=== PATIENT | female | born 1970 | race Caucasian/White ===

== ENCOUNTER → 2021-01-13 14:55 | Outpatient (BNVA) | payer MEDICARE, MEDICAID, SELFPAY | PROVIDERS: Family Provider Family Medicine; PCP Family Medicine; Visit Provider Nurse Practitioner Family | DX: M25.562 Pain in left knee (principal) | CPT/HCPCS: 73562 ==

== ENCOUNTER 2021-02-03 06:00 | Outpatient (RCR) | payer MEDICARE, MEDICAID, SELFPAY | END 2021-02-05 23:59 | disposition home or self-care (01) | LOC: SPT 06:00 | PROVIDERS: PCP Family Medicine; Referring Provider Nurse Practitioner Family; Visit Provider Nurse Practitioner Family | DX: R29.6 Repeated falls (principal) | CPT/HCPCS: 97110; 97161 ==

== ENCOUNTER 2021-05-20 12:23 | Outpatient (CLI) | payer MEDICARE, MEDICAID, SELFPAY ==
--- NOTE | 2021-05-20 12:35 | XR_ITS ---
WS: [id number] KUB, AP view, 05/20/2021 Clinical Data: STONE Comparison: KUB, 09/10/2019. Findings: No abnormal intraabdominal masses are seen. There is no dilatated small bowel or evidence of obstruct ion. There are numerous calcifications overlying the left kidney. Fecal material and colon gas obscure det ail over both kidneys. There are phleboliths in the true pelvis. There are clips in the right upper q uadrant from a cholecystectomy. XR/XR KUB [id number] Impression: 1. No change in calcifications overlying left kidney. 2. Moderate amount of fecal material throughout the colon.
== END 2021-05-20 12:24 | disposition home or self-care (01) ==
PROVIDERS: PCP Family Medicine; Visit Provider Nurse Practitioner Family
DX: N20.1 Calculus of ureter (principal); N20.2 Calculus of kidney with calculus of ureter
CPT/HCPCS: 74018; 81003; 87086

== ENCOUNTER 2021-11-29 19:36 | Inpatient (IN) | payer MEDICARE, MEDICAID, SELFPAY ==
[2021-11-29 19:39] VITALS: BP 102/79; PULSE 110; RESP 18; TEMP 39.5; O2SAT 96; BMI 28.3
--- NOTE | 2021-11-29 19:39 | XRR_ITS ---
PROCEDURE INFORMATION: Exam: XR Chest Exam date and time: 11/29/2021 7:39 PM Age: 51 years old Clinical indication: Pain; Chest pressure; Prior surgery; Surgery date: 6+ months; Surgery type: Pacer defibulator; Additional info: Cp TECHNIQUE: Imaging protocol: XR of the chest. Views: 1 view. COMPARISON: CR Chest 1 [place] [id number] 03/14/2019 2:43 PM FINDINGS: Tubes, catheters and devices: Pacemaker. Lungs: See Heart/Mediastinum finding. Pleural spaces: Unremarkable. No pleural effusion. No pneumothorax. Heart/Mediastinum: Cardiomegaly and mild pulmonary vascular congestion. Bones/joints: Unremarkable. XR/XR chest 1V portable [id number] IMPRESSION: Cardiomegaly and mild pulmonary vascular congestion.
--- NOTE | 2021-11-29 19:40 | ECG_ITS ---
[facility] Test Date: 2021-11-29 Pat Name: Elena Pulliam Department: Room: Gender: Female Inside Account Representative: : 1970 Requested By: Marc Mora Order Number: [id number] Arlette MD: Pola Ferrera M.D. Measurements Intervals [place] Rate: 104 P: 101 MI: 153 QRS: -71 QRSD: 138 T: 74 QT: 381 QTc: 503 Interpretive Statements SINUS TACHYCARDIA LEFT AXIS DEVIATION [QRS AXIS < -30] INTRAVENTRICULAR CONDUCTION DELAY [130+ ms QRS DURATION] Compared to ECG 03/14/2019 16:30:51 Sinus rhythm no longer present T-wave abnormality no longer present Electronically Signed On 11-29-2021 22:16:27 TRUCK WASHER by Pola Ferrera M.D. [id number]
[2021-11-29] MEDS: sodium chloride 0.9% 1,000 ML 999 ML IV ×2 (19:50→23:00)
[2021-11-29] MEDS: acetaminophen 500 mg Tablet 1000 MG PO (19:50)
--- NOTE | 2021-11-29 19:50 | W.ED.CHESTPA ---
HPI - Chest Pain General: Chief Complaint: Chest Pain Stated Complaint: CP Time Seen by Provider: 11/29/21 19:39 Source: patient and EMS Mode of arrival: EMS Limitations: no limitations History of Present Illness: 51-year-old female states that over the last 12 hours she been having a sharp pain in the center of her chest along with her upper abdomen. States been constant nature rates it a 6 out of 10 denies any shortness of breath denies any cough she does have a fever nurse checked a temp it was 103 but I did a recheck that was oral that was 100.7. She had no vomiting no diarrhea she denies any worsening improving factors. Associated symptoms: Reports abdominal pain, dyspnea and fever(s) Review of Systems Const: Reports: fever(s) and chills Eyes: Denies: blurry vision or eye discomfort ENMT: Denies: throat pain or dental pain Card: Reports: chest pain Resp: Reports: dyspnea GI: Reports: abdominal pain : Denies: dysuria Musc: Denies: neck pain or back pain Skin/Breast: Denies: rash Neuro: Denies: headache(s) Psych: Denies: depression Cedric/Lymph: Denies: easy bruising All/Imm: Denies: urticaria PFSH ED PFSH: Medical History CHF (congestive heart failure) HTN (hypertension) ICD (implantable cardioverter-defibrillator) battery depletion Renal stones Family History Father , AT AGE 77 CAD (coronary artery disease) Cancer lung cancer Mother , AT AGE 60 Cancer OVARIAN Social History Second hand smoke exposure: Yes Alcohol intake: never Lives independently: Yes Marital status: service: No Current occupational status: disabled History of recent travel: No Current gender identity: Female Physical Exam Const: COMMON NORMALS: no acute distress, patient oriented x3 and healthy appearing HENMT: COMMON NORMALS: normocephalic and atraumatic HEAD & SCALP: normocephalic and atraumatic Eye: COMMON NORMALS: Equal, round and reactive pupils present and EOMs intact bilaterally PUPIL: Yes Equal, round and reactive pupils present Neck/C-Spine: COMMON NORMALS: full ROM and supple Chest: COMMONS NORMALS: normal inspection of the chest and normal palpation of entire chest wall Resp: COMMON NORMALS: normal respiratory effort, No retractions, No use of accessory muscles and clear to auscultation bilaterally AUSCULTATION: clear to auscultation bilaterally Cardio: COMMON NORMALS: regular rate, regular rhythm and No murmurs present (Cardio) RATE: regular rate RHYTHM: regular rhythm GI: COMMON NORMALS: Normal to inspection, nondistended, normoactive bowel sounds present, Soft to palpation, non-tender and no masses PALPATION: Yes Soft to palpation Extremity: COMMON NORMALS: normal to inspection and full ROM Neuro: COMMON NORMALS: patient oriented x3, moves all extremities and no focal motor deficits Psych: COMMON NORMALS: mental status grossly normal, Normal thought process present and cooperative THOUGHT PROCESS: Normal thought process present Skin: COMMON NORMALS: no rashes or lesions noted and no wounds GENERAL SKIN EXAM: no rashes or lesions noted Course Vital Signs: Vital signs: Vital Signs Temperature 100.7 F H 11/29/21 20:09 Pulse Rate 92 11/29/21 22:35 Respiratory Rate 16 11/29/21 22:35 Blood Pressure 96/46 11/29/21 22:35 Pulse Oximetry 96 11/29/21 22:35 MDM - Chest Pain Medical Decision Making Kidney stones with hydronephrosis in the left ureter along with acute cystitis. Patient's blood pressure here been stable I spoke to Dr. Austin who is taken the patient to the OR for stent placement patient admitted to Dr. Dejesus. Lab Data : 11/29/21 19:45 11/29/21 19:45 Radiology Impressions Chest X-Ray 11/29/21 19:39 IMPRESSION: Cardiomegaly and mild pulmonary vascular congestion. Abdomen/Pelvis CT 11/29/21 20:58 IMPRESSION: 1. Numerous stacked left ureteral stones resulting in hydroureteronephrosis. 2. Vague indeterminate liver lesion is new from comparison. There may be focal capsular retraction at the site of lesion. Malignant lesion cannot be excluded. 3. Recommend contrast enhanced MRI liver correlation. Laboratory Results WBC 12.8 10^3/uL (4.0-10.0) H 11/29/21 19:45 RBC 3.39 10^6/uL (4.1-5.3) L 11/29/21 19:45 Hgb 12.0 g/dL (11.5-15.3) 11/29/21 19:45 Hct 35.5 % (37.0-47.0) L 11/29/21 19:45 MCV 104.7 fl (81-99) H 11/29/21 19:45 MCH 35.4 pg (28.0-34.0) H 11/29/21 19:45 MCHC 33.8 g/dL (30.0-36.0) 11/29/21 19:45 RDW 12.6 % (12.1-15.1) 11/29/21 19:45 Plt Count 177 10^3/cmm (130-400) 11/29/21 19:45 MPV 11.2 fL (7.4-10.4) H 11/29/21 19:45 Neut % (Auto) 78.3 % 11/29/21 19:45 Lymph % (Auto) 12.6 % 11/29/21 19:45 [place] % (Auto) 7.3 % 11/29/21 19:45 Eos % (Auto) 0.7 % 11/29/21 19:45 Baso % (Auto) 0.4 % 11/29/21 19:45 Neut # (Auto) 10.05 10^3/uL (1.8-7.7) H 11/29/21 19:45 Lymph # (Auto) 1.6 10^3/uL (0.8-4.8) 11/29/21 19:45 [place] # (Auto) 0.9 10^3/uL (0.2-0.9) 11/29/21 19:45 Eos # (Auto) 0.1 10^3/uL (0.0-0.8) 11/29/21 19:45 Baso # (Auto) 0.1 10^3/uL (0.0-0.1) 11/29/21 19:45 Nucleated RBC % (auto) 0 % 11/29/21 19:45 Nucleated RBCs # 0.0 /100WBC 11/29/21 19:45 Sodium 138 mmol/L (136-145) 11/29/21 19:45 Potassium 3.9 mmol/L (3.5-5.1) 11/29/21 19:45 Chloride 105 mmol/L (98-107) 11/29/21 19:45 Carbon Dioxide 19 mmol/L (22-29) L 11/29/21 19:45 Anion Gap 17.9 (5-19) 11/29/21 19:45 BUN 10 mg/dL (6-20) 11/29/21 19:45 Creatinine 0.7 mg/dL (0.5-0.9) 11/29/21 19:45 GFR Calculation 88.2 mL/min (90-130) L 11/29/21 19:45 Glucose 96 mg/dL (65-115) 11/29/21 19:45 Calculated Osmolality 285 mOsm/kg (285-295) 11/29/21 19:45 Lactate 1.5 mmol/L (0.5-2.2) 11/29/21 19:45 Calcium 8.8 mg/dL (8.5-10.5) 11/29/21 19:45 Total Bilirubin 0.5 mg/dL (0.15-1.2) 11/29/21 19:45 AST 13 U/L (0-32) 11/29/21 19:45 ALT 15 U/L (0-33) 11/29/21 19:45 Alkaline Phosphatase 82 IU/L (35-105) 11/29/21 19:45 Troponin T Baseline 8 ng/L (0-10) 11/29/21 19:45 Troponin T 120 Minute 6.61 ng/L (0-10) 11/29/21 21:29 Delta Troponin T -1.39 ABS# (0-10) L 11/29/21 21:29 Total Protein 6.4 g/dL (6.6-8.7) L 11/29/21 19:45 Albumin 4.1 g/dL (3.5-5.2) 11/29/21 19:45 Globulin 2.3 g/dL (1.3-4.6) 11/29/21 19:45 Lipase 21 U/L (13-60) 11/29/21 19:45 Lipase Cancelled 11/29/21 19:45 Urine Color Yellow (Yellow) 11/29/21 21:10 Urine Appearance Hazy (CLEAR) A 11/29/21 21:10 Urine pH 5 (5-7) 11/29/21 21:10 Ur Specific [place] 1.015 (1.005-1.030) 11/29/21 21:10 Urine Protein Neg (Negative) 11/29/21 21:10 Urine Glucose (UA) Norm (Normal) 11/29/21 21:10 Urine Ketones Negative (Negative) 11/29/21 21:10 Urine Blood 3+ (Negative) H 11/29/21 21:10 Urine Nitrate Negative (Negative) 11/29/21 21:10 Urine Bilirubin Neg (Negative) 11/29/21 21:10 Urine Urobilinogen Norm mg/dL (Negative) 11/29/21 21:10 Ur Leukocyte Esterase 2+ (Negative) H 11/29/21 21:10 Urine RBC 25-40 /hpf (0-2) H 11/29/21 21:10 Urine WBC Too numerous to cnt /hpf (0-5) H 11/29/21 21:10 Ur Squamous Epith Cells 25-40 /hpf (0-5) H 11/29/21 21:10 Amorphous Sediment Not Reportable 11/29/21 21:10 Urine Bacteria 2+ /hpf (NONE) H 11/29/21 21:10 SARS-CoV-2 Ag (Rapid) Negative (Negative) 11/29/21 19:55 EKG Data EKG 1: I personally reviewed and interpreted this EKG as follows: EKG interpretation date: 11/29/21 EKG interpretation time: 19:44 Interpretation: sinus tach hr [address] or t wave abnormalities qrs 138 qtc 442 EKG 2: I personally reviewed and interpreted this EKG as follows: EKG interpretation date: 11/29/21 EKG interpretation time: :22 Interpretation: nsr hr [address] or t wave abnormalities qrs 132 qtc 464 Discharge Plan Discharge Patient Disposition: Admitted As Inpatient Clinical Impression: Acute cystitis, Kidney stone, Chest pain Condition: Stable Coding Level of Care Code ED Education And Training Manager for Chg Fwd Exam Comprehensive
[2021-11-29 19:57] LABS: Basophils # 0.1 10^3/uL (0.0-0.1); Basophils % 0.4 %; Eosinophils # 0.1 10^3/uL (0.0-0.8); Eosinophils % 0.7 %; Hematocrit 35.5 % (37.0-47.0); Lymphocytes # 1.6 10^3/uL (0.8-4.8); Lymphocytes % 12.6 %; Mean Corpuscular HGB Conc 33.8 g/dL (30.0-36.0); Mean Corpuscular Hemoglobin 35.4 pg (28.0-34.0); Mean Corpuscular Volume 104.7 fl (81-99); Mean Platelet Volume 11.2 fL (7.4-10.4); Monocytes # 0.9 10^3/uL (0.2-0.9); Monocytes % 7.3 %; Neutrophils # 10.05 10^3/uL (1.8-7.7); Neutrophils % 78.3 %; Nucleated Red Blood Cells % 0 %; Platelet Count 177 10^3/cmm (130-400); Red Blood Count 3.39 10^6/uL (4.1-5.3); Red Cell Distribution Width 12.6 % (12.1-15.1); White Blood Count 12.8 10^3/uL (4.0-10.0)
[2021-11-29 20:09] VITALS: BP 104/67; PULSE 99; RESP 14; TEMP 38.2; O2SAT 92
--- NOTE | 2021-11-29 20:10 | PC.NURSE ---
I have placed bedside commode and urine specimen collection cup in room. Pt. states that she will let me know when she can go .
[2021-11-29 20:16] LABS: Lactate (Lactic Acid level) 1.5 mmol/L (0.5-2.2)
[2021-11-29 20:17] LABS: Alanine Aminotransferase 15 U/L (0-33); Albumin Level 4.1 g/dL (3.5-5.2); Alkaline Phosphatase 82 IU/L (35-105); Anion Gap 17.9 (5-19); Aspartate Amino Transferase 13 U/L (0-32); Blood Urea Nitrogen 10 mg/dL (6-20); Calcium 8.8 mg/dL (8.5-10.5); Carbon Dioxide 19 mmol/L (22-29); Chloride 105 mmol/L (98-107); Globulin 2.3 g/dL (1.3-4.6); Glomerular Filtration Rate 88.2 mL/min (90-130); Glucose 96 mg/dL (65-115); Lipase 21 U/L (13-60); Osmolality Calculated 285 mOsm/kg (285-295); Potassium 3.9 mmol/L (3.5-5.1); Sodium 138 mmol/L (136-145); Total Bilirubin 0.5 mg/dL (0.15-1.2); Total Protein 6.4 g/dL (6.6-8.7)
[2021-11-29 20:22] LABS: SARS Covid-2 Antigen Negative (Negative)
[2021-11-29 20:24] LABS: Troponin(5th) Baseline 8 ng/L (0-10)
--- NOTE | 2021-11-29 20:58 | CTR_ITS ---
PROCEDURE INFORMATION: Exam: CT Abdomen And Pelvis With Contrast Exam date and time: 11/29/2021 8:58 PM Age: 51 years old Clinical indication: Abdominal pain; Localized; Lower; Prior surgery; Surgery type: Gb; Additional info: Abd pain TECHNIQUE: Imaging protocol: Computed tomography of the abdomen and pelvis with contrast. Radiation optimization: All CT scans at this facility use at least one of these dose optimization techniques: automated exposure control; mA and/or kV adjustment per patient size (includes targeted exams where dose is matched to clinical indication); or iterative reconstruction. Contrast material: OMNI 300; Contrast volume: 95 ml; Contrast route: INTRAVENOUS (IV); COMPARISON: [place] Abdomen/[place] o [id number] 08/01/2018 1:51 PM RADIATION DOSE METRICS: Total DLP (mGy-cm): 1677.75 FINDINGS: Tubes, catheters and devices: Cardiac leads in the right heart chambers. Liver: In the right posterior liver there is a vague subcapsular low-attenuation lesion new from prior which measures 3.1 cm x 2.9 cm on axial series 2, image 22. Gallbladder and bile ducts: Cholecystectomy. Nondilated biliary system. Pancreas: Normal. No ductal dilation. Spleen: Normal. No splenomegaly. Adrenal glands: Normal. No mass. Kidneys and ureters: Atrophic renal parenchymal changes bilaterally. Left-sided hydroureteronephrosis is present. There are numerous stones stacked in the proximal left ureter conspicuous on coronal image 28. Stomach and bowel: Unremarkable. No obstruction. No mucosal thickening. Appendix: No evidence of appendicitis. Intraperitoneal space: Unremarkable. No free air. No significant fluid collection. Vasculature: Diffuse atherosclerosis. No aneurysm. Lymph nodes: Unremarkable. No enlarged lymph nodes. Urinary bladder: Unremarkable as visualized. Reproductive: Unremarkable as visualized. Bones/joints: Unremarkable. No acute fracture. Soft tissues: Unremarkable. CT/CT abdomen pelvis w con* [id number] IMPRESSION: 1. Numerous stacked left ureteral stones resulting in hydroureteronephrosis. 2. Vague indeterminate liver lesion is new from comparison. There may be focal capsular retraction at the site of lesion. Malignant lesion cannot be excluded. 3. Recommend contrast enhanced MRI liver correlation.
[2021-11-29 21:11] VITALS: PULSE 99; RESP 17; O2SAT 96
[2021-11-29 21:25] LABS: Add Urine Microscopic? YES; Bilirubin Urine Neg (Negative); Blood Urine 3+ (Negative); Glucose Urine UA Norm (Normal); Ketones Urine Negative (Negative); Leukocyte Esterase Urine 2+ (Negative); Nitrate Urine Negative (Negative); Protein Urine Neg (Negative); RBC Urine 25-40 /hpf (0-2); Specific Gravity, Urine 1.015 (1.005-1.030); Squamous Epithelial Cell Urine 25-40 /hpf (0-5); Urine Appearance Hazy (CLEAR); Urine Color Yellow (Yellow); Urobilinogen Urine Norm (Negative); WBC Urine TOO NUMEROUS TO CNT /hpf (0-5); pH Urine 5 (5-7)
[2021-11-29 21:26] LABS: Add Urine Culture? No; Bacteria Urine 2+ /hpf
[2021-11-29] MEDS: iohexol 300 mg/mL 100 mL Btl IV (21:33)
--- NOTE | 2021-11-29 21:40 | ECG_ITS ---
[facility] Test Date: 2021-11-29 Pat Name: Elena Pulliam Department: Room: Gender: Female Model Maker Plaster: : 1970 Requested By: Marc Mora Order Number: [id number] Arlette MD: Pola Ferrera M.D. Measurements Intervals [place] Rate: 97 P: 66 PA: 148 QRS: -65 QRSD: 132 T: 76 QT: 409 QTc: 522 Interpretive Statements SINUS RHYTHM INTRAVENTRICULAR CONDUCTION DELAY [130+ ms QRS DURATION] Compared to ECG 11/29/2021 19:44:45 Sinus tachycardia no longer present Left-axis deviation no longer present Electronically Signed On 11-29-2021 22:19:03 HIDE AND SKIN CLASSER by Pola Ferrera M.D. [id number]
[2021-11-29 21:54] LABS: Troponin 5 2HR 6.61 ng/L (0-10)
[2021-11-29 21:55] LABS: Troponin 5 2HR Delta -1.39 ABS# (0-10)
[2021-11-29] MEDS: cefTRIAXone 1,000 MG in sodium chloride 0.9% (plus) 50 ML 100 MG IV (22:22)
[2021-11-29 22:35] VITALS: BP 96/46; PULSE 92; RESP 16; O2SAT 96
[2021-11-29 23:22] VITALS: BP 103/57; PULSE 91; RESP 18; O2SAT 93
--- NOTE | 2021-11-29 23:25 | PM.CONSULT ---
Providers/Reason For Consult Consulting Physician/Specialty*: Austin/urology Reason for Consult*: Obstructive pyelonephritis, multiple left ureteral calculi Requesting Physician: Dr. Dejesus Primary Care Provider: Elena Gray MD History of Present Illness History of Present Illness Elena Pulliam is a 51 year old female well-known to me for history of stones as well as recurrent UTIs. Her last office visit was May 2021. She failed to keep her June scheduled visit. She was known to have multiple left renal calculi. There was no evidence of ureteral calculi at that time. Urine was infected and she was placed on Bactrim. Culture was equivocal. Was scheduled to follow-up in 2 weeks but failed to do so. Presented to the emergency tonight with complaints of onset of left flank pain and chest pain beginning today. Was found to have a fever >103. Work-up in the emergency department showed evidence of UTI, CT scan showing row of stones in the left mid ureter with obstructive change. White count was elevated. Blood pressure was on the low side of normotensive. Complained of typical left flank pain consistent with stone. Also is having rigors and chills She is being admitted emergently to the operating room for cystoscopy and left ureteral stent placement. I was consulted for stent placement. She has additional comorbidities: CHF, hypertension, cardiomyopathy, status post placement of ICD, recurrent urolithiasis and UTIs. Review of Systems Const: Reports: fever(s), chills and malaise Eyes: Denies: change in vision or eye discharge ENMT: Denies: hoarseness Card: Reports: chest pain; Denies: palpitations Resp: Denies: dyspnea or productive cough GI: Reports: abdominal pain, nausea, vomiting, constipation and bloating : Reports: flank pain and dysuria Musc: Denies: joint redness or joint warmth Skin/Breast: Denies: rash or skin tenderness Neuro: Denies: confusion, Slurred speech present or seizure-like activity Psych: Reports: anxiety Endo: Denies: flushing All/Imm: Denies: urticaria or acute wheezing Medications/Allergies Home Medications Medication Instructions Recorded Confirmed Last Taken Type citalopram 40 mg tablet 40 mg PO BEDTIME 01/31/20 11/30/21 Unknown History zolpidem 10 mg tablet 10 mg PO BEDTIME tab 01/31/20 11/30/21 Unknown History carvedilol 25 mg tablet 50 mg PO BID #360 tab 01/04/21 11/30/21 Unknown Rx aspirin 81 mg tablet,delayed 162 mg PO QAM tab 01/20/21 11/30/21 Unknown History release (Adult Low Dose Aspirin) isosorbide mononitrate 30 mg 15 mg PO BID #90 tab 01/20/21 11/30/21 Unknown Rx tablet,extended release 24 hr nitroglycerin 0.4 mg sublingual 0.4 mg SUBLINGUAL Q5M PRN #25 tab 01/20/21 11/30/21 Unknown Rx tablet (Nitrostat) ferrous sulfate 325 mg (65 mg 325 mg PO QAM 07/22/21 11/30/21 Unknown History iron) tablet spironolactone 25 mg tablet 12.5 mg PO DAILY #30 tab 11/08/21 11/30/21 Unknown Rx cyanocobalamin (vitamin B-12) 50 50 mcg PO QAM 11/30/21 11/30/21 Unknown History mcg tablet (Vitamin B-12) furosemide 20 mg tablet (Lasix) 10 mg PO DAILY PRN 11/30/21 11/30/21 Unknown History hydrocodone 5 mg-acetaminophen 325 1 tab PO QID PRN 11/30/21 11/30/21 Unknown History mg tablet levalbuterol tartrate 45 2 inh INHALATION Q6H PRN 11/30/21 11/30/21 Unknown History mcg/actuation aerosol inhaler lisinopril 20 mg tablet 20 mg PO BID 11/30/21 11/30/21 Unknown History montelukast 10 mg tablet 10 mg PO QAM 11/30/21 11/30/21 Unknown History tamsulosin 0.4 mg capsule 0.4 mg PO BEDTIME 11/30/21 11/30/21 Unknown History Allergies Allergy/AdvReac Type Severity Reaction Status Date / Time egg Allergy unknown Verified 11/30/21 13:16 morphine Allergy Unknown Verified 11/30/21 13:16 Opioids - Morphine Analogues Allergy unknown Verified 07/22/21 13:57 Current Medications Generic Name Dose Route Start Last Admin Trade Name Freq PRN Reason Stop Dose Admin Sodium Chloride 1,000 mls @ 999 mls/hr 11/29/21 22:53 11/29/21 23:00 Sodium Chloride 0.9% IV 11/29/21 23:53 999 mls/hr .Q1H1M ONE Administration PFSH Acute PFSH: Medical History (Updated 11/30/21 @ 07:13 by Beryl Dejesus MD) Calculus of kidney with calculus of ureter CHF (congestive heart failure) History of TIA (transient ischemic attack) HTN (hypertension) ICD (implantable cardioverter-defibrillator) battery depletion Obstructive pyelonephritis Renal mass Renal stones Ureteral calculus Surgical History (Updated 11/30/21 @ 07:13 by Beryl Dejesus MD) Status post cholecystectomy Status post placement of cardiac pacemaker Family History Father , AT AGE 77 CAD (coronary artery disease) Cancer lung cancer Mother , AT AGE 60 Cancer OVARIAN Social History Second hand smoke exposure: Yes Alcohol intake: never Lives independently: Yes Marital status: service: No Current occupational status: disabled History of recent travel: No Current gender identity: Female Vitals/I&O/Wt Last Vital Signs Temp 100.7 F H 11/29/21 20:09 Pulse 91 11/29/21 23:22 Resp 18 11/29/21 23:22 BP 103/57 11/29/21 23:22 Pulse Ox 93 11/29/21 23:22 11/29/21 11/29/21 11/30/21 14:59 22:59 06:59 Intake Total 1050 / 1050 Balance 1050 / 1050 Weight last 48 hrs Weight 170 lb Physical Exam Const: COMMON NORMALS: patient oriented x3; apparent distress and negative for healthy appearing OTHER: Appears quite uncomfortable. Shaking with chills. HENMT: COMMON NORMALS: normocephalic and atraumatic HEAD & SCALP: normocephalic and atraumatic Eye: COMMON NORMALS: conjunctivae normal and negative for no scleral icterus CONJUNCTIVA: Yes conjunctivae normal Neck/C-Spine: OTHER: Good range of motion Lymph: OTHER: No lymphadenopathy Resp: OTHER: No wheezes GI: OTHER: Abdomen is not distended tender in left upper quadrant left CVA : OTHER: Bladder nondistended. Left CVA tenderness. Normal external female genitalia no obvious discharge. No lesions Back/Pelvis: OTHER: Left CVA tenderness Extremity: NARRATIVE EXTREMITY EXAM: Good range of motion Neuro: COMMON NORMALS: patient oriented x3 Psych: OTHER: Anxiety. Engaged, calm Skin: OTHER: Multiple tattoos. No jaundice. No rashes Data : 12/01/21 02:13 12/01/21 02:13 Micro: Microbiology 11/29/21 21:29 Blood Culture - Preliminary Blood SPECIMEN COLLECTED 11/29/21 19:45 Blood Culture - Preliminary Blood SPECIMEN COLLECTED A&P Assessment and plan (1) Left ureteral calculus: Multiple stones left mid ureter. Obstructive changes on CT scan. Infected urine. To the OR emergently. Informed consent obtained. Status: Acute (2) Obstructive pyelonephritis: Elevated white count, pyuria, fever of 103+, low normal blood pressure. Status: Acute (3) Pyuria: Status: Acute (4) Cardiomyopathy: Status: Acute Qualifiers: Cardiomyopathy type: other Qualified Code(s): I42.8 - Other cardiomyopathies (5) HTN (hypertension): Status: Acute Qualifiers: Hypertension type: essential hypertension Qualified Code(s): I10 - Essential (primary) hypertension (6) CHF (congestive heart failure): Status: Acute Qualifiers: Heart failure chronicity: chronic Heart failure type: diastolic Qualified Code(s): I50.32 - Chronic diastolic (congestive) heart failure (7) ICD (implantable cardioverter-defibrillator) battery depletion: Status: Acute Coding Level of Care Code Acute Refrigeration Service Technician for Chg Fwd Exam Expanded Problem Focused Diagnoses Pyuria R82.81 Obstructive pyelonephritis N11.1 Cardiomyopathy I42.8 Cardiomyopathy type: other HTN (hypertension) I10 Hypertension type: essential hypertension CHF (congestive heart failure) I50.32 Heart failure chronicity: chronic Heart failure type: diastolic ICD (implantable cardioverter-defibrillator) battery depletion Z45.02 Left ureteral calculus N20.1
[2021-11-29] MEDS: HYDROmorphone 1 mg/mL INJ 1 mL IVP (23:41)
--- NOTE | 2021-11-29 23:46 | P.ANESASSM_ITS ---
Pre-Anesthetic Assessment Height/Weight: Height 1.65 m Weight 77.111 kg Temp Pulse Resp BP Pulse Ox 100.7 F H 91 18 103/57 93 11/29/21 20:09 11/29/21 23:22 11/29/21 23:22 11/29/21 23:22 11/29/21 23:22 Preop Diagnosis: ureteral stones Operation Date: 11/29/21 23:35 Proposed Procedures p Cystoscopy(Not Applicable) - Phillip Austin MD s Ureteral Stent Placement(Not Applicable) - Phillip Austin MD Familial anesthetic complications: None Was Beta Grady taken within 24 hours: Yes Was Clonidine taken within 24 hours: N/A Last intake: No food or drink since 0800, had sip of water w/ tylenol Social Tobacco and No alcohol Exam alert, oriented x 3, clear to auscultation bilaterally and regular rate & rhythm (tachycardic) Airway Mallampati: Class II Dentition: other (multiple missing) CV/HEM Hypertension ICD for EF of 20%, most recently EF of 55%, will have magnet available for placement over ICD if electrocautery used GERRI GI Gastroesophageal Reflux Disease Neuropsych Transient Ischemic Attack Anesthetic Plan ASA status: 3E Anesthesia: General Medications/Allergies Home Medications Medication Instructions Recorded Confirmed Last Taken Type citalopram 40 mg tablet 40 mg PO DAILY 01/31/20 07/22/21 Unknown History furosemide 40 mg tablet (Lasix) 40 mg PO DAILY PRN 01/31/20 07/22/21 Unknown History omeprazole 40 mg capsule,delayed 40 mg PO DAILY 01/31/20 07/22/21 Unknown History release zolpidem 10 mg tablet 10 mg PO DAILY tab 01/31/20 07/22/21 Unknown History carvedilol 25 mg tablet 50 mg PO BID #360 tab 01/04/21 07/22/21 Unknown Rx aspirin 81 mg tablet,delayed 162 mg PO DAILY tab 01/20/21 07/22/21 Unknown History release (Adult Low Dose Aspirin) isosorbide mononitrate 30 mg 15 mg PO BID #90 tab 01/20/21 07/22/21 Unknown Rx tablet,extended release 24 hr nitroglycerin 0.4 mg sublingual 0.4 mg SUBLINGUAL Q5M PRN #25 tab 01/20/21 07/22/21 Unknown Rx tablet (Nitrostat) sulfamethoxazole 800 1 tab PO BID #30 tab 05/20/21 05/20/21 Unknown Rx mg-trimethoprim 160 mg tablet ferrous sulfate 325 mg (65 mg 325 mg PO DAILY 07/22/21 07/22/21 Unknown History iron) tablet vitamin B complex (B 1 tab PO DAILY 07/22/21 07/22/21 Unknown History Complex-Vitamin B12) lisinopril 20 mg tablet See Rx Instructions .ROUTE 11/03/21 Unknown Rx .COMPLEX #180 tab tamsulosin 0.4 mg capsule See Rx Instructions .ROUTE 11/04/21 Unknown Rx .COMPLEX #30 cap spironolactone 25 mg tablet 12.5 mg PO DAILY #30 tab 11/08/21 Unknown Rx Allergies Allergy/AdvReac Type Severity Reaction Status Date / Time egg Allergy unknown Verified 07/22/21 13:57 Opioids - Morphine Analogues Allergy unknown Verified 07/22/21 13:57 Current Medications Generic Name Dose Route Start Last Admin Trade Name Freq PRN Reason Stop Dose Admin Sodium Chloride 1,000 mls @ 999 mls/hr 11/29/21 22:53 11/29/21 23:42 Sodium Chloride 0.9% IV 11/29/21 23:53 Infused .Q1H1M ONE Infusion PFSH Anesthesia Medical History (Updated 11/29/21 @ 23:43 by Phillip Austin MD) CHF (congestive heart failure) HTN (hypertension) ICD (implantable cardioverter-defibrillator) battery depletion Obstructive pyelonephritis Renal stones Ureteral calculus Family History Father , AT AGE 77 CAD (coronary artery disease) Cancer lung cancer Mother , AT AGE 60 Cancer OVARIAN Social History Second hand smoke exposure: Yes Alcohol intake: never Lives independently: Yes Marital status: service: No Current occupational status: disabled History of recent travel: No Current gender identity: Female Data Anesthesia : 11/29/21 19:45 11/29/21 19:45 Short CBC 11/29/21 Range/Units 19:45 WBC 12.8 H (4.0-10.0) 10^3/uL Hgb 12.0 (11.5-15.3) g/dL Hct 35.5 L (37.0-47.0) % MCV 104.7 H (81-99) fl Plt Count 177 (130-400) 10^3/cmm Neut % (Auto) 78.3 % Neut # (Auto) 10.05 H (1.8-7.7) 10^3/uL BMP 11/29/21 19:45 Sodium 138 Potassium 3.9 Chloride 105 Carbon Dioxide 19 L BUN 10 Creatinine 0.7 Glucose 96 Calcium 8.8 Cardiac Enzymes 11/29/21 11/29/21 Range/Units 19:45 21:29 Troponin T Baseline 8 (0-10) ng/L Troponin T 120 Minute 6.61 (0-10) ng/L Delta Troponin T -1.39 L (0-10) ABS# Liver Function 11/29/21 Range/Units 19:45 Total Bilirubin 0.5 (0.15-1.2) mg/dL AST 13 (0-32) U/L ALT 15 (0-33) U/L Alkaline Phosphatase 82 (35-105) IU/L Albumin 4.1 (3.5-5.2) g/dL Urine 11/29/21 Range/Units 21:10 Urine Color Yellow (Yellow) Urine Appearance Hazy A (CLEAR) Urine pH 5 (5-7) Ur Specific [place] 1.015 (1.005-1.030) Urine Protein Neg (Negative) Urine Glucose (UA) Norm (Normal) Urine Ketones Negative (Negative) Urine Nitrate Negative (Negative) Urine Bilirubin Neg (Negative) Ur Leukocyte Esterase 2+ H (Negative) Urine RBC 25-40 H (0-2) /hpf Urine WBC Too numerous to cnt H (0-5) /hpf COVID Results 11/29/21 19:55 SARS-CoV-2 Ag (Rapid) Negative Microbiology 11/29/21 21:29 Blood Culture - Preliminary Blood SPECIMEN COLLECTED 11/29/21 19:45 Blood Culture - Preliminary Blood SPECIMEN COLLECTED Cardiac Studies: No Data to Display
--- NOTE | 2021-11-29 23:47 | PC.NURSE ---
Pt. having pain in left shoulder from chronic condition. Pt. states that she is having epigastric pain , pt. was given dilaudid.
[2021-11-29 23:48] VITALS: BP 121/58; PULSE 94; RESP 15; O2SAT 91
--- NOTE | 2021-11-29 23:52 | PC.NURSE ---
Surgery staff at bedside.
--- NOTE | 2021-11-29 23:59 | P.OP_ITS ---
Operative Report Date of procedure: November 29, 2021 Pre-op diagnosis: Preop Diagnosis multiple LEFT ureteral stones with obstructive pyelonephritis Post-op diagnosis: multiple LEFT ureteral stones with obstructive pyelonephritis Procedure done: 1. Cystoscopy with left ureteral stent placement (7 [place] by 26 cm double-pigtail without string) Implants: Left ureteral stent Specimens removed/disposition: None Pathology: None Surgeon: Geovanna Estimated blood loss: Minimal Urine output: Not measured Complications: None She remained hemodynamically stable throughout. She was febrile. Plan was to send her to the floor after observation in the recovery room first Findings: Somewhere between 7 and 10 left ureteral calculi with obstruction. Brief History: Ms. Pulliam is a very pleasant 51-year-old white female well-known to me for history of recurrent urolithiasis and recent current infections. She presented tonight with evidence of obstructive pyelonephritis as manifested by left flank pain, fever of over 103, elevated white count, tachycardia, and CT scan demonstrating multiple stones obstructing in the left ureter as well as urinalysis consistent with UTI. She was recommended to go to the operating room emergently for stent placement, treatment of the infection with delayed treatment of the stones after recovery of infection. Procedure: After emergent evaluation examination and obtaining of informed consent she was taken to the operating suite on 11/29/2021 where general anesthesia was administered without difficulty after appropriate timeout was performed, SCDs confirmed to be functioning, preoperative antibiotics administered, beta-mariel protocol. Prepped and draped in usual sterile fashion in dorsolithotomy position paying careful attention to avoiding pressure points 21 [place] cystoscope with 30 degree lens was introduced into the urethra meatus and advanced into the bladder under videoscopy. Bladder was systematically examined. No gross abnormality was identified A flexible tip guidewire was advanced up the left ureter easily bypassing the stones curling in the area of the upper pole calyx. A 7 [place] by 26 cm double- pigtail stent was advanced over the guidewire through the cystoscope into appropriate position as confirmed via fluoroscopy and cystoscopy. Bladder was drained with Leger catheter and procedure was completed. She tolerated procedure well without complications and was awakened in the operating room and returned recovery room in stable condition. PLANS: 1. Further treatment per hospitalist service for pyelonephritis possible sepsis 2. Delayed treatment of the stones after infection is cleared
[2021-11-30] VITALS (45 sets, daily range): BP systolic 72–129; BP diastolic 39–71; PULSE 66–113; RESP 3–25; TEMP 36.7–38.3; O2SAT 87–96
--- NOTE | 2021-11-30 01:40 | ECG_ITS ---
[facility] Test Date: 2021-11-30 Pat Name: Elena Pulliam Department: Room: [facility] Gender: Female Public Information Relations Manager: : 1970 Requested By: Marc Moar Order Number: [id number] Arlette MD: Sil Pineda M.D. Measurements Intervals [place] Rate: 86 P: 45 CT: 152 QRS: -58 QRSD: 124 T: -45 QT: 428 QTc: 513 Interpretive Statements SINUS RHYTHM LEFT ANTERIOR FASCICULAR BLOCK POSSIBLE ANTERIOR MYOCARDIAL INFARCTION , OF INDETERMINATE AGE MODERATE T-WAVE ABNORMALITY, CONSIDER LATERAL ISCHEMIA Compared to ECG 11/29/2021 21:22:29 Left anterior fascicular block now present Myocardial infarct finding now present T-wave abnormality now present Possible ischemia now present Intraventricular conduction delay no longer present Electronically Signed On 11-30-2021 17:46:03 TECHNOLOGY INTEGRATION SPECIALIST by Sil Pineda M.D. [id number]
--- NOTE | 2021-11-30 02:39 | PM.HP ---
Providers/Chief Complaint Admitting Physician: Phillip Austin MD Primary Care Provider: Elena Gray MD Chief Complaint: CP History of Present Illness History obtained by discussion with ER physician and chart review. Patient is seen by me postoperatively after stent placement. Currently still sedated after anesthesia. Elena Pulliam is a 51 year old female with a history of recurrent urolithiasis and UTI, presented to the hospital today with chief complaints of flank pain, fever of 103 Fahrenheit, leukocytosis, positive UA, signs of pyelonephritis and a CT abdomen demonstrating multiple stones obstructing the left ureter. She was taken urgently to the OR and had stent placement into the left ureter. Tolerated the procedure well however did become hypotensive with blood pressure down to 72/50, map of 60 for which she needed a push of phenylephrine postoperatively. She is being admitted to the ICU thereafter for close blood pressure monitoring and possible need for pressors thereafter. At this present time she is on 8 L/min via oxygen mask, bilateral lung bases have crackles and there does appear to be some edema around her eyelids. Troponin series with negative delta at 2 hours. Not significantly elevated. EKG is without any acute ST-T wave changes.Patient has a past medical history of nonischemic cardiomyopathy for which she is status post ICD placement and also for hypertension. unable to find a recent echocardiogram in the system. Review of Systems General: Reports: ROS unobtainable due to medical condition and ROS unobtainable due to mental status Medications/Allergies Home Medications Medication Instructions Recorded Confirmed Last Taken Type citalopram 40 mg tablet 40 mg PO DAILY 01/31/20 07/22/21 Unknown History furosemide 40 mg tablet (Lasix) 40 mg PO DAILY PRN 01/31/20 07/22/21 Unknown History omeprazole 40 mg capsule,delayed 40 mg PO DAILY 01/31/20 07/22/21 Unknown History release zolpidem 10 mg tablet 10 mg PO DAILY tab 01/31/20 07/22/21 Unknown History carvedilol 25 mg tablet 50 mg PO BID #360 tab 01/04/21 07/22/21 Unknown Rx aspirin 81 mg tablet,delayed 162 mg PO DAILY tab 01/20/21 07/22/21 Unknown History release (Adult Low Dose Aspirin) isosorbide mononitrate 30 mg 15 mg PO BID #90 tab 01/20/21 07/22/21 Unknown Rx tablet,extended release 24 hr nitroglycerin 0.4 mg sublingual 0.4 mg SUBLINGUAL Q5M PRN #25 tab 01/20/21 07/22/21 Unknown Rx tablet (Nitrostat) sulfamethoxazole 800 1 tab PO BID #30 tab 05/20/21 05/20/21 Unknown Rx mg-trimethoprim 160 mg tablet ferrous sulfate 325 mg (65 mg 325 mg PO DAILY 07/22/21 07/22/21 Unknown History iron) tablet vitamin B complex (B 1 tab PO DAILY 07/22/21 07/22/21 Unknown History Complex-Vitamin B12) lisinopril 20 mg tablet See Rx Instructions .ROUTE 11/03/21 Unknown Rx .COMPLEX #180 tab tamsulosin 0.4 mg capsule See Rx Instructions .ROUTE 11/04/21 Unknown Rx .COMPLEX #30 cap spironolactone 25 mg tablet 12.5 mg PO DAILY #30 tab 11/08/21 Unknown Rx Allergies Allergy/AdvReac Type Severity Reaction Status Date / Time egg Allergy unknown Verified 07/22/21 13:57 Opioids - Morphine Analogues Allergy unknown Verified 07/22/21 13:57 PFSH Acute PFSH: Medical History (Updated 11/30/21 @ 07:13 by Beryl Dejesus MD) Calculus of kidney with calculus of ureter CHF (congestive heart failure) History of TIA (transient ischemic attack) HTN (hypertension) ICD (implantable cardioverter-defibrillator) battery depletion Obstructive pyelonephritis Renal mass Renal stones Ureteral calculus Surgical History (Updated 11/30/21 @ 07:13 by Beryl Dejesus MD) Status post cholecystectomy Status post placement of cardiac pacemaker Family History Father , AT AGE 77 CAD (coronary artery disease) Cancer lung cancer Mother , AT AGE 60 Cancer OVARIAN Social History Second hand smoke exposure: Yes Alcohol intake: never Lives independently: Yes Marital status: service: No Current occupational status: disabled History of recent travel: No Current gender identity: Female Vitals/I&O/Wt Last Vital Signs Temp 100.9 F H 11/30/21 01:10 Pulse 99 11/30/21 02:10 Resp 20 H 11/30/21 02:10 BP 98/53 11/30/21 02:10 Pulse Ox 94 11/30/21 02:10 11/29/21 11/29/21 11/30/21 14:59 22:59 06:59 Intake Total 2049 Output Total 0 / 0 Balance 2049 Weight last 48 hrs Weight 77.111 kg Physical Exam Narrative: GEN: Seen In [facility] post OR, currently still sedated after anesthesia. HEENT: Edema B/L around eyes CVS: S1S2 N, tachycardia HR 110/min RS: B/L crackles on auscultation at lung bases Abd: Soft, nt/nd , bs+ PRODUCT MARKETING CONSULTANT: unable to assess at this time Urinary Catheter Management: Leger Latex: Cath Placed During This Visit: yes Urinary Catheter Date of Insertion: 11/30/21 Urinary Catheter Time of Insertion: 00:30 Data : 11/29/21 19:45 11/30/21 03:16 Micro: Microbiology 11/29/21 21:29 Blood Culture - Preliminary Blood SPECIMEN COLLECTED 11/29/21 19:45 Blood Culture - Preliminary Blood SPECIMEN COLLECTED Other data: Radiology Impressions Abdomen/Pelvis CT 11/29/21 20:58 IMPRESSION: 1. Numerous stacked left ureteral stones resulting in hydroureteronephrosis. 2. Vague indeterminate liver lesion is new from comparison. There may be focal capsular retraction at the site of lesion. Malignant lesion cannot be excluded. 3. Recommend contrast enhanced MRI liver correlation. Laboratory Results WBC 12.8 10^3/uL (4.0-10.0) H 11/29/21 19:45 RBC 3.39 10^6/uL (4.1-5.3) L 11/29/21 19:45 Hgb 12.0 g/dL (11.5-15.3) 11/29/21 19:45 Hct 35.5 % (37.0-47.0) L 11/29/21 19:45 MCV 104.7 fl (81-99) H 11/29/21 19:45 MCH 35.4 pg (28.0-34.0) H 11/29/21 19:45 MCHC 33.8 g/dL (30.0-36.0) 11/29/21 19:45 RDW 12.6 % (12.1-15.1) 11/29/21 19:45 Plt Count 177 10^3/cmm (130-400) 11/29/21 19:45 MPV 11.2 fL (7.4-10.4) H 11/29/21 19:45 Neut % (Auto) 78.3 % 11/29/21 19:45 Lymph % (Auto) 12.6 % 11/29/21 19:45 Wise % (Auto) 7.3 % 11/29/21 19:45 Eos % (Auto) 0.7 % 11/29/21 19:45 Baso % (Auto) 0.4 % 11/29/21 19:45 Neut # (Auto) 10.05 10^3/uL (1.8-7.7) H 11/29/21 19:45 Lymph # (Auto) 1.6 10^3/uL (0.8-4.8) 11/29/21 19:45 Wise # (Auto) 0.9 10^3/uL (0.2-0.9) 11/29/21 19:45 Eos # (Auto) 0.1 10^3/uL (0.0-0.8) 11/29/21 19:45 Baso # (Auto) 0.1 10^3/uL (0.0-0.1) 11/29/21 19:45 Nucleated RBC % (auto) 0 % 11/29/21 19:45 Nucleated RBCs # 0.0 /100WBC 11/29/21 19:45 Sodium 138 mmol/L (136-145) 11/30/21 03:16 Potassium 3.8 mmol/L (3.5-5.1) 11/30/21 03:16 Chloride 110 mmol/L (98-107) H 11/30/21 03:16 Carbon Dioxide 18 mmol/L (22-29) L 11/30/21 03:16 Anion Gap 13.8 (5-19) 11/30/21 03:16 BUN 10 mg/dL (6-20) 11/30/21 03:16 Creatinine 0.7 mg/dL (0.5-0.9) 11/30/21 03:16 GFR Calculation 88.2 mL/min (90-130) L 11/30/21 03:16 Glucose 132 mg/dL (65-115) H 11/30/21 03:16 Calculated Osmolality 287 mOsm/kg (285-295) 11/30/21 03:16 Lactate 1.5 mmol/L (0.5-2.2) 11/29/21 19:45 Calcium 7.9 mg/dL (8.5-10.5) L 11/30/21 03:16 Total Bilirubin 0.4 mg/dL (0.15-1.2) 11/30/21 03:16 AST 17 U/L (0-32) 11/30/21 03:16 ALT 16 U/L (0-33) 11/30/21 03:16 Alkaline Phosphatase 70 IU/L (35-105) 11/30/21 03:16 Troponin T Baseline 8 ng/L (0-10) 11/29/21 19:45 Troponin T 120 Minute 6.61 ng/L (0-10) 11/29/21 21:29 Delta Troponin T -1.39 ABS# (0-10) L 11/29/21 21:29 NT-Pro-B Natriuret Pep 1392 pg/mL (0-125) H 11/30/21 03:16 Total Protein 6.1 g/dL (6.6-8.7) L 11/30/21 03:16 Albumin 3.4 g/dL (3.5-5.2) L 11/30/21 03:16 Globulin 2.7 g/dL (1.3-4.6) 11/30/21 03:16 Lipase 21 U/L (13-60) 11/29/21 19:45 Lipase Cancelled 11/29/21 19:45 Urine Color Yellow (Yellow) 11/29/21 21:10 Urine Appearance Hazy (CLEAR) A 11/29/21 21:10 Urine pH 5 (5-7) 11/29/21 21:10 Ur Specific [place] 1.015 (1.005-1.030) 11/29/21 21:10 Urine Protein Neg (Negative) 11/29/21 21:10 Urine Glucose (UA) Norm (Normal) 11/29/21 21:10 Urine Ketones Negative (Negative) 11/29/21 21:10 Urine Blood 3+ (Negative) H 11/29/21 21:10 Urine Nitrate Negative (Negative) 11/29/21 21:10 Urine Bilirubin Neg (Negative) 11/29/21 21:10 Urine Urobilinogen Norm mg/dL (Negative) 11/29/21 21:10 Ur Leukocyte Esterase 2+ (Negative) H 11/29/21 21:10 Urine RBC 25-40 /hpf (0-2) H 11/29/21 21:10 Urine WBC Too numerous to cnt /hpf (0-5) H 11/29/21 21:10 Ur Squamous Epith Cells 25-40 /hpf (0-5) H 11/29/21 21:10 Amorphous Sediment Not Reportable 11/29/21 21:10 Urine Bacteria 2+ /hpf (NONE) H 11/29/21 21:10 SARS-CoV-2 Ag (Rapid) Negative (Negative) 11/29/21 19:55 A&P Assessment and plan (1) Left ureteral calculus: Status: Acute (2) Obstructive pyelonephritis: Status: Acute (3) Sepsis: Status: Acute (4) HTN (hypertension): Status: Acute Qualifiers: Hypertension type: essential hypertension Qualified Code(s): I10 - Essential (primary) hypertension (5) CHF (congestive heart failure): Status: Acute Qualifiers: Heart failure type: diastolic Heart failure chronicity: chronic Qualified Code(s): I50.32 - Chronic diastolic (congestive) heart failure Plan Patient presenting today as a result of sepsis from obstructive pyelonephritis of the left ureter now status post stent placement. #Sepsis related to obstructive pyelonephritis Meet sepsis criteria by way of fever, leukocytosis, tachycardia and hypotension. Status post left ureteral stent placement with Dr. Austin. Positive UA, pending urine culture Started on piperacillin tazobactam empirically. Blood culture taken prior to onset of antibiotics. Received sepsis bolus in the ER and is currently running fluids post OR. We will discontinue fluids at this time given signs of clinical volume overload. Lasix 20 mg IV push for now. Depending on urine output and blood pressure response may need further doses. #History of congestive heart failure, uncertain at this time if systolic or diastolic, likely acute on chronic per cardiology notes reviewed. Presumably systolic heart failure given that patient is noted to have ischemic cardiomyopathy and an ICD in place. check limited 2d echo Lasix 20 mg IV push as noted above. Discontinue IV fluids Pressor support with Levophed to keep MAP greater than 65 Will obtain chest x-ray and BNP #Hypertension: Currently holding antihypertensives due to hypotension. Transient blood pressure dropped to 72/56 for which patient needed pushes of phenylephrine. Continue to wean down oxygen as tolerated. Monitor urine output, I&O. N.p.o. until more awake, recovers from anesthesia Attestations Medical Necessity Statement*: >2midnight admission anticipated for above defined care Critical Care Time: The high probability of a clinically significant, sudden or life threatening deterioration of the patient's [circulatory,renal,respiratory] system(s) required my full and direct attention, intervention and personal management. The critical care time is as shown. This time is in addition to time spent performing any reported procedures but includes the following: [x] Data and vital sign review and interpretation [x] Patient assessment, examination and intervention [x] Documentation [x] Medication orders and management Critical Care Time (min): 60 Coding Level of Care Code Acute Commutator Repairer for [facility] Fwd Diagnoses Left ureteral calculus N20.1 Obstructive pyelonephritis N11.1 Sepsis A41.9 HTN (hypertension) I10 Hypertension type: essential hypertension CHF (congestive heart failure) I50.32 Heart failure type: diastolic Heart failure chronicity: chronic
[2021-11-30] MEDS: enoxaparin 40 mg/0.4 mL Syringe SUBCUT (02:58)
[2021-11-30] MEDS: FUROsemide 10 mg/mL SDV 2mL 20 MG IVP ×2 (02:58→12:12)
[2021-11-30] MEDS: acetaminophen 325 mg Tablet 650 MG PO ×2 (03:19→12:12)
[2021-11-30] MEDS: piperacillin-tazobactam 3.375 GM in dextrose 5% (plus) 50 ML IV ×3 (03:22→21:10)
--- NOTE | 2021-11-30 04:00 | XR_ITS ---
WS: [id number] Exam: XR chest 1V portable [id number] Date/Time of Exam: 11/30/2021 4:25 AM Reason For Exam: pulmonary edema Comparison 11/29/2021. Mild diffuse bilateral interstitial infiltrates. The lungs are fully expanded. Cardiomediastinal silh ouette is unremarkable. A permanent cardiac pacer is seen over the left chest. Regional bony structur es are intact. XR/XR chest 1V portable [id number] IMPRESSION: 1. Mild diffuse interstitial infiltrates noted bilaterally. This could represen t interstitial pulmonary edema or pneumonia.
[2021-11-30 04:01] LABS: Alanine Aminotransferase 16 U/L (0-33); Albumin Level 3.4 g/dL (3.5-5.2); Alkaline Phosphatase 70 IU/L (35-105); Anion Gap 13.8 (5-19); Aspartate Amino Transferase 17 U/L (0-32); Blood Urea Nitrogen 10 mg/dL (6-20); Calcium 7.9 mg/dL (8.5-10.5); Carbon Dioxide 18 mmol/L (22-29); Chloride 110 mmol/L (98-107); Globulin 2.7 g/dL (1.3-4.6); Glomerular Filtration Rate 88.2 mL/min (90-130); Glucose 132 mg/dL (65-115); Osmolality Calculated 287 mOsm/kg (285-295); Potassium 3.8 mmol/L (3.5-5.1); Sodium 138 mmol/L (136-145); Total Bilirubin 0.4 mg/dL (0.15-1.2); Total Protein 6.1 g/dL (6.6-8.7)
[2021-11-30 04:12] LABS: NT Pro B Type Natriuretic Pept 1392 pg/mL (0-125)
--- NOTE | 2021-11-30 07:09 | USCV_ITS ---
Elena Pulliam Age: 51 Gender: F : 1970 Exam Date: 11/30/2021 07:26 Ordering Phys: Beryl Dejesus MD Technologist: MAGY Exam Location: [facility] [place]: CHF BP: 104 / 54 HR: 79 Rhythm: Sinus Technical Quality: Adequate MEASUREMENTS (Male / Female) Normal Values 2D ECHO LV Diastolic Diameter PLAX 4.6 cm 4.2 - 5.9 / 3.9 - 5.3 cm LV Systolic Diameter PLAX 3.4 cm IVS Diastolic Thickness 0.9 cm 0.6 - 1.0 / 0.6 - 0.9 cm IVS Systolic Thickness 1.3 cm LVPW Diastolic Thickness 1.0 cm 0.6 - 1.0 / 0.6 - 0.9 cm LVPW Systolic Thickness 1.1 cm LVOT Diameter 1.8 cm LV Ejection Fraction 2D Teich 51.1 % LV Ejection Fraction MOD 2C 43.7 % LV Ejection Fraction 2C AL 41.7 % LA Diameter 3.3 cm Aorta at Sinotubular Diameter 2.3 cm M-MODE Aortic Annulus Diameter 3.5 cm LA Ao Ratio MM 1.1 MV E Point Septal Separation 1.8 cm DOPPLER AV Peak Velocity 151.0 cm/s LVOT Peak Velocity 103.0 cm/s AV Area Cont Eq vti 1.8 cm squared AV Area Cont Eq pk 1.8 cm squared MV Area PHT 5.4 cm squared Mitral E to A Ratio 1.0 MV E' Velocity 50.0 cm/s Mitral E to MV E' Ratio 10.4 Mitral E to LV E' Lateral Ratio 9.3 Mitral E to LV E' Septal Ratio 12.2 TR Peak Velocity 149.0 cm/s TR Peak Gradient 8.9 mmHg TV Peak E Velocity 83.0 cm/s Right Atrial Pressure 3.0 mmHg Pulmonary Artery Systolic Pressu 11.9 mmHg FINDINGS Left Ventricle Dyskinetic septum in the anteroseptal segments. LV ejection fraction around 42%. No filling defects were noted Right Ventricle Possibly normal size and ejection fraction. Right Atrium Appears to be of normal size. Left Atrium Could not be visualized well. Mitral Valve Thickened mitral valve. Aortic Valve Thickened aortic valve. Tricuspid Valve Tricuspid valve not well visualized. Pulmonic Valve Pulmonic valve not well visualized. Pericardium No pericardial effusion. Aorta Normal aortic annulus size. CONCLUSIONS This study was performed with the echo contrast Normal LV size with diminished ejection fraction of 42%. Dyskinetic septum and the anteroseptal segments. Thickened aortic valve. Possibly normal RV size and ejection fraction. Normal left atrial size. No pericardial effusion Comparison with the previous study is difficult because of the difference in the technical quality. There may not be a significant difference Dr Michael Hill MD [facility] (Electronically Signed) Final Date: 30 November 2021 10:28 S
[2021-11-30] MEDS: perflutren protein-a microsphr 0.22 mg/mL SDV 3 mL IV (07:57)
[2021-11-30] MEDS: HYDROmorphone 1 mg/mL INJ 1 mL IVP ×3 (08:59→21:22)
[2021-11-30] MEDS: pantoprazole DR 40 mg Tablet PO (09:06)
--- NOTE | 2021-11-30 11:27 | P.PN_ITS ---
Subjective Subjective: Patient was seen this morning, she has minimal abdominal pain complaints, no fevers, no chills, no nausea, no vomiting Vitals/I&O/Wt Last Vital Signs Temp 98.1 F 11/30/21 07:06 Pulse 80 11/30/21 07:06 Resp 19 H 11/30/21 08:59 BP 104/54 11/30/21 07:06 Pulse Ox 96 11/30/21 08:59 11/29/21 11/30/21 11/30/21 22:59 06:59 14:59 Intake Total 2170 / 2170 50 / 50 Output Total 1800 / 1800 1800 / 1800 Balance 370 / 370 -1750 / -1750 Weight last 48 hrs Weight 77.111 kg Physical Exam Const: COMMON NORMALS: no acute distress and patient oriented x3 Resp: COMMON NORMALS: normal respiratory effort, No retractions, No use of accessory muscles and clear to auscultation bilaterally AUSCULTATION: clear to auscultation bilaterally Cardio: COMMON NORMALS: regular rate, regular rhythm, S1 normal heart sound present and S2 normal heart sound present RATE: regular rate RHYTHM: regular rhythm HEART SOUNDS: S1 normal heart sound present and S2 normal heart sound present GI: COMMON NORMALS: Normal to inspection, nondistended, normoactive bowel sounds present, Soft to palpation, non-tender and No hepatosplenomegaly present PALPATION: Yes Soft to palpation and Yes No hepatosplenomegaly present Extremity: COMMON NORMALS: no pedal edema Neuro: COMMON NORMALS: patient oriented x3 Psych: COMMON NORMALS: mental status grossly normal Urinary Catheter Management: Leger Latex: Cath Placed During This Visit: yes Urinary Catheter Date of Insertion: 11/30/21 Urinary Catheter Time of Insertion: 00:30 Data : 11/29/21 19:45 11/30/21 03:16 Micro: Microbiology 11/29/21 21:29 Blood Culture - Preliminary Blood SPECIMEN COLLECTED 11/29/21 19:45 Blood Culture - Preliminary Blood SPECIMEN COLLECTED A&P Assessment and plan (1) Left ureteral calculus: Status: Acute (2) Obstructive pyelonephritis: Status: Acute (3) Sepsis: Status: Acute (4) HTN (hypertension): Status: Acute Qualifiers: Hypertension type: essential hypertension Qualified Code(s): I10 - Essential (primary) hypertension (5) CHF (congestive heart failure): Status: Acute Qualifiers: Heart failure type: diastolic Heart failure chronicity: chronic Qualified Code(s): I50.32 - Chronic diastolic (congestive) heart failure Plan Patient presenting today as a result of sepsis from obstructive pyelonephritis of the left ureter now status post stent placement. #Sepsis related to obstructive pyelonephritis Meet sepsis criteria by way of fever, leukocytosis, tachycardia and hypotension. Status post left ureteral stent placement with Dr. Austin. Positive UA, pending urine culture Started on piperacillin tazobactam empirically. Remains hemodynamically stable, moved to general medical floors #History of congestive heart failure, uncertain at this time if systolic or diastolic, likely acute on chronic per cardiology notes reviewed. Presumably systolic heart failure given that patient is noted to have ischemic cardiomyopathy and an ICD in place. check limited 2d echo We will give 40 mg of Lasix this morning Discontinue IV fluids Chest x-ray shows fluid overload, elevated BNP #Hypertension: Blood pressure medications on hold Continue to wean down oxygen as tolerated. Monitor urine output, I&O. 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
--- NOTE | 2021-11-30 18:49 | PC.NURSE ---
Report to second floor Pt SBAR faxed to second floor. Report called to Jaqui MURGUIA. Jaqui will call when she is ready for pt to come to floor.
--- NOTE | 2021-11-30 19:47 | PC.NURSE ---
Transfer Patient transferred to [facility] bed 267 via wheel chair with all belongings with patient. Patient able to move from bed to wheelchair and to new bed. Patient reported pain upon movement at an 8 out of 10 on a numerical scale. New nurse at bedside and aware of pain. MAR to be consulted for pain medication.
[2021-11-30] MEDS: oxyCODONE-APAP 5-325 mg Tablet 1 TAB PO (19:55)
--- NOTE | 2021-11-30 20:03 | PC.NURSE ---
TRANSFER Pt received to floor from ICU via wheelchair at 194. Tearful on arrival to floor with c/o pain increasing with moving around. Otherwise is glad to be out of ICU. Was too early for IV pain med. Reports pain in abdomen and into back as well. Dr Dejesus was called with order received to start po Percocet prn and continue with the IV Dilaudid for breakthrough pain. VS done and applying geospatial analyst. Leger intact and draining well.
[2021-11-30] MEDS: citalopram 20 mg Tablet 40 MG PO (20:34)
[2021-11-30] MEDS: zolpidem 5 mg Tablet 10 MG PO (20:34)
[2021-12-01] VITALS (13 sets, daily range): BP systolic 108–147; BP diastolic 61–79; PULSE 75–92; RESP 12–20; TEMP 36.9–38.3; O2SAT 90–96
[2021-12-01] MEDS: enoxaparin 40 mg/0.4 mL Syringe SUBCUT (02:45)
[2021-12-01 03:03] LABS: Basophils % 0.1 %; Hematocrit 31.6 % (37.0-47.0); Hemoglobin 10.8 g/dL (11.5-15.3); Lymphocytes % 6.5 %; Mean Corpuscular HGB Conc 34.2 g/dL (30.0-36.0); Mean Corpuscular Hemoglobin 34.7 pg (28.0-34.0); Mean Corpuscular Volume 101.6 fl (81-99); Mean Platelet Volume 11.3 fL (7.4-10.4); Monocytes % 6.6 %; Neutrophils # 13.44 10^3/uL (1.8-7.7); Neutrophils % 86.2 %; Nucleated Red Blood Cells % 0 %; Platelet Count 162 10^3/cmm (130-400); Red Blood Count 3.11 10^6/uL (4.1-5.3); Red Cell Distribution Width 12.3 % (12.1-15.1); White Blood Count 15.6 10^3/uL (4.0-10.0)
[2021-12-01] MEDS: piperacillin-tazobactam 3.375 GM in dextrose 5% (plus) 50 ML IV ×3 (03:27→19:47)
[2021-12-01 03:33] LABS: Alanine Aminotransferase 15 U/L (0-33); Albumin Level 3.5 g/dL (3.5-5.2); Alkaline Phosphatase 76 IU/L (35-105); Anion Gap 12.5 (5-19); Aspartate Amino Transferase 15 U/L (0-32); Blood Urea Nitrogen 14 mg/dL (6-20); C Reactive Protein 43.7 mg/L (0.0-4.9); Calcium 8.7 mg/dL (8.5-10.5); Carbon Dioxide 23 mmol/L (22-29); Chloride 106 mmol/L (98-107); Glomerular Filtration Rate 88.2 mL/min (90-130); Glucose 131 mg/dL (65-115); Magnesium 1.9 mg/dL (1.7-2.3); NT Pro B Type Natriuretic Pept 898 pg/mL (0-125); Osmolality Calculated 288 mOsm/kg (285-295); Potassium 3.5 mmol/L (3.5-5.1); Sodium 138 mmol/L (136-145); Total Bilirubin 0.3 mg/dL (0.15-1.2); Total Protein 6.5 g/dL (6.6-8.7)
[2021-12-01] MEDS: HYDROmorphone 1 mg/mL INJ 1 mL IVP (03:37)
[2021-12-01] MEDS: ferrous sulfate EC 325 mg Tablet PO (05:23)
[2021-12-01] MEDS: montelukast sodium 10 mg Tablet PO (05:26)
--- NOTE | 2021-12-01 06:41 | PC.NURSE ---
SHIFT SUMMARY Has rested well after being transferred from ICU last evening. Has received pain meds as requested with good relief noted. Says pain is across lower abdonen and into her back. Tells me she has history of multiple kidney stones. Leger draining without difficulty. Cont to receive IV antibiotics.
[2021-12-01] MEDS: oxyCODONE-APAP 5-325 mg Tablet 1 TAB PO ×4 (06:51→20:13)
[2021-12-01] MEDS: pantoprazole DR 40 mg Tablet PO (08:58)
--- NOTE | 2021-12-01 14:08 | P.PN_ITS ---
Subjective Subjective: Urology follow-up: Postop day #2 Status post emergency stenting for left obstructive pyelonephritis. Continues to improve clinically. White count is still elevated. She still having left flank pain but overall feels better. Very tired though. No nausea or vomiting. Vitals/I&O/Wt Last Vital Signs Temp 98.5 F 12/01/21 08:00 Pulse 75 12/01/21 08:00 Resp 16 12/01/21 11:04 BP 145/67 12/01/21 08:00 Pulse Ox 93 12/01/21 11:04 11/30/21 12/01/21 12/01/21 22:59 06:59 14:59 Intake Total 520 / 690 450 / 1140 168 / 168 Output Total 550 / 4150 Balance 520 / -2910 -100 / -3010 168 / 168 Weight last 48 hrs Weight 170 lb Physical Exam Const: COMMON NORMALS: patient oriented x3 and well nourished HENMT: COMMON NORMALS: normocephalic HEAD & SCALP: normocephalic Neck/C-Spine: OTHER: Good range of motion Neuro: COMMON NORMALS: patient oriented x3 Psych: COMMON NORMALS: Normal thought process present and cooperative MOOD & AFFECT: Yes depressed mood THOUGHT PROCESS: Normal thought process present Urinary Catheter Management: Leger Latex: Cath Placed During This Visit: yes Urinary Catheter Date of Insertion: 11/30/21 Urinary Catheter Time of Insertion: 00:30 Data : 12/01/21 02:13 12/01/21 02:13 Micro: Microbiology 11/29/21 21:29 Blood Culture - Preliminary Blood NEGATIVE TO DATE 11/29/21 19:45 Blood Culture - Preliminary Blood NEGATIVE TO DATE A&P Assessment and plan (1) Obstructive pyelonephritis: Status: Acute (2) Left ureteral calculus: Status: Acute Attestations Medical Necessity Statement*: Still symptomatic with elevated white count. Continues IV antibiotics. 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
--- NOTE | 2021-12-01 15:55 | PC.NURSE ---
Notified Dr. Parks of patients temp 100.1. Percocet given at 2:15
--- NOTE | 2021-12-01 16:09 | P.PN_ITS ---
Subjective Subjective: Patient was seen this morning, she continues to have intermittent complaints of flank pain, no fevers overnight, no nausea, no vomiting, no lightheadedness, good appetite, Vitals/I&O/Wt Last Vital Signs Temp 98.5 F 12/01/21 08:00 Pulse 75 12/01/21 08:00 Resp 19 H 12/01/21 15:15 BP 145/67 12/01/21 08:00 Pulse Ox 94 12/01/21 15:15 12/01/21 12/01/21 12/01/21 06:59 14:59 22:59 Intake Total 450 / 1140 168 / 168 Output Total 550 / 4150 Balance -100 / -3010 168 / 168 Weight last 48 hrs Weight 77.111 kg Physical Exam Const: COMMON NORMALS: no acute distress and patient oriented x3 Resp: COMMON NORMALS: normal respiratory effort, No retractions, No use of accessory muscles and clear to auscultation bilaterally AUSCULTATION: clear to auscultation bilaterally Cardio: COMMON NORMALS: regular rate, regular rhythm, S1 normal heart sound present and S2 normal heart sound present RATE: regular rate RHYTHM: regular rhythm HEART SOUNDS: S1 normal heart sound present and S2 normal heart sound present GI: COMMON NORMALS: Normal to inspection, nondistended, normoactive bowel sounds present, Soft to palpation, non-tender and No hepatosplenomegaly present PALPATION: Yes Soft to palpation and Yes No hepatosplenomegaly present Extremity: COMMON NORMALS: no pedal edema Neuro: COMMON NORMALS: patient oriented x3 Psych: COMMON NORMALS: mental status grossly normal Urinary Catheter Management: Leger Latex: Cath Placed During This Visit: yes Urinary Catheter Date of Insertion: 11/30/21 Urinary Catheter Time of Insertion: 00:30 Data : 12/01/21 02:13 12/01/21 02:13 Micro: Microbiology 11/29/21 21:29 Blood Culture - Preliminary Blood NEGATIVE TO DATE 11/29/21 19:45 Blood Culture - Preliminary Blood NEGATIVE TO DATE A&P Assessment and plan (1) Left ureteral calculus: Status: Acute (2) Obstructive pyelonephritis: Status: Acute (3) Sepsis: Status: Acute (4) HTN (hypertension): Status: Acute Qualifiers: Hypertension type: essential hypertension Qualified Code(s): I10 - Essential (primary) hypertension (5) CHF (congestive heart failure): Status: Acute Qualifiers: Heart failure type: diastolic Heart failure chronicity: chronic Qualified Code(s): I50.32 - Chronic diastolic (congestive) heart failure Plan Patient presenting today as a result of sepsis from obstructive pyelonephritis of the left ureter now status post stent placement. #Sepsis related to obstructive pyelonephritis Met sepsis criteria by way of fever, leukocytosis, tachycardia and hypotension. Status post left ureteral stent placement with Dr. Austin. Positive UA, pending urine culture Blood cultures so far unremarkable Started on piperacillin tazobactam empirically. Remains hemodynamically stable, afebrile #History of congestive heart failure, uncertain at this time if systolic or diastolic, likely acute on chronic per cardiology notes reviewed. Presumably systolic heart failure given that patient is noted to have ischemic cardiomyopathy and an ICD in place. Cardiac echocardiogram This study was performed with the echo contrast ?Normal LV size with diminished ejection fraction of 42%. ?Dyskinetic septum and the anteroseptal segments. ?Thickened aortic valve. ?Possibly normal RV size and ejection fraction. ?Normal left atrial size. ?No pericardial effusion ?Comparison with the previous study is difficult because of the ?difference in the technical quality.? There may not be a ?significant difference Daily dose Lasix #Hypertension: Blood pressure medications on hold #Indeterminate liver lesion, will need outpatient follow-up Continue to wean down oxygen as tolerated. Monitor urine output, I&O. 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
[2021-12-01 17:06] LABS: Glucose Point of Care 102 mg/dL (70-110)
--- NOTE | 2021-12-01 17:08 | XRR_ITS ---
PROCEDURE INFORMATION: Exam: XR Abdomen Exam date and time: 12/01/2021 5:08 PM Age: 51 years old Clinical indication: Other: Nephrolithiasis TECHNIQUE: Imaging protocol: XR of the abdomen. Views: Frontal supine view of the abdomen. 1 View. COMPARISON: CT abdomen pelvis w con* [id number] 11/29/2021 9:35 PM FINDINGS: Tubes, catheters and devices: Left-sided internal ureteral stent position is unremarkable. Gastrointestinal tract: Nonobstructive bowel gas pattern. No free air. Intraperitoneal space: Right upper quadrant surgical clips. Organs: No radiographically visible urolithiasis identified. Stones on the recent CT scan in the left ureter are not clearly identified by radiography. Bones/joints: Mild spondyloarthropathy of lumbar spine. XR/XR KUB portable [id number] IMPRESSION: Status post left internal ureteral stenting.
--- NOTE | 2021-12-01 17:53 | PC.NURSE ---
notified Dr. Parks patients temp 101.8. Stated to give tylenol and ice pack
[2021-12-01] MEDS: acetaminophen 325 mg Tablet 650 MG PO ×2 (17:55→23:59)
[2021-12-01 19:56] LABS: C Reactive Protein 25.4 mg/L (0.0-4.9)
[2021-12-01 19:57] LABS: Adenovirus Not Detected (NOT DETECT); Chlamydia Pneumoniae Not Detected (NOT DETECT); Coronavirus 229E,HKU1,NL63,OC4 Not Detected (NOT DETECT); Human Metapneumovirus Not Detected (NOT DETECT); Human Rhinovirus/Enterovirus Not Detected (NOT DETECT); Influenza A Not Detected (NOT DETECT); Influenza A H1 Not Detected (NOT DETECT); Influenza A H1-2009 Not Detected (NOT DETECT); Influenza A H3 Not Detected (NOT DETECT); Influenza B Not Detected (NOT DETECT); Mycoplasma Pneumoniae Not Detected (NOT DETECT); Parainfluenza Virus Type 1 Not Detected (NOT DETECT); Parainfluenza Virus Type 2 Not Detected (NOT DETECT); Parainfluenza Virus Type 3 Not Detected (NOT DETECT); Parainfluenza Virus Type 4 Not Detected (NOT DETECT); Respiratory Syncytial Virus A Not Detected (NOT DETECT); Respiratory Syncytial Virus B Not Detected (NOT DETECT); SARS-COV-2 Not Detected (NOT DETECT)
[2021-12-01 20:02] LABS: Procalcitonin 0.19 ng/mL (0-0.5)
[2021-12-01 20:08] LABS: Influenza A Not Detected (NOT DETECT); Influenza A H1 Not Detected (NOT DETECT); Influenza A H1-2009 Not Detected (NOT DETECT); Influenza A H3 Not Detected (NOT DETECT); Influenza B Not Detected (NOT DETECT); Results from GENMARK
[2021-12-01] MEDS: zolpidem 5 mg Tablet 10 MG PO (20:13)
[2021-12-01] MEDS: citalopram 20 mg Tablet 40 MG PO (20:14)
[2021-12-01] MEDS: ketorolac 30 mg/mL INJ 15 MG IVP (22:48)
[2021-12-02] VITALS (13 sets, daily range): BP systolic 114–134; BP diastolic 67–84; PULSE 85–100; RESP 14–21; TEMP 36.8–38.1; O2SAT 89–97
[2021-12-02] MEDS: enoxaparin 40 mg/0.4 mL Syringe SUBCUT (02:01)
[2021-12-02 03:16] LABS: Basophils % 0.2 %; Eosinophils % 0.1 %; Hematocrit 34.1 % (37.0-47.0); Hemoglobin 11.2 g/dL (11.5-15.3); Lymphocytes # 1.6 10^3/uL (0.8-4.8); Lymphocytes % 17.6 %; Mean Corpuscular HGB Conc 32.8 g/dL (30.0-36.0); Mean Corpuscular Hemoglobin 35.4 pg (28.0-34.0); Mean Corpuscular Volume 107.9 fl (81-99); Mean Platelet Volume 10.8 fL (7.4-10.4); Monocytes # 0.7 10^3/uL (0.2-0.9); Monocytes % 7.6 %; Neutrophils # 6.85 10^3/uL (1.8-7.7); Neutrophils % 73.9 %; Nucleated Red Blood Cells % 0 %; Platelet Count 157 10^3/cmm (130-400); Red Blood Count 3.16 10^6/uL (4.1-5.3); Red Cell Distribution Width 12.4 % (12.1-15.1); White Blood Count 9.3 10^3/uL (4.0-10.0)
[2021-12-02] MEDS: oxyCODONE-APAP 5-325 mg Tablet 1 TAB PO (03:35)
[2021-12-02] MEDS: piperacillin-tazobactam 3.375 GM in dextrose 5% (plus) 50 ML IV ×2 (03:35→20:06)
[2021-12-02 03:37] LABS: Alanine Aminotransferase 18 U/L (0-33); Albumin Level 3.2 g/dL (3.5-5.2); Alkaline Phosphatase 64 IU/L (35-105); Aspartate Amino Transferase 18 U/L (0-32); Blood Urea Nitrogen 16 mg/dL (6-20); C Reactive Protein 27.2 mg/L (0.0-4.9); Calcium 8.6 mg/dL (8.5-10.5); Carbon Dioxide 22 mmol/L (22-29); Chloride 104 mmol/L (98-107); Globulin 2.9 g/dL (1.3-4.6); Glomerular Filtration Rate 75.6 mL/min (90-130); Glucose 94 mg/dL (65-115); Magnesium 1.8 mg/dL (1.7-2.3); Osmolality Calculated 283 mOsm/kg (285-295); Phosphorus 2.2 mg/dL (2.5-4.5); Sodium 136 mmol/L (136-145); Total Bilirubin 0.5 mg/dL (0.15-1.2); Total Protein 6.1 g/dL (6.6-8.7)
[2021-12-02 03:39] LABS: Anion Gap 13.4 (5-19); Potassium 3.4 mmol/L (3.5-5.1)
[2021-12-02 03:48] LABS: NT Pro B Type Natriuretic Pept 2277 pg/mL (0-125); Procalcitonin 0.19 ng/mL (0-0.5)
[2021-12-02] MEDS: ondansetron 2 mg/ML SDV 2 mL 4 MG IVP (04:39)
[2021-12-02] MEDS: ferrous sulfate EC 325 mg Tablet PO (06:26)
[2021-12-02] MEDS: montelukast sodium 10 mg Tablet PO (06:26)
[2021-12-02] MEDS: pantoprazole DR 40 mg Tablet PO (08:42)
[2021-12-02] MEDS: HYDROmorphone 1 mg/mL INJ 1 mL IVP ×3 (10:03→18:44)
--- NOTE | 2021-12-02 11:11 | P.PN_ITS ---
Subjective Subjective: Patient was seen this morning, she tells me that she has a headache this morning, she continues to have left flank pain, had fevers overnight, Vitals/I&O/Wt Last Vital Signs Temp 99.7 F H 12/02/21 08:00 Pulse 91 12/02/21 08:00 Resp 18 12/02/21 10:03 BP 119/84 12/02/21 08:00 Pulse Ox 92 12/02/21 07:29 12/01/21 12/02/21 12/02/21 22:59 06:59 14:59 Intake Total 650 / 818 250 / 1068 170 / 170 Output Total 650 / 650 450 / 1100 Balance 0 / 168 -200 / -32 170 / 170 Physical Exam Const: COMMON NORMALS: no acute distress and patient oriented x3 HENMT: COMMON NORMALS: normocephalic HEAD & SCALP: normocephalic Neck/C-Spine: COMMON NORMALS: no JVD Resp: COMMON NORMALS: normal respiratory effort, No retractions, No use of accessory muscles and clear to auscultation bilaterally AUSCULTATION: clear to auscultation bilaterally Cardio: COMMON NORMALS: no JVD, regular rate, regular rhythm, S1 normal heart sound present and S2 normal heart sound present RATE: regular rate RHYTHM: regular rhythm HEART SOUNDS: S1 normal heart sound present and S2 normal heart sound present GI: COMMON NORMALS: Normal to inspection, nondistended, normoactive bowel sounds present, Soft to palpation, non-tender and No hepatosplenomegaly present PALPATION: Yes Soft to palpation and Yes No hepatosplenomegaly present Extremity: COMMON NORMALS: no pedal edema Neuro: COMMON NORMALS: patient oriented x3 Psych: COMMON NORMALS: mental status grossly normal Urinary Catheter Management: Leger Latex: Cath Placed During This Visit: yes Urinary Catheter Date of Insertion: 11/30/21 Urinary Catheter Time of Insertion: 00:30 Data : 12/02/21 02:54 12/02/21 02:54 Micro: Microbiology 12/01/21 19:32 Blood Culture - Preliminary Blood SPECIMEN COLLECTED 12/01/21 19:28 Blood Culture - Preliminary Blood SPECIMEN COLLECTED A&P Assessment and plan (1) Left ureteral calculus: Status: Acute (2) Obstructive pyelonephritis: Status: Acute (3) Sepsis: Status: Acute (4) HTN (hypertension): Status: Acute Qualifiers: Hypertension type: essential hypertension Qualified Code(s): I10 - Essential (primary) hypertension (5) CHF (congestive heart failure): Status: Acute Qualifiers: Heart failure type: diastolic Heart failure chronicity: chronic Qualified Code(s): I50.32 - Chronic diastolic (congestive) heart failure Plan Patient presenting today as a result of sepsis from obstructive pyelonephritis of the left ureter now status post stent placement. #Sepsis related to obstructive pyelonephritis Met sepsis criteria by way of fever, leukocytosis, tachycardia and hypotension. Status post left ureteral stent placement with Dr. Austin. Positive UA, pending urine culture Blood cultures so far unremarkable Started on piperacillin tazobactam empirically. Continues to be febrile, repeat blood cultures, KUB shows stent in place, Covid negative, flu negative, if she continues to be febrile will do repeat CAT scan #History of congestive heart failure, uncertain at this time if systolic or diastolic, likely acute on chronic per cardiology notes reviewed. Presumably systolic heart failure given that patient is noted to have ischemic cardiomyopathy and an ICD in place. Cardiac echocardiogram This study was performed with the echo contrast ?Normal LV size with diminished ejection fraction of 42%. ?Dyskinetic septum and the anteroseptal segments. ?Thickened aortic valve. ?Possibly normal RV size and ejection fraction. ?Normal left atrial size. ?No pericardial effusion ?Comparison with the previous study is difficult because of the ?difference in the technical quality.? There may not be a ?significant difference Daily dose Lasix #Hypertension: Blood pressure medications on hold #Indeterminate liver lesion, will need outpatient follow-up Continue to wean down oxygen as tolerated. Monitor urine output, I&O. 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
[2021-12-02] MEDS: piperacillin-tazobactam 3.375 GM in sodium chloride 0.9% (plus) 50 ML IV (11:55)
--- NOTE | 2021-12-02 18:23 | PC.NURSE ---
Pt resting in bed. AAOX4. Makes all needs known, BAIN at times during the day. Treated with PRN pain med. Pt had episode of diarrhea and was able to transfer self to [facility]. This nurse assisted pt in clean up and pt tolerated standing and ambulating to bed well. No other issues noted. Will monitor.
--- NOTE | 2021-12-02 18:41 | PC.PT ---
Patient supine in bed, states doing very well with physical abilities and out of bed activities, declines need of physical therapy evaluation; did participate with occupational therapy evaluation, and demonstrated no needs, regarding transfers or ambulation safety without assistive device. No further PT attempts to be made at this time.
[2021-12-02] MEDS: acetaminophen 325 mg Tablet 650 MG PO (20:06)
[2021-12-02] MEDS: zolpidem 5 mg Tablet 10 MG PO (20:10)
[2021-12-02] MEDS: citalopram 20 mg Tablet 40 MG PO (20:10)
[2021-12-03] VITALS (12 sets, daily range): BP systolic 100–145; BP diastolic 64–96; PULSE 68–93; RESP 16–20; TEMP 36.7–37.1; O2SAT 91–98
[2021-12-03] MEDS: piperacillin-tazobactam 3.375 GM in dextrose 5% (plus) 50 ML IV ×3 (03:03→20:39)
[2021-12-03] MEDS: enoxaparin 40 mg/0.4 mL Syringe SUBCUT (03:04)
[2021-12-03 03:06] LABS: Basophils % 0.2 %; Eosinophils # 0.1 10^3/uL (0.0-0.8); Eosinophils % 0.7 %; Hematocrit 30.6 % (37.0-47.0); Hemoglobin 10.7 g/dL (11.5-15.3); Lymphocytes # 1.6 10^3/uL (0.8-4.8); Lymphocytes % 19.7 %; Mean Corpuscular Hemoglobin 35.5 pg (28.0-34.0); Mean Corpuscular Volume 101.7 fl (81-99); Mean Platelet Volume 11.2 fL (7.4-10.4); Monocytes # 0.9 10^3/uL (0.2-0.9); Monocytes % 11.6 %; Neutrophils # 5.39 10^3/uL (1.8-7.7); Neutrophils % 66.9 %; Nucleated Red Blood Cells % 0 %; Platelet Count 158 10^3/cmm (130-400); Red Blood Count 3.01 10^6/uL (4.1-5.3); Red Cell Distribution Width 12.2 % (12.1-15.1); White Blood Count 8.1 10^3/uL (4.0-10.0)
[2021-12-03] MEDS: HYDROmorphone 1 mg/mL INJ 1 mL IVP ×4 (03:09→21:44)
[2021-12-03 03:26] LABS: Alanine Aminotransferase 24 U/L (0-33); Albumin Level 3.5 g/dL (3.5-5.2); Alkaline Phosphatase 66 IU/L (35-105); Aspartate Amino Transferase 20 U/L (0-32); Blood Urea Nitrogen 12 mg/dL (6-20); C Reactive Protein 71.3 mg/L (0.0-4.9); Calcium 9.1 mg/dL (8.5-10.5); Carbon Dioxide 26 mmol/L (22-29); Chloride 104 mmol/L (98-107); Globulin 2.6 g/dL (1.3-4.6); Glomerular Filtration Rate 105.4 mL/min (90-130); Glucose 97 mg/dL (65-115); Magnesium 1.9 mg/dL (1.7-2.3); Osmolality Calculated 292 mOsm/kg (285-295); Phosphorus 2.6 mg/dL (2.5-4.5); Sodium 141 mmol/L (136-145); Total Bilirubin 0.6 mg/dL (0.15-1.2); Total Protein 6.1 g/dL (6.6-8.7)
[2021-12-03 03:33] LABS: NT Pro B Type Natriuretic Pept 1439 pg/mL (0-125); Procalcitonin 0.15 ng/mL (0-0.5)
[2021-12-03] MEDS: montelukast sodium 10 mg Tablet PO (06:22)
[2021-12-03] MEDS: ferrous sulfate EC 325 mg Tablet PO (06:22)
[2021-12-03] MEDS: pantoprazole DR 40 mg Tablet PO (07:54)
--- NOTE | 2021-12-03 09:30 | PC.SOCIAL ---
IMM Update Pg. 2 of IMM updated and reviewed with patient who verbalized understanding. Copy provided.
--- NOTE | 2021-12-03 12:03 | P.PN_ITS ---
Subjective Subjective: Patient was seen this morning, she tells that she is not ready to get in the hospital, no fevers overnight, continues to have left leg pain, but overall improving, no nausea, no vomiting Vitals/I&O/Wt Last Vital Signs Temp 98.7 F 12/03/21 11:52 Pulse 73 12/03/21 11:52 Resp 16 12/03/21 11:52 BP 130/67 12/03/21 11:52 Pulse Ox 94 12/03/21 11:52 12/02/21 12/03/21 12/03/21 22:59 06:59 14:59 Intake Total 360 / 1049.0909 50 / 1099.0909 410 / 410 Output Total 650 / 650 500 / 1150 Balance -290 / 399.0909 -450 / -50.9091 410 / 410 Physical Exam Const: COMMON NORMALS: no acute distress and patient oriented x3 Resp: COMMON NORMALS: normal respiratory effort, No retractions, No use of accessory muscles and clear to auscultation bilaterally AUSCULTATION: clear to auscultation bilaterally Cardio: COMMON NORMALS: regular rate, regular rhythm, S1 normal heart sound present and S2 normal heart sound present RATE: regular rate RHYTHM: regular rhythm HEART SOUNDS: S1 normal heart sound present and S2 normal heart sound present GI: COMMON NORMALS: Normal to inspection, nondistended, normoactive bowel sounds present, Soft to palpation, non-tender and No hepatosplenomegaly present PALPATION: Yes Soft to palpation and Yes No hepatosplenomegaly present Extremity: COMMON NORMALS: no pedal edema Neuro: COMMON NORMALS: patient oriented x3 Psych: COMMON NORMALS: mental status grossly normal Urinary Catheter Management: Leger Latex: Cath Placed During This Visit: yes Urinary Catheter Date of Insertion: 11/30/21 Urinary Catheter Time of Insertion: 00:30 Data : 12/03/21 01:50 12/03/21 01:50 Micro: Microbiology 12/01/21 18:15 Urine Culture - Preliminary Urine Catheterized 12/01/21 19:32 Blood Culture - Preliminary Blood NEGATIVE TO DATE 12/01/21 19:28 Blood Culture - Preliminary Blood NEGATIVE TO DATE 11/30/21 03:00 Urine Culture - Final Urine Catheterized Enterococcus faecalis A&P Assessment and plan (1) Left ureteral calculus: Status: Acute (2) Obstructive pyelonephritis: Status: Acute (3) Sepsis: Status: Acute (4) HTN (hypertension): Status: Acute Qualifiers: Hypertension type: essential hypertension Qualified Code(s): I10 - Es sential (primary) hypertension (5) CHF (congestive heart failure): Status: Acute Qualifiers: Heart failure type: diastolic Heart failure chronicity: chronic Qualified Code(s): I50.32 - Chronic diastolic (congestive) heart failure Plan Patient presenting today as a result of sepsis from obstructive pyelonephritis of the left ureter now status post stent placement. #Sepsis related to obstructive pyelonephritis Met sepsis criteria by way of fever, leukocytosis, tachycardia and hypotension. Status post left ureteral stent placement with Dr. Austin. Positive UA, pending urine culture Blood cultures so far unremarkable, repeat negative so far Continue piperacillin tazobactam empirically. Remains afebrile, repeat blood cultures so far negative KUB shows stent in place, Covid negative, flu negative, if she continues to be febrile will do repeat CAT scan #History of congestive heart failure, uncertain at this time if systolic or diastolic, likely acute on chronic per cardiology notes reviewed. Presumably systolic heart failure given that patient is noted to have ischemic cardiomyopathy and an ICD in place. Cardiac echocardiogram This study was performed with the echo contrast ?Normal LV size with diminished ejection fraction of 42%. ?Dyskinetic septum and the anteroseptal segments. ?Thickened aortic valve. ?Possibly normal RV size and ejection fraction. ?Normal left atrial size. ?No pericardial effusion ?Comparison with the previous study is difficult because of the ?difference in the technical quality.? There may not be a ?significant difference Daily dose Lasix #Hypertension: Blood pressure medications on hold #Indeterminate liver lesion, will need outpatient follow-up Continue to wean down oxygen as tolerated. Monitor urine output, I&O. 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
[2021-12-03] MEDS: FUROsemide 10 mg/mL SDV 2mL 20 MG IVP (12:32)
[2021-12-03] MEDS: potassium chloride ER 20 mEq Tablet 40 MEQ PO (12:32)
[2021-12-03] MEDS: ketorolac 30 mg/mL INJ 15 MG IVP (20:40)
[2021-12-03] MEDS: zolpidem 5 mg Tablet 10 MG PO (20:41)
[2021-12-03] MEDS: citalopram 20 mg Tablet 40 MG PO (20:41)
[2021-12-03] MEDS: nystatin powder 15 gm Btl 1 APPLIC TOPICAL (21:40)
[2021-12-04] VITALS (12 sets, daily range): BP systolic 126–137; BP diastolic 66–88; PULSE 77–97; RESP 14–18; TEMP 36.7–37.1; O2SAT 94–98
[2021-12-04] MEDS: piperacillin-tazobactam 3.375 GM in dextrose 5% (plus) 50 ML IV ×3 (03:17→19:26)
[2021-12-04] MEDS: enoxaparin 40 mg/0.4 mL Syringe SUBCUT (03:21)
[2021-12-04] MEDS: HYDROmorphone 1 mg/mL INJ 1 mL IVP ×4 (03:24→21:15)
[2021-12-04] MEDS: montelukast sodium 10 mg Tablet PO (05:23)
[2021-12-04] MEDS: ferrous sulfate EC 325 mg Tablet PO (05:24)
[2021-12-04 05:50] LABS: Basophils # 0.1 10^3/uL (0.0-0.1); Basophils % 0.5 %; Eosinophils # 0.2 10^3/uL (0.0-0.8); Eosinophils % 2.3 %; Hematocrit 34.9 % (37.0-47.0); Hemoglobin 11.2 g/dL (11.5-15.3); Lymphocytes # 1.5 10^3/uL (0.8-4.8); Lymphocytes % 14.3 %; Mean Corpuscular HGB Conc 32.1 g/dL (30.0-36.0); Mean Corpuscular Hemoglobin 34.3 pg (28.0-34.0); Mean Corpuscular Volume 106.7 fl (81-99); Mean Platelet Volume 11.6 fL (7.4-10.4); Monocytes # 0.6 10^3/uL (0.2-0.9); Monocytes % 5.6 %; Neutrophils # 7.79 10^3/uL (1.8-7.7); Neutrophils % 76.3 %; Nucleated Red Blood Cells % 0 %; Platelet Count 106 10^3/cmm (130-400); Red Blood Count 3.27 10^6/uL (4.1-5.3); Red Cell Distribution Width 12.1 % (12.1-15.1); White Blood Count 10.2 10^3/uL (4.0-10.0)
[2021-12-04 06:16] LABS: NT Pro B Type Natriuretic Pept 562 pg/mL (0-125); Procalcitonin 0.11 ng/mL (0-0.5)
[2021-12-04 06:33] LABS: Alanine Aminotransferase 45 U/L (0-33); Alkaline Phosphatase 62 IU/L (35-105); Aspartate Amino Transferase 35 U/L (0-32); Blood Urea Nitrogen 17 mg/dL (6-20); Calcium 9.4 mg/dL (8.5-10.5); Carbon Dioxide 20 mmol/L (22-29); Globulin 3.6 g/dL (1.3-4.6); Glomerular Filtration Rate 105.4 mL/min (90-130); Glucose 94 mg/dL (65-115); Total Bilirubin 0.4 mg/dL (0.15-1.2); Total Protein 6.6 g/dL (6.6-8.7)
[2021-12-04 07:20] LABS: Anion Gap 18.4 (5-19); Chloride 104 mmol/L (98-107); Osmolality Calculated 289 mOsm/kg (285-295); Potassium 3.4 mmol/L (3.5-5.1); Sodium 139 mmol/L (136-145)
[2021-12-04] MEDS: nystatin powder 15 gm Btl 1 APPLIC TOPICAL ×4 (08:27→21:15)
[2021-12-04] MEDS: pantoprazole DR 40 mg Tablet PO (08:27)
[2021-12-04] MEDS: potassium chloride ER 20 mEq Tablet 40 MEQ PO (10:47)
--- NOTE | 2021-12-04 11:58 | CTR_ITS ---
PROCEDURE INFORMATION: Exam: CT Abdomen And Pelvis Without Contrast Exam date and time: 12/04/2021 11:58 AM Age: 51 years old Clinical indication: Abdominal pain; Flank; Upper; Prior surgery; Surgery date: 6+ months; Surgery type: Gb; Patient HX: Known nephrolithiasis w L stent in place C/O worsening pain TECHNIQUE: Imaging protocol: Computed tomography of the abdomen and pelvis without contrast. Radiation optimization: All CT scans at this facility use at least one of these dose optimization techniques: automated exposure control; mA and/or kV adjustment per patient size (includes targeted exams where dose is matched to clinical indication); or iterative reconstruction. COMPARISON: CT abdomen pelvis w con* [id number] 11/29/2021 9:35 PM RADIATION DOSE METRICS: Total DLP (mGy-cm): 1150.45 FINDINGS: Lungs: Bibasilar subsegmental atelectasis is appreciated. A calcified granuloma is present in the right lung base. Pleural spaces: Small bilateral pleural effusions are present. Heart: The heart is normal in size. Liver: A 3.4 cm hypodense mass is present in the right hepatic lobe. Gallbladder and bile ducts: The gallbladder has been removed. No biliary ductal dilatation. Pancreas: Normal. No ductal dilation. Spleen: Normal. No splenomegaly. Adrenal glands: Normal. No mass. Kidneys and ureters: Tiny renal stones are present in both kidneys. Mild medullary nephrocalcinosis changes are observed in the right kidney. A left ureteral stent has been placed, which appears in good position. Numerous subcentimeter renal stones (largest stone measures 4 mm) are seen adjacent to the left ureteral stent in the proximal to mid ureter. No hydronephrosis. Stomach and bowel: Unremarkable. No obstruction. No mucosal thickening. Appendix: The appendix is normal. Intraperitoneal space: Unremarkable. No free air. No significant fluid collection. Vasculature: Unremarkable. No abdominal aortic aneurysm. Lymph nodes: Unremarkable. No enlarged lymph nodes. Urinary bladder: Unremarkable as visualized. Reproductive: Unremarkable as visualized. Bones/joints: Mild degenerative changes are seen in the visualized spine. No acute fracture. Soft tissues: Small foci of mild stranding and subcutaneous air in the right anterior abdominal wall are likely injection sites. CT/CT kidney stone [id number] IMPRESSION: 1. Interval placement of a left ureteral stent and resolution of the left kidney hydronephrosis. Numerous small renal stones are present in the left ureter adjacent to the stent 2. Indeterminate hypodense right hepatic lobe mass. CT or MRI liver protocol is recommended for further assessment.
--- NOTE | 2021-12-04 12:06 | PC.CHAP ---
Pastoral Care Encounter/Spiritual Assessment Type of Contact [] Declined business services tech visit [] Patient/Family/Request visit [] Outpatient visit [] Follow-up visit [] Physician referral [] Code/Alert [X] Routine visit [] Staff referral [] Actively dying [] Patient sleeping [] Family support [] [] Out of room [] Palliative care [] [X] Receiving care in room [] Pre-surgical visit [] Trauma [] Long length of stay [] ICU visit [] Other: Relational/Emotional Strength [] Patient feels connected with others/family/visitors/staff [] Distress [] Loneliness/isolation [] Abandonment Spirituality of Patient [] Person of Capri [] Attends Taoist of their Capri [] Believes in Prayer [] Reads Bible or Hindu materials [] There are Spiritual issues to be addressed Shell Plater Interventions [] Prayer [] Active listening [] Non-anxious presence [] Spiritual/emotional support [] Crisis/trauma care [] Spiritual counseling [] Bereavement support [] Provided bereavement packet [] Provided Bible/devotional materials [] Provided toy/stuffed animal, coloring book to patient or family member [] Provided Communion [] Anointing/[place] [] Salvation [] Completed spiritual assessment [] Other: Impact on Illness or Injury [] Angry [] Fearful [] Anxious [] Often cries [] Exhaustion [] Unable to work [] Unable to attend temple [] Unable to walk/stand [] Unable to read [] Unable to drive [] Unable to eat/drink [] Unable to sleep [] Unable to be with family [] Patient intubated [] Other: Summary Time spent with patient
--- NOTE | 2021-12-04 16:00 | PM.PN ---
Subjective Subjective: Patient was seen this morning, she continues to have left flank pain, no fevers overnight, no nausea, no vomiting Vitals/I&O/Wt Last Vital Signs Temp 98.1 F 12/04/21 11:07 Pulse 97 12/04/21 11:07 Resp 18 12/04/21 13:47 BP 137/81 12/04/21 11:07 Pulse Ox 94 12/04/21 13:47 12/04/21 12/04/21 12/04/21 06:59 14:59 22:59 Intake Total 500 / 1865 290 / 290 50 / 340 Output Total 300 / 550 Balance 200 / 1315 290 / 290 50 / 340 Physical Exam Const: COMMON NORMALS: no acute distress and patient oriented x3 Resp: COMMON NORMALS: normal respiratory effort, No retractions, No use of accessory muscles and clear to auscultation bilaterally AUSCULTATION: clear to auscultation bilaterally Cardio: COMMON NORMALS: regular rate, regular rhythm, S1 normal heart sound present and S2 normal heart sound present RATE: regular rate RHYTHM: regular rhythm HEART SOUNDS: S1 normal heart sound present and S2 normal heart sound present GI: COMMON NORMALS: Normal to inspection, nondistended, normoactive bowel sounds present, Soft to palpation and non-tender PALPATION: Yes Soft to palpation Extremity: COMMON NORMALS: no pedal edema Neuro: COMMON NORMALS: patient oriented x3 Psych: COMMON NORMALS: mental status grossly normal Urinary Catheter Management: Leger Latex: Cath Placed During This Visit: yes Urinary Catheter Date of Insertion: 11/30/21 Urinary Catheter Time of Insertion: 00:30 Data : 12/04/21 05:15 12/04/21 05:15 Micro: Microbiology 12/01/21 18:15 Urine Culture - Final Urine Catheterized A&P Assessment and plan (1) Left ureteral calculus: Status: Acute (2) Obstructive pyelonephritis: Status: Acute (3) Sepsis: Status: Acute (4) HTN (hypertension): Status: Acute Qualifiers: Hypertension type: essential hypertension Qualified Code(s): I10 - Essential (primary) hypertension (5) CHF (congestive heart failure): Status: Acute Qualifiers: Heart failure type: diastolic Heart failure chronicity: chronic Qualified Code(s): I50.32 - Chronic diastolic (congestive) heart failure Plan Patient presenting today as a result of sepsis from obstructive pyelonephritis of the left ureter now status post stent placement. #Sepsis related to obstructive pyelonephritis Met sepsis criteria by way of fever, leukocytosis, tachycardia and hypotension. Status post left ureteral stent placement with Dr. Austin. Positive UA, urine culture Enterococcus Blood cultures so far unremarkable, repeat negative so far Continue piperacillin tazobactam empirically. Remains afebrile, repeat blood cultures so far negative KUB shows stent in place, Covid negative, flu negative, continues to have pain we will repeat CT scan #History of congestive heart failure, uncertain at this time if systolic or diastolic, likely acute on chronic per cardiology notes reviewed. Presumably systolic heart failure given that patient is noted to have ischemic cardiomyopathy and an ICD in place. Cardiac echocardiogram This study was performed with the echo contrast ?Normal LV size with diminished ejection fraction of 42%. ?Dyskinetic septum and the anteroseptal segments. ?Thickened aortic valve. ?Possibly normal RV size and ejection fraction. ?Normal left atrial size. ?No pericardial effusion ?Comparison with the previous study is difficult because of the ?difference in the technical quality.? There may not be a ?significant difference Daily dose Lasix #Hypertension: Blood pressure medications on hold #Indeterminate liver lesion, will need outpatient follow-up Continue to wean down oxygen as tolerated. Monitor urine output, I&O. Cardiac diet Attestations Medical Necessity Statement*: Patient requires hospitalization for obstructive uropathy, nephrolithiasis, pyelonephritis Coding Level of Care Code Acute Director Part for [facility] Diagnoses Left ureteral calculus N20.1 Obstructive pyelonephritis N11.1 Sepsis A41.9 HTN (hypertension) I10 Hypertension type: essential hypertension CHF (congestive heart failure) I50.32 Heart failure type: diastolic Heart failure chronicity: chronic
[2021-12-04] MEDS: ketorolac 30 mg/mL INJ 15 MG IVP (19:25)
[2021-12-04] MEDS: citalopram 20 mg Tablet 40 MG PO (21:15)
[2021-12-04] MEDS: zolpidem 5 mg Tablet 10 MG PO (21:15)
[2021-12-05] MEDS: enoxaparin 40 mg/0.4 mL Syringe SUBCUT (01:14)
[2021-12-05 01:15] VITALS: RESP 18
[2021-12-05] MEDS: HYDROmorphone 1 mg/mL INJ 1 mL IVP ×2 (01:15→08:08)
[2021-12-05 04:00] VITALS: BP 114/67; PULSE 90; RESP 16; TEMP 36.8; O2SAT 95
[2021-12-05 04:12] LABS: Alanine Aminotransferase 47 U/L (0-33); Albumin Level 3.4 g/dL (3.5-5.2); Alkaline Phosphatase 95 IU/L (35-105); Anion Gap 14.4 (5-19); Aspartate Amino Transferase 29 U/L (0-32); Blood Urea Nitrogen 16 mg/dL (6-20); Calcium 9.4 mg/dL (8.5-10.5); Carbon Dioxide 26 mmol/L (22-29); Chloride 104 mmol/L (98-107); Globulin 2.7 g/dL (1.3-4.6); Glomerular Filtration Rate 88.2 mL/min (90-130); Glucose 116 mg/dL (65-115); Magnesium 1.8 mg/dL (1.7-2.3); NT Pro B Type Natriuretic Pept 443 pg/mL (0-125); Osmolality Calculated 294 mOsm/kg (285-295); Potassium 3.4 mmol/L (3.5-5.1); Sodium 141 mmol/L (136-145); Total Bilirubin 0.3 mg/dL (0.15-1.2); Total Protein 6.1 g/dL (6.6-8.7)
[2021-12-05] MEDS: piperacillin-tazobactam 3.375 GM in dextrose 5% (plus) 50 ML IV (05:01)
[2021-12-05] MEDS: montelukast sodium 10 mg Tablet PO (05:02)
[2021-12-05] MEDS: ferrous sulfate EC 325 mg Tablet PO (05:02)
[2021-12-05 06:00] VITALS: PULSE 78
[2021-12-05 07:56] VITALS: BP 112/69; PULSE 89; RESP 16; TEMP 36.9; O2SAT 96
[2021-12-05] MEDS: pantoprazole DR 40 mg Tablet PO (08:05)
[2021-12-05 08:08] VITALS: RESP 19
[2021-12-05] MEDS: nystatin powder 15 gm Btl 1 APPLIC TOPICAL (08:13)
--- NOTE | 2021-12-05 10:03 | PC.SOCIAL ---
IMM Update Pg. 2 of IMM updated and reviewed with patient, who verbalized understanding. Copy provided.
--- NOTE | 2021-12-05 10:32 | P.DS_ITS ---
Discharge Providers Date of Admission: 11/30/21 00:05 Date of Discharge: December 05, 2021 Attending Provider at Admission: Phillip Austin MD Attending Provider at Discharge: Shay Parks MD Primary Care Provider: Elena Gray MD Diagnoses at Discharge Discharge Diagnosis (1) Left ureteral calculus: Status: Acute (2) Obstructive pyelonephritis: Status: Acute (3) Sepsis: Status: Acute (4) HTN (hypertension): Status: Acute Qualifiers: Hypertension type: essential hypertension Qualified Code(s): I10 - Essential (primary) hypertension (5) CHF (congestive heart failure): Status: Acute Qualifiers: Heart failure type: diastolic Heart failure chronicity: chronic Qualified Code(s): I50.32 - Chronic diastolic (congestive) heart failure Reason for Visit Reason for Visit: CP Hospital Course Hospital Course This is a 51-year-old female with a past medical history of CHF, TIA, recurrent UTIs, recurrent nephrolithiasis, history of ICD who presents [facility] for fevers and flank pain Patient was admitted to [facility] for sepsis secondary to obstructive pyelonephritis, status post left ureteral stent placement, required broad-spectrum antibiotic therapy, clinically improved, continue to have intermittent febrile episodes, repeat culture so far unremarkable, urine culture positive for Enterococcus. She was discharged home on 7 remaining days of Levaquin with close follow-up with Dr. Austin as outpatient. CT of the abdomen pelvis showed a hypodense right hepatic lobe mass, follow-up with primary care provider as outpatient for further evaluation and imaging Indeterminate hypodense right hepatic lobe mass. CT or MRI liver protocol is recommended for further assessment. History of nonischemic cardiomyopathy, EF showed a diminished ejection fraction 42%, dyskinetic septum and anteroseptal segments, follow-up with cardiology as outpatient Physical Exam Const: COMMON NORMALS: no acute distress and patient oriented x3 Resp: COMMON NORMALS: normal respiratory effort, No retractions, No use of accessory muscles and clear to auscultation bilaterally AUSCULTATION: clear to auscultation bilaterally Cardio: COMMON NORMALS: regular rate, regular rhythm, S1 normal heart sound present and S2 normal heart sound present RATE: regular rate RHYTHM: regular rhythm HEART SOUNDS: S1 normal heart sound present and S2 normal heart sound present GI: COMMON NORMALS: Normal to inspection, nondistended, normoactive bowel sounds present, Soft to palpation, non-tender, No hepatosplenomegaly present and no masses PALPATION: Yes Soft to palpation and Yes No hepatosplenomegaly present Extremity: COMMON NORMALS: no pedal edema Neuro: COMMON NORMALS: patient oriented x3 Psych: COMMON NORMALS: mental status grossly normal Urinary Catheter Management: Leger Latex: Cath Placed During This Visit: yes Urinary Catheter Date of Insertion: 11/30/21 Urinary Catheter Time of Insertion: 00:30 Discharge Data Studies Completed and Pending Completed Studies During Hospitalization Category Date Time Status CT abdomen RS [CT kidney stone [id number]] Routine Cat Scan 12/04/21 11:[address] abdomen pelvis w con* [id number] Urgent Cat Scan 11/29/21 20:58 Completed CXRP [XR chest 1V portable [id number]] AM LABS Exams 11/30/21 04:00 Completed XR KUB portable [id number] Routine Exams 12/01/21 17:08 Completed XR chest 1V portable [id number] Stat Exams 11/29/21 19:39 Completed CV. echo wo/w contrast [id number] Routine Ultrasound 11/30/21 07:09 Completed Pending at discharge Category Date Time Status Blood Culture Stat Lab 12/01/21 19:32 Results Comprehensive Metabolic Panel AM LABS Lab 12/06/21 04:00 Ordered Comprehensive Metabolic Panel AM LABS Lab 12/06/21 04:00 Ordered Comprehensive Metabolic Panel AM LABS Lab 12/07/21 04:00 Ordered Magnesium AM LABS Lab 12/06/21 04:00 Ordered NT Pro B Type Natriuretic Pept QAM Lab 12/06/21 06:00 Ordered Sputum Culture and Gram Stain Stat Lab 12/01/21 17:08 Uncollected Radiology Impressions Chest X-Ray 11/30/21 04:00 IMPRESSION: 1. Mild diffuse interstitial infiltrates noted bilaterally. This could represent interstitial pulmonary edema or pneumonia. KUB X-Ray 12/01/21 17:08 IMPRESSION: Status post left internal ureteral stenting. Abdomen/Pelvis CT 12/04/21 11:58 IMPRESSION: 1. Interval placement of a left ureteral stent and resolution of the left kidney hydronephrosis. Numerous small renal stones are present in the left ureter adjacent to the stent 2. Indeterminate hypodense right hepatic lobe mass. CT or MRI liver protocol is recommended for further assessment. Laboratory Results WBC 10.2 10^3/uL (4.0-10.0) H 12/04/21 05:15 RBC 3.27 10^6/uL (4.1-5.3) L 12/04/21 05:15 Hgb 11.2 g/dL (11.5-15.3) L 12/04/21 05:15 Hct 34.9 % (37.0-47.0) L 12/04/21 05:15 MCV 106.7 fl (81-99) H 12/04/21 05:15 MCH 34.3 pg (28.0-34.0) H 12/04/21 05:15 MCHC 32.1 g/dL (30.0-36.0) D 12/04/21 05:15 RDW 12.1 % (12.1-15.1) 12/04/21 05:15 Plt Count 106 10^3/cmm (130-400) L D 12/04/21 05:15 MPV 11.6 fL (7.4-10.4) H 12/04/21 05:15 Neut % (Auto) 76.3 % 12/04/21 05:15 Lymph % (Auto) 14.3 % 12/04/21 05:15 [place] % (Auto) 5.6 % 12/04/21 05:15 Eos % (Auto) 2.3 % 12/04/21 05:15 Baso % (Auto) 0.5 % 12/04/21 05:15 Neut # (Auto) 7.79 10^3/uL (1.8-7.7) H 12/04/21 05:15 Lymph # (Auto) 1.5 10^3/uL (0.8-4.8) 12/04/21 05:15 [place] # (Auto) 0.6 10^3/uL (0.2-0.9) 12/04/21 05:15 Eos # (Auto) 0.2 10^3/uL (0.0-0.8) 12/04/21 05:15 Baso # (Auto) 0.1 10^3/uL (0.0-0.1) 12/04/21 05:15 Nucleated RBC % (auto) 0 % 12/04/21 05:15 Nucleated RBCs # 0.0 /100WBC 12/04/21 05:15 Sodium 141 mmol/L (136-145) 12/05/21 02:39 Potassium 3.4 mmol/L (3.5-5.1) L 12/05/21 02:39 Chloride 104 mmol/L (98-107) 12/05/21 02:39 Carbon Dioxide 26 mmol/L (22-29) 12/05/21 02:39 Anion Gap 14.4 (5-19) 12/05/21 02:39 BUN 16 mg/dL (6-20) 12/05/21 02:39 Creatinine 0.7 mg/dL (0.5-0.9) 12/05/21 02:39 GFR Calculation 88.2 mL/min (90-130) L 12/05/21 02:39 Glucose 116 mg/dL (65-115) H 12/05/21 02:39 POC Glucose 102 mg/dL (70-110) 12/01/21 17:03 Calculated Osmolality 294 mOsm/kg (285-295) 12/05/21 02:39 Lactate 1.5 mmol/L (0.5-2.2) 11/29/21 19:45 Calcium 9.4 mg/dL (8.5-10.5) 12/05/21 02:39 Phosphorus 2.6 mg/dL (2.5-4.5) 12/03/21 01:50 Magnesium 1.8 mg/dL (1.7-2.3) 12/05/21 02:39 Total Bilirubin 0.3 mg/dL (0.15-1.2) 12/05/21 02:39 AST 29 U/L (0-32) 12/05/21 02:39 ALT 47 U/L (0-33) H 12/05/21 02:39 Alkaline Phosphatase 95 IU/L (35-105) 12/05/21 02:39 Troponin T Baseline 8 ng/L (0-10) 11/29/21 19:45 Troponin T 120 Minute 6.61 ng/L (0-10) 11/29/21 21:29 Delta Troponin T -1.39 ABS# (0-10) L 11/29/21 21:29 C-Reactive Protein 71.3 mg/L (0.0-4.9) H 12/03/21 01:50 NT-Pro-B Natriuret Pep 443 pg/mL (0-125) H 12/05/21 02:39 Total Protein 6.1 g/dL (6.6-8.7) L 12/05/21 02:39 Albumin 3.4 g/dL (3.5-5.2) L 12/05/21 02:39 Globulin 2.7 g/dL (1.3-4.6) 12/05/21 02:39 Lipase 21 U/L (13-60) 11/29/21 19:45 Lipase Cancelled 11/29/21 19:45 Procalcitonin 0.11 ng/mL (0-0.5) 12/04/21 05:15 Urine Color Yellow (Yellow) 11/29/21 21:10 Urine Appearance Hazy (CLEAR) A 11/29/21 21:10 Urine pH 5 (5-7) 11/29/21 21:10 Ur Specific [place] 1.015 (1.005-1.030) 11/29/21 21:10 Urine Protein Neg (Negative) 11/29/21 21:10 Urine Glucose (UA) Norm (Normal) 11/29/21 21:10 Urine Ketones Negative (Negative) 11/29/21 21:10 Urine Blood 3+ (Negative) H 11/29/21 21:10 Urine Nitrate Negative (Negative) 11/29/21 21:10 Urine Bilirubin Neg (Negative) 11/29/21 21:10 Urine Urobilinogen Norm mg/dL (Negative) 11/29/21 21:10 Ur Leukocyte Esterase 2+ (Negative) H 11/29/21 21:10 Urine RBC 25-40 /hpf (0-2) H 11/29/21 21:10 Urine WBC Too numerous to cnt /hpf (0-5) H 11/29/21 21:10 Ur Squamous Epith Cells 25-40 /hpf (0-5) H 11/29/21 21:10 Amorphous Sediment Not Reportable 11/29/21 21:10 Urine Bacteria 2+ /hpf (NONE) H 11/29/21 21:10 Nasal Influ A H1 2009 PCR Not detected (NOT DETECT) 12/01/21 18:09 Coronavirus 229E (PCR) Not detected (NOT DETECT) 12/01/21 18:10 Influenza A (H1) PCR Not detected (NOT DETECT) 12/01/21 18:09 Influenza A (H3) PCR Not detected (NOT DETECT) 12/01/21 18:09 Influenza Type A Ag Cancelled 12/01/21 18:10 Influenza Type A (PCR) Not detected (NOT DETECT) 12/01/21 18:09 Influenza Type B Ag Cancelled 12/01/21 18:10 Influenza Type B (PCR) Not detected (NOT DETECT) 12/01/21 18:09 SARS-CoV-2 (PCR) Not detected (NOT DETECT) 12/01/21 18:10 SARS-CoV-2 Ag (Rapid) Negative (Negative) 11/29/21 19:55 Vitals Last Vital Signs Temp 98.5 F 12/05/21 07:56 Pulse 89 12/05/21 07:56 Resp 19 H 12/05/21 08:08 BP 112/69 12/05/21 07:56 Pulse Ox 96 12/05/21 07:56 Discharge Plan Discharge Patient Disposition: Home Condition: Stable Prescriptions: New Nystop 100,000 unit/gram Powder 1 applic topical QID 7 Days Qty: 60 0RF levofloxacin 750 mg tablet 750 mg PO DAILY 7 Days Qty: 7 0RF Continued citalopram 40 mg tablet 40 mg PO BEDTIME 0RF zolpidem 10 mg tablet 10 mg PO BEDTIME 0RF aspirin [Adult Low Dose Aspirin] 81 mg tablet,delayed release (DR/EC) 162 mg PO QAM 0RF isosorbide mononitrate 30 mg tablet extended release 24 hr 15 mg PO BID Qty: 90 3RF nitroglycerin [Nitrostat] 0.4 mg tablet, sublingual 0.4 mg SUBLINGUAL Q5M PRN (Reason: chest pain) Qty: 25 3RF ferrous sulfate 325 mg (65 mg iron) tablet 325 mg PO QAM 0RF Lasix 20 mg Tablet 10 mg PO DAILY PRN (Reason: Edema) 0RF Vitamin B-12 50 mcg Tablet 50 mcg PO QAM 0RF tamsulosin 0.4 mg Capsule 0.4 mg PO BEDTIME 0RF montelukast 10 mg tablet 10 mg PO QAM 0RF levalbuterol tartrate 45 mcg/actuation Hfa Aerosol Inhaler 2 inh INHALATION Q6H PRN (Reason: Shortness Of Breath) 0RF hydrocodone-acetaminophen 5-325 mg Tablet 1 tab PO QID PRN (Reason: Pain) 7 Days Qty: 28 0RF Changed carvedilol 25 mg tablet 12.5 mg PO BID Qty: 360 3RF Rx Instructions: must administer with a meal/food Held spironolactone 25 mg tablet 12.5 mg PO DAILY Qty: 30 6RF Hold Instructions: Resume on 12/13/21. Hold until seen by primary care lisinopril 20 mg tablet 20 mg PO BID 0RF Hold Instructions: Resume on 12/13/21. Hold until seen by primary care Discharge Orders: Discharge Order (Routine); Ordered 12/05/21 Ordered By: Shay Parks Referrals: Elena Gray MD [Primary Care Provider] - 7-10 days (Please call Monday morning and make follow-up appointment for 7-10 days.) Phillip Austin MD [Physician] - 4-7 days (Please call Monday and make appointment for 4-7 days. ) Patient Instructions: Nystatin (On the skin), Levofloxacin (By mouth), Sepsis (DC), Ureteral Stones (DC), Opioid Safety Activity Restrictions/Additional Instructions: -Hydrate well -Take Tylenol for fevers -Take antibiotics as prescribed -Continue to hold lisinopril and spironolactone as your blood pressures are on the lower end -Coreg 12.5 twice daily -If you feel lightheaded or dizzy and your blood pressures are less than 100/60 then hold Coreg -Follow-up with primary care provider for slow reinstitution of blood pressure medications -Follow-up with Dr. Austin -For your liver lesion please follow-up with primary care provider as outpatient Discharge Attestations Time Spent in Discharge Care*: less than 30 min Quality Metrics Clinical Quality Measures [ No reported AMI, CVA or VTE this stay] Coding Level of Care Code Acute Chg FW DC note Diagnoses Left ureteral calculus N20.1 Obstructive pyelonephritis N11.1 Sepsis A41.9 HTN (hypertension) I10 Hypertension type: essential hypertension CHF (congestive heart failure) I50.32 Heart failure type: diastolic Heart failure chronicity: chronic
[2021-12-05 11:26] VITALS: BP 145/90; PULSE 87; RESP 16; TEMP 36.9; O2SAT 94
== END 2021-12-05 12:30 | disposition home or self-care (01) | DRG 853 ==
LOC: ER 23:28 → MEDSURG 11-30 00:06 → ICU 11-30 01:06 → MEDSURG 11-30 19:32
PROVIDERS: Student in an Organized Health Care Education/Training Program; Admitting Provider Urology; Emergency Provider Emergency Medicine; PCP Family Medicine; Visit Provider Family Medicine
PROC: 0TJB8ZZ Inspection of Bladder, Via Natural or Artificial Opening Endoscopic (ICD-10-PCS; CPT 52000; principal; 2021-11-29 23:35)
PROC: 0T778DZ Dilation of Left Ureter with Intraluminal Device, Via Natural or Artificial Opening Endoscopic (ICD-10-PCS; CPT 50605; 2021-11-29 23:35)
DX: A41.9 Sepsis, unspecified organism (principal); I50.23 Acute on chronic systolic (congestive) heart failure; N11.1 Chronic obstructive pyelonephritis; N30.00 Acute cystitis without hematuria; N20.1 Calculus of ureter; I42.8 Other cardiomyopathies; I11.0 Hypertensive heart disease with heart failure; I95.9 Hypotension, unspecified; R16.0 Hepatomegaly, not elsewhere classified; B95.2 Enterococcus as the cause of diseases classified elsewhere; K21.9 Gastro-esophageal reflux disease without esophagitis; Z79.82 Long term (current) use of aspirin; Z86.73 Personal history of transient ischemic attack (TIA), and cerebral infarction without residual deficits; Z87.440 Personal history of urinary (tract) infections; Z87.442 Personal history of urinary calculi; Z95.810 Presence of automatic (implantable) cardiac defibrillator; Z77.22 Contact with and (suspected) exposure to environmental tobacco smoke (acute) (chronic)
CPT/HCPCS: 36415; 36416; 71045; 74018; 74176; 74177; 80053; 81001; 82962; 83605; 83690; 83735; 83880; 84100; 84145; 84484; 85025; 86140; 87040; 87077; 87086; 87186; 87426; 87631; 87635; 93005; 96361; 96365; 96372; 96375; 97165; 99285; C2625; C8929; J0696; J1170; J1650; J1885; J1940; J2250; J2405; J2543; J3010; J7030; Q9956; Q9967

== ENCOUNTER → 2021-12-10 08:23 | Outpatient (BNVA) | payer MEDICARE, MEDICAID, SELFPAY | PROVIDERS: PCP Family Medicine; Visit Provider Urology | DX: N20.1 Calculus of ureter (principal) | CPT/HCPCS: 81003; 87635 ==

== ENCOUNTER 2021-12-15 05:58 | Day surgery (SDC) | payer MEDICARE, MEDICAID, SELFPAY ==
[2021-12-14 12:56] VITALS: BMI 27.4
[2021-12-15] VITALS (10 sets, daily range): BP systolic 96–146; BP diastolic 68–102; PULSE 81–92; RESP 16–19; TEMP 36.2–36.4; O2SAT 92–99
--- NOTE | 2021-12-15 | SCC_ITS ---
Procedure done: Cystoscopy, left ureteroscopy, laser, stent replacement (6 [place] by 26 cm double-pigtail without string. LEFT retrograde ureteropyelogram 45.1 seconds of fluoroscopic guidance, for a cumulative dose of 10.63 mGy, was provided to Dr. Austin by the radiology department. C-arm images of the abdomen were saved for the patient's permanent record. [facility]
--- NOTE | 2021-12-15 06:01 | XR_ITS ---
WS: [id number] KUB, AP view, 12/15/2021 Clinical Data: Left ureteral calculi Comparison: KUB, 12/01/2021. Findings: No abnormal intraabdominal masses are seen. There is no dilatated small bowel or evidence of obstruct ion. The left ureteral catheter is in good position. There are multiple calculi adjacent to the left urete ral stent. There are clips in the right upper quadrant from a cholecystectomy. XR/XR KUB [id number] Impression: Left ureteral stent with multiple calcifications adjacent to the midportion of the stent.
--- NOTE | 2021-12-15 06:01 | SC_ITS ---
WS: [id number] C-arm fluoroscopy for left ureteral stent placement, 12/15/2021 Clinical Data: Left ureteral calculi Comparison: None. Findings: Dr. Austin placed a left ureteral stent into the left renal pelvis. SC/C-arm FL for Urology Impression: Left ureteral stent placement.
--- NOTE | 2021-12-15 06:45 | W.PM.OPSUD ---
Surgery/Procedure H&P Update DATE OF PROCEDURE: December 15, 2021 DATE H&P PERFORMED: 12/10/21 H&P UPDATE INFORMATION: I have reviewed H&P completed within last 30 days, I have examined patient prior to procedure, No changes to prior documentation and H&P is in [facility] [place] [place] EMR on date indicated PREOP DIAGNOSIS: Obstructive pyelonephritis status post stenting PLANNED PROCEDURE: Operation Date: 12/15/21 07:00 Proposed Procedures p Cystoscopy 55691/00840/n20.1(Not Applicable) - Phillip Austin MD s Ureteroscopy(Left) - Phillip Austin MD s Laser Lithotripsy(Left) - Phillip Austin MD s Ureteral Stent Exchange(Left) - Phillip Austin MD
--- NOTE | 2021-12-15 06:47 | PM.OP ---
Operative Report Date of procedure: December 15, 2021 Pre-op diagnosis: Preop Diagnosis multiple left ureteral calculi status post stenting for obstructive pyelonephritis Post-op diagnosis: multiple left ureteral calculi status post stenting for obstructive pyelonephritis Procedure done: Cystoscopy, left ureteroscopy, laser, stent replacement (6 [place]ian by 26 cm double-pigtail without string. LEFT retrograde ureteropyelogram Implants: Left ureteral stent Pathology: Multiple ureteral stones Surgeon: Geovanna Anesthesia: General Estimated blood loss: Minimal Urine output: Not measured Complications: None Findings: >10 stones in the left ureter. Some small enough to remove with basket or graspers. Remaining required laser lithotripsy. Brief History: Ms. Pulliam is a very pleasant 51-year-old white female recently hospitalized with obstructive pyelonephritis on the left in association with a stacking of stones along the left ureter. She responded well to the emergency stenting and antibiotic therapy and is back now for attempt at definitive therapy of the remaining stones. Procedure: After routine preoperative evaluation examination and obtaining of informed consent she was taken to the operating suite on 12/15/2021 where general anesthesia was administered without difficulty after appropriate timeout was performed, SCDs confirmed to be functioning, preoperative antibiotics administered, beta-mariel protocol confirmed. Prepped and draped in the usual sterile fashion in dorsolithotomy position paying careful attention to avoiding pressure points. 21 [place]ian cystoscope with 30 degree lens was introduced into urethra meatus and advanced into the bladder to videoscopy. Bladder was systematically examined. Stent was in the expected position. No stones were seen in the bladder. A flexible tip guidewire was then easily advanced up the left ureter next to the stent bypassing the stones and curling in the area of the upper pole calyx. Grasping forceps were then utilized to withdraw the stent to the urethral meatus and then a second guidewire was passed. The first wire was secured to the drapes as a safety wire and the second wire was used as a working wire. A 24 cm ureteral access sheath was advanced over the working wire to below the level of the stones as confirmed on fluoroscopy. The inner sheath was removed guidewire was removed and a 7.5 [place]ian offset semirigid ureteroscope was advanced up the sheath to the level of the stones which were easily accessed. 365 ?m thulium superpulse laser fiber was utilized to fragment the larger stones. The smaller stones actually flushed through the sheath. The scope and laser treatment were meticulously advanced proximally in order to complete fragmentation of all the stones. The bulk of the stone fragments were washed through the sheath. This was continued until all the stones were cleared. Scope was passed all the way to the UPJ. Contrast was injected for a RETROGRADE ureteropyelogram no additional stones were seen That appeared though on the rigid scope that the renal pelvis contained a few stone fragments and for that reason it was exchanged for the video flexible ureteroscope. About 4 fragments were identified and treated with the laser into very tiny fragments were sand. Final inspection no significant fragments could be identified. Cystoscope was then backloaded over the safety wire after removal of the ureteroscope with direct visualization of the ureter and with demonstration of intactness and minimal trauma. A 6 [place]ian by 26 cm double-pigtail stent was advanced over the guidewire through the cystoscope into appropriate position as confirmed via fluoroscopy and cystoscopy. Bladder was drained and the procedure was completed. No Leger catheter. She tolerated procedure well without complications and was awakened in the operating room and returned to PACU in stable condition. PLANS: 1. Anticipate discharge from outpatient surgery 2. Follow-up in about 2 weeks in the office for cystoscopy and stent removal. KUB
[2021-12-15] MEDS: sodium chloride 0.9% 1,000 ML 30 ML IV (06:49)
[2021-12-15] MEDS: levofloxacin-dextrose 5 % 500 MG/100 ML PREMIX 100 MG IV (06:57)
--- NOTE | 2021-12-15 07:25 | ANES.PREANE2 ---
Pre-Anesthetic Assessment Height/Weight: Height 1.65 m Weight 74.843 kg Temp Pulse Resp BP Pulse Ox 97.1 F L 89 18 115/77 98 12/15/21 06:35 12/15/21 06:35 12/15/21 06:35 12/15/21 06:35 12/15/21 06:35 Preop Diagnosis: Obstructive pyelonephritis status post stenting Operation Date: 12/15/21 07:00 Proposed Procedures p Cystoscopy [id number]/n20.1(Not Applicable) - Phillip Austin MD s Ureteroscopy(Left) - Phillip Austin MD s Laser Lithotripsy(Left) - Phillip Austin MD s Ureteral Stent Exchange(Left) - Phillip Austin MD Familial anesthetic complications: None Was Beta Grady taken within 24 hours: Yes Was Clonidine taken within 24 hours: N/A Last intake: Intake Last Liquid Date 12/14/21 Last Liquid Time 20:00 Last Solid Date 12/14/21 Last Solid Time 17:30 Social No alcohol and No tobacco Exam alert, oriented x 3, clear to auscultation bilaterally and regular rate & rhythm Airway Submandibular: within normal limits Cervical ROM: within normal limits Mallampati: Class II Dentition: false (upper) Pulmonary Chronic Obstructive Pulmonary Disease CV/HEM Anemia, Coronary Artery Disease, Congestive Heart Failure and Hypertension AICD Neuropsych Anxiety Anesthetic Plan ASA status: 3 Anesthesia: MAC Risk of > 500 ml blood loss (7ml/kg in children): No Medications/Allergies Home Medications Medication Instructions Recorded Confirmed Last Taken Type citalopram 40 mg tablet (Celexa) 40 mg PO BEDTIME 01/31/20 12/15/21 12/14/21 History zolpidem 10 mg tablet 10 mg PO BEDTIME tab 01/31/20 12/15/21 12/14/21 History aspirin 81 mg tablet,delayed 162 mg PO QAM tab 01/20/21 12/14/21 12/11/21 History release (Adult Low Dose Aspirin) isosorbide mononitrate 30 mg 15 mg PO BID #90 tab 01/20/21 12/14/21 Unknown Rx tablet,extended release 24 hr nitroglycerin 0.4 mg sublingual 0.4 mg SUBLINGUAL Q5M PRN #25 tab 01/20/21 12/14/21 Unknown Rx tablet (Nitrostat) ferrous sulfate 325 mg (65 mg 325 mg PO QAM 07/22/21 12/15/21 12/15/21 History iron) tablet cyanocobalamin (vitamin B-12) 50 50 mcg PO QAM 11/30/21 12/15/21 12/15/21 History mcg tablet (Vitamin B-12) furosemide 20 mg tablet (Lasix) 10 mg PO DAILY PRN 11/30/21 12/14/21 Unknown History levalbuterol tartrate 45 2 inh INHALATION Q6H PRN 11/30/21 12/15/21 12/13/21 History mcg/actuation aerosol inhaler lisinopril 20 mg tablet 20 mg PO BID 11/30/21 12/14/21 Unknown History montelukast 10 mg tablet 10 mg PO QAM 11/30/21 12/15/21 12/15/21 History carvedilol 25 mg tablet 12.5 mg PO BID #360 tab 12/05/21 12/15/21 12/15/21 Rx hydrocodone 5 mg-acetaminophen 325 1 tab PO QID PRN 7 Days #20 tab 12/13/21 12/15/21 12/14/21 Rx mg tablet levofloxacin 500 mg tablet 500 mg PO DAILY #7 tab 12/13/21 12/15/21 12/15/21 Rx tamsulosin 0.4 mg capsule 0.4 mg PO BEDTIME #30 cap 12/13/21 12/15/21 12/14/21 Rx Allergies Allergy/AdvReac Type Severity Reaction Status Date / Time egg Allergy unknown Verified 12/10/21 07:44 morphine Allergy Unknown Verified 12/10/21 07:44 Opioids - Morphine Analogues Allergy unknown Verified 12/10/21 07:44 Current Medications Generic Name Dose Route Start Last Admin Trade Name Freq PRN Reason Stop Dose Admin Sodium Chloride 1,000 mls @ 30 mls/hr 12/15/21 06:15 12/15/21 06:49 Sodium Chloride 0.9% IV 12/16/21 06:14 30 mls/hr .Q24H AURE Administration PFSH Anesthesia Medical History Calculus of kidney with calculus of ureter CHF (congestive heart failure) History of TIA (transient ischemic attack) HTN (hypertension) ICD (implantable cardioverter-defibrillator) battery depletion Obstructive pyelonephritis Renal mass Renal stones Ureteral calculus Surgical History (Updated 12/10/21 @ 07:46 by Desire Hill LPN) Status post cholecystectomy Status post placement of cardiac pacemaker Family History Father , AT AGE 77 CAD (coronary artery disease) Cancer lung cancer Mother , AT AGE 60 Cancer OVARIAN Social History (Updated 12/10/21 @ 07:47 by Desire Hill LPN) Smoking and tobacco status: current every day smoker cigarettes Packs smoked per day: 0.5 Years cigarettes smoked: 45 Second hand smoke exposure: Yes Alcohol intake: never Lives independently: Yes Marital status: service: No Current occupational status: disabled History of recent travel: No Current gender identity: Female Data Anesthesia Cardiac Studies: Echocardiogram 11/30/21
[2021-12-15] MEDS: fentaNYL 50 mcg/mL INJ 2mL IVP (08:55)
[2021-12-15] MEDS: HYDROcodone-acetaminophen 5-325 mg Tablet 1 TAB PO (09:38)
[2021-12-15] MEDS: ondansetron 2 mg/ML SDV 2 mL 4 MG IVP (09:55)
[2021-12-15] MEDS: scopolamine 1.5 Patch 1 PATCH TRANSDERMA (09:55)
--- NOTE | 2021-12-15 11:04 | ANE.PACU2 ---
Inpatient post-anesthesia follow up: Airway intact: Yes Vital signs: Temperature 97.4 F Pulse Rate 88 Respiratory Rate 18 Blood Pressure 137/84 Pulse Oximetry 93 Oxygen Delivery Me thod Room Air Oxygen Flow Rate 6 Fraction of Inspir ed Oxygen Hydration adequate: Yes Pain level: 5 Mental status: Baseline Additional Comments: Persistent nausea, improved with scopalamine and ondansetron
[2021-12-19 12:34] LABS: Stone Source LEFT URETER
== END 2021-12-15 10:15 | disposition home or self-care (01) ==
PROVIDERS: PCP Family Medicine; Visit Provider Urology
PROC: 0TJB8ZZ Inspection of Bladder, Via Natural or Artificial Opening Endoscopic (ICD-10-PCS; CPT 52000; principal; 2021-12-15 07:00)
PROC: 0TJ98ZZ Inspection of Ureter, Via Natural or Artificial Opening Endoscopic (ICD-10-PCS; CPT 52351; 2021-12-15 07:00)
PROC: (CPT 52332; 2021-12-15 07:00)
PROC: (CPT 52332; 2021-12-15 07:00)
DX: N12 Tubulo-interstitial nephritis, not specified as acute or chronic (principal); J44.9 Chronic obstructive pulmonary disease, unspecified; I25.10 Atherosclerotic heart disease of native coronary artery without angina pectoris; I11.0 Hypertensive heart disease with heart failure; I50.9 Heart failure, unspecified; Z79.82 Long term (current) use of aspirin; Z86.73 Personal history of transient ischemic attack (TIA), and cerebral infarction without residual deficits; Z95.0 Presence of cardiac pacemaker; F17.210 Nicotine dependence, cigarettes, uncomplicated
CPT/HCPCS: 52332; 52356; 74018; 76000; 82365; 88300; C2625; J1956; J2250; J2405; J3010; J7030

== ENCOUNTER 2021-12-24 13:42 | Emergency (ER) | payer MEDICARE, MEDICAID, SELFPAY ==
[2021-12-24 13:44] VITALS: BP 126/76; PULSE 85; RESP 20; TEMP 36.8; O2SAT 96; BMI 28.3
--- NOTE | 2021-12-24 14:03 | CTR_ITS ---
PROCEDURE INFORMATION: Exam: CT Abdomen And Pelvis Without Contrast Exam date and time: 12/24/2021 2:17 PM Age: 51 years old Clinical indication: Abdominal pain; Flank; Left; Prior surgery; Surgery date: <1 month; Surgery type: Stent placement; Additional info: Pain, recent stent placement TECHNIQUE: Imaging protocol: Computed tomography of the abdomen and pelvis without contrast. Radiation optimization: All CT scans at this facility use at least one of these dose optimization techniques: automated exposure control; mA and/or kV adjustment per patient size (includes targeted exams where dose is matched to clinical indication); or iterative reconstruction. COMPARISON: CT kidney stone [id number] 12/04/2021 1:20 PM RADIATION DOSE METRICS: Total DLP (mGy-cm): 1136.84 FINDINGS: Liver: Redemonstration of an ill-defined hypoattenuating mass within the posterior right hepatic lobe series 2, image 47 which has a similar appearance to previous examination measuring roughly 3.2 x 4.1 cm in axial dimension. Gallbladder and bile ducts: Cholecystectomy. No ductal dilation. Pancreas: Normal. No ductal dilation. Spleen: Calcified granuloma noted in the spleen. No splenomegaly. Adrenal glands: Normal. No mass. Kidneys and ureters: Left ureteral stent is in proper positioning with moderate hydronephrosis of the left kidney. Improving stone burden within the left ureter. Most of the stones have resolved, there is a residual 2 mm stone within the proximal ureter series 2, image 79. A few scattered punctate nonobstructing stones are noted within both kidneys. Stomach and bowel: No obstruction. No mucosal thickening. Appendix: No evidence of appendicitis. Intraperitoneal space: Delete the No free air. No significant fluid collection. Vasculature: No abdominal aortic aneurysm. Lymph nodes: No enlarged lymph nodes. Urinary bladder: No bladder stones. No wall thickening. Reproductive: Unremarkable as visualized. Bones/joints: No acute fracture. Soft tissues: Unremarkable. CT/CT kidney stone [id number] IMPRESSION: 1. Left ureteral stent in place with moderate hydronephrosis. Improving stone burden in the left ureter with a residual 2 mm stone in the proximal ureter. The other ureteral stones have resolved. 2. A few additional punctate nonobstructing stones are noted within both kidneys. 3. Similar appearance of an ill-defined indeterminate mass within the posterior right hepatic lobe measuring up to 4 cm in size. This can be further evaluated with pre and post-contrast MRI of the liver.
--- NOTE | 2021-12-24 14:04 | ED_ITS ---
Documented by User: JASWANT Tsang 12/24/21 16:53 HPI - Back Pain/Injury General: Chief Complaint: Back Pain/Injury Stated Complaint: BACK PAIN/ POSSIBLE KIDNEY STONES Time Seen by Provider: 12/24/21 13:43 History of Present Illness: Patient arrives via ambulance with a complaint of back pain started last night and pain medications not helping him. Patient recently had ureter stent placed 2 weeks ago due to have multiple stones. Patient said she has had pain since then but this is worse in span last night has not improved. Patient says she is urinating but not much. Associated symptoms: Deny abdominal pain, chills, fever(s), nausea or vomiting Review of Systems Const: Denies: fever(s), chills or body aches Eyes: Denies: eye discomfort ENMT: Denies: throat pain Card: Denies: chest pain Resp: Denies: dyspnea GI: Denies: abdominal pain, nausea or vomiting : Reports: oliguria Musc: Reports: back pain Skin/Breast: Denies: rash Neuro: Denies: headache(s) Psych: Denies: depression or suicidal ideation PFSH ED PFSH: Medical History (Updated 12/24/21 @ 15:26 by JASWANT Tsang) Calculus of kidney with calculus of ureter CHF (congestive heart failure) History of TIA (transient ischemic attack) HTN (hypertension) ICD (implantable cardioverter-defibrillator) battery depletion Obstructive pyelonephritis Renal mass Renal stones Ureteral calculus Surgical History (Updated 12/10/21 @ 07:46 by Desire Hill LPN) Status post cholecystectomy Status post placement of cardiac pacemaker Family History Father , AT AGE 77 CAD (coronary artery disease) Cancer lung cancer Mother , AT AGE 60 Cancer OVARIAN Social History (Updated 12/10/21 @ 07:47 by Desire Hill LPN) Smoking and tobacco status: current every day smoker cigarettes Packs smoked per day: 0.5 Years cigarettes smoked: 45 Second hand smoke exposure: Yes Alcohol intake: never Lives independently: Yes Marital status: service: No Current occupational status: disabled History of recent travel: No Current gender identity: Female Physical Exam Const: COMMON NORMALS: no acute distress, patient oriented x3 and alert HENMT: COMMON NORMALS: normocephalic and external ears normal HEAD & SCALP: normocephalic EXTERNAL EAR: Yes external ears normal Eye: COMMON NORMALS: EOMs intact bilaterally Neck/C-Spine: COMMON NORMALS: no JVD Resp: COMMON NORMALS: normal respiratory effort and No use of accessory muscles Cardio: COMMON NORMALS: no JVD GI: INSPECTION: Yes normal to inspection : OTHER: Tenderness left flank. Extremity: COMMON NORMALS: normal to inspection and full ROM Neuro: COMMON NORMALS: patient oriented x3 SENSORIUM/ORIENTATION: Yes alert Psych: COMMON NORMALS: mental status grossly normal Skin: COMMON NORMALS: no rashes or lesions noted GENERAL SKIN EXAM: no rashes or lesions noted Course Vital Signs: Vital signs: Vital Signs Temperature 98.2 F 12/24/21 13:44 Pulse Rate 80 12/24/21 15:40 Respiratory Rate 20 H 12/24/21 15:40 Blood Pressure 126/77 12/24/21 15:40 Pulse Oximetry 94 12/24/21 15:40 MDM - Back Pain/Injury Medical Decision Making Patient presents via ambulance complaint of low back pain. Patient had a stent, ureter placed 2 weeks ago. And is currently taking antibiotics. Patient having slight polyuria laboratory studies including CBC UA and chemistry done no signif icant change from previous. Still showing hematuria. CT was performed patient has improving stone burden left ureter with a residual 2 mm stone proximal ureter still has indeterminate mass within posterior right hepatic lobe patient is on follow-up Dr. Austin first next week with a scheduled appointment. I encouraged patient to continue present medications and keep appointment. Labs : 12/24/21 13:53 12/24/21 13:53 Radiology Impressions Abdomen/Pelvis CT 12/24/21 14:03 IMPRESSION: 1. Left ureteral stent in place with moderate hydronephrosis. Improving stone burden in the left ureter with a residual 2 mm stone in the proximal ureter. The other ureteral stones have resolved. 2. A few additional punctate nonobstructing stones are noted within both kidneys. 3. Similar appearance of an ill-defined indeterminate mass within the posterior right hepatic lobe measuring up to 4 cm in size. This can be further evaluated with pre and post-contrast MRI of the liver. Laboratory Results WBC 7.9 10^3/uL (4.0-10.0) 12/24/21 13:53 RBC 3.59 10^6/uL (4.1-5.3) L 12/24/21 13:53 Hgb 12.5 g/dL (11.5-15.3) 12/24/21 13:53 Hct 37.3 % (37.0-47.0) 12/24/21 13:53 MCV 103.9 fl (81-99) H 12/24/21 13:53 MCH 34.8 pg (28.0-34.0) H 12/24/21 13:53 MCHC 33.5 g/dL (30.0-36.0) 12/24/21 13:53 RDW 12.8 % (12.1-15.1) 12/24/21 13:53 Plt Count 225 10^3/cmm (130-400) 12/24/21 13:53 MPV 10.6 fL (7.4-10.4) H 12/24/21 13:53 Neut % (Auto) 58.7 % 12/24/21 13:53 Lymph % (Auto) 27.5 % 12/24/21 13:53 [place] % (Auto) 8.8 % 12/24/21 13:53 Eos % (Auto) 3.3 % 12/24/21 13:53 Baso % (Auto) 1.1 % 12/24/21 13:53 Neut # (Auto) 4.60 10^3/uL (1.8-7.7) 12/24/21 13:53 Lymph # (Auto) 2.2 10^3/uL (0.8-4.8) 12/24/21 13:53 [place] # (Auto) 0.7 10^3/uL (0.2-0.9) 12/24/21 13:53 Eos # (Auto) 0.3 10^3/uL (0.0-0.8) 12/24/21 13:53 Baso # (Auto) 0.1 10^3/uL (0.0-0.1) 12/24/21 13:53 Nucleated RBC % (auto) 0 % 12/24/21 13:53 Nucleated RBCs # 0.0 /100WBC 12/24/21 13:53 Sodium 138 mmol/L (136-145) 12/24/21 13:53 Potassium 4.3 mmol/L (3.5-5.1) 12/24/21 13:53 Chloride 105 mmol/L (98-107) 12/24/21 13:53 Carbon Dioxide 22 mmol/L (22-29) 12/24/21 13:53 Anion Gap 15.3 (5-19) 12/24/21 13:53 BUN 12 mg/dL (6-20) 12/24/21 13:53 Creatinine 0.7 mg/dL (0.5-0.9) 12/24/21 13:53 GFR Calculation 88.2 mL/min (90-130) L 12/24/21 13:53 Glucose 92 mg/dL (65-115) 12/24/21 13:53 Calculated Osmolality 285 mOsm/kg (285-295) 12/24/21 13:53 Calcium 9.2 mg/dL (8.5-10.5) 12/24/21 13:53 Urine Color Yellow (Yellow) 12/24/21 13:53 Urine Appearance Hazy (CLEAR) A 12/24/21 13:53 Urine pH 5 (5-7) 12/24/21 13:53 Ur Specific [place] 1.025 (1.005-1.030) 12/24/21 13:53 Urine Protein 1+ (Negative) H 12/24/21 13:53 Urine Glucose (UA) Norm (Normal) 12/24/21 13:53 Urine Ketones Negative (Negative) 12/24/21 13:53 Urine Blood 3+ (Negative) H 12/24/21 13:53 Urine Nitrate Negative (Negative) 12/24/21 13:53 Urine Bilirubin Neg (Negative) 12/24/21 13:53 Urine Urobilinogen Neg mg/dL (Negative) 12/24/21 13:53 Ur Leukocyte Esterase 2+ (Negative) H 12/24/21 13:53 Urine RBC Too numerous to cnt /hpf (0-2) H 12/24/21 13:53 Urine WBC 15-25 /hpf (0-5) H 12/24/21 13:53 Ur Squamous Epith Cells 5-10 /hpf (0-5) H 12/24/21 13:53 Amorphous Sediment Not Reportable 12/24/21 13:53 Urine Bacteria Trace /hpf (NONE) 12/24/21 13:53 Discharge Plan Discharge Patient Disposition: Home Clinical Impression: Renal colic, Hematuria Back pain Qualifiers: Back pain location: back pain in other location Chronicity: chronic Qualified Code(s): M54.9 - Dorsalgia, unspecified Condition: Stable Prescriptions: No Action citalopram [Celexa] 40 mg tablet 40 mg PO BEDTIME 0RF zolpidem 10 mg tablet 10 mg PO BEDTIME 0RF aspirin [Adult Low Dose Aspirin] 81 mg tablet,delayed release (DR/EC) 162 mg PO QAM 0RF isosorbide mononitrate 30 mg tablet extended release 24 hr 15 mg PO BID Qty: 90 3RF nitroglycerin [Nitrostat] 0.4 mg tablet, sublingual 0.4 mg SUBLINGUAL Q5M PRN (Reason: chest pain) Qty: 25 3RF ferrous sulfate 325 mg (65 mg iron) tablet 325 mg PO QAM 0RF tamsulosin 0.4 mg capsule 0.4 mg PO BEDTIME Qty: 30 12RF levofloxacin 500 mg tablet 500 mg PO DAILY Qty: 7 1RF hydrocodone-acetaminophen 5-325 mg tablet 1 tab PO QID PRN (Reason: Pain) 5 Days Qty: 20 0RF lisinopril 20 mg tablet 20 mg PO BID 0RF Hold Instructions: Resume on 12/13/21. Hold until seen by primary care furosemide [Lasix] 20 mg Tablet 10 mg PO DAILY PRN (Reason: Edema) 0RF Vitamin B-12 50 mcg Tablet 50 mcg PO QAM 0RF montelukast 10 mg tablet 10 mg PO QAM 0RF levalbuterol tartrate 45 mcg/actuation Hfa Aerosol Inhaler 2 inh INHALATION Q6H PRN (Reason: Shortness Of Breath) 0RF carvedilol 25 mg tablet 12.5 mg PO BID Qty: 360 3RF Rx Instructions: must administer with a meal/food Discharge Orders: Discharge ED (Routine); Ordered 12/24/21 Ordered By: Geovany Rowland Referrals: Elena Gray MD [Primary Care Provider] - Discharge Diet: Usual diet Discharge Activity: Increase activity as tolerated Activity Restrictions/Additional Instructions: Continue present medication including pain medicine antibiotic that was prescribed to you by Dr. Austin. Contact Dr. Austin's office and see about getting a follow-up appointment first next week. Coding Level of Care Code ED Lang Interpreter for Chg Fwd Exam Comprehensive Documented by User: Amy Mckay MD 12/24/21 22:07 HPI - Back Pain/Injury General: Chief Complaint: Back Pain/Injury Stated Complaint: BACK PAIN/ POSSIBLE KIDNEY STONES Time Seen by Provider: 12/24/21 13:43 PFSH ED PFSH: Medical History (Updated 12/24/21 @ 15:26 by JASWANT Tsang) Calculus of kidney with calculus of ureter CHF (congestive heart failure) History of TIA (transient ischemic attack) HTN (hypertension) ICD (implantable cardioverter-defibrillator) battery depletion Obstructive pyelonephritis Renal mass Renal stones Ureteral calculus Surgical History (Updated 12/10/21 @ 07:46 by Desire Hill LPN) Status post cholecystectomy Status post placement of cardiac pacemaker Family History Father , AT AGE 77 CAD (coronary artery disease) Cancer lung cancer Mother , AT AGE 60 Cancer OVARIAN Social History (Updated 12/10/21 @ 07:47 by Desire Hill LPN) Smoking and tobacco status: current every day smoker cigarettes Packs smoked per day: 0.5 Years cigarettes smoked: 45 Second hand smoke exposure: Yes Alcohol intake: never Lives independently: Yes Marital status: service: No Current occupational status: disabled History of recent travel: No Current gender identity: Female Course Vital Signs: Vital signs: Vital Signs Temperature 98.2 F 12/24/21 13:44 Pulse Rate 80 12/24/21 15:40 Respiratory Rate 20 H 12/24/21 15:40 Blood Pressure 126/77 12/24/21 15:40 Pulse Oximetry 94 12/24/21 15:40 MDM - Back Pain/Injury Medical Decision Making Patient presents via ambulance complaint of low back pain. Patient had a stent, ureter placed 2 weeks ago. And is currently taking antibiotics. Patient having slight polyuria laboratory studies including CBC UA and chemistry done no significant change from previous. Still showing hematuria. CT was performed patient has improving stone burden left ureter with a residual 2 mm stone proximal ureter still has indeterminate mass within posterior right hepatic lobe patient is on follow-up Dr. Austin first next week with a scheduled appointment. I encouraged patient to continue present medications and keep appointment. Dr. Mckay - Patient evaluation, diagnosis, and management was performed independently by Geovany Rowland. I did not personally see the patient nor staff the patient with patient's provider. I did review the patient's note today and I believe this note is consistent. Labs : 12/24/21 13:53 12/24/21 13:53 Radiology Impressions Abdomen/Pelvis CT 12/24/21 14:03 IMPRESSION: 1. Left ureteral stent in place with moderate hydronephrosis. Improving stone burden in the left ureter with a residual 2 mm stone in the proximal ureter. The other ureteral stones have resolved. 2. A few additional punctate nonobstructing stones are noted within both kidneys. 3. Similar appearance of an ill-defined indeterminate mass within the posterior right hepatic lobe measuring up to 4 cm in size. This can be further evaluated with pre and post-contrast MRI of the liver. Laboratory Results WBC 7.9 10^3/uL (4.0-10.0) 12/24/21 13:53 RBC 3.59 10^6/uL (4.1-5.3) L 12/24/21 13:53 Hgb 12.5 g/dL (11.5-15.3) 12/24/21 13:53 Hct 37.3 % (37.0-47.0) 12/24/21 13:53 MCV 103.9 fl (81-99) H 12/24/21 13:53 MCH 34.8 pg (28.0-34.0) H 12/24/21 13:53 MCHC 33.5 g/dL (30.0-36.0) 12/24/21 13:53 RDW 12.8 % (12.1-15.1) 12/24/21 13:53 Plt Count 225 10^3/cmm (130-400) 12/24/21 13:53 MPV 10.6 fL (7.4-10.4) H 12/24/21 13:53 Neut % (Auto) 58.7 % 12/24/21 13:53 Lymph % (Auto) 27.5 % 12/24/21 13:53 [place] % (Auto) 8.8 % 12/24/21 13:53 Eos % (Auto) 3.3 % 12/24/21 13:53 Baso % (Auto) 1.1 % 12/24/21 13:53 Neut # (Auto) 4.60 10^3/uL (1.8-7.7) 12/24/21 13:53 Lymph # (Auto) 2.2 10^3/uL (0.8-4.8) 12/24/21 13:53 [place] # (Auto) 0.7 10^3/uL (0.2-0.9) 12/24/21 13:53 Eos # (Auto) 0.3 10^3/uL (0.0-0.8) 12/24/21 13:53 Baso # (Auto) 0.1 10^3/uL (0.0-0.1) 12/24/21 13:53 Nucleated RBC % (auto) 0 % 12/24/21 13:53 Nucleated RBCs # 0.0 /100WBC 12/24/21 13:53 Sodium 138 mmol/L (136-145) 12/24/21 13:53 Potassium 4.3 mmol/L (3.5-5.1) 12/24/21 13:53 Chloride 105 mmol/L (98-107) 12/24/21 13:53 Carbon Dioxide 22 mmol/L (22-29) 12/24/21 13:53 Anion Gap 15.3 (5-19) 12/24/21 13:53 BUN 12 mg/dL (6-20) 12/24/21 13:53 Creatinine 0.7 mg/dL (0.5-0.9) 12/24/21 13:53 GFR Calculation 88.2 mL/min (90-130) L 12/24/21 13:53 Glucose 92 mg/dL (65-115) 12/24/21 13:53 Calculated Osmolality 285 mOsm/kg (285-295) 12/24/21 13:53 Calcium 9.2 mg/dL (8.5-10.5) 12/24/21 13:53 Urine Color Yellow (Yellow) 12/24/21 13:53 Urine Appearance Hazy (CLEAR) A 12/24/21 13:53 Urine pH 5 (5-7) 12/24/21 13:53 Ur Specific [place] 1.025 (1.005-1.030) 12/24/21 13:53 Urine Protein 1+ (Negative) H 12/24/21 13:53 Urine Glucose (UA) Norm (Normal) 12/24/21 13:53 Urine Ketones Negative (Negative) 12/24/21 13:53 Urine Blood 3+ (Negative) H 12/24/21 13:53 Urine Nitrate Negative (Negative) 12/24/21 13:53 Urine Bilirubin Neg (Negative) 12/24/21 13:53 Urine Urobilinogen Neg mg/dL (Negative) 12/24/21 13:53 Ur Leukocyte Esterase 2+ (Negative) H 12/24/21 13:53 Urine RBC Too numerous to cnt /hpf (0-2) H 12/24/21 13:53 Urine WBC 15-25 /hpf (0-5) H 12/24/21 13:53 Ur Squamous Epith Cells 5-10 /hpf (0-5) H 12/24/21 13:53 Amorphous Sediment Not Reportable 12/24/21 13:53 Urine Bacteria Trace /hpf (NONE) 12/24/21 13:53 Discharge Plan Discharge Patient Disposition: Home Clinical Impression: Renal colic, Hematuria Back pain Qualifiers: Back pain location: back pain in other location Chronicity: chronic Qualified Code(s): M54.9 - Dorsalgia, unspecified Condition: Stable Prescriptions: No Action citalopram [Celexa] 40 mg tablet 40 mg PO BEDTIME 0RF zolpidem 10 mg tablet 10 mg PO BEDTIME 0RF aspirin [Adult Low Dose Aspirin] 81 mg tablet,delayed release (DR/EC) 162 mg PO QAM 0RF isosorbide mononitrate 30 mg tablet extended release 24 hr 15 mg PO BID Qty: 90 3RF nitroglycerin [Nitrostat] 0.4 mg tablet, sublingual 0.4 mg SUBLINGUAL Q5M PRN (Reason: chest pain) Qty: 25 3RF ferrous sulfate 325 mg (65 mg iron) tablet 325 mg PO QAM 0RF tamsulosin 0.4 mg capsule 0.4 mg PO BEDTIME Qty: 30 12RF levofloxacin 500 mg tablet 500 mg PO DAILY Qty: 7 1RF hydrocodone-acetaminophen 5-325 mg tablet 1 tab PO QID PRN (Reason: Pain) 5 Days Qty: 20 0RF lisinopril 20 mg tablet 20 mg PO BID 0RF Hold Instructions: Resume on 12/13/21. Hold until seen by primary care furosemide [Lasix] 20 mg Tablet 10 mg PO DAILY PRN (Reason: Edema) 0RF Vitamin B-12 50 mcg Tablet 50 mcg PO QAM 0RF montelukast 10 mg tablet 10 mg PO QAM 0RF levalbuterol tartrate 45 mcg/actuation Hfa Aerosol Inhaler 2 inh INHALATION Q6H PRN (Reason: Shortness Of Breath) 0RF carvedilol 25 mg tablet 12.5 mg PO BID Qty: 360 3RF Rx Instructions: must administer with a meal/food Discharge Orders: Discharge ED (Routine); Ordered 12/24/21 Ordered By: Geovany Rowland Referrals: Elena Gray MD [Primary Care Provider] - Discharge Diet: Usual diet Discharge Activity: Increase activity as tolerated Activity Restrictions/Additional Instructions: Continue present medication including pain medicine antibiotic that was prescribed to you by Dr. Austin. Contact Dr. Austin's office and see about getting a follow-up appointment first next week. Coding Level of Care Code ED Lang Interpreter for Jesusg Fwd Exam Comprehensive
[2021-12-24 14:07] VITALS: RESP 16
[2021-12-24] MEDS: HYDROmorphone 1 mg/mL INJ 1 mL 0.5 MG IVP ×2 (14:07→14:41)
[2021-12-24 14:10] LABS: Basophils # 0.1 10^3/uL (0.0-0.1); Basophils % 1.1 %; Eosinophils # 0.3 10^3/uL (0.0-0.8); Eosinophils % 3.3 %; Hematocrit 37.3 % (37.0-47.0); Hemoglobin 12.5 g/dL (11.5-15.3); Lymphocytes # 2.2 10^3/uL (0.8-4.8); Lymphocytes % 27.5 %; Mean Corpuscular HGB Conc 33.5 g/dL (30.0-36.0); Mean Corpuscular Hemoglobin 34.8 pg (28.0-34.0); Mean Corpuscular Volume 103.9 fl (81-99); Mean Platelet Volume 10.6 fL (7.4-10.4); Monocytes # 0.7 10^3/uL (0.2-0.9); Monocytes % 8.8 %; Neutrophils % 58.7 %; Nucleated Red Blood Cells % 0 %; Platelet Count 225 10^3/cmm (130-400); Red Blood Count 3.59 10^6/uL (4.1-5.3); Red Cell Distribution Width 12.8 % (12.1-15.1); White Blood Count 7.9 10^3/uL (4.0-10.0)
[2021-12-24 14:24] LABS: Add Urine Microscopic? YES; Bilirubin Urine Neg (Negative); Blood Urine 3+ (Negative); Glucose Urine UA Norm (Normal); Ketones Urine Negative (Negative); Leukocyte Esterase Urine 2+ (Negative); Nitrate Urine Negative (Negative); Protein Urine 1+ (Negative); RBC Urine TOO NUMEROUS TO CNT /hpf (0-2); Specific Gravity, Urine 1.025 (1.005-1.030); Urine Appearance Hazy (CLEAR); Urine Color Yellow (Yellow); Urobilinogen Urine Neg (Negative); WBC Urine 15-25 /hpf (0-5); pH Urine 5 (5-7)
[2021-12-24 14:25] LABS: Add Urine Culture? Yes; Bacteria Urine TRACE /hpf
[2021-12-24 14:31] LABS: Blood Urea Nitrogen 12 mg/dL (6-20); Calcium 9.2 mg/dL (8.5-10.5); Carbon Dioxide 22 mmol/L (22-29); Chloride 105 mmol/L (98-107); Glomerular Filtration Rate 88.2 mL/min (90-130); Glucose 92 mg/dL (65-115); Osmolality Calculated 285 mOsm/kg (285-295); Sodium 138 mmol/L (136-145)
[2021-12-24 14:35] LABS: Anion Gap 15.3 (5-19); Potassium 4.3 mmol/L (3.5-5.1)
[2021-12-24 14:41] VITALS: RESP 18
[2021-12-24 14:43] VITALS: BP 129/73; PULSE 82; RESP 18; O2SAT 93
[2021-12-24 15:35] VITALS: BP 125/71; PULSE 82; RESP 18; O2SAT 94
[2021-12-24 15:40] VITALS: BP 126/77; PULSE 80; RESP 20; O2SAT 94
== END 2021-12-24 15:41 | disposition home or self-care (01) ==
PROVIDERS: Emergency Provider Nurse Practitioner Family; PCP Family Medicine
DX: M54.9 Dorsalgia, unspecified (principal); N23 Unspecified renal colic; R31.9 Hematuria, unspecified; Z79.82 Long term (current) use of aspirin; Z87.442 Personal history of urinary calculi; I11.0 Hypertensive heart disease with heart failure; I50.9 Heart failure, unspecified; Z86.73 Personal history of transient ischemic attack (TIA), and cerebral infarction without residual deficits; Z95.0 Presence of cardiac pacemaker; F17.210 Nicotine dependence, cigarettes, uncomplicated
CPT/HCPCS: 74176; 80048; 81001; 85025; 87086; 96374; 96376; 99284; J1170

== ENCOUNTER 2021-12-28 22:04 | Emergency (ER) | payer MEDICARE, MEDICAID, SELFPAY ==
--- NOTE | 2021-12-28 22:11 | CTR_ITS ---
PROCEDURE INFORMATION: Exam: CT Abdomen And Pelvis Without Contrast Exam date and time: 12/28/2021 10:23 PM Age: 51 years old Clinical indication: Abdominal pain; Localized; Prior surgery; Surgery type: Pacemaker. Ureteral stent. ; Patient HX: C/O left flank pain. History of stones. Left ureteral stent placed three weeks ago. ; Additional info: L flank pain TECHNIQUE: Imaging protocol: Computed tomography of the abdomen and pelvis without contrast. Radiation optimization: All CT scans at this facility use at least one of these dose optimization techniques: automated exposure control; mA and/or kV adjustment per patient size (includes targeted exams where dose is matched to clinical indication); or iterative reconstruction. COMPARISON: CT kidney stone [id number] 12/24/2021 2:17 PM RADIATION DOSE METRICS: Total DLP (mGy-cm): 1454.17 FINDINGS: Tubes, catheters and devices: Stable left double pigtail ureteral stent. Liver: Stable heterogeneous 3.5 cm low-density lesion posterior segment right liver. Gallbladder and bile ducts: Stable cholecystectomy. Pancreas: Normal. No ductal dilation. Spleen: Calcified splenic granulomas. One or more accessory splenules. Adrenal glands: Normal. No mass. Kidneys and ureters: Bilateral nonobstructing renal calyceal stones. Resolution of left hydronephrosis since the previous exam. Stomach and bowel: Unremarkable. No obstruction. No mucosal thickening. Appendix: No evidence of appendicitis. Intraperitoneal space: Unremarkable. No free air. No significant fluid collection. Vasculature: Calcification of the abdominal aorta and/or iliac arteries consistent with atherosclerotic vessel disease. Lymph nodes: Unremarkable. No enlarged lymph nodes. Urinary bladder: Unremarkable as visualized. Reproductive: Unremarkable as visualized. Bones/joints: Unremarkable. No acute fracture. Soft tissues: Unremarkable. CT/CT kidney stone [id number] IMPRESSION: 1. Bilateral nonobstructing renal calyceal stones. 2. Stable left double pigtail ureteral stent. 3. Resolution of left hydronephrosis since the previous exam.
--- NOTE | 2021-12-28 22:12 | W.ED.ABDPA2 ---
HPI - Abdominal Pain General: Chief Complaint: Abdominal Pain Stated Complaint: KIDNEY STONES Time Seen by Provider: 12/28/21 22:05 Source: patient and EMS Mode of arrival: EMS Limitations: no limitations History of Present Illness: 51-year-old female has a history of kidney stones she had a stent placed left ureter 3 weeks ago. She states that she has been having increasing pain she was seen here on Monday had a CT scan that she states showed an another stone on the left side states that tonight she has been having pain she cannot control states the pain is a 9 out of 10. She has had no vomiting or diarrhea denies any fevers. Associated Symptoms: Denies chills, diarrhea, fever(s), nausea and vomiting Review of Systems Const: Denies: fever(s), chills, body aches or change in appetite Eyes: Denies: blurry vision or eye discomfort ENMT: Denies: throat pain or dental pain Card: Denies: chest pain Resp: Denies: dyspnea GI: Denies: abdominal pain, nausea, vomiting or diarrhea : Reports: flank pain Musc: Denies: neck pain or back pain Skin/Breast: Denies: rash Neuro: Denies: headache(s) Psych: Denies: depression Cedric/Lymph: Denies: easy bruising All/Imm: Denies: urticaria PFSH ED PFSH: Medical History Calculus of kidney with calculus of ureter CHF (congestive heart failure) History of TIA (transient ischemic attack) HTN (hypertension) ICD (implantable cardioverter-defibrillator) battery depletion Obstructive pyelonephritis Renal mass Renal stones Ureteral calculus Surgical History Status post cholecystectomy Status post placement of cardiac pacemaker Family History Father , AT AGE 77 CAD (coronary artery disease) Cancer lung cancer Mother , AT AGE 60 Cancer OVARIAN Social History Smoking and tobacco status: current every day smoker cigarettes Packs smoked per day: 0.5 Years cigarettes smoked: 45 Second hand smoke exposure: Yes Alcohol intake: never Lives independently: Yes Marital status: service: No Current occupational status: disabled History of recent travel: No Current gender identity: Female Physical Exam Const: COMMON NORMALS: no acute distress, patient oriented x3 and healthy appearing HENMT: COMMON NORMALS: normocephalic and atraumatic HEAD & SCALP: normocephalic and atraumatic Eye: COMMON NORMALS: Equal, round and reactive pupils present and EOMs intact bilaterally PUPIL: Yes Equal, round and reactive pupils present Neck/C-Spine: COMMON NORMALS: full ROM and supple Chest: COMMONS NORMALS: normal inspection of the chest and normal palpation of entire chest wall Resp: COMMON NORMALS: normal respiratory effort, No retractions, No use of accessory muscles and clear to auscultation bilaterally AUSCULTATION: clear to auscultation bilaterally Cardio: COMMON NORMALS: regular rate, regular rhythm and No murmurs present (Cardio) RATE: regular rate RHYTHM: regular rhythm GI: COMMON NORMALS: Normal to inspection, nondistended, normoactive bowel sounds present, Soft to palpation, non-tender and no masses PALPATION: Yes Soft to palpation Extremity: COMMON NORMALS: normal to inspection and full ROM Neuro: COMMON NORMALS: patient oriented x3, moves all extremities and no focal motor deficits Psych: COMMON NORMALS: mental status grossly normal, Normal thought process present and cooperative THOUGHT PROCESS: Normal thought process present Skin: COMMON NORMALS: no rashes or lesions noted and no wounds GENERAL SKIN EXAM: no rashes or lesions noted Course Vital Signs: Vital signs: Vital Signs Temperature 97.8 F 12/28/21 22:26 Pulse Rate 78 12/28/21 23:24 Respiratory Rate 17 12/28/21 23:24 Blood Pressure 120/62 12/28/21 23:24 Pulse Oximetry 94 12/28/21 23:24 MDM - Abdominal Pain Medical Decision Making Patient presents with flank pain history of kidney stone and stent placement she has no signs of infection blood works normal CT shows improved hydronephrosis her pains improved here she is stable for discharge is to follow-up with urologist return if worsening. Lab Data : 12/28/21 23:18 12/28/21 23:18 Labs/Radiology: Radiology Impressions Abdomen/Pelvis CT 12/28/21 22:11 IMPRESSION: 1. Bilateral nonobstructing renal calyceal stones. 2. Stable left double pigtail ureteral stent. 3. Resolution of left hydronephrosis since the previous exam. Laboratory Results WBC 6.7 10^3/uL (4.0-10.0) 12/28/21 23:18 RBC 3.70 10^6/uL (4.1-5.3) L 12/28/21 23:18 Hgb 12.5 g/dL (11.5-15.3) 12/28/21 23:18 Hct 37.8 % (37.0-47.0) 12/28/21 23:18 MCV 102.2 fl (81-99) H 12/28/21 23:18 MCH 33.8 pg (28.0-34.0) 12/28/21 23:18 MCHC 33.1 g/dL (30.0-36.0) 12/28/21 23:18 RDW 12.7 % (12.1-15.1) 12/28/21 23:18 Plt Count 193 10^3/cmm (130-400) 12/28/21 23:18 MPV 10.4 fL (7.4-10.4) 12/28/21 23:18 Neut % (Auto) 54.4 % 12/28/21 23:18 Lymph % (Auto) 29.9 % 12/28/21 23:18 Wallace % (Auto) 9.0 % 12/28/21 23:18 Eos % (Auto) 4.7 % 12/28/21 23:18 Baso % (Auto) 1.1 % 12/28/21 23:18 Neut # (Auto) 3.62 10^3/uL (1.8-7.7) 12/28/21 23:18 Lymph # (Auto) 2.0 10^3/uL (0.8-4.8) 12/28/21 23:18 Wallace # (Auto) 0.6 10^3/uL (0.2-0.9) 12/28/21 23:18 Eos # (Auto) 0.3 10^3/uL (0.0-0.8) 12/28/21 23:18 Baso # (Auto) 0.1 10^3/uL (0.0-0.1) 12/28/21 23:18 Nucleated RBC % (auto) 0 % 03/22/22 23:18 Nucleated RBCs # 0.0 /100WBC 12/28/21 23:18 Sodium 138 mmol/L (136-145) 12/28/21 23:18 Potassium 3.5 mmol/L (3.5-5.1) 12/28/21 23:18 Chloride 105 mmol/L (98-107) 12/28/21 23:18 Carbon Dioxide 21 mmol/L (22-29) L 12/28/21 23:18 Anion Gap 15.5 (5-19) 12/28/21 23:18 BUN 14 mg/dL (6-20) 12/28/21 23:18 Creatinine 0.8 mg/dL (0.5-0.9) 12/28/21 23:18 GFR Calculation 75.6 mL/min (90-130) L 12/28/21 23:18 Glucose 90 mg/dL (65-115) 12/28/21 23:18 Calculated Osmolality 286 mOsm/kg (285-295) 12/28/21 23:18 Calcium 9.5 mg/dL (8.5-10.5) 12/28/21 23:18 Total Bilirubin 0.4 mg/dL (0.15-1.2) 12/28/21 23:18 AST 17 U/L (0-32) 12/28/21 23:18 ALT 13 U/L (0-33) 12/28/21 23:18 Alkaline Phosphatase 77 IU/L (35-105) 12/28/21 23:18 Total Protein 6.6 g/dL (6.6-8.7) 12/28/21 23:18 Albumin 4.1 g/dL (3.5-5.2) 12/28/21 23:18 Globulin 2.5 g/dL (1.3-4.6) 12/28/21 23:18 Lipase 15 U/L (13-60) 12/28/21 23:18 Urine Color Dark yellow (Yellow) 12/29/21 00:28 Urine Appearance Cloudy (CLEAR) 12/29/21 00:28 Urine pH 5 (5-7) 12/29/21 00:28 Ur Specific P[place]ree 1.030 (1.005-1.030) 12/29/21 00:28 Urine Protein 1+ (Negative) H 12/29/21 00:28 Urine Glucose (UA) Norm (Normal) 12/29/21 00:28 Urine Ketones Negative (Negative) 12/29/21 00:28 Urine Blood 3+ (Negative) H 12/29/21 00:28 Urine Nitrate Negative (Negative) 12/29/21 00:28 Urine Bilirubin Neg (Negative) 12/29/21 00:28 Urine Urobilinogen Norm mg/dL (Negative) 12/29/21 00:28 Ur Leukocyte Esterase 2+ (Negative) H 12/29/21 00:28 Urine RBC >100 /hpf (0-2) H 12/29/21 00:28 Urine WBC 0-4 /hpf (0-5) H 12/29/21 00:28 Ur Squamous Epith Cells 25-40 /hpf (0-5) H 12/29/21 00:28 Amorphous Sediment Not Reportable 12/29/21 00:28 Urine Bacteria 1+ /hpf (NONE) H 12/29/21 00:28 Discharge Plan Discharge Patient Disposition: Home Clinical Impression: Left flank pain Condition: Stable Prescriptions: No Action citalopram [Celexa] 40 mg tablet 40 mg PO BEDTIME 0RF zolpidem 10 mg tablet 10 mg PO BEDTIME 0RF aspirin [Adult Low Dose Aspirin] 81 mg tablet,delayed release (DR/EC) 162 mg PO QAM 0RF isosorbide mononitrate 30 mg tablet extended release 24 hr 15 mg PO BID Qty: 90 3RF nitroglycerin [Nitrostat] 0.4 mg tablet, sublingual 0.4 mg SUBLINGUAL Q5M PRN (Reason: chest pain) Qty: 25 3RF ferrous sulfate 325 mg (65 mg iron) tablet 325 mg PO QAM 0RF tamsulosin 0.4 mg capsule 0.4 mg PO BEDTIME Qty: 30 12RF levofloxacin 500 mg tablet 500 mg PO DAILY Qty: 7 1RF hydrocodone-acetaminophen 5-325 mg tablet 1 tab PO QID PRN (Reason: Pain) 5 Days Qty: 20 0RF lisinopril 20 mg tablet 20 mg PO BID 0RF Hold Instructions: Resume on 12/13/21. Hold until seen by primary care furosemide [Lasix] 20 mg Tablet 10 mg PO DAILY PRN (Reason: Edema) 0RF Vitamin B-12 50 mcg Tablet 50 mcg PO QAM 0RF montelukast 10 mg tablet 10 mg PO QAM 0RF levalbuterol tartrate 45 mcg/actuation Hfa Aerosol Inhaler 2 inh INHALATION Q6H PRN (Reason: Shortness Of Breath) 0RF carvedilol 25 mg tablet 12.5 mg PO BID Qty: 360 3RF Rx Instructions: must administer with a meal/food Discharge Orders: Discharge ED (Routine); Ordered 12/29/21 Ordered By: Marc Mora Referrals: Elena Gray MD [Primary Care Provider] - Phillip Austin MD [Physician] - 1-3 days Discharge Diet: Advance as tolerated Discharge Activity: Resume usual activity Patient Instructions: Flank Pain (ED) Coding Level of Care Code ED Pre Sales Network Engineer for Jesusg Fwd Exam Comprehensive
[2021-12-28 22:26] VITALS: BP 113/82; PULSE 88; RESP 18; TEMP 36.6; O2SAT 94; BMI 27.4
[2021-12-28 23:15] VITALS: RESP 17
[2021-12-28] MEDS: ondansetron 2 mg/ML SDV 2 mL 4 MG IVP (23:15)
[2021-12-28] MEDS: HYDROmorphone 1 mg/mL INJ 1 mL IVP (23:15)
[2021-12-28] MEDS: sodium chloride 0.9% 1,000 ML 999 ML IV (23:18)
[2021-12-28 23:24] VITALS: BP 120/62; PULSE 78; RESP 17; O2SAT 94
[2021-12-28 23:26] LABS: Basophils # 0.1 10^3/uL (0.0-0.1); Basophils % 1.1 %; Eosinophils # 0.3 10^3/uL (0.0-0.8); Eosinophils % 4.7 %; Hematocrit 37.8 % (37.0-47.0); Hemoglobin 12.5 g/dL (11.5-15.3); Lymphocytes % 29.9 %; Mean Corpuscular HGB Conc 33.1 g/dL (30.0-36.0); Mean Corpuscular Hemoglobin 33.8 pg (28.0-34.0); Mean Corpuscular Volume 102.2 fl (81-99); Mean Platelet Volume 10.4 fL (7.4-10.4); Monocytes # 0.6 10^3/uL (0.2-0.9); Neutrophils # 3.62 10^3/uL (1.8-7.7); Neutrophils % 54.4 %; Nucleated Red Blood Cells % 0 %; Platelet Count 193 10^3/cmm (130-400); Red Cell Distribution Width 12.7 % (12.1-15.1); White Blood Count 6.7 10^3/uL (4.0-10.0)
[2021-12-28 23:46] LABS: Alanine Aminotransferase 13 U/L (0-33); Albumin Level 4.1 g/dL (3.5-5.2); Alkaline Phosphatase 77 IU/L (35-105); Anion Gap 15.5 (5-19); Aspartate Amino Transferase 17 U/L (0-32); Blood Urea Nitrogen 14 mg/dL (6-20); Calcium 9.5 mg/dL (8.5-10.5); Carbon Dioxide 21 mmol/L (22-29); Chloride 105 mmol/L (98-107); Globulin 2.5 g/dL (1.3-4.6); Glomerular Filtration Rate 75.6 mL/min (90-130); Glucose 90 mg/dL (65-115); Lipase 15 U/L (13-60); Osmolality Calculated 286 mOsm/kg (285-295); Potassium 3.5 mmol/L (3.5-5.1); Sodium 138 mmol/L (136-145); Total Bilirubin 0.4 mg/dL (0.15-1.2); Total Protein 6.6 g/dL (6.6-8.7)
[2021-12-29 00:44] LABS: Add Urine Culture? No; Add Urine Microscopic? YES; Bacteria Urine 1+ /hpf; Bilirubin Urine Neg (Negative); Blood Urine 3+ (Negative); Glucose Urine UA Norm (Normal); Ketones Urine Negative (Negative); Leukocyte Esterase Urine 2+ (Negative); Nitrate Urine Negative (Negative); Protein Urine 1+ (Negative); RBC Urine >100 /hpf (0-2); Squamous Epithelial Cell Urine 25-40 /hpf (0-5); Urine Appearance Cloudy (CLEAR); Urine Color Dark Yellow (Yellow); Urobilinogen Urine Norm (Negative); WBC Urine 0-4 /hpf (0-5); pH Urine 5 (5-7)
[2021-12-29 01:01] VITALS: BP 127/64; PULSE 79; RESP 16; O2SAT 95
== END 2021-12-29 01:04 | disposition home or self-care (01) ==
PROVIDERS: Emergency Provider Emergency Medicine; PCP Family Medicine
DX: R10.9 Unspecified abdominal pain (principal); Z79.82 Long term (current) use of aspirin; I11.0 Hypertensive heart disease with heart failure; I50.9 Heart failure, unspecified; Z86.73 Personal history of transient ischemic attack (TIA), and cerebral infarction without residual deficits; F17.210 Nicotine dependence, cigarettes, uncomplicated; Z95.0 Presence of cardiac pacemaker; Z87.442 Personal history of urinary calculi
CPT/HCPCS: 74176; 80053; 81001; 83690; 85025; 96361; 96374; 96375; 99284; J1170; J2405; J7030

== ENCOUNTER 2021-12-30 07:13 | Outpatient (CLI) | payer MEDICARE, MEDICAID, SELFPAY ==
--- NOTE | 2021-12-30 07:15 | XR_ITS ---
WS: [id number] K[facility], AP view, 12/30/2021 Clinical Data: URETERAL CALCULUS Comparison: [facility]UB, 12/15/2021. Findings: No abnormal intraabdominal masses are seen. There is no dilatated small bowel or evidence of obstruct ion. The left ureteral stent remains in good position. The calcifications adjacent to the stent are not ap parent. There is a large amount of fecal material throughout the colon. There are clips in the right upper quadrant from a cholecystectomy. XR/XR KUB [id number] Impression: 1. No change in left ureteral stent. 2. Multiple calcifications which were adjacent to the left ureteral stent are n ot visible.
== END 2021-12-30 07:14 | disposition home or self-care (01) ==
PROVIDERS: PCP Family Medicine; Visit Provider Urology
DX: N20.1 Calculus of ureter (principal); Z96.0 Presence of urogenital implants
CPT/HCPCS: 74018

== ENCOUNTER 2021-12-30 19:09 | Emergency (ER) | payer MEDICARE, MEDICAID, SELFPAY ==
[2021-12-30 19:59] VITALS: BP 137/75; PULSE 100; RESP 24; TEMP 37.3; O2SAT 98; BMI 27.4
== END 2021-12-30 20:28 | disposition left against medical advice (07) ==
PROVIDERS: Emergency Provider Family Medicine; PCP Family Medicine
DX: Z53.21 Procedure and treatment not carried out due to patient leaving prior to being seen by health care provider (principal)
CPT/HCPCS: 81003; 99282

== ENCOUNTER → 2022-01-12 13:40 | Outpatient (BNVA) | payer MEDICARE, MEDICAID, SELFPAY | PROVIDERS: PCP Family Medicine; Visit Provider Nurse Practitioner Family | DX: I50.32 Chronic diastolic (congestive) heart failure (principal); I11.0 Hypertensive heart disease with heart failure; F17.210 Nicotine dependence, cigarettes, uncomplicated | CPT/HCPCS: 99214 ==

== ENCOUNTER 2022-01-21 17:06 | Emergency (ER) | payer MEDICARE, MEDICAID, SELFPAY ==
[2022-01-21 17:26] VITALS: BP 138/76; PULSE 88; RESP 18; TEMP 36.6; O2SAT 98; BMI 28.3
--- NOTE | 2022-01-21 17:49 | W.ED.WOUNDLC ---
HPI - Wound/Laceration General: Chief Complaint: Wound/Laceration Stated Complaint: Cut finger, on blood thinners Time Seen by Provider: 01/21/22 17:45 History of Present Illness: Patient comes in for injury to the right index finger. Patient was opening up a can of refried beans and cut the radial side of her right thumb. Patient is on aspirin daily and had difficulty controlling the bleeding and came into the ER. On arrival to the ER at the bleeding was controlled. Patient cannot remember her last tetanus shot. Associated symptoms: Denies fever(s) Review of Systems General: Reports: 10 or more systems reviewed and unremarkable except in HPI and below Const: Denies: fever(s) Card: Denies: chest pain Resp: Denies: dyspnea Musc: Reports: extremity pain Skin/Breast: Reports: new lesions [facility] ED PFSH: Medical History Calculus of kidney with calculus of ureter CHF (congestive heart failure) History of TIA (transient ischemic attack) HTN (hypertension) ICD (implantable cardioverter-defibrillator) battery depletion Obstructive pyelonephritis Renal mass Renal stones Ureteral calculus Surgical History Status post cholecystectomy Status post placement of cardiac pacemaker Family History Father , AT AGE 77 CAD (coronary artery disease) Cancer lung cancer Mother , AT AGE 60 Cancer OVARIAN Social History Smoking and tobacco status: current every day smoker cigarettes Packs smoked per day: 0.5 Years cigarettes smoked: 45 Second hand smoke exposure: Yes Alcohol intake: never Lives independently: Yes Marital status: service: No Current occupational status: disabled History of recent travel: No Current gender identity: Female Physical Exam Const: COMMON NORMALS: alert Neck/C-Spine: COMMON NORMALS: full ROM Resp: COMMON NORMALS: normal respiratory effort and clear to auscultation bilaterally AUSCULTATION: clear to auscultation bilaterally Cardio: COMMON NORMALS: regular rate and regular rhythm RATE: regular rate RHYTHM: regular rhythm Extremity: RIGHT UPPER EXTREMITY: Yes hand & digits (Normal range of motion, 1 cm laceration first PIP) Right hand and digits: Yes inspection, Yes palpation and Yes ROM exam Neuro: SENSORIUM/ORIENTATION: Yes alert Skin: TRAUMA: laceration (Right index finger) linear Procedures Laceration Laceration 1: Site: hand Side (If applicable): right Size (cm): 1 Description: linear Depth: simple, single layer Local Anesthetic: lidocaine 1% and with epi Amount of anesthesia used (mL): 2 Pre-repair: wound explored and irrigated extensively Skin layer closed with: nylon Size (cm): 4-0 Number of sutures: 1 Technique: horizontal mattress Course Vital Signs: Vital signs: Vital Signs Temperature 97.8 F 01/21/22 17:26 Pulse Rate 88 01/21/22 17: Respiratory Rate 18 01/21/22 17: Blood Pressure 138/76 01/21/22 17: Pulse Oximetry 98 01/21/22 17:26 MDM - Wound/Laceration Medical Decision Making Patient comes in for bleeding to the wound of the right index finger. On exam patient has 1 cm laceration to the radial aspect of the first PIP joint of the right index finger. Normal range of motion is noted. Distal cap refill is intact. Differential diagnosis includes but not limited to foreign body, fracture, laceration, no fracture or foreign body was noted into the wound. Wound was repaired with suture. Patient tolerated well. Bleeding was controlled. Patient was covered with prophylactic antibiotic through the laceration being over the joint of the finger. Patient reported understanding of care plan. Tetanus shot was updated. Discharge Plan Discharge Patient Disposition: Home Clinical Impression: Finger laceration Qualifiers: Encounter type: initial encounter Finger: index finger Damage to nail status: without damage Foreign body presence: without foreign body Laterality: right Qualified Code(s): S61.210A - Laceration without foreign body of right index finger without damage to nail, initial encounter Condition: Stable Prescriptions: New cephalexin 500 mg capsule 500 mg PO BID 7 Days Qty: 14 0RF No Action citalopram [Celexa] 40 mg tablet 40 mg PO BEDTIME 0RF zolpidem 10 mg tablet 10 mg PO BEDTIME 0RF aspirin [Adult Low Dose Aspirin] 81 mg tablet,delayed release (DR/EC) 162 mg PO QAM 0RF isosorbide mononitrate 30 mg tablet extended release 24 hr 15 mg PO BID Qty: 90 3RF nitroglycerin [Nitrostat] 0.4 mg tablet, sublingual 0.4 mg SUBLINGUAL Q5M PRN (Reason: chest pain) Qty: 25 3RF ferrous sulfate 325 mg (65 mg iron) tablet 325 mg PO QAM 0RF hydrocodone-acetaminophen 7.5-325 mg tablet 1 tab PO Q8H PRN (Reason: renal colic) 7 Days Qty: 20 0RF carvedilol 25 mg tablet 25 mg PO BID Qty: 60 4RF spironolactone 25 mg tablet 12.5 mg PO DAILY 0RF tamsulosin 0.4 mg capsule See Rx Instructions .ROUTE .COMPLEX Qty: 30 0RF Dose Instruction: Take 1 capsule by mouth once daily Rx Instructions: Take 1 capsule by mouth once daily lisinopril 20 mg tablet 20 mg PO BID 0RF Hold Instructions: Resume on 12/13/21. Hold until seen by primary care furosemide [Lasix] 20 mg Tablet 10 mg PO DAILY PRN (Reason: Edema) 0RF Vitamin B-12 50 mcg Tablet 50 mcg PO QAM 0RF montelukast 10 mg tablet 10 mg PO QAM 0RF levalbuterol tartrate 45 mcg/actuation Hfa Aerosol Inhaler 2 inh INHALATION Q6H PRN (Reason: Shortness Of Breath) 0RF Discharge Orders: Discharge ED (Routine); Ordered 01/21/22 Ordered By: Kenny Carbajal Referrals: Elena Gray MD [Primary Care Provider] - Discharge Diet: Usual diet Discharge Activity: Increase activity as tolerated Patient Instructions: Finger Laceration (ED) Activity Restrictions/Additional Instructions: Wear supportive dressing. Suture needs to come out in 7 days. Monitor site for signs of infection. Take prophylactic antibiotics cephalexin 500 mg twice a day for 7 days. Drink plenty of water with antibiotic. Use acetaminophen and ibuprofen for pain. Follow-up with primary care 1 week for recheck. Return to ER for new concerns. Coding Level of Care Code ED Paper Testing Supervisor for Wesley Herrera
[2022-01-21] MEDS: tetanus-dipt-pertussis 0.5 mL SDV IM (18:19)
[2022-01-21] MEDS: cephALEXin 500 mg Capsule PO (18:19)
== END 2022-01-21 18:27 | disposition home or self-care (01) ==
PROVIDERS: Emergency Provider Nurse Practitioner Family; PCP Family Medicine
DX: S61.011A Laceration without foreign body of right thumb without damage to nail, initial encounter (principal); W26.8XXA Contact with other sharp object(s), not elsewhere classified, initial encounter; Z23 Encounter for immunization
CPT/HCPCS: 12001; 90471; 90715; 99283

== ENCOUNTER → 2022-03-01 15:10 | Outpatient (BNVA) | payer MEDICARE, MEDICAID, SELFPAY | PROVIDERS: PCP Family Medicine; Visit Provider Internal Medicine Cardiovascular Disease | DX: Z01.810 Encounter for preprocedural cardiovascular examination (principal); I11.0 Hypertensive heart disease with heart failure; I50.32 Chronic diastolic (congestive) heart failure; I42.8 Other cardiomyopathies; Z95.810 Presence of automatic (implantable) cardiac defibrillator | CPT/HCPCS: 99214 ==

== ENCOUNTER → 2022-03-11 11:20 | Outpatient (BNVA) | payer MEDICARE, MEDICAID, SELFPAY | PROVIDERS: PCP Family Medicine; Visit Provider Internal Medicine Cardiovascular Disease | DX: Z45.02 Encounter for adjustment and management of automatic implantable cardiac defibrillator (principal) | CPT/HCPCS: 93282 ==

== ENCOUNTER 2022-03-25 18:41 | Inpatient (IN) | payer MEDICARE, MEDICAID, SELFPAY ==
[2022-03-25 18:54] VITALS: BP 145/94; PULSE 115; RESP 18; TEMP 36.8; O2SAT 97; BMI 27.9
--- NOTE | 2022-03-25 19:12 | XRR_ITS ---
PROCEDURE INFORMATION: Exam: XR Left Hip Exam date and time: 03/25/2022 7:17 PM Age: 52 years old Clinical indication: Hip pain; Left hip TECHNIQUE: Imaging protocol: Radiologic exam of the Left hip. Views: 2 or 3 views hip with pelvis when performed. COMPARISON: CT kidney stone [id number] 12/28/2021 10:23 PM FINDINGS: Bones/joints: Mildly displaced left intertrochanteric femur fracture. The other bones appear intact. Soft tissues: Unremarkable. XR/XR hip LT 2-3V wo/w pel* [id number] IMPRESSION: Left intertrochanteric femur fracture.
--- NOTE | 2022-03-25 19:12 | XRR_ITS ---
PROCEDURE INFORMATION: Exam: XR Left Knee Exam date and time: 03/25/2022 7:19 PM Age: 52 years old Clinical indication: Injury or trauma; Fall; Blunt trauma; Knee; Left; Additional info: Knee pain TECHNIQUE: Imaging protocol: Radiologic exam of the Left knee. Views: 1 or 2 views. COMPARISON: No relevant prior studies available. FINDINGS: Bones/joints: Normal. Soft tissues: Normal. XR/XR knee LT 1-2V [id number] IMPRESSION: No acute findings.
[2022-03-25 19:28] VITALS: RESP 22
[2022-03-25] MEDS: HYDROmorphone 1 mg/mL INJ 1 mL 0.5 MG IVP ×2 (19:28→20:10)
[2022-03-25 19:39] LABS: Basophils # 0.1 10^3/uL (0.0-0.1); Basophils % 0.4 %; Eosinophils # 0.2 10^3/uL (0.0-0.8); Hematocrit 34.7 % (37.0-47.0); Lymphocytes # 1.9 10^3/uL (0.8-4.8); Lymphocytes % 16.6 %; Mean Corpuscular HGB Conc 34.6 g/dL (30.0-36.0); Mean Corpuscular Hemoglobin 33.5 pg (28.0-34.0); Mean Corpuscular Volume 96.9 fl (81-99); Mean Platelet Volume 11.2 fL (7.4-10.4); Monocytes # 0.6 10^3/uL (0.2-0.9); Monocytes % 4.8 %; Neutrophils # 8.75 10^3/uL (1.8-7.7); Neutrophils % 75.6 %; Nucleated Red Blood Cells % 0 %; Platelet Count 187 10^3/cmm (130-400); Red Blood Count 3.58 10^6/uL (4.1-5.3); Red Cell Distribution Width 13.4 % (12.1-15.1); White Blood Count 11.6 10^3/uL (4.0-10.0)
[2022-03-25 19:50] LABS: INR 1.02 (0.8-1.2)
--- NOTE | 2022-03-25 19:54 | W.ED.GENADLT ---
HPI - General Adult General: Chief complaint: Fall Stated complaint: HIP PAIN/FALL Time Seen by Provider: 03/25/22 18:55 History of Present Illness: Patient is a 52-year-old female with history of CHF with AICD, hypertension who presents emergency room after an episode of mechanical fall. Patient was walking when she tripped and fell earlier today. Patient reported that an hour ago since patient has had left-sided hip pain. Patient denies any headache, head injuries, or other signs of trauma. Patient is not on any anticoagulation. Patient denies any associate chest pain, shortness of palpitation or lightheadedness prior to the episode fall. Patient has not been able to bear weight on the left leg. Onset:1 hr ago Duration:ongoing Location:home Severity:moderate Associated symptoms: Deny chest pain, dyspnea, nausea, rash, palpitations or vomiting Review of Systems Const: Denies: fever(s) or chills Eyes: Denies: change in vision ENMT: Denies: mouth pain Card: Denies: chest pain or palpitations Resp: Denies: dyspnea or non-productive cough GI: Denies: abdominal pain, nausea, vomiting or diarrhea : Denies: dysuria Musc: Reports: extremity pain (+L hip pain) Skin/Breast: Denies: rash or new lesions Neuro: Denies: weakness in extremities Psych: Reports: other (Normal mood) Cedric/Lymph: Denies: easy bruising PFSH ED PFSH: Medical History (Updated 03/31/22 @ 20:50 by Amy Mckay MD) CHF (congestive heart failure) Related to nonischemic cardiomyopathy, most recent ejection fraction with with EF 42%. History of recurrent UTIs History of TIA (transient ischemic attack) HTN (hypertension) ICD (implantable cardioverter-defibrillator) in place Mass of right lobe of liver ~3.5 x 4 cm, indeterminant, hypodense, first noted 11/2021 Nonischemic cardiomyopathy Specific etiology unknown, may have been viral or related to uncontrolled hypertension from her recollection Echocardiogram November 2021 with ejection fraction of 42% Obstructive pyelonephritis (~11/2021) Renal stones Ureteral calculus Surgical History (Updated 03/25/22 @ 22:54 by Adelina Garcia MD) S/P ureteral stent placement (~11/2021) Status post cholecystectomy Status post placement of cardiac pacemaker Family History (Updated 03/25/22 @ 22:56 by Adelina Garcia MD) Father , AT AGE 77 CAD (coronary artery disease) Cancer lung cancer Mother , AT AGE 60 Cancer OVARIAN Denies family history of Clotting disorder Anesthesia complication Bleeding disorder Social History (Updated 03/25/22 @ 22:55 by Adelina Garcia MD) Smoking and tobacco status: current every day smoker cigarettes Packs smoked per day: 0.5 Years cigarettes smoked: 45 Second hand smoke exposure: Yes Alcohol intake: current Lives independently: Yes Marital status: service: No Current occupational status: disabled Current gender identity: Female Physical Exam Const: COMMON NORMALS: alert HENMT: COMMON NORMALS: atraumatic HEAD & SCALP: atraumatic MOUTH: moist mucous membranes not abnormal Eye: COMMON NORMALS: EOMs intact bilaterally and conjunctivae normal CONJUNCTIVA: Yes conjunctivae normal Neck/C-Spine: COMMON NORMALS: full ROM and supple Resp: COMMON NORMALS: normal respiratory effort and clear to auscultation bilaterally AUSCULTATION: clear to auscultation bilaterally Cardio: COMMON NORMALS: regular rate RATE: regular rate GI: COMMON NORMALS: Soft to palpation and non-tender PALPATION: Yes Soft to palpation Extremity: NARRATIVE EXTREMITY EXAM: +limited ROM of the L hip due to significant pain + Vascular exam intact, no focal tenderness palpation distal to the left hip Neuro: SENSORIUM/ORIENTATION: Yes alert MOTOR EXAM: No Abnormal motor strength present and Other motor observations present (no focal motor deficits) Psych: COMMON NORMALS: speech normal SPEECH: Yes normal speech MOOD & AFFECT: Yes euthymic mood Course Vital Signs: Vital signs: Vital Signs Temperature 97.1 F L 03/29/22 15:59 Pulse Rate 77 03/29/22 15:59 Respiratory Rate 16 03/29/22 15:59 Blood Pressure 96/60 03/29/22 15:59 Pulse Oximetry 92 03/29/22 16:40 [facility] - General Adult Medical Decision Making 52-year-old female presents emergency room after after episode of mechanical fall. Patient has left-sided hip pain. Range of motion severely limited on the left hip due to significant pain. X-ray showed intertrochanteric fracture. Case was discussed with Dr. Camacho who recommended admission at this time. Patient received multiple Dilaudid, Zofran in the emergency room. Pain appears to mildly improved. Disposition: admission Lab Data : 03/27/22 04:00 03/29/22 01:56 Radiology Impressions Knee X-Ray 03/25/22 19:12 IMPRESSION: No acute findings. Hip/Pelvis X-Ray 03/26/22 08:00 IMPRESSION: 1. Satisfactory internal fixation involving an intertrochanteric fracture of the left hip. Chest X-Ray 03/28/22 10:16 IMPRESSION: 1. No acute cardiopulmonary finding. No change. Chest CTA 03/28/22 12:54 IMPRESSION: 1. Dependent lung atelectasis with no consolidation/ground-glass opacity. 2. Cardiac and other nonacute thoracic findings as above. 3. Renal abnormality. See discussion above. Laboratory Results WBC 11.6 10^3/uL (4.0-10.0) H 03/25/22 19:30 RBC 3.58 10^6/uL (4.1-5.3) L 03/25/22 19:30 Hgb 12.0 g/dL (11.5-15.3) 03/25/22 19:30 Hct 34.7 % (37.0-47.0) L 03/25/22 19:30 MCV 96.9 fl (81-99) 03/25/22 19:30 MCH 33.5 pg (28.0-34.0) 03/25/22 19:30 MCHC 34.6 g/dL (30.0-36.0) 03/25/22 19:30 RDW 13.4 % (12.1-15.1) 03/25/22 19:30 Plt Count 187 10^3/cmm (130-400) 03/25/22 19:30 MPV 11.2 fL (7.4-10.4) H 03/25/22 19:30 Neut % (Auto) 75.6 % 03/25/22 19:30 Lymph % (Auto) 16.6 % 03/25/22 19:30 Kendall % (Auto) 4.8 % 03/25/22 19:30 Eos % (Auto) 2.0 % 03/25/22 19:30 Baso % (Auto) 0.4 % 03/25/22 19:30 Neut # (Auto) 8.75 10^3/uL (1.8-7.7) H 03/25/22 19:30 Lymph # (Auto) 1.9 10^3/uL (0.8-4.8) 03/25/22 19:30 Kendall # (Auto) 0.6 10^3/uL (0.2-0.9) 03/25/22 19:30 Eos # (Auto) 0.2 10^3/uL (0.0-0.8) 03/25/22 19:30 Baso # (Auto) 0.1 10^3/uL (0.0-0.1) 03/25/22 19:30 Nucleated RBC % (auto) 0 % 03/25/22: Nucleated RBCs # 0.0 /100WBC 03/25/22 19:30 PT 13.70 SECONDS (12.1-14.9) 03/25/22 19:30 INR 1.02 (0.8-1.2) 03/25/22 19:30 APTT 30.0 SECONDS (23.9-36.7) 03/25/22 19:30 Sodium 138 mmol/L (136-145) 03/25/22 19:30 Potassium 3.7 mmol/L (3.5-5.1) 03/25/22 19:30 Chloride 103 mmol/L (98-107) 03/25/22 19:30 Carbon Dioxide 20 mmol/L (22-29) L 03/25/22 19:30 Anion Gap 18.7 (5-19) 03/25/22 19:30 BUN 20 mg/dL (6-20) 03/25/22 19:30 Creatinine 1.2 mg/dL (0.5-0.9) H 03/25/22 19:30 GFR Calculation 47.2 mL/min (90-130) L 03/25/22 19:30 Glucose 93 mg/dL (65-115) 03/25/22 19:30 Calculated Osmolality 288 mOsm/kg (285-295) 03/25/22 19:30 Calcium 9.2 mg/dL (8.5-10.5) 03/25/22 19:30 Imaging Data Other Imaging: Radiologist's impression: [employer] [address] XRay Report Signed Patient: Elena Pulliam Unit #: [id number] : 1970 Age/Sex: 52 / F ADM Date: 03/25/22 Loc: ER Room/Bed: Attending Dr: Ordering Provider/Ordering MD: Amy Mckay MD Date of Service: 03/25/22 Procedure(s): XR knee LT 1-2V 22647 Accession Number(s): [id number] Report Number: [id number] PROCEDURE INFORMATION: Exam: XR Left Knee Exam date and time: 03/25/2022 7:19 PM Age: 52 years old Clinical indication: Injury or trauma; Fall; Blunt trauma; Knee; Left; Additional info: Knee pain TECHNIQUE: Imaging protocol: Radiologic exam of the Left knee. Views: 1 or 2 views. COMPARISON: No relevant prior studies available. FINDINGS: Bones/joints: Normal. Soft tissues: Normal. XR/XR knee LT 1-2V 36379 IMPRESSION: No acute findings. ? Dictated By: Jeffrey Juarez Signed By: Jeffrey Juarez Signed Date/Time: 03/25/222004 DD/ [address] [address] XRay Report Signed Patient: Elena Pulliam Unit #: [id number] : 1970 Age/Sex: 52 / F ADM Date: 03/25/22 Loc: ER Room/Bed: Attending Dr: Ordering Provider/Ordering MD: Amy Mckay MD Date of Service: 03/25/22 Procedure(s): XR hip LT 2-3V wo/w pel* [id number] Accession Number(s): [id number] Report Number: [id number] PROCEDURE INFORMATION: Exam: XR Left Hip Exam date and time: 03/25/2022 7:17 PM Age: 52 years old Clinical indication: Hip pain; Left hip TECHNIQUE: Imaging protocol: Radiologic exam of the Left hip. Views: 2 or 3 views hip with pelvis when performed. COMPARISON: CT kidney stone [id number] 12/28/2021 10:23 PM FINDINGS: Bones/joints: Mildly displaced left intertrochanteric femur fracture. The other bones appear intact. Soft tissues: Unremarkable. XR/XR hip LT 2-3V wo/w pel* [id number] IMPRESSION: Left intertrochanteric femur fracture. ? Dictated By: Jeffrey Juarez Signed By: Jeffrey Juarez Signed Date/Time: 03/25/222005 DD/ 16 Discharge Plan Discharge Patient Disposition: Admitted As Inpatient Admit Provider: Adelina Garcia Clinical Impression: Closed hip fracture Condition: Stable Discharge Diet: Usual diet and Cardiac Discharge Activity: Increase activity as tolerated, Limit activity as instructed and Use walker/crutches as instructed Coding Level of Care Code ED Rate Reviewer for Chg Fwd Exam Comprehensive
[2022-03-25 19:55] LABS: Anion Gap 18.7 (5-19); Blood Urea Nitrogen 20 mg/dL (6-20); Calcium 9.2 mg/dL (8.5-10.5); Carbon Dioxide 20 mmol/L (22-29); Chloride 103 mmol/L (98-107); Glomerular Filtration Rate 47.2 mL/min (90-130); Glucose 93 mg/dL (65-115); Osmolality Calculated 288 mOsm/kg (285-295); Potassium 3.7 mmol/L (3.5-5.1); Sodium 138 mmol/L (136-145)
[2022-03-25 20:10] VITALS: RESP 20
[2022-03-25] MEDS: ondansetron 2 mg/ML SDV 2 mL 4 MG IVP ×2 (20:15→22:31)
[2022-03-25 21:20] VITALS: RESP 20
[2022-03-25] MEDS: morphine 4 mg/mL SDV 1 mL IVP (21:20)
--- NOTE | 2022-03-25 21:31 | P.CONIM_ITS ---
Providers/Reason For Consult Consulting Physician/Specialty*: Valencia Camacho MD Reason for Consult*: Left intertrochanteric hip fracture Requesting Physician: Amy Mckay MD Attending Physician: Adelina Garcia MD Primary Care Provider: Elena Gray MD History of Present Illness History of Present Illness Elena Pulliam is a 52 year old female who presented to the emergency department after a fall. The patient notes that she was power washing her deck, and when she went to walk up the steps, she fell. She is uncertain as to whether her shoe got stuck or she just did not lift her leg far enough. She was brought to the emergency department by ambulance, and at that time, she was found to have an left intertrochanteric hip fracture. I received a call from Dr. Mckay. The patient was also seen by Dr. Adelina Garcia who evaluated her as she had a significant cardiac history. She has recently been cleared for an elective surgery by Dr. Pineda. Dr. Garcia felt she was safe from a cardiac standpoint for further surgery. The patient denied any other reason for her fall outside of mechanical. Review of Systems Const: Denies: fever(s) or chills Eyes: Denies: change in vision ENMT: Denies: throat pain, mouth pain or nasal congestion Card: Reports: dyspnea on exertion (Improves with rest, not acutely worse); Denies: chest pain, palpitations, edema or orthopnea Resp: Reports: dyspnea (Sometimes); Denies: productive cough, non-productive cough or wheezing GI: Reports: nausea (Associated with pain) and constipation (Take stool softener at home); Denies: abdominal pain, vomiting or diarrhea : Reports: other (No flank pain); Denies: difficulty voiding, dysuria or hematuria Musc: Reports: extremity pain (Left hip, severe since fall) and other; Denies: joint warmth Skin/Breast: Denies: rash, pruritus, sores or new lesions Neuro: Reports: other (Denies focal weakness or new paresthesias); Denies: weakness in extremities Psych: Reports: other (Normal mood) Cedric/Lymph: Denies: easy bruising or easy bleeding All/Imm: Denies: acute wheezing Medications/Allergies Home Medications Medication Instructions Recorded Confirmed Last Taken Type citalopram 40 mg tablet (Celexa) 40 mg PO BEDTIME 01/31/20 03/25/22 03/24/22 22:00 History zolpidem 10 mg tablet 10 mg PO BEDTIME tab 01/31/20 03/25/22 03/24/22 22:00 History aspirin 81 mg tablet,delayed 162 mg PO QAM tab 01/20/21 03/25/22 03/25/22 History release (Adult Low Dose Aspirin) nitroglycerin 0.4 mg sublingual 0.4 mg SUBLINGUAL Q5M PRN #25 tab 01/20/21 03/25/22 Unknown Rx tablet (Nitrostat) ferrous sulfate 325 mg (65 mg 325 mg PO QAM 07/22/21 03/25/22 03/25/22 08:00 History iron) tablet cyanocobalamin (vitamin B-12) 50 50 mcg PO QAM 11/30/21 03/25/22 03/25/22 08:00 History mcg tablet (Vitamin B-12) furosemide 20 mg tablet (Lasix) 10 mg PO DAILY PRN 11/30/21 03/25/22 Unknown History levalbuterol tartrate 45 2 inh INHALATION Q6H PRN 11/30/21 03/25/22 03/25/22 History mcg/actuation aerosol inhaler lisinopril 20 mg tablet 20 mg PO BID 11/30/21 03/25/22 03/25/22 08:00 History montelukast 10 mg tablet 10 mg PO QAM 11/30/21 03/25/22 03/25/22 08:00 History carvedilol 25 mg tablet 25 mg PO BID #60 tab 01/12/22 03/25/22 03/25/22 08:00 Rx spironolactone 25 mg tablet 12.5 mg PO DAILY 01/12/22 03/25/22 03/25/22 08:00 History Allergies Allergy/AdvReac Type Severity Reaction Status Date / Time egg Allergy unknown Verified 01/12/22 13:49 morphine Allergy Unknown Verified 01/12/22 13:49 Opioids - Morphine Analogues Allergy unknown Verified 01/12/22 13:49 Current Medications Generic Name Dose Route Start Last Admin Trade Name Freq PRN Reason Stop Dose Admin Morphine Sulfate 4 mg 03/25/22 20:24 03/25/22 21:20 Morphine 4 Mg/Ml Sdv 1 Ml IVP 4 mg Q4H PRN Administration SEVERE PAIN PFSH Acute PFSH: Medical History (Updated 03/26/22 @ 00:44 by Adelina Garcia MD) CHF (congestive heart failure) Related to nonischemic cardiomyopathy, most recent ejection fraction with wit h EF 42%. History of recurrent UTIs History of TIA (transient ischemic attack) HTN (hypertension) ICD (implantable cardioverter-defibrillator) in place Mass of right lobe of liver ~3.5 x 4 cm, indeterminant, hypodense, first noted 11/2021 Nonischemic cardiomyopathy Specific etiology unknown, may have been viral or related to uncontrolled hypertension from her recollection Echocardiogram November 2021 with ejection fraction of 42% Obstructive pyelonephritis (~11/2021) Renal stones Ureteral calculus Surgical History (Updated 03/25/22 @ 22:54 by Adelina Garcia MD) S/P ureteral stent placement (~11/2021) Status post cholecystectomy Status post placement of cardiac pacemaker Family History (Updated 03/25/22 @ 22:56 by Adelina Garcia MD) Father , AT AGE 77 CAD (coronary artery disease) Cancer lung cancer Mother , AT AGE 60 Cancer OVARIAN Denies family history of Clotting disorder Anesthesia complication Bleeding disorder Social History (Updated 03/25/22 @ 22:55 by Adelina Garcia MD) Smoking and tobacco status: current every day smoker cigarettes Packs smoked per day: 0.5 Years cigarettes smoked: 45 Second hand smoke exposure: Yes Alcohol intake: current Alcohol use comment: occassional Substance/Drug Use: never Lives independently: Yes Marital status: service: No Current occupational status: disabled Current gender identity: Female Dietary Habits: Current diet type/program: regular Vitals/I&O/Wt Last Vital Signs Temp 98.2 F 03/25/22 18:54 Pulse 115 H 03/25/22 18:54 Resp 20 H 03/25/22 21:20 BP 145/94 03/25/22 18:54 Pulse Ox 97 03/25/22 18:54 Weight last 48 hrs Weight 168 lb Physical Exam Const: COMMON NORMALS: no acute distress, patient oriented x3 and alert GENERAL APPEARANCE: cooperative and comfortable ORIENTATION/CONSCIOUSNESS: Yes awake HENMT: COMMON NORMALS: normocephalic and atraumatic HEAD & SCALP: normocephalic and atraumatic Eye: GENERAL EYE: appearance normal, both eyes and all related structures Chest: COMMONS NORMALS: normal inspection of the chest Resp: COMMON NORMALS: normal respiratory effort EFFORT & INSPECTION: Yes able to speak in complete sentences and Yes symmetric chest movement Extremity: LEFT LOWER EXTREMITY: Yes hip joint (No significant ecchymosis or swelling) Left hip: Yes palpation (Tender to palpation.), Yes ROM (Not evaluated secondary to fracture.) and Yes neurovascular exam (Intact distally.) Neuro: COMMON NORMALS: patient oriented x3 SENSORIUM/ORIENTATION: Yes alert Psych: COMMON NORMALS: mental status grossly normal APPEARANCE: Yes grossly normal ATTITUDE: Yes calm and Yes engaged ATTENTION/CONCENTRATION: Yes attention grossly intact Skin: COMMON NORMALS: no rashes or lesions noted GENERAL SKIN EXAM: no rashes or lesions noted Data : 03/26/22 03:45 03/26/22 03:45 Xray Ortho: I personally reviewed and interpreted this imaging study as follows: My impression: Of the left hip demonstrate a minimally displaced left intertrochanteric shortening. A&P Assessment and plan (1) Closed intertrochanteric fracture of left hip: X-rays are reviewed, and the patient will require open reduction internal fixa tion of her left intertrochanteric hip fracture. She is admitted to the medical service and this plan has been discussed with Dr. Cadena. The patient is advised of the plan for open reduction internal fixation. Risks and complications are discussed as well as the device that will be utilized. She consents for the surgical procedure. Of note, the patient does have a rotator cuff tear in the left shoulder which may complicate her rehab. This was to have been addressed by a surgeon in [place] on March 30. Status: Acute Consult Attestations Medical Necessity Statement: Patient requires inpatient status for treatment of left intertrochanteric hip fracture. Coding Level of Care Code Acute Cloud Infrastructure Architect for Wesley Herrera Diagnoses Closed intertrochanteric fracture of left hip S72.142A
[2022-03-25 21:51] VITALS: BP 166/96; PULSE 97; RESP 20; O2SAT 98
--- NOTE | 2022-03-25 22:06 | PM.HP ---
Providers/Chief Complaint Admitting Physician: Adelina Garcia MD Primary Care Provider: Elena Gray MD Chief Complaint: HIP PAIN/FALL History of Present Illness Elena Pulliam is a 52 year old female who presented to the emergency room with chief complaint of pain in her left hip after a fall. She was power washing her deck. She was wearing flip-flops like shoes. She went to walk up the steps and either she did not step up high enough or her shoe got stuck on something and she fell. She landed on her left hip. It was evident immediately that something was significantly wrong. EMS was called and she was brought in. She has been found to have a left intertrochanteric hip fracture. Case was discussed with Dr. Camacho. Patient has a history of nonischemic cardiomyopathy diagnosed some years ago. May have been viral associated versus secondary to uncontrolled hypertension from what she recalls. No history of coronary artery disease. At one point she had an EF of 15 to 20% and had an AICD placed. Most recent echocardiograms generally show ejection fraction around 40%. She has recently sustained a left rotator cuff injury and had been planned for surgical repair in [place] this coming Monday. She conveniently has had a recent cardiology appointment for preoperative clearance given her cardiac history with Dr. Pineda on February 07. Patient does have dyspnea or fatigue with exertion but is able to take care of her activities of daily living and even walk a couple of blocks. No complaints of chest pain. She was cleared from a cardiac standpoint for surgery without further evaluation. She is on chronic beta-blockade. Has never had issues with anesthesia previously. No history of bleeding or clotting problems. Not on any form of anticoagulation. She does smoke maybe half a pack a day. No known history of kidney disease other than kidney stones. She has follow-up with Dr. Austin for this with most recent episode a few months ago requiring ureteral stent placement and subsequent removal. Denies any recent hematuria, flank pain or dysuria. No fevers. She has nausea today since the fall which is secondary to pain from heart perspective. She rates pain at greater than a 10 out of 10. Nothing has really given her significant improvement thus far. She is being admitted to hospitalist service for admission secondary to comorbid conditions with plan for orthopedic surgical intervention tomorrow. No other injury reported today. No loss of consciousness with fall and again it appeared to be completely mechanical. Review of Systems Const: Denies: fever(s) or chills ENMT: Denies: throat pain or nasal congestion Card: Reports: dyspnea on exertion (Improves with rest, not acutely worse); Denies: chest pain, palpitations, edema or orthopnea Resp: Reports: dyspnea (Sometimes); Denies: productive cough, non-productive cough or wheezing GI: Reports: nausea (Associated with pain) and constipation (Take stool softener at home); Denies: abdominal pain, vomiting or diarrhea : Reports: other (No flank pain); Denies: difficulty voiding or hematuria Musc: Reports: extremity pain (Left hip, severe since fall) and other Skin/Breast: Denies: rash, pruritus or sores Neuro: Reports: other (Denies focal weakness or new paresthesias) Cedric/Lymph: Denies: easy bruising or easy bleeding Medications/Allergies Home Medications Medication Instructions Recorded Confirmed Last Taken Type citalopram 40 mg tablet (Celexa) 40 mg PO BEDTIME 01/31/20 03/25/22 03/24/22 22:00 History zolpidem 10 mg tablet 10 mg PO BEDTIME tab 01/31/20 03/25/22 03/24/22 22:00 History aspirin 81 mg tablet,delayed 162 mg PO QAM tab 01/20/21 03/25/22 03/25/22 History release (Adult Low Dose Aspirin) nitroglycerin 0.4 mg sublingual 0.4 mg SUBLINGUAL Q5M PRN #25 tab 01/20/21 03/25/22 Unknown Rx tablet (Nitrostat) ferrous sulfate 325 mg (65 mg 325 mg PO QAM 07/22/21 03/25/22 03/25/22 08:00 History iron) tablet cyanocobalamin (vitamin B-12) 50 50 mcg PO QAM 11/30/21 03/25/22 03/25/22 08:00 History mcg tablet (Vitamin B-12) furosemide 20 mg tablet (Lasix) 10 mg PO DAILY PRN 11/30/21 03/25/22 Unknown History levalbuterol tartrate 45 2 inh INHALATION Q6H PRN 11/30/21 03/25/22 03/25/22 History mcg/actuation aerosol inhaler lisinopril 20 mg tablet 20 mg PO BID 11/30/21 03/25/22 03/25/22 08:00 History montelukast 10 mg tablet 10 mg PO QAM 11/30/21 03/25/22 03/25/22 08:00 History carvedilol 25 mg tablet 25 mg PO BID #60 tab 01/12/22 03/25/22 03/25/22 08:00 Rx spironolactone 25 mg tablet 12.5 mg PO DAILY 01/12/22 03/25/22 03/25/22 08:00 History Allergies Allergy/AdvReac Type Severity Reaction Status Date / Time egg Allergy unknown Verified 01/12/22 13:49 morphine Allergy Unknown Verified 01/12/22 13:49 Opioids - Morphine Analogues Allergy unknown Verified 01/12/22 13:49 PFSH Acute PFSH: Medical History (Updated 03/26/22 @ 00:44 by Adelina Garcia MD) CHF (congestive heart failure) Related to nonischemic cardiomyopathy, most recent ejection fraction with with EF 42%. History of recurrent UTIs History of TIA (transient ischemic attack) HTN (hypertension) ICD (implantable cardioverter-defibrillator) in place Mass of right lobe of liver ~3.5 x 4 cm, indeterminant, hypodense, first noted 11/2021 Nonischemic cardiomyopathy Specific etiology unknown, may have been viral or related to uncontrolled hypertension from her recollection Echocardiogram November 2021 with ejection fraction of 42% Obstructive pyelonephritis (~11/2021) Renal stones Ureteral calculus Surgical History (Updated 03/25/22 @ 22:54 by Adelina Garcia MD) S/P ureteral stent placement (~11/2021) Status post cholecystectomy Status post placement of cardiac pacemaker Family History (Updated 03/25/22 @ 22:56 by Adelina Garcia MD) Father , AT AGE 77 CAD (coronary artery disease) Cancer lung cancer Mother , AT AGE 60 Cancer OVARIAN Denies family history of Clotting disorder Anesthesia complication Bleeding disorder Social History (Updated 03/25/22 @ 22:55 by Adelina Garcia MD) Smoking and tobacco status: current every day smoker cigarettes Packs smoked per day: 0.5 Years cigarettes smoked: 45 Second hand smoke exposure: Yes Alcohol intake: current Alcohol use comment: occassional Substance/Drug Use: never Lives independently: Yes Marital status: service: No Current occupational status: disabled Current gender identity: Female Vitals/I&O/Wt Last Vital Signs Temp 98.2 F 03/25/22 18:54 Pulse 97 03/25/22 21:51 Resp 20 H 03/25/22 21:51 BP 166/96 03/25/22 21:51 Pulse Ox 98 03/25/22 21:51 Weight last 48 hrs Weight 76.204 kg Physical Exam Narrative: Constitutional: Awake and alert, tearful with pain but cooperative HEENT: Normocephalic, extraocular movements intact, pupils equally reactive, moist mucous membranes, fair dentition Neck: Large but supple Respiratory: Clear to auscultation bilaterally Cardiovascular: Tachycardic, regular rhythm, no gallops or rubs, no murmurs Abdomen: Soft, nontender, positive bowel sounds Extremities: Left lower extremity externally rotated and shortened, no pitting edema, brisk capillary refill and 2+ pulses noted bilaterally Skin: Not able to visualize site of injury presently due to severity of pain and still having on her clothing, skin is dry Neuro: Speech clear, face symmetric, moves all extremities, sensation intact at both feet Psych: Normal affect Data : 03/25/22 19:30 03/25/22 19:30 Other Labs: Radiology Impressions Hip/Pelvis X-Ray 03/25/22 19:12 IMPRESSION: Left intertrochanteric femur fracture. Knee X-Ray 03/25/22 19:12 IMPRESSION: No acute findings. Laboratory Results WBC 11.6 10^3/uL (4.0-10.0) H 03/25/22 19:30 RBC 3.58 10^6/uL (4.1-5.3) L 03/25/22 19:30 Hgb 12.0 g/dL (11.5-15.3) 03/25/22 19:30 Hct 34.7 % (37.0-47.0) L 03/25/22 19:30 MCV 96.9 fl (81-99) 03/25/22 19:30 MCH 33.5 pg (28.0-34.0) 03/25/22 19:30 MCHC 34.6 g/dL (30.0-36.0) 03/25/22 19:30 RDW 13.4 % (12.1-15.1) 03/25/22 19:30 Plt Count 187 10^3/cmm (130-400) 03/25/22 19:30 MPV 11.2 fL (7.4-10.4) H 03/25/22 19:30 Neut % (Auto) 75.6 % 03/25/22 19:30 Lymph % (Auto) 16.6 % 03/25/22 19:30 [place] % (Auto) 4.8 % 03/25/22 19:30 Eos % (Auto) 2.0 % 03/25/22 19:30 Baso % (Auto) 0.4 % 03/25/22 19:30 Neut # (Auto) 8.75 10^3/uL (1.8-7.7) H 03/25/22 19:30 Lymph # (Auto) 1.9 10^3/uL (0.8-4.8) 03/25/22 19:30 [place] # (Auto) 0.6 10^3/uL (0.2-0.9) 03/25/22 19:30 Eos # (Auto) 0.2 10^3/uL (0.0-0.8) 03/25/22 19:30 Baso # (Auto) 0.1 10^3/uL (0.0-0.1) 03/25/22: Nucleated RBC % (auto) 0 % 03/25/22: Nucleated RBCs # 0.0 /100WBC 03/25/22 19:30 PT 13.70 SECONDS (12.1-14.9) 03/25/22 19:30 INR 1.02 (0.8-1.2) 03/25/22 19:30 APTT 30.0 SECONDS (23.9-36.7) 03/25/22 19:30 Sodium 138 mmol/L (136-145) 03/25/22 19:30 Potassium 3.7 mmol/L (3.5-5.1) 03/25/22 19:30 Chloride 103 mmol/L (98-107) 03/25/22 19:30 Carbon Dioxide 20 mmol/L (22-29) L 03/25/22 19:30 Anion Gap 18.7 (5-19) 03/25/22 19:30 BUN 20 mg/dL (6-20) 03/25/22 19:30 Creatinine 1.2 mg/dL (0.5-0.9) H 03/25/22 19:30 GFR Calculation 47.2 mL/min (90-130) L 03/25/22 19:30 Glucose 93 mg/dL (65-115) 03/25/22 19:30 Calculated Osmolality 288 mOsm/kg (285-295) 03/25/22 19:30 Calcium 9.2 mg/dL (8.5-10.5) 03/25/22 19:30 Urine Color Yellow (Yellow) 03/25/22 23:40 Urine Appearance Clear (CLEAR) 03/25/22 23:40 Urine pH 5 (5-7) 03/25/22 23:40 Ur Specific [place] 1.030 (1.005-1.030) 03/25/22 23:40 Urine Protein Neg (Negative) 03/25/22 23:40 Urine Glucose (UA) Norm (Normal) 03/25/22 23:40 Urine Ketones Negative (Negative) 03/25/22 23:40 Urine Blood Neg (Negative) 03/25/22 23:40 Urine Nitrate Negative (Negative) 03/25/22 23:40 Urine Bilirubin Neg (Negative) 03/25/22 23:40 Urine Urobilinogen Norm mg/dL (Negative) 03/25/22 23:40 Ur Leukocyte Esterase Negative (Negative) 03/25/22 23:40 A&P Assessment and plan (1) Fall: Status: Acute Qualifiers: Encounter type: initial encounter Qualified Code(s): W19.XXXA - Unspecified fall, initial encounter (2) Closed intertrochanteric fracture of left hip: Status: Acute Qualifiers: Encounter type: initial encounter Fracture alignment: displaced Qualified Code(s): S72.142A - Displaced intertrochanteric fracture of left femur, initial encounter for closed fracture (3) Left rotator cuff tear: Present prior to injury today. Currently scheduled for surgery in [place] on March 30. Status: Acute Qualifiers: Rotator cuff tear extent: unspecified tear extent Rotator cuff tear trauma status: unspecified whether traumatic Qualified Code(s): M75.102 - Unspecified rotator cuff tear or rupture of left shoulder, not specified as traumatic (4) Nonischemic cardiomyopathy: Chronically on carvedilol, lisinopril and Aldactone. Ejection fraction in November 28 to 42%. Has AICD. Evaluated by cardiology on March 01 for preoperative cardiac clearance for her upcoming rotator cuff repair. No further cardiac evaluation was recommended. No change in functional status since that time nor complaints of increased chest pain or shortness of breath. Status: Chronic (5) Nicotine dependence, cigarettes, uncomplicated: Status: Chronic Plan Increased creatinine from recent baseline, may be related to volume depletion/heat from working outside today History of renal stones with last intervention several months ago, no recent symptoms Indeterminate liver density noted on previous CT imaging of the abdomen Inpatient admission Orthopedics consultation for surgical intervention Pain control to include continuation of home citalopram, opioids, IV Tylenol and will also give her some IV Ativan presently as having significant muscle spasms around the left hip joint exacerbating pain acutely As needed Narcan on profile Antiemetics as needed Stool softeners Continue home carvedilol Hold lisinopril preoperatively with plan to resume postoperatively, currently have ordered a lower dose than usual anticipating potential drop in blood pressures with pain control Continue home Aldactone Continue iron therapy which is a chronic medication at home Leger catheter in the immediate perioperative period secondary to planned surgery SCDs for DVT prophylaxis; will initiate pharmacological DVT prophylaxis postoperatively PPI for GI prophylaxis Low rate of fluids this evening, monitoring overall volume status closely Recheck renal function in the morning Follow-up pending urinalysis Is an established patient of Dr. Austin should she develop any issues related to kidney stones while hospitalized Type and screen Nicotine patch if needed PT and OT consultation - patient's postoperative rehabilitation will be hampered to a degree by her left rotator cuff tear and inability to effectively use the left upper extremity presently Case management for disposition planning - patient would like to try to do outpatient or in-home rehabilitation if she is able but understands an alternative would be short-term rehabilitation at facility Ultimate disposition will depend on clinical course Will need to notify orthopedic surgeon in [place] of necessary delay of planned rotator cuff repair Supportive care otherwise Will need reminder to follow-up regarding indeterminate liver density after discharge (had been recommended after hospital stay earlier this year) Findings, concerns and plans were discussed with patient and she was given an opportunity to ask questions. She understands that Dr. Camacho will be her orthopedic surgeon and plan presently is for surgical intervention at 8 AM tomorrow. Full code Attestations Medical Necessity Statement*: Anticipated stay greater than two midnights with left intratrochanteric hip fracture necessitating surgical intervention after a fall today that was mechanical in nature. She has a pre-existing left rotator cuff tear that has the potential to impact her rehabilitation postoperatively in addition to comorbid medical conditions as described. Plans are as noted. Coding Level of Care Code Acute Surveillance System Monitor for Chg Fwd Diagnoses Fall W19.XXXA Encounter type: initial encounter Closed intertrochanteric fracture of left hip S72.142A Encounter type: initial encounter Fracture alignment: displaced Left rotator cuff tear M75.102 Rotator cuff tear extent: unspecified tear extent Rotator cuff tear trauma status: unspecified whether traumatic Nonischemic cardiomyopathy I42.8 Nicotine dependence, cigarettes, uncomplicated F17.210
[2022-03-25 22:33] VITALS: RESP 22
[2022-03-25] MEDS: HYDROmorphone 1 mg/mL INJ 1 mL 0.4 MG IVP (22:33)
[2022-03-25] MEDS: LORazepam 2 mg/mL INJ 1 mL 1 MG IVP (22:36)
[2022-03-25] MEDS: acetaminophen 1,000 MG/100 ML PIGGYBACK 400 MG IV (22:38)
[2022-03-25 23:52] LABS: Add Urine Microscopic? NO; Charge for UA Resulting for Rev
[2022-03-25] MEDS: citalopram 20 mg Tablet 40 MG PO (23:57)
[2022-03-25 23:58] LABS: Bilirubin Urine Neg (Negative); Blood Urine Neg (Negative); Glucose Urine UA Norm (Normal); Ketones Urine Negative (Negative); Leukocyte Esterase Urine Negative (Negative); Nitrate Urine Negative (Negative); Protein Urine Neg (Negative); Urine Appearance Clear (CLEAR); Urine Color Yellow (Yellow); Urobilinogen Urine Norm (Negative); pH Urine 5 (5-7)
[2022-03-25] MEDS: carvedilol 25 mg Tablet PO (23:58)
[2022-03-25] MEDS: docusate sodium 100 mg Capsule PO (23:58)
[2022-03-26] VITALS (30 sets, daily range): BP systolic 100–141; BP diastolic 53–82; PULSE 72–116; RESP 11–20; TEMP 36.6–37.7; O2SAT 72–99
--- NOTE | 2022-03-26 | SCC_ITS ---
Procedure done: Open reduction internal fixation left intertrochanteric hip fracture 157.3 seconds of fluoroscopic guidance, for a cumulative dose of 8.87 mGy, was provided to Dr. Camacho by the radiology department. C-arm images of the LEFT hip were saved for the patient's permanent record. [facility] HOSPITALBritney
[2022-03-26] MEDS: HYDROcodone-acetaminophen 5-325 mg Tablet 1 TAB PO ×3 (01:22→20:53)
[2022-03-26] MEDS: sodium chlor 0.45% +KCl 20 mEq 20 MEQ/1,000 ML BAG 50 MEQ IV (01:30)
[2022-03-26] MEDS: HYDROmorphone 1 mg/mL INJ 1 mL 0.4 MG IVP ×3 (02:38→19:33)
--- NOTE | 2022-03-26 03:58 | PC.NURSE ---
Dr Garcia present on floor at this time. Received verbal order for Ativan 1mg IVP for muscle cramps and anxiety. RBVO
[2022-03-26 04:09] LABS: Basophils % 0.6 %; Eosinophils # 0.1 10^3/uL (0.0-0.8); Eosinophils % 1.7 %; Hematocrit 33.2 % (37.0-47.0); Hemoglobin 11.3 g/dL (11.5-15.3); Lymphocytes # 1.4 10^3/uL (0.8-4.8); Lymphocytes % 20.3 %; Mean Corpuscular Hemoglobin 33.3 pg (28.0-34.0); Mean Corpuscular Volume 97.9 fl (81-99); Mean Platelet Volume 11.1 fL (7.4-10.4); Monocytes # 0.4 10^3/uL (0.2-0.9); Monocytes % 5.9 %; Neutrophils # 5.05 10^3/uL (1.8-7.7); Neutrophils % 71.2 %; Nucleated Red Blood Cells % 0 %; Platelet Count 158 10^3/cmm (130-400); Red Blood Count 3.39 10^6/uL (4.1-5.3); Red Cell Distribution Width 13.6 % (12.1-15.1); White Blood Count 7.1 10^3/uL (4.0-10.0)
[2022-03-26 04:24] LABS: Anion Gap 17.1 (5-19); Blood Urea Nitrogen 16 mg/dL (6-20); Calcium 8.4 mg/dL (8.5-10.5); Carbon Dioxide 19 mmol/L (22-29); Chloride 105 mmol/L (98-107); Glomerular Filtration Rate 47.2 mL/min (90-130); Glucose 117 mg/dL (65-115); Magnesium 1.8 mg/dL (1.7-2.3); Osmolality Calculated 286 mOsm/kg (285-295); Potassium 4.1 mmol/L (3.5-5.1); Sodium 137 mmol/L (136-145)
[2022-03-26] MEDS: LORazepam 2 mg/mL INJ 1 mL 1 MG IVP ×2 (04:47→19:33)
[2022-03-26] MEDS: fentaNYL 50 mcg/mL INJ 2mL 100 MCG (07:45)
--- NOTE | 2022-03-26 07:47 | ANES.PREANE2 ---
Documented by User: Jonnie Thompson Jr, EMERGENCY MEDICAL SERVICE MANAGER 03/26/22 07:51 Pre-Anesthetic Assessment Height/Weight: Height 1.65 m Weight 76.204 kg Temp Pulse Resp BP Pulse Ox 98.2 F 103 H 19 H 132/81 98 03/26/22 04:00 03/26/22 04:00 03/26/22 04:00 03/26/22 04:00 03/26/22 04:00 Preop Diagnosis: Left intertrochanteric hip fracture Operation Date: 03/26/22 08:00 Proposed Procedures p Open Reduction Hip(Left) - Valencia Camacho MD Social Tobacco Exam alert, oriented x 3, clear to auscultation bilaterally and regular rate & rhythm Airway Submandibular: within normal limits Cervical ROM: within normal limits Mallampati: Class II Dentition: chipped and loose Comments: Comments: Bottom right tooth very loose Pulmonary Chronic Obstructive Pulmonary Disease, Exertional Dyspnea and Shortness of Breath CV/HEM Congestive Heart Failure and Hypertension Hx cardiomyopathy. Last EF 42% None reported Hepatic None reported GI None reported Metabolic Morbid Obesity [facility] Lower Back Pain and Osteoarthritis/DJD Neuropsych Anxiety Anesthetic Plan ASA status: 3 Anesthesia: Anesthesia Evaluation and General Risk of > 500 ml blood loss (7ml/kg in children): No Medications/Allergies Home Medications Medication Instructions Recorded Confirmed Last Taken Type citalopram 40 mg tablet (Celexa) 40 mg PO BEDTIME 01/31/20 03/25/22 03/24/22 22:00 History zolpidem 10 mg tablet 10 mg PO BEDTIME tab 01/31/20 03/25/22 03/24/22 22:00 History aspirin 81 mg tablet,delayed 162 mg PO QAM tab 01/20/21 03/25/22 03/25/22 History release (Adult Low Dose Aspirin) nitroglycerin 0.4 mg sublingual 0.4 mg SUBLINGUAL Q5M PRN #25 tab 01/20/21 03/25/22 Unknown Rx tablet (Nitrostat) ferrous sulfate 325 mg (65 mg 325 mg PO QAM 07/22/21 03/25/22 03/25/22 08:00 History iron) tablet cyanocobalamin (vitamin B-12) 50 50 mcg PO QAM 11/30/21 03/25/22 03/25/22 08:00 History mcg tablet (Vitamin B-12) furosemide 20 mg tablet (Lasix) 10 mg PO DAILY PRN 11/30/21 03/25/22 Unknown History levalbuterol tartrate 45 2 inh INHALATION Q6H PRN 11/30/21 03/25/22 03/25/22 History mcg/actuation aerosol inhaler lisinopril 20 mg tablet 20 mg PO BID 11/30/21 03/25/22 03/25/22 08:00 History montelukast 10 mg tablet 10 mg PO QAM 11/30/21 03/25/22 03/25/22 08:00 History carvedilol 25 mg tablet 25 mg PO BID #60 tab 01/12/22 03/25/22 03/25/22 08:00 Rx spironolactone 25 mg tablet 12.5 mg PO DAILY 01/12/22 03/25/22 03/25/22 08:00 History Allergies Allergy/AdvReac Type Severity Reaction Status Date / Time egg Allergy unknown Verified 01/12/22 13:49 morphine Allergy Unknown Verified 01/12/22 13:49 Opioids - Morphine Analogues Allergy unknown Verified 01/12/22 13:49 Current Medications Generic Name Dose Route Start Last Admin Trade Name Freq PRN Reason Stop Dose Admin Hydrocodone Bitart/Acetaminophen 1 tab 03/25/22 22:13 03/26/22 01:22 Hydrocodone-Acetaminophen 5-325 Mg Tablet PO 1 tab Q4H PRN Administration MODERATE TO SEVERE PAIN Carvedilol 25 mg 03/25/22 22:30 03/25/22 23:58 Carvedilol 25 Mg Tablet PO 25 mg BID@09,21 AURE Administration Citalopram Hydrobromide 40 mg 03/25/22 22:30 03/25/22 23:57 Citalopram 20 Mg Tablet PO 40 mg BEDTIME AURE Administration Docusate Sodium 100 mg 03/25/22 22:30 03/25/22 23:58 Docusate Sodium 100 Mg Capsule PO 100 mg BID AURE Administration Hydromorphone HCl 0.4 mg 03/25/22 22:13 03/26/22 02:38 Hydromorphone 1 Mg/Ml Inj 1 Ml IVP 0.4 mg Q4H PRN Administration SEVERE PAIN Potassium Chloride/Sodium Chloride 20 meq in 1,000 mls @ 50 mls/hr 03/26/22 01:30 03/26/22 01:30 Sodium Chlor 0.45% +Kcl 20 Meq IV 03/26/22 11:29 50 mls/hr .Q20H AURE Administration Lorazepam 1 mg 03/26/22 02:59 03/26/22 04:47 Lorazepam 2 Mg/Ml Inj 1 Ml IVP 1 mg Q8H PRN Administration ANXIETY Ondansetron HCl 4 mg 03/25/22 20:24 03/25/22 22:31 Ondansetron 2 Mg/Ml Sdv 2 Ml IVP 4 mg Q6H PRN Administration NAUSEA AND VOMITING PFSH Anesthesia Medical History (Updated 03/26/22 @ 00:44 by Adelina Garcia MD) CHF (congestive heart failure) Related to nonischemic cardiomyopathy, most recent ejection fraction with with EF 42%. History of recurrent UTIs History of TIA (transient ischemic attack) HTN (hypertension) ICD (implantable cardioverter-defibrillator) in place Mass of right lobe of liver ~3.5 x 4 cm, indeterminant, hypodense, first noted 11/2021 Nonischemic cardiomyopathy Specific etiology unknown, may have been viral or related to uncontrolled hypertension from her recollection Echocardiogram November 2021 with ejection fraction of 42% Obstructive pyelonephritis (~11/2021) Renal stones Ureteral calculus Surgical History (Updated 03/25/22 @ 22:54 by Adelina Garcia MD) S/P ureteral stent placement (~11/2021) Status post cholecystectomy Status post placement of cardiac pacemaker Family History (Updated 03/25/22 @ 22:56 by Adelina Garcia MD) Father , AT AGE 77 CAD (coronary artery disease) Cancer lung cancer Mother , AT AGE 60 Cancer OVARIAN Denies family history of Clotting disorder Anesthesia complication Bleeding disorder Social History (Updated 03/25/22 @ 22:55 by Adelina Garcia MD) Smoking and tobacco status: current every day smoker cigarettes Packs smoked per day: 0.5 Years cigarettes smoked: 45 Second hand smoke exposure: Yes Alcohol intake: current Alcohol use comment: occassional Substance/Drug Use: never Lives independently: Yes Marital status: service: No Current occupational status: disabled Current gender identity: Female Data Anesthesia : 03/26/22 03:45 03/26/22 03:45 Short CBC 03/25/22 03/26/22 Range/Units 19:30 03:45 WBC 11.6 H 7.1 (4.0-10.0) 10^3/uL Hgb 12.0 11.3 L (11.5-15.3) g/dL Hct 34.7 L 33.2 L (37.0-47.0) % MCV 96.9 97.9 (81-99) fl Plt Count 187 158 (130-400) 10^3/cmm Neut % (Auto) 75.6 71.2 % Neut # (Auto) 8.75 H 5.05 (1.8-7.7) 10^3/uL BMP 03/25/22 03/26/22 19:30 03:45 Sodium 138 137 Potassium 3.7 4.1 Chloride 103 105 Carbon Dioxide 20 L 19 L BUN 20 16 Creatinine 1.2 H 1.2 H Glucose 93 117 H Calcium 9.2 8.4 L Urine 03/25/22 Range/Units 23:40 Urine Color Yellow (Yellow) Urine Appearance Clear (CLEAR) Urine pH 5 (5-7) Ur Specific [place] 1.030 (1.005-1.030) Urine Protein Neg (Negative) Urine Glucose (UA) Norm (Normal) Urine Ketones Negative (Negative) Urine Nitrate Negative (Negative) Urine Bilirubin Neg (Negative) Ur Leukocyte Esterase Negative (Negative) Blood Bank 03/26/22 03:45 Blood Type O Positive Rho(D) Type Positive Antibody Screen Negative Coags 03/25/22 19:30 PT 13.70 INR 1.02 APTT 30.0 Cardiac Studies: Echocardiogram 11/30/21
--- NOTE | 2022-03-26 08:00 | XR_ITS ---
WS: [id number] Exam: XR hip LT 2-3V wo/w pel* [id number] Date/Time of Exam: 03/26/2022 8:00 AM Reason For Exam: FX HIP REPAIR AP and lateral intraoperative C-arm images of the left hip are submitted for evaluation. Previously noted intertrochanteric fracture is now stabilized with an intramedullary edward and femoral neck screw in the excellent position for healing. Postoperative changes in the adjacent soft tissues. XR/XR hip LT 2-3V wo/w pel* [id number] IMPRESSION: 1. Satisfactory internal fixation involving an intertrochanteric fracture of th e left hip.
[2022-03-26] MEDS: ceFAZolin 1,000 mg SDV 1000 MG IRRIGATION (08:48)
--- NOTE | 2022-03-26 10:09 | PM.OP ---
Operative Report Date of procedure: March 26, 2022 Pre-op diagnosis: Left intertrochanteric hip fracture Post-op diagnosis: Left intertrochanteric hip fracture Procedure done: Open reduction internal fixation left intertrochanteric hip fracture Implants: The Annalisa gamma 3 trochanteric nail system with a size 11 mm x 180 mm x 125 degree trochanteric nail, a 10.5 mm x 90 mm proximal lag screw, and a 5 mm x 35 mm distal locking screw Specimens removed/disposition: None Pathology: none sent Surgeon: Valencia Camacho Import/Export Freight Forwarder: None Anesthesia: General (LMA, ASA 3) Estimated blood loss (mL): 100 IV fluids (mL): 700 Urine output (mL): 200 Complications: None Condition: stable Disposition: PACU (Then to floor for postoperative rehabilitation and pain management) Brief History: Elena Pulliam is a 52 year old female who presented to the emergency department after a fall.? The patient notes that she was power washing her deck, and when she went to walk up the steps, she fell.? She is uncertain as to whether her shoe got stuck or she just did not lift her leg far enough.? She was brought to the emergency department by ambulance, and at that time, she was found to have an left intertrochanteric hip fracture.? I received a call from Dr. Mckay.? The patient was also seen by Dr. Adelina Garcia who evaluated her as she had a significant cardiac history.? She has recently been cleared for an elective surgery by Dr. Pineda.? Dr. Garcia felt she was safe from a cardiac standpoint for further surgery.? The patient denied any other reason for her fall outside of mechanical. Procedure: Patient is brought to the operating theater. After undergoing adequate general anesthesia with LMA, ASA 3, the patient was transferred to the fracture table, positioned on the table and fluoroscopic guidance obtained throughout the surgical procedure. Prior to the commencement of the surgical procedure, a surgical pause was performed. At the time of the surgical pause, we confirmed the site and side of surgery as well as preoperative surgical markings and appropriate and timely administration of IV antibiotics, Ancef 2 g. Availability of equipment was also confirmed. Fluoroscopy was used to confirm the fracture was appropriately reduced in both AP and lateral planes. An incision was then made slightly above the greater trochanter to allow access to the greater trochanter. An awl was used to enter the greater trochanter and a guidewire was subsequently placed. Once the guidewire was confirmed to be in appropriate position in AP and lateral planes, reaming was accomplished over this to allow for the proximal diameter of the nail.? Guidewire was then removed. An attempt was made to place the 11 mm x 180 mm x 125 degree gamma 3 trochanteric nail into appropriate position, but the patient's canal was quite small. Therefore, reaming was accomplished to a size 12-1/2 to allow the 11 mm nail to pass uneventfully. The nail was placed into appropriate position with positioning being confirmed in AP and lateral planes on the x-ray. It passed without difficulty following reaming. Guidewire was then passed through the jigging system into the femoral head. We wanted to be center or slightly inferior and posterior to center. Guidewire was placed into appropriate position. Once the guidewire was in appropriate position and this position was confirmed by x-ray, length of the guidewire was then measured and we chose a 10.5 mm x 90 mm lag screw.? We reamed to allow for the lag screw to be placed. ?The 90 mm lag screw was then passed into the femoral head through the trochanteric nail. This was passed uneventfully and again position was confirmed in AP and lateral planes. Compression was obtained under fluoroscopic guidance.? The set screw was then placed in position, tightened completely, and subsequently backed off one-quarter turn. The construct was left in position and attention was directed distally. Cannulas were again used to determine appropriate placement for the distal screw. This was placed in position without difficulty. It was measured off of the drill. The appropriate length screw was then obtained and placed in position without difficulty. Once the screw was in position, we confirmed appropriate placement of the components, and we removed the jigging system. Attention was then directed to closure. The hip was copiously irrigated with normal saline with antibiotics. Following this it was dried and closed. Tensor fascia ana was closed proximally with 0 Vicryl in an interrupted fashion. Subcutaneous tissues were closed with 2-0 Monocryl, and the skin was closed with a continuous 3-0 Monocryl subcuticular stitch. This was then covered with Dermabond, Steri-Strips, and OpSite. The patient was removed from the fracture table and returned to recovery in satisfactory condition. The patient will be discharged to the floor for postoperative rehabilitation and pain management. There were no specimens obtained. Related Problem List Diagnoses (1) Closed intertrochanteric fracture of left hip:
[2022-03-26] MEDS: FUROsemide 10 mg/mL SDV 4mL 40 MG IVP ×2 (10:30→20:38)
--- NOTE | 2022-03-26 10:31 | XRR_ITS ---
PROCEDURE INFORMATION: Exam: XR Chest Exam date and time: 03/26/2022 10:53 AM Age: 52 years old Clinical indication: Shortness of breath; Prior surgery; Surgery date: Post-operative (0-2 days); Surgery type: Hip surgery today; Additional info: SOB TECHNIQUE: Imaging protocol: Radiologic exam of the chest. Views: 1 view. COMPARISON: CR XR chest 2V* [id number] 01/12/2022 3:05 PM FINDINGS: Tubes, catheters and devices: Single lead pacemaker device. Lungs: Unremarkable. No consolidation. Pleural spaces: Unremarkable. No pleural effusion. No pneumothorax. Heart/Mediastinum: Cardiomegaly. Bones/joints: Unremarkable. Organs: Clips are present in the right upper quadrant consistent with prior cholecystectomy. XR/XR chest 1V portable [id number] IMPRESSION: No evidence for acute cardiopulmonary disease.
[2022-03-26 10:39] LABS: NT Pro B Type Natriuretic Pept 4741 pg/mL (0-125)
--- NOTE | 2022-03-26 10:59 | ANE.PACU2 ---
Inpatient post-anesthesia follow up: Airway intact: Yes Vital signs: Temperature 98.2 F Pulse Rate 72 Respiratory Rate 16 Blood Pressure 117/67 Pulse Oximetry 98 Oxygen Delivery Me thod Nasal Cannula Oxygen Flow Rate 6 Fraction of Inspir ed Oxygen Hydration adequate: Yes Nausea and vomiting: No Pain level: 3 Mental status: Baseline Additional Comments: Required oxygenation support with BiPAP/CPAP postop.
--- NOTE | 2022-03-26 12:10 | PC.NURSE ---
1130 Patient returned to unit from surgery. Patient resting well with eyes closed. Respiratory rate regular, slightly shallow. Patient at 92% on 4L NC. FLACC 0, no signs of pain. Patient aroused slightly and went back to sleep. SCDs applied. Cardiac monitoring resumed.
--- NOTE | 2022-03-26 14:56 | P.PN_ITS ---
Subjective Subjective: Patient was seen this morning, in postop recovery, she is alert to person, to place, not to time, she is on 3 L, she denies any shortness of breath, no wheezing on exam, O2 sats dropped into the mid 80s, she was given albuterol, given Lasix however she continues to fall asleep, continues to snore, O2 sats dropped into the mid 80s, she was placed on BiPAP, adjusted with respiratory, O2 sats in the high 90s, she remains alert, oriented, denies any chest pain, currently no shortness of breath Vitals/I&O/Wt Last Vital Signs Temp 98.6 F 03/26/22 12:00 Pulse 102 H 03/26/22 14:54 Resp 18 03/26/22 14:54 BP 127/77 03/26/22 14:54 Pulse Ox 94 03/26/22 14:54 03/25/22 03/26/22 03/26/22 22:59 06:59 14:59 Intake Total 220 / 220 0 / 220 370 / 370 Output Total 500 / 500 750 / 750 Balance 220 / 220 -500 / -280 -380 / -380 Weight last 48 hrs Weight 76.204 kg Physical Exam Const: COMMON NORMALS: no acute distress and patient oriented x3 Resp: COMMON NORMALS: normal respiratory effort, No retractions, No use of accessory muscles and clear to auscultation bilaterally AUSCULTATION: clear to auscultation bilaterally Cardio: COMMON NORMALS: regular rate, regular rhythm, S1 normal heart sound present and S2 normal heart sound present RATE: regular rate RHYTHM: regular rhythm HEART SOUNDS: S1 normal heart sound present and S2 normal heart sound present GI: COMMON NORMALS: Normal to inspection, nondistended, normoactive bowel sounds present, Soft to palpation and non-tender PALPATION: Yes Soft to palpation Extremity: COMMON NORMALS: no pedal edema Neuro: COMMON NORMALS: patient oriented x3 Psych: COMMON NORMALS: mental status grossly normal Urinary Catheter Management: 2-way Urethral: Cath Placed During This Visit: yes Reason for Continuing Indwelling Catheter: Acute Urinary Retention or Obstruction Urinary Catheter Date of Insertion: 03/25/22 Urinary Catheter Time of Insertion: 23:43 Data : 03/26/22 03:45 03/26/22 03:45 A&P Assessment and plan (1) Fall: Status: Acute Qualifiers: Encounter type: initial encounter Qualified Code(s): W19.XXXA - Unspecified fall, initial encounter (2) Closed intertrochanteric fracture of left hip: Status: Acute Qualifiers: Encounter type: initial encounter Fracture alignment: displaced Qualified Code(s): S72.142A - Displaced intertrochanteric fracture of left femur, initial encounter for closed fracture (3) Left rotator cuff tear: Present prior to injury today. Currently scheduled for surgery in [place] on March 30. Status: Acute Qualifiers: Rotator cuff tear extent: unspecified tear extent Rotator cuff tear trauma status: unspecified whether traumatic Qualified Code(s): M75.102 - Unspecified rotator cuff tear or rupture of left shoulder, not specified as traumatic (4) Nonischemic cardiomyopathy: Chronically on carvedilol, lisinopril and Aldactone. Ejection fraction in November 28 20 to 42%. Has AICD. Evaluated by cardiology on March 01 for preoperative cardiac clearance for her upcoming rotator cuff repair. No further cardiac evaluation was recommended. No change in functional status since that time nor complaints of increased chest pain or shortness of breath. Status: Chronic (5) Nicotine dependence, cigarettes, uncomplicated: Status: Chronic Plan Increased creatinine from recent baseline, may be related to volume depletion/heat from working outside today History of renal stones with last intervention several months ago, no recent symptoms Indeterminate liver density noted on previous CT imaging of the abdomen Inpatient admission Status post surgical invention by orthopedic service Pain control to include continuation of home citalopram, opioids, IV Tylenol and will also give her some IV Ativan presently as having significant muscle spasms around the left hip joint exacerbating pain acutely As needed Narcan on profile Antiemetics as needed Stool softeners Continue home carvedilol Hold lisinopril preoperatively with plan to resume postoperatively, currently have ordered a lower dose than usual anticipating potential drop in blood pressures with pain control Continue home Aldactone And Lasix for fluid overload, history of systolic CHF, EF 42%, monitor urine output, monitor creatinine, potassium Continue BiPAP therapy as needed during the day, schedule during the night Continue iron therapy which is a chronic medication at home Leger catheter in the immediate perioperative period secondary to planned surgery SCDs for DVT prophylaxis; will initiate pharmacological DVT prophylaxis postoperatively PPI for GI prophylaxis Low rate of fluids this evening, monitoring overall volume status closely Recheck renal function in the morning Follow-up pending urinalysis Is an established patient of Dr. Austin should she develop any issues related to kidney stones while hospitalized Type and screen Nicotine patch if needed PT and OT consultation - patient's postoperative rehabilitation will be hampered to a degree by her left rotator cuff tear and inability to effectively use the left upper extremity presently Case management for disposition planning - patient would like to try to do outpatient or in-home rehabilitation if she is able but understands an alternative would be short-term rehabilitation at facility Ultimate disposition will depend on clinical course Will need to notify orthopedic surgeon in [place] of necessary delay of planned rotator cuff repair Supportive care otherwise Will need reminder to follow-up regarding indeterminate liver density after discharge (had been recommended after hospital stay earlier this year) Findings, concerns and plans were discussed with patient and she was given an opportunity to ask questions. She understands that Dr. Camacoh will be her orthopedic surgeon and plan presently is for surgical intervention at 8 AM tomorrow. Full code Lovenox for DVT prophylaxis Attestations Medical Necessity Statement*: Patient requires hospitalization for hip fracture Coding Level of Care Code Acute Beauty Parlor Cleaner for Chg Fwd Diagnoses Fall W19.XXXA Encounter type: initial encounter Closed intertrochanteric fracture of left hip S72.142A Encounter type: initial encounter Fracture alignment: displaced Left rotator cuff tear M75.102 Rotator cuff tear extent: unspecified tear extent Rotator cuff tear trauma status: unspecified whether traumatic Nonischemic cardiomyopathy I42.8 Nicotine dependence, cigarettes, uncomplicated F17.210
[2022-03-26] MEDS: TRAMadol 50 mg Tablet PO (16:56)
--- NOTE | 2022-03-26 17:31 | PC.PT ---
Chart and patient nurse, states uncontrolled pain at this time, post surgery, will reattempt evaluation tomorrow a.m.
[2022-03-26] MEDS: docusate sodium 100 mg Capsule PO (17:46)
[2022-03-26] MEDS: lisinopril 10 mg Tablet PO (17:46)
--- NOTE | 2022-03-26 17:55 | PC.NURSE ---
Patient continuing to groan with pain while nurse is present. Patient reports pain and asking if she can have more food each time nurse is in the room. Patient ice pack replaced approx 1600. Patient reports this worsens pain, explained to patient the importance of leaving ice pack.
--- NOTE | 2022-03-26 19:32 | PC.NURSE ---
Patient reports continued pain despite hydrocodone and tramadol treatments. Call placed to Dr Garcia, order given to resume Dilaudid 0.4 mg Q4H PRN for SEVERE pain. Order placed after being read back to Dr Garcia.
[2022-03-26] MEDS: carvedilol 25 mg Tablet PO (20:38)
[2022-03-26] MEDS: sennosides 8.6 mg Tablet 17.2 MG PO (20:38)
[2022-03-26] MEDS: citalopram 20 mg Tablet 40 MG PO (20:38)
[2022-03-26] MEDS: zolpidem 5 mg Tablet PO (20:45)
[2022-03-26] MEDS: cyclobenzaprine 10 mg Tablet PO (23:45)
[2022-03-27] VITALS (16 sets, daily range): BP systolic 90–117; BP diastolic 53–71; PULSE 80–94; RESP 14–22; TEMP 36.3–37.6; O2SAT 69–96
[2022-03-27] MEDS: oxyCODONE 5 mg IR Tab/Cap PO ×5 (00:22→22:04)
[2022-03-27] MEDS: HYDROmorphone 1 mg/mL INJ 1 mL 0.4 MG IVP ×2 (03:05→09:24)
[2022-03-27 04:19] LABS: Basophils % 0.1 %; Eosinophils % 0.1 %; Hematocrit 30.7 % (37.0-47.0); Hemoglobin 10.6 g/dL (11.5-15.3); Lymphocytes # 1.2 10^3/uL (0.8-4.8); Lymphocytes % 12.5 %; Mean Corpuscular HGB Conc 34.5 g/dL (30.0-36.0); Mean Corpuscular Hemoglobin 33.3 pg (28.0-34.0); Mean Corpuscular Volume 96.5 fl (81-99); Monocytes # 0.6 10^3/uL (0.2-0.9); Monocytes % 5.7 %; Neutrophils # 8.05 10^3/uL (1.8-7.7); Neutrophils % 81.4 %; Nucleated Red Blood Cells % 0 %; Platelet Count 161 10^3/cmm (130-400); Red Blood Count 3.18 10^6/uL (4.1-5.3); Red Cell Distribution Width 13.4 % (12.1-15.1); White Blood Count 9.9 10^3/uL (4.0-10.0)
[2022-03-27 04:50] LABS: Alanine Aminotransferase 15 U/L (0-33); Alkaline Phosphatase 100 IU/L (35-105); Anion Gap 16.6 (5-19); Aspartate Amino Transferase 21 U/L (0-32); Blood Urea Nitrogen 21 mg/dL (6-20); Calcium 8.4 mg/dL (8.5-10.5); Carbon Dioxide 24 mmol/L (22-29); Chloride 97 mmol/L (98-107); Globulin 2.6 g/dL (1.3-4.6); Glomerular Filtration Rate 39.5 mL/min (90-130); Glucose 133 mg/dL (65-115); Magnesium 1.9 mg/dL (1.7-2.3); NT Pro B Type Natriuretic Pept 3581 pg/mL (0-125); Osmolality Calculated 283 mOsm/kg (285-295); Phosphorus 2.9 mg/dL (2.5-4.5); Potassium 3.6 mmol/L (3.5-5.1); Sodium 134 mmol/L (136-145); Total Bilirubin 0.4 mg/dL (0.15-1.2); Total Protein 6.6 g/dL (6.6-8.7)
[2022-03-27] MEDS: ferrous sulfate EC 325 mg Tablet PO (05:30)
[2022-03-27] MEDS: montelukast sodium 10 mg Tablet PO (05:30)
[2022-03-27] MEDS: aspirin 325 mg EC Tablet PO (07:52)
[2022-03-27] MEDS: cyclobenzaprine 10 mg Tablet PO ×2 (07:52→14:38)
[2022-03-27] MEDS: pantoprazole DR 40 mg Tablet PO (07:52)
[2022-03-27] MEDS: lisinopril 10 mg Tablet PO (07:52)
[2022-03-27] MEDS: TRAMadol 50 mg Tablet PO ×4 (07:52→23:53)
[2022-03-27] MEDS: carvedilol 25 mg Tablet PO ×2 (07:52→20:20)
[2022-03-27] MEDS: spironolactone 25 mg Tablet 12.5 MG PO (07:53)
[2022-03-27] MEDS: docusate sodium 100 mg Capsule PO ×2 (07:53→17:45)
[2022-03-27] MEDS: LORazepam 2 mg/mL INJ 1 mL 1 MG IVP ×2 (09:24→23:46)
--- NOTE | 2022-03-27 14:12 | P.PN_ITS ---
Subjective Subjective: Patient was seen this morning, her sister is at bedside, patient tells me that she has pain, weakness, is on 3 L, her sister is concerned about her coming home as they have many steps to get into the house and she feels that she cannot help her efficiently at home Vitals/I&O/Wt Last Vital Signs Temp 99.0 F 03/27/22 12:00 Pulse 88 03/27/22 12:00 Resp 14 03/27/22 12:42 BP 90/53 03/27/22 12:00 Pulse Ox 93 03/27/22 12:42 03/26/22 03/27/22 03/27/22 22:59 06:59 14:59 Intake Total 370 / 740 760 / 1500 1150 / 1150 Output Total 1700 / 2450 1650 / 4100 Balance -1330 / -1710 -890 / -2600 1150 / 1150 Weight last 48 hrs Weight 76.204 kg Physical Exam Const: COMMON NORMALS: no acute distress and patient oriented x3 Resp: COMMON NORMALS: normal respiratory effort, No retractions, No use of accessory muscles and clear to auscultation bilaterally AUSCULTATION: clear to auscultation bilaterally Cardio: COMMON NORMALS: regular rate, regular rhythm, S1 normal heart sound present and S2 normal heart sound present RATE: regular rate RHYTHM: regular rhythm HEART SOUNDS: S1 normal heart sound present and S2 normal heart sound present GI: COMMON NORMALS: Normal to inspection, nondistended, normoactive bowel sounds present, Soft to palpation, non-tender and No hepatosplenomegaly present PALPATION: Yes Soft to palpation and Yes No hepatosplenomegaly present Extremity: COMMON NORMALS: no pedal edema Neuro: COMMON NORMALS: patient oriented x3 Psych: COMMON NORMALS: mental status grossly normal Urinary Catheter Management: 2-way Urethral: Cath Placed During This Visit: yes, but has since been removed by the nurse Reason for Continuing Indwelling Catheter: Perioperative Use in Selected Surgeries Urinary Catheter Date of Insertion: 03/25/22 Urinary Catheter Time of Insertion: 23:43 Date Urinary Catheter Removed: 03/27/22 Time Urinary Catheter Discontinued: 05:50 Data : 03/27/22 04:00 03/27/22 04:00 A&P Assessment and plan (1) Fall: Status: Acute Qualifiers: Encounter type: initial encounter Qualified Code(s): W19.XXXA - Unspecified fall, initial encounter (2) Closed intertrochanteric fracture of left hip: Status: Acute Qualifiers: Encounter type: initial encounter Fracture alignment: displaced Qualified Code(s): S72.142A - Displaced intertrochanteric fracture of left femur, initial encounter for closed fracture (3) Left rotator cuff tear: Present prior to injury today. Currently scheduled for surgery in [place] on March 30. Status: Acute Qualifiers: Rotator cuff tear extent: unspecified tear extent Rotator cuff tear trauma status: unspecified whether traumatic Qualified Code(s): M75.102 - Unspecified rotator cuff tear or rupture of left shoulder, not specified as traumatic (4) Nonischemic cardiomyopathy: Chronically on carvedilol, lisinopril and Aldactone. Ejection fraction in November 28 to 42%. Has AICD. Evaluated by cardiology on March 01 for preoperative cardiac clearance for her upcoming rotator cuff repair. No further cardiac evaluation was recommended. No change in functional status since that time nor complaints of increased chest pain or shortness of breath. Status: Chronic (5) Nicotine dependence, cigarettes, uncomplicated: Status: Chronic Plan Fluid overload, diastolic and systolic CHF exacerbation, status post diuresis, creatinine 1.4, -1.7 L, hold off on further diuresis, monitor urine output, monitor creatinine, monitor potassium, BiPAP as needed, scheduled during the night Inpatient admission Status post surgical invention by orthopedic service Pain control to include continuation of home citalopram, opioids, IV Tylenol and will also give her some IV Ativan presently as having significant muscle spasms around the left hip joint exacerbating pain acutely As needed Narcan on profile Antiemetics as needed Stool softeners Continue home carvedilol Hold lisinopril preoperatively with plan to resume postoperatively, currently have ordered a lower dose than usual anticipating potential drop in blood pressures with pain control Continue home Aldactone Continue iron therapy which is a chronic medication at home Leger catheter in the immediate perioperative period secondary to planned surgery SCDs and Lovenox for DVT prophylaxi PPI for GI prophylaxis Recheck renal function in the morning Is an established patient of Dr. Austin should she develop any issues related to kidney stones while hospitalized Type and screen Nicotine patch if needed PT and OT consultation - patient's postoperative rehabilitation will be hampered to a degree by her left rotator cuff tear and inability to effectively use the left upper extremity presently Case management for disposition planning - patient would like to try to do outpatient or in-home rehabilitation if she is able but understands an alternative would be short-term rehabilitation at facility Ultimate disposition will depend on clinical course Will need to notify orthopedic surgeon in [place] of necessary delay of planned rotator cuff repair Supportive care otherwise Will need reminder to follow-up regarding indeterminate liver density after discharge (had been recommended after hospital stay earlier this year) Findings, concerns and plans were discussed with patient and she was given an opportunity to ask questions. She understands that Dr. Camacho will be her orthopedic surgeon and plan presently is for surgical intervention at 8 AM tomorrow. Full code Lovenox for DVT prophylaxis Attestations Medical Necessity Statement*: Patient requires hospitalization for fluid overload, systolic diastolic CHF exacerbation, surgical intervention Coding Level of Care Code Acute Process Operator for Chg Fwd Diagnoses Fall W19.XXXA Encounter type: initial encounter Closed intertrochanteric fracture of left hip S72.142A Encounter type: initial encounter Fracture alignment: displaced Left rotator cuff tear M75.102 Rotator cuff tear extent: unspecified tear extent Rotator cuff tear trauma status: unspecified whether traumatic Nonischemic cardiomyopathy I42.8 Nicotine dependence, cigarettes, uncomplicated F17.210
[2022-03-27] MEDS: enoxaparin 40 mg/0.4 mL Syringe SUBCUT (14:38)
--- NOTE | 2022-03-27 16:10 | PM.PN ---
Subjective Subjective: The patient is seen laying in her bed. When asked how she is doing, she just shakes her head. Her sister expressed concerns this morning about her coming home and being unable to function. Medications: Reviewed: Yes Vitals/I&O/Wt Last Vital Signs Temp 99.0 F 03/27/22 12:00 Pulse 88 03/27/22 12:00 Resp 14 03/27/22 12:42 BP 90/53 03/27/22 12:00 Pulse Ox 93 03/27/22 12:42 03/27/22 03/27/22 03/27/22 06:59 14:59 22:59 Intake Total 760 / 1500 1150 / 1150 Output Total 1650 / 4100 Balance -890 / -2600 1150 / 1150 Weight last 48 hrs Weight 168 lb Physical Exam Const: COMMON NORMALS: no acute distress, patient oriented x3 and alert GENERAL APPEARANCE: cooperative and comfortable ORIENTATION/CONSCIOUSNESS: Yes awake HENMT: COMMON NORMALS: normocephalic and atraumatic HEAD & SCALP: normocephalic and atraumatic Eye: GENERAL EYE: appearance normal, both eyes and all related structures Chest: COMMONS NORMALS: normal inspection of the chest Resp: COMMON NORMALS: normal respiratory effort EFFORT & INSPECTION: Yes able to speak in complete sentences and Yes symmetric chest movement Extremity: LEFT LOWER EXTREMITY: Yes hip joint (Dressings are intact and wounds are benign.) Left hip: Yes inspection (No significant drainage.), Yes palpation (Very reactive to even light touch.), Yes ROM (Not evaluated.) and Yes neurovascular exam (Intact distally with no evidence of DVT) Neuro: COMMON NORMALS: patient oriented x3 SENSORIUM/ORIENTATION: Yes alert Psych: COMMON NORMALS: mental status grossly normal APPEARANCE: Yes grossly normal ATTITUDE: Yes calm and Yes engaged ATTENTION/CONCENTRATION: Yes attention grossly intact Skin: COMMON NORMALS: no rashes or lesions noted GENERAL SKIN EXAM: no rashes or lesions noted Urinary Catheter Management: 2-way Urethral: Cath Placed During This Visit: yes, but has since been removed by the nurse Reason for Continuing Indwelling Catheter: Perioperative Use in Selected Surgeries Urinary Catheter Date of Insertion: 03/25/22 Urinary Catheter Time of Insertion: 23:43 Date Urinary Catheter Removed: 03/27/22 Time Urinary Catheter Discontinued: 05:50 Data : 03/27/22 04:00 03/27/22 04:00 A&P Assessment and plan (1) Closed intertrochanteric fracture of left hip: Patient is status post open reduction internal fixation of a left intertrochanteric hip fracture. She is working with physical therapy and is awaiting placement as she will likely require halfway at the time of discharge. Reportedly, this morning, her sister stated she did not feel that she would have adequate help at home nor could she function at home. On my examination, she winces in pain with even the lightest touch. She will need the motivation of a halfway facility. Status: Acute Qualifiers: Encounter type: initial encounter Fracture alignment: displaced Qualified Code(s): S72.142A - Displaced intertrochanteric fracture of left femur, initial encounter for closed fracture Attestations Medical Necessity Statement*: Ongoing medical care and rehabilitation following intertrochanteric hip fracture. Coding Level of Care Code Acute Peanut Separator for Wesley Herrera Diagnoses Closed intertrochanteric fracture of left hip S72.142A Encounter type: initial encounter Fracture alignment: displaced
[2022-03-27] MEDS: acetaminophen 325 mg Tablet 650 MG PO (19:30)
[2022-03-27] MEDS: sennosides 8.6 mg Tablet 17.2 MG PO (20:20)
[2022-03-27] MEDS: citalopram 20 mg Tablet 40 MG PO (20:20)
[2022-03-27] MEDS: zolpidem 5 mg Tablet PO (20:23)
[2022-03-28] VITALS (17 sets, daily range): BP systolic 91–113; BP diastolic 54–72; PULSE 71–87; RESP 15–18; TEMP 36.3–36.9; O2SAT 2–97
[2022-03-28] MEDS: oxyCODONE 5 mg IR Tab/Cap PO ×4 (03:44→19:47)
[2022-03-28 04:39] LABS: Alanine Aminotransferase 9 U/L (0-33); Albumin Level 3.6 g/dL (3.5-5.2); Alkaline Phosphatase 87 IU/L (35-105); Anion Gap 13.8 (5-19); Aspartate Amino Transferase 19 U/L (0-32); Blood Urea Nitrogen 26 mg/dL (6-20); Calcium 8.9 mg/dL (8.5-10.5); Carbon Dioxide 26 mmol/L (22-29); Chloride 98 mmol/L (98-107); Globulin 2.9 g/dL (1.3-4.6); Glomerular Filtration Rate 47.2 mL/min (90-130); Glucose 106 mg/dL (65-115); Magnesium 2.1 mg/dL (1.7-2.3); NT Pro B Type Natriuretic Pept 729 pg/mL (0-125); Osmolality Calculated 283 mOsm/kg (285-295); Phosphorus 2.4 mg/dL (2.5-4.5); Potassium 3.8 mmol/L (3.5-5.1); Sodium 134 mmol/L (136-145); Total Bilirubin 0.5 mg/dL (0.15-1.2); Total Protein 6.5 g/dL (6.6-8.7)
[2022-03-28] MEDS: acetaminophen 325 mg Tablet 650 MG PO (05:39)
[2022-03-28] MEDS: ferrous sulfate EC 325 mg Tablet PO (05:39)
[2022-03-28] MEDS: montelukast sodium 10 mg Tablet PO (05:39)
[2022-03-28] MEDS: TRAMadol 50 mg Tablet PO ×3 (05:40→17:27)
[2022-03-28 06:55] LABS: Glucose Point of Care 140 mg/dL (70-110)
[2022-03-28] MEDS: HYDROmorphone 1 mg/mL INJ 1 mL 0.4 MG IVP (08:11)
[2022-03-28] MEDS: pantoprazole DR 40 mg Tablet PO (08:21)
[2022-03-28] MEDS: carvedilol 25 mg Tablet PO ×2 (08:21→21:02)
[2022-03-28] MEDS: docusate sodium 100 mg Capsule PO ×2 (08:21→17:27)
[2022-03-28] MEDS: aspirin 325 mg EC Tablet PO (08:21)
[2022-03-28] MEDS: spironolactone 25 mg Tablet 12.5 MG PO (08:22)
--- NOTE | 2022-03-28 10:16 | XR_ITS ---
WS: [id number] Exam: XR chest 1V portable [id number] Date/Time of Exam: 03/28/2022 10:35 AM Reason For Exam: hypoxia Comparison 03/26/2022. The lungs are clear and fully inflated. Normal cardiomediastinal silhouette for technique. A [employer]OPE[employer] t cardiac pacer superimposes the left chest. Regional bony elements are intact. XR/XR chest 1V portable [id number] IMPRESSION: 1. No acute cardiopulmonary finding. No change.
[2022-03-28] MEDS: FUROsemide 10 mg/mL SDV 4mL 40 MG IVP (11:41)
--- NOTE | 2022-03-28 12:54 | CTR_ITS ---
PROCEDURE INFORMATION: Exam: CTA Chest With Contrast Exam date and time: 03/28/2022 10:49 PM Age: 52 years old Clinical indication: Shortness of breath; Additional info: New onset hypoxia TECHNIQUE: Imaging protocol: Computed tomographic angiography of the chest with contrast. 3D rendering (Not supervised by radiologist): MIP and/or 3D reconstructed images were created by the technologist. Radiation optimization: All CT scans at this facility use at least one of these dose optimization techniques: automated exposure control; mA and/or kV adjustment per patient size (includes targeted exams where dose is matched to clinical indication); or iterative reconstruction. Contrast material: OMNI 300; Contrast volume: 75 ml; Contrast route: INTRAVENOUS (IV); COMPARISON: 1. CR XR chest 1V portable [id number] 03/28/2022 10:[address] abdomen pelvis w con* [id number] 11/29/2021 9:35 PM RADIATION DOSE METRICS: Total DLP (mGy-cm): 528.61 FINDINGS: Tubes, catheters and devices: Left chest wall cardiac device in remains in place. Pulmonary arteries: Normal. No pulmonary emboli. Aorta: No aortic aneurysm. No aortic dissection. Lungs: Dependent atelectasis in both posterior lung bases. Otherwise no lung consolidation or ground-glass opacity. Pleural spaces: Unremarkable. No pneumothorax. No pleural effusion. Heart: Minimal cardiomegaly with LV dilatation. Lymph nodes: Small calcifications adjacent to the distal esophagus probably represents nonenlarged calcified lymph nodes, nonspecific but may be related to chronic granulomatous disease. Spleen: Calcified splenic granuloma. Kidneys and ureters: Hypodensity in the partially visualized left kidney, measuring 3.4 cm, likely representing interval worsening of previously noted hydronephrosis on the left. Several small calculi were noted on the mid-distal ureter on the left on prior abdominal CT. Reassessment by CT may be helpful. Bones/joints: No acute fracture. Soft tissues: Unremarkable. Other findings: Streak artifacts arising from the cardiac pacer device. CT/CT angio chest PE protcl [id number] IMPRESSION: 1. Dependent lung atelectasis with no consolidation/ground-glass opacity. 2. Cardiac and other nonacute thoracic findings as above. 3. Renal abnormality. See discussion above.
--- NOTE | 2022-03-28 13:27 | PC.SOCIAL ---
IMM update IMM updated with patient. Verbalized an understanding. Copy Pg 2 provided. Initialled, dated, timed,and placed in chart.
--- NOTE | 2022-03-28 13:47 | PM.PN ---
Subjective Subjective: The patient is seen laying in her bed. When asked how she is doing, she is almost in tears answering. Her sister expressed concerns about her coming home and being unable to function. The patient has approximately 5 steps into her home, and she was placed on steps today with physical therapy. After 1 step, she became dizzy and hypotensive, and she was put back in bed. She also had pain out of control with that activity. Medications: Reviewed: Yes Vitals/I&O/Wt Last Vital Signs Temp 98.2 F 03/28/22 11:35 Pulse 78 03/28/22 11:35 Resp 16 03/28/22 11:35 BP 95/54 03/28/22 11:36 Pulse Ox 90 03/28/22 11:35 03/27/22 03/28/22 03/28/22 22:59 06:59 14:59 Intake Total 240 / 1390 120 / 120 Output Total 900 / 900 Balance 240 / 1390 -900 / 490 120 / 120 Physical Exam Const: COMMON NORMALS: no acute distress, patient oriented x3 and alert GENERAL APPEARANCE: cooperative and comfortable ORIENTATION/CONSCIOUSNESS: Yes awake HENMT: COMMON NORMALS: normocephalic and atraumatic HEAD & SCALP: normocephalic and atraumatic Eye: GENERAL EYE: appearance normal, both eyes and all related structures Chest: COMMONS NORMALS: normal inspection of the chest Resp: COMMON NORMALS: normal respiratory effort EFFORT & INSPECTION: Yes able to speak in complete sentences and Yes symmetric chest movement Extremity: LEFT LOWER EXTREMITY: Yes hip joint (Status post open reduction internal fixation intertrochanteric hip fracture) Left hip: Yes inspection (Dressings intact.) and Yes neurovascular exam (Intact distally with no evidence of DVT) Neuro: COMMON NORMALS: patient oriented x3 SENSORIUM/ORIENTATION: Yes alert Psych: COMMON NORMALS: mental status grossly normal APPEARANCE: Yes grossly normal ATTITUDE: Yes calm and Yes engaged ATTENTION/CONCENTRATION: Yes attention grossly intact Skin: COMMON NORMALS: no rashes or lesions noted GENERAL SKIN EXAM: no rashes or lesions noted Urinary Catheter Management: 2-way Urethral: Cath Placed During This Visit: yes, but has since been removed by the nurse Reason for Continuing Indwelling Catheter: Acute Urinary Retention or Obstruction Urinary Catheter Date of Insertion: 03/25/22 Urinary Catheter Time of Insertion: 23:43 Date Urinary Catheter Removed: 03/27/22 Time Urinary Catheter Discontinued: 05:50 Leger: Cath Placed During This Visit: yes Reason for Continuing Indwelling Catheter: Acute Urinary Retention or Obstruction Urinary Catheter Date of Insertion: 03/27/22 Urinary Catheter Time of Insertion: 19:00 Data : 03/27/22 04:00 03/28/22 03:40 A&P Assessment and plan (1) Closed intertrochanteric fracture of left hip: Patient is status post open reduction internal fixation of a left intertrochanteric hip fracture. She is working with physical therapy and is awaiting placement as she will likely require long term at the time of discharge. The patient has 5 steps into her home, and today, when she attempted to ambulate 1 step, she became dizzy and hypotensive. She was returned to her bed with concerns for falling. The patient sister has also expressed concern regarding her ability to function at home. Currently, she has not been approved for long term, but for safety reasons, she will likely still require this. Status: Acute Qualifiers: Encounter type: initial encounter Fracture alignment: displaced Qualified Code(s): S72.142A - Displaced intertrochanteric fracture of left femur, initial encounter for closed fracture Attestations Medical Necessity Statement*: Ongoing care following left intertrochanteric hip fracture. 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
--- NOTE | 2022-03-28 14:24 | PM.PN ---
Subjective Subjective: Patient was seen this morning, she sitting up in a chair, she tells me that her pain is well controlled, she is using oxygen, on 3 L, she tells me she does not use oxygen at home,, no oxygen during the night, denies any sleep apnea, no calf pain, no calf swelling, does have a history of CHF, EF has been reduced, but denies any wheezing, no shortness of breath on exertion here, no hemoptysis, no fevers, no chills Vitals/I&O/Wt Last Vital Signs Temp 98.2 F 03/28/22 11:35 Pulse 78 03/28/22 11:35 Resp 16 03/28/22 11:35 BP 95/54 03/28/22 11:36 Pulse Ox 90 03/28/22 11:35 03/27/22 03/28/22 03/28/22 22:59 06:59 14:59 Intake Total 240 / 1390 240 / 240 Output Total 900 / 900 Balance 240 / 1390 -900 / 490 240 / 240 Physical Exam Const: COMMON NORMALS: no acute distress and patient oriented x3 HENMT: COMMON NORMALS: normocephalic HEAD & SCALP: normocephalic Resp: COMMON NORMALS: normal respiratory effort, No retractions, No use of accessory muscles and clear to auscultation bilaterally AUSCULTATION: clear to auscultation bilaterally Cardio: COMMON NORMALS: regular rate, regular rhythm, S1 normal heart sound present and S2 normal heart sound present RATE: regular rate RHYTHM: regular rhythm HEART SOUNDS: S1 normal heart sound present and S2 normal heart sound present GI: COMMON NORMALS: Normal to inspection, nondistended, normoactive bowel sounds present, Soft to palpation, non-tender and No hepatosplenomegaly present PALPATION: Yes Soft to palpation and Yes No hepatosplenomegaly present Extremity: COMMON NORMALS: no pedal edema Neuro: COMMON NORMALS: patient oriented x3 Psych: COMMON NORMALS: mental status grossly normal Urinary Catheter Management: 2-way Urethral: Cath Placed During This Visit: yes, but has since been removed by the nurse Reason for Continuing Indwelling Catheter: Acute Urinary Retention or Obstruction Urinary Catheter Date of Insertion: 03/25/22 Urinary Catheter Time of Insertion: 23:43 Date Urinary Catheter Removed: 03/27/22 Time Urinary Catheter Discontinued: 05:50 Leger: Cath Placed During This Visit: yes Reason for Continuing Indwelling Catheter: Acute Urinary Retention or Obstruction Urinary Catheter Date of Insertion: 03/27/22 Urinary Catheter Time of Insertion: 19:00 Data : 03/27/22 04:00 03/28/22 03:40 A&P Assessment and plan (1) Fall: Status: Acute Qualifiers: Encounter type: initial encounter Qualified Code(s): W19.XXXA - Unspecified fall, initial encounter (2) Closed intertrochanteric fracture of left hip: Status: Acute Qualifiers: Encounter type: initial encounter Fracture alignment: displaced Qualified Code(s): S72.142A - Displaced intertrochanteric fracture of left femur, initial encounter for closed fracture (3) Left rotator cuff tear: Present prior to injury today. Currently scheduled for surgery in [place] on March 30. Status: Acute Qualifiers: Rotator cuff tear extent: unspecified tear extent Rotator cuff tear trauma status: unspecified whether traumatic Qualified Code(s): M75.102 - Unspecified rotator cuff tear or rupture of left shoulder, not specified as traumatic (4) Nonischemic cardiomyopathy: Chronically on carvedilol, lisinopril and Aldactone. Ejection fraction in November 28 to 42%. Has AICD. Evaluated by cardiology on March 01 for preoperative cardiac clearance for her upcoming rotator cuff repair. No further cardiac evaluation was recommended. No change in functional status since that time nor complaints of increased chest pain or shortness of breath. Status: Chronic (5) Nicotine dependence, cigarettes, uncomplicated: Status: Chronic Plan Fluid overload, diastolic and systolic CHF exacerbation, status post diuresis, creatinine 1.4, -1.7 L, no crackles on exam, will give 20 mg of Lasix, but requiring oxygen, monitor urine output, monitor creatinine, monitor potassium, BiPAP as needed, scheduled during the night -Given that she is requiring oxygen we will do a CT angiogram to evaluate for possible pulmonary emboli Inpatient admission Status post open left internal fixation left intertrochanteric hip fracture Pain control to include continuation of home citalopram, opioids, As needed Narcan on profile Antiemetics as needed Stool softeners Continue home carvedilol Continue home Aldactone Continue iron therapy which is a chronic medication at home DC Leger catheter SCDs and Lovenox for DVT prophylaxi PPI for GI prophylaxis Recheck renal function in the morning Is an established patient of Dr. Austin should she develop any issues related to kidney stones while hospitalized Type and screen Nicotine patch if needed PT and OT consultation - patient's postoperative rehabilitation will be hampered to a degree by her left rotator cuff tear and inability to effectively use the left upper extremity presently Case management for disposition planning - patient would like to try to do outpatient or in-home rehabilitation if she is able but understands an alternative would be short-term rehabilitation at facility Ultimate disposition will depend on clinical course Will need to notify orthopedic surgeon in [place] of necessary delay of planned rotator cuff repair Supportive care otherwise Will need reminder to follow-up regarding indeterminate liver density after discharge (had been recommended after hospital stay earlier this year) Findings, concerns and plans were discussed with patient and she was given an opportunity to ask questions. She understands that Dr. Camacho will be her orthopedic surgeon and plan presently is for surgical intervention at 8 AM tomorrow. 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
[2022-03-28] MEDS: cyclobenzaprine 10 mg Tablet PO (14:48)
[2022-03-28] MEDS: enoxaparin 40 mg/0.4 mL Syringe SUBCUT (14:48)
--- NOTE | 2022-03-28 15:35 | PC.OT ---
OT TREATMENT ATTEMPTED TWICE THIS P.M. PATIENT REPORTS AT FIRST ATTEMPT; PATIENT REPORTS THAT SHE JUST FINISHED WITH P.T. AND RETURNED TO BED AND IS IN TOO MUCH PAIN AT THIS TIME. AT SECOND ATTEMPT, PATIENT APOLOGIZES FOR BEING GROUCHY ; TOLD OK WAS IN PAIN. STATES THAT SHE IS GETTING READY TO GO TO CT SCAN AND REQUESTS NO OT AT THIS TIME. WILL ATTEMPT AGAIN TOMORROW.
[2022-03-28] MEDS: lisinopril 10 mg Tablet PO (17:27)
--- NOTE | 2022-03-28 19:31 | PC.NURSE ---
VERBAL ORDER BY DR MALHOTRA TO PULL SINGER. SINGER [place] [id number]. PT TOLERATED WELL. PT HAS YET TO VOID. WILL CONTINUE TO MONITOR PT.
[2022-03-28] MEDS: citalopram 20 mg Tablet 40 MG PO (21:02)
[2022-03-28] MEDS: sennosides 8.6 mg Tablet 17.2 MG PO (21:02)
[2022-03-28] MEDS: zolpidem 5 mg Tablet PO (21:59)
[2022-03-28] MEDS: iohexol 300 mg/mL 100 mL Btl IV (22:51)
[2022-03-29] VITALS (12 sets, daily range): BP systolic 96–106; BP diastolic 60–67; PULSE 68–88; RESP 16–18; TEMP 35.9–36.8; O2SAT 2–98
[2022-03-29] MEDS: oxyCODONE 5 mg IR Tab/Cap PO ×4 (00:29→13:52)
[2022-03-29 02:53] LABS: Alanine Aminotransferase 10 U/L (0-33); Albumin Level 3.5 g/dL (3.5-5.2); Alkaline Phosphatase 95 IU/L (35-105); Anion Gap 14.6 (5-19); Aspartate Amino Transferase 18 U/L (0-32); Blood Urea Nitrogen 24 mg/dL (6-20); Calcium 8.6 mg/dL (8.5-10.5); Carbon Dioxide 25 mmol/L (22-29); Chloride 97 mmol/L (98-107); Glomerular Filtration Rate 52.2 mL/min (90-130); Glucose 99 mg/dL (65-115); NT Pro B Type Natriuretic Pept 588 pg/mL (0-125); Osmolality Calculated 280 mOsm/kg (285-295); Phosphorus 2.1 mg/dL (2.5-4.5); Potassium 3.6 mmol/L (3.5-5.1); Sodium 133 mmol/L (136-145); Total Bilirubin 0.3 mg/dL (0.15-1.2); Total Protein 6.5 g/dL (6.6-8.7)
[2022-03-29 03:00] LABS: Creatinine Clr Calc Pharmacy 61.0882
[2022-03-29] MEDS: montelukast sodium 10 mg Tablet PO (05:58)
[2022-03-29] MEDS: ferrous sulfate EC 325 mg Tablet PO (05:58)
[2022-03-29] MEDS: TRAMadol 50 mg Tablet PO (08:54)
[2022-03-29] MEDS: pantoprazole DR 40 mg Tablet PO (09:24)
[2022-03-29] MEDS: aspirin 325 mg EC Tablet PO (09:24)
[2022-03-29] MEDS: lisinopril 10 mg Tablet PO (09:24)
[2022-03-29] MEDS: carvedilol 25 mg Tablet PO (09:25)
[2022-03-29] MEDS: docusate sodium 100 mg Capsule PO (09:25)
[2022-03-29] MEDS: spironolactone 25 mg Tablet 12.5 MG PO (09:32)
[2022-03-29] MEDS: cyclobenzaprine 10 mg Tablet PO (13:54)
--- NOTE | 2022-03-29 21:42 | P.DS_ITS ---
Discharge Providers Date of Admission: 03/25/22 20:23 Date of Discharge: March 29, 2022 Attending Provider at Admission: Adelina Garcia MD Attending Provider at Discharge: Rony Benitez Primary Care Provider: Elena Gray MD Diagnoses at Discharge Discharge Diagnosis (1) Fall: Status: Acute Qualifiers: Encounter type: initial encounter Qualified Code(s): W19.XXXA - Unspecified fall, initial encounter (2) Closed intertrochanteric fracture of left hip: Status: Acute Qualifiers: Encounter type: initial encounter Fracture alignment: displaced Qualified Code(s): S72.142A - Displaced intertrochanteric fracture of left femur, initial encounter for closed fracture (3) Left rotator cuff tear: Status: Acute Qualifiers: Rotator cuff tear extent: unspecified tear extent Rotator cuff tear trauma status: unspecified whether traumatic Qualified Code(s): M75.102 - Unspecified rotator cuff tear or rupture of left shoulder, not specified as traumatic (4) Nonischemic cardiomyopathy: Status: Chronic Permanent problem details: Specific etiology unknown, may have been viral or related to uncontrolled hypertension from her recollection Echocardiogram November 2021 with ejection fraction of 42% (5) Nicotine dependence, cigarettes, uncomplicated: Status: Chronic Reason for Visit Reason for Visit: HIP PAIN/FALL Hospital Course Hospital Course Pleasant 52-year-old lady admitted for cyst management after a fall and left hip pain with finding of left hip fracture, also with history of nonischemic cardiomyopathy, low EF, AICD in place, underwent ORIF left hip on 03/26. Hospitalization complicated by decreasing oxygenation, requiring supplemental oxygen 2 L transiently with fluid overload, acute systolic CHF exacerbation for which received IV Lasix, with good diuresis and improvement in oxygenation to the point that today she weaned off oxygen to room air. Home oxygen evaluation requested prior to discharge. CT angiogram of the chest negative for PE, atelectasis noted, for which she is asked to continue incentive spirometer. She is asked to increase her Lasix for now to double the usual dose for the next week. She is otherwise asked to continue to follow-up. She has been having muscle spasms which have been making her pain worse. Which she is prescribed muscle relaxer, but with caution on overlapping with pain medication as well to monitor due to risk of mental status changes. Home health care is requested for continued skilled care at home. Physical Exam Const: COMMON NORMALS: alert GENERAL APPEARANCE: cooperative ORIENTATION/CONSCIOUSNESS: Yes awake HENMT: COMMON NORMALS: normocephalic, EAC's normal, Normal external nose present and moist oral mucous membranes HEAD & SCALP: normocephalic NOSE: Normal external nose present EXTERNAL AUDITORY CANAL: EAC's normal Neck/C-Spine: COMMON NORMALS: no meningeal signs Chest: CHEST: Yes Symmetrical chest wall rise Resp: COMMON NORMALS: clear to auscultation bilaterally AUSCULTATION: clear to auscultation bilaterally Cardio: COMMON NORMALS: regular rate, regular rhythm and No murmurs present (Cardio) RATE: regular rate RHYTHM: regular rhythm GI: COMMON NORMALS: Normal to inspection, nondistended, normoactive bowel soun ds present, Soft to palpation and non-tender PALPATION: Yes Soft to palpation Extremity: COMMON NORMALS: no pedal edema OTHER: L femur w mild bruising. No active bleeding. Minimal if any swelling. Dressing intact. Neuro: COMMON NORMALS: moves all extremities SENSORIUM/ORIENTATION: Yes alert MENINGEAL SIGNS: Yes no meningeal signs Psych: COMMON NORMALS: mental status grossly normal Skin: RASHES: no rashes Urinary Catheter Management: 2-way Urethral: Cath Placed During This Visit: yes, but has since been removed by the nurse Reason for Continuing Indwelling Catheter: Acute Urinary Retention or Obstruction Urinary Catheter Date of Insertion: 03/25/22 Urinary Catheter Time of Insertion: 23:43 Date Urinary Catheter Removed: 03/27/22 Time Urinary Catheter Discontinued: 05:50 [place]: Cath Placed During This Visit: yes Reason for Continuing Indwelling Catheter: Acute Urinary Retention or Obstruction Urinary Catheter Date of Insertion: 03/27/22 Urinary Catheter Time of Insertion: 19:00 Discharge Data Studies Completed and Pending Completed Studies During Hospitalization Category Date Time Status CT angio chest PE protcl [id number] Stat Cat Scan 03/28/22 12:54 Completed XR chest 1V portable [id number] Routine Exams 03/26/22 10:31 Completed XR chest 1V portable [id number] Routine Exams 03/28/22 10:16 Completed XR hip LT 2-3V wo/w pel* [id number] Routine Exams 03/26/22 08:00 Completed XR hip LT 2-3V wo/w pel* [id number] Urgent Exams 03/25/22 19:12 Completed XR knee LT 1-2V [id number] Urgent Exams 03/25/22 19:12 Completed Pending at discharge Category Date Time Status ABG ONLY [Arterial Blood Gas W/O Coox] Stat Lab 03/26/22 10:31 Ordered Radiology Impressions Knee X-Ray 03/25/22 19:12 IMPRESSION: No acute findings. Hip/Pelvis X-Ray 03/26/22 08:00 IMPRESSION: 1. Satisfactory internal fixation involving an intertrochanteric fracture of the left hip. Chest X-Ray 03/28/22 10:16 IMPRESSION: 1. No acute cardiopulmonary finding. No change. Chest CTA 03/28/22 12:54 IMPRESSION: 1. Dependent lung atelectasis with no consolidation/ground-glass opacity. 2. Cardiac and other nonacute thoracic findings as above. 3. Renal abnormality. See discussion above. Laboratory Results WBC 9.9 10^3/uL (4.0-10.0) 03/27/22 04:00 RBC 3.18 10^6/uL (4.1-5.3) L 03/27/22 04:00 Hgb 10.6 g/dL (11.5-15.3) L 03/27/22 04:00 Hct 30.7 % (37.0-47.0) L 03/27/22 04:00 MCV 96.5 fl (81-99) 03/27/22 04:00 MCH 33.3 pg (28.0-34.0) 03/27/22 04:00 MCHC 34.5 g/dL (30.0-36.0) 03/27/22 04:00 RDW 13.4 % (12.1-15.1) 03/27/22 04:00 Plt Count 161 10^3/cmm (130-400) 03/27/22 04:00 MPV 11.0 fL (7.4-10.4) H 03/27/22 04:00 Neut % (Auto) 81.4 % 03/27/22 04:00 Lymph % (Auto) 12.5 % 03/27/22 04:00 [place] % (Auto) 5.7 % 03/27/22 04:00 Eos % (Auto) 0.1 % 03/27/22 04:00 Baso % (Auto) 0.1 % 03/27/22 04:00 Neut # (Auto) 8.05 10^3/uL (1.8-7.7) H 03/27/22 04:00 Lymph # (Auto) 1.2 10^3/uL (0.8-4.8) 03/27/22 04:00 [place] # (Auto) 0.6 10^3/uL (0.2-0.9) 03/27/22 04:00 Eos # (Auto) 0.0 10^3/uL (0.0-0.8) 03/27/22 04:00 Baso # (Auto) 0.0 10^3/uL (0.0-0.1) 03/27/22 04:00 Nucleated RBC % (auto) 0 % 03/27/22 04:00 Nucleated RBCs # 0.0 /100WBC 03/27/22 04:00 PT 13.70 SECONDS (12.1-14.9) 03/25/22 19:30 INR 1.02 (0.8-1.2) 03/25/22 19:30 APTT 30.0 SECONDS (23.9-36.7) 03/25/22 19:30 Sodium 133 mmol/L (136-145) L 03/29/22 01:56 Potassium 3.6 mmol/L (3.5-5.1) 03/29/22 01:56 Chloride 97 mmol/L (98-107) L 03/29/22 01:56 Carbon Dioxide 25 mmol/L (22-29) 03/29/22 01:56 Anion Gap 14.6 (5-19) 03/29/22 01:56 BUN 24 mg/dL (6-20) H 03/29/22 01:56 Creatinine 1.1 mg/dL (0.5-0.9) H 03/29/22 01:56 GFR Calculation 52.2 mL/min (90-130) L 03/29/22 01:56 Glucose 99 mg/dL (65-115) 03/29/22 01:56 POC Glucose 140 mg/dL (70-110) H 03/27/22 20:50 Calculated Osmolality 280 mOsm/kg (285-295) L 03/29/22 01:56 Calcium 8.6 mg/dL (8.5-10.5) 03/29/22 01:56 Phosphorus 2.1 mg/dL (2.5-4.5) L 03/29/22 01:56 Magnesium 2.0 mg/dL (1.7-2.3) 03/29/22 01:56 Total Bilirubin 0.3 mg/dL (0.15-1.2) 03/29/22 01:56 AST 18 U/L (0-32) 03/29/22 01:56 ALT 10 U/L (0-33) 03/29/22 01:56 Alkaline Phosphatase 95 IU/L (35-105) 03/29/22 01:56 NT-Pro-B Natriuret Pep 588 pg/mL (0-125) H 03/29/22 01:56 NT-Pro-B Natriuret Pep Cancelled 03/29/22 01:56 Total Protein 6.5 g/dL (6.6-8.7) L 03/29/22 01:56 Albumin 3.5 g/dL (3.5-5.2) 03/29/22 01:56 Globulin 3.0 g/dL (1.3-4.6) 03/29/22 01:56 Urine Color Yellow (Yellow) 03/25/22 23:40 Urine Appearance Clear (CLEAR) 03/25/22 23:40 Urine pH 5 (5-7) 03/25/22 23:40 Ur Specific [place] 1.030 (1.005-1.030) 03/25/22 23:40 Urine Protein Neg (Negative) 03/25/22 23:40 Urine Glucose (UA) Norm (Normal) 03/25/22 23:40 Urine Ketones Negative (Negative) 03/25/22 23:40 Urine Blood Neg (Negative) 03/25/22 23:40 Urine Nitrate Negative (Negative) 03/25/22 23:40 Urine Bilirubin Neg (Negative) 03/25/22 23:40 Urine Urobilinogen Norm mg/dL (Negative) 03/25/22 23:40 Ur Leukocyte Esterase Negative (Negative) 03/25/22 23:40 Blood Type O Positive 03/26/22 03:45 Rho(D) Type Positive 03/26/22 03:45 Antibody Screen Negative 03/26/22 03:45 Vitals Last Vital Signs Temp 97.1 F L 03/29/22 15:59 Pulse 77 03/29/22 15:59 Resp 16 03/29/22 15:59 BP 96/60 03/29/22 15:59 Pulse Ox 92 03/29/22 16:40 Discharge Plan Discharge Patient Disposition: Home Health Service Condition: Stable Prescriptions: New acetaminophen 325 mg Tablet 650 mg PO Q6H PRN (Reason: Mild/Mod Pain Or Temp >/= 101) 15 Days Qty: 60 0RF aspirin 325 mg Tablet,Delayed Release (Dr/Ec) 325 mg PO DAILY 30 Days Qty: 30 0RF oxycodone 5 mg Tablet 5 mg PO Q4H PRN (Reason: Severe pain first) 7 Days Qty: 30 0RF tizanidine 2 mg capsule 2 mg PO Q6H PRN (Reason: muscle spasticity) Qty: 20 2RF Rx Instructions: do not exceed 3 doses per 24 hrs Continued citalopram [Celexa] 40 mg tablet 40 mg PO BEDTIME 0RF zolpidem 10 mg tablet 10 mg PO BEDTIME 0RF nitroglycerin [Nitrostat] 0.4 mg tablet, sublingual 0.4 mg SUBLINGUAL Q5M PRN (Reason: chest pain) Qty: 25 3RF ferrous sulfate 325 mg (65 mg iron) tablet 325 mg PO QAM 0RF carvedilol 25 mg tablet 25 mg PO BID Qty: 60 4RF spironolactone 25 mg tablet 12.5 mg PO DAILY 0RF lisinopril 20 mg tablet 20 mg PO BID 0RF Hold Instructions: Resume on 12/13/21. Hold until seen by primary care Vitamin B-12 50 mcg Tablet 50 mcg PO QAM 0RF montelukast 10 mg tablet 10 mg PO QAM 0RF levalbuterol tartrate 45 mcg/actuation Hfa Aerosol Inhaler 2 inh INHALATION Q6H PRN (Reason: Shortness Of Breath) 0RF Changed Lasix 20 mg Tablet 20 mg PO DAILY PRN (Reason: Edema) Qty: 0 0RF Held aspirin [Adult Low Dose Aspirin] 81 mg tablet,delayed release (DR/EC) 162 mg PO QAM 0RF Hold Instructions: Resume on 04/26/22. Resume after 30 days of full dose aspirin Discharge Orders: Discharge Order (Routine); Ordered 03/29/22 Ordered By: Valencia Camacho Other Ambulatory Orders: DME: Walker (Order) Location: None Selected Ordered By: Valencia Camacho Referrals: [facility] [Outside] Elena Gray MD [Primary Care Provider] - 04/06/22 1:30 pm Valencia Camacho MD [Physician] - 04/12/22 10:00 am (Your initial visit will be with Owen Al, nurse practitioner. Subsequent visit will be with me. ) Discharge Diet: Usual diet and Cardiac Discharge Activity: Increase activity as tolerated, Limit activity as instructed and Use walker/crutches as instructed Patient Instructions: Oxycodone/Acetaminophen (By mouth), Aspirin (By mouth), Tizanidine (By mouth), Opioid Safety Activity Restrictions/Additional Instructions: You may be weightbearing as tolerated. Home health for wound checks, gait training, strengthening, and ambulation. Keep wound covered until the dressings come off. You may shower, but do not soak in a bathtub. Please continue incentive spirometer for atelectasis. Please continue Lasix at double the usual dose for the next week. Measure your weight daily. Follow up with your primary doctor regarding congestive heart failure. Need for oxygen. Discharge Attestations Time Spent in Discharge Care*: greater than 30 min Quality Metrics Clinical Quality Measures [ No reported AMI, CVA or VTE this stay] Coding Level of Care Code Acute [facility] note Diagnoses Fall W19.XXXA Encounter type: initial encounter Closed intertrochanteric fracture of left hip S72.142A Encounter type: initial encounter Fracture alignment: displaced Left rotator cuff tear M75.102 Rotator cuff tear extent: unspecified tear extent Rotator cuff tear trauma status: unspecified whether traumatic Nonischemic cardiomyopathy I42.8 Nicotine dependence, cigarettes, uncomplicated F17.210
== END 2022-03-29 17:34 | disposition home or self-care (01) | DRG 480 ==
LOC: ER 19:54 → MEDSURG 20:40
PROVIDERS: Family Medicine; Specialist; Admitting Provider Hospitalist; Emergency Provider Emergency Medicine; PCP Family Medicine; Visit Provider Internal Medicine
PROC: 0QS706Z Reposition Left Upper Femur with Intramedullary Internal Fixation Device, Open Approach (ICD-10-PCS; principal; 2022-03-26 07:40)
DX: S72.142A Displaced intertrochanteric fracture of left femur, initial encounter for closed fracture (principal); I50.23 Acute on chronic systolic (congestive) heart failure; I42.9 Cardiomyopathy, unspecified; J98.11 Atelectasis; M75.102 Unspecified rotator cuff tear or rupture of left shoulder, not specified as traumatic; Z95.810 Presence of automatic (implantable) cardiac defibrillator; I11.0 Hypertensive heart disease with heart failure; Z86.73 Personal history of transient ischemic attack (TIA), and cerebral infarction without residual deficits; F17.210 Nicotine dependence, cigarettes, uncomplicated; Z79.82 Long term (current) use of aspirin; W01.0XXA Fall on same level from slipping, tripping and stumbling without subsequent striking against object, initial encounter; Z87.442 Personal history of urinary calculi; R09.02 Hypoxemia
CPT/HCPCS: 36415; 36416; 51702; 71045; 71275; 73502; 73560; 76000; 80048; 80053; 81003; 82962; 83735; 83880; 84100; 85025; 85610; 85730; 86850; 86900; 94660; 96372; 96374; 96375; 96376; 97110; 97116; 97161; 97165; 97530; 99285; C1713; J0690; J1100; J1170; J1650; J1940; J2060; J2270; J2405; J3010; J3490; J3535; Q9967

== ENCOUNTER → 2022-04-14 12:39 | Outpatient (BNVA) | payer MEDICARE, MEDICAID, SELFPAY | PROVIDERS: PCP Family Medicine; Visit Provider Nurse Practitioner Family | DX: Z98.890 Other specified postprocedural states (principal); S72.009A Fracture of unspecified part of neck of unspecified femur, initial encounter for closed fracture; X58.XXXA Exposure to other specified factors, initial encounter | CPT/HCPCS: 73502; 99024; 99214 ==

== ENCOUNTER 2022-05-17 14:51 | Observation (INO) | payer MEDICARE, MEDICAID, SELFPAY ==
[2022-05-17] VITALS (19 sets, daily range): BP systolic 116–148; BP diastolic 68–89; PULSE 93–107; RESP 16–30; TEMP 36.8–37.2; O2SAT 92–99; BMI 27.4; BMI 28.3
--- NOTE | 2022-05-17 14:53 | XRR_ITS ---
PROCEDURE INFORMATION: Exam: XR Chest Exam date and time: 05/17/2022 3:08 PM Age: 52 years old Clinical indication: Pain; Angina pectoris; Additional info: Chest pain TECHNIQUE: Imaging protocol: Radiologic exam of the chest. Views: 1 view. COMPARISON: CR XR chest 1V portable [id number] 03/28/2022 10:42 AM FINDINGS: Tubes, catheters and devices: Left chest wall single chamber cardiac device remains in place. Lungs: Cardiac silhouette size, and vascularity are somewhat accentuated, likely related to poor inspiration/expansion however clinical correlation for mild CHF should be obtained. Upper lungs are clear. Lung bases are suboptimally assessed. Minimal left basilar linear opacities are stable suggesting atelectasis-scarring. Pleural spaces: Unremarkable. No pleural effusion. No pneumothorax. Heart/Mediastinum: As above. Bones/joints: No acute osseous findings. Probable mild osteopenia. Other findings: Single view was submitted. XR/XR chest 1V portable [id number] IMPRESSION: 1. Accentuated cardiac silhouette size and vascularity. See discussion above. 2. No obvious acute consolidation. Suboptimal lung base assessment. Followup including lateral view may be obtained if clinically indicated.
--- NOTE | 2022-05-17 14:54 | ECG_ITS ---
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 Measurements Intervals [place] Rate: 106 P: 144 NM: 140 QRS: -20 QRSD: 128 T: 152 QT: 400 QTc: 533 Interpretive Statements ECTOPIC ATRIAL TACHYCARDIA LEFT VENTRICULAR HYPERTROPHY AND ST-T CHANGE [VOLTAGE CRITERIA PLUS ST/T ABNORMALITY] Compared to ECG 11/30/2021 03:59:19 Left ventricular hypertrophy now present ST (T wave) deviation now present Sinus rhythm no longer present Left anterior fascicular block no longer present Myocardial infarct finding no longer present T-wave abnormality no longer present Possible ischemia no longer present Electronically Signed On 05-17-2022 18:56:13 CDT by Pola Ferrera M.D. [id number]
--- NOTE | 2022-05-17 14:55 | W.ED.GENADLT ---
HPI - General Adult General: Chief complaint: Chest Pain Stated complaint: CHEST PAIN Time Seen by Provider: 05/17/22 14:53 History of Present Illness: Patient is a 52-year-old female with a history of CHF with EF of only 15%, ICD dependent, HTN, TIA presenting to the emergency with sudden onset of chest pain. Patient tells me chest pain started 3 hours ago has been intermittently and worsening. Patient denies getting shocked by her ICD device. Patient reports taking 2 doses of nitro at home with improvement in pain. Patient to aspirin 325 prior to coming to the emergency room., Patient says that the pain has not improved and said to call EMS. In route, patient received Nitropaste and fentanyl 50 mcg. Patient reports pain is now currently 3 out of 10. Patient reports that the chest pain is mostly pressure-like but earlier was pleuritic and sharp. Patient reports nonproductive cough with associate shortness of breath. Patient denies any abdominal pain, nausea/vomiting, diarrhea melena/hematochezia. Onset:3 hrs ago Duration:3 hrs Location:home Severity:moderate Associated symptoms: Reports chest pain and dyspnea; Deny nausea, rash, palpitations or vomiting Review of Systems Const: Denies: fever(s) or chills Eyes: Denies: change in vision ENMT: Denies: mouth pain Card: Reports: chest pain and dyspnea on exertion; Denies: palpitations Resp: Reports: dyspnea and non-productive cough; Denies: productive cough GI: Denies: abdominal pain, nausea, vomiting or diarrhea : Denies: dysuria Musc: Denies: extremity pain Skin/Breast: Denies: rash or new lesions Neuro: Denies: weakness in extremities Psych: Reports: other (Normal mood) Cedric/Lymph: Denies: easy bruising [facility] PFSH: Medical History CHF (congestive heart failure) Related to nonischemic cardiomyopathy, most recent ejection fraction with with EF 42%. History of recurrent UTIs History of TIA (transient ischemic attack) HTN (hypertension) ICD (implantable cardioverter-defibrillator) in place Mass of right lobe of liver ~3.5 x 4 cm, indeterminant, hypodense, first noted 11/2021 Nonischemic cardiomyopathy Specific etiology unknown, may have been viral or related to uncontrolled hypertension from her recollection Echocardiogram November 2021 with ejection fraction of 42% Obstructive pyelonephritis (~11/2021) Renal stones Ureteral calculus Surgical History S/P ureteral stent placement (~11/2021) Status post cholecystectomy Status post placement of cardiac pacemaker Family History Father , AT AGE 77 CAD (coronary artery disease) Cancer lung cancer Mother , AT AGE 60 Cancer OVARIAN Denies family history of Clotting disorder Anesthesia complication Bleeding disorder Social History Smoking and tobacco status: current every day smoker cigarettes Packs smoked per day: 0.5 Years cigarettes smoked: 45 Second hand smoke exposure: Yes Alcohol intake: current Lives independently: Yes Marital status: service: No Current occupational status: disabled Current gender identity: Female Physical Exam Const: COMMON NORMALS: alert HENMT: COMMON NORMALS: atraumatic HEAD & SCALP: atraumatic MOUTH: moist mucous membranes not abnormal Eye: COMMON NORMALS: EOMs intact bilaterally and conjunctivae normal CONJUNCTIVA: Yes conjunctivae normal Neck/C-Spine: COMMON NORMALS: full ROM and supple Resp: COMMON NORMALS: normal respiratory effort OTHER: + Coarse breath sounds bilaterally Cardio: COMMON NORMALS: regular rate RATE: regular rate GI: COMMON NORMALS: Soft to palpation and non-tender PALPATION: Yes Soft to palpation Extremity: COMMON NORMALS: full ROM Neuro: SENSORIUM/ORIENTATION: Yes alert MOTOR EXAM: No Abnormal motor strength present and Other motor observations present (no focal motor deficits) Psych: COMMON NORMALS: speech normal SPEECH: Yes normal speech MOOD & AFFECT: Yes euthymic mood Course Vital Signs: Vital signs: Vital Signs Temperature 98.9 F 05/17/22 14:53 Pulse Rate 100 05/17/22 18:30 Respiratory Rate 30 H 05/17/22 18:30 Blood Pressure 144/87 05/17/22 18:30 Pulse Oximetry 93 05/17/22 18:30 Oxygen Delivery Me thod Nasal Cannula 05/17/22 14:53 [facility] - General Adult Medical Decision Making Patient is a 52-year-old female with a history of CHF with EF of only 15%, ICD dependent, HTN, TIA presenting to the emergency with sudden onset of chest pain. Patient tells me chest pain started 3 hours ago has been intermittently and worsening. On physical exam, patient is hemodynamically stable. Patient appears to have coarse breath sounds bilaterally. Troponin x2 with delta less than 5. Patient continues to have intermittent severe chest pain. X-ray chest appears to be clear. D-dimer ordered. Patient was admitted to hospital further work-up chest pain. Patient received multiple doses of pain medicine with minimal improvement in chest pain. Patient reports headache with taking nitro. We will not start patient on nitro drip. Disposition: admission Lab Data : 05/17/22 15:08 05/17/22 15:08 Radiology Impressions Chest X-Ray 05/17/22 14:53 IMPRESSION: 1. Accentuated cardiac silhouette size and vascularity. See discussion above. 2. No obvious acute consolidation. Suboptimal lung base assessment. Followup including lateral view may be obtained if clinically indicated. Laboratory Results WBC 10.1 10^3/uL (4.0-10.0) H 05/17/22 15:08 RBC 3.16 10^6/uL (4.1-5.3) L 05/17/22 15:08 Hgb 10.8 g/dL (11.5-15.3) L 05/17/22 15:08 Hct 33.1 % (37.0-47.0) L 05/17/22 15:08 MCV 104.7 fl (81-99) H 05/17/22 15:08 MCH 34.2 pg (28.0-34.0) H 05/17/22 15:08 MCHC 32.6 g/dL (30.0-36.0) 05/17/22 15:08 RDW 13.2 % (12.1-15.1) 05/17/22 15:08 Plt Count 176 10^3/cmm (130-400) 05/17/22 15:08 MPV 11.0 fL (7.4-10.4) H 05/17/22 15:08 Neut % (Auto) 79.7 % 05/17/22 15:08 Lymph % (Auto) 13.0 % 05/17/22 15:08 [place] % (Auto) 5.3 % 05/17/22 15:08 Eos % (Auto) 1.1 % 05/17/22 15:08 Baso % (Auto) 0.6 % 05/17/22 15:08 Neut # (Auto) 8.05 10^3/uL (1.8-7.7) H 05/17/22 15:08 Lymph # (Auto) 1.3 10^3/uL (0.8-4.8) 05/17/22 15:08 [place] # (Auto) 0.5 10^3/uL (0.2-0.9) 05/17/22 15:08 Eos # (Auto) 0.1 10^3/uL (0.0-0.8) 05/17/22 15:08 Baso # (Auto) 0.1 10^3/uL (0.0-0.1) 05/17/22 15:08 Nucleated RBC % (auto) 0 % 05/17/22 15:08 Nucleated RBCs # 0.0 /100WBC 05/17/22 15:08 D-Dimer 0.55 ug/mIFEU (0-0.59) 05/17/22 19:03 Sodium 139 mmol/L (136-145) 05/17/22 15:08 Potassium 3.7 mmol/L (3.5-5.1) 05/17/22 15:08 Chloride 106 mmol/L (98-107) 05/17/22 15:08 Carbon Dioxide 21 mmol/L (22-29) L 05/17/22 15:08 Anion Gap 15.7 (5-19) 05/17/22 15:08 BUN 15 mg/dL (6-20) 05/17/22 15:08 Creatinine 1.1 mg/dL (0.5-0.9) H 05/17/22 15:08 GFR Calculation 52.2 mL/min (90-130) L 05/17/22 15:08 Glucose 86 mg/dL (65-115) 05/17/22 15:08 Calculated Osmolality 288 mOsm/kg (285-295) 05/17/22 15:08 Calcium 8.7 mg/dL (8.5-10.5) 05/17/22 15:08 Troponin T Baseline 12 ng/L (0-10) H 05/17/22 15:08 Troponin T 120 Minute 11.96 ng/L (0-10) H 05/17/22 17:02 Delta Troponin T -0.04 ABS# (0-10) L 05/17/22 17:02 NT-Pro-B Natriuret Pep 4839 pg/mL (0-125) H 05/17/22 15:08 Discharge Plan Discharge Patient Disposition: Admitted As Inpatient Clinical Impression: Chest pain Condition: Stable Coding Level of Care Code ED Gluing Machine Feeder for Jesusg Fwd Exam Comprehensive
[2022-05-17] MEDS: fentaNYL 50 mcg/mL INJ 2mL IVP ×2 (15:26→16:03)
[2022-05-17 15:27] LABS: Basophils # 0.1 10^3/uL (0.0-0.1); Basophils % 0.6 %; Eosinophils # 0.1 10^3/uL (0.0-0.8); Eosinophils % 1.1 %; Hematocrit 33.1 % (37.0-47.0); Hemoglobin 10.8 g/dL (11.5-15.3); Lymphocytes # 1.3 10^3/uL (0.8-4.8); Mean Corpuscular HGB Conc 32.6 g/dL (30.0-36.0); Mean Corpuscular Hemoglobin 34.2 pg (28.0-34.0); Mean Corpuscular Volume 104.7 fl (81-99); Monocytes # 0.5 10^3/uL (0.2-0.9); Monocytes % 5.3 %; Neutrophils # 8.05 10^3/uL (1.8-7.7); Neutrophils % 79.7 %; Nucleated Red Blood Cells % 0 %; Platelet Count 176 10^3/cmm (130-400); Red Blood Count 3.16 10^6/uL (4.1-5.3); Red Cell Distribution Width 13.2 % (12.1-15.1); White Blood Count 10.1 10^3/uL (4.0-10.0)
[2022-05-17] MEDS: ondansetron 2 mg/ML SDV 2 mL 4 MG IVP (15:27)
[2022-05-17 15:53] LABS: Troponin(5th) Baseline 12 ng/L (0-10)
[2022-05-17 16:00] LABS: Anion Gap 15.7 (5-19); Blood Urea Nitrogen 15 mg/dL (6-20); Calcium 8.7 mg/dL (8.5-10.5); Carbon Dioxide 21 mmol/L (22-29); Chloride 106 mmol/L (98-107); Glomerular Filtration Rate 52.2 mL/min (90-130); Glucose 86 mg/dL (65-115); NT Pro B Type Natriuretic Pept 4839 pg/mL (0-125); Osmolality Calculated 288 mOsm/kg (285-295); Potassium 3.7 mmol/L (3.5-5.1); Sodium 139 mmol/L (136-145)
--- NOTE | 2022-05-17 16:32 | PC.NURSE ---
Nitro paste removed from right chest wall and given Fentanyl 50mcg for c/o headache and residual Chest pain
--- NOTE | 2022-05-17 16:48 | ECG_ITS ---
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 Measurements Intervals [place] Rate: 92 P: 61 SC: 145 QRS: -49 QRSD: 129 T: 53 QT: 433 QTc: 538 Interpretive Statements SINUS RHYTHM LEFT AXIS DEVIATION [QRS AXIS < -30] MODERATE INTRAVENTRICULAR CONDUCTION DELAY [105+ ms QRS DURATION, 80+ ms Q/S IN V1/V2, NO Q AND 60+ ms R IN I/aVL/V5/V6] PROLONGED QT INTERVAL Compared to ECG 05/17/2022 15:02:13 Left-axis deviation now present Intraventricular conduction delay now present Prolonged QT interval now present Left ventricular hypertrophy no longer present ST (T wave) deviation no longer present Electronically Signed On 05-17-2022 18:59:25 CDT by Pola Ferrera M.D. [id number]
[2022-05-17 17:36] LABS: Troponin 5 2HR 11.96 ng/L (0-10)
[2022-05-17 17:45] LABS: Troponin 5 2HR Delta -0.04 ABS# (0-10)
[2022-05-17] MEDS: HYDROmorphone 1 mg/mL INJ 1 mL 0.5 MG IVP ×2 (17:59→23:10)
[2022-05-17 19:24] LABS: D Dimer 0.55 ug/mIFEU (0-0.59)
[2022-05-17 19:31] LABS: Adenovirus Not Detected (NOT DETECT); Chlamydia Pneumoniae Not Detected (NOT DETECT); Coronavirus 229E,HKU1,NL63,OC4 Not Detected (NOT DETECT); Human Metapneumovirus Not Detected (NOT DETECT); Human Rhinovirus/Enterovirus Not Detected (NOT DETECT); Influenza A Not Detected (NOT DETECT); Influenza A H1 Not Detected (NOT DETECT); Influenza A H1-2009 Not Detected (NOT DETECT); Influenza A H3 Not Detected (NOT DETECT); Influenza B Not Detected (NOT DETECT); Mycoplasma Pneumoniae Not Detected (NOT DETECT); Parainfluenza Virus Type 1 Not Detected (NOT DETECT); Parainfluenza Virus Type 2 Not Detected (NOT DETECT); Parainfluenza Virus Type 3 Not Detected (NOT DETECT); Parainfluenza Virus Type 4 Not Detected (NOT DETECT); Respiratory Syncytial Virus A Not Detected (NOT DETECT); Respiratory Syncytial Virus B Not Detected (NOT DETECT); SARS-COV-2 Not Detected (NOT DETECT)
[2022-05-17] MEDS: acetaminophen 500 mg Tablet PO (19:33)
--- NOTE | 2022-05-17 20:05 | USCV_ITS ---
Elena Pulliam Age: 52 Gender: F : 1970 Exam Date: 05/17/2022 23:36 Ordering Phys: Shay Parks MD Technologist: VASQUEZ [place] [facility] [place]: Chest pain, SOB, History of pacer / defibrillator 2007, again 2017. BP: 128 / 71 HR: 98 Rhythm: Atrial fibrillation Technical Quality: Adequate MEASUREMENTS (Male / Female) Normal Values 2D ECHO LV Diastolic Diameter PLAX 5.6 cm 4.2 - 5.9 / 3.9 - 5.3 cm LV Systolic Diameter PLAX 5.0 cm IVS Diastolic Thickness 0.9 cm 0.6 - 1.0 / 0.6 - 0.9 cm IVS Systolic Thickness 1.3 cm LVPW Diastolic Thickness 1.1 cm 0.6 - 1.0 / 0.6 - 0.9 cm LVPW Systolic Thickness 1.8 cm LVOT Diameter 1.9 cm LV Ejection Fraction 2D Teich 22.4 % LV Ejection Fraction MOD 2C 23.7 % LV Ejection Fraction 2C AL 23.8 % LA Diameter 3.6 cm LA Width 3.3 cm LA Height 5.8 cm RA Width 2.5 cm RA Height 3.7 cm Aorta at Sinotubular Diameter 3.1 cm IVC Diameter 1.5 cm M-MODE Aortic Annulus Diameter 3.1 cm LA Ao Ratio MM 1.1 MV E Point Septal Separation 2.6 cm DOPPLER AV Peak Velocity 101.0 cm/s LVOT Peak Velocity 57.0 cm/s AV Area Cont Eq vti 1.5 cm squared AV Area Cont Eq pk 1.6 cm squared MV Area PHT 6.3 cm squared MV E' Velocity 67.5 cm/s Mitral E to MV E' Ratio 13.7 Mitral E to LV E' Lateral Ratio 14.0 Mitral E to LV E' Septal Ratio 13.4 TR Peak Velocity 295.0 cm/s TR Peak Gradient 34.8 mmHg TV Peak E Velocity 65.0 cm/s Right Atrial Pressure 5.0 mmHg Pulmonary Artery Systolic Pressu 39.8 mmHg PV Peak Velocity 83.0 cm/s RV Acceleration Time 0.1 s RV Ejection Time 0.3 s RV AcT/ET 0.3 FINDINGS Left Ventricle Moderately increased left ventricular cavity size. Severely decreased left ventricular systolic function. Left ventricular ejection fraction is estimated at 25 %. Severe global left ventricular hypokinesis. Right Ventricle Normal right ventricular size and systolic function. Right ventricular systolic pressure 43 mmHg. Right Atrium Normal right atrial size. Left Atrium Mildly increased left atrial size. Mitral Valve Structurally normal mitral valve. No mitral valve stenosis. Moderate-severe mitral valve regurgitation. Aortic Valve Structurally normal trileaflet aortic valve. No aortic valve stenosis. No aortic valve regurgitation. Tricuspid Valve Structurally normal tricuspid valve. No tricuspid valve stenosis. Mild tricuspid valve regurgitation. Pulmonic Valve Pulmonic valve not well visualized. No pulmonary valve stenosis. Trace pulmonary valve regurgitation. Pericardium No pericardial effusion. Aorta Normal size aortic root and proximal ascending aorta. IVC Normal IVC dimension with <50% respiratory change of the inferior vena cava. CONCLUSIONS 1. Moderately increased left ventricular cavity size. Severely decreased left ventricular systolic function. Left ventricular ejection fraction is estimated at 25 %. Severe global left ventricular hypokinesis. 2. Normal right ventricular size and systolic function. 3. Moderate-severe mitral valve regurgitation. 4. Pulmonary artery pressure estimated at 43 mm Hg. 5. When compared to study dated 11/30/2021, left ventrivular systolic function may have decreased from 30-35% to 25% now. Sil Pineda MD (Electronically Signed) Final Date: 18 May 2022 22:00 S
--- NOTE | 2022-05-17 20:06 | P.HP_ITS ---
Providers/Chief Complaint Primary Care Provider: Elena Gray MD Chief Complaint: CHEST PAIN History of Present Illness Elena Pulliam is a 52 year old female with a past medical history of systolic and diastolic CHF, recent hospitalization for hip fracture status post repair, history of not hemic cardiomyopathy, AICD in place, most recent echocardiogram shows EF of 40%, current smoker, hypertension, TIA, who presents [facility] for chest pain. Patient tells me that after hip replacement, she has been ambulating more, will be 2 weeks before she can stop using her cane, no calf pain, calf swelling, no sudden onset shortness of breath, hemoptysis. She is taking aspirin, she tells me that today she woke up with severe substernal chest pain with shortness of breath. Radiating to her back, no lightheadedness, no dizziness, no nausea, no vomiting, no diaphoresis. She has received aspirin on route, Nitropaste, fentanyl, continues to have low-grade chest pain, given nitro as needed however had headaches, improved chest pain with Dilaudid. Currently mild chest pain, alert oriented x3, following all commands, blood pressure 144/87, pulse 100, respiratory rate 20, saturating 93% room air, baseline troponin 12, 120-minute 11.96, BNP 4839, EKG no acute ST-T wave changes Review of Systems Const: Denies: fever(s), chills, fatigue or malaise Eyes: Denies: change in vision ENMT: Denies: nasal congestion Card: Reports: chest pain and dyspnea on exertion Resp: Reports: dyspnea GI: Denies: abdominal pain, nausea, vomiting, hematemesis, diarrhea, constipation, hematochezia or melena : Denies: dysuria Musc: Denies: back pain Neuro: Denies: headache(s), dizziness or vertigo Medications/Allergies Home Medications Medication Instructions Recorded Confirmed Last Taken Type citalopram 40 mg tablet (Celexa) 40 mg PO BEDTIME 01/31/20 04/14/22 03/24/22 22:00 History zolpidem 10 mg tablet 10 mg PO BEDTIME 01/31/20 04/14/22 03/24/22 22:00 History aspirin 81 mg tablet,delayed 162 mg PO QAM 01/20/21 04/14/22 03/25/22 History release (Adult Low Dose Aspirin) nitroglycerin 0.4 mg sublingual 0.4 mg sublingual Q5M PRN chest 01/20/21 04/14/22 Unknown Rx tablet (Nitrostat) pain #25 tabs ferrous sulfate 325 mg (65 mg 325 mg PO QAM 07/22/21 04/14/22 03/25/22 08:00 History iron) tablet cyanocobalamin (vitamin B-12) 50 50 mcg PO QAM 11/30/21 04/14/22 03/25/22 08:00 History mcg tablet (Vitamin B-12) levalbuterol tartrate 45 2 inh inhalation Q6H PRN Shortness 11/30/21 04/14/22 03/25/22 History mcg/actuation aerosol inhaler Of Breath lisinopril 20 mg tablet 20 mg PO BID 11/30/21 04/14/22 03/25/22 08:00 History montelukast 10 mg tablet 10 mg PO QAM 11/30/21 04/14/22 03/25/22 08:00 History carvedilol 25 mg tablet 25 mg PO BID #60 tabs 01/12/22 04/14/22 03/25/22 08:00 Rx spironolactone 25 mg tablet 12.5 mg PO DAILY 01/12/22 04/14/22 03/25/22 08:00 History furosemide 20 mg tablet (Lasix) 20 mg PO DAILY PRN Edema #0 tabs 03/29/22 04/14/22 Unknown Rx tizanidine 2 mg capsule 2 mg PO Q6H PRN muscle spasticity 03/29/22 04/14/22 Unknown Rx #20 caps hydrocodone 5 mg-acetaminophen 325 1 tab PO Q4H PRN pain 5 days #25 04/14/22 04/14/22 Unknown Rx mg tablet tabs Allergies Allergy/AdvReac Type Severity Reaction Status Date / Time egg Allergy unknown Verified 04/14/22 13:27 morphine Allergy Unknown Verified 04/14/22 13:27 Opioids - Morphine Analogues Allergy unknown Verified 04/14/22 13:27 PFSH Acute PFSH: Medical History CHF (congestive heart failure) Related to nonischemic cardiomyopathy, most recent ejection fraction with with EF 42%. History of recurrent UTIs History of TIA (transient ischemic attack) HTN (hypertension) ICD (implantable cardioverter-defibrillator) in place Mass of right lobe of liver ~3.5 x 4 cm, indeterminant, hypodense, first noted 11/2021 Nonischemic cardiomyopathy Specific etiology unknown, may have been viral or related to uncontrolled hypertension from her recollection Echocardiogram November 2021 with ejection fraction of 42% Obstructive pyelonephritis (~11/2021) Renal stones Ureteral calculus Surgical History S/P ureteral stent placement (~11/2021) Status post cholecystectomy Status post placement of cardiac pacemaker Family History Father , AT AGE 77 CAD (coronary artery disease) Cancer lung cancer Mother , AT AGE 60 Cancer OVARIAN Denies family history of Clotting disorder Anesthesia complication Bleeding disorder Social History Smoking and tobacco status: current every day smoker cigarettes Packs smoked per day: 0.5 Years cigarettes smoked: 45 Second hand smoke exposure: Yes Alcohol intake: current Lives independently: Yes Marital status: service: No Current occupational status: disabled Current gender identity: Female Vitals/I&O/Wt Last Vital Signs Temp 98.9 F 05/17/22 14:53 Pulse 100 05/17/22 18:30 Resp 30 H 05/17/22 18:30 BP 144/87 05/17/22 18:30 Pulse Ox 93 05/17/22 18:30 O2 Del Method Nasal Cannula 05/17/22 14:53 Weight last 48 hrs Weight 74.843 kg Physical Exam Const: COMMON NORMALS: no acute distress and patient oriented x3 HENMT: COMMON NORMALS: normocephalic HEAD & SCALP: normocephalic Eye: COMMON NORMALS: Equal, round and reactive pupils present and EOMs intact bilaterally Neck/C-Spine: COMMON NORMALS: no JVD Resp: COMMON NORMALS: normal respiratory effort, No retractions, No use of accessory muscles and clear to auscultation bilaterally AUSCULTATION: clear to auscultation bilaterally Cardio: COMMON NORMALS: no JVD, regular rate, regular rhythm, S1 normal heart sound present and S2 normal heart sound present RATE: regular rate RHYTHM: regular rhythm HEART SOUNDS: S1 normal heart sound present and S2 normal heart sound present GI: COMMON NORMALS: Normal to inspection, nondistended, normoactive bowel sounds present, Soft to palpation, non-tender, No hepatosplenomegaly present, no masses and no bruits PALPATION: Yes Soft to palpation and Yes No hepatosplenomegaly present Extremity: COMMON NORMALS: capillary refill normal, no clubbing, cyanosis or edema, no calf tenderness and no pedal edema Neuro: COMMON NORMALS: patient oriented x3, CN's II-XII intact bilaterally, moves all extremities and no focal motor deficits Psych: COMMON NORMALS: mental status grossly normal Data : 05/17/22 15:08 05/17/22 15:08 A&P Assessment and plan (1) Chest pain: Status: Acute (2) HTN (hypertension): Status: Chronic Qualifiers: Hypertension type: essential hypertension Qualified Code(s): I10 - Essential (primary) hypertension (3) ICD (implantable cardioverter-defibrillator) in place: Status: Chronic (4) Nonischemic cardiomyopathy: Status: Chronic (5) Mass of right lobe of liver: Status: Chronic Plan Chest pain -Serial EKGs, serial troponins -Telemetry monitoring -Monitor for worsening chest pain, Dilaudid as needed -Cannot tolerate nitro due to rebound headaches -Cardiac echo -N.p.o. 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
--- NOTE | 2022-05-17 20:07 | USCV_ITS ---
Elena Pulliam Age: 52 Gender: F : 1970 Exam Date: 05/17/2022 23:05 Ordering Phys: Shay Parks MD Technologist: VASQUEZ [place] [facility] [place]: CP, SOB, No history of DVT per patient. HISTORY: CP, SOB, No history of DVT per patient. PROCEDURES: Venous duplex imaging was performed in bilateral lower extremities. The venous duplex Doppler examination of both lower extremities was performed in the standard fashion. The following venous structures were evaluated: common femoral vein, profunda vein, proximal portion of the greater saphenous vein, superficial femoral vein, and the popliteal vein. FINDINGS: Normal 2-D Doppler and augmentation and compressibility throughout the lower extremity venous structures. Additional imaging through the proximal calf veins also reveals no thrombus. Limited evaluation of the greater saphenous vein is patent with no thrombus. CONCLUSIONS No DVT bilateral lower extremities. Dr. Sallie Ohara DO (Electronically Signed) Final Date: 18 May 2022 07:43 S
--- NOTE | 2022-05-17 21:15 | ECG_ITS ---
[facility] Test Date: 2022-05-17 Pat Name: Elena Pulliam Department: Room: 273 Gender: Female Park Naturalist: : 1970 Requested By: Amy Mckay Order Number: [id number] Arlette MD: Pola Ferrera M.D. Measurements Intervals [place] Rate: 97 P: 64 MI: 128 QRS: -52 QRSD: 130 T: 53 QT: 317 QTc: 404 Interpretive Statements SINUS RHYTHM LEFT AXIS DEVIATION [QRS AXIS < -30] MODERATE INTRAVENTRICULAR CONDUCTION DELAY [105+ ms QRS DURATION, 80+ ms Q/S IN V1/V2, NO Q AND 60+ ms R IN I/aVL/V5/V6] NONSPECIFIC T-WAVE ABNORMALITY Compared to ECG 05/17/2022 16:48:52 T-wave abnormality now present Prolonged QT interval no longer present Electronically Signed On 05-17-2022 23:33:15 CDT by Pola Ferrera M.D. [id number]
[2022-05-17 21:55] LABS: Troponin 5 6HR 13.59 ng/L (0-10)
[2022-05-17 21:59] LABS: Troponin 5 6HR Delta 1.59 ng/L (0-12)
--- NOTE | 2022-05-17 22:26 | ECG_ITS ---
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 Interpretive Statements NAME OF STUDY: LEXISCAN SESTAMIBI STRESS TEST INDICATION: Chest Pain PROCEDURE: At the baseline, the blood pressure was 139/89 mmHg with a heart rate of 100 bpm. The electrocardiogram showed sinus rhythm, left axis deviation. Intraventricular conduction delay (left bundle branch block like morphology). The Lexiscan was infused over a period of 20 seconds. A total of 0.4 milligrams of Lexiscan was infused. The stress phase was continued for a total of 5 minutes. Heart rate at the end of the stress phase was 106 bpm with a blood pressure of 131/76 mmHg. The EKG at the peak infusion revealed no significant ST-T wave changes. The study was terminated due to protocol completion. Sestamibi was injected 20 seconds after the Lexiscan infusion. Blood pressure at the end of the recovery phase was 136/80 mmHg with a heart rate of 106 beats per minute. CONCLUSION: 1. Nondiagnostic EKG with the LexiScan infusion d/t intraventricular conduction delay (left bundle branch block like morphology). 2. No LexiScan induced chest pain or cardiac arrhythmia. 3. Normal blood pressure and heart rate response. 4. Sestamibi/sestamibi perfusion scan pending; see separate report. Electronically Signed On 05-20-2022 13:03:32 CDT by Sil Pineda M.D. [id number]
[2022-05-17] MEDS: enoxaparin 40 mg/0.4 mL Syringe SUBCUT (22:55)
[2022-05-17] MEDS: zolpidem 5 mg Tablet 10 MG PO (22:55)
--- NOTE | 2022-05-17 23:05 | PC.NURSE ---
ADMIT Pt was received to floor from ER at 2220. Alert and oriented. Reports substernal chest pain today with radiation through to her back. Denies any other radiation. Says still some present despite several pain meds in the ER. Also c/o headache for which I am giving some Tylenol.. RN is going to give some IV Dilaudid. Also receiving IV Lasix dose. Instructed on need to monitor I&O. Does tell me she has been more SOB lately than her normal. Dry cough. Order for stress test in the am and aware of NPO after midnight except for water and says no caffeine today. coding quality analyst placed and is showing ST. HR 101. RN completing admission assessment
[2022-05-17] MEDS: acetaminophen 325 mg Tablet 650 MG PO (23:10)
[2022-05-17] MEDS: FUROsemide 10 mg/mL SDV 4mL 40 MG IVP (23:10)
--- NOTE | 2022-05-17 23:37 | ECG_ITS ---
[facility] Test Date: 2022-05-17 Pat Name: Elena Pulliam Department: Room: 273 Gender: Female Financial Compliance Officer: : 1970 Requested By: Shay Parks Order Number: [id number] Arlette MD: Sil Pineda M.D. Measurements Intervals [place] Rate: 109 P: 70 SC: 146 QRS: -50 QRSD: 128 T: 70 QT: 381 QTc: 515 Interpretive Statements SINUS TACHYCARDIA LEFT AXIS DEVIATION [QRS AXIS < -30] MODERATE INTRAVENTRICULAR CONDUCTION DELAY NONSPECIFIC ST ELEVATION Compared to ECG 05/17/2022 21:15:45 ST (T wave) deviation now present Sinus rhythm no longer present T-wave abnormality no longer present Electronically Signed On 05-19-2022 18:52:35 CDT by Sil Pineda M.D. [id number]
[2022-05-17] MEDS: nitroglycerin 0.4 mg sublingual Tablet SUBLINGUAL ×3 (23:38→23:49)
--- NOTE | 2022-05-17 23:59 | PC.NURSE ---
CHEST PAIN EPISODE Called to room by tech doing bedside echo stating pt was clutching her chest and c/o pain. On entering room pt was clutching her chest and crying. c/o severe substernal pain going through to her back. Describes as a stabbing pain and says it was like she was having at home. Was given NTG 0.4mg SL X3 with pain easing to a 5 and no longer was crying & clutching her chest. Did apply O2 at 2l per NC. EKG was done with no changes seen. Dr Parks was notified and gave order for a dose of IV Dilaudid to be given.
[2022-05-18] VITALS (13 sets, daily range): BP systolic 88–136; BP diastolic 53–80; PULSE 71–105; RESP 16–22; TEMP 36.8–37.4; O2SAT 88–95
[2022-05-18] MEDS: HYDROmorphone 1 mg/mL INJ 1 mL IVP (00:25)
[2022-05-18 05:51] LABS: Basophils # 0.1 10^3/uL (0.0-0.1); Basophils % 0.9 %; Eosinophils # 0.1 10^3/uL (0.0-0.8); Eosinophils % 1.9 %; Hematocrit 33.4 % (37.0-47.0); Hemoglobin 10.7 g/dL (11.5-15.3); Lymphocytes # 2.2 10^3/uL (0.8-4.8); Mean Corpuscular Hemoglobin 34.2 pg (28.0-34.0); Mean Corpuscular Volume 106.7 fl (81-99); Mean Platelet Volume 10.9 fL (7.4-10.4); Monocytes # 0.5 10^3/uL (0.2-0.9); Monocytes % 7.9 %; Neutrophils # 3.85 10^3/uL (1.8-7.7); Nucleated Red Blood Cells % 0 %; Platelet Count 164 10^3/cmm (130-400); Red Blood Count 3.13 10^6/uL (4.1-5.3); White Blood Count 6.8 10^3/uL (4.0-10.0)
[2022-05-18 06:02] LABS: INR 1.07 (0.8-1.2)
[2022-05-18] MEDS: aspirin 81 mg EC Tablet 162 MG PO (06:03)
[2022-05-18] MEDS: montelukast sodium 10 mg Tablet PO (06:04)
[2022-05-18] MEDS: ferrous sulfate EC 325 mg Tablet PO (06:04)
[2022-05-18 06:28] LABS: Estmated Average Glucose 74; Hemoglobin A1C 4.2 % (4.0-6.0)
[2022-05-18 06:30] LABS: Alanine Aminotransferase 16 U/L (0-33); Albumin Level 4.1 g/dL (3.5-5.2); Alkaline Phosphatase 119 IU/L (35-105); Anion Gap 12.8 (5-19); Aspartate Amino Transferase 21 U/L (0-32); Blood Urea Nitrogen 17 mg/dL (6-20); Calcium 8.8 mg/dL (8.5-10.5); Carbon Dioxide 27 mmol/L (22-29); Chloride 105 mmol/L (98-107); Chol HDL Ratio 4.34 mg/dL (0.0-4.40); Cholesterol 152 mg/dL (0-200); Globulin 2.4 g/dL (1.3-4.6); Glomerular Filtration Rate 52.2 mL/min (90-130); Glucose 87 mg/dL (65-115); HDL Cholesterol 35 mg/dL (60-100); LDL Cholesterol Calculated 85 mg/dL (50-129); LDL HDL Ratio 2.43 RATIO (0.00-3.22); NT Pro B Type Natriuretic Pept 4898 pg/mL (0-125); Osmolality Calculated 293 mOsm/kg (285-295); Phosphorus 3.4 mg/dL (2.5-4.5); Potassium 3.8 mmol/L (3.5-5.1); Sodium 141 mmol/L (136-145); Total Bilirubin 0.5 mg/dL (0.15-1.2); Total Protein 6.5 g/dL (6.6-8.7); Triglycerides 160 mg/dL (0-150)
[2022-05-18] MEDS: regadenoson 0.4 Mg/5 ml Syringe IVP (07:18)
[2022-05-18] MEDS: lisinopril 20 mg Tablet PO (08:55)
[2022-05-18] MEDS: pantoprazole DR 40 mg Tablet PO (08:55)
[2022-05-18] MEDS: spironolactone 25 mg Tablet 12.5 MG PO (08:55)
[2022-05-18] MEDS: carvedilol 25 mg Tablet PO (08:55)
[2022-05-18] MEDS: FUROsemide 10 mg/mL SDV 4mL 40 MG IVP ×2 (08:55→22:54)
[2022-05-18] MEDS: tizanidine 4 mg Tablet 2 MG PO ×2 (08:56→20:25)
--- NOTE | 2022-05-18 11:33 | PC.PHAR ---
pt states she takes care of her own medications-pt states still taking carvedilol 25mg bid filed 01/12/22 30d/s-lisinopril 20mg hs last filled 11/03/21 90d/s for 20mg bid-spironolactone 12.5mg qam filled 11/08/21 60d/s-montelukast 10mg qam filled 10/08 90d/s-pt states takes flomax 0.4mg daily prn for kidney stones-notes are made in the pharmacy comments
--- NOTE | 2022-05-18 11:40 | PC.CHAP ---
Pastoral Care Encounter/Spiritual Assessment Type of Contact [] Declined psychotherapist visit [] Patient/Family/Request visit [] Outpatient visit [] Follow-up visit [] Physician referral [] Code/Alert [x] Routine visit [] Staff referral [] Actively dying [] Patient sleeping [] Family support [] [] Out of room [] Palliative care [] [] Receiving care in room [] Pre-surgical visit [] Trauma [] Long length of stay [] ICU visit [] Other: Relational/Emotional Strength [x] Patient feels connected with others/family/visitors/staff [] Distress [] Loneliness/isolation [] Abandonment Spirituality of Patient [x] Person of Capri [] Attends Temple of their Capri [x] Believes in Prayer [] Reads Bible or Worship materials [] There are Spiritual issues to be addressed Monotype Operator Interventions [x] Prayer [x] Active listening [] Non-anxious presence [] Spiritual/emotional support [] Crisis/trauma care [] Spiritual counseling [] Bereavement support [] Provided bereavement packet [] Provided Bible/devotional materials [] Provided toy/stuffed animal, coloring book to patient or family member [] Provided Communion [] Anointing/Diana [] Salvation [x] Completed spiritual assessment [] Other: Impact on Illness or Injury [] Angry [] Fearful [] Anxious [] Often cries [] Exhaustion [] Unable to work [] Unable to attend protestant [] Unable to walk/stand [] Unable to read [] Unable to drive [] Unable to eat/drink [] Unable to sleep [] Unable to be with family [] Patient intubated [] Other: Summary Time spent with patient 10 min
--- NOTE | 2022-05-18 16:12 | P.PN_ITS ---
Subjective Subjective: Patient continues to complain of ongoing chest pain. Located in the center of her chest. She states this is not adequately relieved by sublingual nitro. The latter is somewhat limited because of her blood pressure ranging between 80-90 systolic. Currently on IV Lasix with urine output of 1300 mL since admission. Her stress test was completed this morning and returned with Large sized fixed perfusion abnormality of entire inferior, basal to apical ?inferolateral, basal to apical septal and apical apical bowles. 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 The left ventricular ejection fraction is markedly reduced with a value of 24%. Severe global hypokinesis. Medications: Reviewed: Yes Vitals/I&O/Wt Last Vital Signs Temp 98.4 F 05/18/22 15:21 Pulse 71 05/18/22 15:21 Resp 16 05/18/22 15:21 BP 97/60 05/18/22 15:21 Pulse Ox 91 05/18/22 15:21 O2 Del Method 05/18/22 15:21 O2 Flow Rate 2 05/17/22 23:53 05/18/22 05/18/22 05/18/22 06:59 14:59 22:59 Intake Total 1160 / 1160 0 / 0 Output Total 1350 / 1350 Balance -190 / -190 0 / 0 Weight last 48 hrs Weight 77.309 kg Weight 74.843 kg Physical Exam Narrative: General: No acute distress, AO x3 HEENT: PERRLA, pupils bilaterally equal and reactive, pallors not present Chest: Normal vesicular breath sounds, no added sounds, equal good air entry bilaterally CVS: S1-S2 regular, no murmurs, no tachycardia, no gallops, no rubs Abdomen: Soft, nontender, no organomegaly, bowel sounds present Neuro: No focal deficits, no facial deformity, AO x3, power 5/5 in all limbs Data : 05/19/22 05:04 05/19/22 05:04 Other Labs: Cardiac Enzymes 05/18/22 Range/Units 05:37 AST 21 (0-32) U/L Coagulation 05/18/22 Range/Units 05:37 PT 14.20 (12.1-14.9) SECONDS Lipids 05/18/22 Range/Units 05:37 Triglycerides 160 H (0-150) mg/dL Cholesterol 152 (0-200) mg/dL HDL Cholesterol 35 L (60-100) mg/dL LDL/HDL Ratio 2.43 (0.00-3.22) RATIO Cholesterol/HDL Ratio 4.34 (0.0-4.40) mg/dL CBC 05/18/22 Range/Units 05:37 WBC 6.8 (4.0-10.0) 10^3/uL RBC 3.13 L (4.1-5.3) 10^6/uL Hgb 10.7 L (11.5-15.3) g/dL Hct 33.4 L (37.0-47.0) % Plt Count 164 (130-400) 10^3/cmm Neut # (Auto) 3.85 (1.8-7.7) 10^3/uL Lymph # (Auto) 2.2 (0.8-4.8) 10^3/uL [place] # (Auto) 0.5 (0.2-0.9) 10^3/uL Eos # (Auto) 0.1 (0.0-0.8) 10^3/uL Baso # (Auto) 0.1 (0.0-0.1) 10^3/uL Comprehensive Metabolic Panel 05/18/22 Range/Units 05:37 Sodium 141 (136-145) mmol/L Potassium 3.8 (3.5-5.1) mmol/L Chloride 105 (98-107) mmol/L Carbon Dioxide 27 (22-29) mmol/L BUN 17 (6-20) mg/dL Creatinine 1.1 H (0.5-0.9) mg/dL Glucose 87 (65-115) mg/dL Calcium 8.8 (8.5-10.5) mg/dL AST 21 (0-32) U/L ALT 16 (0-33) U/L Alkaline Phosphatase 119 H (35-105) IU/L Total Protein 6.5 L (6.6-8.7) g/dL Albumin 4.1 (3.5-5.2) g/dL Intake and Output 05/18/22 05/18/22 05/18/22 06:59 14:59 22:59 Intake Total 1160 / 1160 0 / 0 Output Total 1350 / 1350 Balance -190 / -190 0 / 0 Intake: Oral 1160 / 1160 0 / 0 Output: Urine 1350 / 1350 Other: # Voids 2 ? IMPRESSIONS ?1. Large sized fixed perfusion abnormality of entire inferior, basal to apical ?inferolateral, basal to apical septal and apical apical bowles. ?2. 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 ?3. The left ventricular ejection fraction is markedly reduced with a value of ?24%. ?4. Severe global hypokinesis. ?5.? EKG portion of the study will be reported separately. ?6.? No significant coronary ischemia based on the study. A&P Assessment and plan (1) Chest pain: Status: Acute (2) Abnormal stress test: Status: Acute (3) HTN (hypertension): Status: Chronic Qualifiers: Hypertension type: essential hypertension Qualified Code(s): I10 - Essential (primary) hypertension (4) ICD (implantable cardioverter-defibrillator) in place: Status: Chronic (5) Nonischemic cardiomyopathy: Status: Chronic (6) Mass of right lobe of liver: Status: Chronic Plan Chest pain -Abnormal stress test this morning, will consult cardiology. Shortness of breath, chest pain -Likely a component of acute on chronic systolic and diastolic CHF -Elevated BNP -Lasix 40 IV twice daily -Cardiac echo -D-dimer within normal limits, low probability of pulmonary embolism, negative LE duplex CHF, as above History of TIA as above History of ICD as above Hypertension continue home meds Attestations Medical Necessity Statement*: Abnormal stress test earlier today, cardiology consultation. Coding Level of Care Code Acute Windows Infrastructure Engineer for Wesley Herrera Diagnoses Chest pain R07.9 Abnormal stress test R94.39 HTN (hypertension) I10 Hypertension type: essential hypertension ICD (implantable cardioverter-defibrillator) in place Z95.810 Nonischemic cardiomyopathy I42.8 Mass of right lobe of liver R16.0
--- NOTE | 2022-05-18 18:20 | P.CONIM_ITS ---
Providers/Reason For Consult Consulting Physician/Specialty*: Dr. Pineda, Cardiology Reason for Consult*: Chest pain, CHF Attending Physician: Beryl Dejesus MD Primary Care Provider: Elena Gray MD History of Present Illness History of Present Illness 52 yo woman with PMHx of CHF, h/o nonischemic cardiomyopathy,? status post ICD placement in 2007 and gen change 04/2018 (no ICD shocks), hypertension and h/o recurrent renal stones. In 08/2008 she had first ICD at age 38.? Brother with h/o CABG x 4 in his early 60's. Father with heart problems. She has had two prior cardiac caths w/o any intervention and stress test about 3 years ago with no reversible ischemia. She had recent hospitalization for hip fracture status post repair. She was discharged home in March and she was doing well until recently. She complains of orthopnea, exertional SOB that started and progressed ovre last week f/b chest tightness. She usually takes lasix 10 mg PRN at home with aldactone but was not using it lately. She also used to be on ISMN (tolerated w/o s/e) but somehow has not been on it for quite sometime. She received aspirin on route, Nitropaste, fentanyl. Baseline troponin 12, 120- minute 11.96, BNP 4839 <--588 (back in 03/2022), EKG with sinus rhythm, LAD and IVCD. no acute ST-T wave changes. She feels much better now after being started on lasix IV. At the time of exam, she is complaining of headache. She had stress test today that did not show any ischemia. Review of Systems Const: Denies: fatigue Eyes: Denies: change in vision ENMT: Denies: throat pain, bleeding gums or epistaxis Card: Reports: chest pain, dyspnea on exertion and orthopnea; Denies: palpitations, irregular heart rhythm, edema, swelling of feet/ankles, lightheadedness, syncope or pre-syncope Resp: Reports: dyspnea; Denies: productive cough or non-productive cough GI: Denies: abdominal pain, nausea, vomiting, hematemesis, diarrhea, constipation or hematochezia : Denies: dysuria or hematuria Musc: Denies: back pain, extremity swelling, joint pain or muscle weakness Skin/Breast: Denies: rash Neuro: Reports: headache(s); Denies: dizziness Psych: Denies: anxiety or depression Endo: Denies: tired all the time Cedric/Lymph: Denies: easy bruising or easy bleeding Medications/Allergies Home Medications Medication Instructions Recorded Confirmed Last Taken Type citalopram 40 mg tablet (Celexa) 40 mg PO QAM 01/31/20 05/18/22 03/24/22 22:00 History zolpidem 10 mg tablet 10 mg PO BEDTIME 01/31/20 05/18/22 03/24/22 22:00 History aspirin 81 mg tablet,delayed 162 mg PO QAM 01/20/21 05/18/22 2 Weeks Ago History release (Adult Low Dose Aspirin) ~05/04/22 nitroglycerin 0.4 mg sublingual 0.4 mg sublingual Q5M PRN chest 01/20/21 05/18/22 Unknown Rx tablet (Nitrostat) pain #25 tabs ferrous sulfate 325 mg (65 mg 325 mg PO QAM 07/22/21 05/18/22 03/25/22 08:00 History iron) tablet cyanocobalamin (vitamin B-12) 50 50 mcg PO QAM 11/30/21 05/18/22 03/25/22 08:00 History mcg tablet (Vitamin B-12) levalbuterol tartrate 45 2 inh inhalation Q6H PRN Shortness 11/30/21 05/18/22 03/25/22 History mcg/actuation aerosol inhaler Of Breath lisinopril 20 mg tablet 20 mg PO BEDTIME 11/30/21 05/18/22 03/25/22 08:00 History montelukast 10 mg tablet 10 mg PO QAM 11/30/21 05/18/22 03/25/22 08:00 History carvedilol 25 mg tablet 25 mg PO BID #60 tabs 01/12/22 05/18/22 03/25/22 08:00 Rx spironolactone 25 mg tablet 12.5 mg PO QAM 01/12/22 05/18/22 03/25/22 08:00 History tamsulosin 0.4 mg capsule (Flomax) 0.4 mg PO BEDTIME PRN kidney stones 05/18/22 05/18/22 Unknown History Allergies Allergy/AdvReac Type Severity Reaction Status Date / Time egg Allergy unknown Verified 05/18/22 11:25 morphine Allergy Unknown Verified 05/18/22 11:25 Opioids - Morphine Analogues Allergy unknown Verified 05/18/22 11:25 Current Medications Generic Name Dose Route Start Last Admin Trade Name Freq PRN Reason Stop Dose Admin Acetaminophen 650 mg 05/17/22 22:26 05/17/22 23:10 Acetaminophen 325 Mg Tablet PO 650 mg Q6H PRN Administration Mild/Mod Pain Or Temp >/= 101 Aspirin 162 mg 05/18/22 06:00 05/18/22 06:03 Aspirin 81 Mg Ec Tablet PO 162 mg QAM AURE Administration Enoxaparin Sodium 40 mg 05/17/22 22:26 05/17/22 22:55 Enoxaparin 40 Mg/0.4 Ml Syringe SUBCUT 40 mg Q24H AURE Administration Ferrous Sulfate 325 mg 05/18/22 06:00 05/18/22 06:04 Ferrous Sulfate Ec 325 Mg Tablet PO 325 mg QAM AURE Administration Furosemide 40 mg 05/17/22 22:45 05/18/22 08:55 Furosemide 10 Mg/Ml Sdv 4ml IVP 40 mg Q12H AURE Administration Hydromorphone HCl 0.5 mg 05/17/22 22:26 05/17/22 23:10 Hydromorphone 1 Mg/Ml Inj 1 Ml IVP 0.5 mg Q4H PRN Administration chest pain/pain Lisinopril 20 mg 05/18/22 09:00 05/18/22 08:55 Lisinopril 20 Mg Tablet PO 20 mg BID AURE Administration Montelukast Sodium 10 mg 05/18/22 06:00 05/18/22 06:04 Montelukast Sodium 10 Mg Tablet PO 10 mg QAM AURE Administration Nitroglycerin 0.4 mg 05/17/22 22:26 05/17/22 23:49 Nitroglycerin 0.4 Mg Sublingual Tablet SUBLINGUAL 0.4 mg Q5M PRN Administration chest pain Non-Formulary Medication 50 mcg 05/18/22 06:00 05/18/22 06:04 Cyanocobalamin (Vitamin B-12) [Vitamin B-12] PO Not [facility] Pantoprazole Sodium 40 mg 05/18/22 09:00 05/18/22 08:[address] 40 Mg Tablet PO 40 mg DAILY AURE Administration Spironolactone 12.5 mg 05/18/22 09:00 05/18/22 08:55 Spironolactone 25 Mg Tablet PO 12.5 mg DAILY AURE Administration Tizanidine HCl 2 mg 05/17/22 22:37 05/18/22 08:56 Tizanidine 4 Mg Tablet PO 2 mg Q6H PRN Administration muscle spasticity Zolpidem Tartrate 10 mg 05/17/22 22:45 05/17/22 22:55 Zolpidem 5 Mg Tablet PO 10 mg BEDTIME AURE Administration PFSH Acute PFSH: Medical History CHF (congestive heart failure) Related to nonischemic cardiomyopathy, most recent ejection fraction with with EF 42%. History of recurrent UTIs History of TIA (transient ischemic attack) HTN (hypertension) ICD (implantable cardioverter-defibrillator) in place Mass of right lobe of liver ~3.5 x 4 cm, indeterminant, hypodense, first noted 11/2021 Nonischemic cardiomyopathy Specific etiology unknown, may have been viral or related to uncontrolled hypertension from her recollection Echocardiogram November 2021 with ejection fraction of 42% Obstructive pyelonephritis (~11/2021) Renal stones Ureteral calculus Surgical History S/P ureteral stent placement (~11/2021) Status post cholecystectomy Status post placement of cardiac pacemaker Family History Father , AT AGE 77 CAD (coronary artery disease) Cancer lung cancer Mother , AT AGE 60 Cancer OVARIAN Denies family history of Clotting disorder Anesthesia complication Bleeding disorder Social History Smoking and tobacco status: current every day smoker cigarettes Packs smoked per day: 0.5 Years cigarettes smoked: 45 Second hand smoke exposure: Yes Alcohol intake: current Lives independently: Yes Marital status: service: No Current occupational status: disabled Current gender identity: Female Vitals/I&O/Wt Last Vital Signs Temp 98.4 F 05/18/22 15:21 Pulse 71 05/18/22 15:21 Resp 16 05/18/22 15:21 BP 97/60 05/18/22 15:21 Pulse Ox 91 05/18/22 15:21 O2 Del Method 05/18/22 15:21 O2 Flow Rate 2 05/17/22 23:53 05/18/22 05/18/22 05/18/22 06:59 14:59 22:59 Intake Total 1160 / 1160 0 / 0 480 / 480 Output Total 1350 / 1350 Balance -190 / -190 0 / 0 480 / 480 Weight last 48 hrs Weight 170 lb 7 oz Weight 165 lb Physical Exam Narrative: Gen: NAD, obese woman laying in bed NeCK: No JVD appreciated HEENT: No pallor, EOMI, No lymphadenopathy RS: CTAB/L except at right base with fine crakles CVS: S1, S2, regular; No murmur, rub or gallop EXt: No edemal, cyanosis or clubbing Data : 05/19/22 05:04 05/19/22 05:04 Other data: Lexiscan sestamibi MPI (05/18/22) IMPRESSIONS ?1. Large sized fixed perfusion abnormality of entire inferior, basal to apical ?inferolateral, basal to apical septal and apical apical bowles. ?2. 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 ?3. The left ventricular ejection fraction is markedly reduced with a value of ?24%. ?4. Severe global hypokinesis. ?5.? EKG portion of the study will be reported separately. ?6.? No significant coronary ischemia based on the study. TTE (05/19/22) CONCLUSIONS ?1. Moderately increased left ventricular cavity size. Severely ?decreased left ventricular systolic function. Left ventricular ?ejection fraction is estimated at 25 %. Severe global left ?ventricular hypokinesis. ?2. Normal right ventricular size and systolic function. ?3. Moderate-severe mitral valve regurgitation. ?4. Pulmonary artery pressure estimated at 43 mm Hg. ?5. When compared to study dated 11/30/2021, left ventrivular ?systolic function may have decreased from 30-35% to 25% now. A&P Assessment and plan (1) Chest pain: likely in setting of decompensated CHF -patient also has h/o chest pains inspite of known NICM -she has not been on her home dose of ISMN for > 1 month now. -plan to resume that on discharge Status: Acute (2) Nonischemic cardiomyopathy: HFrEF Mild decrease in LV systolic function from 30-35% on last echo to 25% now. -No ischemia on stress test -No indication for LHC presently -will transition to PO lasix in morning Status: Chronic (3) ICD (implantable cardioverter-defibrillator) in place: (03/01/22): Single chamber Medtronic ICD set at VVI 40;? 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 No episodes of VT/VF/AFib, battery 8.5 years. Status: Chronic Plan Moderate to severe MR: Will consider ELIZA to assess MR better H/o HTN: BP soft here ; -3L after diuresis Recent hip sx Overweight Thank you for allowing me to participate in patient's care. Please feel free to call with questions or concerns. Coding Level of Care Code Acute Rack Production Worker for Wesley Herrera Diagnoses Chest pain R07.9 Nonischemic cardiomyopathy I42.8 ICD (implantable cardioverter-defibrillator) in place Z95.810
[2022-05-18] MEDS: acetaminophen 325 mg Tablet 650 MG PO (19:27)
[2022-05-18] MEDS: carvedilol 12.5 mg Tablet PO (20:22)
[2022-05-18] MEDS: zolpidem 5 mg Tablet 10 MG PO (20:22)
[2022-05-18] MEDS: citalopram 20 mg Tablet 40 MG PO (20:22)
[2022-05-18] MEDS: HYDROmorphone 1 mg/mL INJ 1 mL 0.5 MG IVP (21:55)
[2022-05-18] MEDS: enoxaparin 40 mg/0.4 mL Syringe SUBCUT (22:21)
--- NOTE | 2022-05-18 22:26 | NMCV_ITS ---
NM tushar perf SPECT r/s* [id number] Elena Pulliam Age: 52 Gender: F : 1970 Exam Date: 05/18/2022 06:39 Ordering Phys: Shay Parks MD Technologist: MARILYN Triplett Exam [facility]: [facility] Indications: CHEST PAIN STRESS TEST Please see separate stress test report in [facility] for full findings IMAGE PROTOCOL Rest/Stress 1 Lexiscan Day Radiopharmaceutical Dose (mCi) Administration Site Administered by Rest: Tc-99m 10.6 IV MARILYN Ayala Sestamibi Stress:Tc-99m 32.8 IV MARILYN Ayala Sestamibi Rest: 18-May-2022 60 Discovery 630 Stress: 18-May-2022 30 Discovery 630 0.4mg Lexiscan. Supine position only as patient was unable to lay prone. SPECT RESULTS Technical Quality: Excellent Raw Data Analysis: Normal Image Corrections: No attenuation or motion correction applied Summed Stress Score: 21 Summed Rest Score: 20 Summed Difference Score: 2 PERFUSION FINDINGS Large sized perfusion abnormality of moderate to severe severity of entire inferior, basal to apical inferolateral, basal to mid anteroseptal, apical septal and apical anterior bowles on rest images with subtle reversibility in mid inferolateral wall on stress images. FUNCTIONAL RESULTS (calculated via Gated SPECT) Stress Image LV EF (%): 24 Stress EDV (mL):245 TID: 0.98 Stress ESV (mL):186 FUNCTIONAL FINDINGS: The left ventricle is dilated. Transient Ischemia Dilatation of 0.98. The left ventricular ejection fraction is markedly reduced with a value of 24%. Severe global hypokinesis. Markedly increased end-diastolic end-systolic volumes. IMPRESSIONS 1. Large sized fixed perfusion abnormality of entire inferior, basal to apical inferolateral, basal to apical septal and apical apical bowles. 2. This is suggestive of old myocardial infarction in right coronary artery/LAD artery territory with no significant soren-infarct ischemia. 3. The left ventricular ejection fraction is markedly reduced with a value of 24%. 4. Severe global hypokinesis. 5. EKG portion of the study will be reported separately. 6. No significant coronary ischemia based on the study. Sil Pineda MD (Electronically Signed) Final Date: 18 May 2022 13:23 S
[2022-05-19] VITALS (11 sets, daily range): BP systolic 89–128; BP diastolic 53–74; PULSE 66–87; RESP 12–20; TEMP 36.4–37.6; O2SAT 91–98
[2022-05-19 05:13] LABS: Basophils # 0.1 10^3/uL (0.0-0.1); Basophils % 0.8 %; Eosinophils # 0.2 10^3/uL (0.0-0.8); Eosinophils % 2.5 %; Hematocrit 34.6 % (37.0-47.0); Hemoglobin 11.2 g/dL (11.5-15.3); Mean Corpuscular HGB Conc 32.4 g/dL (30.0-36.0); Mean Corpuscular Hemoglobin 34.1 pg (28.0-34.0); Mean Corpuscular Volume 105.5 fl (81-99); Mean Platelet Volume 10.8 fL (7.4-10.4); Monocytes # 0.4 10^3/uL (0.2-0.9); Neutrophils # 3.66 10^3/uL (1.8-7.7); Neutrophils % 58.2 %; Nucleated Red Blood Cells % 0 %; Platelet Count 177 10^3/cmm (130-400); Red Blood Count 3.28 10^6/uL (4.1-5.3); Red Cell Distribution Width 12.9 % (12.1-15.1); White Blood Count 6.3 10^3/uL (4.0-10.0)
[2022-05-19] MEDS: montelukast sodium 10 mg Tablet PO (05:15)
[2022-05-19] MEDS: aspirin 81 mg EC Tablet 162 MG PO (05:15)
[2022-05-19] MEDS: ferrous sulfate EC 325 mg Tablet PO (05:16)
[2022-05-19 05:25] LABS: INR 0.99 (0.8-1.2)
[2022-05-19 05:42] LABS: Alanine Aminotransferase 14 U/L (0-33); Alkaline Phosphatase 122 IU/L (35-105); Anion Gap 13.6 (5-19); Aspartate Amino Transferase 14 U/L (0-32); Blood Urea Nitrogen 20 mg/dL (6-20); Calcium 9.2 mg/dL (8.5-10.5); Carbon Dioxide 30 mmol/L (22-29); Chloride 101 mmol/L (98-107); Globulin 2.7 g/dL (1.3-4.6); Glucose 94 mg/dL (65-115); Osmolality Calculated 294 mOsm/kg (285-295); Phosphorus 3.7 mg/dL (2.5-4.5); Potassium 3.6 mmol/L (3.5-5.1); Sodium 141 mmol/L (136-145); Total Bilirubin 0.4 mg/dL (0.15-1.2); Total Protein 6.7 g/dL (6.6-8.7)
[2022-05-19] MEDS: tizanidine 4 mg Tablet 2 MG PO ×2 (09:13→21:30)
[2022-05-19] MEDS: FUROsemide 40 mg Tablet PO (09:13)
[2022-05-19] MEDS: spironolactone 25 mg Tablet 12.5 MG PO (09:13)
[2022-05-19] MEDS: pantoprazole DR 40 mg Tablet PO (09:14)
[2022-05-19] MEDS: carvedilol 12.5 mg Tablet PO ×2 (09:14→21:29)
[2022-05-19] MEDS: acetaminophen 325 mg Tablet 650 MG PO (09:23)
--- NOTE | 2022-05-19 16:21 | PM.PN ---
Subjective Subjective: Patient feels better, complains of intermittent headaches UO: 4L yesterday, -2.8 L Medications: Reviewed: Yes Vitals/I&O/Wt Last Vital Signs Temp 98.4 F 05/19/22 15:08 Pulse 77 05/19/22 15:08 Resp 16 05/19/22 15:08 BP 105/64 05/19/22 15:08 Pulse Ox 95 05/19/22 15:08 O2 Del Method 05/19/22 15:08 O2 Flow Rate 2 05/19/22 08:00 05/19/22 05/19/22 05/19/22 06:59 14:59 22:59 Intake Total 240 / 1200 480 / 480 Output Total 900 / 4000 900 / 900 Balance -660 / -2800 480 / 480 -900 / -420 Weight last 48 hrs Weight 170 lb 7 oz Physical Exam Narrative: Gen: NAD, obese woman laying in bed NeCK: No JVD appreciated HEENT: No pallor, EOMI, No lymphadenopathy RS: CTAB/L except at right base with fine crakles CVS: S1, S2, regular; No murmur, rub or gallop appreciated on exam EXt: No edemal, cyanosis or clubbing PA: soft, obese, NTND Data : 05/19/22 05:04 05/19/22 05:04 Micro: Microbiology 05/19/22 10:05 Blood Culture - Preliminary Blood SPECIMEN COLLECTED 05/19/22 10:00 Blood Culture - Preliminary Blood SPECIMEN COLLECTED A&P Assessment and plan (1) Chest pain: likely in setting of decompensated CHF -patient also has h/o chest pains inspite of known NICM -she has not been on her home dose of ISMN for > 1 month now. -plan to resume that on discharge based on BP Status: Acute (2) Nonischemic cardiomyopathy: HFrEF Mild decrease in LV systolic function from 30-35% on last echo to 25% now. -No ischemia on stress test -will hold off on lasix tomorrow Status: Chronic (3) ICD (implantable cardioverter-defibrillator) in place: (03/01/22): Single chamber Medtronic ICD set at VVI 40;? 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 No episodes of VT/VF/AFib, battery 8.5 years. Status: Chronic Plan Moderate to severe MR: Will plan for ELIZA to assess MR better GERRI: f/u on BMP H/o HTN: BP soft here ; -3.4L after diuresis Recent hip sx Overweight Thank you for allowing me to participate in patient's care. Please feel free to call with questions or concerns. Attestations Medical Necessity Statement*: Needs hospital stay for CHF, MR and GERRI Coding Level of Care Code Acute Day Care Director for Chg Fwd Diagnoses Chest pain R07.9 Nonischemic cardiomyopathy I42.8 ICD (implantable cardioverter-defibrillator) in place Z95.810
--- NOTE | 2022-05-19 17:54 | P.PN_ITS ---
Subjective Subjective: Patient states chest pain is improving this morning. She was evaluated by cardiology last evening. Spent diuresing well with Lasix. No new complaints today. Medications: Reviewed: Yes Vitals/I&O/Wt Last Vital Signs Temp 98.4 F 05/19/22 15:08 Pulse 77 05/19/22 15:08 Resp 16 05/19/22 15:08 BP 105/64 05/19/22 15:08 Pulse Ox 95 05/19/22 15:08 O2 Del Method 05/19/22 15:08 O2 Flow Rate 2 05/19/22 08:00 05/19/22 05/19/22 05/19/22 06:59 14:59 22:59 Intake Total 240 / 1200 480 / 480 Output Total 900 / 4000 900 / 900 Balance -660 / -2800 480 / 480 -900 / -420 Weight last 48 hrs Weight 77.309 kg Physical Exam Narrative: General: No acute distress, AO x3 HEENT: PERRLA, pupils bilaterally equal and reactive, pallors not present Chest: Normal vesicular breath sounds, no added sounds, equal good air entry bilaterally CVS: S1-S2 regular, no murmurs, no tachycardia, no gallops, no rubs Abdomen: Soft, nontender, no organomegaly, bowel sounds present Neuro: No focal deficits, no facial deformity, AO x3, power 5/5 in all limbs Data : 05/19/22 05:04 05/19/22 05:04 Micro: Microbiology 05/19/22 10:05 Blood Culture - Preliminary Blood SPECIMEN COLLECTED 05/19/22 10:00 Blood Culture - Preliminary Blood SPECIMEN COLLECTED A&P Assessment and plan (1) Chest pain: Status: Acute (2) Abnormal stress test: Status: Acute (3) HTN (hypertension): Status: Chronic Qualifiers: Hypertension type: essential hypertension Qualified Code(s): I10 - Essential (primary) hypertension (4) ICD (implantable cardioverter-defibrillator) in place: Status: Chronic (5) Nonischemic cardiomyopathy: Status: Chronic (6) Mass of right lobe of liver: Status: Chronic Plan Chest pain -Abnormal stress test Appreciate cardiology consult. Chest pain thought to be related to decompensated CHF. Echocardiogram was completed, shows a decrease in known ejection fraction. She is additionally noted to have moderate to severe mitral regurgitation, plan for ELIZA tomorrow Shortness of breath, chest pain -Likely a component of acute on chronic systolic and diastolic CHF -Elevated BNP -Lasix 40 IV twice daily---> transitioned to po lasix 40mg daily CHF, as above History of TIA as above History of ICD as above Hypertension continue home meds Attestations Medical Necessity Statement*: Plan ELIZA tomorrow. Coding Level of Care Code Acute Transmission Builder for Chg Fwd Diagnoses Chest pain R07.9 Abnormal stress test R94.39 HTN (hypertension) I10 Hypertension type: essential hypertension ICD (implantable cardioverter-defibrillator) in place Z95.810 Nonischemic cardiomyopathy I42.8 Mass of right lobe of liver R16.0
[2022-05-19 20:57] LABS: Add Urine Microscopic? YES; Bacteria Urine 1+ /hpf; Bilirubin Urine Neg (Negative); Blood Urine Neg (Negative); Glucose Urine UA Norm (Normal); Ketones Urine Negative (Negative); Leukocyte Esterase Urine Trace (Negative); Nitrate Urine Negative (Negative); Protein Urine Neg (Negative); RBC Urine 0-4 /hpf (0-2); Specific Gravity, Urine 1.015 (1.005-1.030); Urine Appearance Clear (CLEAR); Urine Color Yellow (Yellow); Urobilinogen Urine Norm (Negative); WBC Urine 0-4 /hpf (0-5); pH Urine 5 (5-7)
[2022-05-19 20:58] LABS: Add Urine Culture? Yes
[2022-05-19] MEDS: citalopram 20 mg Tablet 40 MG PO (21:29)
[2022-05-19] MEDS: zolpidem 5 mg Tablet 10 MG PO (21:30)
[2022-05-19] MEDS: enoxaparin 40 mg/0.4 mL Syringe SUBCUT (21:33)
[2022-05-19] MEDS: HYDROmorphone 1 mg/mL INJ 1 mL 0.5 MG IVP (21:35)
--- NOTE | 2022-05-19 21:45 | PC.NURSE ---
on lovenox, up ad blayne
[2022-05-20] VITALS (16 sets, daily range): BP systolic 91–124; BP diastolic 51–78; PULSE 65–93; RESP 12–20; TEMP 36.1–37; O2SAT 92–99
[2022-05-20] MEDS: HYDROmorphone 1 mg/mL INJ 1 mL 0.5 MG IVP ×4 (02:45→23:27)
[2022-05-20 04:59] LABS: Basophils # 0.1 10^3/uL (0.0-0.1); Eosinophils # 0.2 10^3/uL (0.0-0.8); Eosinophils % 3.4 %; Hematocrit 35.2 % (37.0-47.0); Hemoglobin 11.5 g/dL (11.5-15.3); Lymphocytes # 2.3 10^3/uL (0.8-4.8); Lymphocytes % 34.2 %; Mean Corpuscular HGB Conc 32.7 g/dL (30.0-36.0); Mean Corpuscular Hemoglobin 34.6 pg (28.0-34.0); Mean Platelet Volume 10.8 fL (7.4-10.4); Monocytes # 0.5 10^3/uL (0.2-0.9); Monocytes % 6.6 %; Neutrophils # 3.72 10^3/uL (1.8-7.7); Neutrophils % 54.5 %; Nucleated Red Blood Cells % 0 %; Platelet Count 187 10^3/cmm (130-400); Red Blood Count 3.32 10^6/uL (4.1-5.3); White Blood Count 6.8 10^3/uL (4.0-10.0)
[2022-05-20 05:26] LABS: Alanine Aminotransferase 14 U/L (0-33); Albumin Level 3.7 g/dL (3.5-5.2); Alkaline Phosphatase 119 IU/L (35-105); Anion Gap 12.7 (5-19); Aspartate Amino Transferase 19 U/L (0-32); Blood Urea Nitrogen 20 mg/dL (6-20); Calcium 9.5 mg/dL (8.5-10.5); Carbon Dioxide 29 mmol/L (22-29); Chloride 100 mmol/L (98-107); Globulin 2.9 g/dL (1.3-4.6); Glucose 94 mg/dL (65-115); Magnesium 1.9 mg/dL (1.7-2.3); Osmolality Calculated 288 mOsm/kg (285-295); Phosphorus 3.8 mg/dL (2.5-4.5); Potassium 3.7 mmol/L (3.5-5.1); Sodium 138 mmol/L (136-145); Total Bilirubin 0.2 mg/dL (0.15-1.2); Total Protein 6.6 g/dL (6.6-8.7)
--- NOTE | 2022-05-20 07:57 | PM.PN ---
Subjective Subjective: Patient feels better, complains of intermittent headaches Medications: Reviewed: Yes Vitals/I&O/Wt Last Vital Signs Temp 98.0 F 05/20/22 07:48 Pulse 77 05/20/22 07:48 Resp 16 05/20/22 07:48 BP 91/64 05/20/22 07:48 Pulse Ox 95 05/20/22 07:48 O2 Del Method 05/20/22 07:48 O2 Flow Rate 2 05/19/22 08:00 05/19/22 05/20/22 05/20/22 22:59 06:59 14:59 Intake Total 360 / 840 0 / 840 Output Total 900 / 900 0 / 900 Balance -540 / -60 0 / -60 Physical Exam Narrative: Gen: NAD, obese woman laying in bed NeCK: No JVD appreciated HEENT: No pallor, EOMI, No lymphadenopathy RS: CTAB/L except at right base with fine crakles CVS: S1, S2, regular; No murmur, rub or gallop appreciated on exam EXt: No edemal, cyanosis or clubbing PA: soft, obese, NTND Data : 05/20/22 04:49 05/20/22 04:49 Micro: Microbiology 05/19/22 10:05 Blood Culture - Preliminary Blood SPECIMEN COLLECTED 05/19/22 10:00 Blood Culture - Preliminary Blood SPECIMEN COLLECTED A&P Assessment and plan (1) Chest pain: likely in setting of decompensated CHF -patient also has h/o chest pains inspite of known NICM -she has not been on her home dose of ISMN for > 1 month now. -will plan to resume that in office based on BP Status: Acute (2) Nonischemic cardiomyopathy: HFrEF Mild decrease in LV systolic function from 30-35% on last echo to 25% now. -No ischemia on stress test -continue coreg, lasix PRN on discharge. -start on entresto 49/51 mg BID starting tomorrow and uptitrate based on renal function/potassium and BP -plan to add aldactone as an outpatient in next 2-3 days -f/u with [facility] in 1-2 weeks -BMP in 1 week -f/u with in 2 months Status: Chronic (3) ICD (implantable cardioverter-defibrillator) in place: (03/01/22): Single chamber Medtronic ICD set at VVI 40;? 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 No episodes of VT/VF/AFib, battery 8.5 years. Status: Chronic Plan Mitral Regurgitation: ELIZA shows mild to moderate MR. GERRI: f/u on BMP with stable creatinine and improving BUN H/o HTN: BP improved Recent hip sx Overweight Thank you for allowing me to participate in patient's care. Please feel free to call with questions or concerns. Attestations Medical Necessity Statement*: stable to be discharged. Coding Level of Care Code Acute Soldering Machine Feeder for Chg Fwd Diagnoses Chest pain R07.9 Nonischemic cardiomyopathy I42.8 ICD (implantable cardioverter-defibrillator) in place Z95.810
[2022-05-20] MEDS: acetaminophen 325 mg Tablet 650 MG PO ×2 (09:27→19:29)
--- NOTE | 2022-05-20 11:59 | PC.NURSE ---
off unit to gi lab for ELIZA
[2022-05-20] MEDS: sodium chloride 0.9% 1,000 ML 30 ML IV (12:11)
--- NOTE | 2022-05-20 12:30 | USCV_ITS ---
Elena Pulliam Age: 52 Gender: F : 1970 Exam Date: 05/20/2022 13:19 Ordering Phys: Sil Pineda MD ([email or web address]) Technologist: LIU [place] [facility] [place]ication: ASSESS MITRAL REGURG BP: 119 / 70 HR: Rhythm: Sinus Technical Quality: Adequate MEASUREMENTS (Male / Female) Normal Values Medications Patient given IV sedation by anesthesia service, for details please refer to the anesthesia report. Complications Intubation easy. Attempts x1. No blood in proposed procedure. Patient tolerated procedure well. Proc. Components The patient was brought to the ELIZA examination room in a fasting state after obtaining an informed consent. The ELIZA probe was passed into the posterior pharynx , mid-esophagus, distal esophagus, and gastric fundus. FINDINGS Left Ventricle Markedly dilated left ventricle. Severely decreased left ventricular systolic function. Left ventricular ejection fraction is estimated at 20-25 %. Severe global hypokinesis. Right Ventricle Normal right ventricular size and systolic function. Right Atrium Normal right atrial size. Left Atrium Mildly increased left atrial size. LA Appendage Normal left atrial appendage. IA Septum Normal interatrial septum. No patent foramen ovale. No evidence for an atrial septal defect. Mitral Valve Structurally normal mitral valve. No mitral valve stenosis. Mild mitral valve regurgitation. Aortic Valve Structurally normal trileaflet aortic valve. No aortic valve stenosis. No aortic valve regurgitation. Tricuspid Valve Structurally normal tricuspid valve. No tricuspid valve stenosis. Trace to mild tricuspid valve regurgitation. Pulmonic Valve Structurally normal pulmonic valve. Trace pulmonary valve regurgitation. Pericardium No pericardial effusion. Aorta Normal size aortic root and proximal ascending aorta. CONCLUSIONS 1. Markedly dilated left ventricle. Severely decreased left ventricular systolic function. Left ventricular ejection fraction is estimated at 25 %. Severe global hypokinesis. 2. Normal right ventricular size and systolic function. 3. Mild mitral valve regurgitation. 4. Trace to mild tricuspid valve regurgitation. Sil Pineda MD (Electronically Signed) Final Date: 26 May 2022 12:57 S
--- NOTE | 2022-05-20 12:55 | ANES.PREANE2 ---
Pre-Anesthetic Assessment Height/Weight: Height 1.65 m Weight 77.309 kg Temp Pulse Resp BP Pulse Ox O2 Del Method O2 Flow Rate 97 F L 79 16 124/76 93 2 05/20/22 12:04 05/20/22 12:04 05/20/22 12:04 05/20/22 12:04 05/20/22 12:04 05/20/22 12:04 05/19/22 08:00 Preop Diagnosis: Left intertrochanteric hip fracture Operation Date: 05/20/22 12:30 Proposed Procedures p ELIZA(Not Applicable) - Sil Pineda MD Familial anesthetic complications: None Was Beta Grady taken within 24 hours: Yes Was Clonidine taken within 24 hours: N/A Last intake: Intake Last Liquid Date 05/19/22 Last Liquid Time 22:30 Last Solid Date 05/19/22 Last Solid Time 22:30 Social Tobacco and No alcohol Exam alert, oriented x 3, clear to auscultation bilaterally and regular rate & rhythm Airway Mallampati: Class III Dentition: chipped and loose Pulmonary None reported CV/HEM Congestive Heart Failure Idiopathic NICM, EF 25%, ICD set at VVI 40, severe MR. decompensated Heart failure now being diuresed, improving Anesthetic Plan ASA status: 4 Anesthesia: MAC Risk of > 500 ml blood loss (7ml/kg in children): No Medications/Allergies Home Medications Medication Instructions Recorded Confirmed Last Taken Type citalopram 40 mg tablet (Celexa) 40 mg PO QAM 01/31/20 05/18/22 03/24/22 22:00 History zolpidem 10 mg tablet 10 mg PO BEDTIME 01/31/20 05/18/22 03/24/22 22:00 History aspirin 81 mg tablet,delayed 162 mg PO QAM 01/20/21 05/18/22 2 Weeks Ago History release (Adult Low Dose Aspirin) ~05/04/22 nitroglycerin 0.4 mg sublingual 0.4 mg sublingual Q5M PRN chest 01/20/21 05/18/22 Unknown Rx tablet (Nitrostat) pain #25 tabs ferrous sulfate 325 mg (65 mg 325 mg PO QAM 07/22/21 05/18/22 03/25/22 08:00 History iron) tablet cyanocobalamin (vitamin B-12) 50 50 mcg PO QAM 11/30/21 05/18/22 03/25/22 08:00 History mcg tablet (Vitamin B-12) levalbuterol tartrate 45 2 inh inhalation Q6H PRN Shortness 11/30/21 05/18/22 03/25/22 History mcg/actuation aerosol inhaler Of Breath lisinopril 20 mg tablet 20 mg PO BEDTIME 11/30/21 05/18/22 03/25/22 08:00 History montelukast 10 mg tablet 10 mg PO QAM 11/30/21 05/18/22 03/25/22 08:00 History carvedilol 25 mg tablet 25 mg PO BID #60 tabs 01/12/22 05/18/22 03/25/22 08:00 Rx spironolactone 25 mg tablet 12.5 mg PO QAM 01/12/22 05/18/22 03/25/22 08:00 History tamsulosin 0.4 mg capsule (Flomax) 0.4 mg PO BEDTIME PRN kidney stones 05/18/22 05/18/22 Unknown History Allergies Allergy/AdvReac Type Severity Reaction Status Date / Time egg Allergy unknown Verified 05/18/22 11:25 morphine Allergy Unknown Verified 05/18/22 11:25 Opioids - Morphine Analogues Allergy unknown Verified 05/18/22 11:25 Current Medications Generic Name Dose Route Start Last Admin Trade Name Freq PRN Reason Stop Dose Admin Acetaminophen 650 mg 05/17/22 22:26 05/20/22 09:27 Acetaminophen 325 Mg Tablet PO 650 mg Q6H PRN Administration Mild/Mod Pain Or Temp >/= 101 Aspirin 162 mg 05/18/22 06:00 05/19/22 05:15 Aspirin 81 Mg Ec Tablet PO 162 mg QAM AURE Administration Carvedilol 12.5 mg 05/18/22 21:00 05/19/22 21:29 Carvedilol 12.5 Mg Tablet PO 12.5 mg BID@0900,2100 AURE Administration Citalopram Hydrobromide 40 mg 05/18/22 21:00 05/19/22 21:29 Citalopram 20 Mg Tablet PO 40 mg BEDTIME AURE Administration Enoxaparin Sodium 40 mg 05/17/22 22:26 05/19/22 21:33 Enoxaparin 40 Mg/0.4 Ml Syringe SUBCUT 40 mg Q24H AURE Administration Ferrous Sulfate 325 mg 05/18/22 06:00 05/19/22 05:16 Ferrous Sulfate Ec 325 Mg Tablet PO 325 mg QAM AURE Administration Hydromorphone HCl 0.5 mg 05/17/22 22:26 05/20/22 11:32 Hydromorphone 1 Mg/Ml Inj 1 Ml IVP 0.5 mg Q4H PRN Administration chest pain/pain Sodium Chloride 1,000 mls @ 30 mls/hr 05/20/22 12:30 05/20/22 12:11 Sodium Chloride 0.9% IV 05/21/22 12:29 30 mls/hr .Q24H AURE Administration Montelukast Sodium 10 mg 05/18/22 06:00 05/19/22 05:15 Montelukast Sodium 10 Mg Tablet PO 10 mg QAM AURE Administration Nitroglycerin 0.4 mg 05/17/22 22:26 05/17/22 23:49 Nitroglycerin 0.4 Mg Sublingual Tablet SUBLINGUAL 0.4 mg Q5M PRN Administration chest pain Non-Formulary Medication 50 mcg 05/18/22 06:00 05/20/22 11:43 Cyanocobalamin (Vitamin B-12) [Vitamin B-12] PO Not Given QAM AURE Pantoprazole Sodium 40 mg 05/18/22 09:00 05/19/22 09:[address] 40 Mg Tablet PO 40 mg DAILY AURE Administration Spironolactone 12.5 mg 05/18/22 09:00 05/19/22 09:13 Spironolactone 25 Mg Tablet PO 12.5 mg DAILY AURE Administration Tizanidine HCl 2 mg 05/17/22 22:37 05/19/22 21:30 Tizanidine 4 Mg Tablet PO 2 mg Q6H PRN Administration muscle spasticity Zolpidem Tartrate 10 mg 05/17/22 22:45 05/19/22 21:30 Zolpidem 5 Mg Tablet PO 10 mg BEDTIME AURE Administration PFSH Anesthesia Medical History CHF (congestive heart failure) Related to nonischemic cardiomyopathy, most recent ejection fraction with with EF 42%. History of recurrent UTIs History of TIA (transient ischemic attack) HTN (hypertension) ICD (implantable cardioverter-defibrillator) in place Mass of right lobe of liver ~3.5 x 4 cm, indeterminant, hypodense, first noted 11/2021 Nonischemic cardiomyopathy Specific etiology unknown, may have been viral or related to uncontrolled hypertension from her recollection Echocardiogram November 2021 with ejection fraction of 42% Obstructive pyelonephritis (~11/2021) Renal stones Ureteral calculus Surgical History S/P ureteral stent placement (~11/2021) Status post cholecystectomy Status post placement of cardiac pacemaker Family History Father , AT AGE 77 CAD (coronary artery disease) Cancer lung cancer Mother , AT AGE 60 Cancer OVARIAN Denies family history of Clotting disorder Anesthesia complication Bleeding disorder Social History Smoking and tobacco status: current every day smoker cigarettes Packs smoked per day: 0.5 Years cigarettes smoked: 45 Second hand smoke exposure: Yes Alcohol intake: current Lives independently: Yes Marital status: service: No Current occupational status: disabled Current gender identity: Female Data Anesthesia : 05/20/22 04:49 05/20/22 04:49 Short CBC 05/19/22 05/20/22 Range/Units 05:04 04:49 WBC 6.3 6.8 (4.0-10.0) 10^3/uL Hgb 11.2 L 11.5 (11.5-15.3) g/dL Hct 34.6 L 35.2 L (37.0-47.0) % MCV 105.5 H 106.0 H (81-99) fl Plt Count 177 187 (130-400) 10^3/cmm Neut % (Auto) 58.2 54.5 % Neut # (Auto) 3.66 3.72 (1.8-7.7) 10^3/uL BMP 05/19/22 05/20/22 05:04 04:49 Sodium 141 138 Potassium 3.6 3.7 Chloride 101 100 Carbon Dioxide 30 H 29 BUN 20 20 Creatinine 1.3 H 1.3 H Glucose 94 94 Calcium 9.2 9.5 Liver Function 05/19/22 05/20/22 Range/Units 05:04 04:49 Total Bilirubin 0.4 0.2 (0.15-1.2) mg/dL AST 14 19 (0-32) U/L ALT 14 14 (0-33) U/L Alkaline Phosphatase 122 H 119 H (35-105) IU/L Albumin 4.0 3.7 (3.5-5.2) g/dL Urine 05/19/22 Range/Units 19:36 Urine Color Yellow (Yellow) Urine Appearance Clear (CLEAR) Urine pH 5 (5-7) Ur Specific [place] 1.015 (1.005-1.030) Urine Protein Neg (Negative) Urine Glucose (UA) Norm (Normal) Urine Ketones Negative (Negative) Urine Nitrate Negative (Negative) Urine Bilirubin Neg (Negative) Ur Leukocyte Esterase Trace H (Negative) Urine RBC 0-4 H (0-2) /hpf Urine WBC 0-4 H (0-5) /hpf Coags 05/19/22 05/20/22 05:04 04:49 PT 13.30 13.50 INR 0.99 1.00 Microbiology 05/19/22 10:05 Blood Culture - Preliminary Blood NEGATIVE TO DATE 05/19/22 10:00 Blood Culture - Preliminary Blood NEGATIVE TO DATE Cardiac Studies: Echocardiogram 05/17/22 Sestamibi Stress Test (Cardiology) 05/17/22
--- NOTE | 2022-05-20 14:06 | PC.NURSE ---
Pt was able to take water PO with no issues post ELIZA. No complaints of pain, vitals stable see documentation.
--- NOTE | 2022-05-20 14:15 | ANE.PACU2 ---
Inpatient post-anesthesia follow up: Airway intact: Yes Vital signs: Temperature 98 F Pulse Rate 78 Respiratory Rate 16 Blood Pressure 116/63 Pulse Oximetry 93 Oxygen Delivery Me thod [ Room Air Current Rate & Del chichi] Oxygen Delivery Me thod Room Air Oxygen Flow Rate 5 Fraction of Inspir ed Oxygen Hydration adequate: Yes Nausea and vomiting: No Pain level: 1 Mental status: Baseline
--- NOTE | 2022-05-20 15:48 | P.PN_ITS ---
Subjective Subjective: No new complaints today. Chest pain is improving. Patient for ELIZA today. Remained afebrile overnight. Medications: Reviewed: Yes Vitals/I&O/Wt Last Vital Signs Temp 98.5 F 05/20/22 15:13 Pulse 79 05/20/22 15:13 Resp 16 05/20/22 15:13 BP 121/78 05/20/22 15:13 Pulse Ox 97 05/20/22 15:13 O2 Del Method 05/20/22 15:13 O2 Flow Rate 5 05/20/22 13:48 05/20/22 05/20/22 05/20/22 06:59 14:59 22:59 Intake Total 0 / 840 300 / 300 Output Total 0 / 900 Balance 0 / -60 300 / 300 Physical Exam Narrative: General: No acute distress, AO x3 HEENT: PERRLA, pupils bilaterally equal and reactive, pallors not present Chest: Normal vesicular breath sounds, no added sounds, equal good air entry bilaterally CVS: S1-S2 regular, no murmurs, no tachycardia, no gallops, no rubs Abdomen: Soft, nontender, no organomegaly, bowel sounds present Neuro: No focal deficits, no facial deformity, AO x3, power 5/5 in all limbs Extremities: no edema, clubbing or cyanosis Data : 05/20/22 04:49 05/20/22 04:49 Micro: Microbiology 05/19/22 10:05 Blood Culture - Preliminary Blood NEGATIVE TO DATE 05/19/22 10:00 Blood Culture - Preliminary Blood NEGATIVE TO DATE A&P Assessment and plan (1) Chest pain: Status: Acute (2) Abnormal stress test: Status: Acute (3) HTN (hypertension): Status: Chronic Qualifiers: Hypertension type: essential hypertension Qualified Code(s): I10 - Essential (primary) hypertension (4) ICD (implantable cardioverter-defibrillator) in place: Status: Chronic (5) Nonischemic cardiomyopathy: Status: Chronic (6) Mass of right lobe of liver: Status: Chronic Plan Chest pain -Abnormal stress test, not thought to be ischemic in etiology Appreciate cardiology consult. Echocardiogram was completed, shows a decrease in known ejection fraction, moderate to severe mitral regurgitation, plan for ELIZA today Shortness of breath -Likely a component of acute on chronic systolic and diastolic CHF -Elevated BNP -Currently well compensated, net negative overall. CHF, as above History of TIA as above History of ICD as above Hypertension continue home meds Attestations Medical Necessity Statement*: ELIZA today Coding Level of Care Code Acute Infrastructure Administrator for Chg Fwd Diagnoses Chest pain R07.9 Abnormal stress test R94.39 HTN (hypertension) I10 Hypertension type: essential hypertension ICD (implantable cardioverter-defibrillator) in place Z95.810 Nonischemic cardiomyopathy I42.8 Mass of right lobe of liver R16.0
[2022-05-20] MEDS: montelukast sodium 10 mg Tablet PO (17:51)
[2022-05-20] MEDS: spironolactone 25 mg Tablet 12.5 MG PO (17:51)
[2022-05-20] MEDS: aspirin 81 mg EC Tablet 162 MG PO (17:52)
[2022-05-20] MEDS: pantoprazole DR 40 mg Tablet PO (17:52)
[2022-05-20] MEDS: ferrous sulfate EC 325 mg Tablet PO (17:52)
[2022-05-20] MEDS: carvedilol 12.5 mg Tablet PO (21:18)
[2022-05-20] MEDS: zolpidem 5 mg Tablet 10 MG PO (21:19)
[2022-05-20] MEDS: citalopram 20 mg Tablet 40 MG PO (21:19)
[2022-05-20] MEDS: enoxaparin 40 mg/0.4 mL Syringe SUBCUT (21:26)
[2022-05-20] MEDS: tizanidine 4 mg Tablet 2 MG PO (23:30)
[2022-05-21 03:15] VITALS: BP 110/70; PULSE 80; RESP 16; TEMP 36.7; O2SAT 93
[2022-05-21 05:46] LABS: Basophils # 0.1 10^3/uL (0.0-0.1); Basophils % 1.2 %; Eosinophils # 0.2 10^3/uL (0.0-0.8); Eosinophils % 4.1 %; Hematocrit 36.4 % (37.0-47.0); Hemoglobin 11.6 g/dL (11.5-15.3); Lymphocytes # 2.2 10^3/uL (0.8-4.8); Mean Corpuscular HGB Conc 31.9 g/dL (30.0-36.0); Mean Corpuscular Hemoglobin 34.6 pg (28.0-34.0); Mean Corpuscular Volume 108.7 fl (81-99); Mean Platelet Volume 10.8 fL (7.4-10.4); Monocytes # 0.5 10^3/uL (0.2-0.9); Monocytes % 7.7 %; Neutrophils # 2.81 10^3/uL (1.8-7.7); Neutrophils % 48.5 %; Nucleated Red Blood Cells % 0 %; Platelet Count 193 10^3/cmm (130-400); Red Blood Count 3.35 10^6/uL (4.1-5.3); Red Cell Distribution Width 12.9 % (12.1-15.1); White Blood Count 5.8 10^3/uL (4.0-10.0)
[2022-05-21 06:00] VITALS: PULSE 68
[2022-05-21 06:19] LABS: Alanine Aminotransferase 14 U/L (0-33); Albumin Level 3.9 g/dL (3.5-5.2); Alkaline Phosphatase 113 IU/L (35-105); Anion Gap 15.9 (5-19); Aspartate Amino Transferase 14 U/L (0-32); Blood Urea Nitrogen 24 mg/dL (6-20); Calcium 9.5 mg/dL (8.5-10.5); Carbon Dioxide 27 mmol/L (22-29); Chloride 103 mmol/L (98-107); Globulin 2.6 g/dL (1.3-4.6); Glomerular Filtration Rate 47.2 mL/min (90-130); Glucose 84 mg/dL (65-115); Osmolality Calculated 297 mOsm/kg (285-295); Potassium 3.9 mmol/L (3.5-5.1); Sodium 142 mmol/L (136-145); Total Bilirubin 0.2 mg/dL (0.15-1.2); Total Protein 6.5 g/dL (6.6-8.7)
[2022-05-21] MEDS: montelukast sodium 10 mg Tablet PO (06:43)
[2022-05-21] MEDS: ferrous sulfate EC 325 mg Tablet PO (06:43)
[2022-05-21] MEDS: aspirin 81 mg EC Tablet 162 MG PO (06:43)
[2022-05-21 07:32] VITALS: BP 102/73; PULSE 81; RESP 18; TEMP 36.8; O2SAT 94
[2022-05-21] MEDS: pantoprazole DR 40 mg Tablet PO (08:30)
[2022-05-21] MEDS: carvedilol 12.5 mg Tablet PO (08:30)
[2022-05-21] MEDS: sacubitril/valsartan 24-26 mg Tablet 1 EACH PO (08:30)
[2022-05-21 09:23] VITALS: RESP 17
[2022-05-21] MEDS: HYDROmorphone 1 mg/mL INJ 1 mL 0.5 MG IVP (09:23)
[2022-05-21 10:59] VITALS: BP 94/59; PULSE 75; RESP 18; TEMP 36.7; O2SAT 92
[2022-05-21 15:24] VITALS: BP 120/69; PULSE 77; RESP 16; TEMP 36.8; O2SAT 98
--- NOTE | 2022-05-21 15:36 | PM.DCS ---
Discharge Providers Date of Admission: 05/17/22 19:04 Date of Discharge: May 21, 2022 Attending Provider at Admission: Shay Parks MD Attending Provider at Discharge: Beryl Dejesus MD Primary Care Provider: Elena Gray MD Diagnoses at Discharge Discharge Diagnosis (1) Chest pain: Status: Acute (2) Nonischemic cardiomyopathy: Status: Chronic Permanent problem details: Specific etiology unknown, may have been viral or related to uncontrolled hypertension from her recollection Echocardiogram November 2021 with ejection fraction of 42% (3) ICD (implantable cardioverter-defibrillator) in place: Status: Chronic Reason for Visit Reason for Visit: CHEST PAIN Brief History: Elena Pulliam is a 52 year old female with a past medical history of systolic and diastolic CHF, recent hospitalization for hip fracture status post repair, history of not hemic cardiomyopathy, AICD in place,presents [facility] for chest pain. EKG was without acute ST-T wave changes and troponin without significant delta. Due to concern for anginal chest pain she underwent a stress test which showed Large sized fixed perfusion abnormality of entire inferior, basal to apical ?inferolateral, basal to apical septal and apical apical bowles. Her ejection fraction had also reduced to 25%, previously being 40%. Cardiology was consulted and felt chest pain was more likely related to decompensated heart failure versus moderate to severe MR. She underwent a ELIZA which showed moderate MR. Per cardiology recommendations, she was started on Entresto twice daily with plan to uptitrate as outpatient based on renal function and potassium. Her blood pressure tolerated the addition of Entresto. Aldactone was held with plan to resume as outpatient. Coreg dose was reduced from 25 mg twice daily to 12.5 mg twice daily. Lasix was changed to as needed. She is being discharged today in improved condition. She no longer has any complaints of chest pain. Recommended to follow-up with cardiology nurse practitioner in [address] Pineda in 2 months. Physical Exam Narrative: General: No acute distress, AO x3 HEENT: PERRLA, pupils bilaterally equal and reactive, pallors not present Chest: Normal vesicular breath sounds, no added sounds, equal good air entry bilaterally CVS: S1-S2 regular, no murmurs, no tachycardia, no gallops, no rubs Abdomen: Soft, nontender, no organomegaly, bowel sounds present Neuro: No focal deficits, no facial deformity, AO x3, power 5/5 in all limbs Extremities: No cyanosis, clubbing or edema. Discharge Data Studies Completed and Pending Completed Studies During Hospitalization Category Date Time Status Sestamibi Stress Test Request Routine Exams 05/17/22 22:26 Completed XR chest 1V portable [id number] Stat Exams 05/17/22 14:53 Completed NM tushar perf SPECT r/s* [id number] Routine Nuc Med 05/18/22 22:26 [place] [id number] Stat Ultrasound 05/17/22 20:07 Completed CV. echo complete* [id number] Stat Ultrasound 05/17/22 20:05 Completed Pending at discharge Category Date Time Status Blood Culture Stat Lab 05/19/22 10:05 Results Complete Blood Count w/Auto AM LABS Lab 05/22/22 04:00 Ordered CV. echo transesophageal [id number] Routine Ultrasound 05/20/22 12:30 Taken Radiology Impressions Chest X-Ray 05/17/22 14:53 IMPRESSION: 1. Accentuated cardiac silhouette size and vascularity. See discussion above. 2. No obvious acute consolidation. Suboptimal lung base assessment. Followup including lateral view may be obtained if clinically indicated. Laboratory Results WBC 5.8 10^3/uL (4.0-10.0) 05/21/22 05:10 RBC 3.35 10^6/uL (4.1-5.3) L 05/21/22 05:10 Hgb 11.6 g/dL (11.5-15.3) 05/21/22 05:10 Hct 36.4 % (37.0-47.0) L 05/21/22 05:10 MCV 108.7 fl (81-99) H 05/21/22 05:10 MCH 34.6 pg (28.0-34.0) H 05/21/22 05:10 MCHC 31.9 g/dL (30.0-36.0) 05/21/22 05:10 RDW 12.9 % (12.1-15.1) 05/21/22 05:10 Plt Count 193 10^3/cmm (130-400) 05/21/22 05:10 MPV 10.8 fL (7.4-10.4) H 05/21/22 05:10 Neut % (Auto) 48.5 % 05/21/22 05:10 Lymph % (Auto) 38.0 % 05/21/22 05:10 [place] % (Auto) 7.7 % 05/21/22 05:10 Eos % (Auto) 4.1 % 05/21/22 05:10 Baso % (Auto) 1.2 % 05/21/22 05:10 Neut # (Auto) 2.81 10^3/uL (1.8-7.7) 05/21/22 05:10 Lymph # (Auto) 2.2 10^3/uL (0.8-4.8) 05/21/22 05:10 [place] # (Auto) 0.5 10^3/uL (0.2-0.9) 05/21/22 05:10 Eos # (Auto) 0.2 10^3/uL (0.0-0.8) 05/21/22 05:10 Baso # (Auto) 0.1 10^3/uL (0.0-0.1) 05/21/22 05:10 Nucleated RBC % (auto) 0 % 05/21/22 05:10 Nucleated RBCs # 0.0 /100WBC 05/21/22 05:10 PT 13.50 SECONDS (12.1-14.9) 05/20/22 04:49 INR 1.00 (0.8-1.2) 05/20/22 04:49 D-Dimer 0.55 ug/mIFEU (0-0.59) 05/17/22 19:03 Sodium 142 mmol/L (136-145) 05/21/22 05:10 Potassium 3.9 mmol/L (3.5-5.1) 05/21/22 05:10 Chloride 103 mmol/L (98-107) 05/21/22 05:10 Carbon Dioxide 27 mmol/L (22-29) 05/21/22 05:10 Anion Gap 15.9 (5-19) 05/21/22 05:10 BUN 24 mg/dL (6-20) H 05/21/22 05:10 Creatinine 1.2 mg/dL (0.5-0.9) H 05/21/22 05:10 GFR Calculation 47.2 mL/min (90-130) L 05/21/22 05:10 Glucose 84 mg/dL (65-115) 05/21/22 05:10 Estimat Average Glucose 74 05/18/22 05:37 Hemoglobin A1c 4.2 % (4.0-6.0) 05/18/22 05:37 Calculated Osmolality 297 mOsm/kg (285-295) H 05/21/22 05:10 Calcium 9.5 mg/dL (8.5-10.5) 05/21/22 05:10 Phosphorus 3.8 mg/dL (2.5-4.5) 05/20/22 04:49 Magnesium 1.9 mg/dL (1.7-2.3) 05/20/22 04:49 Total Bilirubin 0.2 mg/dL (0.15-1.2) 05/21/22 05:10 AST 14 U/L (0-32) 05/21/22 05:10 ALT 14 U/L (0-33) 05/21/22 05:10 Alkaline Phosphatase 113 IU/L (35-105) H 05/21/22 05:10 Troponin T Baseline 12 ng/L (0-10) H 05/17/22 15:08 Troponin T 120 Minute 11.96 ng/L (0-10) H 05/17/22 17:02 Delta Troponin T -0.04 ABS# (0-10) L 05/17/22 17:02 Troponin T Hi Sens 6Hr 13.59 ng/L (0-10) H 05/17/22 21:18 Troponin T Hi Sens 6Hr Delta 1.59 ng/L (0-12) 05/17/22 21:18 NT-Pro-B Natriuret Pep 4898 pg/mL (0-125) H 05/18/22 05:37 Total Protein 6.5 g/dL (6.6-8.7) L 05/21/22 05:10 Albumin 3.9 g/dL (3.5-5.2) 05/21/22 05:10 Globulin 2.6 g/dL (1.3-4.6) 05/21/22 05:10 Triglycerides 160 mg/dL (0-150) H 05/18/22 05:37 Cholesterol 152 mg/dL (0-200) 05/18/22 05:37 LDL Cholesterol, Calc 85 mg/dL (50-129) 05/18/22 05:37 HDL Cholesterol 35 mg/dL (60-100) L 05/18/22 05:37 LDL/HDL Ratio 2.43 RATIO (0.00-3.22) 05/18/22 05:37 Cholesterol/HDL Ratio 4.34 mg/dL (0.0-4.40) 05/18/22 05:37 Urine Color Yellow (Yellow) 05/19/22 19:36 Urine Appearance Clear (CLEAR) 05/19/22 19:36 Urine pH 5 (5-7) 05/19/22 19:36 Ur Specific [place] 1.015 (1.005-1.030) 05/19/22 19:36 Urine Protein Neg (Negative) 05/19/22 19:36 Urine Glucose (UA) Norm (Normal) 05/19/22 19:36 Urine Ketones Negative (Negative) 05/19/22 19:36 Urine Blood Neg (Negative) 05/19/22 19:36 Urine Nitrate Negative (Negative) 05/19/22 19:36 Urine Bilirubin Neg (Negative) 05/19/22 19:36 Urine Urobilinogen Norm mg/dL (Negative) 05/19/22 19:36 Ur Leukocyte Esterase Trace (Negative) H 05/19/22 19:36 Urine RBC 0-4 /hpf (0-2) H 05/19/22 19:36 Urine WBC 0-4 /hpf (0-5) H 05/19/22 19:36 Ur Squamous Epith Cells 5-10 /hpf (0-5) H 05/19/22 19:36 Amorphous Sediment Not Reportable 05/19/22 19:36 Urine Bacteria 1+ /hpf (NONE) H 05/19/22 19:36 Coronavirus 229E (PCR) Not detected (NOT DETECT) 05/17/22 15:39 SARS-CoV-2 (PCR) Not detected (NOT DETECT) 05/17/22 15:39 Vitals Last Vital Signs Temp 98.3 F 05/21/22 15:24 Pulse 77 05/21/22 15:24 Resp 16 05/21/22 15:24 BP 120/69 05/21/22 15:24 Pulse Ox 98 05/21/22 15:24 O2 Del Method 05/21/22 15:24 O2 Flow Rate 5 05/20/22 20:00 Discharge Plan Discharge Patient Disposition: Home Condition: Stable Prescriptions: New pantoprazole 40 mg Tablet,Delayed Release (Dr/Ec) 40 mg PO DAILY 30 Days Qty: 30 0RF Entresto 24-26 mg Tablet 1 tab PO BID 30 Days Qty: 60 0RF Continued citalopram [Celexa] 40 mg tablet 40 mg PO QAM zolpidem 10 mg tablet 10 mg PO BEDTIME aspirin [Adult Low Dose Aspirin] 81 mg tablet,delayed release (DR/EC) 162 mg PO QAM Hold Instructions: Resume on 04/26/22. Resume after 30 days of full dose aspirin nitroglycerin [Nitrostat] 0.4 mg tablet, sublingual 0.4 mg SUBLINGUAL Q5M PRN (Reason: chest pain) Qty: 25 3RF ferrous sulfate 325 mg (65 mg iron) tablet 325 mg PO QAM Vitamin B-12 50 mcg Tablet 50 mcg PO QAM montelukast 10 mg tablet 10 mg PO QAM levalbuterol tartrate 45 mcg/actuation Hfa Aerosol Inhaler 2 inh INHALATION Q6H PRN (Reason: Shortness Of Breath) Flomax 0.4 mg Capsule 0.4 mg PO BEDTIME PRN (Reason: kidney stones) Changed carvedilol 25 mg tablet 12.5 mg PO BID Qty: 60 4RF Discontinued spironolactone 25 mg tablet 12.5 mg PO QAM lisinopril 20 mg tablet 20 mg PO BEDTIME Hold Instructions: Resume on 12/13/21. Hold until seen by primary care Discharge Orders: Discharge Order (Routine); Ordered 05/21/22 Ordered By: Beryl Dejesus Referrals: Elena Gray MD [Primary Care Provider] - Desire Callahan FNP [Nurse Practitioner] - 4-7 days Sil Pineda MD [Physician] - 2 months Discharge Diet: Usual diet and Cardiac Discharge Activity: Resume usual activity Patient Instructions: Opioid Safety Discharge Attestations Time Spent in Discharge Care*: greater than 30 min Quality Metrics Clinical Quality Measures [ No reported AMI, CVA or VTE this stay] Coding Level of Care Code Acute Chg FW DC note Diagnoses Chest pain R07.9 Nonischemic cardiomyopathy I42.8 ICD (implantable cardioverter-defibrillator) in place Z95.810
== END 2022-05-21 16:23 | disposition home or self-care (01) ==
LOC: ER 19:04 → MEDSURG 20:16
PROVIDERS: Internal Medicine Cardiovascular Disease; Admitting Provider Family Medicine; Emergency Provider Emergency Medicine; PCP Family Medicine; Visit Provider Student in an Organized Health Care Education/Training Program
PROC: (CPT 93312; principal; 2022-05-20 12:30)
DX: R07.9 Chest pain, unspecified (principal); I42.8 Other cardiomyopathies; Z95.810 Presence of automatic (implantable) cardiac defibrillator; I11.0 Hypertensive heart disease with heart failure; I50.40 Unspecified combined systolic (congestive) and diastolic (congestive) heart failure; R16.0 Hepatomegaly, not elsewhere classified; Z86.73 Personal history of transient ischemic attack (TIA), and cerebral infarction without residual deficits; Z79.82 Long term (current) use of aspirin; Z95.0 Presence of cardiac pacemaker; F17.210 Nicotine dependence, cigarettes, uncomplicated
CPT/HCPCS: 36415; 71045; 78452; 80048; 80053; 80061; 81001; 83036; 83735; 83880; 84100; 84484; 85025; 85378; 85610; 87040; 87086; 87635; 93005; 93017; 93306; 93312; 93320; 93325; 93970; 96372; 96374; 96375; 96376; 99285; A9500; G0378; J1170; J1650; J1940; J2405; J2785; J3010; J7030

== ENCOUNTER 2022-05-22 00:54 | Emergency (ER) | payer MEDICARE, MEDICAID, SELFPAY ==
[2022-05-22] VITALS (20 sets, daily range): BP systolic 83–115; BP diastolic 45–76; PULSE 67–78; RESP 14–21; TEMP 36.6; O2SAT 93–100; BMI 28.3
--- NOTE | 2022-05-22 00:55 | W.ED.CHESTPA ---
Documented by User: Schuyler Borden MD 06/05/22 20:29 HPI - Chest Pain General: Chief Complaint: Chest Pain Stated Complaint: cp Time Seen by Provider: 05/22/22 00:55 History of Present Illness: Ms. Pulliam is a 52-year-old lady with complex past medical history including combined heart failure, nonischemic cardiomyopathy, AICD in place, hypertension, tobaccoism, TIA who presents to the emergency department due to chest pain and shortness of breath. The patient was recently hospitalized for somewhat similar clinical presentation from 05/17 through 05/21. She reports improvement of chest pain upon discharge however this developed again approximately 3 hours prior to arrival. Left anterior chest associated with shortness of breath. She also has generalized malaise. Intensity symptoms is moderate. Course has persisted. No other specific changes in health, exacerbating, or alleviating factors identified. Patient reports that this episode of chest pain did not improve with nitroglycerin which is atypical for her. Prior to previous hospitalization she had chest pain 1-2 times per week. Onset (ago): hour(s) Timing of current episode: constant Prior episodes: Yes Onset: during rest Pain location: substernal and left chest Severity: moderate Quality: aching and heaviness Relieving factors: nothing Exacerbating factors: exertion and movement Review of Systems General: Reports: 10 or more systems reviewed and unremarkable except in HPI and below PFSH ED PFSH: Medical History CHF (congestive heart failure) Related to nonischemic cardiomyopathy, most recent ejection fraction with with EF 42%. History of recurrent UTIs History of TIA (transient ischemic attack) HTN (hypertension) ICD (implantable cardioverter-defibrillator) in place Mass of right lobe of liver ~3.5 x 4 cm, indeterminant, hypodense, first noted 11/2021 Nonischemic cardiomyopathy Specific etiology unknown, may have been viral or related to uncontrolled hypertension from her recollection Echocardiogram November 2021 with ejection fraction of 42% - 05/17/22 echo EF now 25% Obstructive pyelonephritis (~11/2021) Renal stones Ureteral calculus Surgical History S/P ureteral stent placement (~11/2021) Status post cholecystectomy Status post placement of cardiac pacemaker Family History Father , AT AGE 77 CAD (coronary artery disease) Cancer lung cancer Mother , AT AGE 60 Cancer OVARIAN Denies family history of Clotting disorder Anesthesia complication Bleeding disorder Social History Smoking and tobacco status: current every day smoker cigarettes Packs smoked per day: 0.5 Years cigarettes smoked: 45 Second hand smoke exposure: Yes Alcohol intake: current Lives independently: Yes Marital status: service: No Current occupational status: disabled Current gender identity: Female Physical Exam Const: COMMON NORMALS: alert GENERAL APPEARANCE: cooperative, well developed and ill appearing (Mild, chronic) HENMT: COMMON NORMALS: normocephalic and atraumatic HEAD & SCALP: normocephalic and atraumatic THROAT: posterior oropharynx normal Eye: COMMON NORMALS: conjunctivae normal CONJUNCTIVA: Yes conjunctivae normal SCLERA: sclerae normal Neck/C-Spine: COMMON NORMALS: supple GENERAL: Yes trachea midline Resp: EFFORT & INSPECTION: Yes able to speak in complete sentences AUSCULTATION: diminished lung sounds Cardio: COMMON NORMALS: regular rate and regular rhythm RATE: regular rate RHYTHM: regular rhythm GI: COMMON NORMALS: Soft to palpation PALPATION: Yes Soft to palpation and No Tenderness to palpation present (GI) Extremity: GENERAL: Yes normal exam except as noted and No edema Neuro: COMMON NORMALS: moves all extremities SENSORIUM/ORIENTATION: Yes alert and No Orientation impaired Psych: COMMON NORMALS: mental status grossly normal and Normal thought process present THOUGHT PROCESS: Normal thought process present Course Vital Signs: Vital signs: Vital Signs Temperature 97.9 F 05/22/22 01:15 Pulse Rate 68 05/22/22 07:40 Respiratory Rate 20 H 05/22/22 07:40 Blood Pressure 110/65 05/22/22 07:40 Pulse Oximetry 95 05/22/22 07:40 Oxygen Delivery Me thod 05/22/22 07:40 MDM - Chest Pain Medical Decision Making 52-year-old lady with complex past medical history including known combined heart failure and recent hospitalization with stress testing and cardiac evaluation for chest pain thought to be related to volume overload presenting to the ER for chest pain and shortness of breath. EKG appears similar to prior. No evidence of pneumonia. Delta troponin negative. Patient was noted to be mildly hypotensive and given significant decrease in BNP she may be slightly intravascularly dry. Small fluid boluses ordered. Symptom treatment ordered. Discussed with cardiology, given recent negative stress test no indication for repeat hospitalization. Given blood pressure and likely absence of therapeutic effect given nonischemic nature of cardiomyopathy plan to hold initiation of antianginals. Patient should have outpatient follow-up soon with cardiology. Patient care handed off to Dr. Stone pending CTA for evaluation of other etiologies with likely discharge if negative. Medical Records I reviewed the patient's medical records. Lab Data I reviewed the patient's lab results. : 05/22/22 01:24 05/22/22 01:24 Radiology Impressions Chest X-Ray 05/22/22 00:57 IMPRESSION: No acute cardiopulmonary abnormality. Chest CTA 05/22/22 05:37 IMPRESSION: 1. No CTA evidence of pulmonary embolism. Poor contrast opacification of the thoracic aorta, which limits assessment for thoracic aortic dissection. No thoracic aortic aneurysm seen. 2. No CT evidence of pneumonia. Mild dependent atelectasis. 3. Low-attenuation seen centrally in the visualized left kidney, suggestive of hydronephrosis. Dedicated imaging may be performed for complete assessment. 4. Caudal right hepatic lobe subcapsular 2.9 x 3.4 cm lesion. This was also seen on the prior CT dated December 28, 2021. Further assessment may be performed with MRI or biopsy. Laboratory Results WBC 7.0 10^3/uL (4.0-10.0) 05/22/22 01:24 RBC 3.30 10^6/uL (4.1-5.3) L 05/22/22 01:24 Hgb 11.4 g/dL (11.5-15.3) L 05/22/22 01:24 Hct 34.3 % (37.0-47.0) L 05/22/22 01:24 MCV 103.9 fl (81-99) H 05/22/22 01:24 MCH 34.5 pg (28.0-34.0) H 05/22/22:24 MCHC 33.2 g/dL (30.0-36.0) 05/22/22 01:24 RDW 12.8 % (12.1-15.1) 05/22/22 01:24 Plt Count 210 10^3/cmm (130-400) 05/22/22 01:24 MPV 10.6 fL (7.4-10.4) H 05/22/22 01:24 Neut % (Auto) 53.1 % 05/22/22 01:24 Lymph % (Auto) 33.8 % 05/22/22 01:24 [place] % (Auto) 8.7 % 05/22/22 01:24 Eos % (Auto) 3.1 % 05/22/22 01:24 Baso % (Auto) 0.9 % 05/22/22 01:24 Neut # (Auto) 3.73 10^3/uL (1.8-7.7) 05/22/22 01:24 Lymph # (Auto) 2.4 10^3/uL (0.8-4.8) 05/22/22 01:24 [place] # (Auto) 0.6 10^3/uL (0.2-0.9) 05/22/22 01:24 Eos # (Auto) 0.2 10^3/uL (0.0-0.8) 05/22/22 01:24 Baso # (Auto) 0.1 10^3/uL (0.0-0.1) 05/22/22 01:24 Nucleated RBC % (auto) 0 % 05/22/22 01:24 Nucleated RBCs # 0.0 /100WBC 05/22/22 01:24 Sodium 139 mmol/L (136-145) 05/22/22 01:24 Potassium 4.1 mmol/L (3.5-5.1) 05/22/22 01:24 Chloride 102 mmol/L (98-107) 05/22/22 01:24 Carbon Dioxide 25 mmol/L (22-29) 05/22/22 01:24 Anion Gap 16.1 (5-19) 05/22/22 01:24 BUN 23 mg/dL (6-20) H 05/22/22 01:24 Creatinine 1.2 mg/dL (0.5-0.9) H 05/22/22 01:24 GFR Calculation 47.2 mL/min (90-130) L 05/22/22 01:24 Glucose 91 mg/dL (65-115) 05/22/22 01:24 Calculated Osmolality 291 mOsm/kg (285-295) 05/22/22 01:24 Calcium 9.0 mg/dL (8.5-10.5) 05/22/22 01:24 Total Bilirubin 0.2 mg/dL (0.15-1.2) 05/22/22 01:24 AST 13 U/L (0-32) 05/22/22 01:24 ALT 13 U/L (0-33) 05/22/22 01:24 Alkaline Phosphatase 110 IU/L (35-105) H 05/22/22 01:24 Troponin T Baseline 10 ng/L (0-10) 05/22/22 01:24 Troponin T 120 Minute 11.22 ng/L (0-10) H 05/22/22 03:10 Delta Troponin T 1.22 ABS# (0-10) 05/22/22 03:10 Troponin T Hi Sens 6Hr 9.96 ng/L (0-10) 05/22/22 07:08 Troponin T Hi Sens 6Hr Delta -0.04 ng/L (0-12) L 05/22/22 07:08 NT-Pro-B Natriuret Pep 1266 pg/mL (0-125) H 05/22/22 01:24 Total Protein 6.5 g/dL (6.6-8.7) L 05/22/22 01:24 Albumin 4.0 g/dL (3.5-5.2) 05/22/22 01:24 Globulin 2.5 g/dL (1.3-4.6) 05/22/22 01:24 Lipase 43 U/L (13-60) 05/22/22 01:24 Discharge Plan Discharge Patient Disposition: Home Clinical Impression: Chest pain, Shortness of breath, ICD (implantable cardioverter-defibrillator) in place Condition: Stable Prescriptions: No Action citalopram [Celexa] 40 mg tablet 40 mg PO QAM zolpidem 10 mg tablet 10 mg PO BEDTIME aspirin [Adult Low Dose Aspirin] 81 mg tablet,delayed release (DR/EC) 162 mg PO QAM Hold Instructions: Resume on 04/26/22. Resume after 30 days of full dose aspirin nitroglycerin [Nitrostat] 0.4 mg tablet, sublingual 0.4 mg SUBLINGUAL Q5M PRN (Reason: chest pain) Qty: 25 3RF ferrous sulfate 325 mg (65 mg iron) tablet 325 mg PO QAM Vitamin B-12 50 mcg Tablet 50 mcg PO QAM montelukast 10 mg tablet 10 mg PO QAM levalbuterol tartrate 45 mcg/actuation Hfa Aerosol Inhaler 2 inh INHALATION Q6H PRN (Reason: Shortness Of Breath) Flomax 0.4 mg Capsule 0.4 mg PO BEDTIME PRN (Reason: kidney stones) pantoprazole 40 mg Tablet,Delayed Release (Dr/Ec) 40 mg PO DAILY 30 Days Qty: 30 0RF Entresto 24-26 mg Tablet 1 tab PO BID 30 Days Qty: 60 0RF carvedilol 25 mg tablet 12.5 mg PO BID Qty: 60 4RF Lasix 20 mg tablet 20 mg PO DAILY PRN (Reason: edema) Qty: 30 0RF hydrocodone-acetaminophen 5-325 mg tablet 1 tab PO Q6H PRN (Reason: pain) Qty: 20 0RF Discharge Orders: Discharge ED (Routine); Ordered 05/22/22 Ordered By: Abiodun Stone Referrals: Elena Gray MD [Primary Care Provider] - Discharge Diet: Usual diet Discharge Activity: Increase activity as tolerated Activity Restrictions/Additional Instructions: Thank you for visiting the emergency department. You were seen and evaluated for chest pain and shortness of breath. The exact cause of your symptoms is unclear as discussed however he does not appear to need hospitalization at this time given recent cardiac work-up Please follow-up with cardiology and your primary care provider. Please continue your current medication regimen. Please return to the emergency department for worsening symptoms or anything else that you are concerned about a feel needs emergency department evaluation. Sign Out Sign Out Data: Patient Sign Out occurred on 05/22/22 at 06:27. Patient's care was discussed, and care was transferred from to Abiodun Stone DO. Coding Level of Care Code ED Food And Beverage Server for Chg Fwd Exam Comprehensive Documented by User: Abiodun Stone DO 05/22/22 07:47 HPI - Chest Pain General: Chief Complaint: Chest Pain Stated Complaint: cp Time Seen by Provider: 05/22/22 00:55 [facility] ED PFSH: Medical History CHF (congestive heart failure) Related to nonischemic cardiomyopathy, most recent ejection fraction with with EF 42%. History of recurrent UTIs History of TIA (transient ischemic attack) HTN (hypertension) ICD (implantable cardioverter-defibrillator) in place Mass of right lobe of liver ~3.5 x 4 cm, indeterminant, hypodense, first noted 11/2021 Nonischemic cardiomyopathy Specific etiology unknown, may have been viral or related to uncontrolled hypertension from her recollection Echocardiogram November 2021 with ejection fraction of 42% - 05/17/22 echo EF now 25% Obstructive pyelonephritis (~11/2021) Renal stones Ureteral calculus Surgical History S/P ureteral stent placement (~11/2021) Status post cholecystectomy Status post placement of cardiac pacemaker Family History Father , AT AGE 77 CAD (coronary artery disease) Cancer lung cancer Mother , AT AGE 60 Cancer OVARIAN Denies family history of Clotting disorder Anesthesia complication Bleeding disorder Social History Smoking and tobacco status: current every day smoker cigarettes Packs smoked per day: 0.5 Years cigarettes smoked: 45 Second hand smoke exposure: Yes Alcohol intake: current Lives independently: Yes Marital status: service: No Current occupational status: disabled Current gender identity: Female Course Vital Signs: Vital signs: Vital Signs Temperature 97.9 F 05/22/22 01:15 Pulse Rate 68 05/22/22 07:40 Respiratory Rate 20 H 05/22/22 07:40 Blood Pressure 110/65 05/22/22 07:40 Pulse Oximetry 95 05/22/22 07:40 Oxygen Delivery Me thod 05/22/22 07:40 MDM - Chest Pain Medical Decision Making 52-year-old lady with complex past medical history including known combined heart failure and recent hospitalization with stress testing and cardiac evaluation for chest pain thought to be related to volume overload presenting to the ER for chest pain and shortness of breath. EKG appears similar to prior. No evidence of pneumonia. Delta troponin negative. Patient was noted to be mildly hypotensive and given significant decrease in BNP she may be slightly intravascularly dry. Small fluid boluses ordered. Symptom treatment ordered. Discussed with cardiology, given recent negative stress test no indication for repeat hospitalization. Given blood pressure and likely absence of therapeutic effect given nonischemic nature of cardiomyopathy plan to hold initiation of antianginals. Patient should have outpatient follow-up soon with cardiology. Patient care handed off to Dr. Stone pending CTA for evaluation of other etiologies with likely discharge if negative. Care assumed at change of shift from Dr. Jackson. Patient is resting comfortably has no further chest pain reviewed labs imaging and EKG as well as a CTA of the chest. Labs are improved from her most recent hospitalization she was discharged yesterday troponins are unremarkable her BNP is lower CTA of the chest negative for PE. Her chest pain by description sounds more pleuritic in nature at this point think we can discharge her home she has not follow-up appointment this week with cardiology encouraged her to keep that appointment. Lab Data : 05/22/22 01:24 05/22/22 01:24 Radiology Impressions Chest X-Ray 05/22/22 00:57 IMPRESSION: No acute cardiopulmonary abnormality. Chest CTA 05/22/22 05:37 IMPRESSION: 1. No CTA evidence of pulmonary embolism. Poor contrast opacification of the thoracic aorta, which limits assessment for thoracic aortic dissection. No thoracic aortic aneurysm seen. 2. No CT evidence of pneumonia. Mild dependent atelectasis. 3. Low-attenuation seen centrally in the visualized left kidney, suggestive of hydronephrosis. Dedicated imaging may be performed for complete assessment. 4. Caudal right hepatic lobe subcapsular 2.9 x 3.4 cm lesion. This was also seen on the prior CT dated December 28, 2021. Further assessment may be performed with MRI or biopsy. Laboratory Results WBC 7.0 10^3/uL (4.0-10.0) 05/22/22 01:24 RBC 3.30 10^6/uL (4.1-5.3) L 05/22/22 01:24 Hgb 11.4 g/dL (11.5-15.3) L 05/22/22 01:24 Hct 34.3 % (37.0-47.0) L 05/22/22 01:24 MCV 103.9 fl (81-99) H 05/22/22 01:24 MCH 34.5 pg (28.0-34.0) H 05/22/22 01:24 MCHC 33.2 g/dL (30.0-36.0) 05/22/22 01:24 RDW 12.8 % (12.1-15.1) 05/22/22 01:24 Plt Count 210 10^3/cmm (130-400) 05/22/22 01:24 MPV 10.6 fL (7.4-10.4) H 05/22/22 01:24 Neut % (Auto) 53.1 % 05/22/22 01:24 Lymph % (Auto) 33.8 % 05/22/22 01:24 [place] % (Auto) 8.7 % 05/22/22 01:24 Eos % (Auto) 3.1 % 05/22/22 01:24 Baso % (Auto) 0.9 % 05/22/22 01:24 Neut # (Auto) 3.73 10^3/uL (1.8-7.7) 05/22/22 01:24 Lymph # (Auto) 2.4 10^3/uL (0.8-4.8) 05/22/22 01:24 [place] # (Auto) 0.6 10^3/uL (0.2-0.9) 05/22/22 01:24 Eos # (Auto) 0.2 10^3/uL (0.0-0.8) 05/22/22 01:24 Baso # (Auto) 0.1 10^3/uL (0.0-0.1) 05/22/22 01:24 Nucleated RBC % (auto) 0 % 05/22/22 01:24 Nucleated RBCs # 0.0 /100WBC 05/22/22 01:24 Sodium 139 mmol/L (136-145) 05/22/22 01:24 Potassium 4.1 mmol/L (3.5-5.1) 05/22/22 01:24 Chloride 102 mmol/L (98-107) 05/22/22 01:24 Carbon Dioxide 25 mmol/L (22-29) 05/22/22 01:24 Anion Gap 16.1 (5-19) 05/22/22 01:24 BUN 23 mg/dL (6-20) H 05/22/22 01:24 Creatinine 1.2 mg/dL (0.5-0.9) H 05/22/22 01:24 GFR Calculation 47.2 mL/min (90-130) L 05/22/22 01:24 Glucose 91 mg/dL (65-115) 05/22/22 01:24 Calculated Osmolality 291 mOsm/kg (285-295) 05/22/22 01:24 Calcium 9.0 mg/dL (8.5-10.5) 05/22/22 01:24 Total Bilirubin 0.2 mg/dL (0.15-1.2) 05/22/22 01:24 AST 13 U/L (0-32) 05/22/22 01:24 ALT 13 U/L (0-33) 05/22/22 01:24 Alkaline Phosphatase 110 IU/L (35-105) H 05/22/22 01:24 Troponin T Baseline 10 ng/L (0-10) 05/22/22 01:24 Troponin T 120 Minute 11.22 ng/L (0-10) H 05/22/22 03:10 Delta Troponin T 1.22 ABS# (0-10) 05/22/22 03:10 Troponin T Hi Sens 6Hr 9.96 ng/L (0-10) 05/22/22 07:08 Troponin T Hi Sens 6Hr Delta -0.04 ng/L (0-12) L 05/22/22 07:08 NT-Pro-B Natriuret Pep 1266 pg/mL (0-125) H 05/22/22 01:24 Total Protein 6.5 g/dL (6.6-8.7) L 05/22/22 01:24 Albumin 4.0 g/dL (3.5-5.2) 05/22/22 01:24 Globulin 2.5 g/dL (1.3-4.6) 05/22/22 01:24 Lipase 43 U/L (13-60) 05/22/22 01:24 Discharge Plan Discharge Patient Disposition: Home Clinical Impression: Chest pain, Shortness of breath, ICD (implantable cardioverter-defibrillator) in place Condition: Stable Prescriptions: No Action citalopram [Celexa] 40 mg tablet 40 mg PO QAM zolpidem 10 mg tablet 10 mg PO BEDTIME aspirin [Adult Low Dose Aspirin] 81 mg tablet,delayed release (DR/EC) 162 mg PO QAM Hold Instructions: Resume on 04/26/22. Resume after 30 days of full dose aspirin nitroglycerin [Nitrostat] 0.4 mg tablet, sublingual 0.4 mg SUBLINGUAL Q5M PRN (Reason: chest pain) Qty: 25 3RF ferrous sulfate 325 mg (65 mg iron) tablet 325 mg PO QAM Vitamin B-12 50 mcg Tablet 50 mcg PO QAM montelukast 10 mg tablet 10 mg PO QAM levalbuterol tartrate 45 mcg/actuation Hfa Aerosol Inhaler 2 inh INHALATION Q6H PRN (Reason: Shortness Of Breath) Flomax 0.4 mg Capsule 0.4 mg PO BEDTIME PRN (Reason: kidney stones) pantoprazole 40 mg Tablet,Delayed Release (Dr/Ec) 40 mg PO DAILY 30 Days Qty: 30 0RF Entresto 24-26 mg Tablet 1 tab PO BID 30 Days Qty: 60 0RF carvedilol 25 mg tablet 12.5 mg PO BID Qty: 60 4RF Lasix 20 mg tablet 20 mg PO DAILY PRN (Reason: edema) Qty: 30 0RF hydrocodone-acetaminophen 5-325 mg tablet 1 tab PO Q6H PRN (Reason: pain) Qty: 20 0RF Discharge Orders: Discharge ED (Routine); Ordered 05/22/22 Ordered By: Abiodun Stone Referrals: Elena Gray MD [Primary Care Provider] - Discharge Diet: Usual diet Discharge Activity: Increase activity as tolerated Activity Restrictions/Additional Instructions: Thank you for visiting the emergency department. You were seen and evaluated for chest pain and shortness of breath. The exact cause of your symptoms is unclear as discussed however he does not appear to need hospitalization at this time given recent cardiac work-up Please follow-up with cardiology and your primary care provider. Please continue your current medication regimen. Please return to the emergency department for worsening symptoms or anything else that you are concerned about a feel needs emergency department evaluation. Sign Out Sign Out Data: Patient Sign Out occurred on 05/22/22 at 06:27. Patient's care was discussed, and care was transferred from to Abiodun Stone DO. Coding Level of Care Code ED Food And Beverage Server for Wesley Fwd Exam Comprehensive
--- NOTE | 2022-05-22 00:56 | ECG_ITS ---
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 Measurements Intervals [place] Rate: 76 P: 70 CT: 147 QRS: -70 QRSD: 129 T: 73 QT: 418 QTc: 472 Interpretive Statements SINUS RHYTHM LEFT AXIS DEVIATION [QRS AXIS < -30] MODERATE INTRAVENTRICULAR CONDUCTION DELAY [105+ ms QRS DURATION, 80+ ms Q/S IN V1/V2, NO Q AND 60+ ms R IN I/aVL/V5/V6] Compared to ECG 05/17/2022 23:41:40 Sinus tachycardia no longer present ST (T wave) deviation no longer present Electronically Signed On 05-23-2022 17:41:24 CDT by Pola Ferrera M.D. [id number]
--- NOTE | 2022-05-22 00:57 | XRR_ITS ---
PROCEDURE INFORMATION: Exam: XR Chest Exam date and time: 05/22/2022 1:22 AM Age: 52 years old Clinical indication: Sternal or substernal pain; Prior surgery; Surgery type: Pacemaker; Additional info: Cp TECHNIQUE: Imaging protocol: Radiologic exam of the chest. Views: 1 view. COMPARISON: CR XR chest 1V portable [id number] 05/17/2022 3:08 PM FINDINGS: Tubes, catheters and devices: The AICD and its lead appear stable in position. Lungs: The lungs are clear. Pleural spaces: Unremarkable. No pleural effusion. No pneumothorax. Heart/Mediastinum: Unremarkable. No cardiomegaly. Bones/joints: Unremarkable. XR/XR chest 1V portable [id number] IMPRESSION: No acute cardiopulmonary abnormality.
[2022-05-22 01:29] LABS: Basophils # 0.1 10^3/uL (0.0-0.1); Basophils % 0.9 %; Eosinophils # 0.2 10^3/uL (0.0-0.8); Eosinophils % 3.1 %; Hematocrit 34.3 % (37.0-47.0); Hemoglobin 11.4 g/dL (11.5-15.3); Lymphocytes # 2.4 10^3/uL (0.8-4.8); Lymphocytes % 33.8 %; Mean Corpuscular HGB Conc 33.2 g/dL (30.0-36.0); Mean Corpuscular Hemoglobin 34.5 pg (28.0-34.0); Mean Corpuscular Volume 103.9 fl (81-99); Mean Platelet Volume 10.6 fL (7.4-10.4); Monocytes # 0.6 10^3/uL (0.2-0.9); Monocytes % 8.7 %; Neutrophils # 3.73 10^3/uL (1.8-7.7); Neutrophils % 53.1 %; Nucleated Red Blood Cells % 0 %; Platelet Count 210 10^3/cmm (130-400); Red Cell Distribution Width 12.8 % (12.1-15.1)
[2022-05-22 01:55] LABS: Troponin(5th) Baseline 10 ng/L (0-10)
[2022-05-22 02:05] LABS: Alanine Aminotransferase 13 U/L (0-33); Alkaline Phosphatase 110 IU/L (35-105); Anion Gap 16.1 (5-19); Aspartate Amino Transferase 13 U/L (0-32); Blood Urea Nitrogen 23 mg/dL (6-20); Carbon Dioxide 25 mmol/L (22-29); Chloride 102 mmol/L (98-107); Globulin 2.5 g/dL (1.3-4.6); Glomerular Filtration Rate 47.2 mL/min (90-130); Glucose 91 mg/dL (65-115); Lipase 43 U/L (13-60); NT Pro B Type Natriuretic Pept 1266 pg/mL (0-125); Osmolality Calculated 291 mOsm/kg (285-295); Potassium 4.1 mmol/L (3.5-5.1); Sodium 139 mmol/L (136-145); Total Bilirubin 0.2 mg/dL (0.15-1.2); Total Protein 6.5 g/dL (6.6-8.7)
--- NOTE | 2022-05-22 02:56 | ECG_ITS ---
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 Measurements Intervals [place] Rate: 69 P: 41 OR: 161 QRS: -41 QRSD: 131 T: 17 QT: 462 QTc: 497 Interpretive Statements SINUS RHYTHM LEFT AXIS DEVIATION [QRS AXIS < -30] INTRAVENTRICULAR CONDUCTION DELAY [130+ ms QRS DURATION] MODERATE VOLTAGE CRITERIA FOR LVH, CONSIDER NORMAL VARIANT [MEETS CRITERIA IN ONE OF: R(aVL), S(V1), R(V5), R(V5/V6)+S(V1)] Compared to ECG 05/22/2022 01:18:14 No significant changes Electronically Signed On 05-23-2022 17:48:55 CDT by Pola Ferrera M.D. [id number]
[2022-05-22] MEDS: ketorolac 30 mg/mL INJ 15 MG IVP (03:15)
[2022-05-22] MEDS: lidocaine 2% viscous 15 ML, aluminum-mag hydrox-simethicon 30 ML, sucralfate oral liq 1 GM PO (03:15)
--- NOTE | 2022-05-22 03:44 | PC.NURSE ---
dr mayfield notified of orthostatic vs results, and that patient denied any dizziness at any point, but did report increased sob with lying down.
[2022-05-22 03:47] LABS: Troponin 5 2HR 11.22 ng/L (0-10)
[2022-05-22] MEDS: sodium chloride 0.9% 250 ML 500 ML IV (03:55)
[2022-05-22 03:56] LABS: Troponin 5 2HR Delta 1.22 ABS# (0-10)
[2022-05-22] MEDS: acetaminophen 325 mg Tablet 650 MG PO (04:48)
[2022-05-22] MEDS: ipratropium-albuterol 3 mL Neb INHALATION (04:50)
[2022-05-22] MEDS: sodium chloride 0.9% 250 ML 999 ML IV (04:52)
--- NOTE | 2022-05-22 05:37 | CTR_ITS ---
PROCEDURE INFORMATION: Exam: CTA Chest With Contrast Exam date and time: 05/22/2022 5:47 AM Age: 52 years old Clinical indication: Cough and shortness of breath; Prior surgery; Surgery type: Pacemaker; Additional info: SOB, cp, recent hospitalization TECHNIQUE: Imaging protocol: Computed tomographic angiography of the chest with contrast. 3D rendering (Not supervised by radiologist): MIP and/or 3D reconstructed images were created by the technologist. Radiation optimization: All CT scans at this facility use at least one of these dose optimization techniques: automated exposure control; mA and/or kV adjustment per patient size (includes targeted exams where dose is matched to clinical indication); or iterative reconstruction. Contrast material: OMNI 350; Contrast volume: 82 ml; Contrast route: INTRAVENOUS (IV); COMPARISON: CT angio chest PE protcl [id number] 03/28/2022 10:49 PM RADIATION DOSE METRICS: Total DLP (mGy-cm): 382.32 FINDINGS: Tubes, catheters and devices: There is a left subclavian pacemaker seen with generator device in the left subclavicular region. Pulmonary arteries: No CT evidence for segmental pulmonary emboli. The main pulmonary arteries and outflow trunk are unremarkable. Aorta: There is poor contrast opacification of the thoracic aorta, which limits assessment for thoracic aortic dissection. There is no thoracic aortic aneurysm. Trachea: The central airway is normal. Lungs: There are normal lung volumes. Mild dependent atelectasis is seen. No areas of consolidation or pneumonia. No CT evidence of interstitial lung disease. Pleural spaces: No pneumothorax. No pleural effusion. Heart: There is unchanged minimal cardiomegaly. No pericardial effusion. Minimal left anterior descending coronary arterial atherosclerotic vascular calcifications. Lymph nodes: No enlarged lymph nodes. Some calcified infrahilar lymph nodes are seen, representing old granulomatous disease. Bones/joints: No acute osseous abnormalities. Soft tissues: Unremarkable. Other findings: Status post prior cholecystectomy. Low-attenuation is seen centrally in the visualized left kidney, suggestive of hydronephrosis. Dedicated imaging may be performed for complete assessment. Caudal right hepatic lobe subcapsular 2.9 x 3.4 cm lesion is seen. This was also seen on the prior CT dated December 28, 2021. CT/CT angio chest PE protcl [id number] IMPRESSION: 1. No CTA evidence of pulmonary embolism. Poor contrast opacification of the thoracic aorta, which limits assessment for thoracic aortic dissection. No thoracic aortic aneurysm seen. 2. No CT evidence of pneumonia. Mild dependent atelectasis. 3. Low-attenuation seen centrally in the visualized left kidney, suggestive of hydronephrosis. Dedicated imaging may be performed for complete assessment. 4. Caudal right hepatic lobe subcapsular 2.9 x 3.4 cm lesion. This was also seen on the prior CT dated December 28, 2021. Further assessment may be performed with MRI or biopsy.
[2022-05-22] MEDS: iohexol 350 mg/mL 100 mL Btl IV (05:51)
--- NOTE | 2022-05-22 06:56 | ECG_ITS ---
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 Measurements Intervals [place] Rate: 67 P: 62 CT: 166 QRS: -50 QRSD: 137 T: 7 QT: 475 QTc: 504 Interpretive Statements SINUS RHYTHM LEFT AXIS DEVIATION [QRS AXIS < -30] INTRAVENTRICULAR CONDUCTION DELAY [130+ ms QRS DURATION] Compared to ECG 05/22/2022 02:54:34 No significant changes Electronically Signed On 05-23-2022 17:47:58 CDT by Pola Ferrera M.D. [email or web address] Musiccovington county hospitalWintegratrinity [facility] system [facility] campus.[place]/store/OM/[id number]
[2022-05-22 07:45] LABS: Troponin 5 6HR 9.96 ng/L (0-10)
[2022-05-22 08:13] LABS: Troponin 5 6HR Delta -0.04 ng/L (0-12)
== END 2022-05-22 07:46 | disposition home or self-care (01) ==
PROVIDERS: Emergency Medicine; Emergency Provider Family Medicine; PCP Family Medicine
DX: R07.9 Chest pain, unspecified (principal); R06.02 Shortness of breath; Z95.810 Presence of automatic (implantable) cardiac defibrillator; Z79.82 Long term (current) use of aspirin; F17.210 Nicotine dependence, cigarettes, uncomplicated; I11.0 Hypertensive heart disease with heart failure; I50.9 Heart failure, unspecified; Z86.73 Personal history of transient ischemic attack (TIA), and cerebral infarction without residual deficits
CPT/HCPCS: 36415; 71045; 71275; 80053; 83690; 83880; 84484; 85025; 93005; 94640; 96374; 96375; 99285; J1885; J7050; Q9967

== ENCOUNTER → 2022-05-30 14:07 | Outpatient (BNVA) | payer MEDICARE, MEDICAID, SELFPAY | PROVIDERS: PCP Family Medicine; Visit Provider Nurse Practitioner Family | DX: I42.8 Other cardiomyopathies (principal); Z86.73 Personal history of transient ischemic attack (TIA), and cerebral infarction without residual deficits | CPT/HCPCS: 80048; 83880; 99214 ==

== ENCOUNTER 2022-06-04 08:51 | Emergency (ER) | payer MEDICARE, MEDICAID, SELFPAY ==
[2022-06-04 08:56] VITALS: BP 131/82; PULSE 108; RESP 17; TEMP 36.9; O2SAT 99; BMI 27.8
--- NOTE | 2022-06-04 09:05 | XRR_ITS ---
PROCEDURE INFORMATION: Exam: XR Chest Exam date and time: 06/04/2022 9:19 AM Age: 52 years old Clinical indication: Pain; Chest pressure; Prior surgery; Surgery type: Pacer; Additional info: Chest pain TECHNIQUE: Imaging protocol: Radiologic exam of the chest. Views: 1 view. COMPARISON: CR (CHEST, ) 05/22/2022 1:22 AM FINDINGS: Tubes, catheters and devices: Cardiac rhythm maintenance device is in place. Lungs: Unremarkable. No consolidation. Pleural spaces: Unremarkable. No pleural effusion. No pneumothorax. Heart/Mediastinum: Unremarkable. No cardiomegaly. Bones/joints: Unremarkable. XR/XR chest 1V portable [id number] IMPRESSION: No acute cardiopulmonary abnormality.
--- NOTE | 2022-06-04 09:05 | ECG_ITS ---
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 Measurements Intervals [place] Rate: 86 P: 47 MS: 157 QRS: -35 QRSD: 127 T: 44 QT: 413 QTc: 495 Interpretive Statements SINUS RHYTHM LEFT AXIS DEVIATION [QRS AXIS < -30] MODERATE INTRAVENTRICULAR CONDUCTION DELAY [105+ ms QRS DURATION, 80+ ms Q/S IN V1/V2, NO Q AND 60+ ms R IN I/aVL/V5/V6] MODERATE VOLTAGE CRITERIA FOR LVH, CONSIDER NORMAL VARIANT [MEETS CRITERIA IN ONE OF: R(aVL), S(V1), R(V5), R(V5/V6)+S(V1)] NONSPECIFIC T-WAVE ABNORMALITY Compared to ECG 05/22/2022 06:34:10 T-wave abnormality now present Electronically Signed On 06-04-2022 11:51:48 CDT by Michael Hill M.D. [email or web address] [email or web address] regional medical center.[place]/store/NU/[id number]
--- NOTE | 2022-06-04 09:34 | XRR_ITS ---
PROCEDURE INFORMATION: Exam: XR Left Ribs Exam date and time: 06/04/2022 9:45 AM Age: 52 years old Clinical indication: Injury or trauma; Fall; Rib area, left side; Blunt trauma; Additional info: L ant chest wall pain after fall TECHNIQUE: Imaging protocol: Radiologic exam of the Left ribs. Views: 2 views. COMPARISON: CR (CHEST, ) 06/04/2022 9:19 AM FINDINGS: Bones/joints: Acute minimally displaced left lateral 6th rib fracture. Soft tissues: Normal. XR/XR ribs LT 2V* [id number] IMPRESSION: Acute minimally displaced left lateral 6th rib fracture.
--- NOTE | 2022-06-04 09:35 | ED_ITS ---
HPI - Chest Pain General: Chief Complaint: Chest Pain Stated Complaint: CHEST PAIN Time Seen by Provider: 06/04/22 08:59 Source: patient Mode of arrival: EMS Limitations: no limitations History of Present Illness: 52-year-old female presents emergency room with complaint of left-sided chest pain. Pain began this morning while she was lying in bed. Few days ago she had fallen and hurt her left ribs at the anterior axillary line are still exquisitely painful. She has not had any fever sweats chills productive cough. She has pain with deep inspiration but has not had any exertional pain had not been having any pain leading up to this. Patient is a history of idiopathic cardiomyopathy which has been quite severe she has a ICD in place. According to her cardiology office notes it is a nonischemic cardiomyopathy. Patient does not have diabetes but she does still smoke. Earlier this month patient had a Lexiscan sestamibi stress test which shows a large fixed perfusion abnormality with no evidence of current ischemia. There was severe global hypokinesis. Study did not show any evidence of coronary ischemia at this time. MD complaint: chest pain Onset (ago): day(s) Timing of current episode: episodic Prior episodes: Yes Onset: during rest Pain location: left chest Pain radiation: none Severity: severe Quality: sharp Relieving factors: rest Exacerbating factors: palpation and movement Context: trauma/injury Associated symptoms: Deny abdominal pain, diaphoresis, dyspnea, fever(s), leg edema, nausea, palpitations, sense of impending doom, syncope or vomiting Treatment prior to arrival: none Review of Systems Const: Denies: fever(s), chills, fatigue, malaise or diaphoresis ENMT: Denies: throat pain, ear or mastoid pain, nasal discharge or nasal congestion Card: Reports: chest pain; Denies: palpitations, irregular heart rhythm, edema, swelling of feet/ankles or syncope Resp: Denies: dyspnea GI: Denies: abdominal pain, nausea or vomiting : Denies: flank pain, difficulty voiding, dysuria, urinary frequency or urinary urgency Skin/Breast: Denies: rash or pruritus REPLACED BY [facility] PFSH: Medical History CHF (congestive heart failure) Related to nonischemic cardiomyopathy, most recent ejection fraction with with EF 42%. History of recurrent UTIs History of TIA (transient ischemic attack) HTN (hypertension) ICD (implantable cardioverter-defibrillator) in place Mass of right lobe of liver ~3.5 x 4 cm, indeterminant, hypodense, first noted 11/2021 Nonischemic cardiomyopathy Specific etiology unknown, may have been viral or related to uncontrolled hypertension from her recollection Echocardiogram November 2021 with ejection fraction of 42% - 05/17/22 echo EF now 25% Obstructive pyelonephritis (~11/2021) Renal stones Ureteral calculus Surgical History S/P ureteral stent placement (~11/2021) Status post cholecystectomy Status post placement of cardiac pacemaker Family History Father , AT AGE 77 CAD (coronary artery disease) Cancer lung cancer Mother , AT AGE 60 Cancer OVARIAN Denies family history of Clotting disorder Anesthesia complication Bleeding disorder Social History Smoking and tobacco status: current every day smoker cigarettes Packs smoked per day: 0.5 Years cigarettes smoked: 45 Second hand smoke exposure: Yes Alcohol intake: current Lives independently: Yes Marital status: service: No Current occupational status: disabled Current gender identity: Female Physical Exam Const: GENERAL APPEARANCE: cooperative and comfortable OR IENTATION/CONSCIOUSNESS: Yes awake, Yes oriented to person, Yes oriented to place and Yes oriented to time HENMT: COMMON NORMALS: normocephalic, atraumatic and hearing grossly normal bilaterally HEAD & SCALP: normocephalic and atraumatic Chest: CHEST: Yes localized rib tenderness with anteroposterior compression (Lower ribs at the anterior axillary line on the left) Resp: COMMON NORMALS: normal respiratory effort, No retractions, No use of accessory muscles and clear to auscultation bilaterally AUSCULTATION: clear to auscultation bilaterally Cardio: COMMON NORMALS: regular rate, regular rhythm and No murmurs present (Cardio) RATE: regular rate RHYTHM: regular rhythm GI: COMMON NORMALS: Soft to palpation and No hepatosplenomegaly present AUSCULTATION: Yes normoactive bowel sounds PALPATION: Yes Soft to palpation, No Tenderness to palpation present (GI), No Guarding due to palpation present (GI) and Yes No hepatosplenomegaly present Extremity: COMMON NORMALS: normal to inspection, capillary refill normal, no clubbing, cyanosis or edema, no calf tenderness and no pedal edema Neuro: SENSORIUM/ORIENTATION: Yes oriented to person, Yes oriented to place and Yes oriented to time Skin: COMMON NORMALS: no rashes or lesions noted GENERAL SKIN EXAM: no rashes or lesions noted Course Vital Signs: Vital signs: Vital Signs Temperature 98.4 F 06/04/22 08:56 Pulse Rate 78 06/04/22 11:54 Respiratory Rate 18 06/04/22 11:54 Blood Pressure 114/68 06/04/22 11:54 Pulse Oximetry 95 06/04/22 11:54 Oxygen Delivery Me thod 06/04/22 08:56 MDM - Chest Pain Medical Decision Making Rib fracture from fall. Likely displaced while sleeping last night which would account for worsening pain EKG labs reviewed no acute findings discharged home with pain control Medical Records I reviewed the patient's medical records. Lab Data I reviewed the patient's lab results. : 06/04/22 09:25 06/04/22 09:25 Radiology Impressions Chest X-Ray 06/04/22 09:05 IMPRESSION: No acute cardiopulmonary abnormality. Ribs X-Ray 06/04/22 09:34 IMPRESSION: Acute minimally displaced left lateral 6th rib fracture. Laboratory Results WBC 7.6 10^3/uL (4.0-10.0) 06/04/22 09:25 RBC 3.43 10^6/uL (4.1-5.3) L 06/04/22 09:25 Hgb 11.6 g/dL (11.5-15.3) 06/04/22 09:25 Hct 35.6 % (37.0-47.0) L 06/04/22 09:25 MCV 103.8 fl (81-99) H 06/04/22 09:25 MCH 33.8 pg (28.0-34.0) 06/04/22 09:25 MCHC 32.6 g/dL (30.0-36.0) 06/04/22 09:25 RDW 12.4 % (12.1-15.1) 06/04/22 09:25 Plt Count 204 10^3/cmm (130-400) 06/04/22 09:25 MPV 11.3 fL (7.4-10.4) H 06/04/22 09:25 Neut % (Auto) 68.3 % 06/04/22 09:25 Lymph % (Auto) 22.0 % 06/04/22 09:25 [place] % (Auto) 5.3 % 06/04/22 09:25 Eos % (Auto) 3.2 % 06/04/22 09:25 Baso % (Auto) 0.8 % 06/04/22 09:25 Neut # (Auto) 5.18 10^3/uL (1.8-7.7) 06/04/22 09:25 Lymph # (Auto) 1.7 10^3/uL (0.8-4.8) 06/04/22 09:25 [place] # (Auto) 0.4 10^3/uL (0.2-0.9) 06/04/22 09:25 Eos # (Auto) 0.2 10^3/uL (0.0-0.8) 06/04/22 09:25 Baso # (Auto) 0.1 10^3/uL (0.0-0.1) 06/04/22 09:25 Nucleated RBC % (auto) 0 % 06/04/22 09:25 Nucleated RBCs # 0.0 /100WBC 06/04/22 09:25 Sodium 141 mmol/L (136-145) 06/04/22 09:25 Potassium 4.6 mmol/L (3.5-5.1) 06/04/22 09:25 Chloride 107 mmol/L (98-107) 06/04/22 09:25 Carbon Dioxide 24 mmol/L (22-29) 06/04/22 09:25 Anion Gap 14.6 (5-19) 06/04/22 09:25 BUN 22 mg/dL (6-20) H 06/04/22 09:25 Creatinine 1.2 mg/dL (0.5-0.9) H 06/04/22 09:25 GFR Calculation 47.2 mL/min (90-130) L 06/04/22 09:25 Glucose 91 mg/dL (65-115) 06/04/22 09:25 Calculated Osmolality 295 mOsm/kg (285-295) 06/04/22 09:25 Calcium 8.9 mg/dL (8.5-10.5) 06/04/22 09:25 Total Bilirubin 0.3 mg/dL (0.15-1.2) 06/04/22 09:25 AST 12 U/L (0-32) 06/04/22 09:25 ALT 10 U/L (0-33) 06/04/22 09:25 Alkaline Phosphatase 129 U/L (35-105) H 06/04/22 09:25 Troponin T Baseline 10 ng/L (0-10) 06/04/22 09:25 Troponin T 120 Minute 8.90 ng/L (0-10) 06/04/22 11:28 Delta Troponin T -1.1 ABS# (0-10) L 06/04/22 11:28 Total Protein 6.3 g/dL (6.6-8.7) L 06/04/22 09:25 Albumin 3.8 g/dL (3.5-5.2) 06/04/22 09:25 Globulin 2.5 g/dL (1.3-4.6) 06/04/22 09:25 Discharge Plan Discharge Patient Disposition: Home Clinical Impression: Fracture of rib Condition: Stable Prescriptions: New hydrocodone-acetaminophen 5-325 mg tablet 1 tab PO Q6H PRN (Reason: pain) Qty: 20 0RF No Action citalopram [Celexa] 40 mg tablet 40 mg PO QAM zolpidem 10 mg tablet 10 mg PO BEDTIME aspirin [Adult Low Dose Aspirin] 81 mg tablet,delayed release (DR/EC) 162 mg PO QAM Hold Instructions: Resume on 04/26/22. Resume after 30 days of full dose aspirin nitroglycerin [Nitrostat] 0.4 mg tablet, sublingual 0.4 mg SUBLINGUAL Q5M PRN (Reason: chest pain) Qty: 25 3RF ferrous sulfate 325 mg (65 mg iron) tablet 325 mg PO QAM Vitamin B-12 50 mcg Tablet 50 mcg PO QAM montelukast 10 mg tablet 10 mg PO QAM levalbuterol tartrate 45 mcg/actuation Hfa Aerosol Inhaler 2 inh INHALATION Q6H PRN (Reason: Shortness Of Breath) Flomax 0.4 mg Capsule 0.4 mg PO BEDTIME PRN (Reason: kidney stones) pantoprazole 40 mg Tablet,Delayed Release (Dr/Ec) 40 mg PO DAILY 30 Days Qty: 30 0RF Entresto 24-26 mg Tablet 1 tab PO BID 30 Days Qty: 60 0RF carvedilol 25 mg tablet 12.5 mg PO BID Qty: 60 4RF Lasix 20 mg tablet 20 mg PO DAILY PRN (Reason: edema) Qty: 30 0RF Discharge Orders: Discharge ED (Routine); Ordered 06/04/22 Ordered By: Abiodun Stone Referrals: Elena Gray MD [Primary Care Provider] - Discharge Diet: Usual diet Discharge Activity: Increase activity as tolerated Patient Instructions: Opioid Safety Activity Restrictions/Additional Instructions: Follow-up with your primary care doctor within the next 4 to 5 days. Coding Level of Care Code ED Supervisor Assembly Room for Wesley Herrera
[2022-06-04 09:40] LABS: Basophils # 0.1 10^3/uL (0.0-0.1); Basophils % 0.8 %; Eosinophils # 0.2 10^3/uL (0.0-0.8); Eosinophils % 3.2 %; Hematocrit 35.6 % (37.0-47.0); Hemoglobin 11.6 g/dL (11.5-15.3); Lymphocytes # 1.7 10^3/uL (0.8-4.8); Mean Corpuscular HGB Conc 32.6 g/dL (30.0-36.0); Mean Corpuscular Hemoglobin 33.8 pg (28.0-34.0); Mean Corpuscular Volume 103.8 fl (81-99); Mean Platelet Volume 11.3 fL (7.4-10.4); Monocytes # 0.4 10^3/uL (0.2-0.9); Monocytes % 5.3 %; Neutrophils # 5.18 10^3/uL (1.8-7.7); Neutrophils % 68.3 %; Nucleated Red Blood Cells % 0 %; Platelet Count 204 10^3/cmm (130-400); Red Blood Count 3.43 10^6/uL (4.1-5.3); Red Cell Distribution Width 12.4 % (12.1-15.1); White Blood Count 7.6 10^3/uL (4.0-10.0)
[2022-06-04 10:01] LABS: Troponin(5th) Baseline 10 ng/L (0-10)
[2022-06-04 10:03] LABS: Alanine Aminotransferase 10 U/L (0-33); Albumin Level 3.8 g/dL (3.5-5.2); Anion Gap 14.6 (5-19); Aspartate Amino Transferase 12 U/L (0-32); Calcium 8.9 mg/dL (8.5-10.5); Carbon Dioxide 24 mmol/L (22-29); Chloride 107 mmol/L (98-107); Globulin 2.5 g/dL (1.3-4.6); Glucose 91 mg/dL (65-115); Osmolality Calculated 295 mOsm/kg (285-295); Potassium 4.6 mmol/L (3.5-5.1); Sodium 141 mmol/L (136-145); Total Bilirubin 0.3 mg/dL (0.15-1.2)
[2022-06-04 10:12] LABS: Alkaline Phosphatase 129 U/L (35-105); Blood Urea Nitrogen 22 mg/dL (6-20); Creatinine Clr Calc Pharmacy 55.8403; Glomerular Filtration Rate 47.2 mL/min (90-130); Total Protein 6.3 g/dL (6.6-8.7)
[2022-06-04 11:12] VITALS: RESP 15; O2SAT 95
[2022-06-04] MEDS: morphine 4 mg/mL SDV 1 mL IVP (11:12)
--- NOTE | 2022-06-04 11:12 | ECG_ITS ---
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 Measurements Intervals [place] Rate: 75 P: 144 [place]: 154 QRS: 222 QRSD: 128 T: 183 QT: 457 QTc: 513 Interpretive Statements SINUS RHYTHM ARM LEADS REVERSED [INVERTED P AND QRS IN I] Nonspecific IVCD Compared to ECG 06/04/2022 08:58:06 Left-axis deviation no longer present T-wave abnormality no longer present Electronically Signed On 06-04-2022 11:56:21 CDT by Michael Hill M.D. [email or web address] health [email or web address] memorial [email or web address]/[id number]
[2022-06-04] MEDS: promethazine 25 mg/mL SDV 1 mL IM (11:13)
[2022-06-04 11:54] VITALS: BP 114/68; PULSE 78; RESP 18; O2SAT 95
[2022-06-04 13:00] LABS: Troponin 5 2HR Delta -1.1 ABS# (0-10)
== END 2022-06-04 11:57 | disposition home or self-care (01) ==
PROVIDERS: Emergency Provider Family Medicine; PCP Family Medicine
DX: S22.32XA Fracture of one rib, left side, initial encounter for closed fracture (principal); Z79.82 Long term (current) use of aspirin; I11.0 Hypertensive heart disease with heart failure; I50.9 Heart failure, unspecified; Z86.73 Personal history of transient ischemic attack (TIA), and cerebral infarction without residual deficits; Z95.810 Presence of automatic (implantable) cardiac defibrillator; F17.210 Nicotine dependence, cigarettes, uncomplicated; W19.XXXA Unspecified fall, initial encounter
CPT/HCPCS: 36415; 71045; 71100; 80053; 84484; 85025; 93005; 96372; 96374; 99285; J2270; J2550

== ENCOUNTER 2022-06-18 08:40 | Emergency (ER) | payer MEDICARE, MEDICAID, SELFPAY ==
[2022-06-18 08:46] VITALS: BP 128/65; PULSE 93; RESP 16; TEMP 36.8; O2SAT 93; BMI 27.4
--- NOTE | 2022-06-18 08:51 | XRR_ITS ---
PROCEDURE INFORMATION: Exam: XR Left Ribs with PA Chest Exam date and time: 06/18/2022 9:08 AM Age: 52 years old Clinical indication: Pain in mid left ribs. Pacemaker. Her fractures. TECHNIQUE: Imaging protocol: Radiologic exam of the Left ribs with PA chest. Views: 3 views COMPARISON: CR (CHEST, ) 06/04/2022 9:45 AM FINDINGS: Tubes, catheters and devices: A left subclavian AICD is again seen. Lungs: Subsegmental atelectasis or scarring at the left base. There is hazy opacity at the right base that could reflect atelectasis or developing pneumonia. Pleural spaces: No pleural effusion. No pneumothorax. Heart/Mediastinum: Cardiac silhouette is approximately unchanged. No gross evidence of pneumomediastinum. Bones/joints: There are nondisplaced fractures involving the posterolateral left 5th and 6th ribs. Possible fracture involving the posterolateral left 4th rib. XR/XR ribs LT mn 3V w CXR1V [id number] IMPRESSION: 1. Nondisplaced fractures involving the posterolateral left 5th and 6th ribs. Possible fracture involving the posterolateral left 4th rib. 2. Hazy opacity at the right base that could reflect atelectasis or developing pneumonia.
--- NOTE | 2022-06-18 08:59 | ECG_ITS ---
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 Measurements Intervals [place] Rate: 88 P: 54 NE: 153 QRS: -42 QRSD: 133 T: 17 QT: 427 QTc: 518 Interpretive Statements SINUS RHYTHM LEFT AXIS DEVIATION [QRS AXIS < -30] INTRAVENTRICULAR CONDUCTION DELAY [130+ ms QRS DURATION] MINIMAL VOLTAGE CRITERIA FOR LVH, CONSIDER NORMAL VARIANT [MEETS CRITERIA IN ONE OF: R(aVL), S(V1), R(V5), R(V5/V6)+S(V1)] Compared to ECG 06/04/2022 11:12:36 Left-axis deviation now present Electronically Signed On 06-19-2022 13:20:51 CDT by Pola Ferrera M.D. [id number]
[2022-06-18 09:02] LABS: Basophils # 0.1 10^3/uL (0.0-0.1); Basophils % 1.3 %; Eosinophils # 0.3 10^3/uL (0.0-0.8); Eosinophils % 4.2 %; Hematocrit 36.4 % (37.0-47.0); Hemoglobin 11.1 g/dL (11.5-15.3); Lymphocytes # 1.5 10^3/uL (0.8-4.8); Lymphocytes % 18.5 %; Mean Corpuscular HGB Conc 30.5 g/dL (30.0-36.0); Mean Corpuscular Volume 111.7 fl (81-99); Mean Platelet Volume 11.8 fL (7.4-10.4); Monocytes # 0.3 10^3/uL (0.2-0.9); Monocytes % 3.9 %; Neutrophils # 5.72 10^3/uL (1.8-7.7); Neutrophils % 71.8 %; Nucleated Red Blood Cells % 0 %; Platelet Count 160 10^3/cmm (130-400); Red Blood Count 3.26 10^6/uL (4.1-5.3); Red Cell Distribution Width 12.9 % (12.1-15.1)
[2022-06-18 09:12] VITALS: RESP 16
[2022-06-18] MEDS: ondansetron 2 mg/ML SDV 2 mL 4 MG IVP (09:12)
[2022-06-18] MEDS: morphine 4 mg/mL SDV 1 mL IVP (09:12)
[2022-06-18 09:21] LABS: Troponin(5th) Baseline 9 ng/L (0-10)
--- NOTE | 2022-06-18 09:23 | ED_ITS ---
HPI - Chest Pain General: Chief Complaint: Chest Pain Stated Complaint: chest pain Time Seen by Provider: 06/18/22 08:49 Source: patient Mode of arrival: ambulatory History of Present Illness: 52-year-old female presents emergency room complaining of chest pain. She was seen recently and found to have left lateral rib fractures today states she had chest pain that began while at rest she has a history of severe ischemic cardiomyopathy. She had a stress Lexiscan sestamibi stress test done in May 18, 2022 which was negative for any ischemia. They have been treating her with medical management.She had a CTA of the chest on 814 which was also negative for acute PE. Discomfort is having now is worse with inspiration. MD complaint: chest pain Onset (ago): hour(s) Timing of current episode: episodic Prior episodes: Yes Onset: during rest Pain location: substernal Pain radiation: back Severity: mild Quality: sharp Relieving factors: nothing Exacerbating factors: inspiration Context: trauma/injury (Left rib fractures) Associated symptoms: Deny abdominal pain, diaphoresis, dyspnea, fever(s), leg edema, nausea, palpitations, sense of impending doom, syncope or vomiting Treatment prior to arrival: none Review of Systems Const: Denies: fever(s), chills, fatigue, malaise or diaphoresis ENMT: Denies: throat pain, ear or mastoid pain, nasal discharge or nasal congestion Card: Reports: chest pain; Denies: palpitations, irregular heart rhythm, edema or syncope Resp: Denies: dyspnea GI: Denies: abdominal pain, nausea or vomiting : Denies: flank pain, difficulty voiding, dysuria, urinary frequency or u rinary urgency Skin/Breast: Denies: rash or pruritus PFSH ED PFSH: Medical History CHF (congestive heart failure) Related to nonischemic cardiomyopathy, most recent ejection fraction with with EF 42%. History of recurrent UTIs History of TIA (transient ischemic attack) HTN (hypertension) ICD (implantable cardioverter-defibrillator) in place Mass of right lobe of liver ~3.5 x 4 cm, indeterminant, hypodense, first noted 11/2021 Nonischemic cardiomyopathy Specific etiology unknown, may have been viral or related to uncontrolled hypertension from her recollection Echocardiogram November 2021 with ejection fraction of 42% - 05/17/22 echo EF now 25% Obstructive pyelonephritis (~11/2021) Renal stones Ureteral calculus Surgical History S/P ureteral stent placement (~11/2021) Status post cholecystectomy Status post placement of cardiac pacemaker Family History Father , AT AGE 77 CAD (coronary artery disease) Cancer lung cancer Mother , AT AGE 60 Cancer OVARIAN Denies family history of Clotting disorder Anesthesia complication Bleeding disorder Social History Smoking and tobacco status: current every day smoker cigarettes Packs smoked per day: 0.5 Years cigarettes smoked: 45 Second hand smoke exposure: Yes Alcohol intake: current Lives independently: Yes Marital status: service: No Current occupational status: disabled Current gender identity: Female Physical Exam Const: COMMON NORMALS: no acute distress GENERAL APPEARANCE: cooperative and comfortable ORIENTATION/CONSCIOUSNESS: Yes awake, Yes oriented to person, Yes oriented to place and Yes oriented to time HENMT: COMMON NORMALS: normocephalic, atraumatic and hearing grossly normal bilaterally HEAD & SCALP: normocephalic and atraumatic Chest: OTHER: Pain with palpation along the left anterior axillary line lower chest wall area of the known rib fractures no subcutaneous emphysema good breath sounds in that area. Resp: COMMON NORMALS: normal respiratory effort, No retractions, No use of accessory muscles and clear to auscultation bilaterally AUSCULTATION: clear to auscultation bilaterally Cardio: COMMON NORMALS: regular rate, regular rhythm and No murmurs present (Cardio) RATE: regular rate RHYTHM: regular rhythm GI: COMMON NORMALS: Soft to palpation and No hepatosplenomegaly present AUSCULTATION: Yes normoactive bowel sounds PALPATION: Yes Soft to palpation, No Tenderness to palpation present (GI), No Guarding due to palpation present (GI) and Yes No hepatosplenomegaly present Extremity: COMMON NORMALS: normal to inspection, capillary refill normal, no clubbing, cyanosis or edema, no calf tenderness and no pedal edema Neuro: SENSORIUM/ORIENTATION: Yes oriented to person, Yes oriented to place and Yes oriented to time Skin: COMMON NORMALS: no rashes or lesions noted GENERAL SKIN EXAM: no rashes or lesions noted Course Vital Signs: Vital signs: Vital Signs Temperature 98.3 F 06/18/22 08:46 Pulse Rate 77 06/18/22 12:17 Respiratory Rate 21 H 06/18/22 12:17 Blood Pressure 128/75 06/18/22 12:17 Pulse Oximetry 93 06/18/22 12:21 Oxygen Delivery Me thod 06/18/22 12:17 Oxygen Flow Rate 3 06/18/22 10:11 MDM - Chest Pain Medical Decision Making Mild basilar pneumonia. Patient has underlying cardiomyopathy now with pneumonia and the rib fractures is not setting as well but otherwise vital signs are stable white count is normal we will [place] discharge patient home on Levaquin is given first dose IV here we will also set her up for home oxygen. Follow-up with primary care doctor next week return if has problems Medical Records I reviewed the patient's medical records. Lab Data I reviewed the patient's lab results. : 06/18/22 08:53 06/18/22 09:22 Radiology Impressions Ribs X-Ray 06/18/22 08:51 IMPRESSION: 1. Nondisplaced fractures involving the posterolateral left 5th and 6th ribs. Possible fracture involving the posterolateral left 4th rib. 2. Hazy opacity at the right base that could reflect atelectasis or developing pneumonia. Laboratory Results WBC 8.0 10^3/uL (4.0-10.0) 06/18/22 08:53 RBC 3.26 10^6/uL (4.1-5.3) L 06/18/22 08:53 Hgb 11.1 g/dL (11.5-15.3) L 06/18/22 08:53 Hct 36.4 % (37.0-47.0) L 06/18/22 08:53 MCV 111.7 fl (81-99) H 06/18/22 08:53 MCH 34.0 pg (28.0-34.0) 06/18/22 08:53 MCHC 30.5 g/dL (30.0-36.0) 06/18/22 08:53 RDW 12.9 % (12.1-15.1) 06/18/22 08:53 Plt Count 160 10^3/cmm (130-400) 06/18/22 08:53 MPV 11.8 fL (7.4-10.4) H 06/18/22 08:53 Neut % (Auto) 71.8 % 06/18/22 08:53 Lymph % (Auto) 18.5 % 06/18/22 08:53 [place] % (Auto) 3.9 % 06/18/22 08:53 Eos % (Auto) 4.2 % 06/18/22 08:53 Baso % (Auto) 1.3 % 06/18/22 08:53 Neut # (Auto) 5.72 10^3/uL (1.8-7.7) 06/18/22 08:53 Lymph # (Auto) 1.5 10^3/uL (0.8-4.8) 06/18/22 08:53 [place] # (Auto) 0.3 10^3/uL (0.2-0.9) 06/18/22 08:53 Eos # (Auto) 0.3 10^3/uL (0.0-0.8) 06/18/22 08:53 Baso # (Auto) 0.1 10^3/uL (0.0-0.1) 06/18/22 08:53 Nucleated RBC % (auto) 0 % 06/18/22 08:53 Nucleated RBCs # 0.0 /100WBC 06/18/22 08:53 Sodium 141 mmol/L (136-145) 06/18/22 09:22 Potassium 4.5 mmol/L (3.5-5.1) 06/18/22 09:22 Chloride 110 mmol/L (98-107) H 06/18/22 09:22 Carbon Dioxide 22 mmol/L (22-29) 06/18/22 09:22 Anion Gap 13.5 (5-19) 06/18/22 09:22 BUN 24 mg/dL (6-20) H 06/18/22 09:22 Creatinine 1.5 mg/dL (0.5-0.9) H 06/18/22 09:22 GFR Calculation 36.5 mL/min (90-130) L 06/18/22 09:22 Glucose 86 mg/dL (65-115) 06/18/22 09:22 Calculated Osmolality 295 mOsm/kg (285-295) 06/18/22 09:22 Calcium 8.7 mg/dL (8.5-10.5) 06/18/22 09:22 Total Bilirubin 0.3 mg/dL (0.15-1.2) 06/18/22 09:22 AST 16 U/L (0-32) 06/18/22 09:22 ALT 12 U/L (0-33) 06/18/22 09:22 Alkaline Phosphatase 147 U/L (35-105) H 06/18/22 09:22 Troponin T Baseline 9 ng/L (0-10) 06/18/22 08:53 Troponin T 120 Minute 10.51 ng/L (0-10) H 06/18/22 10:46 Delta Troponin T 1.51 ABS# (0-10) 06/18/22 10:46 Total Protein 6.2 g/dL (6.6-8.7) L 06/18/22 09:22 Albumin 3.5 g/dL (3.5-5.2) 06/18/22 09:22 Globulin 2.7 g/dL (1.3-4.6) 06/18/22 09:22 Discharge Plan Discharge Patient Disposition: Home Clinical Impression: Fracture of rib, Nonischemic cardiomyopathy, Pneumonia Condition: Stable Prescriptions: New levofloxacin 500 mg tablet 500 mg PO DAILY 7 Days Qty: 7 0RF No Action citalopram [Celexa] 40 mg tablet 40 mg PO QAM zolpidem 10 mg tablet 10 mg PO BEDTIME aspirin [Adult Low Dose Aspirin] 81 mg tablet,delayed release (DR/EC) 162 mg PO QAM Hold Instructions: Resume on 04/26/22. Resume after 30 days of full dose aspirin nitroglycerin [Nitrostat] 0.4 mg tablet, sublingual 0.4 mg SUBLINGUAL Q5M PRN (Reason: chest pain) Qty: 25 3RF ferrous sulfate 325 mg (65 mg iron) tablet 325 mg PO QAM Entresto 24-26 mg tablet 1 tab PO BID Qty: 60 3RF Vitamin B-12 50 mcg Tablet 50 mcg PO QAM montelukast 10 mg tablet 10 mg PO QAM levalbuterol tartrate 45 mcg/actuation Hfa Aerosol Inhaler 2 inh INHALATION Q6H PRN (Reason: Shortness Of Breath) Flomax 0.4 mg Capsule 0.4 mg PO BEDTIME PRN (Reason: kidney stones) pantoprazole 40 mg Tablet,Delayed Release (Dr/Ec) 40 mg PO DAILY 30 Days Qty: 30 0RF carvedilol 25 mg tablet 12.5 mg PO BID Qty: 60 4RF Lasix 20 mg tablet 20 mg PO DAILY PRN (Reason: edema) Qty: 30 0RF hydrocodone-acetaminophen 5-325 mg tablet 1 tab PO Q6H PRN (Reason: pain) Qty: 20 0RF Discharge Orders: Discharge ED (Routine); Ordered 06/18/22 Ordered By: Abiodun Stone Other Ambulatory Orders: DME: Oxygen (Order) Location: None Selected Ordered By: Abiodun Stone Referrals: Elena Gray MD [Primary Care Provider] - Discharge Diet: Usual diet Discharge Activity: Limit activity as instructed Patient Instructions: Opioid Safety Activity Restrictions/Additional Instructions: Follow-up with your doctor within the next week. Coding Level of Care Code ED Greige Goods Examiner for Chg Fwd Exam Detailed
--- NOTE | 2022-06-18 09:35 | ECG_ITS ---
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 Measurements Intervals [place] Rate: 84 P: 48 ID: 160 QRS: -43 QRSD: 132 T: 6 QT: 440 QTc: 521 Interpretive Statements SINUS RHYTHM LEFT AXIS DEVIATION [QRS AXIS < -30] INTRAVENTRICULAR CONDUCTION DELAY [130+ ms QRS DURATION] POSSIBLE LEFT VENTRICULAR HYPERTROPHY [VOLTAGE CRITERIA PLUS LAE OR QRS WIDENING] Compared to ECG 06/18/2022 08:59:36 No significant changes Electronically Signed On 06-19-2022 13:20:47 CDT by Pola Ferrera M.D. [id number]
[2022-06-18] MEDS: lidocaine 2% viscous 15 ML, aluminum-mag hydrox-simethicon 30 ML, sucralfate oral liq 1 GM PO (09:54)
[2022-06-18 10:00] LABS: Alanine Aminotransferase 12 U/L (0-33); Albumin Level 3.5 g/dL (3.5-5.2); Alkaline Phosphatase 147 U/L (35-105); Anion Gap 13.5 (5-19); Aspartate Amino Transferase 16 U/L (0-32); Blood Urea Nitrogen 24 mg/dL (6-20); Calcium 8.7 mg/dL (8.5-10.5); Carbon Dioxide 22 mmol/L (22-29); Chloride 110 mmol/L (98-107); Globulin 2.7 g/dL (1.3-4.6); Glomerular Filtration Rate 36.5 mL/min (90-130); Glucose 86 mg/dL (65-115); Osmolality Calculated 295 mOsm/kg (285-295); Potassium 4.5 mmol/L (3.5-5.1); Sodium 141 mmol/L (136-145); Total Bilirubin 0.3 mg/dL (0.15-1.2); Total Protein 6.2 g/dL (6.6-8.7)
[2022-06-18 10:11] VITALS: BP 141/88; PULSE 88; RESP 18; O2SAT 97
[2022-06-18] MEDS: ketorolac 30 mg/mL INJ IVP (10:21)
[2022-06-18] MEDS: levofloxacin-dextrose 5 % 750 MG/150 ML PREMIX 100 MG IV (10:46)
--- NOTE | 2022-06-18 10:52 | ECG_ITS ---
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 Measurements Intervals [place] Rate: 87 P: 53 NE: 157 QRS: -46 QRSD: 129 T: 47 QT: 419 QTc: 506 Interpretive Statements SINUS RHYTHM LEFT AXIS DEVIATION [QRS AXIS < -30] MODERATE INTRAVENTRICULAR CONDUCTION DELAY [105+ ms QRS DURATION, 80+ ms Q/S IN V1/V2, NO Q AND 60+ ms R IN I/aVL/V5/V6] MODERATE VOLTAGE CRITERIA FOR LVH, CONSIDER NORMAL VARIANT [MEETS CRITERIA IN ONE OF: R(aVL), S(V1), R(V5), R(V5/V6)+S(V1)] Compared to ECG 06/18/2022 09:35:59 No significant changes Electronically Signed On 06-19-2022 13:29:42 CDT by Pola Ferrera M.D. [id number]
[2022-06-18 11:22] LABS: Troponin 5 2HR 10.51 ng/L (0-10)
[2022-06-18 11:32] LABS: Troponin 5 2HR Delta 1.51 ABS# (0-10)
[2022-06-18] MEDS: promethazine 25 mg/mL SDV 1 mL IM (12:15)
[2022-06-18 12:17] VITALS: BP 128/75; PULSE 77; RESP 21; O2SAT 94
[2022-06-18 12:21] VITALS: O2SAT 93; O2SAT 94
[2022-06-18 12:54] VITALS: BP 155/45; PULSE 22; RESP 78; O2SAT 92
== END 2022-06-18 12:56 | disposition home or self-care (01) ==
PROVIDERS: Emergency Provider Family Medicine; PCP Family Medicine
DX: I42.8 Other cardiomyopathies (principal); J18.9 Pneumonia, unspecified organism; S22.42XA Multiple fractures of ribs, left side, initial encounter for closed fracture; Z79.82 Long term (current) use of aspirin; I11.0 Hypertensive heart disease with heart failure; I50.9 Heart failure, unspecified; Z86.73 Personal history of transient ischemic attack (TIA), and cerebral infarction without residual deficits; Z95.810 Presence of automatic (implantable) cardiac defibrillator; F17.210 Nicotine dependence, cigarettes, uncomplicated; X58.XXXA Exposure to other specified factors, initial encounter
CPT/HCPCS: 71101; 80053; 84484; 85025; 93005; 96365; 96366; 96372; 96375; 99285; J1885; J1956; J2270; J2405; J2550

== ENCOUNTER 2022-06-22 11:06 | Emergency (ER) | payer MEDICARE, MEDICAID, SELFPAY ==
[2022-06-22 11:15] VITALS: BP 98/58; PULSE 87; RESP 18; TEMP 36.7; O2SAT 96; BMI 27.4
--- NOTE | 2022-06-22 11:31 | XR_ITS ---
WS: [id number] XR chest 1V portable [id number] REASON FOR EXAM: pain and SOB FINDINGS: Cardiac device over the left chest with left subclavian transvenous lead to the right ventricular ape x. Thoracic aorta is within normal limits. The heart size is at the upper limits of normal. No acute pulmonary parenchymal or pleural abnormality is identified. The interstitial lung opacities seen in the lower lung flower on the examination of 06/18/2022 have resolved. No new findings. XR/XR chest 1V portable [id number] IMPRESSION: Resolution of previous lung abnormalities. No new acute abnormality identified.
[2022-06-22 12:15] LABS: Basophils # 0.1 10^3/uL (0.0-0.1); Basophils % 0.9 %; Eosinophils # 0.2 10^3/uL (0.0-0.8); Eosinophils % 3.1 %; Hematocrit 42.5 % (37.0-47.0); Hemoglobin 12.6 g/dL (11.5-15.3); Lymphocytes # 0.4 10^3/uL (0.8-4.8); Lymphocytes % 7.1 %; Mean Corpuscular HGB Conc 29.6 g/dL (30.0-36.0); Mean Corpuscular Hemoglobin 34.4 pg (28.0-34.0); Mean Corpuscular Volume 116.1 fl (81-99); Mean Platelet Volume 11.2 fL (7.4-10.4); Monocytes # 0.3 10^3/uL (0.2-0.9); Monocytes % 5.8 %; Neutrophils # 4.51 10^3/uL (1.8-7.7); Neutrophils % 82.4 %; Nucleated Red Blood Cells % 0 %; Platelet Count 156 10^3/cmm (130-400); Red Blood Count 3.66 10^6/uL (4.1-5.3); Red Cell Distribution Width 12.9 % (12.1-15.1); White Blood Count 5.5 10^3/uL (4.0-10.0)
[2022-06-22 12:25] LABS: Anion Gap 15.3 (5-19); Blood Urea Nitrogen 23 mg/dL (6-20); Carbon Dioxide 18 mmol/L (22-29); Chloride 107 mmol/L (98-107); Glomerular Filtration Rate 36.5 mL/min (90-130); Glucose 91 mg/dL (65-115); Osmolality Calculated 285 mOsm/kg (285-295); Potassium 4.3 mmol/L (3.5-5.1); Sodium 136 mmol/L (136-145)
--- NOTE | 2022-06-22 12:46 | ECG_ITS ---
[facility] Test Date: 2022-06-22 Pat Name: Elena Pulliam Department: Room: Gender: Female Solvent Recoverer: : 1970 Requested By: Amy Mckay Order Number: [id number] Arlette MD: Pola Ferrera M.D. Measurements Intervals [place] Rate: 91 P: 34 MD: 154 QRS: -38 QRSD: 128 T: 58 QT: 397 QTc: 490 Interpretive Statements SINUS RHYTHM LEFT AXIS DEVIATION [QRS AXIS < -30] LEFT BUNDLE BRANCH BLOCK [120+ ms QRS DURATION, 80+ ms Q/S IN V1/V2, 85+ ms R IN I/aVL/V5/V6] Compared to ECG 06/18/2022 10:32:37 Left bundle-branch block now present Intraventricular conduction delay no longer present Electronically Signed On 06-23-2022 10:35:53 CDT by Pola Ferrera M.D. [email or web address]/store/[id number]
--- NOTE | 2022-06-22 12:48 | PC.NURSE ---
PT WAS ORDERED TO BE PLACED ON CARDIAC MONITORING PER DR. DUMONT. CARDIAC MONITORING IS NOT AVAILABLE IN VERTICAL FLOW DR. DUMONT IS AWARE AT THIS TIME
[2022-06-22 12:58] LABS: Troponin(5th) Baseline 8 ng/L (0-10)
--- NOTE | 2022-06-22 12:58 | W.ED.GENADLT ---
HPI - General Adult General: Chief complaint: General Medical Stated complaint: SOB Time Seen by Provider: 06/22/22 12:04 History of Present Illness: Patient is a 52-year-old female who comes to the ED for recheck on pneumonia. Patient had a fall back on June 04 and was seen here in the ED and diagnosed with a rib fracture. She was then seen here in the ED again on June 18 and she was diagnosed with pneumonia and put on antibiotic. Patient endorses still having a cough and left rib pain. She says her cough is nonproductive. Denies any fever, chills, abdominal pain, nausea/vomiting, bladder or bowel symptoms. Associated symptoms: Deny chest pain, dyspnea, headache(s), nausea, rash, palpitations or vomiting Review of Systems Const: Denies: fever(s), chills or fatigue Eyes: Denies: change in vision or eye discomfort ENMT: Denies: throat pain, odynophagia, nasal discharge or nasal congestion Card: Denies: chest pain, palpitations, edema, swelling of feet/ankles, dyspnea on exertion or orthopnea Resp: Reports: non-productive cough and pain on inspiration (Left rib pain); Denies: dyspnea or productive cough GI: Denies: abdominal pain, nausea, vomiting, diarrhea, constipation or hematochezia : Denies: flank pain, dysuria or hematuria Musc: Denies: neck pain, back pain or extremity swelling Skin/Breast: Denies: rash or new lesions Neuro: Denies: headache(s), numbness in extremities or weakness in extremities [facility] ED PFSH: Medical History CHF (congestive heart failure) Related to nonischemic cardiomyopathy, most recent ejection fraction with with EF 42%. History of recurrent UTIs History of TIA (transient ischemic attack) HTN (hypertension) ICD (implantable cardioverter-defibrillator) in place Mass of right lobe of liver ~3.5 x 4 cm, indeterminant, hypodense, first noted 11/2021 Nonischemic cardiomyopathy Specific etiology unknown, may have been viral or related to uncontrolled hypertension from her recollection Echocardiogram November 2021 with ejection fraction of 42% - 05/17/22 echo EF now 25% Obstructive pyelonephritis (~11/2021) Renal stones Ureteral calculus Surgical History S/P ureteral stent placement (~11/2021) Status post cholecystectomy Status post placement of cardiac pacemaker Family History Father , AT AGE 77 CAD (coronary artery disease) Cancer lung cancer Mother , AT AGE 60 Cancer OVARIAN Denies family history of Clotting disorder Anesthesia complication Bleeding disorder Social History Smoking and tobacco status: current every day smoker cigarettes Packs smoked per day: 0.5 Years cigarettes smoked: 45 Second hand smoke exposure: Yes Alcohol intake: current Lives independently: Yes Marital status: service: No Current occupational status: disabled Current gender identity: Female Physical Exam Const: COMMON NORMALS: no acute distress, patient oriented x3 and alert GENERAL APPEARANCE: cooperative and comfortable HENMT: COMMON NORMALS: normocephalic HEAD & SCALP: normocephalic MOUTH: Normal oral and palatal mucosa present THROAT: posterior oropharynx normal and uvula midline Neck/C-Spine: COMMON NORMALS: supple GENERAL: Yes normal visual inspection Resp: COMMON NORMALS: normal respiratory effort, No retractions, No use of accessory muscles and clear to auscultation bilaterally AUSCULTATION: clear to auscultation bilaterally and diminished lung sounds bilateral in the lower lung flower Cardio: COMMON NORMALS: regular rate, regular rhythm, S1 normal heart sound present, S2 normal heart sound present, No gallops present (Cardio), No clicks present (Cardio), No murmurs present (Cardio) and Peripheral pulses 2+ throughout RATE: regular rate RHYTHM: regular rhythm HEART SOUNDS: S1 normal heart sound present and S2 normal heart sound present PERIPHERAL PULSES: Peripheral pulses 2+ throughout GI: COMMON NORMALS: Normal to inspection, nondistended, normoactive bowel sounds present, Soft to palpation, non-tender and no masses PALPATION: Yes Soft to palpation : COMMON NORMALS: Yes no CVA tenderness BLADDER/KIDNEY EXAM: Yes no CVA tenderness Back/Pelvis: COMMON NORMALS: no CVA tenderness Extremity: COMMON NORMALS: normal to inspection Neuro: COMMON NORMALS: patient oriented x3 SENSORIUM/ORIENTATION: Yes alert GAIT: Yes Normal gait present Skin: GENERAL SKIN EXAM: dry skin Course Vital Signs: Vital signs: Vital Signs Temperature 98.1 F 06/22/22 11:15 Pulse Rate 87 06/22/22 11:15 Respiratory Rate 16 06/22/22 13:18 Blood Pressure 98/58 06/22/22 11:15 Pulse Oximetry 96 06/22/22 11:15 Oxygen Delivery Me thod 06/22/22 11:15 MDM - General Adult Medical Decision Making Patient is a 52-year-old female who comes to the ED for recheck on pneumonia. Patient had a fall back on June 04 and was seen here in the ED and diagnosed with a rib fracture. She was then seen here in the ED again on June 18 and she was diagnosed with pneumonia and put on antibiotic. Patient endorses still having a cough and left rib pain. Cough is nonproductive. Vitals are stable. Patient appears nontoxic in no acute distress or pain. She has some diminished lung sounds at the bases bilaterally but rest of exam is benign. Labs were unremarkable. Chest x-ray shows resolution of previous pneumonia and there is no current acute findings on chest x-ray. Patient was stable for discharge home and diagnosed with rib fracture and cough. She was sent home with a prescription for some hydrocodone to help with her rib pain. Instructed on using incentive spirometer to help prevent pneumonia. Follow-up with PCP in the next week for reevaluation. Return to ED precautions given. Patient understood and agreed with plan. Lab Data I reviewed the patient's lab results. : 06/22/22 11:56 06/22/22 11:56 Radiology Impressions Chest X-Ray 06/22/22 11:31 IMPRESSION: Resolution of previous lung abnormalities. No new acute abnormality identified. Laboratory Results WBC 5.5 10^3/uL (4.0-10.0) 06/22/22 11:56 RBC 3.66 10^6/uL (4.1-5.3) L 06/22/22 11:56 Hgb 12.6 g/dL (11.5-15.3) 06/22/22 11:56 Hct 42.5 % (37.0-47.0) 06/22/22 11:56 MCV 116.1 fl (81-99) H 06/22/22 11:56 MCH 34.4 pg (28.0-34.0) H 06/22/22 11:56 MCHC 29.6 g/dL (30.0-36.0) L 06/22/22 11:56 RDW 12.9 % (12.1-15.1) 06/22/22 11:56 Plt Count 156 10^3/cmm (130-400) 06/22/22 11:56 MPV 11.2 fL (7.4-10.4) H 06/22/22 11:56 Neut % (Auto) 82.4 % 06/22/22 11:56 Lymph % (Auto) 7.1 % 06/22/22 11:56 [place] % (Auto) 5.8 % 06/22/22 11:56 Eos % (Auto) 3.1 % 06/22/22 11:56 Baso % (Auto) 0.9 % 06/22/22 11:56 Neut # (Auto) 4.51 10^3/uL (1.8-7.7) 06/22/22 11:56 Lymph # (Auto) 0.4 10^3/uL (0.8-4.8) L 06/22/22 11:56 [place] # (Auto) 0.3 10^3/uL (0.2-0.9) 06/22/22 11:56 Eos # (Auto) 0.2 10^3/uL (0.0-0.8) 06/22/22 11:56 Baso # (Auto) 0.1 10^3/uL (0.0-0.1) 06/22/22 11:56 Nucleated RBC % (auto) 0 % 06/22/22 11:56 Nucleated RBCs # 0.0 /100WBC 06/22/22 11:56 Sodium 136 mmol/L (136-145) 06/22/22 11:56 Potassium 4.3 mmol/L (3.5-5.1) 06/22/22 11:56 Chloride 107 mmol/L (98-107) 06/22/22 11:56 Carbon Dioxide 18 mmol/L (22-29) L 06/22/22 11:56 Anion Gap 15.3 (5-19) 06/22/22 11:56 BUN 23 mg/dL (6-20) H 06/22/22 11:56 Creatinine 1.5 mg/dL (0.5-0.9) H 06/22/22 11:56 GFR Calculation 36.5 mL/min (90-130) L 06/22/22 11:56 Glucose 91 mg/dL (65-115) 06/22/22 11:56 Calculated Osmolality 285 mOsm/kg (285-295) 06/22/22 11:56 Calcium 9.0 mg/dL (8.5-10.5) 06/22/22 11:56 Troponin T Baseline 8 ng/L (0-10) 06/22/22 11:56 Discharge Plan Discharge Patient Disposition: Home Clinical Impression: Fracture of rib Qualifiers: Encounter type: subsequent encounter Rib fracture type: single rib Fracture type: closed Laterality: left Fracture healing: with routine healing Qualified Code(s): S22.32XD - Fracture of one rib, left side, subsequent encounter for fracture with routine healing Cough Qualifiers: Cough type: other Qualified Code(s): R05.8 - Other specified cough Condition: Stable Prescriptions: New benzonatate 100 mg capsule 100 mg PO TID PRN (Reason: cough) Qty: 15 0RF No Action citalopram [Celexa] 40 mg tablet 40 mg PO QAM zolpidem 10 mg tablet 10 mg PO BEDTIME aspirin [Adult Low Dose Aspirin] 81 mg tablet,delayed release (DR/EC) 162 mg PO QAM Hold Instructions: Resume on 04/26/22. Resume after 30 days of full dose aspirin nitroglycerin [Nitrostat] 0.4 mg tablet, sublingual 0.4 mg SUBLINGUAL Q5M PRN (Reason: chest pain) Qty: 25 3RF ferrous sulfate 325 mg (65 mg iron) tablet 325 mg PO QAM Entresto 24-26 mg tablet 1 tab PO BID Qty: 60 3RF Vitamin B-12 50 mcg Tablet 50 mcg PO QAM montelukast 10 mg tablet 10 mg PO QAM levalbuterol tartrate 45 mcg/actuation Hfa Aerosol Inhaler 2 inh INHALATION Q6H PRN (Reason: Shortness Of Breath) Flomax 0.4 mg Capsule 0.4 mg PO BEDTIME PRN (Reason: kidney stones) carvedilol 25 mg tablet 12.5 mg PO BID Qty: 60 4RF Lasix 20 mg tablet 20 mg PO DAILY PRN (Reason: edema) Qty: 30 0RF hydrocodone-acetaminophen 5-325 mg tablet 1 tab PO Q6H PRN (Reason: pain) Qty: 20 0RF levofloxacin 500 mg tablet 500 mg PO DAILY 7 Days Qty: 7 0RF Discharge Orders: Discharge ED (Routine); Ordered 06/22/22 Ordered By: Fco Meneses Referrals: Elena Gray MD [Primary Care Provider] - Discharge Diet: Regular Discharge Activity: Increase activity as tolerated Patient Instructions: Rib Fracture (ED), Opioid Safety Activity Restrictions/Additional Instructions: Follow-up with medical provider as directed in the next 5 to 7 days reevaluation. Continue taking your previously prescribed antibiotics until course is finished. Take medications as prescribed. Use incentive spirometer at home multiple times an hour to help with your breathing and to prevent any development of pneumonia. Return to the ER or your medical provider if condition worsens. Please read and understand discharge instructions. Thank you for choosing [facility] for your healthcare needs today. Please realize this is an emergency room and that we are providing you with a medical screening exam and this may not be complete and all inclusive of all the testing and or work up that you may need to determine your ailment or severity of your illness. It is very important that you follow up as instructed or that you return to the Emergency Department should you have concerns or if your condition changes or worsens in any way. Coding Level of Care Code ED Bridge Gang Worker for Wesley Herrera Exam Comprehensive
[2022-06-22 13:18] VITALS: RESP 16
[2022-06-22] MEDS: oxyCODONE-APAP 5-325 mg Tablet 1 TAB PO (13:18)
== END 2022-06-22 13:23 | disposition home or self-care (01) ==
PROVIDERS: Emergency Medicine; Family Medicine; Emergency Provider Physician Assistant; PCP Family Medicine
DX: S22.32XD Fracture of one rib, left side, subsequent encounter for fracture with routine healing (principal); R05.9 Cough, unspecified; I11.0 Hypertensive heart disease with heart failure; I50.9 Heart failure, unspecified; F17.210 Nicotine dependence, cigarettes, uncomplicated; Z79.82 Long term (current) use of aspirin; Z86.73 Personal history of transient ischemic attack (TIA), and cerebral infarction without residual deficits; Z95.810 Presence of automatic (implantable) cardiac defibrillator; Z82.49 Family history of ischemic heart disease and other diseases of the circulatory system; W19.XXXD Unspecified fall, subsequent encounter
CPT/HCPCS: 36415; 71045; 80048; 84484; 85025; 93005; 99285

== ENCOUNTER 2022-06-24 12:24 | Emergency (ER) | payer MEDICARE, MEDICAID, SELFPAY ==
[2022-06-24] VITALS (11 sets, daily range): BP systolic 85–104; BP diastolic 54–65; PULSE 76–82; RESP 18; TEMP 36.3; O2SAT 93–98; BMI 28.3
--- NOTE | 2022-06-24 12:26 | CT_ITS ---
WS: [id number] CT head wo con* [id number] REASON FOR EXAM: fall, syncope IV CONTRAST ADMINISTERED: None. TOTAL EXAM DLP: 1004.[address] scans at [facility] use at least one of these dose optimization techniques: automat ed exposure control; mA and/or kV adjustment per patient size (includes targeted exams where dose is matched to clinical indication); or iterative reconstruction. FINDINGS: No midline shift or other significant mass effect. No findings of intracranial hemorrhage. No acute brain parenchymal abnormality. Normal CSF spaces. The base of skull and the bony calvarium are intact. CT/CT head wo con* [id number] IMPRESSION: No acute intracranial abnormality.
--- NOTE | 2022-06-24 12:26 | XR_ITS ---
WS: [id number] XR chest 1V portable [id number] REASON FOR EXAM: syncope FINDINGS: Chest is unchanged compared to 06/22/2022. Left subclavian lead to the right ventricular apex. Mild cardiomegaly. No acute pulmonary parenchymal or pleural disease is identified. Cardiac device overlying the left ch est with transvenous XR/XR chest 1V portable [id number] IMPRESSION: Stable chest with no acute abnormality.
--- NOTE | 2022-06-24 12:33 | W.ED.GENADLT ---
HPI - General Adult General: Chief complaint: Syncope Stated complaint: SYNCOPE WHILE WALKING Time Seen by Provider: 06/24/22 12:26 History of Present Illness: Patient is a 52-year-old female with history of NICM w/ CHF, TIA, ICD presenting to the emergency room for concerns of syncope. Patient was walking outside when she is passed out. Patient did not have any prodromal symptoms. Patient passed out in front of family and friends. Patient was on ground. He has no complaints of pain. Patient reports feeling lightheaded on board get up. EMS was called patient was brought to the emergency room. On arrival, patient denies any chest pain, shortness of palpitation. Denies any focal weakness in the arms or legs. Patient reports decreased p.o. intake but denies diarrhea melena/hematochezia. Patient has no complaints. Patient has been shocked by her ICD device. Onset: 11am Duration:once Location:outside Severity:moderate/severe Associated symptoms: Deny chest pain, dyspnea, nausea, rash, palpitations or vomiting Review of Systems Const: Denies: fever(s) or chills Eyes: Denies: change in vision ENMT: Denies: mouth pain Card: Denies: chest pain or palpitations Resp: Denies: dyspnea or non-productive cough GI: Denies: abdominal pain, nausea, vomiting or diarrhea : Denies: dysuria Musc: Denies: extremity pain Skin/Breast: Denies: rash or new lesions Neuro: Reports: other (+light-headedness/syncope); Denies: weakness in extremities Psych: Reports: other (Normal mood) Cedric/Lymph: Denies: easy bruising [facility] ED PFSH: Medical History CHF (congestive heart failure) Related to nonischemic cardiomyopathy, most recent ejection fraction with with EF 42%. History of recurrent UTIs History of TIA (transient ischemic attack) HTN (hypertension) ICD (implantable cardioverter-defibrillator) in place Mass of right lobe of liver ~3.5 x 4 cm, indeterminant, hypodense, first noted 11/2021 Nonischemic cardiomyopathy Specific etiology unknown, may have been viral or related to uncontrolled hypertension from her recollection Echocardiogram November 2021 with ejection fraction of 42% - 05/17/22 echo EF now 25% Obstructive pyelonephritis (~11/2021) Renal stones Ureteral calculus Surgical History S/P ureteral stent placement (~11/2021) Status post cholecystectomy Status post placement of cardiac pacemaker Family History Father , AT AGE 77 CAD (coronary artery disease) Cancer lung cancer Mother , AT AGE 60 Cancer OVARIAN Denies family history of Clotting disorder Anesthesia complication Bleeding disorder Social History Smoking and tobacco status: current every day smoker cigarettes Packs smoked per day: 0.5 Years cigarettes smoked: 45 Second hand smoke exposure: Yes Alcohol intake: current Lives independently: Yes Marital status: service: No Current occupational status: disabled Current gender identity: Female Physical Exam Const: COMMON NORMALS: alert HENMT: COMMON NORMALS: atraumatic HEAD & SCALP: atraumatic MOUTH: moist mucous membranes not abnormal Eye: COMMON NORMALS: EOMs intact bilaterally and conjunctivae normal CONJUNCTIVA: Yes conjunctivae normal Neck/C-Spine: COMMON NORMALS: full ROM and supple Resp: COMMON NORMALS: normal respiratory effort and clear to auscultation bilaterally AUSCULTATION: clear to auscultation bilaterally Cardio: COMMON NORMALS: regular rate RATE: regular rate GI: COMMON NORMALS: Soft to palpation and non-tender PALPATION: Yes Soft to palpation OTHER: No focal TTP. NO guarding rebound, guarding, rigidity. No CVA tenderness to percussion. Neg Moser/Neg McBurney's point tenderness, no suprabupic tenderness to palpation. Extremity: COMMON NORMALS: full ROM Neuro: SENSORIUM/ORIENTATION: Yes alert MOTOR EXAM: No Abnormal motor strength present and Other motor observations present (no focal motor deficits) OTHER: Mental status? Awake, alert, and oriented to self, year, month, location, and situation.? Following simple axial and appendicular commands.? Has appropriate fund of knowledge, comprehension, and insight.? Able to recall and understands pertinent aspects of medical history and current treatment status.? ? Language? Speech is fluent without word-finding difficulties.? Intact naming, expression, it program engagement director, and repetition.? ? Cranial nerves? 2,3,4,6: PERRL, EOMI with no nystagmus. 5: Intact sensation to light touch, symmetric? 7: Smile symmetrical, no facial droop.? 8: Hearing grossly intact.? 9,10: Normal palate movement.? 11: Normal strength in trapezius bilaterally 12: Tongue protrudes midline.? ? Motor examination? Normal bulk & tone. Strength as follows (R/L): Delts (5/5), Biceps (5/5), Triceps (5/5), Wrist ext (5/5), hip flexors (5/5), plantarflexors (5/5), dorsiflexors (5/5). Sensation? Light Touch: Grossly intact and equal in upper and lower extremities bilaterally? Distal joint position sense intact ? Coordination? Dpakzy-xh-tpmx-finger movements intact without dysmetria or past-pointing.? Rapid fingertaps: preserved amplitude without decriment.? No tremor, myoclonus or truncal ataxia.? ? Gait/stance? + Lightheadedness upon standing, unable to assess gait or Romberg due to lightheadedness Psych: COMMON NORMALS: speech normal SPEECH: Yes normal speech MOOD & AFFECT: Yes euthymic mood Course Vital Signs: Vital signs: Vital Signs Temperature 97.3 F L 06/24/22 12:25 Pulse Rate 76 06/24/22 16:09 Respiratory Rate 18 06/24/22 14:56 Blood Pressure 100/60 06/24/22 16:09 Pulse Oximetry 98 06/24/22 15:00 Oxygen Delivery Me thod 06/24/22 12:25 [facility] - General Adult Medical Decision Making Patient is a 52-year-old female with history of NICM w/ CHF, TIA, ICD presenting to the emergency room for concerns of syncope occurred 1 hour 40 minutes ago. On exam, patient is neurologically intact other than gait. Patient reported lightheadedness as such I was unable to assess gait or Romberg. Patient received 1 L fluid. Interrogation of the ICD device showed no acute cardiac activity.. Patient is noted to have initial troponin of 11 with delta < 5. CTA negative for any acute finding. X-ray chest negative for any acute findings. Repeat troponin within normal limit. Patient received a liter 1 L of IV fluid reports feeling symptomatically improved. No acute dysrhythmia since there is no tracing on ICD device. Patient screening 1.4 which showed acute kidney injury likely suspected dehydration. Patient reports feeling symptomatically proved, is now able to ambulate after IVF and po challenge. Disposition: Discharge. Patient counseled regarding diagnostic impression, treatment plan. Patient given ED strict return precautions to return for continuation, worsening, or development of new symptoms. Instructed to f/u w/ PCP regarding symptoms today. Patient verbalized understanding. Lab Data : 06/24/22 12:40 06/24/22 12:40 Radiology Impressions Chest X-Ray 06/24/22 12:26 IMPRESSION: Stable chest with no acute abnormality. Head CT 06/24/22 12:26 IMPRESSION: No acute intracranial abnormality. Laboratory Results WBC 3.4 10^3/uL (4.0-10.0) L 06/24/22 12:40 RBC 3.46 10^6/uL (4.1-5.3) L 06/24/22 12:40 Hgb 11.8 g/dL (11.5-15.3) 06/24/22 12:40 Hct 36.5 % (37.0-47.0) L 06/24/22 12:40 MCV 105.5 fl (81-99) H 06/24/22 12:40 MCH 34.1 pg (28.0-34.0) H 06/24/22 12:40 MCHC 32.3 g/dL (30.0-36.0) 06/24/22 12:40 RDW 13.2 % (12.1-15.1) 06/24/22 12:40 Plt Count 148 10^3/cmm (130-400) 06/24/22 12:40 MPV 11.6 fL (7.4-10.4) H 06/24/22 12:40 Neut % (Auto) 58.0 % 06/24/22 12:40 Lymph % (Auto) 26.8 % 06/24/22 12:40 [place] % (Auto) 12.2 % 06/24/22 12:40 Eos % (Auto) 0.9 % 06/24/22 12:40 Baso % (Auto) 0.9 % 06/24/22 12:40 Neut # (Auto) 1.99 10^3/uL (1.8-7.7) 06/24/22 12:40 Lymph # (Auto) 0.9 10^3/uL (0.8-4.8) 06/24/22 12:40 [place] # (Auto) 0.4 10^3/uL (0.2-0.9) 06/24/22 12:40 Eos # (Auto) 0.0 10^3/uL (0.0-0.8) 06/24/22 12:40 Baso # (Auto) 0.0 10^3/uL (0.0-0.1) 06/24/22 12:40 Nucleated RBC % (auto) 0 % 06/24/22 12:40 Nucleated RBCs # 0.0 /100WBC 06/24/22 12:40 Sodium 137 mmol/L (136-145) 06/24/22 12:40 Potassium 3.9 mmol/L (3.5-5.1) 06/24/22 12:40 Chloride 104 mmol/L (98-107) 06/24/22 12:40 Carbon Dioxide 18 mmol/L (22-29) L 06/24/22 12:40 Anion Gap 18.9 (5-19) 06/24/22 12:40 BUN 24 mg/dL (6-20) H 06/24/22 12:40 Creatinine 1.4 mg/dL (0.5-0.9) H 06/24/22 12:40 GFR Calculation 39.5 mL/min (90-130) L 06/24/22 12:40 Glucose 99 mg/dL (65-115) 06/24/22 12:40 Calculated Osmolality 288 mOsm/kg (285-295) 06/24/22 12:40 Calcium 8.3 mg/dL (8.5-10.5) L 06/24/22 12:40 Troponin T Baseline 11 ng/L (0-10) H 06/24/22 12:40 Troponin T 120 Minute 7.09 ng/L (0-10) 06/24/22 14:40 Delta Troponin T 3.91 ABS# (0-10) 06/24/22 14:40 Imaging Data Other Imaging: Radiologist's impression: [address] [address] XRay Report Signed Patient: Elena Pulliam Unit #: [id number] : 1970 Age/Sex: 52 / F ADM Date: 06/24/22 Loc: ER Room/Bed: Attending Dr: Ordering Provider/Ordering MD: Amy Mckay MD Date of Service: 06/24/22 Procedure(s): XR chest 1V portable [id number] Accession Number(s): [id number] Report Number: [id number] WS: [id number] XR chest 1V portable [id number] REASON FOR EXAM: syncope FINDINGS: Chest is unchanged compared to 06/22/2022. Left subclavian lead to the right ventricular apex. Mild cardiomegaly. No acute pulmonary parenchymal or pleural disease is identified. Cardiac device overlying the left chest with transvenous XR/XR chest 1V portable [id number] IMPRESSION: Stable chest with no acute abnormality. ? ? Dictated By: Endy Maurer Jr, MD Signed By: Endy Maurer Jr, MD Signed Date/Time: 06/24/22 1251 DD/ [address] [place] [address] CT Scan Report Signed Patient: Elena Pulliam Unit #: [id number] : 1970 Age/Sex: 52 / F ADM Date: 06/24/22 Loc: ER Room/Bed: Attending Dr: Ordering Provider/Ordering MD: Amy Mckay MD Date of Service: 06/24/22 Procedure(s): CT head wo con* [id number] Accession Number(s): [id number] Report Number: [id number] WS: [email or web address] CT head wo con* [id number] REASON FOR EXAM: fall, syncope IV CONTRAST ADMINISTERED: None. TOTAL EXAM DLP: 1004.[address] scans at [facility] use at least one of these dose optimization techniques: automated exposure control; mA and/or kV adjustment per patient size (includes targeted exams where dose is matched to clinical indication); or iterative reconstruction. FINDINGS: No midline shift or other significant mass effect. No findings of intracranial hemorrhage. No acute brain parenchymal abnormality. Normal CSF spaces. The base of skull and the bony calvarium are intact. CT/CT head wo con* [id number] IMPRESSION: No acute intracranial abnormality. ? Dictated By: Endy Maurer Jr, MD Signed By: Endy Maurer Jr, MD Signed Date/Time: 06/24/22 1344 DD/ 1343 Discharge Plan Discharge Patient Disposition: Home Clinical Impression: Light headedness, Syncope Condition: Stable Prescriptions: No Action citalopram [Celexa] 40 mg tablet 40 mg PO QAM zolpidem 10 mg tablet 10 mg PO BEDTIME aspirin [Adult Low Dose Aspirin] 81 mg tablet,delayed release (DR/EC) 162 mg PO QAM Hold Instructions: Resume on 04/26/22. Resume after 30 days of full dose aspirin nitroglycerin [Nitrostat] 0.4 mg tablet, sublingual 0.4 mg SUBLINGUAL Q5M PRN (Reason: chest pain) Qty: 25 3RF ferrous sulfate 325 mg (65 mg iron) tablet 325 mg PO QAM Entresto 24-26 mg tablet 1 tab PO BID Qty: 60 3RF Vitamin B-12 50 mcg Tablet 50 mcg PO QAM montelukast 10 mg tablet 10 mg PO QAM levalbuterol tartrate 45 mcg/actuation Hfa Aerosol Inhaler 2 inh INHALATION Q6H PRN (Reason: Shortness Of Breath) carvedilol 25 mg tablet 12.5 mg PO BID Qty: 60 4RF furosemide [Lasix] 20 mg tablet 20 mg PO DAILY PRN (Reason: edema) Qty: 30 0RF hydrocodone-acetaminophen 5-325 mg tablet 1 tab PO Q6H PRN (Reason: pain) Qty: 20 0RF pantoprazole 40 mg Tablet,Delayed Release (Dr/Ec) 40 mg PO DAILY Discharge Orders: Discharge ED (Routine); Ordered 06/24/22 Ordered By: Amy Mckay Referrals: Elena Gray MD [Primary Care Provider] - Discharge Diet: Advance as tolerated Discharge Activity: Increase activity as tolerated Patient Instructions: Syncope (ED) Activity Restrictions/Additional Instructions: Please come back to the emergency room for any more breakthrough episodes of passing out. Come back if any weakness in her arms, drooling, difficulty speaking, any neurological symptoms, chest pain/shortness of breath/palpitation or any new or concerning issues. Please do not swim, bathe, operate heavy machinery or drive a vehicle unattended. Coding Level of Care Code ED Stapler Machine for Wesley Fwd Exam Comprehensive
--- NOTE | 2022-06-24 12:34 | ECG_ITS ---
[facility] Test Date: 2022-06-24 Pat Name: Elena Pulliam Department: Room: Gender: Female Tea Blender: : 1970 Requested By: Amy Mckay Order Number: [id number] Arlette MD: Sil Pineda M.D. Measurements Intervals [place] Rate: 76 P: 33 NV: 149 QRS: -37 QRSD: 132 T: -11 QT: 414 QTc: 468 Interpretive Statements SINUS RHYTHM LEFT AXIS DEVIATION [QRS AXIS < -30] INTRAVENTRICULAR CONDUCTION DELAY [130+ ms QRS DURATION] POSSIBLE LEFT VENTRICULAR HYPERTROPHY [VOLTAGE CRITERIA PLUS LAE OR QRS WIDENING] Compared to ECG 06/22/2022 12:46:14 Intraventricular conduction delay now present Left bundle-branch block no longer present Electronically Signed On 06-24-2022 13:30:03 CDT by Sil Pineda M.D. [id number]
[2022-06-24 12:46] LABS: Basophils % 0.9 %; Eosinophils % 0.9 %; Hematocrit 36.5 % (37.0-47.0); Hemoglobin 11.8 g/dL (11.5-15.3); Lymphocytes # 0.9 10^3/uL (0.8-4.8); Lymphocytes % 26.8 %; Mean Corpuscular HGB Conc 32.3 g/dL (30.0-36.0); Mean Corpuscular Hemoglobin 34.1 pg (28.0-34.0); Mean Corpuscular Volume 105.5 fl (81-99); Mean Platelet Volume 11.6 fL (7.4-10.4); Monocytes # 0.4 10^3/uL (0.2-0.9); Monocytes % 12.2 %; Neutrophils # 1.99 10^3/uL (1.8-7.7); Nucleated Red Blood Cells % 0 %; Platelet Count 148 10^3/cmm (130-400); Red Blood Count 3.46 10^6/uL (4.1-5.3); Red Cell Distribution Width 13.2 % (12.1-15.1); White Blood Count 3.4 10^3/uL (4.0-10.0)
[2022-06-24 13:09] LABS: Troponin(5th) Baseline 11 ng/L (0-10)
[2022-06-24 13:43] LABS: Blood Urea Nitrogen 24 mg/dL (6-20); Calcium 8.3 mg/dL (8.5-10.5); Carbon Dioxide 18 mmol/L (22-29); Chloride 104 mmol/L (98-107); Glomerular Filtration Rate 39.5 mL/min (90-130); Glucose 99 mg/dL (65-115); Osmolality Calculated 288 mOsm/kg (285-295); Sodium 137 mmol/L (136-145)
[2022-06-24 13:45] LABS: Anion Gap 18.9 (5-19); Potassium 3.9 mmol/L (3.5-5.1)
[2022-06-24] MEDS: sodium chloride 0.9% 1,000 ML 999 ML IV (13:45)
[2022-06-24] MEDS: acetaminophen 500 mg Tablet PO (13:45)
--- NOTE | 2022-06-24 14:26 | ECG_ITS ---
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 Measurements Intervals [place] Rate: 75 P: 45 MS: 159 QRS: -39 QRSD: 130 T: 41 QT: 427 QTc: 478 Interpretive Statements SINUS RHYTHM LEFT AXIS DEVIATION [QRS AXIS < -30] MODERATE INTRAVENTRICULAR CONDUCTION DELAY MINIMAL VOLTAGE CRITERIA FOR LVH, CONSIDER NORMAL VARIANT NONSPECIFIC T-WAVE ABNORMALITY Compared to ECG 06/24/2022 12:34:18 T-wave abnormality now present Electronically Signed On 06-25-2022 8:41:02 CDT by Sil Pineda M.D. [id number]
[2022-06-24] MEDS: sodium chloride 0.9% 500 ML IV (14:48)
[2022-06-24] MEDS: morphine 4 mg/mL SDV 1 mL 2 MG IVP (14:56)
[2022-06-24 15:27] LABS: Troponin 5 2HR 7.09 ng/L (0-10)
[2022-06-24 16:02] LABS: Troponin 5 2HR Delta 3.91 ABS# (0-10)
== END 2022-06-24 16:40 | disposition home or self-care (01) ==
PROVIDERS: Emergency Provider Emergency Medicine; PCP Family Medicine
DX: R55 Syncope and collapse (principal); I11.0 Hypertensive heart disease with heart failure; I50.9 Heart failure, unspecified; F17.210 Nicotine dependence, cigarettes, uncomplicated; Z86.73 Personal history of transient ischemic attack (TIA), and cerebral infarction without residual deficits; Z95.810 Presence of automatic (implantable) cardiac defibrillator
CPT/HCPCS: 70450; 71045; 80048; 84484; 85025; 93005; 96361; 96374; 99285; J2270; J7030; J7040

== ENCOUNTER 2022-09-11 13:21 | Emergency (ER) | payer MEDICARE, MEDICAID, SELFPAY ==
[2022-09-11] VITALS (21 sets, daily range): BP systolic 112–151; BP diastolic 87–96; PULSE 93–105; RESP 14–28; TEMP 37.1; O2SAT 94–99
--- NOTE | 2022-09-11 13:28 | ECG_ITS ---
[facility] Test Date: 2022-09-11 Pat Name: Elena Pulliam Department: Room: Gender: Female Supervisor Cigar Making Hand: : 1970 Requested By: Abiodun Johnson Order Number: [id number] Arlette MD: Pola Ferrera M.D. Measurements Intervals [place] Rate: 103 P: 63 NH: 145 QRS: -43 QRSD: 139 T: 97 QT: 412 QTc: 540 Interpretive Statements SINUS TACHYCARDIA LEFT AXIS DEVIATION [QRS AXIS < -30] INTRAVENTRICULAR CONDUCTION DELAY [130+ ms QRS DURATION] LEFT VENTRICULAR HYPERTROPHY AND ST-T CHANGE [VOLTAGE CRITERIA PLUS ST/T ABNORMALITY] POSSIBLE ANTERIOR MYOCARDIAL INFARCTION , OF INDETERMINATE AGE [30 ms Q WAVE IN V3/V4, OR R < 0.2 mV IN V4] Compared to ECG 06/24/2022 14:50:15 ST (T wave) deviation now present Myocardial infarct finding now present Sinus rhythm no longer present T-wave abnormality no longer present Electronically Signed On 09-11-2022 19:43:57 ORDNANCE TRUCK INSTALLATION SUPERVISOR by Pola Ferrera M.D. [email or web address]/store/NU/[id number] kyle
--- NOTE | 2022-09-11 13:28 | XRR_ITS ---
PROCEDURE INFORMATION: Exam: XR Chest Exam date and time: 09/11/2022 1:34 PM Age: 52 years old Clinical indication: Cough and dyspnea; Additional info: Dyspnea/cough TECHNIQUE: Imaging protocol: Radiologic exam of the chest. Views: 1 view. COMPARISON: CR XR chest 1V portable [id number] 06/24/2022 12:35 PM FINDINGS: Tubes, catheters and devices: Cardiac device left anterior chest in good position. Lungs: Unremarkable. No consolidation. Pleural spaces: Unremarkable. No pleural effusion. No pneumothorax. Heart/Mediastinum: Unremarkable. No cardiomegaly. Bones/joints: Unremarkable. Other findings: There has been no interval change comparing to prior XR/XR chest 1V portable [id number] IMPRESSION: 1. No acute findings. 2. Stable cardiac device left anterior chest
[2022-09-11] MEDS: aspirin 81 mg Chew Tablet 324 MG PO (13:40)
--- NOTE | 2022-09-11 14:03 | ED_ITS ---
HPI - SOB/Dyspnea General: Chief Complaint: Shortness of Breath/Dyspnea Stated Complaint: CHEST PAIN; DYSPNEA Time Seen by Provider: 09/11/22 13:27 Source: patient Mode of arrival: ambulatory History of Present Illness: HPI Narrative: 52-year-old female presents emergency room complaining of shortness of breath and chest discomfort. She states it is worse when she lays down she is not normally on oxygen on arrival here she has a normal saturation although she is slightly tachypneic she is not having any fever sweats or chills she is having a slight productive cough of clear mucus, patient showed me an example tissue she had at the bedside. MD elicited complaint: shortness of breath and cough Pertinent past history: COPD Onset (ago): hour(s) Timing: constant Severity: mild Exacerbating factors: lying flat and coughing Relieving factors: rest and upright position Known history of: COPD Associated symptoms: Reports chest congestion, chest pain, cough and orthopnea; Deny abdominal pain, diaphoresis, dizziness, extremity pain, fever(s), hem optysis, lightheadedness, myalgias, nausea, palpitations, paresthesias, polydipsia, polyuria, rash, sense of impending doom, syncope or vomiting Treatment prior to arrival: none Review of Systems Const: Denies: fever(s), chills, fatigue, malaise or diaphoresis ENMT: Denies: throat pain, ear or mastoid pain, nasal discharge or nasal congestion Card: Reports: chest pain and orthopnea; Denies: palpitations, lightheadedness or syncope Resp: Reports: dyspnea, productive cough and chest congestion; Denies: non-productive cough, wheezing or hemoptysis GI: Denies: abdominal pain, nausea or vomiting : Denies: flank pain, difficulty voiding, dysuria, urinary frequency or urinary urgency Musc: Denies: extremity pain Skin/Breast: Denies: rash or pruritus Neuro: Denies: dizziness Endo: Denies: polyuria or polydipsia PFSH ED PFSH: Medical History CHF (congestive heart failure) Related to nonischemic cardiomyopathy, most recent ejection fraction with with EF 42%. History of recurrent UTIs History of TIA (transient ischemic attack) HTN (hypertension) ICD (implantable cardioverter-defibrillator) in place Mass of right lobe of liver ~3.5 x 4 cm, indeterminant, hypodense, first noted 11/2021 Nonischemic cardiomyopathy Specific etiology unknown, may have been viral or related to uncontrolled hypertension from her recollection Echocardiogram November 2021 with ejection fraction of 42% - 05/17/22 echo EF now 25% Obstructive pyelonephritis (~11/2021) Urolithiasis Multi stone former. Complicated by at least 1 episode of obstructive pyelonephritis. Multiple procedures required to treat Surgical History S/P ureteral stent placement (~11/2021) Status post cholecystectomy Status post placement of cardiac pacemaker Family History Father , AT AGE 77 CAD (coronary artery disease) Cancer lung cancer Mother , AT AGE 60 Cancer OVARIAN Denies family history of Clotting disorder Anesthesia complication Bleeding disorder Social History Smoking and tobacco status: current every day smoker cigarettes Packs smoked per day: 0.5 Years cigarettes smoked: 45 Second hand smoke exposure: Yes Alcohol intake: current Lives independently: Yes Marital status: service: No Current occupational status: disabled Current gender identity: Female Physical Exam Const: GENERAL APPEARANCE: cooperative and comfortable ORIENTATION/CONSCIOUSNESS: Yes awake, Yes oriented to person, Yes oriented to place and Yes oriented to time HENMT: COMMON NORMALS: normocephalic, atraumatic and hearing grossly normal bilaterally HEAD & SCALP: normocephalic and atraumatic Resp: COMMON NORMALS: normal respiratory effort, No retractions, No use of accessory muscles and clear to auscultation bilaterally AUSCULTATION: clear to auscultation bilaterally Cardio: COMMON NORMALS: regular rate, regular rhythm and No murmurs present (Cardio) RATE: regular rate RHYTHM: regular rhythm GI: COMMON NORMALS: Soft to palpation and No hepatosplenomegaly present AUSCULTATION: Yes normoactive bowel sounds PALPATION: Yes Soft to palpation, No Tenderness to palpation present (GI), No Guarding due to palpation present (GI) and Yes No hepatosplenomegaly present Extremity: COMMON NORMALS: normal to inspection, capillary refill normal, no c lubbing, cyanosis or edema, no calf tenderness and no pedal edema Neuro: SENSORIUM/ORIENTATION: Yes oriented to person, Yes oriented to place and Yes oriented to time Skin: COMMON NORMALS: no rashes or lesions noted GENERAL SKIN EXAM: no rashes or lesions noted Course Vital Signs: Vital signs: Vital Signs Temperature 98.7 F 09/11/22 13:31 Pulse Rate 100 09/11/22 15:30 Respiratory Rate 20 H 09/11/22 15:30 Blood Pressure 151/96 09/11/22 15:30 Pulse Oximetry 98 09/11/22 15:30 Oxygen Delivery Me thod 09/11/22 14:37 MDM - SOB/Dyspnea Medical Decision Making Initial blood gas showed mild hyperventilation patient is doing much better now she was sleeping comfortably when the lab results return. Reviewed labs and EKG no acute findings troponins negative EKG does not show any acute ST changes. We will discharge patient home with acute exacerbation COPD. Prednisone taper aggressive use of albuterol start doxycycline recheck if not improving Medical Records I reviewed the patient's medical records. Lab Data I reviewed the patient's lab results. 09/11/22 13:42 09/11/22 13:42 Labs/Radiology: Radiology Impressions Chest X-Ray 09/11/22 13:28 IMPRESSION: 1. No acute findings. 2. Stable cardiac device left anterior chest Laboratory Results WBC 7.4 10^3/uL (4.0-10.0) 09/11/22 13:42 RBC 3.40 10^6/uL (4.1-5.3) L 09/11/22 13:42 Hgb 11.7 g/dL (11.5-15.3) 09/11/22 13:42 Hct 35.6 % (37.0-47.0) L 09/11/22 13:42 MCV 104.7 fl (81-99) H 09/11/22 13:42 MCH 34.4 pg (28.0-34.0) H 09/11/22 13:42 MCHC 32.9 g/dL (30.0-36.0) 09/11/22 13:42 RDW 14.4 % (12.1-15.1) 09/11/22 13:42 Plt Count 166 10^3/cmm (130-400) 09/11/22 13:42 MPV 11.6 fL (7.4-10.4) H 09/11/22 13:42 Neut % (Auto) 63.4 % 09/11/22 13:42 Lymph % (Auto) 29.6 % 09/11/22 13:42 [place] % (Auto) 4.3 % 09/11/22 13:42 Eos % (Auto) 1.2 % 09/11/22 13:42 Baso % (Auto) 1.2 % 09/11/22 13:42 Neut # (Auto) 4.72 10^3/uL (1.8-7.7) 09/11/22 13:42 Lymph # (Auto) 2.2 10^3/uL (0.8-4.8) 09/11/22 13:42 [place] # (Auto) 0.3 10^3/uL (0.2-0.9) 09/11/22 13:42 Eos # (Auto) 0.1 10^3/uL (0.0-0.8) 09/11/22 13:42 Baso # (Auto) 0.1 10^3/uL (0.0-0.1) 09/11/22 13:42 Nucleated RBC % (auto) 0 % 09/11/22 13:42 Nucleated RBCs # 0.0 /100WBC 09/11/22 13:42 Specimen Type Arterial 09/11/22 14:11 Sample Site Radial, left 09/11/22 14:11 ABG pH 7.49 (7.35-7.45) H 09/11/22 14:11 ABG pCO2 26.0 mmHg (35-45) L 09/11/22 14:11 ABG pO2 50.7 mmHg (80.0-100.0) L 09/11/22 14:11 ABG HCO3 19.8 mmol/L (22-26) L 09/11/22 14:11 ABG O2 Saturation 89.0 09/11/22 14:11 ABG Base Excess -2.3 mmol/L (-2.0-2.0) L 09/11/22 14:11 Michi Test Pos 09/11/22 14:11 A-a O2 Gradient 8.7 mmHg (5-10) 09/11/22 14:11 Hematocrit 36.8 % (37-47) L 09/11/22 14:11 Hgb O2 Saturation 86.1 % (95-100) L 09/11/22 14:11 Carboxyhemoglobin 2.9 %THgb (0.4-20.1) 09/11/22 14:11 Methemoglobin 0.4 % (0.4-1.5) 09/11/22 14:11 Total Hemoglobin 12.0 g/dL (12-16) 09/11/22 14:11 Sodium 139.0 mmol/L (131-143) 09/11/22 14:11 Potassium 3.9 mmol/L (3.5-5.0) 09/11/22 14:11 Glucose 86.0 mg/dL (70-115) 09/11/22 14:11 Ionized Calcium 1.2 mmol/L (1.1-1.4) 09/11/22 14:11 O2 Delivery Device Room air 09/11/22 14:11 FiO2 21.0 % 09/11/22 14:11 Workers' Compensation Magistrate ID Cak 09/11/22 14:11 Sodium 137 mmol/L (136-145) 09/11/22 13:42 Potassium 3.9 mmol/L (3.5-5.1) 09/11/22 13:42 Chloride 106 mmol/L (98-107) 09/11/22 13:42 Carbon Dioxide 19 mmol/L (22-29) L 09/11/22 13:42 Anion Gap 15.9 (5-19) 09/11/22 13:42 BUN 19 mg/dL (6-20) 09/11/22 13:42 Creatinine 1.3 mg/dL (0.5-0.9) H 09/11/22 13:42 GFR Calculation 43.0 mL/min (90-130) L 09/11/22 13:42 Glucose 94 mg/dL (65-115) 09/11/22 13:42 Calculated Osmolality 286 mOsm/kg (285-295) 09/11/22 13:42 Calcium 9.0 mg/dL (8.5-10.5) 09/11/22 13:42 Total Bilirubin 0.6 mg/dL (0.15-1.2) 09/11/22 13:42 AST 19 U/L (0-32) 09/11/22 13:42 ALT 19 U/L (0-33) 09/11/22 13:42 Alkaline Phosphatase 117 U/L (35-105) H 09/11/22 13:42 Troponin T Baseline 12 ng/L (0-10) H 09/11/22 13:42 Troponin T 120 Minute 13.96 ng/L (0-10) H 09/11/22 15:22 Delta Troponin T 1.96 ABS# (0-10) 09/11/22 15:22 Total Protein 6.9 g/dL (6.6-8.7) 09/11/22 13:42 Albumin 4.1 g/dL (3.5-5.2) 09/11/22 13:42 Globulin 2.8 g/dL (1.3-4.6) 09/11/22 13:42 Discharge Plan Discharge Patient Disposition: Home Clinical Impression: Acute exacerbation of chronic obstructive airways disease Condition: Stable Prescriptions: New doxycycline hyclate 100 mg capsule 100 mg PO BID 10 Days Qty: 20 0RF prednisone 20 mg tablet 20 mg PO TID Qty: 15 0RF Rx Instructions: 1 p.o. 3 times daily x3 days, 1 p.o. twice daily x2 days, 1 p.o. daily x2 days No Action citalopram [Celexa] 40 mg tablet 40 mg PO QAM zolpidem 10 mg tablet 10 mg PO BEDTIME aspirin [Adult Low Dose Aspirin] 81 mg tablet,delayed release (DR/EC) 162 mg PO QAM Hold Instructions: Resume on 04/26/22. Resume after 30 days of full dose aspirin nitroglycerin [Nitrostat] 0.4 mg tablet, sublingual 0.4 mg SUBLINGUAL Q5M PRN (Reason: chest pain) Qty: 25 3RF ferrous sulfate 325 mg (65 mg iron) tablet 325 mg PO QAM Entresto 24-26 mg tablet 2 tab PO BID Qty: 120 0RF Vitamin B-12 50 mcg Tablet 50 mcg PO QAM montelukast 10 mg tablet 10 mg PO QAM levalbuterol tartrate 45 mcg/actuation Hfa Aerosol Inhaler 2 inh INHALATION Q6H PRN (Reason: Shortness Of Breath) carvedilol 25 mg tablet 12.5 mg PO BID Qty: 60 4RF furosemide [Lasix] 20 mg tablet 20 mg PO DAILY PRN (Reason: edema) Qty: 30 0RF hydrocodone-acetaminophen 5-325 mg tablet 1 tab PO Q6H PRN (Reason: pain) Qty: 20 0RF pantoprazole 40 mg Tablet,Delayed Release (Dr/Ec) 40 mg PO DAILY Discharge Orders: Discharge ED (Routine); Ordered 09/11/22 Ordered By: Abiodnu Stone Referrals: Elena Gray MD [Primary Care Provider] - Discharge Diet: Usual diet Discharge Activity: Increase activity as tolerated Patient Instructions: Opioid Safety, Pain Management Activity Restrictions/Additional Instructions: You were seen today for difficulty with breathing. Your vital signs were normal and your oxygen saturation was normal. Not require any supplemental oxygen. Start in a prednisone taper and doxycycline since you are having a productive cough. When you first arrived you were slightly hyperventilating that improved after you have been in the emergency room for some time. Use your albuterol as needed follow-up with your primary care doctor if you are not improving. Coding Level of Care Code ED Plant Equipment Engineer for Chg Fwd Exam Detailed
[2022-09-11 14:06] LABS: Basophils # 0.1 10^3/uL (0.0-0.1); Basophils % 1.2 %; Eosinophils # 0.1 10^3/uL (0.0-0.8); Eosinophils % 1.2 %; Hematocrit 35.6 % (37.0-47.0); Hemoglobin 11.7 g/dL (11.5-15.3); Lymphocytes # 2.2 10^3/uL (0.8-4.8); Lymphocytes % 29.6 %; Mean Corpuscular HGB Conc 32.9 g/dL (30.0-36.0); Mean Corpuscular Hemoglobin 34.4 pg (28.0-34.0); Mean Corpuscular Volume 104.7 fl (81-99); Mean Platelet Volume 11.6 fL (7.4-10.4); Monocytes # 0.3 10^3/uL (0.2-0.9); Monocytes % 4.3 %; Neutrophils # 4.72 10^3/uL (1.8-7.7); Neutrophils % 63.4 %; Nucleated Red Blood Cells % 0 %; Platelet Count 166 10^3/cmm (130-400); Red Cell Distribution Width 14.4 % (12.1-15.1); White Blood Count 7.4 10^3/uL (4.0-10.0)
[2022-09-11 14:22] LABS: ABG PH Result 7.49 (7.35-7.45); Alveolar-Arterial Oxygen Gradi 8.7 mmHg (5-10); Arterial Blood Gas Hematocrit 36.8 % (37-47); Base Excess ABG -2.3 mmol/L (-2.0-2.0); Blood Gas Allen Test Pos; Blood Gas Operator Identificat CAK; Blood Gas Sample Site Radial, left; Blood Gas Sample Type Arterial; Carboxyhemoglobin 2.9 %THgb (0.4-20.1); HCO3 ABG 19.8 mmol/L (22-26); HGB O2 Sat 86.1 % (95-100); Ionized Calcium Level - ABG 1.2 mmol/L (1.1-1.4); Methemoglobin 0.4 % (0.4-1.5); Oxygen Device ROOM AIR; PO2 ABG 50.7 mmHg (80.0-100.0); Potassium Level - ABG 3.9 mmol/L (3.5-5.0)
[2022-09-11 14:22] LABS: Troponin(5th) Baseline 12 ng/L (0-10)
[2022-09-11 14:24] LABS: Alanine Aminotransferase 19 U/L (0-33); Albumin Level 4.1 g/dL (3.5-5.2); Alkaline Phosphatase 117 U/L (35-105); Anion Gap 15.9 (5-19); Aspartate Amino Transferase 19 U/L (0-32); Blood Urea Nitrogen 19 mg/dL (6-20); Carbon Dioxide 19 mmol/L (22-29); Chloride 106 mmol/L (98-107); Globulin 2.8 g/dL (1.3-4.6); Glucose 94 mg/dL (65-115); Osmolality Calculated 286 mOsm/kg (285-295); Potassium 3.9 mmol/L (3.5-5.1); Sodium 137 mmol/L (136-145); Total Bilirubin 0.6 mg/dL (0.15-1.2); Total Protein 6.9 g/dL (6.6-8.7)
[2022-09-11] MEDS: ipratropium-albuterol 3 mL Neb INHALATION (14:37)
--- NOTE | 2022-09-11 15:51 | ECG_ITS ---
[facility] Test Date: 2022-09-11 Pat Name: Elena Pulliam Department: Room: Gender: Female Analyst: : 1970 Requested By: Abiodun Johnson Order Number: [id number] Arlette MD: Pola Ferrera M.D. Measurements Intervals [place] Rate: 96 P: 63 SC: 153 QRS: -43 QRSD: 136 T: 76 QT: 434 QTc: 550 Interpretive Statements SINUS RHYTHM LEFT AXIS DEVIATION [QRS AXIS < -30] INTRAVENTRICULAR CONDUCTION DELAY [130+ ms QRS DURATION] POSSIBLE ANTERIOR MYOCARDIAL INFARCTION , OF INDETERMINATE AGE [30 ms Q WAVE IN V3/V4, OR R < 0.2 mV IN V4] Compared to ECG 09/11/2022 13:31:38 Sinus tachycardia no longer present Left ventricular hypertrophy no longer present ST (T wave) deviation no longer present Myocardial infarct finding still present Electronically Signed On 09-11-2022 19:49:05 PUBLICATIONS DESIGNER by Pola Ferrera M.D. [id number]
[2022-09-11 16:06] LABS: Troponin 5 2HR 13.96 ng/L (0-10); Troponin 5 2HR Delta 1.96 ABS# (0-10)
== END 2022-09-11 15:11 | disposition home or self-care (01) ==
PROVIDERS: Emergency Provider Family Medicine; PCP Family Medicine
DX: J44.1 Chronic obstructive pulmonary disease with (acute) exacerbation (principal); F17.210 Nicotine dependence, cigarettes, uncomplicated
CPT/HCPCS: 36415; 36600; 71045; 80051; 80053; 82330; 82805; 84484; 85025; 93005; 94640; 96374; 99285; J2930

== ENCOUNTER 2022-09-14 16:51 | Emergency (ER) | payer MEDICARE, MEDICAID, SELFPAY ==
[2022-09-14 16:52] VITALS: BP 128/87; PULSE 102; RESP 19; O2SAT 98; BMI 25.7
--- NOTE | 2022-09-14 17:00 | ECG_ITS ---
[facility] Test Date: 2022-09-14 Pat Name: Elena Pulliam Department: Room: Gender: Female Developer Advisor: : 1970 Requested By: Abiodun Johnson Order Number: [id number] Arlette MD: Pola Ferrera M.D. Measurements Intervals [place] Rate: 88 P: 40 MN: 151 QRS: -42 QRSD: 132 T: 76 QT: 325 QTc: 395 Interpretive Statements SINUS RHYTHM LEFT AXIS DEVIATION [QRS AXIS < -30] INTRAVENTRICULAR CONDUCTION DELAY [130+ ms QRS DURATION] LEFT VENTRICULAR HYPERTROPHY AND ST-T CHANGE [VOLTAGE CRITERIA PLUS ST/T ABNORMALITY] POSSIBLE ANTERIOR MYOCARDIAL INFARCTION , OF INDETERMINATE AGE [30 ms Q WAVE IN V3/V4, OR R < 0.2 mV IN V4] Compared to ECG 09/11/2022 15:51:27 Left ventricular hypertrophy now present ST (T wave) deviation now present Myocardial infarct finding still present Electronically Signed On 09-15-2022 10:15:51 SERVICE VEHICLE OPERATOR by Pola Ferrera M.D. [id number] kyle
--- NOTE | 2022-09-14 17:00 | XRR_ITS ---
PROCEDURE INFORMATION: Exam: XR Chest Exam date and time: 09/14/2022 5:12 PM Age: 52 years old Clinical indication: Angina pectoris and chest pressure and chest wall pain; Prior surgery; Surgery date: 6+ months; Additional info: Chest pain TECHNIQUE: Imaging protocol: Radiologic exam of the chest. Views: 1 view. COMPARISON: CR (CHEST, ) 09/11/2022 1:34 PM FINDINGS: Tubes, catheters and devices: AICD/pacer device noted in the left chest wall. Lungs: No consolidation. Pleural spaces: No pleural effusion. No pneumothorax. Heart/Mediastinum: Stable cardiomegaly. Bones/joints: Visualized osseous structures are intact. XR/XR chest 1V portable [id number] IMPRESSION: No acute findings.
[2022-09-14 17:08] VITALS: BP 123/96; PULSE 89; RESP 18; O2SAT 98
--- NOTE | 2022-09-14 17:09 | PC.NURSE ---
Pt has a 1/2in nitro paste from EMS
--- NOTE | 2022-09-14 17:20 | W.ED.CHESTPA ---
Documented by User: Abiodun Stone DO 09/23/22 11:24 HPI - Chest Pain General: Chief Complaint: Chest Pain Stated Complaint: CP Time Seen by Provider: 09/14/22 16:54 Source: patient Mode of arrival: EMS History of Present Illness: 52-year-old female presents emergency room with complaint of chest discomfort. She had viral respiratory infection was seen earlier this week she has been coughing heavily since then has been nonproductive subjectively she has had a fever she has a known history of coronary disease. In May of this year she had a stress test that was normal. Chest pain is reproducible with deep inspiration and with palpation along the lower portion of the sternum does not radiate anywhere. She states it woke her up early this morning's been going on throughout the day. MD complaint: chest pain Onset (ago): day(s) Timing of current episode: episodic Prior episodes: Yes Onset: during rest Pain location: substernal Pain radiation: none Severity: mild Quality: sharp Exacerbating factors: inspiration Associated symptoms: Reports dyspnea; Deny abdominal pain, diaphoresis, fever(s), leg edema, nausea, palpitations, sense of impending doom, syncope or vomiting Treatment prior to arrival: none Review of Systems Const: Denies: fever(s), chills, fatigue, malaise or diaphoresis ENMT: Denies: throat pain, ear or mastoid pain, nasal discharge or nasal congestion Card: Reports: chest pain; Denies: palpitations, irregular heart rhythm, edema or syncope Resp: Reports: dyspnea and non-productive cough; Denies: productive cough GI: Denies: abdominal pain, nausea or vomiting : Denies: flank pain, difficulty voiding, dysuria, urinary frequency or urinary urgency Skin/Breast: Denies: rash or pruritus [facility] ED PFSH: Medical History CHF (congestive heart failure) Related to nonischemic cardiomyopathy, most recent ejection fraction with with EF 42%. History of recurrent UTIs History of TIA (transient ischemic attack) HTN (hypertension) ICD (implantable cardioverter-defibrillator) in place Mass of right lobe of liver ~3.5 x 4 cm, indeterminant, hypodense, first noted 11/2021 Nonischemic cardiomyopathy Specific etiology unknown, may have been viral or related to uncontrolled hypertension from her recollection Echocardiogram November 2021 with ejection fraction of 42% - 05/17/22 echo EF now 25% Obstructive pyelonephritis (~11/2021) Urolithiasis Multi stone former. Complicated by at least 1 episode of obstructive pyelonephritis. Multiple procedures required to treat Surgical History S/P ureteral stent placement (~11/2021) Status post cholecystectomy Status post placement of cardiac pacemaker Family History Father , AT AGE 77 CAD (coronary artery disease) Cancer lung cancer Mother , AT AGE 60 Cancer OVARIAN Denies family history of Clotting disorder Anesthesia complication Bleeding disorder Social History Smoking and tobacco status: current every day smoker cigarettes Packs smoked per day: 0.5 Years cigarettes smoked: 45 Second hand smoke exposure: Yes Alcohol intake: current Lives independently: Yes Marital status: service: No Current occupational status: disabled Current gender identity: Female Physical Exam Const: GENERAL APPEARANCE: cooperative and comfortable ORIENTATION/CONSCIOUSNESS: Yes awake, Yes oriented to person, Yes oriented to place and Yes oriented to time HENMT: COMMON NORMALS: normocephalic and atraumatic HEAD & SCALP: normocephalic and atraumatic Resp: COMMON NORMALS: normal respiratory effort, No retractions, No use of accessory muscles and clear to auscultation bilaterally AUSCULTATION: clear to auscultation bilaterally Cardio: COMMON NORMALS: regular rate, regular rhythm and No murmurs present (Cardio) RATE: regular rate RHYTHM: regular rhythm GI: COMMON NORMALS: Soft to palpation and No hepatosplenomegaly present AUSCULTATION: Yes normoactive bowel sounds PALPATION: Yes Soft to palpation, No Tenderness to palpation present (GI), No Guarding due to palpation present (GI) and Yes No hepatosplenomegaly present Extremity: COMMON NORMALS: normal to inspection, capillary refill normal, no clubbing, cyanosis or edema, no calf tenderness and no pedal edema Neuro: SENSORIUM/ORIENTATION: Yes oriented to person, Yes oriented to place and Yes oriented to time Skin: COMMON NORMALS: no rashes or lesions noted GENERAL SKIN EXAM: no rashes or lesions noted Course Vital Signs: Vital signs: Vital Signs Pulse Rate 87 09/14/22 18:43 Respiratory Rate 18 09/14/22 18:43 Blood Pressure 139/68 09/14/22 18:43 Pulse Oximetry 97 09/14/22 18:43 Oxygen Delivery Me thod 09/14/22 16:52 MDM - Chest Pain Medical Decision Making EKG shows no acute changes. Appears to be more respiratory in nature. Given her age and risk factors lab work has been ordered. Care signed out to Dr. Mora at change of shift. See final notes for diagnosis and disposition. Patient presents for chest pains atypical in nature she is point tender along her chest wall is likely muscular in nature her troponin here is negative she is well-appearing here she is stable for discharge she is to follow-up with PCP and return if worsening. Lab Data 09/14/22 17:38 09/14/22 17:38 Radiology Impressions Chest X-Ray 09/14/22 17:00 IMPRESSION: No acute findings. Laboratory Results WBC 13.1 10^3/uL (4.0-10.0) H 09/14/22 17:38 WBC Cancelled 09/14/22 17:38 Corrected WBC Cancelled 09/14/22 17:38 RBC 3.42 10^6/uL (4.1-5.3) L 09/14/22 17:38 RBC Cancelled 09/14/22 17:38 Hgb 11.9 g/dL (11.5-15.3) 09/14/22 17:38 Hgb Cancelled 09/14/22 17:38 Hct 35.8 % (37.0-47.0) L 09/14/22 17:38 Hct Cancelled 09/14/22 17:38 MCV 104.7 fl (81-99) H 09/14/22 17:38 MCV Cancelled 09/14/22 17:38 MCH 34.8 pg (28.0-34.0) H 09/14/22 17:38 MCH Cancelled 09/14/22 17:38 MCHC 33.2 g/dL (30.0-36.0) 09/14/22 17:38 MCHC Cancelled 09/14/22 17:38 RDW 14.6 % (12.1-15.1) 09/14/22 17:38 RDW Cancelled 09/14/22 17:38 Plt Count 174 10^3/cmm (130-400) 09/14/22 17:38 Plt Count Cancelled 09/14/22 17:38 MPV 12.2 fL (7.4-10.4) H 09/14/22 17:38 MPV Cancelled 09/14/22 17:38 Gran % Cancelled 09/14/22 17:38 Neut % (Auto) 84.0 % 09/14/22 17:38 Neut % (Auto) Cancelled 09/14/22 17:38 Lymph % (Auto) 11.2 % 09/14/22 17:38 Lymph % (Auto) Cancelled 09/14/22 17:38 Hart % (Auto) 3.8 % 09/14/22 17:38 Hart % (Auto) Cancelled 09/14/22 17:38 Eos % (Auto) 0.0 % 09/14/22 17:38 Eos % (Auto) Cancelled 09/14/22 17:38 Baso % (Auto) 0.1 % 09/14/22 17:38 Baso % (Auto) Cancelled 09/14/22 17:38 Neut # (Auto) 10.97 10^3/uL (1.8-7.7) H 09/14/22 17:38 Neut # (Auto) Cancelled 09/14/22 17:38 Lymph # (Auto) 1.5 10^3/uL (0.8-4.8) 09/14/22 17:38 Lymph # (Auto) Cancelled 09/14/22 17:38 Hart # (Auto) 0.5 10^3/uL (0.2-0.9) 09/14/22 17:38 Hart # (Auto) Cancelled 09/14/22 17:38 Eos # (Auto) 0.0 10^3/uL (0.0-0.8) 09/14/22 17:38 Eos # (Auto) Cancelled 09/14/22 17:38 Baso # (Auto) 0.0 10^3/uL (0.0-0.1) 09/14/22 17:38 Baso # (Auto) Cancelled 09/14/22 17:38 Absolute Gran (auto) Cancelled 09/14/22 17:38 Nucleated RBC % (auto) 0 % 09/14/22 17:38 Nucleated RBC % (auto) Cancelled 09/14/22 17:38 Nucleated RBCs # 0.0 /100WBC 09/14/22 17:38 Nucleated RBCs # Cancelled 09/14/22 17:38 Sodium 139 mmol/L (136-145) 09/14/22 17:38 Potassium 4.0 mmol/L (3.5-5.1) 09/14/22 17:38 Chloride 108 mmol/L (98-107) H 09/14/22 17:38 Carbon Dioxide 17 mmol/L (22-29) L 09/14/22 17:38 Anion Gap 18.0 (5-19) 09/14/22 17:38 BUN 27 mg/dL (6-20) H 09/14/22 17:38 Creatinine 1.3 mg/dL (0.5-0.9) H 09/14/22 17:38 GFR Calculation 43.0 mL/min (90-130) L 09/14/22 17:38 Glucose 126 mg/dL (65-115) H 09/14/22 17:38 Calculated Osmolality 295 mOsm/kg (285-295) 09/14/22 17:38 Calcium 9.1 mg/dL (8.5-10.5) 09/14/22 17:38 Troponin T Baseline 13 ng/L (0-10) H 09/14/22 17:38 Discharge Plan Discharge Patient Disposition: Home Clinical Impression: Chest pain Condition: Stable Prescriptions: No Action citalopram [Celexa] 40 mg tablet 40 mg PO QAM zolpidem 10 mg tablet 10 mg PO BEDTIME aspirin [Adult Low Dose Aspirin] 81 mg tablet,delayed release (DR/EC) 162 mg PO QAM Hold Instructions: Resume on 04/26/22. Resume after 30 days of full dose aspirin nitroglycerin [Nitrostat] 0.4 mg tablet, sublingual 0.4 mg SUBLINGUAL Q5M PRN (Reason: chest pain) Qty: 25 3RF ferrous sulfate 325 mg (65 mg iron) tablet 325 mg PO QAM sacubitril-valsartan 97-103 mg tablet 1 tab PO BID Qty: 120 3RF Vitamin B-12 50 mcg Tablet 50 mcg PO QAM montelukast 10 mg tablet 10 mg PO QAM levalbuterol tartrate 45 mcg/actuation Hfa Aerosol Inhaler 2 inh INHALATION Q6H PRN (Reason: Shortness Of Breath) prednisone 20 mg tablet 20 mg PO TID Qty: 15 0RF Rx Instructions: 1 p.o. 3 times daily x3 days, 1 p.o. twice daily x2 days, 1 p.o. daily x2 days carvedilol 25 mg tablet 12.5 mg PO BID Qty: 60 4RF furosemide [Lasix] 20 mg tablet 20 mg PO DAILY PRN (Reason: edema) Qty: 30 0RF hydrocodone-acetaminophen 5-325 mg tablet 1 tab PO Q6H PRN (Reason: pain) Qty: 20 0RF pantoprazole 40 mg Tablet,Delayed Release (Dr/Ec) 40 mg PO DAILY Discharge Orders: Discharge ED (Routine); Ordered 09/14/22 Ordered By: Marc Mora Referrals: Elena Gray MD [Primary Care Provider] - 1-3 days Discharge Diet: Advance as tolerated Discharge Activity: Resume usual activity Patient Instructions: Chest Pain (ED) Coding Level of Care Code ED Ramp Service Agent for Chg Fwd Documented by User: Marc Mora MD 09/14/22 18:35 HPI - Chest Pain General: Chief Complaint: Chest Pain Stated Complaint: CP Time Seen by Provider: 09/14/22 16:54 PFSH ED PFSH: Medical History CHF (congestive heart failure) Related to nonischemic cardiomyopathy, most recent ejection fraction with with EF 42%. History of recurrent UTIs History of TIA (transient ischemic attack) HTN (hypertension) ICD (implantable cardioverter-defibrillator) in place Mass of right lobe of liver ~3.5 x 4 cm, indeterminant, hypodense, first noted 11/2021 Nonischemic cardiomyopathy Specific etiology unknown, may have been viral or related to uncontrolled hypertension from her recollection Echocardiogram November 2021 with ejection fraction of 42% - 05/17/22 echo EF now 25% Obstructive pyelonephritis (~11/2021) Urolithiasis Multi stone former. Complicated by at least 1 episode of obstructive pyelonephritis. Multiple procedures required to treat Surgical History S/P ureteral stent placement (~11/2021) Status post cholecystectomy Status post placement of cardiac pacemaker Family History (Reviewed 09/23/22 @ 11: by Abiodun Stone DO) Father , AT AGE 77 CAD (coronary artery disease) Cancer lung cancer Mother , AT AGE 60 Cancer OVARIAN Denies family history of Clotting disorder Anesthesia complication Bleeding disorder Social History Smoking and tobacco status: current every day smoker cigarettes Packs smoked per day: 0.5 Years cigarettes smoked: 45 Second hand smoke exposure: Yes Alcohol intake: current Lives independently: Yes Marital status: service: No Current occupational status: disabled Current gender identity: Female Course Vital Signs: Vital signs: Vital Signs Pulse Rate 87 09/14/22 18:43 Respiratory Rate 18 09/14/22 18:43 Blood Pressure 139/68 09/14/22 18:43 Pulse Oximetry 97 09/14/22 18:43 Oxygen Delivery Me thod 09/14/22 16:52 MDM - Chest Pain Medical Decision Making Patient presents for chest pains atypical in nature she is point tender along her chest wall is likely muscular in nature her troponin here is negative she is well-appearing here she is stable for discharge she is to follow-up with PCP and return if worsening. Lab Data 09/14/22 17:38 09/14/22 17:38 Radiology Impressions Chest X-Ray 09/14/22 17:00 IMPRESSION: No acute findings. Laboratory Results WBC 13.1 10^3/uL (4.0-10.0) H 09/14/22 17:38 WBC Cancelled 09/14/22 17:38 Corrected WBC Cancelled 09/14/22 17:38 RBC 3.42 10^6/uL (4.1-5.3) L 09/14/22 17:38 RBC Cancelled 09/14/22 17:38 Hgb 11.9 g/dL (11.5-15.3) 09/14/22 17:38 Hgb Cancelled 09/14/22 17:38 Hct 35.8 % (37.0-47.0) L 09/14/22 17:38 Hct Cancelled 09/14/22 17:38 MCV 104.7 fl (81-99) H 09/14/22 17:38 MCV Cancelled 09/14/22 17:38 MCH 34.8 pg (28.0-34.0) H 09/14/22 17:38 MCH Cancelled 09/14/22 17:38 MCHC 33.2 g/dL (30.0-36.0) 09/14/22 17:38 MCHC Cancelled 09/14/22 17:38 RDW 14.6 % (12.1-15.1) 09/14/22 17:38 RDW Cancelled 09/14/22 17:38 Plt Count 174 10^3/cmm (130-400) 09/14/22 17:38 Plt Count Cancelled 09/14/22 17:38 MPV 12.2 fL (7.4-10.4) H 09/14/22 17:38 MPV Cancelled 09/14/22 17:38 Gran % Cancelled 09/14/22 17:38 Neut % (Auto) 84.0 % 09/14/22 17:38 Neut % (Auto) Cancelled 09/14/22 17:38 Lymph % (Auto) 11.2 % 09/14/22 17:38 Lymph % (Auto) Cancelled 09/14/22 17:38 Hart % (Auto) 3.8 % 09/14/22 17:38 Hart % (Auto) Cancelled 09/14/22 17:38 Eos % (Auto) 0.0 % 09/14/22 17:38 Eos % (Auto) Cancelled 09/14/22 17:38 Baso % (Auto) 0.1 % 09/14/22 17:38 Baso % (Auto) Cancelled 09/14/22 17:38 Neut # (Auto) 10.97 10^3/uL (1.8-7.7) H 09/14/22 17:38 Neut # (Auto) Cancelled 09/14/22 17:38 Lymph # (Auto) 1.5 10^3/uL (0.8-4.8) 09/14/22 17:38 Lymph # (Auto) Cancelled 09/14/22 17:38 Hart # (Auto) 0.5 10^3/uL (0.2-0.9) 09/14/22 17:38 Hart # (Auto) Cancelled 09/14/22 17:38 Eos # (Auto) 0.0 10^3/uL (0.0-0.8) 09/14/22 17:38 Eos # (Auto) Cancelled 09/14/22 17:38 Baso # (Auto) 0.0 10^3/uL (0.0-0.1) 09/14/22 17:38 Baso # (Auto) Cancelled 09/14/22 17:38 Absolute Gran (auto) Cancelled 09/14/22 17:38 Nucleated RBC % (auto) 0 % 09/14/22 17:38 Nucleated RBC % (auto) Cancelled 09/14/22 17:38 Nucleated RBCs # 0.0 /100WBC 09/14/22 17:38 Nucleated RBCs # Cancelled 09/14/22 17:38 Sodium 139 mmol/L (136-145) 09/14/22 17:38 Potassium 4.0 mmol/L (3.5-5.1) 09/14/22 17:38 Chloride 108 mmol/L (98-107) H 09/14/22 17:38 Carbon Dioxide 17 mmol/L (22-29) L 09/14/22 17:38 Anion Gap 18.0 (5-19) 09/14/22 17:38 BUN 27 mg/dL (6-20) H 09/14/22 17:38 Creatinine 1.3 mg/dL (0.5-0.9) H 09/14/22 17:38 GFR Calculation 43.0 mL/min (90-130) L 09/14/22 17:38 Glucose 126 mg/dL (65-115) H 09/14/22 17:38 Calculated Osmolality 295 mOsm/kg (285-295) 09/14/22 17:38 Calcium 9.1 mg/dL (8.5-10.5) 09/14/22 17:38 Troponin T Baseline 13 ng/L (0-10) H 09/14/22 17:38 Discharge Plan Discharge Patient Disposition: Home Clinical Impression: Chest pain Condition: Stable Prescriptions: No Action citalopram [Celexa] 40 mg tablet 40 mg PO QAM zolpidem 10 mg tablet 10 mg PO BEDTIME aspirin [Adult Low Dose Aspirin] 81 mg tablet,delayed release (DR/EC) 162 mg PO QAM Hold Instructions: Resume on 04/26/22. Resume after 30 days of full dose aspirin nitroglycerin [Nitrostat] 0.4 mg tablet, sublingual 0.4 mg SUBLINGUAL Q5M PRN (Reason: chest pain) Qty: 25 3RF ferrous sulfate 325 mg (65 mg iron) tablet 325 mg PO QAM sacubitril-valsartan 97-103 mg tablet 1 tab PO BID Qty: 120 3RF Vitamin B-12 50 mcg Tablet 50 mcg PO QAM montelukast 10 mg tablet 10 mg PO QAM levalbuterol tartrate 45 mcg/actuation Hfa Aerosol Inhaler 2 inh INHALATION Q6H PRN (Reason: Shortness Of Breath) prednisone 20 mg tablet 20 mg PO TID Qty: 15 0RF Rx Instructions: 1 p.o. 3 times daily x3 days, 1 p.o. twice daily x2 days, 1 p.o. daily x2 days carvedilol 25 mg tablet 12.5 mg PO BID Qty: 60 4RF furosemide [Lasix] 20 mg tablet 20 mg PO DAILY PRN (Reason: edema) Qty: 30 0RF hydrocodone-acetaminophen 5-325 mg tablet 1 tab PO Q6H PRN (Reason: pain) Qty: 20 0RF pantoprazole 40 mg Tablet,Delayed Release (Dr/Ec) 40 mg PO DAILY Discharge Orders: Discharge ED (Routine); Ordered 09/14/22 Ordered By: Marc Mora Referrals: Elena Gray MD [Primary Care Provider] - 1-3 days Discharge Diet: Advance as tolerated Discharge Activity: Resume usual activity Patient Instructions: Chest Pain (ED) Coding Level of Care Code ED Ramp Service Agent for Wesley Herrera
[2022-09-14 18:04] VITALS: BP 139/68; PULSE 87; RESP 18; O2SAT 97
[2022-09-14 18:04] LABS: Basophils % 0.1 %; Hematocrit 35.8 % (37.0-47.0); Hemoglobin 11.9 g/dL (11.5-15.3); Lymphocytes # 1.5 10^3/uL (0.8-4.8); Lymphocytes % 11.2 %; Mean Corpuscular HGB Conc 33.2 g/dL (30.0-36.0); Mean Corpuscular Hemoglobin 34.8 pg (28.0-34.0); Mean Corpuscular Volume 104.7 fl (81-99); Mean Platelet Volume 12.2 fL (7.4-10.4); Monocytes # 0.5 10^3/uL (0.2-0.9); Monocytes % 3.8 %; Neutrophils # 10.97 10^3/uL (1.8-7.7); Nucleated Red Blood Cells % 0 %; Platelet Count 174 10^3/cmm (130-400); Red Blood Count 3.42 10^6/uL (4.1-5.3); Red Cell Distribution Width 14.6 % (12.1-15.1); White Blood Count 13.1 10^3/uL (4.0-10.0)
[2022-09-14 18:20] LABS: Troponin(5th) Baseline 13 ng/L (0-10)
[2022-09-14 18:21] LABS: Blood Urea Nitrogen 27 mg/dL (6-20); Calcium 9.1 mg/dL (8.5-10.5); Carbon Dioxide 17 mmol/L (22-29); Chloride 108 mmol/L (98-107); Glucose 126 mg/dL (65-115); Osmolality Calculated 295 mOsm/kg (285-295); Sodium 139 mmol/L (136-145)
[2022-09-14] MEDS: HYDROcodone-acetaminophen 5-325 mg Tablet 1 TAB PO (18:38)
[2022-09-14 18:43] VITALS: BP 139/68; PULSE 87; RESP 18; O2SAT 97
== END 2022-09-14 18:44 | disposition home or self-care (01) ==
PROVIDERS: Family Medicine; Emergency Provider Emergency Medicine; PCP Family Medicine
DX: R07.9 Chest pain, unspecified (principal); R05.9 Cough, unspecified; F17.210 Nicotine dependence, cigarettes, uncomplicated; Z95.810 Presence of automatic (implantable) cardiac defibrillator; Z79.82 Long term (current) use of aspirin; Z86.73 Personal history of transient ischemic attack (TIA), and cerebral infarction without residual deficits
CPT/HCPCS: 36415; 71045; 80048; 84484; 85025; 93005; 99285

== ENCOUNTER 2022-09-29 14:56 | Emergency (ER) | payer MEDICARE, MEDICAID, SELFPAY ==
[2022-09-29 14:56] VITALS: BP 123/75; PULSE 76; RESP 18; O2SAT 98; BMI 29.1
--- NOTE | 2022-09-29 15:14 | W.ED.CHESTPA ---
HPI - Chest Pain General: Chief Complaint: Chest Pain Stated Complaint: CHEST PAIN Time Seen by Provider: 09/29/22 15:14 History of Present Illness: Ms. Pulliam is a 52-year-old lady with history of hypertension, nonischemic cardiomyopathy, status post ICD placement presenting to the emergency department due to chest pain. She reports having mild cough however sudden onset of pain in the right chest with radiation down the arm and shoulder yesterday. Notes some dyspnea. Course of symptoms have worsened. Intensity is moderate to severe. No other specific changes in health, exacerbating, or alleviating factors identified. Onset (ago): day(s) Timing of current episode: increasing Prior episodes: No Onset: during rest Pain location: right chest Pain radiation: right arm, back and right shoulder Severity: severe Quality: sharp Relieving factors: nothing Exacerbating factors: exertion, inspiration and movement Associated symptoms: Reports dyspnea Review of Systems General: Reports: 10 or more systems reviewed and unremarkable except in HPI and below Resp: Reports: dyspnea PFSH ED PFSH: Medical History CHF (congestive heart failure) Related to nonischemic cardiomyopathy, most recent ejection fraction with with EF 42%. History of recurrent UTIs History of TIA (transient ischemic attack) HTN (hypertension) ICD (implantable cardioverter-defibrillator) in place Mass of right lobe of liver ~3.5 x 4 cm, indeterminant, hypodense, first noted 11/2021 Nonischemic cardiomyopathy Specific etiology unknown, may have been viral or related to uncontrolled hypertension from her recollection Echocardiogram November 2021 with ejection fraction of 42% - 05/17/22 echo EF now 25% Obstructive pyelonephritis (~11/2021) Urolithiasis Multi stone former. Complicated by at least 1 episode of obstructive pyelonephritis. Multiple procedures required to treat Surgical History S/P ureteral stent placement (~11/2021) Status post cholecystectomy Status post placement of cardiac pacemaker Family History Father , AT AGE 77 CAD (coronary artery disease) Cancer lung cancer Mother , AT AGE 60 Cancer OVARIAN Denies family history of Clotting disorder Anesthesia complication Bleeding disorder Social History Smoking and tobacco status: current every day smoker cigarettes Packs smoked per day: 0.5 Years cigarettes smoked: 45 Second hand smoke exposure: Yes Alcohol intake: current Lives independently: Yes Marital status: service: No Current occupational status: disabled Current gender identity: Female Physical Exam Const: COMMON NORMALS: alert GENERAL APPEARANCE: cooperative and well developed HENMT: COMMON NORMALS: normocephalic and atraumatic HEAD & SCALP: normocephalic and atraumatic Eye: COMMON NORMALS: conjunctivae normal CONJUNCTIVA: Yes conjunctivae normal SCLERA: sclerae normal Neck/C-Spine: COMMON NORMALS: supple GENERAL: Yes trachea midline Resp: COMMON NORMALS: clear to auscultation bilaterally EFFORT & INSPECTION: Yes able to speak in complete sentences AUSCULTATION: clear to auscultation bilaterally Cardio: COMMON NORMALS: regular rate and regular rhythm RATE: regular rate RHYTHM: regular rhythm GI: COMMON NORMALS: Soft to palpation PALPATION: Yes Soft to palpation and No Tenderness to palpation present (GI) Extremity: GENERAL: Yes normal exam except as noted and No edema Neuro: COMMON NORMALS: moves all extremities SENSORIUM/ORIENTATION: Yes alert and No Orientation impaired Psych: COMMON NORMALS: mental status grossly normal and Normal thought process present THOUGHT PROCESS: Normal thought process present Course Vital Signs: Vital signs: Vital Signs Pulse Rate 89 09/29/22 19:50 Respiratory Rate 16 09/29/22 19:50 Blood Pressure 122/76 09/29/22 19:50 Pulse Oximetry 92 09/29/22 19:50 Oxygen Delivery Me thod 09/29/22 19:50 Oxygen Flow Rate 2 09/29/22 18:10 MDM - Chest Pain Medical Decision Making 52-year-old lady resenting with chest pain and associated nausea. Exam as above. EKG shows sinus rhythm with interventricular conduction leg nonspecific ST segment abnormalities. Labs with no leukocytosis, macrocytic anemia, normal platelet count. Metabolic panel with no significant electrolyte arrangement. 2-hour delta troponin is negative proBNP is mildly elevated. D-dimer elevated. Chest x-ray with no lobar consolidation or pneumothorax. D-dimer was obtained as patient cannot be negative by PERC criteria and symptomatology. No evidence of aneurysm, cardiomegaly with no other cardial effusion and suspected left hydronephrosis. Hydronephrosis was previously noted on imaging. Patient proved with analgesia, also given antiemetic and Lasix. Patient had stress test on 05/18/22 with reduced ejection fraction and no significant soren-infarct ischemia for large previous infarct. Patient improvement in symptoms and I do not like that she requires inpatient admission at this time given that she is on baseline oxygen and had recent stress imaging. Most likely etiology of patient symptoms is multifactorial including heart failure exacerbation. The results of ED evaluation were discussed with the patient including prescriptions and/or symptomatic cares (if applicable) including appropriate and responsible use, followup plan, and return precautions. The patient verbalized understanding and felt safe for discharge. Medical Records I reviewed the patient's medical records. Lab Data I reviewed the patient's lab results. 09/29/22 15:10 09/29/22 15:10 Radiology Impressions Chest X-Ray 09/29/22 15:27 IMPRESSION: 1. No acute cardiopulmonary finding. No change. Chest CTA 09/29/22 15:49 IMPRESSION: 1. No evidence of pulmonary embolism. 2. Cardiomegaly 3. Small pericardial effusion. 4. Suspected left hydronephrosis. 5. Right liver lesion not significantly changed. Laboratory Results WBC 8.9 10^3/uL (4.0-10.0) 09/29/22 15:10 RBC 3.22 10^6/uL (4.1-5.3) L 09/29/22 15:10 Hgb 11.2 g/dL (11.5-15.3) L 09/29/22 15:10 Hct 35.5 % (37.0-47.0) L 09/29/22 15:10 MCV 110.2 fl (81-99) H 09/29/22 15:10 MCH 34.8 pg (28.0-34.0) H 09/29/22 15:10 MCHC 31.5 g/dL (30.0-36.0) 09/29/22 15:10 RDW 13.8 % (12.1-15.1) 09/29/22 15:10 Plt Count 132 10^3/cmm (130-400) 09/29/22 15:10 MPV 11.7 fL (7.4-10.4) H 09/29/22 15:10 Neut % (Auto) 66.5 % 09/29/22 15:10 Lymph % (Auto) 26.4 % 09/29/22 15:10 [place]duffie % (Auto) 5.2 % 09/29/22 15:10 Eos % (Auto) 0.8 % 09/29/22 15:10 Baso % (Auto) 0.7 % 09/29/22 15:10 Neut # (Auto) 5.92 10^3/uL (1.8-7.7) 09/29/22 15:10 Lymph # (Auto) 2.4 10^3/uL (0.8-4.8) 09/29/22 15:10 [place]duffie # (Auto) 0.5 10^3/uL (0.2-0.9) 09/29/22 15:10 Eos # (Auto) 0.1 10^3/uL (0.0-0.8) 09/29/22 15:10 Baso # (Auto) 0.1 10^3/uL (0.0-0.1) 09/29/22 15:10 Nucleated RBC % (auto) 0 % 09/29/22 15:10 Nucleated RBCs # 0.0 /100WBC 09/29/22 15:10 D-Dimer 2.29 ug/mIFEU (0-0.59) H 09/29/22 15:10 Sodium 141 mmol/L (136-145) 09/29/22 15:10 Potassium 3.6 mmol/L (3.5-5.1) 09/29/22 15:10 Chloride 106 mmol/L (98-107) 09/29/22 15:10 Carbon Dioxide 22 mmol/L (22-29) 09/29/22 15:10 Anion Gap 16.6 (5-19) 09/29/22 15:10 BUN 18 mg/dL (6-20) 09/29/22 15:10 Creatinine 1.2 mg/dL (0.5-0.9) H 09/29/22 15:10 GFR Calculation 47.2 mL/min (90-130) L 09/29/22 15:10 Glucose 77 mg/dL (65-115) 09/29/22 15:10 Calculated Osmolality 293 mOsm/kg (285-295) 09/29/22 15:10 Calcium 8.8 mg/dL (8.5-10.5) 09/29/22 15:10 Total Bilirubin 0.3 mg/dL (0.15-1.2) 09/29/22 15:10 AST 13 U/L (0-32) 09/29/22 15:10 ALT 15 U/L (0-33) 09/29/22 15:10 Alkaline Phosphatase 88 U/L (35-105) 09/29/22 15:10 Troponin T Baseline 28 ng/L (0-10) H 09/29/22 15:10 Troponin T 120 Minute 29.10 ng/L (0-10) H 09/29/22 17:45 Delta Troponin T 1.10 ABS# (0-10) 09/29/22 17:45 NT-Pro-B Natriuret Pep 5064 pg/mL (0-125) H 09/29/22 15:10 Total Protein 6.3 g/dL (6.6-8.7) L 09/29/22 15:10 Albumin 3.6 g/dL (3.5-5.2) 09/29/22 15:10 Globulin 2.7 g/dL (1.3-4.6) 09/29/22 15:10 Lipase 28 U/L (13-60) 09/29/22 15:10 Discharge Plan Discharge Patient Disposition: Home Clinical Impression: Chest pain, Acute on chronic clinical systolic heart failure, Pericardial effusion, Anemia, macrocytic, CKD (chronic kidney disease) Condition: Stable Prescriptions: New oxycodone 5 mg tablet 5 mg PO Q4H PRN (Reason: pain) Qty: 10 0RF potassium chloride 10 mEq capsule, extended release 10 meq PO BID Qty: 14 0RF No Action citalopram [Celexa] 40 mg tablet 40 mg PO QPM zolpidem 10 mg tablet 10 mg PO BEDTIME aspirin [Adult Low Dose Aspirin] 81 mg tablet,delayed release (DR/EC) 162 mg PO QAM Hold Instructions: Resume on 10/19/22. Until after percutaneous tube placed in the left kidney nitroglycerin [Nitrostat] 0.4 mg tablet, sublingual 0.4 mg SUBLINGUAL Q5M PRN (Reason: chest pain) Qty: 25 3RF ferrous sulfate 325 mg (65 mg iron) tablet 325 mg PO QAM sacubitril-valsartan 97-103 mg tablet 1 tab PO BID Qty: 120 3RF Hold Instructions: Resume on 10/09/22. Vitamin B-12 50 mcg Tablet 50 mcg PO QAM montelukast 10 mg tablet 10 mg PO QAM levalbuterol tartrate 45 mcg/actuation Hfa Aerosol Inhaler 2 inh INHALATION Q6H PRN (Reason: Shortness Of Breath) Percocet 5-325 mg tablet 1 tab PO Q6H Qty: 12 0RF pantoprazole 40 mg Tablet,Delayed Release (Dr/Ec) 40 mg PO DAILY furosemide [Lasix] 20 mg tablet 20 mg PO BID PRN (Reason: Edema) cyclobenzaprine 10 mg Tablet 10 mg PO TID PRN (Reason: Muscle Spasms) Qty: 30 0RF gabapentin 100 mg Capsule 200 mg PO TID Qty: 180 0RF capsaicin 0.025 % Cream 1 applic topical QID PRN (Reason: Pain) Qty: 60 0RF acetaminophen 325 mg Tablet 650 mg PO Q6H PRN (Reason: Mild/Mod Pain Or Temp >/= 101) Qty: 90 0RF carvedilol 3.125 mg tablet 3.125 mg PO BID Qty: 60 0RF Rx Instructions: must administer with a meal/food Discharge Orders: Discharge ED (Routine); Ordered 09/29/22 Ordered By: Schuyler Borden Referrals: Elena Gray MD [Occupational Therapist] - Discharge Diet: Cardiac Discharge Activity: Increase activity as tolerated Patient Instructions: Chest Pain (ED), Opioid Safety, Pain Management Activity Restrictions/Additional Instructions: Thank you for visiting the emergency department. You were seen and evaluated for chest pain. The exact cause of your symptoms is unclear however does not appear to need inpatient management at this time. You do have evidence of volume overload. I recommend taking Lasix 20 mg twice daily for the next 7 days and addition to potassium supplementation that I will prescribe. Given this change you need repeat laboratory studies within the next week to reevaluate kidney function and electrolytes. You may use exhi-bwk-vopksqe medications such as acetaminophen and ibuprofen for pain however please do not exceed the daily recommended dosage as listed on the packaging and please keep in mind that many namebrand medications contain the same active ingredients. Please avoid these medications if previously instructed to do so by another physician due to other underlying medical condition. Use caution with NSAIDs given your underlying kidney disease. I will message case management for follow-up with cardiology. Incidentally noted again on imaging is suspected left hydronephrosis, I recommend PCP order outpatient renal ultrasound for further characterization and further imaging as necessary. Return to the emergency department for worsening symptoms, shortness of breath, uncontrolled pain, inability to tolerate oral intake, decreased urine output, lightheadedness or dizziness, or anything else that you are concerned about a feel needs emergency department evaluation. Coding Level of Care Code ED Aerial Gunner Superintendent for Chg Fwd Exam Comprehensive
--- NOTE | 2022-09-29 15:27 | XR_ITS ---
WS: [id number] Exam: XR chest 1V portable [id number] Date/Time of Exam: 09/29/2022 3:27 PM Reason For Exam: cp Comparison 09/14/2022. The lungs are fully expanded and clear. Heart size top limits normal. The mediastinum is normal in co ntour. An ICD superimposes the left chest. Bony structures are intact. XR/XR chest 1V portable [id number] IMPRESSION: 1. No acute cardiopulmonary finding. No change.
[2022-09-29 15:31] VITALS: RESP 20
[2022-09-29] MEDS: fentaNYL 50 mcg/mL INJ 2mL IVP (15:31)
[2022-09-29 15:35] LABS: Basophils # 0.1 10^3/uL (0.0-0.1); Basophils % 0.7 %; Eosinophils # 0.1 10^3/uL (0.0-0.8); Eosinophils % 0.8 %; Hematocrit 35.5 % (37.0-47.0); Hemoglobin 11.2 g/dL (11.5-15.3); Lymphocytes # 2.4 10^3/uL (0.8-4.8); Lymphocytes % 26.4 %; Mean Corpuscular HGB Conc 31.5 g/dL (30.0-36.0); Mean Corpuscular Hemoglobin 34.8 pg (28.0-34.0); Mean Corpuscular Volume 110.2 fl (81-99); Mean Platelet Volume 11.7 fL (7.4-10.4); Monocytes # 0.5 10^3/uL (0.2-0.9); Monocytes % 5.2 %; Neutrophils # 5.92 10^3/uL (1.8-7.7); Neutrophils % 66.5 %; Nucleated Red Blood Cells % 0 %; Platelet Count 132 10^3/cmm (130-400); Red Blood Count 3.22 10^6/uL (4.1-5.3); Red Cell Distribution Width 13.8 % (12.1-15.1); White Blood Count 8.9 10^3/uL (4.0-10.0)
[2022-09-29 15:47] LABS: D Dimer 2.29 ug/mIFEU (0-0.59)
--- NOTE | 2022-09-29 15:49 | CTR_ITS ---
PROCEDURE INFORMATION: Exam: CTA Chest With Contrast Exam date and time: 09/29/2022 5:02 PM Age: 52 years old Clinical indication: Chest wall pain and right-sided; Additional info: R chest pain, SOB TECHNIQUE: Imaging protocol: Computed tomographic angiography of the chest with contrast. 3D rendering (Not supervised by radiologist): MIP and/or 3D reconstructed images were created by the technologist. Radiation optimization: All CT scans at this facility use at least one of these dose optimization techniques: automated exposure control; mA and/or kV adjustment per patient size (includes targeted exams where dose is matched to clinical indication); or iterative reconstruction. Contrast material: OMNIPAQUE 350; Contrast volume: 95 ml; Contrast route: INTRAVENOUS (IV); COMPARISON: CT angio chest PE protcl [id number] 05/22/2022 5:47 AM RADIATION DOSE METRICS: Total DLP (mGy-cm): 416.16 FINDINGS: Limitations: Study is somewhat limited by patient respiratory motion. Tubes, catheters and devices: There is transvenous AICD in place with leads in appropriate position. Pulmonary arteries: There is no evidence of filling defects within the pulmonary arterial circulation to suggest pulmonary embolism. Aorta: There is no thoracic aortic aneurysm or dissection. Lungs: There is dependent atelectasis at both lung bases. There is calcified granuloma at the right lung base. Pleural spaces: There are small bilateral pleural effusions. Heart: The heart is moderately enlarged. There is small pericardial effusion. There is left atrial and left ventricular enlargement. Lymph nodes: There is no evidence of lymphadenopathy. There are few calcified mediastinal lymph nodes in keeping with old granulomatous disease. Kidneys and ureters: There is suggestion of left hydronephrosis only partly imaged. There is a 3.5 cm sized mass in the inferior posterior right lobe of the liver only partly imaged on this study but grossly unchanged compared with previous Bones/joints: There are old healed fractures of left 4th through 7th ribs. Soft tissues: Unremarkable. CT/CT angio chest PE protcl [id number] IMPRESSION: 1. No evidence of pulmonary embolism. 2. Cardiomegaly 3. Small pericardial effusion. 4. Suspected left hydronephrosis. 5. Right liver lesion not significantly changed.
--- NOTE | 2022-09-29 15:49 | ECG_ITS ---
[facility] Test Date: 2022-09-29 Pat Name: Elena Pulliam Department: Room: Gender: Female Spectroscopist: : 1970 Requested By: Schuyler Borden Order Number: [id number] Arlette MD: Pola Ferrera M.D. Measurements Intervals [place] Rate: 79 P: 46 OR: 153 QRS: -41 QRSD: 134 T: 71 QT: 429 QTc: 493 Interpretive Statements SINUS RHYTHM LEFT AXIS DEVIATION [QRS AXIS < -30] INTRAVENTRICULAR CONDUCTION DELAY [130+ ms QRS DURATION] LEFT VENTRICULAR HYPERTROPHY AND ST-T CHANGE [VOLTAGE CRITERIA PLUS ST/T ABNORMALITY] POSSIBLE ANTERIOR MYOCARDIAL INFARCTION , OF INDETERMINATE AGE [30 ms Q WAVE IN V3/V4, OR R < 0.2 mV IN V4] Compared to ECG 09/14/2022 17:03:45 No significant changes Electronically Signed On 09-30-2022 7:52:38 BARK TANNER by Pola Ferrera M.D. [id number]
[2022-09-29 15:55] LABS: Troponin(5th) Baseline 28 ng/L (0-10)
[2022-09-29 16:03] LABS: Alanine Aminotransferase 15 U/L (0-33); Albumin Level 3.6 g/dL (3.5-5.2); Alkaline Phosphatase 88 U/L (35-105); Anion Gap 16.6 (5-19); Aspartate Amino Transferase 13 U/L (0-32); Blood Urea Nitrogen 18 mg/dL (6-20); Calcium 8.8 mg/dL (8.5-10.5); Carbon Dioxide 22 mmol/L (22-29); Chloride 106 mmol/L (98-107); Globulin 2.7 g/dL (1.3-4.6); Glomerular Filtration Rate 47.2 mL/min (90-130); Glucose 77 mg/dL (65-115); Lipase 28 U/L (13-60); NT Pro B Type Natriuretic Pept 5064 pg/mL (0-125); Osmolality Calculated 293 mOsm/kg (285-295); Potassium 3.6 mmol/L (3.5-5.1); Sodium 141 mmol/L (136-145); Total Bilirubin 0.3 mg/dL (0.15-1.2); Total Protein 6.3 g/dL (6.6-8.7)
--- NOTE | 2022-09-29 16:11 | PC.PHAR ---
ATTEMPTED TO REQUEST MED LIST FROM [facility] AT 1:30PM, 2:30 PM AND 4:10 PM- KEEP BEING SENT TO VOICE MAIL FOR THE APARTMENTS
[2022-09-29 16:13] VITALS: RESP 18
[2022-09-29] MEDS: HYDROmorphone 1 mg/mL INJ 1 mL 0.5 MG IVP ×2 (16:13→18:03)
[2022-09-29] MEDS: iohexol 350 mg/mL 500 mL Btl (per mL) IV (17:07)
--- NOTE | 2022-09-29 17:27 | ECG_ITS ---
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 Measurements Intervals [place] Rate: 78 P: 48 TN: 159 QRS: -43 QRSD: 134 T: 72 QT: 445 QTc: 509 Interpretive Statements SINUS RHYTHM LEFT AXIS DEVIATION [QRS AXIS < -30] INTRAVENTRICULAR CONDUCTION DELAY [130+ ms QRS DURATION] LEFT VENTRICULAR HYPERTROPHY AND ST-T CHANGE [VOLTAGE CRITERIA PLUS ST/T ABNORMALITY] POSSIBLE ANTERIOR MYOCARDIAL INFARCTION , OF INDETERMINATE AGE [30 ms Q WAVE IN V3/V4, OR R < 0.2 mV IN V4] Compared to ECG 09/29/2022 15:49:47 No significant changes Electronically Signed On 09-30-2022 7:52:10 RIB STIFFENER AND HEEL DIPPER by Pola Ferrera M.D. [id number]
[2022-09-29 18:03] VITALS: RESP 20
[2022-09-29 18:10] VITALS: BP 108/88; PULSE 77; RESP 20; O2SAT 98
[2022-09-29] MEDS: ondansetron 2 mg/ML SDV 2 mL 4 MG IVP (18:10)
[2022-09-29] MEDS: acetaminophen 500 mg Tablet 1000 MG PO (18:49)
[2022-09-29] MEDS: ketorolac 30 mg/mL INJ 15 MG IVP (18:50)
[2022-09-29] MEDS: alum-mag-hydroxide-sime 30 mL UDC PO (18:50)
[2022-09-29] MEDS: FUROsemide 10 mg/mL SDV 4mL 40 MG IVP (19:34)
[2022-09-29 19:50] VITALS: BP 122/76; PULSE 89; RESP 16; O2SAT 92
--- NOTE | 2022-10-04 10:50 | DCPLANNER ---
Addendum entered by Kathi Bruno 11/11/22 14:31: Patient had a follow up appointment scheduled with heart care - patient did attend appointment. Addendum entered by Kathi Bruno 10/04/22 14:46: Patient has a follow up appointment scheduled for Monday, October 26, 2022 at 3:[address] Pineda at [facility]. Clinic will call patient with appointment information. Original Note: fight manager had message to schedule a follow up appointment for patient with cardiology. fight manager sent patients information to the front office staff at [facility]. Patients information will be printed and reviewed. Clinic will call patient with appointment information.
== END 2022-09-29 19:51 | disposition home or self-care (01) ==
PROVIDERS: Emergency Provider Emergency Medicine; PCP Family Medicine
DX: R07.9 Chest pain, unspecified (principal); I31.39 Other pericardial effusion (noninflammatory); D53.9 Nutritional anemia, unspecified; I13.0 Hypertensive heart and chronic kidney disease with heart failure and stage 1 through stage 4 chronic kidney disease, or unspecified chronic kidney disease; N18.9 Chronic kidney disease, unspecified; I42.8 Other cardiomyopathies
CPT/HCPCS: 36415; 71045; 71275; 80053; 83690; 83880; 84484; 85025; 85378; 93005; 96374; 96375; 96376; 99285; J1170; J1885; J1940; J2405; J3010; Q9967

== ENCOUNTER 2022-09-30 05:49 | Observation (INO) | payer MEDICARE, MEDICAID, SELFPAY ==
[2022-09-30] VITALS (13 sets, daily range): BP systolic 98–136; BP diastolic 68–95; PULSE 81–93; RESP 15–25; TEMP 36.5–36.9; O2SAT 91–98; BMI 27.4
--- NOTE | 2022-09-30 06:05 | ED_ITS ---
HPI - Back Pain/Injury General: Chief Complaint: Back Pain/Injury Stated Complaint: back pain/poss. kidney pain Time Seen by Provider: 09/30/22 05:50 Source: patient Mode of arrival: ambulatory History of Present Illness: 52 yo female complaining of severe left flank pain and suprapubic pain she was here yesterday with a complaint of back pain. At that time she had a CTA of her chest showed a right liver lesion that was unchan ged small pericardial effusion but otherwise was normal no PE. She denies any hematuria she complaining of inability to urinate. No fever sweats or chills she had not had any dysuria urgency or frequency prior to the onset of this. MD elicited complaint: back pain Pertinent past history: prior back pain and kidney stones Onset (ago): day(s) Timing: constant Severity: severe Similar Symptoms Previously: Yes Quality: sharp Radiation: none Exacerbating factors: none Relieving factors: none Associated symptoms: Deny abdominal pain, arthralgias, chills, change in bowel habits, difficulty walking, dysuria, fatigue, fecal incontinence, fever(s), hematuria, myalgias, nausea, numbness, syncope, tingling/numbness/burning, urinary frequency, urinary urgency, vomiting or weakness Review of Systems Const: Denies: fever(s), chills or fatigue ENMT: Denies: throat pain, ear or mastoid pain, nasal discharge or nasal congestion Card: Denies: chest pain, palpitations, irregular heart rhythm, edema, swelling of feet/ankles or syncope Resp: Denies: dyspnea, productive cough or non-productive cough GI: Denies: abdominal pain, nausea, vomiting, fecal incontinence or change in bowel habits : Reports: difficulty voiding; Denies: dysuria, urinary frequency, urinary urgency or hematuria Skin/Breast: Denies: rash or pruritus Neuro: Denies: difficulty walking PFSH ED 2 PFSH: Medical History CHF (congestive heart failure) Related to nonischemic cardiomyopathy, most recent ejection fraction with with EF 42%. History of recurrent UTIs History of TIA (transient ischemic attack) HTN (hypertension) ICD (implantable cardioverter-defibrillator) in place Mass of right lobe of liver ~3.5 x 4 cm, indeterminant, hypodense, first noted 11/2021 Nonischemic cardiomyopathy Specific etiology unknown, may have been viral or related to uncontrolled hypertension from her recollection Echocardiogram November 2021 with ejection fraction of 42% - 05/17/22 echo EF now 25% Obstructive pyelonephritis (~11/2021) Urolithiasis Multi stone former. Complicated by at least 1 episode of obstructive pyelonephritis. Multiple procedures required to treat Surgical History S/P ureteral stent placement (~11/2021) Status post cholecystectomy Status post placement of cardiac pacemaker Family History Father , AT AGE 77 CAD (coronary artery disease) Cancer lung cancer Mother , AT AGE 60 Cancer OVARIAN Denies family history of Clotting disorder Anesthesia complication Bleeding disorder Social History Smoking and tobacco status: current every day smoker cigarettes Packs smoked per day: 0.5 Years cigarettes smoked: 45 Second hand smoke exposure: Yes Alcohol intake: current Lives independently: Yes Marital status: service: No Current occupational status: disabled Current gender identity: Female Physical Exam Const: GENERAL APPEARANCE: cooperative ORIENTATION/CONSCIOUSNESS: Yes awake, Yes oriented to person, Yes oriented to place and Yes oriented to time HENMT: COMMON NORMALS: normocephalic, atraumatic and hearing grossly normal bilaterally HEAD & SCALP: normocephalic and atraumatic Chest: OTHER: CurvatureModerately reproducible chest wall pain on the right side at the root of the rib in the posterior lateral portion of the ribs at the 789 level on the right Resp: COMMON NORMALS: normal respiratory effort, No retractions, No use of accessory muscles and clear to auscultation bilaterally AUSCULTATION: clear to auscultation bilaterally Cardio: COMMON NORMALS: regular rate, regular rhythm and No murmurs present (Cardio) RATE: regular rate RHYTHM: regular rhythm GI: COMMON NORMALS: No hepatosplenomegaly present AUSCULTATION: Yes normoactive bowel sounds PALPATION: Yes Tenderness to palpation present (GI) (suprapubic), No Guarding due to palpation present (GI) and Yes No hepatosplenomegaly present : BLADDER/KIDNEY EXAM: Yes CVA tenderness on the left Back/Pelvis: GENERAL BACK: Yes CVA tenderness CVA tenderness: left Extremity: COMMON NORMALS: normal to inspection, capillary refill normal, no clubbing, cyanosis or edema, no calf tenderness and no pedal edema Neuro: SENSORIUM/ORIENTATION: Yes oriented to person, Yes oriented to place and Yes oriented to time Skin: COMMON NORMALS: no rashes or lesions noted GENERAL SKIN EXAM: no rashes or lesions noted Course Vital Signs: Vital signs: Vital Signs Temperature 98.1 F 09/30/22 05:50 Pulse Rate 93 09/30/22 11:32 Respiratory Rate 16 09/30/22 11:32 Blood Pressure 136/95 09/30/22 11:32 Pulse Oximetry 94 09/30/22 11:32 Oxygen Delivery Me thod 09/30/22 11:32 Oxygen Flow Rate 3 09/30/22 08:25 MDM - Back Pain/Injury Medical Decision Making CT shows left UPJ proximal obstructing stone there are 2 adjacent stones present one measuring 7 mm other measuring 2 mm. Moderate hydronephrosis. Discussed with Dr. Austin. He will review the films and advise us what he recommends. We did place a Leger and she had [address] Austin seen the patient when he came down she is now complaining of right lower chest pain which is different than what she had had previously. 1 for similar she is complaining suprapubic and left flank pain. That is resolved now. She has no abnormalities on the skin there is no evidence of vesicular rash. She describes the pain now is radiating from back around to her front. She did have a moderate amount of stool on her CT. Patient had a prolonged ER course. She has been seen 3 times this month for atypical like chest pain by 3 different physicians. She has multiple actual issues none of which seem to be contributing to her pain at this time. When I first seen her she seemed to be more focused on left flank pain and suprapubic pain we found a left hydronephrosis which had been persistent but worsening over the last few months as well as a CT showing renal stones as Dr. Austin to see her she then was complaining of right-sided chest pain which she complained of the day prior. Dr. Jackson seen in the day prior and on a CTA which was negative. He prescribed her Percocet which she admits she never did get refilled. She is previously a cholecystectomy. Liver enzymes yesterday were negative. Her urine is normal. She has a normal white count. She did require oxygen for a brief period of time after receiving narcotics for pain control. She had a liver mass but there has been present for an extended period of time and shows no significant changes. I reviewed her films with Dr. Ohara but not read the films originally presented the case to her and we looked at the thoracic spine region. While this is not the best test obviously to evaluate this Dr. Ohara did not see anything obvious that would suggest a thoracic nerve impingement. Patient previously has had left rib fractures but no documented right rib fractures. There is no overlying vesicles on the skin suggestive of a varicella infection. Procalcitonin is negative. She has no sign of pneumonia. Despite all of this and review of all the previous records still cannot find a definitive cause of her pain I asked Dr. Benitez from the hospitalist service to give a second opinion he seen the patient reviewed. He is planning to keep the patient on observation for pain control and possible further evaluation depending on her course. Medical Records I reviewed the patient's medical records. Labs I reviewed the patient's lab results. 09/30/22 05:59 09/30/22 05:59 Radiology Impressions Abdomen/Pelvis CT 09/30/22 06:10 IMPRESSION: 1. Left UPJ/proximal ureter obstructing stones, resulting in moderate hydronephrosis and left kidney loss of volume. 2. Imaging findings suggestive of pulmonary congestion. Pneumonia should be excluded clinically. 3. Incompletely characterized mass is re-identified in the posterior right hepatic lobe further evaluation with contrast enhanced abdomen MRI is recommended. Chest X-Ray 09/30/22 11:13 IMPRESSION: 1. Mild cardiac enlargement. No acute process. Laboratory Results WBC 9.2 10^3/uL (4.0-10.0) 09/30/22 05:59 RBC 3.36 10^6/uL (4.1-5.3) L 09/30/22 05:59 Hgb 11.7 g/dL (11.5-15.3) 09/30/22 05:59 Hct 36.7 % (37.0-47.0) L 09/30/22 05:59 MCV 109.2 fl (81-99) H 09/30/22 05:59 MCH 34.8 pg (28.0-34.0) H 09/30/22 05:59 MCHC 31.9 g/dL (30.0-36.0) 09/30/22 05:59 RDW 14.2 % (12.1-15.1) 09/30/22 05:59 Plt Count 156 10^3/cmm (130-400) 09/30/22 05:59 MPV 11.7 fL (7.4-10.4) H 09/30/22 05:59 Neut % (Auto) 73.3 % 09/30/22 05:59 Lymph % (Auto) 19.7 % 09/30/22 05:59 [place] % (Auto) 4.9 % 09/30/22 05:59 Eos % (Auto) 0.5 % 09/30/22 05:59 Baso % (Auto) 0.9 % 09/30/22 05:59 Neut # (Auto) 6.71 10^3/uL (1.8-7.7) 09/30/22 05:59 Lymph # (Auto) 1.8 10^3/uL (0.8-4.8) 09/30/22 05:59 [place] # (Auto) 0.5 10^3/uL (0.2-0.9) 09/30/22 05:59 Eos # (Auto) 0.1 10^3/uL (0.0-0.8) 09/30/22 05:59 Baso # (Auto) 0.1 10^3/uL (0.0-0.1) 09/30/22 05:59 Nucleated RBC % (auto) 0 % 09/30/22 05:59 Nucleated RBCs # 0.0 /100WBC 09/30/22 05:59 Sodium 139 mmol/L (136-145) 09/30/22 05:59 Potassium 3.6 mmol/L (3.5-5.1) 09/30/22 05:59 Chloride 105 mmol/L (98-107) 09/30/22 05:59 Carbon Dioxide 22 mmol/L (22-29) 09/30/22 05:59 Anion Gap 15.6 (5-19) 09/30/22 05:59 BUN 19 mg/dL (6-20) 09/30/22 05:59 Creatinine 1.4 mg/dL (0.5-0.9) H 09/30/22 05:59 GFR Calculation 39.5 mL/min (90-130) L 09/30/22 05:59 Glucose 64 mg/dL (65-115) L 09/30/22 05:59 POC Glucose 84 mg/dL (70-110) 09/30/22 08:58 Calculated Osmolality 288 mOsm/kg (285-295) 09/30/22 05:59 Calcium 8.9 mg/dL (8.5-10.5) 09/30/22 05:59 Troponin T Baseline 21 ng/L (0-10) H 09/30/22 10:45 Troponin T 120 Minute 20.35 ng/L (0-10) H 09/30/22 12:30 Delta Troponin T -0.65 ABS# (0-10) L 09/30/22 12:30 Procalcitonin 0.09 ng/mL (0-0.5) 09/30/22 10:45 Urine Color Yellow (Yellow) 09/30/22 07:32 Urine Appearance Clear (CLEAR) 09/30/22 07:32 Urine pH 5 (5-7) 09/30/22 07:32 Ur Specific [place] 1.010 (1.005-1.030) 09/30/22 07:32 Urine Protein Neg (Negative) 09/30/22 07:32 Urine Glucose (UA) Norm (Normal) 09/30/22 07:32 Urine Ketones Negative (Negative) 09/30/22 07:32 Urine Blood Neg (Negative) 09/30/22 07:32 Urine Nitrate Negative (Negative) 09/30/22 07:32 Urine Bilirubin Neg (Negative) 09/30/22 07:32 Urine Urobilinogen Norm mg/dL (Negative) 09/30/22 07:32 Ur Leukocyte Esterase Negative (Negative) 09/30/22 07:32 Discharge Plan Discharge Patient Disposition: Placed in Observation Clinical Impression: Right-sided chest wall pain, Left nephrolithiasis, Acute urinary retention Condition: Stable Prescriptions: No Action citalopram [Celexa] 40 mg tablet 40 mg PO QPM zolpidem 10 mg tablet 10 mg PO BEDTIME aspirin [Adult Low Dose Aspirin] 81 mg tablet,delayed release (DR/EC) 162 mg PO QAM Hold Instructions: Resume on 04/26/22. Resume after 30 days of full dose aspirin nitroglycerin [Nitrostat] 0.4 mg tablet, sublingual 0.4 mg SUBLINGUAL Q5M PRN (Reason: chest pain) Qty: 25 3RF ferrous sulfate 325 mg (65 mg iron) tablet 325 mg PO QAM sacubitril-valsartan 97-103 mg tablet 1 tab PO BID Qty: 120 3RF Vitamin B-12 50 mcg Tablet 50 mcg PO QAM montelukast 10 mg tablet 10 mg PO QAM levalbuterol tartrate 45 mcg/actuation Hfa Aerosol Inhaler 2 inh INHALATION Q6H PRN (Reason: Shortness Of Breath) oxycodone 5 mg tablet 5 mg PO Q4H PRN (Reason: pain) Qty: 10 0RF potassium chloride 10 mEq capsule, extended release 10 meq PO BID Qty: 14 0RF pantoprazole 40 mg Tablet,Delayed Release (Dr/Ec) 40 mg PO DAILY carvedilol 25 mg tablet 6.25 mg PO BID furosemide [Lasix] 20 mg tablet 20 mg PO BID PRN (Reason: Edema) Referrals: Ferny Peterson MD [Primary Care Provider] - Coding Level of Care Code ED [employer] Specialist Manager for Chg Fwd Exam Comprehensive
--- NOTE | 2022-09-30 06:10 | CTR_ITS ---
PROCEDURE INFORMATION: Exam: CT Abdomen And Pelvis Without Contrast Exam date and time: 09/30/2022 6:35 AM Age: 52 years old Clinical indication: Abdominal pain; Right; Prior surgery; Surgery type: Pacer. Gb. Left hip. Patient HX: C/O RT flank pain. History of stones and ureteral stents. TECHNIQUE: Imaging protocol: Computed tomography of the abdomen and pelvis without contrast. Radiation optimization: All CT scans at this facility use at least one of these dose optimization techniques: automated exposure control; mA and/or kV adjustment per patient size (includes targeted exams where dose is matched to clinical indication); or iterative reconstruction. COMPARISON: CT kidney stone [id number] 12/28/2021 10:23 PM RADIATION DOSE METRICS: Total DLP (mGy-cm): 606.24 FINDINGS: Lungs: There is mosaic pattern of attenuation of the lungs, in association with mild paraseptal thickening, which in the setting of cardiomegaly suggestive of mild pulmonary congestion. Pneumonia should be excluded clinically. Tiny calcified granuloma noted in the right lower lobe. Heart: Mildly enlarged heart. Trace pericardial effusion noted. Pacemaker leads seen. Liver: Unchanged ill-defined mass in the posterior right hepatic lobe measuring approximately 4.9 cm. Gallbladder and bile ducts: The gallbladder has been surgically removed. Pancreas: Normal. No ductal dilation. Spleen: Normal. No splenomegaly. Adrenal glands: Normal. No mass. Kidneys and ureters: There are 2 adjacent obstructing stones in the left UPJ/proximal ureter, measuring 0.7 cm and 0.2 cm, resulting in moderate hydronephrosis. Left renal parenchymal loss of volume noted. There is lobulated contour of the kidneys, suggestive of chronic scarring. The urinary bladder is distended. Stomach and bowel: Unremarkable. No obstruction. No mucosal thickening. Appendix: No evidence of appendicitis. Intraperitoneal space: Unremarkable. No free air. No significant fluid collection. Vasculature: Mild diffuse atherosclerotic disease is present. Lymph nodes: Unremarkable. No enlarged lymph nodes. Urinary bladder: See Kidneys and ureters finding. Reproductive: Unremarkable as visualized. Bones/joints: Degenerative changes of the spine seen. Left hip ORIF hardware noted. Soft tissues: Unremarkable. CT/CT kidney stone [id number] IMPRESSION: 1. Left UPJ/proximal ureter obstructing stones, resulting in moderate hydronephrosis and left kidney loss of volume. 2. Imaging findings suggestive of pulmonary congestion. Pneumonia should be excluded clinically. 3. Incompletely characterized mass is re-identified in the posterior right hepatic lobe further evaluation with contrast enhanced abdomen MRI is recommended.
[2022-09-30 06:19] LABS: Basophils # 0.1 10^3/uL (0.0-0.1); Basophils % 0.9 %; Eosinophils # 0.1 10^3/uL (0.0-0.8); Eosinophils % 0.5 %; Hematocrit 36.7 % (37.0-47.0); Hemoglobin 11.7 g/dL (11.5-15.3); Lymphocytes # 1.8 10^3/uL (0.8-4.8); Lymphocytes % 19.7 %; Mean Corpuscular HGB Conc 31.9 g/dL (30.0-36.0); Mean Corpuscular Hemoglobin 34.8 pg (28.0-34.0); Mean Corpuscular Volume 109.2 fl (81-99); Mean Platelet Volume 11.7 fL (7.4-10.4); Monocytes # 0.5 10^3/uL (0.2-0.9); Monocytes % 4.9 %; Neutrophils # 6.71 10^3/uL (1.8-7.7); Neutrophils % 73.3 %; Nucleated Red Blood Cells % 0 %; Platelet Count 156 10^3/cmm (130-400); Red Blood Count 3.36 10^6/uL (4.1-5.3); Red Cell Distribution Width 14.2 % (12.1-15.1); White Blood Count 9.2 10^3/uL (4.0-10.0)
[2022-09-30] MEDS: ondansetron 2 mg/ML SDV 2 mL 4 MG IVP (06:29)
[2022-09-30] MEDS: morphine 4 mg/mL SDV 1 mL IVP ×4 (06:29→20:11)
[2022-09-30 06:56] LABS: Anion Gap 15.6 (5-19); Blood Urea Nitrogen 19 mg/dL (6-20); Calcium 8.9 mg/dL (8.5-10.5); Carbon Dioxide 22 mmol/L (22-29); Chloride 105 mmol/L (98-107); Glomerular Filtration Rate 39.5 mL/min (90-130); Glucose 64 mg/dL (65-115); Osmolality Calculated 288 mOsm/kg (285-295); Potassium 3.6 mmol/L (3.5-5.1); Sodium 139 mmol/L (136-145)
[2022-09-30 08:15] LABS: Add Urine Microscopic? NO; Charge for UA Resulting for Rev
[2022-09-30 08:46] LABS: Bilirubin Urine Neg (Negative); Blood Urine Neg (Negative); Glucose Urine UA Norm (Normal); Ketones Urine Negative (Negative); Leukocyte Esterase Urine Negative (Negative); Nitrate Urine Negative (Negative); Protein Urine Neg (Negative); Urine Appearance Clear (CLEAR); Urine Color Yellow (Yellow); Urobilinogen Urine Norm (Negative); pH Urine 5 (5-7)
[2022-09-30 09:03] LABS: Glucose Point of Care 84 mg/dL (70-110)
[2022-09-30] MEDS: morphine 4 mg/mL SDV 1 mL 2 MG IVP (09:54)
--- NOTE | 2022-09-30 10:17 | PM.CONSULT ---
Providers/Reason For Consult Consulting Physician/Specialty*: Allergy/[place] Reason for Consult*: Left mid ureteral stones with chronic obstruction and progressive left renal atrophy Requesting Physician: Dr. Stone Primary Care Provider: Ferny Peterson MD History of Present Illness History of Present Illness Elena Pulliam is a 52 year old female who I have followed off and on for quite some time for urolithiasis. Her last intervention was in December 2021 for initially presentation of left obstructive pyelonephritis with emergency stenting and then delayed endoscopic treatment of the stones after recovery from infection. She had a temporary stent and it was removed post stone treatment. She did not keep her scheduled appointment in June. Presented to the emergency department yesterday with acute onset of right-sided chest pain radiating down from the arm and shoulder, mild cough, and shortness of breath. Work-up revealed a D-dimer elevation and a CTA of the chest showed no obvious pulmonary embolism. She did have cardiomegaly small pleural effusion. Part of the left kidney was visualized and demonstrated hydronephrosis. Confirmation of been previously identified liver lesion was made with no significant change. Resented back to the emergency department today mixed symptoms. She complains of some chronic left vague flank pain which she has had for quite some time and by the time I saw her acute severe right upper quadrant pain and right lower chest pain radiating to the back. Repeat CT scan was performed and demonstrated normal-appearing right kidney and collecting system with contrast excretion quickly down to the bladder. Left kidney showed 2 stones in the left proximal ureter obstructive changes proximal to that. She has had significant left renal atrophy since her CT scan in December. This does appear to be a chronic process. Does not appear to be a significant amount of inflammatory changes associated with the stones raising the possibility of some intrinsic scarring from previous stones and treatment. Initial examination she was in obvious discomfort and distress. She was holding her right side not her left side. She described the pain that brought her in today is right-sided and different than what she has experienced in the past with stones. In the past when she has had multiple stones she has never had contralateral pain associated with the stones. Physical findings showed tenderness in the right upper quadrant and in the both flanks but right greater than sign left. Reviewed with the hospitalist as well as Dr. Benavidez in the ER would be hard to explain her severe and dominant pain on the right side on the basis of what was found on the CT scan on the LEFT side. Talked about placing a stent but felt that the right-sided pain needed to be understood more before considering placing her under anesthesia and stenting for what appears to be a very chronic condition with no acute exacerbation. There is no clear evidence of infection. She did have significant urinary retention straight on the CT scan and ending her bladder with a catheter did in fact resolve that but did not appear to make any improvement in her right upper quadrant pain. She still has her appendix. Status postcholecystectomy. Only abdominal findings besides the chronic obstruction of the left include what appears to be constipation and some minor bowel distention on the right side. Review of Systems Const: Denies: fever(s) or chills Eyes: Denies: change in vision Card: Denies: palpitations or syncope Resp: Reports: dyspnea GI: Reports: abdominal pain, nausea, vomiting and constipation (Last bowel meant 2 days ago) : Reports: flank pain (Mild ache in the left flank, chronic.) and difficulty voiding Musc: Reports: back pain; Denies: joint redness Skin/Breast: Denies: sores Neuro: Denies: confusion, behavioral changes or Slurred speech present Psych: Reports: anxiety and depression Endo: Denies: flushing Cedric/Lymph: Denies: easy bruising or easy bleeding All/Imm: Denies: urticaria or acute wheezing Medications/Allergies Home Medications Medication Instructions Recorded Confirmed Last Taken Type citalopram 40 mg tablet (Celexa) 40 mg PO QAM 01/31/20 06/24/22 06/24/22 History zolpidem 10 mg tablet 10 mg PO BEDTIME 01/31/20 06/24/22 06/23/22 History aspirin 81 mg tablet,delayed 162 mg PO QAM 01/20/21 06/24/22 06/24/22 History release (Adult Low Dose Aspirin) nitroglycerin 0.4 mg sublingual 0.4 mg sublingual Q5M PRN chest 01/20/21 06/24/22 Unknown Rx tablet (Nitrostat) pain #25 tabs ferrous sulfate 325 mg (65 mg 325 mg PO QAM 07/22/21 06/24/22 06/24/22 History iron) tablet cyanocobalamin (vitamin B-12) 50 50 mcg PO QAM 0206/24/22 06/24/22 History mcg tablet (Vitamin B-12) levalbuterol tartrate 45 2 inh inhalation Q6H PRN Shortness 11/30/21 06/24/22 03/25/22 History mcg/actuation aerosol inhaler Of Breath montelukast 10 mg tablet 10 mg PO QAM 11/30/21 06/24/22 03/25/22 08:00 History pantoprazole 40 mg tablet,delayed 40 mg PO DAILY 06/24/22 06/24/22 06/24/22 History release sacubitril 97 mg-valsartan 103 mg 1 tab PO BID #120 tabs 09/14/22 Unknown Rx tablet oxycodone 5 mg tablet 5 mg PO Q4H PRN pain #10 tabs 09/29/22 Unknown Rx potassium chloride 10 mEq 10 meq PO BID #14 caps 09/29/22 Unknown Rx capsule,extended release carvedilol 25 mg tablet 6.25 mg PO BID 09/30/22 09/30/22 Unknown History furosemide 20 mg tablet (Lasix) 20 mg PO BID PRN Edema 09/30/22 09/30/22 Unknown History Allergies Allergy/AdvReac Type Severity Reaction Status Date / Time egg Allergy unknown Verified 09/30/22 14:23 PFSH Acute PFSH: Medical History CHF (congestive heart failure) Related to nonischemic cardiomyopathy, most recent ejection fraction with with EF 42%. History of recurrent UTIs History of TIA (transient ischemic attack) HTN (hypertension) ICD (implantable cardioverter-defibrillator) in place Mass of right lobe of liver ~3.5 x 4 cm, indeterminant, hypodense, first noted 11/2021 Nonischemic cardiomyopathy Specific etiology unknown, may have been viral or related to uncontrolled hypertension from her recollection Echocardiogram November 2021 with ejection fraction of 42% - 05/17/22 echo EF now 25% Obstructive pyelonephritis (~11/2021) Urolithiasis Multi stone former. Complicated by at least 1 episode of obstructive pyelonephritis. Multiple procedures required to treat Surgical History S/P ureteral stent placement (~11/2021) Status post cholecystectomy Status post placement of cardiac pacemaker Family History Father , AT AGE 77 CAD (coronary artery disease) Cancer lung cancer Mother , AT AGE 60 Cancer OVARIAN Denies family history of Clotting disorder Anesthesia complication Bleeding disorder Social History Smoking and tobacco status: current every day smoker cigarettes Packs smoked per day: 0.5 Years cigarettes smoked: 45 Second hand smoke exposure: Yes Alcohol intake: current Lives independently: Yes Marital status: service: No Current occupational status: disabled Current gender identity: Female Vitals/I&O/Wt Last Vital Signs Temp 98.1 F 09/30/22 05:50 Pulse 81 09/30/22 08:25 Resp 16 09/30/22 08:25 BP 110/80 09/30/22 08:25 Pulse Ox 92 09/30/22 08:25 O2 Del Method 09/30/22 08:25 O2 Flow Rate 3 09/30/22 08:25 Weight last 48 hrs Weight 165 lb Physical Exam Const: OTHER: Alert and oriented. Moderate distress with source being right upper quadrant pain. HENMT: OTHER: Atraumatic normocephalic Eye: OTHER: No jaundice or discharge Neck/C-Spine: OTHER: Good range of motion Chest: OTHER: Normal chest movements Resp: OTHER: No audible wheezes GI: OTHER: Right upper quadrant tenderness. No rebound. No left upper quadrant tenderness. No palpable masses : OTHER: Upon admission her bladder was distended to palpation it has been decompressed now with a catheter. Nontender. Back/Pelvis: OTHER: Mild bilateral CVA tenderness. Neuro: OTHER: No focal symptoms Psych: OTHER: Anxious secondary to the symptoms. Skin: OTHER: No jaundice Urinary Catheter Management: Leger: Cath Placed During This Visit: yes Urinary Catheter Date of Insertion: 09/30/22 Urinary Catheter Time of Insertion: 07:42 Data 09/30/22 05:59 09/30/22 05:59 A&P Assessment and plan (1) Left ureteral calculus: (2) Hydronephrosis, left: (3) Renal atrophy, left: (4) Acute urinary retention: (5) Right upper quadrant pain: Plan 1. She will need treatment for the left mid ureteral stones that are causing chronic obstruction of the left kidney with atrophy. Currently there is no evidence of infection making that an emergency. She really is relatively asymptomatic on the left side other than some chronic aching in the kidney which is no worse today than it has been for some time. Originally I plan to take her to the OR thinking that the pain was from the stones but have recommended to her to hold on that until there is clarification of what is causing the more acute pain over the last couple days. 2. We will be available and will follow to address the ureteral stone issues ongoing if she is admitted for that evaluation. 3. If she is able to be managed on outpatient basis for work-up of the right upper quadrant pain I will plan on seeing her back next week and make arrangements for treating of the stones. 4. Maintain Leger catheter Coding Level of Care Code Acute Middleware Solutions Architect for [facility] Fwd Diagnoses Left ureteral calculus N20.1 Hydronephrosis, left N13.30 Renal atrophy, left N26.1 Acute urinary retention R33.8 Right upper quadrant pain R10.11
--- NOTE | 2022-09-30 10:50 | ECG_ITS ---
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 Measurements Intervals [place] Rate: 83 P: 55 IA: 156 QRS: -46 QRSD: 136 T: 77 QT: 438 QTc: 515 Interpretive Statements SINUS RHYTHM LEFT AXIS DEVIATION [QRS AXIS < -30] INTRAVENTRICULAR CONDUCTION DELAY [130+ ms QRS DURATION] POSSIBLE LEFT VENTRICULAR HYPERTROPHY [VOLTAGE CRITERIA PLUS LAE OR QRS WIDENING] POSSIBLE ANTERIOR MYOCARDIAL INFARCTION , OF INDETERMINATE AGE [30 ms Q WAVE IN V3/V4, OR R < 0.2 mV IN V4] Compared to ECG 09/29/2022 17:33:39 ST (T wave) deviation no longer present Myocardial infarct finding still present Electronically Signed On 09-30-2022 15:41:34 WELLNESS PROGRAM ADMINISTRATOR by Michael Hill M.D. [id number]
[2022-09-30 11:09] LABS: Troponin(5th) Baseline 21 ng/L (0-10)
--- NOTE | 2022-09-30 11:13 | XR_ITS ---
WS: [id number] Exam: XR chest 1V portable [id number] Date/Time of Exam: 09/30/2022 11:13 AM Reason For Exam: dyspnea/cough Comparison 09/29/2022. The lungs are clear and fully inflated. Mild cardiac enlargement. No pleural effusions. A permanent c ardiac pacer superimposes the left chest. The mediastinum is not widened. Bony structures are intact. XR/XR chest 1V portable [id number] IMPRESSION: 1. Mild cardiac enlargement. No acute process.
[2022-09-30 11:57] LABS: Procalcitonin 0.09 ng/mL (0-0.5)
--- NOTE | 2022-09-30 12:24 | ECG_ITS ---
[facility] Test Date: 2022-09-30 Pat Name: Elena Pulliam Department: Room: Gender: Female Needle Felt Making Machine Operator: : 1970 Requested By: Abiodun Johnson Order Number: [id number] Arlette MD: Michael Hill M.D. Measurements Intervals [place] Rate: 83 P: 45 SC: 154 QRS: -44 QRSD: 133 T: 79 QT: 426 QTc: 501 Interpretive Statements SINUS RHYTHM LEFT AXIS DEVIATION [QRS AXIS < -30] INTRAVENTRICULAR CONDUCTION DELAY [130+ ms QRS DURATION] LEFT VENTRICULAR HYPERTROPHY AND ST-T CHANGE [VOLTAGE CRITERIA PLUS ST/T ABNORMALITY] POSSIBLE ANTERIOR MYOCARDIAL INFARCTION , PROBABLY OLD [30 ms Q WAVE IN V3/V4, OR R < 0.2 mV IN V4] Compared to ECG 09/30/2022 10:50:29 ST (T wave) deviation now present Myocardial infarct finding still present Electronically Signed On 09-30-2022 15:47:44 MARKETING DEVELOPMENT SPECIALIST by Michael Hill M.D. [id number]
[2022-09-30 13:00] LABS: Troponin 5 2HR 20.35 ng/L (0-10)
[2022-09-30 13:02] LABS: Troponin 5 2HR Delta -0.65 ABS# (0-10)
--- NOTE | 2022-09-30 13:08 | PC.PHAR ---
Addendum entered by Suzy Raya 09/30/22 14:16: was able to verify meds with a friend of the pts that helps with pts meds Addendum entered by Suzy Raya 09/30/22 13:10: NOTIFIED PT WELL Original Note: PT HER FROM [facility] UNABLE TO VERIFY MEDICATIONS- PT WAS HERE 09/30/22 ALSO UNABLE TO OBTAIN A MED LIST AFTER SEVERAL CALLS MADE TO FACILITY- SAME TODAY LEFT A MESSAGE AT 9 AM- AND AGAIN AT 1 PM
--- NOTE | 2022-09-30 14:44 | P.HP_ITS ---
Providers/Chief Complaint Primary Care Provider: Ferny Peterson MD Chief Complaint: back pain/poss. kidney pain History of Present Illness Elena Pulliam is a 52 year old female recently recovering from respiratory viral infection, with history of hepatic mass, CAD, ischemic cardiomyopathy, ICD, left-sided rib fractures, left-sided nephrolithiasis, hydronephrosis, was assessed in ER yesterday with right-sided chest pain, assessment: CTA which did not find PE, obvious pneumonia, or any obvious fractures or severe bony abnormalities. She returns today to ER due to persistence of severe pain which is making it difficult for her to take any deeper breaths. Pain is sharp, radiating from right side back around the chest toward midclavicular line. It has also been hurting so much that she feels she could not urinate, was found to have 900 mL in urinary bladder on placement of Leger catheter. Additional imaging was obtained today with CT abdomen pelvis with noted left UPJ proximal ureter obstructing stone resulting in moderate hydronephrosis and left kidney loss of volume. Pulmonary congestion. Again identified incompletely characterized mass in posterior right hepatic lobe, further evaluation with contrast-enhanced abdominal MRI is recommended. She was additionally assessed by urology with further plans to address obstructive uropathy likely on outpatient basis with symptoms less likely related to the renal findings. Review of Systems Const: Denies: fever(s), chills, body aches or malaise Eyes: Denies: change in vision, eye discomfort or eye redness ENMT: Denies: throat pain, oral sores or ear or mastoid pain Card: Denies: chest pain, edema, pre-syncope or dyspnea on exertion Resp: Denies: dyspnea, productive cough, change in phlegm color or hemoptysis GI: Denies: abdominal pain, nausea, vomiting, diarrhea, constipation, hematochezia or melena : Denies: flank pain, urinary frequency or hematuria Musc: Reports: other (Severe right-sided chest wall pain); Denies: joint swelling or joint redness Skin/Breast: Denies: rash or new lesions Neuro: Denies: headache(s), numbness in extremities, weakness in extremities, dizziness, confusion or seizure-like activity Endo: Denies: polyuria or polydipsia Cedric/Lymph: Denies: easy bleeding or tender lymph nodes All/Imm: Denies: urticaria or tongue swelling Medications/Allergies Home Medications Medication Instructions Recorded Confirmed Last Taken Type citalopram 40 mg tablet (Celexa) 40 mg PO QPM 01/31/20 09/30/22 06/24/22 History zolpidem 10 mg tablet 10 mg PO BEDTIME 01/31/20 09/30/22 06/23/22 History aspirin 81 mg tablet,delayed 162 mg PO QAM 01/20/21 09/30/22 06/24/22 History release (Adult Low Dose Aspirin) nitroglycerin 0.4 mg sublingual 0.4 mg sublingual Q5M PRN chest 01/20/21 09/30/22 Unknown Rx tablet (Nitrostat) pain #25 tabs ferrous sulfate 325 mg (65 mg 325 mg PO QAM 07/22/21 09/30/22 06/24/22 History iron) tablet cyanocobalamin (vitamin B-12) 50 50 mcg PO QAM 11/30/21 09/30/22 06/24/22 History mcg tablet (Vitamin B-12) levalbuterol tartrate 45 2 inh inhalation Q6H PRN Shortness 11/30/21 09/30/22 03/25/22 History mcg/actuation aerosol inhaler Of Breath montelukast 10 mg tablet 10 mg PO QAM 11/30/21 09/30/22 09/30/22 History pantoprazole 40 mg tablet,delayed 40 mg PO DAILY 06/24/22 09/30/22 06/24/22 History release sacubitril 97 mg-valsartan 103 mg 1 tab PO BID #120 tabs 09/14/22 09/30/22 Unknown Rx tablet oxycodone 5 mg tablet 5 mg PO Q4H PRN pain #10 tabs 09/29/22 09/30/22 Unknown Rx potassium chloride 10 mEq 10 meq PO BID #14 caps 09/29/22 09/30/22 Unknown Rx capsule,extended release carvedilol 25 mg tablet 6.25 mg PO BID 09/30/22 09/30/22 Unknown History furosemide 20 mg tablet (Lasix) 20 mg PO BID PRN Edema 09/30/22 09/30/22 Unknown History Allergies Allergy/AdvReac Type Severity Reaction Status Date / Time egg Allergy unknown Verified 09/30/22 14:23 PFSH Acute PFSH: Medical History CHF (congestive heart failure) Related to nonischemic cardiomyopathy, most recent ejection fraction with with EF 42%. History of recurrent UTIs History of TIA (transient ischemic attack) HTN (hypertension) ICD (implantable cardioverter-defibrillator) in place Mass of right lobe of liver ~3.5 x 4 cm, indeterminant, hypodense, first noted 11/2021 Nonischemic cardiomyopathy Specific etiology unknown, may have been viral or related to uncontrolled hypertension from her recollection Echocardiogram November 2021 with ejection fraction of 42% - 05/17/22 echo EF now 25% Obstructive pyelonephritis (~11/2021) Urolithiasis Multi stone former. Complicated by at least 1 episode of obstructive pyelonephritis. Multiple procedures required to treat Surgical History S/P ureteral stent placement (~11/2021) Status post cholecystectomy Status post placement of cardiac pacemaker Family History Father , AT AGE 77 CAD (coronary artery disease) Cancer lung cancer Mother , AT AGE 60 Cancer OVARIAN Denies family history of Clotting disorder Anesthesia complication Bleeding disorder Social History Smoking and tobacco status: current every day smoker cigarettes Packs smoked per day: 0.5 Years cigarettes smoked: 45 Second hand smoke exposure: Yes Alcohol intake: current Lives independently: Yes Marital status: service: No Current occupational status: disabled Current gender identity: Female Vitals/I&O/Wt Last Vital Signs Temp 98.1 F 09/30/22 05:50 Pulse 93 09/30/22 11:32 Resp 16 09/30/22 11:32 BP 136/95 09/30/22 11:32 Pulse Ox 94 09/30/22 11:32 O2 Del Method 09/30/22 11:32 O2 Flow Rate 3 09/30/22 08:25 Weight last 48 hrs Weight 74.843 kg Physical Exam Narrative: Accompanied by her life partner Const: COMMON NORMALS: patient oriented x3 and alert GENERAL APPEARANCE: cooperative ORIENTATION/CONSCIOUSNESS: Yes awake HENMT: COMMON NORMALS: oropharynx normal Neck/C-Spine: COMMON NORMALS: no JVD Chest: OTHER: Very tender right side chest wall. No rash, swelling, hematoma or obvious deformity. Resp: COMMON NORMALS: normal respiratory effort and clear to auscultation bilaterally AUSCULTATION: clear to auscultation bilaterally Cardio: COMMON NORMALS: no JVD, regular rhythm, S1 normal heart sound present, S2 normal heart sound present and No murmurs present (Cardio) RHYTHM: regular rhythm HEART SOUNDS: S1 normal heart sound present and S2 normal heart sound present GI: COMMON NORMALS: Normal to inspection, nondistended, normoactive bowel sounds present, Soft to palpation and non-tender PALPATION: Yes Soft to palpation Extremity: COMMON NORMALS: no joint enlargement and no pedal edema Neuro: COMMON NORMALS: patient oriented x3 and moves all extremities SEN SORIUM/ORIENTATION: Yes alert Skin: COMMON NORMALS: no rashes or lesions noted GENERAL SKIN EXAM: no rashes or lesions noted Urinary Catheter Management: Leger: Cath Placed During This Visit: yes Urinary Catheter Date of Insertion: 09/30/22 Urinary Catheter Time of Insertion: 07:42 Data 09/30/22 05:59 09/30/22 05:59 A&P Assessment and plan (1) Chest pain: Severe chest pain, sharp, she states limiting her respiration, she has been unable to move. Not responsive to morphine. Radiating from the back right side around the chest towards midclavicular line. Very tender to palpation. No lesions on the skin or any obvious deformity. She is recovering from pneumonia. Clinically no sign of sepsis or ongoing pneumonia. Findings on CT likely secon robert to the resolving pneumonia. No PE. No obvious source of the pain on CT angiogram chest yesterday or CT abdomen pelvis today. Discussed evaluation and findings with her and ER physician. Suspect this is related to musculoskeletal injury due to recent pneumonia and cough. Due to severity of her pain, inability to take deep breaths, move around, not responding to morphine, will place in observation for optimization of pain control before returning home. We will also reevaluate blood counts and chemistry in the morning. Pain control with combination of heating pad, capsaicin, lidocaine patch, Tylenol, p.o. dilaudid and as needed IV morphine. Incentive spirometer. Plan Liver mass: Discussed with her and life partner. Will need additional diagnostic evaluation. She is unable to get an MRI here due to ICD device, however, may be able to get it done elsewhere, otherwise consideration made for PET scan and/for biopsy. Obstructive uropathy: Maintain Leger catheter. Follow-up with urology for arrangements for definitive therapy for left-sided obstructing urolithiasis. Attestations Medical Necessity Statement*: Placed in observation due to uncontrolled right side/back pain limiting activity and respiration. Coding Level of Care Code Acute Practice Advisor for [facility] Diagnoses Chest pain R07.9
--- NOTE | 2022-09-30 16:24 | ECG_ITS ---
[facility] Test Date: 2022-09-30 Pat Name: Elena Pulliam Department: Room: 278 Gender: Female Cnc Service Technician: : 1970 Requested By: Abiodun Johnson Order Number: [id number] Arlette MD: Sil Pineda M.D. Measurements Intervals [place] Rate: 86 P: 51 NM: 160 QRS: -49 QRSD: 135 T: 74 QT: 442 QTc: 529 Interpretive Statements SINUS RHYTHM LEFT AXIS DEVIATION [QRS AXIS < -30] INTRAVENTRICULAR CONDUCTION DELAY [130+ ms QRS DURATION] Compared to ECG 09/30/2022 12:54:35 Left ventricular hypertrophy no longer present ST (T wave) deviation no longer present Myocardial infarct finding no longer present Electronically Signed On 10-01-2022 11:04:05 MONEY POSITION OFFICER by Sil Pineda M.D. [id number]
[2022-09-30 18:07] LABS: Troponin 5 6HR 23.27 ng/L (0-10); Troponin 5 6HR Delta 2.27 ng/L (0-12)
[2022-09-30] MEDS: citalopram 20 mg Tablet 40 MG PO (18:18)
[2022-09-30] MEDS: lidocaine 5% Patch 1 PATCH TOPICAL (18:18)
[2022-09-30] MEDS: carvedilol 25 mg Tablet 6.25 MG PO (18:19)
[2022-09-30] MEDS: potassium chloride ER 10 mEq Tablet PO (18:19)
[2022-09-30] MEDS: sacubitril/valsartan 24-26 mg Tablet 4 EACH PO (18:20)
[2022-09-30] MEDS: zolpidem 5 mg Tablet 10 MG PO (20:08)
[2022-10-01] VITALS (10 sets, daily range): BP systolic 89–112; BP diastolic 58–79; PULSE 72–96; RESP 16–24; TEMP 36.4–36.8; O2SAT 89–98
[2022-10-01 03:51] LABS: Basophils # 0.1 10^3/uL (0.0-0.1); Basophils % 1.3 %; Eosinophils # 0.1 10^3/uL (0.0-0.8); Eosinophils % 1.1 %; Hemoglobin 10.9 g/dL (11.5-15.3); Lymphocytes # 1.7 10^3/uL (0.8-4.8); Lymphocytes % 28.2 %; Mean Corpuscular HGB Conc 31.1 g/dL (30.0-36.0); Mean Corpuscular Hemoglobin 34.3 pg (28.0-34.0); Mean Corpuscular Volume 110.1 fl (81-99); Mean Platelet Volume 11.4 fL (7.4-10.4); Monocytes # 0.4 10^3/uL (0.2-0.9); Monocytes % 6.2 %; Neutrophils # 3.86 10^3/uL (1.8-7.7); Neutrophils % 62.6 %; Nucleated Red Blood Cells % 0 %; Platelet Count 139 10^3/cmm (130-400); Red Blood Count 3.18 10^6/uL (4.1-5.3); Red Cell Distribution Width 13.9 % (12.1-15.1); White Blood Count 6.2 10^3/uL (4.0-10.0)
[2022-10-01 04:17] LABS: Anion Gap 13.3 (5-19); Blood Urea Nitrogen 19 mg/dL (6-20); Calcium 8.9 mg/dL (8.5-10.5); Carbon Dioxide 23 mmol/L (22-29); Chloride 105 mmol/L (98-107); Glucose 69 mg/dL (65-115); Osmolality Calculated 285 mOsm/kg (285-295); Potassium 4.3 mmol/L (3.5-5.1); Sodium 137 mmol/L (136-145)
[2022-10-01] MEDS: ferrous sulfate EC 325 mg Tablet PO (05:21)
[2022-10-01] MEDS: aspirin 81 mg EC Tablet 162 MG PO (05:22)
[2022-10-01] MEDS: montelukast sodium 10 mg Tablet PO (05:22)
[2022-10-01] MEDS: sacubitril/valsartan 24-26 mg Tablet 4 EACH PO ×2 (08:16→17:44)
[2022-10-01] MEDS: carvedilol 25 mg Tablet 6.25 MG PO ×2 (08:16→17:44)
[2022-10-01] MEDS: potassium chloride ER 10 mEq Tablet PO ×2 (08:17→17:44)
[2022-10-01] MEDS: pantoprazole DR 40 mg Tablet PO (08:17)
[2022-10-01 09:59] LABS: Alanine Aminotransferase 14 U/L (0-33); Albumin Level 3.7 g/dL (3.5-5.2); Alkaline Phosphatase 94 U/L (35-105); Aspartate Amino Transferase 15 U/L (0-32); Globulin 2.7 g/dL (1.3-4.6); Total Bilirubin 0.6 mg/dL (0.15-1.2); Total Protein 6.4 g/dL (6.6-8.7)
--- NOTE | 2022-10-01 10:48 | P.PN_ITS ---
Subjective Subjective: Urology follow-up: Hospital day #2 Feeling better today. No increase in left flank pain. No infectious concerns. Exact etiology of her right upper quadrant right chest pain is still unclear. She believes that she will be going home later today. Discussed again the findings of the left ventricle/proximal ureteral stones and the possibility of ureteral stricture. Reviewed the treatment options available and would recommend endoscopic approach possible ureteral dilation, laser lithotripsy and stent. Also discussed the possibility of stent placement only if access with the scope is not safe. Reviewed as well the potential for requirement for antegrade stent placement if access with guidewire was also unsuccessful. Given the degree of atrophy since December I expect that this is probably a pretty tight obstruction. We will plan on intervention on 10/05/2022 on outpatient surgery basis reviewed the procedure in detail. Informed consent obtained. Vitals/I&O/Wt Last Vital Signs Temp 98.2 F 10/01/22 08:00 Pulse 72 10/01/22 08:00 Resp 16 10/01/22 08:00 BP 100/66 10/01/22 08:00 Pulse Ox 92 10/01/22 08:00 O2 Del Method 10/01/22 08:00 O2 Flow Rate 3 10/01/22 08:00 09/30/22 10/01/22 10/01/22 22:59 06:59 14:59 Intake Total 360 / 360 900 / 1260 Output Total 125 / 125 Balance 235 / 235 900 / 1135 Weight last 48 hrs Weight 165 lb Physical Exam Narrative: Alert and oriented, no acute distress, appears much more comfortable than yesterday HEENT atraumatic normocephalic Neck good range of motion Respiration no audible wheezes, good air movement Extremity good range of motion Urine is clear Urinary Catheter Management: Leger: Cath Placed During This Visit: yes, but has since been removed by the nurse Reason for Continuing Indwelling Catheter: Decision to DC Catheter Urinary Catheter Date of Insertion: 09/30/22 Urinary Catheter Time of Insertion: 07:42 Date Urinary Catheter Removed: 10/01/22 Time Urinary Catheter Discontinued: 10:19 Data 10/01/22 02:58 10/01/22 02:58 A&P Assessment and plan (1) Left ureteral calculus: Plan for endoscopic intervention on 10/05/2022. (2) Hydronephrosis, left: (3) Renal atrophy, left: Chronic obstruction (4) Acute urinary retention: (5) Right upper quadrant pain: Plan She believes she will be discharged today. Recommendations: 1. Maintain Leger catheter discharge (leg and night bag) 2. Follow-up on 10/05/2022 for cystoscopy, LEFT retrograde, ureteroscopy, laser, stent. See HPI 3. Can postpone further if there is evidence of a significant non urologic concern that would warrant holding on surgery. 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
[2022-10-01] MEDS: HYDROmorphone 1 mg/mL INJ 1 mL IVP (15:28)
[2022-10-01] MEDS: ketorolac 30 mg/mL INJ IVP (16:46)
[2022-10-01] MEDS: citalopram 20 mg Tablet 40 MG PO (17:44)
[2022-10-01] MEDS: cyclobenzaprine 10 mg Tablet 5 MG PO (17:44)
[2022-10-01] MEDS: gabapentin 100 mg Capsule PO ×2 (17:47→20:24)
--- NOTE | 2022-10-01 18:50 | P.PN_ITS ---
Subjective Subjective: This morning slightly better, in the afternoon again episodes of severe pain right side chest wall. Leger catheter taken out this morning, has not urinated. Vitals/I&O/Wt Last Vital Signs Temp 97.9 F 10/01/22 15:28 Pulse 96 10/01/22 15:28 Resp 16 10/01/22 15:28 BP 102/65 10/01/22 15:28 Pulse Ox 98 10/01/22 15:28 O2 Del Method 10/01/22 15:28 O2 Flow Rate 3 10/01/22 08:00 10/01/22 10/01/22 10/01/22 06:59 14:59 22:59 Intake Total 900 / 1260 600 / 600 Balance 900 / 1135 600 / 600 Weight last 48 hrs Weight 74.843 kg Physical Exam Const: COMMON NORMALS: patient oriented x3 and alert GENERAL APPEARANCE: cooperative ORIENTATION/CONSCIOUSNESS: Yes awake HENMT: COMMON NORMALS: oropharynx normal Neck/C-Spine: COMMON NORMALS: no JVD Chest: OTHER: Very tender right side chest wall. No rash, swelling, hematoma or obvious deformity. Resp: COMMON NORMALS: normal respiratory effort and clear to auscultation bilaterally AUSCULTATION: clear to auscultation bilaterally Cardio: COMMON NORMALS: no JVD, regular rhythm, S1 normal heart sound present, S2 normal heart sound present and No murmurs present (Cardio) RHYTHM: regular rhythm HEART SOUNDS: S1 normal heart sound present and S2 normal heart sound present GI: COMMON NORMALS: Normal to inspection, nondistended, normoactive bowel sounds present, Soft to palpation and non-tender PALPATION: Yes Soft to palpation Extremity: COMMON NORMALS: no joint enlargement and no pedal edema Neuro: COMMON NORMALS: patient oriented x3 and moves all extremities SENSORIUM/ORIENTATION: Yes alert Skin: COMMON NORMALS: no rashes or lesions noted GENERAL SKIN EXAM: no rashes or lesions noted Urinary Catheter Management: Leger: Cath Placed During This Visit: yes, but has since been removed by the nurse Reason for Continuing Indwelling Catheter: Acute Urinary Retention or Obstruction Urinary Catheter Date of Insertion: 10/01/22 Urinary Catheter Time of Insertion: 18:36 Date Urinary Catheter Removed: 10/01/22 Time Urinary Catheter Discontinued: 10:19 Data 10/01/22 02:58 10/01/22 02:58 A&P Assessment and plan (1) Chest pain: This morning slightly better, however, in the afternoon again episodes of chest pain, severe in nature. No rash. No pleural thickening to indicate pleurisy. Severity of pain, without otherwise physical findings concerning for neuropathic pain, possibility of shingles, she does have history of chickenpox in childhood, never vaccinated for shingles. May be developing prodromal symptoms preceding shingles before rash appears. Due to severity of pain additionally added IV Dilaudid. Flexeril. With possible neuropathic pain add gabapentin. Severe chest pain, sharp, she states limiting her respiration, she has been unable to move. Not responsive to morphine. Radiating from the back right side around the chest towards midclavicular line. Very tender to palpation. No lesions on the skin or any obvious deformity. She is recovering from pneumonia. Clinically no sign of sepsis or ongoing pneumonia. Findings on CT likely secondary to the resolving pneumonia. No PE. No obvious source of the pain on CT angiogram chest yesterday or CT abdomen pelvis today. Discussed evaluation and findings with her and ER physician. Suspect this is related to musculoskeletal injury due to recent pneumonia and cough. Due to severity of her pain, inability to take deep breaths, move around, not responding to morphine, will place in observation for optimization of pain control before returning home. We will also reevaluate blood counts and chemistry in the morning. Pain control with combination of heating pad, capsaicin, lidocaine patch, Tylenol, p.o. dilaudid and as needed IV morphine. Incentive spirometer. (2) Urine retention: Leger reinserted as still has not voided. Continue with Leger until follow-up with urology. Plan Liver mass: Discussed with her and life partner. Will need additional diagnostic evaluation. She is unable to get an MRI here due to ICD device, however, may be able to get it done elsewhere, otherwise consideration made for PET scan and/for biopsy. Obstructive uropathy: Follow-up with urology for arrangements for definitive therapy for left-sided obstructing urolithiasis. Attestations Medical Necessity Statement*: Continue admission for optimization of control of severe so far intractable chest wall pain. 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
[2022-10-01] MEDS: morphine 4 mg/mL SDV 1 mL IVP (20:23)
[2022-10-01] MEDS: zolpidem 5 mg Tablet 10 MG PO (20:24)
[2022-10-02] VITALS (8 sets, daily range): BP systolic 89–100; BP diastolic 58–82; PULSE 74–82; RESP 16–18; TEMP 36.6–36.7; O2SAT 91–98
[2022-10-02 04:39] LABS: Anion Gap 12.3 (5-19); Blood Urea Nitrogen 20 mg/dL (6-20); Calcium 8.8 mg/dL (8.5-10.5); Carbon Dioxide 26 mmol/L (22-29); Chloride 101 mmol/L (98-107); Glomerular Filtration Rate 47.2 mL/min (90-130); Glucose 86 mg/dL (65-115); Osmolality Calculated 282 mOsm/kg (285-295); Potassium 4.3 mmol/L (3.5-5.1); Sodium 135 mmol/L (136-145)
[2022-10-02] MEDS: aspirin 81 mg EC Tablet 162 MG PO (05:09)
[2022-10-02] MEDS: montelukast sodium 10 mg Tablet PO (05:09)
[2022-10-02] MEDS: ferrous sulfate EC 325 mg Tablet PO (05:11)
[2022-10-02] MEDS: gabapentin 100 mg Capsule PO ×2 (08:35→14:41)
[2022-10-02] MEDS: carvedilol 25 mg Tablet 6.25 MG PO (08:35)
[2022-10-02] MEDS: potassium chloride ER 10 mEq Tablet PO (08:36)
[2022-10-02] MEDS: pantoprazole DR 40 mg Tablet PO (08:36)
[2022-10-02] MEDS: sacubitril/valsartan 24-26 mg Tablet 4 EACH PO (08:36)
[2022-10-02] MEDS: cyclobenzaprine 10 mg Tablet 5 MG PO (08:37)
--- NOTE | 2022-10-02 09:50 | CTR_ITS ---
PROCEDURE INFORMATION: Exam: CT Abdomen And Pelvis With Contrast Exam date and time: 10/02/2022 12:08 PM Age: 52 years old Clinical indication: Other: Chest pain; Prior surgery; Surgery type: Defib/pacer; Additional info: Severe R chest pain, reassess liver mass, for any change. Include mid to lower chest for reassessment TECHNIQUE: Imaging protocol: Computed tomography of the abdomen and pelvis with contrast. Radiation optimization: All CT scans at this facility use at least one of these dose optimization techniques: automated exposure control; mA and/or kV adjustment per patient size (includes targeted exams where dose is matched to clinical indication); or iterative reconstruction. Contrast material: OMNI 350; Contrast volume: 100 ml; Contrast route: INTRAVENOUS (IV); COMPARISON: CT kidney stone [id number] 09/30/2022 6:35 AM RADIATION DOSE METRICS: Total DLP (mGy-cm): 981 FINDINGS: Liver: 4.8 x 3.8 cm heterogeneous mass in the right hepatic lobe, similar to prior versus increased in size, allowing for differences in technique. 9 mm hypervascular lesion in the left hepatic lobe, likely a flash filling hemangioma. Gallbladder and bile ducts: Status post cholecystectomy. No biliary ductal dilatation. Pancreas: Unremarkable. Spleen: Coarse calcified splenic granuloma. Adrenal glands: Normal. No mass. Kidneys and ureters: Right renal cortical scarring. Moderate to severe left-sided hydroureteronephrosis, secondary to a 4 mm proximal left ureteral calculus (axial image 50 and coronal image 31). Nonobstructing right renal calculi. Right renal cortical scarring. 1 cm right renal cyst (no follow-up is indicated based on the imaging appearance). Stomach and bowel: Moderate amount of retained stool in the colon. No obstruction. No bowel wall thickening. No pneumatosis. Appendix: Normal. Intraperitoneal space: Trace nonspecific free pelvic fluid, likely reactive. No organized fluid collection. No free air. Vasculature: Mild atherosclerotic disease. No aneurysm or dissection. Lymph nodes: No pathologically enlarged lymph nodes. Urinary bladder: Unremarkable as visualized. Reproductive: Unremarkable. Bones/joints: No acute osseous abnormality. Osteopenia. Degenerative changes. Fixation hardware in the left proximal femur. Soft tissues: Unremarkable. CT/CT abdomen pelvis w con* [id number] IMPRESSION: 1. Moderate to severe left-sided hydroureteronephrosis, secondary to a 4 mm proximal left ureteral calculus. 2. 4.8 x 3.8 cm heterogeneous mass in the right hepatic lobe, similar to prior versus increased in size, allowing for differences in technique. If clinically indicated, MRI may be obtained for further evaluation. 3. Additional findings, as above. COMMENTS: Consistent with the [employer]'s Incidental Findings Committee white paper (J Am Last Radiol 2018): Any incidental renal lesion less than 1 cm or classified as too small to characterize, or any incidental cystic renal lesion characterized as simple-appearing, is likely benign. No follow-up imaging is recommended for these lesions per consensus recommendations based on imaging criteria.
--- NOTE | 2022-10-02 11:41 | PM.DCS ---
Discharge Providers Date of Admission: 09/30/22 16:21 Date of Discharge: October 02, 2022 Attending Provider at Admission: Rony Benitez Attending Provider at Discharge: Rony Benitez Primary Care Provider: Ferny Peterson MD Diagnoses at Discharge Discharge Diagnosis (1) Chest pain: Status: Acute (2) Urine retention: Status: Acute Reason for Visit Reason for Visit: back pain/poss. kidney pain Brief History: Elena Pulliam is a 52 year old female recently recovering from respiratory viral infection, with history of hepatic mass, CAD, ischemic cardiomyopathy, ICD, left-sided rib fractures, left-sided nephrolithiasis, hydronephrosis, was assessed in ER yesterday with right-sided chest pain, assessment: CTA which did not find PE, obvious pneumonia, or any obvious fractures or severe bony abnormalities.? She returns today to ER due to persistence of severe pain which is making it difficult for her to take any deeper breaths.? Pain is sharp, radiating from right side back around the chest toward midclavicular line.? It has also been hurting so much that she feels she could not urinate, was found to have 900 mL in urinary bladder on placement of Leger catheter. ? Additional imaging was obtained today with CT abdomen pelvis with noted left UPJ proximal ureter obstructing stone resulting in moderate hydronephrosis and left kidney loss of volume.? Pulmonary congestion.? Again identified incompletely characterized mass in posterior right hepatic lobe, further evaluation with contrast-enhanced abdominal MRI is recommended. She was additionally assessed by urology with further plans to address obstructive uropathy likely on outpatient basis with symptoms less likely related to the renal findings. Hospital Course Hospital Course Due to severity of pain required treatment with IV Dilaudid in addition to adjunct measures with lidocaine patch, capsaicin, acetaminophen, additionally added cyclobenzaprine. Continue with incentive spirometry. Transiently provided with support with lower nasal cannula due to dyspnea secondary to pain, but does not qualify for oxygen on home O2 evaluation. Pain suspected musculoskeletal related to connective tissue and/or nerve injury following recent pneumonia and cough. However, dermatomal distribution, neuropathic quality concerning for possible prodromal symptoms of shingles. She has no rash or blisters, intact no visible skin changes at all in the area, however, neuropathic prodrome may proceed rash sometimes biopsy several weeks. She is started on gabapentin currently. Is asked to watch out for any rash or blisters and contact office in case of development. She does have history of childhood chickenpox, never vaccinated for shingles. Consider vaccination. Leger catheter placed on presentation. Noted hydronephrosis with obstructive uropathy, this will be further evaluated by urology for relief of obstruction, however, is on the left side and not related to recurrent pain. Leger catheter attempted to be removed, but still with urinary retention, Leger replaced until can follow-up with urology and pain is under better control. Additionally noted liver mass which needs further evaluation, she cannot have MRI here due to presence of pacemaker. Perhaps MRI can be obtained elsewhere, otherwise perhaps diagnosis can be considered with PET scan and/for biopsy. Due to persistent nature and severity of pain she is reimaged additionally with CT scan to follow for any additional change in the mass to exclude expansion or bleeding without any significant mass enlargement or signs of bleeding. She has remained afebrile, without leukocytosis, without signs of sepsis/infection. Liver parameters remain entirely normal. Physical Exam Narrative: She states she is still hurting. She is appearing somewhat better. Is no longer in antalgic position, appears relaxed on her back. Does have trouble taking deep breaths when asked on exam limited by pain in the right chest. Const: COMMON NORMALS: patient oriented x3 and alert GENERAL APPEARANCE: cooperative ORIENTATION/CONSCIOUSNESS: Yes awake HENMT: COMMON NORMALS: oropharynx normal Neck/C-Spine: COMMON NORMALS: no JVD Chest: OTHER: Very tender right side chest wall. No rash, swelling, hematoma or obvious deformity. Resp: COMMON NORMALS: normal respiratory effort and clear to auscultation bilaterally AUSCULTATION: clear to auscultation bilaterally Cardio: COMMON NORMALS: no JVD, regular rhythm, S1 normal heart sound present, S2 normal heart sound present and No murmurs present (Cardio) RHYTHM: regular rhythm HEART SOUNDS: S1 normal heart sound present and S2 normal heart sound present GI: COMMON NORMALS: Normal to inspection, nondistended, normoactive bowel sounds present, Soft to palpation and non-tender PALPATION: Yes Soft to palpation Extremity: COMMON NORMALS: no joint enlargement and no pedal edema Neuro: COMMON NORMALS: patient oriented x3 and moves all extremities SENSORIUM/ORIENTATION: Yes alert Skin: COMMON NORMALS: no rashes or lesions noted GENERAL SKIN EXAM: no rashes or lesions noted Urinary Catheter Management: Leger: Cath Placed During This Visit: yes, but has since been removed by the nurse Reason for Continuing Indwelling Catheter: Acute Urinary Retention or Obstruction Urinary Catheter Date of Insertion: 10/01/22 Urinary Catheter Time of Insertion: 18:36 Date Urinary Catheter Removed: 10/01/22 Time Urinary Catheter Discontinued: 10:19 Discharge Data Studies Completed and Pending Completed Studies During Hospitalization Category Date Time Status CT kidney stone [id number] Stat Cat Scan 09/30/22 06:10 Completed XR chest 1V portable [id number] Stat Exams 09/30/22 11:13 Completed Pending at discharge Category Date Time Status CT abdomen pelvis w con* [id number] Routine Cat Scan 10/02/22 09:50 Ordered Basic Metabolic Panel AM LABS Lab 10/03/22 04:00 Ordered Basic Metabolic Panel AM LABS Lab 10/04/22 04:00 Ordered Radiology Impressions Abdomen/Pelvis CT 09/30/22 06:10 IMPRESSION: 1. Left UPJ/proximal ureter obstructing stones, resulting in moderate hydronephrosis and left kidney loss of volume. 2. Imaging findings suggestive of pulmonary congestion. Pneumonia should be excluded clinically. 3. Incompletely characterized mass is re-identified in the posterior right hepatic lobe further evaluation with contrast enhanced abdomen MRI is recommended. Chest X-Ray 09/30/22 11:13 IMPRESSION: 1. Mild cardiac enlargement. No acute process. Laboratory Results WBC 6.2 10^3/uL (4.0-10.0) 10/01/22 02:58 RBC 3.18 10^6/uL (4.1-5.3) L 10/01/22 02:58 Hgb 10.9 g/dL (11.5-15.3) L 10/01/22 02:58 Hct 35.0 % (37.0-47.0) L 10/01/22 02:58 MCV 110.1 fl (81-99) H 10/01/22 02:58 MCH 34.3 pg (28.0-34.0) H 10/01/22 02:58 MCHC 31.1 g/dL (30.0-36.0) 10/01/22 02:58 RDW 13.9 % (12.1-15.1) 10/01/22 02:58 Plt Count 139 10^3/cmm (130-400) 10/01/22 02:58 MPV 11.4 fL (7.4-10.4) H 10/01/22 02:58 Neut % (Auto) 62.6 % 10/01/22 02:58 Lymph % (Auto) 28.2 % 10/01/22 02:58 Randall % (Auto) 6.2 % 10/01/22 02:58 Eos % (Auto) 1.1 % 10/01/22 02:58 Baso % (Auto) 1.3 % 10/01/22 02:58 Neut # (Auto) 3.86 10^3/uL (1.8-7.7) 10/01/22 02:58 Lymph # (Auto) 1.7 10^3/uL (0.8-4.8) 10/01/22 02:58 Randall # (Auto) 0.4 10^3/uL (0.2-0.9) 10/01/22 02:58 Eos # (Auto) 0.1 10^3/uL (0.0-0.8) 10/01/22 02:58 Baso # (Auto) 0.1 10^3/uL (0.0-0.1) 10/01/22 02:58 Nucleated RBC % (auto) 0 % 10/01/22 02:58 Nucleated RBCs # 0.0 /100WBC 10/01/22 02:58 Sodium 135 mmol/L (136-145) L 10/02/22 03:11 Potassium 4.3 mmol/L (3.5-5.1) 10/02/22 03:11 Chloride 101 mmol/L (98-107) 10/02/22 03:11 Carbon Dioxide 26 mmol/L (22-29) 10/02/22 03:11 Anion Gap 12.3 (5-19) 10/02/22 03:11 BUN 20 mg/dL (6-20) 10/02/22 03:11 Creatinine 1.2 mg/dL (0.5-0.9) H 10/02/22 03:11 GFR Calculation 47.2 mL/min (90-130) L 10/02/22 03:11 Glucose 86 mg/dL (65-115) 10/02/22 03:11 POC Glucose 84 mg/dL (70-110) 09/30/22 08:58 Calculated Osmolality 282 mOsm/kg (285-295) L 10/02/22 03:11 Calcium 8.8 mg/dL (8.5-10.5) 10/02/22 03:11 Total Bilirubin 0.6 mg/dL (0.15-1.2) 10/01/22 02:58 Direct Bilirubin 0.20 mg/dL (0.00-0.30) 10/01/22 02:58 AST 15 U/L (0-32) 10/01/22 02:58 ALT 14 U/L (0-33) 10/01/22 02:58 Alkaline Phosphatase 94 U/L (35-105) 10/01/22 02:58 Troponin T Baseline 21 ng/L (0-10) H 09/30/22 10:45 Troponin T 120 Minute 20.35 ng/L (0-10) H 09/30/22 12:30 Delta Troponin T -0.65 ABS# (0-10) L 09/30/22 12:30 Troponin T Hi Sens 6Hr 23.27 ng/L (0-10) H 09/30/22 17:41 Troponin T Hi Sens 6Hr Delta 2.27 ng/L (0-12) 09/30/22 17:41 Total Protein 6.4 g/dL (6.6-8.7) L 10/01/22 02:58 Albumin 3.7 g/dL (3.5-5.2) 10/01/22 02:58 Globulin 2.7 g/dL (1.3-4.6) 10/01/22 02:58 Procalcitonin 0.09 ng/mL (0-0.5) 09/30/22 10:45 Urine Color Yellow (Yellow) 09/30/22 07:32 Urine Appearance Clear (CLEAR) 09/30/22 07:32 Urine pH 5 (5-7) 09/30/22 07:32 Ur Specific [place] 1.010 (1.005-1.030) 09/30/22 07:32 Urine Protein Neg (Negative) 09/30/22 07:32 Urine Glucose (UA) Norm (Normal) 09/30/22 07:32 Urine Ketones Negative (Negative) 09/30/22 07:32 Urine Blood Neg (Negative) 09/30/22 07:32 Urine Nitrate Negative (Negative) 09/30/22 07:32 Urine Bilirubin Neg (Negative) 09/30/22 07:32 Urine Urobilinogen Norm mg/dL (Negative) 09/30/22 07:32 Ur Leukocyte Esterase Negative (Negative) 09/30/22 07:32 Vitals Last Vital Signs Temp 97.9 F 10/02/22 11:31 Pulse 81 10/02/22 11:31 Resp 17 10/02/22 11:31 BP 94/61 10/02/22 11:31 Pulse Ox 94 10/02/22 11:31 O2 Del Method 10/02/22 11:31 O2 Flow Rate 3 10/02/22 07:51 Discharge Plan Discharge Patient Disposition: Home Condition: Stable Prescriptions: New cyclobenzaprine 10 mg Tablet 10 mg PO TID PRN (Reason: Muscle Spasms) Qty: 30 0RF gabapentin 100 mg Capsule 200 mg PO TID Qty: 180 0RF capsaicin 0.025 % Cream 1 applic topical QID PRN (Reason: Pain) Qty: 60 0RF acetaminophen 325 mg Tablet 650 mg PO Q6H PRN (Reason: Mild/Mod Pain Or Temp >/= 101) Qty: 90 0RF carvedilol 3.125 mg tablet 3.125 mg PO BID Qty: 60 0RF Rx Instructions: must administer with a meal/food Continued citalopram [Celexa] 40 mg tablet 40 mg PO QPM zolpidem 10 mg tablet 10 mg PO BEDTIME aspirin [Adult Low Dose Aspirin] 81 mg tablet,delayed release (DR/EC) 162 mg PO QAM Hold Instructions: Resume on 04/26/22. Resume after 30 days of full dose aspirin nitroglycerin [Nitrostat] 0.4 mg tablet, sublingual 0.4 mg SUBLINGUAL Q5M PRN (Reason: chest pain) Qty: 25 3RF ferrous sulfate 325 mg (65 mg iron) tablet 325 mg PO QAM Vitamin B-12 50 mcg Tablet 50 mcg PO QAM montelukast 10 mg tablet 10 mg PO QAM levalbuterol tartrate 45 mcg/actuation Hfa Aerosol Inhaler 2 inh INHALATION Q6H PRN (Reason: Shortness Of Breath) oxycodone 5 mg tablet 5 mg PO Q4H PRN (Reason: pain) Qty: 10 0RF potassium chloride 10 mEq capsule, extended release 10 meq PO BID Qty: 14 0RF pantoprazole 40 mg Tablet,Delayed Release (Dr/Ec) 40 mg PO DAILY furosemide [Lasix] 20 mg tablet 20 mg PO BID PRN (Reason: Edema) Held sacubitril-valsartan 97-103 mg tablet 1 tab PO BID Qty: 120 3RF Hold Instructions: Resume on 10/09/22. Discontinued carvedilol 25 mg tablet 6.25 mg PO BID Discharge Orders: Discharge Order (Routine); Ordered 10/02/22 Ordered By: Rony Benitez Referrals: Phillip Austin MD [Physician] - 7-10 days (If you are discharged before Monday keep already scheduled appointment with Dr Austin.) Ferny Peterson MD [Primary Care Provider] - (Please call Monday to schedule your appointment with Dr. Peterson.) Discharge Diet: Cardiac Discharge Activity: Increase activity as tolerated Patient Instructions: Cyclobenzaprine (By mouth) (Flexeril, Amrix, Fexmid, FusePaq Tabradol), Gabapentin (By mouth), Carvedilol (By mouth), Capsaicin (On the skin), Leger Catheter Care, Kidney Stones (GEN), Pain Management (GEN), Chest Wall Pain (GEN), How to Change a Catheter Drainage Bag (GEN), Opioid Safety Activity Restrictions/Additional Instructions: Follow-up with your primary doctor regarding right chest wall pain, so far without obvious cause, suspected secondary to musculoskeletal cause after recent pneumonia and cough, less likely, but given location and quality prodromal symptoms of shingles. Please monitor for recurrence of any rash or blisters. In case take her contact her primary doctor. Keep area covered avoid exposing other areas of her body to any fluids, avoid exposure to other people so as not to transmit infection if rash or blisters occur. Continue pain control measures with Tylenol, local heat or cooling whichever works better, capsaicin or Bengay/menthol cream, Flexeril as needed for muscle spasm, gabapentin is also started. Please monitor your blood pressures and do not take occasions for gabapentin, cyclobenzaprine or oxycodone if your blood pressure is less than 100 systolic (top number) or less than 60 diastolic (bottom number) to avoid hypotension and shock as this medication can lower your blood pressure. Oxycodone for severe pain. For now we will lower your carvedilol dose to 3.125 milligrams twice a day. Hold sacubitril due to soft blood pressures, until blood pressures improved and you are no longer needing as intensive pain management regimen. Continue Leger catheter until follow-up with urology. Urology instruction: 1. We will plan on Outpatient Surgery 10/05/2022 for cystoscopy, retrograde, ureteroscopy, laser, stent 2. Someone will call you on Monday to remind you what time to be there. 3. Nothing to eat or drink after midnight on Monday night 4. Can continue aspirin. Follow-up with your primary doctor regarding liver mass, discuss possible referral for MRI which could handle presence of pacemaker. Otherwise discussed consideration of possible PET scan or biopsy. Discharge Attestations Time Spent in Discharge Care*: greater than 30 min Quality Metrics Clinical Quality Measures [ No reported AMI, CVA or VTE this stay] Coding Level of Care Code Acute Chg FW DC note Exam Comprehensive Diagnoses Chest pain R07.9 Urine retention R33.9
[2022-10-02] MEDS: iohexol 350 mg/mL 500 mL Btl (per mL) IV (12:17)
[2022-10-02] MEDS: ketorolac 30 mg/mL INJ IVP (13:34)
[2022-10-02] MEDS: capsaicin 0.025% cream 60 gm 1 APPLIC TOPICAL (13:35)
== END 2022-10-02 15:00 | disposition home or self-care (01) ==
LOC: ER 14:38 → MEDSURG 21:40
PROVIDERS: Admitting Provider Internal Medicine; Emergency Provider Family Medicine; PCP Family Medicine; Visit Provider Internal Medicine
DX: R07.9 Chest pain, unspecified (principal); R33.9 Retention of urine, unspecified; I25.10 Atherosclerotic heart disease of native coronary artery without angina pectoris; I25.5 Ischemic cardiomyopathy; R16.0 Hepatomegaly, not elsewhere classified; N20.1 Calculus of ureter; N13.30 Unspecified hydronephrosis; N26.1 Atrophy of kidney (terminal); R33.8 Other retention of urine; R10.11 Right upper quadrant pain; Z79.82 Long term (current) use of aspirin; Z87.440 Personal history of urinary (tract) infections; Z86.73 Personal history of transient ischemic attack (TIA), and cerebral infarction without residual deficits; F17.210 Nicotine dependence, cigarettes, uncomplicated
CPT/HCPCS: 36415; 36416; 51702; 71045; 74176; 74177; 80048; 80076; 81003; 82962; 84145; 84484; 85025; 93005; 94760; 96374; 96375; 96376; 99285; G0378; J1170; J1885; J2270; J2405; Q9967

== ENCOUNTER 2022-10-05 06:51 | Day surgery (SDC) | payer MEDICARE, MEDICAID, SELFPAY ==
[2022-10-04 12:32] VITALS: BMI 27.3
[2022-10-05] VITALS (10 sets, daily range): BP systolic 83–113; BP diastolic 51–77; PULSE 76–91; RESP 16–23; TEMP 36.3; O2SAT 90–98
--- NOTE | 2022-10-05 06:57 | SC_ITS ---
WS: [id number] C-arm fluoroscopy for left retrograde stent insertion, 10/05/2022 Clinical Data: Preop left ureteroscopy Comparison: None. Findings: Dr. Austin performed a left retrograde ureteral stent insertion. SC/C-arm FL for Urology Impression: Left retrograde ureteral stent insertion.
--- NOTE | 2022-10-05 07:22 | P.ANESASSM_ITS ---
Pre-Anesthetic Assessment Height/Weight: Height 1.65 m Weight 74.389 kg O2 Del Method 10/05/22 07:13 Preop Diagnosis: Chronically obstructing left ureteral calculi, possible stricture Operation Date: 10/05/22 08:20 Proposed Procedures p Cystoscopy 27678/n20.0(Not Applicable) - Phillip Austin MD s Retrograde Pyelogram(Not Applicable) - MD mark Diaz Ureteral Stent Placement(Not Applicable) - Phillip Austin MD Familial anesthetic complications: None Was Beta Grady taken within 24 hours: N/A Was Clonidine taken within 24 hours: N/A Last intake: Intake Last Liquid Date 10/04/22 Last Liquid Time 20:00 Last Solid Date 10/04/22 Last Solid Time 17:30 Social Tobacco and No alcohol Exam alert, oriented x 3, clear to auscultation bilaterally and regular rate & rhythm Airway Mallampati: Class III Dentition: chipped and loose CV/HEM Stable Angina (recent ERs visits - determined to be of msk origin) and Congestive Heart Failure (idiopathic NICM echo EF25%) ICD at VVI 40 Denies any recent increase in CP, SOB, lightheadedness, denies any edema/swelli ng Neuropsych Transient Ischemic Attack Anesthetic Plan ASA status: 4 Anesthesia: General Risk of > 500 ml blood loss (7ml/kg in children): No Medications/Allergies Home Medications Medication Instructions Recorded Confirmed Last Taken Type citalopram 40 mg tablet (Celexa) 40 mg PO QPM 01/31/20 10/05/22 10/04/22 History zolpidem 10 mg tablet 10 mg PO BEDTIME 01/31/20 10/05/22 10/04/22 History aspirin 81 mg tablet,delayed 162 mg PO QAM 01/20/21 10/05/22 09/27/22 History release (Adult Low Dose Aspirin) nitroglycerin 0.4 mg sublingual 0.4 mg sublingual Q5M PRN chest 01/20/21 10/04/22 Unknown Rx tablet (Nitrostat) pain #25 tabs ferrous sulfate 325 mg (65 mg 325 mg PO QAM 07/22/21 10/05/22 06/24/22 History iron) tablet cyanocobalamin (vitamin B-12) 50 50 mcg PO QAM 11/30/21 10/05/22 10/03/22 History mcg tablet (Vitamin B-12) levalbuterol tartrate 45 2 inh inhalation Q6H PRN Shortness 11/30/21 10/05/22 10/04/22 History mcg/actuation aerosol inhaler Of Breath montelukast 10 mg tablet 10 mg PO QAM 11/30/21 10/05/22 10/04/22 History pantoprazole 40 mg tablet,delayed 40 mg PO DAILY 06/24/22 10/05/22 10/04/22 History release sacubitril 97 mg-valsartan 103 mg 1 tab PO BID #120 tabs 09/14/22 10/05/22 10/05/22 Rx tablet oxycodone 5 mg tablet 5 mg PO Q4H PRN pain #10 tabs 09/29/22 10/05/22 10/04/22 Rx potassium chloride 10 mEq 10 meq PO BID #14 caps 09/29/22 10/04/22 Unknown Rx capsule,extended release furosemide 20 mg tablet (Lasix) 20 mg PO BID PRN Edema 09/30/22 10/05/22 10/04/22 History acetaminophen 325 mg tablet 650 mg PO Q6H PRN Mild/Mod Pain Or 10/02/22 Unknown Rx Temp >/= 101 #90 tabs capsaicin 0.025 % topical cream 1 applic topical QID PRN Pain #60 10/02/22 10/04/22 Unknown Rx grams carvedilol 3.125 mg tablet 3.125 mg PO BID #60 tabs 10/02/22 10/05/22 10/05/22 Rx cyclobenzaprine 10 mg tablet 10 mg PO TID PRN Muscle Spasms #30 10/02/22 10/05/22 Unknown Rx tabs gabapentin 100 mg capsule 200 mg PO TID #180 caps 10/02/22 10/05/22 10/05/22 Rx Allergies Allergy/AdvReac Type Severity Reaction Status Date / Time egg Allergy unknown Verified 10/04/22 12:28 [facility] Anesthesia Medical History CHF (congestive heart failure) Related to nonischemic cardiomyopathy, most recent ejection fraction with with EF 42%. History of recurrent UTIs History of TIA (transient ischemic attack) HTN (hypertension) ICD (implantable cardioverter-defibrillator) in place Mass of right lobe of liver ~3.5 x 4 cm, indeterminant, hypodense, first noted 11/2021 Nonischemic cardiomyopathy Specific etiology unknown, may have been viral or related to uncontrolled hypertension from her recollection Echocardiogram November 2021 with ejection fraction of 42% - 05/17/22 echo EF now 25% Obstructive pyelonephritis (~11/2021) Urolithiasis Multi stone former. Complicated by at least 1 episode of obstructive pyelonephritis. Multiple procedures required to treat Surgical History S/P ureteral stent placement (~11/2021) Status post cholecystectomy Status post placement of cardiac pacemaker Family History Father , AT AGE 77 CAD (coronary artery disease) Cancer lung cancer Mother , AT AGE 60 Cancer OVARIAN Denies family history of Clotting disorder Anesthesia complication Bleeding disorder Social History Smoking and tobacco status: current every day smoker cigarettes Packs smoked per day: 0.5 Years cigarettes smoked: 45 Second hand smoke exposure: Yes Alcohol intake: current Lives independently: Yes Marital status: service: No Current occupational status: disabled Current gender identity: Female Data Anesthesia Cardiac Studies: Echocardiogram 05/17/22 Transesophageal Echocardiogram 05/20/22 Sestamibi Stress Test (Cardiology) 05/17
--- NOTE | 2022-10-05 07:55 | P.HPUD_ITS ---
Surgery/Procedure H&P Update DATE OF PROCEDURE: October 05, 2022 DATE H&P PERFORMED: 10/01/22 H&P UPDATE INFORMATION: I have reviewed H&P completed within last 30 days, I have examined patient prior to procedure, No changes to prior documentation and H&P is in [facility] EMR on date indicated CHANGES TO PREVIOUS DOCUMENTATION: Reviewed again the procedure in detail. Discussed potential staged procedure with stenting only first or potentially antegrade requirement for stent placement if there is significant inflammatory changes or stricture that could not be dilated adequately and bypassed. All of this have been discussed in detail with the patient previously. She has been down this road extensively in the past. PREOP DIAGNOSIS: Chronically obstructing left ureteral calculi, possible stricture PLANNED PROCEDURE: Operation Date: 10/05/22 08:20 Proposed Procedures p Cystoscopy 81198/n20.0(Not Applicable) - Phillip Austin MD s Retrograde Pyelogram(Not Applicable) - Phillip Austin MD s Ureteral Stent Placement(Not Applicable) - Phillip Austin MD
--- NOTE | 2022-10-05 08:06 | P.OP_ITS ---
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 Stricture was not able to be bridged from below with multiple attempts at different wires Procedure done: 1. Cystoscopy, LEFT retrograde ureteropyelogram 2. LEFT ureteroscopy, laser lithotripsy, stent Specimens removed/disposition: None Pathology: None Surgeon: Geovanna Estimated blood loss: Minimal Urine output: Not measured Complications: No complications but I could not complete the procedure as planned due to impassable left proximal ureteral stricture which was confirmed to be the source of the obstruction. Stones were a secondary concern and located above the stricture and not directly causing obstruction. Findings: Anesthesia: General Condition: Stable Disposition: PACU Intraoperative findings: * Normal ureter distal to the stones. No flow of contrast proximal to the stricture. * Tight pinpoint stricture that could not be bridged with a 0.38, 0.35, 0.014 guidewires. * No access to the upper urinary tract was obtained. Brief History: Ms. Pulliam is a very pleasant 52-year-old white female with a history of re current urolithiasis. She recently presented to the emergency department with severe right-sided flank pain. A CT scan was performed that showed no gross pathology urologically but did show chronically obstructing stones in the right mid to proximal ureter. It appeared that there might have been a stricture distal to the stones. She has had multiple stone passages as well as interventions previously. Right-sided pain is still not 100% clear but there was some concern that it might be related to shingles or some musculoskeletal injury. No other significant visceral or intra-abdominal or thoracic process was identified. Procedure: After routine preoperative evaluation examination and obtaining of informed consent she was taken to the operating suite on 10/05/2022 where general anesthesia was administered without difficulty after appropriate timeout was performed, SCDs confirmed to be functioning, preoperative antibiotics administer ed, beta-mariel protocol confirmed. Prepped and draped in usual sterile fashion in dorsolithotomy position paying careful attention to avoiding pressure points. 21 B[place]udian cystoscope with 30 degree lens was introduced into the urethra meatus and advanced into the bladder under videoscopy. Bladder was systematically examined. Findings showed no evidence of stones in the bladder no other gross intravesical pathology. An 8 [place]ud[place] cone-tip catheter was intubated into the LEFT ureteral orifice for LEFT RETROGRADE URETEROPYELOGRAM demonstrating: Normal course and caliber of the ureter up into the point that appeared to be consistent with a stricture on CT scan no contrast could be manipulated proximal to that area. I was not sure whether this was related to some leakage around the cone-tip catheter and for that reason a wire was passed partially up the ureter and then a open-ended ureteral catheter passed over the wire right to just below the strictured area. Contrast was then reinjected after the wire was removed and no contrast could be manipulated proximal to the stricture. A 6 [place] mini scope was then advanced easily up the left ureter under direct visualization. The strictured area was encountered and indeed it was a very tight stricture. With direct visual observation a 0.38 guidewire was not able to be manipulated into the stricture. A 0.35 inch guidewire was attempted and a cardiac 0.014 guidewire was also attempted all failed to bridge the gap. Care was paid to avoid excessive pressure and trying to make this manipulation. At no point was there any efflux of urine identified before or after attempts at passage. At this point no further effort was made from a retrograde fashion and the procedure was completed. The bladder was drained. She tolerated procedure well without complication and she was awakened in the operating room and returned to the recovery room in stable condition PLANS: 1. I will review with her her options which would include a percutaneous nephrostomy tube and may be an attempt at antegrade stent placement and dilation or probably more reasonable percutaneous tube to be followed by open or even potentially robotic reconstruction/repair of the ureter. 2. Anticipate discharge from outpatient surgery today
[2022-10-05] MEDS: levofloxacin-dextrose 5 % 500 MG/100 ML PREMIX 100 MG IV (08:12)
[2022-10-05 08:14] LABS: Anion Gap 13.6 (5-19); Blood Urea Nitrogen 24 mg/dL (6-20); Calcium 9.9 mg/dL (8.5-10.5); Carbon Dioxide 25 mmol/L (22-29); Chloride 108 mmol/L (98-107); Glomerular Filtration Rate 39.5 mL/min (90-130); Glucose 100 mg/dL (65-115); Osmolality Calculated 298 mOsm/kg (285-295); Potassium 4.6 mmol/L (3.5-5.1); Sodium 142 mmol/L (136-145)
[2022-10-05] MEDS: sodium chloride 0.9% 1,000 ML 30 ML IV (08:17)
[2022-10-05] MEDS: fentaNYL 50 mcg/mL INJ 2mL IVP (08:18)
[2022-10-05] MEDS: iohexol 300 mg/mL 50 mL Btl (OR ONLY) 10 ML XX (08:59)
[2022-10-05] MEDS: ondansetron 2 mg/ML SDV 2 mL 4 MG IVP (09:58)
--- NOTE | 2022-10-05 11:03 | SUR.PHASEII ---
patient ambulated to bathroom, stated she voided a lot . patient states pain at a low level. instructed to do deep breathing at home. patient sats at room air variable but up to 93%.
--- NOTE | 2022-10-05 12:08 | ANE.PACU2 ---
Inpatient post-anesthesia follow up: Airway intact: Yes Vital signs: Temperature 97.3 F Pulse Rate 78 Respiratory Rate 17 Blood Pressure 84/55 Pulse Oximetry 93 Oxygen Delivery Me thod Room Air Oxygen Flow Rate 1 Fraction of Inspir ed Oxygen Hydration adequate: Yes Nausea and vomiting: No Pain level: 1 Mental status: Baseline
== END 2022-10-05 11:03 | disposition home or self-care (01) ==
PROVIDERS: PCP Family Medicine; Visit Provider Urology
PROC: 0TJB8ZZ Inspection of Bladder, Via Natural or Artificial Opening Endoscopic (ICD-10-PCS; CPT 52000; principal; 2022-10-05 08:10)
PROC: (CPT 74420; 2022-10-05 08:10)
PROC: 0TJ98ZZ Inspection of Ureter, Via Natural or Artificial Opening Endoscopic (ICD-10-PCS; CPT 52351; 2022-10-05 08:10)
DX: N20.1 Calculus of ureter (principal); N13.5 Crossing vessel and stricture of ureter without hydronephrosis; I11.0 Hypertensive heart disease with heart failure; I50.9 Heart failure, unspecified; Z86.73 Personal history of transient ischemic attack (TIA), and cerebral infarction without residual deficits; F17.210 Nicotine dependence, cigarettes, uncomplicated
CPT/HCPCS: 52356; 36415; 76000; 80048; C1769; J0330; J1100; J1956; J2250; J2370; J2405; J2704; J2710; J3010; J3490; J7030

== ENCOUNTER 2022-10-23 02:26 | Emergency (ER) | payer MEDICARE, MEDICAID, SELFPAY ==
[2022-10-23 02:27] VITALS: BP 119/74; PULSE 112; RESP 16; TEMP 36.7; O2SAT 93
--- NOTE | 2022-10-23 02:33 | CTR_ITS ---
PROCEDURE INFORMATION: Exam: CT Abdomen And Pelvis Without Contrast Exam date and time: 10/23/2022 2:39 AM Age: 52 years old Clinical indication: Abdominal pain; Flank; Prior surgery; Surgery date: <1 month; Surgery type: Left ureteral stent; Additional info: Left flank pain TECHNIQUE: Imaging protocol: Computed tomography of the abdomen and pelvis without contrast. Radiation optimization: All CT scans at this facility use at least one of these dose optimization techniques: automated exposure control; mA and/or kV adjustment per patient size (includes targeted exams where dose is matched to clinical indication); or iterative reconstruction. COMPARISON: CT abdomen pelvis w con* [id number] 10/02/2022 12:08 PM RADIATION DOSE METRICS: Total DLP (mGy-cm): 537.52 FINDINGS: Tubes, catheters and devices: ICD leads in the right heart chambers. Antegrade percutaneous left nephrostomy catheter with unremarkable position coiled in the renal pelvis. Liver: Mass in the posterior right liver is redemonstrated without change. Gallbladder and bile ducts: Cholecystectomy. Nondilated biliary system. Pancreas: Normal. No ductal dilation. Spleen: Normal. No splenomegaly. Adrenal glands: Normal. No mass. Kidneys and ureters: Kidney parenchyma is atrophic bilaterally worse left than right. Multiple nonobstructing right renal stones. 2-3 mm proximal left ureteral stone. Negative for hydroureteronephrosis. No perinephric fluid collection. Stomach and bowel: Unremarkable. No obstruction. No mucosal thickening. Appendix: Normal appendix. Intraperitoneal space: Unremarkable. No free air. No significant fluid collection. Vasculature: Diffuse atherosclerosis of abdominal aorta. Negative for aneurysm. Lymph nodes: Unremarkable. No enlarged lymph nodes. Urinary bladder: Unremarkable as visualized. Reproductive: Unremarkable as visualized. Bones/joints: Intramedullary nail and hip screw fixated proximal femur. Unremarkable alignment. Negative for acute fracture. Severe disc disease at L5-S1. Soft tissues: Unremarkable. CT/CT abdomen pelvis wo con [id number] IMPRESSION: 1. Negative for acute abdominopelvic pathology. 2. Left collecting system is decompressed via percutaneous nephrostomy tube. 3. Left ureterolithiasis persist.
--- NOTE | 2022-10-23 02:35 | ED_ITS ---
HPI - Abdominal Pain General: Chief Complaint: Back Pain/Injury Stated Complaint: abdominal pain Time Seen by Provider: 10/23/22 02:28 Source: patient and EMS Mode of arrival: EMS Limitations: no limitations History of Present Illness: 52-year-old female who was found to have strictures of her left ureter and had a cystoscope here was unable to have a stent placed she had went to [place] within September had a nephrostomy tube placed. She states that today she has been having left-sided flank pain that she rates an 8 out of 10 denies any vomiting diarrhea denies any worsening improving factors. Associated Symptoms: Denies chills, diarrhea, fever(s), nausea and vomiting Review of Systems Const: Denies: fever(s), chills, body aches or change in appetite Eyes: Denies: blurry vision or eye discomfort ENMT: Denies: throat pain or dental pain Card: Denies: chest pain Resp: Denies: dyspnea GI: Denies: abdominal pain, nausea, vomiting or diarrhea : Reports: flank pain Musc: Denies: neck pain or back pain Skin/Breast: Denies: rash Neuro: Denies: headache(s) Psych: Denies: depression Cedric/Lymph: Denies: easy bruising All/Imm: Denies: urticaria PFSH ED PFSH: Medical History CHF (congestive heart failure) Related to nonischemic cardiomyopathy, most recent ejection fraction with with EF 42%. History of recurrent UTIs History of TIA (transient ischemic attack) HTN (hypertension) ICD (implantable cardioverter-defibrillator) in place Mass of right lobe of liver ~3.5 x 4 cm, indeterminant, hypodense, first noted 11/2021 Nonischemic cardiomyopathy Specific etiology unknown, may have been viral or related to uncontrolled hypertension from her recollection Echocardiogram November 2021 with ejection fraction of 42% - 05/17/22 echo EF now 25% Obstructive pyelonephritis (~11/2021) Urolithiasis Multi stone former. Complicated by at least 1 episode of obstructive pyelonephritis. Multiple procedures required to treat Surgical History S/P ureteral stent placement (~11/2021) Status post cholecystectomy Status post placement of cardiac pacemaker Family History Father , AT AGE 77 CAD (coronary artery disease) Cancer lung cancer Mother , AT AGE 60 Cancer OVARIAN Denies family history of Clotting disorder Anesthesia complication Bleeding disorder Social History Smoking and tobacco status: current every day smoker cigarettes Packs smoked per day: 0.5 Years cigarettes smoked: 45 Second hand smoke exposure: Yes Alcohol intake: current Lives independently: Yes Marital status: service: No Current occupational status: disabled Current gender identity: Female Physical Exam Const: COMMON NORMALS: no acute distress, patient oriented x3 and healthy appearing HENMT: COMMON NORMALS: normocephalic and atraumatic HEAD & SCALP: normocephalic and atraumatic Eye: COMMON NORMALS: Equal, round and reactive pupils present and EOMs intact bilaterally PUPIL: Yes Equal, round and reactive pupils present Neck/C-Spine: COMMON NORMALS: full ROM and supple Chest: COMMONS NORMALS: normal inspection of the chest and normal palpation of entire chest wall Resp: COMMON NORMALS: normal respiratory effort, No retractions, No use of accessory muscles and clear to auscultation bilaterally AUSCULTATION: clear to auscultation bilaterally Cardio: COMMON NORMALS: regular rate, regular rhythm and No murmurs present (Cardio) RATE: regular rate RHYTHM: regular rhythm GI: COMMON NORMALS: Normal to inspection, nondistended, normoactive bowel sounds present, Soft to palpation, non-tender and no masses PALPATION: Yes Soft to palpation Extremity: COMMON NORMALS: normal to inspection and full ROM Neuro: COMMON NORMALS: patient oriented x3, moves all extremities and no focal motor deficits Psych: COMMON NORMALS: mental status grossly normal, Normal thought process present and cooperative THOUGHT PROCESS: Normal thought process present Skin: COMMON NORMALS: no rashes or lesions noted and no wounds GENERAL SKIN EXAM: no rashes or lesions noted Course Vital Signs: Vital signs: Vital Signs Temperature 98.1 F 10/23/22 02:27 Pulse Rate 110 H 10/23/22 04:18 Respiratory Rate 16 10/23/22 04:18 Blood Pressure 128/86 10/23/22 04:18 Pulse Oximetry 94 10/23/22 04:18 Oxygen Delivery Me thod 10/23/22 04:18 MDM - Abdominal Pain Medical Decision Making Patient presents for flank pain that is improved her nephrostomy tubes in place draining well no abnormalities on CT scan has a mild UTI she is stable for discharge she is to follow-up with urologist we will place her on antibiotics and pain meds. Lab Data 10/23/22 03:07 10/23/22 03:07 Labs/Radiology: Radiology Impressions Abdomen/Pelvis CT 10/23/22 02:33 IMPRESSION: 1. Negative for acute abdominopelvic pathology. 2. Left collecting system is decompressed via percutaneous nephrostomy tube. 3. Left ureterolithiasis persist. Laboratory Results WBC 6.7 10^3/uL (4.0-10.0) 10/23/22 03:07 RBC 2.98 10^6/uL (4.1-5.3) L 10/23/22 03:07 Hgb 10.4 g/dL (11.5-15.3) L 10/23/22 03:07 Hct 32.0 % (37.0-47.0) L 10/23/22 03:07 MCV 107.4 fl (81-99) H 10/23/22 03:07 MCH 34.9 pg (28.0-34.0) H 10/23/22 03:07 MCHC 32.5 g/dL (30.0-36.0) 10/23/22 03:07 RDW 13.5 % (12.1-15.1) 10/23/22 03:07 Plt Count 166 10^3/cmm (130-400) 10/23/22 03:07 MPV 10.5 fL (7.4-10.4) H 10/23/22 03:07 Neut % (Auto) 69.1 % 10/23/22 03:07 Lymph % (Auto) 23.4 % 10/23/22 03:07 Cameron % (Auto) 5.1 % 10/23/22 03:07 Eos % (Auto) 0.9 % 10/23/22 03:07 Baso % (Auto) 0.9 % 10/23/22 03:07 Neut # (Auto) 4.62 10^3/uL (1.8-7.7) 10/23/22 03:07 Lymph # (Auto) 1.6 10^3/uL (0.8-4.8) 10/23/22 03:07 Cameron # (Auto) 0.3 10^3/uL (0.2-0.9) 10/23/22 03:07 Eos # (Auto) 0.1 10^3/uL (0.0-0.8) 10/23/22 03:07 Baso # (Auto) 0.1 10^3/uL (0.0-0.1) 10/23/22 03:07 Nucleated RBC % (auto) 0 % 10/23/22 03:07 Nucleated RBCs # 0.0 /100WBC 10/23/22 03:07 Sodium 138 mmol/L (136-145) 10/23/22 03:07 Potassium 3.2 mmol/L (3.5-5.1) L 10/23/22 03:07 Chloride 105 mmol/L (98-107) 10/23/22 03:07 Carbon Dioxide 22 mmol/L (22-29) 10/23/22 03:07 Anion Gap 14.2 (5-19) 10/23/22 03:07 BUN 16 mg/dL (6-20) 10/23/22 03:07 Creatinine 1.1 mg/dL (0.5-0.9) H 10/23/22 03:07 GFR Calculation 52.2 mL/min (90-130) L 10/23/22 03:07 Glucose 100 mg/dL (65-115) 10/23/22 03:07 Calculated Osmolality 287 mOsm/kg (285-295) 10/23/22 03:07 Calcium 8.5 mg/dL (8.5-10.5) 10/23/22 03:07 Total Bilirubin 0.5 mg/dL (0.15-1.2) 10/23/22 03:07 AST 16 U/L (0-32) 10/23/22 03:07 ALT 13 U/L (0-33) 10/23/22 03:07 Alkaline Phosphatase 91 U/L (35-105) 10/23/22 03:07 Total Protein 6.3 g/dL (6.6-8.7) L 10/23/22 03:07 Albumin 3.9 g/dL (3.5-5.2) 10/23/22 03:07 Globulin 2.4 g/dL (1.3-4.6) 10/23/22 03:07 Lipase 16 U/L (13-60) 10/23/22 03:07 Urine Color Yellow (Yellow) 10/23/22 04:07 Urine Appearance Hazy (CLEAR) A 10/23/22 04:07 Urine pH 5 (5-7) 10/23/22 04:07 Ur Specific [place] 1.025 (1.005-1.030) 10/23/22 04:07 Urine Protein 1+ (Negative) H 10/23/22 04:07 Urine Glucose (UA) Norm (Normal) 10/23/22 04:07 Urine Ketones 1+ (Negative) H 10/23/22 04:07 Urine Blood Neg (Negative) 10/23/22 04:07 Urine Nitrate Negative (Negative) 10/23/22 04:07 Urine Bilirubin 1+ (Negative) H 10/23/22 04:07 Urine Urobilinogen Neg mg/dL (Negative) 10/23/22 04:07 Ur Leukocyte Esterase 2+ (Negative) H 10/23/22 04:07 Urine RBC 0-4 /hpf (0-2) H 10/23/22 04:07 Urine WBC 15-25 /hpf (0-5) H 10/23/22 04:07 Ur Squamous Epith Cells 25-40 /hpf (0-5) H 10/23/22 04:07 Calcium Oxalate Crystal 0-4 /hpf H 10/23/22 04:07 Amorphous Sediment Not Reportable 10/23/22 04:07 Urine Bacteria 2+ /hpf (NONE) H 10/23/22 04:07 Hyaline Casts 0-4 /lpf H 10/23/22 04:07 Urine Mucus 1+ /hpf 10/23/22 04:07 Discharge Plan Discharge Patient Disposition: Home Clinical Impression: Flank pain, UTI (urinary tract infection) Condition: Stable Prescriptions: New hydrocodone-acetaminophen 5-325 mg tablet 1 tab PO Q6H PRN (Reason: pain) Qty: 14 0RF cephalexin 500 mg capsule 500 mg PO TID 7 Days Qty: 21 0RF ondansetron 4 mg tablet,disintegrating 4 mg PO Q6H PRN (Reason: nausea and vomiting) Qty: 14 0RF No Action citalopram [Celexa] 40 mg tablet 40 mg PO QPM zolpidem 10 mg tablet 10 mg PO BEDTIME aspirin [Adult Low Dose Aspirin] 81 mg tablet,delayed release (DR/EC) 162 mg PO QAM Hold Instructions: Resume on 10/19/22. Until after percutaneous tube placed in the left kidney nitroglycerin [Nitrostat] 0.4 mg tablet, sublingual 0.4 mg SUBLINGUAL Q5M PRN (Reason: chest pain) Qty: 25 3RF ferrous sulfate 325 mg (65 mg iron) tablet 325 mg PO QAM sacubitril-valsartan 97-103 mg tablet 1 tab PO BID Qty: 120 3RF Hold Instructions: Resume on 10/09/22. Vitamin B-12 50 mcg Tablet 50 mcg PO QAM montelukast 10 mg tablet 10 mg PO QAM levalbuterol tartrate 45 mcg/actuation Hfa Aerosol Inhaler 2 inh INHALATION Q6H PRN (Reason: Shortness Of Breath) oxycodone 5 mg tablet 5 mg PO Q4H PRN (Reason: pain) Qty: 10 0RF potassium chloride 10 mEq capsule, extended release 10 meq PO BID Qty: 14 0RF Percocet 5-325 mg tablet 1 tab PO Q6H Qty: 12 0RF pantoprazole 40 mg Tablet,Delayed Release (Dr/Ec) 40 mg PO DAILY furosemide [Lasix] 20 mg tablet 20 mg PO BID PRN (Reason: Edema) cyclobenzaprine 10 mg Tablet 10 mg PO TID PRN (Reason: Muscle Spasms) Qty: 30 0RF gabapentin 100 mg Capsule 200 mg PO TID Qty: 180 0RF capsaicin 0.025 % Cream 1 applic topical QID PRN (Reason: Pain) Qty: 60 0RF acetaminophen 325 mg Tablet 650 mg PO Q6H PRN (Reason: Mild/Mod Pain Or Temp >/= 101) Qty: 90 0RF carvedilol 3.125 mg tablet 3.125 mg PO BID Qty: 60 0RF Rx Instructions: must administer with a meal/food Discharge Orders: Discharge ED (Routine); Ordered 10/23/22 Ordered By: Marc Mora Referrals: Ferny Peterson MD [Primary Care Provider] - Discharge Diet: Advance as tolerated Discharge Activity: Resume usual activity Patient Instructions: Urinary Tract Infection in Women (ED) Coding Level of Care Code ED Caustic Loader for Jesusg Fwd Exam Comprehensive
[2022-10-23] MEDS: sodium chloride 0.9% 1,000 ML 999 ML IV (02:56)
[2022-10-23] MEDS: ondansetron 2 mg/ML SDV 2 mL 4 MG IVP (02:57)
[2022-10-23] MEDS: HYDROmorphone 1 mg/mL INJ 1 mL 0.5 MG IVP (02:57)
[2022-10-23 02:59] VITALS: BP 119/74; PULSE 105; RESP 16; O2SAT 92
[2022-10-23 03:16] LABS: Basophils # 0.1 10^3/uL (0.0-0.1); Basophils % 0.9 %; Eosinophils # 0.1 10^3/uL (0.0-0.8); Eosinophils % 0.9 %; Hemoglobin 10.4 g/dL (11.5-15.3); Lymphocytes # 1.6 10^3/uL (0.8-4.8); Lymphocytes % 23.4 %; Mean Corpuscular HGB Conc 32.5 g/dL (30.0-36.0); Mean Corpuscular Hemoglobin 34.9 pg (28.0-34.0); Mean Corpuscular Volume 107.4 fl (81-99); Mean Platelet Volume 10.5 fL (7.4-10.4); Monocytes # 0.3 10^3/uL (0.2-0.9); Monocytes % 5.1 %; Neutrophils # 4.62 10^3/uL (1.8-7.7); Neutrophils % 69.1 %; Nucleated Red Blood Cells % 0 %; Platelet Count 166 10^3/cmm (130-400); Red Blood Count 2.98 10^6/uL (4.1-5.3); Red Cell Distribution Width 13.5 % (12.1-15.1); White Blood Count 6.7 10^3/uL (4.0-10.0)
[2022-10-23 04:00] LABS: Alanine Aminotransferase 13 U/L (0-33); Albumin Level 3.9 g/dL (3.5-5.2); Alkaline Phosphatase 91 U/L (35-105); Anion Gap 14.2 (5-19); Aspartate Amino Transferase 16 U/L (0-32); Blood Urea Nitrogen 16 mg/dL (6-20); Calcium 8.5 mg/dL (8.5-10.5); Carbon Dioxide 22 mmol/L (22-29); Chloride 105 mmol/L (98-107); Globulin 2.4 g/dL (1.3-4.6); Glomerular Filtration Rate 52.2 mL/min (90-130); Glucose 100 mg/dL (65-115); Lipase 16 U/L (13-60); Osmolality Calculated 287 mOsm/kg (285-295); Potassium 3.2 mmol/L (3.5-5.1); Sodium 138 mmol/L (136-145); Total Bilirubin 0.5 mg/dL (0.15-1.2); Total Protein 6.3 g/dL (6.6-8.7)
--- NOTE | 2022-10-23 04:00 | PC.NURSE ---
Assisted pt to restroom. Pt ambulated without difficulty. Reports increased nausea and one episode of vomiting. MD notified. Order received.
[2022-10-23] MEDS: diphenhydrAMINE 50 mg/mL SDV 1mL IVP (04:17)
[2022-10-23 04:18] VITALS: BP 128/86; PULSE 110; RESP 16; O2SAT 94
[2022-10-23] MEDS: metoclopramide 5 mg/mL SDV 2 mL 10 MG IVP (04:18)
[2022-10-23 04:25] LABS: Add Urine Microscopic? YES; Bilirubin Urine 1+ (Negative); Blood Urine Neg (Negative); Glucose Urine UA Norm (Normal); Ketones Urine 1+ (Negative); Leukocyte Esterase Urine 2+ (Negative); Nitrate Urine Negative (Negative); Protein Urine 1+ (Negative); Specific Gravity, Urine 1.025 (1.005-1.030); Urine Appearance Hazy (CLEAR); Urine Color Yellow (Yellow); Urobilinogen Urine Neg (Negative); pH Urine 5 (5-7)
[2022-10-23 04:28] LABS: Bacteria Urine 2+ /hpf; RBC Urine 0-4 /hpf (0-2); Squamous Epithelial Cell Urine 25-40 /hpf (0-5); WBC Urine 15-25 /hpf (0-5)
[2022-10-23 04:29] LABS: Add Urine Culture? No; Calcium Oxalate Crystals Urine 0-4 /hpf; Hyaline Casts Urine 0-4 /lpf; Mucus Urine 1+ /hpf
[2022-10-23] MEDS: cefTRIAXone 1,000 MG in sodium chloride 0.9% (plus) 50 ML 100 MG IV (05:10)
[2022-10-23 05:17] VITALS: BP 130/80; PULSE 96; RESP 14; TEMP 36.9; O2SAT 95
== END 2022-10-23 05:52 | disposition home or self-care (01) ==
PROVIDERS: Emergency Provider Emergency Medicine; PCP Family Medicine
DX: N39.0 Urinary tract infection, site not specified (principal); Z79.82 Long term (current) use of aspirin; F17.210 Nicotine dependence, cigarettes, uncomplicated; I11.0 Hypertensive heart disease with heart failure; I50.9 Heart failure, unspecified; Z87.440 Personal history of urinary (tract) infections; Z86.73 Personal history of transient ischemic attack (TIA), and cerebral infarction without residual deficits; N20.1 Calculus of ureter
CPT/HCPCS: 74176; 80053; 81001; 83690; 85025; 96365; 96375; 99285; J0696; J1170; J1200; J2405; J2765; J7030

== ENCOUNTER 2022-10-25 07:56 | Emergency (ER) | payer MEDICARE, MEDICAID, SELFPAY ==
[2022-10-25 08:19] VITALS: BP 106/84; PULSE 106; RESP 18; O2SAT 98
--- NOTE | 2022-10-25 08:26 | XR_ITS ---
WS: [id number] Portable AP upright chest, 10/25/2022 Clinical Data: sob Comparison: Portable chest, 09/30/2022 Findings: No nodules, masses or effusions are seen. The heart is enlarged. The pulmonary vascularity is not increased. No pneumonia or pneumothorax is seen. The cardiac pacemaker remains in the same pos ition. XR/XR chest 1V portable [id number] Impression: Cardiomegaly.
--- NOTE | 2022-10-25 08:33 | W.ED.CHESTPA ---
HPI - Chest Pain General: Chief Complaint: Shortness of Breath/Dyspnea Stated Complaint: SOB Time Seen by Provider: 10/25/22 08:00 Source: patient Mode of arrival: EMS Limitations: no limitations History of Present Illness: Patient is a nice 52-year-old female who presents to ED today with a complaint of right sided chest pain that began around 5 AM this morning. She states pain seems to be in the right lower lateral chest wall and radiates into the back. She states she does feel a little short of breath but this is fairly chronic for her given her smoking history and history of CHF. She has had a little trouble lying flat which she can normally do. Patient has not had any cough, URI-like symptoms, or fevers. Patient denies dysuria, frequency, urgency, hematuria. Patient does have a left nephrostomy tube. This seems to be functioning normally. Patient states she has had approximately 3-4 identical episodes like this over the past month or so. She has had extensive work-ups including cardiac rule outs and CTA imaging to evaluate for PE. Patient states the other episodes seemed to alleviate on their own. Pain seems to be worse with deep inhalation, movement, and palpation. Patient seen here 2 days ago and diagnosed with UTI. She is taking her abx as prescribed. MD complaint: chest pain and other (back pain) Onset (ago): hour(s) Timing of current episode: episodic Prior episodes: Yes Onset: during rest Pain location: right chest and posterior Pain radiation: none Quality: sharp and other (stabbing) Relieving factors: nothing Exacerbating factors: inspiration, palpation and movement Associated symptoms: Reports dyspnea; Deny abdominal pain, fever(s), nausea, palpitations, syncope or vomiting Treatment prior to arrival: none Risk Factors: Coronary artery disease risk factors: smoking history Related Data: On Oral Contraceptives: No Review of Systems Const: Denies: fever(s), chills, body aches, fatigue or malaise Card: Reports: chest pain (R lateral ) and dyspnea on exertion (chronic); Denies: palpitations, irregular heart rhythm, edema, swelling of feet/ankles, lightheadedness, syncope, pre-syncope, orthopnea, leg pain with exertion or acrocyanosis Resp: Reports: dyspnea and pain on inspiration; Denies: productive cough, non-productive cough, wheezing, hemoptysis or chest congestion GI: Denies: abdominal pain, nausea, vomiting or diarrhea : Reports: other (L nephrostomy tube); Denies: flank pain, difficulty voiding, dysuria, urinary frequency, urinary urgency or urinary hesitancy Musc: Reports: back pain; Denies: neck pain, extremity pain or joint pain Skin/Breast: Denies: rash Neuro: Denies: headache(s), numbness in extremities, weakness in extremities or sensory changes PFSH ED PFSH: Medical History CHF (congestive heart failure) Related to nonischemic cardiomyopathy, most recent ejection fraction with with EF 42%. History of recurrent UTIs History of TIA (transient ischemic attack) HTN (hypertension) ICD (implantable cardioverter-defibrillator) in place Mass of right lobe of liver ~3.5 x 4 cm, indeterminant, hypodense, first noted 11/2021 Nonischemic cardiomyopathy Specific etiology unknown, may have been viral or related to uncontrolled hypertension from her recollection Echocardiogram November 2021 with ejection fraction of 42% - 05/17/22 echo EF now 25% Obstructive pyelonephritis (~11/2021) Urolithiasis Multi stone former. Complicated by at least 1 episode of obstructive pyelonephritis. Multiple procedures required to treat Surgical History S/P ureteral stent placement (~11/2021) Status post cholecystectomy Status post placement of cardiac pacemaker Family History Father , AT AGE 77 CAD (coronary artery disease) Cancer lung cancer Mother , AT AGE 60 Cancer OVARIAN Denies family history of Clotting disorder Anesthesia complication Bleeding disorder Social History Smoking and tobacco status: current every day smoker cigarettes Packs smoked per day: 0.5 Years cigarettes smoked: 45 Second hand smoke exposure: Yes Alcohol intake: current Lives independently: Yes Marital status: service: No Current occupational status: disabled Current gender identity: Female Physical Exam Const: COMMON NORMALS: no acute distress, patient oriented x3, no limitations, alert and well nourished GENERAL APPEARANCE: cooperative ORIENTATION/CONSCIOUSNESS: Yes awake, Yes oriented to person, Yes oriented to place and Yes oriented to time HENMT: COMMON NORMALS: normocephalic and atraumatic HEAD & SCALP: normal to inspection, normocephalic and atraumatic Neck/C-Spine: COMMON NORMALS: full ROM, no lymphadenopathy and no meningeal signs Chest: COMMONS NORMALS: normal inspection of the chest CHEST: Yes tenderness OTHER: pt has tenderness to R lower posteriolateral chest wall-palpation seems to directly reproduce symptoms Resp: COMMON NORMALS: normal respiratory effort and clear to auscultation bilaterally AUSCULTATION: clear to auscultation bilaterally Cardio: COMMON NORMALS: regular rate and regular rhythm RATE: regular rate RHYTHM: regular rhythm GI: COMMON NORMALS: Normal to inspection, nondistended, normoactive bowel sounds present, Soft to palpation, non-tender, No hepatosplenomegaly present and no masses INSPECTION: Yes normal to inspection AUSCULTATION: Yes normoactive bowel sounds PALPATION: Yes Soft to palpation and Yes No hepatosplenomegaly present : COMMON NORMALS: Yes no CVA tenderness BLADDER/KIDNEY EXAM: Yes no CVA tenderness OTHER: L nephrostomy tube Back/Pelvis: COMMON NORMALS: no CVA tenderness, thoracic and lumbar spine normal to inspection, no thoracic nor lumbar tenderness and thoraco-lumbar ROM normal Extremity: COMMON NORMALS: normal to inspection GENERAL: Yes normal exam except as noted Neuro: GRETA COMA SCALE: document GCS findings Greta coma scale eye opening: Spontaneous [place] coma scale verbal response: Orientated [place] coma scale motor response: Obey commands Greta coma scale total score: 15 COMMON NORMALS: patient oriented x3, moves all extremities, no focal motor deficits and no sensory deficits noted SENSORIUM/ORIENTATION: Yes alert, Yes oriented to person, Yes oriented to place and Yes oriented to time MENINGEAL SIGNS: Yes no meningeal signs Skin: COMMON NORMALS: no rashes or lesions noted GENERAL SKIN EXAM: no rashes or lesions noted Course Vital Signs: Vital signs: Vital Signs Pulse Rate 100 10/25/22 09:23 Respiratory Rate 18 10/25/22 09:23 Blood Pressure 133/86 10/25/22 09:23 Pulse Oximetry 94 10/25/22 09:23 Oxygen Delivery Me thod Nasal Cannula 10/25/22 09:23 MDM - Chest Pain Medical Decision Making Patient here for right sided chest wall pain that is easily reproducible. She has had identical episodes previously that has been worked up fairly extensively cardiac rule outs and CTA imaging all of which have never found a cause for her symptoms. She was also complaining of some shortness of breath. Patient does have a history of CHF. Clinically she does not appear fluid overloaded. CXR showing chronic cardiomegaly/no change from previous films. Blood work showing a BNP of over 10,000. This seems to be double what it was about a month ago. Patient does take 20mg Lasix BID. Potassium was slightly low here at 3.3. She was given oral potassium replacement. She will be sent home on potassium over the next 5 days. She was given a dose of Lasix here and will double her Lasix dose at home over the next 3 days. UA still suspicious for UTI (diagnosed with this two days ago-taking antibiotics-no culture performed on last visit due to too many squamous cells). 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 Return to ED precautions given. Lab Data 10/25/22 09:12 10/25/22 09:12 Radiology Impressions Chest X-Ray 10/25/22 08:26 Impression: Cardiomegaly. Laboratory Results WBC 6.4 10^3/uL (4.0-10.0) 10/25/22 09:12 RBC 2.81 10^6/uL (4.1-5.3) L 10/25/22 09:12 Hgb 9.8 g/dL (11.5-15.3) L 10/25/22 09:12 Hct 30.2 % (37.0-47.0) L 10/25/22 09:12 MCV 107.5 fl (81-99) H 10/25/22 09:12 MCH 34.9 pg (28.0-34.0) H 10/25/22 09:12 MCHC 32.5 g/dL (30.0-36.0) 10/25/22 09:12 RDW 13.7 % (12.1-15.1) 10/25/22 09:12 Plt Count 134 10^3/cmm (130-400) 10/25/22 09:12 MPV 11.3 fL (7.4-10.4) H 10/25/22 09:12 Neut % (Auto) 67.4 % 10/25/22 09:12 Lymph % (Auto) 24.7 % 10/25/22 09:12 [place] % (Auto) 5.4 % 10/25/22 09:12 Eos % (Auto) 1.6 % 10/25/22 09:12 Baso % (Auto) 0.6 % 10/25/22 09:12 Neut # (Auto) 4.28 10^3/uL (1.8-7.7) 10/25/22 09:12 Lymph # (Auto) 1.6 10^3/uL (0.8-4.8) 10/25/22 09:12 Wright # (Auto) 0.3 10^3/uL (0.2-0.9) 10/25/22 09:12 Eos # (Auto) 0.1 10^3/uL (0.0-0.8) 10/25/22 09:12 Baso # (Auto) 0.0 10^3/uL (0.0-0.1) 10/25/22 09:12 Nucleated RBC % (auto) 0 % 10/25/22 09:12 Nucleated RBCs # 0.0 /100WBC 10/25/22 09:12 Sodium 141 mmol/L (136-145) 10/25/22 09:12 Potassium 3.3 mmol/L (3.5-5.1) L 10/25/22 09:12 Chloride 104 mmol/L (98-107) 10/25/22 09:12 Carbon Dioxide 25 mmol/L (22-29) 10/25/22 09:12 Anion Gap 15.3 (5-19) 10/25/22 09:12 BUN 19 mg/dL (6-20) 10/25/22 09:12 Creatinine 1.2 mg/dL (0.5-0.9) H 10/25/22 09:12 GFR Calculation 47.2 mL/min (90-130) L 10/25/22 09:12 Glucose 95 mg/dL (65-115) 10/25/22 09:12 Calculated Osmolality 294 mOsm/kg (285-295) 10/25/22 09:12 Calcium 9.2 mg/dL (8.5-10.5) 10/25/22 09:12 Total Bilirubin 0.6 mg/dL (0.15-1.2) 10/25/22 09:12 AST 15 U/L (0-32) 10/25/22 09:12 ALT 11 U/L (0-33) 10/25/22 09:12 Alkaline Phosphatase 100 U/L (35-105) 10/25/22 09:12 NT-Pro-B Natriuret Pep 88417 pg/mL (0-125) H 10/25/22 09:12 Total Protein 6.7 g/dL (6.6-8.7) 10/25/22 09:12 Albumin 3.9 g/dL (3.5-5.2) 10/25/22 09:12 Globulin 2.8 g/dL (1.3-4.6) 10/25/22 09:12 Urine Color Yellow (Yellow) 10/25/22 09:00 Urine Appearance Hazy (CLEAR) A 10/25/22 09:00 Urine pH 5 (5-7) 10/25/22 09:00 Ur Specific [place] 1.015 (1.005-1.030) 10/25/22 09:00 Urine Protein Trace (Negative) 10/25/22 09:00 Urine Glucose (UA) Norm (Normal) 10/25/22 09:00 Urine Ketones 1+ (Negative) H 10/25/22 09:00 Urine Blood 2+ (Negative) H 10/25/22 09:00 Urine Nitrate Negative (Negative) 10/25/22 09:00 Urine Bilirubin 1+ (Negative) H 10/25/22 09:00 Urine Urobilinogen Norm mg/dL (Negative) 10/25/22 09:00 Ur Leukocyte Esterase 2+ (Negative) H 10/25/22 09:00 Urine RBC 5-10 /hpf (0-2) H 10/25/22 09:00 Urine WBC None /hpf (0-5) 10/25/22 09:00 Ur Squamous Epith Cells 5-10 /hpf (0-5) H 10/25/22 09:00 Ur Renal Epithelial Cell 0-4 /hpf 10/25/22 09:00 Amorphous Sediment Not Reportable 10/25/22 09:00 Urine Bacteria Trace /hpf (NONE) 10/25/22 09:00 Discharge Plan Discharge Patient Disposition: Home Clinical Impression: Right-sided chest wall pain, Elevated brain natriuretic peptide (BNP) level, Congestive heart failure Condition: Stable Prescriptions: New potassium chloride 20 mEq tablet extended release 20 meq PO BID Qty: 10 0RF No Action citalopram [Celexa] 40 mg tablet 40 mg PO QPM zolpidem 10 mg tablet 10 mg PO BEDTIME aspirin [Adult Low Dose Aspirin] 81 mg tablet,delayed release (DR/EC) 162 mg PO QAM Hold Instructions: Resume on 10/19/22. Until after percutaneous tube placed in the left kidney nitroglycerin [Nitrostat] 0.4 mg tablet, sublingual 0.4 mg SUBLINGUAL Q5M PRN (Reason: chest pain) Qty: 25 3RF ferrous sulfate 325 mg (65 mg iron) tablet 325 mg PO QAM sacubitril-valsartan 97-103 mg tablet 1 tab PO BID Qty: 120 3RF Hold Instructions: Resume on 10/09/22. Vitamin B-12 50 mcg Tablet 50 mcg PO QAM montelukast 10 mg tablet 10 mg PO QAM levalbuterol tartrate 45 mcg/actuation Hfa Aerosol Inhaler 2 inh INHALATION Q6H PRN (Reason: Shortness Of Breath) oxycodone 5 mg tablet 5 mg PO Q4H PRN (Reason: pain) Qty: 10 0RF potassium chloride 10 mEq capsule, extended release 10 meq PO BID Qty: 14 0RF Percocet 5-325 mg tablet 1 tab PO Q6H Qty: 12 0RF pantoprazole 40 mg Tablet,Delayed Release (Dr/Ec) 40 mg PO DAILY furosemide [Lasix] 20 mg tablet 20 mg PO BID PRN (Reason: Edema) cyclobenzaprine 10 mg Tablet 10 mg PO TID PRN (Reason: Muscle Spasms) Qty: 30 0RF gabapentin 100 mg Capsule 200 mg PO TID Qty: 180 0RF capsaicin 0.025 % Cream 1 applic topical QID PRN (Reason: Pain) Qty: 60 0RF acetaminophen 325 mg Tablet 650 mg PO Q6H PRN (Reason: Mild/Mod Pain Or Temp >/= 101) Qty: 90 0RF carvedilol 3.125 mg tablet 3.125 mg PO BID Qty: 60 0RF Rx Instructions: must administer with a meal/food hydrocodone-acetaminophen 5-325 mg tablet 1 tab PO Q6H PRN (Reason: pain) Qty: 14 0RF cephalexin 500 mg capsule 500 mg PO TID 7 Days Qty: 21 0RF ondansetron 4 mg tablet,disintegrating 4 mg PO Q6H PRN (Reason: nausea and vomiting) Qty: 14 0RF Discharge Orders: Discharge ED (Routine); Ordered 10/25/22 Ordered By: Lynne Luis Referrals: Ferny Peterson MD [Primary Care Provider] - Activity Restrictions/Additional Instructions: As we discussed I want you to start taking 40mg of your Lasix twice daily over the next 3 days. You can then go back to your normal dose of 20mg twice daily. Fill the prescription for your potassium and take this as directed. Please follow-up with Dr. Pineda/cardiology tomorrow at your scheduled appointment. Coding Level of Care Code ED Audio Visual Coordinator for Wesley Fwbrandon Exam Comprehensive
[2022-10-25 08:53] VITALS: BP 133/86; PULSE 100; RESP 18; O2SAT 94
[2022-10-25 09:19] LABS: Basophils % 0.6 %; Eosinophils # 0.1 10^3/uL (0.0-0.8); Eosinophils % 1.6 %; Hematocrit 30.2 % (37.0-47.0); Hemoglobin 9.8 g/dL (11.5-15.3); Lymphocytes # 1.6 10^3/uL (0.8-4.8); Lymphocytes % 24.7 %; Mean Corpuscular HGB Conc 32.5 g/dL (30.0-36.0); Mean Corpuscular Hemoglobin 34.9 pg (28.0-34.0); Mean Corpuscular Volume 107.5 fl (81-99); Mean Platelet Volume 11.3 fL (7.4-10.4); Monocytes # 0.3 10^3/uL (0.2-0.9); Monocytes % 5.4 %; Neutrophils # 4.28 10^3/uL (1.8-7.7); Neutrophils % 67.4 %; Nucleated Red Blood Cells % 0 %; Platelet Count 134 10^3/cmm (130-400); Red Blood Count 2.81 10^6/uL (4.1-5.3); Red Cell Distribution Width 13.7 % (12.1-15.1); White Blood Count 6.4 10^3/uL (4.0-10.0)
[2022-10-25 09:23] VITALS: BP 133/86; PULSE 100; RESP 18; O2SAT 94
[2022-10-25 09:50] LABS: Alanine Aminotransferase 11 U/L (0-33); Albumin Level 3.9 g/dL (3.5-5.2); Alkaline Phosphatase 100 U/L (35-105); Anion Gap 15.3 (5-19); Aspartate Amino Transferase 15 U/L (0-32); Blood Urea Nitrogen 19 mg/dL (6-20); Calcium 9.2 mg/dL (8.5-10.5); Carbon Dioxide 25 mmol/L (22-29); Chloride 104 mmol/L (98-107); Globulin 2.8 g/dL (1.3-4.6); Glomerular Filtration Rate 47.2 mL/min (90-130); Glucose 95 mg/dL (65-115); NT Pro B Type Natriuretic Pept 10856 pg/mL (0-125); Osmolality Calculated 294 mOsm/kg (285-295); Potassium 3.3 mmol/L (3.5-5.1); Sodium 141 mmol/L (136-145); Total Bilirubin 0.6 mg/dL (0.15-1.2); Total Protein 6.7 g/dL (6.6-8.7)
[2022-10-25 09:51] LABS: Blood Urine 2+ (Negative); Glucose Urine UA Norm (Normal); Ketones Urine 1+ (Negative); Nitrate Urine Negative (Negative); Protein Urine Trace (Negative); Specific Gravity, Urine 1.015 (1.005-1.030); Urine Appearance Hazy (CLEAR); Urine Color Yellow (Yellow); pH Urine 5 (5-7)
[2022-10-25 09:52] LABS: Add Urine Culture? No; Add Urine Microscopic? YES; Bacteria Urine TRACE /hpf; Bilirubin Urine 1+ (Negative); Leukocyte Esterase Urine 2+ (Negative); Renal Epithelial Cells Urine 0-4 /hpf; Urobilinogen Urine Norm (Negative)
[2022-10-25 10:22] VITALS: RESP 18; O2SAT 95
[2022-10-25] MEDS: FUROsemide 10 mg/mL SDV 4mL 40 MG IVP (10:22)
[2022-10-25] MEDS: potassium chloride ER 20 mEq Tablet 40 MEQ PO (10:22)
[2022-10-25] MEDS: morphine 4 mg/mL SDV 1 mL IVP (10:22)
== END 2022-10-25 10:35 | disposition home or self-care (01) ==
PROVIDERS: Emergency Provider Physician Assistant; PCP Family Medicine
DX: R07.9 Chest pain, unspecified (principal); N39.0 Urinary tract infection, site not specified; I11.0 Hypertensive heart disease with heart failure; I50.9 Heart failure, unspecified; Z86.73 Personal history of transient ischemic attack (TIA), and cerebral infarction without residual deficits; Z95.810 Presence of automatic (implantable) cardiac defibrillator; F17.210 Nicotine dependence, cigarettes, uncomplicated
CPT/HCPCS: 71045; 80053; 81001; 83880; 85025; 87086; 96374; 96375; 99284; J1940; J2270

== ENCOUNTER 2022-10-26 13:17 | Emergency (ER) | payer MEDICARE, MEDICAID, SELFPAY ==
[2022-10-26 13:30] VITALS: BP 118/83; PULSE 102; RESP 17; TEMP 37.3; O2SAT 93; BMI 27.4
--- NOTE | 2022-10-26 13:55 | XRR_ITS ---
PROCEDURE INFORMATION: Exam: XR Chest Exam date and time: 10/26/2022 2:01 PM Age: 52 years old Clinical indication: Angina pectoris; Prior surgery; Patient HX: --cp for 3-4 days, pain in the middle of upper back, SOB, cough, nausea, getting worse TECHNIQUE: Imaging protocol: Radiologic exam of the chest. Views: 1 view. COMPARISON: CR XR chest 1V portable [id number] 10/25/2022 8:56 AM FINDINGS: Tubes, catheters and devices: Single lead pacemaker is seen on the left. Lungs: Slight increased markings right lung base with today's exam could reflect minimal or early infiltrate. No consolidation. Pleural spaces: Unremarkable. No pleural effusion. No pneumothorax. Heart/Mediastinum: Borderline prominent cardiac size. Bones/joints: Unremarkable. XR/XR chest 1V portable [id number] IMPRESSION: 1. Slight increased markings within the right lung base with today's exam could reflect minimal or early developing infiltrate. 2. No significant change otherwise with previous exam. Left-sided pacemaker and borderline prominent cardiac size.
--- NOTE | 2022-10-26 13:55 | ECG_ITS ---
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 Measurements Intervals [place] Rate: 100 P: 61 MA: 151 QRS: -45 QRSD: 137 T: 70 QT: 427 QTc: 551 Interpretive Statements SINUS TACHYCARDIA LEFT AXIS DEVIATION [QRS AXIS < -30] INTRAVENTRICULAR CONDUCTION DELAY [130+ ms QRS DURATION] LEFT VENTRICULAR HYPERTROPHY AND ST-T CHANGE POSSIBLE ANTERIOR MYOCARDIAL INFARCTION , OF INDETERMINATE AGE [30 ms Q WAVE IN V3/V4, OR R < 0.2 mV IN V4] Compared to ECG 09/30/2022 17:51:22 Left ventricular hypertrophy now present ST (T wave) deviation now present Myocardial infarct finding now present Sinus rhythm no longer present Electronically Signed On 10-27-2022 10:03:57 VARNISHING MACHINE OPERATOR by Sil Pineda M.D. [id number]
--- NOTE | 2022-10-26 13:59 | ED_ITS ---
HPI - Chest Pain General: Chief Complaint: Back Pain/Injury Stated Complaint: CP Time Seen by Provider: 10/26/22 13:32 Source: patient Mode of arrival: EMS Limitations: no limitations History of Present Illness: This lady returns to the emergency department today by EMS from her home. She states that she has mid back pain is been bothering her now for several days. She states she also had some short episode of what she felt like was chest pressure this morning. She denies any falls or injuries to her back. She states that he has not slept well for the last couple of weeks. She has been having some backache related to her left-sided nephrostomy tube as well as what seems to imply that she has been having some positional back pain as well. She states the pain is mid back between her scapula. She states is not affected by movement or deep breaths. She has known history of congestive heart failure and has has an AICD C implanted. She has not had any defibrillations but relates that she had an AI DC placed to replace the previously placed pacemaker and was told she had depressed cardiac function and therefore the defibrillator was placed. She states she has had subjective fevers. She states that she has a nephrostomy tube due to obstructive renal stones. She has been seen by urology here as well as in [place] and is scheduled to be seen by urology in [facility] in November. She states she still makes urine. She denies cough, known exposure to i nfectious disease etc. She is still using tobacco despite her history of cardiovascular disease. He was scheduled to see her pneumatic press hand this morning but called the pneumatic press hand office and told him of her symptoms and they referred her to the emergency department. She was just seen and discharged from this facility yesterday. Associated symptoms: Reports fever(s); Deny abdominal pain, dyspnea, nausea, palpitations, syncope or vomiting Risk Factors: Coronary artery disease risk factors: smoking history and hypertension Review of Systems Const: Reports: fever(s); Denies: chills or body aches Card: Reports: chest pain; Denies: palpitations, irregular heart rhythm, lightheadedness, syncope or pre- syncope Resp: Denies: dyspnea, productive cough or non-productive cough GI: Denies: abdominal pain, nausea, vomiting or diarrhea : Reports: flank pain; Denies: dysuria or urinary frequency Musc: Reports: back pain; Denies: neck pain, extremity pain or extremity swelling Neuro: Denies: headache(s), numbness in extremities or weakness in extremities PFSH ED PFSH: Medical History CHF (congestive heart failure) Related to nonischemic cardiomyopathy, most recent ejection fraction with with EF 42%. History of recurrent UTIs History of TIA (transient ischemic attack) HTN (hypertension) ICD (implantable cardioverter-defibrillator) in place Mass of right lobe of liver ~3.5 x 4 cm, indeterminant, hypodense, first noted 11/2021 Nonischemic cardiomyopathy Specific etiology unknown, may have been viral or related to uncontrolled hypertension from her recollection Echocardiogram November 2021 with ejection fraction of 42% - 05/17/22 echo EF now 25% Obstructive pyelonephritis (~11/2021) Urolithiasis Multi stone former. Complicated by at least 1 episode of obstructive pyelonephritis. Multiple procedures required to treat Surgical History S/P ureteral stent placement (~11/2021) Status post cholecystectomy Status post placement of cardiac pacemaker Family History Father , AT AGE 77 CAD (coronary artery disease) Cancer lung cancer Mother , AT AGE 60 Cancer OVARIAN Denies family history of Clotting disorder Anesthesia complication Bleeding disorder Social History Smoking and tobacco status: current every day smoker cigarettes Packs smoked per day: 0.5 Years cigarettes smoked: 45 Second hand smoke exposure: Yes Alcohol intake: current Lives independently: Yes Marital status: service: No Current occupational status: disabled Current gender identity: Female Physical Exam Narrative: EXAM NARRATIVE: In no acute distress and answers questions in an appropriate fashion. Const: COMMON NORMALS: no acute distress, average body habitus and patient oriented x3 GENERAL APPEARANCE: cooperative and comfortable ORIENTATION/CONSCIOUSNESS: Yes awake HENMT: COMMON NORMALS: normocephalic, Normal nasal mucous membranes and turbinates present and moist oral mucous membranes HEAD & SCALP: normocephalic NOSE: Normal nasal mucous membranes and turbinates present Eye: COMMON NORMALS: Equal, round and reactive pupils present, EOMs intact bilaterally and conjunctivae normal CONJUNCTIVA: Yes conjunctivae normal PUPIL: Yes Equal, round and reactive pupils present Neck/C-Spine: COMMON NORMALS: full ROM, no JVD, Thyroid normal and No carotid bruits THYROID: Thyroid normal Chest: COMMONS NORMALS: normal inspection of the chest and normal palpation of entire chest wall Resp: COMMON NORMALS: normal respiratory effort, No retractions, No use of accessory muscles and clear to auscultation bilaterally AUSCULTATION: clear to auscultation bilaterally Cardio: COMMON NORMALS: no JVD, regular rate, regular rhythm, No murmurs present (Cardio) and Peripheral pulses 2+ throughout RATE: regular rate RHYTHM: regular rhythm PERIPHERAL PULSES: Peripheral pulses 2+ throughout GI: COMMON NORMALS: Normal to inspection, nondistended, normoactive bowel sounds present, Soft to palpation and non-tender PALPATION: Yes Soft to palpation OTHER: Nephrostomy noted at the left lower flank. No drainage around the nephrostomy site, no bleeding, no redness. : COMMON NORMALS: Yes no CVA tenderness BLADDER/KIDNEY EXAM: Yes no CVA tenderness Back/Pelvis: COMMON NORMALS: no CVA tenderness, thoraco-lumbar ROM normal and straight leg raise negative bilaterally OTHER: She has tenderness in the intrascapular region of the mid thorax. There is no skin rashes, bony step-offs etc. BACK IMAGE (FEMALE): 1. Tenderness Extremity: COMMON NORMALS: normal to inspection, full ROM, capillary refill normal, no calf tenderness and no pedal edema Neuro: COMMON NORMALS: patient oriented x3, moves all extremities, no focal motor deficits and no sensory deficits noted CRANIAL NERVES: Yes CN normal except as noted Psych: COMMON NORMALS: mental status grossly normal Skin: COMMON NORMALS: no rashes or lesions noted, no wounds and turgor normal GENERAL SKIN EXAM: no rashes or lesions noted and turgor normal Course Reevaluation(s): Reevaluation #1: Her 2-hour troponin is returned and is shows a positive delta. Repeat EKG reveals no acute ischemic changes. Time: 17:14 Reevaluation #2: Her 6-hour troponin is falling from its maximum at a 2-hour troponin and she has no ischemic changes on serial EKGs mitigating against any ongoing ACS or ischemia. She does have a history of being a troponin leak in the past. Is likely related to her chronic congestive heart failure as well as her other comorbidities. No new or focal findings on repeat examination and she is anxious to be discharged from the hospital. Time: 21:46 Vital Signs: Vital signs: Vital Signs Temperature 99.1 F 10/26/22 18:54 Pulse Rate 102 H 10/26/22 18:54 Respiratory Rate 18 10/26/22 18:54 Blood Pressure 125/78 10/26/22 18:54 Pulse Oximetry 96 10/26/22 18:54 Oxygen Delivery Me thod 10/26/22 18:54 MDM - Chest Pain Medical Decision Making This patient returns to the emergency department with family back pain but also states she has had some other vague chest pressure symptoms. She also has a history of having a nephrostomy tube is also having chronic back pain whether or not that is related to her nephrostomy its not clear initially but subsequently physical examination supported being more of a musculoskeletal etiology. Differential of ACS, musculoskeletal, versus possible infectious etiology to her symptoms were entertained and testing was done to evaluate for those possibilities. Initial troponin was over the cutoff and his second 2-hour troponin also was slightly elevated but subsequent troponins were following. She displayed no EKG changes and did respond regarding her back pain to a Lidoderm patch. She had no evidence of significant urinary tract infection or other concerning findings at this time and is stable. She has chronic anemia which may or may not be a contributing factor to her current presentation with evidence of indices supportive of a macrocytic anemia. She is currently stable at this time for discharge to outpatient follow-up. She has a cardiology follow-up with Dr. De Guzman and also a urology follow-up at the [facility] [place]. Medical Records I reviewed the patient's medical records. Review of neurology note and apparently she has a distal ureteral stricture is thought to be the source for her obstruction not solely her renal stones. Lab Data I reviewed the patient's lab results. 10/26/22 14:15 10/26/22 14:15 Radiology Impressions Chest X-Ray 10/26/22 13:55 IMPRESSION: 1. Slight increased markings within the right lung base with today's exam could reflect minimal or early developing infiltrate. 2. No significant change otherwise with previous exam. Left-sided pacemaker and borderline prominent cardiac size. Laboratory Results WBC 6.0 10^3/uL (4.0-10.0) 10/26/22 14:15 RBC 2.64 10^6/uL (4.1-5.3) L 10/26/22 14:15 Hgb 9.4 g/dL (11.5-15.3) L 10/26/22 14:15 Hct 27.9 % (37.0-47.0) L 10/26/22 14:15 MCV 105.7 fl (81-99) H 10/26/22 14:15 MCH 35.6 pg (28.0-34.0) H 10/26/22 14:15 MCHC 33.7 g/dL (30.0-36.0) 10/26/22 14:15 RDW 14.3 % (12.1-15.1) 10/26/22 14:15 Plt Count 136 10^3/cmm (130-400) 10/26/22 14:15 MPV 10.9 fL (7.4-10.4) H 10/26/22 14:15 Neut % (Auto) 63.9 % 10/26/22 14:15 Lymph % (Auto) 28.4 % 10/26/22 14:15 [place] % (Auto) 5.0 % 10/26/22 14:15 Eos % (Auto) 1.7 % 10/26/22 14:15 Baso % (Auto) 0.7 % 10/26/22 14:15 Neut # (Auto) 3.80 10^3/uL (1.8-7.7) 10/26/22 14:15 Lymph # (Auto) 1.7 10^3/uL (0.8-4.8) 10/26/22 14:15 [place] # (Auto) 0.3 10^3/uL (0.2-0.9) 10/26/22 14:15 Eos # (Auto) 0.1 10^3/uL (0.0-0.8) 10/26/22 14:15 Baso # (Auto) 0.0 10^3/uL (0.0-0.1) 10/26/22 14:15 Nucleated RBC % (auto) 0 % 10/26/22 14:15 Nucleated RBCs # 0.0 /100WBC 10/26/22 14:15 Sodium 140 mmol/L (136-145) 10/26/22 14:15 Potassium 3.5 mmol/L (3.5-5.1) 10/26/22 14:15 Chloride 103 mmol/L (98-107) 10/26/22 14:15 Carbon Dioxide 23 mmol/L (22-29) 10/26/22 14:15 Anion Gap 17.5 (5-19) 10/26/22 14:15 BUN 18 mg/dL (6-20) 10/26/22 14:15 Creatinine 1.2 mg/dL (0.5-0.9) H 10/26/22 14:15 GFR Calculation 47.2 mL/min (90-130) L 10/26/22 14:15 Glucose 97 mg/dL (65-115) 10/26/22 14:15 Calculated Osmolality 292 mOsm/kg (285-295) 10/26/22 14:15 Calcium 8.6 mg/dL (8.5-10.5) 10/26/22 14:15 Total Bilirubin 0.6 mg/dL (0.15-1.2) 10/26/22 14:15 AST 13 U/L (0-32) 10/26/22 14:15 ALT 10 U/L (0-33) 10/26/22 14:15 Alkaline Phosphatase 90 U/L (35-105) 10/26/22 14:15 Troponin T Baseline 15 ng/L (0-10) H 10/26/22 14:15 Troponin T 120 Minute 20.36 ng/L (0-10) H 10/26/22 16:13 Delta Troponin T 5.36 ABS# (0-10) 10/26/22 16:13 Troponin T Hi Sens 6Hr 17.13 ng/L (0-10) H 10/26/22 20:35 Troponin T Hi Sens 6Hr Delta 2.13 ng/L (0-12) 10/26/22 20:35 Total Protein 6.3 g/dL (6.6-8.7) L 10/26/22 14:15 Albumin 3.9 g/dL (3.5-5.2) 10/26/22 14:15 Globulin 2.4 g/dL (1.3-4.6) 10/26/22 14:15 Urine Color Yellow (Yellow) 10/26/22 15:40 Urine Appearance Clear (CLEAR) 10/26/22 15:40 Urine pH 5 (5-7) 10/26/22 15:40 Ur Specific [place] 1.020 (1.005-1.030) 10/26/22 15:40 Urine Protein Neg (Negative) 10/26/22 15:40 Urine Glucose (UA) Norm (Normal) 10/26/22 15:40 Urine Ketones Negative (Negative) 10/26/22 15:40 Urine Blood Neg (Negative) 10/26/22 15:40 Urine Nitrate Negative (Negative) 10/26/22 15:40 Urine Bilirubin Neg (Negative) 10/26/22 15:40 Urine Urobilinogen Neg mg/dL (Negative) 10/26/22 15:40 Ur Leukocyte Esterase Trace (Negative) H 10/26/22 15:40 Urine RBC Rare /hpf (0-2) 10/26/22 15:40 Urine WBC 0-4 /hpf (0-5) H 10/26/22 15:40 Ur Squamous Epith Cells 0-4 /hpf (0-5) H 10/26/22 15:40 Amorphous Sediment Not Reportable 10/26/22 15:40 Urine Bacteria None /hpf (NONE) 10/26/22 15:40 EKG Data EKG 1: I personally reviewed and interpreted this EKG as follows: Interpretation: Contemporaneous review of her initial EKG reveals a borderline sinus tachycardia 100 bpm. She has normal [place] interval. QRS duration is slightly widened corrected QT interval is normal. She has a leftward axis. She has decreased R waves anteriorly suggestive of possible remote anterior wall MA. EKG is essentially unchanged from prior EKGs within the system. EKG 2: I personally reviewed and interpreted this EKG as follows: Interpretation: Second EKG this visit reveals a ventricular rate of 99 bpm. Consistent with sinus rhythm. She has a normal [place] interval. She has normal QRS duration. She has normal QT corrected QT interval. She has a loss of R wave across the anterior precordial leads however there is no acute ST-T wave changes noted and this tracing is unchanged from prior tracings this visit or in the past. EKG 3: I personally reviewed and interpreted this EKG as follows: Interpretation: Third EKG this visit reveals borderline sinus tachycardia 102 bpm. Normal [place] interval. Normal QRS duration. Corrected TC is normal. She has a leftward axis as previously noted with loss of forces anterior precordial leads as previously noted. No acute changes noted on this EKG compared with prior EKGs. Discharge Plan Discharge Patient Disposition: Home Clinical Impression: Left ureteral calculus, Thoracic back pain, Cardiomyopathy, Anemia, macrocytic Condition: Stable Prescriptions: New Lidoderm 5 % adhesive patch,medicated 1 patch topical Q24H Qty: 30 0RF Rx Instructions: leave on most painful area for up to 12 hrs No Action citalopram [Celexa] 40 mg tablet 40 mg PO QPM zolpidem 10 mg tablet 10 mg PO BEDTIME aspirin [Adult Low Dose Aspirin] 81 mg tablet,delayed release (DR/EC) 162 mg PO QAM Hold Instructions: Resume on 10/19/22. Until after percutaneous tube placed in the left kidney nitroglycerin [Nitrostat] 0.4 mg tablet, sublingual 0.4 mg SUBLINGUAL Q5M PRN (Reason: chest pain) Qty: 25 3RF ferrous sulfate 325 mg (65 mg iron) tablet 325 mg PO QAM sacubitril-valsartan 97-103 mg tablet 1 tab PO BID Qty: 120 3RF Hold Instructions: Resume on 10/09/22. Vitamin B-12 50 mcg Tablet 50 mcg PO QAM montelukast 10 mg tablet 10 mg PO QAM levalbuterol tartrate 45 mcg/actuation Hfa Aerosol Inhaler 2 inh INHALATION Q6H PRN (Reason: Shortness Of Breath) potassium chloride 20 mEq tablet extended release 20 meq PO BID Qty: 10 0RF furosemide [Lasix] 20 mg tablet 20 mg PO BID gabapentin 100 mg Capsule 200 mg PO TID Qty: 180 0RF capsaicin 0.025 % Cream 1 applic topical QID PRN (Reason: Pain) Qty: 60 0RF carvedilol 3.125 mg tablet 3.125 mg PO BID Qty: 60 0RF Rx Instructions: must administer with a meal/food hydrocodone-acetaminophen 5-325 mg tablet 1 tab PO Q6H PRN (Reason: pain) Qty: 14 0RF cephalexin 500 mg capsule 500 mg PO TID 7 Days Qty: 21 0RF Rx Instructions: for 7 day (rx filled 10/23/22) ondansetron 4 mg tablet,disintegrating 4 mg PO Q6H PRN (Reason: nausea and vomiting) Qty: 14 0RF Tylenol Ex Str Rapid Release 500 mg Tablet 1,000 mg PO Q6H PRN (Reason: Pain) naproxen sodium 220 mg Tablet 220 mg PO Q12H PRN (Reason: Pain) omeprazole 20 mg capsule,delayed release(DR/EC) 20 mg PO BID Discharge Orders: Discharge ED (Routine); Ordered 10/26/22 Ordered By: Angel Dixon Referrals: Ferny Peterson MD [Primary Care Provider] - Discharge Diet: Low Salt Discharge Activity: Increase activity as tolerated Patient Instructions: Opioid Safety, Pain Management Activity Restrictions/Additional Instructions: Continue all your usual medications as prescribed. We have also provided a Lidoderm patch to help with some of your upper back pain. Call Dr. Vela to arrange a rescheduled appointment this coming week. You develop any new or worsening symptoms return to this or the nearest emergency department for reevaluation. Coding Level of Care Code ED Log Rider for Wesley Herrera Exam Comprehensive
[2022-10-26] MEDS: lidocaine 5% Patch 1 PATCH TOPICAL (14:08)
[2022-10-26 14:15] VITALS: BP 118/83; PULSE 102; O2SAT 93
[2022-10-26 14:23] LABS: Basophils % 0.7 %; Eosinophils # 0.1 10^3/uL (0.0-0.8); Eosinophils % 1.7 %; Hematocrit 27.9 % (37.0-47.0); Hemoglobin 9.4 g/dL (11.5-15.3); Lymphocytes # 1.7 10^3/uL (0.8-4.8); Lymphocytes % 28.4 %; Mean Corpuscular HGB Conc 33.7 g/dL (30.0-36.0); Mean Corpuscular Hemoglobin 35.6 pg (28.0-34.0); Mean Corpuscular Volume 105.7 fl (81-99); Mean Platelet Volume 10.9 fL (7.4-10.4); Monocytes # 0.3 10^3/uL (0.2-0.9); Neutrophils % 63.9 %; Nucleated Red Blood Cells % 0 %; Platelet Count 136 10^3/cmm (130-400); Red Blood Count 2.64 10^6/uL (4.1-5.3); Red Cell Distribution Width 14.3 % (12.1-15.1)
[2022-10-26 14:46] LABS: Troponin(5th) Baseline 15 ng/L (0-10)
[2022-10-26 14:50] LABS: Alanine Aminotransferase 10 U/L (0-33); Albumin Level 3.9 g/dL (3.5-5.2); Alkaline Phosphatase 90 U/L (35-105); Anion Gap 17.5 (5-19); Aspartate Amino Transferase 13 U/L (0-32); Blood Urea Nitrogen 18 mg/dL (6-20); Calcium 8.6 mg/dL (8.5-10.5); Carbon Dioxide 23 mmol/L (22-29); Chloride 103 mmol/L (98-107); Globulin 2.4 g/dL (1.3-4.6); Glomerular Filtration Rate 47.2 mL/min (90-130); Glucose 97 mg/dL (65-115); Osmolality Calculated 292 mOsm/kg (285-295); Potassium 3.5 mmol/L (3.5-5.1); Sodium 140 mmol/L (136-145); Total Bilirubin 0.6 mg/dL (0.15-1.2); Total Protein 6.3 g/dL (6.6-8.7)
[2022-10-26] MEDS: acetaminophen 500 mg Tablet 1000 MG PO (15:58)
--- NOTE | 2022-10-26 16:08 | ECG_ITS ---
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 Measurements Intervals [place] Rate: 99 P: 66 NM: 149 QRS: -47 QRSD: 137 T: 75 QT: 424 QTc: 546 Interpretive Statements SINUS RHYTHM LEFT AXIS DEVIATION [QRS AXIS < -30] INTRAVENTRICULAR CONDUCTION DELAY [130+ ms QRS DURATION] LEFT VENTRICULAR HYPERTROPHY AND ST-T CHANGE [VOLTAGE CRITERIA PLUS ST/T ABNORMALITY] POSSIBLE ANTERIOR MYOCARDIAL INFARCTION , OF INDETERMINATE AGE [30 ms Q WAVE IN V3/V4, OR R < 0.2 mV IN V4] Compared to ECG 10/26/2022 14:21:37 Sinus tachycardia no longer present ST (T wave) deviation still present Myocardial infarct finding still present Electronically Signed On 10-27-2022 10:10:16 PERSONNEL SECURITY ASSISTANT by Sil Pineda M.D. [id number]
[2022-10-26 16:22] VITALS: BP 118/83; PULSE 98; RESP 18; TEMP 37.3; O2SAT 95
[2022-10-26 16:22] LABS: Add Urine Microscopic? YES; Bilirubin Urine Neg (Negative); Blood Urine Neg (Negative); Glucose Urine UA Norm (Normal); Ketones Urine Negative (Negative); Leukocyte Esterase Urine Trace (Negative); Nitrate Urine Negative (Negative); Protein Urine Neg (Negative); Urine Appearance Clear (CLEAR); Urine Color Yellow (Yellow); Urobilinogen Urine Neg (Negative); pH Urine 5 (5-7)
[2022-10-26 16:27] LABS: RBC Urine RARE /hpf (0-2); Squamous Epithelial Cell Urine 0-4 /hpf (0-5); WBC Urine 0-4 /hpf (0-5)
[2022-10-26 16:28] LABS: Add Urine Culture? No
[2022-10-26 17:07] LABS: Troponin 5 2HR 20.36 ng/L (0-10)
[2022-10-26 17:09] LABS: Troponin 5 2HR Delta 5.36 ABS# (0-10)
[2022-10-26] MEDS: ondansetron 2 mg/ML SDV 2 mL 4 MG IVP (17:18)
[2022-10-26 18:54] VITALS: BP 125/78; PULSE 102; RESP 18; TEMP 37.3; O2SAT 96
--- NOTE | 2022-10-26 19:55 | ECG_ITS ---
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 Measurements Intervals [place] Rate: 102 P: 67 MN: 152 QRS: -45 QRSD: 136 T: 72 QT: 409 QTc: 534 Interpretive Statements SINUS TACHYCARDIA LEFT AXIS DEVIATION [QRS AXIS < -30] INTRAVENTRICULAR CONDUCTION DELAY [130+ ms QRS DURATION] Compared to ECG 10/26/2022 16:08:41 Sinus rhythm no longer present Left ventricular hypertrophy no longer present ST (T wave) deviation no longer present Myocardial infarct finding no longer present Electronically Signed On 10-27-2022 10:08:53 MANAGER OFFICE SERVICES by Sil Pineda M.D. [id number]
[2022-10-26 21:12] LABS: Troponin 5 6HR 17.13 ng/L (0-10)
[2022-10-26 21:17] LABS: Troponin 5 6HR Delta 2.13 ng/L (0-12)
[2022-10-26 22:12] VITALS: BP 118/83; PULSE 101; RESP 18; O2SAT 93
== END 2022-10-26 22:14 | disposition home or self-care (01) ==
PROVIDERS: Emergency Provider Emergency Medicine; PCP Family Medicine
DX: N20.1 Calculus of ureter (principal); M54.6 Pain in thoracic spine; I42.9 Cardiomyopathy, unspecified; D53.9 Nutritional anemia, unspecified; Z79.82 Long term (current) use of aspirin; I11.0 Hypertensive heart disease with heart failure; I50.9 Heart failure, unspecified; Z86.73 Personal history of transient ischemic attack (TIA), and cerebral infarction without residual deficits; Z95.810 Presence of automatic (implantable) cardiac defibrillator; Z87.442 Personal history of urinary calculi; F17.210 Nicotine dependence, cigarettes, uncomplicated
CPT/HCPCS: 71045; 80053; 81001; 84484; 85025; 93005; 96374; 99285; J2405

== ENCOUNTER → 2022-10-28 08:53 | Outpatient (BNVA) | payer MEDICARE, MEDICAID, SELFPAY | PROVIDERS: PCP Family Medicine; Visit Provider Internal Medicine Cardiovascular Disease | DX: I42.8 Other cardiomyopathies (principal); Z95.810 Presence of automatic (implantable) cardiac defibrillator; N20.0 Calculus of kidney; I11.0 Hypertensive heart disease with heart failure; I50.9 Heart failure, unspecified; F17.210 Nicotine dependence, cigarettes, uncomplicated | CPT/HCPCS: 93282; 99214; Q3014 ==

== ENCOUNTER 2022-10-30 13:53 | Observation (INO) | payer MEDICARE, MEDICAID, SELFPAY ==
--- NOTE | 2022-10-30 14:00 | ED_ITS ---
HPI - Abdominal Pain General: Chief Complaint: Abdominal Pain Stated Complaint: ABD PAIN Time Seen by Provider: 10/30/22 14:00 History of Present Illness: Ms. Pulliam is a 52-year-old lady with complex past medical history presenting to the emergency department due to abdominal pain. Reports 3 to 4-day history of initially intermittent however now more constant generalized abdominal pain associated with nausea and constipation. She denies other signs of systemic illness. She reports trying multiple [id number] medications stool softeners and laxatives without significant improvement. Intensity symptoms is moderate. Course has worsened. No other specific changes in health, exacerbating, or alleviating factors identified. Onset (ago): day(s) Pain Consistency: constant Location: Diffuse and Epigastric Radiation: none Exacerbating factors: eating and movement Relieving factors: nothing Associated Symptoms: Reports change in bowel habits, constipation, GI cramping and nausea Review of Systems General: Reports: 10 or more systems reviewed and unremarkable except in HPI and below GI: Reports: nausea, constipation, GI cramping and change in bowel habits PFSH ED PFSH: Medical History CHF (congestive heart failure) Related to nonischemic cardiomyopathy, most recent ejection fraction with with EF 42%. History of recurrent UTIs History of TIA (transient ischemic attack) HTN (hypertension) ICD (implantable cardioverter-defibrillator) in place Mass of right lobe of liver ~3.5 x 4 cm, indeterminant, hypodense, first noted 11/2021 Nonischemic cardiomyopathy Specific etiology unknown, may have been viral or related to uncontrolled hypertension from her recollection Echocardiogram November 2021 with ejection fraction of 42% - 05/17/22 echo EF now 25% Obstructive pyelonephritis (~11/2021) Urolithiasis Multi stone former. Complicated by at least 1 episode of obstructive pyelonephritis. Multiple procedures required to treat Surgical History S/P ureteral stent placement (~11/2021) Status post cholecystectomy Status post placement of cardiac pacemaker Family History Father , AT AGE 77 CAD (coronary artery disease) Cancer lung cancer Mother , AT AGE 60 Cancer OVARIAN Denies family history of Clotting disorder Anesthesia complication Bleeding disorder Social History Smoking and tobacco status: current every day smoker cigarettes Packs smoked per day: 0.5 Years cigarettes smoked: 45 Second hand smoke exposure: Yes Alcohol intake: current Lives independently: Yes Marital status: service: No Current occupational status: disabled Current gender identity: Female Physical Exam Const: COMMON NORMALS: alert GENERAL APPEARANCE: cooperative and well developed HENMT: COMMON NORMALS: normocephalic and atraumatic HEAD & SCALP: normocephalic and atraumatic Eye: COMMON NORMALS: conjunctivae normal CONJUNCTIVA: Yes conjunctivae normal SCLERA: sclerae normal Neck/C-Spine: COMMON NORMALS: supple GENERAL: Yes trachea midline Resp: COMMON NORMALS: clear to auscultation bilaterally EFFORT & INSPECTION: Yes able to speak in complete sentences AUSCULTATION: clear to auscultation bilaterally Cardio: COMMON NORMALS: regular rate and regular rhythm RATE: regular rate RHYTHM: regular rhythm GI: COMMON NORMALS: Soft to palpation PALPATION: Yes Soft to palpation, Yes Tenderness to palpation present (GI) (Generalized), No Guarding due to palpation present (GI) and No Rigid due to palpation Extremity: GENERAL: Yes normal exam except as noted and No edema Neuro: COMMON NORMALS: moves all extremities SENSORIUM/ORIENTATION: Yes alert and No Orientation impaired Psych: COMMON NORMALS: mental status grossly normal and Normal thought process present THOUGHT PROCESS: Normal thought process present Course Vital Signs: Vital signs: Vital Signs Temperature 97.7 F 11/02/22 08:00 Pulse Rate 82 11/02/22 08:00 Respiratory Rate 18 11/02/22 08:00 Blood Pressure 107/70 11/02/22 08:00 Pulse Oximetry 95 11/02/22 08:00 Oxygen Delivery Me thod 11/02/22 08:00 Oxygen Flow Rate 1 11/02/22 10:14 MDM - Abdominal Pain Medical Decision Making 52-year-old lady presenting with abdominal pain. No evidence of acute surgical abdomen and patient is nontoxic in appearance. EKG notable for sinus rhythm with interventricular conduction delay and left axis deviation, similar to prior, no STEMI. Near baseline hematologic and metabolic panel with normal white blood cell count, macrocytic anemia, normal platelet count. Metabolic panel without significant electrolyte derangement, mild increased bicarb however normal anion gap and baseline CKD. CT with liver mass again noted. Cardiomegaly with likely small effusions. Incidental findings were discussed with patient. no acute process to explain symptoms. The patient only had mild improvement with analgesia and antiemetic. She was unable have bowel movement despite medication. Given continued abdominal pain and inability to tolerate p.o. intake I will admit the patient for observation. Additionally the patient has new oxygen requirement with evidence of heart failure. Most likely etiology patient symptoms is constipation as well as acute on chronic heart failure exacerbation with hypoxemia. The results of ED evaluation were discussed with the patient including plan for admission due to requirement for level of care not available if discharged to prevent significant worsening/deterioration. Patient agreeable with plan. Discussed with hospitalist service who was agreeable to admit patient. Medical Records I reviewed the patient's medical records. Lab Data I reviewed the patient's lab results. 11/02/22 01:50 11/02/22 01:50 Labs/Radiology: Radiology Impressions Abdomen/Pelvis CT 10/30/22 14:10 IMPRESSION: 1. 6.4 cm heterogeneously enhancing mass in the right hepatic lobe.In a low-risk patient, further evaluation with non-emergent liver MRI is recommended. In a high-risk patient, further evaluation with non-emergent liver MRI or biopsy is recommended. If biopsy is pursued, core biopsy is preferred over fine-needle aspiration. (Reference: Mary) 2. There are enlarged necrotic lymph nodes in the central mesentery. 3. There are calculi in the proximal left ureter the larger of which measures 4.7 mm with obstructive changes as described above. Percutaneous left renal catheter positioned in the left renal pelvis. 4. Colonic constipation is present. 5. Cardiomegaly with bilateral pleural effusions consistent with congestive heart failure. Ground-glass opacities at the lung bases likely represents pulmonary edema in this patient. COMMENTS: Consistent with the [place] [employer]'s Incidental Findings Committee white paper (J Am Last Radiol 2018): Any incidental renal lesion less than 1 cm or classified as too small to characterize, or any incidental cystic renal lesion characterized as simple-appearing, is likely benign. No follow-up imaging is recommended for these lesions per consensus recommendations based on imaging criteria. REFERENCES: Mary ECHEVERRIA, et al. Management of Incidental Liver Lesions on CT: A White Paper of the ACR Incidental Findings Committee. J Am Last Radiol. 2017;14(11):0389-1683. ADDENDUM: 10/30/22 1512 CRITICAL RESULT: The study was personally discussed on the telephone with Schuyler Solo on 10/30/2022 3:10 PM HEATING ELEMENT REPAIRER. The results were understood and acknowledged. Chest X-Ray 10/30/22 17:01 IMPRESSION: 1. Blunting of the costophrenic angles is suggestive of small pleural effusions.In combination with cardiomegaly findings raise concern for congestive heart failure. 2. Hazy bibasilar opacities likely represent pulmonary edema in this patient. Laboratory Results WBC 5.6 10^3/uL (4.0-10.0) 10/30/22 14:25 RBC 2.64 10^6/uL (4.1-5.3) L 10/30/22 14:25 Hgb 9.4 g/dL (11.5-15.3) L 10/30/22 14:25 Hct 28.8 % (37.0-47.0) L 10/30/22 14:25 MCV 109.1 fl (81-99) H 10/30/22 14:25 MCH 35.6 pg (28.0-34.0) H 10/30/22 14:25 MCHC 32.6 g/dL (30.0-36.0) 10/30/22 14:25 RDW 16.2 % (12.1-15.1) H 10/30/22 14:25 Plt Count 143 10^3/cmm (130-400) 10/30/22 14:25 MPV 11.7 fL (7.4-10.4) H 10/30/22 14:25 Neut % (Auto) 66.7 % 10/30/22 14:25 Lymph % (Auto) 23.3 % 10/30/22 14:25 [place] % (Auto) 6.9 % 10/30/22 14:25 Eos % (Auto) 2.3 % 10/30/22 14:25 Baso % (Auto) 0.4 % 10/30/22 14:25 Neut # (Auto) 3.75 10^3/uL (1.8-7.7) 10/30/22 14:25 Lymph # (Auto) 1.3 10^3/uL (0.8-4.8) 10/30/22 14:25 Fleming # (Auto) 0.4 10^3/uL (0.2-0.9) 10/30/22 14:25 Eos # (Auto) 0.1 10^3/uL (0.0-0.8) 10/30/22 14:25 Baso # (Auto) 0.0 10^3/uL (0.0-0.1) 10/30/22 14:25 Nucleated RBC % (auto) 0 % 10/30/22 14:25 Nucleated RBCs # 0.0 /100WBC 10/30/22 14:25 Sodium 137 mmol/L (136-145) 10/30/22 14:25 Potassium 3.1 mmol/L (3.5-5.1) L 10/30/22 14:25 Chloride 101 mmol/L (98-107) 10/30/22 14:25 Carbon Dioxide 25 mmol/L (22-29) 10/30/22 14:25 Anion Gap 14.1 (5-19) 10/30/22 14:25 BUN 16 mg/dL (6-20) 10/30/22 14:25 Creatinine 1.2 mg/dL (0.5-0.9) H 10/30/22 14:25 GFR Calculation 47.2 mL/min (90-130) L 10/30/22 14:25 Glucose 95 mg/dL (65-115) 10/30/22 14:25 Calculated Osmolality 285 mOsm/kg (285-295) 10/30/22 14:25 Calcium 8.3 mg/dL (8.5-10.5) L 10/30/22 14:25 Total Bilirubin 0.6 mg/dL (0.15-1.2) 10/30/22 14:25 AST 20 U/L (0-32) 10/30/22 14:25 ALT 13 U/L (0-33) 10/30/22 14:25 Alkaline Phosphatase 97 U/L (35-105) 10/30/22 14:25 NT-Pro-B Natriuret Pep 6073 pg/mL (0-125) H 10/30/22 14:25 Total Protein 6.2 g/dL (6.6-8.7) L 10/30/22 14:25 Albumin 3.9 g/dL (3.5-5.2) 10/30/22 14:25 Globulin 2.3 g/dL (1.3-4.6) 10/30/22 14:25 Lipase 26 U/L (13-60) 10/30/22 14:25 Urine Color Straw (Yellow) 10/30/22 15:20 Urine Appearance Sl hazy (CLEAR) A 10/30/22 15:20 Urine pH 8 (5-7) H 10/30/22 15:20 Ur Specific [place] 1.010 (1.005-1.030) 10/30/22 15:20 Urine Protein 3+ (Negative) H 10/30/22 15:20 Urine Glucose (UA) Norm (Normal) 10/30/22 15:20 Urine Ketones Negative (Negative) 10/30/22 15:20 Urine Blood 3+ (Negative) H 10/30/22 15:20 Urine Nitrate Negative (Negative) 10/30/22 15:20 Urine Bilirubin Neg (Negative) 10/30/22 15:20 Prot Sulfosalicylic Acd Positive (Negative) 10/30/22 15:20 Urine Urobilinogen Norm mg/dL (Negative) 10/30/22 15:20 Ur Leukocyte Esterase 2+ (Negative) H 10/30/22 15:20 Urine RBC 10-15 /hpf (0-2) H 10/30/22 15:20 Urine WBC 25-40 /hpf (0-5) H 10/30/22 15:20 Ur Squamous Epith Cells Rare /hpf (0-5) 10/30/22 15:20 Amorphous Sediment Not Reportable 10/30/22 15:20 Urine Bacteria 2+ /hpf (NONE) H 10/30/22 15:20 Discharge Plan Discharge Patient Disposition: Placed in Observation Admit Provider: Rony Benitez Clinical Impression: Acute exacerbation of CHF (congestive heart failure), Pleural effusion, Hypoxemia Discharge Diet: Cardiac Discharge Activity: Resume usual activity Coding Level of Care Code ED Can Coverer for Chg Fwd Exam Comprehensive
[2022-10-30 14:02] VITALS: BP 107/68; PULSE 90; RESP 19; TEMP 37; O2SAT 95; BMI 27.3
--- NOTE | 2022-10-30 14:10 | CTR_ITS ---
PROCEDURE INFORMATION: Exam: CT Abdomen And Pelvis With Contrast Exam date and time: 10/30/2022 2:42 PM Age: 52 years old Clinical indication: Constipation; Prior surgery; Surgery date: 6+ months; Surgery type: Renal stent, gb; Additional info: Abd pain, nausea, constipation TECHNIQUE: Imaging protocol: Computed tomography of the abdomen and pelvis with contrast. Radiation optimization: All CT scans at this facility use at least one of these dose optimization techniques: automated exposure control; mA and/or kV adjustment per patient size (includes targeted exams where dose is matched to clinical indication); or iterative reconstruction. Contrast material: OMNIPAQUE 350; Contrast volume: 100 ml; Contrast route: INTRAVENOUS (IV); COMPARISON: CT abdomen pelvis wo con [id number] 10/23/2022 2:39 AM RADIATION DOSE METRICS: Total DLP (mGy-cm): 583.57 FINDINGS: Tubes, catheters and devices: Distal aspect of the percutaneous catheter is positioned in the left renal pelvis. Mild left perinephric stranding. Mild left hydronephrosis and proximal hydroureter. There are calculi in the proximal left ureter the larger of which measures 4.7 mm by 4.2 cm in the craniocaudad/AP dimensions. Pleural spaces: Small bilateral pleural effusions with adjacent compressive atelectasis. Ground-glass opacities at the lung bases likely represent pulmonary edema. Heart: Cardiomegaly. A small amount of pericardial fluid is visualized. Partially visualized pacemaker lead. Liver: There is a heterogeneously enhancing lesion at the posterior aspect of the right hepatic lobe measuring 4.9 x 6.4 cm in AP/transverse dimensions. Gallbladder and bile ducts: The gallbladder has been removed. Common bile duct is prominent which can be seen status post cholecystectomy. No calcified retained stones are seen. Pancreas: Normal. No ductal dilation. Spleen: The spleen is mildly enlarged measuring 12.9 centimetres. Adrenal glands: Normal. No mass. Kidneys and ureters: There are sub cm cyst in the right kidney with benign features. Follow-up is not necessary. Stomach and bowel: Colonic constipation is present. Appendix: A normal appendix is identified. Intraperitoneal space: There is a small amount of free fluid in the pelvis. Vasculature: There is scattered atherosclerotic plaque in the aorta and iliac arteries. Lymph nodes: There are necrotic lymph nodes left of the IVC the larger of which measures 2.4 by 2.1 cm in AP/transverse dimensions. Urinary bladder: Unremarkable as visualized. Reproductive: Unremarkable as visualized. Bones/joints: Status post ORIF proximal left femur. There are degenerative changes in the visualized spine most prominent across the L5-S1 level. There are degenerative changes across the hip joints. Soft tissues: Unremarkable. CT/CT abdomen pelvis w con* [id number] IMPRESSION: 1. 6.4 cm heterogeneously enhancing mass in the right hepatic lobe.In a low-risk patient, further evaluation with non-emergent liver MRI is recommended. In a high-risk patient, further evaluation with non-emergent liver MRI or biopsy is recommended. If biopsy is pursued, core biopsy is preferred over fine-needle aspiration. (Reference: Mary) 2. There are enlarged necrotic lymph nodes in the central mesentery. 3. There are calculi in the proximal left ureter the larger of which measures 4.7 mm with obstructive changes as described above. Percutaneous left renal catheter positioned in the left renal pelvis. 4. Colonic constipation is present. 5. Cardiomegaly with bilateral pleural effusions consistent with congestive heart failure. Ground-glass opacities at the lung bases likely represents pulmonary edema in this patient. COMMENTS: Consistent with the [place] [employer]'s Incidental Findings Committee white paper (J Am Last Radiol 2018): Any incidental renal lesion less than 1 cm or classified as too small to characterize, or any incidental cystic renal lesion characterized as simple-appearing, is likely benign. No follow-up imaging is recommended for these lesions per consensus recommendations based on imaging criteria. REFERENCES: Mary ECHEVERRIA, et al. Management of Incidental Liver Lesions on CT: A White Paper of the ACR Incidental Findings Committee. J Am Last Radiol. 2017;14(11):6873-4551.
[2022-10-30] MEDS: ondansetron 2 mg/ML SDV 2 mL 4 MG IVP ×2 (14:18→21:18)
[2022-10-30] MEDS: morphine 4 mg/mL SDV 1 mL IVP (14:18)
[2022-10-30 14:23] VITALS: BP 107/68; PULSE 93; RESP 18; O2SAT 91
[2022-10-30 14:39] LABS: Basophils % 0.4 %; Eosinophils # 0.1 10^3/uL (0.0-0.8); Eosinophils % 2.3 %; Hematocrit 28.8 % (37.0-47.0); Hemoglobin 9.4 g/dL (11.5-15.3); Lymphocytes # 1.3 10^3/uL (0.8-4.8); Lymphocytes % 23.3 %; Mean Corpuscular HGB Conc 32.6 g/dL (30.0-36.0); Mean Corpuscular Hemoglobin 35.6 pg (28.0-34.0); Mean Corpuscular Volume 109.1 fl (81-99); Mean Platelet Volume 11.7 fL (7.4-10.4); Monocytes # 0.4 10^3/uL (0.2-0.9); Monocytes % 6.9 %; Neutrophils # 3.75 10^3/uL (1.8-7.7); Neutrophils % 66.7 %; Nucleated Red Blood Cells % 0 %; Platelet Count 143 10^3/cmm (130-400); Red Blood Count 2.64 10^6/uL (4.1-5.3); Red Cell Distribution Width 16.2 % (12.1-15.1); White Blood Count 5.6 10^3/uL (4.0-10.0)
[2022-10-30] MEDS: iohexol 350 mg/mL 500 mL Btl (per mL) IV (14:45)
[2022-10-30 14:53] LABS: Alanine Aminotransferase 13 U/L (0-33); Albumin Level 3.9 g/dL (3.5-5.2); Alkaline Phosphatase 97 U/L (35-105); Anion Gap 14.1 (5-19); Aspartate Amino Transferase 20 U/L (0-32); Blood Urea Nitrogen 16 mg/dL (6-20); Calcium 8.3 mg/dL (8.5-10.5); Carbon Dioxide 25 mmol/L (22-29); Chloride 101 mmol/L (98-107); Globulin 2.3 g/dL (1.3-4.6); Glomerular Filtration Rate 47.2 mL/min (90-130); Glucose 95 mg/dL (65-115); Lipase 26 U/L (13-60); Osmolality Calculated 285 mOsm/kg (285-295); Potassium 3.1 mmol/L (3.5-5.1); Sodium 137 mmol/L (136-145); Total Bilirubin 0.6 mg/dL (0.15-1.2); Total Protein 6.2 g/dL (6.6-8.7)
[2022-10-30] MEDS: potassium chloride ER 20 mEq Tablet 40 MEQ PO (15:12)
[2022-10-30 16:02] LABS: Add Urine Microscopic? YES; Bilirubin Urine Neg (Negative); Blood Urine 3+ (Negative); Glucose Urine UA Norm (Normal); Ketones Urine Negative (Negative); Leukocyte Esterase Urine 2+ (Negative); Nitrate Urine Negative (Negative); Protein Urine 3+ (Negative); Urine Appearance SL Hazy (CLEAR); Urine Color Straw (Yellow); Urobilinogen Urine Norm (Negative); pH Urine 8 (5-7)
[2022-10-30 16:03] LABS: Add Urine Culture? Yes; Bacteria Urine 2+ /hpf; Squamous Epithelial Cell Urine RARE /hpf (0-5); Sulfosalicylic Acid Urine Positive (Negative); WBC Urine 25-40 /hpf (0-5)
[2022-10-30] MEDS: magnesium hydroxide 30 mL UDC PO (16:07)
[2022-10-30] MEDS: lactulose oral liq 20 gm/30 mL UDC PO (16:07)
[2022-10-30] MEDS: polyethylene glycol 3350 Pkt 17 gm PO ×2 (16:07→19:45)
[2022-10-30 16:08] LABS: NT Pro B Type Natriuretic Pept 6073 pg/mL (0-125)
--- NOTE | 2022-10-30 17:01 | XRR_ITS ---
PROCEDURE INFORMATION: Exam: XR Chest Exam date and time: 10/30/2022 5:11 PM Age: 52 years old Clinical indication: Shortness of breath; Prior surgery; Surgery type: Defib; Additional info: Pleural effusions, pulmonary vascular congestion, hypoxia TECHNIQUE: Imaging protocol: Radiologic exam of the chest. Views: 1 view. COMPARISON: CR XR chest 1V portable [id number] 10/26/2022 2:01 PM FINDINGS: Tubes, catheters and devices: Single lead pacemaker device. Lungs: There are hazy bibasilar opacities. Pleural spaces: Blunting of the costophrenic angles is suggestive of small pleural effusions. Heart/Mediastinum: Cardiomegaly. Bones/joints: Unremarkable. XR/XR chest 1V portable [id number] IMPRESSION: 1. Blunting of the costophrenic angles is suggestive of small pleural effusions.In combination with cardiomegaly findings raise concern for congestive heart failure. 2. Hazy bibasilar opacities likely represent pulmonary edema in this patient.
[2022-10-30] MEDS: alum-mag-hydroxide-sime 30 mL UDC PO (17:02)
[2022-10-30] MEDS: dicyclomine 10 mg Capsule PO (17:02)
--- NOTE | 2022-10-30 17:39 | ECG_ITS ---
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 Measurements Intervals [place] Rate: 90 P: 38 [place]: 156 QRS: -41 QRSD: 138 T: 35 QT: 447 QTc: 549 Interpretive Statements SINUS RHYTHM LEFT AXIS DEVIATION [QRS AXIS < -30] INTRAVENTRICULAR CONDUCTION DELAY [130+ ms QRS DURATION] Compared to ECG 10/26/2022 20:11:26 Sinus tachycardia no longer present Electronically Signed On 11-01-2022 7:50:33 DIVING INSTRUCTOR by Pola Ferrera M.D. [email or web address]
--- NOTE | 2022-10-30 17:47 | P.HP_ITS ---
Providers/Chief Complaint Admitting Physician: Rony Benitez Primary Care Provider: Ferny Peterson MD Chief Complaint: ABD PAIN History of Present Illness Pleasant 52-year-old lady among other with 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, status post AICD, following up with cardiology with ongoing arrangements for referral for further assessment in [place] including consideration of placement for cardiac transplantation list, but also with hepatic mass pending further diagnosis with either MRI at the facility that he is able to perform at in presence of pacemaker or core biopsy which would need to be performed likely endoscopically due to location inaccessible to interventional radiology, additionally recently with nephrolithiasis with impacted stones with ureteral stricture status post left nephrostomy tube placed in September in [place] at which point her carvedilol dose was decreased to 3.125 from 6.25. Per cardiology recommendation. Recently also ran out of her Lasix and aspirin and a few other medications. She states that she had filled her Lasix yesterday and had resumed them. Cardiology had also increased her carvedilol dose back up to 6.25. She tells me previously she had not had CHF symptoms before that medication was decreased. She states she never gets peripheral edema. She presented for evaluation today to ER due to abdominal pain and constipation, inability to have bowel movement in several days, but is also found to be hypoxic down to 84% lowest, with saturations fluctuating. Not normally on oxygen. CT abdomen pelvis with new small pleural effusions, but also groundglass opacities at lung bases likely representing pulmonary edema. Small amount of pericardial fluid visualized. Chest x-ray without focal pneumonia with similar findings. She would want attempted resuscitation in case of cardiopulmonary arrest. Review of Systems Const: Denies: fever(s), chills, body aches or malaise Eyes: Denies: change in vision, eye discomfort or eye redness ENMT: Denies: throat pain, oral sores or ear or mastoid pain Card: Reports: dyspnea on exertion and orthopnea; Denies: chest pain, edema, swelling of feet/ankles or pre-syncope Resp: Reports: non-productive cough (Mild); Denies: dyspnea, productive cough, change in phlegm color or hemoptysis GI: Reports: abdominal pain and constipation; Denies: nausea, vomiting, diarrhea, hematochezia or melena : Denies: flank pain, urinary frequency or hematuria Musc: Denies: back pain, joint swelling or joint redness Skin/Breast: Denies: rash or new lesions Neuro: Denies: headache(s), numbness in extremities, weakness in extremities, dizziness, confusion or seizure-like activity Endo: Denies: polyuria or polydipsia Cedric/Lymph: Denies: easy bleeding or tender lymph nodes All/Imm: Denies: urticaria or tongue swelling Medications/Allergies Home Medications Medication Instructions Recorded Confirmed Last Taken Type citalopram 40 mg tablet (Celexa) 40 mg PO QPM 01/31/20 10/30/22 10/23/22 History zolpidem 10 mg tablet 10 mg PO BEDTIME 01/31/20 10/30/22 10/29/22 History aspirin 81 mg tablet,delayed 162 mg PO QAM 01/20/21 10/30/22 10/29/22 History release (Adult Low Dose Aspirin) nitroglycerin 0.4 mg sublingual 0.4 mg sublingual Q5M PRN chest 01/20/21 10/30/22 Unknown Rx tablet (Nitrostat) pain #25 tabs cyanocobalamin (vitamin B-12) 50 50 mcg PO QAM 11/30/21 10/30/22 10/29/22 History mcg tablet (Vitamin B-12) levalbuterol tartrate 45 2 inh inhalation Q6H PRN Shortness 11/30/21 10/30/22 10/04/22 History mcg/actuation aerosol inhaler Of Breath montelukast 10 mg tablet 10 mg PO QAM 11/30/21 10/30/22 10/29/22 History sacubitril 97 mg-valsartan 103 mg 1 tab PO BID #120 tabs 09/14/22 10/30/22 10/29/22 Rx tablet capsaicin 0.025 % topical cream 1 applic topical QID PRN Pain #60 10/02/22 10/30/22 Unknown Rx grams gabapentin 100 mg capsule 200 mg PO TID #180 caps 10/02/22 10/30/22 10/29/22 Rx hydrocodone 5 mg-acetaminophen 325 1 tab PO Q6H PRN pain #14 tabs 10/23/22 10/30/22 Unknown Rx mg tablet ondansetron 4 mg disintegrating 4 mg PO Q6H PRN nausea and 10/23/22 10/30/22 Unknown Rx tablet vomiting #14 tabs potassium chloride 20 mEq 20 meq PO BID #10 tabs 10/25/22 10/30/22 10/29/22 Rx tablet,extended release acetaminophen 500 mg tablet 1,000 mg PO Q6H PRN Pain 10/26/22 10/30/22 Unknown History lidocaine 5 % topical patch 1 patch topical Q24H #30 ea 10/26/22 10/30/22 Unknown Rx (Lidoderm) naproxen sodium 220 mg tablet 220 mg PO Q12H PRN Pain 10/26/22 10/30/22 Unknown History omeprazole 20 mg capsule,delayed 20 mg PO BID 10/26/22 10/30/22 10/29/22 History release carvedilol 6.25 mg tablet 6.25 mg PO BID #180 tabs 10/28/22 10/30/22 10/29/22 Rx furosemide 20 mg tablet (Lasix) 20 mg PO BID #180 tabs 10/28/22 10/30/22 10/29/22 Rx Allergies Allergy/AdvReac Type Severity Reaction Status Date / Time egg Allergy unknown Verified 10/26/22 15:27 PFSH Acute PFSH: Medical History CHF (congestive heart failure) Related to nonischemic cardiomyopathy, most recent ejection fraction with with EF 42%. History of recurrent UTIs History of TIA (transient ischemic attack) HTN (hypertension) ICD (implantable cardioverter-defibrillator) in place Mass of right lobe of liver ~3.5 x 4 cm, indeterminant, hypodense, first noted 11/2021 Nonischemic cardiomyopathy Specific etiology unknown, may have been viral or related to uncontrolled hypertension from her recollection Echocardiogram November 2021 with ejection fraction of 42% - 05/17/22 echo EF now 25% Obstructive pyelonephritis (~11/2021) Urolithiasis Multi stone former. Complicated by at least 1 episode of obstructive pyelonephritis. Multiple procedures required to treat Surgical History S/P ureteral stent placement (~11/2021) Status post cholecystectomy Status post placement of cardiac pacemaker Family History Father , AT AGE 77 CAD (coronary artery disease) Cancer lung cancer Mother , AT AGE 60 Cancer OVARIAN Denies family history of Clotting disorder Anesthesia complication Bleeding disorder Social History Smoking and tobacco status: current every day smoker cigarettes Packs smoked per day: 0.5 Years cigarettes smoked: 45 Second hand smoke exposure: Yes Alcohol intake: current Lives independently: Yes Marital status: service: No Current occupational status: disabled Current gender identity: Female Vitals/I&O/Wt Last Vital Signs Temp 98.6 F 10/30/22 14:02 Pulse 93 10/30/22 14:23 Resp 18 10/30/22 14:23 BP 107/68 10/30/22 14:23 Pulse Ox 91 10/30/22 14:23 O2 Del Method 10/30/22 14:02 Weight last 48 hrs Weight 74.389 kg Physical Exam Const: COMMON NORMALS: patient oriented x3 and alert GENERAL APPEARANCE: cooperative ORIENTATION/CONSCIOUSNESS: Yes awake HENMT: COMMON NORMALS: oropharynx normal Neck/C-Spine: COMMON NORMALS: no JVD Resp: COMMON NORMALS: normal respiratory effort AUSCULTATION: crackles Laterality: bilateral (R>L) Cardio: COMMON NORMALS: no JVD, regular rhythm, S1 normal heart sound present, S2 normal heart sound present and No murmurs present (Cardio) RHYTHM: regular rhythm HEART SOUNDS: S1 normal heart sound present and S2 normal heart sound present GI: COMMON NORMALS: Normal to inspection, nondistended, normoactive bowel sounds present and Soft to palpation PALPATION: Yes Soft to palpation and Yes Tenderness to palpation present (GI) Details: RUQ : OTHER: L perc nephrostomy Extremity: COMMON NORMALS: no joint enlargement and no pedal edema Neuro: COMMON NORMALS: patient oriented x3 and moves all extremities SENSORIUM/ORIENTATION: Yes alert Skin: COMMON NORMALS: no rashes or lesions noted GENERAL SKIN EXAM: no rashes or lesions noted Data 10/30/22 14:25 10/30/22 14:25 A&P Assessment and plan (1) Acute exacerbation of CHF (congestive heart failure): Acute systolic and diastolic congestive heart failure exacerbation. With new hypoxia. With dyspnea on exertion, orthopnea. Some occasional chest tightness. No chest pain. Complete troponin EKG series to exclude cardiac ischemia. Will underlying EF 25%. Assess limited TTE for reassessment of any worsening LVEF, valves. Lasix IV twice daily, monitor I&O and weights. Monitor renal function. She did recently round of Lasix, but states now did fill the prescription yesterday. Will need home O2 eval at discharge. Would benefit from sleep study as appears to have worse hypoxia when she sleeps. Arrangements underway for follow-up with [facility] including with consideration for cardiac transplantation with or without bridge therapy. However, discussed with her needs to follow-up for further diagnosis of liver mass as that may be an exclusion criteria for transplantation. She states that that has somewhat followed by the [facility] with her recent other issues including ureterolithiasis, and her heart. States that she will seek further diagnostic evaluation. (2) Pleural effusion: Small bilateral pleural effusions related to CHF. Monitor oxygenation, follow- up imaging in case of worsening. (3) Hypoxemia: New oxygen requirement saturation down to as low as 84%, although some was transient, may be related to exertion, speaking, sleeping. Denies ever having had a sleep study, states her partner has never told her that she snores. Treat acute CHF exacerbation as above. Home O2 eval at discharge. Would benefit from sleep study. Groundglass opacities likely secondary to pulmonary edema. However, dry cough. Will also check COVID PCR. (4) Liver mass: Needs further evaluation which I discussed with her cannot be performed at this facility. Unable to perform MRI here due to ICD presents, mass cannot be reached by IR here due to location. Needs either MRI at facility that can perform them in the presence of ICD, or biopsy likely performed with endoscopy by GI. (5) Constipation: MiraLAX, Dulcolax suppository. (6) UTI (urinary tract infection): Complicated UTI with urolithiasis, left percutaneous nephrostomy tube. Ciprofloxacin. Follow-up urine culture. (7) Abdominal pain: Persistent abdominal pain. Tenderness somewhat better on the right side but still there. (8) CKD (chronic kidney disease): At baseline Plan HTN Nonischemic cardiomyopathy with low EF ICD Smoking addiction Attestations Medical Necessity Statement*: Place in observation for assessment management of acute decompensated cyst and diastolic CHF with new hypoxia with underlying severe nonischemic cardiomyopathy EF 25% Coding Level of Care Code Acute Code for Chg Fwd Exam Comprehensive Diagnoses Acute exacerbation of CHF (congestive heart failure) I50.9 Pleural effusion J90 Hypoxemia R09.02 Liver mass R16.0 Constipation K59.00 UTI (urinary tract infection) N39.0 Abdominal pain R10.9 CKD (chronic kidney disease) N18.9
[2022-10-30 18:20] VITALS: BP 122/83; PULSE 104; PULSE 95; RESP 24; TEMP 36.3; O2SAT 98
--- NOTE | 2022-10-30 18:40 | PC.NURSE ---
182 Patient recieved to floor to rm 259 bed 2 from ER
[2022-10-30] MEDS: FUROsemide 10 mg/mL SDV 4mL 40 MG IVP (19:18)
[2022-10-30] MEDS: ciprofloxacin 400 MG/200 ML PREMIX 200 MG IV (19:42)
[2022-10-30] MEDS: carvedilol 6.25 mg Tablet PO (19:43)
[2022-10-30] MEDS: bisacodyl 10 mg Supp PR (19:43)
[2022-10-30] MEDS: heparin 5,000 unit/mL INJ 1 mL 5000 UNIT SUBCUT (19:46)
[2022-10-30] MEDS: HYDROcodone-acetaminophen 5-325 mg Tablet 1 TAB PO (19:49)
[2022-10-30 20:00] VITALS: BP 114/78; PULSE 99; RESP 15; TEMP 36.7; O2SAT 95
[2022-10-30 20:02] VITALS: PULSE 77; RESP 18; O2SAT 96
--- NOTE | 2022-10-30 20:41 | ECG_ITS ---
[facility] Test Date: 2022-10-30 Pat Name: Elena Pulliam Department: Room: 259 Gender: Female Paper Roller: : 1970 Requested By: Rony Benitez Order Number: [id number] Arlette MD: Pola Ferrera M.D. Measurements Intervals Winter Rate: 101 P: 36 ID: [id number] QRS: -36 QRSD: 132 T: 85 QT: 395 QTc: 513 Interpretive Statements SINUS TACHYCARDIA LEFT AXIS DEVIATION [QRS AXIS < -30] INTRAVENTRICULAR CONDUCTION DELAY [130+ ms QRS DURATION] Compared to ECG 10/30/2022 17:39:49 Sinus rhythm no longer present Electronically Signed On 11-01-2022 7:43:43 PHYSICAL SCIENCES PROFESSOR by Pola Ferrera M.D. [id number]
[2022-10-30] MEDS: gabapentin 100 mg Capsule 200 MG PO (21:07)
[2022-10-30] MEDS: HYDROcodone-acetaminophen 5-325 mg Tablet 0.5 TAB PO (21:07)
[2022-10-30] MEDS: zolpidem 5 mg Tablet PO (21:07)
[2022-10-30] MEDS: citalopram 20 mg Tablet 40 MG PO (21:26)
[2022-10-30 21:29] LABS: Troponin(5th) Baseline 22 ng/L (0-10)
[2022-10-30 21:47] VITALS: PULSE 93
[2022-10-30 22:32] LABS: Troponin 5 2HR 21.73 ng/L (0-10)
[2022-10-30 22:37] LABS: Troponin 5 2HR Delta -0.27 ABS# (0-10)
[2022-10-30 23:22] LABS: Adenovirus Not Detected (NOT DETECT); Chlamydia Pneumoniae Not Detected (NOT DETECT); Coronavirus 229E,HKU1,NL63,OC4 Not Detected (NOT DETECT); Human Metapneumovirus Not Detected (NOT DETECT); Human Rhinovirus/Enterovirus Not Detected (NOT DETECT); Influenza A Not Detected (NOT DETECT); Influenza A H1 Not Detected (NOT DETECT); Influenza A H1-2009 Not Detected (NOT DETECT); Influenza A H3 Not Detected (NOT DETECT); Influenza B Not Detected (NOT DETECT); Mycoplasma Pneumoniae Not Detected (NOT DETECT); Parainfluenza Virus Type 1 Not Detected (NOT DETECT); Parainfluenza Virus Type 2 Not Detected (NOT DETECT); Parainfluenza Virus Type 3 Not Detected (NOT DETECT); Parainfluenza Virus Type 4 Not Detected (NOT DETECT); Respiratory Syncytial Virus A Not Detected (NOT DETECT); Respiratory Syncytial Virus B Not Detected (NOT DETECT); SARS-COV-2 Not Detected (NOT DETECT)
[2022-10-31] VITALS (9 sets, daily range): BP systolic 97–114; BP diastolic 62–77; PULSE 80–93; RESP 15–19; TEMP 36.7–37; O2SAT 90–98
[2022-10-31] MEDS: HYDROcodone-acetaminophen 5-325 mg Tablet 1 TAB PO ×3 (01:39→19:55)
[2022-10-31 01:51] LABS: Basophils # 0.1 10^3/uL (0.0-0.1); Basophils % 0.8 %; Eosinophils # 0.1 10^3/uL (0.0-0.8); Hematocrit 29.4 % (37.0-47.0); Hemoglobin 9.3 g/dL (11.5-15.3); Lymphocytes # 1.6 10^3/uL (0.8-4.8); Lymphocytes % 26.7 %; Mean Corpuscular HGB Conc 31.6 g/dL (30.0-36.0); Mean Corpuscular Hemoglobin 35.2 pg (28.0-34.0); Mean Corpuscular Volume 111.4 fl (81-99); Mean Platelet Volume 11.8 fL (7.4-10.4); Monocytes # 0.5 10^3/uL (0.2-0.9); Monocytes % 7.8 %; Neutrophils # 3.72 10^3/uL (1.8-7.7); Nucleated Red Blood Cells % 0 %; Platelet Count 143 10^3/cmm (130-400); Red Blood Count 2.64 10^6/uL (4.1-5.3); Red Cell Distribution Width 16.3 % (12.1-15.1); White Blood Count 5.9 10^3/uL (4.0-10.0)
--- NOTE | 2022-10-31 02:02 | ECG_ITS ---
[facility] Test Date: 2022-10-31 Pat Name: Elena Pulliam Department: Room: 259 Gender: Female Cigarette Maker: : 1970 Requested By: Rony Benitez Order Number: [id number] Arlette MD: Pola Ferrera M.D. Measurements Intervals Kathleen Rate: 88 P: 27 CO: 140 QRS: -41 QRSD: 137 T: 69 QT: 449 QTc: 544 Interpretive Statements SINUS RHYTHM LEFT AXIS DEVIATION [QRS AXIS < -30] INTRAVENTRICULAR CONDUCTION DELAY [130+ ms QRS DURATION] MINIMAL VOLTAGE CRITERIA FOR LVH, CONSIDER NORMAL VARIANT [MEETS CRITERIA IN ONE OF: R(aVL), S(V1), R(V5), R(V5/V6)+S(V1)] Compared to ECG 10/30/2022 20:41:25 Sinus tachycardia no longer present Electronically Signed On 11-01-2022 7:49:34 STRIPPER PRINTED CIRCUIT BOARDS by Pola Ferrera M.D. [id number]
[2022-10-31 02:14] LABS: Troponin 5 6HR 24.47 ng/L (0-10)
[2022-10-31 02:34] LABS: Troponin 5 6HR Delta 2.47 ng/L (0-12)
[2022-10-31 03:02] LABS: Alanine Aminotransferase 13 U/L (0-33); Albumin Level 3.9 g/dL (3.5-5.2); Alkaline Phosphatase 96 U/L (35-105); Anion Gap 15.1 (5-19); Aspartate Amino Transferase 17 U/L (0-32); Blood Urea Nitrogen 14 mg/dL (6-20); Calcium 8.4 mg/dL (8.5-10.5); Carbon Dioxide 26 mmol/L (22-29); Chloride 99 mmol/L (98-107); Globulin 2.3 g/dL (1.3-4.6); Glomerular Filtration Rate 52.2 mL/min (90-130); Glucose 94 mg/dL (65-115); Magnesium 1.8 mg/dL (1.7-2.3); Osmolality Calculated 284 mOsm/kg (285-295); Potassium 3.1 mmol/L (3.5-5.1); Sodium 137 mmol/L (136-145); Total Bilirubin 0.7 mg/dL (0.15-1.2); Total Protein 6.2 g/dL (6.6-8.7)
[2022-10-31] MEDS: FUROsemide 10 mg/mL SDV 4mL 40 MG IVP ×2 (03:55→15:29)
[2022-10-31] MEDS: heparin 5,000 unit/mL INJ 1 mL 5000 UNIT SUBCUT ×2 (05:38→17:29)
[2022-10-31] MEDS: potassium chloride ER 20 mEq Tablet 40 MEQ PO (05:39)
[2022-10-31] MEDS: montelukast sodium 10 mg Tablet PO (05:39)
[2022-10-31] MEDS: aspirin 81 mg EC Tablet 162 MG PO (05:39)
[2022-10-31] MEDS: ondansetron 2 mg/ML SDV 2 mL 4 MG IVP (05:42)
--- NOTE | 2022-10-31 06:00 | USCV_ITS ---
Elena Pulliam Age: 52 Gender: F : 1970 Exam Date: 10/31/2022 09:35 Ordering Phys: Rony Benitez MD Technologist: Zay Dumont Exam Location: [facility] [place] Indication: EF BP: 118 / 90 HR: 87 Rhythm: Sinus Technical Quality: Adequate MEASUREMENTS (Male / Female) Normal Values 2D ECHO LV Diastolic Diameter PLAX 7.3 cm 4.2 - 5.9 / 3.9 - 5.3 cm LV Systolic Diameter PLAX 6.4 cm IVS Diastolic Thickness 0.6 cm 0.6 - 1.0 / 0.6 - 0.9 cm IVS Systolic Thickness 1.1 cm LVPW Diastolic Thickness 1.0 cm 0.6 - 1.0 / 0.6 - 0.9 cm LVPW Systolic Thickness 1.4 cm LVOT Diameter 2.0 cm LV Ejection Fraction 2D Teich 25.4 % LV Ejection Fraction MOD 2C 30.3 % LV Ejection Fraction 2C AL 29.0 % LA Diameter 4.0 cm LA Width 4.0 cm LA Height 5.8 cm RA Width 4.0 cm RA Height 5.4 cm Aorta at Sinotubular Diameter 2.3 cm IVC Diameter 1.7 cm M-MODE Aortic Annulus Diameter 2.9 cm LA Ao Ratio MM 1.5 MV E Point Septal Separation 2.2 cm DOPPLER Right Atrial Pressure 3.0 mmHg FINDINGS Left Ventricle Right Ventricle Right Atrium Left Atrium Mitral Valve Aortic Valve Tricuspid Valve Pulmonic Valve Pericardium Aorta IVC CONCLUSIONS This is a limited echocardiogram performed to assess LV systolic function. LV systolic function is severely reduced with EF of 20 to 25%. Severe global hypokinesis is seen. Compared to prior echocardiogram from 05/2022, no significant change in EF is seen Pola Ferrera MD (Electronically Signed) Final Date: 01 November 2022 05:49 S
[2022-10-31 06:51] LABS: Glucose Point of Care 113 mg/dL (70-110)
[2022-10-31] MEDS: carvedilol 6.25 mg Tablet PO ×2 (10:55→17:28)
[2022-10-31] MEDS: gabapentin 100 mg Capsule 200 MG PO ×3 (10:55→19:55)
[2022-10-31] MEDS: ciprofloxacin 400 MG/200 ML PREMIX 200 MG IV ×2 (11:11→19:55)
--- NOTE | 2022-10-31 11:55 | PC.CHAP ---
Pastoral Care Encounter/Spiritual Assessment Type of Contact [] Declined tiler's assistant visit [] Patient/Family/Request visit [] Outpatient visit [] Follow-up visit [] Physician referral [] Code/Alert [x] Routine visit [] Staff referral [] Actively dying [] Patient sleeping [x] Family support [] [] Out of room [] Palliative care [] [] Receiving care in room [] Pre-surgical visit [] Trauma [] Long length of stay [] ICU visit [] Other: Relational/Emotional Strength []x Patient feels connected with others/family/visitors/staff [] Distress [] Loneliness/isolation [] Abandonment Spirituality of Patient [x] Person of Capri [x Attends Pentecostal of their Capri [x] Believes in Prayer [x] Reads Bible or Congregation materials [] There are Spiritual issues to be addressed Cook Seafood Interventions [x] Prayer [x] Active listening [x Non-anxious presence [x] Spiritual/emotional support [] Crisis/trauma care [] Spiritual counseling [] Bereavement support [] Provided bereavement packet [] Provided Bible/devotional materials [] Provided toy/stuffed animal, coloring book to patient or family member [] Provided Communion [] Anointing/[place] [] Salvation x[] Completed spiritual assessment [] Other: Impact on Illness or Injury [] Angry [] Fearful [] Anxious [] Often cries [] Exhaustion [] Unable to work [] Unable to attend congregation [] Unable to walk/stand [] Unable to read [] Unable to drive [] Unable to eat/drink [] Unable to sleep [] Unable to be with family [] Patient intubated [] Other: Summary Time spent with patient 10 min
[2022-10-31] MEDS: citalopram 20 mg Tablet 40 MG PO (17:28)
--- NOTE | 2022-10-31 17:38 | P.PN_ITS ---
Subjective Subjective: Patient was seen this morning, she was unable to sleep throughout the night she is watching TV, her shortness of breath has improved Vitals/I&O/Wt Last Vital Signs Temp 98.0 F 10/31/22 15:52 Pulse 82 10/31/22 15:52 Resp 16 10/31/22 15:52 BP 97/62 10/31/22 15:52 Pulse Ox 97 10/31/22 15:52 O2 Del Method 10/31/22 15:52 O2 Flow Rate 2 10/31/22 08:00 10/31/22 10/31/22 10/31/22 06:59 14:59 22:59 Intake Total 240 / 920 560 / 560 Output Total 1600 / 1900 Balance -1360 / -980 560 / 560 Weight last 48 hrs Weight 75.325 kg Weight 75.92 kg Weight 74.389 kg Physical Exam Const: COMMON NORMALS: no acute distress and patient oriented x3 Resp: COMMON NORMALS: normal respiratory effort, No retractions, No use of accessory muscles and clear to auscultation bilaterally AUSCULTATION: clear to auscultation bilaterally Cardio: COMMON NORMALS: regular rate, regular rhythm, S1 normal heart sound present and S2 normal heart sound present RATE: regular rate RHYTHM: regular rhythm HEART SOUNDS: S1 normal heart sound present and S2 normal heart sound present GI: COMMON NORMALS: Normal to inspection, nondistended, normoactive bowel sounds present and non-tender Extremity: COMMON NORMALS: no pedal edema Neuro: COMMON NORMALS: patient oriented x3 Psych: COMMON NORMALS: mental status grossly normal Data 10/31/22 01:33 10/31/22 01:33 A&P Assessment and plan (1) Acute exacerbation of CHF (congestive heart failure): (2) Pleural effusion: (3) Hypoxemia: (4) Liver mass: (5) Constipation: (6) UTI (urinary tract infection): (7) Abdominal pain: (8) CKD (chronic kidney disease): Plan Acute systolic and diastolic CHF exacerbation -Continue Lasix 40 IV twice daily -Monitor creatinine, monitor potassium -Monitor urine output -Currently on Entresto Nonischemic cardiomyopathy as above Status post ICD History of hypertension UTI, continue ciprofloxacin History of left percutaneous nephrostomy tube, for urethral stricture, also follow-up with [facility] History of liver mass needs to follow-up with oncology as outpatient HTN Nonischemic cardiomyopathy with low EF ICD Smoking addiction Plan for today, monitor urine output, monitor creatinine, monitor diuresis therapy follow cardiac echo hopefully can discharge in the next 24 hours Attestations Medical Necessity Statement*: Patient requires a position for acute on chronic systolic diastolic CHF exacerbation Coding Level of Care Code Acute Code for Chg Fwd Diagnoses Acute exacerbation of CHF (congestive heart failure) I50.9 Pleural effusion J90 Hypoxemia R09.02 Liver mass R16.0 Constipation K59.00 UTI (urinary tract infection) N39.0 Abdominal pain R10.9 CKD (chronic kidney disease) N18.9
[2022-10-31] MEDS: zolpidem 5 mg Tablet PO (19:55)
[2022-11-01] VITALS (7 sets, daily range): BP systolic 101–110; BP diastolic 64–85; PULSE 81–93; RESP 14–16; TEMP 36.4–36.9; O2SAT 92–98
[2022-11-01] MEDS: FUROsemide 10 mg/mL SDV 4mL 40 MG IVP ×2 (03:24→17:54)
[2022-11-01] MEDS: HYDROcodone-acetaminophen 5-325 mg Tablet 1 TAB PO ×2 (03:28→19:59)
--- NOTE | 2022-11-01 03:41 | PC.NURSE ---
Patient has left nephrostomy tube with bag to left leg. Patient has been emptying it herself. Patient educated that urine output needs to be measured.
--- NOTE | 2022-11-01 05:29 | PC.NURSE ---
Patient took oxygen out of nose. Oxygen saturation 80 percent. Patient placed back on one liter nasal cannula and oxygen saturation is now 95 percent. Patient educated to leave oxygen in nose.
[2022-11-01] MEDS: heparin 5,000 unit/mL INJ 1 mL 5000 UNIT SUBCUT ×2 (05:31→17:54)
[2022-11-01] MEDS: montelukast sodium 10 mg Tablet PO (05:31)
[2022-11-01] MEDS: aspirin 81 mg EC Tablet 162 MG PO (05:31)
[2022-11-01 06:29] LABS: Basophils # 0.1 10^3/uL (0.0-0.1); Basophils % 0.9 %; Eosinophils # 0.1 10^3/uL (0.0-0.8); Eosinophils % 2.4 %; Hematocrit 31.1 % (37.0-47.0); Hemoglobin 9.8 g/dL (11.5-15.3); Lymphocytes # 1.6 10^3/uL (0.8-4.8); Lymphocytes % 27.3 %; Mean Corpuscular HGB Conc 31.5 g/dL (30.0-36.0); Mean Corpuscular Hemoglobin 35.3 pg (28.0-34.0); Mean Corpuscular Volume 111.9 fl (81-99); Monocytes # 0.5 10^3/uL (0.2-0.9); Monocytes % 8.2 %; Neutrophils # 3.51 10^3/uL (1.8-7.7); Neutrophils % 60.9 %; Nucleated Red Blood Cells % 0 %; Platelet Count 147 10^3/cmm (130-400); Red Blood Count 2.78 10^6/uL (4.1-5.3); Red Cell Distribution Width 15.8 % (12.1-15.1); White Blood Count 5.8 10^3/uL (4.0-10.0)
[2022-11-01 09:15] LABS: Alanine Aminotransferase 14 U/L (0-33); Albumin Level 3.6 g/dL (3.5-5.2); Alkaline Phosphatase 110 U/L (35-105); Anion Gap 15.3 (5-19); Aspartate Amino Transferase 20 U/L (0-32); Blood Urea Nitrogen 17 mg/dL (6-20); Calcium 9.2 mg/dL (8.5-10.5); Carbon Dioxide 30 mmol/L (22-29); Chloride 96 mmol/L (98-107); Globulin 2.7 g/dL (1.3-4.6); Glomerular Filtration Rate 39.5 mL/min (90-130); Glucose 124 mg/dL (65-115); Magnesium 2.2 mg/dL (1.7-2.3); Osmolality Calculated 289 mOsm/kg (285-295); Potassium 3.3 mmol/L (3.5-5.1); Sodium 138 mmol/L (136-145); Total Bilirubin 0.7 mg/dL (0.15-1.2); Total Protein 6.3 g/dL (6.6-8.7)
[2022-11-01] MEDS: gabapentin 100 mg Capsule 200 MG PO ×3 (09:51→19:59)
[2022-11-01] MEDS: carvedilol 6.25 mg Tablet PO ×2 (09:51→17:54)
--- NOTE | 2022-11-01 13:19 | PM.PN ---
Subjective Subjective: Patient tells me that she still feels short of breath with exertion but overall she is feeling better no nausea, no vomiting, no chest pain, no fevers Vitals/I&O/Wt Last Vital Signs Temp 97.6 F 11/01/22 11:27 Pulse 84 11/01/22 11:27 Resp 16 11/01/22 11:27 BP 108/85 11/01/22 11:27 Pulse Ox 92 11/01/22 11:27 O2 Del Method 11/01/22 11:27 O2 Flow Rate 0.5 11/01/22 03:16 10/31/22 11/01/22 11/01/22 22:59 06:59 14:59 Intake Total 320 / 880 240 / 240 Balance 320 / 880 240 / 240 Weight last 48 hrs Weight 74.559 kg Weight 75.325 kg Weight 75.92 kg Weight 74.389 kg Physical Exam Const: COMMON NORMALS: no acute distress and patient oriented x3 Neck/C-Spine: COMMON NORMALS: no JVD Resp: COMMON NORMALS: normal respiratory effort, No retractions and No use of accessory muscles AUSCULTATION: crackles Cardio: COMMON NORMALS: no JVD, regular rate, regular rhythm, S1 normal heart sound present and S2 normal heart sound present RATE: regular rate RHYTHM: regular rhythm HEART SOUNDS: S1 normal heart sound present and S2 normal heart sound present GI: COMMON NORMALS: Normal to inspection, nondistended, normoactive bowel sounds present and non-tender Extremity: COMMON NORMALS: no pedal edema Neuro: COMMON NORMALS: patient oriented x3 Psych: COMMON NORMALS: mental status grossly normal Data 11/01/22 06:00 11/01/22 07:58 Micro: Microbiology 10/30/22 15:20 Urine Culture - Final Urine,Clean Catch A&P Assessment and plan (1) Acute exacerbation of CHF (congestive heart failure): (2) Pleural effusion: (3) Hypoxemia: (4) Liver mass: (5) Constipation: (6) UTI (urinary tract infection): (7) Abdominal pain: (8) CKD (chronic kidney disease): Plan Acute systolic and diastolic CHF exacerbation -Continue Lasix 40 IV twice daily -Monitor creatinine, monitor potassium -Monitor urine output -Currently on Entresto Cardiac echocardiogram -?This is a limited echocardiogram performed to assess LV systolic ?function. ?LV systolic function is severely reduced with EF of 20 to 25%.? ?Severe global hypokinesis is seen. ?Compared to prior echocardiogram from 05/2022, no significant ?change in EF is seen Nonischemic cardiomyopathy as above Status post ICD History of hypertension UTI, continue ciprofloxacin History of left percutaneous nephrostomy tube, for urethral stricture, also follow-up with [facility] History of liver mass needs to follow-up with oncology as outpatient HTN Nonischemic cardiomyopathy with low EF ICD Smoking addiction Plan for today, monitor urine output, monitor creatinine, monitor diuresis therapy follow up out of bed, hopefully can discharge tomorrow Attestations Medical Necessity Statement*: Patient requires hospitalization, for CHF exacerbation requiring diuresis Coding Level of Care Code Acute Code for Chg Fwd Diagnoses Acute exacerbation of CHF (congestive heart failure) I50.9 Pleural effusion J90 Hypoxemia R09.02 Liver mass R16.0 Constipation K59.00 UTI (urinary tract infection) N39.0 Abdominal pain R10.9 CKD (chronic kidney disease) N18.9
[2022-11-01] MEDS: potassium chloride ER 20 mEq Tablet 40 MEQ PO (14:13)
[2022-11-01] MEDS: citalopram 20 mg Tablet 40 MG PO (17:54)
[2022-11-01] MEDS: polyethylene glycol 3350 Pkt 17 gm PO (18:28)
--- NOTE | 2022-11-01 19:51 | PC.NURSE ---
Bedside report completed with DAYTON Posadas.
[2022-11-01] MEDS: zolpidem 5 mg Tablet PO (19:59)
--- NOTE | 2022-11-01 20:04 | PC.NURSE ---
Patient's oxygen saturation currently 96 percent on room air. Patient states it seems to only drop when I sleep. Will monitor.
[2022-11-02] VITALS: BP 106/66; PULSE 83; RESP 15; TEMP 36.7; O2SAT 94
--- NOTE | 2022-11-02 01:15 | PC.NURSE ---
Patient's oxygen saturation 87 at this time. Patient placed back on one liter nasal cannula. Patient states it drops every time I get comfortable.
[2022-11-02] MEDS: HYDROcodone-acetaminophen 5-325 mg Tablet 1 TAB PO (01:23)
[2022-11-02 02:36] LABS: Basophils # 0.1 10^3/uL (0.0-0.1); Eosinophils # 0.2 10^3/uL (0.0-0.8); Eosinophils % 2.7 %; Hematocrit 31.5 % (37.0-47.0); Hemoglobin 9.8 g/dL (11.5-15.3); Lymphocytes % 33.4 %; Mean Corpuscular HGB Conc 31.1 g/dL (30.0-36.0); Mean Corpuscular Hemoglobin 35.4 pg (28.0-34.0); Mean Corpuscular Volume 113.7 fl (81-99); Mean Platelet Volume 12.2 fL (7.4-10.4); Monocytes # 0.5 10^3/uL (0.2-0.9); Monocytes % 8.1 %; Neutrophils # 3.21 10^3/uL (1.8-7.7); Neutrophils % 54.5 %; Nucleated Red Blood Cells % 0 %; Platelet Count 154 10^3/cmm (130-400); Red Blood Count 2.77 10^6/uL (4.1-5.3); Red Cell Distribution Width 15.6 % (12.1-15.1); White Blood Count 5.9 10^3/uL (4.0-10.0)
[2022-11-02 03:07] LABS: Alanine Aminotransferase 12 U/L (0-33); Albumin Level 3.9 g/dL (3.5-5.2); Alkaline Phosphatase 103 U/L (35-105); Anion Gap 15.6 (5-19); Aspartate Amino Transferase 15 U/L (0-32); Blood Urea Nitrogen 25 mg/dL (6-20); Carbon Dioxide 32 mmol/L (22-29); Chloride 96 mmol/L (98-107); Globulin 2.5 g/dL (1.3-4.6); Glomerular Filtration Rate 39.5 mL/min (90-130); Glucose 102 mg/dL (65-115); Magnesium 2.3 mg/dL (1.7-2.3); Osmolality Calculated 295 mOsm/kg (285-295); Potassium 3.6 mmol/L (3.5-5.1); Sodium 140 mmol/L (136-145); Total Bilirubin 0.5 mg/dL (0.15-1.2); Total Protein 6.4 g/dL (6.6-8.7)
[2022-11-02 04:00] VITALS: BP 111/73; PULSE 87; RESP 16; TEMP 36.7; O2SAT 90
[2022-11-02] MEDS: aspirin 81 mg EC Tablet 162 MG PO (04:48)
[2022-11-02] MEDS: montelukast sodium 10 mg Tablet PO (04:49)
[2022-11-02] MEDS: heparin 5,000 unit/mL INJ 1 mL 5000 UNIT SUBCUT (04:49)
[2022-11-02] MEDS: FUROsemide 10 mg/mL SDV 4mL 40 MG IVP (04:49)
[2022-11-02 05:23] VITALS: PULSE 86
[2022-11-02 08:00] VITALS: BP 107/70; PULSE 82; RESP 18; TEMP 36.5; O2SAT 95
[2022-11-02] MEDS: potassium chloride ER 20 mEq Tablet 40 MEQ PO (08:34)
[2022-11-02] MEDS: carvedilol 6.25 mg Tablet PO (08:34)
[2022-11-02] MEDS: gabapentin 100 mg Capsule 200 MG PO (08:34)
--- NOTE | 2022-11-02 08:57 | P.DS_ITS ---
Discharge Providers Date of Admission: 10/30/22 17:01 Date of Discharge: November 02, 2022 Attending Provider at Admission: Rony Benitez Attending Provider at Discharge: Shay Parks MD Primary Care Provider: Ferny Peterson MD Diagnoses at Discharge Discharge Diagnosis (1) Acute exacerbation of CHF (congestive heart failure): Status: Acute (2) Pleural effusion: Status: Acute (3) Hypoxemia: Status: Acute (4) Liver mass: Status: Acute (5) Constipation: Status: Acute (6) UTI (urinary tract infection): Status: Inactive (7) Abdominal pain: Status: Acute (8) CKD (chronic kidney disease): Status: Acute Reason for Visit Reason for Visit: ABD PAIN Hospital Course Hospital Course Pleasant 52-year-old lady among other with 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, status post AICD, following up with cardiology with ongoing arrangements for referral for further assessment in [place] including consideration of placement for cardiac transplantation list, but also with hepatic mass pending further diagnosis with either MRI at the facility that he is able to perform at in presence of pacemaker or core biopsy which would need to be performed likely endoscopically due to location inaccessible to interventional radiology, additionally recently with nephrolithiasis with impacted stones with ureteral stricture status post left nephrostomy tube placed in September in [place] at which point her carvedilol dose was decreased to 3.125 from 6.25.? Per cardiology recommendation.? Recently also ran out of her Lasix and aspirin and a few other medications.? She states that she had filled her Lasix yesterday and had resumed them.? Cardiology had also increased her carvedilol dose back up to 6.25.? She tells me previously she had not had CHF symptoms before that medication was decreased.? She states she never gets peripheral edema. She presented for evaluation today to ER due to abdominal pain and constipation, inability to have bowel movement in several days, but is also found to be hypoxic down to 84% lowest, with saturations fluctuating.? Not normally on oxygen.? CT abdomen pelvis with new small pleural effusions, but also groundglass opacities at lung bases likely representing pulmonary edema.? Small amount of pericardial fluid visualized.? Chest x-ray without focal pneumonia with similar findings. Patient was admitted to [facility] for acute on chronic systolic diastolic CHF exacerbation, received Lasix therapy, repeat echocardiogram showed EF of 20 to 25% with severe global hypokinesis, compared to prior echocardiogram no significant change in EF. Overall she clinically improved, shortness of breath improved, creatinine discharge 1.4. I will discharge on Lasix 40 twice daily with potassium placement therapy with repeat follow-up with primary care earlier on this week. Recheck kidney function in the next few days. Follow-up with cardiology in 1 to 3 days. If she were to have recurrent chest pain or shortness of breath go to the emergency room. For her liver mass I will refer her to oncology. Physical Exam Const: COMMON NORMALS: no acute distress and patient oriented x3 Neck/C-Spine: COMMON NORMALS: no JVD Resp: COMMON NORMALS: normal respiratory effort, No retractions, No use of accessory muscles and clear to auscultation bilaterally AUSCULTATION: clear to auscultation bilaterally Cardio: COMMON NORMALS: no JVD, regular rate, regular rhythm, S1 normal heart sound present and S2 normal heart sound present RATE: regular rate RHYTHM: regular rhythm HEART SOUNDS: S1 normal heart sound present and S2 normal heart sound present GI: COMMON NORMALS: Normal to inspection, nondistended, normoactive bowel sounds present and non-tender Extremity: COMMON NORMALS: no pedal edema Neuro: COMMON NORMALS: patient oriented x3 Psych: COMMON NORMALS: mental status grossly normal Discharge Data Studies Completed and Pending Completed Studies During Hospitalization Category Date Time Status CT abdomen pelvis w con* [id number] Stat Cat Scan 10/30/22 14:10 Completed XR chest 1V portable [id number] Stat Exams 10/30/22 17:01 Completed CV. echo limited [id number] Routine Ultrasound 10/31/22 06:00 Completed Radiology Impressions Abdomen/Pelvis CT 10/30/22 14:10 IMPRESSION: 1. 6.4 cm heterogeneously enhancing mass in the right hepatic lobe.In a low-risk patient, further evaluation with non-emergent liver MRI is recommended. In a high-risk patient, further evaluation with non-emergent liver MRI or biopsy is recommended. If biopsy is pursued, core biopsy is preferred over fine-needle aspiration. (Reference: Mary) 2. There are enlarged necrotic lymph nodes in the central mesentery. 3. There are calculi in the proximal left ureter the larger of which measures 4.7 mm with obstructive changes as described above. Percutaneous left renal catheter positioned in the left renal pelvis. 4. Colonic constipation is present. 5. Cardiomegaly with bilateral pleural effusions consistent with congestive heart failure. Ground-glass opacities at the lung bases likely represents pulmonary edema in this patient. COMMENTS: Consistent with the [employer]'s Incidental Findings Committee white paper (J Am Last Radiol 2018): Any incidental renal lesion less than 1 cm or classified as too small to characterize, or any incidental cystic renal lesion characterized as simple-appearing, is likely benign. No follow-up imaging is recommended for these lesions per consensus recommendations based on imaging criteria. REFERENCES: Mary ECHEVERRIA, et al. Management of Incidental Liver Lesions on CT: A White Paper of the ACR Incidental Findings Committee. J Am Last Radiol. 2017;14(11):0617-0687. ADDENDUM: 10/30/22 1512 CRITICAL RESULT: The study was personally discussed on the telephone with Schuyler Solo on 10/30/2022 3:10 PM PUBLIC AFFA[employer] SPECIALIST. The results were understood and acknowledged. Chest X-Ray 10/30/22 17:01 IMPRESSION: 1. Blunting of the costophrenic angles is suggestive of small pleural effusions.In combination with cardiomegaly findings raise concern for congestive heart failure. 2. Hazy bibasilar opacities likely represent pulmonary edema in this patient. Laboratory Results WBC 5.9 10^3/uL (4.0-10.0) 11/02/22 01:50 RBC 2.77 10^6/uL (4.1-5.3) L 11/02/22 01:50 Hgb 9.8 g/dL (11.5-15.3) L 11/02/22 01:50 Hct 31.5 % (37.0-47.0) L 11/02/22 01:50 MCV 113.7 fl (81-99) H 11/02/22 01:50 MCH 35.4 pg (28.0-34.0) H 11/02/22 01:50 MCHC 31.1 g/dL (30.0-36.0) 11/02/22 01:50 RDW 15.6 % (12.1-15.1) H 11/02/22 01:50 Plt Count 154 10^3/cmm (130-400) 11/02/22 01:50 MPV 12.2 fL (7.4-10.4) H 11/02/22 01:50 Neut % (Auto) 54.5 % 11/02/22 01:50 Lymph % (Auto) 33.4 % 11/02/22 01:50 Schuyler % (Auto) 8.1 % 11/02/22 01:50 Eos % (Auto) 2.7 % 11/02/22 01:50 Baso % (Auto) 1.0 % 11/02/22 01:50 Neut # (Auto) 3.21 10^3/uL (1.8-7.7) 11/02/22 01:50 Lymph # (Auto) 2.0 10^3/uL (0.8-4.8) 11/02/22 01:50 Schuyler # (Auto) 0.5 10^3/uL (0.2-0.9) 11/02/22 01:50 Eos # (Auto) 0.2 10^3/uL (0.0-0.8) 11/02/22 01:50 Baso # (Auto) 0.1 10^3/uL (0.0-0.1) 11/02/22 01:50 Nucleated RBC % (auto) 0 % 11/02/22 01:50 Nucleated RBCs # 0.0 /100WBC 11/02/22 01:50 Sodium 140 mmol/L (136-145) 11/02/22 01:50 Potassium 3.6 mmol/L (3.5-5.1) 11/02/22 01:50 Chloride 96 mmol/L (98-107) L 11/02/22 01:50 Carbon Dioxide 32 mmol/L (22-29) H 11/02/22 01:50 Anion Gap 15.6 (5-19) 11/02/22 01:50 BUN 25 mg/dL (6-20) H 11/02/22 01:50 Creatinine 1.4 mg/dL (0.5-0.9) H 11/02/22 01:50 GFR Calculation 39.5 mL/min (90-130) L 11/02/22 01:50 Glucose 102 mg/dL (65-115) 11/02/22 01:50 POC Glucose 113 mg/dL (70-110) H 10/31/22 06:43 Calculated Osmolality 295 mOsm/kg (285-295) 11/02/22 01:50 Calcium 9.0 mg/dL (8.5-10.5) 11/02/22 01:50 Magnesium 2.3 mg/dL (1.7-2.3) 11/02/22 01:50 Total Bilirubin 0.5 mg/dL (0.15-1.2) 11/02/22 01:50 AST 15 U/L (0-32) 11/02/22 01:50 ALT 12 U/L (0-33) 11/02/22 01:50 Alkaline Phosphatase 103 U/L (35-105) 11/02/22 01:50 Troponin T Baseline 22 ng/L (0-10) H 10/30/22 20:14 Troponin T 120 Minute 21.73 ng/L (0-10) H 10/30/22 21:55 Delta Troponin T -0.27 ABS# (0-10) L 10/30/22 21:55 Troponin T Hi Sens 6Hr 24.47 ng/L (0-10) H 10/31/22 01:33 Troponin T Hi Sens 6Hr Delta 2.47 ng/L (0-12) 10/31/22 01:33 NT-Pro-B Natriuret Pep 6073 pg/mL (0-125) H 10/30/22 14:25 Total Protein 6.4 g/dL (6.6-8.7) L 11/02/22 01:50 Albumin 3.9 g/dL (3.5-5.2) 11/02/22 01:50 Globulin 2.5 g/dL (1.3-4.6) 11/02/22 01:50 Lipase 26 U/L (13-60) 10/30/22 14:25 Urine Color Straw (Yellow) 10/30/22 15:20 Urine Appearance Sl hazy (CLEAR) A 10/30/22 15:20 Urine pH 8 (5-7) H 10/30/22 15:20 Ur Specific [place] 1.010 (1.005-1.030) 10/30/22 15:20 Urine Protein 3+ (Negative) H 10/30/22 15:20 Urine Glucose (UA) Norm (Normal) 10/30/22 15:20 Urine Ketones Negative (Negative) 10/30/22 15:20 Urine Blood 3+ (Negative) H 10/30/22 15:20 Urine Nitrate Negative (Negative) 10/30/22 15:20 Urine Bilirubin Neg (Negative) 10/30/22 15:20 Prot Sulfosalicylic Acd Positive (Negative) 10/30/22 15:20 Urine Urobilinogen Norm mg/dL (Negative) 10/30/22 15:20 Ur Leukocyte Esterase 2+ (Negative) H 10/30/22 15:20 Urine RBC 10-15 /hpf (0-2) H 10/30/22 15:20 Urine WBC 25-40 /hpf (0-5) H 10/30/22 15:20 Ur Squamous Epith Cells Rare /hpf (0-5) 10/30/22 15:20 Amorphous Sediment Not Reportable 10/30/22 15:20 Urine Bacteria 2+ /hpf (NONE) H 10/30/22 15:20 Coronavirus 229E (PCR) Not detected (NOT DETECT) 10/30/22 21:25 SARS-CoV-2 (PCR) Not detected (NOT DETECT) 10/30/22 21:25 Vitals Last Vital Signs Temp 98.0 F 11/02/22 04:00 Pulse 86 11/02/22 05:23 Resp 16 11/02/22 04:00 BP 111/73 11/02/22 04:00 Pulse Ox 90 11/02/22 04:00 O2 Del Method 11/02/22 04:00 O2 Flow Rate 1 11/02/22 00:00 Discharge Plan Discharge Patient Disposition: Home Condition: Stable Prescriptions: New furosemide [Lasix] 40 mg tablet 40 mg PO BIDWM 30 Days Qty: 30 0RF Continued citalopram [Celexa] 40 mg tablet 40 mg PO QPM zolpidem 10 mg tablet 10 mg PO BEDTIME aspirin [Adult Low Dose Aspirin] 81 mg tablet,delayed release (DR/EC) 162 mg PO QAM Hold Instructions: Resume on 10/19/22. Until after percutaneous tube placed in the left kidney nitroglycerin [Nitrostat] 0.4 mg tablet, sublingual 0.4 mg SUBLINGUAL Q5M PRN (Reason: chest pain) Qty: 25 3RF carvedilol 6.25 mg tablet 6.25 mg PO BID Qty: 180 2RF Rx Instructions: must administer with a meal/food sacubitril-valsartan 97-103 mg tablet 1 tab PO BID Qty: 120 3RF Hold Instructions: Resume on 10/09/22. Vitamin B-12 50 mcg Tablet 50 mcg PO QAM montelukast 10 mg tablet 10 mg PO QAM levalbuterol tartrate 45 mcg/actuation Hfa Aerosol Inhaler 2 inh INHALATION Q6H PRN (Reason: Shortness Of Breath) gabapentin 100 mg Capsule 200 mg PO TID Qty: 180 0RF capsaicin 0.025 % Cream 1 applic topical QID PRN (Reason: Pain) Qty: 60 0RF hydrocodone-acetaminophen 5-325 mg tablet 1 tab PO Q6H PRN (Reason: pain) Qty: 14 0RF ondansetron 4 mg tablet,disintegrating 4 mg PO Q6H PRN (Reason: nausea and vomiting) Qty: 14 0RF acetaminophen [Tylenol Ex Str Rapid Release] 500 mg Tablet 1,000 mg PO Q6H PRN (Reason: Pain) omeprazole 20 mg capsule,delayed release(DR/EC) 20 mg PO BID lidocaine [Lidoderm] 5 % adhesive patch,medicated 1 patch topical Q24H Qty: 30 0RF Rx Instructions: leave on most painful area for up to 12 hrs potassium chloride 20 mEq tablet extended release 20 meq PO BID 30 Days Qty: 60 0RF Discontinued furosemide [Lasix] 20 mg tablet 20 mg PO BID Qty: 180 1RF naproxen sodium 220 mg Tablet 220 mg PO Q12H PRN (Reason: Pain) Discharge Orders: Discharge Order (Routine); Ordered 11/02/22 Ordered By: Shay Parks Referrals: Ferny Peterson MD [Primary Care Provider] - 1-3 days Sil Pineda MD [Physician] - 1-3 days Discharge Diet: Cardiac Discharge Activity: Resume usual activity Patient Instructions: Opioid Safety Activity Restrictions/Additional Instructions: - Take Lasix 40 mg twice daily with potassium replacement, have your primary care provider recheck your kidney function in the next few days -See primary care provider in the next few days -See cardiology in 1 to 3 days -Recheck kidney function in the next few days -If you have any worsening shortness of breath go to the emergency room Discharge Attestations Time Spent in Discharge Care*: less than 30 min Quality Metrics Clinical Quality Measures [ No reported AMI, CVA or VTE this stay] Coding Level of Care Code Acute Chg FW DC note Diagnoses Acute exacerbation of CHF (congestive heart failure) I50.9 Pleural effusion J90 Hypoxemia R09.02 Liver mass R16.0 Constipation K59.00 UTI (urinary tract infection) N39.0 Abdominal pain R10.9 CKD (chronic kidney disease) N18.9
== END 2022-11-02 11:19 | disposition home or self-care (01) ==
LOC: ER 17:01 → MEDSURG 17:35
PROVIDERS: Admitting Provider Internal Medicine; Emergency Provider Emergency Medicine; PCP Family Medicine; Visit Provider Family Medicine
DX: J90 Pleural effusion, not elsewhere classified (principal); R09.02 Hypoxemia; R16.0 Hepatomegaly, not elsewhere classified; K59.00 Constipation, unspecified; N39.0 Urinary tract infection, site not specified; R10.9 Unspecified abdominal pain; I13.0 Hypertensive heart and chronic kidney disease with heart failure and stage 1 through stage 4 chronic kidney disease, or unspecified chronic kidney disease; N18.9 Chronic kidney disease, unspecified; I50.40 Unspecified combined systolic (congestive) and diastolic (congestive) heart failure; G72.9 Myopathy, unspecified; Z95.0 Presence of cardiac pacemaker; I42.8 Other cardiomyopathies; Z79.82 Long term (current) use of aspirin; F17.210 Nicotine dependence, cigarettes, uncomplicated; Z86.73 Personal history of transient ischemic attack (TIA), and cerebral infarction without residual deficits; Z95.5 Presence of coronary angioplasty implant and graft
CPT/HCPCS: 36415; 36416; 71045; 74177; 80053; 81001; 82962; 83690; 83735; 83880; 84484; 85025; 87086; 87635; 93005; 93308; 96372; 96374; 96375; 96376; 99285; G0378; J0744; J1644; J1940; J2270; J2405; Q9967

== ENCOUNTER 2022-11-10 06:51 | Emergency (ER) | payer MEDICARE, MEDICAID, SELFPAY ==
[2022-11-10 06:52] VITALS: BP 124/90; PULSE 99; RESP 20; TEMP 36.8; O2SAT 98; BMI 26.6
--- NOTE | 2022-11-10 07:03 | XR_ITS ---
WS: [id number] Portable AP upright chest, 11/10/2022 Clinical Data: dyspnea/cough Comparison: Portable chest, 10/30/2022 Findings: No nodules, masses or effusions are seen. The heart is enlarged. The pulmonary vascularity is not increased. No pneumonia or pneumothorax is seen. There is a single lead cardiac pacemaker unch anged. Monitor leads are on the chest wall. XR/XR chest 1V portable [id number] Impression: Cardiomegaly.
--- NOTE | 2022-11-10 07:05 | W.ED.ABDPA2 ---
HPI - Abdominal Pain General: Chief Complaint: Abdominal Pain Stated Complaint: ABD PAIN Time Seen by Provider: 11/10/22 06:54 Source: patient Mode of arrival: EMS History of Present Illness: 52-year-old female presents emergency room with complaint of abdominal discomfort nausea and vomiting. Localizes pain to the right lower quadrant. She states she has had the discomfort for a week she denies any fevers sweats or chills she was hospitalized here recently for exacerbation of congestive heart failure. She has known cardiomyopathy they are actually looking at getting her placed on the transplant list she has an ICD in place. She denies any chest pain. She does have an obstructing kidney stone has a urostomy tube in place on the left. She has previously had a cholecystectomy uterus is intact. She not noticed any change in output in her urostomy tube no diarrhea denies hematochezia melena hematemesis or coffee-ground emesis MD elicited complaint: abdominal pain Onset (ago): week(s) (1) Pain Consistency: intermittent Location: RLQ Severity: mild Quality: cramping Radiation: none Exacerbating factors: nothing Relieving factors: nothing Associated Symptoms: Reports bloating, GI cramping, nausea, poor appetite and vomiting; Denies anorexia, belching, change in bowel habits, change in stool character, chills, coffee ground emesis, constipation, diarrhea, dyspepsia, dysuria, excessive flatus, fever(s), heartburn, hematochezia, hematuria, hematemesis, fecal incontinence, loose stools, melena and syncope Review of Systems Const: Denies: fever(s) or chills ENMT: Denies: throat pain, ear or mastoid pain, nasal discharge or nasal congestion Card: Denies: syncope Resp: Denies: dyspnea, productive cough or non-productive cough GI: Reports: abdominal pain, nausea, vomiting, bloating and GI cramping; Denies: hematemesis, coffee ground emesis, heartburn, diarrhea, constipation, belching, excessive flatus, fecal incontinence, change in bowel habits, change in stool character, hematochezia or melena : Denies: flank pain, dysuria or hematuria Musc: Denies: neck pain or back pain Skin/Breast: Denies: rash or pruritus Neuro: Reports: headache(s) PFSH ED PFSH: Medical History CHF (congestive heart failure) Related to nonischemic cardiomyopathy, most recent ejection fraction with with EF 42%. History of recurrent UTIs History of TIA (transient ischemic attack) HTN (hypertension) ICD (implantable cardioverter-defibrillator) in place Mass of right lobe of liver ~3.5 x 4 cm, indeterminant, hypodense, first noted 11/2021 Nonischemic cardiomyopathy Specific etiology unknown, may have been viral or related to uncontrolled hypertension from her recollection Echocardiogram November 2021 with ejection fraction of 42% - 05/17/22 echo EF now 25% Obstructive pyelonephritis (~11/2021) Urolithiasis Multi stone former. Complicated by at least 1 episode of obstructive pyelonephritis. Multiple procedures required to treat Surgical History S/P ureteral stent placement (~11/2021) Status post cholecystectomy Status post placement of cardiac pacemaker Family History Father , AT AGE 77 CAD (coronary artery disease) Cancer lung cancer Mother , AT AGE 60 Cancer OVARIAN Denies family history of Clotting disorder Anesthesia complication Bleeding disorder Social History Smoking and tobacco status: current every day smoker cigarettes Packs smoked per day: 0.5 Years cigarettes smoked: 45 Second hand smoke exposure: Yes Alcohol intake: current Lives independently: Yes Marital status: service: No Current occupational status: disabled Current gender identity: Female Physical Exam Const: COMMON NORMALS: no acute distress GENERAL APPEARANCE: cooperative and comfortable ORIENTATION/CONSCIOUSNESS: Yes awake, Yes oriented to person, Yes oriented to place and Yes oriented to time HENMT: COMMON NORMALS: normocephalic, atraumatic and hearing grossly normal bilaterally HEAD & SCALP: normocephalic and atraumatic Resp: COMMON NORMALS: normal respiratory effort, No retractions, No use of accessory muscles and clear to auscultation bilaterally AUSCULTATION: clear to auscultation bilaterally Cardio: COMMON NORMALS: regular rate, regular rhythm and No murmurs present (Cardio) RATE: regular rate RHYTHM: regular rhythm GI: COMMON NORMALS: No hepatosplenomegaly present AUSCULTATION: Yes normoactive bowel sounds PALPATION: Yes Tenderness to palpation present (GI) (Without guarding or rebound.) Details: RLQ, No Guarding due to palpation present (GI) and Yes No hepatosplenomegaly present Extremity: COMMON NORMALS: normal to inspection, capillary refill normal, no clubbing, cyanosis or edema, no calf tenderness and no pedal edema Neuro: SENSORIUM/ORIENTATION: Yes oriented to person, Yes oriented to place and Yes oriented to time Skin: COMMON NORMALS: no rashes or lesions noted GENERAL SKIN EXAM: no rashes or lesions noted Course Vital Signs: Vital signs: Vital Signs Temperature 98.3 F 11/10/22 06:52 Pulse Rate 84 11/10/22 09:53 Respiratory Rate 16 11/10/22 11:19 Blood Pressure 123/86 11/10/22 09:53 Pulse Oximetry 98 11/10/22 11:19 Oxygen Delivery Me thod 11/10/22 09:53 MDM - Abdominal Pain Medical Decision Making CT shows a new 3 mm right ureter nephrolithiasis with no significant hydronephrosis. We will control her pain her white count is not elevated but she does have a bladder infection will start on Cipro. Reviewed her previous urine cultures no significant resistance. Cipro x7 days hydrocodone for pain strain urine and follow-up with Dr. Austin next week. Medical Records I reviewed the patient's medical records. Lab Data I reviewed the patient's lab results. 11/10/22 07:37 11/10/22 07:37 Labs/Radiology: Radiology Impressions Chest X-Ray 11/10/22 07:03 Impression: Cardiomegaly. Abdomen/Pelvis CT 11/10/22 07:19 IMPRESSION: 1. New 3 mm calcification in the mid RIGHT ureter with no significant hydronephrosis. 2. Unchanged position of the LEFT percutaneous nephrostomy tube with small calcifications reidentified in the mid ureter. 3. No significant change in the solid mass extending posterior in the RIGHT lobe the liver. Better visualized and described on the prior CT performed with contrast. Nonurgent MRI was recommended and should be obtained. Suspicious for neoplasm. 4. Lymphadenopathy to the RIGHT of the celiac axis. Abnormal single or cluster of lymph nodes. Also described on 10/30/2022. 5. Resolved small bilateral pleural effusions and bilateral lower lobe pneumonitis since 10/30/2022. 6. Constipation. 7. Resolved free fluid in the pelvis since the prior study. Laboratory Results WBC 7.7 10^3/uL (4.0-10.0) 11/10/22 07:37 RBC 3.46 10^6/uL (4.1-5.3) L 11/10/22 07:37 Hgb 12.3 g/dL (11.5-15.3) 11/10/22 07:37 Hct 36.8 % (37.0-47.0) L 11/10/22 07:37 MCV 106.4 fl (81-99) H 11/10/22 07:37 MCH 35.5 pg (28.0-34.0) H 11/10/22 07:37 MCHC 33.4 g/dL (30.0-36.0) 11/10/22 07:37 RDW 14.2 % (12.1-15.1) 11/10/22 07:37 Plt Count 237 10^3/cmm (130-400) 11/10/22 07:37 MPV 10.3 fL (7.4-10.4) 11/10/22 07:37 Neut % (Auto) 66.6 % 11/10/22 07:37 Lymph % (Auto) 23.7 % 11/10/22 07:37 [place] % (Auto) 7.0 % 11/10/22 07:37 Eos % (Auto) 1.2 % 11/10/22 07:37 Baso % (Auto) 0.9 % 11/10/22 07:37 Neut # (Auto) 5.13 10^3/uL (1.8-7.7) 11/10/22 07:37 Lymph # (Auto) 1.8 10^3/uL (0.8-4.8) 11/10/22 07:37 [place] # (Auto) 0.5 10^3/uL (0.2-0.9) 11/10/22 07:37 Eos # (Auto) 0.1 10^3/uL (0.0-0.8) 11/10/22 07:37 Baso # (Auto) 0.1 10^3/uL (0.0-0.1) 11/10/22 07:37 Nucleated RBC % (auto) 0 % 11/10/22 07:37 Nucleated RBCs # 0.0 /100WBC 11/10/22 07:37 Sodium 139 mmol/L (136-145) 11/10/22 07:37 Potassium 3.1 mmol/L (3.5-5.1) L 11/10/22 07:37 Chloride 97 mmol/L (98-107) L 11/10/22 07:37 Carbon Dioxide 23 mmol/L (22-29) 11/10/22 07:37 Anion Gap 22.1 (5-19) H 11/10/22 07:37 BUN 19 mg/dL (6-20) 11/10/22 07:37 Creatinine 1.2 mg/dL (0.5-0.9) H 11/10/22 07:37 GFR Calculation 47.2 mL/min (90-130) L 11/10/22 07:37 Glucose 117 mg/dL (65-115) H 11/10/22 07:37 Calculated Osmolality 291 mOsm/kg (285-295) 11/10/22 07:37 Calcium 9.7 mg/dL (8.5-10.5) 11/10/22 07:37 Total Bilirubin 0.8 mg/dL (0.15-1.2) 11/10/22 07:37 AST 24 U/L (0-32) 11/10/22 07:37 ALT 12 U/L (0-33) 11/10/22 07:37 Alkaline Phosphatase 110 U/L (35-105) H 11/10/22 07:37 Total Protein 7.3 g/dL (6.6-8.7) 11/10/22 07:37 Albumin 4.4 g/dL (3.5-5.2) 11/10/22 07:37 Globulin 2.9 g/dL (1.3-4.6) 11/10/22 07:37 Lipase 29 U/L (13-60) 11/10/22 07:37 Urine Color Yellow (Yellow) 11/10/22 09:52 Urine Appearance Hazy (CLEAR) A 11/10/22 09:52 Urine pH 6.5 (5-7) 11/10/22 09:52 Ur Specific [place] 1.015 (1.005-1.030) 11/10/22 09:52 Urine Protein Neg (Negative) 11/10/22 09:52 Urine Glucose (UA) Norm (Normal) 11/10/22 09:52 Urine Ketones Negative (Negative) 11/10/22 09:52 Urine Blood Neg (Negative) 11/10/22 09:52 Urine Nitrate Negative (Negative) 11/10/22 09:52 Urine Bilirubin Neg (Negative) 11/10/22 09:52 Urine Urobilinogen Neg mg/dL (Negative) 11/10/22 09:52 Ur Leukocyte Esterase 2+ (Negative) H 11/10/22 09:52 Urine RBC 5-10 /hpf (0-2) H 11/10/22 09:52 Urine WBC 15-25 /hpf (0-5) H 11/10/22 09:52 Ur Squamous Epith Cells 5-10 /hpf (0-5) H 11/10/22 09:52 Amorphous Sediment 1+ /hpf 11/10/22 09:52 Urine Bacteria Trace /hpf (NONE) 11/10/22 09:52 Discharge Plan Discharge Patient Disposition: Home Clinical Impression: Calculus of kidney, Cystitis Condition: Stable Prescriptions: New hydrocodone-acetaminophen 5-325 mg tablet 1 tab PO Q6H PRN (Reason: pain) Qty: 25 0RF Cipro 500 mg tablet 500 mg PO BID Qty: 20 0RF No Action citalopram [Celexa] 40 mg tablet 40 mg PO QPM zolpidem 10 mg tablet 10 mg PO BEDTIME aspirin [Adult Low Dose Aspirin] 81 mg tablet,delayed release (DR/EC) 162 mg PO QAM Hold Instructions: Resume on 10/19/22. Until after percutaneous tube placed in the left kidney carvedilol 6.25 mg tablet 6.25 mg PO BID Qty: 180 2RF Rx Instructions: must administer with a meal/food sacubitril-valsartan 97-103 mg tablet 1 tab PO BID Qty: 120 3RF Hold Instructions: Resume on 10/09/22. Vitamin B-12 50 mcg Tablet 50 mcg PO QAM montelukast 10 mg tablet 10 mg PO QAM furosemide [Lasix] 40 mg tablet 40 mg PO BIDWM 30 Days Qty: 30 0RF gabapentin 100 mg Capsule 200 mg PO TID Qty: 180 0RF capsaicin 0.025 % Cream 1 applic topical QID PRN (Reason: Pain) Qty: 60 0RF acetaminophen 500 mg Tablet 1,000 mg PO Q6H PRN (Reason: Pain) omeprazole 20 mg capsule,delayed release(DR/EC) 20 mg PO BID Nitrostat 0.4 mg Tablet, Sublingual 0.4 mg SUBLINGUAL Q5M PRN (Reason: Chest Pain) Rx Instructions: do not exceed 3 doses per episode albuterol sulfate 90 mcg/actuation HFA aerosol inhaler 2 puff INHALATION QID PRN (Reason: Shortness Of Breath) ondansetron 4 mg tablet,disintegrating 4 mg PO BEDTIME potassium chloride 20 mEq tablet extended release 40 meq PO DAILY@14 Discharge Orders: Discharge ED (Routine); Ordered 11/10/22 Ordered By: Abiodun Stone Referrals: Ferny Peterson MD [Primary Care Provider] - Patient Instructions: Opioid Safety, Pain Management Activity Restrictions/Additional Instructions: You are seen today for right-sided pain. You have a right kidney stone that is 3 mm would expect this to pass spontaneously. You also had a cystitis. You are given pain medication and oral antibiotics. If your symptoms worsen you run a fever or pain is poorly controlled return to the emergency room. Coding Level of Care Code ED Law Enforcement Director for Wesley Herrera Exam Detailed
--- NOTE | 2022-11-10 07:11 | ECG_ITS ---
[facility] Test Date: 2022-11-10 Pat Name: Elena Pulliam Department: Room: Gender: Female Expansion Joint Builder: : 1970 Requested By: Abiodun Johnson Order Number: [id number] Arlette MD: Sil Pineda M.D. Measurements Intervals [place] Rate: 87 P: 42 SD: 157 QRS: -40 QRSD: 142 T: 63 QT: 430 QTc: 518 Interpretive Statements SINUS RHYTHM LEFT AXIS DEVIATION [QRS AXIS < -30] LEFT BUNDLE BRANCH BLOCK [120+ ms QRS DURATION, 80+ ms Q/S IN V1/V2, 85+ ms R IN I/aVL/V5/V6] Compared to ECG 10/31/2022 02:02:32 Left bundle-branch block now present Intraventricular conduction delay no longer present Electronically Signed On 11-10-2022 8:36:22 [employer] W[employer]ER OPERATOR by Sil Pineda M.D. [id number]
--- NOTE | 2022-11-10 07:19 | CT_ITS ---
WS: [id number] CT ABDOMEN AND PELVIS NONCONTRAST HISTORY: RIGHT lower quadrant pain with nausea and vomiting for 3 days. TECHNIQUE: Imaging performed through the abdomen and pelvis. Coronal and sagittal reformats are submi tted. All CT scans at [facility] use at least one of these dose optimization techniques: auto mated exposure control; mA and/or kV adjustment per patient size (includes targeted exams where dose is matched to clinical indication); or iterative reconstruction. DLP: 483.30 mGy.cm COMPARISON: 10/30/2022 Lower thorax: Benign granuloma RIGHT lower lobe. Heart is moderately enlarged with a small pericardia l effusion versus pericardial thickening. Single lead electrode in the RIGHT heart. Liver: Liver is normal size. Patient has a known previously described mass change in the contour of [facility] liver involving the posterior RIGHT lobe. On this unenhanced study this mass is low attenuation me asuring 4.6 x 4.2 cm. On the prior study MRI was recommended for further evaluation. Gallbladder: Prior cholecystectomy. Pancreas: Normal size and attenuation. Normal pancreatic duct. No pancreatitis or mass. Spleen: Normal. Adrenal glands: Normal. No mass. Right kidney: Kidney is normal size. Diffuse cortical lobulations. Nonobstructing calcifications in [facility] central pelvis. 3 mm calcification in the mid ureter at the level of the sacrum is new. Left kidney: Mild atrophy of the LEFT kidney. LEFT percutaneous nephrostomy tube is reidentified. Pig tail is coiled in the renal pelvis as expected. There is no obstruction. Proximal ureteral calcificat ion is not causing a significant obstruction. This calcification measures 4 mm. There may be a very s mall more proximal 2 mm calcification. Not changed since the prior study. Aorta: Mild atherosclerosis abdominal aorta with no aneurysm. Abnormal lymph node just to the RIGHT of the celiac axis extending towards the brunilda hepatis is reide ntified. This lymph node extends over length of 4.2 cm. Lobulated lymph node measures 2.8 x 2.4 cm an d was previously described and is an abnormal necrotic appearing lymph node. This lymph node first se en on 09/30/2022. GI tract: Normal stomach. No small bowel obstruction. Moderate constipation involving majority of the colon. No obstructing lesions. The appendix is normal. Abdominal wall: Negative. No hernia. Pelvis: Well-distended urinary bladder. Uterus is still present. Resolved ascites. Osseous structures: ORIF LEFT hip. CT/CT abdomen pelvis wo con [id number] IMPRESSION: 1. New 3 mm calcification in the mid RIGHT ureter with no significant hydronep hrosis. 2. Unchanged position of the LEFT percutaneous nephrostomy tube with small roxi cifications reidentified in the mid ureter. 3. No significant change in the solid mass extending posterior in the RIGHT lo be the liver. Better visualized and described on the prior CT performed with co ntrast. Nonurgent MRI was recommended and should be obtained. Suspicious for ne oplasm. 4. Lymphadenopathy to the RIGHT of the celiac axis. Abnormal single or cluster of lymph nodes. Also described on 10/30/2022. 5. Resolved small bilateral pleural effusions and bilateral lower lobe pneumon itis since 10/30/2022. 6. Constipation. 7. Resolved free fluid in the pelvis since the prior study.
[2022-11-10 07:51] LABS: Basophils # 0.1 10^3/uL (0.0-0.1); Basophils % 0.9 %; Eosinophils # 0.1 10^3/uL (0.0-0.8); Eosinophils % 1.2 %; Hematocrit 36.8 % (37.0-47.0); Hemoglobin 12.3 g/dL (11.5-15.3); Lymphocytes # 1.8 10^3/uL (0.8-4.8); Lymphocytes % 23.7 %; Mean Corpuscular HGB Conc 33.4 g/dL (30.0-36.0); Mean Corpuscular Hemoglobin 35.5 pg (28.0-34.0); Mean Corpuscular Volume 106.4 fl (81-99); Mean Platelet Volume 10.3 fL (7.4-10.4); Monocytes # 0.5 10^3/uL (0.2-0.9); Neutrophils # 5.13 10^3/uL (1.8-7.7); Neutrophils % 66.6 %; Nucleated Red Blood Cells % 0 %; Platelet Count 237 10^3/cmm (130-400); Red Blood Count 3.46 10^6/uL (4.1-5.3); Red Cell Distribution Width 14.2 % (12.1-15.1); White Blood Count 7.7 10^3/uL (4.0-10.0)
[2022-11-10 08:09] LABS: Alanine Aminotransferase 12 U/L (0-33); Albumin Level 4.4 g/dL (3.5-5.2); Alkaline Phosphatase 110 U/L (35-105); Anion Gap 22.1 (5-19); Aspartate Amino Transferase 24 U/L (0-32); Blood Urea Nitrogen 19 mg/dL (6-20); Calcium 9.7 mg/dL (8.5-10.5); Carbon Dioxide 23 mmol/L (22-29); Chloride 97 mmol/L (98-107); Globulin 2.9 g/dL (1.3-4.6); Glomerular Filtration Rate 47.2 mL/min (90-130); Glucose 117 mg/dL (65-115); Lipase 29 U/L (13-60); Osmolality Calculated 291 mOsm/kg (285-295); Potassium 3.1 mmol/L (3.5-5.1); Sodium 139 mmol/L (136-145); Total Bilirubin 0.8 mg/dL (0.15-1.2); Total Protein 7.3 g/dL (6.6-8.7)
[2022-11-10 09:01] VITALS: RESP 14; O2SAT 97
[2022-11-10] MEDS: ondansetron 2 mg/ML SDV 2 mL 4 MG IVP (09:01)
[2022-11-10] MEDS: morphine 4 mg/mL SDV 1 mL IVP ×2 (09:01→11:19)
[2022-11-10] MEDS: potassium chloride oral liq 20 mEq/15 mL UDC 40 MEQ PO (09:35)
[2022-11-10 09:53] VITALS: BP 123/86; PULSE 84; RESP 14; O2SAT 93
[2022-11-10 10:16] LABS: Add Urine Microscopic? YES; Bilirubin Urine Neg (Negative); Blood Urine Neg (Negative); Glucose Urine UA Norm (Normal); Ketones Urine Negative (Negative); Leukocyte Esterase Urine 2+ (Negative); Nitrate Urine Negative (Negative); Protein Urine Neg (Negative); Specific Gravity, Urine 1.015 (1.005-1.030); Urine Appearance Hazy (CLEAR); Urine Color Yellow (Yellow); Urobilinogen Urine Neg (Negative); pH Urine 6.5 (5-7)
[2022-11-10 10:18] LABS: Add Urine Culture? Yes; Amorphous Sediment Urine 1+ /hpf; Bacteria Urine TRACE /hpf; WBC Urine 15-25 /hpf (0-5)
[2022-11-10 11:19] VITALS: RESP 16; O2SAT 98
[2022-11-10] MEDS: cefTRIAXone 1,000 MG in sodium chloride 0.9% (plus) 50 ML 100 MG IV (11:50)
--- NOTE | 2022-11-11 10:17 | DCPLANNER ---
Addendum entered by Kathi Bruno 11/15/22 15:30: manager hair received the following message from the front office staff at urology regarding follow up appointment: She will be following up in [place]. On 11/14/22 @ 09:31 Kathi Bruno Wrote To [place] (2) Will she be following up with Dr. Austin at all or just in [place]? On 11/14/22 @ 09:22 Edgar Nielson Wrote To [place] (2) Patient stated that her appointment is 12/01/22 in [place]. Patient stated that is the soonest that they can get her in. On 11/14/22 @ 08:13 Kathi Bruno Wrote To Urology Front Office I am not for sure if she went to [place] or not, it does not say in the chart, so I am unsure sorry On 11/11/22 @ 15:46 Desire [place] Wrote To Kathi Bruno Did she go to [place]? Dr. Austin had referred her to [place] to have the stone taken care of. Original Note: manager hair had message to schedule a follow up appointment for patient with urology. manager hair sent patients information to the front office staff at urology. Patients information will be printed and reviewed. Clinic will call patient with appointment information.
== END 2022-11-10 12:35 | disposition home or self-care (01) ==
PROVIDERS: Emergency Provider Family Medicine; PCP Family Medicine
DX: N20.0 Calculus of kidney (principal); N30.90 Cystitis, unspecified without hematuria
CPT/HCPCS: 71045; 74176; 80053; 81001; 83690; 85025; 87086; 93005; 96365; 96375; 96376; 99285; J0696; J2270; J2405

== ENCOUNTER 2022-11-16 10:05 | Observation (INO) | payer MEDICARE, MEDICAID, SELFPAY ==
[2022-11-16] VITALS (11 sets, daily range): BP systolic 101–134; BP diastolic 59–77; PULSE 84–96; RESP 14–20; TEMP 36.9–37.6; O2SAT 94–100; BMI 26.6; BMI 25.7
--- NOTE | 2022-11-16 10:18 | W.ED.ARRPALP ---
HPI - Arrhythmia/Palpitations General: Chief Complaint: Arrhythmia/Palpitations Stated Complaint: Rapid Heart Rate Time Seen by Provider: 11/16/22 10:18 Source: patient Mode of arrival: ambulatory History of Present Illness: 52-year-old female who presents emergency room after an episode of rapid heart rate accompanied by brief shortness of breath seizure felt like her pacer was beating irregularly. She does not recall being shocked that her heart rate seem to race for a bit skipped a few times and then improved. She got mildly diaphoretic. She has had previous episodes similar she denies any chest pain at this time at this point she says she feels like everything's generally back to normal although she feels a little more tired than usual. MD complaint: rapid heart beat, heart racing , skipped beats and palpitations Onset (ago): minute(s) Duration: intermittent Context: occurred during rest Arrhythmia history: AICD Associated symptoms: Reports diaphoresis and short of breath; Deny anxiety, cough, muscle cramps, nausea, paresthesias, pre-syncope, sense of impending doom, syncope, vomiting or other Review of Systems Const: Reports: diaphoresis; Denies: fever(s), chills, fatigue or malaise ENMT: Denies: throat pain, ear or mastoid pain, nasal discharge or nasal congestion Card: Reports: palpitations and irregular heart rhythm; Denies: chest pain, syncope or pre-syncope Resp: Denies: dyspnea, productive cough or non-productive cough GI: Denies: abdominal pain, nausea or vomiting : Denies: flank pain, difficulty voiding, dysuria, urinary frequency or urinary urgency Musc: Denies: muscle cramps Skin/Breast: Denies: rash or pruritus Psych: Denies: anxiety PFSH ED PFSH: Medical History AICD discharge CHF (congestive heart failure) Related to nonischemic cardiomyopathy, most recent ejection fraction with with EF 42%. History of recurrent UTIs History of TIA (transient ischemic attack) HTN (hypertension) Hypokalemia ICD (implantable cardioverter-defibrillator) in place Liver mass Mass of right lobe of liver ~3.5 x 4 cm, indeterminant, hypodense, first noted 11/2021 Nonischemic cardiomyopathy Specific etiology unknown, may have been viral or related to uncontrolled hypertension from her recollection Echocardiogram November 2021 with ejection fraction of 42% - 05/17/22 echo EF now 25% Obstructive pyelonephritis (~11/2021) Syncope Urolithiasis Multi stone former. Complicated by at least 1 episode of obstructive pyelonephritis. Multiple procedures required to treat Surgical History S/P ureteral stent placement (~11/2021) Status post cholecystectomy Status post placement of cardiac pacemaker Family History Father , AT AGE 77 CAD (coronary artery disease) Cancer lung cancer Mother , AT AGE 60 Cancer OVARIAN Denies family history of Clotting disorder Anesthesia complication Bleeding disorder Social History Smoking and tobacco status: current every day smoker cigarettes Packs smoked per day: 0.5 Years cigarettes smoked: 45 Second hand smoke exposure: Yes Alcohol intake: current Lives independently: Yes Marital status: service: No Current occupational status: disabled Current gender identity: Female Physical Exam Const: COMMON NORMALS: no acute distress GENERAL APPEARANCE: cooperative and comfortable ORIENTATION/CONSCIOUSNESS: Yes awake, Yes oriented to person, Yes oriented to place and Yes oriented to time HENMT: COMMON NORMALS: normocephalic, atraumatic and hearing grossly normal bilaterally HEAD & SCALP: normocephalic and atraumatic Resp: COMMON NORMALS: normal respiratory effort, No retractions, No use of accessory muscles and clear to auscultation bilaterally AUSCULTATION: clear to auscultation bilaterally Cardio: COMMON NORMALS: regular rate, regular rhythm and No murmurs present (Cardio) RATE: regular rate RHYTHM: regular rhythm GI: COMMON NORMALS: Soft to palpation and No hepatosplenomegaly present AUSCULTATION: Yes normoactive bowel sounds PALPATION: Yes Soft to palpation, No Tenderness to palpation present (GI), No Guarding due to palpation present (GI) and Yes No hepatosplenomegaly present Extremity: COMMON NORMALS: normal to inspection, capillary refill normal, no clubbing, cyanosis or edema, no calf tenderness and no pedal edema Neuro: SENSORIUM/ORIENTATION: Yes oriented to person, Yes oriented to place and Yes oriented to time Skin: COMMON NORMALS: no rashes or lesions noted GENERAL SKIN EXAM: no rashes or lesions noted Course Vital Signs: Vital signs: Vital Signs Temperature 98.6 F 11/17/22 16:03 Pulse Rate 92 11/17/22 16:03 Respiratory Rate 16 11/17/22 16:03 Blood Pressure 118/75 11/17/22 16:03 Pulse Oximetry 93 11/17/22 16:03 Oxygen Delivery Me thod 11/17/22 08:15 MDM - Arrhythmia/Palpitations Medical Decision Making Interrogation of the pacer shows she has had a couple of events recently where the was placed out ventricular tachycardia. Discussed with hospitalist will admit consult cardiology orders written. Serial troponinsNegative to this point. Does not appear she has a pneumonia or acute coronary event but is having ventricular arrhythmias and will require admission. Medical Records I reviewed the patient's medical records. Lab Data I reviewed the patient's lab results. 11/16/22 10:39 11/16/22 10:39 Radiology Impressions Chest X-Ray 11/16/22 10:19 IMPRESSION: Mild reticular opacities in the lower right lung may reflect atelectasis versus infection. Laboratory Results WBC 7.0 10^3/uL (4.0-10.0) 11/16/22 10:39 RBC 3.48 10^6/uL (4.1-5.3) L 11/16/22 10:39 Hgb 12.0 g/dL (11.5-15.3) 11/16/22 10:39 Hct 36.6 % (37.0-47.0) L 11/16/22 10:39 MCV 105.2 fl (81-99) H 11/16/22 10:39 MCH 34.5 pg (28.0-34.0) H 11/16/22 10:39 MCHC 32.8 g/dL (30.0-36.0) 11/16/22 10:39 RDW 13.4 % (12.1-15.1) 11/16/22 10:39 Plt Count 229 10^3/cmm (130-400) 11/16/22 10:39 MPV 10.9 fL (7.4-10.4) H 11/16/22 10:39 Neut % (Auto) 60.5 % 11/16/22 10:39 Lymph % (Auto) 26.6 % 11/16/22 10:39 Izard % (Auto) 9.4 % 11/16/22 10:39 Eos % (Auto) 1.4 % 11/16/22 10:39 Baso % (Auto) 1.7 % 11/16/22 10:39 Neut # (Auto) 4.23 10^3/uL (1.8-7.7) 11/16/22 10:39 Lymph # (Auto) 1.9 10^3/uL (0.8-4.8) 11/16/22 10:39 Izard # (Auto) 0.7 10^3/uL (0.2-0.9) 11/16/22 10:39 Eos # (Auto) 0.1 10^3/uL (0.0-0.8) 11/16/22 10:39 Baso # (Auto) 0.1 10^3/uL (0.0-0.1) 11/16/22 10:39 Nucleated RBC % (auto) 0 % 11/16/22 10:39 Nucleated RBCs # 0.0 /100WBC 11/16/22 10:39 D-Dimer 0.35 ug/mIFEU (0-0.59) 11/16/22 13:10 Sodium 139 mmol/L (136-145) 11/16/22 10:39 Potassium 2.9 mmol/L (3.5-5.1) L 11/16/22 10:39 Chloride 100 mmol/L (98-107) 11/16/22 10:39 Carbon Dioxide 28 mmol/L (22-29) 11/16/22 10:39 Anion Gap 13.9 (5-19) 11/16/22 10:39 BUN 18 mg/dL (6-20) 11/16/22 10:39 Creatinine 1.2 mg/dL (0.5-0.9) H 11/16/22 10:39 GFR Calculation 47.2 mL/min (90-130) L 11/16/22 10:39 Glucose 98 mg/dL (65-115) 11/16/22 10:39 Calculated Osmolality 290 mOsm/kg (285-295) 11/16/22 10:39 Calcium 9.2 mg/dL (8.5-10.5) 11/16/22 10:39 Magnesium 2.1 mg/dL (1.7-2.3) 11/16/22 10:39 Total Bilirubin 0.5 mg/dL (0.15-1.2) 11/16/22 10:39 AST 17 U/L (0-32) 11/16/22 10:39 ALT 11 U/L (0-33) 11/16/22 10:39 Alkaline Phosphatase 97 U/L (35-105) 11/16/22 10:39 Troponin T Baseline 15 ng/L (0-10) H 11/16/22 13:10 Troponin T 120 Minute 13.15 ng/L (0-10) H 11/16/22 15:00 Delta Troponin T -1.85 ABS# (0-10) L 11/16/22 15:00 NT-Pro-B Natriuret Pep 4407 pg/mL (0-125) H 11/16/22 15:00 Total Protein 6.5 g/dL (6.6-8.7) L 11/16/22 10:39 Albumin 4.2 g/dL (3.5-5.2) 11/16/22 10:39 Globulin 2.3 g/dL (1.3-4.6) 11/16/22 10:39 Urine Color Yellow (Yellow) 11/16/22 12:20 Urine Appearance Clear (CLEAR) 11/16/22 12:20 Urine pH 5 (5-7) 11/16/22 12:20 Ur Specific [place] 1.020 (1.005-1.030) 11/16/22 12:20 Urine Protein Neg (Negative) 11/16/22 12:20 Urine Glucose (UA) Norm (Normal) 11/16/22 12:20 Urine Ketones Negative (Negative) 11/16/22 12:20 Urine Blood Neg (Negative) 11/16/22 12:20 Urine Nitrate Negative (Negative) 11/16/22 12:20 Urine Bilirubin Neg (Negative) 11/16/22 12:20 Urine Urobilinogen Neg mg/dL (Negative) 11/16/22 12:20 Ur Leukocyte Esterase Trace (Negative) H 11/16/22 12:20 Urine RBC 0-4 /hpf (0-2) H 11/16/22 12:20 Urine WBC 5-10 /hpf (0-5) H 11/16/22 12:20 Ur Squamous Epith Cells None /hpf (0-5) 11/16/22 12:20 Amorphous Sediment Not Reportable 11/16/22 12:20 Urine Bacteria None /hpf (NONE) 11/16/22 12:20 Hepatitis A IgM Ab Non-reactive (Nonreactive) 11/16/22 10:39 Hep Bs Antigen Non-reactive (Nonreactive) 11/16/22 10:39 Hep B Core IgM Ab Non-reactive (Nonreactive) 11/16/22 10:39 Hepatitis C Antibody Non-reactive (Nonreactive) 11/16/22 10:39 HIV 1&2 Ab & HIV 1 Ag Non-reactive (Non-Reactiv) 11/16/22 10:39 HIV 1&2 Antibody Non-reactive (Non-Reactiv) 11/16/22 10:39 Discharge Plan Discharge Patient Disposition: Admitted As Inpatient Admit Provider: Sima Gonzales Clinical Impression: Ventricular tachycardia, AICD discharge, Acute hypokalemia, Hypertension Condition: Stable Coding Level of Care Code ED Clerk Specialist for Wesley Herrera
--- NOTE | 2022-11-16 10:19 | ECG_ITS ---
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 Measurements Intervals [place] Rate: 88 P: 45 LA: 163 QRS: -37 QRSD: 136 T: 5 QT: 451 QTc: 547 Interpretive Statements SINUS RHYTHM LEFT AXIS DEVIATION [QRS AXIS < -30] INTRAVENTRICULAR CONDUCTION DELAY [130+ ms QRS DURATION] LEFT VENTRICULAR HYPERTROPHY AND ST-T CHANGE [VOLTAGE CRITERIA PLUS ST/T ABNORMALITY] Compared to ECG 11/10/2022 07:11:42 Intraventricular conduction delay now present Left ventricular hypertrophy now present ST (T wave) deviation now present Left bundle-branch block no longer present Electronically Signed On 11-17-2022 0:06:24 FREIGHT [employer]OUTER by Michael Hill M.D. [id number]
--- NOTE | 2022-11-16 10:19 | XRR_ITS ---
PROCEDURE INFORMATION: Exam: XR Chest Exam date and time: 11/16/2022 10:23 AM Age: 52 years old Clinical indication: Other: Arrythmia; Prior surgery; Surgery type: Pacer defib TECHNIQUE: Imaging protocol: Radiologic exam of the chest. Views: 1 view. COMPARISON: CR XR chest 1V portable [id number] 11/10/2022 7:20 AM FINDINGS: Tubes, catheters and devices: Cardiac rhythm maintenance device is in place. Lungs: Mild reticular opacities in the lower right lung. Pleural spaces: Unremarkable. No pleural effusion. No pneumothorax. Heart/Mediastinum: Cardiomegaly. Bones/joints: Unremarkable. XR/XR chest 1V portable [id number] IMPRESSION: Mild reticular opacities in the lower right lung may reflect atelectasis versus infection.
--- NOTE | 2022-11-16 10:38 | PC.NURSE ---
PT PLACED ON CONTINUOUS NIBP, SPO2, AND CM
[2022-11-16 10:50] LABS: Basophils # 0.1 10^3/uL (0.0-0.1); Basophils % 1.7 %; Eosinophils # 0.1 10^3/uL (0.0-0.8); Eosinophils % 1.4 %; Hematocrit 36.6 % (37.0-47.0); Lymphocytes # 1.9 10^3/uL (0.8-4.8); Lymphocytes % 26.6 %; Mean Corpuscular HGB Conc 32.8 g/dL (30.0-36.0); Mean Corpuscular Hemoglobin 34.5 pg (28.0-34.0); Mean Corpuscular Volume 105.2 fl (81-99); Mean Platelet Volume 10.9 fL (7.4-10.4); Monocytes # 0.7 10^3/uL (0.2-0.9); Monocytes % 9.4 %; Neutrophils # 4.23 10^3/uL (1.8-7.7); Neutrophils % 60.5 %; Nucleated Red Blood Cells % 0 %; Platelet Count 229 10^3/cmm (130-400); Red Blood Count 3.48 10^6/uL (4.1-5.3); Red Cell Distribution Width 13.4 % (12.1-15.1)
--- NOTE | 2022-11-16 11:00 | PC.NURSE ---
PACEMAKER INTERROGATED USING [employer] DEVICE
[2022-11-16 11:07] LABS: Alanine Aminotransferase 11 U/L (0-33); Albumin Level 4.2 g/dL (3.5-5.2); Alkaline Phosphatase 97 U/L (35-105); Anion Gap 13.9 (5-19); Aspartate Amino Transferase 17 U/L (0-32); Blood Urea Nitrogen 18 mg/dL (6-20); Calcium 9.2 mg/dL (8.5-10.5); Carbon Dioxide 28 mmol/L (22-29); Chloride 100 mmol/L (98-107); Globulin 2.3 g/dL (1.3-4.6); Glomerular Filtration Rate 47.2 mL/min (90-130); Glucose 98 mg/dL (65-115); Osmolality Calculated 290 mOsm/kg (285-295); Sodium 139 mmol/L (136-145); Total Bilirubin 0.5 mg/dL (0.15-1.2); Total Protein 6.5 g/dL (6.6-8.7)
[2022-11-16 11:13] LABS: Potassium 2.9 mmol/L (3.5-5.1)
[2022-11-16] MEDS: sodium chloride 0.9% 1,000 ML 125 ML IV (11:50)
[2022-11-16] MEDS: potassium chloride premix 100 ML 25 MEQ IV ×2 (11:50→16:19)
[2022-11-16 12:21] LABS: Magnesium 2.1 mg/dL (1.7-2.3)
[2022-11-16 12:40] LABS: Glucose Urine UA Norm (Normal); Protein Urine Neg (Negative); Urine Appearance Clear (CLEAR); Urine Color Yellow (Yellow); pH Urine 5 (5-7)
[2022-11-16 12:41] LABS: Add Urine Microscopic? YES; Bilirubin Urine Neg (Negative); Blood Urine Neg (Negative); Ketones Urine Negative (Negative); Leukocyte Esterase Urine Trace (Negative); Nitrate Urine Negative (Negative); Urobilinogen Urine Neg (Negative)
--- NOTE | 2022-11-16 13:00 | P.HP_ITS ---
Providers/Chief Complaint Primary Care Provider: Ferny Peterson MD Chief Complaint: Rapid Heart Rate History of Present Illness Elena Pulliam is a 52 year old female who follows up with Dr. Pineda has history of AICD placement nonischemic cardiomyopathy EF 42% strong family history presented today after syncopal event and chest pain. Patient is stating that around 9:30 AM today she was sitting on a couch when all of a sudden she fe lt dizzy, she passed out for about 45 minutes when she woke up she was experiencing chest tightness, and nausea at that time she decided to come to the hospital Is interrogation revealed that she was tachycardic which was over paced and she was shocked, patient is denying feeling AICD discharge, in fact few weeks back she had another AICD discharge which she did not notice at all, hypokalemia has been repleted, she has been admitted for observation, Dr. Pineda has been consulted troponin with negative delta, magnesium requested Patient is chest pain-free at the time of my eval Review of Systems Const: Denies: fever(s) Eyes: Denies: change in vision ENMT: Denies: throat pain Card: Reports: chest pain Resp: Reports: dyspnea GI: Reports: nausea : Denies: flank pain Musc: Denies: neck pain Skin/Breast: Denies: rash Neuro: Denies: headache(s) Psych: Reports: anxiety Endo: Denies: polyuria Cedric/Lymph: Denies: easy bruising All/Imm: Denies: urticaria Medications/Allergies Home Medications Medication Instructions Recorded Confirmed Last Taken Type citalopram 40 mg tablet (Celexa) 40 mg PO QPM 01/31/20 11/16/22 11/15/22 History zolpidem 10 mg tablet 10 mg PO BEDTIME 01/31/20 11/16/22 11/15/22 History aspirin 81 mg tablet,delayed 162 mg PO QAM 01/20/21 11/16/22 11/16/22 History release (Adult Low Dose Aspirin) cyanocobalamin (vitamin B-12) 50 50 mcg PO QAM 11/30/21 11/16/22 11/16/22 History mcg tablet (Vitamin B-12) montelukast 10 mg tablet 10 mg PO QAM 11/30/21 11/16/22 11/16/22 History sacubitril 97 mg-valsartan 103 mg 1 tab PO BID #120 tabs 09/14/22 11/16/22 11/16/22 Rx tablet capsaicin 0.025 % topical cream 1 applic topical QID PRN Pain #60 10/02/22 11/16/22 Unknown Rx grams gabapentin 100 mg capsule 200 mg PO TID #180 caps 10/02/22 11/16/22 11/16/22 Rx acetaminophen 500 mg tablet 1,000 mg PO Q6H PRN Pain 10/26/22 11/16/22 Unknown History omeprazole 20 mg capsule,delayed 20 mg PO BID 10/26/22 11/16/22 11/16/22 History release carvedilol 6.25 mg tablet 6.25 mg PO BID #180 tabs 10/28/22 11/16/22 11/16/22 Rx furosemide 40 mg tablet (Lasix) 40 mg PO BIDWM 30 days #30 tabs 11/02/22 11/16/22 11/16/22 Rx albuterol sulfate 90 mcg/actuation 2 puff inhalation QID PRN 11/10/22 11/16/22 Unknown History aerosol inhaler Shortness Of Breath ciprofloxacin HCl 500 mg tablet 500 mg PO BID #20 tabs 11/10/22 11/16/22 11/16/22 Rx (Cipro) hydrocodone 5 mg-acetaminophen 325 1 tab PO Q6H PRN pain #25 tabs 11/10/22 11/16/22 Unknown Rx mg tablet nitroglycerin 0.4 mg sublingual 0.4 mg sublingual Q5M PRN Chest 11/10/22 11/16/22 Unknown History tablet (Nitrostat) Pain ondansetron 4 mg disintegrating 4 mg PO Q6H PRN Nausea 11/10/22 11/16/22 11/09/22 History tablet potassium chloride 20 mEq 40 meq PO DAILY@14 11/10/22 11/16/22 11/15/22 History tablet,extended release Allergies Allergy/AdvReac Type Severity Reaction Status Date / Time egg Allergy unknown Verified 11/10/22 09:52 PFSH Acute PFSH: Medical History CHF (congestive heart failure) Related to nonischemic cardiomyopathy, most recent ejection fraction with with EF 42%. History of recurrent UTIs History of TIA (transient ischemic attack) HTN (hypertension) ICD (implantable cardioverter-defibrillator) in place Mass of right lobe of liver ~3.5 x 4 cm, indeterminant, hypodense, first noted 11/2021 Nonischemic cardiomyopathy Specific etiology unknown, may have been viral or related to uncontrolled hypertension from her recollection Echocardiogram November 2021 with ejection fraction of 42% - 05/17/22 echo EF now 25% Obstructive pyelonephritis (~11/2021) Urolithiasis Multi stone former. Complicated by at least 1 episode of obstructive pyelonephritis. Multiple procedures required to treat Surgical History S/P ureteral stent placement (~11/2021) Status post cholecystectomy Status post placement of cardiac pacemaker Family History Father , AT AGE 77 CAD (coronary artery disease) Cancer lung cancer Mother , AT AGE 60 Cancer OVARIAN Denies family history of Clotting disorder Anesthesia complication Bleeding disorder Social History Smoking and tobacco status: current every day smoker cigarettes Packs smoked per day: 0.5 Years cigarettes smoked: 45 Second hand smoke exposure: Yes Alcohol intake: current Lives independently: Yes Marital status: service: No Current occupational status: disabled Current gender identity: Female Vitals/I&O/Wt Last Vital Signs Temp 98.4 F 11/16/22 10:05 Pulse 88 11/16/22 11:39 Resp 15 11/16/22 10:38 BP 127/68 11/16/22 11:39 Pulse Ox 98 11/16/22 10:38 O2 Del Method 11/16/22 10:05 Weight last 48 hrs Weight 72.575 kg Physical Exam Narrative: Patient is chest pain free Euvolemic S1, S2 variable Abdomen soft On room air Pleasant and cooperative Abdomen soft No audible stridor or wheezing Nonfocal neuro exam Appears stated age No acute distress Data 11/16/22 10:39 11/16/22 10:39 A&P Assessment and plan (1) AICD discharge: (2) HTN (hypertension): Qualifiers: Hypertension type: essential hypertension Qualified Code(s): I10 - E ssential (primary) hypertension (3) ICD (implantable cardioverter-defibrillator) in place: (4) Syncope: (5) Liver mass: (6) Nonischemic cardiomyopathy: (7) Hypokalemia: Plan AICD DISCHARGE : CARDIOLOGY CONSULTED NO ACTIVE CHEST PAIN, SERIAL TROP AND EKG HYPOKALEMIA: REpleted CHECK MAG LEVEL Mixed systolic diastolic CHF without acute exacerbation, Chronic pleural effusion without active worsening Sleep apnea patient is 2 L of oxygen at baseline at nighttime History of liver mass: Cardiac diet Full code We will follow-up with cardiology recommendations No need of amiodarone for now Attestations Medical Necessity Statement*: Anticipating discharged within 40 hours Coding Level of Care Code 75728 Diagnoses AICD discharge Z45.02 HTN (hypertension) I10 Hypertension type: essential hypertension ICD (implantable cardioverter-defibrillator) in place Z95.810 Syncope R55 Liver mass R16.0 Nonischemic cardiomyopathy I42.8 Hypokalemia E87.6
--- NOTE | 2022-11-16 13:10 | ECG_ITS ---
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 Measurements Intervals [place] Rate: 85 P: 44 VA: 164 QRS: -41 QRSD: 140 T: 89 QT: 358 QTc: 427 Interpretive Statements SINUS RHYTHM LEFT AXIS DEVIATION [QRS AXIS < -30] LEFT BUNDLE BRANCH BLOCK [120+ ms QRS DURATION, 80+ ms Q/S IN V1/V2, 85+ ms R IN I/aVL/V5/V6] Compared to ECG 11/16/2022 10:32:15 Left bundle-branch block now present Intraventricular conduction delay no longer present Left ventricular hypertrophy no longer present ST (T wave) deviation no longer present Electronically Signed On 11-17-2022 0:09:36 [employer]PER[employer] by Michael Hill M.D. [id number]
[2022-11-16 13:33] LABS: Troponin(5th) Baseline 15 ng/L (0-10)
[2022-11-16 13:36] LABS: RBC Urine 0-4 /hpf (0-2)
[2022-11-16 13:37] LABS: Add Urine Culture? No
[2022-11-16 13:43] LABS: D Dimer 0.35 ug/mIFEU (0-0.59)
[2022-11-16 15:25] LABS: Troponin 5 2HR 13.15 ng/L (0-10)
[2022-11-16 15:26] LABS: Troponin 5 2HR Delta -1.85 ABS# (0-10)
[2022-11-16] MEDS: gabapentin 100 mg Capsule 200 MG PO ×2 (16:19→20:54)
[2022-11-16] MEDS: heparin 5,000 unit/mL INJ 1 mL 5000 UNIT SUBCUT (16:19)
--- NOTE | 2022-11-16 16:23 | PM.CONSULT ---
Providers/Reason For Consult Consulting Physician/Specialty*: Dr. Pineda, Cardiology Reason for Consult*: ICD discharge Attending Physician: Sima Gonzales MD Primary Care Provider: Ferny Peterson MD History of Present Illness History of Present Illness Elena Pulliam is a 52 year old female 52 yo woman with PMHx of CHF (HFrEF=LVEF=20-25%), nonischemic cardiomyopathy,? status post ICD placement in 2007 and gen change 04/2018, hypertension and h/o recurrent renal stones. In 08/2008 she had first ICD at age 38.? Brother with h/o CABG x 4 in his early 60's. Father with heart problems. She has had two prior cardiac caths w/o any intervention and stress test last year with no reversible ischemia.?She was also evaluated with ELIZA that showed moderate by ELIZA.?? Patient's stack attendant decreased the Carvedilol from 6.25mg BID to 3.125mg BID after nephrostomy tube placement in 09/2022 at [place]. She ran out of Aspirin, Lasix, and a couple other medications that were refilled in my office. She eneded up in ER with CHF exacerbation and was discharged home on lasix 40 mg BID(double of her usual dose) but dose of potassium was not adjusted. Her labs on 11/10/22 in ER shows hypokalemia but I am not seeing that it was replaced. She came in again with dizziness, tachycardia/fluttering and possible syncopal episode this morning. Her ICD was interrogated and as reported to me there were 2 epiosdes of failed ATP followed by shock. Patient states she has been consistently losing weight and has noticed improved SOB with lasix. She has received 40 meq IV of potassium and potassium 40 meq PO daily has been ordered. She complains of feeling tired at this time. Review of Systems Const: Reports: fatigue; Denies: fever(s) or chills Eyes: Denies: change in vision Card: Reports: palpitations (skipping and racing) and dyspnea on exertion; Denies: chest pain, swelling of feet/ankles, lightheadedness, syncope, pre-syncope or orthopnea Resp: Reports: dyspnea; Denies: productive cough or non-productive cough GI: Denies: abdominal pain, nausea or vomiting Musc: Reports: neck pain, back pain and joint pain Neuro: Reports: headache(s); Denies: dizziness Psych: Reports: anxiety and depression Cedric/Lymph: Reports: easy bruising and easy bleeding Medications/Allergies Home Medications Medication Instructions Recorded Confirmed Last Taken Type citalopram 40 mg tablet (Celexa) 40 mg PO QPM 01/31/20 11/16/22 11/15/22 History zolpidem 10 mg tablet 10 mg PO BEDTIME 01/31/20 11/16/22 11/15/22 History aspirin 81 mg tablet,delayed 162 mg PO QAM 01/20/21 11/16/22 11/16/22 History release (Adult Low Dose Aspirin) cyanocobalamin (vitamin B-12) 50 50 mcg PO QAM 11/30/21 11/16/22 11/16/22 History mcg tablet (Vitamin B-12) montelukast 10 mg tablet 10 mg PO QAM 11/30/21 11/16/22 11/16/22 History sacubitril 97 mg-valsartan 103 mg 1 tab PO BID #120 tabs 09/14/22 11/16/22 11/16/22 Rx tablet capsaicin 0.025 % topical cream 1 applic topical QID PRN Pain #60 10/02/22 11/16/22 Unknown Rx grams gabapentin 100 mg capsule 200 mg PO TID #180 caps 10/02/22 11/16/22 11/16/22 Rx acetaminophen 500 mg tablet 1,000 mg PO Q6H PRN Pain 10/26/22 11/16/22 Unknown History omeprazole 20 mg capsule,delayed 20 mg PO BID 10/26/22 11/16/22 11/16/22 History release carvedilol 6.25 mg tablet 6.25 mg PO BID #180 tabs 10/28/22 11/16/22 11/16/22 Rx furosemide 40 mg tablet (Lasix) 40 mg PO BIDWM 30 days #30 tabs 11/02/22 11/16/22 11/16/22 Rx albuterol sulfate 90 mcg/actuation 2 puff inhalation QID PRN 11/10/22 11/16/22 Unknown History aerosol inhaler Shortness Of Breath ciprofloxacin HCl 500 mg tablet 500 mg PO BID #20 tabs 11/10/22 11/16/22 11/16/22 Rx (Cipro) hydrocodone 5 mg-acetaminophen 325 1 tab PO Q6H PRN pain #25 tabs 11/10/22 11/16/22 Unknown Rx mg tablet nitroglycerin 0.4 mg sublingual 0.4 mg sublingual Q5M PRN Chest 11/10/22 11/16/22 Unknown History tablet (Nitrostat) Pain ondansetron 4 mg disintegrating 4 mg PO Q6H PRN Nausea 11/10/22 11/16/22 11/09/22 History tablet potassium chloride 20 mEq 40 meq PO DAILY@14 11/10/22 11/16/22 11/15/22 History tablet,extended release Allergies Allergy/AdvReac Type Severity Reaction Status Date / Time egg Allergy unknown Verified 11/10/22 09:52 Current Medications Generic Name Dose Route Start Last Admin Trade Name Freq PRN Reason Stop Dose Admin Gabapentin 200 mg 11/16/22 15:42 11/16/22 16:19 Gabapentin 100 Mg Capsule PO 200 mg TID AURE Administration Heparin Sodium (Porcine) 5,000 unit 11/16/22 16:00 11/16/22 16:19 Heparin 5,000 Unit/Ml Inj 1 Ml SUBCUT 5,000 unit Q12H AURE Administration Potassium Chloride 100 mls @ 25 mls/hr 11/16/22 11:30 11/16/22 16:19 K-Conner IV 11/16/22 19:29 25 mls/hr Q4H AURE Administration Sodium Chloride 1,000 mls @ 125 mls/hr 11/16/22 11:45 11/16/22 11:50 Sodium Chloride 0.9% IV 125 mls/hr .Q8H AURE Administration PFSH Acute PFSH: Medical History CHF (congestive heart failure) Related to nonischemic cardiomyopathy, most recent ejection fraction with with EF 42%. History of recurrent UTIs History of TIA (transient ischemic attack) HTN (hypertension) ICD (implantable cardioverter-defibrillator) in place Mass of right lobe of liver ~3.5 x 4 cm, indeterminant, hypodense, first noted 11/2021 Nonischemic cardiomyopathy Specific etiology unknown, may have been viral or related to uncontrolled hypertension from her recollection Echocardiogram November 2021 with ejection fraction of 42% - 05/17/22 echo EF now 25% Obstructive pyelonephritis (~11/2021) Urolithiasis Multi stone former. Complicated by at least 1 episode of obstructive pyelonephritis. Multiple procedures required to treat Surgical History S/P ureteral stent placement (~11/2021) Status post cholecystectomy Status post placement of cardiac pacemaker Family History Father , AT AGE 77 CAD (coronary artery disease) Cancer lung cancer Mother , AT AGE 60 Cancer OVARIAN Denies family history of Clotting disorder Anesthesia complication Bleeding disorder Social History Smoking and tobacco status: current every day smoker cigarettes Packs smoked per day: 0.5 Years cigarettes smoked: 45 Second hand smoke exposure: Yes Alcohol intake: current Lives independently: Yes Marital status: service: No Current occupational status: disabled Current gender identity: Female Vitals/I&O/Wt Last Vital Signs Temp 98.4 F 11/16/22 10:05 Pulse 88 11/16/22 13:37 Resp 19 H 11/16/22 13:37 BP 127/68 11/16/22 11:39 Pulse Ox 98 11/16/22 13:37 O2 Del Method 11/16/22 10:05 11/16/22 11/16/22 11/16/22 06:59 14:59 22:59 Intake Total 100 / 100 Balance 100 / 100 Weight last 48 hrs Weight 154 lb 6 oz Weight 160 lb Physical Exam Narrative: Gen: NAD, obese woman laying in bed NeCK: No JVD appreciated HEENT: No pallor, EOMI, No lymphadenopathy RS: CTAB/L except at bases CVS: S1, S2, regular; No murmur, rub or gallop appreciated on exam EXt: No edemal, cyanosis or clubbing PA: soft, obese, NTND SKYLIGHTS ASSEMBLER: AAOx3, No FND Data 11/16/22 10:39 11/16/22 10:39 A&P Assessment and plan (1) AICD discharge: will f/u on interrogation. can not be located at this time. Nurse is trying to locate it in ER -replace potassium. Mg=2.1 -continue beta blockers (2) Nonischemic cardiomyopathy: HFrEF -continue coreg and entresto -lasix held (3) ICD (implantable cardioverter-defibrillator) in place: Plan Mitral Regurgitation: ELIZA shows mild to moderate MR. Recurrent renal stone Liver Mass Pleural effusion JEOVANNY Thank you for allowing me to participate in patient's care. Please feel free to call with questions or concerns. Patient seen today via Telehealth by agreement and consent of patient. Telehealth technology used during the visit include video and audio. Exam was conducted with the help of bedside nurse. Time spent in encounter 40 minutes with >50% time spent face to face. Coding Level of Care Code 76353 Diagnoses AICD discharge Z45.02 Nonischemic cardiomyopathy I42.8 ICD (implantable cardioverter-defibrillator) in place Z95.810
[2022-11-16] MEDS: morphine IR 15 mg Tablet PO (16:34)
[2022-11-16 18:04] LABS: Thyroid Stimulating Hormone 5.72 uIU/mL (0.27-4.20)
[2022-11-16] MEDS: pantoprazole DR 40 mg Tablet PO (18:13)
[2022-11-16] MEDS: carvedilol 6.25 mg Tablet PO (18:14)
[2022-11-16] MEDS: ondansetron 2 mg/ML SDV 2 mL 4 MG IVP (18:22)
--- NOTE | 2022-11-16 19:10 | ECG_ITS ---
[facility] Test Date: 2022-11-16 Pat Name: Elena Pulliam Department: Room: 102 Gender: Female Traffic Or System Dispatcher: : 1970 Requested By: Sima Gonzales Order Number: [id number] Arlette MD: Sil Pineda M.D. Measurements Intervals [place] Rate: 98 P: 46 DE: 136 QRS: -33 QRSD: 137 T: 80 QT: 422 QTc: 539 Interpretive Statements SINUS RHYTHM LEFT AXIS DEVIATION [QRS AXIS < -30] INTRAVENTRICULAR CONDUCTION DELAY [130+ ms QRS DURATION] LEFT VENTRICULAR HYPERTROPHY AND ST-T CHANGE [VOLTAGE CRITERIA PLUS ST/T ABNORMALITY] Compared to ECG 11/16/2022 13:28:19 Intraventricular conduction delay now present Left ventricular hypertrophy now present ST (T wave) deviation now present Left bundle-branch block no longer present Electronically Signed On 11-18-2022 8:17:53 ADJUNCT PHLEBOTOMY INSTRUCTOR by Sil Pineda M.D. [id number]
[2022-11-16 19:12] LABS: NT Pro B Type Natriuretic Pept 4407 pg/mL (0-125)
[2022-11-16 19:21] LABS: HIV 1 & 2 Antibody Non-Reactive (Non-Reactiv); HIV 1 & 2 Antigen Non-Reactive (Non-Reactiv)
[2022-11-16 19:47] LABS: Hepatitis A Antibody IgM Non-Reactive (Nonreactive); Hepatitis B Core IgM Non-Reactive (Nonreactive); Hepatitis B Surface Antigen Non-Reactive (Nonreactive); Hepatitis C Virus Antibody Non-Reactive (Nonreactive)
[2022-11-16 20:01] LABS: Troponin 5 6HR 14.11 ng/L (0-10)
[2022-11-16 20:03] LABS: Troponin 5 6HR Delta -0.89 ng/L (0-12)
[2022-11-16] MEDS: HYDROcodone-acetaminophen 5-325 mg Tablet 1 TAB PO (20:54)
[2022-11-16] MEDS: zolpidem 5 mg Tablet 10 MG PO (20:55)
[2022-11-17] VITALS (9 sets, daily range): BP systolic 100–118; BP diastolic 53–75; PULSE 84–93; RESP 15–18; TEMP 36.8–37; O2SAT 88–93
[2022-11-17] MEDS: morphine IR 15 mg Tablet PO ×2 (02:39→10:59)
[2022-11-17] MEDS: heparin 5,000 unit/mL INJ 1 mL 5000 UNIT SUBCUT (02:45)
[2022-11-17 04:04] LABS: Basophils # 0.1 10^3/uL (0.0-0.1); Basophils % 1.1 %; Eosinophils # 0.1 10^3/uL (0.0-0.8); Hematocrit 35.1 % (37.0-47.0); Lymphocytes # 2.6 10^3/uL (0.8-4.8); Lymphocytes % 39.9 %; Mean Corpuscular HGB Conc 31.3 g/dL (30.0-36.0); Mean Corpuscular Hemoglobin 34.2 pg (28.0-34.0); Mean Platelet Volume 11.8 fL (7.4-10.4); Monocytes # 0.5 10^3/uL (0.2-0.9); Monocytes % 8.1 %; Neutrophils # 3.18 10^3/uL (1.8-7.7); Neutrophils % 48.6 %; Nucleated Red Blood Cells % 0 %; Platelet Count 192 10^3/cmm (130-400); Red Blood Count 3.22 10^6/uL (4.1-5.3); Red Cell Distribution Width 13.2 % (12.1-15.1); White Blood Count 6.5 10^3/uL (4.0-10.0)
[2022-11-17 04:28] LABS: Anion Gap 14.1 (5-19); Blood Urea Nitrogen 19 mg/dL (6-20); Calcium 8.9 mg/dL (8.5-10.5); Carbon Dioxide 27 mmol/L (22-29); Chloride 102 mmol/L (98-107); Glomerular Filtration Rate 47.2 mL/min (90-130); Glucose 101 mg/dL (65-115); Magnesium 2.1 mg/dL (1.7-2.3); Osmolality Calculated 292 mOsm/kg (285-295); Phosphorus 3.6 mg/dL (2.5-4.5); Potassium 3.1 mmol/L (3.5-5.1); Sodium 140 mmol/L (136-145)
[2022-11-17] MEDS: HYDROcodone-acetaminophen 5-325 mg Tablet 1 TAB PO (05:52)
[2022-11-17] MEDS: aspirin 81 mg EC Tablet 162 MG PO (05:52)
[2022-11-17] MEDS: lidocaine 1% 5 ML in potassium chloride premix 100 ML 25 ML IV (07:41)
[2022-11-17 08:25] LABS: Free T4 Free Thyroxine 1.23 ng/dL (0.82-1.77)
[2022-11-17] MEDS: carvedilol 6.25 mg Tablet PO (08:59)
[2022-11-17] MEDS: pantoprazole DR 40 mg Tablet PO (08:59)
[2022-11-17] MEDS: gabapentin 100 mg Capsule 200 MG PO (08:59)
--- NOTE | 2022-11-17 10:07 | P.DS_ITS ---
Discharge Providers Date of Admission: 11/16/22 15:42 Date of Discharge: November 17, 2022 Attending Provider at Admission: Sima Gonzales MD Attending Provider at Discharge: Sima Gonzales MD Primary Care Provider: Ferny Peterson MD Diagnoses at Discharge Discharge Diagnosis (1) AICD discharge: Status: Acute (2) Nonischemic cardiomyopathy: Status: Chronic Permanent problem details: Specific etiology unknown, may have been viral or related to uncontrolled hypertension from her recollection Echocardiogram November 2021 with ejection fraction of 42% - 05/17/22 echo EF now 25% (3) ICD (implantable cardioverter-defibrillator) in place: Status: Chronic (4) HTN (hypertension): Status: Chronic Qualifiers: Hypertension type: essential hypertension Qualified Code(s): I10 - Essential (primary) hypertension (5) Liver mass: Status: Acute (6) Syncope: Status: Acute (7) Hypokalemia: Status: Acute Reason for Visit Reason for Visit: Rapid Heart Rate Hospital Course Hospital Course Ms. Pulliam is a patient of Dr. Pineda, carries history of nonischemic cardiomyopathy, status post AICD placement, presented to the hospital with chief complaint of dizziness, palpitations and syncopal episode. Her AICD was interrogated and reported to have 2 episodes of failed ATP followed by shock, her potassium was extremely low on admission which was replenished, magnesium is above 2. Patient did not experience any chest pain or any kind of symptoms such as shortness of breath, nausea, vomiting or sweating or syncopal events during hospitalization. Dr. Pineda was consulted. Patient does not want to stop taking her Entresto, she does have chronic kidney disease which has remained at baseline, she is euvolemic no active signs of heart failure exacerbation. She did well on room air. Physical Exam Narrative: Patient doing well on room air Euvolemic S1, S2 Abdomen soft Very pleasant cooperative Nonfocal neuro exam Discharge Data Studies Completed and Pending Completed Studies During Hospitalization Category Date Time Status XR chest 1V portable [id number] Stat Exams 11/16/22 10:19 Completed Radiology Impressions Chest X-Ray 11/16/22 10:19 IMPRESSION: Mild reticular opacities in the lower right lung may reflect atelectasis versus infection. Laboratory Results WBC 6.5 10^3/uL (4.0-10.0) 11/17/22 02:42 RBC 3.22 10^6/uL (4.1-5.3) L 11/17/22 02:42 Hgb 11.0 g/dL (11.5-15.3) L 11/17/22 02:42 Hct 35.1 % (37.0-47.0) L 11/17/22 02:42 MCV 109.0 fl (81-99) H 11/17/22 02:42 MCH 34.2 pg (28.0-34.0) H 11/17/22 02:42 MCHC 31.3 g/dL (30.0-36.0) 11/17/22 02:42 RDW 13.2 % (12.1-15.1) 11/17/22 02:42 Plt Count 192 10^3/cmm (130-400) 11/17/22 02:42 MPV 11.8 fL (7.4-10.4) H 11/17/22 02:42 Neut % (Auto) 48.6 % 11/17/22 02:42 Lymph % (Auto) 39.9 % 11/17/22 02:42 [place]ing % (Auto) 8.1 % 11/17/22 02:42 Eos % (Auto) 2.0 % 11/17/22 02:42 Baso % (Auto) 1.1 % 11/17/22 02:42 Neut # (Auto) 3.18 10^3/uL (1.8-7.7) 11/17/22 02:42 Lymph # (Auto) 2.6 10^3/uL (0.8-4.8) 11/17/22 02:42 Harding # (Auto) 0.5 10^3/uL (0.2-0.9) 11/17/22 02:42 Eos # (Auto) 0.1 10^3/uL (0.0-0.8) 11/17/22 02:42 Baso # (Auto) 0.1 10^3/uL (0.0-0.1) 11/17/22 02:42 Nucleated RBC % (auto) 0 % 11/17/22 02:42 Nucleated RBCs # 0.0 /100WBC 11/17/22 02:42 D-Dimer 0.35 ug/mIFEU (0-0.59) 11/16/22 13:10 Sodium 140 mmol/L (136-145) 11/17/22 02:42 Potassium 3.1 mmol/L (3.5-5.1) L 11/17/22 02:42 Chloride 102 mmol/L (98-107) 11/17/22 02:42 Carbon Dioxide 27 mmol/L (22-29) 11/17/22 02:42 Anion Gap 14.1 (5-19) 11/17/22 02:42 BUN 19 mg/dL (6-20) 11/17/22 02:42 Creatinine 1.2 mg/dL (0.5-0.9) H 11/17/22 02:42 GFR Calculation 47.2 mL/min (90-130) L 11/17/22 02:42 Glucose 101 mg/dL (65-115) 11/17/22 02:42 Calculated Osmolality 292 mOsm/kg (285-295) 11/17/22 02:42 Calcium 8.9 mg/dL (8.5-10.5) 11/17/22 02:42 Phosphorus 3.6 mg/dL (2.5-4.5) 11/17/22 02:42 Magnesium 2.1 mg/dL (1.7-2.3) 11/17/22 02:42 Total Bilirubin 0.5 mg/dL (0.15-1.2) 11/16/22 10:39 AST 17 U/L (0-32) 11/16/22 10:39 ALT 11 U/L (0-33) 11/16/22 10:39 Alkaline Phosphatase 97 U/L (35-105) 11/16/22 10:39 Troponin T Baseline 15 ng/L (0-10) H 11/16/22 13:10 Troponin T 120 Minute 13.15 ng/L (0-10) H 11/16/22 15:00 Delta Troponin T -1.85 ABS# (0-10) L 11/16/22 15:00 Troponin T Hi Sens 6Hr 14.11 ng/L (0-10) H 11/16/22 19:33 Troponin T Hi Sens 6Hr Delta -0.89 ng/L (0-12) L 11/16/22 19:33 NT-Pro-B Natriuret Pep 4407 pg/mL (0-125) H 11/16/22 15:00 Total Protein 6.5 g/dL (6.6-8.7) L 11/16/22 10:39 Albumin 4.2 g/dL (3.5-5.2) 11/16/22 10:39 Globulin 2.3 g/dL (1.3-4.6) 11/16/22 10:39 TSH 5.72 uIU/mL (0.27-4.20) H 11/16/22 16:08 Free T4 1.23 ng/dL (0.82-1.77) 11/17/22 02:42 Urine Color Yellow (Yellow) 11/16/22 12:20 Urine Appearance Clear (CLEAR) 11/16/22 12:20 Urine pH 5 (5-7) 11/16/22 12:20 Ur Specific [place] 1.020 (1.005-1.030) 11/16/22 12:20 Urine Protein Neg (Negative) 11/16/22 12:20 Urine Glucose (UA) Norm (Normal) 11/16/22 12:20 Urine Ketones Negative (Negative) 11/16/22 12:20 Urine Blood Neg (Negative) 11/16/22 12:20 Urine Nitrate Negative (Negative) 11/16/22 12:20 Urine Bilirubin Neg (Negative) 11/16/22 12:20 Urine Urobilinogen Neg mg/dL (Negative) 11/16/22 12:20 Ur Leukocyte Esterase Trace (Negative) H 11/16/22 12:20 Urine RBC 0-4 /hpf (0-2) H 11/16/22 12:20 Urine WBC 5-10 /hpf (0-5) H 11/16/22 12:20 Ur Squamous Epith Cells None /hpf (0-5) 11/16/22 12:20 Amorphous Sediment Not Reportable 11/16/22 12:20 Urine Bacteria None /hpf (NONE) 11/16/22 12:20 Hepatitis A IgM Ab Non-reactive (Nonreactive) 11/16/22 10:39 Hep Bs Antigen Non-reactive (Nonreactive) 11/16/22 10:39 Hep B Core IgM Ab Non-reactive (Nonreactive) 11/16/22 10:39 Hepatitis C Antibody Non-reactive (Nonreactive) 11/16/22 10:39 HIV 1&2 Ab & HIV 1 Ag Non-reactive (Non-Reactiv) 11/16/22 10:39 HIV 1&2 Antibody Non-reactive (Non-Reactiv) 11/16/22 10:39 Vitals Last Vital Signs Temp 98.6 F 11/17/22 07:22 Pulse 93 11/17/22 08:15 Resp 18 11/17/22 08:15 BP 111/72 11/17/22 07:22 Pulse Ox 92 11/17/22 08:15 O2 Del Method 11/17/22 08:15 Discharge Plan Discharge Patient Disposition: Home Condition: Stable Prescriptions: New potassium chloride 10 mEq tablet extended release 10 meq PO DAILY Qty: 5 0RF magnesium 200 mg tablet 200 mg PO DAILY Qty: 10 0RF Continued citalopram [Celexa] 40 mg tablet 40 mg PO QPM zolpidem 10 mg tablet 10 mg PO BEDTIME aspirin [Adult Low Dose Aspirin] 81 mg tablet,delayed release (DR/EC) 162 mg PO QAM Hold Instructions: Resume on 10/19/22. Until after percutaneous tube placed in the left kidney carvedilol 6.25 mg tablet 6.25 mg PO BID Qty: 180 2RF Rx Instructions: must administer with a meal/food sacubitril-valsartan 97-103 mg tablet 1 tab PO BID Qty: 120 3RF Hold Instructions: Resume on 10/09/22. Vitamin B-12 50 mcg Tablet 50 mcg PO QAM montelukast 10 mg tablet 10 mg PO QAM gabapentin 100 mg Capsule 200 mg PO TID Qty: 180 0RF capsaicin 0.025 % Cream 1 applic topical QID PRN (Reason: Pain) Qty: 60 0RF acetaminophen 500 mg Tablet 1,000 mg PO Q6H PRN (Reason: Pain) omeprazole 20 mg capsule,delayed release(DR/EC) 20 mg PO BID nitroglycerin [Nitrostat] 0.4 mg Tablet, Sublingual 0.4 mg SUBLINGUAL Q5M PRN (Reason: Chest Pain) Rx Instructions: do not exceed 3 doses per episode albuterol sulfate 90 mcg/actuation HFA aerosol inhaler 2 puff INHALATION QID PRN (Reason: Shortness Of Breath) ondansetron 4 mg tablet,disintegrating 4 mg PO Q6H PRN (Reason: Nausea) potassium chloride 20 mEq tablet extended release 40 meq PO DAILY@14 hydrocodone-acetaminophen 5-325 mg tablet 1 tab PO Q6H PRN (Reason: pain) Qty: 25 0RF ciprofloxacin HCl [Cipro] 500 mg tablet 500 mg PO BID Qty: 20 0RF Changed furosemide [Lasix] 40 mg tablet 40 mg PO DAILY 30 Days Qty: 30 0RF Discharge Orders: Discharge Order (Routine); Ordered 11/17/22 Ordered By: Sima Gonzales Referrals: Mavis Peterson PA [Physician] - Sil Pineda MD [Physician] - 1 week Patient Instructions: Opioid Safety Discharge Attestations Time Spent in Discharge Care*: less than 30 min Quality Metrics Clinical Quality Measures [ No reported AMI, CVA or VTE this stay] Coding Level of Care Code Acute Code for Chg Fwd Diagnoses AICD discharge Z45.02 Nonischemic cardiomyopathy I42.8 ICD (implantable cardioverter-defibrillator) in place Z95.810 HTN (hypertension) I10 Hypertension type: essential hypertension Liver mass R16.0 Syncope R55 Hypokalemia E87.6
--- NOTE | 2022-11-17 10:30 | P.PN_ITS ---
Subjective Subjective: Patient c/o tightness in between her shoulder blades and some in her chest. No worsening of symptoms with ambulation. Medications: Reviewed: Yes Vitals/I&O/Wt Last Vital Signs Temp 98.6 F 11/17/22 07:22 Pulse 93 11/17/22 08:15 Resp 18 11/17/22 08:15 BP 111/72 11/17/22 07:22 Pulse Ox 92 11/17/22 08:15 O2 Del Method 11/17/22 08:15 11/16/22 11/17/22 11/17/22 22:59 06:59 14:59 Intake Total 1332.916 / 1332.916 480 / 1812.916 240 / 240 Balance 1332.916 / 1332.916 480 / 1812.916 240 / 240 Weight last 48 hrs Weight 154 lb 6 oz Weight 160 lb Physical Exam Narrative: Gen: NAD, obese woman laying in bed NeCK: No JVD appreciated HEENT: No pallor, EOMI, No lymphadenopathy RS: CTAB/L except at bases. No reproducible chest wall tenderness CVS: S1, S2, regular; No murmur, rub or gallop appreciated on exam, ICD in situ EXt: No edemal, cyanosis PA: soft, obese, NTND PATTERN CARRIER: AAOx3, No FND Data 11/17/22 02:42 11/17/22 02:42 A&P Assessment and plan (1) AICD discharge: ICD interrogation shows 2 episodes of VT/VF. 1st on 2nd Feb that lasted 33 seconds with avg V rate of 273 with 2 shocks 35J x2 2nd on 8th Feb that lasted 19 seconds with avg V rate of 207 for which she got ATPx1 followed by shock, 35 Jx1. -replace potassium. Mg=2.1 -continue beta blockers In case potassium and magnesium are in acceptable range and patient feels well, may be discharged later this evening -f/u with Desire in 1 week for ICD check, BMP and Mag check. (2) Syncope: Possible syncopal episode prior to arrival orthostatic + -lasix held, no presyncopal/syncopal episode in hospital. No arrhythmias reported (3) Nonischemic cardiomyopathy: HFrEF -continue coreg and resume entresto on discharge -lasix resume at 20 mg daily with additional 20 mg PRN (4) ICD (implantable cardioverter-defibrillator) in place: Plan Mitral Regurgitation: ELIZA shows mild to moderate MR. Recurrent renal stone Liver Mass Pleural effusion JEOVANNY Thank you for allowing me to participate in patient's care. Please feel free to call with questions or concerns. Patient seen today via Telehealth by agreement and consent of patient. Telehealth technology used during the visit include video and audio. Exam was conducted with the help of bedside nurse. Time spent in encounter 30 minutes with >50% time spent face to face. Attestations Medical Necessity Statement*: As per primary team Coding Level of Care Code 25797 Diagnoses AICD discharge Z45.02 Syncope R55 Nonischemic cardiomyopathy I42.8 ICD (implantable cardioverter-defibrillator) in place Z95.810
--- NOTE | 2022-11-17 10:38 | PC.CHAP ---
Pastoral Care Encounter/Spiritual Assessment Type of Contact [] Declined talking books library clerk visit [] Patient/Family/Request visit [] Outpatient visit [] Follow-up visit [] Physician referral [] Code/Alert [x] Routine visit [] Staff referral [] Actively dying [] Patient sleeping [] Family support [] [] Out of room [] Palliative care [] [x] Receiving care in room [] Pre-surgical visit [] Trauma [] Long length of stay [] ICU visit [] Other: Relational/Emotional Strength [x] Patient feels connected with others/family/visitors/staff [] Distress [] Loneliness/isolation [] Abandonment Spirituality of Patient [x] Person of Capri [] Attends Jehovah'S Witness of their Capri [x] Believes in Prayer [] Reads Bible or Episcopalian materials [] There are Spiritual issues to be addressed Solution Director Interventions [x] Prayer [x] Active listening [x] Non-anxious presence [x] Spiritual/emotional support [] Crisis/trauma care [x] Spiritual counseling [] Bereavement support [] Provided bereavement packet [] Provided Bible/devotional materials [] Provided toy/stuffed animal, coloring book to patient or family member [] Provided Communion [] Anointing/Cascade [] Salvation [x] Completed spiritual assessment [] Other: Impact on Illness or Injury [] Angry [] Fearful [x] Anxious [] Often cries [] Exhaustion [x] Unable to work [] Unable to attend roman catholic [] Unable to walk/stand [] Unable to read [] Unable to drive [] Unable to eat/drink [] Unable to sleep [] Unable to be with family [] Patient intubated [] Other: Summary senior guillermo on heart doesn't know about her health will roberto some recovery time has a good attitude wellgo home Time spent with patient 10 mins
[2022-11-17 13:52] LABS: Anion Gap 14.8 (5-19); Blood Urea Nitrogen 20 mg/dL (6-20); Carbon Dioxide 26 mmol/L (22-29); Chloride 101 mmol/L (98-107); Glomerular Filtration Rate 52.2 mL/min (90-130); Glucose 111 mg/dL (65-115); Osmolality Calculated 289 mOsm/kg (285-295); Potassium 3.8 mmol/L (3.5-5.1); Sodium 138 mmol/L (136-145)
[2022-11-17 15:28] LABS: Anion Gap 14.1 (5-19); Blood Urea Nitrogen 18 mg/dL (6-20); Calcium 8.9 mg/dL (8.5-10.5); Carbon Dioxide 26 mmol/L (22-29); Chloride 101 mmol/L (98-107); Glomerular Filtration Rate 47.2 mL/min (90-130); Glucose 112 mg/dL (65-115); Magnesium 2.4 mg/dL (1.7-2.3); Osmolality Calculated 287 mOsm/kg (285-295); Potassium 4.1 mmol/L (3.5-5.1); Sodium 137 mmol/L (136-145)
== END 2022-11-17 16:38 | disposition home or self-care (01) ==
LOC: ER 10:18 → CSU 15:01
PROVIDERS: Internal Medicine Cardiovascular Disease; Admitting Provider Internal Medicine; Emergency Provider Family Medicine; PCP Family Medicine; Visit Provider Internal Medicine
DX: Z45.02 Encounter for adjustment and management of automatic implantable cardiac defibrillator (principal); I42.8 Other cardiomyopathies; Z95.810 Presence of automatic (implantable) cardiac defibrillator; R16.0 Hepatomegaly, not elsewhere classified; R55 Syncope and collapse; E87.6 Hypokalemia; N20.0 Calculus of kidney; J90 Pleural effusion, not elsewhere classified; G47.33 Obstructive sleep apnea (adult) (pediatric); I11.0 Hypertensive heart disease with heart failure; I50.20 Unspecified systolic (congestive) heart failure; Z86.73 Personal history of transient ischemic attack (TIA), and cerebral infarction without residual deficits; F17.210 Nicotine dependence, cigarettes, uncomplicated; Z79.82 Long term (current) use of aspirin
CPT/HCPCS: 36415; 71045; 80048; 80053; 80074; 81001; 83735; 83880; 84100; 84132; 84439; 84443; 84484; 85025; 85378; 87806; 93005; 96365; 96366; 96372; 99285; A9270; G0378; J1644; J2405; J3475; J3480; J7030

== ENCOUNTER 2022-11-21 07:30 | Emergency (ER) | payer MEDICARE, MEDICAID, SELFPAY ==
[2022-11-21 07:31] VITALS: BP 141/89; PULSE 78; RESP 18; O2SAT 99
--- NOTE | 2022-11-21 07:43 | XR_ITS ---
WS: [id number] PORTABLE CHEST HISTORY: chest pain COMPARISON: 11/16/2022 LEFT subclavian cardiac defibrillator unchanged in position. Lungs are clear and well expanded. No pleural effusion or pneumothorax. Cardiac size: Mildly enlarged cardiac silhouette. Mediastinum/Aorta: Normal mediastinum. No osseous abnormality seen. XR/XR chest 1V portable [id number] IMPRESSION: 1. No pneumonia or persistent reticular opacifications in the RIGHT lower lobe . 2. Mild cardiomegaly.
--- NOTE | 2022-11-21 07:44 | ECG_ITS ---
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 Measurements Intervals [place] Rate: 80 P: 48 OR: 161 QRS: -40 QRSD: 133 T: 2 QT: 444 QTc: 512 Interpretive Statements SINUS RHYTHM LEFT AXIS DEVIATION [QRS AXIS < -30] INTRAVENTRICULAR CONDUCTION DELAY [130+ ms QRS DURATION] POSSIBLE ANTERIOR MYOCARDIAL INFARCTION , PROBABLY OLD [30 ms Q WAVE IN V3/V4, OR R < 0.2 mV IN V4] Compared to ECG 11/16/2022 19:29:47 Myocardial infarct finding now present Left ventricular hypertrophy no longer present ST (T wave) deviation no longer present Electronically Signed On 11-21-2022 11:19:30 TAPPER SHANK by Pola Ferrera M.D. [id number]
--- NOTE | 2022-11-21 07:45 | W.ED.CHESTPA ---
HPI - Chest Pain General: Chief Complaint: Chest Pain Stated Complaint: chest pain Time Seen by Provider: 11/21/22 07:32 History of Present Illness: Patient comes in with chest pain. She states it started last night. She describes it as right-sided, sharp, worse with movement. Denies any trauma, or physical activity that may have injured her chest wall. She denies fever, productive cough, congestion. States she has had a nonproductive cough off and on for the last couple of months. Associated symptoms: Deny abdominal pain, dyspnea, fever(s), nausea, palpitations or vomiting Review of Systems Const: Denies: fever(s) or body aches Eyes: Denies: change in vision or blurry vision ENMT: Denies: throat pain or odynophagia Card: Reports: chest pain; Denies: palpitations Resp: Denies: dyspnea or productive cough GI: Denies: abdominal pain, nausea or vomiting : Denies: flank pain or dysuria Musc: Denies: neck pain or back pain Skin/Breast: Denies: rash or pruritus Neuro: Denies: headache(s) or numbness in extremities Psych: Denies: anxiety or change in appetite Endo: Denies: polyuria or excessive sweating PFSH ED PFSH: Medical History CHF (congestive heart failure) Related to nonischemic cardiomyopathy, most recent ejection fraction with with EF 42%. History of recurrent UTIs History of TIA (transient ischemic attack) HTN (hypertension) ICD (implantable cardioverter-defibrillator) in place Mass of right lobe of liver ~3.5 x 4 cm, indeterminant, hypodense, first noted 11/2021 Nonischemic cardiomyopathy Specific etiology unknown, may have been viral or related to uncontrolled hypertension from her recollection Echocardiogram November 2021 with ejection fraction of 42% - 05/17/22 echo EF now 25% Obstructive pyelonephritis (~11/2021) Urolithiasis Multi stone former. Complicated by at least 1 episode of obstructive pyelonephritis. Multiple procedures required to treat Surgical History S/P ureteral stent placement (~11/2021) Status post cholecystectomy Status post placement of cardiac pacemaker Family History Father , AT AGE 77 CAD (coronary artery disease) Cancer lung cancer Mother , AT AGE 60 Cancer OVARIAN Denies family history of Clotting disorder Anesthesia complication Bleeding disorder Social History Smoking and tobacco status: current every day smoker cigarettes Packs smoked per day: 0.5 Years cigarettes smoked: 45 Second hand smoke exposure: Yes Alcohol intake: current Lives independently: Yes Marital status: service: No Current occupational status: disabled Current gender identity: Female Physical Exam Const: COMMON NORMALS: no acute distress, patient oriented x3, healthy appearing and alert HENMT: COMMON NORMALS: normocephalic and atraumatic HEAD & SCALP: normocephalic and atraumatic Eye: COMMON NORMALS: Equal, round and reactive pupils present and EOMs intact bilaterally PUPIL: Yes Equal, round and reactive pupils present Neck/C-Spine: COMMON NORMALS: full ROM and supple Chest: OTHER: Right sided chest wall tenderness to palpation Resp: COMMON NORMALS: normal respiratory effort, No retractions and No use of accessory muscles Cardio: COMMON NORMALS: regular rate and regular rhythm RATE: regular rate RHYTHM: regular rhythm GI: COMMON NORMALS: Normal to inspection, nondistended, normoactive bowel sounds present, Soft to palpation and non-tender PALPATION: Yes Soft to palpation Back/Pelvis: COMMON NORMALS: no thoracic nor lumbar tenderness OTHER: Nephrostomy tube in the left flank Extremity: COMMON NORMALS: normal to inspection and full ROM Neuro: COMMON NORMALS: patient oriented x3 SENSORIUM/ORIENTATION: Yes alert Psych: COMMON NORMALS: mental status grossly normal and cooperative Skin: COMMON NORMALS: no rashes or lesions noted and no wounds GENERAL SKIN EXAM: no rashes or lesions noted Course Vital Signs: Vital signs: Vital Signs Pulse Rate 78 11/21/22 07:31 Respiratory Rate 18 11/21/22 07:31 Blood Pressure 141/89 11/21/22 07:31 Pulse Oximetry 99 11/21/22 07:31 Oxygen Delivery Me thod 11/21/22 07:31 MDM - Chest Pain Medical Decision Making Patient comes in with chest pain. She states it started last night. She describes it as right-sided, sharp, worse with movement. Denies any trauma, or physical activity that may have injured her chest wall. She denies fever, productive cough, congestion. States she has had a nonproductive cough off and on for the last couple of months. On physical exam she has right chest wall tenderness to palpation. Will check labs, x-ray, treat pain with p.o. Tylenol, and reassess. On reassessment I talked to the patient about the test results. Will encourage anti-inflammatories, and discharge with precautions to return for worsening or changing symptoms. Lab Data 11/21/22 07:44 11/21/22 07:44 Radiology Impressions Chest X-Ray 11/21/22 07:43 IMPRESSION: 1. No pneumonia or persistent reticular opacifications in the RIGHT lower lobe. 2. Mild cardiomegaly. Laboratory Results WBC 6.3 10^3/uL (4.0-10.0) 11/21/22 07:44 RBC 3.14 10^6/uL (4.1-5.3) L 11/21/22 07:44 Hgb 10.8 g/dL (11.5-15.3) L 11/21/22 07:44 Hct 33.5 % (37.0-47.0) L 11/21/22 07:44 MCV 106.7 fl (81-99) H 11/21/22 07:44 MCH 34.4 pg (28.0-34.0) H 11/21/22 07:44 MCHC 32.2 g/dL (30.0-36.0) 11/21/22 07:44 RDW 13.0 % (12.1-15.1) 11/21/22 07:44 Plt Count 171 10^3/cmm (130-400) 11/21/22 07:44 MPV 11.1 fL (7.4-10.4) H 11/21/22 07:44 Neut % (Auto) 60.4 % 11/21/22 07:44 Lymph % (Auto) 27.1 % 11/21/22 07:44 [place] % (Auto) 7.5 % 11/21/22 07:44 Eos % (Auto) 3.2 % 11/21/22 07:44 Baso % (Auto) 1.3 % 11/21/22 07:44 Neut # (Auto) 3.80 10^3/uL (1.8-7.7) 11/21/22 07:44 Lymph # (Auto) 1.7 10^3/uL (0.8-4.8) 11/21/22 07:44 [place] # (Auto) 0.5 10^3/uL (0.2-0.9) 11/21/22 07:44 Eos # (Auto) 0.2 10^3/uL (0.0-0.8) 11/21/22 07:44 Baso # (Auto) 0.1 10^3/uL (0.0-0.1) 11/21/22 07:44 Nucleated RBC % (auto) 0 % 11/21/22 07:44 Nucleated RBCs # 0.0 /100WBC 11/21/22 07:44 Sodium 139 mmol/L (136-145) 11/21/22 07:44 Potassium 3.8 mmol/L (3.5-5.1) 11/21/22 07:44 Chloride 104 mmol/L (98-107) 11/21/22 07:44 Carbon Dioxide 23 mmol/L (22-29) 11/21/22 07:44 Anion Gap 15.8 (5-19) 11/21/22 07:44 BUN 18 mg/dL (6-20) 11/21/22 07:44 Creatinine 1.2 mg/dL (0.5-0.9) H 11/21/22 07:44 GFR Calculation 47.2 mL/min (90-130) L 11/21/22 07:44 Glucose 93 mg/dL (65-115) 11/21/22 07:44 Calculated Osmolality 290 mOsm/kg (285-295) 11/21/22 07:44 Calcium 8.7 mg/dL (8.5-10.5) 11/21/22 07:44 Total Bilirubin 0.4 mg/dL (0.15-1.2) 11/21/22 07:44 AST 12 U/L (0-32) 11/21/22 07:44 ALT 11 U/L (0-33) 11/21/22 07:44 Alkaline Phosphatase 90 U/L (35-105) 11/21/22 07:44 Troponin T Baseline 11 ng/L (0-10) H 11/21/22 07:44 Total Protein 5.5 g/dL (6.6-8.7) L 11/21/22 07:44 Albumin 3.8 g/dL (3.5-5.2) 11/21/22 07:44 Globulin 1.7 g/dL (1.3-4.6) 11/21/22 07:44 Discharge Plan Discharge Patient Disposition: Home Clinical Impression: Nonspecific chest pain Condition: Stable Prescriptions: No Action citalopram [Celexa] 40 mg tablet 40 mg PO QPM zolpidem 10 mg tablet 10 mg PO BEDTIME aspirin [Adult Low Dose Aspirin] 81 mg tablet,delayed release (DR/EC) 162 mg PO QAM Hold Instructions: Resume on 10/19/22. Until after percutaneous tube placed in the left kidney carvedilol 6.25 mg tablet 6.25 mg PO BID Qty: 180 2RF Rx Instructions: must administer with a meal/food sacubitril-valsartan 97-103 mg tablet 1 tab PO BID Qty: 120 3RF Hold Instructions: Resume on 10/09/22. Vitamin B-12 50 mcg Tablet 50 mcg PO QAM montelukast 10 mg tablet 10 mg PO QAM potassium chloride 10 mEq tablet extended release 10 meq PO DAILY Qty: 5 0RF Lasix 40 mg tablet 40 mg PO DAILY 30 Days Qty: 30 0RF magnesium 200 mg tablet 200 mg PO DAILY Qty: 10 0RF gabapentin 100 mg Capsule 200 mg PO TID Qty: 180 0RF capsaicin 0.025 % Cream 1 applic topical QID PRN (Reason: Pain) Qty: 60 0RF acetaminophen 500 mg Tablet 1,000 mg PO Q6H PRN (Reason: Pain) omeprazole 20 mg capsule,delayed release(DR/EC) 20 mg PO BID nitroglycerin [Nitrostat] 0.4 mg Tablet, Sublingual 0.4 mg SUBLINGUAL Q5M PRN (Reason: Chest Pain) Rx Instructions: do not exceed 3 doses per episode albuterol sulfate 90 mcg/actuation HFA aerosol inhaler 2 puff INHALATION QID PRN (Reason: Shortness Of Breath) ondansetron 4 mg tablet,disintegrating 4 mg PO Q6H PRN (Reason: Nausea) potassium chloride 20 mEq tablet extended release 40 meq PO DAILY@14 hydrocodone-acetaminophen 5-325 mg tablet 1 tab PO Q6H PRN (Reason: pain) Qty: 25 0RF ciprofloxacin HCl [Cipro] 500 mg tablet 500 mg PO BID Qty: 20 0RF Discharge Orders: Discharge ED (Routine); Ordered 11/21/22 Ordered By: Cortez Miranda Referrals: Ferny Peterson MD [Primary Care Provider] - Patient Instructions: Chest Pain (ED) Coding Level of Care Code ED Donkey Engine Firer/Fireman for Wesley Herrera
[2022-11-21 07:53] LABS: Basophils # 0.1 10^3/uL (0.0-0.1); Basophils % 1.3 %; Eosinophils # 0.2 10^3/uL (0.0-0.8); Eosinophils % 3.2 %; Hematocrit 33.5 % (37.0-47.0); Hemoglobin 10.8 g/dL (11.5-15.3); Lymphocytes # 1.7 10^3/uL (0.8-4.8); Lymphocytes % 27.1 %; Mean Corpuscular HGB Conc 32.2 g/dL (30.0-36.0); Mean Corpuscular Hemoglobin 34.4 pg (28.0-34.0); Mean Corpuscular Volume 106.7 fl (81-99); Mean Platelet Volume 11.1 fL (7.4-10.4); Monocytes # 0.5 10^3/uL (0.2-0.9); Monocytes % 7.5 %; Neutrophils % 60.4 %; Nucleated Red Blood Cells % 0 %; Platelet Count 171 10^3/cmm (130-400); Red Blood Count 3.14 10^6/uL (4.1-5.3); White Blood Count 6.3 10^3/uL (4.0-10.0)
[2022-11-21] MEDS: acetaminophen 325 mg Tablet 650 MG PO (07:53)
[2022-11-21] MEDS: ondansetron 2 mg/ML SDV 2 mL 4 MG IVP (08:04)
[2022-11-21 08:20] LABS: Alanine Aminotransferase 11 U/L (0-33); Albumin Level 3.8 g/dL (3.5-5.2); Alkaline Phosphatase 90 U/L (35-105); Anion Gap 15.8 (5-19); Aspartate Amino Transferase 12 U/L (0-32); Blood Urea Nitrogen 18 mg/dL (6-20); Calcium 8.7 mg/dL (8.5-10.5); Carbon Dioxide 23 mmol/L (22-29); Chloride 104 mmol/L (98-107); Globulin 1.7 g/dL (1.3-4.6); Glomerular Filtration Rate 47.2 mL/min (90-130); Glucose 93 mg/dL (65-115); Osmolality Calculated 290 mOsm/kg (285-295); Potassium 3.8 mmol/L (3.5-5.1); Sodium 139 mmol/L (136-145); Total Bilirubin 0.4 mg/dL (0.15-1.2); Total Protein 5.5 g/dL (6.6-8.7)
[2022-11-21 08:21] LABS: Troponin(5th) Baseline 11 ng/L (0-10)
[2022-11-21 08:39] VITALS: BP 107/71; PULSE 89; RESP 21; O2SAT 98
[2022-11-21 08:40] VITALS: BP 107/71; PULSE 89; RESP 21; O2SAT 98
== END 2022-11-21 08:44 | disposition home or self-care (01) ==
PROVIDERS: Emergency Provider Emergency Medicine; PCP Family Medicine
DX: R07.9 Chest pain, unspecified (principal); Z79.82 Long term (current) use of aspirin; F17.210 Nicotine dependence, cigarettes, uncomplicated; I11.0 Hypertensive heart disease with heart failure; I50.9 Heart failure, unspecified; Z86.73 Personal history of transient ischemic attack (TIA), and cerebral infarction without residual deficits; Z95.810 Presence of automatic (implantable) cardiac defibrillator
CPT/HCPCS: 71045; 80053; 84484; 85025; 93005; 96374; 99285; J2405

== ENCOUNTER 2022-11-23 19:10 | Emergency (ER) | payer MEDICARE, MEDICAID, SELFPAY ==
[2022-11-23] VITALS (9 sets, daily range): BP systolic 106–138; BP diastolic 76–91; PULSE 90–107; RESP 12–22; TEMP 36.9; O2SAT 91–97; BMI 26.6
--- NOTE | 2022-11-23 19:11 | XRR_ITS ---
PROCEDURE INFORMATION: Exam: XR Chest Exam date and time: 11/23/2022 7:21 PM Age: 52 years old Clinical indication: Pain; Chest pressure; Prior surgery; Additional info: Cp, nausea, vomiting, SOB, clamy, cp in center of chest TECHNIQUE: Imaging protocol: Radiologic exam of the chest. Views: 1 view. COMPARISON: CR XR chest 1V portable [id number] 11/21/2022 7:47 AM FINDINGS: Tubes, catheters and devices: A left chest single lead defibrillator is unchanged. Lungs: The lungs are clear. Pleural spaces: Unremarkable. No pleural effusion. No pneumothorax. Heart/Mediastinum: The heart size is unchanged. Bones/joints: Unremarkable. XR/XR chest 1V portable [id number] IMPRESSION: 1. No change, lungs clear 2. Defibrillator
--- NOTE | 2022-11-23 19:16 | W.ED.CHESTPA ---
HPI - Chest Pain General: Chief Complaint: Chest Pain Stated Complaint: CHEST PAIN Time Seen by Provider: 11/23/22 19:12 Source: patient and EMS Mode of arrival: EMS Limitations: no limitations History of Present Illness: 52-year-old female is very well-known to the ER she has been here multiple times with chest pain. He states she had sudden onset of sharp chest pain roughly an hour ago states the pain is an 8 out of 10 in the center of her chest she denies any shortness of breath no diaphoresis denies any worsening improving factors. Associated symptoms: Deny abdominal pain, dyspnea, fever(s), nausea or vomiting Review of Systems Const: Denies: fever(s), chills, body aches or change in appetite Eyes: Denies: blurry vision or eye discomfort ENMT: Denies: throat pain or dental pain Card: Reports: chest pain Resp: Denies: dyspnea GI: Denies: abdominal pain, nausea, vomiting or diarrhea : Denies: dysuria Musc: Denies: neck pain or back pain Skin/Breast: Denies: rash Neuro: Denies: headache(s) Psych: Denies: depression Cedric/Lymph: Denies: easy bruising All/Imm: Denies: urticaria PFSH ED PFSH: Medical History AICD discharge CHF (congestive heart failure) Related to nonischemic cardiomyopathy, most recent ejection fraction with with EF 42%. History of recurrent UTIs History of TIA (transient ischemic attack) HTN (hypertension) Hypokalemia ICD (implantable cardioverter-defibrillator) in place Liver mass Mass of right lobe of liver ~3.5 x 4 cm, indeterminant, hypodense, first noted 11/2021 Nonischemic cardiomyopathy Specific etiology unknown, may have been viral or related to uncontrolled hypertension from her recollection Echocardiogram November 2021 with ejection fraction of 42% - 05/17/22 echo EF now 25% Obstructive pyelonephritis (~11/2021) Syncope Urolithiasis Multi stone former. Complicated by at least 1 episode of obstructive pyelonephritis. Multiple procedures required to treat Surgical History S/P ureteral stent placement (~11/2021) Status post cholecystectomy Status post placement of cardiac pacemaker Family History Father , AT AGE 77 CAD (coronary artery disease) Cancer lung cancer Mother , AT AGE 60 Cancer OVARIAN Denies family history of Clotting disorder Anesthesia complication Bleeding disorder Social History Smoking and tobacco status: current every day smoker cigarettes Packs smoked per day: 0.5 Years cigarettes smoked: 45 Second hand smoke exposure: Yes Alcohol intake: current Lives independently: Yes Marital status: service: No Current occupational status: disabled Current gender identity: Female Physical Exam Const: COMMON NORMALS: no acute distress, patient oriented x3 and healthy appearing HENMT: COMMON NORMALS: normocephalic and atraumatic HEAD & SCALP: normocephalic and atraumatic Eye: COMMON NORMALS: Equal, round and reactive pupils present and EOMs intact bilaterally PUPIL: Yes Equal, round and reactive pupils present Neck/C-Spine: COMMON NORMALS: full ROM and supple Chest: COMMONS NORMALS: normal inspection of the chest and normal palpation of entire chest wall Resp: COMMON NORMALS: normal respiratory effort, No retractions, No use of accessory muscles and clear to auscultation bilaterally AUSCULTATION: clear to auscultation bilaterally Cardio: COMMON NORMALS: regular rate, regular rhythm and No murmurs present (Cardio) RATE: regular rate RHYTHM: regular rhythm GI: COMMON NORMALS: Normal to inspection, nondistended, normoactive bowel sounds present, Soft to palpation, non-tender and no masses PALPATION: Yes Soft to palpation Extremity: COMMON NORMALS: normal to inspection and full ROM Neuro: COMMON NORMALS: patient oriented x3, moves all extremities and no focal motor deficits Psych: COMMON NORMALS: mental status grossly normal, Normal thought process present and cooperative THOUGHT PROCESS: Normal thought process present Skin: COMMON NORMALS: no rashes or lesions noted and no wounds GENERAL SKIN EXAM: no rashes or lesions noted Course Vital Signs: Vital signs: Vital Signs Temperature 98.5 F 11/23/22 19:16 Pulse Rate 92 11/23/22 22:00 Respiratory Rate 15 11/23/22 22:00 Blood Pressure 122/79 11/23/22 22:00 Pulse Oximetry 96 11/23/22 20:30 Oxygen Delivery Me thod 11/23/22 19:20 MDM - Chest Pain Medical Decision Making Patient presents here with chest pain that is atypical in nature her initial repeat troponin are negative she is well-appearing here she is stable for discharge she is to follow-up with PCP and return if worsening she understands agrees to plan. Lab Data 11/23/22 19:26 11/23/22 19:26 Radiology Impressions Chest X-Ray 11/23/22 19:11 IMPRESSION: 1. No change, lungs clear 2. Defibrillator Laboratory Results WBC 7.4 10^3/uL (4.0-10.0) 11/23/22 19: RBC 2.99 10^6/uL (4.1-5.3) L 11/23/22 19: Hgb 10.3 g/dL (11.5-15.3) L 11/23/22 19: Hct 32.1 % (37.0-47.0) L 11/23/22 19: MCV 107.4 fl (81-99) H 11/23/22 19: MCH 34.4 pg (28.0-34.0) H 11/23/22 19: MCHC 32.1 g/dL (30.0-36.0) 11/23/22 19: RDW 13.1 % (12.1-15.1) 11/23/22 19: Plt Count 163 10^3/cmm (130-400) 11/23/22 19: MPV 11.5 fL (7.4-10.4) H 11/23/22 19: Neut % (Auto) 65.8 % 11/23/22 19: Lymph % (Auto) 25.8 % 11/23/22 19: [place] % (Auto) 5.4 % 11/23/22: Eos % (Auto) 1.6 % 11/23/22: Baso % (Auto) 0.9 % 11/23/22: Neut # (Auto) 4.86 10^3/uL (1.8-7.7) 11/23/22 19: Lymph # (Auto) 1.9 10^3/uL (0.8-4.8) 02/15/23 19:26 [place] # (Auto) 0.4 10^3/uL (0.2-0.9) 11/23/22 19:26 Eos # (Auto) 0.1 10^3/uL (0.0-0.8) 11/23/22 19: Baso # (Auto) 0.1 10^3/uL (0.0-0.1) 11/23/22 19: Nucleated RBC % (auto) 0 % 11/23/22 19: Nucleated RBCs # 0.0 /100WBC 11/23/22 19:26 Sodium 141 mmol/L (136-145) 11/23/22 19:26 Potassium 3.8 mmol/L (3.5-5.1) 11/23/22 19: Chloride 108 mmol/L (98-107) H 11/23/22 19: Carbon Dioxide 21 mmol/L (22-29) L 11/23/22 19: Anion Gap 15.8 (5-19) 11/23/22 19: BUN 18 mg/dL (6-20) 11/23/22 19:26 Creatinine 1.1 mg/dL (0.5-0.9) H 11/23/22 19:26 GFR Calculation 52.2 mL/min (90-130) L 11/23/22 19: Glucose 82 mg/dL (65-115) 11/23/22 19: Calculated Osmolality 293 mOsm/kg (285-295) 11/23/22 19: Calcium 7.9 mg/dL (8.5-10.5) L 11/23/22 19: Total Bilirubin 0.4 mg/dL (0.15-1.2) 11/23/22 19: AST 26 U/L (0-32) 11/23/22 19: ALT 13 U/L (0-33) 11/23/22 19:26 Alkaline Phosphatase 86 U/L (35-105) 11/23/22 19:26 Troponin T Baseline 13 ng/L (0-10) H 11/23/22 19:26 Troponin T 120 Minute 15.84 ng/L (0-10) H 11/23/22 21:19 Delta Troponin T 2.84 ABS# (0-10) 11/23/22 21:19 Total Protein 5.1 g/dL (6.6-8.7) L 11/23/22 19:26 Albumin 3.1 g/dL (3.5-5.2) L 11/23/22 19:26 Globulin 2.0 g/dL (1.3-4.6) 11/23/22 19:26 Lipase 16 U/L (13-60) 11/23/22 19:26 EKG Data EKG 1: I personally reviewed and interpreted this EKG as follows: EKG interpretation date: 11/23/22 EKG interpretation time: 19:18 Interpretation: nsr hr [address] or t wave abnormalities qrs 134 qtc 470 EKG 2: I personally reviewed and interpreted this EKG as follows: EKG interpretation date: 11/23/22 EKG interpretation time: 20:51 Interpretation: nsr hr [address] or t wave abnormalities qrs 135 qtc 481 Discharge Plan Discharge Patient Disposition: Home Clinical Impression: Chest pain Condition: Stable Prescriptions: No Action citalopram [Celexa] 40 mg tablet 40 mg PO QPM zolpidem 10 mg tablet 10 mg PO BEDTIME aspirin [Adult Low Dose Aspirin] 81 mg tablet,delayed release (DR/EC) 162 mg PO QAM Hold Instructions: Resume on 10/19/22. Until after percutaneous tube placed in the left kidney carvedilol 6.25 mg tablet 6.25 mg PO BID Qty: 180 2RF Rx Instructions: must administer with a meal/food sacubitril-valsartan 97-103 mg tablet 1 tab PO BID Qty: 120 3RF Hold Instructions: Resume on 10/09/22. Vitamin B-12 50 mcg Tablet 50 mcg PO QAM montelukast 10 mg tablet 10 mg PO QAM potassium chloride 10 mEq tablet extended release 10 meq PO DAILY Qty: 5 0RF Lasix 40 mg tablet 40 mg PO DAILY 30 Days Qty: 30 0RF magnesium 200 mg tablet 200 mg PO DAILY Qty: 10 0RF gabapentin 100 mg Capsule 200 mg PO TID Qty: 180 0RF capsaicin 0.025 % Cream 1 applic topical QID PRN (Reason: Pain) Qty: 60 0RF acetaminophen 500 mg Tablet 1,000 mg PO Q6H PRN (Reason: Pain) omeprazole 20 mg capsule,delayed release(DR/EC) 20 mg PO BID nitroglycerin [Nitrostat] 0.4 mg Tablet, Sublingual 0.4 mg SUBLINGUAL Q5M PRN (Reason: Chest Pain) Rx Instructions: do not exceed 3 doses per episode albuterol sulfate 90 mcg/actuation HFA aerosol inhaler 2 puff INHALATION QID PRN (Reason: Shortness Of Breath) ondansetron 4 mg tablet,disintegrating 4 mg PO Q6H PRN (Reason: Nausea) potassium chloride 20 mEq tablet extended release 40 meq PO DAILY@14 hydrocodone-acetaminophen 5-325 mg tablet 1 tab PO Q6H PRN (Reason: pain) Qty: 25 0RF ciprofloxacin HCl [Cipro] 500 mg tablet 500 mg PO BID Qty: 20 0RF Discharge Orders: Discharge ED (Routine); Ordered 11/23/22 Ordered By: Marc Mora Referrals: Ferny ePterson MD [Primary Care Provider] - 1-3 days Discharge Diet: Advance as tolerated Discharge Activity: Resume usual activity Patient Instructions: Chest Pain (ED) Coding Level of Care Code ED Grinding Machine Tender for Wesley Herrera
--- NOTE | 2022-11-23 19:18 | ECG_ITS ---
[facility] Test Date: 2022-11-23 Pat Name: Elena Pulliam Department: Room: Gender: Female Freelance Designer: : [id number] Requested By: Marc Mora Order Number: [id number] Arlette MD: Sil Pineda M.D. Measurements Intervals [place] Rate: 93 P: 57 VT: 158 QRS: -42 QRSD: 134 T: 71 QT: 420 QTc: 523 Interpretive Statements SINUS RHYTHM LEFT AXIS DEVIATION [QRS AXIS < -30] INTRAVENTRICULAR CONDUCTION DELAY [130+ ms QRS DURATION] Compared to ECG 11/21/2022 07:37:07 Myocardial infarct finding no longer present Electronically Signed On 11-23-2022 20:55:43 AG EQUIPMENT FIELD SERVICE TECHNICIAN by Sil Pineda M.D. [email or web address]
[2022-11-23] MEDS: morphine 4 mg/mL SDV 1 mL IVP ×2 (19:34→21:32)
[2022-11-23 19:36] LABS: Basophils # 0.1 10^3/uL (0.0-0.1); Basophils % 0.9 %; Eosinophils # 0.1 10^3/uL (0.0-0.8); Eosinophils % 1.6 %; Hematocrit 32.1 % (37.0-47.0); Hemoglobin 10.3 g/dL (11.5-15.3); Lymphocytes # 1.9 10^3/uL (0.8-4.8); Lymphocytes % 25.8 %; Mean Corpuscular HGB Conc 32.1 g/dL (30.0-36.0); Mean Corpuscular Hemoglobin 34.4 pg (28.0-34.0); Mean Corpuscular Volume 107.4 fl (81-99); Mean Platelet Volume 11.5 fL (7.4-10.4); Monocytes # 0.4 10^3/uL (0.2-0.9); Monocytes % 5.4 %; Neutrophils # 4.86 10^3/uL (1.8-7.7); Neutrophils % 65.8 %; Nucleated Red Blood Cells % 0 %; Platelet Count 163 10^3/cmm (130-400); Red Blood Count 2.99 10^6/uL (4.1-5.3); Red Cell Distribution Width 13.1 % (12.1-15.1); White Blood Count 7.4 10^3/uL (4.0-10.0)
[2022-11-23 19:59] LABS: Troponin(5th) Baseline 13 ng/L (0-10)
[2022-11-23 20:01] LABS: Alanine Aminotransferase 13 U/L (0-33); Albumin Level 3.1 g/dL (3.5-5.2); Alkaline Phosphatase 86 U/L (35-105); Blood Urea Nitrogen 18 mg/dL (6-20); Calcium 7.9 mg/dL (8.5-10.5); Carbon Dioxide 21 mmol/L (22-29); Chloride 108 mmol/L (98-107); Glomerular Filtration Rate 52.2 mL/min (90-130); Glucose 82 mg/dL (65-115); Lipase 16 U/L (13-60); Osmolality Calculated 293 mOsm/kg (285-295); Sodium 141 mmol/L (136-145); Total Bilirubin 0.4 mg/dL (0.15-1.2); Total Protein 5.1 g/dL (6.6-8.7)
[2022-11-23] MEDS: diphenhydrAMINE 50 mg/mL SDV 1mL 25 MG IVP (20:05)
[2022-11-23 20:06] LABS: Creatinine Clr Calc Pharmacy 59.7172
[2022-11-23 20:07] LABS: Anion Gap 15.8 (5-19); Aspartate Amino Transferase 26 U/L (0-32); Potassium 3.8 mmol/L (3.5-5.1)
--- NOTE | 2022-11-23 21:11 | ECG_ITS ---
[facility] Test Date: 2022-11-23 Pat Name: Elena Pulliam Department: Room: Gender: Female Insurance Producer: : [id number] Requested By: Marc Mora Order Number: [id number] Arlette MD: Sil Pineda M.D. Measurements Intervals [place] Rate: 88 P: 38 AK: 159 QRS: -41 QRSD: 135 T: 70 QT: 435 QTc: 529 Interpretive Statements SINUS RHYTHM LEFT AXIS DEVIATION [QRS AXIS < -30] INTRAVENTRICULAR CONDUCTION DELAY [130+ ms QRS DURATION] LEFT VENTRICULAR HYPERTROPHY AND ST-T CHANGE [VOLTAGE CRITERIA PLUS ST/T ABNORMALITY] Compared to ECG 11/23/2022 19:18:21 Left ventricular hypertrophy now present ST (T wave) deviation now present Electronically Signed On 11-23-2022 21:00:57 LABORATORY AIDE by Sil Pineda M.D. [id number]
[2022-11-23 21:43] LABS: Troponin 5 2HR 15.84 ng/L (0-10)
[2022-11-23 21:44] LABS: Troponin 5 2HR Delta 2.84 ABS# (0-10)
== END 2022-11-23 22:25 | disposition home or self-care (01) ==
PROVIDERS: Emergency Provider Emergency Medicine; PCP Family Medicine
DX: R07.89 Other chest pain (principal)
CPT/HCPCS: 71045; 80053; 83690; 84484; 85025; 93005; 96374; 96375; 96376; 99285; J1200; J2270

== ENCOUNTER 2022-11-26 12:32 | Emergency (ER) | payer MEDICARE, MEDICAID, SELFPAY ==
[2022-11-26 12:36] VITALS: BP 98/61; PULSE 77; RESP 18; TEMP 36.6; O2SAT 98
[2022-11-26 13:16] LABS: Basophils # 0.1 10^3/uL (0.0-0.1); Basophils % 0.9 %; Eosinophils # 0.2 10^3/uL (0.0-0.8); Eosinophils % 3.1 %; Hematocrit 38.7 % (37.0-47.0); Hemoglobin 12.8 g/dL (11.5-15.3); Lymphocytes % 29.2 %; Mean Corpuscular HGB Conc 33.1 g/dL (30.0-36.0); Mean Corpuscular Hemoglobin 34.6 pg (28.0-34.0); Mean Corpuscular Volume 104.6 fl (81-99); Mean Platelet Volume 10.6 fL (7.4-10.4); Monocytes # 0.5 10^3/uL (0.2-0.9); Monocytes % 8.1 %; Neutrophils # 3.89 10^3/uL (1.8-7.7); Neutrophils % 58.4 %; Nucleated Red Blood Cells % 0 %; Platelet Count 195 10^3/cmm (130-400); Red Cell Distribution Width 12.8 % (12.1-15.1); White Blood Count 6.7 10^3/uL (4.0-10.0)
[2022-11-26 13:36] LABS: Anion Gap 16.7 (5-19); Blood Urea Nitrogen 16 mg/dL (6-20); Carbon Dioxide 23 mmol/L (22-29); Chloride 97 mmol/L (98-107); Glomerular Filtration Rate 47.2 mL/min (90-130); Glucose 88 mg/dL (65-115); Osmolality Calculated 277 mOsm/kg (285-295); Potassium 3.7 mmol/L (3.5-5.1); Sodium 133 mmol/L (136-145)
[2022-11-26 13:52] VITALS: BP 102/68; RESP 16; O2SAT 99
--- NOTE | 2022-11-26 13:52 | W.ED.GENADLT ---
HPI - General Adult General: Chief complaint: General Medical Stated complaint: port leaking Time Seen by Provider: 11/26/22 12:52 History of Present Illness: 50-year-old female with recent history of obstructing nephroliths as placement of nephrostomy tube 1 month ago by [facility]. States that she accidentally dislodged her left nephrostomy tube using her thumb and her bag has not been draining. She states furthermore that she has had leakage around the area. Denies fevers, sweats, chills, painful urination. She states that the flank pain she had when she had the nephrostomy tube placed and is not present today and she has minimal flank pain per baseline over the last month but no acute worsening. No nausea or vomiting. Associated symptoms: Deny chest pain, dyspnea, headache(s), nausea, rash or palpitations Review of Systems General: Reports: 10 or more systems reviewed and unremarkable except in HPI and below Const: Denies: fever(s), chills or body aches Eyes: Denies: change in vision or blurry vision ENMT: Denies: throat pain or uvular edema Card: Denies: chest pain or palpitations Resp: Denies: dyspnea or productive cough GI: Denies: abdominal pain or nausea : Reports: flank pain (Per baseline) Musc: Denies: neck pain or back pain Skin/Breast: Denies: rash or pruritus Neuro: Denies: headache(s) or numbness in extremities Endo: Denies: polyuria or polydipsia PFSH ED PFSH: Medical History AICD discharge CHF (congestive heart failure) Related to nonischemic cardiomyopathy, most recent ejection fraction with with EF 42%. History of recurrent UTIs History of TIA (transient ischemic attack) HTN (hypertension) Hypokalemia ICD (implantable cardioverter-defibrillator) in place Liver mass Mass of right lobe of liver ~3.5 x 4 cm, indeterminant, hypodense, first noted 11/2021 Nonischemic cardiomyopathy Specific etiology unknown, may have been viral or related to uncontrolled hypertension from her recollection Echocardiogram November 2021 with ejection fraction of 42% - 05/17/22 echo EF now 25% Obstructive pyelonephritis (~11/2021) Syncope Urolithiasis Multi stone former. Complicated by at least 1 episode of obstructive pyelonephritis. Multiple procedures required to treat Surgical History S/P ureteral stent placement (~11/2021) Status post cholecystectomy Status post placement of cardiac pacemaker Family History Father , AT AGE 77 CAD (coronary artery disease) Cancer lung cancer Mother , AT AGE 60 Cancer OVARIAN Denies family history of Clotting disorder Anesthesia complication Bleeding disorder Social History Smoking and tobacco status: current every day smoker cigarettes Packs smoked per day: 0.5 Years cigarettes smoked: 45 Second hand smoke exposure: Yes Alcohol intake: current Lives independently: Yes Marital status: service: No Current occupational status: disabled Current gender identity: Female Physical Exam Const: COMMON NORMALS: no acute distress and average body habitus HENMT: COMMON NORMALS: normocephalic and atraumatic HEAD & SCALP: normocephalic and atraumatic THROAT: no uvular edema Eye: COMMON NORMALS: Equal, round and reactive pupils present and EOMs intact bilaterally PUPIL: Yes Equal, round and reactive pupils present Neck/C-Spine: COMMON NORMALS: full ROM and no lymphadenopathy : BLADDER/KIDNEY EXAM: Yes CVA tenderness (Minimal CVA tenderness, flank without erythema or induration) Back/Pelvis: GENERAL BACK: Yes CVA tenderness (Minimal CVA tenderness, flank without erythema or induration) CVA tenderness: left, No ecchymosis, No scar(s), No swelling, Yes tenderness and Yes other (Left nephrostomy tube in place with stitch in place and surrounding intermi) THORACIC SPINE/UPPER BACK: Yes normal to inspection Course Vital Signs: Vital signs: Vital Signs Temperature 97.8 F 11/26/22 12:36 Pulse Rate 77 11/26/22 12:36 Respiratory Rate 16 11/26/22 13:52 Blood Pressure 102/68 11/26/22 13:52 Pulse Oximetry 99 11/26/22 13:52 Oxygen Delivery Me thod 11/26/22 12:36 [facility] - General Adult Medical Decision Making 50-year-old female with left nephrostomy tube dislodgment. Vitals nonactionable. Labs not indicating worsened acute kidney injury to the degree that she would need to be hospitalized for emergent placement. States she can follow-up with her urologist on Monday for placement of the tube. Advise a 5 g encounter and told to leave the tube in place cover with bandage, and follow-up with urologist. She can return to the emergency department for any acute increase in her flank pain and we will emergently replace it. Lab Data 11/26/22 13:08 11/26/22 13:08 Laboratory Results WBC 6.7 10^3/uL (4.0-10.0) 11/26/22 13:08 RBC 3.70 10^6/uL (4.1-5.3) L 11/26/22 13:08 Hgb 12.8 g/dL (11.5-15.3) 11/26/22 13:08 Hct 38.7 % (37.0-47.0) 11/26/22 13:08 MCV 104.6 fl (81-99) H 11/26/22 13:08 MCH 34.6 pg (28.0-34.0) H 11/26/22 13:08 MCHC 33.1 g/dL (30.0-36.0) 11/26/22 13:08 RDW 12.8 % (12.1-15.1) 11/26/22 13:08 Plt Count 195 10^3/cmm (130-400) 11/26/22 13:08 MPV 10.6 fL (7.4-10.4) H 11/26/22 13:08 Neut % (Auto) 58.4 % 11/26/22 13:08 Lymph % (Auto) 29.2 % 11/26/22 13:08 [place] % (Auto) 8.1 % 11/26/22 13:08 Eos % (Auto) 3.1 % 11/26/22 13:08 Baso % (Auto) 0.9 % 11/26/22 13:08 Neut # (Auto) 3.89 10^3/uL (1.8-7.7) 11/26/22 13:08 Lymph # (Auto) 2.0 10^3/uL (0.8-4.8) 11/26/22 13:08 [place] # (Auto) 0.5 10^3/uL (0.2-0.9) 11/26/22 13:08 Eos # (Auto) 0.2 10^3/uL (0.0-0.8) 11/26/22 13:08 Baso # (Auto) 0.1 10^3/uL (0.0-0.1) 11/26/22 13:08 Nucleated RBC % (auto) 0 % 11/26/22 13:08 Nucleated RBCs # 0.0 /100WBC 11/26/22 13:08 Sodium 133 mmol/L (136-145) L 11/26/22 13:08 Potassium 3.7 mmol/L (3.5-5.1) 11/26/22 13:08 Chloride 97 mmol/L (98-107) L 11/26/22 13:08 Carbon Dioxide 23 mmol/L (22-29) 11/26/22 13:08 Anion Gap 16.7 (5-19) 11/26/22 13:08 BUN 16 mg/dL (6-20) 11/26/22 13:08 Creatinine 1.2 mg/dL (0.5-0.9) H 11/26/22 13:08 GFR Calculation 47.2 mL/min (90-130) L 11/26/22 13:08 Glucose 88 mg/dL (65-115) 11/26/22 13:08 Calculated Osmolality 277 mOsm/kg (285-295) L 11/26/22 13:08 Calcium 9.0 mg/dL (8.5-10.5) 11/26/22 13:08 Discharge Plan Discharge Patient Disposition: Home Clinical Impression: Acute left flank pain Condition: Stable Prescriptions: No Action citalopram [Celexa] 40 mg tablet 40 mg PO QPM zolpidem 10 mg tablet 10 mg PO BEDTIME aspirin [Adult Low Dose Aspirin] 81 mg tablet,delayed release (DR/EC) 162 mg PO QAM Hold Instructions: Resume on 10/19/22. Until after percutaneous tube placed in the left kidney carvedilol 6.25 mg tablet 6.25 mg PO BID Qty: 180 2RF Rx Instructions: must administer with a meal/food sacubitril-valsartan 97-103 mg tablet 1 tab PO BID Qty: 120 3RF Hold Instructions: Resume on 10/09/22. Vitamin B-12 50 mcg Tablet 50 mcg PO QAM montelukast 10 mg tablet 10 mg PO QAM potassium chloride 10 mEq tablet extended release 10 meq PO DAILY Qty: 5 0RF Lasix 40 mg tablet 40 mg PO DAILY 30 Days Qty: 30 0RF magnesium 200 mg tablet 200 mg PO DAILY Qty: 10 0RF gabapentin 100 mg Capsule 200 mg PO TID Qty: 180 0RF capsaicin 0.025 % Cream 1 applic topical QID PRN (Reason: Pain) Qty: 60 0RF acetaminophen 500 mg Tablet 1,000 mg PO Q6H PRN (Reason: Pain) omeprazole 20 mg capsule,delayed release(DR/EC) 20 mg PO BID nitroglycerin [Nitrostat] 0.4 mg Tablet, Sublingual 0.4 mg SUBLINGUAL Q5M PRN (Reason: Chest Pain) Rx Instructions: do not exceed 3 doses per episode albuterol sulfate 90 mcg/actuation HFA aerosol inhaler 2 puff INHALATION QID PRN (Reason: Shortness Of Breath) ondansetron 4 mg tablet,disintegrating 4 mg PO Q6H PRN (Reason: Nausea) potassium chloride 20 mEq tablet extended release 40 meq PO DAILY@14 hydrocodone-acetaminophen 5-325 mg tablet 1 tab PO Q6H PRN (Reason: pain) Qty: 25 0RF ciprofloxacin HCl [Cipro] 500 mg tablet 500 mg PO BID Qty: 20 0RF Discharge Orders: Discharge ED (Routine); Ordered 11/26/22 Ordered By: Francisco Pires Referrals: Mavis Peterson PA [Primary Care Provider] - (Follow-up with your urologist at [facility] for replacement of your kidney drain on the left.) Discharge Diet: Usual diet Discharge Activity: Resume usual activity Patient Instructions: Opioid Safety, Pain Management Coding Level of Care Code ED Contract Associate for Wesley Herrera
== END 2022-11-26 13:54 | disposition home or self-care (01) ==
PROVIDERS: Emergency Provider General Practice; PCP Physician Assistant
DX: N99.528 Other complication of incontinent external stoma of urinary tract (principal); R10.9 Unspecified abdominal pain; Z79.82 Long term (current) use of aspirin; F17.210 Nicotine dependence, cigarettes, uncomplicated; I11.0 Hypertensive heart disease with heart failure; I50.9 Heart failure, unspecified; Z86.73 Personal history of transient ischemic attack (TIA), and cerebral infarction without residual deficits; Z95.810 Presence of automatic (implantable) cardiac defibrillator; Z95.0 Presence of cardiac pacemaker
CPT/HCPCS: 80048; 85025; 99283

== ENCOUNTER 2022-11-27 22:28 | Emergency (ER) | payer MEDICARE, MEDICAID, SELFPAY ==
[2022-11-27 22:29] VITALS: BMI 26.6
[2022-11-27 22:33] VITALS: BP 102/60; PULSE 85; RESP 16; TEMP 37; O2SAT 93
--- NOTE | 2022-11-27 22:39 | ED_ITS ---
HPI - Female Genitourinary General: Chief complaint: Urogenital-Female Stated complaint: kidney pain Time Seen by Provider: 11/27/22 22:31 History of Present Illness: Patient is a 52-year-old female comes to the ED via EMS with left flank pain. Patient currently has a nephrostomy tube placed for left kidney. She was seen here in the ED yesterday for same complaint. She says 3 days ago she accidentally pulled on her nephrostomy tube causing it to dislodge. She was having some leakage around nephrostomy tube site. She was discharged home from the ED yesterday and told to follow-up with her urologist Dr. Saldana on Monday. Today she started having 10 out of 10 left flank pain. Denies any fevers, vomiting or painful urination. Endorses having some mild nausea. Patient received 100 mcg of fentanyl while in route. Associated symptoms: Deny abdominal pain, headache(s) or nausea Review of Systems Const: Denies: fever(s), chills or fatigue Eyes: Denies: change in vision or eye discomfort ENMT: Denies: throat pain, odynophagia, nasal discharge or nasal congestion Card: Denies: chest pain, palpitations, edema, swelling of feet/ankles, dyspnea on exertion or orthopnea Resp: Denies: dyspnea, productive cough or non-productive cough GI: Denies: abdominal pain, nausea, vomiting, diarrhea, constipation or saad tochezia : Reports: flank pain (Left flank); Denies: dysuria or hematuria Musc: Denies: neck pain, back pain or extremity swelling Skin/Breast: Denies: rash or new lesions Neuro: Denies: headache(s), numbness in extremities or weakness in extremities PFS ED PFSH: Medical History AICD discharge CHF (congestive heart failure) Related to nonischemic cardiomyopathy, most recent ejection fraction with with EF 42%. History of recurrent UTIs History of TIA (transient ischemic attack) HTN (hypertension) Hypokalemia ICD (implantable cardioverter-defibrillator) in place Liver mass Mass of right lobe of liver ~3.5 x 4 cm, indeterminant, hypodense, first noted 11/2021 Nonischemic cardiomyopathy Specific etiology unknown, may have been viral or related to uncontrolled hypertension from her recollection Echocardiogram November 2021 with ejection fraction of 42% - 05/17/22 echo EF now 25% Obstructive pyelonephritis (~11/2021) Syncope Urolithiasis Multi stone former. Complicated by at least 1 episode of obstructive pyelonephritis. Multiple procedures required to treat Surgical History S/P ureteral stent placement (~11/2021) Status post cholecystectomy Status post placement of cardiac pacemaker Family History Father , AT AGE 77 CAD (coronary artery disease) Cancer lung cancer Mother , AT AGE 60 Cancer OVARIAN Denies family history of Clotting disorder Anesthesia complication Bleeding disorder Social History Smoking and tobacco status: current every day smoker cigarettes Packs smoked per day: 0.5 Years cigarettes smoked: 45 Second hand smoke exposure: Yes Alcohol intake: current Lives independently: Yes Marital status: service: No Current occupational status: disabled Current gender identity: Female Physical Exam Const: COMMON NORMALS: patient oriented x3 and alert GENERAL APPEARANCE: cooperative HENMT: COMMON NORMALS: normocephalic HEAD & SCALP: normocephalic MOUTH: Normal oral and palatal mucosa present THROAT: posterior oropharynx normal and uvula midline Neck/C-Spine: COMMON NORMALS: supple GENERAL: Yes normal visual inspection Resp: COMMON NORMALS: normal respiratory effort, No retractions, No use of accessory muscles and clear to auscultation bilaterally AUSCULTATION: clear to auscultation bilaterally Cardio: COMMON NORMALS: regular rate, regular rhythm, S1 normal heart sound present, S2 normal heart sound present, No gallops present (Cardio), No clicks present (Cardio), No murmurs present (Cardio) and Peripheral pulses 2+ throughout RATE: regular rate RHYTHM: regular rhythm HEART SOUNDS: S1 normal heart sound present and S2 normal heart sound present PERIPHERAL PULSES: Peripheral pulses 2+ throughout GI: COMMON NORMALS: Normal to inspection, nondistended, normoactive bowel sounds present, Soft to palpation, non-tender and no masses PALPATION: Yes Soft to palpation : BLADDER/KIDNEY EXAM: Yes CVA tenderness Back/Pelvis: GENERAL BACK: Yes CVA tenderness CVA tenderness: left and No erythema OTHER: Left nephrostomy tube site?bandage in place. No surrounding erythema or drai nage noted. Extremity: COMMON NORMALS: normal to inspection Neuro: COMMON NORMALS: patient oriented x3 SENSORIUM/ORIENTATION: Yes alert GAIT: Yes Normal gait present Skin: GENERAL SKIN EXAM: dry skin Course Vital Signs: Vital signs: Vital Signs Temperature 98.6 F 11/27/22 22:33 Pulse Rate 79 11/28/22 01:14 Respiratory Rate 18 11/28/22 01:14 Blood Pressure 97/61 11/28/22 01:14 Pulse Oximetry 97 11/28/22 01:14 Oxygen Delivery Me thod 11/27/22 22:33 MDM - Female Medical Decision Making Patient is a 52-year-old female comes to the ED via EMS with left flank pain. Patient currently has a nephrostomy tube placed for left kidney. She was seen here in the ED yesterday for same complaint. She says 3 days ago she accidentally pulled on her nephrostomy tube causing it to dislodge. She was having some leakage around nephrostomy tube site. She was discharged home from the ED yesterday and told to follow-up with her urologist Dr. Saldana on Monday. Today she started having 10 out of 10 left flank pain. Denies any fevers, vomiting or painful urination. Endorses having some mild nausea. Vitals are stable. Patient appears nontoxic and in no acute distress. She has left CVA tenderness and Left nephrostomy tube site?bandage in place. No surrounding erythema or drainage noted. Rest of exam is benign. CT of abdomen pelvis shows some moderate hydronephrosis of the left kidney but nephrostomy tube is in place. She has a proximal left ureter stone causing partial obstruction and was seen on last CT done on November 10, 2022. CBC and CMP are unremarkable. Patient was given IV morphine and Dilaudid to help with pain. I discussed patient case with Dr. Mora and he agreed that patient stable for discharge home. She was diagnosed with left flank pain and told to contact her urologist tomorrow morning to set up a follow-up appoint within the next couple days. She was given strict return ED precautions. She was discharged home with a prescription for hydrocodone to help with pain. Patient understood and agreed with plan. Lab Data I reviewed the patient's lab results. 11/27/22 22:35 11/27/22 22:35 Radiology Impressions Abdomen/Pelvis CT 11/27/22 23:08 IMPRESSION: 1. There is a known mass seen in the posterior aspect of the liver that appears stable compared with 11/10/2022. 2. There is a percutaneous nephrostomy seen on left. There is moderate hydronephrosis seen today, a new finding compared with 11/10/2022. A partially obstructing 2.8 mm calculus seen in the proximal left ureter. 3. There are punctate nonobstructing calculi seen in the right kidney, the largest present in lower pole measuring 2.1 mm. 4. Strandy and hazy opacities in lung bases likely represents atelectasis although a bilateral basilar pneumonitis cannot be entirely excluded. 5. Stable right celiac lymph nodes compared with 11/10/2022. 6. Otherwise stable appearance of the abdomen compared with 11/10/2022. Laboratory Results WBC 8.0 10^3/uL (4.0-10.0) 11/27/22 22:35 RBC 3.67 10^6/uL (4.1-5.3) L 11/27/22 22:35 Hgb 12.6 g/dL (11.5-15.3) 11/27/22 22:35 Hct 38.4 % (37.0-47.0) 11/27/22 22:35 MCV 104.6 fl (81-99) H 11/27/22 22:35 MCH 34.3 pg (28.0-34.0) H 11/27/22 22:35 MCHC 32.8 g/dL (30.0-36.0) 11/27/22 22:35 RDW 12.8 % (12.1-15.1) 11/27/22 22:35 Plt Count 212 10^3/cmm (130-400) 11/27/22 22:35 MPV 10.6 fL (7.4-10.4) H 11/27/22 22:35 Neut % (Auto) 53.2 % 11/27/22 22:35 Lymph % (Auto) 35.9 % 11/27/22 22:35 [place] % (Auto) 7.1 % 11/27/22 22:35 Eos % (Auto) 2.6 % 11/27/22 22:35 Baso % (Auto) 0.8 % 11/27/22 22:35 Neut # (Auto) 4.26 10^3/uL (1.8-7.7) 11/27/22 22:35 Lymph # (Auto) 2.9 10^3/uL (0.8-4.8) 11/27/22 22:35 [place] # (Auto) 0.6 10^3/uL (0.2-0.9) 11/27/22 22:35 Eos # (Auto) 0.2 10^3/uL (0.0-0.8) 11/27/22 22:35 Baso # (Auto) 0.1 10^3/uL (0.0-0.1) 11/27/22 22:35 Nucleated RBC % (auto) 0 % 11/27/22 22:35 Nucleated RBCs # 0.0 /100WBC 11/27/22 22:35 Sodium 137 mmol/L (136-145) 11/27/22 22:35 Potassium 3.8 mmol/L (3.5-5.1) 11/27/22 22:35 Chloride 98 mmol/L (98-107) 11/27/22 22:35 Carbon Dioxide 24 mmol/L (22-29) 11/27/22 22:35 Anion Gap 18.8 (5-19) 11/27/22 22:35 BUN 25 mg/dL (6-20) H 11/27/22 22:35 Creatinine 1.4 mg/dL (0.5-0.9) H 11/27/22 22:35 GFR Calculation 39.5 mL/min (90-130) L 11/27/22 22:35 Glucose 91 mg/dL (65-115) 11/27/22 22:35 Calculated Osmolality 288 mOsm/kg (285-295) 11/27/22 22:35 Calcium 9.3 mg/dL (8.5-10.5) 11/27/22 22:35 Total Bilirubin 0.3 mg/dL (0.15-1.2) 11/27/22 22:35 AST 14 U/L (0-32) 11/27/22 22:35 ALT 10 U/L (0-33) 11/27/22 22:35 Alkaline Phosphatase 111 U/L (35-105) H 11/27/22 22:35 Total Protein 6.5 g/dL (6.6-8.7) L 11/27/22 22:35 Albumin 4.2 g/dL (3.5-5.2) 11/27/22 22:35 Globulin 2.3 g/dL (1.3-4.6) 11/27/22 22:35 Lipase 74 U/L (13-60) H 11/27/22 22:35 Discharge Plan Discharge Patient Disposition: Home Clinical Impression: Left flank pain Condition: Stable Prescriptions: No Action citalopram [Celexa] 40 mg tablet 40 mg PO QPM zolpidem 10 mg tablet 10 mg PO BEDTIME aspirin [Adult Low Dose Aspirin] 81 mg tablet,delayed release (DR/EC) 162 mg PO QAM Hold Instructions: Resume on 10/19/22. Until after percutaneous tube placed in the left kidney carvedilol 6.25 mg tablet 6.25 mg PO BID Qty: 180 2RF Rx Instructions: must administer with a meal/food sacubitril-valsartan 97-103 mg tablet 1 tab PO BID Qty: 120 3RF Hold Instructions: Resume on 10/09/22. Vitamin B-12 50 mcg Tablet 50 mcg PO QAM montelukast 10 mg tablet 10 mg PO QAM potassium chloride 10 mEq tablet extended release 10 meq PO DAILY Qty: 5 0RF Lasix 40 mg tablet 40 mg PO DAILY 30 Days Qty: 30 0RF magnesium 200 mg tablet 200 mg PO DAILY Qty: 10 0RF gabapentin 100 mg Capsule 200 mg PO TID Qty: 180 0RF capsaicin 0.025 % Cream 1 applic topical QID PRN (Reason: Pain) Qty: 60 0RF acetaminophen 500 mg Tablet 1,000 mg PO Q6H PRN (Reason: Pain) omeprazole 20 mg capsule,delayed release(DR/EC) 20 mg PO BID nitroglycerin [Nitrostat] 0.4 mg Tablet, Sublingual 0.4 mg SUBLINGUAL Q5M PRN (Reason: Chest Pain) Rx Instructions: do not exceed 3 doses per episode albuterol sulfate 90 mcg/actuation HFA aerosol inhaler 2 puff INHALATION QID PRN (Reason: Shortness Of Breath) ondansetron 4 mg tablet,disintegrating 4 mg PO Q6H PRN (Reason: Nausea) potassium chloride 20 mEq tablet extended release 40 meq PO DAILY@14 hydrocodone-acetaminophen 5-325 mg tablet 1 tab PO Q6H PRN (Reason: pain) Qty: 25 0RF ciprofloxacin HCl [Cipro] 500 mg tablet 500 mg PO BID Qty: 20 0RF Discharge Orders: Discharge ED (Routine); Ordered 11/28/22 Ordered By: Fco Meneses Referrals: Mavis Peterson PA [Primary Care Provider] - Discharge Diet: Regular Discharge Activity: Increase activity as tolerated Patient Instructions: Flank Pain (ED), Opioid Safety Activity Restrictions/Additional Instructions: Follow-up with medical provider as directed. Contact your urologist tomorrow morning to discuss symptoms and recent ED visit and schedule follow-up appointment within the next couple days. Take medications as prescribed. Return to the ER or your medical provider if condition worsens. Please read and understand discharge instructions. Thank you for choosing [facility] for your healthcare needs today. Ross engel realize this is an emergency room and that we are providing you with a medical screening exam and this may not be complete and all inclusive of all the testing and or work up that you may need to determine your ailment or severity of your illness. It is very important that you follow up as instructed or that you return to the Emergency Department should you have concerns or if your condition changes or worsens in any way. Coding Level of Care Code ED Transit Mix Operator for Wesley Herrera
[2022-11-27 22:45] LABS: Basophils # 0.1 10^3/uL (0.0-0.1); Basophils % 0.8 %; Eosinophils # 0.2 10^3/uL (0.0-0.8); Eosinophils % 2.6 %; Hematocrit 38.4 % (37.0-47.0); Hemoglobin 12.6 g/dL (11.5-15.3); Lymphocytes # 2.9 10^3/uL (0.8-4.8); Lymphocytes % 35.9 %; Mean Corpuscular HGB Conc 32.8 g/dL (30.0-36.0); Mean Corpuscular Hemoglobin 34.3 pg (28.0-34.0); Mean Corpuscular Volume 104.6 fl (81-99); Mean Platelet Volume 10.6 fL (7.4-10.4); Monocytes # 0.6 10^3/uL (0.2-0.9); Monocytes % 7.1 %; Neutrophils # 4.26 10^3/uL (1.8-7.7); Neutrophils % 53.2 %; Nucleated Red Blood Cells % 0 %; Platelet Count 212 10^3/cmm (130-400); Red Blood Count 3.67 10^6/uL (4.1-5.3); Red Cell Distribution Width 12.8 % (12.1-15.1)
[2022-11-27] MEDS: ondansetron 2 mg/ML SDV 2 mL 4 MG IVP (22:49)
[2022-11-27] MEDS: morphine 4 mg/mL SDV 1 mL IVP (22:49)
[2022-11-27] MEDS: sodium chloride 0.9% 500 ML 999 ML IV (22:49)
[2022-11-27 23:01] LABS: Alanine Aminotransferase 10 U/L (0-33); Albumin Level 4.2 g/dL (3.5-5.2); Alkaline Phosphatase 111 U/L (35-105); Anion Gap 18.8 (5-19); Aspartate Amino Transferase 14 U/L (0-32); Blood Urea Nitrogen 25 mg/dL (6-20); Calcium 9.3 mg/dL (8.5-10.5); Carbon Dioxide 24 mmol/L (22-29); Chloride 98 mmol/L (98-107); Globulin 2.3 g/dL (1.3-4.6); Glomerular Filtration Rate 39.5 mL/min (90-130); Glucose 91 mg/dL (65-115); Lipase 74 U/L (13-60); Osmolality Calculated 288 mOsm/kg (285-295); Potassium 3.8 mmol/L (3.5-5.1); Sodium 137 mmol/L (136-145); Total Bilirubin 0.3 mg/dL (0.15-1.2); Total Protein 6.5 g/dL (6.6-8.7)
--- NOTE | 2022-11-27 23:08 | CTR_ITS ---
PROCEDURE INFORMATION: Exam: CT Abdomen And Pelvis Without Contrast Exam date and time: 11/27/2022 11:35 PM Age: 52 years old Clinical indication: Abdominal pain; Flank; Prior surgery; Surgery date: 1-6 months; Surgery type: Left nephrostomy tube; Additional info: Left kidney pain, check nephrostomy tube placement TECHNIQUE: Imaging protocol: Computed tomography of the abdomen and pelvis without contrast. Radiation optimization: All CT scans at this facility use at least one of these dose optimization techniques: automated exposure control; mA and/or kV adjustment per patient size (includes targeted exams where dose is matched to clinical indication); or iterative reconstruction. Other protocol: This patient has received 14 known CTs and 0 known cardiac nuclear medicine studies in the 12 months prior to the current study. COMPARISON: CT abdomen pelvis wo con [id number] 11/10/2022 7:39 AM RADIATION DOSE METRICS: Total DLP (mGy-cm): 513.54 FINDINGS: Tubes, catheters and devices: There is a percutaneous nephrostomy tube seen within the left kidney. There is moderate hydronephrosis seen within the left kidney. There is a partially obstructing 2.8 mm calculus within the proximal left ureter. It appears essentially unchanged in position compared with 11/10/2022. Lungs: There are strandy and hazy opacities present in the lung bases bilaterally likely representing atelectasis although bilateral basilar infiltrates and pneumonitis cannot be entirely excluded. Pleural spaces: A calcified granuloma seen in the right costophrenic recess medially. Liver: A stable hypoattenuation lesion is again seen in the posterior aspect of the right hepatic lobe measuring approximately 5.2 cm AP dimension by 3.8 cm transverse dimension. Gallbladder and bile ducts: Status post cholecystectomy. Pancreas: Normal. No ductal dilation. Spleen: Normal. No splenomegaly. Adrenal glands: Normal. No mass. Kidneys and ureters: There are punctate nonobstructing calculi seen within the right kidney, the largest seen in the lower pole measuring 2.1 mm. Stomach and bowel: Unremarkable. No obstruction. No mucosal thickening. Appendix: The appendix is visualized and is normal in configuration. Intraperitoneal space: Unremarkable. No free air. No significant fluid collection. Vasculature: Unremarkable. No abdominal aortic aneurysm. Lymph nodes: Calcified nodularities are seen adjacent to the distal esophagus within the posterior mediastinum likely representing calcified lymph nodes. Stable right celiac lymph nodes compared with 11/10/2722. Urinary bladder: Unremarkable as visualized. Reproductive: Unremarkable as visualized. Bones/joints: Status post gamma nailing of the left hip. Soft tissues: Unremarkable. CT/CT abdomen pelvis wo con [id number] IMPRESSION: 1. There is a known mass seen in the posterior aspect of the liver that appears stable compared with 11/10/2022. 2. There is a percutaneous nephrostomy seen on left. There is moderate hydronephrosis seen today, a new finding compared with 11/10/2022. A partially obstructing 2.8 mm calculus seen in the proximal left ureter. 3. There are punctate nonobstructing calculi seen in the right kidney, the largest present in lower pole measuring 2.1 mm. 4. Strandy and hazy opacities in lung bases likely represents atelectasis although a bilateral basilar pneumonitis cannot be entirely excluded. 5. Stable right celiac lymph nodes compared with 11/10/2022. 6. Otherwise stable appearance of the abdomen compared with 11/10/2022.
[2022-11-27 23:32] VITALS: BP 98/59; PULSE 74; RESP 18; O2SAT 98
[2022-11-27 23:53] VITALS: RESP 16; O2SAT 98
[2022-11-27] MEDS: HYDROmorphone 1 mg/mL INJ 1 mL 0.5 MG IVP (23:53)
[2022-11-28 00:30] VITALS: BP 103/65; PULSE 85; RESP 18; O2SAT 98
--- NOTE | 2022-11-28 00:45 | PC.NURSE ---
Pt attempted to urinate x2, once on arrival and now. Pt unable to urinate at this time. Provider notified. No new orders
[2022-11-28 01:14] VITALS: BP 97/61; PULSE 79; RESP 18; O2SAT 97
== END 2022-11-28 01:15 | disposition home or self-care (01) ==
PROVIDERS: Emergency Provider Physician Assistant; PCP Physician Assistant
DX: N13.2 Hydronephrosis with renal and ureteral calculous obstruction (principal); F17.210 Nicotine dependence, cigarettes, uncomplicated; Z79.82 Long term (current) use of aspirin; I11.0 Hypertensive heart disease with heart failure; I50.9 Heart failure, unspecified; Z86.73 Personal history of transient ischemic attack (TIA), and cerebral infarction without residual deficits; Z95.810 Presence of automatic (implantable) cardiac defibrillator
CPT/HCPCS: 74176; 80053; 83690; 85025; 96361; 96374; 96375; 99285; J1170; J2270; J2405; J7040

== ENCOUNTER 2022-12-07 04:32 | Observation (INO) | payer MEDICARE, MEDICAID, SELFPAY ==
[2022-12-07] VITALS (154 sets, daily range): BP systolic 82–116; BP diastolic 54–79; PULSE 71–90; RESP 10–25; TEMP 36.6–37.1; O2SAT 88–100; BMI 23.3
--- NOTE | 2022-12-07 04:32 | XRR_ITS ---
PROCEDURE INFORMATION: Exam: XR Chest Exam date and time: 12/07/2022 4:36 AM Age: 52 years old Clinical indication: Pain; Chest pressure; Prior surgery; Surgery type: Defibrillator. Gb. Patient HX: Awakened from sleep by defibrillator firing. History of chf. ; Additional info: Cp TECHNIQUE: Imaging protocol: Radiologic exam of the chest. Views: 1 view. COMPARISON: CR (CHEST, ) 11/23/2022 7:21 PM FINDINGS: Lungs: Unremarkable. No consolidation. Pleural spaces: Unremarkable. No pleural effusion. No pneumothorax. Heart/Mediastinum: The heart is large with left-sided pacing device. Bones/joints: Unremarkable. Organs: Absent gallbladder. XR/XR chest 1V portable [id number] IMPRESSION: Stable chest, no acute finding.
--- NOTE | 2022-12-07 04:33 | ED_ITS ---
HPI - Chest Pain General: Chief Complaint: Chest Pain Stated Complaint: Chest Pain Time Seen by Provider: 12/07/22 04:32 Source: patient and EMS Mode of arrival: EMS Limitations: no limitations History of Present Illness: 52-year-old female is very well-known to ER states that her defibrillator went off she believes around 2 to 3 AM states that she has lately [place] full dizzy and then it went off she states that she is having pain from where it shocked her she denies any shortness of breath denies any nausea denies any worsening improving factors. Associated symptoms: Deny abdominal pain, dyspnea, fever(s), nausea or vomiting Review of Systems Const: Denies: fever(s), chills, body aches or change in appetite Eyes: Denies: blurry vision or eye discomfort ENMT: Denies: throat pain or dental pain Card: Reports: chest pain Resp: Denies: dyspnea GI: Denies: abdominal pain, nausea, vomiting or diarrhea : Denies: dysuria Musc: Denies: neck pain or back pain Skin/Breast: Denies: rash Neuro: Denies: headache(s) Psych: Denies: depression Cedric/Lymph: Denies: easy bruising All/Imm: Denies: urticaria PFSH ED PFSH: Medical History AICD discharge CHF (congestive heart failure) Related to nonischemic cardiomyopathy, most recent ejection fraction with with EF 42%. History of recurrent UTIs History of TIA (transient ischemic attack) HTN (hypertension) Hypokalemia ICD (implantable cardioverter-defibrillator) in place Liver mass Mass of right lobe of liver ~3.5 x 4 cm, indeterminant, hypodense, first noted 11/2021 Nonischemic cardiomyopathy Specific etiology unknown, may have been viral or related to uncontrolled hypertension from her recollection Echocardiogram November 2021 with ejection fraction of 42% - 05/17/22 echo EF now 25% Obstructive pyelonephritis (~11/2021) Syncope Urolithiasis Multi stone former. Complicated by at least 1 episode of obstructive pyelonephritis. Multiple procedures required to treat Surgical History S/P ureteral stent placement (~11/2021) Status post cholecystectomy Status post placement of cardiac pacemaker Family History Father , AT AGE 77 CAD (coronary artery disease) Cancer lung cancer Mother , AT AGE 60 Cancer OVARIAN Denies family history of Clotting disorder Anesthesia complication Bleeding disorder Social History Smoking and tobacco status: current every day smoker cigarettes Packs smoked per day: 0.5 Years cigarettes smoked: 45 Second hand smoke exposure: Yes Alcohol intake: current Lives independently: Yes Marital status: service: No Current occupational status: disabled Current gender identity: Female Physical Exam Const: COMMON NORMALS: no acute distress, patient oriented x3 and healthy appearing HENMT: COMMON NORMALS: normocephalic and atraumatic HEAD & SCALP: normocephalic and atraumatic Eye: COMMON NORMALS: Equal, round and reactive pupils present and EOMs intact bilaterally PUPIL: Yes Equal, round and reactive pupils present Neck/C-Spine: COMMON NORMALS: full ROM and supple Chest: COMMONS NORMALS: normal inspection of the chest and normal palpation of entire chest wall Resp: COMMON NORMALS: normal respiratory effort, No retractions, No use of accessory muscles and clear to auscultation bilaterally AUSCULTATION: clear to auscultation bilaterally Cardio: COMMON NORMALS: regular rate, regular rhythm and No murmurs present (Cardio) RATE: regular rate RHYTHM: regular rhythm GI: COMMON NORMALS: Normal to inspection, nondistended, normoactive bowel sounds present, Soft to palpation, non-tender and no masses PALPATION: Yes Soft to palpation Extremity: COMMON NORMALS: normal to inspection and full ROM Neuro: COMMON NORMALS: patient oriented x3, moves all extremities and no focal motor deficits Psych: COMMON NORMALS: mental status grossly normal, Normal thought process present and cooperative THOUGHT PROCESS: Normal thought process present Skin: COMMON NORMALS: no rashes or lesions noted and no wounds GENERAL SKIN EXAM: no rashes or lesions noted Course Vital Signs: Vital signs: Vital Signs Temperature 97.9 F 12/07/22 04:38 Pulse Rate 82 12/07/22 05:04 Respiratory Rate 24 H 12/07/22 05:17 Blood Pressure 109/68 12/07/22 05:04 Pulse Oximetry 98 12/07/22 05:17 Oxygen Delivery Me thod 12/07/22 04:38 MDM - Chest Pain Medical Decision Making Patient presents here after having an AICD discharge her initial troponin here is normal she is hypokalemic of spoke to cardiology along with the hospitalist and will admit at this time. Lab Data 12/07/22 04:45 12/07/22 04:45 Radiology Impressions Chest X-Ray 12/07/22 04:32 IMPRESSION: Stable chest, no acute finding. Laboratory Results WBC 6.6 10^3/uL (4.0-10.0) 12/07/22 04:45 RBC 3.58 10^6/uL (4.1-5.3) L 12/07/22 04:45 Hgb 12.1 g/dL (11.5-15.3) 12/07/22 04:45 Hct 36.1 % (37.0-47.0) L 12/07/22 04:45 MCV 100.8 fl (81-99) H 12/07/22 04:45 MCH 33.8 pg (28.0-34.0) 12/07/22 04:45 MCHC 33.5 g/dL (30.0-36.0) 12/07/22 04:45 RDW 12.3 % (12.1-15.1) 12/07/22 04:45 Plt Count 153 10^3/cmm (130-400) 12/07/22 04:45 MPV 11.1 fL (7.4-10.4) H 12/07/22 04:45 Neut % (Auto) 58.1 % 12/07/22 04:45 Lymph % (Auto) 29.7 % 12/07/22 04:45 [place] % (Auto) 6.4 % 12/07/22 04:45 Eos % (Auto) 4.0 % 12/07/22 04:45 Baso % (Auto) 1.5 % 12/07/22 04:45 Neut # (Auto) 3.81 10^3/uL (1.8-7.7) 12/07/22 04:45 Lymph # (Auto) 2.0 10^3/uL (0.8-4.8) 12/07/22 04:45 [place] # (Auto) 0.4 10^3/uL (0.2-0.9) 12/07/22 04:45 Eos # (Auto) 0.3 10^3/uL (0.0-0.8) 12/07/22 04:45 Baso # (Auto) 0.1 10^3/uL (0.0-0.1) 12/07/22 04:45 Nucleated RBC % (auto) 0 % 12/07/22 04:45 Nucleated RBCs # 0.0 /100WBC 12/07/22 04:45 PT 13.90 SECONDS (12.1-14.9) 12/07/22 04:45 INR 1.03 (0.8-1.2) 12/07/22 04:45 Sodium 137 mmol/L (136-145) 12/07/22 04:45 Potassium 2.5 mmol/L (3.5-5.1) L* 12/07/22 04:45 Chloride 99 mmol/L (98-107) 12/07/22 04:45 Carbon Dioxide 23 mmol/L (22-29) 12/07/22 04:45 Anion Gap 17.5 (5-19) 12/07/22 04:45 BUN 19 mg/dL (6-20) 12/07/22 04:45 Creatinine 1.2 mg/dL (0.5-0.9) H 12/07/22 04:45 GFR Calculation 47.2 mL/min (90-130) L 12/07/22 04:45 Glucose 95 mg/dL (65-115) 12/07/22 04:45 Calculated Osmolality 286 mOsm/kg (285-295) 12/07/22 04:45 Calcium 8.7 mg/dL (8.5-10.5) 12/07/22 04:45 Total Bilirubin 0.3 mg/dL (0.15-1.2) 12/07/22 04:45 AST 14 U/L (0-32) 12/07/22 04:45 ALT 9 U/L (0-33) 12/07/22 04:45 Alkaline Phosphatase 109 U/L (35-105) H 12/07/22 04:45 Troponin T Baseline 11 ng/L (0-10) H 12/07/22 04:45 Total Protein 6.4 g/dL (6.6-8.7) L 12/07/22 04:45 Albumin 3.7 g/dL (3.5-5.2) 12/07/22 04:45 Globulin 2.7 g/dL (1.3-4.6) 12/07/22 04:45 EKG Data EKG 1: I personally reviewed and interpreted this EKG as follows: EKG interpretation date: 12/07/22 EKG interpretation time: 04:38 Interpretation: nsr hr [address] or t wave abnormalities qrs 149 qtc 379 Critical Care Time Critical Care Time: Critical Care Time: Yes Total Critical Care Time: 40 Attestation: The high probability of a clinically significant, sudden or life threatening deterioration of the patient's cv system(s) required my full and direct attention, intervention and personal management. The critical care time is as shown. This time is in addition to time spent performing any reported procedures but includes the following: [x] Data and vital sign review and interpretation [x] Patient assessment, examination and intervention [x] Documentation [x] Medication orders and management Discharge Plan Discharge Patient Disposition: Admitted As Inpatient Clinical Impression: AICD discharge, Chest pain, Hypokalemia Condition: Stable Prescriptions: No Action citalopram [Celexa] 40 mg tablet 40 mg PO QPM zolpidem 10 mg tablet 10 mg PO BEDTIME aspirin [Adult Low Dose Aspirin] 81 mg tablet,delayed release (DR/EC) 162 mg PO QAM Hold Instructions: Resume on 10/19/22. Until after percutaneous tube placed in the left kidney carvedilol 6.25 mg tablet 6.25 mg PO BID Qty: 180 2RF Rx Instructions: must administer with a meal/food sacubitril-valsartan 97-103 mg tablet 1 tab PO BID Qty: 120 3RF Hold Instructions: Resume on 10/09/22. Vitamin B-12 50 mcg Tablet 50 mcg PO QAM montelukast 10 mg tablet 10 mg PO QAM potassium chloride 10 mEq tablet extended release 10 meq PO DAILY Qty: 5 0RF magnesium 200 mg tablet 200 mg PO DAILY Qty: 10 0RF gabapentin 100 mg Capsule 200 mg PO TID Qty: 180 0RF capsaicin 0.025 % Cream 1 applic topical QID PRN (Reason: Pain) Qty: 60 0RF acetaminophen 500 mg Tablet 1,000 mg PO Q6H PRN (Reason: Pain) omeprazole 20 mg capsule,delayed release(DR/EC) 20 mg PO BID nitroglycerin [Nitrostat] 0.4 mg Tablet, Sublingual 0.4 mg SUBLINGUAL Q5M PRN (Reason: Chest Pain) Rx Instructions: do not exceed 3 doses per episode albuterol sulfate 90 mcg/actuation HFA aerosol inhaler 2 puff INHALATION QID PRN (Reason: Shortness Of Breath) ondansetron 4 mg tablet,disintegrating 4 mg PO Q6H PRN (Reason: Nausea) potassium chloride 20 mEq tablet extended release 40 meq PO DAILY@14 hydrocodone-acetaminophen 5-325 mg tablet 1 tab PO Q6H PRN (Reason: pain) Qty: 25 0RF ciprofloxacin HCl [Cipro] 500 mg tablet 500 mg PO BID Qty: 20 0RF Referrals: Mavis Peterson PA [Primary Care Provider] - Coding Level of Care Code ED [employer] Operator for Wesley Herrera
[2022-12-07] MEDS: aspirin 81 mg Chew Tablet 324 MG PO (04:46)
[2022-12-07] MEDS: ondansetron 2 mg/ML SDV 2 mL 4 MG IVP ×3 (04:46→20:11)
[2022-12-07] MEDS: morphine 4 mg/mL SDV 1 mL IVP (04:47)
[2022-12-07 04:55] LABS: Basophils # 0.1 10^3/uL (0.0-0.1); Basophils % 1.5 %; Eosinophils # 0.3 10^3/uL (0.0-0.8); Hematocrit 36.1 % (37.0-47.0); Hemoglobin 12.1 g/dL (11.5-15.3); Lymphocytes % 29.7 %; Mean Corpuscular HGB Conc 33.5 g/dL (30.0-36.0); Mean Corpuscular Hemoglobin 33.8 pg (28.0-34.0); Mean Corpuscular Volume 100.8 fl (81-99); Mean Platelet Volume 11.1 fL (7.4-10.4); Monocytes # 0.4 10^3/uL (0.2-0.9); Monocytes % 6.4 %; Neutrophils # 3.81 10^3/uL (1.8-7.7); Neutrophils % 58.1 %; Nucleated Red Blood Cells % 0 %; Platelet Count 153 10^3/cmm (130-400); Red Blood Count 3.58 10^6/uL (4.1-5.3); Red Cell Distribution Width 12.3 % (12.1-15.1); White Blood Count 6.6 10^3/uL (4.0-10.0)
[2022-12-07 05:15] LABS: INR 1.03 (0.8-1.2)
--- NOTE | 2022-12-07 05:16 | ECG_ITS ---
[facility] Test Date: 2022-12-07 Pat Name: Elena Pulliam Department: Room: Gender: Female [employer] Installer: : 1970 Requested By: Marc Mora Order Number: [id number] Arlette MD: Michael Hill M.D. Measurements Intervals [place] Rate: 84 P: 51 MS: 146 QRS: -42 QRSD: 160 T: 101 QT: 366 QTc: 433 Interpretive Statements SINUS RHYTHM LEFT AXIS DEVIATION [QRS AXIS < -30] LEFT BUNDLE BRANCH BLOCK [120+ ms QRS DURATION, 80+ ms Q/S IN V1/V2, 85+ ms R IN I/aVL/V5/V6] Diffuse nonspecific T wave changes Compared to ECG 11/23/2022 20:51:28 Left bundle-branch block now present Intraventricular conduction delay no longer present Left ventricular hypertrophy no longer present ST (T wave) deviation no longer present Electronically Signed On 12-07-2022 14:23:15 POULTRY PINNER by Michael Hill M.D. [id number]
[2022-12-07] MEDS: HYDROmorphone 1 mg/mL INJ 1 mL IVP (05:17)
[2022-12-07 05:20] LABS: Troponin(5th) Baseline 11 ng/L (0-10)
[2022-12-07 05:23] LABS: Alanine Aminotransferase 9 U/L (0-33); Albumin Level 3.7 g/dL (3.5-5.2); Alkaline Phosphatase 109 U/L (35-105); Anion Gap 17.5 (5-19); Aspartate Amino Transferase 14 U/L (0-32); Blood Urea Nitrogen 19 mg/dL (6-20); Calcium 8.7 mg/dL (8.5-10.5); Carbon Dioxide 23 mmol/L (22-29); Chloride 99 mmol/L (98-107); Globulin 2.7 g/dL (1.3-4.6); Glomerular Filtration Rate 47.2 mL/min (90-130); Glucose 95 mg/dL (65-115); Osmolality Calculated 286 mOsm/kg (285-295); Sodium 137 mmol/L (136-145); Total Bilirubin 0.3 mg/dL (0.15-1.2); Total Protein 6.4 g/dL (6.6-8.7)
[2022-12-07 05:44] LABS: Potassium 2.5 mmol/L (3.5-5.1)
[2022-12-07] MEDS: potassium chloride ER 20 mEq Tablet 40 MEQ PO (05:51)
--- NOTE | 2022-12-07 06:08 | P.HP_ITS ---
Providers/Chief Complaint Admitting Physician: Jones Boucher MD, hospitalist Primary Care Provider: Mavis Peterson Chief Complaint: Chest Pain History of Present Illness Elena Pulliam is a 52 year old female presenting to the emergency department, with history of defibrillator discharging this morning around 330 or so. She states she was sitting on the couch, unable to sleep. She reports palpitations for 2 days, as well as some chest discomfort. She reports she has occasional chest discomfort and has known low EF with nonischemic cardiomyopathy. She had a recent hospitalization for defibrillator discharge around November 16. No recent fever. The emergency department physician reports he called [facility] and she had episodes of ventricular tachycardia, with defibrillation x2 Review of Systems General: Reports: 10 or more systems reviewed and unremarkable except in HPI and below Const: Denies: fever(s) or chills Card: Reports: chest pain and palpitations Resp: Reports: dyspnea : Denies: difficulty voiding Medications/Allergies Home Medications Medication Instructions Recorded Confirmed Last Taken Type citalopram 40 mg tablet (Celexa) 40 mg PO QPM 01/31/20 11/18/22 11/15/22 History zolpidem 10 mg tablet 10 mg PO BEDTIME 01/31/20 11/18/22 11/15/22 History aspirin 81 mg tablet,delayed 162 mg PO QAM 01/20/21 11/18/22 11/16/22 History release (Adult Low Dose Aspirin) cyanocobalamin (vitamin B-12) 50 50 mcg PO QAM 11/30/21 11/18/22 11/16/22 History mcg tablet (Vitamin B-12) montelukast 10 mg tablet 10 mg PO QAM 11/30/21 11/18/22 11/16/22 History sacubitril 97 mg-valsartan 103 mg 1 tab PO BID #120 tabs 09/14/22 11/18/22 11/16/22 Rx tablet capsaicin 0.025 % topical cream 1 applic topical QID PRN Pain #60 10/02/22 11/18/22 Unknown Rx grams gabapentin 100 mg capsule 200 mg PO TID #180 caps 10/02/22 11/18/22 11/16/22 Rx acetaminophen 500 mg tablet 1,000 mg PO Q6H PRN Pain 10/26/22 11/18/22 Unknown History omeprazole 20 mg capsule,delayed 20 mg PO BID 10/26/22 11/18/22 11/16/22 History release carvedilol 6.25 mg tablet 6.25 mg PO BID #180 tabs 10/28/22 11/18/22 11/16/22 Rx albuterol sulfate 90 mcg/actuation 2 puff inhalation QID PRN 11/10/22 11/18/22 Unknown History aerosol inhaler Shortness Of Breath ciprofloxacin HCl 500 mg tablet 500 mg PO BID #20 tabs 11/10/22 11/18/22 11/16/22 Rx (Cipro) hydrocodone 5 mg-acetaminophen 325 1 tab PO Q6H PRN pain #25 tabs 11/10/22 11/18/22 Unknown Rx mg tablet nitroglycerin 0.4 mg sublingual 0.4 mg sublingual Q5M PRN Chest 11/10/22 11/18/22 Unknown History tablet (Nitrostat) Pain ondansetron 4 mg disintegrating 4 mg PO Q6H PRN Nausea 11/10/22 11/18/22 11/09/22 History tablet potassium chloride 20 mEq 40 meq PO DAILY@14 11/10/22 11/18/22 11/15/22 History tablet,extended release magnesium 200 mg tablet 200 mg PO DAILY #10 tabs 11/17/22 11/18/22 Unknown Rx potassium chloride 10 mEq 10 meq PO DAILY #5 tabs 11/17/22 11/18/22 Unknown Rx tablet,extended release Allergies Allergy/AdvReac Type Severity Reaction Status Date / Time egg Allergy unknown Verified 11/10/22 09:52 PFSH Acute PFSH: Medical History (Updated 12/07/22 @ 06:15 by Jones Boucher MD) AICD discharge CHF (congestive heart failure) Related to nonischemic cardiomyopathy, most recent ejection fraction with w ith EF 42%. History of recurrent UTIs History of TIA (transient ischemic attack) HTN (hypertension) Hypokalemia ICD (implantable cardioverter-defibrillator) in place Liver mass Mass of right lobe of liver ~3.5 x 4 cm, indeterminant, hypodense, first noted 11/2021 Nonischemic cardiomyopathy Specific etiology unknown, may have been viral or related to uncontrolled hypertension from her recollection Echocardiogram November 2021 with ejection fraction of 42% - 05/17/22 echo EF now 25% Obstructive pyelonephritis (~11/2021) Syncope Urolithiasis Multi stone former. Complicated by at least 1 episode of obstructive pyelonephritis. Multiple procedures required to treat Surgical History S/P ureteral stent placement (~11/2021) Status post cholecystectomy Status post placement of cardiac pacemaker Family History Father , AT AGE 77 CAD (coronary artery disease) Cancer lung cancer Mother , AT AGE 60 Cancer OVARIAN Denies family history of Clotting disorder Anesthesia complication Bleeding disorder Social History Smoking and tobacco status: current every day smoker cigarettes Packs smoked per day: 0.5 Years cigarettes smoked: 45 Second hand smoke exposure: Yes Alcohol intake: current Lives independently: Yes Marital status: service: No Current occupational status: disabled Current gender identity: Female Vitals/I&O/Wt Last Vital Signs Temp 97.9 F 12/07/22 04:38 Pulse 82 12/07/22 05:04 Resp 24 H 12/07/22 05:17 BP 109/68 12/07/22 05:04 Pulse Ox 98 12/07/22 05:17 O2 Del Method 12/07/22 04:38 Physical Exam Narrative: General exam is a white female, conversive, reporting that her chest hurts some. HEENT: Pupils equally round. Oropharynx clear. Neck is supple no lymphadenopathy thyromegaly Cardiovascular regular rate and rhythm, heart sounds distant. Defibrillator noted left chest Lungs clear no wheezing or crackles Abdomen is soft nontender positive bowel sounds. No obvious organomegaly exam deferred Extremities no cyanosis clubbing or edema, cap refill brisk Skin no rash Neuro no obvious focal deficits. Data 12/07/22 04:45 12/07/22 04:45 Other Labs: EKG currently demonstrates heart rate of 84, left bundle branch block, sinus. QRS is wider than the previous. By my review, intraventricular conduction delay that was noted on her previous EKG Magnesium has been ordered TSH was done last month and only slightly elevated Recent echo October demonstrated EF of 20 to 25% Chest x-ray no infiltrate, left-sided pacer by my review INR normal Troponin 11, repeat pending LFTs normal with exception of alk phos of 109 A&P Assessment and plan (1) Ventricular tachycardia: She has known nonischemic cardiomyopathy Ventricular tachycardia, and defibrillator discharge may be secondary to her hypokalemia Supplement potassium IV, as well as p.o. Recheck potassium at approximately 1300 Cardiology consultation Pacemaker interrogation Check magnesium TSH has been recently checked and does not need to be rechecked Has had recent echocardiogram, does not need repeat Observation in the ICU initially (2) AICD discharge: See above (3) Acute hypokalemia: Supplementation, recheck later this afternoon as above (4) CHF (congestive heart failure): Continue home medications Hold Lasix currently which she reports she is on 40 mg twice daily although this is not reflected in her current medicine list nor her recent discharge summary. Certainly this could cause hypokalemia, and medicine list will need reconciled. Likely her home potassium dosing will need increased. Qualifiers: Heart failure type: diastolic Heart failure chronicity: chronic Qualified Code(s): I50.32 - Chronic diastolic (congestive) heart failure (5) Hydronephrosis, left: Has nephrostomy tube on the left, placed in September, from what I understand secondary to stricture and hydronephrosis Plan Other medical problems as listed in past medical history Full code Lovenox for DVT prophylaxis Attestations Medical Necessity Statement*: Will require less than 2 midnight stay for evaluation and treatment of defibrillator discharge associated with hypokalemia Diagnoses Ventricular tachycardia I47.20 AICD discharge Z45.02 Acute hypokalemia E87.6 CHF (congestive heart failure) I50.32 Heart failure type: diastolic Heart failure chronicity: chronic Hydronephrosis, left N13.30 Time Spent (min) 39
[2022-12-07 06:16] LABS: Magnesium 1.8 mg/dL (1.7-2.3)
[2022-12-07] MEDS: lidocaine 1% 5 ML in potassium chloride premix 100 ML 25 ML IV (06:36)
--- NOTE | 2022-12-07 06:56 | PC.PHAR ---
pt states she takes care of her own medications-pt states she is taking lasix 40mg bid ext med history shows lasix 40mg daily filled 11/02/22 30d/s and 20mg bid filled 10/28/22 90d/s-ext med history shows norco 7.5/325mg filled 12/02/22 2d/s pt states mary couldnt get the medication and didnt fill it -pt states she is not taking kcl 40meq filled 10/25/22 5d/s or 10meq daily filled 11/17/22 5d/s-notes are made in the pharmacy comments
[2022-12-07 07:01] LABS: Troponin 5 2HR 15.55 ng/L (0-10)
[2022-12-07 07:06] LABS: Troponin 5 2HR Delta 4.55 ABS# (0-10)
--- NOTE | 2022-12-07 08:29 | PM.CONSULT ---
Providers/Reason For Consult Consulting Physician/Specialty*: BRIDGET Hill MD/cardiology Reason for Consult*: patient with nonischemic cardiomyopathy, status post ICD implantation, presenting with ICD discharge Requesting Physician: Dr. Boucher Attending Physician: Delicia Boucher MD Primary Care Provider: Mavis Peterson History of Present Illness History of Present Illness Elena Pulliam is a 52 year old female with a history of nonischemic cardiomyopathy, status post ICD implantation, presenting with the complaints of an ICD discharge. This patient was in the hospital on the eighth of this month with a similar complaint. According to the patient, she was sleeping on a couch and she woke up with feeling of pounding in the heart. She had associated dizziness. This was followed by the ICD shock. She has not had any chest pain prior to this event or following this event. She is known to be noncompliant with the medication. Apparently she ran out of her potassium and some other medications few days ago. She has no fever or chills. No cough. She is known to have LV ejection fraction around 20 to 25%. She had the first ICD implantation in 2007. She had the ICD revision in March [address] Basilio at the [facility]. The ICD interrogation records are not available at this time of dictation. Based on the ER physician's report, patient had a 1 ICD discharge this morning. It is not clear to me whether she had any ATP or not, prior to the discharge. Review of Systems Narrative: CONSTITUTIONAL: No fever or chills. EYES: No blurring of vision or other visual disturbances lately. ENT: No hoarseness of voice, auditory disturbances or sore throat. CARDIOVASCULAR: As mentioned above. RESPIRATORY: No significant cough. GASTROINTESTINAL: No hematemesis or melena. GENITOURINARY: No dysuria or hematuria. INTEGUMENTARY: No skin rashes or history of skin cancer. NEURO: No transient ischemic attacks or amaurosis. PSYCHIATRIC: No history of psychosis or major depression. HEMATOLOGIC: No bleeding disorders or significant anemia. ENDOCRINE: No history of polyuria or polydipsia. MUSCULOSKELETAL: No recent joint pain or swelling. ALLERGY/IMMUNOLOGY: As mentioned above. Medications/Allergies Home Medications Medication Instructions Recorded Confirmed Last Taken Type citalopram 40 mg tablet (Celexa) 40 mg PO QPM 01/31/20 12/07/2223 History zolpidem 10 mg tablet 10 mg PO BEDTIME 01/31/20 12/07/22 11/15/22 History aspirin 81 mg tablet,delayed 162 mg PO QAM 01/20/21 12/07/22 11/16/22 History release (Adult Low Dose Aspirin) cyanocobalamin (vitamin B-12) 50 50 mcg PO QAM 11/30/21 12/07/22 11/16/22 History mcg tablet (Vitamin B-12) montelukast 10 mg tablet 10 mg PO QAM 11/30/21 12/07/22 11/16/22 History sacubitril 97 mg-valsartan 103 mg 1 tab PO BID #120 tabs 09/14/22 12/07/22 11/16/22 Rx tablet capsaicin 0.025 % topical cream 1 applic topical QID PRN Pain #60 10/02/22 12/07/22 Unknown Rx grams acetaminophen 500 mg tablet 1,000 mg PO Q6H PRN Pain 10/26/22 12/07/22 Unknown History omeprazole 20 mg capsule,delayed 20 mg PO BID 10/26/22 12/07/22 11/16/22 History release carvedilol 6.25 mg tablet 6.25 mg PO BID #180 tabs 10/28/22 12/07/22 11/16/22 Rx albuterol sulfate 90 mcg/actuation 2 puff inhalation QID PRN 11/10/22 12/07/22 Unknown History aerosol inhaler Shortness Of Breath nitroglycerin 0.4 mg sublingual 0.4 mg sublingual Q5M PRN Chest 11/10/22 12/07/22 Unknown History tablet (Nitrostat) Pain furosemide 40 mg tablet 40 mg PO BID 12/07/22 12/07/22 Unknown History gabapentin 100 mg capsule 100 mg PO TID 12/07/22 12/07/22 1 Week Ago History ~11/30/22 see pharmacy comment Allergies Allergy/AdvReac Type Severity Reaction Status Date / Time egg Allergy unknown Verified 12/07/22 06:47 Current Medications Generic Name Dose Route Start Last Admin Trade Name Freq PRN Reason Stop Dose Admin Lidocaine HCl 5 ml/ Potassium 105 mls @ 26.25 mls/hr 12/07/22 06:06 12/07/22 06:36 Chloride IV 12/07/22 10:05 25 mls/hr ONCE ONE Administration PFSH Acute PFSH: Medical History AICD discharge CHF (congestive heart failure) Related to nonischemic cardiomyopathy, most recent ejection fraction with with EF 42%. History of recurrent UTIs History of TIA (transient ischemic attack) HTN (hypertension) Hypokalemia ICD (implantable cardioverter-defibrillator) in place Liver mass Mass of right lobe of liver ~3.5 x 4 cm, indeterminant, hypodense, first noted 11/2021 Nonischemic cardiomyopathy Specific etiology unknown, may have been viral or related to uncontrolled hypertension from her recollection Echocardiogram November 2021 with ejection fraction of 42% - 05/17/22 echo EF now 25% Obstructive pyelonephritis (~11/2021) Syncope Urolithiasis Multi stone former. Complicated by at least 1 episode of obstructive pyelonephritis. Multiple procedures required to treat Surgical History S/P ureteral stent placement (~11/2021) Status post cholecystectomy Status post placement of cardiac pacemaker Family History Father , AT AGE 77 CAD (coronary artery disease) Cancer lung cancer Mother , AT AGE 60 Cancer OVARIAN Denies family history of Clotting disorder Anesthesia complication Bleeding disorder Social History Smoking and tobacco status: current every day smoker cigarettes Packs smoked per day: 0.5 Years cigarettes smoked: 45 Second hand smoke exposure: Yes Alcohol intake: current Lives independently: Yes Marital status: service: No Current occupational status: disabled Current gender identity: Female Vitals/I&O/Wt Last Vital Signs Temp 97.9 F 12/07/22 04:38 Pulse 76 12/07/22 06:45 Resp 17 12/07/22 06:45 BP 116/57 12/07/22 06:45 Pulse Ox 92 12/07/22 06:45 O2 Del Method 12/07/22 06:45 Physical Exam Narrative: GENERAL: The patient is alert and oriented times three. Not in any acute distress. HEENT: No significant pallor, icterus or lymphadenopathy.Oral cavity: There are no mucous membrane lesions. NECK: Trachea appears to be central. No masses noted. No JVD or thyromegaly appreciated. RESPIRATORY: Chest is symmetrical. No intercostals muscle retraction or any accessory muscle activation. There is no chest wall tenderness. Breath sounds are heard bilaterally. No rales or rhonchi heard. No evidence of any consolidation. BREASTS: Deferred. HEART: The heart sounds are normal. No S3 or S4. No significant murmurs. No pericardial rub. Shortness of the lower sternal border. No diastolic murmurs ABDOMEN: No vessel pulsations or distention. No tenderness. No organomegaly appreciated. Bowel sounds are normally heard. : Deferred. RECTAL: Deferred. LYMPHATIC: No lymphadenopathy noted in the neck. EXTREMITIES: No edema or cyanosis. Peripheral pulses are palpable but somewhat weak bilaterally MUSCULOSKELETAL: No acute joint deformities or swelling SKIN: There are no significant rashes or ecchymosis NEUROPSYCHIATRIC: The patient is alert and oriented x3. Appears to be in a good mood. No tremors or rigidity noted. Data 12/07/22 04:45 12/07/22 04:45 Other Labs: Laboratory Last Values WBC 6.6 10^3/uL (4.0-10.0) 12/07/22 04:45 RBC 3.58 10^6/uL (4.1-5.3) L 12/07/22 04:45 Hgb 12.1 g/dL (11.5-15.3) 12/07/22 04:45 Hct 36.1 % (37.0-47.0) L 12/07/22 04:45 MCV 100.8 fl (81-99) H 12/07/22 04:45 MCH 33.8 pg (28.0-34.0) 12/07/22 04:45 MCHC 33.5 g/dL (30.0-36.0) 12/07/22 04:45 RDW 12.3 % (12.1-15.1) 12/07/22 04:45 Plt Count 153 10^3/cmm (130-400) 12/07/22 04:45 MPV 11.1 fL (7.4-10.4) H 12/07/22 04:45 Neut % (Auto) 58.1 % 12/07/22 04:45 Lymph % (Auto) 29.7 % 12/07/22 04:45 [place] % (Auto) 6.4 % 12/07/22 04:45 Eos % (Auto) 4.0 % 12/07/22 04:45 Baso % (Auto) 1.5 % 12/07/22 04:45 Neut # (Auto) 3.81 10^3/uL (1.8-7.7) 12/07/22 04:45 Lymph # (Auto) 2.0 10^3/uL (0.8-4.8) 12/07/22 04:45 [place] # (Auto) 0.4 10^3/uL (0.2-0.9) 12/07/22 04:45 Eos # (Auto) 0.3 10^3/uL (0.0-0.8) 12/07/22 04:45 Baso # (Auto) 0.1 10^3/uL (0.0-0.1) 12/07/22 04:45 Nucleated RBC % (auto) 0 % 12/07/22 04:45 Nucleated RBCs # 0.0 /100WBC 12/07/22 04:45 PT 13.90 SECONDS (12.1-14.9) 12/07/22 04:45 INR 1.03 (0.8-1.2) 12/07/22 04:45 Sodium 137 mmol/L (136-145) 12/07/22 04:45 Potassium 2.5 mmol/L (3.5-5.1) L* 12/07/22 04:45 Chloride 99 mmol/L (98-107) 12/07/22 04:45 Carbon Dioxide 23 mmol/L (22-29) 12/07/22 04:45 Anion Gap 17.5 (5-19) 12/07/22 04:45 BUN 19 mg/dL (6-20) 12/07/22 04:45 Creatinine 1.2 mg/dL (0.5-0.9) H 12/07/22 04:45 GFR Calculation 47.2 mL/min (90-130) L 12/07/22 04:45 Glucose 95 mg/dL (65-115) 12/07/22 04:45 Calculated Osmolality 286 mOsm/kg (285-295) 12/07/22 04:45 Calcium 8.7 mg/dL (8.5-10.5) 12/07/22 04:45 Magnesium 1.8 mg/dL (1.7-2.3) 12/07/22 04:45 Total Bilirubin 0.3 mg/dL (0.15-1.2) 12/07/22 04:45 AST 14 U/L (0-32) 12/07/22 04:45 ALT 9 U/L (0-33) 12/07/22 04:45 Alkaline Phosphatase 109 U/L (35-105) H 12/07/22 04:45 Troponin T Baseline 11 ng/L (0-10) H 12/07/22 04:45 Troponin T 120 Minute 15.55 ng/L (0-10) H 12/07/22 06:38 Delta Troponin T 4.55 ABS# (0-10) 12/07/22 06:38 Total Protein 6.4 g/dL (6.6-8.7) L 12/07/22 04:45 Albumin 3.7 g/dL (3.5-5.2) 12/07/22 04:45 Globulin 2.7 g/dL (1.3-4.6) 12/07/22 04:45 Echo: My impression: The echocardiogram done on 05/17/2022 revealed 1. Moderately increased left ventricular cavity size. Severely ?decreased left ventricular systolic function. Left ventricular ?ejection fraction is estimated at 25 %. Severe global left ?ventricular hypokinesis. ?2. Normal right ventricular size and systolic function. ?3. Moderate-severe mitral valve regurgitation. ?4. Pulmonary artery pressure estimated at 43 mm Hg. ?5. When compared to study dated 11/30/2021, left ventrivular ?systolic function may have decreased from 30-35% to 25% now. ELIZA: My impression: The ELIZA done on 05/20/2022 revealed 1. Markedly dilated left ventricle. Severely decreased left ?ventricular systolic function. Left ventricular ejection ?fraction is estimated at 25 %.? Severe global hypokinesis. ?2. Normal right ventricular size and systolic function. ?3. Mild mitral valve regurgitation. ?4. Trace to mild tricuspid valve regurgitation. Myocardial perfusion imaging: My impression: Myocardial perfusion imaging on 05/18/2022 revealed 1. Large sized fixed perfusion abnormality of entire inferior, basal to apical ?inferolateral, basal to apical septal and apical apical bowles. ?2. 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 ?3. The left ventricular ejection fraction is markedly reduced with a value of ?24%. ?4. Severe global hypokinesis. ?5.? EKG portion of the study will be reported separately. ?6.? No significant coronary ischemia based on the study. EKG 1: My Interpretation: The EKG showed a sinus rhythm with frequent PVCs in the form of trigeminy. Left bundle branch block pattern. Nonspecific ST-T changes. A&P Assessment and plan (1) AICD discharge: most likely the severe hypokalemia might have precipitated this event. IV potassium supplement would be appropriate. I will also start her on p.o. potassium and spironolactone (2) Ventricular tachycardia: Since these episodes where precipitated with electrolyte abnormalities, I may hold off on any antiarrhythmic drugs at this point. Importance of compliance with medication were discussed. (3) Hypokalemia: As mentioned above. In addition to the IV potassium, may be started on potassium p.o. 20 mg twice daily along with spironolactone 25 mg p.o. daily (4) Hypertension: Currently normotensive. Continue on the current medications. (5) CKD (chronic kidney disease): Patient has an appointment to see the behavioral services tech in [place]. Advised to keep the appointment. (6) Nicotine dependence, cigarettes, uncomplicated: Patient strongly advised to quit smoking. Cardiovascular implications were discussed with (7) Non-ischemic cardiomyopathy: LV ejection fraction was 25% by echocardiogram done in May of last year. Apparently this has not changed much Plan Based on the clinical progress, further recommendations will be made. Thank you for the opportunity to evaluate this patient and make these recommendations Consult Attestations Medical Necessity Statement: Patient requires continued hospital stay for close monitoring and further management Coding Level of Care Code 78673 Diagnoses AICD discharge Z45.02 Ventricular tachycardia I47.20 Hypokalemia E87.6 Hypertension I10 CKD (chronic kidney disease) N18.9 Nicotine dependence, cigarettes, uncomplicated F17.210 Non-ischemic cardiomyopathy I42.8
[2022-12-07] MEDS: acetaminophen 325 mg Tablet 650 MG PO ×2 (08:35→16:14)
[2022-12-07] MEDS: gabapentin 100 mg Capsule 200 MG PO ×3 (09:16→20:10)
[2022-12-07] MEDS: carvedilol 6.25 mg Tablet PO ×2 (09:16→17:15)
[2022-12-07] MEDS: pantoprazole DR 40 mg Tablet PO (09:16)
--- NOTE | 2022-12-07 10:45 | PC.CHAP ---
Pastoral Care Encounter/Spiritual Assessment Type of Contact [] Declined lens grinder rough visit [] Patient/Family/Request visit [] Outpatient visit [] Follow-up visit [] Physician referral [] Code/Alert [x] Routine visit [] Staff referral [] Actively dying [] Patient sleeping [x] Family support [] [] Out of room [] Palliative care [] [] Receiving care in room [] Pre-surgical visit [] Trauma [] Long length of stay [x] ICU visit [] Other: Relational/Emotional Strength [] Patient feels connected with others/family/visitors/staff [] Distress [] Loneliness/isolation [] Abandonment Spirituality of Patient [] Person of Capri [] Attends Mormon of their Capri [] Believes in Prayer [] Reads Bible or Jewish materials [] There are Spiritual issues to be addressed Patching Machine Operator Interventions [x] Prayer [] Active listening [] Non-anxious presence [] Spiritual/emotional support [] Crisis/trauma care [] Spiritual counseling [] Bereavement support [] Provided bereavement packet [] Provided Bible/devotional materials [] Provided toy/stuffed animal, coloring book to patient or family member [] Provided Communion [] Anointing/[place] [] Salvation [x] Completed spiritual assessment [] Other: Impact on Illness or Injury [] Angry [] Fearful [] Anxious [] Often cries [] Exhaustion [] Unable to work [] Unable to attend gnosticist [] Unable to walk/stand [] Unable to read [] Unable to drive [] Unable to eat/drink [] Unable to sleep [] Unable to be with family [] Patient intubated [] Other: Summary Time spent with patient
--- NOTE | 2022-12-07 11:42 | PM.MISC ---
Miscellaneous Note Note: Patient evaluated No active chest pain Complaining of headache Potassium noted 80 mEq potassium given this morning 1 g magnesium given this morning S1, S2 No active chest pain or shortness of breath Doing well on room air Pleasant and cooperative Euvolemic We will follow-up with cardiology recommendations No need of amiodarone for now Replenish potassium keep potassium above 4 magnesium above 2 In case of any further event as pressure will stay low to start amiodarone and call cardiology, no active plan for coronary angiogram
[2022-12-07 12:51] LABS: Troponin 5 6HR 14.78 ng/L (0-10); Troponin 5 6HR Delta 3.78 ng/L (0-12)
[2022-12-07] MEDS: TRAMadol 50 mg Tablet PO ×2 (12:51→20:11)
[2022-12-07 13:12] LABS: Anion Gap 18.8 (5-19); Blood Urea Nitrogen 21 mg/dL (6-20); Calcium 9.4 mg/dL (8.5-10.5); Carbon Dioxide 25 mmol/L (22-29); Chloride 98 mmol/L (98-107); Glucose 124 mg/dL (65-115); Osmolality Calculated 290 mOsm/kg (285-295); Potassium 3.8 mmol/L (3.5-5.1); Sodium 138 mmol/L (136-145)
[2022-12-07] MEDS: zolpidem 5 mg Tablet 10 MG PO (20:10)
[2022-12-07] MEDS: citalopram 20 mg Tablet 40 MG PO (20:12)
[2022-12-08] VITALS (53 sets, daily range): BP systolic 88–109; BP diastolic 48–78; PULSE 68–90; RESP 11–27; TEMP 36.8–37.1; O2SAT 87–100
[2022-12-08 03:07] LABS: Basophils # 0.1 10^3/uL (0.0-0.1); Basophils % 0.9 %; Eosinophils # 0.3 10^3/uL (0.0-0.8); Eosinophils % 3.9 %; Hematocrit 35.9 % (37.0-47.0); Hemoglobin 11.6 g/dL (11.5-15.3); Lymphocytes # 2.2 10^3/uL (0.8-4.8); Lymphocytes % 33.5 %; Mean Corpuscular HGB Conc 32.3 g/dL (30.0-36.0); Mean Corpuscular Hemoglobin 33.9 pg (28.0-34.0); Mean Platelet Volume 11.7 fL (7.4-10.4); Monocytes # 0.4 10^3/uL (0.2-0.9); Monocytes % 5.6 %; Neutrophils # 3.71 10^3/uL (1.8-7.7); Neutrophils % 55.8 %; Nucleated Red Blood Cells % 0 %; Platelet Count 143 10^3/cmm (130-400); Red Blood Count 3.42 10^6/uL (4.1-5.3); Red Cell Distribution Width 12.2 % (12.1-15.1); White Blood Count 6.7 10^3/uL (4.0-10.0)
[2022-12-08 03:21] LABS: Anion Gap 13.5 (5-19); Blood Urea Nitrogen 22 mg/dL (6-20); Calcium 9.2 mg/dL (8.5-10.5); Carbon Dioxide 29 mmol/L (22-29); Chloride 100 mmol/L (98-107); Glomerular Filtration Rate 47.2 mL/min (90-130); Glucose 95 mg/dL (65-115); Magnesium 2.2 mg/dL (1.7-2.3); Osmolality Calculated 291 mOsm/kg (285-295); Potassium 3.5 mmol/L (3.5-5.1); Sodium 139 mmol/L (136-145)
[2022-12-08] MEDS: aspirin 81 mg EC Tablet 162 MG PO (05:04)
[2022-12-08] MEDS: TRAMadol 50 mg Tablet PO (05:07)
--- NOTE | 2022-12-08 08:14 | PM.DCS ---
Discharge Providers Date of Admission: 12/07/22 08:00 Date of Discharge: December 08, 2022 Attending Provider at Admission: Delicia Boucher MD Attending Provider at Discharge: Sima Gonzales MD Primary Care Provider: Mavis Peterson Diagnoses at Discharge Discharge Diagnosis (1) AICD discharge: Status: Acute (2) Ventricular tachycardia: Status: Acute (3) Hypokalemia: Status: Acute (4) Hypertension: Status: Acute (5) CKD (chronic kidney disease): Status: Acute (6) Nicotine dependence, cigarettes, uncomplicated: Status: Chronic (7) Non-ischemic cardiomyopathy: Status: Acute Reason for Visit Reason for Visit: Chest Pain Hospital Course Hospital Course 52-year female who presented to hospital after her AICD discharge, patient was relaxing and sitting comfortably in the couch when she experienced tachypnea palpitations and her AICD discharge. Pacer interrogation revealed she had V. tach episode which was terminated it was placed. By hypokalemia hypomagnesemia. Electrolytes were replenished aggressively. She was taking Lasix without taking any electrolytes.. She has history of nonischemic cardiomyopathy EF 25%. Remained hemodynamically stable. Leger cath was placed when she had 1 episode of urinary retention, patient is able to void before discharge, Dr. Abernathy has recommended addition of spironolactone. Patient has appointment to see moose hunter in [place] for chronic kidney disease. I have prescribed her potassium and magnesium supplements at discharge. Patient did not require any antiarrhythmics during hospitalization. Being discharged w stable vitals Potassium at discharge was 3.5, magnesium 2.0 he was given 40 mEq of potassium before discharge I will cut back on her Lasix she does not need Lasix 40 mg twice a day I have asked her to take once a day Lasix 20 mg daily with potassium Physical Exam Narrative: Awake and alert Nonfocal GCS 15 Pleasant and cooperative Currently on room air S1, S2 Sinus rhythm Blood pressure 106/62 Currently on room air Urinary Catheter Management: Leger: Cath Placed During This Visit: yes Reason for Continuing Indwelling Catheter: Acute Urinary Retention or Obstruction Urinary Catheter Date of Insertion: 12/07/22 Urinary Catheter Time of Insertion: 14:15 Discharge Data Studies Completed and Pending Completed Studies During Hospitalization Category Date Time Status XR chest 1V portable [id number] Stat Exams 12/07/22 04:32 Completed Pending at discharge Category Date Time Status Magnesium Routine Lab 12/08/22 08:10 Ordered Radiology Impressions Chest X-Ray 12/07/22 04:32 IMPRESSION: Stable chest, no acute finding. Laboratory Results WBC 6.7 10^3/uL (4.0-10.0) 12/08/22 02:17 RBC 3.42 10^6/uL (4.1-5.3) L 12/08/22 02:17 Hgb 11.6 g/dL (11.5-15.3) 12/08/22 02:17 Hct 35.9 % (37.0-47.0) L 12/08/22 02:17 MCV 105.0 fl (81-99) H 12/08/22 02:17 MCH 33.9 pg (28.0-34.0) 12/08/22 02:17 MCHC 32.3 g/dL (30.0-36.0) 12/08/22 02:17 RDW 12.2 % (12.1-15.1) 12/08/22 02:17 Plt Count 143 10^3/cmm (130-400) 12/08/22 02:17 MPV 11.7 fL (7.4-10.4) H 12/08/22 02:17 Neut % (Auto) 55.8 % 12/08/22 02:17 Lymph % (Auto) 33.5 % 12/08/22 02:17 [place] % (Auto) 5.6 % 12/08/22 02:17 Eos % (Auto) 3.9 % 12/08/22 02:17 Baso % (Auto) 0.9 % 12/08/22 02:17 Neut # (Auto) 3.71 10^3/uL (1.8-7.7) 12/08/22 02:17 Lymph # (Auto) 2.2 10^3/uL (0.8-4.8) 12/08/22 02:17 [place] # (Auto) 0.4 10^3/uL (0.2-0.9) 12/08/22 02:17 Eos # (Auto) 0.3 10^3/uL (0.0-0.8) 12/08/22 02:17 Baso # (Auto) 0.1 10^3/uL (0.0-0.1) 12/08/22 02:17 Nucleated RBC % (auto) 0 % 12/08/22 02:17 Nucleated RBCs # 0.0 /100WBC 12/08/22 02:17 PT 13.90 SECONDS (12.1-14.9) 12/07/22 04:45 INR 1.03 (0.8-1.2) 12/07/22 04:45 Sodium 139 mmol/L (136-145) 12/08/22 02:17 Potassium 3.5 mmol/L (3.5-5.1) 12/08/22 02:17 Chloride 100 mmol/L (98-107) 12/08/22 02:17 Carbon Dioxide 29 mmol/L (22-29) 12/08/22 02:17 Anion Gap 13.5 (5-19) 12/08/22 02:17 BUN 22 mg/dL (6-20) H 12/08/22 02:17 Creatinine 1.2 mg/dL (0.5-0.9) H 12/08/22 02:17 GFR Calculation 47.2 mL/min (90-130) L 12/08/22 02:17 Glucose 95 mg/dL (65-115) 12/08/22 02:17 Calculated Osmolality 291 mOsm/kg (285-295) 12/08/22 02:17 Calcium 9.2 mg/dL (8.5-10.5) 12/08/22 02:17 Magnesium 2.2 mg/dL (1.7-2.3) 12/08/22 02:17 Total Bilirubin 0.3 mg/dL (0.15-1.2) 12/07/22 04:45 AST 14 U/L (0-32) 12/07/22 04:45 ALT 9 U/L (0-33) 12/07/22 04:45 Alkaline Phosphatase 109 U/L (35-105) H 12/07/22 04:45 Troponin T Baseline 11 ng/L (0-10) H 12/07/22 04:45 Troponin T 120 Minute 15.55 ng/L (0-10) H 12/07/22 06:38 Delta Troponin T 4.55 ABS# (0-10) 12/07/22 06:38 Troponin T Hi Sens 6Hr 14.78 ng/L (0-10) H 12/07/22 11:30 Troponin T Hi Sens 6Hr Delta 3.78 ng/L (0-12) 12/07/22 11:30 Total Protein 6.4 g/dL (6.6-8.7) L 12/07/22 04:45 Albumin 3.7 g/dL (3.5-5.2) 12/07/22 04:45 Globulin 2.7 g/dL (1.3-4.6) 12/07/22 04:45 Vitals Last Vital Signs Temp 98.2 F 12/08/22 04:00 Pulse 76 12/08/22 06:15 Resp 17 12/08/22 06:15 BP 99/66 12/08/22 06:15 Pulse Ox 94 12/08/22 06:15 O2 Del Method 12/08/22 00:28 Discharge Plan Discharge Patient Disposition: Home Condition: Stable Prescriptions: New potassium chloride 10 mEq tablet extended release 10 meq PO DAILY Qty: 30 1RF Rx Instructions: Only take with Lasix magnesium 200 mg tablet 200 mg PO DAILY Qty: 30 1RF spironolactone 25 mg tablet 25 mg PO DAILY Qty: 30 3RF Continued citalopram [Celexa] 40 mg tablet 40 mg PO QPM zolpidem 10 mg tablet 10 mg PO BEDTIME aspirin [Adult Low Dose Aspirin] 81 mg tablet,delayed release (DR/EC) 162 mg PO QAM Hold Instructions: Resume on 10/19/22. Until after percutaneous tube placed in the left kidney carvedilol 6.25 mg tablet 6.25 mg PO BID Qty: 180 2RF Rx Instructions: must administer with a meal/food sacubitril-valsartan 97-103 mg tablet 1 tab PO BID Qty: 120 3RF Hold Instructions: Resume on 10/09/22. Vitamin B-12 50 mcg Tablet 50 mcg PO QAM montelukast 10 mg tablet 10 mg PO QAM gabapentin 100 mg capsule 100 mg PO TID capsaicin 0.025 % Cream 1 applic topical QID PRN (Reason: Pain) Qty: 60 0RF acetaminophen 500 mg Tablet 1,000 mg PO Q6H PRN (Reason: Pain) omeprazole 20 mg capsule,delayed release(DR/EC) 20 mg PO BID nitroglycerin [Nitrostat] 0.4 mg Tablet, Sublingual 0.4 mg SUBLINGUAL Q5M PRN (Reason: Chest Pain) Rx Instructions: do not exceed 3 doses per episode albuterol sulfate 90 mcg/actuation HFA aerosol inhaler 2 puff INHALATION QID PRN (Reason: Shortness Of Breath) Changed furosemide 40 mg tablet 20 mg PO DAILY Qty: 30 0RF Discharge Orders: Discharge Order (Routine); Ordered 12/08/22 Ordered By: Sima Gonzales Referrals: Michael Hill MD [Physician] - (After SENIOR CLINICAL DATA COORDINATOR nurse Desire Callahan follow up :will schedule your appointment with ,2 month visit) Desire Callahan FNP [Nurse Practitioner] - (appointment scheduled :December at time of 08:15 am ) Mavis Peterson PA [Primary Care Provider] - 4-7 days (appointment scheduled: at time of 1:15 pm ) Patient Instructions: Spironolactone (By mouth), Potassium Chloride (By mouth) (K-Dur, K-Bina, K-Tab, Mikie Mur), Magnesium (By mouth), Heart Failure (DC), Supraventricular Tachycardia (DC), Hypokalemia (DC), Fall Prevention (DC), CHF Stoplight, Chest Pain Stoplight, Opioid Safety Discharge Attestations Time Spent in Discharge Care*: less than 30 min Quality Metrics Clinical Quality Measures [ No reported AMI, CVA or VTE this stay] Coding Level of Care Code Acute Code for Chg Fwd Diagnoses AICD discharge Z45.02 Ventricular tachycardia I47.20 Hypokalemia E87.6 Hypertension I10 CKD (chronic kidney disease) N18.9 Nicotine dependence, cigarettes, uncomplicated F17.210 Non-ischemic cardiomyopathy I42.8
[2022-12-08] MEDS: potassium chloride ER 20 mEq Tablet 40 MEQ PO (08:26)
[2022-12-08] MEDS: pantoprazole DR 40 mg Tablet PO (08:26)
[2022-12-08] MEDS: carvedilol 6.25 mg Tablet PO (08:26)
[2022-12-08] MEDS: gabapentin 100 mg Capsule 200 MG PO (08:26)
--- NOTE | 2022-12-08 10:09 | P.PN_ITS ---
Subjective Subjective: Patient has not had any recurrence of ventricular tachycardia/fibrillation since the hospital admission. The BMP today revealed a potassium of 3.5. Patient has no specific complaints at this point. Denies any chest pain or shortness of breath. Medications: Medication Review Details: Current Medications Acetaminophen (Acetaminophen 325 Mg Tablet) 650 mg PO Q6H PRN PRN Reason: MILD PAIN Last Admin: 12/07/22 16:14 Dose: 650 mg Aspirin (Aspirin 81 Mg Ec Tablet) 162 mg PO QAM [facility] Last Admin: 12/08/22 05:04 Dose: 162 mg Carvedilol (Carvedilol 6.25 Mg Tablet) 6.25 mg PO BID [facility] Last Admin: 12/08/22 08:26 Dose: 6.25 mg Citalopram Hydrobromide (Citalopram 20 Mg Tablet) 40 mg PO QPM [facility] Last Admin: 12/07/22 20:12 Dose: 40 mg Gabapentin (Gabapentin 100 Mg Capsule) 200 mg PO TID [facility] Last Admin: 12/08/22 08:26 Dose: 200 mg Non-Formulary Medication (Sacubitril-Valsartan) 1 tab PO BID [facility] Last Admin: 12/08/22 08:27 Dose: Not Given Ondansetron HCl (Ondansetron 2 Mg/Ml Sdv 2 Ml) 4 mg IVP Q6H PRN PRN Reason: NAUSEA AND VOMITING Last Admin: 12/07/22 20:11 Dose: 4 mg Pantoprazole Sodium (Pantoprazole Dr 40 Mg Tablet) 40 mg PO DAILY [facility] Last Admin: 12/08/22 08:26 Dose: 40 mg Potassium Chloride (Potassium Chloride Er 20 Meq Tablet) 40 meq PO ONCE ONE Stop: 12/08/22 08:14 Last Admin: 12/08/22 08:26 Dose: 40 meq Tramadol HCl (Tramadol 50 Mg Tablet) 50 mg PO Q6H PRN PRN Reason: MODERATE PAIN Last Admin: 12/08/22 05:07 Dose: 50 mg Zolpidem Tartrate (Zolpidem 5 Mg Tablet) 10 mg PO BEDTIME [facility] Last Admin: 12/07/22 20:10 Dose: 10 mg Vitals/I&O/Wt Last Vital Signs Temp 98.7 F 12/08/22 08:30 Pulse 81 12/08/22 08:30 Resp 16 12/08/22 08:30 BP 109/75 12/08/22 08:30 Pulse Ox 98 12/08/22 08:30 O2 Del Method 12/08/22 08:30 12/07/22 12/08/22 12/08/22 22:59 06:59 14:59 Intake Total 590 / 997 200 / 1197 120 / 120 Output Total 880 / 880 350 / 1230 Balance -290 / 117 -150 / -33 120 / 120 Weight last 48 hrs Weight 141 lb 8 oz Weight 140 lb Physical Exam Narrative: GENERAL: The patient is alert and oriented times three. Not in any acute distress. HEENT: No significant pallor, icterus or lymphadenopathy.Oral cavity: There are no mucous membrane lesions. NECK: Trachea appears to be central. No masses noted. No JVD or thyromegaly appreciated. RESPIRATORY: Chest is symmetrical. No intercostals muscle retraction or any accessory muscle activation. There is no chest wall tenderness. Breath sounds ar e heard bilaterally. No rales or rhonchi heard. No evidence of any consolidation. BREASTS: Deferred. HEART: The heart sounds are normal. No S3 or S4. No significant murmurs. No pericardial rub. Shortness of the lower sternal border. No diastolic murmurs ABDOMEN: No vessel pulsations or distention. No tenderness. No organomegaly appreciated. Bowel sounds are normally heard. : Deferred. RECTAL: Deferred. LYMPHATIC: No lymphadenopathy noted in the neck. EXTREMITIES: No edema or cyanosis. Peripheral pulses are palpable but somewhat weak bilaterally MUSCULOSKELETAL: No acute joint deformities or swelling SKIN: There are no significant rashes or ecchymosis NEUROPSYCHIATRIC: The patient is alert and oriented x3. Appears to be in a good mood. No tremors or rigidity noted. Urinary Catheter Management: Leger: Cath Placed During This Visit: yes Reason for Continuing Indwelling Catheter: Acute Urinary Retention or Obstruction Urinary Catheter Date of Insertion: 12/07/22 Urinary Catheter Time of Insertion: 14:15 Data 12/08/22 02:17 12/08/22 02:17 Other Labs: Laboratory Last Values WBC 6.7 10^3/uL (4.0-10.0) 12/08/22 02:17 RBC 3.42 10^6/uL (4.1-5.3) L 12/08/22 02:17 Hgb 11.6 g/dL (11.5-15.3) 12/08/22 02:17 Hct 35.9 % (37.0-47.0) L 12/08/22 02:17 MCV 105.0 fl (81-99) H 12/08/22 02:17 MCH 33.9 pg (28.0-34.0) 12/08/22 02:17 MCHC 32.3 g/dL (30.0-36.0) 12/08/22 02:17 RDW 12.2 % (12.1-15.1) 12/08/22 02:17 Plt Count 143 10^3/cmm (130-400) 12/08/22 02:17 MPV 11.7 fL (7.4-10.4) H 12/08/22 02:17 Neut % (Auto) 55.8 % 12/08/22 02:17 Lymph % (Auto) 33.5 % 12/08/22 02:17 [place] % (Auto) 5.6 % 12/08/22 02:17 Eos % (Auto) 3.9 % 12/08/22 02:17 Baso % (Auto) 0.9 % 12/08/22 02:17 Neut # (Auto) 3.71 10^3/uL (1.8-7.7) 12/08/22 02:17 Lymph # (Auto) 2.2 10^3/uL (0.8-4.8) 12/08/22 02:17 [place] # (Auto) 0.4 10^3/uL (0.2-0.9) 12/08/22 02:17 Eos # (Auto) 0.3 10^3/uL (0.0-0.8) 12/08/22 02:17 Baso # (Auto) 0.1 10^3/uL (0.0-0.1) 12/08/22 02:17 Nucleated RBC % (auto) 0 % 12/08/22 02:17 Nucleated RBCs # 0.0 /100WBC 12/08/22 02:17 PT 13.90 SECONDS (12.1-14.9) 12/07/22 04:45 INR 1.03 (0.8-1.2) 12/07/22 04:45 Sodium 139 mmol/L (136-145) 12/08/22 02:17 Potassium 3.5 mmol/L (3.5-5.1) 12/08/22 02:17 Chloride 100 mmol/L (98-107) 12/08/22 02:17 Carbon Dioxide 29 mmol/L (22-29) 12/08/22 02:17 Anion Gap 13.5 (5-19) 12/08/22 02:17 BUN 22 mg/dL (6-20) H 12/08/22 02:17 Creatinine 1.2 mg/dL (0.5-0.9) H 12/08/22 02:17 GFR Calculation 47.2 mL/min (90-130) L 12/08/22 02:17 Glucose 95 mg/dL (65-115) 12/08/22 02:17 Calculated Osmolality 291 mOsm/kg (285-295) 12/08/22 02:17 Calcium 9.2 mg/dL (8.5-10.5) 12/08/22 02:17 Magnesium 2.0 mg/dL (1.7-2.3) 12/08/22 08:47 Total Bilirubin 0.3 mg/dL (0.15-1.2) 12/07/22 04:45 AST 14 U/L (0-32) 12/07/22 04:45 ALT 9 U/L (0-33) 12/07/22 04:45 Alkaline Phosphatase 109 U/L (35-105) H 12/07/22 04:45 Troponin T Baseline 11 ng/L (0-10) H 12/07/22 04:45 Troponin T 120 Minute 15.55 ng/L (0-10) H 12/07/22 06:38 Delta Troponin T 4.55 ABS# (0-10) 12/07/22 06:38 Troponin T Hi Sens 6Hr 14.78 ng/L (0-10) H 12/07/22 11:30 Troponin T Hi Sens 6Hr Delta 3.78 ng/L (0-12) 12/07/22 11:30 Total Protein 6.4 g/dL (6.6-8.7) L 12/07/22 04:45 Albumin 3.7 g/dL (3.5-5.2) 12/07/22 04:45 Globulin 2.7 g/dL (1.3-4.6) 12/07/22 04:45 A&P Assessment and plan (1) AICD discharge: Most likely the severe hypokalemia might have precipitated this event. May continue on the current medications The importance of compliance of medication were discussed with the patient detail which is understood well. (2) Ventricular tachycardia: Since these episodes where precipitated with electrolyte abnormalities, I may hold off on any antiarrhythmic drugs at this point. Importance of compliance with medication were discussed. Reviewed the day of ice and patient report. Patient apparently had a 2 shocks at 35 J. The first 1 failed. Has not had any recurrence of arrhythmia on the monitor, since the hospital admission (3) Hypokalemia: Currently he is corrected. May continue on the current medications. (4) Hypertension: Currently normotensive. Continue on the current medications. (5) CKD (chronic kidney disease): Patient has an appointment to see the irrigation manager in [place]. Advised to keep the appointment. (6) Nicotine dependence, cigarettes, uncomplicated: Patient strongly advised to quit smoking. Cardiovascular implications were discussed with (7) Non-ischemic cardiomyopathy: LV ejection fraction was 25% by echocardiogram done in May of last year. Apparently this has not changed much Plan If the patient continues remain stable with a be discharged home today. Patient may continue on the potassium supplement and spironolactone along with other medications. If she continues to remain stable, may be discharged home today. Appointment the [facility] to be seen by the nurse practitioner next week Appointment with /Dr. Pineda in the office in 2 months Attestations Medical Necessity Statement*: Possible discharge home today Coding Level of Care Code 77994 Diagnoses AICD discharge Z45.02 Ventricular tachycardia I47.20 Hypokalemia E87.6 Hypertension I10 CKD (chronic kidney disease) N18.9 Nicotine dependence, cigarettes, uncomplicated F17.210 Non-ischemic cardiomyopathy I42.8
--- NOTE | 2022-12-08 12:14 | PC.NURSE ---
Extensive education provided to patient of follow up care, medications, Vtach, Hypokalemia, AICD discharge, Cardiac Stoplight, diet and exercise and CKD. Discussed smoking cessation. Patient had no questions at time of discharge. Patient brought via wheelchair to personal vehicle with family member as primary corrugated fastener driver.
== END 2022-12-08 12:12 | disposition home or self-care (01) ==
LOC: ER 05:51 → ICU 06:54
PROVIDERS: Internal Medicine; Admitting Provider Family Medicine; Emergency Provider Emergency Medicine; PCP Physician Assistant; Visit Provider Internal Medicine
DX: Z45.02 Encounter for adjustment and management of automatic implantable cardiac defibrillator (principal); I47.20 Ventricular tachycardia, unspecified; E87.6 Hypokalemia; I13.0 Hypertensive heart and chronic kidney disease with heart failure and stage 1 through stage 4 chronic kidney disease, or unspecified chronic kidney disease; I50.32 Chronic diastolic (congestive) heart failure; N18.9 Chronic kidney disease, unspecified; F17.210 Nicotine dependence, cigarettes, uncomplicated; I42.8 Other cardiomyopathies; Z79.82 Long term (current) use of aspirin; Z86.73 Personal history of transient ischemic attack (TIA), and cerebral infarction without residual deficits; Z91.14 Patient's other noncompliance with medication regimen
CPT/HCPCS: 36415; 51702; 71045; 80048; 80053; 83735; 84484; 85025; 85610; 93005; 96365; 96375; 96376; 99285; G0378; J1170; J2270; J2405; J3475; J3480

== ENCOUNTER 2022-12-12 11:06 | Emergency (ER) | payer MEDICARE, MEDICAID, SELFPAY ==
[2022-12-12] VITALS (18 sets, daily range): BP systolic 93–111; BP diastolic 61–77; PULSE 72–83; RESP 17–23; TEMP 36.4; O2SAT 92–100
--- NOTE | 2022-12-12 11:07 | ED_ITS ---
HPI - Chest Pain General: Chief Complaint: Chest Pain Stated Complaint: chest pain Time Seen by Provider: 12/12/22 11:07 History of Present Illness: Ms. Pulliam is a 52-year-old lady with complex past medical history including nonischemic cardiomyopathy with ICD and recent hospitalization for ICD discharge presenting to the emergency for chest pain. She reports feeling well yesterday and waking up feeling normal. At approximately 9 AM she was sitting and had onset of substernal chest pain associated with presyncopal type feeling. Moderate to severe in intensity. Some radiation to the back. Nausea but no vomiting. Denies shortness of breath or diaphoresis. Symptoms persisted however have improved by EMS administered nitroglycerin x3 and aspirin 324 mg. No other specific changes in health, exacerbating, or alleviating factors identified. Onset (ago): hour(s) Timing of current episode: constant Prior episodes: Yes Onset: during rest Pain location: substernal Pain radiation: back Severity: moderate Pain scale (0-10): 8 Quality: tightness, aching and heaviness Relieving factors: nitroglycerin (pain 8 -> 3) Exacerbating factors: nothing Associated symptoms: Reports nausea and other (presyncope) Review of Systems General: Reports: 10 or more systems reviewed and unremarkable except in HPI and below GI: Reports: nausea PFSH ED PFSH: Medical History Acute hypokalemia AICD discharge AICD discharge Chest pain CHF (congestive heart failure) Related to nonischemic cardiomyopathy, most recent ejection fraction with with EF 42%. CKD (chronic kidney disease) History of recurrent UTIs History of TIA (transient ischemic attack) HTN (hypertension) Hydronephrosis, left Hypertension Hypokalemia Hypokalemia ICD (implantable cardioverter-defibrillator) in place Liver mass Mass of right lobe of liver ~3.5 x 4 cm, indeterminant, hypodense, first noted 11/2021 Nicotine dependence, cigarettes, uncomplicated Non-ischemic cardiomyopathy Nonischemic cardiomyopathy Specific etiology unknown, may have been viral or related to uncontrolled hypertension from her recollection Echocardiogram November 2021 with ejection fraction of 42% - 05/17/22 echo EF now 25% Obstructive pyelonephritis (~11/2021) Syncope Urolithiasis Multi stone former. Complicated by at least 1 episode of obstructive pyelonephritis. Multiple procedures required to treat Ventricular tachycardia Surgical History S/P ureteral stent placement (~11/2021) Status post cholecystectomy Status post placement of cardiac pacemaker Family History Father , AT AGE 77 CAD (coronary artery disease) Cancer lung cancer Mother , AT AGE 60 Cancer OVARIAN Denies family history of Clotting disorder Anesthesia complication Bleeding disorder Social History Smoking and tobacco status: current every day smoker cigarettes Packs smoked per day: 0.5 Years cigarettes smoked: 45 Second hand smoke exposure: Yes Alcohol intake: current Lives independently: Yes Marital status: service: No Current occupational status: disabled Current gender identity: Female Physical Exam Const: COMMON NORMALS: alert GENERAL APPEARANCE: cooperative and well developed HENMT: COMMON NORMALS: normocephalic and atraumatic HEAD & SCALP: normocephalic and atraumatic Eye: COMMON NORMALS: conjunctivae normal CONJUNCTIVA: Yes conjunctivae normal SCLERA: sclerae normal Neck/C-Spine: COMMON NORMALS: supple GENERAL: Yes trachea midline Resp: COMMON NORMALS: clear to auscultation bilaterally EFFORT & INSPECTION: Yes able to speak in complete sentences AUSCULTATION: clear to auscultation bilaterally Cardio: COMMON NORMALS: regular rate and regular rhythm RATE: regular rate RHYTHM: regular rhythm GI: COMMON NORMALS: Soft to palpation PALPATION: Yes Soft to palpation and No Tenderness to palpation present (GI) Extremity: GENERAL: Yes normal exam except as noted and No edema Neuro: COMMON NORMALS: moves all extremities SENSORIUM/ORIENTATION: Yes alert and No Orientation impaired Psych: COMMON NORMALS: mental status grossly normal and Normal thought process present THOUGHT PROCESS: Normal thought process present Course Vital Signs: Vital signs: Vital Signs Temperature 97.6 F 12/12/22 11:30 Pulse Rate 76 12/12/22 15:45 Respiratory Rate 19 H 12/12/22 15:30 Blood Pressure 102/65 12/12/22 15:45 Pulse Oximetry 98 12/12/22 15:45 MDM - Chest Pain Medical Decision Making 52-year-old lady with complex history presenting with chest pain. Patient is nontoxic on exam. Exam as above. EKG notable for sinus rhythm, interventricular conduction delay, left axis deviation, nonspecific ST segment abnormalities, no STEMI. Labs notable for no leukocytosis, near baseline macrocytic anemia. Metabolic panel with near baseline CKD, no significant electrolyte derangement. Negative range 2-hour delta troponin. BNP is mildly elevated. Chest x-ray demonstrates no lobar consolidation or pneumothorax. Patient treated during ED course with analgesia and had improvement. Pacemaker interrogated and no abnormality identified, no discharges. Patient has had recent evaluation by cardiology and no indication for repeat hospit alization for cardiac work-up. Most likely etiology of patient's symptoms is unspecified chest pain. The results of ED evaluation were discussed with the patient including prescriptions and/or symptomatic cares (if applicable) including appropriate and responsible use, followup plan, and return precautions. The patient verbalized understanding and felt safe for discharge. Medical Records I reviewed the patient's medical records. Lab Data I reviewed the patient's lab results. 12/12/22 11:38 12/12/22 11:38 Radiology Impressions Chest X-Ray 12/12/22 11:12 IMPRESSION: No acute cardiopulmonary abnormality. Laboratory Results WBC 6.3 10^3/uL (4.0-10.0) 12/12/22 11:38 RBC 3.39 10^6/uL (4.1-5.3) L 12/12/22 11:38 Hgb 11.3 g/dL (11.5-15.3) L 12/12/22 11:38 Hct 34.7 % (37.0-47.0) L 12/12/22 11:38 MCV 102.4 fl (81-99) H 12/12/22 11:38 MCH 33.3 pg (28.0-34.0) 12/12/22 11:38 MCHC 32.6 g/dL (30.0-36.0) 12/12/22 11:38 RDW 12.1 % (12.1-15.1) 12/12/22 11:38 Plt Count 139 10^3/cmm (130-400) 12/12/22 11:38 MPV 10.9 fL (7.4-10.4) H 12/12/22 11:38 Neut % (Auto) 61.8 % 12/12/22 11:38 Lymph % (Auto) 26.4 % 12/12/22 11:38 [facility] % (Auto) 6.2 % 12/12/22 11:38 Eos % (Auto) 4.2 % 12/12/22 11:38 Baso % (Auto) 1.1 % 12/12/22 11:38 Neut # (Auto) 3.87 10^3/uL (1.8-7.7) 12/12/22 11:38 Lymph # (Auto) 1.7 10^3/uL (0.8-4.8) 12/12/22 11:38 [facility] # (Auto) 0.4 10^3/uL (0.2-0.9) 12/12/22 11:38 Eos # (Auto) 0.3 10^3/uL (0.0-0.8) 12/12/22 11:38 Baso # (Auto) 0.1 10^3/uL (0.0-0.1) 12/12/22 11:38 Nucleated RBC % (auto) 0 % 12/12/22 11:38 Nucleated RBCs # 0.0 /100WBC 12/12/22 11:38 Sodium 140 mmol/L (136-145) 12/12/22 11:38 Potassium 4.0 mmol/L (3.5-5.1) 12/12/22 11:38 Chloride 103 mmol/L (98-107) 12/12/22 11:38 Carbon Dioxide 25 mmol/L (22-29) 12/12/22 11:38 Anion Gap 16.0 (5-19) 12/12/22 11:38 BUN 22 mg/dL (6-20) H 12/12/22 11:38 Creatinine 1.1 mg/dL (0.5-0.9) H 12/12/22 11:38 GFR Calculation 52.2 mL/min (90-130) L 12/12/22 11:38 Glucose 83 mg/dL (65-115) 12/12/22 11:38 Calculated Osmolality 292 mOsm/kg (285-295) 12/12/22 11:38 Calcium 9.1 mg/dL (8.5-10.5) 12/12/22 11:38 Magnesium 2.0 mg/dL (1.7-2.3) 12/12/22 11:38 Total Bilirubin 0.4 mg/dL (0.15-1.2) 12/12/22 11:38 AST 13 U/L (0-32) 12/12/22 11:38 ALT 11 U/L (0-33) 12/12/22 11:38 Alkaline Phosphatase 99 U/L (35-105) 12/12/22 11:38 Troponin T Baseline 8 ng/L (0-10) 12/12/22 11:38 Troponin T 120 Minute 10.71 ng/L (0-10) H 12/12/22 14:35 Delta Troponin T 2.71 ABS# (0-10) 12/12/22 14:35 NT-Pro-B Natriuret Pep 4698 pg/mL (0-125) H 12/12/22 11:38 Total Protein 6.2 g/dL (6.6-8.7) L 12/12/22 11:38 Albumin 3.8 g/dL (3.5-5.2) 12/12/22 11:38 Globulin 2.4 g/dL (1.3-4.6) 12/12/22 11:38 Lipase 28 U/L (13-60) 12/12/22 11:38 Discharge Plan Discharge Patient Disposition: Home Clinical Impression: Chest pain, Anemia, macrocytic, CKD (chronic kidney disease), Elevated brain natriuretic peptide (BNP) level Condition: Stable Prescriptions: No Action citalopram [Celexa] 40 mg tablet 40 mg PO QPM zolpidem 10 mg tablet 10 mg PO BEDTIME aspirin [Adult Low Dose Aspirin] 81 mg tablet,delayed release (DR/EC) 162 mg PO QAM Hold Instructions: Resume on 10/19/22. Until after percutaneous tube placed in the left kidney carvedilol 6.25 mg tablet 6.25 mg PO BID Qty: 180 2RF Rx Instructions: must administer with a meal/food sacubitril-valsartan 97-103 mg tablet 1 tab PO BID Qty: 120 3RF Hold Instructions: Resume on 10/09/22. Vitamin B-12 50 mcg Tablet 50 mcg PO QAM montelukast 10 mg tablet 10 mg PO QAM gabapentin 100 mg capsule 100 mg PO TID magnesium 200 mg tablet 200 mg PO DAILY Qty: 30 1RF potassium chloride 10 mEq tablet extended release 10 meq PO DAILY Qty: 30 1RF Rx Instructions: Only take with Lasix furosemide 40 mg tablet 20 mg PO DAILY Qty: 30 0RF spironolactone 25 mg tablet 25 mg PO DAILY Qty: 30 3RF capsaicin 0.025 % Cream 1 applic topical QID PRN (Reason: Pain) Qty: 60 0RF acetaminophen 500 mg Tablet 1,000 mg PO Q6H PRN (Reason: Pain) omeprazole 20 mg capsule,delayed release(DR/EC) 20 mg PO BID nitroglycerin [Nitrostat] 0.4 mg Tablet, Sublingual 0.4 mg SUBLINGUAL Q5M PRN (Reason: Chest Pain) Rx Instructions: do not exceed 3 doses per episode albuterol sulfate 90 mcg/actuation HFA aerosol inhaler 2 puff INHALATION QID PRN (Reason: Shortness Of Breath) Cipro 500 mg tablet 500 mg PO BID Qty: 14 0RF Discharge Orders: Discharge ED (Routine); Ordered 12/12/22 Ordered By: Schuyler Borden Referrals: Mavis Peterson PA [Primary Care Provider] - Discharge Diet: Usual diet Discharge Activity: Limit activity as instructed Patient Instructions: Chest Pain (ED), Opioid Safety Activity Restrictions/Additional Instructions: Thank you for visiting the emergency department. You were seen and evaluated for chest pain. The exact cause of your symptoms is unclear. Please follow-up with your primary care provider and cardiology. Please continue your medication regimen and all prior discharge instructions. Return to the emergency department for anything that you are concerned about and feel needs emergency department evaluation. Coding Level of Care Code ED [place] [employer] Group Leader for Wesley Herrera
--- NOTE | 2022-12-12 11:12 | ECG_ITS ---
[facility] Test Date: 2022-12-12 Pat Name: Elena Pulliam Department: Room: Gender: Female Buckle Gluer: : 1970 Requested By: Schuyler Borden Order Number: [id number] Arlette MD: Pola Ferrera M.D. Measurements Intervals [place] Rate: 77 P: 43 TN: 151 QRS: -37 QRSD: 134 T: 30 QT: 432 QTc: 491 Interpretive Statements SINUS RHYTHM LEFT AXIS DEVIATION [QRS AXIS < -30] INTRAVENTRICULAR CONDUCTION DELAY [130+ ms QRS DURATION] POSSIBLE ANTERIOR MYOCARDIAL INFARCTION , PROBABLY OLD [30 ms Q WAVE IN V3/V4, OR R < 0.2 mV IN V4] INTERPRETATION BASED ON A DEFAULT AGE OF 40 YEARS Compared to ECG 12/07/2022 05:16:26 Intraventricular conduction delay now present Myocardial infarct finding now present Left bundle-branch block no longer present T-wave abnormality no longer present Electronically Signed On 12-12-2022 14:27:11 OVEN STRIPPER by Pola Ferrera M.D. [id number]
--- NOTE | 2022-12-12 11:12 | XRR_ITS ---
PROCEDURE INFORMATION: Exam: XR Chest Exam date and time: 12/12/2022 11:26 AM Age: 52 years old Clinical indication: Pain; Cough and shortness of breath; Angina pectoris; Prior surgery; Additional info: Cp TECHNIQUE: Imaging protocol: Radiologic exam of the chest. Views: 1 view. COMPARISON: CR (CHEST, ) 12/07/2022 4:36 AM FINDINGS: Tubes, catheters and devices: Cardiac rhythm maintenance device is in place. Lungs: Unremarkable. No consolidation. Pleural spaces: Unremarkable. No pleural effusion. No pneumothorax. Heart/Mediastinum: Unremarkable. No cardiomegaly. Bones/joints: Unremarkable. XR/XR chest 1V portable [id number] IMPRESSION: No acute cardiopulmonary abnormality.
--- NOTE | 2022-12-12 11:35 | PC.NURSE ---
PT PLACED ON CONTINUOUS SPO2, NIBP, AND CM.
[2022-12-12 11:45] LABS: Basophils # 0.1 10^3/uL (0.0-0.1); Basophils % 1.1 %; Eosinophils # 0.3 10^3/uL (0.0-0.8); Eosinophils % 4.2 %; Hematocrit 34.7 % (37.0-47.0); Hemoglobin 11.3 g/dL (11.5-15.3); Lymphocytes # 1.7 10^3/uL (0.8-4.8); Lymphocytes % 26.4 %; Mean Corpuscular HGB Conc 32.6 g/dL (30.0-36.0); Mean Corpuscular Hemoglobin 33.3 pg (28.0-34.0); Mean Corpuscular Volume 102.4 fl (81-99); Mean Platelet Volume 10.9 fL (7.4-10.4); Monocytes # 0.4 10^3/uL (0.2-0.9); Monocytes % 6.2 %; Neutrophils # 3.87 10^3/uL (1.8-7.7); Neutrophils % 61.8 %; Nucleated Red Blood Cells % 0 %; Platelet Count 139 10^3/cmm (130-400); Red Blood Count 3.39 10^6/uL (4.1-5.3); Red Cell Distribution Width 12.1 % (12.1-15.1); White Blood Count 6.3 10^3/uL (4.0-10.0)
[2022-12-12] MEDS: acetaminophen 500 mg Tablet 1000 MG PO (11:47)
[2022-12-12] MEDS: ketorolac 30 mg/mL INJ 15 MG IVP (11:48)
[2022-12-12 12:08] LABS: Troponin(5th) Baseline 8 ng/L (0-10)
[2022-12-12 12:17] LABS: Alanine Aminotransferase 11 U/L (0-33); Albumin Level 3.8 g/dL (3.5-5.2); Alkaline Phosphatase 99 U/L (35-105); Aspartate Amino Transferase 13 U/L (0-32); Blood Urea Nitrogen 22 mg/dL (6-20); Calcium 9.1 mg/dL (8.5-10.5); Carbon Dioxide 25 mmol/L (22-29); Chloride 103 mmol/L (98-107); Globulin 2.4 g/dL (1.3-4.6); Glomerular Filtration Rate 52.2 mL/min (90-130); Glucose 83 mg/dL (65-115); Lipase 28 U/L (13-60); NT Pro B Type Natriuretic Pept 4698 pg/mL (0-125); Osmolality Calculated 292 mOsm/kg (285-295); Sodium 140 mmol/L (136-145); Total Bilirubin 0.4 mg/dL (0.15-1.2); Total Protein 6.2 g/dL (6.6-8.7)
[2022-12-12 12:18] LABS: Creatinine Clr Calc Pharmacy 59.7172
[2022-12-12] MEDS: morphine 4 mg/mL SDV 1 mL IVP ×2 (12:30→14:24)
--- NOTE | 2022-12-12 13:12 | ECG_ITS ---
[facility] Test Date: 2022-12-12 Pat Name: Elena Pulliam Department: Room: Gender: Female Stunner Animal: : 1970 Requested By: Schuyler Borden Order Number: [id number] Arlette MD: Pola Ferrera M.D. Measurements Intervals [place] Rate: 78 P: 55 AL: 158 QRS: -35 QRSD: 136 T: 55 QT: 456 QTc: 519 Interpretive Statements SINUS RHYTHM LEFT AXIS DEVIATION [QRS AXIS < -30] INTRAVENTRICULAR CONDUCTION DELAY [130+ ms QRS DURATION] Compared to ECG 12/12/2022 11:12:48 Myocardial infarct finding no longer present Electronically Signed On 12-12-2022 14:27:24 HEADING AND PRIMING OPERATOR by Pola Ferrera M.D. [id number]
[2022-12-12 15:20] LABS: Troponin 5 2HR 10.71 ng/L (0-10)
[2022-12-12 15:28] LABS: Troponin 5 2HR Delta 2.71 ABS# (0-10)
== END 2022-12-12 15:57 | disposition home or self-care (01) ==
PROVIDERS: Emergency Provider Emergency Medicine; PCP Physician Assistant
DX: R07.9 Chest pain, unspecified (principal); D53.9 Nutritional anemia, unspecified; R79.89 Other specified abnormal findings of blood chemistry; I13.0 Hypertensive heart and chronic kidney disease with heart failure and stage 1 through stage 4 chronic kidney disease, or unspecified chronic kidney disease; N18.9 Chronic kidney disease, unspecified; I50.9 Heart failure, unspecified; Z86.73 Personal history of transient ischemic attack (TIA), and cerebral infarction without residual deficits; Z95.810 Presence of automatic (implantable) cardiac defibrillator; F17.210 Nicotine dependence, cigarettes, uncomplicated; Z79.82 Long term (current) use of aspirin
CPT/HCPCS: 36415; 71045; 80053; 83690; 83735; 83880; 84484; 85025; 93005; 96374; 96375; 96376; 99285; J1885; J2270

== ENCOUNTER 2022-12-21 16:36 | Emergency (ER) | payer MEDICARE, MEDICAID, SELFPAY ==
[2022-12-21 16:40] VITALS: BP 115/87; PULSE 94; RESP 24; TEMP 37.1; O2SAT 100; BMI 26.6
[2022-12-21 16:44] VITALS: BP 100/73; PULSE 92; RESP 18; O2SAT 99
--- NOTE | 2022-12-21 17:10 | ED_ITS ---
HPI - Back Pain/Injury General: Chief Complaint: Back Pain/Injury Stated Complaint: left flank pain Time Seen by Provider: 12/21/22 16:55 History of Present Illness: Patient presents to the ER with left-sided back pain, flank pain. She rates pain 10 out of 10 on the pain scale. Only treatment prior to arrival is Tylenol with no relief. She does have a history of a left nephrectomy with urostomy tube placed October 07 [facility]. Patient states she has been to this ER several times for pain in this region and this is similar to the other times in the past. MD elicited complaint: other Pertinent past history: other (Left nephrectomy with urostomy tube) Onset (ago): day(s) (1 day) Timing: constant Severity: similar to previous episodes Pain scale (0-10): 10 Similar Symptoms Previously: Yes Quality: dull and aching Radiation: none Exacerbating factors: none Relieving factors: none Associated symptoms: Reports no associated symptoms and nausea; Deny abdominal pain, chills, dysuria, fever(s) or vomiting Treatments prior to arrival: acetaminophen Work related injury: No Review of Systems General: Reports: 10 or more systems reviewed and unremarkable except in HPI and below Const: Denies: fever(s), chills or body aches Eyes: Denies: change in vision ENMT: Denies: throat pain or odynophagia Card: Denies: chest pain, palpitations or irregular heart rhythm Resp: Denies: dyspnea, productive cough or non-productive cough GI: Reports: nausea; Denies: abdominal pain or vomiting : Reports: flank pain; Denies: difficulty voiding or dysuria Musc: Denies: neck pain, back pain or extremity pain Skin/Breast: Denies: rash or pruritus Neuro: Denies: headache(s), numbness in extremities or weakness in extremities Psych: Denies: anxiety or depression Endo: Denies: polyuria, polydipsia or tired all the time Cedric/Lymph: Denies: easy bruising or easy bleeding All/Imm: Denies: urticaria or throat swelling PFS ED PFSH: Medical History Acute hypokalemia AICD discharge AICD discharge Chest pain CHF (congestive heart failure) Related to nonischemic cardiomyopathy, most recent ejection fraction with with EF 42%. CKD (chronic kidney disease) History of recurrent UTIs History of TIA (transient ischemic attack) HTN (hypertension) Hydronephrosis, left Hypertension Hypokalemia Hypokalemia ICD (implantable cardioverter-defibrillator) in place Liver mass Mass of right lobe of liver ~3.5 x 4 cm, indeterminant, hypodense, first noted 11/2021 Nicotine dependence, cigarettes, uncomplicated Non-ischemic cardiomyopathy Nonischemic cardiomyopathy Specific etiology unknown, may have been viral or related to uncontrolled hypertension from her recollection Echocardiogram November 2021 with ejection fraction of 42% - 05/17/22 echo EF now 25% Obstructive pyelonephritis (~11/2021) Syncope Urolithiasis Multi stone former. Complicated by at least 1 episode of obstructive pyelonephritis. Multiple procedures required to treat Ventricular tachycardia Surgical History S/P ureteral stent placement (~11/2021) Status post cholecystectomy Status post placement of cardiac pacemaker Family History Father , AT AGE 77 CAD (coronary artery disease) Cancer lung cancer Mother , AT AGE 60 Cancer OVARIAN Denies family history of Clotting disorder Anesthesia complication Bleeding disorder Social History Smoking and tobacco status: current every day smoker cigarettes Packs smoked per day: 0.5 Years cigarettes smoked: 45 Second hand smoke exposure: Yes Alcohol intake: current Lives independently: Yes Marital status: service: No Current occupational status: disabled Current gender identity: Female Physical Exam Const: COMMON NORMALS: no acute distress, average body habitus, patient oriented x3, no limitations, healthy appearing, alert and well nourished HENMT: COMMON NORMALS: normocephalic, atraumatic, hearing grossly normal bilaterally and moist oral mucous membranes HEAD & SCALP: normocephalic and atraumatic Eye: COMMON NORMALS: Equal, round and reactive pupils present, EOMs intact bilaterally and conjunctivae normal CONJUNCTIVA: Yes conjunctivae normal PUPIL: Yes Equal, round and reactive pupils present Neck/C-Spine: COMMON NORMALS: full ROM, no lymphadenopathy, supple, no JVD and Thyroid normal THYROID: Thyroid normal Chest: COMMONS NORMALS: normal inspection of the chest and normal palpation of entire chest wall Resp: COMMON NORMALS: normal respiratory effort, No retractions, No use of accessory muscles and clear to auscultation bilaterally AUSCULTATION: clear to auscultation bilaterally Cardio: COMMON NORMALS: no JVD, regular rate, regular rhythm, S1 normal heart sound present, S2 normal heart sound present and No gallops present (Cardio) RATE: regular rate RHYTHM: regular rhythm HEART SOUNDS: S1 normal heart sound present and S2 normal heart sound present GI: COMMON NORMALS: Normal to inspection, nondistended, normoactive bowel sounds present, Soft to palpation, non-tender, No hepatosplenomegaly present and no masses PALPATION: Yes Soft to palpation and Yes No hepatosplenomegaly present : OTHER: Pain with palpation over left flank in the area of the urostomy tube Extremity: COMMON NORMALS: normal to inspection Neuro: COMMON NORMALS: patient oriented x3, CN's II-XII intact bilaterally, mo ves all extremities, no focal motor deficits and no sensory deficits noted SENSORIUM/ORIENTATION: Yes alert Course Vital Signs: Vital signs: Vital Signs Temperature 98.8 F 12/21/22 16:40 Pulse Rate 92 12/21/22 16:44 Respiratory Rate 18 12/21/22 16:44 Blood Pressure 100/73 12/21/22 16:44 Pulse Oximetry 99 12/21/22 16:44 Oxygen Delivery Me thod 12/21/22 16:44 MDM - Back Pain/Injury Medical Decision Making Patient presents to the ER with complaints of left flank pain. Patient has presented to the ER multiple times with this since her urostomy in September of last year. Patient has been worked up multiple times by lab and CT scans. This time patient had lab through which was benign except for a urinary tract infection. Patient was given Toradol IV which helped relieve the pain. Labs were discussed with patient and she was told we were going to discharge her on antibiotics for the urinary tract infection. When the infection lessens the pain will go down and this will happen due to the antibiotics. Patient will not be discharged on any pain medicine. Patient is to take [id number] Tylenol and ibuprofen at home as needed for pain. Patient can also take [id number] Pyridium. Patient is to follow-up with with her primary care provider in approximately 1 week or sooner. Differential Diagnosis Unlikely lumbar radiculopathy, sciatica, strain of lumbar region or renal colic Labs 12/21/22 16:46 12/21/22 16:46 Laboratory Results WBC 6.7 10^3/uL (4.0-10.0) 12/21/22 16:46 RBC 3.29 10^6/uL (4.1-5.3) L 12/21/22 16:46 Hgb 11.1 g/dL (11.5-15.3) L 12/21/22 16:46 Hct 33.5 % (37.0-47.0) L 12/21/22 16:46 MCV 101.8 fl (81-99) H 12/21/22 16:46 MCH 33.7 pg (28.0-34.0) 12/21/22 16:46 MCHC 33.1 g/dL (30.0-36.0) 12/21/22 16:46 RDW 13.2 % (12.1-15.1) 12/21/22 16:46 Plt Count 156 10^3/cmm (130-400) 12/21/22 16:46 MPV 11.3 fL (7.4-10.4) H 12/21/22 16:46 Neut % (Auto) 60.6 % 12/21/22 16:46 Lymph % (Auto) 28.7 % 12/21/22 16:46 [place] % (Auto) 7.0 % 12/21/22 16:46 Eos % (Auto) 2.5 % 12/21/22 16:46 Baso % (Auto) 0.9 % 12/21/22 16:46 Neut # (Auto) 4.07 10^3/uL (1.8-7.7) 12/21/22 16:46 Lymph # (Auto) 1.9 10^3/uL (0.8-4.8) 12/21/22 16:46 [place] # (Auto) 0.5 10^3/uL (0.2-0.9) 12/21/22 16:46 Eos # (Auto) 0.2 10^3/uL (0.0-0.8) 12/21/22 16:46 Baso # (Auto) 0.1 10^3/uL (0.0-0.1) 12/21/22 16:46 Nucleated RBC % (auto) 0 % 12/21/22 16:46 Nucleated RBCs # 0.0 /100WBC 12/21/22 16:46 Sodium 140 mmol/L (136-145) 12/21/22 16:46 Potassium 3.6 mmol/L (3.5-5.1) 12/21/22 16:46 Chloride 105 mmol/L (98-107) 12/21/22 16:46 Carbon Dioxide 21 mmol/L (22-29) L 12/21/22 16:46 Anion Gap 17.6 (5-19) 12/21/22 16:46 BUN 18 mg/dL (6-20) 12/21/22 16:46 Creatinine 1.1 mg/dL (0.5-0.9) H 12/21/22 16:46 GFR Calculation 52.2 mL/min (90-130) L 12/21/22 16:46 Glucose 92 mg/dL (65-115) 12/21/22 16:46 Calculated Osmolality 292 mOsm/kg (285-295) 12/21/22 16:46 Calcium 8.9 mg/dL (8.5-10.5) 12/21/22 16:46 Total Bilirubin 0.5 mg/dL (0.15-1.2) 12/21/22 16:46 AST 15 U/L (0-32) 12/21/22 16:46 ALT 11 U/L (0-33) 12/21/22 16:46 Alkaline Phosphatase 100 U/L (35-105) 12/21/22 16:46 Total Protein 6.2 g/dL (6.6-8.7) L 12/21/22 16:46 Albumin 3.9 g/dL (3.5-5.2) 12/21/22 16:46 Globulin 2.3 g/dL (1.3-4.6) 12/21/22 16:46 Urine Color Light yellow (Yellow) 12/21/22 17:16 Urine Appearance Cloudy (CLEAR) A 12/21/22 17:16 Urine pH 9 (5-7) H 12/21/22 17:16 Ur Specific [place] 1.015 (1.005-1.030) 12/21/22 17:16 Urine Protein 3+ (Negative) H 12/21/22 17:16 Urine Glucose (UA) Norm (Normal) 12/21/22 17:16 Urine Ketones Negative (Negative) 12/21/22 17:16 Urine Blood 3+ (Negative) H 12/21/22 17:16 Urine Nitrate Negative (Negative) 12/21/22 17:16 Urine Bilirubin Neg (Negative) 12/21/22 17:16 Prot Sulfosalicylic Acd Positive (Negative) 12/21/22 17:16 Urine Urobilinogen Neg mg/dL (Negative) 12/21/22 17:16 Ur Leukocyte Esterase 2+ (Negative) H 12/21/22 17:16 Urine RBC 15-25 /hpf (0-2) H 12/21/22 17:16 Urine WBC 5-10 /hpf (0-5) H 12/21/22 17:16 Ur Squamous Epith Cells None /hpf (0-5) 12/21/22 17:16 Amorphous Sediment 3+ /hpf 12/21/22 17:16 Urine Bacteria 1+ /hpf (NONE) H 12/21/22 17:16 Urine Mucus 2+ /hpf 12/21/22 17:16 Discharge Plan Discharge Patient Disposition: Home Clinical Impression: Urinary tract infection Condition: Stable Prescriptions: New ciprofloxacin HCl [Cipro] 500 mg tablet 500 mg PO BID Qty: 14 0RF No Action citalopram [Celexa] 40 mg tablet 40 mg PO QPM zolpidem 10 mg tablet 10 mg PO BEDTIME aspirin [Adult Low Dose Aspirin] 81 mg tablet,delayed release (DR/EC) 162 mg PO QAM Hold Instructions: Resume on 10/19/22. Until after percutaneous tube placed in the left kidney carvedilol 6.25 mg tablet 6.25 mg PO BID Qty: 180 2RF Rx Instructions: must administer with a meal/food sacubitril-valsartan 97-103 mg tablet 1 tab PO BID Qty: 120 3RF Hold Instructions: Resume on 10/09/22. Vitamin B-12 50 mcg Tablet 50 mcg PO QAM montelukast 10 mg tablet 10 mg PO QAM gabapentin 100 mg capsule 100 mg PO TID magnesium 200 mg tablet 200 mg PO DAILY Qty: 30 1RF potassium chloride 10 mEq tablet extended release 10 meq PO DAILY Qty: 30 1RF Rx Instructions: Only take with Lasix furosemide 40 mg tablet 20 mg PO DAILY Qty: 30 0RF spironolactone 25 mg tablet 25 mg PO DAILY Qty: 30 3RF capsaicin 0.025 % Cream 1 applic topical QID PRN (Reason: Pain) Qty: 60 0RF acetaminophen 500 mg Tablet 1,000 mg PO Q6H PRN (Reason: Pain) omeprazole 20 mg capsule,delayed release(DR/EC) 20 mg PO BID nitroglycerin [Nitrostat] 0.4 mg Tablet, Sublingual 0.4 mg SUBLINGUAL Q5M PRN (Reason: Chest Pain) Rx Instructions: do not exceed 3 doses per episode albuterol sulfate 90 mcg/actuation HFA aerosol inhaler 2 puff INHALATION QID PRN (Reason: Shortness Of Breath) Discharge Orders: Discharge ED (Routine); Ordered 12/21/22 Ordered By: Fredis Romero Referrals: Mavis Peterson PA [Primary Care Provider] - 1 week Patient Instructions: Urinary Tract Infection - Women Coding Level of Care Code ED Collections Professional for Wesley Herrera
[2022-12-21] MEDS: ondansetron 2 mg/ML SDV 2 mL 4 MG IVP (17:11)
[2022-12-21] MEDS: ketorolac 30 mg/mL INJ IVP (17:11)
[2022-12-21 17:24] LABS: Basophils # 0.1 10^3/uL (0.0-0.1); Basophils % 0.9 %; Eosinophils # 0.2 10^3/uL (0.0-0.8); Eosinophils % 2.5 %; Hematocrit 33.5 % (37.0-47.0); Hemoglobin 11.1 g/dL (11.5-15.3); Lymphocytes # 1.9 10^3/uL (0.8-4.8); Lymphocytes % 28.7 %; Mean Corpuscular HGB Conc 33.1 g/dL (30.0-36.0); Mean Corpuscular Hemoglobin 33.7 pg (28.0-34.0); Mean Corpuscular Volume 101.8 fl (81-99); Mean Platelet Volume 11.3 fL (7.4-10.4); Monocytes # 0.5 10^3/uL (0.2-0.9); Neutrophils # 4.07 10^3/uL (1.8-7.7); Neutrophils % 60.6 %; Nucleated Red Blood Cells % 0 %; Platelet Count 156 10^3/cmm (130-400); Red Blood Count 3.29 10^6/uL (4.1-5.3); Red Cell Distribution Width 13.2 % (12.1-15.1); White Blood Count 6.7 10^3/uL (4.0-10.0)
[2022-12-21 17:46] LABS: Urine Appearance Cloudy (CLEAR); Urine Color Light yellow (Yellow)
[2022-12-21 17:47] LABS: Alanine Aminotransferase 11 U/L (0-33); Albumin Level 3.9 g/dL (3.5-5.2); Alkaline Phosphatase 100 U/L (35-105); Anion Gap 17.6 (5-19); Aspartate Amino Transferase 15 U/L (0-32); Blood Urea Nitrogen 18 mg/dL (6-20); Calcium 8.9 mg/dL (8.5-10.5); Carbon Dioxide 21 mmol/L (22-29); Chloride 105 mmol/L (98-107); Creatinine Clr Calc Pharmacy 59.7172; Globulin 2.3 g/dL (1.3-4.6); Glomerular Filtration Rate 52.2 mL/min (90-130); Glucose 92 mg/dL (65-115); Osmolality Calculated 292 mOsm/kg (285-295); Potassium 3.6 mmol/L (3.5-5.1); Sodium 140 mmol/L (136-145); Total Bilirubin 0.5 mg/dL (0.15-1.2); Total Protein 6.2 g/dL (6.6-8.7)
[2022-12-21 17:47] LABS: Bilirubin Urine Neg (Negative); Blood Urine 3+ (Negative); Glucose Urine UA Norm (Normal); Ketones Urine Negative (Negative); Leukocyte Esterase Urine 2+ (Negative); Nitrate Urine Negative (Negative); Protein Urine 3+ (Negative); Specific Gravity, Urine 1.015 (1.005-1.030); Sulfosalicylic Acid Urine Positive (Negative); Urobilinogen Urine Neg (Negative); pH Urine 9 (5-7)
[2022-12-21 17:48] LABS: Add Urine Culture? Yes; Amorphous Sediment Urine 3+ /hpf; Bacteria Urine 1+ /hpf; Mucus Urine 2+ /hpf; RBC Urine 15-25 /hpf (0-2)
[2022-12-21 17:49] LABS: Add Urine Microscopic? YES
[2022-12-21 18:28] VITALS: BP 119/80; PULSE 94; RESP 16; O2SAT 95
== END 2022-12-21 18:24 | disposition home or self-care (01) ==
PROVIDERS: Emergency Provider Emergency Medicine; PCP Physician Assistant
DX: N39.0 Urinary tract infection, site not specified (principal); I13.0 Hypertensive heart and chronic kidney disease with heart failure and stage 1 through stage 4 chronic kidney disease, or unspecified chronic kidney disease; I50.9 Heart failure, unspecified; N18.9 Chronic kidney disease, unspecified; I42.8 Other cardiomyopathies; F17.210 Nicotine dependence, cigarettes, uncomplicated; Z79.82 Long term (current) use of aspirin; Z86.73 Personal history of transient ischemic attack (TIA), and cerebral infarction without residual deficits; Z95.0 Presence of cardiac pacemaker; Z90.5 Acquired absence of kidney
CPT/HCPCS: 80053; 81001; 85025; 87086; 96374; 96375; 99284; J1885; J2405

== ENCOUNTER 2022-12-23 21:11 | Emergency (ER) | payer MEDICARE, MEDICAID, SELFPAY ==
[2022-12-23 21:16] VITALS: BP 93/71; PULSE 79; RESP 18; TEMP 36.6; O2SAT 98; BMI 26.6
--- NOTE | 2022-12-23 21:23 | XRR_ITS ---
PROCEDURE INFORMATION: Exam: XR Chest Exam date and time: 12/23/2022 9:44 PM Age: 52 years old Clinical indication: Pain; Chest pressure; Prior surgery; Additional info: Chest pain TECHNIQUE: Imaging protocol: Radiologic exam of the chest. Views: 1 view. COMPARISON: CR XR chest 1V portable [id number] 12/12/2022 11:26 AM FINDINGS: Tubes, catheters and devices: Left-sided cardiac pacemaker again noted. Lungs: No CHF/pulmonary edema. Visible lungs appear essentially clear. Pleural spaces: No visible pneumothorax. No definite pleural fluid. Heart/Mediastinum: Mild to moderate cardiomegaly, essentially stable. Bones/joints: No significant acute finding. XR/XR chest 1V portable [id number] IMPRESSION: 1. No definite CHF or pneumonia. 2. Other findings discussed above.
--- NOTE | 2022-12-23 21:28 | ECG_ITS ---
[facility] Test Date: 2022-12-23 Pat Name: Elena Pulliam Department: Room: Gender: Female Electronic Drafter: : 1970 Requested By: Kenny Garsia Order Number: [id number] Reading MD: EMANUEL LUCERO Measurements Intervals [place] Rate: 78 P: 34 LA: 162 QRS: -46 QRSD: 146 T: 68 QT: 460 QTc: 526 Interpretive Statements SINUS RHYTHM LEFT AXIS DEVIATION [QRS AXIS < -30] LEFT BUNDLE BRANCH BLOCK [120+ ms QRS DURATION, 80+ ms Q/S IN V1/V2, 85+ ms R IN I/aVL/V5/V6] Compared to ECG 12/12/2022 13:21:27 Left bundle-branch block now present Intraventricular conduction delay no longer present Electronically Signed On 12-24-2022 23:37:15 CDT by EMANUEL LUCERO [id number]
[2022-12-23 21:31] LABS: Basophils # 0.1 10^3/uL (0.0-0.1); Basophils % 0.7 %; Eosinophils # 0.2 10^3/uL (0.0-0.8); Eosinophils % 2.9 %; Hematocrit 31.3 % (37.0-47.0); Hemoglobin 10.2 g/dL (11.5-15.3); Lymphocytes # 2.1 10^3/uL (0.8-4.8); Lymphocytes % 31.4 %; Mean Corpuscular HGB Conc 32.6 g/dL (30.0-36.0); Mean Corpuscular Hemoglobin 33.6 pg (28.0-34.0); Mean Platelet Volume 10.9 fL (7.4-10.4); Monocytes # 0.4 10^3/uL (0.2-0.9); Monocytes % 5.1 %; Neutrophils # 4.05 10^3/uL (1.8-7.7); Neutrophils % 59.6 %; Nucleated Red Blood Cells % 0 %; Platelet Count 134 10^3/cmm (130-400); Red Blood Count 3.04 10^6/uL (4.1-5.3); Red Cell Distribution Width 13.5 % (12.1-15.1); White Blood Count 6.8 10^3/uL (4.0-10.0)
--- NOTE | 2022-12-23 21:42 | ED_ITS ---
HPI - Chest Pain General: Chief Complaint: Chest Pain Stated Complaint: CP/SOB Time Seen by Provider: 12/23/22 21:24 Source: patient History of Present Illness: 52-year-old female with a history of nonischemic cardiomyopathy. Her EF is 20 to 25% she says. She has an ICD/pacemaker in place. She has had chest discomfort on and off radiating into her shoulder blades since 7 AM this morning. She is short of breath with it. She does not believe she has gained water weight. She usually does not swell in her lower extremities with her heart failure. She has 2 prior visits in the last 10 days or so MD complaint: chest pain Pertinent past history: other Onset (ago): hour(s) (0700 this am) Timing of current episode: episodic Prior episodes: Yes Onset: during rest Pain location: substernal Pain radiation: back, left scapula and right scapula Severity: moderate Quality: aching Relieving factors: nothing Exacerbating factors: nothing Context: other Associated symptoms: Reports dyspnea; Deny abdominal pain, diaphoresis, fever(s), palpitations or vomiting Treatment prior to arrival: none Review of Systems Const: Denies: fever(s) or diaphoresis Eyes: Denies: change in vision ENMT: Denies: throat pain Card: Reports: chest pain; Denies: palpitations or irregular heart rhythm Resp: Reports: dyspnea and productive cough GI: Denies: abdominal pain or vomiting Musc: Reports: back pain Skin/Breast: Denies: rash Neuro: Denies: headache(s) PFSH ED PFSH: Medical History Acute hypokalemia AICD discharge AICD discharge Chest pain CHF (congestive heart failure) Related to nonischemic cardiomyopathy, most recent ejection fraction with with EF 42%. CKD (chronic kidney disease) History of recurrent UTIs History of TIA (transient ischemic attack) HTN (hypertension) Hydronephrosis, left Hypertension Hypokalemia Hypokalemia ICD (implantable cardioverter-defibrillator) in place Liver mass Mass of right lobe of liver ~3.5 x 4 cm, indeterminant, hypodense, first noted 11/2021 Nicotine dependence, cigarettes, uncomplicated Non-ischemic cardiomyopathy Nonischemic cardiomyopathy Specific etiology unknown, may have been viral or related to uncontrolled hypertension from her recollection Echocardiogram November 2021 with ejection fraction of 42% - 05/17/22 echo EF now 25% Obstructive pyelonephritis (~11/2021) Syncope Urolithiasis Multi stone former. Complicated by at least 1 episode of obstructive pyelonephritis. Multiple procedures required to treat Ventricular tachycardia Surgical History S/P ureteral stent placement (~11/2021) Status post cholecystectomy Status post placement of cardiac pacemaker Family History Father , AT AGE 77 CAD (coronary artery disease) Cancer lung cancer Mother , AT AGE 60 Cancer OVARIAN Denies family history of Clotting disorder Anesthesia complication Bleeding disorder Social History Smoking and tobacco status: current every day smoker cigarettes Packs smoked per day: 0.5 Years cigarettes smoked: 45 Second hand smoke exposure: Yes Alcohol intake: current Lives independently: Yes Marital status: service: No Current occupational status: disabled Current gender identity: Female Physical Exam Const: COMMON NORMALS: no acute distress GENERAL APPEARANCE: cooperative; not ill appearing and not frail appearing HENMT: COMMON NORMALS: normocephalic, atraumatic and Normal external nose present HEAD & SCALP: normocephalic and atraumatic FACE & SINUS: normal facial exam and face symmetric NOSE: Normal external nose present Eye: COMMON NORMALS: Equal, round and reactive pupils present and EOMs intact bilaterally PUPIL: Yes Equal, round and reactive pupils present Neck/C-Spine: GENERAL: Yes trachea midline Chest: CHEST: Yes Symmetrical chest wall rise Resp: COMMON NORMALS: normal respiratory effort, No retractions, No use of accessory muscles and clear to auscultation bilaterally AUSCULTATION: clear to auscultation bilaterally Cardio: COMMON NORMALS: regular rate and regular rhythm RATE: regular rate RHYTHM: regular rhythm GI: COMMON NORMALS: Normal to inspection, nondistended, normoactive bowel sounds present Extremity: COMMON NORMALS: no pedal edema Neuro: GRETA COMA SCALE: document GCS findings Greta coma scale eye opening: Spontaneous Greta coma scale verbal response: Orientated [place] coma scale motor response: Obey commands Greta coma scale total score: 15 SENSORY EXAM: Yes extremities (intact) Psych: COMMON NORMALS: speech normal SPEECH: Yes normal speech Skin: COMMON NORMALS: no rashes or lesions noted GENERAL SKIN EXAM: no rashes or lesions noted Course Vital Signs: Vital signs: Vital Signs Temperature 97.9 F 12/23/22 21:16 Pulse Rate 76 12/24/22 01:30 Respiratory Rate 16 12/24/22 01:30 Blood Pressure 104/72 12/24/22 01:30 Pulse Oximetry 93 12/24/22 01:30 MDM - Chest Pain Medical Decision Making 52-year-old female with CHF. She presents with chest discomfort and shortness of breath. Her CHF is nonischemic by history. She was given 80 mg of Lasix here, and is diuresed significantly just in 1 urination. She has a heart rate of 76, nonpaced. Blood pressure 100/68, saturations are 92 to 94% on room air. Her troponin delta was less than 2. However, her BNP is significantly elevated at 9600. She has some pulmonary vascular congestion on chest x-ray. No effusions. Since she is breathing room air, it is feasible to try outpatient diuresis. We will increase her Lasix to 40 mg twice daily for the next 3 days. She knows to return if worsening. Lab Data 12/23/22 21:26 12/23/22 21:26 Radiology Impressions Chest X-Ray 12/23/22: IMPRESSION: 1. No definite CHF or pneumonia. 2. Other findings discussed above. Laboratory Results WBC 6.8 10^3/uL (4.0-10.0) 12/23/22: RBC 3.04 10^6/uL (4.1-5.3) L 12/23/22 21: Hgb 10.2 g/dL (11.5-15.3) L 12/23/22 21: Hct 31.3 % (37.0-47.0) L 12/23/22 21: MCV 103.0 fl (81-99) H 12/23/22 21: MCH 33.6 pg (28.0-34.0) 12/23/22 21: MCHC 32.6 g/dL (30.0-36.0) 12/23/22 21: RDW 13.5 % (12.1-15.1) 12/23/22: Plt Count 134 10^3/cmm (130-400) 12/23/22 21: MPV 10.9 fL (7.4-10.4) H 12/23/22 21: Neut % (Auto) 59.6 % 12/23/22: Lymph % (Auto) 31.4 % 12/23/22 21: [place] % (Auto) 5.1 % 12/23/22 21: Eos % (Auto) 2.9 % 12/23/22 21: Baso % (Auto) 0.7 % 12/23/22: Neut # (Auto) 4.05 10^3/uL (1.8-7.7) 12/23/22: Lymph # (Auto) 2.1 10^3/uL (0.8-4.8) 12/23/22: [place] # (Auto) 0.4 10^3/uL (0.2-0.9) 12/23/22: Eos # (Auto) 0.2 10^3/uL (0.0-0.8) 12/23/22: Baso # (Auto) 0.1 10^3/uL (0.0-0.1) 12/23/22: Nucleated RBC % (auto) 0 % 12/23/22: Nucleated RBCs # 0.0 /100WBC 12/23/22 21: Sodium 139 mmol/L (136-145) 12/23/22 21: Potassium 3.5 mmol/L (3.5-5.1) 12/23/22: Chloride 106 mmol/L (98-107) 12/23/22 21: Carbon Dioxide 23 mmol/L (22-29) 12/23/22: Anion Gap 13.5 (5-19) 12/23/22: BUN 19 mg/dL (6-20) 12/23/22 21: Creatinine 1.2 mg/dL (0.5-0.9) H 12/23/22 21: GFR Calculation 47.2 mL/min (90-130) L 12/23/22: Glucose 81 mg/dL (65-115) 12/23/22 21:26 Calculated Osmolality 289 mOsm/kg (285-295) 12/23/22 21:26 Calcium 8.6 mg/dL (8.5-10.5) 12/23/22 21:26 Total Bilirubin 0.4 mg/dL (0.15-1.2) 12/23/22 21:26 AST 13 U/L (0-32) 12/23/22 21:26 ALT 11 U/L (0-33) 12/23/22 21:26 Alkaline Phosphatase 96 U/L (35-105) 12/23/22 21:26 Troponin T Baseline 13 ng/L (0-10) H 12/23/22 21: Troponin T 120 Minute 14.91 ng/L (0-10) H 12/23/22 23:40 Delta Troponin T 1.91 ABS# (0-10) 12/23/22 23:40 NT-Pro-B Natriuret Pep 9643 pg/mL (0-125) H 12/23/22 21:26 Total Protein 5.9 g/dL (6.6-8.7) L 12/23/22 21:26 Albumin 3.6 g/dL (3.5-5.2) 12/23/22 21: Globulin 2.3 g/dL (1.3-4.6) 12/23/22 21:26 Lipase 25 U/L (13-60) 12/23/22 21:26 Discharge Plan Discharge Patient Disposition: Home Clinical Impression: Chest pain, Acute exacerbation of CHF (congestive heart failure) Condition: Stable Prescriptions: New Lasix 40 mg tablet 40 mg PO BID Qty: 6 0RF No Action citalopram [Celexa] 40 mg tablet 40 mg PO QPM zolpidem 10 mg tablet 10 mg PO BEDTIME aspirin [Adult Low Dose Aspirin] 81 mg tablet,delayed release (DR/EC) 162 mg PO QAM Hold Instructions: Resume on 10/19/22. Until after percutaneous tube placed in the left kidney carvedilol 6.25 mg tablet 6.25 mg PO BID Qty: 180 2RF Rx Instructions: must administer with a meal/food sacubitril-valsartan 97-103 mg tablet 1 tab PO BID Qty: 120 3RF Hold Instructions: Resume on 10/09/22. Vitamin B-12 50 mcg Tablet 50 mcg PO QAM montelukast 10 mg tablet 10 mg PO QAM gabapentin 100 mg capsule 100 mg PO TID magnesium 200 mg tablet 200 mg PO DAILY Qty: 30 1RF potassium chloride 10 mEq tablet extended release 10 meq PO DAILY Qty: 30 1RF Rx Instructions: Only take with Lasix furosemide 40 mg tablet 20 mg PO DAILY Qty: 30 0RF spironolactone 25 mg tablet 25 mg PO DAILY Qty: 30 3RF capsaicin 0.025 % Cream 1 applic topical QID PRN (Reason: Pain) Qty: 60 0RF acetaminophen 500 mg Tablet 1,000 mg PO Q6H PRN (Reason: Pain) omeprazole 20 mg capsule,delayed release(DR/EC) 20 mg PO BID nitroglycerin [Nitrostat] 0.4 mg Tablet, Sublingual 0.4 mg SUBLINGUAL Q5M PRN (Reason: Chest Pain) Rx Instructions: do not exceed 3 doses per episode albuterol sulfate 90 mcg/actuation HFA aerosol inhaler 2 puff INHALATION QID PRN (Reason: Shortness Of Breath) Cipro 500 mg tablet 500 mg PO BID Qty: 14 0RF Discharge Orders: Discharge ED (Routine); Ordered 12/24/22 Ordered By: Jad Muniz Referrals: Mavis Peterson PA [Primary Care Provider] - Sil Pineda MD [Physician] - 1-3 days Patient Instructions: Chest Pain (ED), Pulmonary Edema (ED) Activity Restrictions/Additional Instructions: Discontinue your Lasix 20 mg daily for the next 3 days, and instead use 40 mg t wice daily as prescribed. After 3 days, returned to her Lasix 20 mg daily. Return for worsening chest discomfort, worsening shortness of breath despite treatment, fever, any other concerning symptoms. Call your content assistant on Monday for a follow-up appointment. Coding Level of Care Code ED Color Straining Bag Washer for Wesley Herrera
[2022-12-23 21:51] LABS: Troponin(5th) Baseline 13 ng/L (0-10)
[2022-12-23 21:57] VITALS: BP 100/73; PULSE 80; RESP 20; O2SAT 98
[2022-12-23] MEDS: ondansetron 2 mg/ML SDV 2 mL 4 MG IVP (21:57)
[2022-12-23 21:58] VITALS: RESP 16; O2SAT 96
[2022-12-23 21:58] LABS: Alanine Aminotransferase 11 U/L (0-33); Albumin Level 3.6 g/dL (3.5-5.2); Alkaline Phosphatase 96 U/L (35-105); Anion Gap 13.5 (5-19); Aspartate Amino Transferase 13 U/L (0-32); Blood Urea Nitrogen 19 mg/dL (6-20); Calcium 8.6 mg/dL (8.5-10.5); Carbon Dioxide 23 mmol/L (22-29); Chloride 106 mmol/L (98-107); Globulin 2.3 g/dL (1.3-4.6); Glomerular Filtration Rate 47.2 mL/min (90-130); Glucose 81 mg/dL (65-115); Lipase 25 U/L (13-60); NT Pro B Type Natriuretic Pept 9643 pg/mL (0-125); Osmolality Calculated 289 mOsm/kg (285-295); Potassium 3.5 mmol/L (3.5-5.1); Sodium 139 mmol/L (136-145); Total Bilirubin 0.4 mg/dL (0.15-1.2); Total Protein 5.9 g/dL (6.6-8.7)
[2022-12-23] MEDS: morphine 4 mg/mL SDV 1 mL 2 MG IVP (21:58)
[2022-12-23 22:49] VITALS: BP 106/75; PULSE 80; RESP 16; O2SAT 91
[2022-12-23 23:05] VITALS: BP 104/74; PULSE 80; RESP 16; O2SAT 96
[2022-12-23] MEDS: FUROsemide 10 mg/mL SDV 10mL 80 MG IVP (23:07)
[2022-12-23 23:16] VITALS: BP 99/74; PULSE 78; RESP 16; O2SAT 94
--- NOTE | 2022-12-23 23:24 | ECG_ITS ---
[facility] Test Date: 2022-12-23 Pat Name: Elena Pulliam Department: Room: Gender: Female Overhead Line Worker: : 1970 Requested By: Kenny Garsia Order Number: [id number] Reading MD: EMANUEL LUCERO Measurements Intervals [place] Rate: 75 P: 29 MS: 158 QRS: -44 QRSD: 146 T: 98 QT: 364 QTc: 407 Interpretive Statements SINUS RHYTHM LEFT AXIS DEVIATION [QRS AXIS < -30] INTRAVENTRICULAR CONDUCTION DELAY [130+ ms QRS DURATION] Compared to ECG 12/23/2022 21:28:30 Intraventricular conduction delay now present Left bundle-branch block no longer present Electronically Signed On 12-24-2022 23:42:21 CDT by EMANUEL LUCERO [id number]
[2022-12-24] VITALS: BP 103/71; PULSE 76; RESP 16; O2SAT 93
[2022-12-24 00:29] LABS: Troponin 5 2HR 14.91 ng/L (0-10); Troponin 5 2HR Delta 1.91 ABS# (0-10)
[2022-12-24 00:30] VITALS: BP 99/66; PULSE 73; RESP 18; O2SAT 94
[2022-12-24 01:00] VITALS: BP 100/68; PULSE 76; RESP 17; O2SAT 95
[2022-12-24] MEDS: morphine 4 mg/mL SDV 1 mL 2 MG IVP (01:24)
[2022-12-24 01:30] VITALS: BP 104/72; PULSE 76; RESP 16; O2SAT 93
== END 2022-12-24 01:48 | disposition home or self-care (01) ==
PROVIDERS: Nurse Practitioner Family; Emergency Provider Emergency Medicine; PCP Physician Assistant
DX: R07.9 Chest pain, unspecified (principal); I11.0 Hypertensive heart disease with heart failure; I50.9 Heart failure, unspecified; Z79.82 Long term (current) use of aspirin; F17.210 Nicotine dependence, cigarettes, uncomplicated; I13.0 Hypertensive heart and chronic kidney disease with heart failure and stage 1 through stage 4 chronic kidney disease, or unspecified chronic kidney disease; N18.9 Chronic kidney disease, unspecified; Z86.73 Personal history of transient ischemic attack (TIA), and cerebral infarction without residual deficits; Z95.810 Presence of automatic (implantable) cardiac defibrillator
CPT/HCPCS: 71045; 80053; 83690; 83880; 84484; 85025; 93005; 96374; 96375; 96376; 99285; J1940; J2270; J2405

== ENCOUNTER 2022-12-26 09:31 | Emergency (ER) | payer MEDICARE, MEDICAID, SELFPAY ==
[2022-12-26] VITALS (14 sets, daily range): BP systolic 105–122; BP diastolic 70–82; PULSE 77–92; RESP 12–21; TEMP 37.1; O2SAT 92–100
--- NOTE | 2022-12-26 09:39 | XR_ITS ---
WS: [id number] Portable AP upright chest, 12/26/2022 Clinical Data: dyspnea/cough Comparison: Portable chest, 12/23/2022 Findings: No nodules, masses or effusions are seen. The heart is enlarged. The pulmonary vascularity is not increased. No pneumonia or pneumothorax is seen. There is a pacemaker generator overlying the left lateral chest with the wire ending in the right ventricle. There are monitor leads on the chest wall. XR/XR chest 1V portable [id number] Impression: Cardiomegaly and cardiac pacemaker.
--- NOTE | 2022-12-26 09:43 | ECG_ITS ---
[facility] Test Date: 2022-12-26 Pat Name: Elena Pulliam Department: Room: Gender: Female Search Strategist: : 1970 Requested By: Abiodun Johnson Order Number: [id number] Arlette MD: Pola Ferrera M.D. Measurements Intervals [place] Rate: 80 P: 54 IN: 147 QRS: -33 QRSD: 140 T: -24 QT: 436 QTc: 503 Interpretive Statements SINUS RHYTHM LEFT AXIS DEVIATION [QRS AXIS < -30] LEFT BUNDLE BRANCH BLOCK [120+ ms QRS DURATION, 80+ ms Q/S IN V1/V2, 85+ ms R IN I/aVL/V5/V6] Compared to ECG 12/23/2022 23:46:46 Left bundle-branch block now present Intraventricular conduction delay no longer present Electronically Signed On 12-26-2022 16:01:41 CDT by Pola Ferrera M.D. [email or web address]
--- NOTE | 2022-12-26 09:44 | PC.NURSE ---
PT PLACED ON CONTINUOUS SPO2, NIBP, AND CM.
--- NOTE | 2022-12-26 09:51 | ED_ITS ---
HPI - Abdominal Pain General: Chief Complaint: Abdominal Pain Stated Complaint: RT FLANK PAIN & ABDOMINAL PAIN Time Seen by Provider: 12/26/22 09:33 Source: patient Mode of arrival: EMS History of Present Illness: 52-year-old female presents emergency room complaining of right flank pain radiating into the groin. She states it began around 3 AM today. Complains of pain that radiates down into the groin and general into the abdomen she not had any fever sweats or chills she not noticed any dysuria urgency or frequency. MD elicited complaint: flank pain Onset (ago): hour(s) Location: R flank Severity: mild Quality: aching Exacerbating factors: nothing Relieving factors: nothing Associated Symptoms: Reports GI cramping, nausea and poor appetite; Denies anorexia, belching, bloating, change in bowel habits, change in stool character, chills, coffee ground emesis, constipation, diarrhea, dyspepsia, dysuria, excessive flatus, fever(s), heartburn, hematochezia, hematuria, hematemesis, fecal incontinence, loose stools, melena, syncope and vomiting Review of Systems Const: Denies: fever(s), chills, fatigue or malaise ENMT: Denies: throat pain, ear or mastoid pain, nasal discharge or nasal c ongestion Card: Denies: chest pain or syncope Resp: Denies: dyspnea, productive cough or non-productive cough GI: Reports: nausea and GI cramping; Denies: abdominal pain, vomiting, hematemesis, coffee ground emesis, heartburn, diarrhea, constipation, bloating, belching, excessive flatus, fecal incontinence, change in bowel habits, change in stool character, hematochezia or melena : Denies: dysuria or hematuria Skin/Breast: Denies: rash or pruritus PFSH ED PFSH: Medical History Acute hypokalemia AICD discharge AICD discharge Chest pain CHF (congestive heart failure) Related to nonischemic cardiomyopathy, most recent ejection fraction with with EF 42%. CKD (chronic kidney disease) History of recurrent UTIs History of TIA (transient ischemic attack) HTN (hypertension) Hydronephrosis, left Hypertension Hypokalemia Hypokalemia ICD (implantable cardioverter-defibrillator) in place Liver mass Mass of right lobe of liver ~3.5 x 4 cm, indeterminant, hypodense, first noted 11/2021 Nicotine dependence, cigarettes, uncomplicated Non-ischemic cardiomyopathy Nonischemic cardiomyopathy Specific etiology unknown, may have been viral or related to uncontrolled hypertension from her recollection Echocardiogram November 2021 with ejection fraction of 42% - 05/17/22 echo EF now 25% Obstructive pyelonephritis (~11/2021) Syncope Urolithiasis Multi stone former. Complicated by at least 1 episode of obstructive pyelonephritis. Multiple procedures required to treat Ventricular tachycardia Surgical History S/P ureteral stent placement (~11/2021) Status post cholecystectomy Status post placement of cardiac pacemaker Family History Father , AT AGE 77 CAD (coronary artery disease) Cancer lung cancer Mother , AT AGE 60 Cancer OVARIAN Denies family history of Clotting disorder Anesthesia complication Bleeding disorder Social History Smoking and tobacco status: current every day smoker cigarettes Packs smoked per day: 0.5 Years cigarettes smoked: 45 Second hand smoke exposure: Yes Alcohol intake: current Lives independently: Yes Marital status: service: No Current occupational status: disabled Current gender identity: Female Physical Exam Const: GENERAL APPEARANCE: cooperative and comfortable ORIENTATION/CONSCIOUSNESS: Yes awake, Yes oriented to person, Yes oriented to place and Yes oriented to time HENMT: COMMON NORMALS: normocephalic, atraumatic and hearing grossly normal bilaterally HEAD & SCALP: normocephalic and atraumatic Resp: COMMON NORMALS: normal respiratory effort, No retractions, No use of accessory muscles and clear to auscultation bilaterally AUSCULTATION: clear to auscultation bilaterally Cardio: COMMON NORMALS: regular rate, regular rhythm and No murmurs present (Cardio) RATE: regular rate RHYTHM: regular rhythm GI: COMMON NORMALS: Soft to palpation and No hepatosplenomegaly present AUSCULTATION: Yes normoactive bowel sounds PALPATION: Yes Soft to palpation, No Tenderness to palpation present (GI), No Guarding due to palpation present (GI) and Yes No hepatosplenomegaly present Extremity: COMMON NORMALS: normal to inspection, capillary refill normal, no clubbing, cyanosis or edema, no calf tenderness and no pedal edema Neuro: SENSORIUM/ORIENTATION: Yes oriented to person, Yes oriented to place and Yes oriented to time Skin: COMMON NORMALS: no rashes or lesions noted GENERAL SKIN EXAM: no rashes or lesions noted Course Vital Signs: Vital signs: Vital Signs Temperature 98.8 F 12/26/22 09:36 Pulse Rate 77 12/26/22 12:45 Respiratory Rate 12 12/26/22 12:45 Blood Pressure 105/76 12/26/22 12:45 Pulse Oximetry 93 12/26/22 12:45 Oxygen Delivery Me thod 12/26/22 09:36 MDM - Abdominal Pain Medical Decision Making Labs and imaging reviewed. Evidence of mild cystitis previous cultures reviewed we will start her on antibiotics. Nephrostomy tube in center in place with no hydronephrosis or right appears normal. We will discharge patient home with oral antibiotics follow-up with her primary care also gave Pyridium. Medical Records I reviewed the patient's medical records. Lab Data I reviewed the patient's lab results. 12/26/22 10:41 12/26/22 10:41 Labs/Radiology: Radiology Impressions Chest X-Ray 12/26/22 09:39 Impression: Cardiomegaly and cardiac pacemaker. Abdomen/Pelvis CT 12/26/22 10:03 IMPRESSION: 1. Appropriately positioned left percutaneous nephrostomy tube. No hydronephrosis. 2. 2 stones in the proximal to mid left ureter measuring 4 mm and 7 mm. 3. Nonobstructive right nephrolithiasis. 4. Suspect pulmonary interstitial edema. 5. Cardiac enlargement. 6. 4.6 cm right lobe liver mass, stable since 09/30/2022. Nonspecific. Possible malignant neoplasm. Recommend correlation with more remote prior imaging (not available currently). Consider biopsy if not previously performed. 7. Incidental findings above. ADDENDUM: 12/26/22 1106 Correction: The report below contains editing errors. The report was inadvertently signed prior to proof reading the findings section. No errors are present in the impression section. Please note the following corrections of the report below: Liver: There is a 4.6 x 3.9 cm subcapsular mass in the posteroinferior right lobe of the liver. The finding is unchanged since 09/30/2022. Gallbladder and bile ducts: The gallbladder is absent. There is ectasia of the common bile duct and central intrahepatic ducts. Kidneys and ureters: Nonobstructive right renal stones are present. There is no hydronephrosis on the right. There are 2 adjacent calcifications in the proximal to mid left ureter. The larger calcification measures up to 7 mm and the smaller more proximally measures 4 mm. There is no hydronephrosis on the left. Marked left renal atrophy. Left percutaneous nephrostomy tube noted. Appendix: The appendix is normal. Urinary bladder: The urinary bladder is unremarkable. Reproductive: The uterus is unremarkable. There is no adnexal mass or large cyst. Laboratory Results WBC 6.8 10^3/uL (4.0-10.0) 12/26/22 10:41 RBC 3.58 10^6/uL (4.1-5.3) L 12/26/22 10:41 Hgb 12.3 g/dL (11.5-15.3) 12/26/22 10:41 Hct 36.2 % (37.0-47.0) L 12/26/22 10:41 MCV 101.1 fl (81-99) H 12/26/22 10:41 MCH 34.4 pg (28.0-34.0) H 12/26/22 10:41 MCHC 34.0 g/dL (30.0-36.0) 12/26/22 10:41 RDW 13.7 % (12.1-15.1) 12/26/22 10:41 Plt Count 192 10^3/cmm (130-400) 12/26/22 10:41 MPV 11.2 fL (7.4-10.4) H 12/26/22 10:41 Neut % (Auto) 66.4 % 12/26/22 10:41 Lymph % (Auto) 24.3 % 12/26/22 10:41 [place] % (Auto) 6.4 % 12/26/22 10:41 Eos % (Auto) 1.6 % 12/26/22 10:41 Baso % (Auto) 1.0 % 12/26/22 10:41 Neut # (Auto) 4.49 10^3/uL (1.8-7.7) 12/26/22 10:41 Lymph # (Auto) 1.6 10^3/uL (0.8-4.8) 12/26/22 10:41 [place] # (Auto) 0.4 10^3/uL (0.2-0.9) 12/26/22 10:41 Eos # (Auto) 0.1 10^3/uL (0.0-0.8) 12/26/22 10:41 Baso # (Auto) 0.1 10^3/uL (0.0-0.1) 12/26/22 10:41 Nucleated RBC % (auto) 0 % 12/26/22 10:41 Nucleated RBCs # 0.0 /100WBC 12/26/22 10:41 Sodium 138 mmol/L (136-145) 12/26/22 10:41 Potassium 3.6 mmol/L (3.5-5.1) 12/26/22 10:41 Chloride 101 mmol/L (98-107) 12/26/22 10:41 Carbon Dioxide 22 mmol/L (22-29) 12/26/22 10:41 Anion Gap 18.6 (5-19) 12/26/22 10:41 BUN 18 mg/dL (6-20) 12/26/22 10:41 Creatinine 1.2 mg/dL (0.5-0.9) H 12/26/22 10:41 GFR Calculation 47.2 mL/min (90-130) L 12/26/22 10:41 Glucose 115 mg/dL (65-115) 12/26/22 10:41 Calculated Osmolality 289 mOsm/kg (285-295) 12/26/22 10:41 Calcium 8.9 mg/dL (8.5-10.5) 12/26/22 10:41 Total Bilirubin 0.6 mg/dL (0.15-1.2) 12/26/22 10:41 AST 21 U/L (0-32) 12/26/22 10:41 ALT 13 U/L (0-33) 12/26/22 10:41 Alkaline Phosphatase 113 U/L (35-105) H 12/26/22 10:41 NT-Pro-B Natriuret Pep 5970 pg/mL (0-125) H 12/26/22 10:41 Total Protein 6.9 g/dL (6.6-8.7) 12/26/22 10:41 Albumin 4.3 g/dL (3.5-5.2) 12/26/22 10:41 Globulin 2.6 g/dL (1.3-4.6) 12/26/22 10:41 Urine Color Yellow (Yellow) 12/26/22 10:00 Urine Appearance Hazy (CLEAR) A 12/26/22 10:00 Urine pH 6 (5-7) 12/26/22 10:00 Ur Specific [place] 1.015 (1.005-1.030) 12/26/22 10:00 Urine Protein Neg (Negative) 12/26/22 10:00 Urine Glucose (UA) Norm (Normal) 12/26/22 10:00 Urine Ketones Negative (Negative) 12/26/22 10:00 Urine Blood Neg (Negative) 12/26/22 10:00 Urine Nitrate Negative (Negative) 12/26/22 10:00 Urine Bilirubin Neg (Negative) 12/26/22 10:00 Urine Urobilinogen Norm mg/dL (Negative) 12/26/22 10:00 Ur Leukocyte Esterase 2+ (Negative) H 12/26/22 10:00 Urine RBC None /hpf (0-2) 12/26/22 10:00 Urine WBC 25-40 /hpf (0-5) H 12/26/22 10:00 Ur Squamous Epith Cells 15-25 /hpf (0-5) H 12/26/22 10:00 Amorphous Sediment Not Reportable 12/26/22 10:00 Urine Bacteria 2+ /hpf (NONE) H 12/26/22 10:00 Discharge Plan Discharge Patient Disposition: Home Clinical Impression: Urinary tract infection, Left nephrolithiasis Condition: Stable Prescriptions: New Cipro 500 mg tablet 500 mg PO Q12H Qty: 14 0RF Pyridium 200 mg tablet 200 mg PO TID Qty: 6 0RF No Action citalopram [Celexa] 40 mg tablet 40 mg PO QPM zolpidem 10 mg tablet 10 mg PO BEDTIME aspirin [Adult Low Dose Aspirin] 81 mg tablet,delayed release (DR/EC) 162 mg PO QAM Hold Instructions: Resume on 10/19/22. Until after percutaneous tube placed in the left kidney carvedilol 6.25 mg tablet 6.25 mg PO BID Qty: 180 2RF Rx Instructions: must administer with a meal/food sacubitril-valsartan 97-103 mg tablet 1 tab PO BID Qty: 120 3RF Hold Instructions: Resume on 10/09/22. Vitamin B-12 50 mcg Tablet 50 mcg PO QAM montelukast 10 mg tablet 10 mg PO QAM gabapentin 100 mg capsule 100 mg PO TID magnesium 200 mg tablet 200 mg PO DAILY Qty: 30 1RF potassium chloride 10 mEq tablet extended release 10 meq PO DAILY Qty: 30 1RF Rx Instructions: Only take with Lasix furosemide 40 mg tablet 20 mg PO DAILY Qty: 30 0RF spironolactone 25 mg tablet 25 mg PO DAILY Qty: 30 3RF capsaicin 0.025 % Cream 1 applic topical QID PRN (Reason: Pain) Qty: 60 0RF acetaminophen 500 mg Tablet 1,000 mg PO Q6H PRN (Reason: Pain) omeprazole 20 mg capsule,delayed release(DR/EC) 20 mg PO BID nitroglycerin [Nitrostat] 0.4 mg Tablet, Sublingual 0.4 mg SUBLINGUAL Q5M PRN (Reason: Chest Pain) Rx Instructions: do not exceed 3 doses per episode albuterol sulfate 90 mcg/actuation HFA aerosol inhaler 2 puff INHALATION QID PRN (Reason: Shortness Of Breath) Cipro 500 mg tablet 500 mg PO BID Qty: 14 0RF Lasix 40 mg tablet 40 mg PO BID Qty: 6 0RF Discharge Orders: Discharge ED (Routine); Ordered 12/26/22 Ordered By: Abiodun Stone Referrals: Mavis Peterson PA [Primary Care Provider] - Discharge Diet: Usual diet Discharge Activity: Increase activity as tolerated Patient Instructions: Opioid Safety, Pain Management Activity Restrictions/Additional Instructions: You were seen for right flank pain today. You did have mild bladder infection. You are given a prescription for antibiotics to treat this. You are also given Pyridium as a bladder anesthetic recheck with your primary care doctor in the next 3 to 4 days. 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
--- NOTE | 2022-12-26 10:03 | CTR_ITS ---
PROCEDURE INFORMATION: Exam: CT Abdomen And Pelvis Without Contrast Exam date and time: 12/26/2022 10:25 AM Age: 52 years old Clinical indication: Abdominal pain; Flank; Right; Prior surgery; Surgery type: Stents, pacemaker, gb, lt hip, left kidney port; Additional info: Flank pain TECHNIQUE: Imaging protocol: Computed tomography of the abdomen and pelvis without contrast. Radiation optimization: All CT scans at this facility use at least one of these dose optimization techniques: automated exposure control; mA and/or kV adjustment per patient size (includes targeted exams where dose is matched to clinical indication); or iterative reconstruction. REPORTING DATA: Count of CT and Cardiac NM exams in prior 12 months: This patient has received 12 known CTs and 0 known cardiac nuclear medicine studies in the 12 months prior to the current study. COMPARISON: 1. CT abdomen pelvis wo con [id number] 11/27/2022 11:[address] abdomen pelvis wo con [id number] 11/10/2022 7:[address] kidney stone [id number] 09/30/2022 6:35 AM RADIATION DOSE METRICS: Total DLP (mGy-cm): 509.6 FINDINGS: Tubes, catheters and devices: Appropriately positioned left percutaneous nephrostomy tube. No hydronephrosis. No ureteral dilation. Lungs: There is a calcified granuloma in the right lower lobe. There is subtle interlobular septal thickening in the lung bases. Possible interstitial edema. Heart: There is mild cardiac enlargement. Liver: There is of 4.6 x 3.9 cm subcapsular mass in the posteroinferior right lobe of the liver. The finding is unchanged since 11/27/2022. Gallbladder and bile ducts: The gallbladder is absent. There is ectasia of the common bile duct and central intrahepatic ducts. The gallbladder is absent. There is no intrahepatic or extrahepatic bile duct dilation. Pancreas: The pancreas is unremarkable. Spleen: The spleen is unremarkable. Adrenal glands: The adrenal glands are unremarkable. Kidneys and ureters: Nonobstructive right renal stones are present. There is no hydronephrosis or stones. There are 2 adjacent calcifications in the proximal to mid left ureter. The larger calcification measures up to 7 mm and the smaller more proximally measures 4 mm. There is no hydronephrosis. Marked left renal atrophy. Multiple nonobstructive stones in the right kidney. Stomach and bowel: The stomach is decompressed, preventing meaningful evaluation of wall thickness. The small bowel is nondilated. The colon is unremarkable. Appendix: The appendix is normal. The appendix is normal. Intraperitoneal space: There is no free air or significant intraperitoneal free fluid. Vasculature: There is moderate aortic atherosclerotic disease. Lymph nodes: There is no lymphadenopathy in the retroperitoneum, mesentery, pelvis or inguinal regions. Urinary bladder: The urinary bladder is unremarkable. The urinary bladder is unremarkable. Reproductive: The uterus is unremarkable. There is no adnexal mass or large cyst. The uterus is unremarkable. There is no adnexal mass or large cyst. Bones/joints: There is mild degenerative disease in the lower lumbar spine. There is dynamic compression screw fixation of the left femoral neck. The bony pelvis is intact. Soft tissues: The abdominal wall is intact. CT/CT kidney stone [id number] IMPRESSION: 1. Appropriately positioned left percutaneous nephrostomy tube. No hydronephrosis. 2. 2 stones in the proximal to mid left ureter measuring 4 mm and 7 mm. 3. Nonobstructive right nephrolithiasis. 4. Suspect pulmonary interstitial edema. 5. Cardiac enlargement. 6. 4.6 cm right lobe liver mass, stable since 09/30/2022. Nonspecific. Possible malignant neoplasm. Recommend correlation with more remote prior imaging (not available currently). Consider biopsy if not previously performed. 7. Incidental findings above.
[2022-12-26] MEDS: ondansetron 2 mg/ML SDV 2 mL 4 MG IVP (10:14)
[2022-12-26] MEDS: morphine 4 mg/mL SDV 1 mL IVP (10:15)
[2022-12-26 10:42] LABS: Add Urine Microscopic? YES; Bilirubin Urine Neg (Negative); Blood Urine Neg (Negative); Glucose Urine UA Norm (Normal); Ketones Urine Negative (Negative); Leukocyte Esterase Urine 2+ (Negative); Nitrate Urine Negative (Negative); Protein Urine Neg (Negative); Specific Gravity, Urine 1.015 (1.005-1.030); Urine Appearance Hazy (CLEAR); Urine Color Yellow (Yellow); Urobilinogen Urine Norm (Negative); pH Urine 6 (5-7)
[2022-12-26 10:43] LABS: Add Urine Culture? No; Bacteria Urine 2+ /hpf; Squamous Epithelial Cell Urine 15-25 /hpf (0-5); WBC Urine 25-40 /hpf (0-5)
[2022-12-26 10:56] LABS: Basophils # 0.1 10^3/uL (0.0-0.1); Eosinophils # 0.1 10^3/uL (0.0-0.8); Eosinophils % 1.6 %; Hematocrit 36.2 % (37.0-47.0); Hemoglobin 12.3 g/dL (11.5-15.3); Lymphocytes # 1.6 10^3/uL (0.8-4.8); Lymphocytes % 24.3 %; Mean Corpuscular Hemoglobin 34.4 pg (28.0-34.0); Mean Corpuscular Volume 101.1 fl (81-99); Mean Platelet Volume 11.2 fL (7.4-10.4); Monocytes # 0.4 10^3/uL (0.2-0.9); Monocytes % 6.4 %; Neutrophils # 4.49 10^3/uL (1.8-7.7); Neutrophils % 66.4 %; Nucleated Red Blood Cells % 0 %; Platelet Count 192 10^3/cmm (130-400); Red Blood Count 3.58 10^6/uL (4.1-5.3); Red Cell Distribution Width 13.7 % (12.1-15.1); White Blood Count 6.8 10^3/uL (4.0-10.0)
[2022-12-26 11:33] LABS: Albumin Level 4.3 g/dL (3.5-5.2); Alkaline Phosphatase 113 U/L (35-105); Anion Gap 18.6 (5-19); Aspartate Amino Transferase 21 U/L (0-32); Blood Urea Nitrogen 18 mg/dL (6-20); Calcium 8.9 mg/dL (8.5-10.5); Carbon Dioxide 22 mmol/L (22-29); Chloride 101 mmol/L (98-107); Globulin 2.6 g/dL (1.3-4.6); Glomerular Filtration Rate 47.2 mL/min (90-130); Glucose 115 mg/dL (65-115); NT Pro B Type Natriuretic Pept 5970 pg/mL (0-125); Osmolality Calculated 289 mOsm/kg (285-295); Potassium 3.6 mmol/L (3.5-5.1); Sodium 138 mmol/L (136-145); Total Bilirubin 0.6 mg/dL (0.15-1.2); Total Protein 6.9 g/dL (6.6-8.7)
[2022-12-26 11:43] LABS: Alanine Aminotransferase 13 U/L (0-33)
== END 2022-12-26 12:58 | disposition home or self-care (01) ==
PROVIDERS: Emergency Provider Family Medicine; PCP Physician Assistant
DX: N39.0 Urinary tract infection, site not specified (principal); N20.0 Calculus of kidney; Z79.82 Long term (current) use of aspirin; F17.210 Nicotine dependence, cigarettes, uncomplicated; Z95.0 Presence of cardiac pacemaker; I13.0 Hypertensive heart and chronic kidney disease with heart failure and stage 1 through stage 4 chronic kidney disease, or unspecified chronic kidney disease; N18.9 Chronic kidney disease, unspecified; I50.9 Heart failure, unspecified; Z87.440 Personal history of urinary (tract) infections; Z86.73 Personal history of transient ischemic attack (TIA), and cerebral infarction without residual deficits; Z87.442 Personal history of urinary calculi
CPT/HCPCS: 36415; 71045; 74176; 80053; 81001; 83880; 85025; 93005; 96374; 96375; 99285; J2270; J2405

== ENCOUNTER 2022-12-27 14:13 | Emergency (ER) | payer MEDICARE, MEDICAID, SELFPAY ==
[2022-12-27] VITALS (16 sets, daily range): BP systolic 90–147; BP diastolic 65–92; PULSE 80–86; RESP 14–22; TEMP 37.2; O2SAT 91–99; BMI 26.6
--- NOTE | 2022-12-27 14:32 | ED_ITS ---
HPI - Abdominal Pain General: Chief Complaint: Abdominal Pain Stated Complaint: ABDOMINAL PAIN Time Seen by Provider: 12/27/22 14:29 Source: patient Mode of arrival: EMS Limitations: no limitations History of Present Illness: Patient is a 52-year-old female who is well-known to our emergency department here for complaints of upper abdominal/epigastric pain EKG today. Patient was seen at our facility yesterday for abdominal and flank pains. She was diagnosed with UTI and placed on antibiotics. She states she has had 2 doses of her antibiotics and has been taking Azo as well to help with her dysuria and difficulty urinating. She states she is only able to void small amounts at a time. Patient does not complain of flank pain currently. No fevers. Patient also reports constipation stating she has not had a bowel movement for days. CT from yesterday did not comment on any significant const ipation. She was treated with Phenergan by EMS in route and nausea seems to have improved at the time of my initial examination. Patient tells me she has had previous similar abdominal pains but states nobody can figure out what is wrong . She is not having any chest pain, shortness of breath, difficulty breathing. MD elicited complaint: abdominal pain Onset (ago): hour(s) Pain Consistency: intermittent Location: Epigastric Severity: moderate Quality: sharp Radiation: none Migration to: no migration Associated Symptoms: Reports constipation, dysuria, nausea and vomiting; Denies chills, GI cramping, fever(s), hematochezia, hematemesis, melena and syncope Related Data: Patient : No Review of Systems Const: Denies: fever(s), chills, body aches, fatigue or malaise Card: Denies: chest pain, palpitations, irregular heart rhythm, edema, swelling of feet/ankles, lightheadedness, syncope, pre-syncope or dyspnea on exertion Resp: Denies: dyspnea, productive cough, non-productive cough, pain on inspiration, hemoptysis or chest congestion GI: Reports: abdominal pain, nausea, vomiting and constipation; Denies: hematemesis, GI cramping, hematochezia or melena : Reports: difficulty voiding, dysuria and urinary urgency; Denies: flank pain, vaginal odor, vaginal bleeding or pelvic pain Musc: Denies: neck pain, back pain, extremity pain, extremity swelling or joint pain Skin/Breast: Denies: rash Neuro: Denies: headache(s), numbness in extremities, weakness in extremities, sensory changes or dizziness PFSH ED PFSH: Medical History Acute hypokalemia AICD discharge AICD discharge Chest pain CHF (congestive heart failure) Related to nonischemic cardiomyopathy, most recent ejection fraction with with EF 42%. CKD (chronic kidney disease) History of recurrent UTIs History of TIA (transient ischemic attack) HTN (hypertension) Hydronephrosis, left Hypertension Hypokalemia Hypokalemia ICD (implantable cardioverter-defibrillator) in place Liver mass Mass of right lobe of liver ~3.5 x 4 cm, indeterminant, hypodense, first noted 11/2021 Nicotine dependence, cigarettes, uncomplicated Non-ischemic cardiomyopathy Nonischemic cardiomyopathy Specific etiology unknown, may have been viral or related to uncontrolled hypertension from her recollection Echocardiogram November 2021 with ejection fraction of 42% - 05/17/22 echo EF n ow 25% Obstructive pyelonephritis (~11/2021) Syncope Urolithiasis Multi stone former. Complicated by at least 1 episode of obstructive pyelonephritis. Multiple procedures required to treat Ventricular tachycardia Surgical History S/P ureteral stent placement (~11/2021) Status post cholecystectomy Status post placement of cardiac pacemaker Family History Father , AT AGE 77 CAD (coronary artery disease) Cancer lung cancer Mother , AT AGE 60 Cancer OVARIAN Denies family history of Clotting disorder Anesthesia complication Bleeding disorder Social History Smoking and tobacco status: current every day smoker cigarettes Packs smoked per day: 0.5 Years cigarettes smoked: 45 Second hand smoke exposure: Yes Alcohol intake: current Lives independently: Yes Marital status: service: No Current occupational status: disabled Current gender identity: Female Physical Exam Const: COMMON NORMALS: no acute distress, average body habitus, patient oriented x3, no limitations, healthy appearing, alert and well nourished GENERAL APPEARANCE: cooperative ORIENTATION/CONSCIOUSNESS: Yes awake, Yes oriented to person, Yes oriented to place and Yes oriented to time HENMT: COMMON NORMALS: normocephalic and atraumatic HEAD & SCALP: normal to inspection, normocephalic and atraumatic Eye: COMMON NORMALS: no scleral icterus Neck/C-Spine: COMMON NORMALS: full ROM, no lymphadenopathy, supple and no meningeal signs Chest: COMMONS NORMALS: normal inspection of the chest and normal palpation of entire chest wall Resp: COMMON NORMALS: normal respiratory effort and clear to auscultation bilaterally AUSCULTATION: clear to auscultation bilaterally Cardio: COMMON NORMALS: regular rate and regular rhythm RATE: regular rate RHYTHM: regular rhythm GI: COMMON NORMALS: Normal to inspection, nondistended, normoactive bowel sounds present, Soft to palpation, No hepatosplenomegaly present and no masses INSPECTION: Yes normal to inspection AUSCULTATION: Yes normoactive bowel sounds PALPATION: Yes Soft to palpation, Yes Tenderness to palpation present (GI) (epigastric), No Guarding due to palpation present (GI), No Rigid due to palpation and Yes No hepatosplenomegaly present : COMMON NORMALS: Yes no CVA tenderness BLADDER/KIDNEY EXAM: Yes no CVA tenderness OTHER: nephrostomy tube normal Back/Pelvis: COMMON NORMALS: no CVA tenderness and thoracic and lumbar spine normal to inspection Extremity: COMMON NORMALS: normal to inspection GENERAL: Yes normal exam except as noted Neuro: GRETA COMA SCALE: document GCS findings Greta coma scale eye opening: Spontaneous [place] coma scale verbal response: Orientated [place] coma scale motor response: Obey commands Greta coma scale total score: 15 COMMON NORMALS: patient oriented x3 SENSORIUM/ORIENTATION: Yes alert, Yes oriented to person, Yes oriented to place and Yes oriented to time MENINGEAL SIGNS: Yes no meningeal signs Skin: COMMON NORMALS: no rashes or lesions noted GENERAL SKIN EXAM: no rashes or lesions noted Course Vital Signs: Vital signs: Vital Signs Temperature 99.0 F 12/27/22 14:31 Pulse Rate 86 12/27/22 15:20 Respiratory Rate 14 12/27/22 17:24 Blood Pressure 114/69 12/27/22 18:00 Pulse Oximetry 91 12/27/22 18:00 Oxygen Delivery Me thod 12/27/22 15:20 MDM - Abdominal Pain Medical Decision Making Patient is a 52-year-old female here for upper epigastric pain, complaints of constipation, difficulty voiding. She states she is only able to void small amounts. She states she was not able to urinate here thus we performed catheterization. We were able to get 400 mL out of her bladder. I recommended a Leger catheter due to her complaints and urinary retention however patient declines. She states she is able to go small amounts at home and thinks maybe her inability to urinate well could be secondary to some constipation. She states she has not had a bowel movement in 4 days-she states she normally does have issues with constipation. Will send home with a mixture of milk of magnesia/lactulose/mineral oil to take when she gets home. Patient's vital signs are stable. Her blood work is unremarkable. UA is essentially un- reportable secondary to her Pyridium use. Recommend she continue antibiotics she was placed on yesterday for UTI. Recommend she follow up with her PCP or urologist in the next few days for re-evaluation. Return to ED precautions given. Lab Data 12/27/22 14:55 12/27/22 14:55 Labs/Radiology: Laboratory Results WBC 6.0 10^3/uL (4.0-10.0) 12/27/22 14:55 RBC 3.42 10^6/uL (4.1-5.3) L 12/27/22 14:55 Hgb 11.3 g/dL (11.5-15.3) L 12/27/22 14:55 Hct 34.8 % (37.0-47.0) L 12/27/22 14:55 MCV 101.8 fl (81-99) H 12/27/22 14:55 MCH 33.0 pg (28.0-34.0) 12/27/22 14:55 MCHC 32.5 g/dL (30.0-36.0) 12/27/22 14:55 RDW 14.2 % (12.1-15.1) 12/27/22 14:55 Plt Count 188 10^3/cmm (130-400) 12/27/22 14:55 MPV 11.0 fL (7.4-10.4) H 12/27/22 14:55 Neut % (Auto) 69.5 % 12/27/22 14:55 Lymph % (Auto) 20.9 % 12/27/22 14:55 [place] % (Auto) 6.6 % 12/27/22 14:55 Eos % (Auto) 1.7 % 12/27/22 14:55 Baso % (Auto) 1.0 % 12/27/22 14:55 Neut # (Auto) 4.20 10^3/uL (1.8-7.7) 12/27/22 14:55 Lymph # (Auto) 1.3 10^3/uL (0.8-4.8) 12/27/22 14:55 [place] # (Auto) 0.4 10^3/uL (0.2-0.9) 12/27/22 14:55 Eos # (Auto) 0.1 10^3/uL (0.0-0.8) 12/27/22 14:55 Baso # (Auto) 0.1 10^3/uL (0.0-0.1) 12/27/22 14:55 Nucleated RBC % (auto) 0 % 12/27/22 14:55 Nucleated RBCs # 0.0 /100WBC 12/27/22 14:55 Sodium 142 mmol/L (136-145) 12/27/22 14:55 Potassium 4.0 mmol/L (3.5-5.1) 12/27/22 14:55 Chloride 104 mmol/L (98-107) 12/27/22 14:55 Carbon Dioxide 25 mmol/L (22-29) 12/27/22 14:55 Anion Gap 17.0 (5-19) 12/27/22 14:55 BUN 18 mg/dL (6-20) 12/27/22 14:55 Creatinine 1.4 mg/dL (0.5-0.9) H 12/27/22 14:55 GFR Calculation 39.5 mL/min (90-130) L 12/27/22 14:55 Glucose 85 mg/dL (65-115) 12/27/22 14:55 Calculated Osmolality 295 mOsm/kg (285-295) 12/27/22 14:55 Calcium 9.1 mg/dL (8.5-10.5) 12/27/22 14:55 Total Bilirubin 0.5 mg/dL (0.15-1.2) 12/27/22 14:55 AST 15 U/L (0-32) 12/27/22 14:55 ALT 13 U/L (0-33) 12/27/22 14:55 Alkaline Phosphatase 107 U/L (35-105) H 12/27/22 14:55 Total Protein 6.6 g/dL (6.6-8.7) 12/27/22 14:55 Albumin 4.1 g/dL (3.5-5.2) 12/27/22 14:55 Globulin 2.5 g/dL (1.3-4.6) 12/27/22 14:55 Lipase 14 U/L (13-60) 12/27/22 14:55 Urine Color [place] (Yellow) 12/27/22 15:57 Urine Appearance Hazy (CLEAR) A 12/27/22 15:57 Urine pH TNP 12/27/22 15:57 Ur Specific [place] TNP 12/27/22 15:57 Urine Protein TNP 12/27/22 15:57 Urine Glucose (UA) TNP 12/27/22 15:57 Urine Ketones TNP 12/27/22 15:57 Urine Blood TNP 12/27/22 15:57 Urine Nitrate TNP 12/27/22 15:57 Urine Bilirubin TNP 12/27/22 15:57 Urine Urobilinogen TNP 12/27/22 15:57 Ur Leukocyte Esterase TNP 12/27/22 15:57 Urine RBC None /hpf (0-2) 12/27/22 15:57 Urine WBC None /hpf (0-5) 12/27/22 15:57 Ur Squamous Epith Cells 0-4 /hpf (0-5) H 12/27/22 15:57 Amorphous Sediment Not Reportable 12/27/22 15:57 Urine Bacteria None /hpf (NONE) 12/27/22 15:57 Discharge Plan Discharge Patient Disposition: Home Clinical Impression: Acute urinary retention, Constipation, Acute cystitis, Chronic abdominal pain Condition: Stable Prescriptions: No Action citalopram [Celexa] 40 mg tablet 40 mg PO QPM zolpidem 10 mg tablet 10 mg PO BEDTIME aspirin [Adult Low Dose Aspirin] 81 mg tablet,delayed release (DR/EC) 162 mg PO QAM Hold Instructions: Resume on 10/19/22. Until after percutaneous tube placed in the left kidney carvedilol 6.25 mg tablet 6.25 mg PO BID Qty: 180 2RF Rx Instructions: must administer with a meal/food sacubitril-valsartan 97-103 mg tablet 1 tab PO BID Qty: 120 3RF Hold Instructions: Resume on 10/09/22. Vitamin B-12 50 mcg Tablet 50 mcg PO QAM montelukast 10 mg tablet 10 mg PO QAM gabapentin 100 mg capsule 100 mg PO TID magnesium 200 mg tablet 200 mg PO DAILY Qty: 30 1RF potassium chloride 10 mEq tablet extended release 10 meq PO DAILY Qty: 30 1RF Rx Instructions: Only take with Lasix furosemide 40 mg tablet 20 mg PO DAILY Qty: 30 0RF spironolactone 25 mg tablet 25 mg PO DAILY Qty: 30 3RF Cipro 500 mg tablet 500 mg PO Q12H Qty: 14 0RF Pyridium 200 mg tablet 200 mg PO TID Qty: 6 0RF capsaicin 0.025 % Cream 1 applic topical QID PRN (Reason: Pain) Qty: 60 0RF acetaminophen 500 mg Tablet 1,000 mg PO Q6H PRN (Reason: Pain) omeprazole 20 mg capsule,delayed release(DR/EC) 20 mg PO BID nitroglycerin [Nitrostat] 0.4 mg Tablet, Sublingual 0.4 mg SUBLINGUAL Q5M PRN (Reason: Chest Pain) Rx Instructions: do not exceed 3 doses per episode albuterol sulfate 90 mcg/actuation HFA aerosol inhaler 2 puff INHALATION QID PRN (Reason: Shortness Of Breath) Cipro 500 mg tablet 500 mg PO BID Qty: 14 0RF Lasix 40 mg tablet 40 mg PO BID Qty: 6 0RF Discharge Orders: Discharge ED (Routine); Ordered 12/27/22 Ordered By: Lynne Luis Referrals: Mavis Peterson PA [Primary Care Provider] - Patient Instructions: Abdominal Pain (ED) Activity Restrictions/Additional Instructions: As we discussed I have sent you home with a laxative regimen that you can take to help with constipation. You have refused a Leger catheter even though I recommended this for your urinary retention. If any point you are not able to void even small amounts and start having significant abdominal pain/distention you need to return to the emergency department immediately. Please follow-up with your urologist as soon as possible. You need to continue your current antibiotic regimen for your UTI. Coding Level of Care Code ED Oncology Specialist for Wesley Herrera
[2022-12-27] MEDS: lidocaine 2% viscous 15 ML, aluminum-mag hydrox-simethicon 30 ML, sucralfate oral liq 1 GM PO (15:14)
[2022-12-27] MEDS: ondansetron 2 mg/ML SDV 2 mL 4 MG IVP (15:15)
[2022-12-27 15:16] LABS: Basophils # 0.1 10^3/uL (0.0-0.1); Eosinophils # 0.1 10^3/uL (0.0-0.8); Eosinophils % 1.7 %; Hematocrit 34.8 % (37.0-47.0); Hemoglobin 11.3 g/dL (11.5-15.3); Lymphocytes # 1.3 10^3/uL (0.8-4.8); Lymphocytes % 20.9 %; Mean Corpuscular HGB Conc 32.5 g/dL (30.0-36.0); Mean Corpuscular Volume 101.8 fl (81-99); Monocytes # 0.4 10^3/uL (0.2-0.9); Monocytes % 6.6 %; Neutrophils % 69.5 %; Nucleated Red Blood Cells % 0 %; Platelet Count 188 10^3/cmm (130-400); Red Blood Count 3.42 10^6/uL (4.1-5.3); Red Cell Distribution Width 14.2 % (12.1-15.1)
[2022-12-27] MEDS: morphine 4 mg/mL SDV 1 mL IVP (15:16)
[2022-12-27 15:29] LABS: Alanine Aminotransferase 13 U/L (0-33); Albumin Level 4.1 g/dL (3.5-5.2); Alkaline Phosphatase 107 U/L (35-105); Aspartate Amino Transferase 15 U/L (0-32); Blood Urea Nitrogen 18 mg/dL (6-20); Calcium 9.1 mg/dL (8.5-10.5); Carbon Dioxide 25 mmol/L (22-29); Chloride 104 mmol/L (98-107); Globulin 2.5 g/dL (1.3-4.6); Glomerular Filtration Rate 39.5 mL/min (90-130); Glucose 85 mg/dL (65-115); Lipase 14 U/L (13-60); Osmolality Calculated 295 mOsm/kg (285-295); Sodium 142 mmol/L (136-145); Total Bilirubin 0.5 mg/dL (0.15-1.2); Total Protein 6.6 g/dL (6.6-8.7)
[2022-12-27 16:52] LABS: Urine Appearance Hazy (CLEAR); Urine Color Orange (Yellow)
[2022-12-27 16:53] LABS: Add Urine Microscopic? YES
[2022-12-27 17:15] LABS: Add Urine Culture? No; Squamous Epithelial Cell Urine 0-4 /hpf (0-5)
[2022-12-27] MEDS: mineral oil 30 mL UDC PO (17:24)
[2022-12-27] MEDS: lactulose oral liq 20 gm/30 mL UDC 30 GM PO (17:24)
[2022-12-27] MEDS: HYDROmorphone 1 mg/mL INJ 1 mL IVP (17:24)
[2022-12-27] MEDS: magnesium hydroxide 30 mL UDC PO (17:24)
== END 2022-12-27 18:20 | disposition home or self-care (01) ==
PROVIDERS: Emergency Provider Physician Assistant; PCP Physician Assistant
DX: R33.9 Retention of urine, unspecified (principal); K59.00 Constipation, unspecified; N30.00 Acute cystitis without hematuria; G89.29 Other chronic pain; Z79.82 Long term (current) use of aspirin; F17.210 Nicotine dependence, cigarettes, uncomplicated; Z95.0 Presence of cardiac pacemaker; I13.0 Hypertensive heart and chronic kidney disease with heart failure and stage 1 through stage 4 chronic kidney disease, or unspecified chronic kidney disease; N18.9 Chronic kidney disease, unspecified; I50.9 Heart failure, unspecified; Z87.440 Personal history of urinary (tract) infections; Z86.73 Personal history of transient ischemic attack (TIA), and cerebral infarction without residual deficits
CPT/HCPCS: 36415; 80053; 81001; 83690; 85025; 96374; 96375; 99284; J1170; J2270; J2405

== ENCOUNTER 2022-12-29 19:50 | Inpatient (IN) | payer MEDICARE, MEDICAID, SELFPAY ==
[2022-12-29 19:52] VITALS: BP 106/72; PULSE 77; RESP 24; TEMP 37.8; O2SAT 99; BMI 26.6
[2022-12-29] MEDS: acetaminophen 500 mg Tablet 1000 MG PO (20:18)
[2022-12-29] MEDS: HYDROmorphone 1 mg/mL INJ 1 mL IVP (20:18)
[2022-12-29] MEDS: ondansetron 2 mg/ML SDV 2 mL 4 MG IVP (20:18)
[2022-12-29 20:20] VITALS: BP 104/64; PULSE 73; RESP 20; O2SAT 100
[2022-12-29 20:23] LABS: Basophils # 0.1 10^3/uL (0.0-0.1); Eosinophils # 0.1 10^3/uL (0.0-0.8); Eosinophils % 2.1 %; Hematocrit 32.9 % (37.0-47.0); Hemoglobin 10.7 g/dL (11.5-15.3); Lymphocytes # 2.2 10^3/uL (0.8-4.8); Lymphocytes % 35.2 %; Mean Corpuscular HGB Conc 32.5 g/dL (30.0-36.0); Mean Corpuscular Hemoglobin 34.3 pg (28.0-34.0); Mean Corpuscular Volume 105.4 fl (81-99); Mean Platelet Volume 11.6 fL (7.4-10.4); Monocytes # 0.4 10^3/uL (0.2-0.9); Monocytes % 6.8 %; Neutrophils # 3.34 10^3/uL (1.8-7.7); Neutrophils % 54.4 %; Nucleated Red Blood Cells % 0 %; Platelet Count 144 10^3/cmm (130-400); Red Blood Count 3.12 10^6/uL (4.1-5.3); White Blood Count 6.1 10^3/uL (4.0-10.0)
--- NOTE | 2022-12-29 20:34 | ED_ITS ---
HPI - Abdominal Pain General: Chief Complaint: Abdominal Pain Stated Complaint: ABD PAIN Time Seen by Provider: 12/29/22 19:53 Source: patient Mode of arrival: EMS Limitations: no limitations History of Present Illness: 52-year-old female has been seen here multiple times in the past states she is having right lower quadrant abdominal pain its been going on for last day she was seen here 2 days ago for abdominal pain was diagnosed with UTI she had a CT scan at that time. She has low-grade fever den ies any vomiting denies any diarrhea denies any worsening improving factors. Associated Symptoms: Denies chills, dysuria and fever(s) Review of Systems Const: Denies: fever(s), chills, body aches or change in appetite Eyes: Denies: blurry vision or eye discomfort ENMT: Denies: throat pain or dental pain Card: Denies: chest pain Resp: Denies: dyspnea GI: Reports: abdominal pain : Denies: dysuria Musc: Denies: neck pain or back pain Skin/Breast: Denies: rash Neuro: Denies: headache(s) Psych: Denies: depression [place]/Lymph: Denies: easy bruising All/Imm: Denies: urticaria PFSH ED PFSH: Medical History Acute hypokalemia AICD discharge AICD discharge Chest pain CHF (congestive heart failure) Related to nonischemic cardiomyopathy, most recent ejection fraction with with EF 42%. CKD (chronic kidney disease) History of recurrent UTIs History of TIA (transient ischemic attack) HTN (hypertension) Hydronephrosis, left Hypertension Hypokalemia Hypokalemia ICD (implantable cardioverter-defibrillator) in place Liver mass Mass of right lobe of liver ~3.5 x 4 cm, indeterminant, hypodense, first noted 11/2021 Nicotine dependence, cigarettes, uncomplicated Non-ischemic cardiomyopathy Nonischemic cardiomyopathy Specific etiology unknown, may have been viral or related to uncontrolled hypertension from her recollection Echocardiogram November 2021 with ejection fraction of 42% - 05/17/22 echo EF now 25% Obstructive pyelonephritis (~11/2021) Syncope Urolithiasis Multi stone former. Complicated by at least 1 episode of obstructive pyelonephritis. Multiple procedures required to treat Ventricular tachycardia Surgical History S/P ureteral stent placement (~11/2021) Status post cholecystectomy Status post placement of cardiac pacemaker Family History Father , AT AGE 77 CAD (coronary artery disease) Cancer lung cancer Mother , AT AGE 60 Cancer OVARIAN Denies family history of Clotting disorder Anesthesia complication Bleeding disorder Social History Smoking and tobacco status: current every day smoker cigarettes Packs smoked per day: 0.5 Years cigarettes smoked: 45 Second hand smoke exposure: Yes Alcohol intake: current Lives independently: Yes Marital status: service: No Current occupational status: disabled Current gender identity: Female Physical Exam Const: COMMON NORMALS: no acute distress, patient oriented x3 and healthy appearing HENMT: COMMON NORMALS: normocephalic and atraumatic HEAD & SCALP: normocephalic and atraumatic Eye: COMMON NORMALS: Equal, round and reactive pupils present and EOMs intact bilaterally PUPIL: Yes Equal, round and reactive pupils present Neck/C-Spine: COMMON NORMALS: full ROM and supple Chest: COMMONS NORMALS: normal inspection of the chest and normal palpation of entire chest wall Resp: COMMON NORMALS: normal respiratory effort, No retractions, No use of accessory muscles and clear to auscultation bilaterally AUSCULTATION: clear to auscultation bilaterally Cardio: COMMON NORMALS: regular rate, regular rhythm and No murmurs present (Cardio) RATE: regular rate RHYTHM: regular rhythm GI: COMMON NORMALS: Normal to inspection, nondistended, normoactive bowel sounds present, Soft to palpation, non-tender and no masses PALPATION: Yes Soft to palpation Extremity: COMMON NORMALS: normal to inspection and full ROM Neuro: COMMON NORMALS: patient oriented x3, moves all extremities and no focal motor deficits Psych: COMMON NORMALS: mental status grossly normal, Normal thought process present and cooperative THOUGHT PROCESS: Normal thought process present Skin: COMMON NORMALS: no rashes or lesions noted and no wounds GENERAL SKIN EXAM: no rashes or lesions noted Course Vital Signs: Vital signs: Vital Signs Temperature 100.1 F H 12/29/22 19:52 Pulse Rate 73 12/29/22 20:20 Respiratory Rate 20 H 12/29/22 20:20 Blood Pressure 104/64 12/29/22 20:20 Pulse Oximetry 100 12/29/22 20:20 MDM - Abdominal Pain Medical Decision Making Patient presents with acute cystitis she has had some slight hypotension along with fever she had a CT scan 3 days ago nephrostomy tube was appropriately placed she has no pain over the nephrostomy tube will admit at this time 5 antibiotics for her UTI. Lab Data 12/29/22 20:09 12/29/22 20:09 Labs/Radiology: Laboratory Results WBC 6.1 10^3/uL (4.0-10.0) 12/29/22 20:09 RBC 3.12 10^6/uL (4.1-5.3) L 12/29/22 20:09 Hgb 10.7 g/dL (11.5-15.3) L 12/29/22 20:09 Hct 32.9 % (37.0-47.0) L 12/29/22 20:09 MCV 105.4 fl (81-99) H 12/29/22 20:09 MCH 34.3 pg (28.0-34.0) H 12/29/22 20:09 MCHC 32.5 g/dL (30.0-36.0) 12/29/22 20:09 RDW 15.0 % (12.1-15.1) 12/29/22 20:09 Plt Count 144 10^3/cmm (130-400) 12/29/22 20:09 MPV 11.6 fL (7.4-10.4) H 12/29/22 20:09 Neut % (Auto) 54.4 % 12/29/22 20:09 Lymph % (Auto) 35.2 % 12/29/22 20:09 [place] % (Auto) 6.8 % 12/29/22 20:09 Eos % (Auto) 2.1 % 12/29/22 20:09 Baso % (Auto) 1.0 % 12/29/22 20:09 Neut # (Auto) 3.34 10^3/uL (1.8-7.7) 12/29/22 20:09 Lymph # (Auto) 2.2 10^3/uL (0.8-4.8) 12/29/22 20:09 [place] # (Auto) 0.4 10^3/uL (0.2-0.9) 12/29/22 20:09 Eos # (Auto) 0.1 10^3/uL (0.0-0.8) 12/29/22 20:09 Baso # (Auto) 0.1 10^3/uL (0.0-0.1) 12/29/22 20:09 Nucleated RBC % (auto) 0 % 12/29/22 20:09 Nucleated RBCs # 0.0 /100WBC 12/29/22 20:09 Sodium 140 mmol/L (136-145) 12/29/22 20:09 Potassium 3.5 mmol/L (3.5-5.1) 12/29/22 20:09 Chloride 106 mmol/L (98-107) 12/29/22 20:09 Carbon Dioxide 21 mmol/L (22-29) L 12/29/22 20:09 Anion Gap 16.5 (5-19) 12/29/22 20:09 BUN 13 mg/dL (6-20) 12/29/22 20:09 Creatinine 1.4 mg/dL (0.5-0.9) H 12/29/22 20:09 GFR Calculation 39.5 mL/min (90-130) L 12/29/22 20:09 Glucose 93 mg/dL (65-115) 12/29/22 20:09 Calculated Osmolality 290 mOsm/kg (285-295) 12/29/22 20:09 Lactate 2.3 mmol/L (0.5-2.2) H 12/29/22 20:23 Calcium 8.5 mg/dL (8.5-10.5) 12/29/22 20:09 Total Bilirubin 0.4 mg/dL (0.15-1.2) 12/29/22 20:09 AST 18 U/L (0-32) 12/29/22 20:09 ALT 11 U/L (0-33) 12/29/22 20:09 Alkaline Phosphatase 100 U/L (35-105) 12/29/22 20:09 Total Protein 6.1 g/dL (6.6-8.7) L 12/29/22 20:09 Albumin 3.7 g/dL (3.5-5.2) 12/29/22 20:09 Globulin 2.4 g/dL (1.3-4.6) 12/29/22 20:09 Lipase 19 U/L (13-60) 12/29/22 20:09 Urine Color Red (Yellow) 12/29/22 20:58 Urine Appearance Clear (CLEAR) 12/29/22 20:58 Urine pH 5 (5-7) 12/29/22 20:58 Ur Specific [place] 1.030 (1.005-1.030) 12/29/22 20:58 Urine Protein 3+ (Negative) H 12/29/22 20:58 Urine Glucose (UA) Norm (Normal) 12/29/22 20:58 Urine Ketones 1+ (Negative) H 12/29/22 20:58 Urine Blood Neg (Negative) 12/29/22 20:58 Urine Nitrate Positive (Negative) H 12/29/22 20:58 Urine Bilirubin 2+ (Negative) H 12/29/22 20:58 Urine Urobilinogen 12 mg/dL (Negative) H 12/29/22 20:58 Ur Leukocyte Esterase Negative (Negative) 12/29/22 20:58 Urine RBC 0-4 /hpf (0-2) H 12/29/22 20:58 Urine WBC 5-10 /hpf (0-5) H 12/29/22 20:58 Ur Squamous Epith Cells 5-10 /hpf (0-5) H 12/29/22 20:58 Amorphous Sediment Not Reportable 12/29/22 20:58 Urine Bacteria 1+ /hpf (NONE) H 12/29/22 20:58 Hyaline Casts 0-4 /lpf H 12/29/22 20:58 Urine Mucus 1+ /hpf 12/29/22 20:58 Discharge Plan Discharge Patient Disposition: Admitted As Inpatient Clinical Impression: Acute cystitis Condition: Stable Prescriptions: No Action citalopram [Celexa] 40 mg tablet 40 mg PO QPM zolpidem 10 mg tablet 10 mg PO BEDTIME aspirin [Adult Low Dose Aspirin] 81 mg tablet,delayed release (DR/EC) 162 mg PO QAM Hold Instructions: Resume on 10/19/22. Until after percutaneous tube placed in the left kidney carvedilol 6.25 mg tablet 6.25 mg PO BID Qty: 180 2RF Rx Instructions: must administer with a meal/food sacubitril-valsartan 97-103 mg tablet 1 tab PO BID Qty: 120 3RF Hold Instructions: Resume on 10/09/22. Vitamin B-12 50 mcg Tablet 50 mcg PO QAM montelukast 10 mg tablet 10 mg PO QAM gabapentin 100 mg capsule 100 mg PO TID magnesium 200 mg tablet 200 mg PO DAILY Qty: 30 1RF potassium chloride 10 mEq tablet extended release 10 meq PO DAILY Qty: 30 1RF Rx Instructions: Only take with Lasix furosemide 40 mg tablet 20 mg PO DAILY Qty: 30 0RF spironolactone 25 mg tablet 25 mg PO DAILY Qty: 30 3RF Cipro 500 mg tablet 500 mg PO Q12H Qty: 14 0RF Pyridium 200 mg tablet 200 mg PO TID Qty: 6 0RF capsaicin 0.025 % Cream 1 applic topical QID PRN (Reason: Pain) Qty: 60 0RF acetaminophen 500 mg Tablet 1,000 mg PO Q6H PRN (Reason: Pain) omeprazole 20 mg capsule,delayed release(DR/EC) 20 mg PO BID nitroglycerin [Nitrostat] 0.4 mg Tablet, Sublingual 0.4 mg SUBLINGUAL Q5M PRN (Reason: Chest Pain) Rx Instructions: do not exceed 3 doses per episode albuterol sulfate 90 mcg/actuation HFA aerosol inhaler 2 puff INHALATION QID PRN (Reason: Shortness Of Breath) Cipro 500 mg tablet 500 mg PO BID Qty: 14 0RF Lasix 40 mg tablet 40 mg PO BID Qty: 6 0RF Referrals: Mavis Peterson PA [Primary Care Provider] - Coding Level of Care Code ED Aids Counselor for Chg Fwbrandon
[2022-12-29 20:43] LABS: Alanine Aminotransferase 11 U/L (0-33); Albumin Level 3.7 g/dL (3.5-5.2); Alkaline Phosphatase 100 U/L (35-105); Anion Gap 16.5 (5-19); Aspartate Amino Transferase 18 U/L (0-32); Blood Urea Nitrogen 13 mg/dL (6-20); Calcium 8.5 mg/dL (8.5-10.5); Carbon Dioxide 21 mmol/L (22-29); Chloride 106 mmol/L (98-107); Globulin 2.4 g/dL (1.3-4.6); Glomerular Filtration Rate 39.5 mL/min (90-130); Glucose 93 mg/dL (65-115); Lipase 19 U/L (13-60); Osmolality Calculated 290 mOsm/kg (285-295); Potassium 3.5 mmol/L (3.5-5.1); Sodium 140 mmol/L (136-145); Total Bilirubin 0.4 mg/dL (0.15-1.2); Total Protein 6.1 g/dL (6.6-8.7)
[2022-12-29 20:50] LABS: Lactate (Lactic Acid level) 2.3 mmol/L (0.5-2.2)
[2022-12-29 21:19] LABS: Glucose Urine UA Norm (Normal); Ketones Urine 1+ (Negative); Protein Urine 3+ (Negative); Urine Appearance Clear (CLEAR); Urine Color Red (Yellow); pH Urine 5 (5-7)
[2022-12-29 21:20] LABS: Bilirubin Urine 2+ (Negative); Blood Urine Neg (Negative); Nitrate Urine Positive (Negative); Urobilinogen Urine 12 mg/dL (Negative)
[2022-12-29 21:21] LABS: Add Urine Microscopic? YES; Leukocyte Esterase Urine Negative (Negative)
[2022-12-29 21:37] LABS: Bacteria Urine 1+ /hpf; Hyaline Casts Urine 0-4 /lpf; Mucus Urine 1+ /hpf; RBC Urine 0-4 /hpf (0-2)
[2022-12-29 21:39] LABS: Add Urine Culture? Yes
[2022-12-29 21:40] VITALS: BP 95/55; PULSE 69; RESP 18; O2SAT 98
[2022-12-29 22:00] VITALS: BP 99/69; PULSE 66; RESP 18; O2SAT 99
[2022-12-29 22:30] VITALS: BP 97/66; PULSE 62; RESP 18; O2SAT 95
[2022-12-29] MEDS: cefTRIAXone 1,000 MG in sodium chloride 0.9% (plus) 50 ML 100 MG IV (22:40)
[2022-12-29] MEDS: sodium chloride 0.9% 1,000 ML 999 ML IV ×2 (22:41)
[2022-12-29 23:41] VITALS: BP 87/51; BP 91/60; PULSE 63; RESP 19; TEMP 36.4; O2SAT 91
--- NOTE | 2022-12-29 23:52 | XRR_ITS ---
PROCEDURE INFORMATION: Exam: XR Chest Exam date and time: 12/29/2022 11:31 PM Age: 52 years old Clinical indication: Prior surgery; Surgery type: Pacemaker; Patient HX: New onset of fever TECHNIQUE: Imaging protocol: Radiologic exam of the chest. Views: 1 view. COMPARISON: CR (CHEST, ) 12/23/2022 9:44 PM FINDINGS: Tubes, catheters and devices: Stable left chest pacemaker. Lungs: Mild perihilar infiltrates versus pulmonary vascular congestion. Pleural spaces: Unremarkable. No pleural effusion. No pneumothorax. Heart/Mediastinum: Stable heart size. Bones/joints: Unremarkable. XR/XR chest 1V portable [id number] IMPRESSION: Mild perihilar infiltrates versus pulmonary vascular congestion. Correlate for pulmonary infection.
[2022-12-30] VITALS (54 sets, daily range): BP systolic 77–130; BP diastolic 50–84; PULSE 63–89; RESP 10–31; TEMP 36.6–37.6; O2SAT 80–100
[2022-12-30] MEDS: HYDROmorphone 1 mg/mL INJ 1 mL 0.4 MG IVP ×5 (00:05→23:05)
[2022-12-30] MEDS: heparin 5,000 unit/mL INJ 1 mL 5000 UNIT SUBCUT ×3 (00:05→23:05)
--- NOTE | 2022-12-30 00:06 | P.HP_ITS ---
Providers/Chief Complaint Admitting Physician: Rony Benitez Primary Care Provider: Mavis Peterson Chief Complaint: ABD PAIN History of Present Illness 52-year-old lady with obstructive urolithiasis on the left, not amenable to extraction of stones, status post nephrostomy on the left, recently assessed in ER due to abdominal pain, found to have urinary tract infection was started on ciprofloxacin, at that time CT imaging showing a properly positioned nephrostomy, no hydronephrosis, 2 stones proximal mid left ureter measuring 4 and 7 mm. Nonobstructive right nephrolithiasis. Suspect that pulmonary interstitial edema. Cardiac enlargement. 4.6 cm right lobe liver mass stable since 09/30/2022. Nonspecific. Possible malignant neoplasm. Consider biopsy. She presented to ED due to abdominal pain, right lower quadrant, going on for the last day. In ER found to have low-grade fever 100.4 Fahrenheit. She states that she has been emptying urine from the left nephrostomy. She says that she has been having cough. Nausea, some dry heaves. Has had very poor oral intake/appetite. In ER UA with suggestion of UTI with positive nitrate, 5-10 WBC, 5-10 SEC. 0.4 hyaline cast, 1+ mucus. 1+ bacteria. Creatinine same as during prior visit 1.4. She states she has not yet pursued any biopsy for liver mass, it slipped her mind with how busy she got with following up to [facility] with her kidneys and other issues. Review of Systems Const: Denies: fever(s), chills, body aches or malaise ENMT: Denies: throat pain or ear or mastoid pain Card: Denies: chest pain, edema, pre-syncope or dyspnea on exertion Resp: Reports: productive cough; Denies: hemoptysis GI: Reports: abdominal pain and nausea; Denies: vomiting, diarrhea, constipation, hematochezia or melena : Denies: flank pain, urinary frequency or hematuria Musc: Denies: back pain, joint swelling or joint redness Skin/Breast: Denies: rash or new lesions Neuro: Denies: headache(s), numbness in extremities, weakness in extremities, dizziness, confusion or seizure-like activity Medications/Allergies Home Medications Medication Instructions Recorded Confirmed Last Taken Type citalopram 40 mg tablet (Celexa) 40 mg PO QPM 01/31/20 12/08/22 11/15/22 History zolpidem 10 mg tablet 10 mg PO BEDTIME 01/31/20 12/08/22 11/15/22 History aspirin 81 mg tablet,delayed 162 mg PO QAM 01/20/21 12/08/22 11/16/22 History release (Adult Low Dose Aspirin) cyanocobalamin (vitamin B-12) 50 50 mcg PO QAM 11/30/21 12/08/22 11/16/22 History mcg tablet (Vitamin B-12) montelukast 10 mg tablet 10 mg PO QAM 11/30/21 12/08/22 11/16/22 History sacubitril 97 mg-valsartan 103 mg 1 tab PO BID #120 tabs 09/14/22 12/08/22 11/16/22 Rx tablet capsaicin 0.025 % topical cream 1 applic topical QID PRN Pain #60 10/02/22 12/08/22 Unknown Rx grams acetaminophen 500 mg tablet 1,000 mg PO Q6H PRN Pain 10/26/22 12/08/22 Unknown History omeprazole 20 mg capsule,delayed 20 mg PO BID 10/26/22 12/08/22 11/16/22 History release carvedilol 6.25 mg tablet 6.25 mg PO BID #180 tabs 10/28/22 12/08/22 11/16/22 Rx albuterol sulfate 90 mcg/actuation 2 puff inhalation QID PRN 11/10/22 12/08/22 Unknown History aerosol inhaler Shortness Of Breath nitroglycerin 0.4 mg sublingual 0.4 mg sublingual Q5M PRN Chest 11/10/22 12/08/22 Unknown History tablet (Nitrostat) Pain gabapentin 100 mg capsule 100 mg PO TID 12/07/22 12/08/22 1 Week Ago History ~11/30/22 see pharmacy comment furosemide 40 mg tablet 20 mg PO DAILY #30 tabs 12/08/22 12/08/22 Unknown Rx magnesium 200 mg tablet 200 mg PO DAILY #30 tabs 12/08/22 12/08/22 Unknown Rx potassium chloride 10 mEq 10 meq PO DAILY #30 tabs 12/08/22 12/08/22 Unknown Rx tablet,extended release spironolactone 25 mg tablet 25 mg PO DAILY #30 tabs 12/08/22 12/08/22 Unknown Rx ciprofloxacin HCl 500 mg tablet 500 mg PO BID #14 tabs 12/21/22 Unknown Rx (Cipro) furosemide 40 mg tablet (Lasix) 40 mg PO BID #6 tabs 12/24/22 Unknown Rx ciprofloxacin HCl 500 mg tablet 500 mg PO Q12H #14 tabs 12/26/22 Unknown Rx (Cipro) phenazopyridine 200 mg tablet 200 mg PO TID 6 doses #6 tabs 12/26/22 Unknown Rx (Pyridium) Allergies Allergy/AdvReac Type Severity Reaction Status Date / Time egg Allergy unknown Verified 12/21/22 16:42 PFSH Acute PFSH: Medical History (Updated 12/30/22 @ 00:14 by Rony Benitez MD) Acute hypokalemia AICD discharge AICD discharge Chest pain CHF (congestive heart failure) Related to nonischemic cardiomyopathy, most recent ejection fraction with with EF 42%. CKD (chronic kidney disease) History of recurrent UTIs History of TIA (transient ischemic attack) HTN (hypertension) Hydronephrosis, left Hypertension Hypokalemia Hypokalemia ICD (implantable cardioverter-defibrillator) in place Liver mass Mass of right lobe of liver ~3.5 x 4 cm, indeterminant, hypodense, first noted 11/2021 Nicotine dependence, cigarettes, uncomplicated Non-ischemic cardiomyopathy Nonischemic cardiomyopathy Specific etiology unknown, may have been viral or related to uncontrolled hypertension from her recollection Echocardiogram November 2021 with ejection fraction of 42% - 05/17/22 echo EF now 25% Obstructive pyelonephritis (~11/2021) Syncope Urolithiasis Multi stone former. Complicated by at least 1 episode of obstructive pyelonephritis. Multiple procedures required to treat Ventricular tachycardia Surgical History S/P ureteral stent placement (~11/2021) Status post cholecystectomy Status post placement of cardiac pacemaker Family History Father , AT AGE 77 CAD (coronary artery disease) Cancer lung cancer Mother , AT AGE 60 Cancer OVARIAN Denies family history of Clotting disorder Anesthesia complication Bleeding disorder Social History Smoking and tobacco status: current every day smoker cigarettes Packs smoked per day: 0.5 Years cigarettes smoked: 45 Second hand smoke exposure: Yes Alcohol intake: current Lives independently: Yes Marital status: service: No Current occupational status: disabled Current gender identity: Female Vitals/I&O/Wt Last Vital Signs Temp 100.1 F H 12/29/22 19:52 Pulse 62 12/29/22 22:30 Resp 18 12/29/22 22:30 BP 97/66 12/29/22 22:30 Pulse Ox 95 12/29/22 22:30 O2 Del Method 12/29/22 23:29 12/29/22 12/29/22 12/30/22 14:59 22:59 06:59 Intake Total 2049 Balance 2049 Weight last 48 hrs Weight 72.575 kg Physical Exam Const: COMMON NORMALS: patient oriented x3 and alert GENERAL APPEARANCE: cooperative ORIENTATION/CONSCIOUSNESS: Yes awake HENMT: COMMON NORMALS: oropharynx normal Neck/C-Spine: COMMON NORMALS: no JVD Resp: COMMON NORMALS: normal respiratory effort and clear to auscultation bilaterally AUSCULTATION: clear to auscultation bilaterally Cardio: COMMON NORMALS: no JVD, regular rhythm, S1 normal heart sound present, S2 normal heart sound present and No murmurs present (Cardio) RHYTHM: regular rhythm HEART SOUNDS: S1 normal heart sound present and S2 normal heart sound present GI: COMMON NORMALS: Normal to inspection, nondistended, normoactive bowel sounds present and Soft to palpation PALPATION: Yes Soft to palpation and Yes Tenderness to palpation present (GI) Details: RLQ Extremity: COMMON NORMALS: no joint enlargement and no pedal edema Neuro: COMMON NORMALS: patient oriented x3 and moves all extremities SENSORIUM/ORIENTATION: Yes alert Skin: COMMON NORMALS: no rashes or lesions noted GENERAL SKIN EXAM: no rashes or lesions noted Data 12/29/22 20:09 12/29/22 20:09 Micro: Microbiology 12/29/22 20:29 Blood Culture - Preliminary Blood SPECIMEN COLLECTED 12/29/22 20:20 Blood Culture - Preliminary Blood SPECIMEN COLLECTED A&P Assessment and plan (1) Fever: Suspected complicated UTI, recently diagnosed during prior visit to ER, again with nitrate, WBC and urine. No urine culture available unfortunately from recent visit. Urine culture obtained in ER from lower urinary tract. Requesting also separate urine culture from left nephrostomy. Review of prior urine cultures noted growing bacterium, previously pansensitive E. coli. Continue ceftriaxone for now. Assess for other source of fever, she has been coughing, will assess chest x- ray, COVID PCR panel. Follow-up CBC requested. (2) Abdominal pain: May be secondary to cystitis, possibly liver mass, she has had recurrent pain on the right side previously. Currently appears perhaps slightly lower. Recent CT imaging 3 days ago without suggestion of acute abnormality on the right side. Noted some nephrolithiasis, although currently only 0-4 RBC in urine, creatinine unchanged. For now empiric treatment of UTI as above. If not improving consider reimaging. Despite oral medication requiring additional treatment with IV Dilaudid. (3) Complicated UTI (urinary tract infection): With chronic left-sided ureterolithiasis, left-sided nephrostomy. Additional assessment and management as above including urine culture obtained from lower urinary tract and requested currently also from left-sided nephrosto my. As discussed with ER physician to let her know nephrostomy tube can not be exchanged here if that became needed. (4) Liver mass: Please reinforce with her and assist if possible regarding further liver mass assessment, suspicious for possible malignancy as this cannot be done here due to mass location. She states that it slipped her mind to seek biopsy with her getting busy with her renal failure and other problems. Plan Hypotension: In ER blood pressure soft, improved with fluid bolus. Appears dry. Has had poor oral intake recently. Hold diuretic for now. Reassess blood pressure. Follow-up blood chemistry requested. AICD CHF: Not currently in exacerbation, currently slightly on the dry side. Hold diuretic for now. CKD History of recurrent UTI History of TIA HTN Other medical problems Discussed with ER physician, documentation reviewed. Requesting her medications to be confirmed, please reconcile once available. Attestations Medical Necessity Statement*: Place in observation for additional assessment m anagement of fever, persistent complicated UTI, hypotension related with underlying CHF, cardiomyopathy, additional medical problems as above. Diagnoses Fever R50.9 Abdominal pain R10.9 Complicated UTI (urinary tract infection) N39.0 Liver mass R16.0
[2022-12-30] MEDS: albumin 25 G/100 ML BAG 60 G IV (03:24)
[2022-12-30] MEDS: midodrine 5 mg TABLET PO ×4 (03:28→20:18)
[2022-12-30 03:50] LABS: Adenovirus Not Detected (NOT DETECT); Chlamydia Pneumoniae Not Detected (NOT DETECT); Coronavirus 229E,HKU1,NL63,OC4 Not Detected (NOT DETECT); Human Metapneumovirus Not Detected (NOT DETECT); Human Rhinovirus/Enterovirus Not Detected (NOT DETECT); Influenza A Not Detected (NOT DETECT); Influenza A H1 Not Detected (NOT DETECT); Influenza A H1-2009 Not Detected (NOT DETECT); Influenza A H3 Not Detected (NOT DETECT); Influenza B Not Detected (NOT DETECT); Mycoplasma Pneumoniae Not Detected (NOT DETECT); Parainfluenza Virus Type 1 Not Detected (NOT DETECT); Parainfluenza Virus Type 2 Not Detected (NOT DETECT); Parainfluenza Virus Type 3 Not Detected (NOT DETECT); Parainfluenza Virus Type 4 Not Detected (NOT DETECT); Respiratory Syncytial Virus A Not Detected (NOT DETECT); Respiratory Syncytial Virus B Not Detected (NOT DETECT); SARS-COV-2 Not Detected (NOT DETECT)
[2022-12-30 05:33] LABS: Basophils % 0.7 %; Eosinophils # 0.2 10^3/uL (0.0-0.8); Eosinophils % 3.4 %; Hematocrit 30.7 % (37.0-47.0); Hemoglobin 9.4 g/dL (11.5-15.3); Lymphocytes # 1.8 10^3/uL (0.8-4.8); Lymphocytes % 41.4 %; Mean Corpuscular HGB Conc 30.6 g/dL (30.0-36.0); Mean Corpuscular Hemoglobin 33.3 pg (28.0-34.0); Mean Corpuscular Volume 108.9 fl (81-99); Mean Platelet Volume 11.7 fL (7.4-10.4); Monocytes # 0.4 10^3/uL (0.2-0.9); Nucleated Red Blood Cells % 0 %; Platelet Count 112 10^3/cmm (130-400); Red Blood Count 2.82 10^6/uL (4.1-5.3); Red Cell Distribution Width 14.8 % (12.1-15.1); White Blood Count 4.4 10^3/uL (4.0-10.0)
[2022-12-30] MEDS: pantoprazole 40 mg SDV IVP (05:35)
[2022-12-30] MEDS: ondansetron 2 mg/ML SDV 2 mL 4 MG IVP ×4 (05:35→19:41)
[2022-12-30 05:48] LABS: Anion Gap 14.6 (5-19); Blood Urea Nitrogen 12 mg/dL (6-20); Calcium 8.1 mg/dL (8.5-10.5); Carbon Dioxide 23 mmol/L (22-29); Chloride 111 mmol/L (98-107); Glomerular Filtration Rate 36.5 mL/min (90-130); Glucose 83 mg/dL (65-115); Osmolality Calculated 299 mOsm/kg (285-295); Potassium 3.6 mmol/L (3.5-5.1); Sodium 145 mmol/L (136-145)
--- NOTE | 2022-12-30 10:33 | CT_ITS ---
WS: [id number] EXAMINATION: CT abdomen pelvis wo con [id number] REASON FOR EXAM: Renal stones, pyelo COMPARISON: 12/26/2022 ORDER DATE: 12/30/2022 2:55 PM TOTAL EXAM DLP: 582.[address] scans at [facility] use at least one of these dose optimization techniques: automated e xposure control; mA and/or kV adjustment per patient size (includes targeted exams where dose is matc hed to clinical indication); or iterative reconstruction. TECHNIQUE: Axial CT imaging of the abdomen and pelvis performed without oral or intravenous contrast. 2-D Reformatted images are obtained. Evaluation of solid organs, bowel wall and vascular structures is limited due to the lack of IV contr ast. FINDINGS: LOWER THORAX: There is bibasilar atelectasis and or possibly early dependent pulmonary edema with int erstitial thickening. Small right and trace left effusions. Cardiomegaly. Liver: There is a 4.6 x 3.9 cm subcapsular mass in the posteroinferior right lobe of the liver. The finding is unchanged since 09/30/2022. There is a new anterior perihepatic flu id collection with an elliptical shape approximately 2 cm in width. There is a tiny subhepatic fluid collection. Gallbladder and bile ducts: The gallbladder is absent. There is ectasia of the common bile duct and central intrahepatic ducts. Kidneys and ureters: Nonobstructive right renal stones are present. There is no hydronephrosis on the right. There are 2 adjacent calcifications in the proximal to mid left ureter. The larger calcification measures up to 7 mm and the smaller more proximally measures 4 mm. There is no hydronephrosis on the left as a result of left nephrostomy tube placement. Marked left renal atrophy. Appendix: The appendix is normal. Urinary bladder: The urinary bladder is unremarkable. Reproductive: The uterus is unremarkable. There is no adnexal mass or large cyst. BONES: The visualized osseous structures are intact. No suspicious osteolytic or osteoblastic lesions . Left hip pinning noted. . CT/CT abdomen pelvis wo con [id number] IMPRESSION: 1. Developing small pleural effusions 2 stones in the proximal to mid left ureter measuring 4 mm and 7 mm. Left kidne y decompressed by nephrostomy tube. 3. Nonobstructive right nephrolithiasis. 4. Suspect pulmonary interstitial edema. 5. Cardiac enlargement. 6. 4.6 cm right lobe liver mass, stable since 09/30/2022. Nonspecific. Possible malignant neoplasm. Recommend correlation with more remote prior imaging (not available currently). Consider PET/CT or biopsy if not previously performed. 7. Low volume ascites not present on the prior study.
[2022-12-30] MEDS: sodium chloride 0.9% 1,000 ML 50 ML IV (11:01)
[2022-12-30] MEDS: vancomycin 1,000 MG in sodium chloride 0.9% 250 ML 250 MG IV (11:01)
[2022-12-30 11:05] LABS: Iron 65 ug/dL (37-145); Percent Saturation 27.4 % (20-50); Total Iron Binding Capacity 237 mcg/dl; Unsaturated Iron Binding 172 ug/dL (112-347)
[2022-12-30 11:21] LABS: Procalcitonin 0.09 ng/mL (0-0.5); Vitamin B12 1895 pg/mL (232-1245)
[2022-12-30 11:22] LABS: Folate Level 4.8 ng/mL (4.8-37.3)
[2022-12-30] MEDS: morphine 4 mg/mL SDV 1 mL 1 MG IVP (11:52)
--- NOTE | 2022-12-30 13:20 | PC.PHAR ---
Pharmacy to dose vancomycin (PolicyStat ID: [id number]) Diagnosis: cystitis Dosing requested (target trough- Standard: 10-15; High: 15-20):Standard Calculated dose (rounded) 15 mg/k,000 mg Calculated frequency: q24h Trough values drawn before doses 3-5: before 4th dose 01/02/2023 should produce a trough ~13, will monitor Scr to see if it improves. will adjust frequency.
--- NOTE | 2022-12-30 13:28 | PC.NURSE ---
stent placement left to leg bag specimen to lab as per order... requesting different pain medication doctor called
[2022-12-30] MEDS: HYDROcodone-acetaminophen 5-325 mg Tablet 1 TAB PO ×2 (14:11→22:18)
--- NOTE | 2022-12-30 16:21 | PM.PN ---
Subjective Subjective: Admitted overnight. H&P and labs appreciated. On examination early in the morning patient was on Levophed of 2 complaining of pain in the right flank region. Denies any nausea, vomiting, headache. On GlucoDock. Patient's mean arterial pressure is maintaining over 65. On 2 L of oxygen supplementation. Vitals/I&O/Wt Last Vital Signs Temp 97.8 F 12/30/22 05:00 Pulse 72 12/30/22 12:00 Resp 14 12/30/22 12:00 BP 114/79 12/30/22 12:00 Pulse Ox 95 12/30/22 12:00 O2 Del Method 12/30/22 04:00 O2 Flow Rate 2 12/30/22 04:00 12/30/22 12/30/22 12/30/22 06:59 14:59 22:59 Intake Total 2150 / 2150 990 / 990 Balance 2150 / 2150 990 / 990 Weight last 48 hrs Weight 70.31 kg Weight 72.575 kg Physical Exam Const: COMMON NORMALS: patient oriented x3 and alert GENERAL APPEARANCE: cooperative ORIENTATION/CONSCIOUSNESS: Yes awake HENMT: COMMON NORMALS: oropharynx normal Neck/C-Spine: COMMON NORMALS: no JVD Resp: COMMON NORMALS: normal respiratory effort and clear to auscultation bilaterally AUSCULTATION: clear to auscultation bilaterally Cardio: COMMON NORMALS: no JVD, regular rhythm, S1 normal heart sound present, S2 normal heart sound present and No murmurs present (Cardio) RHYTHM: regular rhythm HEART SOUNDS: S1 normal heart sound present and S2 normal heart sound present GI: COMMON NORMALS: Normal to inspection, nondistended, normoactive bowel sounds present and Soft to palpation PALPATION: Yes Soft to palpation and Yes Tenderness to palpation present (GI) Extremity: COMMON NORMALS: no joint enlargement and no pedal edema Neuro: COMMON NORMALS: patient oriented x3 and moves all extremities SENSORIUM/ORIENTATION: Yes alert Skin: COMMON NORMALS: no rashes or lesions noted GENERAL SKIN EXAM: no rashes or lesions noted Data 12/30/22 04:58 12/30/22 04:58 Micro: Microbiology 12/29/22 20:29 Blood Culture - Preliminary Blood SPECIMEN COLLECTED 12/29/22 20:20 Blood Culture - Preliminary Blood SPECIMEN COLLECTED A&P Assessment and plan (1) Septic shock: In setting of complicated UTI. Keep mean artery pressure over 65. Wean Levophed given blood pressure over 65. Continue on midodrine 5 mg 3 times daily. Hold off on antihypertensives. Start on gentle IV hydration with normal saline at 50 cc/h while monitoring for fluid overload. (2) Complicated UTI (urinary tract infection): With chronic left-sided ureterolithiasis, left-sided nephrostomy. Follow-up with urine culture. Repeat urine culture as well from left nephrostomy. On review of culture results from past patient has history of Enterococcus UTI. Continue with IV ceftriaxone. Add vancomycin. (3) GERRI (acute kidney injury): In setting of septic shock along with complicated UTI. Baseline creatinine 1.1. Currently 1.5. Medical reconciliation done for nephrotoxic drugs. Hold off on Entresto for now. Monitor electrolytes. Monitor BMP daily. Monitor urine output. (4) Nephrostomy status: (5) CHF (congestive heart failure): Last echocardiogram from October 2022 shows an EF of 20-25%. Nonischemic cardiomyopathy. No signs of fluid overload for now. Monitor fluid status. Hold off on Entresto, spironolactone, carvedilol for now. Continue with home dose of aspirin Qualifiers: Heart failure type: diastolic Heart failure chronicity: chronic Qualified Code(s): I50.32 - Chronic diastolic (congestive) heart failure (6) Abdominal pain: Most likely in setting of complicated UTI. Patient does have history of liver mass in the past. Appreciate CT abdomen pelvis done 3 days ago. On review of CT scan patient did have renal stones on the right kidney as well. Given extreme pain repeat CT abdomen pelvis without contrast. IV Dilaudid 0.4 mg every 6 hours as needed along with [place] 5 mg every 8 hourly as needed. (7) Liver mass: Seen on the CT scan done on 12/26. Could be malignant neoplasm. Will need to follow-up as an outpatient for possible liver biopsy. (8) Renal atrophy, left: Plan Analgesia: Dilaudid 0.4 every 6 hours as needed, [place] 5 mg every 8 hourly as needed Glycemic control: Not needed. Check A1c. Nutrition: Cardiac CODE STATUS: Full code PUD prophylaxis: Protonix DVT prophylaxis: Heparin 5000 every 12 hourly. Discharge planning: Home with caregiver once medically stable. Continue with care at ICU This documentation was created by [employer] internet sales consultant software. Every effort was made to ensure accuracy of automotive internet sales consultant. Any obvious errors or omissions should be clarified with the author of the document. Attestations Medical Necessity Statement*: Requires further hospitalization for management of septic shock in setting of complicated UTI with left nephrostomy in a patient with history of nonischemic cardiomyopathy with an EF of 20 to 25%. Coding Level of Care Code Critical Care >/= 30 minutes Critical care time (in minutes): 60 The high probability of a clinically significant, sudden or life threatening deterioration, as referenced in this documentation, required my full and direct attention, intervention and personal management. The critical care time shown is in addition to time spent performing any reported separately billable procedures and includes the following: [x] Data and vital sign review and interpretation [x] Patient assessment, examination and intervention [x] Medication orders and management [x] Patient/Family updates as able [x] Care Coordination and Documentation. Diagnoses Septic shock A41.9; R65.21 Complicated UTI (urinary tract infection) N39.0 GERRI (acute kidney injury) N17.9 Nephrostomy status Z93.6 CHF (congestive heart failure) I50.32 Heart failure type: diastolic Heart failure chronicity: chronic Abdominal pain R10.9 Liver mass R16.0 Renal atrophy, left N26.1
--- NOTE | 2022-12-30 17:58 | PC.NURSE ---
multiple iv sticks today for seperate ivs pt very tearful with them and after blood return when flushed c/o pain with saline flush to ct for scan abdomen
[2022-12-30] MEDS: zolpidem 5 mg Tablet 10 MG PO (20:18)
[2022-12-30] MEDS: cefTRIAXone 1,000 MG in sodium chloride 0.9% (plus) 50 ML 100 MG IV (20:19)
[2022-12-31] VITALS (47 sets, daily range): BP systolic 109–141; BP diastolic 64–95; PULSE 73–102; RESP 13–29; TEMP 36.7–37; O2SAT 80–99
[2022-12-31] MEDS: ondansetron 2 mg/ML SDV 2 mL 4 MG IVP ×3 (03:55→19:28)
[2022-12-31] MEDS: HYDROmorphone 1 mg/mL INJ 1 mL 0.4 MG IVP ×3 (05:18→20:21)
[2022-12-31 06:37] LABS: Alanine Aminotransferase 55 U/L (0-33); Albumin Level 3.6 g/dL (3.5-5.2); Alkaline Phosphatase 85 U/L (35-105); Aspartate Amino Transferase 83 U/L (0-32); Blood Urea Nitrogen 16 mg/dL (6-20); Calcium 8.5 mg/dL (8.5-10.5); Carbon Dioxide 18 mmol/L (22-29); Chloride 104 mmol/L (98-107); Chol HDL Ratio 5.35 mg/dL (0.0-4.40); Cholesterol 107 mg/dL (0-200); Globulin 2.3 g/dL (1.3-4.6); Glomerular Filtration Rate 39.5 mL/min (90-130); Glucose 81 mg/dL (65-115); HDL Cholesterol 20 mg/dL (60-100); LDL Cholesterol Calculated 61 mg/dL (50-129); Osmolality Calculated 286 mOsm/kg (285-295); Sodium 138 mmol/L (136-145); Total Bilirubin 0.5 mg/dL (0.15-1.2); Total Protein 5.9 g/dL (6.6-8.7); Triglycerides 132 mg/dL (0-150); VLDL Cholestrol Calculation 26 mg/dL (0-30)
[2022-12-31 06:55] LABS: Anion Gap 19.4 (5-19); Potassium 3.4 mmol/L (3.5-5.1)
[2022-12-31] MEDS: midodrine 5 mg TABLET PO ×3 (08:18→20:20)
[2022-12-31] MEDS: HYDROcodone-acetaminophen 5-325 mg Tablet 1 TAB PO (08:18)
[2022-12-31] MEDS: pantoprazole 40 mg SDV IVP ×2 (08:18→20:21)
--- NOTE | 2022-12-31 10:40 | PC.NURSE ---
up in room am care done by patient clothes changed at this time piid remains intact at this time
[2022-12-31] MEDS: vancomycin 1,000 MG in sodium chloride 0.9% 250 ML 250 MG IV (10:55)
[2022-12-31] MEDS: heparin 5,000 unit/mL INJ 1 mL 5000 UNIT SUBCUT ×2 (10:55→23:34)
--- NOTE | 2022-12-31 14:23 | ECG_ITS ---
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 Measurements Intervals [place] Rate: 81 P: 116 WV: 148 QRS: -23 QRSD: 138 T: 150 QT: 436 QTc: 507 Interpretive Statements SINUS RHYTHM INTRAVENTRICULAR CONDUCTION DELAY [130+ ms QRS DURATION] POSSIBLE LATERAL MYOCARDIAL INFARCTION , OF INDETERMINATE AGE [30 ms Q WAVE IN I/aVL/V5/V6] Compared to ECG 12/26/2022 09:43:19 Intraventricular conduction delay now present Myocardial infarct finding now present Left-axis deviation no longer present Left bundle-branch block no longer present Electronically Signed On 12-31-2022 15:23:09 CDT by Pola Ferrera M.D. [id number]
[2022-12-31] MEDS: sodium bicarbonate 650 mg Tablet PO ×2 (14:29→20:19)
[2022-12-31 15:23] LABS: Troponin(5th) Baseline 15 ng/L (0-10)
[2022-12-31] MEDS: gabapentin 100 mg Capsule PO ×2 (15:34→20:20)
--- NOTE | 2022-12-31 16:20 | ECG_ITS ---
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 Measurements Intervals [place] Rate: 78 P: 35 HI: 157 QRS: -38 QRSD: 144 T: 77 QT: 359 QTc: 409 Interpretive Statements SINUS RHYTHM LEFT AXIS DEVIATION [QRS AXIS < -30] LEFT BUNDLE BRANCH BLOCK [120+ ms QRS DURATION, 80+ ms Q/S IN V1/V2, 85+ ms R IN I/aVL/V5/V6] Compared to ECG 12/31/2022 14:23:07 Left-axis deviation now present Left bundle-branch block now present Intraventricular conduction delay no longer present Myocardial infarct finding no longer present Electronically Signed On 01-01-2023 22:37:33 CDT by Poal Ferrera M.D. [id number]
[2022-12-31] MEDS: ALPRAZolam 0.5 mg Tablet PO (17:28)
[2022-12-31] MEDS: citalopram 20 mg Tablet 40 MG PO (17:28)
--- NOTE | 2022-12-31 17:40 | PM.PN ---
Subjective Subjective: No acute events overnight. Patient has remained hemodynamically stable and afebrile. Off Levophed. Has been afebrile. Patient continues to complain of abdominal pain and occasional episodes of nausea but no vomiting. Continues to have poor appetite. Abdominal pain is generalized but more so in right lower quadrant and epigastric. EKGs were done which was and baseline. Troponin cycle has been baseline. Seen with a family member at bedside. All the questions were answered. Discussed in detail with the patient regarding need for better oral intake. Also discussed a possible transition to softer diet if she thinks that will improve her oral intake. For now patient wants to continue on the same diet. Vitals/I&O/Wt Last Vital Signs Temp 98.6 F 12/31/22 04:00 Pulse 78 12/31/22 17:30 Resp 21 H 12/31/22 17:30 BP 127/87 12/31/22 17:30 Pulse Ox 99 12/31/22 17:30 O2 Del Method 12/30/22 04:00 O2 Flow Rate 2 12/30/22 04:00 12/31/22 12/31/22 12/31/22 06:59 14:59 22:59 Intake Total 1500 / 3390 550 / 550 Balance 1500 / 3190 550 / 550 Weight last 48 hrs Weight 72.847 kg Weight 70.31 kg Weight 72.575 kg Physical Exam Const: COMMON NORMALS: patient oriented x3 and alert GENERAL APPEARANCE: cooperative ORIENTATION/CONSCIOUSNESS: Yes awake HENMT: COMMON NORMALS: oropharynx normal Neck/C-Spine: COMMON NORMALS: no JVD Resp: COMMON NORMALS: normal respiratory effort and clear to auscultation bilaterally AUSCULTATION: clear to auscultation bilaterally Cardio: COMMON NORMALS: no JVD, regular rhythm, S1 normal heart sound present, S2 normal heart sound present and No murmurs present (Cardio) RHYTHM: regular rhythm HEART SOUNDS: S1 normal heart sound present and S2 normal heart sound present GI: COMMON NORMALS: Normal to inspection, nondistended, normoactive bowel sounds present and Soft to palpation PALPATION: Yes Soft to palpation and Yes Tenderness to palpation present (GI) Extremity: COMMON NORMALS: no joint enlargement and no pedal edema Neuro: COMMON NORMALS: patient oriented x3 and moves all extremities SENSORIUM/ORIENTATION: Yes alert Skin: COMMON NORMALS: no rashes or lesions noted GENERAL SKIN EXAM: no rashes or lesions noted Data 12/30/22 04:58 12/31/22 04:35 Micro: Microbiology 12/29/22 20:58 Urine Culture - Preliminary Urine,Clean Catch 12/29/22 20:29 Blood Culture - Preliminary Blood NEGATIVE TO DATE 12/29/22 20:20 Blood Culture - Preliminary Blood NEGATIVE TO DATE A&P Assessment and plan (1) Septic shock: Resolved. Levophed weaned off. In setting of complicated UTI. Keep mean artery pressure over 65. Continue on midodrine 5 mg 3 times daily. Hold off on antihypertensives. Given history of severe congestive heart failure hold off on any further fluids for now. Holding off on diuretics. (2) Complicated UTI (urinary tract infection): With chronic left-sided ureterolithiasis, left-sided nephrostomy. Follow-up with urine culture. Repeat urine culture as well from left nephrostomy. On review of culture results from past patient has history of Enterococcus UTI. Continue with IV ceftriaxone and vancomycin for now. Will de-escalate as per culture results. (3) GERRI (acute kidney injury): In setting of septic shock along with complicated UTI. Baseline creatinine 1.1. Currently 1.4. Medical reconciliation done for nephrotoxic drugs. Hold off on Entresto for now. Monitor electrolytes and BMP daily. Monitor urine output. (4) Nephrostomy status: (5) CHF (congestive heart failure): Last echocardiogram from October 2022 shows an EF of 20-25%. Nonischemic cardiomyopathy. No signs of fluid overload for now. Monitor fluid status. Hold off on Entresto, spironolactone, carvedilol for now. Continue with home dose of aspirin Qualifiers: Heart failure chronicity: chronic Heart failure type: diastolic Qualified Code(s): I50.32 - Chronic diastolic (congestive) heart failure (6) Abdominal pain: Most likely in setting of complicated UTI. Patient does have history of liver mass in the past. Appreciate CT abdomen pelvis. No acute abnormality noted concerning for abdominal pain. IV Protonix, Zofran as needed. Check lactate. No concerns for bowel ischemia for now. IV Dilaudid 0.4 mg every 6 hours as needed along with [place] 5 mg every 8 hourly as needed. (7) Liver mass: Seen on the CT scan done on 12/26. Could be malignant neoplasm. Will need to follow-up as an outpatient for possible liver biopsy. (8) Renal atrophy, left: Plan Restart chronic home medication including Celexa 40 mg, gabapentin 100 mg 3 times daily, zolpidem nightly. Add Xanax 0.5 every 8 hours as needed. Analgesia: Dilaudid 0.4 every 6 hours as needed, [place] 5 mg every 8 hourly as needed Glycemic control: Not needed. Check A1c. Nutrition: Cardiac CODE STATUS: Full code PUD prophylaxis: Protonix DVT prophylaxis: Heparin 5000 every 12 hourly. Discharge planning: Home with caregiver once medically stable. Transfer out of ICU to CSU. This documentation was created by [employer] noodle catalyst maker software. Every effort was made to ensure accuracy of noodle catalyst maker. Any obvious errors or omissions should be clarified with the author of the document. Attestations Medical Necessity Statement*: Requires further hospitalization for management of sepsis in setting of possible complicated UTI in a patient with left renal nephrostomy, abdominal pain while patient continues to have poor oral intake. Diagnoses Septic shock A41.9; R65.21 Complicated UTI (urinary tract infection) N39.0 GERRI (acute kidney injury) N17.9 Nephrostomy status Z93.6 CHF (congestive heart failure) I50.32 Heart failure chronicity: chronic Heart failure type: diastolic Abdominal pain R10.9 Liver mass R16.0 Renal atrophy, left N26.1
[2022-12-31 18:29] LABS: Troponin 5 2HR 12.89 ng/L (0-10)
[2022-12-31 18:30] LABS: Troponin 5 2HR Delta -2.11 ABS# (0-10)
[2022-12-31] MEDS: zolpidem 5 mg Tablet 10 MG PO (20:20)
[2022-12-31] MEDS: cefTRIAXone 1,000 MG in sodium chloride 0.9% (plus) 50 ML 100 MG IV (20:20)
[2022-12-31 21:00] LABS: Basophils # 0.1 10^3/uL (0.0-0.1); Basophils % 0.7 %; Eosinophils # 0.1 10^3/uL (0.0-0.8); Eosinophils % 1.3 %; Hematocrit 32.9 % (37.0-47.0); Hemoglobin 10.5 g/dL (11.5-15.3); Lymphocytes % 13.8 %; Mean Corpuscular HGB Conc 31.9 g/dL (30.0-36.0); Mean Corpuscular Volume 106.5 fl (81-99); Mean Platelet Volume 11.7 fL (7.4-10.4); Monocytes # 0.5 10^3/uL (0.2-0.9); Monocytes % 7.5 %; Neutrophils # 5.46 10^3/uL (1.8-7.7); Neutrophils % 76.3 %; Nucleated Red Blood Cells % 0 %; Platelet Count 147 10^3/cmm (130-400); Red Blood Count 3.09 10^6/uL (4.1-5.3); Red Cell Distribution Width 15.2 % (12.1-15.1); White Blood Count 7.2 10^3/uL (4.0-10.0)
[2022-12-31 21:19] LABS: Troponin 5 6HR 13.36 ng/L (0-10)
[2022-12-31 21:22] LABS: Lactic Sepsis W/Reflex 1.5 mmol/L (0.5-2.2); Troponin 5 6HR Delta -1.64 ng/L (0-12)
--- NOTE | 2022-12-31 23:21 | ECG_ITS ---
[facility] Test Date: 2022-12-31 Pat Name: Elena Pulliam Department: Room: ICU02 Gender: Female [employer] R[employer] Developer: : [id number] Requested By: Deonte Massey Order Number: [id number] Arlette MD: Pola Ferrera M.D. Measurements Intervals [place] Rate: 82 P: 41 NM: 162 QRS: -44 QRSD: 145 T: 80 QT: 358 QTc: 419 Interpretive Statements SINUS RHYTHM LEFT AXIS DEVIATION [QRS AXIS < -30] LEFT BUNDLE BRANCH BLOCK [120+ ms QRS DURATION, 80+ ms Q/S IN V1/V2, 85+ ms R IN I/aVL/V5/V6] Compared to ECG 12/31/2022 16:20:52 No significant changes Electronically Signed On 01-01-2023 7:19:11 CDT by Pola Ferrera M.D. [email or web address] [email or web address].[employer]/store/[id number]
[2023-01-01] VITALS (17 sets, daily range): BP systolic 106–127; BP diastolic 67–87; PULSE 78–88; RESP 15–24; TEMP 36.2–36.9; O2SAT 89–98; BMI 26.2
[2023-01-01] MEDS: HYDROcodone-acetaminophen 5-325 mg Tablet 1 TAB PO ×2 (01:00→20:46)
[2023-01-01 03:26] LABS: Basophils # 0.1 10^3/uL (0.0-0.1); Basophils % 1.1 %; Eosinophils # 0.1 10^3/uL (0.0-0.8); Eosinophils % 1.6 %; Hematocrit 32.3 % (37.0-47.0); Lymphocytes # 1.1 10^3/uL (0.8-4.8); Mean Corpuscular Hemoglobin 33.4 pg (28.0-34.0); Mean Platelet Volume 12.1 fL (7.4-10.4); Monocytes # 0.5 10^3/uL (0.2-0.9); Monocytes % 7.9 %; Neutrophils # 3.99 10^3/uL (1.8-7.7); Nucleated Red Blood Cells % 0 %; Platelet Count 126 10^3/cmm (130-400); Red Blood Count 2.99 10^6/uL (4.1-5.3); Red Cell Distribution Width 15.3 % (12.1-15.1); White Blood Count 5.7 10^3/uL (4.0-10.0)
[2023-01-01 03:42] LABS: Alanine Aminotransferase 63 U/L (0-33); Albumin Level 3.3 g/dL (3.5-5.2); Alkaline Phosphatase 78 U/L (35-105); Anion Gap 17.2 (5-19); Aspartate Amino Transferase 55 U/L (0-32); Blood Urea Nitrogen 15 mg/dL (6-20); Calcium 8.3 mg/dL (8.5-10.5); Carbon Dioxide 18 mmol/L (22-29); Chloride 109 mmol/L (98-107); Globulin 2.2 g/dL (1.3-4.6); Glomerular Filtration Rate 47.2 mL/min (90-130); Glucose 81 mg/dL (65-115); Osmolality Calculated 292 mOsm/kg (285-295); Potassium 3.2 mmol/L (3.5-5.1); Sodium 141 mmol/L (136-145); Total Bilirubin 0.5 mg/dL (0.15-1.2); Total Protein 5.5 g/dL (6.6-8.7)
[2023-01-01 07:09] LABS: Estmated Average Glucose 77; Hemoglobin A1C 4.3 % (4.0-6.0)
[2023-01-01] MEDS: pantoprazole 40 mg SDV IVP ×2 (07:57→20:46)
[2023-01-01] MEDS: HYDROmorphone 1 mg/mL INJ 1 mL 0.4 MG IVP (07:57)
[2023-01-01] MEDS: sodium bicarbonate 650 mg Tablet PO ×3 (09:24→20:46)
[2023-01-01] MEDS: midodrine 5 mg TABLET PO ×3 (09:24→20:47)
[2023-01-01] MEDS: gabapentin 100 mg Capsule PO ×3 (09:24→20:47)
[2023-01-01] MEDS: heparin 5,000 unit/mL INJ 1 mL 5000 UNIT SUBCUT ×2 (10:48→22:18)
[2023-01-01] MEDS: potassium chloride oral liq 20 mEq/15 mL UDC 40 MEQ PO (10:48)
[2023-01-01] MEDS: ondansetron 2 mg/ML SDV 2 mL 4 MG IVP (12:14)
--- NOTE | 2023-01-01 12:45 | PC.NURSE ---
received into room 105 from icu at 1145.report received.sr on monitor.oriented to room environment.instructed to notify staff for any pain,nausea,or for any concerns at all.pt verb understanding of instructions
--- NOTE | 2023-01-01 14:47 | PC.NURSE ---
left flank nephrostomy drsg changed...cleansed with ns.dry split 2x2 gauze applied and secured with biocclusive.very slightly red at insertion site.sutures intact.
--- NOTE | 2023-01-01 15:34 | PM.PN ---
Subjective Subjective: No acute events overnight. Patient denies any nausea, vomiting, headache. States feeling better. Abdominal pain is better. Appetite is still poor but improving. Has remained hemodynamically stable and afebrile. Today she states she has been having multiple episodes of soft bowel movement for last 3 days. Nurses not aware of the same. Vitals/I&O/Wt Last Vital Signs Temp 98.4 F 01/01/23 12:00 Pulse 84 01/01/23 12:00 Resp 15 01/01/23 12:00 BP 120/81 01/01/23 12:00 Pulse Ox 96 01/01/23 12:00 O2 Del Method 01/01/23 12:00 O2 Flow Rate 2 12/30/22 04:00 01/01/23 01/01/23 01/01/23 06:59 14:59 22:59 Intake Total 250 / 1654 240 / 240 Output Total 200 / 300 Balance 50 / 1354 240 / 240 Weight last 48 hrs Weight 71.5 kg Weight 72.847 kg Physical Exam Const: COMMON NORMALS: patient oriented x3 and alert GENERAL APPEARANCE: cooperative ORIENTATION/CONSCIOUSNESS: Yes awake HENMT: COMMON NORMALS: oropharynx normal Neck/C-Spine: COMMON NORMALS: no JVD Resp: COMMON NORMALS: normal respiratory effort and clear to auscultation bilaterally AUSCULTATION: clear to auscultation bilaterally Cardio: COMMON NORMALS: no JVD, regular rhythm, S1 normal heart sound present, S2 normal heart sound present and No murmurs present (Cardio) RHYTHM: regular rhythm HEART SOUNDS: S1 normal heart sound present and S2 normal heart sound present GI: COMMON NORMALS: Normal to inspection, nondistended, normoactive bowel sounds present and Soft to palpation PALPATION: Yes Soft to palpation and Yes Tenderness to palpation present (GI) Extremity: COMMON NORMALS: no joint enlargement and no pedal edema Neuro: COMMON NORMALS: patient oriented x3 and moves all extremities SENSORIUM/ORIENTATION: Yes alert Skin: COMMON NORMALS: no rashes or lesions noted GENERAL SKIN EXAM: no rashes or lesions noted Data 01/01/23 02:06 01/01/23 02:06 Micro: Microbiology 01/01/23 13:10 Stool Lactoferrin - Final Stool Occult Blood (FIT) - Final 12/29/22 20:58 Urine Culture - Final Urine,Clean Catch 12/30/22 10:30 Urine Culture - Final Urine Kidney A&P Assessment and plan (1) Septic shock: Resolved. Levophed weaned off. In setting of complicated UTI. Keep mean artery pressure over 65. Continue on midodrine 5 mg 3 times daily. Hold off on antihypertensives and other heart failure medications. Given history of severe congestive heart failure hold off on any further fluids for now. Holding off on diuretics. (2) Complicated UTI (urinary tract infection): With chronic left-sided ureterolithiasis, left-sided nephrostomy. Appreciate repeat CT abdomen pelvis. Urine culture both direct and from left nephrostomy appreciated. On review of culture results from past patient has history of Enterococcus UTI. Continue with IV ceftriaxone and vancomycin for now. Will de-escalate as per culture results. If urine culture and blood cultures remain benign we will plan to finish the course of antibiotics for 5 days. (3) GERRI (acute kidney injury): In setting of septic shock along with complicated UTI. Baseline creatinine 1.1. Resolving. Trending down. Continue with oral sodium bicarbonate for now. Medical reconciliation done for nephrotoxic drugs. Hold off on Entresto for now. Monitor electrolytes and BMP daily. Low urine output. Continue to monitor urine output. Replace potassium with 40 mEq. Most likely in setting of diarrhea. (4) Nephrostomy status: (5) CHF (congestive heart failure): Last echocardiogram from October 2022 shows an EF of 20-25%. Nonischemic cardiomyopathy. No signs of fluid overload for now. Monitor fluid status. Hold off on Entresto, spironolactone, carvedilol for now. Continue with home dose of aspirin Qualifiers: Heart failure type: diastolic Heart failure chronicity: chronic Qualified Code(s): I50.32 - Chronic diastolic (congestive) heart failure (6) Abdominal pain: Most likely in setting of complicated UTI. Patient does have history of liver mass in the past. Appreciate CT abdomen pelvis. No acute abnormality noted concerning for abdominal pain. IV Protonix, Zofran as needed. Lactic acid negative. No concerns for bowel ischemia for now. IV Dilaudid 0.4 mg every 6 hours as needed along with [place] 5 mg every 8 hourly as needed. (7) Liver mass: Seen on the CT scan done on 12/26. Could be malignant neoplasm. Will need to follow-up as an outpatient for possible liver biopsy. (8) Renal atrophy, left: (9) Diarrhea: Check stool studies. Hold off on fluids for now given history of cardiomyopathy. Continue to monitor. Plan Restart chronic home medication including Celexa 40 mg, gabapentin 100 mg 3 times daily, zolpidem nightly. Add Xanax 0.5 every 8 hours as needed. Analgesia: Dilaudid 0.4 every 6 hours as needed, [place] 5 mg every 8 hourly as needed Glycemic control: Not needed. A1c 4.3. Nutrition: Cardiac CODE STATUS: Full code PUD prophylaxis: Protonix DVT prophylaxis: Heparin 5000 every 12 hourly. Discharge planning: Home with caregiver once medically stable. Transfer to CSU. This documentation was created by [employer] colorist dyer software. Every effort was made to ensure accuracy of colorist dyer. Any obvious errors or omissions should be clarified with the author of the document. Attestations Medical Necessity Statement*: Requires further hospitalization for management of shock in setting of complicated UTI in a patient with history of ischemic cardiomyopathy with EF of 20% and left-sided nephrostomy secondary to urinary stone Diagnoses Septic shock A41.9; R65.21 Complicated UTI (urinary tract infection) N39.0 GERRI (acute kidney injury) N17.9 Nephrostomy status Z93.6 CHF (congestive heart failure) I50.32 Heart failure type: diastolic Heart failure chronicity: chronic Abdominal pain R10.9 Liver mass R16.0 Renal atrophy, left N26.1 Diarrhea R19.7
[2023-01-01] MEDS: ALPRAZolam 0.5 mg Tablet PO (16:06)
[2023-01-01] MEDS: HYDROmorphone 1 mg/mL INJ 1 mL 0.2 MG IVP ×2 (16:06→22:12)
[2023-01-01] MEDS: citalopram 20 mg Tablet 40 MG PO (18:08)
[2023-01-01] MEDS: zolpidem 5 mg Tablet 10 MG PO (22:12)
[2023-01-02] VITALS: BP 115/70; PULSE 77; RESP 20; O2SAT 97
[2023-01-02 04:04] VITALS: BP 117/68; PULSE 76; RESP 16; TEMP 36.4; O2SAT 95
[2023-01-02 04:06] LABS: Basophils % 0.9 %; Eosinophils # 0.2 10^3/uL (0.0-0.8); Eosinophils % 3.8 %; Hematocrit 30.9 % (37.0-47.0); Hemoglobin 9.7 g/dL (11.5-15.3); Lymphocytes # 1.4 10^3/uL (0.8-4.8); Lymphocytes % 30.3 %; Mean Corpuscular HGB Conc 31.4 g/dL (30.0-36.0); Mean Corpuscular Hemoglobin 33.8 pg (28.0-34.0); Mean Corpuscular Volume 107.7 fl (81-99); Mean Platelet Volume 12.1 fL (7.4-10.4); Monocytes # 0.4 10^3/uL (0.2-0.9); Neutrophils # 2.49 10^3/uL (1.8-7.7); Neutrophils % 55.8 %; Nucleated Red Blood Cells % 0 %; Platelet Count 112 10^3/cmm (130-400); Red Blood Count 2.87 10^6/uL (4.1-5.3); Red Cell Distribution Width 15.7 % (12.1-15.1); White Blood Count 4.5 10^3/uL (4.0-10.0)
[2023-01-02 04:33] LABS: Alanine Aminotransferase 71 U/L (0-33); Albumin Level 3.3 g/dL (3.5-5.2); Alkaline Phosphatase 75 U/L (35-105); Anion Gap 15.1 (5-19); Aspartate Amino Transferase 47 U/L (0-32); Blood Urea Nitrogen 11 mg/dL (6-20); Calcium 8.4 mg/dL (8.5-10.5); Carbon Dioxide 20 mmol/L (22-29); Chloride 111 mmol/L (98-107); Glomerular Filtration Rate 47.2 mL/min (90-130); Glucose 76 mg/dL (65-115); Osmolality Calculated 294 mOsm/kg (285-295); Potassium 3.1 mmol/L (3.5-5.1); Sodium 143 mmol/L (136-145); Total Bilirubin 0.5 mg/dL (0.15-1.2); Total Protein 5.3 g/dL (6.6-8.7)
[2023-01-02 05:32] VITALS: PULSE 77
[2023-01-02 08:00] VITALS: BP 111/72; PULSE 87; RESP 19; TEMP 37.2; O2SAT 95
--- NOTE | 2023-01-02 09:06 | P.DS_ITS ---
Discharge Providers Date of Admission: 12/30/22 10:38 Date of Discharge: January 02, 2023 Attending Provider at Admission: Rony Benitez Attending Provider at Discharge: Deonte Massey MD Primary Care Provider: Mavis Peterson Diagnoses at Discharge Discharge Diagnosis (1) Septic shock: Status: Acute (2) Complicated UTI (urinary tract infection): Status: Acute (3) GERRI (acute kidney injury): Status: Acute (4) Nephrostomy status: Status: Acute (5) CHF (congestive heart failure): Status: Acute Qualifiers: Heart failure chronicity: chronic Heart failure type: diastolic Qualified Code(s): I50.32 - Chronic diastolic (congestive) heart failure (6) Abdominal pain: Status: Acute (7) Liver mass: Status: Acute (8) Renal atrophy, left: Status: Acute (9) Diarrhea: Status: Acute Reason for Visit Reason for Visit: ABD PAIN Brief History: History as per HPI: 52-year-old lady with obstructive urolithiasis on the left, not amenable to extraction of stones, status post nephrostomy on the left, recently assessed in ER due to abdominal pain, found to have urinary tract infection was started on ciprofloxacin, at that time CT imaging showing a properly positioned nephrostomy, no hydronephrosis, 2 stones proximal mid left ureter measuring 4 and 7 mm.? Nonobstructive right nephrolithiasis.? Suspect that pulmonary interstitial edema.? Cardiac enlargement.? 4.6 cm right lobe liver mass stable since 09/30/2022.? Nonspecific.? Possible malignant neoplasm.? Consider biopsy. She presented to ED due to abdominal pain, right lower quadrant, going on for the last day.? In ER found to have low-grade fever 100.4 Fahrenheit. She states that she has been emptying urine from the left nephrostomy. She says that she has been having cough.? Nausea, some dry heaves.? Has had very poor oral intake/appetite. In ER UA with suggestion of UTI with positive nitrate, 5-10 WBC, 5-10 SEC.? 0.4 hyaline cast, 1+ mucus.? 1+ bacteria. Creatinine same as during prior visit 1.4. She states she has not yet pursued any biopsy for liver mass, it slipped her mind with how busy she got with following up to [place] with her kidneys and other issues. Hospital Course Hospital Course Patient was admitted to the ICU for further evaluation and management of septic shock in setting of complicated UTI because of left sided nephrostomy in place. She was started on broad-spectrum antibiotics. During hospitalization her blood cultures and urine culture remain negative. Patient was weaned off vasopressors. Patient did experience episodes of diarrhea during hospitalization. Her home dose of antihypertensives and diuretics were withheld and she was given gentle IV hydration. Patient hospitalized remained unremarkable and her blood pressures remained stable. It is believed her symptoms of shock on admission was mostly in setting of possible gastroenteritis. Stool studies remain negative. She has been discharged in hemodynamically stable condition back home with advice to hold off on her antihypertensives including Coreg, Entresto and spironolactone for next 1 week to 10 days. She is also advised to take midodrine 5 mg twice daily as needed for systolic blood pressure of less than 100 mmHg. She is advised once her blood pressures are more than 120 systolics of midodrine she should start her antihypertensives with Coreg being the first 1. She is to check her blood pressures daily and maintain a diary and follow-up with a primary care provider within next 1 week. Home health is being arranged for regular medication and blood pressure checks. She is to have repeat BMP with a primary care provider within next 1 week and should have a liver biopsy done as an outpatient within next 1 month for concerns of liver mass. Physical Exam Const: COMMON NORMALS: patient oriented x3 and alert GENERAL APPEARANCE: cooperative ORIENTATION/CONSCIOUSNESS: Yes awake HENMT: COMMON NORMALS: oropharynx normal Neck/C-Spine: COMMON NORMALS: no JVD Resp: COMMON NORMALS: normal respiratory effort and clear to auscultation bilaterally AUSCULTATION: clear to auscultation bilaterally Cardio: COMMON NORMALS: no JVD, regular rhythm, S1 normal heart sound present, S2 normal heart sound present and No murmurs present (Cardio) RHYTHM: regular rhythm HEART SOUNDS: S1 normal heart sound present and S2 normal heart sound present GI: COMMON NORMALS: Normal to inspection, nondistended, normoactive bowel sounds present and Soft to palpation PALPATION: Yes Soft to palpation and Yes Tenderness to palpation present (GI) Extremity: COMMON NORMALS: no joint enlargement and no pedal edema Neuro: COMMON NORMALS: patient oriented x3 and moves all extremities SENSORIUM/ORIENTATION: Yes alert Skin: COMMON NORMALS: no rashes or lesions noted GENERAL SKIN EXAM: no rashes or lesions noted Discharge Data Studies Completed and Pending Completed Studies During Hospitalization Category Date Time Status CT abdomen pelvis wo con [id number] Routine Cat Scan 12/30/22 10:33 Completed CXRP [XR chest 1V portable [id number]] Routine Exams 12/29/22 23:52 Completed Pending at discharge Category Date Time Status Blood Culture Stat Lab 12/29/22 20:29 Results Clostridioides Difficile PCR Routine Lab 01/01/23 13:10 Results Complete Blood Count w/Auto AM LABS Lab 01/03/23 04:00 Ordered Complete Blood Count w/Auto AM LABS Lab 01/04/23 04:00 Ordered Comprehensive Metabolic Panel AM LABS Lab 01/03/23 04:00 Ordered Comprehensive Metabolic Panel AM LABS Lab 01/04/23 04:00 Ordered Enteric Bacterial Panel by PCR Routine Lab 01/01/23 13:10 Results Enteric Parasite Panel by PCR Routine Lab 01/01/23 13:10 Results Immunochemical Fecal OCB Routine Lab 01/01/23 13:10 Results Lactoferrin Routine Lab 01/01/23 13:10 Results Radiology Impressions Chest X-Ray 12/29/22 23:52 IMPRESSION: Mild perihilar infiltrates versus pulmonary vascular congestion. Correlate for pulmonary infection. Abdomen/Pelvis CT 12/30/22 10:33 IMPRESSION: 1. Developing small pleural effusions 2 stones in the proximal to mid left ureter measuring 4 mm and 7 mm. Left kidney decompressed by nephrostomy tube. 3. Nonobstructive right nephrolithiasis. 4. Suspect pulmonary interstitial edema. 5. Cardiac enlargement. 6. 4.6 cm right lobe liver mass, stable since 09/30/2022. Nonspecific. Possible malignant neoplasm. Recommend correlation with more remote prior imaging (not available currently). Consider PET/CT or biopsy if not previously performed. 7. Low volume ascites not present on the prior study. Laboratory Results WBC 4.5 10^3/uL (4.0-10.0) 01/02/23 03:24 Corrected WBC Cancelled 12/31/22 04:35 RBC 2.87 10^6/uL (4.1-5.3) L 01/02/23 03:24 Hgb 9.7 g/dL (11.5-15.3) L 01/02/23 03:24 Hct 30.9 % (37.0-47.0) L 01/02/23 03:24 MCV 107.7 fl (81-99) H 01/02/23 03:24 MCH 33.8 pg (28.0-34.0) 01/02/23 03:24 MCHC 31.4 g/dL (30.0-36.0) 01/02/23 03:24 RDW 15.7 % (12.1-15.1) H 01/02/23 03:24 Plt Count 112 10^3/cmm (130-400) L 01/02/23 03:24 MPV 12.1 fL (7.4-10.4) H 01/02/23 03:24 Gran % Cancelled 12/31/22 04:35 Neut % (Auto) 55.8 % 01/02/23 03:24 Lymph % (Auto) 30.3 % 01/02/23 03:24 [place] % (Auto) 9.0 % 01/02/23 03:24 Eos % (Auto) 3.8 % 01/02/23 03:24 Baso % (Auto) 0.9 % 01/02/23 03:24 Neut # (Auto) 2.49 10^3/uL (1.8-7.7) 01/02/23 03:24 Lymph # (Auto) 1.4 10^3/uL (0.8-4.8) 01/02/23 03:24 [place] # (Auto) 0.4 10^3/uL (0.2-0.9) 01/02/23 03:24 Eos # (Auto) 0.2 10^3/uL (0.0-0.8) 01/02/23 03:24 Baso # (Auto) 0.0 10^3/uL (0.0-0.1) 01/02/23 03:24 Absolute Gran (auto) Cancelled 12/31/22 04:35 Nucleated RBC % (auto) 0 % 01/02/23 03:24 Nucleated RBCs # 0.0 /100WBC 01/02/23 03:24 Sodium 143 mmol/L (136-145) 01/02/23 03:24 Potassium 3.1 mmol/L (3.5-5.1) L 01/02/23 03:24 Chloride 111 mmol/L (98-107) H 01/02/23 03:24 Carbon Dioxide 20 mmol/L (22-29) L 01/02/23 03:24 Anion Gap 15.1 (5-19) 01/02/23 03:24 BUN 11 mg/dL (6-20) 01/02/23 03:24 Creatinine 1.2 mg/dL (0.5-0.9) H 01/02/23 03:24 GFR Calculation 47.2 mL/min (90-130) L 01/02/23 03:24 Glucose 76 mg/dL (65-115) 01/02/23 03:24 Estimat Average Glucose 77 01/01/23 02:06 Hemoglobin A1c 4.3 % (4.0-6.0) 01/01/23 02:06 Calculated Osmolality 294 mOsm/kg (285-295) 01/02/23 03:24 Lactic Acid 1.5 mmol/L (0.5-2.2) 12/31/22 20:46 Lactate 2.3 mmol/L (0.5-2.2) H 12/29/22 20:23 Calcium 8.4 mg/dL (8.5-10.5) L 01/02/23 03:24 Iron 65 ug/dL (37-145) 12/30/22 04:58 TIBC 237 mcg/dl 12/30/22 04:58 % Saturation 27.4 % (20-50) 12/30/22 04:58 Unsat Iron Binding 172 ug/dL (112-347) 12/30/22 04:58 Total Bilirubin 0.5 mg/dL (0.15-1.2) 01/02/23 03:24 AST 47 U/L (0-32) H 01/02/23 03:24 ALT 71 U/L (0-33) H 01/02/23 03:24 Alkaline Phosphatase 75 U/L (35-105) 01/02/23 03:24 Troponin T Baseline 15 ng/L (0-10) H 12/31/22 14:40 Troponin T 120 Minute 12.89 ng/L (0-10) H 12/31/22 17:11 Delta Troponin T -2.11 ABS# (0-10) L 12/31/22 17:11 Troponin T Hi Sens 6Hr 13.36 ng/L (0-10) H 12/31/22 20:46 Troponin T Hi Sens 6Hr Delta -1.64 ng/L (0-12) L 12/31/22 20:46 Total Protein 5.3 g/dL (6.6-8.7) L 01/02/23 03:24 Albumin 3.3 g/dL (3.5-5.2) L 01/02/23 03:24 Globulin 2.0 g/dL (1.3-4.6) 01/02/23 03:24 Triglycerides 132 mg/dL (0-150) 12/31/22 04:35 Cholesterol 107 mg/dL (0-200) 12/31/22 04:35 LDL Cholesterol, Calc 61 mg/dL (50-129) 12/31/22 04:35 Total VLDL Cholesterol 26 mg/dL (0-30) 12/31/22 04:35 HDL Cholesterol 20 mg/dL (60-100) L 12/31/22 04:35 Cholesterol/HDL Ratio 5.35 mg/dL (0.0-4.40) H 12/31/22 04:35 Lipase 19 U/L (13-60) 12/29/22 20:09 Vitamin B12 1895 pg/mL (232-1245) H 12/30/22 04:58 Folate 4.8 ng/mL (4.8-37.3) 12/30/22 04:58 Procalcitonin 0.09 ng/mL (0-0.5) 12/30/22 04:58 TSH Cancelled 12/30/22 04:58 Urine Color Red (Yellow) 12/29/22 20:58 Urine Appearance Clear (CLEAR) 12/29/22 20:58 Urine pH 5 (5-7) 12/29/22 20:58 Ur Specific [place] 1.030 (1.005-1.030) 12/29/22 20:58 Urine Protein 3+ (Negative) H 12/29/22 20:58 Urine Glucose (UA) Norm (Normal) 12/29/22 20:58 Urine Ketones 1+ (Negative) H 12/29/22 20:58 Urine Blood Neg (Negative) 12/29/22 20:58 Urine Nitrate Positive (Negative) H 12/29/22 20:58 Urine Bilirubin 2+ (Negative) H 12/29/22 20:58 Urine Urobilinogen 12 mg/dL (Negative) H 12/29/22 20:58 Ur Leukocyte Esterase Negative (Negative) 12/29/22 20:58 Urine RBC 0-4 /hpf (0-2) H 12/29/22 20:58 Urine WBC 5-10 /hpf (0-5) H 12/29/22 20:58 Ur Squamous Epith Cells 5-10 /hpf (0-5) H 12/29/22 20:58 Amorphous Sediment Not Reportable 12/29/22 20:58 Urine Bacteria 1+ /hpf (NONE) H 12/29/22 20:58 Hyaline Casts 0-4 /lpf H 12/29/22 20:58 Urine Mucus 1+ /hpf 12/29/22 20:58 Coronavirus 229E (PCR) Not detected (NOT DETECT) 12/30/22 01:30 SARS-CoV-2 (PCR) Not detected (NOT DETECT) 12/30/22 01:30 Vitals Last Vital Signs Temp 97.5 F L 01/02/23 04:04 Pulse 77 01/02/23 05:32 Resp 16 01/02/23 04:04 BP 117/68 01/02/23 04:04 Pulse Ox 95 01/02/23 04:04 O2 Del Method 01/02/23 04:04 O2 Flow Rate 2 12/30/22 04:00 Discharge Plan Discharge Patient Disposition: Home Health Service Condition: Stable Prescriptions: New midodrine 5 mg Tablet 5 mg PO BID PRN (Reason: Sbp less than 100) Qty: 20 0RF sodium bicarbonate 650 mg Tablet 650 mg PO TID Qty: 30 0RF Continued citalopram [Celexa] 40 mg tablet 40 mg PO QPM zolpidem 10 mg tablet 10 mg PO BEDTIME aspirin [Adult Low Dose Aspirin] 81 mg tablet,delayed release (DR/EC) 162 mg PO QAM Hold Instructions: Resume on 10/19/22. Until after percutaneous tube placed in the left kidney Vitamin B-12 50 mcg Tablet 50 mcg PO QAM montelukast 10 mg tablet 10 mg PO QAM gabapentin 100 mg capsule 100 mg PO TID magnesium 200 mg tablet 200 mg PO DAILY Qty: 30 1RF potassium chloride 10 mEq tablet extended release 10 meq PO DAILY Qty: 30 1RF Rx Instructions: Only take with Lasix phenazopyridine [Pyridium] 200 mg tablet 200 mg PO TID Qty: 6 0RF capsaicin 0.025 % Cream 1 applic topical QID PRN (Reason: Pain) Qty: 60 0RF acetaminophen 500 mg Tablet 1,000 mg PO Q6H PRN (Reason: Pain) omeprazole 20 mg capsule,delayed release(DR/EC) 20 mg PO BID nitroglycerin [Nitrostat] 0.4 mg Tablet, Sublingual 0.4 mg SUBLINGUAL Q5M PRN (Reason: Chest Pain) Rx Instructions: do not exceed 3 doses per episode albuterol sulfate 90 mcg/actuation HFA aerosol inhaler 2 puff INHALATION QID PRN (Reason: Shortness Of Breath) Held carvedilol 6.25 mg tablet 6.25 mg PO BID Qty: 180 2RF Hold Instructions: Resume on 01/12/23. Rx Instructions: must administer with a meal/food spironolactone 25 mg tablet 25 mg PO DAILY Qty: 30 3RF Hold Instructions: Resume on 01/11/23. furosemide [Lasix] 40 mg tablet 40 mg PO BID Qty: 6 0RF Hold Instructions: Resume on 01/09/23. Entresto 97-103 mg tablet 1 tab PO BID Hold Instructions: Resume on 01/11/23. Discontinued ciprofloxacin HCl [Cipro] 500 mg tablet 500 mg PO Q12H Qty: 14 0RF Discharge Orders: Discharge Order (Routine); Ordered 01/02/23 Ordered By: Deonte Massey Referrals: Mavis Peterson PA [Primary Care Provider] - 01/12/23 10:50 am (Please follow-up with Mavis Peterson on January 12 at 10:50A.M. If you have any questions or need to reschedule. Please call ) Discharge Diet: Cardiac Discharge Activity: Resume usual activity and Increase activity as tolerated Patient Instructions: Diarrhea - Adult, Heart Failure (DC), Acute Kidney Injury (DC), CHF Stoplight, Opioid Safety Activity Restrictions/Additional Instructions: Hold your bp meds including coreg, entresto, spirinolactone for now. Check your BP daily and mantain a BP diary and follow up with your PCP within ne xt 1 week for adjustment of meds. Take Midodrine which is to increase your blood pressure twice daily as needed if your blood pressure drops below 100 systolic. If your blood pressure is more than 120 mmhg without midodrine you can start your bp meds one by one. Start taking Coreg first monitor blood pressures are better. If your blood pressures remain stable and over 120 even after taking Coreg for next 3 days start taking Entresto and spironolactone. Please repeat your BMP with your primary care provider when you follow-up next week. Please get liver biopsy done for further evaluation of the liver mass within next 1 month. Discharge Attestations Time Spent in Discharge Care*: greater than 30 min Specific Discharge Activities: educating patient, discussing with pcp/other providers, discussing with case management social worker/social workers/dc planners, documenting/other paperwork and evaluating patient/reviewing data Status at Discharge: Cognitive status at discharge: cognitively intact , Behavioral status at discharge: cooperative , Functional status at discharge: independent ambulation , Overall status at discharge: patient is progressing back to baseline Quality Metrics Clinical Quality Measures [ No reported AMI, CVA or VTE this stay] Coding Level of Care Code 11795 Total time (in minutes) for Discharge: 60 Diagnoses Septic shock A41.9; R65.21 Complicated UTI (urinary tract infection) N39.0 GERRI (acute kidney injury) N17.9 Nephrostomy status Z93.6 CHF (congestive heart failure) I50.32 Heart failure chronicity: chronic Heart failure type: diastolic Abdominal pain R10.9 Liver mass R16.0 Renal atrophy, left N26.1 Diarrhea R19.7
[2023-01-02] MEDS: pantoprazole 40 mg SDV IVP (09:20)
[2023-01-02] MEDS: sodium bicarbonate 650 mg Tablet PO (09:21)
[2023-01-02] MEDS: midodrine 5 mg TABLET PO (09:21)
[2023-01-02] MEDS: gabapentin 100 mg Capsule PO (09:21)
[2023-01-02] MEDS: potassium chloride ER 20 mEq Tablet 40 MEQ PO ×2 (09:33→10:45)
[2023-01-02 10:36] VITALS: BP 124/85; RESP 18
--- NOTE | 2023-01-02 10:47 | PC.NURSE ---
IV removed and site covered. SO and patient education provided. patient re-educated about specific indications for held medication and PRN medication. red light CHF gone through and SO and patient verbalized understanding. No further questions for staff. patient escorted via wheelchair by staff to vehicle.
--- NOTE | 2023-01-02 11:51 | PC.SOCIAL ---
IMM Update pg 2 of IMM updated and reviewed w/ patient prior to DC. Copy provided and Copy in chart dated, and initialed.
== END 2023-01-02 10:48 | disposition home health service (06) | DRG 871 ==
LOC: ER 22:31 → MEDSURG 22:38 → ICU 12-30 04:38 → CSU 01-01 12:07
PROVIDERS: Admitting Provider Internal Medicine; Emergency Provider Emergency Medicine; PCP Physician Assistant; Visit Provider Student in an Organized Health Care Education/Training Program
DX: A41.9 Sepsis, unspecified organism (principal); R65.21 Severe sepsis with septic shock; T83.510A Infection and inflammatory reaction due to cystostomy catheter, initial encounter; I13.0 Hypertensive heart and chronic kidney disease with heart failure and stage 1 through stage 4 chronic kidney disease, or unspecified chronic kidney disease; I50.32 Chronic diastolic (congestive) heart failure; N20.2 Calculus of kidney with calculus of ureter; I42.8 Other cardiomyopathies; N17.9 Acute kidney failure, unspecified; Y73.8 Miscellaneous gastroenterology and urology devices associated with adverse incidents, not elsewhere classified; K52.9 Noninfective gastroenteritis and colitis, unspecified; Z79.82 Long term (current) use of aspirin; Z79.51 Long term (current) use of inhaled steroids; N18.9 Chronic kidney disease, unspecified; R16.0 Hepatomegaly, not elsewhere classified; Z86.73 Personal history of transient ischemic attack (TIA), and cerebral infarction without residual deficits; Z95.810 Presence of automatic (implantable) cardiac defibrillator; F17.210 Nicotine dependence, cigarettes, uncomplicated; Z96.0 Presence of urogenital implants; Z93.6 Other artificial openings of urinary tract status; I95.9 Hypotension, unspecified
CPT/HCPCS: 36415; 36600; 71045; 71275; 74018; 74176; 80048; 80053; 80061; 81001; 82274; 82607; 82746; 82803; 83036; 83540; 83550; 83605; 83630; 83690; 83735; 83880; 84145; 84484; 85025; 85378; 86140; 87040; 87086; 87426; 87486; 87493; 87506; 87581; 87633; 87635; 87804; 93005; 94640; 94664; 94760; 96365; 96372; 96374; 96375; 96376; 99284; 99285; C9113; G0378; J0696; J1170; J1644; J1940; J2270; J2405; J3370; J7030; J7050; J7060; J7613; P9046; Q9967

== ENCOUNTER 2023-01-02 19:36 | Inpatient (IN) | payer MEDICARE, MEDICAID, SELFPAY ==
[2023-01-02] VITALS (11 sets, daily range): BP systolic 107–142; BP diastolic 69–112; PULSE 89–110; RESP 16–34; TEMP 36.4–36.6; O2SAT 91–100; BMI 26.6; BMI 27.3
--- NOTE | 2023-01-02 19:39 | XRR_ITS ---
PROCEDURE INFORMATION: Exam: XR Chest Exam date and time: 01/02/2023 8:55 PM Age: 52 years old Clinical indication: Shortness of breath; Prior surgery; Surgery date: 6+ months; Surgery type: Port; Additional info: SOB TECHNIQUE: Imaging protocol: Radiologic exam of the chest. Views: 1 view. COMPARISON: CR (CHEST, ) 12/29/2022 11:31 PM FINDINGS: Tubes, catheters and devices: There is transvenous AICD in place with leads in appropriate position. Lungs: There is mild pulmonary venous congestion. No acute infiltrate is identified. Pleural spaces: Unremarkable. No pleural effusion. No pneumothorax. Heart/Mediastinum: The heart is mildly enlarged. Bones/joints: Unremarkable. XR/XR chest 1V portable [id number] IMPRESSION: Mild congestive failure.
--- NOTE | 2023-01-02 19:51 | ECG_ITS ---
[facility] Test Date: 2023-01-02 Pat Name: Elena Pulliam Department: Room: 279 Gender: Female [employer] Rep[employer]r: : 1970 Requested By: Marc Mora Order Number: [id number] Arlette MD: Michael Hill M.D. Measurements Intervals [place] Rate: 112 P: 86 AZ: 153 QRS: 229 QRSD: 129 T: 82 QT: 389 QTc: 532 Interpretive Statements SINUS TACHYCARDIA ANTEROLATERAL MYOCARDIAL INFARCTION , OF INDETERMINATE AGE [40+ ms Q WAVE IN I/aVL/V3-V6] Left anterior fascicular block Compared to ECG 12/31/2022 23:21:25 Myocardial infarct finding now present Sinus rhythm no longer present Left-axis deviation no longer present Left bundle-branch block no longer present Electronically Signed On 01-04-2023 0:21:27 CDT by Michael Hill M.D. [id number]
--- NOTE | 2023-01-02 20:05 | W.ED.CHESTPA ---
HPI - Chest Pain General: Chief Complaint: Chest Pain Stated Complaint: SOB, chest pressure Time Seen by Provider: 01/02/23 19:39 Source: patient and EMS Mode of arrival: EMS Limitations: no limitations History of Present Illness: 52-year-old female who had recently been admitted here for sepsis along with UTI she got discharged morning states been doing well and hour ago started having severe shortness of breath along with cough and some chest pain she is dyspneic here requiring oxygen as well states been coughing up some sputum denies any fevers her pains are sharp pain in the center of her chest. Associated symptoms: Reports dyspnea; Deny abdominal pain, fever(s), nausea or vomiting Review of Systems Const: Denies: fever(s), chills, body aches or change in appetite Eyes: Denies: blurry vision or eye discomfort ENMT: Denies: throat pain or dental pain Card: Reports: chest pain Resp: Reports: dyspnea GI: Denies: abdominal pain, nausea, vomiting or diarrhea : Denies: dysuria Musc: Denies: neck pain or back pain Skin/Breast: Denies: rash Neuro: Denies: headache(s) Psych: Denies: depression Cedric/Lymph: Denies: easy bruising All/Imm: Denies: urticaria PFSH ED PFSH: Medical History Acute hypokalemia AICD discharge Chest pain CHF (congestive heart failure) CKD (chronic kidney disease) Closed intertrochanteric fracture of left hip History of recurrent UTIs History of TIA (transient ischemic attack) HTN (hypertension) Hydronephrosis, left Hypertension Hypokalemia Hypokalemia ICD (implantable cardioverter-defibrillator) in place Liver mass Mass of right lobe of liver ~3.5 x 4 cm, indeterminant, hypodense, first noted 11/2021 Nicotine dependence, cigarettes, uncomplicated Non-ischemic cardiomyopathy Nonischemic cardiomyopathy Specific etiology unknown, may have been viral or related to uncontrolled hypertension from her recollection Echocardiogram November 2021 with ejection fraction of 42% - 05/17/22 echo EF now 25% Obstructive pyelonephritis (~11/2021) Renal atrophy, left Syncope Urolithiasis Multi stone former. Complicated by at least 1 episode of obstructive pyelonephritis. Multiple procedures required to treat Ventricular tachycardia Surgical History Nephrostomy status S/P ureteral stent placement (~11/2021) Status post cholecystectomy Status post placement of cardiac pacemaker Family History Father , AT AGE 77 CAD (coronary artery disease) Cancer lung cancer Mother , AT AGE 60 Cancer OVARIAN Denies family history of Clotting disorder Anesthesia complication Bleeding disorder Social History Smoking and tobacco status: current every day smoker cigarettes Packs smoked per day: 0.5 Years cigarettes smoked: 45 Second hand smoke exposure: Yes Alcohol intake: current Lives independently: Yes Marital status: service: No Current occupational status: disabled Current gender identity: Female Physical Exam Const: COMMON NORMALS: patient oriented x3 GENERAL APPEARANCE: in distress and ill appearing HENMT: COMMON NORMALS: normocephalic and atraumatic HEAD & SCALP: normocephalic and atraumatic Eye: COMMON NORMALS: Equal, round and reactive pupils present and EOMs intact bilaterally PUPIL: Yes Equal, round and reactive pupils present Neck/C-Spine: COMMON NORMALS: full ROM and supple Chest: COMMONS NORMALS: normal inspection of the chest and normal palpation of entire chest wall Resp: COMMON NORMALS: No retractions and No use of accessory muscles EFFORT & INSPECTION: Yes respiratory distress AUSCULTATION: wheezes Cardio: COMMON NORMALS: regular rhythm and No murmurs present (Cardio) RATE: tachycardic RHYTHM: regular rhythm GI: COMMON NORMALS: Normal to inspection, nondistended, normoactive bowel sounds present, Soft to palpation, non-tender and no masses PALPATION: Yes Soft to palpation Extremity: COMMON NORMALS: normal to inspection and full ROM Neuro: COMMON NORMALS: patient oriented x3, moves all extremities and no focal motor deficits Psych: COMMON NORMALS: mental status grossly normal, Normal thought process present and cooperative THOUGHT PROCESS: Normal thought process present Skin: COMMON NORMALS: no rashes or lesions noted and no wounds GENERAL SKIN EXAM: no rashes or lesions noted Course Vital Signs: Vital signs: Vital Signs Temperature 97.6 F 01/02/23 19:37 Pulse Rate 102 H 01/02/23 22:00 Respiratory Rate 16 01/02/23 22:00 Blood Pressure 126/78 01/02/23 22:00 Pulse Oximetry 92 01/02/23 22:00 Oxygen Delivery Me thod 01/02/23 21:27 Oxygen Flow Rate 2 01/02/23 21:27 MDM - Chest Pain Medical Decision Making Patient presents for CHF exacerbation she does have an elevated BNP at her baseline CT shows pulmonary congestion as well she is requiring 2 to 3 L of oxygen here she is not typically on oxygen spoke to hospitalist will admit for diuresis. Lab Data 01/02/23 20:00 01/02/23 20:00 Radiology Impressions Chest X-Ray 01/02/23 19:39 IMPRESSION: Mild congestive failure. Chest CTA 01/02/23 20:57 IMPRESSION: 1. Congestive failure with bilateral pleural effusions. 2. No evidence of pulmonary embolism. Laboratory Results WBC 7.4 10^3/uL (4.0-10.0) 01/02/23 20:00 RBC 3.31 10^6/uL (4.1-5.3) L 01/02/23 20:00 Hgb 11.3 g/dL (11.5-15.3) L 01/02/23 20:00 Hct 36.1 % (37.0-47.0) L 01/02/23 20:00 MCV 109.1 fl (81-99) H 01/02/23 20:00 MCH 34.1 pg (28.0-34.0) H 01/02/23 20:00 MCHC 31.3 g/dL (30.0-36.0) 01/02/23 20:00 RDW 16.3 % (12.1-15.1) H 01/02/23 20:00 Plt Count 149 10^3/cmm (130-400) D 01/02/23 20:00 MPV 11.6 fL (7.4-10.4) H 01/02/23 20:00 Neut % (Auto) 63.9 % 01/02/23 20:00 Lymph % (Auto) 25.7 % 01/02/23 20:00 [place] % (Auto) 7.0 % 01/02/23 20:00 Eos % (Auto) 2.0 % 01/02/23 20:00 Baso % (Auto) 0.7 % 01/02/23 20:00 Neut # (Auto) 4.75 10^3/uL (1.8-7.7) 01/02/23 20:00 Lymph # (Auto) 1.9 10^3/uL (0.8-4.8) 01/02/23 20:00 [place] # (Auto) 0.5 10^3/uL (0.2-0.9) 01/02/23 20:00 Eos # (Auto) 0.2 10^3/uL (0.0-0.8) 01/02/23 20:00 Baso # (Auto) 0.1 10^3/uL (0.0-0.1) 01/02/23 20:00 Nucleated RBC % (auto) 0 % 01/02/23 20:00 Nucleated RBCs # 0.0 /100WBC 01/02/23 20:00 D-Dimer 2.30 ug/mIFEU (0-0.59) H 01/02/23 19:40 Specimen Type Arterial 01/02/23 20:40 Sample Site Radial, right 01/02/23 20:40 ABG pH 7.40 (7.35-7.45) 01/02/23 20:40 ABG pCO2 28.0 mmHg (35-45) L 01/02/23 20:40 ABG pO2 117.0 mmHg (80.0-100.0) H 01/02/23 20:40 ABG HCO3 17.5 mmol/L (22-26) L 01/02/23 20:40 ABG Base Excess -6.2 mmol/L (-2.0-2.0) L 01/02/23 20:40 Michi Test Pos 01/02/23 20:40 Hematocrit 32.1 % (37-47) L 01/02/23 20:40 O2 Delivery Device Nc 01/02/23 20:40 O2 Liters/Min 2.0 % 01/02/23 20:40 Sales Forecast Analyst ID Yolanda 01/02/23 20:40 Sodium 141 mmol/L (136-145) 01/02/23 20:00 Potassium 3.7 mmol/L (3.5-5.1) 01/02/23 20:00 Chloride 109 mmol/L (98-107) H 01/02/23 20:00 Carbon Dioxide 18 mmol/L (22-29) L 01/02/23 20:00 Anion Gap 17.7 (5-19) 01/02/23 20:00 BUN 10 mg/dL (6-20) 01/02/23 20:00 Creatinine 1.0 mg/dL (0.5-0.9) H 01/02/23 20:00 GFR Calculation 58.2 mL/min (90-130) L 01/02/23 20:00 Glucose 96 mg/dL (65-115) 01/02/23 20:00 Calculated Osmolality 291 mOsm/kg (285-295) 01/02/23 20:00 Calcium 8.2 mg/dL (8.5-10.5) L 01/02/23 20:00 Total Bilirubin 0.4 mg/dL (0.15-1.2) 01/02/23 20:00 AST 43 U/L (0-32) H 01/02/23 20:00 ALT 82 U/L (0-33) H 01/02/23 20:00 Alkaline Phosphatase 93 U/L (35-105) 01/02/23 20:00 Troponin T Baseline 21 ng/L (0-10) H 01/02/23 20:00 Troponin T 120 Minute 22.52 ng/L (0-10) H 01/02/23 21:42 Delta Troponin T 1.52 ABS# (0-10) 01/02/23 21:42 NT-Pro-B Natriuret Pep 72677 pg/mL (0-125) H 01/02/23 20:00 Total Protein 6.3 g/dL (6.6-8.7) L 01/02/23 20:00 Albumin 3.9 g/dL (3.5-5.2) 01/02/23 20:00 Globulin 2.4 g/dL (1.3-4.6) 01/02/23 20:00 Influenza Type A Ag negative (Negative) 01/02/23 20:40 Influenza Type B Ag negative (Negative) 01/02/23 20:40 SARS-CoV-2 Ag (Rapid) negative (Negative) 01/02/23 20:40 EKG Data EKG 1: I personally reviewed and interpreted this EKG as follows: EKG interpretation date: 01/02/23 EKG interpretation time: 19:51 Interpretation: sinus tach hr [address] or t wave abnormalities qrs 129 qtc 455 Discharge Plan Discharge Patient Disposition: Admitted As Inpatient Clinical Impression: CHF (congestive heart failure) Condition: Stable Prescriptions: No Action citalopram [Celexa] 40 mg tablet 40 mg PO QPM zolpidem 10 mg tablet 10 mg PO BEDTIME aspirin [Adult Low Dose Aspirin] 81 mg tablet,delayed release (DR/EC) 162 mg PO QAM Hold Instructions: Resume on 10/19/22. Until after percutaneous tube placed in the left kidney carvedilol 6.25 mg tablet 6.25 mg PO BID Qty: 180 2RF Hold Instructions: Resume on 01/12/23. Rx Instructions: must administer with a meal/food Vitamin B-12 50 mcg Tablet 50 mcg PO QAM montelukast 10 mg tablet 10 mg PO QAM gabapentin 100 mg capsule 100 mg PO TID magnesium 200 mg tablet 200 mg PO DAILY Qty: 30 1RF potassium chloride 10 mEq tablet extended release 10 meq PO DAILY Qty: 30 1RF Rx Instructions: Only take with Lasix spironolactone 25 mg tablet 25 mg PO DAILY Qty: 30 3RF Hold Instructions: Resume on 01/11/23. phenazopyridine [Pyridium] 200 mg tablet 200 mg PO TID Qty: 6 0RF capsaicin 0.025 % Cream 1 applic topical QID PRN (Reason: Pain) Qty: 60 0RF acetaminophen 500 mg Tablet 1,000 mg PO Q6H PRN (Reason: Pain) omeprazole 20 mg capsule,delayed release(DR/EC) 20 mg PO BID nitroglycerin [Nitrostat] 0.4 mg Tablet, Sublingual 0.4 mg SUBLINGUAL Q5M PRN (Reason: Chest Pain) Rx Instructions: do not exceed 3 doses per episode albuterol sulfate 90 mcg/actuation HFA aerosol inhaler 2 puff INHALATION QID PRN (Reason: Shortness Of Breath) furosemide [Lasix] 40 mg tablet 40 mg PO BID Qty: 6 0RF Hold Instructions: Resume on 01/09/23. Entresto 97-103 mg tablet 1 tab PO BID Hold Instructions: Resume on 01/11/23. midodrine 5 mg Tablet 5 mg PO BID PRN (Reason: Sbp less than 100) Qty: 20 0RF sodium bicarbonate 650 mg Tablet 650 mg PO TID Qty: 30 0RF Referrals: Mavis Peterson PA [Primary Care Provider] - Coding Level of Care Code ED Sweat Band Separator for Chg Javier
[2023-01-02 20:13] LABS: Basophils # 0.1 10^3/uL (0.0-0.1); Basophils % 0.7 %; Eosinophils # 0.2 10^3/uL (0.0-0.8); Hematocrit 36.1 % (37.0-47.0); Hemoglobin 11.3 g/dL (11.5-15.3); Lymphocytes # 1.9 10^3/uL (0.8-4.8); Lymphocytes % 25.7 %; Mean Corpuscular HGB Conc 31.3 g/dL (30.0-36.0); Mean Corpuscular Hemoglobin 34.1 pg (28.0-34.0); Mean Corpuscular Volume 109.1 fl (81-99); Mean Platelet Volume 11.6 fL (7.4-10.4); Monocytes # 0.5 10^3/uL (0.2-0.9); Neutrophils # 4.75 10^3/uL (1.8-7.7); Neutrophils % 63.9 %; Nucleated Red Blood Cells % 0 %; Platelet Count 149 10^3/cmm (130-400); Red Blood Count 3.31 10^6/uL (4.1-5.3); Red Cell Distribution Width 16.3 % (12.1-15.1); White Blood Count 7.4 10^3/uL (4.0-10.0)
[2023-01-02 20:28] LABS: Troponin(5th) Baseline 21 ng/L (0-10)
[2023-01-02] MEDS: albuterol 2.5 mg/3 mL Neb INHALATION (20:34)
[2023-01-02 20:37] LABS: Alanine Aminotransferase 82 U/L (0-33); Albumin Level 3.9 g/dL (3.5-5.2); Alkaline Phosphatase 93 U/L (35-105); Anion Gap 17.7 (5-19); Aspartate Amino Transferase 43 U/L (0-32); Blood Urea Nitrogen 10 mg/dL (6-20); Calcium 8.2 mg/dL (8.5-10.5); Carbon Dioxide 18 mmol/L (22-29); Chloride 109 mmol/L (98-107); Globulin 2.4 g/dL (1.3-4.6); Glomerular Filtration Rate 58.2 mL/min (90-130); Glucose 96 mg/dL (65-115); NT Pro B Type Natriuretic Pept 21476 pg/mL (0-125); Osmolality Calculated 291 mOsm/kg (285-295); Potassium 3.7 mmol/L (3.5-5.1); Sodium 141 mmol/L (136-145); Total Bilirubin 0.4 mg/dL (0.15-1.2); Total Protein 6.3 g/dL (6.6-8.7)
[2023-01-02] MEDS: morphine 4 mg/mL SDV 1 mL IVP (20:39)
[2023-01-02] MEDS: ondansetron 2 mg/ML SDV 2 mL 4 MG IVP (20:40)
[2023-01-02 20:45] LABS: Arterial Blood Gas Hematocrit 32.1 % (37-47); Base Excess ABG -6.2 mmol/L (-2.0-2.0); Blood Gas Allen Test Pos; Blood Gas Sample Site Radial, right; Blood Gas Sample Type Arterial; HCO3 ABG 17.5 mmol/L (22-26); Oxygen Device NC
--- NOTE | 2023-01-02 20:57 | CTR_ITS ---
PROCEDURE INFORMATION: Exam: CTA Chest With Contrast Exam date and time: 01/02/2023 9:13 PM Age: 52 years old Clinical indication: Shortness of breath; Prior surgery; Surgery date: 6+ months; Surgery type: Pacemaker; Additional info: SOB TECHNIQUE: Imaging protocol: Computed tomographic angiography of the chest with contrast. 3D rendering (Not supervised by radiologist): MIP and/or 3D reconstructed images were created by the technologist. Radiation optimization: All CT scans at this facility use at least one of these dose optimization techniques: automated exposure control; mA and/or kV adjustment per patient size (includes targeted exams where dose is matched to clinical indication); or iterative reconstruction. Contrast material: OMNI 350; Contrast volume: 100 ml; Contrast route: INTRAVENOUS (IV); REPORTING DATA: Count of CT and Cardiac NM exams in prior 12 months: This patient has received 13 known CTs and 0 known cardiac nuclear medicine studies in the 12 months prior to the current study. COMPARISON: CT angio chest PE protcl [id number] 09/29/2022 5:02 PM RADIATION DOSE METRICS: Total DLP (mGy-cm): 856 FINDINGS: Tubes, catheters and devices: There is transvenous AICD in place with leads in appropriate position. Pulmonary arteries: There is no evidence of filling defects within the pulmonary arterial circulation to suggest pulmonary embolism. Aorta: No gross abnormality seen in the thoracic aorta which is unchanged from previous. Lungs: There is calcified granuloma in the right lower lobe. There is moderate interlobular septal thickening. There is mild diffuse ground-glass haziness in the dependent portions of both lungs which may represent some mild interstitial edema. Pleural spaces: There are small bilateral pleural effusions. Heart: There is very small pericardial effusion. The heart is moderately enlarged. Left ventricular and left atrial enlargement not significantly changed. Coronary arteries: There is severe atherosclerotic calcification of the coronary arteries. Lymph nodes: There are calcified hilar and mediastinal lymph nodes in keeping with old granulomatous disease. There is no evidence of lymphadenopathy. Bones/joints: Unremarkable. No acute fracture. There has been additional healing of old left rib fractures. Soft tissues: Unremarkable. CT/CT angio chest PE protcl [id number] IMPRESSION: 1. Congestive failure with bilateral pleural effusions. 2. No evidence of pulmonary embolism.
[2023-01-02 21:05] LABS: Influenza A by IFA negative (Negative); Influenza B by IFA negative (Negative); SARS Covid-2 Antigen negative (Negative)
[2023-01-02] MEDS: iohexol 350 mg/mL 500 mL Btl (per mL) IV (21:19)
[2023-01-02] MEDS: FUROsemide 10 mg/mL SDV 10mL 60 MG IVP (21:31)
[2023-01-02] MEDS: HYDROmorphone 1 mg/mL INJ 1 mL IVP (21:42)
--- NOTE | 2023-01-02 21:42 | ECG_ITS ---
[facility] Test Date: 2023-01-02 Pat Name: Elena Pulliam Department: Room: Gender: Female Documentation Manager: : 1970 Requested By: Marc Mora Order Number: [id number] Arlette MD: Michael Hill M.D. Measurements Intervals [place] Rate: 100 P: 67 [place]: 148 QRS: -45 QRSD: 138 T: 116 QT: 421 QTc: 543 Interpretive Statements SINUS TACHYCARDIA LEFT AXIS DEVIATION [QRS AXIS < -30] INTRAVENTRICULAR CONDUCTION DELAY [130+ ms QRS DURATION] POSSIBLE ANTERIOR MYOCARDIAL INFARCTION , OF INDETERMINATE AGE [30 ms Q WAVE IN V3/V4, OR R < 0.2 mV IN V4] Compared to ECG 12/31/2022 23:21:25 Intraventricular conduction delay now present Myocardial infarct finding now present Sinus rhythm no longer present Left bundle-branch block no longer present Electronically Signed On 01-04-2023 0:41:33 CDT by Michael Hill M.D. [id number]
[2023-01-02 22:11] LABS: Troponin 5 2HR 22.52 ng/L (0-10)
[2023-01-02 22:12] LABS: Troponin 5 2HR Delta 1.52 ABS# (0-10)
--- NOTE | 2023-01-02 22:33 | P.HP_ITS ---
Providers/Chief Complaint Primary Care Provider: Mavis Peterson Chief Complaint: SOB, chest pressure History of Present Illness Elena Pulliam is a 52 year old female with past medical history of CHF with reduced ejection fraction, CKD, recurrent UTI, TIA, hypertension, mass and liver, obstructive pyelonephritis, urolithiasis, nonischemic cardiomyopathy, nephrostomy tubes presented to the hospital today with complaint of shortness of breath requiring oxygen and coughing up clear sputum. She also had some sharp pain in the center of her chest which has resolved by now. She was discharged earlier today in hemodynamically stable condition and advised to hold off on her antihypertensives including Coreg, Entresto, spironolactone for next 1 week to 10 days. She was also advised to take midodrine 5 mg twice daily for systolic blood pressure of less than 100. Home health was being arranged for regular medication and blood pressure checks. She follows at [facility] for her nephrostomy tube management. She was also advised to have liver biopsy done as an outpatient within 1 month for concerns of liver mass. At previous admission she was managed for sepsis. ED course: Blood pressure 126/78, respirate 16, pulse 102, temperature 97.6, on 2 L nasal cannula at this time. BNP elevated. CT chest shows pulmonary congestion. D-dimer 2.30. CTA ruled out PE. Patient given Lasix 40 IV x1 and admitted. Medications/Allergies Home Medications Medication Instructions Recorded Confirmed Last Taken Type citalopram 40 mg tablet (Celexa) 40 mg PO QPM 01/31/20 12/30/22 11/15/22 History zolpidem 10 mg tablet 10 mg PO BEDTIME 01/31/20 12/30/22 11/15/22 History aspirin 81 mg tablet,delayed 162 mg PO QAM 01/20/21 12/30/22 11/16/22 History release (Adult Low Dose Aspirin) cyanocobalamin (vitamin B-12) 50 50 mcg PO QAM 11/30/21 12/30/22 11/16/22 History mcg tablet (Vitamin B-12) montelukast 10 mg tablet 10 mg PO QAM 11/30/21 12/30/22 11/16/22 History capsaicin 0.025 % topical cream 1 applic topical QID PRN Pain #60 10/02/22 12/30/22 Unknown Rx grams acetaminophen 500 mg tablet 1,000 mg PO Q6H PRN Pain 10/26/22 12/30/22 Unknown History omeprazole 20 mg capsule,delayed 20 mg PO BID 10/26/22 12/30/22 11/16/22 History release carvedilol 6.25 mg tablet 6.25 mg PO BID #180 tabs 10/28/22 12/30/22 11/16/22 Rx albuterol sulfate 90 mcg/actuation 2 puff inhalation QID PRN 11/10/22 12/30/22 Unknown History aerosol inhaler Shortness Of Breath nitroglycerin 0.4 mg sublingual 0.4 mg sublingual Q5M PRN Chest 11/10/22 12/30/22 Unknown History tablet (Nitrostat) Pain gabapentin 100 mg capsule 100 mg PO TID 12/07/22 12/30/22 1 Week Ago History ~11/30/22 see pharmacy comment magnesium 200 mg tablet 200 mg PO DAILY #30 tabs 12/08/22 12/30/22 Unknown Rx potassium chloride 10 mEq 10 meq PO DAILY #30 tabs 12/08/22 12/30/22 Unknown Rx tablet,extended release spironolactone 25 mg tablet 25 mg PO DAILY #30 tabs 12/08/22 12/30/22 Unknown Rx furosemide 40 mg tablet (Lasix) 40 mg PO BID #6 tabs 12/24/22 12/30/22 Unknown Rx phenazopyridine 200 mg tablet 200 mg PO TID 6 doses #6 tabs 12/26/22 12/30/22 Unknown Rx (Pyridium) sacubitril 97 mg-valsartan 103 mg 1 tab PO BID 12/30/22 12/30/22 Unknown History tablet (Entresto) midodrine 5 mg tablet 5 mg PO BID PRN Sbp less than 100 01/02/23 Unknown Rx #20 tabs sodium bicarbonate 650 mg tablet 650 mg PO TID #30 tabs 01/02/23 Unknown Rx Allergies Allergy/AdvReac Type Severity Reaction Status Date / Time egg Allergy unknown Verified 12/30/22 08:30 PFSH Acute PFSH: Medical History Acute hypokalemia AICD discharge Chest pain CHF (congestive heart failure) CKD (chronic kidney disease) Closed intertrochanteric fracture of left hip History of recurrent UTIs History of TIA (transient ischemic attack) HTN (hypertension) Hydronephrosis, left Hypertension Hypokalemia Hypokalemia ICD (implantable cardioverter-defibrillator) in place Liver mass Mass of right lobe of liver ~3.5 x 4 cm, indeterminant, hypodense, first noted 11/2021 Nicotine dependence, cigarettes, uncomplicated Non-ischemic cardiomyopathy Nonischemic cardiomyopathy Specific etiology unknown, may have been viral or related to uncontrolled hypertension from her recollection Echocardiogram November 2021 with ejection fraction of 42% - 05/17/22 echo EF now 25% Obstructive pyelonephritis (~11/2021) Renal atrophy, left Syncope Urolithiasis Multi stone former. Complicated by at least 1 episode of obstructive pyelonephritis. Multiple procedures required to treat Ventricular tachycardia Surgical History Nephrostomy status S/P ureteral stent placement (~11/2021) Status post cholecystectomy Status post placement of cardiac pacemaker Family History Father , AT AGE 77 CAD (coronary artery disease) Cancer lung cancer Mother , AT AGE 60 Cancer OVARIAN Denies family history of Clotting disorder Anesthesia complication Bleeding disorder Social History Smoking and tobacco status: current every day smoker cigarettes Packs smoked per day: 0.5 Years cigarettes smoked: 45 Second hand smoke exposure: Yes Alcohol intake: current Lives independently: Yes Marital status: service: No Current occupational status: disabled Current gender identity: Female Vitals/I&O/Wt Last Vital Signs Temp 97.6 F 01/02/23 19:37 Pulse 102 H 01/02/23 22:00 Resp 16 01/02/23 22:00 BP 126/78 01/02/23 22:00 Pulse Ox 92 01/02/23 22:00 O2 Del Method 01/02/23 21:27 O2 Flow Rate 2 01/02/23 21:27 Weight last 48 hrs Weight 72.575 kg Physical Exam Narrative: General: Alert oriented x3, patient seen laying in bed on 2 L nasal cannula appearing comfortable at this time. HEENT: Normocephalic, atraumatic, EOMI, Cardio: Regular rate rhythm, normal S1-S2, Respiratory: Crackles bilaterally at bases. GI: Abdomen soft, nontender,bowel sounds + Behavior: Appropriate and cooperative Extremities: No edema bilateral lower extremities. Data 01/02/23 20:00 01/02/23 20:00 A&P Assessment and plan (1) CHF (congestive heart failure): (2) Nephrostomy status: (3) Liver mass: Plan #Acute on chronic systolic congestive heart failure #Liver mass #CKD #Acute hypoxia requiring supplemental oxygen #Other chronic conditions: Nephrostomy status, urolithiasis, recurrent UTIs, peripheral neuropathy, hypertension, CKD, nonischemic cardiomyopathy, CHF with reduced ejection fraction, AICD status ? Diuretics and antihypertensives were held at discharge. ? Restarted on Lasix 40 IV daily ? Continue midodrine 5 mg twice daily as needed for systolic BP less than 100 ? Hold spironolactone, potassium ? Hold Coreg, Entresto ? Continue aspirin, albuterol ? Continue citalopram ? Hold gabapentin ? Continue omeprazole ? Recheck labs in a.m. ? Chest x-ray reviewed personally by me which does show pulmonary vascular congestion and bilateral pleural effusions. -EKG did not show any evidence of acute ischemia. ? Influenza, COVID-negative ? BNP 21,000. Full code DVT prophylaxis: Heparin SQ twice daily Attestations Medical Necessity Statement*: Will cross greater than 2 midnight stay for management of CHF exacerbation Coding Level of Care Code 67365 Moderate MDM includes number and complexity of problems actively addressed during encounter, amount and/or complexity of data reviewed/ordered and described risk of complication, morbidity or mortality of management as d ocumented Diagnoses CHF (congestive heart failure) I50.9 Nephrostomy status Z93.6 Liver mass R16.0
[2023-01-03] VITALS (10 sets, daily range): BP systolic 109–125; BP diastolic 63–82; PULSE 82–93; RESP 16–22; TEMP 36.4–37.1; O2SAT 97–99
--- NOTE | 2023-01-03 00:40 | ECG_ITS ---
[facility] Test Date: 2023-01-03 Pat Name: Elena Pulliam Department: Room: 279 Gender: Female Chemical Worker: : 1970 Requested By: Marc Mora Order Number: [id number] Arlette MD: Michael Hill M.D. Measurements Intervals [place] Rate: 90 P: 49 FL: 153 QRS: -5 QRSD: 134 T: 29 QT: 428 QTc: 524 Interpretive Statements SINUS RHYTHM INTRAVENTRICULAR CONDUCTION DELAY [130+ ms QRS DURATION] POSSIBLE ANTERIOR MYOCARDIAL INFARCTION , OF INDETERMINATE AGE [30 ms Q WAVE IN V3/V4, OR R < 0.2 mV IN V4] Nonspecific T wave changes Compared to ECG 01/02/2023 21:42:19 Sinus tachycardia no longer present Left-axis deviation no longer present Myocardial infarct finding still present Electronically Signed On 01-04-2023 0:46:02 CDT by Michael Hill M.D. [id number]
[2023-01-03] MEDS: heparin 5,000 unit/mL INJ 1 mL 5000 UNIT SUBCUT ×3 (01:12→23:28)
[2023-01-03 01:52] LABS: Troponin 5 6HR 24.06 ng/L (0-10)
[2023-01-03 01:53] LABS: Troponin 5 6HR Delta 3.06 ng/L (0-12)
[2023-01-03] MEDS: morphine 4 mg/mL SDV 1 mL 2 MG IVP (02:29)
--- NOTE | 2023-01-03 02:40 | PC.NURSE ---
Paged Dr Mancilla twice and no call back. Sent message via [employer] about current patient c/o mid sternal chest pain that she was experiencing downstairs in the ED. Obtained EKG and updated Vital Signs- 109/75, HR-93, RR-22, O2 sat- 99% on 2LBNC. Called Dr Mancilla again and spoke with her. Updated Dr Mancilla that pts troponin 6 hr was 24.06. Pts baseline troponin was 21 and 120 mins later it was 22.52. Dr Mancilla stated she looked at EKG and did not see any difference from previous EKG. Pt is currently on ekg monitor at this time. New orders obtained at this time to give pt a GI cocktail and 2mg of morphine IVP.
[2023-01-03] MEDS: lidocaine 2% viscous 15 ML, aluminum-mag hydrox-simethicon 30 ML, sucralfate oral liq 1 GM PO (02:58)
[2023-01-03] MEDS: FUROsemide 10 mg/mL SDV 4mL 40 MG IVP (09:49)
[2023-01-03] MEDS: pantoprazole DR 40 mg Tablet PO (09:49)
[2023-01-03] MEDS: acetaminophen 325 mg Tablet 650 MG PO ×2 (10:02→20:18)
--- NOTE | 2023-01-03 10:45 | PC.CHAP ---
Pastoral Care Encounter/Spiritual Assessment Type of Contact [] Declined field sampling technician visit [] Patient/Family/Request visit [] Outpatient visit [] Follow-up visit [] Physician referral [] Code/Alert [x] Routine visit [] Staff referral [] Actively dying [] Patient sleeping [] Family support [] [] Out of room [] Palliative care [] [] Receiving care in room [] Pre-surgical visit [] Trauma [] Long length of stay [] ICU visit [] Other: Relational/Emotional Strength [x] Patient feels connected with others/family/visitors/staff [] Distress [] Loneliness/isolation [] Abandonment Spirituality of Patient [x] Person of Capri [] Attends Caodaism of their Acpri [x] Believes in Prayer [] Reads Bible or Tenriism materials [] There are Spiritual issues to be addressed Headlight Assembler Interventions [x] Prayer [] Active listening [] Non-anxious presence [x] Spiritual/emotional support [] Crisis/trauma care [] Spiritual counseling [] Bereavement support [] Provided bereavement packet [] Provided Bible/devotional materials [] Provided toy/stuffed animal, coloring book to patient or family member [] Provided Communion [] Anointing/[place] [] Salvation [x] Completed spiritual assessment [] Other: Impact on Illness or Injury [] Angry [] Fearful [] Anxious [] Often cries [] Exhaustion [] Unable to work [] Unable to attend jain [] Unable to walk/stand [] Unable to read [] Unable to drive [] Unable to eat/drink [] Unable to sleep [] Unable to be with family [] Patient intubated [] Other: Summary Time spent with patient 5 min
[2023-01-03] MEDS: ALPRAZolam 0.5 mg Tablet PO ×2 (12:24→20:21)
[2023-01-03] MEDS: citalopram 20 mg Tablet 40 MG PO (12:24)
--- NOTE | 2023-01-03 14:07 | P.PN_ITS ---
Subjective Subjective: Patient was discharged home yesterday after being treated for sepsis and hypotension secondary to UTI and gastroenteritis. On discharge she was not having any difficulty in breathing and was laying comfortably in bed on room air. Patient presented back to the ER last night because of difficulty in breathing. Patient states she was laying comfortably in bed at home and started having sudden difficulty in breathing because of which she presented to the ER along with retrosternal chest pains. Patient was given IV Lasix and Maalox. Today morning patient laying comfortably in bed again on room air. Denies any nausea, vomiting, headache. Complaining of occasional heartburn and retrosternal pains. Vitals/I&O/Wt Last Vital Signs Temp 98 F 01/03/23 08:00 Pulse 88 01/03/23 08:00 Resp 18 01/03/23 08:00 BP 125/82 01/03/23 08:00 Pulse Ox 98 01/03/23 08:00 O2 Del Method 01/03/23 02:00 O2 Flow Rate 2 01/03/23 08:00 Weight last 48 hrs Weight 74.389 kg Weight 72.575 kg Physical Exam Narrative: General: Alert oriented x3, patient seen laying in bed on 2 L nasal cannula appearing comfortable at this time. HEENT: Normocephalic, atraumatic, EOMI, Cardio: Regular rate rhythm, normal S1-S2, Respiratory: Crackles bilaterally at bases. GI: Abdomen soft, nontender,bowel sounds + Behavior: Appropriate and cooperative Extremities: No edema bilateral lower extremities. Data 01/02/23 20:00 01/02/23 20:00 A&P Assessment and plan (1) CHF (congestive heart failure): History of nonischemic cardiomyopathy. proBNP on admission elevated. Continue with IV Lasix 40 mg daily. Strict input output charting, daily weights. Watch hemodynamics. For now holding heart failure medications given very recent cardiogenic and septic shock. Midodrine 5 mg twice daily as needed. If blood pressures remain elevated of more than 120 of midodrine can plan to restart low-dose Coreg. (2) Nephrostomy status: (3) Liver mass: (4) Nonischemic cardiomyopathy: (5) GERD (gastroesophageal reflux disease): Plan Chest pain: Most likely in setting of mild heart failure versus GERD. Troponin cycled on admission negative. Continue with oral Protonix. Add Maalox 30 mg every 4 as needed. Add Carafate before meals and at bedtime. CT chest done on admission consistent with constipation as well. Start on daily milk of magnesia and senna twice daily Full code. Heparin 5000 every 12 hourly. Mechanical soft diet Attestations Medical Necessity Statement*: Requires further hospitalization for management of congestive heart failure in setting of nonischemic cardiomyopathy, recent septic shock, GERD Diagnoses CHF (congestive heart failure) I50.9 Nephrostomy status Z93.6 Liver mass R16.0 Nonischemic cardiomyopathy I42.8 GERD (gastroesophageal reflux disease) K21.9
[2023-01-03] MEDS: gabapentin 100 mg Capsule PO ×2 (14:51→20:16)
[2023-01-03] MEDS: magnesium hydroxide 30 mL UDC PO (14:51)
[2023-01-03] MEDS: sucralfate 1 gm/10 mL Oral Liq UDC PO ×2 (14:51→20:16)
[2023-01-03] MEDS: HYDROmorphone 1 mg/mL INJ 1 mL 0.2 MG IVP (17:47)
[2023-01-03] MEDS: sennosides-docusate Tablet 1 TAB PO (17:51)
[2023-01-04] VITALS (14 sets, daily range): BP systolic 100–114; BP diastolic 65–78; PULSE 78–97; RESP 14–18; TEMP 36.6–37; O2SAT 90–97
[2023-01-04] MEDS: HYDROmorphone 1 mg/mL INJ 1 mL 0.2 MG IVP ×4 (00:01→21:30)
--- NOTE | 2023-01-04 03:48 | PC.NURSE ---
patient had short run of v tach, asymptomatic, vs wnls. notified, no new orders recieved.
[2023-01-04 05:09] LABS: Basophils # 0.1 10^3/uL (0.0-0.1); Basophils % 0.9 %; Eosinophils # 0.2 10^3/uL (0.0-0.8); Hematocrit 31.8 % (37.0-47.0); Hemoglobin 10.1 g/dL (11.5-15.3); Lymphocytes # 1.9 10^3/uL (0.8-4.8); Lymphocytes % 34.1 %; Mean Corpuscular HGB Conc 31.8 g/dL (30.0-36.0); Mean Corpuscular Hemoglobin 33.8 pg (28.0-34.0); Mean Corpuscular Volume 106.4 fl (81-99); Mean Platelet Volume 11.4 fL (7.4-10.4); Monocytes # 0.3 10^3/uL (0.2-0.9); Monocytes % 6.2 %; Neutrophils # 2.96 10^3/uL (1.8-7.7); Neutrophils % 54.3 %; Nucleated Red Blood Cells % 0 %; Platelet Count 124 10^3/cmm (130-400); Red Blood Count 2.99 10^6/uL (4.1-5.3); Red Cell Distribution Width 16.1 % (12.1-15.1); White Blood Count 5.5 10^3/uL (4.0-10.0)
[2023-01-04 05:25] LABS: Alanine Aminotransferase 44 U/L (0-33); Albumin Level 3.5 g/dL (3.5-5.2); Alkaline Phosphatase 82 U/L (35-105); Anion Gap 12.2 (5-19); Aspartate Amino Transferase 18 U/L (0-32); Blood Urea Nitrogen 9 mg/dL (6-20); Calcium 8.5 mg/dL (8.5-10.5); Carbon Dioxide 28 mmol/L (22-29); Chloride 105 mmol/L (98-107); Globulin 2.1 g/dL (1.3-4.6); Glucose 95 mg/dL (65-115); Magnesium 1.9 mg/dL (1.7-2.3); Osmolality Calculated 292 mOsm/kg (285-295); Potassium 3.2 mmol/L (3.5-5.1); Sodium 142 mmol/L (136-145); Total Bilirubin 0.5 mg/dL (0.15-1.2); Total Protein 5.6 g/dL (6.6-8.7)
[2023-01-04] MEDS: aspirin 81 mg EC Tablet 162 MG PO (05:29)
[2023-01-04] MEDS: sucralfate 1 gm/10 mL Oral Liq UDC PO ×4 (06:03→21:31)
--- NOTE | 2023-01-04 08:00 | XR_ITS ---
WS: [id number] Exam: XR chest 1V portable [id number] Date/Time of Exam: 01/04/2023 7:48 AM Reason For Exam: f/u Comparison 01/02/2023. The lungs are fully expanded and clear. No pleural effusions. Mild cardiac enlargement. An ICD superi mposes the left chest. Regional bony elements are intact. The mediastinum is normal in contour. XR/XR chest 1V portable [id number] IMPRESSION: 1. Mild cardiac enlargement. No acute process noted.
[2023-01-04] MEDS: sennosides-docusate Tablet 1 TAB PO ×2 (08:53→17:33)
[2023-01-04] MEDS: magnesium hydroxide 30 mL UDC PO (08:53)
[2023-01-04] MEDS: gabapentin 100 mg Capsule PO ×3 (08:53→21:31)
[2023-01-04] MEDS: potassium chloride ER 20 mEq Tablet 40 MEQ PO (08:53)
[2023-01-04] MEDS: pantoprazole DR 40 mg Tablet PO (08:53)
[2023-01-04] MEDS: FUROsemide 10 mg/mL SDV 4mL 40 MG IVP (08:54)
--- NOTE | 2023-01-04 09:44 | PC.CHAP ---
Pastoral Care Encounter/Spiritual Assessment Type of Contact [] Declined warranty coordinator visit [] Patient/Family/Request visit [] Outpatient visit [] Follow-up visit [] Physician referral [] Code/Alert [x] Routine visit [] Staff referral [] Actively dying [] Patient sleeping [] Family support [] [] Out of room [] Palliative care [] [] Receiving care in room [] Pre-surgical visit [] Trauma [] Long length of stay [] ICU visit [] Other: Relational/Emotional Strength [x] Patient feels connected with others/family/visitors/staff [] Distress [] Loneliness/isolation [] Abandonment Spirituality of Patient [x] Person of Capri [] Attends Mosque of their Capri [x] Believes in Prayer [] Reads Bible or Catholic materials [] There are Spiritual issues to be addressed Taker Out Interventions [x] Prayer [] Active listening [] Non-anxious presence [] Spiritual/emotional support [] Crisis/trauma care [] Spiritual counseling [] Bereavement support [] Provided bereavement packet [] Provided Bible/devotional materials [] Provided toy/stuffed animal, coloring book to patient or family member [] Provided Communion [] Anointing/[place] [] Salvation [] Completed spiritual assessment [] Other: Impact on Illness or Injury [] Angry [] Fearful [] Anxious [] Often cries [] Exhaustion [] Unable to work [] Unable to attend temple [] Unable to walk/stand [] Unable to read [] Unable to drive [] Unable to eat/drink [] Unable to sleep [] Unable to be with family [] Patient intubated [] Other: Summary Time spent with patient 10
[2023-01-04] MEDS: albuterol 2.5 mg/3 mL Neb INHALATION (10:06)
[2023-01-04] MEDS: acetaminophen 325 mg Tablet 650 MG PO (12:39)
[2023-01-04] MEDS: heparin 5,000 unit/mL INJ 1 mL 5000 UNIT SUBCUT ×2 (12:39→23:48)
--- NOTE | 2023-01-04 16:10 | P.PN_ITS ---
Subjective Subjective: Patient was seen this morning, she tells me that she feels better, her shortness of breath has improved, however she is worried about going home too soon, just like the last time and she had to come right back to the hospital Vitals/I&O/Wt Last Vital Signs Temp 98.2 F 01/04/23 12:00 Pulse 90 01/04/23 12:00 Resp 18 01/04/23 15:27 BP 100/65 01/04/23 12:00 Pulse Ox 90 01/04/23 12:00 O2 Del Method 01/04/23 12:00 O2 Flow Rate 2 01/04/23 10:09 01/04/23 01/04/23 01/04/23 06:59 14:59 22:59 Intake Total 120 / 1240 600 / 600 Balance 120 / 1040 600 / 600 Weight last 48 hrs Weight 74.389 kg Weight 72.575 kg Physical Exam Const: COMMON NORMALS: no acute distress and patient oriented x3 Resp: COMMON NORMALS: normal respiratory effort, No retractions, No use of accessory muscles and clear to auscultation bilaterally AUSCULTATION: clear to auscultation bilaterally Cardio: COMMON NORMALS: regular rate, regular rhythm, S1 normal heart sound present and S2 normal heart sound present RATE: regular rate RHYTHM: regular rhythm HEART SOUNDS: S1 normal heart sound present and S2 normal heart sound present GI: COMMON NORMALS: Normal to inspection, nondistended, normoactive bowel sounds present and non-tender Extremity: COMMON NORMALS: no pedal edema Neuro: COMMON NORMALS: patient oriented x3 Psych: COMMON NORMALS: mental status grossly normal Data 01/04/23 04:55 01/04/23 04:55 A&P Assessment and plan (1) CHF (congestive heart failure): History of nonischemic cardiomyopathy. proBNP on admission elevated. Continue with IV Lasix 40 mg daily. Strict input output charting, daily weights. For now holding heart failure medications given very recent cardiogenic and septic shock. Midodrine 5 mg twice daily as needed. If blood pressures remain elevated of more than 120 of midodrine can plan to restart low-dose Coreg. Potassium replacement therapy (2) Nephrostomy status: (3) Liver mass: (4) Nonischemic cardiomyopathy: (5) GERD (gastroesophageal reflux disease): Plan Chest pain: Most likely in setting of mild heart failure versus GERD. Troponin cycled on admission negative. Continue with oral Protonix. Add Maalox 30 mg every 4 as needed. Add Carafate before meals and at bedtime. CT chest done on admission consistent with constipation as well. Start on daily milk of magnesia and senna twice daily Full code. Heparin 5000 every 12 hourly. Mechanical soft diet Attestations Medical Necessity Statement*: Patient requires hospitalization for nonischemic cardiomyopathy systolic and diastolic CHF exacerbation Diagnoses CHF (congestive heart failure) I50.9 Nephrostomy status Z93.6 Liver mass R16.0 Nonischemic cardiomyopathy I42.8 GERD (gastroesophageal reflux disease) K21.9
[2023-01-04] MEDS: citalopram 20 mg Tablet 40 MG PO (17:33)
--- NOTE | 2023-01-04 21:10 | ECG_ITS ---
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 Measurements Intervals [place] Rate: 97 P: 56 OK: 156 QRS: -42 QRSD: 133 T: 106 QT: 423 QTc: 538 Interpretive Statements SINUS RHYTHM LEFT AXIS DEVIATION [QRS AXIS < -30] INTRAVENTRICULAR CONDUCTION DELAY [130+ ms QRS DURATION] POSSIBLE ANTERIOR MYOCARDIAL INFARCTION , OF INDETERMINATE AGE [30 ms Q WAVE IN V3/V4, OR R < 0.2 mV IN V4] Compared to ECG 01/03/2023 00:40:15 Left-axis deviation now present T-wave abnormality no longer present Myocardial infarct finding still present Electronically Signed On 01-04-2023 23:56:43 CDT by Michael Hill M.D. [email or web address]
[2023-01-04] MEDS: ALPRAZolam 0.5 mg Tablet PO (21:30)
[2023-01-04 22:43] LABS: Troponin T (5th) Once 46 ng/L (0-10)
[2023-01-05] VITALS (11 sets, daily range): BP systolic 110–122; BP diastolic 76–84; PULSE 69–105; RESP 12–22; TEMP 36.6–37.1; O2SAT 92–99
[2023-01-05 01:03] LABS: Basophils % 0.4 %; Eosinophils # 0.2 10^3/uL (0.0-0.8); Eosinophils % 2.4 %; Hematocrit 35.5 % (37.0-47.0); Hemoglobin 11.3 g/dL (11.5-15.3); Lymphocytes # 2.3 10^3/uL (0.8-4.8); Lymphocytes % 29.1 %; Mean Corpuscular HGB Conc 31.8 g/dL (30.0-36.0); Mean Corpuscular Hemoglobin 33.9 pg (28.0-34.0); Mean Corpuscular Volume 106.6 fl (81-99); Mean Platelet Volume 11.6 fL (7.4-10.4); Monocytes # 0.5 10^3/uL (0.2-0.9); Monocytes % 6.6 %; Neutrophils # 4.79 10^3/uL (1.8-7.7); Nucleated Red Blood Cells % 0 %; Platelet Count 145 10^3/cmm (130-400); Red Blood Count 3.33 10^6/uL (4.1-5.3); Red Cell Distribution Width 16.1 % (12.1-15.1); White Blood Count 7.9 10^3/uL (4.0-10.0)
[2023-01-05 01:26] LABS: Troponin T (5th) Once 48 ng/L (0-10)
[2023-01-05 01:35] LABS: Anion Gap 13.9 (5-19); Blood Urea Nitrogen 13 mg/dL (6-20); Calcium 9.2 mg/dL (8.5-10.5); Carbon Dioxide 30 mmol/L (22-29); Chloride 97 mmol/L (98-107); Glucose 88 mg/dL (65-115); Magnesium 2.2 mg/dL (1.7-2.3); NT Pro B Type Natriuretic Pept 15059 pg/mL (0-125); Osmolality Calculated 284 mOsm/kg (285-295); Potassium 3.9 mmol/L (3.5-5.1); Sodium 137 mmol/L (136-145)
[2023-01-05] MEDS: HYDROmorphone 1 mg/mL INJ 1 mL 0.2 MG IVP ×3 (04:09→17:09)
[2023-01-05] MEDS: aspirin 81 mg EC Tablet 162 MG PO (06:28)
[2023-01-05] MEDS: sucralfate 1 gm/10 mL Oral Liq UDC PO ×4 (06:28→21:51)
[2023-01-05] MEDS: magnesium hydroxide 30 mL UDC PO (10:07)
[2023-01-05] MEDS: sennosides-docusate Tablet 1 TAB PO ×2 (10:07→17:35)
[2023-01-05] MEDS: pantoprazole DR 40 mg Tablet PO (10:07)
[2023-01-05] MEDS: gabapentin 100 mg Capsule PO ×3 (10:07→21:51)
[2023-01-05] MEDS: FUROsemide 10 mg/mL SDV 4mL 40 MG IVP (10:14)
[2023-01-05] MEDS: heparin 5,000 unit/mL INJ 1 mL 5000 UNIT SUBCUT (13:04)
[2023-01-05] MEDS: ALPRAZolam 0.5 mg Tablet PO ×2 (13:37→21:53)
--- NOTE | 2023-01-05 13:47 | PC.SOCIAL ---
IMM update pg 2 of IMM updated and reviewed w/ patient. Copy provided and copy dated, initialed and placed in chart.
--- NOTE | 2023-01-05 15:42 | PM.PN ---
Subjective Subjective: Patient was seen at morning, she continues to complain of shortness of breath with minimal exertion Vitals/I&O/Wt Last Vital Signs Temp 98.0 F 01/05/23 12:00 Pulse 101 H 01/05/23 12:00 Resp 18 01/05/23 12:00 BP 113/76 01/05/23 12:00 Pulse Ox 95 01/05/23 12:00 O2 Del Method 01/05/23 12:00 O2 Flow Rate 2 01/04/23 10:09 01/05/23 01/05/23 01/05/23 06:59 14:59 22:59 Intake Total 1200 / 1200 Balance 1200 / 1200 Physical Exam Const: COMMON NORMALS: no acute distress and patient oriented x3 Resp: COMMON NORMALS: normal respiratory effort, No retractions, No use of accessory muscles and clear to auscultation bilaterally AUSCULTATION: clear to auscultation bilaterally Cardio: COMMON NORMALS: regular rate, regular rhythm, S1 normal heart sound present and S2 normal heart sound present RATE: regular rate RHYTHM: regular rhythm HEART SOUNDS: S1 normal heart sound present and S2 normal heart sound present GI: COMMON NORMALS: Normal to inspection, nondistended, normoactive bowel sounds present and non-tender Extremity: COMMON NORMALS: no pedal edema Neuro: COMMON NORMALS: patient oriented x3 Psych: COMMON NORMALS: mental status grossly normal Data 01/05/23 00:45 01/05/23 00:45 A&P Assessment and plan (1) CHF (congestive heart failure): Continues to complain of shortness of breath minimal exertion History of nonischemic cardiomyopathy. BNP 42310 Continue with IV Lasix 40 mg daily. Strict input output charting, daily weights. For now holding heart failure medications given very recent cardiogenic and septic shock. Midodrine 5 mg twice daily as needed. If blood pressures remain elevated of more than 120 of midodrine can plan to restart low-dose Coreg. Potassium replacement therapy (2) Nephrostomy status: (3) Liver mass: (4) Nonischemic cardiomyopathy: (5) GERD (gastroesophageal reflux disease): Plan Chest pain: Most likely in setting of mild heart failure versus GERD. Troponin cycled on admission 48 Continue with oral Protonix. Add Maalox 30 mg every 4 as needed. Add Carafate before meals and at bedtime. CT chest done on admission consistent with constipation as well. Start on daily milk of magnesia and senna twice daily Full code. Heparin 5000 every 12 hourly. Mechanical soft diet Attestations Medical Necessity Statement*: Requires hospitalization for CHF exacerbation, requiring further diuresis Diagnoses CHF (congestive heart failure) I50.9 Nephrostomy status Z93.6 Liver mass R16.0 Nonischemic cardiomyopathy I42.8 GERD (gastroesophageal reflux disease) K21.9
[2023-01-05] MEDS: citalopram 20 mg Tablet 40 MG PO (17:35)
[2023-01-05] MEDS: HYDROcodone-acetaminophen 5-325 mg Tablet 1 TAB PO (21:50)
[2023-01-06] VITALS (11 sets, daily range): BP systolic 111–118; BP diastolic 74–80; PULSE 95–103; RESP 15–23; TEMP 36.3–36.9; O2SAT 91–100
[2023-01-06] MEDS: heparin 5,000 unit/mL INJ 1 mL 5000 UNIT SUBCUT ×2 (01:17→12:11)
--- NOTE | 2023-01-06 02:14 | PC.NURSE ---
Patient repeatedly asked this nurse for pain medication, stating that the hydrocodone was not helping and wanted either Dilaudid or oxycodone. Dr Mancilla was informed of the patient request, and stated that she would give the patient a one time order for 0.2mg Dilaudid once and that the dayshift nurse could communicate the patient request with the dayshift doctor/primary physician.
[2023-01-06] MEDS: HYDROmorphone 1 mg/mL INJ 1 mL 0.2 MG IVP (02:24)
[2023-01-06] MEDS: aspirin 81 mg EC Tablet 162 MG PO (06:01)
[2023-01-06] MEDS: sucralfate 1 gm/10 mL Oral Liq UDC PO ×4 (06:03→20:03)
[2023-01-06 06:18] LABS: Basophils # 0.1 10^3/uL (0.0-0.1); Basophils % 0.9 %; Eosinophils # 0.2 10^3/uL (0.0-0.8); Eosinophils % 2.7 %; Hemoglobin 10.6 g/dL (11.5-15.3); Lymphocytes % 36.2 %; Mean Corpuscular HGB Conc 31.2 g/dL (30.0-36.0); Mean Corpuscular Hemoglobin 33.4 pg (28.0-34.0); Mean Corpuscular Volume 107.3 fl (81-99); Mean Platelet Volume 11.2 fL (7.4-10.4); Monocytes # 0.4 10^3/uL (0.2-0.9); Monocytes % 7.6 %; Neutrophils % 52.1 %; Nucleated Red Blood Cells % 0 %; Platelet Count 146 10^3/cmm (130-400); Red Blood Count 3.17 10^6/uL (4.1-5.3); Red Cell Distribution Width 15.9 % (12.1-15.1); White Blood Count 5.6 10^3/uL (4.0-10.0)
[2023-01-06 06:53] LABS: Blood Urea Nitrogen 17 mg/dL (6-20); Calcium 8.9 mg/dL (8.5-10.5); Carbon Dioxide 28 mmol/L (22-29); Chloride 100 mmol/L (98-107); Glucose 106 mg/dL (65-115); Magnesium 2.2 mg/dL (1.7-2.3); NT Pro B Type Natriuretic Pept 16448 pg/mL (0-125); Osmolality Calculated 292 mOsm/kg (285-295); Sodium 140 mmol/L (136-145)
[2023-01-06 07:02] LABS: Anion Gap 16.2 (5-19); Potassium 4.2 mmol/L (3.5-5.1)
[2023-01-06] MEDS: magnesium hydroxide 30 mL UDC PO (08:41)
[2023-01-06] MEDS: pantoprazole DR 40 mg Tablet PO (08:41)
[2023-01-06] MEDS: gabapentin 100 mg Capsule PO ×3 (08:41→20:03)
[2023-01-06] MEDS: ALPRAZolam 0.5 mg Tablet PO ×2 (08:41→21:26)
[2023-01-06] MEDS: sennosides-docusate Tablet 1 TAB PO ×2 (08:41→17:23)
[2023-01-06] MEDS: FUROsemide 10 mg/mL SDV 4mL 40 MG IVP (09:23)
[2023-01-06] MEDS: HYDROcodone-acetaminophen 5-325 mg Tablet 1 TAB PO (09:39)
--- NOTE | 2023-01-06 13:14 | P.PN_ITS ---
Subjective Subjective: Patient was seen this morning she had complaints of pain overnight she tells me the hydrocodone does not help with her pain, she does report continued shortness of breath, is reporting a cough this morning Vitals/I&O/Wt Last Vital Signs Temp 98.1 F 01/06/23 11:52 Pulse 97 01/06/23 11:52 Resp 17 01/06/23 11:52 BP 115/78 01/06/23 11:52 Pulse Ox 95 01/06/23 11:52 O2 Del Method 01/06/23 09:29 O2 Flow Rate 2 01/06/23 04:00 01/05/23 01/06/23 01/06/23 22:59 06:59 14:59 Intake Total 360 / 1560 0 / 1560 240 / 240 Balance 360 / 1560 0 / 1560 240 / 240 Physical Exam Const: COMMON NORMALS: no acute distress and patient oriented x3 Resp: COMMON NORMALS: normal respiratory effort, No retractions, No use of accessory muscles and clear to auscultation bilaterally AUSCULTATION: clear to auscultation bilaterally Cardio: COMMON NORMALS: regular rate, regular rhythm, S1 normal heart sound present and S2 normal heart sound present RATE: regular rate RHYTHM: regular rhythm HEART SOUNDS: S1 normal heart sound present and S2 normal heart sound present GI: COMMON NORMALS: Normal to inspection, nondistended, normoactive bowel sounds present and non-tender Extremity: COMMON NORMALS: no pedal edema Neuro: COMMON NORMALS: patient oriented x3 Psych: COMMON NORMALS: mental status grossly normal Data 01/06/23 06:11 01/06/23 06:11 A&P Assessment and plan (1) CHF (congestive heart failure): Continues to complain of shortness of breath minimal exertion History of nonischemic cardiomyopathy. BNP 95585 Continue with IV Lasix 40 mg daily. 1 dose metolazone this afternoon Strict input output charting, daily weights. For now holding heart failure medications given very recent cardiogenic and septic shock. Midodrine 5 mg twice daily as needed. If blood pressures remain elevated of more than 120 of midodrine can plan to restart low-dose Coreg. Potassium replacement therapy Due to complaints of cough, will do respiratory viral panel, chest x-ray, Pro- [place], CRP (2) Nephrostomy status: (3) Liver mass: (4) Nonischemic cardiomyopathy: (5) GERD (gastroesophageal reflux disease): Plan Chest pain: Most likely in setting of mild heart failure versus GERD. Troponin cycled on admission 48 Continue with oral Protonix. Add Maalox 30 mg every 4 as needed. Add Carafate before meals and at bedtime. CT chest done on admission consistent with constipation as well. Start on daily milk of magnesia and senna twice daily Full code. Heparin 5000 every 12 hourly. Mechanical soft diet Attestations Medical Necessity Statement*: Patient requires hospitalization for fluid overload requiring diuresis Diagnoses CHF (congestive heart failure) I50.9 Nephrostomy status Z93.6 Liver mass R16.0 Nonischemic cardiomyopathy I42.8 GERD (gastroesophageal reflux disease) K21.9
--- NOTE | 2023-01-06 13:15 | XR_ITS ---
WS: [id number] Exam: XR chest 1V portable [id number] Date/Time of Exam: 01/06/2023 1:15 PM Reason For Exam: sob Comparison 01/04/2023. The lungs remain clear and fully expanded. No pleural effusions. Mild cardiac enlargement unchanged. The mediastinum is normal in contour. An ICD superimposes the left chest. Bony structures are intact. XR/XR chest 1V portable [id number] IMPRESSION: 1. Mild cardiac enlargement. No acute cardiopulmonary finding.
[2023-01-06 13:43] LABS: C Reactive Protein 9.1 mg/L (0.0-4.9)
[2023-01-06 13:50] LABS: Procalcitonin 0.09 ng/mL (0-0.5)
[2023-01-06] MEDS: metOLazone 5 MG Tablet PO (13:55)
[2023-01-06] MEDS: oxyCODONE-APAP 5-325 mg Tablet 1 TAB PO ×2 (13:55→20:02)
[2023-01-06 15:57] LABS: Adenovirus Not Detected (NOT DETECT); Chlamydia Pneumoniae Not Detected (NOT DETECT); Coronavirus 229E,HKU1,NL63,OC4 Not Detected (NOT DETECT); Human Metapneumovirus Not Detected (NOT DETECT); Human Rhinovirus/Enterovirus Not Detected (NOT DETECT); Influenza A Not Detected (NOT DETECT); Influenza A H1 Not Detected (NOT DETECT); Influenza A H1-2009 Not Detected (NOT DETECT); Influenza A H3 Not Detected (NOT DETECT); Influenza B Not Detected (NOT DETECT); Mycoplasma Pneumoniae Not Detected (NOT DETECT); Parainfluenza Virus Type 1 Not Detected (NOT DETECT); Parainfluenza Virus Type 2 Not Detected (NOT DETECT); Parainfluenza Virus Type 3 Not Detected (NOT DETECT); Parainfluenza Virus Type 4 Not Detected (NOT DETECT); Respiratory Syncytial Virus A Not Detected (NOT DETECT); Respiratory Syncytial Virus B Not Detected (NOT DETECT); SARS-COV-2 Not Detected (NOT DETECT)
[2023-01-06] MEDS: citalopram 20 mg Tablet 40 MG PO (17:23)
[2023-01-06] MEDS: zolpidem 5 mg Tablet 2.5 MG PO (21:26)
--- NOTE | 2023-01-06 21:28 | PC.NURSE ---
Nurse rounded on patient after being told that patient was complaining of pain, despite having been given oxycodone. Patient was found sitting up in patient bed, crying, and nurse asked what was wrong with the patient. Patient stated that she was still hurting, but did not want any Tylenol. Patient administered Xanax and Ambien, which seemed to calm down the patient. Patient given call light and left resting in bed.
[2023-01-06] MEDS: alum-mag-hydroxide-sime 30 mL UDC PO (23:05)
[2023-01-06] MEDS: acetaminophen 325 mg Tablet 650 MG PO (23:05)
[2023-01-07] VITALS (9 sets, daily range): BP systolic 96–116; BP diastolic 62–78; PULSE 94–98; RESP 16–20; TEMP 36.6; O2SAT 91–98
[2023-01-07] MEDS: heparin 5,000 unit/mL INJ 1 mL 5000 UNIT SUBCUT ×2 (00:58→13:11)
[2023-01-07 05:10] LABS: Basophils # 0.1 10^3/uL (0.0-0.1); Basophils % 1.1 %; Eosinophils # 0.2 10^3/uL (0.0-0.8); Eosinophils % 3.6 %; Hematocrit 34.5 % (37.0-47.0); Hemoglobin 11.1 g/dL (11.5-15.3); Lymphocytes # 2.2 10^3/uL (0.8-4.8); Lymphocytes % 39.5 %; Mean Corpuscular HGB Conc 32.2 g/dL (30.0-36.0); Mean Corpuscular Hemoglobin 33.9 pg (28.0-34.0); Mean Corpuscular Volume 105.5 fl (81-99); Monocytes # 0.6 10^3/uL (0.2-0.9); Neutrophils % 45.3 %; Nucleated Red Blood Cells % 0 %; Platelet Count 153 10^3/cmm (130-400); Red Blood Count 3.27 10^6/uL (4.1-5.3); Red Cell Distribution Width 15.7 % (12.1-15.1); White Blood Count 5.5 10^3/uL (4.0-10.0)
[2023-01-07 05:40] LABS: Anion Gap 15.4 (5-19); Blood Urea Nitrogen 22 mg/dL (6-20); Calcium 9.6 mg/dL (8.5-10.5); Carbon Dioxide 31 mmol/L (22-29); Chloride 97 mmol/L (98-107); Glomerular Filtration Rate 42.8 mL/min (90-130); Glucose 90 mg/dL (65-115); Magnesium 2.3 mg/dL (1.7-2.3); NT Pro B Type Natriuretic Pept 13502 pg/mL (0-125); Osmolality Calculated 293 mOsm/kg (285-295); Potassium 3.4 mmol/L (3.5-5.1); Sodium 140 mmol/L (136-145)
[2023-01-07] MEDS: aspirin 81 mg EC Tablet 162 MG PO (06:13)
[2023-01-07] MEDS: oxyCODONE-APAP 5-325 mg Tablet 1 TAB PO ×2 (06:13→12:47)
[2023-01-07] MEDS: sucralfate 1 gm/10 mL Oral Liq UDC PO ×2 (06:14→10:29)
[2023-01-07] MEDS: FUROsemide 10 mg/mL SDV 4mL 40 MG IVP (09:06)
[2023-01-07] MEDS: magnesium hydroxide 30 mL UDC PO (09:06)
[2023-01-07] MEDS: gabapentin 100 mg Capsule PO (09:07)
[2023-01-07] MEDS: ALPRAZolam 0.5 mg Tablet PO (09:07)
[2023-01-07] MEDS: sennosides-docusate Tablet 1 TAB PO (09:07)
[2023-01-07] MEDS: pantoprazole DR 40 mg Tablet PO (09:07)
[2023-01-07] MEDS: ondansetron 2 mg/ML SDV 2 mL 4 MG IVP (09:07)
[2023-01-07] MEDS: albuterol 2.5 mg/3 mL Neb INHALATION (09:17)
[2023-01-07] MEDS: potassium chloride ER 20 mEq Tablet 40 MEQ PO (10:01)
[2023-01-07] MEDS: midodrine 5 mg TABLET PO (10:01)
--- NOTE | 2023-01-07 11:10 | P.DS_ITS ---
Discharge Providers Date of Admission: 01/02/23 22:39 Date of Discharge: January 07, 2023 Attending Provider at Admission: Natacha Mancilla MD Attending Provider at Discharge: Shay Parks MD Primary Care Provider: Mavis Peterson Diagnoses at Discharge Discharge Diagnosis (1) CHF (congestive heart failure): Status: Acute (2) Nephrostomy status: Status: Acute (3) Liver mass: Status: Acute (4) Nonischemic cardiomyopathy: Status: Acute Permanent problem details: Specific etiology unknown, may have been viral or related to uncontrolled hypertension from her recollection Echocardiogram November 2021 with ejection fraction of 42% - 05/17/22 echo EF now 25% (5) GERD (gastroesophageal reflux disease): Status: Acute Reason for Visit Reason for Visit: SOB, chest pressure Hospital Course Hospital Course Elena Pulliam is a 52 year old female with past medical history of CHF with reduced ejection fraction, CKD, recurrent UTI, TIA, hypertension, mass and liver, obstructive pyelonephritis, urolithiasis, nonischemic cardiomyopathy, nephrostomy tubes presented to the hospital today with complaint of shortness of breath requiring oxygen and coughing up clear sputum.? She also had some sharp pain in the center of her chest which has resolved by now.? She was discharged earlier today in hemodynamically stable condition and advised to hold off on her antihypertensives including Coreg, Entresto, spironolactone for next 1 week to 10 days.? She was also advised to take midodrine 5 mg twice daily for systolic blood pressure of less than 100.? Home health was being arranged for regular medication and blood pressure checks.? She follows at [facility] for her nephrostomy tube management.? She was also advised to have liver biopsy done as an outpatient within 1 month for concerns of liver mass.? At previous admission she was managed for sepsis. Patient was admitted to [facility] she was slowly diuresed during her hospitalization, overall clinically improved, discharged on Lasix 40 mg once daily with potassium replacement with a close follow-up with her primary care provider on Monday for recheck kidney function, and potassium. Follow-up with cardiology next week. Physical Exam Const: COMMON NORMALS: no acute distress and patient oriented x3 Resp: COMMON NORMALS: normal respiratory effort, No retractions, No use of accessory muscles and clear to auscultation bilaterally AUSCULTATION: clear to auscultation bilaterally Cardio: COMMON NORMALS: regular rate, regular rhythm, S1 normal heart sound present and S2 normal heart sound present RATE: regular rate RHYTHM: regular rhythm HEART SOUNDS: S1 normal heart sound present and S2 normal heart sound present GI: COMMON NORMALS: Normal to inspection, nondistended, normoactive bowel sounds present and non-tender Extremity: COMMON NORMALS: no pedal edema Neuro: COMMON NORMALS: patient oriented x3 Psych: COMMON NORMALS: mental status grossly normal Discharge Data Studies Completed and Pending Completed Studies During Hospitalization Category Date Time Status CTA chest [CT angio chest PE protcl [id number]] Stat Cat Scan 01/02/23 20:57 Completed XR chest 1V portable [id number] Routine Exams 01/04/23 08:00 Completed XR chest 1V portable [id number] Routine Exams 01/06/23 13:15 Completed XR chest 1V portable [id number] Stat Exams 01/02/23 19:39 Completed Radiology Impressions Chest CTA 01/02/23 20:57 IMPRESSION: 1. Congestive failure with bilateral pleural effusions. 2. No evidence of pulmonary embolism. Chest X-Ray 01/06/23 13:15 IMPRESSION: 1. Mild cardiac enlargement. No acute cardiopulmonary finding. Laboratory Results WBC 5.5 10^3/uL (4.0-10.0) 01/07/23 03:56 RBC 3.27 10^6/uL (4.1-5.3) L 01/07/23 03:56 Hgb 11.1 g/dL (11.5-15.3) L 01/07/23 03:56 Hct 34.5 % (37.0-47.0) L 01/07/23 03:56 MCV 105.5 fl (81-99) H 01/07/23 03:56 MCH 33.9 pg (28.0-34.0) 01/07/23 03:56 MCHC 32.2 g/dL (30.0-36.0) 01/07/23 03:56 RDW 15.7 % (12.1-15.1) H 01/07/23 03:56 Plt Count 153 10^3/cmm (130-400) 01/07/23 03:56 MPV 12.0 fL (7.4-10.4) H 01/07/23 03:56 Neut % (Auto) 45.3 % 04/01/23 03:56 Lymph % (Auto) 39.5 % 01/07/23 03:56 [place] % (Auto) 10.0 % 01/07/23 03:56 Eos % (Auto) 3.6 % 01/07/23 03:56 Baso % (Auto) 1.1 % 01/07/23 03:56 Neut # (Auto) 2.50 10^3/uL (1.8-7.7) 01/07/23 03:56 Lymph # (Auto) 2.2 10^3/uL (0.8-4.8) 01/07/23 03:56 [place] # (Auto) 0.6 10^3/uL (0.2-0.9) 01/07/23 03:56 Eos # (Auto) 0.2 10^3/uL (0.0-0.8) 01/07/23 03:56 Baso # (Auto) 0.1 10^3/uL (0.0-0.1) 01/07/23 03:56 Nucleated RBC % (auto) 0 % 01/07/23 03:56 Nucleated RBCs # 0.0 /100WBC 01/07/23 03:56 D-Dimer 2.30 ug/mIFEU (0-0.59) H 01/02/23 19:40 Specimen Type Arterial 01/02/23 20:40 Sample Site Radial, right 01/02/23 20:40 ABG pH 7.40 (7.35-7.45) 01/02/23 20:40 ABG pCO2 28.0 mmHg (35-45) L 01/02/23 20:40 ABG pO2 117.0 mmHg (80.0-100.0) H 01/02/23 20:40 ABG HCO3 17.5 mmol/L (22-26) L 01/02/23 20:40 ABG Base Excess -6.2 mmol/L (-2.0-2.0) L 01/02/23 20:40 Michi Test Pos 01/02/23 20:40 Hematocrit 32.1 % (37-47) L 01/02/23 20:40 O2 Delivery Device Nc 01/02/23 20:40 O2 Liters/Min 2.0 % 01/02/23 20:40 Boatswains Mate ID Yolanda 01/02/23 20:40 Sodium 140 mmol/L (136-145) 01/07/23 03:56 Potassium 3.4 mmol/L (3.5-5.1) L 01/07/23 03:56 Chloride 97 mmol/L (98-107) L 01/07/23 03:56 Carbon Dioxide 31 mmol/L (22-29) H 01/07/23 03:56 Anion Gap 15.4 (5-19) 01/07/23 03:56 BUN 22 mg/dL (6-20) H 01/07/23 03:56 Creatinine 1.3 mg/dL (0.5-0.9) H 01/07/23 03:56 GFR Calculation 42.8 mL/min (90-130) L 01/07/23 03:56 Glucose 90 mg/dL (65-115) 01/07/23 03:56 Calculated Osmolality 293 mOsm/kg (285-295) 01/07/23 03:56 Calcium 9.6 mg/dL (8.5-10.5) 01/07/23 03:56 Magnesium 2.3 mg/dL (1.7-2.3) 01/07/23 03:56 Total Bilirubin 0.5 mg/dL (0.15-1.2) 01/04/23 04:55 AST 18 U/L (0-32) 01/04/23 04:55 ALT 44 U/L (0-33) H 01/04/23 04:55 Alkaline Phosphatase 82 U/L (35-105) 01/04/23 04:55 Troponin T Gen 5 ng/L 48 ng/L (0-10) H 01/05/23 00:45 Troponin T Baseline 21 ng/L (0-10) H 01/02/23 20:00 Troponin T 120 Minute 22.52 ng/L (0-10) H 01/02/23 21:42 Delta Troponin T 1.52 ABS# (0-10) 01/02/23 21:42 Troponin T Hi Sens 6Hr 24.06 ng/L (0-10) H 01/03/23 01:29 Troponin T Hi Sens 6Hr Delta 3.06 ng/L (0-12) 01/03/23 01:29 C-Reactive Protein 9.1 mg/L (0.0-4.9) H 01/06/23 06:11 NT-Pro-B Natriuret Pep 77607 pg/mL (0-125) H 01/07/23 03:56 Total Protein 5.6 g/dL (6.6-8.7) L 01/04/23 04:55 Albumin 3.5 g/dL (3.5-5.2) 01/04/23 04:55 Globulin 2.1 g/dL (1.3-4.6) 01/04/23 04:55 Procalcitonin 0.09 ng/mL (0-0.5) 01/06/23 06:11 Nasal Influ A H1 2009 PCR Not detected (NOT DETECT) 01/06/23 13:58 Adenovirus (PCR) Not detected (NOT DETECT) 01/06/23 13:58 C. pneumoniae DNA (PCR) Not detected (NOT DETECT) 01/06/23 13:58 Coronavirus 229E (PCR) Not detected (NOT DETECT) 01/06/23 13:58 Human Metapneumovir PCR Not detected (NOT DETECT) 01/06/23 13:58 Influenza A (H1) PCR Not detected (NOT DETECT) 01/06/23 13:58 Influenza A (H3) PCR Not detected (NOT DETECT) 01/06/23 13:58 Influenza Type A Ag negative (Negative) 01/02/23 20:40 Influenza Type A (PCR) Not detected (NOT DETECT) 01/06/23 13:58 Influenza Type B Ag negative (Negative) 01/02/23 20:40 Influenza Type B (PCR) Not detected (NOT DETECT) 01/06/23 13:58 M. pneumoniae (PCR) Not detected (NOT DETECT) 01/06/23 13:58 Parainfluenza 1 (PCR) Not detected (NOT DETECT) 01/06/23 13:58 Parainfluenza 2 (PCR) Not detected (NOT DETECT) 01/06/23 13:58 Parainfluenza 3 (PCR) Not detected (NOT DETECT) 01/06/23 13:58 Parainfluenza 4 (PCR) Not detected (NOT DETECT) 01/06/23 13:58 RSV Type A (PCR) Not detected (NOT DETECT) 01/06/23 13:58 RSV Type B (PCR) Not detected (NOT DETECT) 01/06/23 13:58 Entero/Rhino (PCR) Not detected (NOT DETECT) 01/06/23 13:58 SARS-CoV-2 (PCR) Not detected (NOT DETECT) 01/06/23 13:58 SARS-CoV-2 Ag (Rapid) negative (Negative) 01/02/23 20:40 Vitals Last Vital Signs Temp 97.8 F 01/07/23 04:23 Pulse 98 01/07/23 09:20 Resp 18 01/07/23 09:20 BP 96/62 01/07/23 04:23 Pulse Ox 98 01/07/23 09:20 O2 Del Method 01/07/23 09:20 O2 Flow Rate 2 01/06/23 04:00 Discharge Plan Discharge Patient Disposition: Home Condition: Stable Prescriptions: Continued citalopram [Celexa] 40 mg tablet 40 mg PO QPM zolpidem 10 mg tablet 10 mg PO BEDTIME aspirin [Adult Low Dose Aspirin] 81 mg tablet,delayed release (DR/EC) 162 mg PO QAM Hold Instructions: Resume on 10/19/22. Until after percutaneous tube placed in the left kidney carvedilol 6.25 mg tablet 6.25 mg PO BID Qty: 180 2RF Hold Instructions: Resume on 01/12/23. Rx Instructions: must administer with a meal/food Vitamin B-12 50 mcg Tablet 50 mcg PO QAM montelukast 10 mg tablet 10 mg PO QAM gabapentin 100 mg capsule 100 mg PO TID magnesium 200 mg tablet 200 mg PO DAILY Qty: 30 1RF spironolactone 25 mg tablet 25 mg PO DAILY Qty: 30 3RF Hold Instructions: Resume on 01/11/23. phenazopyridine [Pyridium] 200 mg tablet 200 mg PO TID Qty: 6 0RF capsaicin 0.025 % Cream 1 applic topical QID PRN (Reason: Pain) Qty: 60 0RF acetaminophen 500 mg Tablet 1,000 mg PO Q6H PRN (Reason: Pain) omeprazole 20 mg capsule,delayed release(DR/EC) 20 mg PO BID nitroglycerin [Nitrostat] 0.4 mg Tablet, Sublingual 0.4 mg SUBLINGUAL Q5M PRN (Reason: Chest Pain) Rx Instructions: do not exceed 3 doses per episode albuterol sulfate 90 mcg/actuation HFA aerosol inhaler 2 puff INHALATION QID PRN (Reason: Shortness Of Breath) Entresto 97-103 mg tablet 1 tab PO BID Hold Instructions: Resume on 01/11/23. midodrine 5 mg Tablet 5 mg PO BID PRN (Reason: Sbp less than 100) Qty: 20 0RF sodium bicarbonate 650 mg Tablet 650 mg PO TID Qty: 30 0RF Changed potassium chloride 10 mEq tablet extended release 20 meq PO DAILY 30 Days Qty: 60 1RF Rx Instructions: Only take with Lasix Lasix 40 mg tablet 40 mg PO DAILY 30 Days Qty: 30 0RF Discharge Orders: Discharge Order (Routine); Ordered 01/07/23 Ordered By: Shay Parks Referrals: Desire Callahan FNP [Nurse Practitioner] - 1-3 days Mavis Peterson PA [Primary Care Provider] - 01/19/23 9:30 am Discharge Diet: Cardiac Discharge Activity: Resume usual activity Patient Instructions: Opioid Safety Activity Restrictions/Additional Instructions: - Please see your primary care provider on Monday for check of kidney function and potassium -Follow-up with cardiology Discharge Attestations Time Spent in Discharge Care*: greater than 30 min Status at Discharge: Cognitive status at discharge: cognitively intact , Behavioral status at discharge: cooperative , Quality Metrics Clinical Quality Measures [ No reported AMI, CVA or VTE this stay] Coding Level of Care Code 54652 Total time (in minutes) for Discharge: 40 Diagnoses CHF (congestive heart failure) I50.9 Nephrostomy status Z93.6 Liver mass R16.0 Nonischemic cardiomyopathy I42.8 GERD (gastroesophageal reflux disease) K21.9
--- NOTE | 2023-01-07 14:18 | PC.SOCIAL ---
Imm update Imm updated with patient at bedside. Copy of page 2 provided. Patient verbalized understanding. Copy in chart initialed, dated and timed.
== END 2023-01-07 13:55 | disposition home health service (06) | DRG 291 ==
LOC: ER 22:29 → MEDSURG 22:39
PROVIDERS: Admitting Provider Internal Medicine; Emergency Provider Emergency Medicine; PCP Physician Assistant; Visit Provider Family Medicine
DX: I13.0 Hypertensive heart and chronic kidney disease with heart failure and stage 1 through stage 4 chronic kidney disease, or unspecified chronic kidney disease (principal); I50.23 Acute on chronic systolic (congestive) heart failure; N18.9 Chronic kidney disease, unspecified; Z87.440 Personal history of urinary (tract) infections; Z86.73 Personal history of transient ischemic attack (TIA), and cerebral infarction without residual deficits; R16.0 Hepatomegaly, not elsewhere classified; I42.8 Other cardiomyopathies; Z93.6 Other artificial openings of urinary tract status; Z79.82 Long term (current) use of aspirin; Z79.51 Long term (current) use of inhaled steroids; Z95.810 Presence of automatic (implantable) cardiac defibrillator; F17.210 Nicotine dependence, cigarettes, uncomplicated; G62.9 Polyneuropathy, unspecified; K21.9 Gastro-esophageal reflux disease without esophagitis
CPT/HCPCS: 36415; 36600; 71045; 71275; 74018; 80048; 80053; 81001; 82803; 83690; 83735; 83880; 84145; 84484; 85025; 85378; 86140; 87426; 87486; 87581; 87633; 87804; 93005; 94640; 94664; 94760; 96372; 96374; 96375; 99284; 99285; J1170; J1644; J1940; J2270; J2405; J7613; Q9967

== ENCOUNTER 2023-01-08 11:28 | Emergency (ER) | payer MEDICARE, MEDICAID, SELFPAY ==
--- NOTE | 2023-01-08 11:30 | XRR_ITS ---
PROCEDURE INFORMATION: Exam: XR Chest Exam date and time: 01/08/2023 11:42 AM Age: 53 years old Clinical indication: Pain; Chest pressure; Prior surgery; Surgery type: Pacemaker; Defibrillator; Additional info: Cp TECHNIQUE: Imaging protocol: Radiologic exam of the chest. Views: 1 view. COMPARISON: CR XR chest 1V portable [id number] 01/06/2023 12:33 PM FINDINGS: Tubes, catheters and devices: A cardiac pacing device is again seen projecting over the left chest. Lungs: Unremarkable. No consolidation. Pleural spaces: Unremarkable. No pleural effusion. No pneumothorax. Heart/Mediastinum: Stable cardiomediastinal silhouette. Bones/joints: Degenerative changes of the spine seen. XR/XR chest 1V portable [id number] IMPRESSION: No acute pathology in the chest.
--- NOTE | 2023-01-08 11:32 | W.ED.CHESTPA ---
HPI - Chest Pain General: Chief Complaint: Chest Pain Stated Complaint: CHEST PAIN Time Seen by Provider: 01/08/23 11:30 Source: patient and EMS Mode of arrival: EMS Limitations: no limitations History of Present Illness: 53-year-old female who is very well-known to the ER she was discharged from the hospital yesterday for CHF. She states that she has been having chest pain since 830 this morning its been a sharp pain in the center of her chest she is not on any oxygen currently she denies any worsening improving factors. She rates her pain a 5 out of 10 currently no vomiting no diarrhea. Associated symptoms: Deny abdominal pain, dyspnea, fever(s), nausea or vomiting Review of Systems Const: Denies: fever(s), chills, body aches or change in appetite Eyes: Denies: blurry vision or eye discomfort ENMT: Denies: throat pain or dental pain Card: Reports: chest pain Resp: Denies: dyspnea GI: Denies: abdominal pain, nausea, vomiting or diarrhea : Denies: dysuria Musc: Denies: neck pain or back pain Skin/Breast: Denies: rash Neuro: Denies: headache(s) Psych: Denies: depression Cedric/Lymph: Denies: easy bruising All/Imm: Denies: urticaria PFSH ED PFSH: Medical History Acute hypokalemia AICD discharge Chest pain CHF (congestive heart failure) CKD (chronic kidney disease) Closed intertrochanteric fracture of left hip History of recurrent UTIs History of TIA (transient ischemic attack) HTN (hypertension) Hydronephrosis, left Hypertension Hypokalemia Hypokalemia ICD (implantable cardioverter-defibrillator) in place Liver mass Mass of right lobe of liver ~3.5 x 4 cm, indeterminant, hypodense, first noted 11/2021 Nicotine dependence, cigarettes, uncomplicated Non-ischemic cardiomyopathy Nonischemic cardiomyopathy Specific etiology unknown, may have been viral or related to uncontrolled hypertension from her recollection Echocardiogram November 2021 with ejection fraction of 42% - 05/17/22 echo EF now 25% Obstructive pyelonephritis (~11/2021) Renal atrophy, left Syncope Urolithiasis Multi stone former. Complicated by at least 1 episode of obstructive pyelonephritis. Multiple procedures required to treat Ventricular tachycardia Surgical History Nephrostomy status S/P ureteral stent placement (~11/2021) Status post cholecystectomy Status post placement of cardiac pacemaker Family History Father , AT AGE 77 CAD (coronary artery disease) Cancer lung cancer Mother , AT AGE 60 Cancer OVARIAN Denies family history of Clotting disorder Anesthesia complication Bleeding disorder Social History Smoking and tobacco status: current every day smoker cigarettes Packs smoked per day: 0.5 Years cigarettes smoked: 45 Second hand smoke exposure: Yes Alcohol intake: current Lives independently: Yes Marital status: service: No Current occupational status: disabled Current gender identity: Female Physical Exam Const: COMMON NORMALS: no acute distress, patient oriented x3 and healthy appearing HENMT: COMMON NORMALS: normocephalic and atraumatic HEAD & SCALP: normocephalic and atraumatic Eye: COMMON NORMALS: Equal, round and reactive pupils present and EOMs intact bilaterally PUPIL: Yes Equal, round and reactive pupils present Neck/C-Spine: COMMON NORMALS: full ROM and supple Chest: COMMONS NORMALS: normal inspection of the chest and normal palpation of entire chest wall Resp: COMMON NORMALS: normal respiratory effort, No retractions, No use of accessory muscles and clear to auscultation bilaterally AUSCULTATION: clear to auscultation bilaterally Cardio: COMMON NORMALS: regular rate, regular rhythm and No murmurs present (Cardio) RATE: regular rate RHYTHM: regular rhythm GI: COMMON NORMALS: Normal to inspection, nondistended, normoactive bowel sounds present, Soft to palpation, non-tender and no masses PALPATION: Yes Soft to palpation Extremity: COMMON NORMALS: normal to inspection and full ROM Neuro: COMMON NORMALS: patient oriented x3, moves all extremities and no focal motor deficits Psych: COMMON NORMALS: mental status grossly normal, Normal thought process present and cooperative THOUGHT PROCESS: Normal thought process present Skin: COMMON NORMALS: no rashes or lesions noted and no wounds GENERAL SKIN EXAM: no rashes or lesions noted Course Vital Signs: Vital signs: Vital Signs Pulse Rate 102 H 01/08/23 13:30 Respiratory Rate 15 01/08/23 13:30 Blood Pressure 124/89 01/08/23 13:30 Pulse Oximetry 93 01/08/23 13:30 Oxygen Delivery Me thod 01/08/23 13:30 MDM - Chest Pain Medical Decision Making Patient presents for chest pain that is chronic in nature initial repeat troponin here normal x-ray EKGs are normal as well she is stable for discharge she is to follow-up with her PCP and return if worsening. Lab Data 01/08/23 10:50 01/08/23 10:50 Radiology Impressions Chest X-Ray 01/08/23 11:30 IMPRESSION: No acute pathology in the chest. Laboratory Results WBC 7.9 10^3/uL (4.0-10.0) 01/08/23 10:50 RBC 3.64 10^6/uL (4.1-5.3) L 01/08/23 10:50 Hgb 12.1 g/dL (11.5-15.3) 01/08/23 10:50 Hct 38.0 % (37.0-47.0) 01/08/23 10:50 MCV 104.4 fl (81-99) H 01/08/23 10:50 MCH 33.2 pg (28.0-34.0) 01/08/23 10:50 MCHC 31.8 g/dL (30.0-36.0) 01/08/23 10:50 RDW 15.5 % (12.1-15.1) H 01/08/23 10:50 Plt Count 240 10^3/cmm (130-400) 01/08/23 10:50 MPV 11.6 fL (7.4-10.4) H 01/08/23 10:50 Neut % (Auto) 65.0 % 01/08/23 10:50 Lymph % (Auto) 22.3 % 01/08/23 10:50 [place] % (Auto) 8.6 % 01/08/23 10:50 Eos % (Auto) 2.3 % 01/08/23 10:50 Baso % (Auto) 1.3 % 01/08/23 10:50 Neut # (Auto) 5.14 10^3/uL (1.8-7.7) 01/08/23 10:50 Lymph # (Auto) 1.8 10^3/uL (0.8-4.8) 01/08/23 10:50 [place] # (Auto) 0.7 10^3/uL (0.2-0.9) 01/08/23 10:50 Eos # (Auto) 0.2 10^3/uL (0.0-0.8) 01/08/23 10:50 Baso # (Auto) 0.1 10^3/uL (0.0-0.1) 01/08/23 10:50 Nucleated RBC % (auto) 0 % 01/08/23 10:50 Nucleated RBCs # 0.0 /100WBC 01/08/23 10:50 Sodium 136 mmol/L (136-145) 01/08/23 10:50 Potassium 3.8 mmol/L (3.5-5.1) 01/08/23 10:50 Chloride 94 mmol/L (98-107) L 01/08/23 10:50 Carbon Dioxide 28 mmol/L (22-29) 01/08/23 10:50 Anion Gap 17.8 (5-19) 01/08/23 10:50 BUN 23 mg/dL (6-20) H 01/08/23 10:50 Creatinine 1.2 mg/dL (0.5-0.9) H 01/08/23 10:50 GFR Calculation 47.0 mL/min (90-130) L 01/08/23 10:50 Glucose 109 mg/dL (65-115) 01/08/23 10:50 Calculated Osmolality 286 mOsm/kg (285-295) 01/08/23 10:50 Calcium 9.5 mg/dL (8.5-10.5) 01/08/23 10:50 Total Bilirubin 0.6 mg/dL (0.15-1.2) 01/08/23 10:50 AST 19 U/L (0-32) 01/08/23 10:50 ALT 21 U/L (0-33) 01/08/23 10:50 Alkaline Phosphatase 103 U/L (35-105) 01/08/23 10:50 Troponin T Baseline 21 ng/L (0-10) H 01/08/23 10:50 Troponin T 120 Minute 18.52 ng/L (0-10) H 01/08/23 13:25 Delta Troponin T -2.48 ABS# (0-10) L 01/08/23 13:25 Total Protein 7.0 g/dL (6.6-8.7) 01/08/23 10:50 Albumin 4.3 g/dL (3.5-5.2) 01/08/23 10:50 Globulin 2.7 g/dL (1.3-4.6) 01/08/23 10:50 EKG Data EKG 1: I personally reviewed and interpreted this EKG as follows: EKG interpretation date: 01/08/23 EKG interpretation time: 11:39 Interpretation: nsr hr [address] or t wave abnormalities qrs 129 qtc 482 Discharge Plan Discharge Patient Disposition: Home Clinical Impression: Chest pain Condition: Stable Prescriptions: No Action citalopram [Celexa] 40 mg tablet 40 mg PO QPM zolpidem 10 mg tablet 10 mg PO BEDTIME aspirin [Adult Low Dose Aspirin] 81 mg tablet,delayed release (DR/EC) 162 mg PO QAM Hold Instructions: Resume on 10/19/22. Until after percutaneous tube placed in the left kidney carvedilol 6.25 mg tablet 6.25 mg PO BID Qty: 180 2RF Hold Instructions: Resume on 01/12/23. Rx Instructions: must administer with a meal/food Vitamin B-12 50 mcg Tablet 50 mcg PO QAM montelukast 10 mg tablet 10 mg PO QAM gabapentin 100 mg capsule 100 mg PO TID Lasix 40 mg tablet 40 mg PO QAM potassium chloride 10 mEq tablet extended release 20 meq PO QAM Rx Instructions: Only take with Lasix spironolactone 25 mg tablet 25 mg PO QAM magnesium 200 mg tablet 200 mg PO QAM capsaicin 0.025 % Cream 1 applic topical QID PRN (Reason: Pain) Qty: 60 0RF acetaminophen 500 mg Tablet 1,000 mg PO Q6H PRN (Reason: Pain) omeprazole 20 mg capsule,delayed release(DR/EC) 20 mg PO BID nitroglycerin [Nitrostat] 0.4 mg Tablet, Sublingual 0.4 mg SUBLINGUAL Q5M PRN (Reason: Chest Pain) Rx Instructions: do not exceed 3 doses per episode albuterol sulfate 90 mcg/actuation HFA aerosol inhaler 2 puff INHALATION QID PRN (Reason: Shortness Of Breath) Entresto 97-103 mg tablet 1 tab PO BID Hold Instructions: Resume on 01/11/23. midodrine 5 mg Tablet 5 mg PO BID PRN (Reason: Sbp less than 100) Qty: 20 0RF sodium bicarbonate 650 mg Tablet 650 mg PO TID Qty: 30 0RF Discharge Orders: Discharge ED (Routine); Ordered 01/08/23 Ordered By: Marc Mora Referrals: Mavis Peterson PA [Primary Care Provider] - 1-3 days Discharge Diet: Advance as tolerated Discharge Activity: Resume usual activity Patient Instructions: Chest Pain (ED) Coding Level of Care Code ED Prototype Engineer Manager for Wesley Herrera
--- NOTE | 2023-01-08 11:39 | ECG_ITS ---
[facility] Test Date: 2023-01-08 Pat Name: Elena Pulliam Department: Room: Gender: Female Medical Grade Shoemaker: : 1970 Requested By: Marc Mora Order Number: [id number] Reading MD: Shalom Lugo Measurements Intervals [place] Rate: 99 P: 149 [place]: 145 QRS: -26 QRSD: 129 T: 150 QT: 425 QTc: 548 Interpretive Statements NSR intraventricular conduction delay ANTEROLATERAL MYOCARDIAL INFARCTION , OF INDETERMINATE AGE [40+ ms Q WAVE IN I/aVL/V3-V6] Compared to ECG 01/04/2023 21:16:22 Sinus rhythm no longer present Left-axis deviation no longer present Myocardial infarct finding still present Electronically Signed On 01-08-2023 18:58:05 CDT by Shalom Lugo [id number]
[2023-01-08 11:42] VITALS: BP 121/82; PULSE 102; O2SAT 93
[2023-01-08 11:55] VITALS: RESP 18; O2SAT 96
[2023-01-08] MEDS: ondansetron 2 mg/ML SDV 2 mL 4 MG IVP (11:55)
[2023-01-08] MEDS: morphine 4 mg/mL SDV 1 mL IVP (11:55)
[2023-01-08 11:56] LABS: Basophils # 0.1 10^3/uL (0.0-0.1); Basophils % 1.3 %; Eosinophils # 0.2 10^3/uL (0.0-0.8); Eosinophils % 2.3 %; Hemoglobin 12.1 g/dL (11.5-15.3); Lymphocytes # 1.8 10^3/uL (0.8-4.8); Lymphocytes % 22.3 %; Mean Corpuscular HGB Conc 31.8 g/dL (30.0-36.0); Mean Corpuscular Hemoglobin 33.2 pg (28.0-34.0); Mean Corpuscular Volume 104.4 fl (81-99); Mean Platelet Volume 11.6 fL (7.4-10.4); Monocytes # 0.7 10^3/uL (0.2-0.9); Monocytes % 8.6 %; Neutrophils # 5.14 10^3/uL (1.8-7.7); Nucleated Red Blood Cells % 0 %; Platelet Count 240 10^3/cmm (130-400); Red Blood Count 3.64 10^6/uL (4.1-5.3); Red Cell Distribution Width 15.5 % (12.1-15.1); White Blood Count 7.9 10^3/uL (4.0-10.0)
[2023-01-08 12:26] LABS: Troponin(5th) Baseline 21 ng/L (0-10)
[2023-01-08 12:29] LABS: Alanine Aminotransferase 21 U/L (0-33); Albumin Level 4.3 g/dL (3.5-5.2); Alkaline Phosphatase 103 U/L (35-105); Anion Gap 17.8 (5-19); Aspartate Amino Transferase 19 U/L (0-32); Blood Urea Nitrogen 23 mg/dL (6-20); Calcium 9.5 mg/dL (8.5-10.5); Carbon Dioxide 28 mmol/L (22-29); Chloride 94 mmol/L (98-107); Globulin 2.7 g/dL (1.3-4.6); Glucose 109 mg/dL (65-115); Osmolality Calculated 286 mOsm/kg (285-295); Potassium 3.8 mmol/L (3.5-5.1); Sodium 136 mmol/L (136-145); Total Bilirubin 0.6 mg/dL (0.15-1.2)
[2023-01-08 12:42] VITALS: BP 132/91; PULSE 105; O2SAT 92
--- NOTE | 2023-01-08 12:56 | PC.PHAR ---
pt and pts family verified pts medications-pt states she still takes entresto 97-103 1 tab bid ext med history shows last filled 11/18/22 15d/s pt states has been out for a week since she was in the hospital-pt states she is still taking gabapentin 100mg tid ext med history shows last filled 10/04/23 30d/s-
[2023-01-08 13:30] VITALS: BP 124/89; PULSE 102; RESP 15; O2SAT 93
[2023-01-08 13:48] LABS: Troponin 5 2HR 18.52 ng/L (0-10); Troponin 5 2HR Delta -2.48 ABS# (0-10)
[2023-01-08] MEDS: HYDROcodone-acetaminophen 5-325 mg Tablet 1 TAB PO (13:56)
[2023-01-08 13:58] VITALS: BP 132/83; PULSE 106; RESP 21; O2SAT 95
== END 2023-01-08 14:05 | disposition home or self-care (01) ==
PROVIDERS: Emergency Provider Emergency Medicine; PCP Physician Assistant
DX: R07.9 Chest pain, unspecified (principal); Z79.82 Long term (current) use of aspirin; F17.210 Nicotine dependence, cigarettes, uncomplicated; I13.0 Hypertensive heart and chronic kidney disease with heart failure and stage 1 through stage 4 chronic kidney disease, or unspecified chronic kidney disease; N18.9 Chronic kidney disease, unspecified; I50.9 Heart failure, unspecified; Z86.73 Personal history of transient ischemic attack (TIA), and cerebral infarction without residual deficits; Z95.810 Presence of automatic (implantable) cardiac defibrillator
CPT/HCPCS: 71045; 80053; 84484; 85025; 93005; 96374; 96375; 99285; J2270; J2405

== ENCOUNTER 2023-01-09 08:54 | Emergency (ER) | payer MEDICARE, MEDICAID, SELFPAY ==
[2023-01-09 08:56] VITALS: PULSE 110; RESP 14; TEMP 37.2; O2SAT 93; BMI 26.6
--- NOTE | 2023-01-09 09:14 | ED_ITS ---
HPI - Fever General: Chief Complaint: Abdominal Pain Stated Complaint: ABDOMINAL PAIN Time Seen by Provider: 01/09/23 08:57 Source: patient Mode of arrival: EMS Limitations: no limitations History of Present Illness: Patient presents to the emergency department today brought by EMS for evaluation treatment of complaints of periumbilical and epigastric abdominal pains. Patient states pain started this morning. She is complaining of nausea but no vomiting but states she has hardly ate or drink anything.. She has not had a bowel movement in a couple of days. She has not reported any fevers. She denies dysuria but states her urine is dark. Chart review shows that she was seen and evaluated yesterday for complaints of chest pain after recent discharge from the hospital for a CHF exacerbation. She denied abdominal pains, nausea, vomiting during her evaluation yesterday. Associated symptoms: Reports abdominal pain and nausea; Deny diarrhea Review of Systems General: Reports: 10 or more systems reviewed and unremarkable except in HPI and below GI: Reports: abdominal pain, nausea and constipation; Denies: diarrhea PFSH ED PFSH: Medical History Acute hypokalemia AICD discharge Chest pain CHF (congestive heart failure) CKD (chronic kidney disease) Closed intertrochanteric fracture of left hip History of recurrent UTIs History of TIA (transient ischemic attack) HTN (hypertension) Hydronephrosis, left Hypertension Hypokalemia Hypokalemia ICD (implantable cardioverter-defibrillator) in place Liver mass Mass of right lobe of liver ~3.5 x 4 cm, indeterminant, hypodense, first noted 11/2021 Nicotine dependence, cigarettes, uncomplicated Non-ischemic cardiomyopathy Nonischemic cardiomyopathy Specific etiology unknown, may have been viral or related to uncontrolled hypertension from her recollection Echocardiogram November 2021 with ejection fraction of 42% - 05/17/22 echo EF now 25% Obstructive pyelonephritis (~11/2021) Renal atrophy, left Syncope Urolithiasis Multi stone former. Complicated by at least 1 episode of obstructive pyelonephritis. Multiple procedures required to treat Ventricular tachycardia Surgical History Nephrostomy status S/P ureteral stent placement (~11/2021) Status post cholecystectomy Status post placement of cardiac pacemaker Family History Father , AT AGE 77 CAD (coronary artery disease) Cancer lung cancer Mother , AT AGE 60 Cancer OVARIAN Denies family history of Clotting disorder Anesthesia complication Bleeding disorder Social History Smoking and tobacco status: current every day smoker cigarettes Packs smoked per day: 0.5 Years cigarettes smoked: 45 Second hand smoke exposure: Yes Alcohol intake: current Lives independently: Yes Marital status: service: No Current occupational status: disabled Current gender identity: Female Physical Exam Const: COMMON NORMALS: no acute distress, patient oriented x3 and alert HENMT: COMMON NORMALS: normocephalic, atraumatic, hearing grossly normal bilaterally and moist oral mucous membranes HEAD & SCALP: normocephalic and atraumatic Eye: COMMON NORMALS: Equal, round and reactive pupils present, EOMs intact bilaterally and conjunctivae normal CONJUNCTIVA: Yes conjunctivae normal PUPIL: Yes Equal, round and reactive pupils present Neck/C-Spine: COMMON NORMALS: full ROM and no JVD Lymph: LYMPHATIC: no lymphadenopathy noted Resp: COMMON NORMALS: normal respiratory effort, No retractions, No use of accessory muscles and clear to auscultation bilaterally AUSCULTATION: clear to auscultation bilaterally Cardio: COMMON NORMALS: no JVD, regular rate and regular rhythm RATE: regular rate RHYTHM: regular rhythm GI: OTHER: Diminished bowel sounds throughout. Abdomen is soft. Patient is tender to the superior periumbilical region extending up to the epigastric region. No suprapubic tenderness, specific right lower quadrant or right upper quadrant tenderness on palpation. No guarding, no rigidity. : COMMON NORMALS: Yes no CVA tenderness BLADDER/KIDNEY EXAM: Yes no CVA tenderness Back/Pelvis: COMMON NORMALS: no CVA tenderness, no thoracic nor lumbar tenderness and thoraco-lumbar ROM normal Extremity: COMMON NORMALS: normal to inspection, full ROM and capillary refill normal Neuro: COMMON NORMALS: patient oriented x3 SENSORIUM/ORIENTATION: Yes alert Psych: COMMON NORMALS: mental status grossly normal, Normal thought process present, cooperative, normal affect and activity/motor behavior normal THOUGHT PROCESS: Normal thought process present Skin: COMMON NORMALS: no rashes or lesions noted and no wounds GENERAL SKIN EXAM: no rashes or lesions noted Course Vital Signs: Vital signs: Vital Signs Temperature 99.0 F 01/09/23 08:56 Pulse Rate 110 H 01/09/23 08:56 Respiratory Rate 14 01/09/23 08:56 Blood Pressure 120/96 01/09/23 11:00 Pulse Oximetry 94 01/09/23 11:00 Oxygen Delivery Me thod 01/09/23 08:56 MDM - Fever Medical Decision Making Patient presented to the ER today for evaluation treatment of reports of nausea and periumbilical abdominal pains. Patient received 4 mg of morphine in route by EMS and, patient was requesting more pain medication while she was here. Exp lained to her that the finding of constipation on her x-ray would be made worse with continued narcotics. I did provide her a p.o. Bentyl but, explained her that a colon cleanout is going to be the only thing that provides her complete pain relief. Patient's lab work was generally unremarkable. No concerns for an acute abdomen at this time. Discussed prescription for GoLytely or MiraLAX. Patient wished to do MiraLAX even though she understood it may take a bit longer for her to fully empty. I did explain to her that she may have what appears to be balls of stool passed first as her x-ray indicates the rectal and sigmoid region show this type of stool. However, she should be able to have normal bowel movements and stooling after that. Return precautions given. She can follow-up with her primary care doctor as well. Differential Diagnosis Likely abdominal pain, acute appendicitis, constipation, diverticulitis, gastroenteritis, pancreatitis and small bowel obstruction Lab Data 01/09/23 09:02 01/09/23 09:02 Radiology Impressions KUB X-Ray 01/09/23 09:44 IMPRESSION: No acute abnormality. Appendix was unobstructed/air-filled on CT scan 12/30/2022. Laboratory Results WBC 9.1 10^3/uL (4.0-10.0) 01/09/23 09:02 RBC 3.53 10^6/uL (4.1-5.3) L 01/09/23 09:02 Hgb 11.7 g/dL (11.5-15.3) 01/09/23 09:02 Hct 36.8 % (37.0-47.0) L 01/09/23 09:02 MCV 104.2 fl (81-99) H 01/09/23 09:02 MCH 33.1 pg (28.0-34.0) 01/09/23 09:02 MCHC 31.8 g/dL (30.0-36.0) 01/09/23 09:02 RDW 15.3 % (12.1-15.1) H 01/09/23 09:02 Plt Count 247 10^3/cmm (130-400) 01/09/23 09:02 MPV 11.7 fL (7.4-10.4) H 01/09/23 09:02 Neut % (Auto) 65.2 % 01/09/23 09:02 Lymph % (Auto) 21.9 % 01/09/23 09:02 [place] % (Auto) 9.5 % 01/09/23 09:02 Eos % (Auto) 1.9 % 01/09/23 09:02 Baso % (Auto) 1.2 % 01/09/23 09:02 Neut # (Auto) 5.96 10^3/uL (1.8-7.7) 01/09/23 09:02 Lymph # (Auto) 2.0 10^3/uL (0.8-4.8) 01/09/23 09:02 [place] # (Auto) 0.9 10^3/uL (0.2-0.9) 01/09/23 09:02 Eos # (Auto) 0.2 10^3/uL (0.0-0.8) 01/09/23 09:02 Baso # (Auto) 0.1 10^3/uL (0.0-0.1) 01/09/23 09:02 Nucleated RBC % (auto) 0 % 01/09/23 09:02 Nucleated RBCs # 0.0 /100WBC 01/09/23 09:02 Sodium 135 mmol/L (136-145) L 01/09/23 09:02 Potassium 3.6 mmol/L (3.5-5.1) 01/09/23 09:02 Chloride 94 mmol/L (98-107) L 01/09/23 09:02 Carbon Dioxide 27 mmol/L (22-29) 01/09/23 09:02 Anion Gap 17.6 (5-19) 01/09/23 09:02 BUN 24 mg/dL (6-20) H 01/09/23 09:02 Creatinine 1.2 mg/dL (0.5-0.9) H 01/09/23 09:02 GFR Calculation 47.0 mL/min (90-130) L 01/09/23 09:02 Glucose 101 mg/dL (65-115) 01/09/23 09:02 Calculated Osmolality 284 mOsm/kg (285-295) L 01/09/23 09:02 Calcium 9.2 mg/dL (8.5-10.5) 01/09/23 09:02 Total Bilirubin 0.5 mg/dL (0.15-1.2) 01/09/23 09:02 AST 22 U/L (0-32) 01/09/23 09:02 ALT 18 U/L (0-33) 01/09/23 09:02 Alkaline Phosphatase 89 U/L (35-105) 01/09/23 09:02 Total Protein 6.6 g/dL (6.6-8.7) 01/09/23 09:02 Albumin 3.9 g/dL (3.5-5.2) 01/09/23 09:02 Globulin 2.7 g/dL (1.3-4.6) 01/09/23 09:02 Lipase 30 U/L (13-60) 01/09/23 09:02 Discharge Plan Discharge Patient Disposition: Home Clinical Impression: Constipation Condition: Stable Prescriptions: New Miralax 17 gram/dose powder 4 g PO DAILY Qty: 119 0RF No Action citalopram [Celexa] 40 mg tablet 40 mg PO QPM zolpidem 10 mg tablet 10 mg PO BEDTIME aspirin [Adult Low Dose Aspirin] 81 mg tablet,delayed release (DR/EC) 162 mg PO QAM Hold Instructions: Resume on 10/19/22. Until after percutaneous tube placed in the left kidney carvedilol 6.25 mg tablet 6.25 mg PO BID Qty: 180 2RF Hold Instructions: Resume on 01/12/23. Rx Instructions: must administer with a meal/food Vitamin B-12 50 mcg Tablet 50 mcg PO QAM montelukast 10 mg tablet 10 mg PO QAM gabapentin 100 mg capsule 100 mg PO TID furosemide [Lasix] 40 mg tablet 40 mg PO QAM potassium chloride 10 mEq tablet extended release 20 meq PO QAM Rx Instructions: Only take with Lasix spironolactone 25 mg tablet 25 mg PO QAM magnesium 200 mg tablet 200 mg PO QAM acetaminophen 500 mg Tablet 1,000 mg PO Q6H PRN (Reason: Pain) omeprazole 20 mg capsule,delayed release(DR/EC) 20 mg PO BID nitroglycerin [Nitrostat] 0.4 mg Tablet, Sublingual 0.4 mg SUBLINGUAL Q5M PRN (Reason: Chest Pain) Rx Instructions: do not exceed 3 doses per episode albuterol sulfate 90 mcg/actuation HFA aerosol inhaler 2 puff INHALATION QID PRN (Reason: Shortness Of Breath) midodrine 5 mg Tablet 5 mg PO BID PRN (Reason: Sbp less than 100) Qty: 20 0RF sodium bicarbonate 650 mg Tablet 650 mg PO TID Qty: 30 0RF Discharge Orders: Discharge ED (Routine); Ordered 01/09/23 Ordered By: Marycruz Wood Referrals: Mavis Peterson PA [Primary Care Provider] - Discharge Diet: Usual diet Discharge Activity: Increase activity as tolerated Patient Instructions: Constipation - Adult Activity Restrictions/Additional Instructions: Labs today do not show any signs of acute concerns within your abdomen. X-ray confirms significant constipation-most likely due to your recent hospitalization with a large amount of stool specifically in the area where you are experiencing your discomfort. As we discussed, we will start you on medication to help with this constipation. I recommend the next day or 2 you take 2 capfuls of the medication, each dissolved in 8 ounces of clear liquid. You also need to increase your clear fluid intake throughout the day for the next 48 hours as well. As discussed, the stool produced over the next first or second bowel movement may primarily be balls of stool as indicated on your x-ray before you start noticing more formed and normal stools. Coding Level of Care Code ED Medical Management Trainer for Wesley Herrera
[2023-01-09 09:22] LABS: Basophils # 0.1 10^3/uL (0.0-0.1); Basophils % 1.2 %; Eosinophils # 0.2 10^3/uL (0.0-0.8); Eosinophils % 1.9 %; Hematocrit 36.8 % (37.0-47.0); Hemoglobin 11.7 g/dL (11.5-15.3); Lymphocytes % 21.9 %; Mean Corpuscular HGB Conc 31.8 g/dL (30.0-36.0); Mean Corpuscular Hemoglobin 33.1 pg (28.0-34.0); Mean Corpuscular Volume 104.2 fl (81-99); Mean Platelet Volume 11.7 fL (7.4-10.4); Monocytes # 0.9 10^3/uL (0.2-0.9); Monocytes % 9.5 %; Neutrophils # 5.96 10^3/uL (1.8-7.7); Neutrophils % 65.2 %; Nucleated Red Blood Cells % 0 %; Platelet Count 247 10^3/cmm (130-400); Red Blood Count 3.53 10^6/uL (4.1-5.3); Red Cell Distribution Width 15.3 % (12.1-15.1); White Blood Count 9.1 10^3/uL (4.0-10.0)
[2023-01-09 09:31] LABS: Alanine Aminotransferase 18 U/L (0-33); Albumin Level 3.9 g/dL (3.5-5.2); Alkaline Phosphatase 89 U/L (35-105); Blood Urea Nitrogen 24 mg/dL (6-20); Calcium 9.2 mg/dL (8.5-10.5); Carbon Dioxide 27 mmol/L (22-29); Chloride 94 mmol/L (98-107); Globulin 2.7 g/dL (1.3-4.6); Glucose 101 mg/dL (65-115); Lipase 30 U/L (13-60); Osmolality Calculated 284 mOsm/kg (285-295); Sodium 135 mmol/L (136-145); Total Bilirubin 0.5 mg/dL (0.15-1.2); Total Protein 6.6 g/dL (6.6-8.7)
[2023-01-09] MEDS: ondansetron 2 mg/ML SDV 2 mL 4 MG IVP (09:36)
[2023-01-09 09:38] VITALS: BP 131/95; O2SAT 95
[2023-01-09 09:40] LABS: Anion Gap 17.6 (5-19); Aspartate Amino Transferase 22 U/L (0-32); Potassium 3.6 mmol/L (3.5-5.1)
--- NOTE | 2023-01-09 09:44 | XR_ITS ---
WS: [id number] XR KUB [id number] REASON FOR EXAM: periumbilical pain FINDINGS: Presumed left percutaneous nephrostomy is in place. Configuration and position appear appropriate. No free air or retroperitoneal air. The large amount of retained fecal material throughout the colon and rectum. No small bowel distentio n. Probable left ureteral vesicle junction calculus. XR/XR KUB [id number] IMPRESSION: No acute abnormality. Appendix was unobstructed/air-filled on CT scan 12/30/2022.
[2023-01-09 10:00] VITALS: BP 131/95; O2SAT 94
[2023-01-09 10:30] VITALS: BP 116/81; O2SAT 95
[2023-01-09 11:00] VITALS: BP 120/96; O2SAT 94
[2023-01-09] MEDS: dicyclomine 10 mg Capsule PO (11:37)
[2023-01-09 11:51] LABS: Urine Appearance Cloudy (CLEAR); Urine Color Yellow (Yellow); pH Urine 5 (5-7)
[2023-01-09 11:52] LABS: Add Urine Microscopic? YES; Bilirubin Urine 1+ (Negative); Blood Urine Trace (Negative); Glucose Urine UA Norm (Normal); Ketones Urine Negative (Negative); Leukocyte Esterase Urine 2+ (Negative); Nitrate Urine Negative (Negative); Protein Urine 1+ (Negative); Urobilinogen Urine Neg (Negative)
[2023-01-09 12:19] LABS: Add Urine Culture? No; Bacteria Urine TRACE /hpf; Squamous Epithelial Cell Urine 40-55 /hpf (0-5); WBC Urine 55-80 /hpf (0-5)
== END 2023-01-09 11:43 | disposition home or self-care (01) ==
PROVIDERS: Emergency Provider Physician Assistant; PCP Physician Assistant
DX: K59.00 Constipation, unspecified (principal); Z79.82 Long term (current) use of aspirin; F17.210 Nicotine dependence, cigarettes, uncomplicated; I13.0 Hypertensive heart and chronic kidney disease with heart failure and stage 1 through stage 4 chronic kidney disease, or unspecified chronic kidney disease; N18.9 Chronic kidney disease, unspecified; I50.9 Heart failure, unspecified; Z86.73 Personal history of transient ischemic attack (TIA), and cerebral infarction without residual deficits; Z95.810 Presence of automatic (implantable) cardiac defibrillator
CPT/HCPCS: 74018; 80053; 81001; 83690; 85025; 96374; 99284; J2405

== ENCOUNTER 2023-01-10 00:03 | Emergency (ER) | payer MEDICARE, MEDICAID, SELFPAY ==
[2023-01-10 00:04] VITALS: BP 113/76; PULSE 98; RESP 16; TEMP 37.3; O2SAT 97; BMI 26.6
--- NOTE | 2023-01-10 00:06 | XRR_ITS ---
PROCEDURE INFORMATION: Exam: XR Chest Exam date and time: 01/10/2023 12:11 AM Age: 53 years old Clinical indication: Prior surgery; Surgery type: Pacemaker; Patient HX: C/O worsening general weakness. History of chf. TECHNIQUE: Imaging protocol: Radiologic exam of the chest. Views: 1 view. COMPARISON: CR (CHEST, ) 01/08/2023 11:42 AM FINDINGS: Tubes, catheters and devices: There is an AICD with intact leads in good position. Lungs: Unremarkable. No consolidation. Pleural spaces: Unremarkable. No pleural effusion. No pneumothorax. Heart/Mediastinum: There is moderate cardiomegaly. Bones/joints: Unremarkable. XR/XR chest 1V portable [id number] IMPRESSION: 1. Moderate cardiomegaly. 2. No acute disease.
--- NOTE | 2023-01-10 00:08 | ED_ITS ---
HPI - Nausea/Vomiting/Diarrhea General: Chief complaint: Nausea/Vomiting/Diarrhea Stated complaint: weakness Time Seen by Provider: 01/10/23 00:06 Source: patient and EMS Mode of arrival: EMS Limitations: no limitations History of Present Illness: 53-year-old female who is very well-known to ER she has been here multiple times over the last few months she was seen here earlier today for constipation states that since she went home she did have a bowel movement states she has been having some vomiting now just feels generally weak. Denies any fever denies any worsening proving factors. Associated nausea: Yes Associated symtoms: Reports nausea; Denies chest pain, dysuria or headache(s) Review of Systems Const: Denies: fever(s), chills, body aches or change in appetite Eyes: Denies: blurry vision or eye discomfort ENMT: Denies: throat pain or dental pain Card: Denies: chest pain Resp: Denies: dyspnea GI: Reports: nausea and vomiting : Denies: dysuria Musc: Denies: neck pain or back pain Skin/Breast: Denies: rash Neuro: Denies: headache(s) Psych: Denies: depression Cedric/Lymph: Denies: easy bruising All/Imm: Denies: urticaria PFSH ED PFSH: Medical History Acute hypokalemia AICD discharge Chest pain CHF (congestive heart failure) CKD (chronic kidney disease) Closed intertrochanteric fracture of left hip History of recurrent UTIs History of TIA (transient ischemic attack) HTN (hypertension) Hydronephrosis, left Hypertension Hypokalemia Hypokalemia ICD (implantable cardioverter-defibrillator) in place Liver mass Mass of right lobe of liver ~3.5 x 4 cm, indeterminant, hypodense, first noted 11/2021 Nicotine dependence, cigarettes, uncomplicated Non-ischemic cardiomyopathy Nonischemic cardiomyopathy Specific etiology unknown, may have been viral or related to uncontrolled hypertension from her recollection Echocardiogram November 2021 with ejection fraction of 42% - 05/17/22 echo EF now 25% Obstructive pyelonephritis (~11/2021) Renal atrophy, left Syncope Urolithiasis Multi stone former. Complicated by at least 1 episode of obstructive pyelonephritis. Multiple procedures required to treat Ventricular tachycardia Surgical History Nephrostomy status S/P ureteral stent placement (~11/2021) Status post cholecystectomy Status post placement of cardiac pacemaker Family History Father , AT AGE 77 CAD (coronary artery disease) Cancer lung cancer Mother , AT AGE 60 Cancer OVARIAN Denies family history of Clotting disorder Anesthesia complication Bleeding disorder Social History Smoking and tobacco status: current every day smoker cigarettes Packs smoked per day: 0.5 Years cigarettes smoked: 45 Second hand smoke exposure: Yes Alcohol intake: current Lives independently: Yes Marital status: service: No Current occupational status: disabled Current gender identity: Female Physical Exam Const: COMMON NORMALS: no acute distress, patient oriented x3 and healthy appearing HENMT: COMMON NORMALS: normocephalic and atraumatic HEAD & SCALP: normocephalic and atraumatic Eye: COMMON NORMALS: Equal, round and reactive pupils present and EOMs intact bilaterally PUPIL: Yes Equal, round and reactive pupils present Neck/C-Spine: COMMON NORMALS: full ROM and supple Chest: COMMONS NORMALS: normal inspection of the chest and normal palpation of entire chest wall Resp: COMMON NORMALS: normal respiratory effort, No retractions, No use of accessory muscles and clear to auscultation bilaterally AUSCULTATION: clear to auscultation bilaterally Cardio: COMMON NORMALS: regular rate, regular rhythm and No murmurs present ( Cardio) RATE: regular rate RHYTHM: regular rhythm GI: COMMON NORMALS: Normal to inspection, nondistended, normoactive bowel sounds present, Soft to palpation, non-tender and no masses PALPATION: Yes Soft to palpation Extremity: COMMON NORMALS: normal to inspection and full ROM Neuro: COMMON NORMALS: patient oriented x3, moves all extremities and no focal motor deficits Psych: COMMON NORMALS: mental status grossly normal, Normal thought process present and cooperative THOUGHT PROCESS: Normal thought process present Skin: COMMON NORMALS: no rashes or lesions noted and no wounds GENERAL SKIN EXAM: no rashes or lesions noted Course Vital Signs: Vital signs: Vital Signs Temperature 99.1 F 01/10/23 00:04 Pulse Rate 80 01/10/23 00:44 Respiratory Rate 18 01/10/23 00:44 Blood Pressure 125/88 01/10/23 00:44 Pulse Oximetry 91 01/10/23 00:44 Oxygen Delivery Me thod 01/10/23 00:44 MDM - Nausea/Vomiting/Diarrhea Medical Decision Making Patient presents here with nausea vomiting that is improved here with Zofran blo od work here is all normal abdominal exam is benign she is stable for discharge she is to follow-up PCP and return if worsening. Lab Data 01/10/23 00:15 01/10/23 00:15 Laboratory Results WBC 8.2 10^3/uL (4.0-10.0) 01/10/23 00:15 RBC 3.35 10^6/uL (4.1-5.3) L 01/10/23 00:15 Hgb 11.3 g/dL (11.5-15.3) L 01/10/23 00:15 Hct 36.0 % (37.0-47.0) L 01/10/23 00:15 MCV 107.5 fl (81-99) H 01/10/23 00:15 MCH 33.7 pg (28.0-34.0) 01/10/23 00:15 MCHC 31.4 g/dL (30.0-36.0) 01/10/23 00:15 RDW 15.2 % (12.1-15.1) H 01/10/23 00:15 Plt Count 203 10^3/cmm (130-400) 01/10/23 00:15 MPV 11.0 fL (7.4-10.4) H 01/10/23 00:15 Neut % (Auto) 70.2 % 01/10/23 00:15 Lymph % (Auto) 19.2 % 01/10/23 00:15 [place] % (Auto) 8.0 % 01/10/23 00:15 Eos % (Auto) 0.9 % 01/10/23 00:15 Baso % (Auto) 1.2 % 01/10/23 00:15 Neut # (Auto) 5.78 10^3/uL (1.8-7.7) 01/10/23 00:15 Lymph # (Auto) 1.6 10^3/uL (0.8-4.8) 01/10/23 00:15 [place] # (Auto) 0.7 10^3/uL (0.2-0.9) 01/10/23 00:15 Eos # (Auto) 0.1 10^3/uL (0.0-0.8) 01/10/23 00:15 Baso # (Auto) 0.1 10^3/uL (0.0-0.1) 01/10/23 00:15 Nucleated RBC % (auto) 0 % 01/10/23 00:15 Nucleated RBCs # 0.0 /100WBC 01/10/23 00:15 Sodium 136 mmol/L (136-145) 01/10/23 00:15 Potassium 3.1 mmol/L (3.5-5.1) L 01/10/23 00:15 Chloride 97 mmol/L (98-107) L 01/10/23 00:15 Carbon Dioxide 25 mmol/L (22-29) 01/10/23 00:15 Anion Gap 17.1 (5-19) 01/10/23 00:15 BUN 24 mg/dL (6-20) H 01/10/23 00:15 Creatinine 1.2 mg/dL (0.5-0.9) H 01/10/23 00:15 GFR Calculation 47.0 mL/min (90-130) L 01/10/23 00:15 Glucose 112 mg/dL (65-115) 01/10/23 00:15 Calculated Osmolality 287 mOsm/kg (285-295) 01/10/23 00:15 Calcium 8.8 mg/dL (8.5-10.5) 01/10/23 00:15 Total Bilirubin 0.6 mg/dL (0.15-1.2) 01/10/23 00:15 AST 16 U/L (0-32) 01/10/23 00:15 ALT 15 U/L (0-33) 01/10/23 00:15 Alkaline Phosphatase 72 U/L (35-105) 01/10/23 00:15 Total Protein 6.4 g/dL (6.6-8.7) L 01/10/23 00:15 Albumin 3.6 g/dL (3.5-5.2) 01/10/23 00:15 Globulin 2.8 g/dL (1.3-4.6) 01/10/23 00:15 Lipase 20 U/L (13-60) 01/10/23 00:15 Discharge Plan Discharge Patient Disposition: Home Clinical Impression: Vomiting Condition: Stable Prescriptions: New ondansetron 4 mg tablet,disintegrating 4 mg PO Q6H PRN (Reason: nausea and vomiting) Qty: 14 0RF No Action citalopram [Celexa] 40 mg tablet 40 mg PO QPM zolpidem 10 mg tablet 10 mg PO BEDTIME aspirin [Adult Low Dose Aspirin] 81 mg tablet,delayed release (DR/EC) 162 mg PO QAM Hold Instructions: Resume on 10/19/22. Until after percutaneous tube placed in the left kidney carvedilol 6.25 mg tablet 6.25 mg PO BID Qty: 180 2RF Hold Instructions: Resume on 01/12/23. Rx Instructions: must administer with a meal/food Vitamin B-12 50 mcg Tablet 50 mcg PO QAM montelukast 10 mg tablet 10 mg PO QAM gabapentin 100 mg capsule 100 mg PO TID furosemide [Lasix] 40 mg tablet 40 mg PO QAM potassium chloride 10 mEq tablet extended release 20 meq PO QAM Rx Instructions: Only take with Lasix spironolactone 25 mg tablet 25 mg PO QAM magnesium 200 mg tablet 200 mg PO QAM Miralax 17 gram/dose powder 4 g PO DAILY Qty: 119 0RF acetaminophen 500 mg Tablet 1,000 mg PO Q6H PRN (Reason: Pain) omeprazole 20 mg capsule,delayed release(DR/EC) 20 mg PO BID nitroglycerin [Nitrostat] 0.4 mg Tablet, Sublingual 0.4 mg SUBLINGUAL Q5M PRN (Reason: Chest Pain) Rx Instructions: do not exceed 3 doses per episode albuterol sulfate 90 mcg/actuation HFA aerosol inhaler 2 puff INHALATION QID PRN (Reason: Shortness Of Breath) midodrine 5 mg Tablet 5 mg PO BID PRN (Reason: Sbp less than 100) Qty: 20 0RF sodium bicarbonate 650 mg Tablet 650 mg PO TID Qty: 30 0RF Discharge Orders: Discharge ED (Routine); Ordered 01/10/23 Ordered By: Marc Mora Referrals: Mavis Peterson PA [Primary Care Provider] - 1-3 days Discharge Diet: Advance as tolerated Discharge Activity: Resume usual activity Patient Instructions: Acute Nausea and Vomiting (ED) Coding Level of Care Code ED Catering Manager for Wesley Herrera
[2023-01-10 00:19] VITALS: O2SAT 93
[2023-01-10 00:23] LABS: Basophils # 0.1 10^3/uL (0.0-0.1); Basophils % 1.2 %; Eosinophils # 0.1 10^3/uL (0.0-0.8); Eosinophils % 0.9 %; Hemoglobin 11.3 g/dL (11.5-15.3); Lymphocytes # 1.6 10^3/uL (0.8-4.8); Lymphocytes % 19.2 %; Mean Corpuscular HGB Conc 31.4 g/dL (30.0-36.0); Mean Corpuscular Hemoglobin 33.7 pg (28.0-34.0); Mean Corpuscular Volume 107.5 fl (81-99); Monocytes # 0.7 10^3/uL (0.2-0.9); Neutrophils # 5.78 10^3/uL (1.8-7.7); Neutrophils % 70.2 %; Nucleated Red Blood Cells % 0 %; Platelet Count 203 10^3/cmm (130-400); Red Blood Count 3.35 10^6/uL (4.1-5.3); Red Cell Distribution Width 15.2 % (12.1-15.1); White Blood Count 8.2 10^3/uL (4.0-10.0)
[2023-01-10 00:42] LABS: Alanine Aminotransferase 15 U/L (0-33); Albumin Level 3.6 g/dL (3.5-5.2); Alkaline Phosphatase 72 U/L (35-105); Anion Gap 17.1 (5-19); Aspartate Amino Transferase 16 U/L (0-32); Blood Urea Nitrogen 24 mg/dL (6-20); Calcium 8.8 mg/dL (8.5-10.5); Carbon Dioxide 25 mmol/L (22-29); Chloride 97 mmol/L (98-107); Globulin 2.8 g/dL (1.3-4.6); Glucose 112 mg/dL (65-115); Osmolality Calculated 287 mOsm/kg (285-295); Potassium 3.1 mmol/L (3.5-5.1); Sodium 136 mmol/L (136-145); Total Bilirubin 0.6 mg/dL (0.15-1.2); Total Protein 6.4 g/dL (6.6-8.7)
[2023-01-10] MEDS: ondansetron 2 mg/ML SDV 2 mL 4 MG IVP (00:42)
[2023-01-10 00:44] VITALS: BP 125/88; PULSE 80; RESP 18; O2SAT 91
[2023-01-10 01:04] LABS: Lipase 20 U/L (13-60)
[2023-01-10] MEDS: potassium chloride ER 20 mEq Tablet 40 MEQ PO (01:13)
[2023-01-10 01:23] VITALS: BP 124/86; PULSE 94; RESP 18; O2SAT 91
== END 2023-01-10 01:23 | disposition home or self-care (01) ==
PROVIDERS: Emergency Provider Emergency Medicine; PCP Physician Assistant
DX: R11.11 Vomiting without nausea (principal); Z79.82 Long term (current) use of aspirin; I13.0 Hypertensive heart and chronic kidney disease with heart failure and stage 1 through stage 4 chronic kidney disease, or unspecified chronic kidney disease; N18.9 Chronic kidney disease, unspecified; I50.9 Heart failure, unspecified; Z86.73 Personal history of transient ischemic attack (TIA), and cerebral infarction without residual deficits; Z95.810 Presence of automatic (implantable) cardiac defibrillator; F17.210 Nicotine dependence, cigarettes, uncomplicated
CPT/HCPCS: 71045; 80053; 83690; 85025; 96374; 99284; J2405

== ENCOUNTER 2023-01-10 11:53 | Inpatient (IN) | payer MEDICARE, MEDICAID, SELFPAY ==
[2023-01-10] VITALS (128 sets, daily range): BP systolic 96–117; BP diastolic 72–85; PULSE 70–96; RESP 12–34; TEMP 36.5; O2SAT 87–100; BMI 26.6; BMI 26.4
--- NOTE | 2023-01-10 11:59 | ECG_ITS ---
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 Measurements Intervals [place] Rate: 101 P: 22 WI: 162 QRS: -59 QRSD: 134 T: 98 QT: 303 QTc: 394 Interpretive Statements SINUS TACHYCARDIA WITH FREQUENT VENTRICULAR PREMATURE COMPLEXES LEFT AXIS DEVIATION [QRS AXIS < -30] INTRAVENTRICULAR CONDUCTION DELAY [130+ ms QRS DURATION] LEFT VENTRICULAR HYPERTROPHY AND ST-T CHANGE [VOLTAGE CRITERIA PLUS ST/T ABNORMALITY] POSSIBLE ANTERIOR MYOCARDIAL INFARCTION , OF INDETERMINATE AGE [30 ms Q WAVE IN V3/V4, OR R < 0.2 mV IN V4] INTERPRETATION BASED ON A DEFAULT AGE OF 40 YEARS Compared to ECG 01/08/2023 11:39:37 Ventricular premature complex(es) now present ST (T wave) deviation now present Myocardial infarct finding still present Electronically Signed On 01-10-2023 17:27:53 CDT by Pola Ferrera M.D. [id number]
--- NOTE | 2023-01-10 12:03 | ECG_ITS ---
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 Measurements Intervals [place] Rate: 94 P: 61 NV: 157 QRS: -58 QRSD: 134 T: 92 QT: 351 QTc: 439 Interpretive Statements SINUS RHYTHM LEFT AXIS DEVIATION [QRS AXIS < -30] INTRAVENTRICULAR CONDUCTION DELAY [130+ ms QRS DURATION] POSSIBLE ANTERIOR MYOCARDIAL INFARCTION , OF INDETERMINATE AGE [30 ms Q WAVE IN V3/V4, OR R < 0.2 mV IN V4] INTERPRETATION BASED ON A DEFAULT AGE OF 40 YEARS Compared to ECG 01/08/2023 11:39:37 Left-axis deviation now present Myocardial infarct finding still present Electronically Signed On 01-10-2023 17:28:05 CDT by Pola Ferrera M.D. [id number] f
--- NOTE | 2023-01-10 12:04 | PC.NURSE ---
pt arrived to person, place, and time. pt states she is a full code and does want CPR if necessary. shortly after, pt noted to go into VIFB rhythm, her internal defibrillator went off at 1203 and 1205. NRB placed on pt 15L and respiratory called to room. Unable to obtain a temperature due to pt diaphoretic and difficulty obtaining a blood pressure.
[2023-01-10] MEDS: amiodarone 50 mg/mL SDV 3 mL 150 MG IVP (12:11)
[2023-01-10] MEDS: morphine 4 mg/mL SDV 1 mL IVP ×2 (12:11→12:40)
[2023-01-10 12:15] LABS: ABG PCO2 24.3 mmHg (35-45); ABG PH Result 7.51 (7.35-7.45); Arterial Blood Gas Hematocrit 34.1 % (37-47); Base Excess ABG -2.2 mmol/L (-2.0-2.0); Blood Gas Allen Test Pos; Blood Gas Operator Identificat WALCI; Blood Gas Sample Site Radial, left; Blood Gas Sample Type Arterial; Carboxyhemoglobin 1.8 %THgb (0.4-20.1); HCO3 ABG 19.5 mmol/L (22-26); HGB O2 Sat 97.1 % (95-100); Ionized Calcium Level - ABG 1.1 mmol/L (1.1-1.4); Methemoglobin 0.5 % (0.4-1.5); Oxygen Device NRB; Oxygen Saturation ABG 99.4; Potassium Level - ABG 3.8 mmol/L (3.5-5.0); Total Hemoglobin 11.1 g/dL (12-16)
[2023-01-10 12:19] LABS: Basophils # 0.1 10^3/uL (0.0-0.1); Basophils % 1.1 %; Eosinophils % 0.4 %; Hematocrit 33.1 % (37.0-47.0); Hemoglobin 10.4 g/dL (11.5-15.3); Lymphocytes # 2.1 10^3/uL (0.8-4.8); Lymphocytes % 26.6 %; Mean Corpuscular HGB Conc 31.4 g/dL (30.0-36.0); Mean Corpuscular Hemoglobin 33.3 pg (28.0-34.0); Mean Corpuscular Volume 106.1 fl (81-99); Mean Platelet Volume 11.5 fL (7.4-10.4); Monocytes # 0.8 10^3/uL (0.2-0.9); Monocytes % 10.2 %; Neutrophils # 4.81 10^3/uL (1.8-7.7); Neutrophils % 61.1 %; Nucleated Red Blood Cells % 0 %; Platelet Count 194 10^3/cmm (130-400); Red Blood Count 3.12 10^6/uL (4.1-5.3); Red Cell Distribution Width 15.5 % (12.1-15.1); White Blood Count 7.9 10^3/uL (4.0-10.0)
--- NOTE | 2023-01-10 12:19 | ED_ITS ---
HPI - Chest Pain General: Chief Complaint: Chest Pain Stated Complaint: defib gone off 5 times History of Present Illness: Patient presents to the ER by EMS with complaints of weakness and chest pain. Patient complains of chest pain and weakness to the point of unable to get up off the floor. When EMS got there she was pale diaphoretic and still on the floor. EMS put her in the ambulance and on route her internal defibrillator shocked her 5x4 episodes of V-fib. EMS gave her 4 mg of Zofran for nausea. Patient has been seen in the ER approximately 3 times in the last 3 days and was just released from the hospital on the first of this month for chest pain. Per EMS patient has a implantable defibrillator that is approximately 15 years old and was implanted by Dr. Basilio in [place] complaint: chest pain Pertinent past history: other (History of very low ejection fraction with implantable defibrillator) Onset (ago): hour(s) (Within the last couple hours) Timing of current episode: episodic Prior episodes: Yes Onset: during rest Pain location: left chest Severity: similar to previous episodes Quality: aching and heaviness Relieving factors: nothing Associated symptoms: Reports diaphoresis, dyspnea, nausea and vomiting Treatment prior to arrival: defibrillation and other (Zofran) Review of Systems General: Reports: ROS unobtainable due to medical condition Const: Reports: diaphoresis Resp: Reports: dyspnea GI: Reports: nausea and vomiting PFS ED PFSH: Medical History Acute hypokalemia AICD discharge Chest pain CHF (congestive heart failure) CKD (chronic kidney disease) Closed intertrochanteric fracture of left hip History of recurrent UTIs History of TIA (transient ischemic attack) HTN (hypertension) Hydronephrosis, left Hypertension Hypokalemia Hypokalemia ICD (implantable cardioverter-defibrillator) in place Liver mass Mass of right lobe of liver ~3.5 x 4 cm, indeterminant, hypodense, first noted 11/2021 Nicotine dependence, cigarettes, uncomplicated Non-ischemic cardiomyopathy Nonischemic cardiomyopathy Specific etiology unknown, may have been viral or related to uncontrolled hypertension from her recollection Echocardiogram November 2021 with ejection fraction of 42% - 05/17/22 echo EF now 25% Obstructive pyelonephritis (~11/2021) Renal atrophy, left Syncope Urolithiasis Multi stone former. Complicated by at least 1 episode of obstructive pyelonephritis. Multiple procedures required to treat Ventricular tachycardia Surgical History Nephrostomy status S/P ureteral stent placement (~11/2021) Status post cholecystectomy Status post placement of cardiac pacemaker Family History Father , AT AGE 77 CAD (coronary artery disease) Cancer lung cancer Mother , AT AGE 60 Cancer OVARIAN Denies family history of Clotting disorder Anesthesia complication Bleeding disorder Social History Smoking and tobacco status: current every day smoker cigarettes Packs smoked per day: 0.5 Years cigarettes smoked: 45 Second hand smoke exposure: Yes Alcohol intake: current Lives independently: Yes Marital status: service: No Current occupational status: disabled Current gender identity: Female Physical Exam Const: COMMON NORMALS: alert GENERAL APPEARANCE: in distress, anxious, appears older than stated age and diaphoretic NUTRITIONAL APPEARANCE: overweight ORIENTATION/CONSCIOUSNESS: Yes awake, Yes oriented to person, Yes oriented to place and Yes oriented to time HENMT: COMMON NORMALS: normocephalic, atraumatic, hearing grossly normal bilaterally, external ears normal, Normal external nose present and moist oral mucous membranes HEAD & SCALP: normocephalic and atraumatic NOSE: Normal external nose present EXTERNAL EAR: Yes external ears normal Eye: COMMON NORMALS: Equal, round and reactive pupils present, EOMs intact bilaterally, conjunctivae normal and no scleral icterus CONJUNCTIVA: Yes conjunctivae normal PUPIL: Yes Equal, round and reactive pupils present Chest: COMMONS NORMALS: normal inspection of the chest OTHER: Tenderness to palpation of chest anterior wall left greater than right Resp: COMMON NORMALS: normal respiratory effort, No retractions, No use of accessory muscles and clear to auscultation bilaterally AUSCULTATION: clear to auscultation bilaterally Cardio: COMMON NORMALS: regular rate, regular rhythm, S1 normal heart sound present and S2 normal heart sound present RATE: regular rate RHYTHM: regular rhythm HEART SOUNDS: S1 normal heart sound present and S2 normal heart sound present GI: COMMON NORMALS: Normal to inspection, nondistended, normoactive bowel so unds present, Soft to palpation and No hepatosplenomegaly present PALPATION: Yes Soft to palpation and Yes No hepatosplenomegaly present OTHER: Diffuse tenderness to palpation, multiple ecchymotic areas secondary to Lovenox use during last hospitalization Extremity: COMMON NORMALS: normal to inspection and no pedal edema Neuro: SENSORIUM/ORIENTATION: Yes alert, Yes oriented to person, Yes oriented to place and Yes oriented to time Psych: COMMON NORMALS: mental status grossly normal, Normal thought process present, cooperative, normal affect and speech normal SPEECH: Yes normal speech THOUGHT PROCESS: Normal thought process present Skin: NARRATIVE SKIN EXAM: Diaphoretic Course Vital Signs: Vital signs: Vital Signs Pulse Rate 84 01/10/23 13:00 Respiratory Rate 15 01/10/23 12:40 Blood Pressure 104/74 01/10/23 13:13 Pulse Oximetry 100 01/10/23 13:00 Oxygen Delivery Me thod 01/10/23 12:00 MDM - Chest Pain Medical Decision Making Patient presents to the ER by EMS with complaints of generalized overall weakness as well as chest pain. When the EMS arrived patient was on the floor complaining of chest pain and pale and diaphoretic. EMS is on route to the ER patient went into spontaneous V-fib x5 resulting in shocks x5 from her defibrillator. Patient went into spontaneous V-fib in the emergency room her internal pacemaker fibrillator fired at least twice. Patient went back into normal perfusing sinus rhythm. Patient was given 150 mg amiodarone IO and a total of 8 mg morphine for pain, Zofran 4 mg for nausea lab work was reviewed as well as lab work from earlier this morning and yesterday. Patient's baseline troponin was 19. Checks X x-ray was reviewed, EKG, ABG without the patient would benefit from inpatient hospitalization stay. Dr. Dejesus was consulted and agreed to admit the patient to the ICU. She did want us to consult cardiology, Dr. Hill is on, to see if he had any further recommendations. Differential Diagnosis Likely cardiac arrest and sudden cardiac ; Unlikely acute massive pulmonary embolism, acute respiratory failure or acute myocardial infarction Medical Records I reviewed the patient's medical records. Lab Data I reviewed the patient's lab results. 01/10/23 12:00 01/10/23 12:00 Laboratory Results WBC 7.9 10^3/uL (4.0-10.0) 01/10/23 12:00 RBC 3.12 10^6/uL (4.1-5.3) L 01/10/23 12:00 Hgb 10.4 g/dL (11.5-15.3) L 01/10/23 12:00 Hct 33.1 % (37.0-47.0) L 01/10/23 12:00 MCV 106.1 fl (81-99) H 01/10/23 12:00 MCH 33.3 pg (28.0-34.0) 01/10/23 12:00 MCHC 31.4 g/dL (30.0-36.0) 01/10/23 12:00 RDW 15.5 % (12.1-15.1) H 01/10/23 12:00 Plt Count 194 10^3/cmm (130-400) 01/10/23 12:00 MPV 11.5 fL (7.4-10.4) H 01/10/23 12:00 Neut % (Auto) 61.1 % 01/10/23 12:00 Lymph % (Auto) 26.6 % 01/10/23 12:00 [place] % (Auto) 10.2 % 01/10/23 12:00 Eos % (Auto) 0.4 % 01/10/23 12:00 Baso % (Auto) 1.1 % 01/10/23 12:00 Neut # (Auto) 4.81 10^3/uL (1.8-7.7) 01/10/23 12:00 Lymph # (Auto) 2.1 10^3/uL (0.8-4.8) 01/10/23 12:00 [place] # (Auto) 0.8 10^3/uL (0.2-0.9) 01/10/23 12:00 Eos # (Auto) 0.0 10^3/uL (0.0-0.8) 01/10/23 12:00 Baso # (Auto) 0.1 10^3/uL (0.0-0.1) 01/10/23 12:00 Nucleated RBC % (auto) 0 % 01/10/23 12:00 Nucleated RBCs # 0.0 /100WBC 01/10/23 12:00 PT 16.10 SECONDS (12.1-14.9) H 01/10/23 12:00 INR 1.25 (0.8-1.2) H 01/10/23 12:00 Specimen Type Arterial 01/10/23 12:04 Sample Site Radial, left 01/10/23 12:04 ABG pH 7.51 (7.35-7.45) H 01/10/23 12:04 ABG pCO2 24.3 mmHg (35-45) L 01/10/23 12:04 ABG pO2 251.0 mmHg (80.0-100.0) H 01/10/23 12:04 ABG HCO3 19.5 mmol/L (22-26) L 01/10/23 12:04 ABG O2 Saturation 99.4 01/10/23 12:04 ABG Base Excess -2.2 mmol/L (-2.0-2.0) L 01/10/23 12:04 Michi Test Pos 01/10/23 12:04 A-a O2 Gradient Not Reportable 01/10/23 12:04 Hematocrit 34.1 % (37-47) L 01/10/23 12:04 Hgb O2 Saturation 97.1 % (95-100) 01/10/23 12:04 Carboxyhemoglobin 1.8 %THgb (0.4-20.1) 01/10/23 12:04 Methemoglobin 0.5 % (0.4-1.5) 01/10/23 12:04 Total Hemoglobin 11.1 g/dL (12-16) L 01/10/23 12:04 Sodium 138.0 mmol/L (131-143) 01/10/23 12:04 Potassium 3.8 mmol/L (3.5-5.0) 01/10/23 12:04 Glucose 179.0 mg/dL (70-115) H 01/10/23 12:04 Ionized Calcium 1.1 mmol/L (1.1-1.4) 01/10/23 12:04 O2 Delivery Device Nrb 01/10/23 12:04 O2 Liters/Min 15.0 % 01/10/23 12:04 Traveling Inventory Associate ID [place] 01/10/23 12:04 Sodium 139 mmol/L (136-145) 01/10/23 12:00 Potassium 3.7 mmol/L (3.5-5.1) 01/10/23 12:00 Chloride 100 mmol/L (98-107) 01/10/23 12:00 Carbon Dioxide 19 mmol/L (22-29) L 01/10/23 12:00 Anion Gap 23.7 (5-19) H 01/10/23 12:00 BUN 23 mg/dL (6-20) H 01/10/23 12:00 Creatinine 1.3 mg/dL (0.5-0.9) H 01/10/23 12:00 GFR Calculation 42.8 mL/min (90-130) L 01/10/23 12:00 Glucose 147 mg/dL (65-115) H 01/10/23 12:00 Calculated Osmolality 294 mOsm/kg (285-295) 01/10/23 12:00 Calcium 8.5 mg/dL (8.5-10.5) 01/10/23 12:00 Magnesium 2.1 mg/dL (1.7-2.3) 01/10/23 12:00 Total Bilirubin 0.7 mg/dL (0.15-1.2) 01/10/23 12:00 AST 19 U/L (0-32) 01/10/23 12:00 ALT 14 U/L (0-33) 01/10/23 12:00 Alkaline Phosphatase 81 U/L (35-105) 01/10/23 12:00 Troponin T Baseline 19 ng/L (0-10) H 01/10/23 12:00 NT-Pro-B Natriuret Pep 11959 pg/mL (0-125) H 01/10/23 12:00 Total Protein 5.8 g/dL (6.6-8.7) L 01/10/23 12:00 Albumin 3.5 g/dL (3.5-5.2) 01/10/23 12:00 Globulin 2.3 g/dL (1.3-4.6) 01/10/23 12:00 Lipase 22 U/L (13-60) 01/10/23 12:00 EKG Data EKG 1: I personally reviewed and interpreted this EKG as follows: EKG interpretation date: 01/10/23 EKG interpretation time: 11:58 Interpretation: EKG showed normal sinus rhythm at 84 bpm, HI interval 157, QRS duration 130, QTc of 460, possible left atrial enlargement, possible right ventricular conduction delay, possible left ventricular hypertrophy, possible anteroseptal ID of indeterminate age as Q waves in V1 through V4. EKG 2: I personally reviewed and interpreted this EKG as follows: EKG interpretation date: 01/10/23 EKG interpretation time: 14:06 Prior EKG tracings: available for review Interpretation: EKG showed normal sinus rhythm at 83 bpm, HI interval 164, QRS duration 138, QTc of 468, left axis deviation, intraventricular conduction delay, possible anterior ID of indeterminate origin Q waves in V3 4 Discharge Plan Discharge Patient Disposition: Admitted As Inpatient Clinical Impression: Idiopathic ventricular fibrillation, Defibrillator discharge, Weakness Chest pain Qualifiers: Chest pain type: unspecified Qualified Code(s): R07.9 - Chest pain, unspecified Condition: Stable Coding Level of Care Code ED Senior Front End Engineer for Wesley Herrera
--- NOTE | 2023-01-10 12:30 | PC.NURSE ---
Patient's life partner is at the bedside at this time. She was given update on patient. No questions at this time.
--- NOTE | 2023-01-10 12:34 | PC.NURSE ---
Patient's internal defib shocked patient at 12:03 and 12:05. Pt is still diaphoretic; however, she is not as pale, her rhythm is now stable at 85bpm NSR on monitor. Pt was given 150mg IVP amiodarone and 8mg total of morphine, 4mg zofran
[2023-01-10] MEDS: ondansetron 2 mg/ML SDV 2 mL 4 MG IVP ×2 (12:40→18:50)
[2023-01-10 12:42] LABS: INR 1.25 (0.8-1.2)
[2023-01-10 12:53] LABS: Troponin(5th) Baseline 19 ng/L (0-10)
[2023-01-10 13:01] LABS: Alanine Aminotransferase 14 U/L (0-33); Albumin Level 3.5 g/dL (3.5-5.2); Alkaline Phosphatase 81 U/L (35-105); Aspartate Amino Transferase 19 U/L (0-32); Blood Urea Nitrogen 23 mg/dL (6-20); Calcium 8.5 mg/dL (8.5-10.5); Carbon Dioxide 19 mmol/L (22-29); Chloride 100 mmol/L (98-107); Globulin 2.3 g/dL (1.3-4.6); Glomerular Filtration Rate 42.8 mL/min (90-130); Glucose 147 mg/dL (65-115); Lipase 22 U/L (13-60); Magnesium 2.1 mg/dL (1.7-2.3); NT Pro B Type Natriuretic Pept 14434 pg/mL (0-125); Osmolality Calculated 294 mOsm/kg (285-295); Sodium 139 mmol/L (136-145); Total Bilirubin 0.7 mg/dL (0.15-1.2); Total Protein 5.8 g/dL (6.6-8.7)
[2023-01-10 13:02] LABS: Anion Gap 23.7 (5-19); Potassium 3.7 mmol/L (3.5-5.1)
--- NOTE | 2023-01-10 13:13 | PC.NURSE ---
Patient is resting in bed. Pt remains comfortable and is not moaning in pain as before. vital signs are stable. Pt still has blow by oxygen. Pt's girlfriend and sister at bedside. Given update on waiting for lab results and continuing to observe patient's heartrate. They verbalized understanding and denied any questions at this time.
--- NOTE | 2023-01-10 14:06 | ECG_ITS ---
[facility] Test Date: 2023-01-10 Pat Name: Elena Pulliam Department: Room: Gender: Female Compliance Review Officer: : 1970 Requested By: Fredis Romero Order Number: [id number] Arlette MD: Pola Ferrera M.D. Measurements Intervals [place] Rate: 83 P: 35 HI: 164 QRS: -52 QRSD: 138 T: 73 QT: 428 QTc: 505 Interpretive Statements SINUS RHYTHM LEFT AXIS DEVIATION [QRS AXIS < -30] INTRAVENTRICULAR CONDUCTION DELAY [130+ ms QRS DURATION] POSSIBLE LEFT VENTRICULAR HYPERTROPHY [VOLTAGE CRITERIA PLUS LAE OR QRS WIDENING] POSSIBLE ANTERIOR MYOCARDIAL INFARCTION , OF INDETERMINATE AGE [30 ms Q WAVE IN V3/V4, OR R < 0.2 mV IN V4] Compared to ECG 01/10/2023 12:15:50 Sinus tachycardia no longer present Ventricular premature complex(es) no longer present ST (T wave) deviation no longer present Myocardial infarct finding still present Electronically Signed On 01-10-2023 17:29:57 CDT by oPla Ferrera M.D. [email or web address] [email or web address] point mature adult care unitNeodyne Biosciencesmercy health – the [facility] hospital.viseto/store/[id number]
[2023-01-10 14:53] LABS: Troponin 5 2HR 26.81 ng/L (0-10)
[2023-01-10 14:54] LABS: Troponin 5 2HR Delta 7.81 ABS# (0-10)
--- NOTE | 2023-01-10 17:40 | ECG_ITS ---
[facility] Test Date: 2023-01-10 Pat Name: Elena Pulliam Department: Room: [facility] Gender: Female Loop Tender: : 1970 Requested By: Fredis Romero Order Number: [id number] Arlette MD: Pola Ferrera M.D. Measurements Intervals [place] Rate: 93 P: 68 NM: 153 QRS: -50 QRSD: 137 T: 85 QT: 445 QTc: 556 Interpretive Statements SINUS RHYTHM WITH OCCASIONAL VENTRICULAR PREMATURE COMPLEXES LEFT AXIS DEVIATION [QRS AXIS < -30] INTRAVENTRICULAR CONDUCTION DELAY [130+ ms QRS DURATION] POSSIBLE ANTERIOR MYOCARDIAL INFARCTION , OF INDETERMINATE AGE [30 ms Q WAVE IN V3/V4, OR R < 0.2 mV IN V4] Compared to ECG 01/10/2023 14:06:33 Ventricular premature complex(es) now present Myocardial infarct finding still present Electronically Signed On 01-11-2023 8:09:40 CDT by Pola Ferrera M.D. [email or web address] Exchangeprov[facility] st[facility].[email or web address]/store/[id number]
--- NOTE | 2023-01-10 17:48 | P.HP_ITS ---
Providers/Chief Complaint Admitting Physician: Beryl Dejesus MD Primary Care Provider: Mavis Peterson Chief Complaint: defib gone off 5 times History of Present Illness Elena Pulliam is a 53 year old female ?with past medical history of CHF with reduced ejection fraction, CKD, recurrent UTI, TIA, hypertension, mass and liver, obstructive pyelonephritis, urolithiasis, nonischemic cardiomyopathy, nephrostomy tubes, recently discharged from the hospital on January 07, 2023 when she was admitted for a CHF exacerbation. She was advised to start taking midodrine 5 mg twice daily. She presents to the emergency room today with complaints of her AICD firing. She complained of generalized weakness and chest pain, she states that she was unable to get off the floor. When EMS went to pick her up she was noted to be pale and diaphoretic, noted to be in V-fib, her AICD shocked her 4-5 times in route. She got 8 mg of IV morphine after which she was somewhat drowsy but able to be awakened in the emergency room. After presenting to the emergency room she had 2 similar episodes and she was started on amiodarone 150 mg bolus.. Review of recent records shows that patient was admitted here in early December 2022 with complaints of V-fib and AICD firing at which time she was noted to be hypokalemic and hypomagnesemic. Her symptoms resolved after repleting her electrolytes appropriately. Today her potassium is at 3.7, magnesium is adequate at 2.1. Currently complains of chest discomfort Review of Systems General: Reports: 10 or more systems reviewed and unremarkable except in HPI and below Const: Denies: fever(s), chills or body aches Eyes: Denies: change in vision, blurry vision or photophobia ENMT: Reports: hoarseness; Denies: throat pain, enlarged tonsils, odynophagia or nasal congestion Card: Denies: chest pain, palpitations, irregular heart rhythm, edema, swelli ng of feet/ankles, lightheadedness, pre-syncope, dyspnea on exertion or orthopnea Resp: Denies: dyspnea, productive cough, non-productive cough, wheezing, stridor, pain on inspiration, change in phlegm color, hemoptysis or chest congestion GI: Denies: abdominal pain, nausea, vomiting, hematemesis, coffee ground emesis, dysphagia, heartburn, diarrhea, constipation, GI cramping, change in stool character, hematochezia or melena : Denies: flank pain, difficulty voiding, dysuria, urinary frequency, urinary urgency, urinary hesitancy or hematuria Musc: Denies: neck pain, back pain, extremity pain, joint swelling, joint warmth or deformity Neuro: Denies: headache(s), numbness in extremities, weakness in extremities, sensory changes, difficulty walking, frequent falls, dizziness, vertigo, behavioral changes, Slurred speech present or seizure-like activity Psych: Denies: anxiety, depression, suicidal ideation or homicidal ideation Endo: Denies: polyuria, polydipsia, tired all the time, cold intolerance or hot flashes Cedric/Lymph: Denies: easy bruising or easy bleeding Medications/Allergies Home Medications Medication Instructions Recorded Confirmed Last Taken Type citalopram 40 mg tablet (Celexa) 40 mg PO QPM 01/31/20 01/10/23 01/09/23 History zolpidem 10 mg tablet 10 mg PO BEDTIME 01/31/20 01/10/23 01/09/23 History aspirin 81 mg tablet,delayed 162 mg PO QAM 01/20/21 01/10/23 01/09/23 History release (Adult Low Dose Aspirin) cyanocobalamin (vitamin B-12) 50 50 mcg PO QAM 11/30/21 01/10/23 01/09/23 History mcg tablet (Vitamin B-12) montelukast 10 mg tablet 10 mg PO QAM 11/30/21 01/10/23 01/09/23 History acetaminophen 500 mg tablet 1,000 mg PO Q6H PRN Pain 10/26/22 01/10/23 Unknown History omeprazole 20 mg capsule,delayed 20 mg PO BID 10/26/22 01/10/23 01/09/23 History release carvedilol 6.25 mg tablet 6.25 mg PO BID #180 tabs 10/28/22 01/10/23 01/09/23 Rx albuterol sulfate 90 mcg/actuation 2 puff inhalation QID PRN 11/10/22 01/10/23 Unknown History aerosol inhaler Shortness Of Breath nitroglycerin 0.4 mg sublingual 0.4 mg sublingual Q5M PRN Chest 11/10/22 01/10/23 01/08/23 History tablet (Nitrostat) Pain midodrine 5 mg tablet 5 mg PO BID PRN Sbp less than 100 01/02/23 01/10/23 Unknown Rx #20 tabs sodium bicarbonate 650 mg tablet 650 mg PO TID #30 tabs 01/02/23 01/10/23 01/09/23 Rx furosemide 40 mg tablet (Lasix) 40 mg PO QAM 01/08/23 01/10/23 01/09/23 History magnesium 200 mg tablet 200 mg PO QAM 01/08/23 01/10/23 01/09/23 History potassium chloride 10 mEq 20 meq PO QAM 01/08/23 01/10/23 01/09/23 History tablet,extended release spironolactone 25 mg tablet 25 mg PO QAM 01/08/23 01/10/23 01/09/23 History ondansetron 4 mg disintegrating 4 mg PO Q6H PRN nausea and 01/10/23 01/10/23 U nknown Rx tablet vomiting #14 tabs polyethylene glycol 3350 17 17 g PO DAILY 01/10/23 01/10/23 01/09/23 History gram/dose oral powder (Miralax) sacubitril 97 mg-valsartan 103 mg 1 tab PO BID 01/10/23 01/10/23 Unknown History tablet (Entresto) Allergies Allergy/AdvReac Type Severity Reaction Status Date / Time egg Allergy unknown Verified 01/10/23 00:09 PFSH Acute PFSH: Medical History Acute hypokalemia AICD discharge Chest pain CHF (congestive heart failure) CKD (chronic kidney disease) Closed intertrochanteric fracture of left hip History of recurrent UTIs History of TIA (transient ischemic attack) HTN (hypertension) Hydronephrosis, left Hypertension Hypokalemia Hypokalemia ICD (implantable cardioverter-defibrillator) in place Liver mass Mass of right lobe of liver ~3.5 x 4 cm, indeterminant, hypodense, first noted 11/2021 Nicotine dependence, cigarettes, uncomplicated Non-ischemic cardiomyopathy Nonischemic cardiomyopathy Specific etiology unknown, may have been viral or related to uncontrolled hypertension from her recollection Echocardiogram November 2021 with ejection fraction of 42% - 8/9/22 echo EF now 25% Obstructive pyelonephritis (~11/2021) Renal atrophy, left Syncope Urolithiasis Multi stone former. Complicated by at least 1 episode of obstructive p yelonephritis. Multiple procedures required to treat Ventricular tachycardia Surgical History Nephrostomy status S/P ureteral stent placement (~11/2021) Status post cholecystectomy Status post placement of cardiac pacemaker Family History Father , AT AGE 77 CAD (coronary artery disease) Cancer lung cancer Mother , AT AGE 60 Cancer OVARIAN Denies family history of Clotting disorder Anesthesia complication Bleeding disorder Social History Smoking and tobacco status: current every day smoker cigarettes Packs smoked per day: 0.5 Years cigarettes smoked: 45 Second hand smoke exposure: Yes Alcohol intake: current Lives independently: Yes Marital status: service: No Current occupational status: disabled Current gender identity: Female Vitals/I&O/Wt Last Vital Signs Pulse 90 01/10/23 16:23 Resp 15 01/10/23 12:40 BP 104/74 01/10/23 13:13 Pulse Ox 92 01/10/23 15:59 O2 Del Method 01/10/23 16:07 Weight last 48 hrs Weight 72.121 kg Weight 72.575 kg Physical Exam Urinary Catheter Management: Leger: Cath Placed During This Visit: yes Reason for Continuing Indwelling Catheter: Accurate Measurement of Urinary Output in Critically Ill Patients Urinary Catheter Date of Insertion: 01/10/23 Urinary Catheter Time of Insertion: 15:48 Data 01/10/23 12:00 01/10/23 12:00 Other Labs: Laboratory Results WBC 7.9 10^3/uL (4.0-10.0) 01/10/23 12:00 RBC 3.12 10^6/uL (4.1-5.3) L 01/10/23 12:00 Hgb 10.4 g/dL (11.5-15.3) L 01/10/23 12:00 Hct 33.1 % (37.0-47.0) L 01/10/23 12:00 MCV 106.1 fl (81-99) H 01/10/23 12:00 MCH 33.3 pg (28.0-34.0) 01/10/23 12:00 MCHC 31.4 g/dL (30.0-36.0) 01/10/23 12:00 RDW 15.5 % (12.1-15.1) H 01/10/23 12:00 Plt Count 194 10^3/cmm (130-400) 01/10/23 12:00 MPV 11.5 fL (7.4-10.4) H 01/10/23 12:00 Neut % (Auto) 61.1 % 01/10/23 12:00 Lymph % (Auto) 26.6 % 01/10/23 12:00 [place] % (Auto) 10.2 % 01/10/23 12:00 Eos % (Auto) 0.4 % 01/10/23 12:00 Baso % (Auto) 1.1 % 01/10/23 12:00 Neut # (Auto) 4.81 10^3/uL (1.8-7.7) 01/10/23 12:00 Lymph # (Auto) 2.1 10^3/uL (0.8-4.8) 01/10/23 12:00 [place] # (Auto) 0.8 10^3/uL (0.2-0.9) 01/10/23 12:00 Eos # (Auto) 0.0 10^3/uL (0.0-0.8) 01/10/23 12:00 Baso # (Auto) 0.1 10^3/uL (0.0-0.1) 01/10/23 12:00 Nucleated RBC % (auto) 0 % 01/10/23 12:00 Nucleated RBCs # 0.0 /100WBC 01/10/23 12:00 PT 16.10 SECONDS (12.1-14.9) H 01/10/23 12:00 INR 1.25 (0.8-1.2) H 01/10/23 12:00 Specimen Type Arterial 01/10/23 12:04 Sample Site Radial, left 01/10/23 12:04 ABG pH 7.51 (7.35-7.45) H 01/10/23 12:04 ABG pCO2 24.3 mmHg (35-45) L 01/10/23 12:04 ABG pO2 251.0 mmHg (80.0-100.0) H 01/10/23 12:04 ABG HCO3 19.5 mmol/L (22-26) L 01/10/23 12:04 ABG O2 Saturation 99.4 01/10/23 12:04 ABG Base Excess -2.2 mmol/L (-2.0-2.0) L 01/10/23 12:04 Michi Test Pos 01/10/23 12:04 A-a O2 Gradient Not Reportable 01/10/23 12:04 Hematocrit 34.1 % (37-47) L 01/10/23 12:04 Hgb O2 Saturation 97.1 % (95-100) 01/10/23 12:04 Carboxyhemoglobin 1.8 %THgb (0.4-20.1) 01/10/23 12:04 Methemoglobin 0.5 % (0.4-1.5) 01/10/23 12:04 Total Hemoglobin 11.1 g/dL (12-16) L 01/10/23 12:04 Sodium 138.0 mmol/L (131-143) 01/10/23 12:04 Potassium 3.8 mmol/L (3.5-5.0) 01/10/23 12:04 Glucose 179.0 mg/dL (70-115) H 01/10/23 12:04 Ionized Calcium 1.1 mmol/L (1.1-1.4) 01/10/23 12:04 O2 Delivery Device Nrb 01/10/23 12:04 O2 Liters/Min 15.0 % 01/10/23 12:04 Child Care Lead Teacher ID [place] 01/10/23 12:04 Sodium 139 mmol/L (136-145) 01/10/23 12:00 Potassium 3.7 mmol/L (3.5-5.1) 01/10/23 12:00 Chloride 100 mmol/L (98-107) 01/10/23 12:00 Carbon Dioxide 19 mmol/L (22-29) L 01/10/23 12:00 Anion Gap 23.7 (5-19) H 01/10/23 12:00 BUN 23 mg/dL (6-20) H 01/10/23 12:00 Creatinine 1.3 mg/dL (0.5-0.9) H 01/10/23 12:00 GFR Calculation 42.8 mL/min (90-130) L 01/10/23 12:00 Glucose 147 mg/dL (65-115) H 01/10/23 12:00 Calculated Osmolality 294 mOsm/kg (285-295) 01/10/23 12:00 Calcium 8.5 mg/dL (8.5-10.5) 01/10/23 12:00 Magnesium 2.1 mg/dL (1.7-2.3) 01/10/23 12:00 Total Bilirubin 0.7 mg/dL (0.15-1.2) 01/10/23 12:00 AST 19 U/L (0-32) 01/10/23 12:00 ALT 14 U/L (0-33) 01/10/23 12:00 Alkaline Phosphatase 81 U/L (35-105) 01/10/23 12:00 Troponin T Baseline 19 ng/L (0-10) H 01/10/23 12:00 Troponin T 120 Minute 26.81 ng/L (0-10) H 01/10/23 14:17 Delta Troponin T 7.81 ABS# (0-10) 01/10/23 14:17 NT-Pro-B Natriuret Pep 13124 pg/mL (0-125) H 01/10/23 12:00 Total Protein 5.8 g/dL (6.6-8.7) L 01/10/23 12:00 Albumin 3.5 g/dL (3.5-5.2) 01/10/23 12:00 Globulin 2.3 g/dL (1.3-4.6) 01/10/23 12:00 Lipase 22 U/L (13-60) 01/10/23 12:00 A&P Assessment and plan (1) Idiopathic ventricular fibrillation: (2) Defibrillator discharge: (3) Nonischemic cardiomyopathy: (4) CHF (congestive heart failure): Plan Patient presenting to the hospital today with a history of known nonischemic cardiomyopathy with last known EF of 25%. She was noted to be in V-fib, her AICD fired 4-5 times in route via EMS and then again in the emergency room. Electrolytes including potassium and magnesium are within normal range today, juaquin will aim for goal potassium of 4 and above. She was received amiodarone 150 mg bolus in the emergency room, will start her on amiodarone infusion at 1 mg/min currently. Cardiology consult Pacemaker interrogation Recently had a CTA of the chest on January 02, 2023 which was without any evidence of PE, showed bilateral pleural effusions Continue her several other home medications including aspirin, Coreg, Lasix which will be transitioned to IV, and Entresto. Attestations Medical Necessity Statement*: Greater than 2 midnight admission is anticipated for above defined care Coding Level of Care Code Acute Code for Chg Fwd High MDM includes number and complexity of problems actively addressed during encounter, amount and/or complexity of data reviewed/ordered and described risk of complication, morbidity or mortality of management as documented Diagnoses Idiopathic ventricular fibrillation I49.01 Defibrillator discharge Z45.02 Nonischemic cardiomyopathy I42.8 CHF (congestive heart failure) I50.9
--- NOTE | 2023-01-10 18:10 | P.CONIM_ITS ---
Providers/Reason For Consult Consulting Physician/Specialty*: BRIDGET Hill MD/cardiology Reason for Consult*: Patient with recurrent ICD shocks/nonischemic cardiomyopathy Requesting Physician: Dr. Dunaway Attending Physician: Beryl Dejesus MD Primary Care Provider: Mavis Peterson History of Present Illness History of Present Illness Elena Pulliam is a 53 year old female with a history of nonischemic cardiomyopathy, status post ICD implantation, he is admitted to hospital through the emergency room where she presented with recurrent episodes of ICD discharges. This patient apparently was at home today and was lying in the bed when she started having some palpitation and chest discomfort. It started getting worse. So she called the 911. She got up and was trying to sit down on a recliner. As she was trying to do so according to her, she collapsed to the floor. Based on the ICD interrogation reports, the total of 7 ICD discharges. The interrogation report is currently not available. As per the patient, she felt it 2 or 3 shocks. It is very possible that she might have had antitachycardia pacing. Currently she is mainly complaining of being tired. No chest pain or shortness of breath. According the patient, she has been compliant with medications. She denies any fever or chills. No significant cough. Her basic labs emergency room was unremarkable. She is known to have LV ejection fraction around 20 to 25%.? She had the first ICD implantation in 2007.? She had the ICD revision in March [address] Basilio at the [facility].? Review of Systems Narrative: CONSTITUTIONAL: No fever or chills. EYES: No blurring of vision or other visual disturbances lately. ENT: No hoarseness of voice, auditory disturbances or sore throat. CARDIOVASCULAR: As mentioned above. RESPIRATORY: No significant cough. GASTROINTESTINAL: No hematemesis or melena. GENITOURINARY: No dysuria or hematuria. INTEGUMENTARY: No skin rashes or history of skin cancer. NEURO: No transient ischemic attacks or amaurosis. PSYCHIATRIC: No history of psychosis or major depression. HEMATOLOGIC: No bleeding disorders or significant anemia. ENDOCRINE: No history of polyuria or polydipsia. MUSCULOSKELETAL: No recent joint pain or swelling. ALLERGY/IMMUNOLOGY: As mentioned above. Medications/Allergies Home Medications Medication Instructions Recorded Confirmed Last Taken Type citalopram 40 mg tablet (Celexa) 40 mg PO QPM 01/31/20 01/10/23 01/09/23 History zolpidem 10 mg tablet 10 mg PO BEDTIME 01/31/20 01/10/23 01/09/23 History aspirin 81 mg tablet,delayed 162 mg PO QAM 01/20/21 01/10/23 01/09/23 History release (Adult Low Dose Aspirin) cyanocobalamin (vitamin B-12) 50 50 mcg PO QAM 11/30/21 01/10/23 01/09/23 History mcg tablet (Vitamin B-12) montelukast 10 mg tablet 10 mg PO QAM 11/30/21 01/10/23 01/09/23 History acetaminophen 500 mg tablet 1,000 mg PO Q6H PRN Pain 10/26/22 01/10/23 Unknown History omeprazole 20 mg capsule,delayed 20 mg PO BID 10/26/22 01/10/23 01/09/23 History release carvedilol 6.25 mg tablet 6.25 mg PO BID #180 tabs 10/28/22 01/10/23 01/09/23 Rx albuterol sulfate 90 mcg/actuation 2 puff inhalation QID PRN 11/10/22 01/10/23 Unknown History aerosol inhaler Shortness Of Breath nitroglycerin 0.4 mg sublingual 0.4 mg sublingual Q5M PRN Chest 11/10/22 01/10/23 01/08/23 History tablet (Nitrostat) Pain midodrine 5 mg tablet 5 mg PO BID PRN Sbp less than 100 01/02/23 01/10/23 Unknown Rx #20 tabs sodium bicarbonate 650 mg tablet 650 mg PO TID #30 tabs 01/02/23 01/10/23 01/09/23 Rx furosemide 40 mg tablet (Lasix) 40 mg PO QAM 01/08/23 01/10/23 01/09/23 History magnesium 200 mg tablet 200 mg PO QAM 01/08/23 01/10/23 01/09/23 History potassium chloride 10 mEq 20 meq PO QAM 01/08/23 01/10/23 01/09/23 History tablet,extended release spironolactone 25 mg tablet 25 mg PO QAM 01/08/23 01/10/23 01/09/23 History ondansetron 4 mg disintegrating 4 mg PO Q6H PRN nausea and 01/10/23 01/10/23 Unknown Rx tablet vomiting #14 tabs polyethylene glycol 3350 17 17 g PO DAILY 01/10/23 01/10/23 01/09/23 History gram/dose oral powder (Miralax) sacubitril 97 mg-valsartan 103 mg 1 tab PO BID 01/10/23 01/10/23 Unknown History tablet (Entresto) Allergies Allergy/AdvReac Type Severity Reaction Status Date / Time egg Allergy unknown Verified 01/10/23 00:09 PFSH Acute PFSH: Medical History (Updated 01/10/23 @ 21:32 by Michael Hill MD) Acute hypokalemia AICD discharge Chest pain CHF (congestive heart failure) CKD (chronic kidney disease) Closed intertrochanteric fracture of left hip History of recurrent UTIs History of TIA (transient ischemic attack) HTN (hypertension) Hydronephrosis, left Hypertension Hypokalemia Hypokalemia ICD (implantable cardioverter-defibrillator) in place Liver mass Mass of right lobe of liver ~3.5 x 4 cm, indeterminant, hypodense, first noted 11/2021 Nicotine dependence, cigarettes, uncomplicated Non-ischemic cardiomyopathy Nonischemic cardiomyopathy Specific etiology unknown, may have been viral or related to uncontrolled hypertension from her recollection Echocardiogram November 2021 with ejection fraction of 42% - 05/17/22 echo EF now 25% Obstructive pyelonephritis (~11/2021) Renal atrophy, left Syncope Urolithiasis Multi stone former. Complicated by at least 1 episode of obstructive pyelonephritis. Multiple procedures required to treat Ventricular tachycardia Surgical History Nephrostomy status S/P ureteral stent placement (~11/2021) Status post cholecystectomy Status post placement of cardiac pacemaker Family History Father , AT AGE 77 CAD (coronary artery disease) Cancer lung cancer Mother , AT AGE 60 Cancer OVARIAN Denies family history of Clotting disorder Anesthesia complication Bleeding disorder Social History Smoking and tobacco status: current every day smoker cigarettes Packs smoked per day: 0.5 Years cigarettes smoked: 45 Second hand smoke exposure: Yes Alcohol intake: current Lives independently: Yes Marital status: service: No Current occupational status: disabled Current gender identity: Female Vitals/I&O/Wt Last Vital Signs Pulse 90 01/10/23 16:23 Resp 15 01/10/23 12:40 BP 104/74 01/10/23 13:13 Pulse Ox 92 01/10/23 15:59 O2 Del Method 01/10/23 16:07 Weight last 48 hrs Weight 159 lb Weight 160 lb Physical Exam Narrative: GENERAL: The patient is alert and oriented times three. Not in any acute distress. HEENT: No significant pallor, icterus or lymphadenopathy.Oral cavity: There are no mucous membrane lesions. NECK: Trachea appears to be central. No masses noted. No JVD or thyromegaly appreciated. RESPIRATORY: Chest is symmetrical. No intercostals muscle retraction or any accessory muscle activation. There is no chest wall tenderness. Breath sounds are heard bilaterally. No rales or rhonchi heard. No evidence of any consolidation. BREASTS: Deferred. HEART: The heart sounds are normal. No S3 or S4. Short systolic murmur in the lower sternal border. No diastolic murmurs. No pericardial rub ABDOMEN: No vessel pulsations or distention. No tenderness. No organomegaly appreciated. Bowel sounds are normally heard. : Deferred. RECTAL: Deferred. LYMPHATIC: No lymphadenopathy noted in the neck. EXTREMITIES: No edema or cyanosis. No clubbing. MUSCULOSKELETAL: No acute joint deformities or swelling SKIN: There are no significant rashes or ecchymosis NEUROPSYCHIATRIC: The patient is alert and oriented x3. Appears to be in a good mood. No tremors or rigidity noted. Urinary Catheter Management: Leger: Cath Placed During This Visit: yes Reason for Continuing Indwelling Catheter: Accurate Measurement of Urinary Output in Critically Ill Patients Urinary Catheter Date of Insertion: 01/10/23 Urinary Catheter Time of Insertion: 15:48 Data 01/10/23 12:00 01/10/23 12:00 Other Labs: Laboratory Last Values WBC 7.9 10^3/uL (4.0-10.0) 01/10/23 12:00 RBC 3.12 10^6/uL (4.1-5.3) L 01/10/23 12:00 Hgb 10.4 g/dL (11.5-15.3) L 01/10/23 12:00 Hct 33.1 % (37.0-47.0) L 01/10/23 12:00 MCV 106.1 fl (81-99) H 01/10/23 12:00 MCH 33.3 pg (28.0-34.0) 01/10/23 12:00 MCHC 31.4 g/dL (30.0-36.0) 01/10/23 12:00 RDW 15.5 % (12.1-15.1) H 01/10/23 12:00 Plt Count 194 10^3/cmm (130-400) 01/10/23 12:00 MPV 11.5 fL (7.4-10.4) H 01/10/23 12:00 Neut % (Auto) 61.1 % 01/10/23 12:00 Lymph % (Auto) 26.6 % 01/10/23 12:00 Travis % (Auto) 10.2 % 01/10/23 12:00 Eos % (Auto) 0.4 % 01/10/23 12:00 Baso % (Auto) 1.1 % 01/10/23 12:00 Neut # (Auto) 4.81 10^3/uL (1.8-7.7) 01/10/23 12:00 Lymph # (Auto) 2.1 10^3/uL (0.8-4.8) 01/10/23 12:00 Travis # (Auto) 0.8 10^3/uL (0.2-0.9) 01/10/23 12:00 Eos # (Auto) 0.0 10^3/uL (0.0-0.8) 01/10/23 12:00 Baso # (Auto) 0.1 10^3/uL (0.0-0.1) 01/10/23 12:00 Nucleated RBC % (auto) 0 % 01/10/23 12:00 Nucleated RBCs # 0.0 /100WBC 01/10/23 12:00 PT 16.10 SECONDS (12.1-14.9) H 01/10/23 12:00 INR 1.25 (0.8-1.2) H 01/10/23 12:00 Specimen Type Arterial 01/10/23 12:04 Sample Site Radial, left 01/10/23 12:04 ABG pH 7.51 (7.35-7.45) H 01/10/23 12:04 ABG pCO2 24.3 mmHg (35-45) L 01/10/23 12:04 ABG pO2 251.0 mmHg (80.0-100.0) H 01/10/23 12:04 ABG HCO3 19.5 mmol/L (22-26) L 01/10/23 12:04 ABG O2 Saturation 99.4 01/10/23 12:04 ABG Base Excess -2.2 mmol/L (-2.0-2.0) L 01/10/23 12:04 Michi Test Pos 01/10/23 12:04 A-a O2 Gradient Not Reportable 01/10/23 12:04 Hematocrit 34.1 % (37-47) L 01/10/23 12:04 Hgb O2 Saturation 97.1 % (95-100) 01/10/23 12:04 Carboxyhemoglobin 1.8 %THgb (0.4-20.1) 01/10/23 12:04 Methemoglobin 0.5 % (0.4-1.5) 01/10/23 12:04 Total Hemoglobin 11.1 g/dL (12-16) L 01/10/23 12:04 Sodium 138.0 mmol/L (131-143) 01/10/23 12:04 Potassium 3.8 mmol/L (3.5-5.0) 01/10/23 12:04 Glucose 179.0 mg/dL (70-115) H 01/10/23 12:04 Ionized Calcium 1.1 mmol/L (1.1-1.4) 01/10/23 12:04 O2 Delivery Device Nrb 01/10/23 12:04 O2 Liters/Min 15.0 % 01/10/23 12:04 Marketing Support Specialist ID Walci 01/10/23 12:04 Sodium 139 mmol/L (136-145) 01/10/23 12:00 Potassium 3.7 mmol/L (3.5-5.1) 01/10/23 12:00 Chloride 100 mmol/L (98-107) 01/10/23 12:00 Carbon Dioxide 19 mmol/L (22-29) L 01/10/23 12:00 Anion Gap 23.7 (5-19) H 01/10/23 12:00 BUN 23 mg/dL (6-20) H 01/10/23 12:00 Creatinine 1.3 mg/dL (0.5-0.9) H 01/10/23 12:00 GFR Calculation 42.8 mL/min (90-130) L 01/10/23 12:00 Glucose 147 mg/dL (65-115) H 01/10/23 12:00 Calculated Osmolality 294 mOsm/kg (285-295) 01/10/23 12:00 Calcium 8.5 mg/dL (8.5-10.5) 01/10/23 12:00 Magnesium 2.1 mg/dL (1.7-2.3) 01/10/23 12:00 Total Bilirubin 0.7 mg/dL (0.15-1.2) 01/10/23 12:00 AST 19 U/L (0-32) 01/10/23 12:00 ALT 14 U/L (0-33) 01/10/23 12:00 Alkaline Phosphatase 81 U/L (35-105) 01/10/23 12:00 Troponin T Baseline 19 ng/L (0-10) H 01/10/23 12:00 Troponin T 120 Minute 26.81 ng/L (0-10) H 01/10/23 14:17 Delta Troponin T 7.81 ABS# (0-10) 01/10/23 14:17 Troponin T Hi Sens 6Hr 30.12 ng/L (0-10) H 01/10/23 18:16 Troponin T Hi Sens 6Hr Delta 11.12 ng/L (0-12) 01/10/23 18:16 NT-Pro-B Natriuret Pep 44925 pg/mL (0-125) H 01/10/23 12:00 Total Protein 5.8 g/dL (6.6-8.7) L 01/10/23 12:00 Albumin 3.5 g/dL (3.5-5.2) 01/10/23 12:00 Globulin 2.3 g/dL (1.3-4.6) 01/10/23 12:00 Lipase 22 U/L (13-60) 01/10/23 12:00 EKG 1: My Interpretation: Normal sinus rhythm nonspecific IVCD, left axis deviation, poor R wave progression, nonspecific ST-T changes A&P Assessment and plan (1) Encounter for testing following appropriate discharge of implantable cardioverter-defibrillator (ICD): Apparently there is no obvious electrolyte abnormalities to explain the arrhythmia. Patient may have a high arrhythmic substrate. At this point, it would be appropriate to start her on IV amiodarone. (2) Nonischemic cardiomyopathy: Patient may continue on the current medications. We will optimize the GDMT. (3) Chronic systolic (congestive) heart failure: Careful IV diuresis. Patient seems to have a persistently high BNP. We will continue to optimize medications. (4) GERRI (acute kidney injury): Current related to the arrhythmia/low output state (5) Anemia: Could be multifactorial. Plan We may go ahead and do limited 2D echocardiogram to reevaluate the LV function and to rule out any other pathology. Based on the clinical progress on the results of the above, further recommendations will be made. Thank you for the opportunity to evaluate this patient and make these recommendations Consult Attestations Medical Necessity Statement: Patient requires continued hospital stay for close monitoring and further management Coding Level of Care Code 43553 Diagnoses Encounter for testing following appropriate discharge of implantable cardioverter-defibrillator (ICD) Z45.02 Nonischemic cardiomyopathy I42.8 Chronic systolic (congestive) heart failure I50.22 GERRI (acute kidney injury) N17.9 Anemia D64.9
[2023-01-10] MEDS: enoxaparin 40 mg/0.4 mL Syringe SUBCUT (18:15)
[2023-01-10] MEDS: morphine 4 mg/mL SDV 1 mL 2 MG IVP (18:15)
[2023-01-10] MEDS: citalopram 20 mg Tablet 40 MG PO (18:15)
[2023-01-10 18:50] LABS: Troponin 5 6HR 30.12 ng/L (0-10)
[2023-01-10 18:52] LABS: Troponin 5 6HR Delta 11.12 ng/L (0-12)
[2023-01-10] MEDS: metoclopramide 5 mg/mL SDV 2 mL IVP (20:29)
[2023-01-10] MEDS: zolpidem 5 mg Tablet 10 MG PO (20:30)
[2023-01-10] MEDS: sodium bicarbonate 650 mg Tablet PO (20:30)
[2023-01-10] MEDS: sacubitril/valsartan 24-26 mg Tablet 4 EACH PO (20:30)
[2023-01-10] MEDS: carvedilol 6.25 mg Tablet PO (20:30)
--- NOTE | 2023-01-10 22:26 | PC.NURSE ---
AICD Interrogation Patient's AICD interrogated at about 2014. Jesse from [facility] called with report; he states equipment is functioning properly with no malfunction and that it did fire 10 times following vfib episodes. Interrogation report printed and placed in patient chart.
[2023-01-11] VITALS (186 sets, daily range): BP systolic 80–117; BP diastolic 49–78; PULSE 66–88; RESP 9–33; TEMP 36.4–36.7; O2SAT 74–100
[2023-01-11 04:19] LABS: Basophils # 0.1 10^3/uL (0.0-0.1); Basophils % 0.7 %; Eosinophils % 0.2 %; Hematocrit 30.9 % (37.0-47.0); Hemoglobin 9.7 g/dL (11.5-15.3); Lymphocytes # 2.2 10^3/uL (0.8-4.8); Lymphocytes % 25.1 %; Mean Corpuscular HGB Conc 31.4 g/dL (30.0-36.0); Mean Corpuscular Hemoglobin 33.7 pg (28.0-34.0); Mean Corpuscular Volume 107.3 fl (81-99); Mean Platelet Volume 11.8 fL (7.4-10.4); Monocytes # 0.6 10^3/uL (0.2-0.9); Monocytes % 7.3 %; Neutrophils # 5.66 10^3/uL (1.8-7.7); Neutrophils % 66.2 %; Nucleated Red Blood Cells % 0 %; Platelet Count 177 10^3/cmm (130-400); Red Blood Count 2.88 10^6/uL (4.1-5.3); Red Cell Distribution Width 15.3 % (12.1-15.1); White Blood Count 8.6 10^3/uL (4.0-10.0)
[2023-01-11 04:48] LABS: Alanine Aminotransferase 18 U/L (0-33); Albumin Level 3.5 g/dL (3.5-5.2); Alkaline Phosphatase 82 U/L (35-105); Anion Gap 15.7 (5-19); Aspartate Amino Transferase 25 U/L (0-32); Blood Urea Nitrogen 26 mg/dL (6-20); Calcium 8.4 mg/dL (8.5-10.5); Carbon Dioxide 27 mmol/L (22-29); Chloride 101 mmol/L (98-107); Globulin 2.4 g/dL (1.3-4.6); Glomerular Filtration Rate 36.3 mL/min (90-130); Glucose 92 mg/dL (65-115); Magnesium 2.1 mg/dL (1.7-2.3); Osmolality Calculated 294 mOsm/kg (285-295); Potassium 3.7 mmol/L (3.5-5.1); Sodium 140 mmol/L (136-145); Total Bilirubin 0.6 mg/dL (0.15-1.2); Total Protein 5.9 g/dL (6.6-8.7)
[2023-01-11] MEDS: morphine 4 mg/mL SDV 1 mL 2 MG IVP ×4 (04:52→18:50)
[2023-01-11] MEDS: metoclopramide 5 mg/mL SDV 2 mL IVP (04:52)
[2023-01-11] MEDS: aspirin 81 mg EC Tablet 162 MG PO (05:15)
[2023-01-11] MEDS: magnesium oxide 400 mg tablet 200 MG PO (05:15)
[2023-01-11] MEDS: montelukast sodium 10 mg Tablet PO (05:16)
[2023-01-11] MEDS: potassium chloride ER 20 mEq Tablet PO (05:16)
[2023-01-11] MEDS: spironolactone 25 mg Tablet PO (05:16)
--- NOTE | 2023-01-11 05:53 | PC.NURSE ---
Notification log Dr Gonzales notified about pt hypotension. Pt is asymptomatic, denies light headedness, dizziness or vision changes. Orders to continue to monitor for now. MD states we will add Levophed gtt if needed.
--- NOTE | 2023-01-11 06:38 | USCV_ITS ---
Elena Pulliam Age: 53 Gender: F : 1970 Exam Date: 01/11/2023 00:47 Ordering Phys: Michael Hill MD ([email or web address]) Technologist: VASQUEZ [place] [facility] [place]ication: recurrent Vtach s/p implanted defibrillator 2007. BP: 106 / 72 HR: 71 Rhythm: Sinus Technical Quality: Adequate MEASUREMENTS (Male / Female) Normal Values 2D ECHO LV Diastolic Diameter PLAX 6.0 cm 4.2 - 5.9 / 3.9 - 5.3 cm LV Systolic Diameter PLAX 5.5 cm IVS Diastolic Thickness 1.0 cm 0.6 - 1.0 / 0.6 - 0.9 cm IVS Systolic Thickness 0.8 cm LVPW Diastolic Thickness 1.0 cm 0.6 - 1.0 / 0.6 - 0.9 cm LVPW Systolic Thickness 1.3 cm LVOT Diameter 1.9 cm LV Ejection Fraction 2D Teich 18.5 % LV Ejection Fraction MOD 2C 28.6 % LV Ejection Fraction 2C AL 26.8 % LA Diameter 4.1 cm LA Width 4.8 cm LA Height 5.1 cm RA Width 4.4 cm RA Height 5.0 cm IVC Diameter 2.0 cm DOPPLER AV Peak Velocity 98.0 cm/s LVOT Peak Velocity 49.0 cm/s AV Area Cont Eq vti 1.4 cm squared AV Area Cont Eq pk 1.4 cm squared MV Area PHT 4.9 cm squared Mitral E to A Ratio 2.8 MV E' Velocity 111.0 cm/s TR Peak Velocity 264.3 cm/s TR Peak Gradient 27.9 mmHg Right Atrial Pressure 5.0 mmHg Pulmonary Artery Systolic Pressu 32.9 mmHg FINDINGS Left Ventricle Severe diffuse hypokinesia of the left ventricle with an ejection fraction of 15 to 20% Right Ventricle Appears to be of normal size and ejection fraction Right Atrium Mildly increased right atrial size. Left Atrium Mildly dilated Mitral Valve Thickened mitral valve. Moderately severe mitral regurgitation Aortic Valve Thickened aortic valve. Tricuspid Valve Ykzx-lx-zaunvore tricuspid valve regurgitation. Pulmonic Valve Minimally thickened Pericardium No pericardial effusion. Aorta Normal aortic annulus size. IVC Normal IVC dimension with <50% respiratory change of the inferior vena cava. CONCLUSIONS Severe diffuse hypokinesia of the left ventricle with an ejection fraction of 15 to 20%. Right ventricular appears to be normal size and ejection fraction. Mild biatrial enlargement. Thickened mitral valve. Moderately severe mitral regurgitation. Ecbv-ka-rpogdebn tricuspid valve regurgitation. Thickened aortic valve. Compared to the study from 10/31/2022, ejection fraction appears to be declining Dr Michael Hill MD [facility] (Electronically Signed) Final Date: 11 January 2023 14:07 S
[2023-01-11] MEDS: ondansetron 2 mg/ML SDV 2 mL 4 MG IVP ×2 (07:18→20:39)
[2023-01-11] MEDS: midodrine 5 mg TABLET PO (07:18)
--- NOTE | 2023-01-11 08:14 | PC.NURSE ---
Dr. Dejesus notified of patient complaint of severe itching, generalized. Order given for 25mg Benadryl received, See MAR for administration. At this time, Dr. Dejesus, also notified of patient low blood pressure over shift supervisor rn and midodrine given in AM. Order to hold Coreg, Chris received.
[2023-01-11] MEDS: sodium bicarbonate 650 mg Tablet PO ×2 (08:22→14:45)
[2023-01-11] MEDS: pantoprazole DR 40 mg Tablet PO (08:22)
[2023-01-11] MEDS: diphenhydrAMINE 25 mg Capsule PO (08:22)
[2023-01-11] MEDS: polyethylene glycol 3350 Pkt 17 gm PO (08:22)
--- NOTE | 2023-01-11 09:00 | PM.PN ---
Subjective Subjective: Patient complains of chest pain radiating into the left shoulder today. She is being planned for an angiogram later today. Blood pressure ranging on the softer side between 78-86, map currently maintained at 65. Medications: Reviewed: Yes Vitals/I&O/Wt Last Vital Signs Temp 98.1 F 01/11/23 16:10 Pulse 78 01/11/23 16:10 Resp 20 H 01/11/23 16:10 BP 100/66 01/11/23 16:10 Pulse Ox 96 01/11/23 16:10 O2 Del Method 01/11/23 16:10 O2 Flow Rate 1 01/11/23 13:35 01/11/23 01/11/23 01/11/23 06:59 14:59 22:59 Intake Total 466.747 / 269.901 9791.820 / 1199.820 19.296 / 1219.116 Output Total 250 / 550 Balance 216.747 / 26.747 1199.820 / 1199.820 19.296 / 1219.116 Weight last 48 hrs Weight 72.121 kg Weight 72.575 kg Physical Exam Narrative: General: No acute distress, AO x3 HEENT: PERRLA, pupils bilaterally equal and reactive, pallors not present Chest: Normal vesicular breath sounds, no added sounds, equal good air entry bilaterally CVS: S1-S2 regular, no murmurs, no tachycardia, no gallops, no rubs Abdomen: Soft, nontender, no organomegaly, bowel sounds present Neuro: No focal deficits, no facial deformity, AO x3, power 5/5 in all limbs Urinary Catheter Management: Leger: Cath Placed During This Visit: yes Reason for Continuing Indwelling Catheter: Accurate Measurement of Urinary Output in Critically Ill Patients Urinary Catheter Date of Insertion: 01/10/23 Urinary Catheter Time of Insertion: 15:48 Data 01/11/23 03:19 01/11/23 03:19 A&P Assessment and plan (1) Idiopathic ventricular fibrillation: (2) Defibrillator discharge: (3) Nonischemic cardiomyopathy: (4) CHF (congestive heart failure): Plan Patient presenting to the hospital with a history of known nonischemic cardiomyopathy with last known EF of 25%. She was noted to be in V-fib, her AICD fired 4-5 times in route via EMS and then again in the emergency room. She was received amiodarone 150 mg bolus in the emergency room, and currently on amiodarone infusion at 1 mg/min currently. Cardiology consult appreciated, planned for coronary angiogram today Pacemaker interrogation Recently had a CTA of the chest on January 02, 2023 which was without any evidence of PE, showed bilateral pleural effusions Holding coreg, entresto due to low BP, start levophed to maintain MAP > 65 . Attestations Medical Necessity Statement*: chest pain, non ischemic CMP, cardiac arrhythmia, plan for coronary angiogram today. Coding Level of Care Code Critical Care >/= 30 minutes Diagnoses Idiopathic ventricular fibrillation I49.01 Defibrillator discharge Z45.02 Nonischemic cardiomyopathy I42.8 CHF (congestive heart failure) I50.9
[2023-01-11] MEDS: sodium chloride 0.9% 1,000 ML 125 ML IV ×2 (09:55→17:31)
--- NOTE | 2023-01-11 10:04 | ECG_ITS ---
[facility] Test Date: 2023-01-11 Pat Name: Elena Pulliam Department: Room: [facility] Gender: Female Grants Assistant: : 1970 Requested By: Beryl Dejesus Order Number: [id number] Arlette MD: Michael Hill M.D. Measurements Intervals [place] Rate: 70 P: 45 NC: 156 QRS: -46 QRSD: 136 T: 120 QT: 446 QTc: 481 Interpretive Statements SINUS RHYTHM LEFT AXIS DEVIATION [QRS AXIS < -30] INTRAVENTRICULAR CONDUCTION DELAY [130+ ms QRS DURATION] POSSIBLE LEFT VENTRICULAR HYPERTROPHY [VOLTAGE CRITERIA PLUS LAE OR QRS WIDENING] POSSIBLE ANTERIOR MYOCARDIAL INFARCTION , PROBABLY OLD [30 ms Q WAVE IN V3/V4, OR R < 0.2 mV IN V4] Compared to ECG 01/10/2023 17:40:00 Ventricular premature complex(es) no longer present Myocardial infarct finding still present Electronically Signed On 01-12-2023 0:11:04 CDT by Michael Hill M.D. [id number]
--- NOTE | 2023-01-11 10:37 | PC.NURSE ---
Patient C/O new onset pain between shoulders 8/10 approximately 1 hr after morphine. EKG obtained. Blood pressures consistently low, order for levophed obtained. Dr. Dejesus notified at 1013 of chest pain, telephone order read back to for 5-325 [place] obtained. See MAR for all medication administrations. Dr. Hill notified at 1018. See order for Eco, and NPO.
--- NOTE | 2023-01-11 11:21 | XACV_ITS ---
Exam Room: 2 Ht: 165 cm Wt: 72 kg BSA: 1.83 m2 Gender: Female : 1970 Any Known Allergies: Eggs Exam Priority: Routine Procedure(s): Procedure Description: Diagnostic procedure Procedure Description: Left Heart Catheterization Procedure Description: Right Heart Catheterization Procedure Description: O2 saturation Procedure Description: Miscellaneous Procedure Description: Angio-Seal Procedure Description: Coronary Angiography Diagnostic Cath Status: Urgent Diagnostic Findings * INDICATION: Ventricular tachycardia/ Ventricular fibrillation/ Cardiogenic shock. * No significant disease noted in the Left Main, Left Anterior Descending, Right, or Circumflex coronary arteries. * Right heart cath findings: * RA pressure:24/22 (24)mmHg * RV pressure : 51/11/25 mmHg * PA pressure 60/33/43mmHg * Catheter could not be wedged but LVEDP is 33mmHg * PA sat 23mmHG * AO sat 90% * CO by Mary: 1.99L/min * CI by Mary: 1.1 L/min/m2 . * Coronary angiography shows right dominance. Conclusions 1. No significant disease noted in the Left Main, Left Anterior Descending, Right, or Circumflex coronary arteries. 2. Cardiogenic shock 3. Severely elevated right and left sided cardiac pressures 4. Non ischemic cardiomyopathy. Recommendations * Can be started on inotropes. Obtain lactic acid * Aggressive diuresis * If no response, will need escalation of therapy to LV support device/ impella. Can also be transferred to tertiary care center for advanced heart failure therapies discussion. Interventional RX Recommendation: medical therapy and/or counseling Diagnostic RX Recommendation: medical therapy and/or counseling Pressures Phase:Rest AO : 100 / 64 ( 78 ) @ 1:00:00 PM 100 / 64 ( 78 ) @ 1:00:00 PM LV : 93 / / 33 @ 1:00:00 PM 94 / 11 / 33 @ 1:00:00 PM RV : 51 / / 25 @ 12:53:00 PM PA : 60 / 33 ( 43 ) @ 12:49:00 PM RA : a wave = 24 v wave = 22 mean = 20 @ 12:54:00 PM O2 Content Phase:Rest PA : O2 Content O2: 22.5 @ 1:00:00 PM Saturations Phase:Rest AO : 91 @ 1:00:00 PM PA : 23 @ 1:00:00 PM Cardiac Output Phase:Rest Mary : 2 @ 12:21:31 PM Mary Cardiac Index: 1 @ 12:21:31 PM Flow Phase:Rest Qp : 2 @ 12:21:31 PM Qs : 2 @ 12:21:31 PM Valves Phase:DefaultPhase AV : 0.0 @ 12:21:31 PM 0.0 @ 12:21:31 PM AV Mean Gradient: 0.0 @ 12:21:31 PM 0.0 @ 12:21:31 PM AV Flow: 234 @ 12:21:31 PM Clinical Evaluation EBL: 5mL-10mL Procedural Details Procedure Consent Obtained. Pre-Procedure Time Out. Identified patient by full name and date of as verbalized by the patient/guarantor. Does the consent match the physician's order: Yes. Accurate & Complete Informed Consent: Yes. Inpatient/Outpatient History & Physical on Chart: Yes. If H&P is completed, is and addenduem needed: No. Visualize and Verify Site with Patient/Guarantor: N/A. Relevant Radiology Images available: Yes. The risks, benefits, and alternatives of sedation and/or procedure were discussed by physician. The patient agrees to continue. Procedure started. [facility] Clinical Fraility Score: 4: Vulnerable. Transitional Nurse Indications: Cardiac Arrhythmia/VFib and Cardiogenic shock. Chest Pain Symptom Assessment: Asymptomatic. Cardiovascular Instability: Yes, if yes, Ventricular Arrhythmias. Correct patient, site and procedure confirmed by cath team. PERRLA. Strong, equal hand residential nurse bilaterally. Lungs clear x 5 lobes. IV Site on Arrival: 18 gauge in the right forearm. IV Site on Arrival: 18 gauge in the left anticubital. IV Fluids: 0.9% NaCl at KVO. 200 mL infused prior to labor standards director. Pre Procedural Pulses: bilateral posterior tibial was Doppled. Pre Procedural Pulses: bilateral dorsalis pedis was Doppled. bilateral groins was prepped with chloroprep then draped in the usual sterile fashion. Physician notified. Baseline sample Acquired. HR: 77 BPM. Physician arrived. Patient's family unavailable. Equipment: 6F - Femoral. Cardiac Cath Pack. ACIST Manifold Kit Model BT 2000. Heparinized Saline (2 units/mL), 1000 mL bag. Kit, Micropuncture. Physician scrubbed in. Immediate Pre-Procedure Time Out. Correct Patient: Yes; Correct Procedure: Yes; Correct Site: Yes; Correct Patient Position: Yes; Correct Supplies: Yes; Dried Flammable Prep: Yes; Blood Products Available: N/A;. Lidocaine 1% infiltrated to the right groin. Arterial access obtained with micropuncture set, unable to advance wire. Wire and needle out. Dr. Ferrera holding manual pressure. Cardiovascular Instability: Yes, if yes, Cardiogenic Shock. Arterial access obtained with micropuncture set. Patient arrived to the labor standards director on Levophed at 4 mcg/min and Cordarone at 0.5 mg/hr. Venous access obtained with a micropuncture set. [place]gefield-Darius catheter inserted. 0.025 swan wire in. 0.025 swan wire out. ABG drawn and sent with respiratory therapy. Oximetry samples were obtained. Normal venous range: 60-85%. Normal arterial range: 95-100%. Pressure measurements obtained. Wedgefield-Darius out. A 5 belarusian JL4 catheter in over the standard J wire. Multiple views taken of left coronary artery. Catheter removed over the standard wire. A 5 belarusian JR4 catheter in over the standard J wire. Multiple views taken of right coronary artery. Catheter redirected to the LV. EDP Sample taken: LV 93/11,33; HR: 62 BPM; SpO2: 96%. Pullback taken: LV 94/11,33; AO 100/64(78); Mean: 0mmHg, Peak to Peak: 0mmHg, SEP: 9sec/min; HR: 72 BPM; SpO2: 99%. Catheter removed over the standard wire. A Right femoral angiogram was performed to determine safe placement of closure device. A Angio-Seal VIP ([place]) was successful obtaining hemostatsis at the Right Femoral artery insertion site. Angioseal placed without complications. No signs or symptoms of hematoma noted. Sterile dressing applied per usual sterile fashion. Lot #[id number]. Exp. 2023-08-08. Venous Sheath removed and manual pressure held until hemostasis was achieved. Sterile 4x4 and Op-site applied to the puncture site. No oozing or hematoma noted. Post sheath removal instructions were given and the patient verbalized understanding. Post Procedure: Pulses reassessed and unchanged. PERRLA. Strong, equal hand residential nurse bilaterally. No VTE prophylaxis required. A Manual Compression was successful obtaining hemostatsis at the Right Femoral vein insertion site. Medication's Wasted: Other = Fentanyl 100 mcg. Medication's Wasted: Heparin = 1000 Units. Total IV fluids: 50 mL. Post-op diagnosis: Cardiogenic Shock/Non-Obstructive cardiomyopathy/Elevated right and left sided heart pressures. Complications: none. Estimated blood loss: 5mL-10mL. Responsiveness - Normal response to verbal stimuli; alert and oriented, PERRLA. Airway - Unaffected, no intervention required; spontaneous ventilation. Circulation: W/N/L, pulses unchanged. Nausea/Vomiting: No. Procedure completed. Patient transferred by bed to ICU. Vital chart was stopped. Access Site Site: Right Femoral artery Sheath Size: 6 Fr Hemostasis Method: Angio-Seal VIP ([place]) Hemostasis Success: Successful Site: Right Femoral vein Sheath Size: 6 Fr Hemostasis Method: Manual Compression Hemostasis Success: Successful Procedure Medications Start: 11:40 AM Stop: 11:40 AM Medication: Versed Amount: 1 mg Route: I.V. Start: 11:44 AM Stop: 11:44 AM Medication: Versed Amount: 1 mg Route: I.V. I, the attending physician, have reviewed and verified all procedure medications. Yes, all medications given per verbal order History/Risk Factors Hypertension: Yes Dyslipidemia: No Peripheral Arterial Disease (PAD): No Myocardial Infarction (IN): No Obesity: No Renal Disease: No Tobacco Use: Current/Recent(w/in 1 year) Prior Interventions PCI: No CABG: No Valve Surgery: No Report Signatures Finalized by Pola Ferrera MD on 01/25/2023 09:33 AM
--- NOTE | 2023-01-11 11:26 | W.PM.OPSUD ---
Surgery/Procedure H&P Update DATE OF PROCEDURE: January 11, 2023 DATE H&P PERFORMED: 01/10/23 H&P UPDATE INFORMATION: I have reviewed H&P completed within last 30 days, I have examined patient prior to procedure and No changes to prior documentation PREOP DIAGNOSIS: Ventricular tachycardia/ Ventricular fibrillation/ Cardiogenic shock PRIMARY INDICATION FOR PROCEDURE: Ventricular tachycardia/ Ventricular fibrillation/ Cardiogenic shock PLANNED PROCEDURE: Right heart cath+ Left heart cath+/- Percutaneous coronary intervention PATIENT REASSESSED PRIOR TO SEDATION, WITH NO CHANGE NOTED: Yes PHYSICAL EXAM: alert, oriented x 3, clear to auscultation bilaterally and regular rate & rhythm AIRWAY EVAL/ANESTHESIA PLAN: normal airway, ASA IV, Local Anesthesia, Risks, benefits & alternatives of sedation and/or procedure discussed and Patient agrees to continue as planned ADDITIONAL INFORMATION: Moderate sedation
[2023-01-11 11:57] LABS: Alveolar-Arterial Oxygen Gradi 5.7 mmHg (5-10); Blood Gas Operator Identificat AO; Blood Gas Sample Site Not specified; Blood Gas Sample Type Arterial; Carboxyhemoglobin 1.3 %THgb (0.4-20.1); HGB O2 Sat 89.1 % (95-100); Methemoglobin 0.2 % (0.4-1.5); Oxygen Device ROOM AIR; Total Hemoglobin 10.8 g/dL (12-16)
[2023-01-11 12:00] LABS: Alveolar-Arterial Oxygen Gradi 9.3 mmHg (5-10); Arterial Blood Gas Hematocrit 33.2 % (37-47); Blood Gas Operator Identificat PA; Blood Gas Sample Site Not specified; Blood Gas Sample Type Arterial; Carboxyhemoglobin 1.2 %THgb (0.4-20.1); Methemoglobin 0.9 % (0.4-1.5); Oxygen Device ROOM AIR; Total Hemoglobin 10.8 g/dL (12-16)
--- NOTE | 2023-01-11 12:32 | PM.MISC ---
Miscellaneous Note Purpose of Documentation: Brief procedure Note Note: Right heart cath/Lhc No significant Coronary artery disease noted RA pressure:24/22 (24)mmHg RV pressure : 51/11/25 mmHg PA pressure 60/33/43mmHg Catheter could not be wedged but LVEDP is 33mmHg PA sat 23mmHG AO sat 90% CO by Mary: 1.99L/min CI by Mary: 1.1 L/min/m2 Conclusion: Cardiogenic shock Severely elevated right and left sided cardiac pressures Non ischemic cardiomyopathy Recommendations: Can be started on inotropes. Obtain lactic acid Aggressive diuresis If no response, will need escalation of therapy to LV support device/ impella. Can also be transferred to tertiary care center for advanced heart failure therapies discussion
[2023-01-11] MEDS: DOBUTamine drip 500 MG/250 ML PREMIX 5.41 MG IV (13:40)
[2023-01-11] MEDS: HYDROcodone-acetaminophen 5-325 mg Tablet 1 TAB PO ×2 (13:47→20:30)
[2023-01-11 14:41] LABS: Lactate (Lactic Acid level) 2.3 mmol/L (0.5-2.2)
[2023-01-11] MEDS: citalopram 20 mg Tablet 40 MG PO (17:31)
[2023-01-11] MEDS: enoxaparin 40 mg/0.4 mL Syringe SUBCUT (17:31)
--- NOTE | 2023-01-11 18:45 | ECG_ITS ---
[facility] Test Date: 2023-01-11 Pat Name: Elena Pulliam Department: Room: [facility] Gender: Female Medical Records Analyst: : 1970 Requested By: Michael Hill Order Number: [id number] Arlette MD: Michael Hill M.D. Measurements Intervals [place] Rate: 81 P: 73 SC: 157 QRS: -29 QRSD: 137 T: 86 QT: 449 QTc: 524 Interpretive Statements SINUS RHYTHM INTRAVENTRICULAR CONDUCTION DELAY [130+ ms QRS DURATION] Compared to ECG 01/11/2023 10:10:09 Left-axis deviation no longer present Myocardial infarct finding no longer present Electronically Signed On 01-12-2023 0:14:37 CDT by Michael Hill M.D. [id number]
--- NOTE | 2023-01-11 18:47 | PC.NURSE ---
Dr. Hill notified of patient reporting sudden chest pain. EKG performed. See further charting.
--- NOTE | 2023-01-11 19:03 | PC.NURSE ---
Femoral access site dry and intact throughout this shift, pedal pulses present throughout. No hemotoma formation.
[2023-01-11] MEDS: zolpidem 5 mg Tablet 10 MG PO (20:30)
[2023-01-11 20:56] LABS: Protein Urine 1+ (Negative); Specific Gravity, Urine 1.015 (1.005-1.030); Urine Appearance Clear (CLEAR); Urine Color Yellow (Yellow); pH Urine 5 (5-7)
[2023-01-11 20:57] LABS: Add Urine Culture? Yes; Add Urine Microscopic? YES; Amorphous Sediment Urine 1+ /hpf; Bacteria Urine TRACE /hpf; Bilirubin Urine 1+ (Negative); Blood Urine 2+ (Negative); Glucose Urine UA Norm (Normal); Ketones Urine Negative (Negative); Leukocyte Esterase Urine Trace (Negative); Nitrate Urine Negative (Negative); RBC Urine 0-4 /hpf (0-2); Squamous Epithelial Cell Urine 0-4 /hpf (0-5); Urobilinogen Urine Norm (Negative); WBC Urine 25-40 /hpf (0-5)
--- NOTE | 2023-01-11 23:36 | P.PN_ITS ---
Subjective Subjective: Pain is a blood pressure has been running low in the 80s through the night. Has not had any recurrence of V-fib arrest. The device interrogation revealed a 10 episodes of ventricular fibrillation. She had appropriate discharges to 36 J. All of them were successfully converted. Patient is a BUN/creatinine CBC going up. She has been having episodes of chest pain rating to the back and the shoulders. There is severe chest pains. She was found to be diaphoretic with these episodes. The telemetry shows sinus rhythm with no arrhythmias. Medications: Medication Review Details: Current Medications Acetaminophen (Acetaminophen 325 Mg Tablet) 650 mg PO Q6H PRN PRN Reason: Mild/Mod Pain Or Temp >/= 101 Hydrocodone Bitart/Acetaminophen (Hydrocodone-Acetaminophen 5-325 Mg Tablet) 1 tab PO Q4H PRN PRN Reason: MODERATE PAIN Last Admin: 01/11/23 20:30 Dose: 1 tab Aspirin (Aspirin 81 Mg Ec Tablet) 162 mg PO QAM [facility] Last Admin: 01/11/23 05:15 Dose: 162 mg Carvedilol (Carvedilol 6.25 Mg Tablet) 6.25 mg PO BID@0900,2100 [facility] Last Admin: 01/11/23 08:20 Dose: Not Given Citalopram Hydrobromide (Citalopram 20 Mg Tablet) 40 mg PO QPM [facility] Last Admin: 01/11/23 17:31 Dose: 40 mg Enoxaparin Sodium (Enoxaparin 40 Mg/0.4 Ml Syringe) 40 mg SUBCUT Q24H [facility] Last Admin: 01/11/23 17:31 Dose: 40 mg Amiodarone HCl 900 mg/Dextrose/ IV Miscellaneous Supplies 518 mls @ 0 mls/hr IV .Q0M [facility]; Protocol Last Admin: 01/11/23 13:32 Dose: 0.5 mg/min, 17.27 mls/hr Sodium Chloride (Sodium Chloride 0.9%) 1,000 mls @ 125 mls/hr IV .Q8H [facility] Last Admin: 01/11/23 17:31 Dose: 125 mls/hr Norepinephrine Bitartrate 4 mg (/ Dextrose) 254 mls @ 0 mls/hr IV .Q0M [facility]; Protocol Last Admin: 01/11/23 22:30 Dose: 6 mcg/min, 22.86 mls/hr Dobutamine HCl/Dextrose (Dobutamine Drip) 500 mg in 250 mls @ 0 mls/hr IV .Q0M [facility]; Protocol Last Titration: 01/11/23 17:14 Dose: 5 mcg/kg/min, 10.82 mls/hr Magnesium Oxide (Magnesium Oxide 400 Mg Tablet) 200 mg PO QAM [facility] Last Admin: 01/11/23 05:15 Dose: 200 mg Metoclopramide HCl (Metoclopramide 5 Mg/Ml Sdv 2 Ml) 5 mg IVP Q6H PRN PRN Reason: NAUSEA AND VOMITING Last Admin: 01/11/23 04:52 Dose: 5 mg Montelukast Sodium (Montelukast Sodium 10 Mg Tablet) [facility] [place] Last Admin: 01/11/23 05:16 Dose: 10 mg Morphine Sulfate (Morphine 4 Mg/Ml Sdv 1 Ml) 2 mg IVP Q4H PRN PRN Reason: SEVERE PAIN Last Admin: 01/11/23 18:50 Dose: 2 mg Naloxone HCl (Naloxone 0.4 Mg/Ml Sdv) 0.1 mg IVP Q2M PRN PRN Reason: OPIATERV Nitroglycerin (Nitroglycerin 0.4 Mg Sublingual Tablet) 0.4 mg SUBLINGUAL Q5M PRN PRN Reason: Chest Pain Ondansetron HCl (Ondansetron 2 Mg/Ml Sdv 2 Ml) 4 mg IVP Q8H PRN PRN Reason: vomiting, or N/V if npo Last Admin: 01/11/23 20:39 Dose: 4 mg Pantoprazole Sodium (Pantoprazole Dr 40 Mg Tablet) 40 mg PO DAILY [facility] Last Admin: 01/11/23 08:22 Dose: 40 mg Polyethylene Glycol (Polyethylene Glycol 3350 Pkt 17 Gm) 17 gm PO DAILY [facility] Last Admin: 01/11/23 08:22 Dose: 17 gm Potassium Chloride (Potassium Chloride Er 20 Meq Tablet) [facility] [place] Last Admin: 01/11/23 05:16 Dose: 20 meq Sacubitril/Valsartan (Sacubitril/Valsartan 24-26 Mg Tablet) 4 each PO BID@0900,2100 [facility] Last Admin: 01/11/23 08:21 Dose: Not Given Zolpidem Tartrate (Zolpidem 5 Mg Tablet) 10 mg PO BEDTIME [facility] Last Admin: 01/11/23 20:30 Dose: 10 mg Vitals/I&O/Wt Last Vital Signs Temp 97.7 F 01/11/23 20:00 Pulse 85 01/11/23 22:00 Resp 13 01/11/23 20:45 BP 101/65 01/11/23 20:45 Pulse Ox 90 01/11/23 20:45 O2 Del Method 01/11/23 16:10 O2 Flow Rate 1 01/11/23 13:35 01/11/23 01/11/23 01/12/23 14:59 22:59 06:59 Intake Total 1199.820 / 8636.038 5235.292 / 2871.112 Output Total 525 / 525 Balance 1199.820 / 2309.401 8772.292 / 2346.112 Weight last 48 hrs Weight 159 lb Weight 160 lb Physical Exam 2 Narrative: GENERAL: The patient is alert and oriented times three. Not in any acute distress. HEENT: No significant pallor, icterus or lymphadenopathy.Oral cavity: There are no mucous membrane lesions. NECK: Trachea appears to be central. No masses noted. No JVD or thyromegaly appreciated. RESPIRATORY: Chest is symmetrical. No intercostals muscle retraction or any accessory muscle activation. There is no chest wall tenderness. Breath sounds are heard bilaterally. No rales or rhonchi heard. No evidence of any consolidation. BREASTS: Deferred. HEART: The heart sounds are normal. No S3 or S4. Short systolic murmur in the lower sternal border. No diastolic murmurs. No pericardial rub ABDOMEN: No vessel pulsations or distention. No tenderness. No organomegaly appreciated. Bowel sounds are normally heard. : Deferred. RECTAL: Deferred. LYMPHATIC: No lymphadenopathy noted in the neck. EXTREMITIES: No edema or cyanosis. No clubbing. MUSCULOSKELETAL: No acute joint deformities or swelling SKIN: There are no significant rashes or ecchymosis NEUROPSYCHIATRIC: The patient is alert and oriented x3. Appears to be in a good mood. No tremors or rigidity noted. Urinary Catheter Management: Leger: Cath Placed During This Visit: yes Reason for Continuing Indwelling Catheter: Accurate Measurement of Urinary Output in Critically Ill Patients Urinary Catheter Date of Insertion: 01/10/23 Urinary Catheter Time of Insertion: 15:48 Data 01/11/23 03:19 01/11/23 03:19 Other Labs: Laboratory Last Values WBC 8.6 10^3/uL (4.0-10.0) 01/11/23 03:19 RBC 2.88 10^6/uL (4.1-5.3) L 01/11/23 03:19 Hgb 9.7 g/dL (11.5-15.3) L 01/11/23 03:19 Hct 30.9 % (37.0-47.0) L 01/11/23 03:19 MCV 107.3 fl (81-99) H 01/11/23 03:19 MCH 33.7 pg (28.0-34.0) 01/11/23 03:19 MCHC 31.4 g/dL (30.0-36.0) 01/11/23 03:19 RDW 15.3 % (12.1-15.1) H 01/11/23 03:19 Plt Count 177 10^3/cmm (130-400) 01/11/23 03:19 MPV 11.8 fL (7.4-10.4) H 01/11/23 03:19 Neut % (Auto) 66.2 % 01/11/23 03:19 Lymph % (Auto) 25.1 % 01/11/23 03:19 [place] % (Auto) 7.3 % 01/11/23 03:19 Eos % (Auto) 0.2 % 01/11/23 03:19 Baso % (Auto) 0.7 % 01/11/23 03:19 Neut # (Auto) 5.66 10^3/uL (1.8-7.7) 01/11/23 03:19 Lymph # (Auto) 2.2 10^3/uL (0.8-4.8) 01/11/23 03:19 [place] # (Auto) 0.6 10^3/uL (0.2-0.9) 01/11/23 03:19 Eos # (Auto) 0.0 10^3/uL (0.0-0.8) 01/11/23 03:19 Baso # (Auto) 0.1 10^3/uL (0.0-0.1) 01/11/23 03:19 Nucleated RBC % (auto) 0 % 04/05/23 03:19 Nucleated RBCs # 0.0 /100WBC 01/11/23 03:19 PT 16.10 SECONDS (12.1-14.9) H 01/10/23 12:00 INR 1.25 (0.8-1.2) H 01/10/23 12:00 Specimen Type Arterial 01/11/23 11:50 Specimen Type Arterial 01/11/23 11:50 Sample Site Not specified 01/11/23 11:50 Sample Site Not specified 01/11/23 11:50 ABG pH 7.51 (7.35-7.45) H 01/10/23 12:04 ABG pCO2 24.3 mmHg (35-45) L 01/10/23 12:04 ABG pO2 251.0 mmHg (80.0-100.0) H 01/10/23 12:04 ABG HCO3 19.5 mmol/L (22-26) L 01/10/23 12:04 ABG O2 Saturation 99.4 01/10/23 12:04 ABG Base Excess -2.2 mmol/L (-2.0-2.0) L 01/10/23 12:04 Michi Test N/a 01/11/23 11:50 Michi Test N/a 01/11/23 11:50 A-a O2 Gradient 5.7 mmHg (5-10) 01/11/23 11:50 A-a O2 Gradient 9.3 mmHg (5-10) 01/11/23 11:50 Hematocrit 33.0 % (37-47) L 01/11/23 11:50 Hematocrit 33.2 % (37-47) L 01/11/23 11:50 Hgb O2 Saturation 22.0 % (95-100) L 01/11/23 11:50 Hgb O2 Saturation 89.1 % (95-100) L 01/11/23 11:50 Carboxyhemoglobin 1.2 %THgb (0.4-20.1) 01/11/23 11:50 Carboxyhemoglobin 1.3 %THgb (0.4-20.1) 01/11/23 11:50 Methemoglobin 0.2 % (0.4-1.5) L 01/11/23 11:50 Methemoglobin 0.9 % (0.4-1.5) 01/11/23 11:50 Total Hemoglobin 10.8 g/dL (12-16) L 01/11/23 11:50 Total Hemoglobin 10.8 g/dL (12-16) L 01/11/23 11:50 Sodium 138.0 mmol/L (131-143) 01/10/23 12:04 Potassium 3.8 mmol/L (3.5-5.0) 01/10/23 12:04 Glucose 179.0 mg/dL (70-115) H 01/10/23 12:04 Ionized Calcium 1.1 mmol/L (1.1-1.4) 01/10/23 12:04 O2 Delivery Device Room air 01/11/23 11:50 O2 Delivery Device Room air 01/11/23 11:50 O2 Liters/Min 15.0 % 01/10/23 12:04 FiO2 21.0 % 01/11/23 11:50 It Auditor ID Ao 01/11/23 11:50 It Auditor ID Pa 01/11/23 11:50 Sodium 140 mmol/L (136-145) 01/11/23 03:19 Potassium 3.7 mmol/L (3.5-5.1) 01/11/23 03:19 Chloride 101 mmol/L (98-107) 01/11/23 03:19 Carbon Dioxide 27 mmol/L (22-29) 01/11/23 03:19 Anion Gap 15.7 (5-19) 01/11/23 03:19 BUN 26 mg/dL (6-20) H 01/11/23 03:19 Creatinine 1.5 mg/dL (0.5-0.9) H 01/11/23 03:19 GFR Calculation 36.3 mL/min (90-130) L 01/11/23 03:19 Glucose 92 mg/dL (65-115) 01/11/23 03:19 Calculated Osmolality 294 mOsm/kg (285-295) 01/11/23 03:19 Lactate 2.3 mmol/L (0.5-2.2) H 01/11/23 14:00 Calcium 8.4 mg/dL (8.5-10.5) L 01/11/23 03:19 Magnesium 2.1 mg/dL (1.7-2.3) 01/11/23 03:19 Total Bilirubin 0.6 mg/dL (0.15-1.2) 01/11/23 03:19 AST 25 U/L (0-32) 01/11/23 03:19 ALT 18 U/L (0-33) 01/11/23 03:19 Alkaline Phosphatase 82 U/L (35-105) 01/11/23 03:19 Troponin T Baseline 19 ng/L (0-10) H 01/10/23 12:00 Troponin T 120 Minute 26.81 ng/L (0-10) H 01/10/23 14:17 Delta Troponin T 7.81 ABS# (0-10) 01/10/23 14:17 Troponin T Hi Sens 6Hr 30.12 ng/L (0-10) H 01/10/23 18:16 Troponin T Hi Sens 6Hr Delta 11.12 ng/L (0-12) 01/10/23 18:16 NT-Pro-B Natriuret Pep 20110 pg/mL (0-125) H 01/10/23 12:00 Total Protein 5.9 g/dL (6.6-8.7) L 01/11/23 03:19 Albumin 3.5 g/dL (3.5-5.2) 01/11/23 03:19 Globulin 2.4 g/dL (1.3-4.6) 01/11/23 03:19 Lipase 22 U/L (13-60) 01/10/23 12:00 Urine Color Yellow (Yellow) 01/11/23 20:03 Urine Appearance Clear (CLEAR) 01/11/23 20:03 Urine pH 5 (5-7) 01/11/23 20:03 Ur Specific Bynum 1.015 (1.005-1.030) 01/11/23 20:03 Urine Protein 1+ (Negative) H 01/11/23 20:03 Urine Glucose (UA) Norm (Normal) 01/11/23 20:03 Urine Ketones Negative (Negative) 01/11/23 20:03 Urine Blood 2+ (Negative) H 01/11/23 20:03 Urine Nitrate Negative (Negative) 01/11/23 20:03 Urine Bilirubin 1+ (Negative) H 01/11/23 20:03 Urine Urobilinogen Norm mg/dL (Negative) 01/11/23 20:03 Ur Leukocyte Esterase Trace (Negative) H 01/11/23 20:03 Urine RBC 0-4 /hpf (0-2) H 01/11/23 20:03 Urine WBC 25-40 /hpf (0-5) H 01/11/23 20:03 Ur Squamous Epith Cells 0-4 /hpf (0-5) H 01/11/23 20:03 Amorphous Sediment 1+ /hpf 01/11/23 20:03 Urine Bacteria Trace /hpf (NONE) 01/11/23 20:03 Other data: The EKG from today 01/11/2023 revealed sinus rhythm with a diffuse nonspecific T wave changes. Poor R wave progression. Nonspecific IVCD. Minimal left axis deviation. No significant changes from the previous EKG. A&P Assessment and plan (1) Chest pain: Since episodes of chest pain with diaphoresis, may suggest underlying coronary artery disease. Apparently she had a unremarkable Myocardial perfusion imaging last year. She did not have any significant obstructive coronary artery disease by angiogram, done many years ago. (2) Encounter for testing following appropriate discharge of implantable cardioverter-defibrillator (ICD): We will continue on the IV amiodarone. (3) Nonischemic cardiomyopathy: Patient may continue on the current medications. Because of the hypotension, we may hold off on the carvedilol and the Entresto for the time being. (4) Chronic systolic (congestive) heart failure: Careful IV diuresis. Patient seems to have a persistently high BNP. We will continue to optimize medications. (5) GERRI (acute kidney injury): Current related to the arrhythmia/low output state (6) Anemia: Could be multifactorial. Plan The echocardiogram done revealed an ejection fraction of 15 to 20%. Reviewed the hypokinesia left-ventricular was noted. In view of the worsening LV systolic function, recurrent ventricular fibrillation and the recurrent episodes of chest pain in order to further evaluate the coronary status, a cardiac catheterization would be appropriate. This was discussed with the patient detail with the risk and benefits. Patient understood this well and consented to proceed. I will be asking my colleague Dr. Ferrera to perform the procedure. Patient the angiogram findings, further recommendations will be made Attestations Medical Necessity Statement*: Patient requires continued hospital stay for close monitoring and further management Coding Level of Care Code 83087 Diagnoses Chest pain R07.9 Encounter for testing following appropriate discharge of implantable cardioverter-defibrillator (ICD) Z45.02 Nonischemic cardiomyopathy I42.8 Chronic systolic (congestive) heart failure I50.22 GERRI (acute kidney injury) N17.9 Anemia D64.9
[2023-01-12] VITALS (89 sets, daily range): BP systolic 94–129; BP diastolic 54–86; PULSE 79–94; RESP 12–35; TEMP 36.5–36.6; O2SAT 76–100
[2023-01-12] MEDS: morphine 4 mg/mL SDV 1 mL 2 MG IVP ×4 (01:04→16:56)
[2023-01-12] MEDS: metoclopramide 5 mg/mL SDV 2 mL IVP ×2 (01:18→20:15)
[2023-01-12] MEDS: sodium chloride 0.9% 1,000 ML 125 ML IV ×3 (01:20→19:26)
[2023-01-12] MEDS: HYDROcodone-acetaminophen 5-325 mg Tablet 1 TAB PO ×3 (03:51→17:27)
--- NOTE | 2023-01-12 04:08 | ECG_ITS ---
[facility] Test Date: 2023-01-12 Pat Name: Elena Pulliam Department: Room: [facility] Gender: Female Data Entry Coordinator: : 1970 Requested By: Sima Gonzales Order Number: [id number] Arlette MD: Pola Ferrera M.D. Measurements Intervals [place] Rate: 90 P: 64 MO: 159 QRS: -76 QRSD: 138 T: 61 QT: 431 QTc: 529 Interpretive Statements SINUS RHYTHM LEFT AXIS DEVIATION [QRS AXIS < -30] INTRAVENTRICULAR CONDUCTION DELAY [130+ ms QRS DURATION] POSSIBLE ANTERIOR MYOCARDIAL INFARCTION , OF INDETERMINATE AGE [30 ms Q WAVE IN V3/V4, OR R < 0.2 mV IN V4] Compared to ECG 01/11/2023 18:49:44 Left-axis deviation now present Myocardial infarct finding now present Electronically Signed On 01-12-2023 16:39:08 CDT by Pola Ferrera M.D. [id number]
[2023-01-12] MEDS: nitroglycerin 0.4 mg sublingual Tablet SUBLINGUAL ×3 (04:29→15:11)
[2023-01-12] MEDS: ondansetron 2 mg/ML SDV 2 mL 4 MG IVP ×2 (04:39→12:39)
[2023-01-12] MEDS: potassium chloride ER 20 mEq Tablet PO (05:45)
[2023-01-12] MEDS: montelukast sodium 10 mg Tablet PO (05:45)
[2023-01-12] MEDS: aspirin 81 mg EC Tablet 162 MG PO (05:45)
[2023-01-12] MEDS: magnesium oxide 400 mg tablet 200 MG PO (05:46)
[2023-01-12] MEDS: pantoprazole DR 40 mg Tablet PO (08:39)
[2023-01-12] MEDS: polyethylene glycol 3350 Pkt 17 gm PO (08:40)
[2023-01-12 09:53] LABS: Basophils # 0.1 10^3/uL (0.0-0.1); Basophils % 0.8 %; Eosinophils % 0.1 %; Hematocrit 33.2 % (37.0-47.0); Hemoglobin 10.8 g/dL (11.5-15.3); Lymphocytes # 1.6 10^3/uL (0.8-4.8); Lymphocytes % 16.6 %; Mean Corpuscular HGB Conc 32.5 g/dL (30.0-36.0); Mean Corpuscular Hemoglobin 34.2 pg (28.0-34.0); Mean Corpuscular Volume 105.1 fl (81-99); Mean Platelet Volume 11.8 fL (7.4-10.4); Monocytes # 0.6 10^3/uL (0.2-0.9); Monocytes % 6.2 %; Neutrophils # 7.35 10^3/uL (1.8-7.7); Neutrophils % 75.6 %; Nucleated Red Blood Cells % 0 %; Platelet Count 152 10^3/cmm (130-400); Red Blood Count 3.16 10^6/uL (4.1-5.3); Red Cell Distribution Width 15.3 % (12.1-15.1); White Blood Count 9.7 10^3/uL (4.0-10.0)
[2023-01-12 10:16] LABS: Alanine Aminotransferase 75 U/L (0-33); Albumin Level 3.5 g/dL (3.5-5.2); Alkaline Phosphatase 81 U/L (35-105); Blood Urea Nitrogen 17 mg/dL (6-20); Calcium 8.1 mg/dL (8.5-10.5); Carbon Dioxide 19 mmol/L (22-29); Chloride 104 mmol/L (98-107); Globulin 1.8 g/dL (1.3-4.6); Glucose 124 mg/dL (65-115); Osmolality Calculated 285 mOsm/kg (285-295); Sodium 136 mmol/L (136-145); Total Bilirubin 0.5 mg/dL (0.15-1.2); Total Protein 5.3 g/dL (6.6-8.7)
[2023-01-12 10:17] LABS: Anion Gap 17.6 (5-19)
[2023-01-12 10:18] LABS: Aspartate Amino Transferase 104 U/L (0-32); Potassium 4.6 mmol/L (3.5-5.1)
--- NOTE | 2023-01-12 13:23 | XR_ITS ---
WS: [id number] XR chest 1V portable [id number] REASON FOR EXAM: Post PICC insertion FINDINGS: There is been a right arm PICC line placement. The tip is in good position at the cavoatrial junction . The chest is otherwise unchanged compared to 01/10/2023. XR/XR chest 1V portable [id number] IMPRESSION: PICC line placement as above.
[2023-01-12] MEDS: amiodarone 200 mg Tablet 400 MG PO (15:44)
--- NOTE | 2023-01-12 16:48 | P.PN_ITS ---
Subjective Subjective: Patient underwent coronary angiogram yesterday which did not show any significant lesions. Patient still continues to complain of intermittent chest discomfort. It is relieved with nitro and opiates. Norepinephrine has been titrated off. Amiodarone IV to be converted to p.o. today. Dobutamine titrated down to 2.5 this afternoon. Medications: Reviewed: Yes Medication Review Details: Current Medications Acetaminophen (Acetaminophen 325 Mg Tablet) 650 mg PO Q6H PRN PRN Reason: Mild/Mod Pain Or Temp >/= 101 Hydrocodone Bitart/Acetaminophen (Hydrocodone-Acetaminophen 5-325 Mg Tablet) 1 tab PO Q4H PRN PRN Reason: MODERATE PAIN Last Admin: 01/11/23 20:30 Dose: 1 tab Aspirin (Aspirin 81 Mg Ec Tablet) 162 mg PO QAM [facility] Last Admin: 01/11/23 05:15 Dose: 162 mg Carvedilol (Carvedilol 6.25 Mg Tablet) 6.25 mg PO BID@0900,2100 [facility] Last Admin: 01/11/23 08:20 Dose: Not Given Citalopram Hydrobromide (Citalopram 20 Mg Tablet) 40 mg PO QPM [facility] Last Admin: 01/11/23 17:31 Dose: 40 mg Enoxaparin Sodium (Enoxaparin 40 Mg/0.4 Ml Syringe) 40 mg SUBCUT Q24H [facility] Last Admin: 01/11/23 17:31 Dose: 40 mg Amiodarone HCl 900 mg/Dextrose/ IV Miscellaneous Supplies 518 mls @ 0 mls/hr IV .Q0M [facility]; Protocol Last Admin: 01/11/23 13:32 Dose: 0.5 mg/min, 17.27 mls/hr Sodium Chloride (Sodium Chloride 0.9%) 1,000 mls @ 125 mls/hr IV .Q8H [facility] Last Admin: 01/11/23 17:31 Dose: 125 mls/hr Norepinephrine Bitartrate 4 mg (/ Dextrose) 254 mls @ 0 mls/hr IV .Q0M [facility]; Protocol Last Admin: 01/11/23 22:30 Dose: 6 mcg/min, 22.86 mls/hr Dobutamine HCl/Dextrose (Dobutamine Drip) 500 mg in 250 mls @ 0 mls/hr IV .Q0M [facility]; Protocol Last Titration: 01/11/23 17:14 Dose: 5 mcg/kg/min, 10.82 mls/hr Magnesium Oxide (Magnesium Oxide 400 Mg Tablet) [facility] [place] [facility] Admin: 01/11/23 05:15 Dose: 200 mg Metoclopramide HCl (Metoclopramide 5 Mg/Ml Sdv 2 Ml) 5 mg IVP Q6H PRN PRN Reason: NAUSEA AND VOMITING Last Admin: 01/11/23 04:52 Dose: 5 mg Montelukast Sodium (Montelukast Sodium 10 Mg Tablet) [facility] [place] Last Admin: 01/11/23 05:16 Dose: 10 mg Morphine Sulfate (Morphine 4 Mg/Ml Sdv 1 Ml) 2 mg IVP Q4H PRN PRN Reason: SEVERE PAIN Last Admin: 01/11/23 18:50 Dose: 2 mg Naloxone HCl (Naloxone 0.4 Mg/Ml Sdv) 0.1 mg IVP Q2M PRN PRN Reason: OPIATERV Nitroglycerin (Nitroglycerin 0.4 Mg Sublingual Tablet) 0.4 mg SUBLINGUAL Q5M PRN PRN Reason: Chest Pain Ondansetron HCl (Ondansetron 2 Mg/Ml Sdv 2 Ml) 4 mg IVP Q8H PRN PRN Reason: vomiting, or N/V if npo Last Admin: 01/11/23 20:39 Dose: 4 mg Pantoprazole Sodium (Pantoprazole Dr 40 Mg Tablet) 40 mg PO DAILY [facility] Last Admin: 01/11/23 08:22 Dose: 40 mg Polyethylene Glycol (Polyethylene Glycol 3350 Pkt 17 Gm) 17 gm PO DAILY [facility] Last Admin: 01/11/23 08:22 Dose: 17 gm Potassium Chloride (Potassium Chloride Er 20 Meq Tablet) [facility] [place] Last Admin: 01/11/23 05:16 Dose: 20 meq Sacubitril/Valsartan (Sacubitril/Valsartan 24-26 Mg Tablet) 4 each PO BID@0900,2100 [facility] Last Admin: 01/11/23 08:21 Dose: Not Given Zolpidem Tartrate (Zolpidem 5 Mg Tablet) 10 mg PO BEDTIME [facility] Last Admin: 01/11/23 20:30 Dose: 10 mg Vitals/I&O/Wt Last Vital Signs Temp 97.7 F 01/12/23 04:00 Pulse 79 01/12/23 16:00 Resp 27 H 01/12/23 16:00 BP 106/69 01/12/23 16:00 Pulse Ox 99 01/12/23 16:00 O2 Del Method 01/12/23 16:00 O2 Flow Rate 2 01/12/23 16:00 01/12/23 01/12/23 01/12/23 06:59 14:59 22:59 Intake Total 1254.873 / 4125.985 1403.055 / 1403.055 20.017 / 1423.072 Output Total 250 / 750 200 / 200 Balance 1004.873 / 3375.985 1203.055 / 1203.055 20.017 / 1223.072 Physical Exam Narrative: General: No acute distress, AO x3 HEENT: PERRLA, pupils bilaterally equal and reactive, pallors not present Chest: Normal vesicular breath sounds, no added sounds, equal good air entry bilaterally CVS: S1-S2 regular, no murmurs, no tachycardia, no gallops, no rubs Abdomen: Soft, nontender, no organomegaly, bowel sounds present Neuro: No focal deficits, no facial deformity, AO x3, power 5/5 in all limbs Urinary Catheter Management: Leger: Cath Placed During This Visit: yes Reason for Continuing Indwelling Catheter: Accurate Measurement of Urinary Output in Critically Ill Patients Urinary Catheter Date of Insertion: 01/10/23 Urinary Catheter Time of Insertion: 15:48 Data 01/12/23 09:39 01/12/23 09:39 A&P Assessment and plan (1) Idiopathic ventricular fibrillation: (2) Defibrillator discharge: (3) Nonischemic cardiomyopathy: (4) CHF (congestive heart failure): (5) Cardiogenic shock: (6) Chronic systolic (congestive) heart failure: Plan 53-year-old lady with known ischemic cardiomyopathy, recently admitted here for CHF exacerbation presented to the emergency room with her ICD firing 5 times. Her ICD fired an additional 2 times after presenting here. Patient was also complaining of chest pain. Troponin series unremarkable. Echocardiogram was performed which showed her ejection fraction has not dropped to 15 to 20%. Left ventricular wall was hypokinetic. In view of worsening LV systolic function and recurrent V-fib with ongoing chest pain patient underwent coronary angiogram on January 10, 2023. No gross lesions were found. Cause of her cardiomyopathy remains uncertain. After angiogram, patient needed to be placed on pressors including norepinephrine and dobutamine due to hypotension, likely cardiogenic shock from poor EF. Currently her norepinephrine has been titrated off. Dobutamine is coming down at 2.5 mics. For her V-fib, she was started on amiodarone infusion upon admission, today we will convert her to 400 mg p.o. twice daily. We will monitor with these changes today. Holding Entresto due to hypotension. Holding carvedilol also due to hypotension. Current hospital course also notable for GERRI, creatinine is currently improving at 1.1. Suspect that her chest pain may be related to recurrent defibrillation, however given that this is still ongoing will obtain a VQ scan to evaluate for possible PE. Avoiding a CTA given her recent GERRI and the fact that she had just r eceived contrast for an angiogram. Most recent CTA from January 02 was negative. Attestations Medical Necessity Statement*: Taper down pressors today, DC IV amiodarone and switch to oral, closely monitor in the ICU with these interventions. Coding Level of Care Code Critical Care >/= 30 minutes Diagnoses Idiopathic ventricular fibrillation I49.01 Defibrillator discharge Z45.02 Nonischemic cardiomyopathy I42.8 CHF (congestive heart failure) I50.9 Cardiogenic shock R57.0 Chronic systolic (congestive) heart failure I50.22
[2023-01-12] MEDS: citalopram 20 mg Tablet 40 MG PO (17:26)
[2023-01-12] MEDS: enoxaparin 40 mg/0.4 mL Syringe SUBCUT (17:31)
--- NOTE | 2023-01-12 19:00 | PC.NURSE ---
Shift Summary: Patient titrated off of dobutamine at 1542. Transitioned to oral amiodarone. No arrythmias noted today. Urine output has only been 200mL for entire shift, but creatinine improved compared to yesterday, physician is aware. PICC line placed. Dressing needs to be changed tommorow.
[2023-01-12] MEDS: zolpidem 5 mg Tablet 10 MG PO (20:16)
--- NOTE | 2023-01-12 21:37 | P.PN_ITS ---
Subjective Subjective: Patient is feeling better. The Levophed is weaned off. Systolic blood pressure stays above 100. Currently on Dobutrex 5 mics per KG per minute. Urine output seems to be slowly improving. Total of 400 cc of urine output through the night. The creatinine level has come down to 1.1 Medications: Medication Review Details: Current Medications Acetaminophen (Acetaminophen 325 Mg Tablet) 650 mg PO Q6H PRN PRN Reason: Mild/Mod Pain Or Temp >/= 101 Hydrocodone Bitart/Acetaminophen (Hydrocodone-Acetaminophen 5-325 Mg Tablet) 1 tab PO Q4H PRN PRN Reason: MODERATE PAIN Last Admin: 01/12/23 17:27 Dose: 1 tab Amiodarone HCl (Amiodarone 200 Mg Tablet) 400 mg PO BID [facility] Last Admin: 01/12/23 16:35 Dose: Not Given Aspirin (Aspirin 81 Mg Ec Tablet) 162 mg PO QAM [facility] Last Admin: 01/12/23 05:45 Dose: 162 mg Carvedilol (Carvedilol 6.25 Mg Tablet) 6.25 mg PO BID@0900,2100 [facility] Last Admin: 01/11/23 08:20 Dose: Not Given Citalopram Hydrobromide (Citalopram 20 Mg Tablet) 40 mg PO QPM [facility] Last Admin: 01/12/23 17:26 Dose: 40 mg Enoxaparin Sodium (Enoxaparin 40 Mg/0.4 Ml Syringe) 40 mg SUBCUT Q24H [facility] Last Admin: 01/12/23 17:31 Dose: 40 mg Sodium Chloride (Sodium Chloride 0.9%) 1,000 mls @ 125 mls/hr IV .Q8H [facility] Last Admin: 01/12/23 19:26 Dose: 125 mls/hr Norepinephrine Bitartrate 4 mg (/ Dextrose) 254 mls @ 0 mls/hr IV .Q0M [facility]; Protocol Last Titration: 01/12/23 04:30 Dose: 0 mcg/min, 0 mls/hr Dobutamine HCl/Dextrose (Dobutamine Drip) 500 mg in 250 mls @ 0 mls/hr IV .Q0M [facility]; Protocol Last Titration: 01/12/23 15:42 Dose: 0 mcg/kg/min, 0 mls/hr Magnesium Oxide (Magnesium Oxide 400 Mg Tablet) 200 [facility] [place] Last Admin: 01/12/23 05:46 Dose: 200 mg Metoclopramide HCl (Metoclopramide 5 Mg/Ml Sdv 2 Ml) 5 mg IVP Q6H PRN PRN Reason: NAUSEA AND VOMITING Last Admin: 01/12/23 20:15 Dose: 5 mg Montelukast Sodium (Montelukast Sodium 10 Mg Tablet) 10 mg PO QAM [facility] Last Admin: 01/12/23 05:45 Dose: 10 mg Morphine Sulfate (Morphine 4 Mg/Ml Sdv 1 Ml) 2 mg IVP Q4H PRN PRN Reason: SEVERE PAIN Last Admin: 01/12/23 16:56 Dose: 2 mg Naloxone HCl (Naloxone 0.4 Mg/Ml Sdv) 0.1 mg IVP Q2M PRN PRN Reason: OPIATERV Nitroglycerin (Nitroglycerin 0.4 Mg Sublingual Tablet) 0.4 mg SUBLINGUAL Q5M PRN PRN Reason: Chest Pain Last Admin: 01/12/23 15:11 Dose: 0.4 mg Ondansetron HCl (Ondansetron 2 Mg/Ml Sdv 2 Ml) 4 mg IVP Q8H PRN PRN Reason: vomiting, or N/V if npo Last Admin: 01/12/23 12:39 Dose: 4 mg Pantoprazole Sodium (Pantoprazole Dr 40 Mg Tablet) 40 mg PO DAILY [facility] Last Admin: 01/12/23 08:39 Dose: 40 mg Polyethylene Glycol (Polyethylene Glycol 3350 Pkt 17 Gm) 17 gm PO DAILY [facility] Last Admin: 01/12/23 08:40 Dose: 17 gm Potassium Chloride (Potassium Chloride Er 20 Meq Tablet) 20 meq [facility] [place] Last Admin: 01/12/23 05:45 Dose: 20 meq Sacubitril/Valsartan (Sacubitril/Valsartan 24-26 Mg Tablet) 4 each PO BID@0900,2100 [facility] Last Admin: 01/11/23 08:21 Dose: Not Given Zolpidem Tartrate (Zolpidem 5 Mg Tablet) 10 mg PO BEDTIME [facility] Last Admin: 01/12/23 20:16 Dose: 10 mg Vitals/I&O/Wt Last Vital Signs Temp 97.9 F 01/12/23 19:45 Pulse 85 01/12/23 20:00 Resp 26 H 01/12/23 20:00 BP 105/79 01/12/23 20:00 Pulse Ox 98 01/12/23 20:00 O2 Del Method 01/12/23 20:00 O2 Flow Rate 2 01/12/23 20:00 01/12/23 01/12/23 01/12/23 06:59 14:59 22:59 Intake Total 1254.873 / 4125.985 1403.055 / 0605.894 3328.017 / 2823.072 Output Total 250 / 750 200 / 200 30 / 230 Balance 1004.873 / 3375.985 1203.055 / 6455.066 9834.017 / 2593.072 Physical Exam Narrative: GENERAL: The patient is alert and oriented times three. Not in any acute distress. HEENT: No significant pallor, icterus or lymphadenopathy.Oral cavity: There are no mucous membrane lesions. NECK: Trachea appears to be central. No masses noted. No JVD or thyromegaly appreciated. RESPIRATORY: Chest is symmetrical. No intercostals muscle retraction or any accessory muscle activation. There is no chest wall tenderness. Breath sounds are heard bilaterally. No rales or rhonchi heard. No evidence of any consolidation. BREASTS: Deferred. HEART: The heart sounds are normal. No S3 or S4. Short systolic murmur at the left sternal border. No pericardial rub ABDOMEN: No vessel pulsations or distention. No tenderness. No organomegaly appreciated. Bowel sounds are normally heard. : Deferred. RECTAL: Deferred. LYMPHATIC: No lymphadenopathy noted in the neck or groin. EXTREMITIES: No edema or cyanosis. No clubbing. Peripheral pulses are palpated in fairly good volume and amplitude MUSCULOSKELETAL: No acute joint deformities or swelling SKIN: There are no significant scars or skin rash noted. NEUROPSYCHIATRIC: The patient is alert and oriented x3. Appears to be in a good mood. No tremors or rigidity noted. Urinary Catheter Management: Leger: Cath Placed During This Visit: yes Reason for Continuing Indwelling Catheter: Accurate Measurement of Urinary Output in Critically Ill Patients Urinary Catheter Date of Insertion: 01/10/23 Urinary Catheter Time of Insertion: 15:48 Data 01/12/23 09:39 01/12/23 09:39 Other Labs: Laboratory Last Values WBC 9.7 10^3/uL (4.0-10.0) 01/12/23 09:39 RBC 3.16 10^6/uL (4.1-5.3) L 01/12/23 09:39 Hgb 10.8 g/dL (11.5-15.3) L 01/12/23 09:39 Hct 33.2 % (37.0-47.0) L 01/12/23 09:39 MCV 105.1 fl (81-99) H 01/12/23 09:39 MCH 34.2 pg (28.0-34.0) H 01/12/23 09:39 MCHC 32.5 g/dL (30.0-36.0) 01/12/23 09:39 RDW 15.3 % (12.1-15.1) H 01/12/23 09:39 Plt Count 152 10^3/cmm (130-400) 01/12/23 09:39 MPV 11.8 fL (7.4-10.4) H 01/12/23 09:39 Neut % (Auto) 75.6 % 01/12/23 09:39 Lymph % (Auto) 16.6 % 01/12/23 09:39 Nuckolls % (Auto) 6.2 % 01/12/23 09:39 Eos % (Auto) 0.1 % 01/12/23 09:39 Baso % (Auto) 0.8 % 01/12/23 09:39 Neut # (Auto) 7.35 10^3/uL (1.8-7.7) 01/12/23 09:39 Lymph # (Auto) 1.6 10^3/uL (0.8-4.8) 01/12/23 09:39 Nuckolls # (Auto) 0.6 10^3/uL (0.2-0.9) 01/12/23 09:39 Eos # (Auto) 0.0 10^3/uL (0.0-0.8) 01/12/23 09:39 Baso # (Auto) 0.1 10^3/uL (0.0-0.1) 01/12/23 09:39 Nucleated RBC % (auto) 0 % 01/12/23 09:39 Nucleated RBCs # 0.0 /100WBC 01/12/23 09:39 PT 16.10 SECONDS (12.1-14.9) H 01/10/23 12:00 INR 1.25 (0.8-1.2) H 01/10/23 12:00 Specimen Type Arterial 01/11/23 11:50 Specimen Type Arterial 01/11/23 11:50 Sample Site Not specified 01/11/23 11:50 Sample Site Not specified 01/11/23 11:50 ABG pH 7.51 (7.35-7.45) H 01/10/23 12:04 ABG pCO2 24.3 mmHg (35-45) L 01/10/23 12:04 ABG pO2 251.0 mmHg (80.0-100.0) H 01/10/23 12:04 ABG HCO3 19.5 mmol/L (22-26) L 01/10/23 12:04 ABG O2 Saturation 99.4 01/10/23 12:04 ABG Base Excess -2.2 mmol/L (-2.0-2.0) L 01/10/23 12:04 Michi Test N/a 01/11/23 11:50 Michi Test N/a 01/11/23 11:50 A-a O2 Gradient 5.7 mmHg (5-10) 01/11/23 11:50 A-a O2 Gradient 9.3 mmHg (5-10) 01/11/23 11:50 Hematocrit 33.0 % (37-47) L 01/11/23 11:50 Hematocrit 33.2 % (37-47) L 01/11/23 11:50 Hgb O2 Saturation 22.0 % (95-100) L 01/11/23 11:50 Hgb O2 Saturation 89.1 % (95-100) L 01/11/23 11:50 Carboxyhemoglobin 1.2 %THgb (0.4-20.1) 01/11/23 11:50 Carboxyhemoglobin 1.3 %THgb (0.4-20.1) 01/11/23 11:50 Methemoglobin 0.2 % (0.4-1.5) L 01/11/23 11:50 Methemoglobin 0.9 % (0.4-1.5) 01/11/23 11:50 Total Hemoglobin 10.8 g/dL (12-16) L 01/11/23 11:50 Total Hemoglobin 10.8 g/dL (12-16) L 01/11/23 11:50 Sodium 138.0 mmol/L (131-143) 01/10/23 12:04 Potassium 3.8 mmol/L (3.5-5.0) 01/10/23 12:04 Glucose 179.0 mg/dL (70-115) H 01/10/23 12:04 Ionized Calcium 1.1 mmol/L (1.1-1.4) 01/10/23 12:04 O2 Delivery Device Room air 01/11/23 11:50 O2 Delivery Device Room air 01/11/23 11:50 O2 Liters/Min 15.0 % 01/10/23 12:04 FiO2 21.0 % 01/11/23 11:50 Tow Truck Driver ID Ao 01/11/23 11:50 Tow Truck Driver ID Pa 01/11/23 11:50 Sodium 136 mmol/L (136-145) 01/12/23 09:39 Potassium 4.6 mmol/L (3.5-5.1) 01/12/23 09:39 Chloride 104 mmol/L (98-107) 01/12/23 09:39 Carbon Dioxide 19 mmol/L (22-29) L 01/12/23 09:39 Anion Gap 17.6 (5-19) 01/12/23 09:39 BUN 17 mg/dL (6-20) 01/12/23 09:39 Creatinine 1.1 mg/dL (0.5-0.9) H 01/12/23 09:39 GFR Calculation 52.0 mL/min (90-130) L 01/12/23 09:39 Glucose 124 mg/dL (65-115) H 01/12/23 09:39 Calculated Osmolality 285 mOsm/kg (285-295) 01/12/23 09:39 Lactate 2.3 mmol/L (0.5-2.2) H 01/11/23 14:00 Calcium 8.1 mg/dL (8.5-10.5) L 01/12/23 09:39 Magnesium 2.1 mg/dL (1.7-2.3) 01/11/23 03:19 Total Bilirubin 0.5 mg/dL (0.15-1.2) 01/12/23 09:39 AST 104 U/L (0-32) H 01/12/23 09:39 ALT 75 U/L (0-33) H 01/12/23 09:39 Alkaline Phosphatase 81 U/L (35-105) 01/12/23 09:39 Troponin T Baseline 19 ng/L (0-10) H 01/10/23 12:00 Troponin T 120 Minute 26.81 ng/L (0-10) H 01/10/23 14:17 Delta Troponin T 7.81 ABS# (0-10) 01/10/23 14:17 Troponin T Hi Sens 6Hr 30.12 ng/L (0-10) H 01/10/23 18:16 Troponin T Hi Sens 6Hr Delta 11.12 ng/L (0-12) 01/10/23 18:16 NT-Pro-B Natriuret Pep 17543 pg/mL (0-125) H 01/10/23 12:00 Total Protein 5.3 g/dL (6.6-8.7) L 01/12/23 09:39 Albumin 3.5 g/dL (3.5-5.2) 01/12/23 09:39 Globulin 1.8 g/dL (1.3-4.6) 01/12/23 09:39 Lipase 22 U/L (13-60) 01/10/23 12:00 Urine Color Yellow (Yellow) 01/11/23 20:03 Urine Appearance Clear (CLEAR) 01/11/23 20:03 Urine pH 5 (5-7) 01/11/23 20:03 Ur Specific Norris 1.015 (1.005-1.030) 01/11/23 20:03 Urine Protein 1+ (Negative) H 01/11/23 20:03 Urine Glucose (UA) Norm (Normal) 01/11/23 20:03 Urine Ketones Negative (Negative) 01/11/23 20:03 Urine Blood 2+ (Negative) H 01/11/23 20:03 Urine Nitrate Negative (Negative) 01/11/23 20:03 Urine Bilirubin 1+ (Negative) H 01/11/23 20:03 Urine Urobilinogen Norm mg/dL (Negative) 01/11/23 20:03 Ur Leukocyte Esterase Trace (Negative) H 01/11/23 20:03 Urine RBC 0-4 /hpf (0-2) H 01/11/23 20:03 Urine WBC 25-40 /hpf (0-5) H 01/11/23 20:03 Ur Squamous Epith Cells 0-4 /hpf (0-5) H 01/11/23 20:03 Amorphous Sediment 1+ /hpf 01/11/23 20:03 Urine Bacteria Trace /hpf (NONE) 01/11/23 20:03 Other data: Right heart catheterization yesterday RA pressure:24/22 (24)mmHg RV pressure : 51/11/25 mmHg PA pressure 60/33/43mmHg Catheter could not be wedged but LVEDP is 33mmHg PA sat 73mmHG? AO sat 90% CO by Mary: 1.99L/min CI by Mary: 1.1 L/min/m2 A&P Assessment and plan (1) Chest pain: Patient had emergency cardiac catheterization yesterday. No significant obstructive coronary disease was noted. She had moderately severe pulmonary hypertension with a mean PA pressure of 43 mmHg. Her LVEDP was 33 mmHg. The cardiac index was 1.1. She was started on a Dobutrex drip yesterday. (2) Encounter for testing following appropriate discharge of implantable cardioverter-defibrillator (ICD): The IV amiodarone may be switched to p.o. once the current infusion is finished. May be started on amiodarone 400 mg p.o. twice daily. The dose need to be tapered down. (3) Nonischemic cardiomyopathy: The carvedilol and the Entresto are on hold. We may slowly restart this medication. We may restart the carvedilol at a reduced dose of 3.125 mg p.o. twice daily today. If the blood pressure is holding up, we may start her on Entresto tomorrow. (4) Chronic systolic (congestive) heart failure: Careful IV diuresis. Patient seems to have a persistently high BNP. We will continue to optimize medications. May continue on the current medications as it is. She also may need to be started on Jardiance 10 mg p.o. daily as an outpatient to optimize the GDMT (5) GERRI (acute kidney injury): Current related to the arrhythmia/low output state. The kidney function has improved (6) Anemia: Could be multifactorial. Seems to be stable. Plan In view of the patient's recurrent episodes of decompensated heart failure and recurrent ventricular fibrillation with a significant decline in the LV ejection fraction, she may benefit from FOOD SERVICE-D. I discussed this with Dr. Basilio the shark biologist at the [facility]. If the patient's clinical status remains stable after discontinuing the IV medications, she may be discharged home and will see Dr. Basilio as an outpatient. Based on the clinical progress, further recommendations will be made Attestations Medical Necessity Statement*: Patient requires continued hospital stay for close monitoring and further management Coding Level of Care Code 74341 Diagnoses Chest pain R07.9 Encounter for testing following appropriate discharge of implantable cardioverter-defibrillator (ICD) Z45.02 Nonischemic cardiomyopathy I42.8 Chronic systolic (congestive) heart failure I50.22 GERRI (acute kidney injury) N17.9 Anemia D64.9
[2023-01-12] MEDS: carvedilol 3.125 mg Tablet PO (22:34)
[2023-01-13] VITALS (31 sets, daily range): BP systolic 84–122; BP diastolic 62–85; PULSE 67–88; RESP 11–33; TEMP 36.8–37.1; O2SAT 88–100
[2023-01-13] MEDS: morphine 4 mg/mL SDV 1 mL 2 MG IVP ×3 (00:41→23:11)
--- NOTE | 2023-01-13 00:52 | PC.NURSE ---
Pt hit call button complying of shortness of breath, SpO2 98%, 2L NC on, pt appeared to be having an anxiety attack, Pt expressed that she had severe chest pain, instructed to breath slowly, ect. Dr. Gonzales contacted. See orders for new orders, and MAR for medication administration.
[2023-01-13] MEDS: ALPRAZolam 0.5 mg Tablet PO ×3 (01:07→16:44)
[2023-01-13] MEDS: HYDROcodone-acetaminophen 5-325 mg Tablet 1 TAB PO ×4 (02:41→20:09)
[2023-01-13] MEDS: sodium chloride 0.9% 1,000 ML 125 ML IV ×3 (03:26→18:06)
[2023-01-13 04:25] LABS: Basophils # 0.1 10^3/uL (0.0-0.1); Basophils % 0.6 %; Eosinophils % 0.1 %; Hematocrit 30.4 % (37.0-47.0); Hemoglobin 9.4 g/dL (11.5-15.3); Lymphocytes # 1.2 10^3/uL (0.8-4.8); Lymphocytes % 13.1 %; Mean Corpuscular HGB Conc 30.9 g/dL (30.0-36.0); Mean Corpuscular Hemoglobin 33.7 pg (28.0-34.0); Mean Platelet Volume 12.1 fL (7.4-10.4); Monocytes # 0.5 10^3/uL (0.2-0.9); Neutrophils # 7.23 10^3/uL (1.8-7.7); Neutrophils % 79.6 %; Nucleated Red Blood Cells % 0 %; Platelet Count 153 10^3/cmm (130-400); Red Blood Count 2.79 10^6/uL (4.1-5.3); Red Cell Distribution Width 15.3 % (12.1-15.1); White Blood Count 9.1 10^3/uL (4.0-10.0)
[2023-01-13 04:42] LABS: Alanine Aminotransferase 71 U/L (0-33); Albumin Level 3.2 g/dL (3.5-5.2); Alkaline Phosphatase 71 U/L (35-105); Aspartate Amino Transferase 73 U/L (0-32); Blood Urea Nitrogen 15 mg/dL (6-20); Calcium 8.1 mg/dL (8.5-10.5); Carbon Dioxide 22 mmol/L (22-29); Chloride 104 mmol/L (98-107); Globulin 2.2 g/dL (1.3-4.6); Glucose 100 mg/dL (65-115); Osmolality Calculated 283 mOsm/kg (285-295); Sodium 136 mmol/L (136-145); Total Bilirubin 0.6 mg/dL (0.15-1.2); Total Protein 5.4 g/dL (6.6-8.7)
[2023-01-13 04:43] LABS: Anion Gap 14.6 (5-19); Potassium 4.6 mmol/L (3.5-5.1)
[2023-01-13] MEDS: magnesium oxide 400 mg tablet 200 MG PO (05:43)
[2023-01-13] MEDS: montelukast sodium 10 mg Tablet PO (05:44)
[2023-01-13] MEDS: aspirin 81 mg EC Tablet 162 MG PO (05:44)
[2023-01-13] MEDS: amiodarone 200 mg Tablet 400 MG PO ×2 (08:13→18:04)
[2023-01-13] MEDS: carvedilol 3.125 mg Tablet PO ×2 (08:13→18:04)
[2023-01-13] MEDS: pantoprazole DR 40 mg Tablet PO (08:14)
[2023-01-13] MEDS: sacubitril/valsartan 24-26 mg Tablet 1 EACH PO ×2 (08:15→18:04)
[2023-01-13] MEDS: polyethylene glycol 3350 Pkt 17 gm PO (08:19)
[2023-01-13] MEDS: ondansetron 2 mg/ML SDV 2 mL 4 MG IVP (08:41)
--- NOTE | 2023-01-13 10:17 | P.PN_ITS ---
Subjective Subjective: Patient is complaining of feeling tired. Has not had any significant chest pain. Telemetry shows mostly sinus rhythm. She is tolerating the lower dose of Entresto and carvedilol. Had a VQ scan today which was showing low probability for PE Medications: Medication Review Details: Current Medications Acetaminophen (Acetaminophen 325 Mg Tablet) 650 mg PO Q6H PRN PRN Reason: Mild/Mod Pain Or Temp >/= 101 Hydrocodone Bitart/Acetaminophen (Hydrocodone-Acetaminophen 5-325 Mg Tablet) 1 tab PO Q4H PRN PRN Reason: MODERATE PAIN Last Admin: 01/13/23 02:41 Dose: 1 tab Alprazolam (Alprazolam 0.5 Mg Tablet) 0.5 mg PO TID PRN PRN Reason: ANXIETY Last Admin: 01/13/23 08:41 Dose: 0.5 mg Amiodarone HCl (Amiodarone 200 Mg Tablet) 400 mg PO BID [facility] Last Admin: 01/13/23 08:13 Dose: 400 mg Aspirin (Aspirin 81 Mg Ec Tablet) 162 mg PO QAM [facility] Last Admin: 01/13/23 05:44 Dose: 162 mg Carvedilol (Carvedilol 6.25 Mg Tablet) 6.25 mg PO BID@0900,2100 [facility] Last Admin: 01/11/23 08:20 Dose: Not Given Carvedilol (Carvedilol 3.125 Mg Tablet) 3.125 mg PO BID [facility] Last Admin: 01/13/23 08:13 Dose: 3.125 mg Citalopram Hydrobromide (Citalopram 20 Mg Tablet) 40 mg PO QPM [facility] Last Admin: 01/12/23 17:26 Dose: 40 mg Enoxaparin Sodium (Enoxaparin 40 Mg/0.4 Ml Syringe) 40 mg SUBCUT Q24H [facility] Last Admin: 01/12/23 17:31 Dose: 40 mg Sodium Chloride (Sodium Chloride 0.9%) 1,000 mls @ 125 mls/hr IV .Q8H [facility] Last Admin: 01/13/23 03:26 Dose: 125 mls/hr Norepinephrine Bitartrate 4 mg (/ Dextrose) 254 mls @ 0 mls/hr IV .Q0M [facility]; Protocol Last Titration: 01/12/23 19:00 Dose: Infused Dobutamine HCl/Dextrose (Dobutamine Drip) 500 mg in 250 mls @ 0 mls/hr IV .Q0M [facility]; Protocol Last Titration: 01/12/23 19:00 Dose: Infused Magnesium Oxide (Magnesium Oxide 400 Mg Tablet) 200 mg PO [facility] Last Admin: 01/13/23 05:43 Dose: 200 mg Metoclopramide HCl (Metoclopramide 5 Mg/Ml Sdv 2 Ml) 5 mg IVP Q6H PRN PRN Reason: NAUSEA AND VOMITING Last Admin: 01/12/23 20:15 Dose: 5 mg Montelukast Sodium (Montelukast Sodium 10 Mg Tablet) 10 mg PO [facility] Last Admin: 01/13/23 05:44 Dose: 10 mg Morphine Sulfate (Morphine 4 Mg/Ml Sdv 1 Ml) 2 mg IVP Q4H PRN PRN Reason: SEVERE PAIN Last Admin: 01/13/23 00:41 Dose: 2 mg Naloxone HCl (Naloxone 0.4 Mg/Ml Sdv) 0.1 mg IVP Q2M PRN PRN Reason: OPIATERV Nitroglycerin (Nitroglycerin 0.4 Mg Sublingual Tablet) 0.4 mg SUBLINGUAL Q5M PRN PRN Reason: Chest Pain Last Admin: 01/12/23 15:11 Dose: 0.4 mg Ondansetron HCl (Ondansetron 2 Mg/Ml Sdv 2 Ml) 4 mg IVP Q8H PRN PRN Reason: vomiting, or N/V if npo Last Admin: 01/13/23 08:41 Dose: 4 mg Pantoprazole Sodium (Pantoprazole Dr 40 Mg Tablet) 40 mg PO DAILY [facility] Last Admin: 01/13/23 08:14 Dose: 40 mg Polyethylene Glycol (Polyethylene Glycol 3350 Pkt 17 Gm) 17 gm PO DAILY [facility] Last Admin: 01/13/23 08:19 Dose: 17 gm Potassium Chloride (Potassium Chloride Er 20 Meq Tablet) 20 meq PO [facility] Last Admin: 01/13/23 05:41 Dose: Not Given Sacubitril/Valsartan (Sacubitril/Valsartan 24-26 Mg Tablet) 4 each PO BID@0900,2100 [facility] Last Admin: 01/11/23 08:21 Dose: Not Given Sacubitril/Valsartan (Sacubitril/Valsartan 24-26 Mg Tablet) 1 each PO BID [facility] Last Admin: 01/13/23 08:15 Dose: 1 each Zolpidem Tartrate (Zolpidem 5 Mg Tablet) 10 mg PO BEDTIME [facility] Last Admin: 01/12/23 20:16 Dose: 10 mg Vitals/I&O/Wt Last Vital Signs Temp 97.9 F 01/12/23 19:45 Pulse 79 01/13/23 08:00 Resp 16 01/13/23 08:00 BP 113/74 01/13/23 08:00 Pulse Ox 100 01/13/23 08:00 O2 Del Method 01/13/23 04:00 O2 Flow Rate 2 01/13/23 04:00 01/12/23 01/13/23 01/13/23 22:59 06:59 14:59 Intake Total 1928.017 / 3331.072 1250 / 4581.072 Output Total 30 / 230 200 / 430 Balance 1898.017 / 3101.072 1050 / 4151.072 Physical Exam Narrative: GENERAL: The patient is alert and oriented times three. Not in any acute distress. HEENT: No significant pallor, icterus or lymphadenopathy.Oral cavity: There are no mucous membrane lesions. NECK: Trachea appears to be central. No masses noted. No JVD or thyromegaly appreciated. RESPIRATORY: Chest is symmetrical. No intercostals muscle retraction or any accessory muscle activation. There is no chest wall tenderness. Breath sounds are heard bilaterally. No rales or rhonchi heard. No evidence of any consolidation. BREASTS: Deferred. HEART: The heart sounds are normal. No S3 or S4. Short systolic murmur in the lower sternal border. No pericardial rub ABDOMEN: No vessel pulsations or distention. No tenderness. No organomegaly appreciated. Bowel sounds are normally heard. : Deferred. RECTAL: Deferred. LYMPHATIC: No lymphadenopathy noted in the neck. EXTREMITIES: No edema or cyanosis. No clubbing. MUSCULOSKELETAL: No acute joint deformities or swelling SKIN: There are no significant rashes or ecchymosis NEUROPSYCHIATRIC: The patient is alert and oriented x3. Appears to be in a good mood. No tremors or rigidity noted. Urinary Catheter Management: Leger: Cath Placed During This Visit: yes Reason for Continuing Indwelling Catheter: Accurate Measurement of Urinary Output in Critically Ill Patients Urinary Catheter Date of Insertion: 01/10/23 Urinary Catheter Time of Insertion: 15:48 Data 01/13/23 03:06 01/13/23 03:06 Other Labs: Laboratory Last Values WBC 9.1 10^3/uL (4.0-10.0) 01/13/23 03:06 RBC 2.79 10^6/uL (4.1-5.3) L 01/13/23 03:06 Hgb 9.4 g/dL (11.5-15.3) L 01/13/23 03:06 Hct 30.4 % (37.0-47.0) L 01/13/23 03:06 MCV 109.0 fl (81-99) H 01/13/23 03:06 MCH 33.7 pg (28.0-34.0) 01/13/23 03:06 MCHC 30.9 g/dL (30.0-36.0) 01/13/23 03:06 RDW 15.3 % (12.1-15.1) H 01/13/23 03:06 Plt Count 153 10^3/cmm (130-400) 01/13/23 03:06 MPV 12.1 fL (7.4-10.4) H 01/13/23 03:06 Neut % (Auto) 79.6 % 01/13/23 03:06 Lymph % (Auto) 13.1 % 01/13/23 03:06 [place] % (Auto) 6.0 % 01/13/23 03:06 Eos % (Auto) 0.1 % 01/13/23 03:06 Baso % (Auto) 0.6 % 01/13/23 03:06 Neut # (Auto) 7.23 10^3/uL (1.8-7.7) 01/13/23 03:06 Lymph # (Auto) 1.2 10^3/uL (0.8-4.8) 01/13/23 03:06 [place] # (Auto) 0.5 10^3/uL (0.2-0.9) 01/13/23 03:06 Eos # (Auto) 0.0 10^3/uL (0.0-0.8) 01/13/23 03:06 Baso # (Auto) 0.1 10^3/uL (0.0-0.1) 01/13/23 03:06 Nucleated RBC % (auto) 0 % 01/13/23 03:06 Nucleated RBCs # 0.0 /100WBC 01/13/23 03:06 PT 16.10 SECONDS (12.1-14.9) H 01/10/23 12:00 INR 1.25 (0.8-1.2) H 01/10/23 12:00 Specimen Type Arterial 01/11/23 11:50 Specimen Type Arterial 01/11/23 11:50 Sample Site Not specified 01/11/23 11:50 Sample Site Not specified 01/11/23 11:50 ABG pH 7.51 (7.35-7.45) H 01/10/23 12:04 ABG pCO2 24.3 mmHg (35-45) L 01/10/23 12:04 ABG pO2 251.0 mmHg (80.0-100.0) H 01/10/23 12:04 ABG HCO3 19.5 mmol/L (22-26) L 01/10/23 12:04 ABG O2 Saturation 99.4 01/10/23 12:04 ABG Base Excess -2.2 mmol/L (-2.0-2.0) L 01/10/23 12:04 Michi Test N/a 01/11/23 11:50 Michi Test N/a 01/11/23 11:50 A-a O2 Gradient 5.7 mmHg (5-10) 01/11/23 11:50 A-a O2 Gradient 9.3 mmHg (5-10) 01/11/23 11:50 Hematocrit 33.0 % (37-47) L 01/11/23 11:50 Hematocrit 33.2 % (37-47) L 01/11/23 11:50 Hgb O2 Saturation 22.0 % (95-100) L 01/11/23 11:50 Hgb O2 Saturation 89.1 % (95-100) L 01/11/23 11:50 Carboxyhemoglobin 1.2 %THgb (0.4-20.1) 01/11/23 11:50 Carboxyhemoglobin 1.3 %THgb (0.4-20.1) 01/11/23 11:50 Methemoglobin 0.2 % (0.4-1.5) L 01/11/23 11:50 Methemoglobin 0.9 % (0.4-1.5) 01/11/23 11:50 Total Hemoglobin 10.8 g/dL (12-16) L 01/11/23 11:50 Total Hemoglobin 10.8 g/dL (12-16) L 01/11/23 11:50 Sodium 138.0 mmol/L (131-143) 01/10/23 12:04 Potassium 3.8 mmol/L (3.5-5.0) 01/10/23 12:04 Glucose 179.0 mg/dL (70-115) H 01/10/23 12:04 Ionized Calcium 1.1 mmol/L (1.1-1.4) 01/10/23 12:04 O2 Delivery Device Room air 01/11/23 11:50 O2 Delivery Device Room air 01/11/23 11:50 O2 Liters/Min 15.0 % 01/10/23 12:04 FiO2 21.0 % 01/11/23 11:50 Electronic Warfare Linguist ID [id number] 01/11/23 11:50 Electronic Warfare Linguist ID Pa 01/11/23 11:50 Sodium 136 mmol/L (136-145) 01/13/23 03:06 Potassium 4.6 mmol/L (3.5-5.1) 01/13/23 03:06 Chloride 104 mmol/L (98-107) 01/13/23 03:06 Carbon Dioxide 22 mmol/L (22-29) 01/13/23 03:06 Anion Gap 14.6 (5-19) 01/13/23 03:06 BUN 15 mg/dL (6-20) 01/13/23 03:06 Creatinine 1.1 mg/dL (0.5-0.9) H 01/13/23 03:06 GFR Calculation 52.0 mL/min (90-130) L 01/13/23 03:06 Glucose 100 mg/dL (65-115) 01/13/23 03:06 Calculated Osmolality 283 mOsm/kg (285-295) L 01/13/23 03:06 Lactate 2.3 mmol/L (0.5-2.2) H 01/11/23 14:00 Calcium 8.1 mg/dL (8.5-10.5) L 01/13/23 03:06 Magnesium 2.1 mg/dL (1.7-2.3) 01/11/23 03:19 Total Bilirubin 0.6 mg/dL (0.15-1.2) 01/13/23 03:06 AST 73 U/L (0-32) H 01/13/23 03:06 ALT 71 U/L (0-33) H 01/13/23 03:06 Alkaline Phosphatase 71 U/L (35-105) 01/13/23 03:06 Troponin T Baseline 19 ng/L (0-10) H 01/10/23 12:00 Troponin T 120 Minute 26.81 ng/L (0-10) H 01/10/23 14:17 Delta Troponin T 7.81 ABS# (0-10) 01/10/23 14:17 Troponin T Hi Sens 6Hr 30.12 ng/L (0-10) H 01/10/23 18:16 Troponin T Hi Sens 6Hr Delta 11.12 ng/L (0-12) 01/10/23 18:16 NT-Pro-B Natriuret Pep 90065 pg/mL (0-125) H 01/10/23 12:00 Total Protein 5.4 g/dL (6.6-8.7) L 01/13/23 03:06 Albumin 3.2 g/dL (3.5-5.2) L 01/13/23 03:06 Globulin 2.2 g/dL (1.3-4.6) 01/13/23 03:06 Lipase 22 U/L (13-60) 01/10/23 12:00 Urine Color Yellow (Yellow) 01/11/23 20:03 Urine Appearance Clear (CLEAR) 01/11/23 20:03 Urine pH 5 (5-7) 01/11/23 20:03 Ur Specific [place] 1.015 (1.005-1.030) 01/11/23 20:03 Urine Protein 1+ (Negative) H 01/11/23 20:03 Urine Glucose (UA) Norm (Normal) 01/11/23 20:03 Urine Ketones Negative (Negative) 01/11/23 20:03 Urine Blood 2+ (Negative) H 01/11/23 20:03 Urine Nitrate Negative (Negative) 01/11/23 20:03 Urine Bilirubin 1+ (Negative) H 01/11/23 20:03 Urine Urobilinogen Norm mg/dL (Negative) 01/11/23 20:03 Ur Leukocyte Esterase Trace (Negative) H 01/11/23 20:03 Urine RBC 0-4 /hpf (0-2) H 01/11/23 20:03 Urine WBC 25-40 /hpf (0-5) H 01/11/23 20:03 Ur Squamous Epith Cells 0-4 /hpf (0-5) H 01/11/23 20:03 Amorphous Sediment 1+ /hpf 01/11/23 20:03 Urine Bacteria Trace /hpf (NONE) 01/11/23 20:03 A&P Assessment and plan (1) Chest pain: Patient had emergency cardiac catheterization on 01/11/2023. No significant obstructive coronary disease was noted. She had moderately severe pulmonary hypertension with a mean PA pressure of 43 mmHg. Her LVEDP was 33 mmHg. The cardiac index was 1.1. She was started on a Dobutrex drip yesterday. (2) Encounter for testing following appropriate discharge of implantable cardioverter-defibrillator (ICD): The IV amiodarone may be switched to p.o. once the current infusion is finished. May be started on amiodarone 400 mg p.o. twice daily. Tolerating the medications overall well (3) Nonischemic cardiomyopathy: Patient was restarted on a lower dose of carvedilol and Entresto. She seems to be tolerating the medication so far well. (4) Chronic systolic (congestive) heart failure: Lasix may be changed to p.o. May start her on Jardiance as an outpatient (5) GERRI (acute kidney injury): Current related to the arrhythmia/low output state. The kidney function has improved (6) Anemia: Could be multifactorial. Seems to be stable. Plan Encouraged for ambulation. If she continues remain stable, may be discharged home tomorrow. There was a slight drop in hemoglobin. This may be rechecked tomorrow. Attestations Medical Necessity Statement*: Possible discharge home tomorrow Coding Level of Care Code 19066 Diagnoses Chest pain R07.9 Encounter for testing following appropriate discharge of implantable cardioverter-defibrillator (ICD) Z45.02 Nonischemic cardiomyopathy I42.8 Chronic systolic (congestive) heart failure I50.22 GERRI (acute kidney injury) N17.9 Anemia D64.9
--- NOTE | 2023-01-13 12:51 | PC.SOCIAL ---
Pg 2 IMM Explained to pt Pg 2 IMM. No questions voiced. Provided pt a copy. Initialed, dated, & timed a copy & placed in chart.
[2023-01-13] MEDS: metoclopramide 5 mg/mL SDV 2 mL IVP (14:57)
--- NOTE | 2023-01-13 16:24 | PM.PN ---
Subjective Subjective: Patient reports feeling anxious today. States that she usually takes something for anxiety, and has taken Xanax in the past which helped. She denies any chest pain or pressure at this time, says that this has improved over the last couple of days. Says that she has had some nausea today and has not felt like eating much. Vitals/I&O/Wt Last Vital Signs Temp 97.9 F 01/12/23 19:45 Pulse 70 01/13/23 14:00 Resp 21 H 01/13/23 14:00 BP 98/62 01/13/23 14:00 Pulse Ox 100 01/13/23 14:00 O2 Del Method 01/13/23 04:00 O2 Flow Rate 2 01/13/23 04:00 01/13/23 01/13/23 01/13/23 06:59 14:59 22:59 Intake Total 1250 / 4581.072 1240 / 1240 Output Total 200 / 430 Balance 1050 / 4151.072 1240 / 1240 Physical Exam Narrative: General: Cooperative patient in no apparent distress. Well developed. HEENT: Normocephalic, Atraumatic. External ears normal. Nasal passages patent without drainage. MMM. Heart: RRR. Resp: LCTA. No respiratory distress, no use of accessory muscles. Abd: Soft, non-tender. Non-distended. Extremities: No edema. Skin: No rash or lesions on exposed areas. Urinary Catheter Management: Leger: Cath Placed During This Visit: yes Reason for Continuing Indwelling Catheter: Accurate Measurement of Urinary Output in Critically Ill Patients Urinary Catheter Date of Insertion: 01/10/23 Urinary Catheter Time of Insertion: 15:48 Data 01/13/23 03:06 01/13/23 03:06 Micro: Microbiology 01/11/23 20:03 Urine Culture - Preliminary Urine,Clean Catch A&P Assessment and plan (1) Idiopathic ventricular fibrillation: (2) Defibrillator discharge: (3) Nonischemic cardiomyopathy: (4) CHF (congestive heart failure): (5) Cardiogenic shock: (6) Chronic systolic (congestive) heart failure: Plan 53-year-old lady with known ischemic cardiomyopathy, admitted for chest pain and multiple firings from her ICD. Continue close inpatient monitoring. Cardiology is consulted and they are managing cardiac medications. Patient was taken for cardiac cath during this hospitalization and no problematic lesions were identified. Echocardiogram was performed which showed her ejection fraction has not dropped to 15 to 20%. Left ventricular wall was hypokinetic. She was previously on pressors and these have been titrated off. She is currently on amiodarone and cardiology is managing. They have recommended starting Entresto once patient is stable, and restarting her carvedilol at a lower dose. In addition, it may be reasonable to start her on Jardiance after discharge. On this admission patient was noted to have an GERRI, with creatinine levels between 1.4 and 1.5. They are currently stable at 1.1. Plan to evaluate for pulmonary embolism using a VQ scan given her kidney status. Will avoid IV contrast. Added Xanax to help with anxiety. Continue other home medications for chronic illnesses. Code Status: Full IVF: NS @ 125ml/hr DVT PPx: Lovenox GI PPx: Protonix ABx: None Diet: Cardiac Discharge plan: TBD Attestations Medical Necessity Statement*: Continue inpatient hospitalization for cardiac monitoring, titration of medications, IV medications. Diagnoses Idiopathic ventricular fibrillation I49.01 Defibrillator discharge Z45.02 Nonischemic cardiomyopathy I42.8 CHF (congestive heart failure) I50.9 Cardiogenic shock R57.0 Chronic systolic (congestive) heart failure I50.22
--- NOTE | 2023-01-13 16:57 | NM_ITS ---
WS: [id number] NUCLEAR MEDICINE VENTILATION/PERFUSION LUNG SCAN HISTORY: Evaluate for PE COMPARISON: Chest radiograph 01/12/2023 TECHNIQUE: Ventilation: 32.5 mCi of Technetium 99 DTPA aerosol inhaled. Perfusion: 5.5 mCi of technetium 99m MAA IV. Poor ventilation. Disposition of the radionuclide centrally. Consistent with airways disease seen on the prior study. Perfusion examination is essentially normal. Heart is large. No wedge-shaped pulmona ry defects. NM/NM pul vent and perfus* [id number] IMPRESSION: Low probability pulmonary embolism.
[2023-01-13] MEDS: citalopram 20 mg Tablet 40 MG PO (18:05)
[2023-01-13] MEDS: enoxaparin 40 mg/0.4 mL Syringe SUBCUT (18:09)
[2023-01-13] MEDS: zolpidem 5 mg Tablet 10 MG PO (20:09)
[2023-01-14] VITALS (25 sets, daily range): BP systolic 87–117; BP diastolic 49–79; PULSE 64–81; RESP 13–25; TEMP 36.6–36.9; O2SAT 72–100
[2023-01-14] MEDS: sodium chloride 0.9% 1,000 ML 125 ML IV ×2 (02:29→19:26)
[2023-01-14 04:00] LABS: Basophils % 0.5 %; Eosinophils # 0.1 10^3/uL (0.0-0.8); Eosinophils % 0.7 %; Hematocrit 29.4 % (37.0-47.0); Lymphocytes # 1.8 10^3/uL (0.8-4.8); Lymphocytes % 23.8 %; Mean Corpuscular HGB Conc 30.6 g/dL (30.0-36.0); Mean Corpuscular Hemoglobin 34.1 pg (28.0-34.0); Mean Corpuscular Volume 111.4 fl (81-99); Mean Platelet Volume 11.8 fL (7.4-10.4); Monocytes # 0.5 10^3/uL (0.2-0.9); Monocytes % 7.3 %; Neutrophils # 4.97 10^3/uL (1.8-7.7); Nucleated Red Blood Cells % 0 %; Platelet Count 135 10^3/cmm (130-400); Red Blood Count 2.64 10^6/uL (4.1-5.3); Red Cell Distribution Width 15.8 % (12.1-15.1); White Blood Count 7.4 10^3/uL (4.0-10.0)
[2023-01-14 04:27] LABS: Alanine Aminotransferase 57 U/L (0-33); Albumin Level 2.8 g/dL (3.5-5.2); Alkaline Phosphatase 65 U/L (35-105); Anion Gap 13.2 (5-19); Aspartate Amino Transferase 43 U/L (0-32); Blood Urea Nitrogen 14 mg/dL (6-20); Calcium 7.9 mg/dL (8.5-10.5); Carbon Dioxide 20 mmol/L (22-29); Chloride 107 mmol/L (98-107); Globulin 2.2 g/dL (1.3-4.6); Glucose 86 mg/dL (65-115); Osmolality Calculated 282 mOsm/kg (285-295); Potassium 4.2 mmol/L (3.5-5.1); Sodium 136 mmol/L (136-145); Total Bilirubin 0.5 mg/dL (0.15-1.2)
[2023-01-14] MEDS: potassium chloride ER 20 mEq Tablet PO (06:12)
[2023-01-14] MEDS: magnesium oxide 400 mg tablet 200 MG PO (06:13)
[2023-01-14] MEDS: montelukast sodium 10 mg Tablet PO (06:13)
[2023-01-14] MEDS: ALPRAZolam 0.5 mg Tablet PO ×3 (06:13→20:25)
[2023-01-14] MEDS: aspirin 81 mg EC Tablet 162 MG PO (06:13)
--- NOTE | 2023-01-14 08:24 | PM.PN ---
Subjective Subjective: The patient is feeling okay. No arrhythmias on the monitor. The vitals are stable. Medications: Medication Review Details: Current Medications Acetaminophen (Acetaminophen 325 Mg Tablet) 650 mg PO Q6H PRN PRN Reason: Mild/Mod Pain Or Temp >/= 101 Hydrocodone Bitart/Acetaminophen (Hydrocodone-Acetaminophen 5-325 Mg Tablet) 1 tab PO Q4H PRN PRN Reason: MODERATE PAIN Last Admin: 01/13/23 20:09 Dose: 1 tab Alprazolam (Alprazolam 0.5 Mg Tablet) 0.5 mg PO TID PRN PRN Reason: ANXIETY Last Admin: 01/14/23 06:13 Dose: 0.5 mg Amiodarone HCl (Amiodarone 200 Mg Tablet) 400 mg PO BID [facility] Last Admin: 01/13/23 18:04 Dose: 400 mg Aspirin (Aspirin 81 Mg Ec Tablet) 162 mg PO QAM [facility] Last Admin: 01/14/23 06:13 Dose: 162 mg Carvedilol (Carvedilol 6.25 Mg Tablet) 6.25 mg PO BID@0900,2100 [facility] Last Admin: 01/11/23 08:20 Dose: Not Given Carvedilol (Carvedilol 3.125 Mg Tablet) 3.125 mg PO BID [facility] Last Admin: 01/13/23 18:04 Dose: 3.125 mg Citalopram Hydrobromide (Citalopram 20 Mg Tablet) 40 mg PO QPM [facility] Last Admin: 01/13/23 18:05 Dose: 40 mg Enoxaparin Sodium (Enoxaparin 40 Mg/0.4 Ml Syringe) 40 mg SUBCUT Q24H [facility] Last Admin: 01/13/23 18:09 Dose: 40 mg Sodium Chloride (Sodium Chloride 0.9%) 1,000 mls @ 125 mls/hr IV .Q8H [facility] Last Admin: 01/14/23 02:29 Dose: 125 mls/hr Norepinephrine Bitartrate 4 mg (/ Dextrose) 254 mls @ 0 mls/hr IV .Q0M [facility]; Protocol Last Titration: 01/12/23 19:00 Dose: Infused Dobutamine HCl/Dextrose (Dobutamine Drip) 500 mg in 250 mls @ 0 mls/hr IV .Q0M [facility]; Protocol Last Titration: 01/12/23 19:00 Dose: Infused Magnesium Oxide ([facility]esium Oxide 400 Mg Tablet) [facility] Last Admin: 01/14/23 06:13 Dose: 200 mg Metoclopramide HCl (Metoclopramide 5 Mg/Ml Sdv 2 Ml) 5 mg IVP Q6H PRN PRN Reason: NAUSEA AND VOMITING Last Admin: 01/13/23 14:57 Dose: 5 mg Montelukast Sodium (Montelukast Sodium 10 Mg Tablet) [facility] Last Admin: 01/14/23 06:13 Dose: 10 mg Morphine Sulfate (Morphine 4 Mg/Ml Sdv 1 Ml) 2 mg IVP Q4H PRN PRN Reason: SEVERE PAIN Last Admin: 01/13/23 23:11 Dose: 2 mg Naloxone HCl (Naloxone 0.4 Mg/Ml Sdv) 0.1 mg IVP Q2M PRN PRN Reason: OPIATERV Nitroglycerin (Nitroglycerin 0.4 Mg Sublingual Tablet) 0.4 mg SUBLINGUAL Q5M PRN PRN Reason: Chest Pain Last Admin: 01/12/23 15:11 Dose: 0.4 mg Ondansetron HCl (Ondansetron 2 Mg/Ml Sdv 2 Ml) 4 mg IVP Q8H PRN PRN Reason: vomiting, or N/V if npo Last Admin: 01/13/23 08:41 Dose: 4 mg Pantoprazole Sodium (Pantoprazole Dr 40 Mg Tablet) 40 mg PO DAILY [facility] Last Admin: 01/13/23 08:14 Dose: 40 mg Polyethylene Glycol (Polyethylene Glycol 3350 Pkt 17 Gm) 17 gm PO DAILY [facility] Last Admin: 01/13/23 08:19 Dose: 17 gm Potassium Chloride (Potassium Chloride Er 20 Meq Tablet) [facility] Last Admin: 01/14/23 06:12 Dose: 20 meq Sacubitril/Valsartan (Sacubitril/Valsartan 24-26 Mg Tablet) 4 each PO BID@0900,2100 [facility] Last Admin: 01/11/23 08:21 Dose: Not Given Sacubitril/Valsartan (Sacubitril/Valsartan 24-26 Mg Tablet) 1 each PO BID [facility] Last Admin: 01/13/23 18:04 Dose: 1 each Zolpidem Tartrate (Zolpidem 5 Mg Tablet) 10 mg PO BEDTIME [facility] Last Admin: 01/13/23 20:09 Dose: 10 mg Vitals/I&O/Wt Last Vital Signs Temp 98.3 F 01/14/23 04:00 Pulse 67 01/14/23 06:00 Resp 18 01/14/23 06:00 BP 100/64 01/14/23 06:00 Pulse Ox 100 01/14/23 03:00 O2 Del Method 01/13/23 04:00 O2 Flow Rate 2 01/13/23 04:00 01/13/23 01/14/23 01/14/23 22:59 06:59 14:59 Intake Total 1547.5 / 2787.5 1110 / 3897.5 Output Total 105 / 105 155 / 260 Balance 1442.5 / 2682.5 955 / 3637.5 Physical Exam Narrative: GENERAL: The patient is alert and oriented times three. Not in any acute distress. HEENT: No significant pallor, icterus or lymphadenopathy.Oral cavity: There are no mucous membrane lesions. NECK: Trachea appears to be central. No masses noted. No JVD or thyromegaly appreciated. RESPIRATORY: Chest is symmetrical. No intercostals muscle retraction or any accessory muscle activation. There is no chest wall tenderness. Breath sounds are heard bilaterally. No rales or rhonchi heard. No evidence of any consolidation. BREASTS: Deferred. HEART: The heart sounds are normal. No S3 or S4. Short systolic murmur in the lower sternal border. No pericardial rub ABDOMEN: No vessel pulsations or distention. No tenderness. No organomegaly appreciated. Bowel sounds are normally heard. : Deferred. RECTAL: Deferred. LYMPHATIC: No lymphadenopathy noted in the neck. EXTREMITIES: No edema or cyanosis. No clubbing. MUSCULOSKELETAL: No acute joint deformities or swelling SKIN: There are no significant rashes or ecchymosis NEUROPSYCHIATRIC: The patient is alert and oriented x3. Appears to be in a good mood. No tremors or rigidity noted. Urinary Catheter Management: Leger: Cath Placed During This Visit: yes Reason for Continuing Indwelling Catheter: Accurate Measurement of Urinary Output in Critically Ill Patients Urinary Catheter Date of Insertion: 01/10/23 Urinary Catheter Time of Insertion: 15:48 Data 01/14/23 03:27 01/14/23 03:27 Other Labs: Laboratory Last Values WBC 7.4 10^3/uL (4.0-10.0) 01/14/23 03:27 RBC 2.64 10^6/uL (4.1-5.3) L 01/14/23 03:27 Hgb 9.0 g/dL (11.5-15.3) L 01/14/23 03:27 Hct 29.4 % (37.0-47.0) L 01/14/23 03:27 MCV 111.4 fl (81-99) H 01/14/23 03:27 MCH 34.1 pg (28.0-34.0) H 01/14/23 03:27 MCHC 30.6 g/dL (30.0-36.0) 01/14/23 03:27 RDW 15.8 % (12.1-15.1) H 01/14/23 03:27 Plt Count 135 10^3/cmm (130-400) 01/14/23 03:27 MPV 11.8 fL (7.4-10.4) H 01/14/23 03:27 Neut % (Auto) 67.0 % 01/14/23 03:27 Lymph % (Auto) 23.8 % 01/14/23 03:27 [place] % (Auto) 7.3 % 01/14/23 03:27 Eos % (Auto) 0.7 % 01/14/23 03:27 Baso % (Auto) 0.5 % 01/14/23 03:27 Neut # (Auto) 4.97 10^3/uL (1.8-7.7) 01/14/23 03:27 Lymph # (Auto) 1.8 10^3/uL (0.8-4.8) 01/14/23 03:27 [place] # (Auto) 0.5 10^3/uL (0.2-0.9) 01/14/23 03:27 Eos # (Auto) 0.1 10^3/uL (0.0-0.8) 01/14/23 03:27 Baso # (Auto) 0.0 10^3/uL (0.0-0.1) 01/14/23 03:27 Nucleated RBC % (auto) 0 % 01/14/23 03:27 Nucleated RBCs # 0.0 /100WBC 01/14/23 03:27 PT 16.10 SECONDS (12.1-14.9) H 01/10/23 12:00 INR 1.25 (0.8-1.2) H 01/10/23 12:00 Specimen Type Arterial 01/11/23 11:50 Specimen Type Arterial 01/11/23 11:50 Sample Site Not specified 01/11/23 11:50 Sample Site Not specified 01/11/23 11:50 ABG pH 7.51 (7.35-7.45) H 01/10/23 12:04 ABG pCO2 24.3 mmHg (35-45) L 01/10/23 12:04 ABG pO2 251.0 mmHg (80.0-100.0) H 01/10/23 12:04 ABG HCO3 19.5 mmol/L (22-26) L 01/10/23 12:04 ABG O2 Saturation 99.4 01/10/23 12:04 ABG Base Excess -2.2 mmol/L (-2.0-2.0) L 01/10/23 12:04 Michi Test N/a 01/11/23 11:50 Michi Test N/a 01/11/23 11:50 A-a O2 Gradient 5.7 mmHg (5-10) 01/11/23 11:50 A-a O2 Gradient 9.3 mmHg (5-10) 01/11/23 11:50 Hematocrit 33.0 % (37-47) L 01/11/23 11:50 Hematocrit 33.2 % (37-47) L 01/11/23 11:50 Hgb O2 Saturation 22.0 % (95-100) L 01/11/23 11:50 Hgb O2 Saturation 89.1 % (95-100) L 01/11/23 11:50 Carboxyhemoglobin 1.2 %THgb (0.4-20.1) 01/11/23 11:50 Carboxyhemoglobin 1.3 %THgb (0.4-20.1) 01/11/23 11:50 Methemoglobin 0.2 % (0.4-1.5) L 01/11/23 11:50 Methemoglobin 0.9 % (0.4-1.5) 01/11/23 11:50 Total Hemoglobin 10.8 g/dL (12-16) L 01/11/23 11:50 Total Hemoglobin 10.8 g/dL (12-16) L 01/11/23 11:50 Sodium 138.0 mmol/L (131-143) 01/10/23 12:04 Potassium 3.8 mmol/L (3.5-5.0) 01/10/23 12:04 Glucose 179.0 mg/dL (70-115) H 01/10/23 12:04 Ionized Calcium 1.1 mmol/L (1.1-1.4) 01/10/23 12:04 O2 Delivery Device Room air 01/11/23 11:50 O2 Delivery Device Room air 01/11/23 11:50 O2 Liters/Min 15.0 % 01/10/23 12:04 FiO2 21.0 % 01/11/23 11:50 Medication Technician ID Ao 01/11/23 11:50 Medication Technician ID Pa 01/11/23 11:50 Sodium 136 mmol/L (136-145) 01/14/23 03:27 Potassium 4.2 mmol/L (3.5-5.1) 01/14/23 03:27 Chloride 107 mmol/L (98-107) 01/14/23 03:27 Carbon Dioxide 20 mmol/L (22-29) L 01/14/23 03:27 Anion Gap 13.2 (5-19) 01/14/23 03:27 BUN 14 mg/dL (6-20) 01/14/23 03:27 Creatinine 1.0 mg/dL (0.5-0.9) H 01/14/23 03:27 GFR Calculation 58.0 mL/min (90-130) L 01/14/23 03:27 Glucose 86 mg/dL (65-115) 01/14/23 03:27 Calculated Osmolality 282 mOsm/kg (285-295) L 01/14/23 03:27 Lactate 2.3 mmol/L (0.5-2.2) H 01/11/23 14:00 Calcium 7.9 mg/dL (8.5-10.5) L 01/14/23 03:27 Magnesium 2.1 mg/dL (1.7-2.3) 01/11/23 03:19 Total Bilirubin 0.5 mg/dL (0.15-1.2) 01/14/23 03:27 AST 43 U/L (0-32) H 01/14/23 03:27 ALT 57 U/L (0-33) H 01/14/23 03:27 Alkaline Phosphatase 65 U/L (35-105) 01/14/23 03:27 Troponin T Baseline 19 ng/L (0-10) H 01/10/23 12:00 Troponin T 120 Minute 26.81 ng/L (0-10) H 01/10/23 14:17 Delta Troponin T 7.81 ABS# (0-10) 01/10/23 14:17 Troponin T Hi Sens 6Hr 30.12 ng/L (0-10) H 01/10/23 18:16 Troponin T Hi Sens 6Hr Delta 11.12 ng/L (0-12) 01/10/23 18:16 NT-Pro-B Natriuret Pep 96403 pg/mL (0-125) H 01/10/23 12:00 Total Protein 5.0 g/dL (6.6-8.7) L 01/14/23 03:27 Albumin 2.8 g/dL (3.5-5.2) L 01/14/23 03:27 Globulin 2.2 g/dL (1.3-4.6) 01/14/23 03:27 Lipase 22 U/L (13-60) 01/10/23 12:00 Urine Color Yellow (Yellow) 01/11/23 20:03 Urine Appearance Clear (CLEAR) 01/11/23 20:03 Urine pH 5 (5-7) 01/11/23 20:03 Ur Specific [place] 1.015 (1.005-1.030) 01/11/23 20:03 Urine Protein 1+ (Negative) H 01/11/23 20:03 Urine Glucose (UA) Norm (Normal) 01/11/23 20:03 Urine Ketones Negative (Negative) 01/11/23 20:03 Urine Blood 2+ (Negative) H 01/11/23 20:03 Urine Nitrate Negative (Negative) 01/11/23 20:03 Urine Bilirubin 1+ (Negative) H 01/11/23 20:03 Urine Urobilinogen Norm mg/dL (Negative) 01/11/23 20:03 Ur Leukocyte Esterase Trace (Negative) H 01/11/23 20:03 Urine RBC 0-4 /hpf (0-2) H 01/11/23 20:03 Urine WBC 25-40 /hpf (0-5) H 01/11/23 20:03 Ur Squamous Epith Cells 0-4 /hpf (0-5) H 01/11/23 20:03 Amorphous Sediment 1+ /hpf 01/11/23 20:03 Urine Bacteria Trace /hpf (NONE) 01/11/23 20:03 Micro: Microbiology 01/11/23 20:03 Urine Culture - Final Urine,Clean Catch A&P Assessment and plan (1) Chest pain: Patient had emergency cardiac catheterization on 01/11/2023. No significant obstructive coronary disease was noted. She had moderately severe pulmonary hypertension with a mean PA pressure of 43 mmHg. Her LVEDP was 33 mmHg. The cardiac index was 1.1. Patient has no recurrence of chest pain. May continue on the current treatment (2) Encounter for testing following appropriate discharge of implantable cardioverter-defibrillator (ICD): Patient seems to be tolerating amiodarone so far well. She need to be on amiodarone 400 mg p.o. twice daily for a total of 10 days followed by 400 mg daily. (3) Nonischemic cardiomyopathy: Patient was restarted on a lower dose of carvedilol and Entresto. She seems to be tolerating the medication so far well. Continue on the current medications (4) Chronic systolic (congestive) heart failure: Lasix may be changed to p.o. May start her on Jardiance as an outpatient (5) GERRI (acute kidney injury): Current related to the arrhythmia/low output state. The kidney function has improved. May continue on the current management (6) Anemia: Could be multifactorial. Seems to be stable. Plan He is a patient continues remain stable, may be discharged home. Amiodarone does need to be tapered down as mentioned above Patient need to be seen in the office in a week by the nurse practitioner I will make the arrange for her to be seen by Dr. Basilio at the [facility] to consider [employer]-D Attestations Medical Necessity Statement*: Disposition as per the primary Coding Level of Care Code 22436 Diagnoses Chest pain R07.9 Encounter for testing following appropriate discharge of implantable cardioverter-defibrillator (ICD) Z45.02 Nonischemic cardiomyopathy I42.8 Chronic systolic (congestive) heart failure I50.22 GERRI (acute kidney injury) N17.9 Anemia D64.9
[2023-01-14] MEDS: amiodarone 200 mg Tablet 400 MG PO ×2 (09:34→17:23)
[2023-01-14] MEDS: pantoprazole DR 40 mg Tablet PO (09:34)
[2023-01-14] MEDS: carvedilol 3.125 mg Tablet PO ×2 (09:34→17:23)
[2023-01-14] MEDS: polyethylene glycol 3350 Pkt 17 gm PO (09:34)
[2023-01-14] MEDS: sacubitril/valsartan 24-26 mg Tablet 1 EACH PO ×2 (09:34→17:23)
[2023-01-14] MEDS: morphine 4 mg/mL SDV 1 mL 2 MG IVP (12:00)
[2023-01-14] MEDS: ondansetron 2 mg/ML SDV 2 mL 4 MG IVP (14:03)
--- NOTE | 2023-01-14 14:24 | P.PN_ITS ---
Subjective Subjective: Patient denies any chest pain this morning. She initially was requesting to go home, but nursing has noted that she has not had much urine output in the last 24 hours. Patient continues to have Leger catheter placed, and has only had about 350 mils out overnight. Medications: Reviewed: Yes Vitals/I&O/Wt Last Vital Signs Temp 98.3 F 01/14/23 04:00 Pulse 72 01/14/23 12:00 Resp 18 01/14/23 12:00 BP 107/64 01/14/23 12:00 Pulse Ox 95 01/14/23 12:00 O2 Del Method 01/13/23 04:00 O2 Flow Rate 2 01/13/23 04:00 01/13/23 01/14/23 01/14/23 22:59 06:59 14:59 Intake Total 1547.5 / 2787.5 1110 / 3897.5 Output Total 105 / 105 155 / 260 Balance 1442.5 / 2682.5 955 / 3637.5 Physical Exam Narrative: General: Cooperative patient in no apparent distress. Well developed. HEENT: Normocephalic, Atraumatic. External ears normal. Nasal passages patent without drainage. MMM. Heart: RRR. Resp: LCTA. No respiratory distress, no use of accessory muscles. Abd: Soft, non-tender. Non-distended. Extremities: No edema. Skin: No rash or lesions on exposed areas. Urinary Catheter Management: Leger: Cath Placed During This Visit: yes Reason for Continuing Indwelling Catheter: Accurate Measurement of Urinary Output in Critically Ill Patients Urinary Catheter Date of Insertion: 01/10/23 Urinary Catheter Time of Insertion: 15:48 Data 01/14/23 03:27 01/14/23 03:27 Micro: Microbiology 01/11/23 20:03 Urine Culture - Final Urine,Clean Catch A&P Assessment and plan (1) Idiopathic ventricular fibrillation: (2) Defibrillator discharge: (3) Nonischemic cardiomyopathy: (4) CHF (congestive heart failure): (5) Cardiogenic shock: (6) Chronic systolic (congestive) heart failure: Plan 53-year-old lady with known ischemic cardiomyopathy, admitted for chest pain and multiple firings from her ICD. Continue close inpatient monitoring. Urine output has fallen off over the last 24 hours. She has a indwelling catheter currently and only about 500 mils out through the night and this morning. Leger was checked and positioning was okay. Bladder scan showed only about 250 mils present. Will resume IV fluids and continue to monitor I's and O's. Can consider renal ultrasound tomorrow if her kidneys were function declines or her urine output is not adequate. Cardiology is consulted and they are managing cardiac medications. Patient was taken for cardiac cath during this hospitalization and no proble matic lesions were identified. Echocardiogram was performed which showed her ejection fraction has not dropped to 15 to 20%. Left ventricular wall was hypokinetic. She was previously on pressors and these have been titrated off. She is currently on amiodarone and cardiology is managing. They have recommended starting Entresto once patient is stable, and restarting her carvedilol at a lower dose. In addition, it may be reasonable to start her on Jardiance after discharge. On this admission patient was noted to have an GERRI, with creatinine levels between 1.4 and 1.5. They are currently stable at 1.1. Plan to evaluate for pulmonary embolism using a VQ scan given her kidney status. Will avoid IV contrast. Added Xanax to help with anxiety. Continue other home medications for chronic illnesses. Code Status: Full IVF: NS @ 125ml/hr DVT PPx: Lovenox GI PPx: Protonix ABx: None Diet: Cardiac Discharge plan: TBD Attestations Medical Necessity Statement*: Continue inpatient hospitalization for cardiac monitoring, titration of medications, IV medications. Coding Level of Care Code Acute Code for Chg Fwd Moderate MDM includes number and complexity of problems actively addressed during encounter, amount and/or complexity of data reviewed/ordered and described risk of complication, morbidity or mortality of management as docu mented Diagnoses Idiopathic ventricular fibrillation I49.01 Defibrillator discharge Z45.02 Nonischemic cardiomyopathy I42.8 CHF (congestive heart failure) I50.9 Cardiogenic shock R57.0 Chronic systolic (congestive) heart failure I50.22
[2023-01-14] MEDS: citalopram 20 mg Tablet 40 MG PO (17:23)
[2023-01-14] MEDS: enoxaparin 40 mg/0.4 mL Syringe SUBCUT (17:29)
[2023-01-14] MEDS: HYDROcodone-acetaminophen 5-325 mg Tablet 1 TAB PO (19:24)
[2023-01-14] MEDS: zolpidem 5 mg Tablet 10 MG PO (20:25)
[2023-01-15] VITALS (28 sets, daily range): BP systolic 95–133; BP diastolic 62–79; PULSE 65–76; RESP 13–25; TEMP 36.4–36.9; O2SAT 91–100
[2023-01-15] MEDS: sodium chloride 0.9% 1,000 ML 125 ML IV ×3 (00:50→18:15)
[2023-01-15] MEDS: morphine 4 mg/mL SDV 1 mL 2 MG IVP ×4 (04:55→22:25)
[2023-01-15] MEDS: magnesium oxide 400 mg tablet 200 MG PO (05:01)
[2023-01-15] MEDS: aspirin 81 mg EC Tablet 162 MG PO (05:02)
[2023-01-15] MEDS: montelukast sodium 10 mg Tablet PO (05:02)
[2023-01-15] MEDS: potassium chloride ER 20 mEq Tablet PO (05:02)
[2023-01-15 05:22] LABS: Basophils % 0.6 %; Eosinophils % 0.6 %; Hematocrit 28.2 % (37.0-47.0); Hemoglobin 8.6 g/dL (11.5-15.3); Lymphocytes # 1.3 10^3/uL (0.8-4.8); Lymphocytes % 18.1 %; Mean Corpuscular HGB Conc 30.5 g/dL (30.0-36.0); Mean Corpuscular Hemoglobin 33.9 pg (28.0-34.0); Mean Platelet Volume 12.5 fL (7.4-10.4); Monocytes # 0.5 10^3/uL (0.2-0.9); Neutrophils # 5.11 10^3/uL (1.8-7.7); Neutrophils % 71.9 %; Nucleated Red Blood Cells % 0 %; Platelet Count 129 10^3/cmm (130-400); Red Blood Count 2.54 10^6/uL (4.1-5.3); White Blood Count 7.1 10^3/uL (4.0-10.0)
[2023-01-15 05:41] LABS: Alanine Aminotransferase 49 U/L (0-33); Albumin Level 2.8 g/dL (3.5-5.2); Alkaline Phosphatase 68 U/L (35-105); Anion Gap 11.3 (5-19); Aspartate Amino Transferase 32 U/L (0-32); Blood Urea Nitrogen 14 mg/dL (6-20); Calcium 7.6 mg/dL (8.5-10.5); Carbon Dioxide 18 mmol/L (22-29); Chloride 106 mmol/L (98-107); Globulin 1.8 g/dL (1.3-4.6); Glomerular Filtration Rate 65.5 mL/min (90-130); Glucose 77 mg/dL (65-115); Magnesium 1.6 mg/dL (1.7-2.3); Osmolality Calculated 271 mOsm/kg (285-295); Potassium 4.3 mmol/L (3.5-5.1); Sodium 131 mmol/L (136-145); Total Bilirubin 0.4 mg/dL (0.15-1.2); Total Protein 4.6 g/dL (6.6-8.7)
[2023-01-15] MEDS: HYDROcodone-acetaminophen 5-325 mg Tablet 1 TAB PO ×2 (07:26→19:36)
[2023-01-15] MEDS: amiodarone 200 mg Tablet 400 MG PO ×2 (08:06→17:51)
[2023-01-15] MEDS: sacubitril/valsartan 24-26 mg Tablet 1 EACH PO ×2 (08:07→17:52)
[2023-01-15] MEDS: polyethylene glycol 3350 Pkt 17 gm PO (08:07)
[2023-01-15] MEDS: pantoprazole DR 40 mg Tablet PO (08:07)
[2023-01-15] MEDS: carvedilol 3.125 mg Tablet PO ×2 (08:07→17:52)
--- NOTE | 2023-01-15 09:01 | PM.PN ---
Subjective Subjective: Reports that she feels about the same as yesterday. Denies any chest pain at this time. She says she has had continued intermittent, sharp, short duration chest pains. She has been eating well. Nursing continues to report a decrease in her urine output. Patient has had about 325 out overnight. Vitals/I&O/Wt Last Vital Signs Temp 97.9 F 01/15/23 00:00 Pulse 71 01/15/23 06:00 Resp 22 H 01/15/23 06:00 BP 121/79 01/15/23 06:00 Pulse Ox 100 01/15/23 06:00 O2 Del Method 01/13/23 04:00 O2 Flow Rate 2 01/13/23 04:00 01/14/23 01/15/23 01/15/23 22:59 06:59 14:59 Intake Total 0 / 1000 775 / 1775 Output Total 125 / 125 200 / 325 Balance -125 / 875 575 / 1450 Physical Exam Narrative: General: Cooperative patient in no apparent distress. Well developed. HEENT: Normocephalic, Atraumatic. External ears normal. Nasal passages patent without drainage. MMM. Heart: RRR. Resp: LCTA. No respiratory distress, no use of accessory muscles. Abd: Soft, non-tender. Non-distended. Extremities: No edema. Skin: No rash or lesions on exposed areas. Urinary Catheter Management: Leger: Cath Placed During This Visit: yes Reason for Continuing Indwelling Catheter: Accurate Measurement of Urinary Output in Critically Ill Patients Urinary Catheter Date of Insertion: 01/10/23 Urinary Catheter Time of Insertion: 15:48 Data 01/15/23 04:40 01/15/23 04:40 Micro: Microbiology 01/11/23 20:03 Urine Culture - Final Urine,Clean Catch A&P Assessment and plan (1) Idiopathic ventricular fibrillation: (2) Defibrillator discharge: (3) Nonischemic cardiomyopathy: (4) CHF (congestive heart failure): (5) Cardiogenic shock: (6) Chronic systolic (congestive) heart failure: (7) Macrocytic anemia: (8) Oliguria: Plan 53-year-old lady with known ischemic cardiomyopathy, admitted for chest pain and multiple firings from her ICD. Continue close inpatient monitoring. Urine output has fallen off over the last 24 hours. She has a indwelling catheter currently and only about 500 mils out through the night and this morning. Her BUN and creatinine did improve however, with her creatinine at 0.9 at this time. She did have a very small amount of urine in her left nephrostomy tube. She is drinking well and her fluids were restarted yesterday. I am uncertain as to reason for her oliguria, with improvement in her labs. She is not complaining of any abdominal pain or fullness. Leger was checked and positioning was okay. Bladder scan showed only about 250 mils present. Will order renal ultrasound and evaluate for placement of the nephrostomy tube. In addition she has macrocytic anemia with an MCV of 111. We will get a B12 and folate. Her platelets did drop to 129 from 135. Cardiology is following for her cardiac medications. She had recent cardiac cath with no concerning lesions present. Echocardiogram was performed which showed her ejection fraction has not dropped to 15 to 20%. Left ventricular wall was hypokinetic. She is currently on amiodarone, cards has recommended starting Entresto once patient is stable. VQ scan was performed yesterday and was low probability for pulmonary embolism. Continue other home medications for chronic illnesses. Code Status: Full IVF: NS @ 125ml/hr DVT PPx: Lovenox GI PPx: Protonix ABx: None Diet: Cardiac Discharge plan: TBD Attestations Medical Necessity Statement*: Continue inpatient hospitalization for cardiac monitoring, titration of medications, IV medications. Coding Level of Care Code Acute Code for Chg Fwd Moderate MDM includes number and complexity of problems actively addressed during encounter, amount and/or complexity of data reviewed/ordered and described risk of complication, morbidity or mortality of management as documented Diagnoses Idiopathic ventricular fibrillation I49.01 Defibrillator discharge Z45.02 Nonischemic cardiomyopathy I42.8 CHF (congestive heart failure) I50.9 Cardiogenic shock R57.0 Chronic systolic (congestive) heart failure I50.22 Macrocytic anemia D53.9 Oliguria R34
--- NOTE | 2023-01-15 13:39 | PC.SOCIAL ---
IMM UPDATED IMM dated and initialed and copy given to patient and placed in chart.
--- NOTE | 2023-01-15 13:53 | P.PN_ITS ---
Subjective Subjective: The patient is feeling okay. She was having a low urine output. Vitals remaining stable otherwise. No new arrhythmias. Medications: Medication Review Details: Current Medications Acetaminophen (Acetaminophen 325 Mg Tablet) 650 mg PO Q6H PRN PRN Reason: Mild/Mod Pain Or Temp >/= 101 Alprazolam (Alprazolam 0.5 Mg Tablet) 0.5 mg PO TID PRN PRN Reason: ANXIETY Last Admin: 01/14/23 20:25 Dose: 0.5 mg Amiodarone HCl (Amiodarone 200 Mg Tablet) 400 mg PO BID [facility] Last Admin: 01/15/23 08:06 Dose: 400 mg Aspirin (Aspirin 81 Mg Ec Tablet) 162 mg PO QAM [facility] Last Admin: 01/15/23 05:02 Dose: 162 mg Carvedilol (Carvedilol 6.25 Mg Tablet) 6.25 mg PO BID@0900,2100 [facility] Last Admin: 01/11/23 08:20 Dose: Not Given Carvedilol (Carvedilol 3.125 Mg Tablet) 3.125 mg PO BID [facility] Last Admin: 01/15/23 08:07 Dose: 3.125 mg Citalopram Hydrobromide (Citalopram 20 Mg Tablet) 40 mg PO QPM [facility] Last Admin: 01/14/23 17:23 Dose: 40 mg Enoxaparin Sodium (Enoxaparin 40 Mg/0.4 Ml Syringe) 40 mg SUBCUT Q24H [facility] Last Admin: 01/14/23 17:29 Dose: 40 mg Sodium Chloride (Sodium Chloride 0.9%) 1,000 mls @ 125 mls/hr IV .Q8H [facility] Last Admin: 01/15/23 08:50 Dose: 125 mls/hr Norepinephrine Bitartrate 4 mg (/ Dextrose) 254 mls @ 0 mls/hr IV .Q0M [facility]; Protocol Last Titration: 01/12/23 19:00 Dose: Infused Dobutamine HCl/Dextrose (Dobutamine Drip) 500 mg in 250 mls @ 0 mls/hr IV .Q0M [facility]; Protocol Last Titration: 01/12/23 19:00 Dose: Infused Magnesium Oxide (Magnesium Oxide 400 Mg Tablet) 200 mg PO QAM [facility] Last Admin: 01/15/23 05:01 Dose: 200 mg Metoclopramide HCl (Metoclopramide 5 Mg/Ml Sdv 2 Ml) 5 mg IVP Q6H PRN PRN Reason: NAUSEA AND VOMITING Last Admin: 01/13/23 14:57 Dose: 5 mg Montelukast Sodium (Montelukast Sodium 10 Mg Tablet) 10 mg PO QAM [facility] Last Admin: 01/15/23 05:02 Dose: 10 mg Morphine Sulfate (Morphine 4 Mg/Ml Sdv 1 Ml) 2 mg IVP Q4H PRN PRN Reason: SEVERE PAIN Last Admin: 01/15/23 11:41 Dose: 2 mg Naloxone HCl (Naloxone 0.4 Mg/Ml Sdv) 0.1 mg IVP Q2M PRN PRN Reason: OPIATERV Nitroglycerin (Nitroglycerin 0.4 Mg Sublingual Tablet) 0.4 mg SUBLINGUAL Q5M PRN PRN Reason: Chest Pain Last Admin: 01/12/23 15:11 Dose: 0.4 mg Ondansetron HCl (Ondansetron 2 Mg/Ml Sdv 2 Ml) 4 mg IVP Q8H PRN PRN Reason: vomiting, or N/V if npo Last Admin: 01/14/23 14:03 Dose: 4 mg Pantoprazole Sodium (Pantoprazole Dr 40 Mg Tablet) 40 mg PO DAILY [facility] Last Admin: 01/15/23 08:07 Dose: 40 mg Polyethylene Glycol (Polyethylene Glycol 3350 Pkt 17 Gm) 17 gm PO DAILY [facility] Last Admin: 01/15/23 08:07 Dose: 17 gm Potassium Chloride (Potassium Chloride Er 20 Meq Tablet) [facility] [place] Admin: 01/15/23 05:02 Dose: 20 meq Sacubitril/Valsartan (Sacubitril/Valsartan 24-26 Mg Tablet) 4 each PO BID@0900,2100 [facility] Last Admin: 01/11/23 08:21 Dose: Not Given Sacubitril/Valsartan (Sacubitril/Valsartan 24-26 Mg Tablet) 1 each PO BID [facility] Last Admin: 01/15/23 08:07 Dose: 1 each Vitals/I&O/Wt Last Vital Signs Temp 98.0 F 01/15/23 09:00 Pulse 65 01/15/23 10:00 Resp 22 H 01/15/23 11:41 BP 117/76 01/15/23 11:00 Pulse Ox 91 01/15/23 10:00 O2 Del Method 01/15/23 09:00 O2 Flow Rate 2 01/13/23 04:00 01/14/23 01/15/23 01/15/23 22:59 06:59 14:59 Intake Total 0 / 1000 775 / 1775 1300 / 1300 Output Total 125 / 125 200 / 325 Balance -125 / 875 575 / 1450 1300 / 1300 Physical Exam Narrative: GENERAL: The patient is alert and oriented times three. Not in any acute distress. HEENT: No significant pallor, icterus or lymphadenopathy.Oral cavity: There are no mucous membrane lesions. NECK: Trachea appears to be central. No masses noted. No JVD or thyromegaly appreciated. RESPIRATORY: Chest is symmetrical. No intercostals muscle retraction or any accessory muscle activation. There is no chest wall tenderness. Breath sounds are heard bilaterally. No rales or rhonchi heard. No evidence of any consolidation. BREASTS: Deferred. HEART: The heart sounds are normal. No S3 or S4. Short systolic murmur in the lower sternal border. No pericardial rub ABDOMEN: No vessel pulsations or distention. No tenderness. No organomegaly appreciated. Bowel sounds are normally heard. : Deferred. RECTAL: Deferred. LYMPHATIC: No lymphadenopathy noted in the neck. EXTREMITIES: No edema or cyanosis. No clubbing. MUSCULOSKELETAL: No acute joint deformities or swelling SKIN: There are no significant rashes or ecchymosis NEUROPSYCHIATRIC: The patient is alert and oriented x3. Appears to be in a good mood. No tremors or rigidity noted. Urinary Catheter Management: Leger: Cath Placed During This Visit: yes Reason for Continuing Indwelling Catheter: Accurate Measurement of Urinary Output in Critically Ill Patients Urinary Catheter Date of Insertion: 01/10/23 Urinary Catheter Time of Insertion: 15:48 Data 01/15/23 04:40 01/15/23 04:40 Other Labs: Laboratory Last Values WBC 7.1 10^3/uL (4.0-10.0) 01/15/23 04:40 RBC 2.54 10^6/uL (4.1-5.3) L 01/15/23 04:40 Hgb 8.6 g/dL (11.5-15.3) L 01/15/23 04:40 Hct 28.2 % (37.0-47.0) L 01/15/23 04:40 MCV 111.0 fl (81-99) H 01/15/23 04:40 MCH 33.9 pg (28.0-34.0) 01/15/23 04:40 MCHC 30.5 g/dL (30.0-36.0) 01/15/23 04:40 RDW 16.0 % (12.1-15.1) H 01/15/23 04:40 Plt Count 129 10^3/cmm (130-400) L 01/15/23 04:40 MPV 12.5 fL (7.4-10.4) H 01/15/23 04:40 Neut % (Auto) 71.9 % 01/15/23 04:40 Lymph % (Auto) 18.1 % 01/15/23 04:40 Scott % (Auto) 7.0 % 01/15/23 04:40 Eos % (Auto) 0.6 % 01/15/23 04:40 Baso % (Auto) 0.6 % 01/15/23 04:40 Neut # (Auto) 5.11 10^3/uL (1.8-7.7) 01/15/23 04:40 Lymph # (Auto) 1.3 10^3/uL (0.8-4.8) 01/15/23 04:40 Scott # (Auto) 0.5 10^3/uL (0.2-0.9) 01/15/23 04:40 Eos # (Auto) 0.0 10^3/uL (0.0-0.8) 01/15/23 04:40 Baso # (Auto) 0.0 10^3/uL (0.0-0.1) 01/15/23 04:40 Nucleated RBC % (auto) 0 % 01/15/23 04:40 Nucleated RBCs # 0.0 /100WBC 01/15/23 04:40 PT 16.10 SECONDS (12.1-14.9) H 01/10/23 12:00 INR 1.25 (0.8-1.2) H 01/10/23 12:00 Specimen Type Arterial 01/11/23 11:50 Specimen Type Arterial 01/11/23 11:50 Sample Site Not specified 01/11/23 11:50 Sample Site Not specified 01/11/23 11:50 ABG pH 7.51 (7.35-7.45) H 01/10/23 12:04 ABG pCO2 24.3 mmHg (35-45) L 01/10/23 12:04 ABG pO2 251.0 mmHg (80.0-100.0) H 01/10/23 12:04 ABG HCO3 19.5 mmol/L (22-26) L 01/10/23 12:04 ABG O2 Saturation 99.4 01/10/23 12:04 ABG Base Excess -2.2 mmol/L (-2.0-2.0) L 01/10/23 12:04 Michi Test N/a 01/11/23 11:50 Michi Test N/a 01/11/23 11:50 A-a O2 Gradient 5.7 mmHg (5-10) 01/11/23 11:50 A-a O2 Gradient 9.3 mmHg (5-10) 01/11/23 11:50 Hematocrit 33.0 % (37-47) L 01/11/23 11:50 Hematocrit 33.2 % (37-47) L 01/11/23 11:50 Hgb O2 Saturation 22.0 % (95-100) L 01/11/23 11:50 Hgb O2 Saturation 89.1 % (95-100) L 01/11/23 11:50 Carboxyhemoglobin 1.2 %THgb (0.4-20.1) 01/11/23 11:50 Carboxyhemoglobin 1.3 %THgb (0.4-20.1) 01/11/23 11:50 Methemoglobin 0.2 % (0.4-1.5) L 01/11/23 11:50 Methemoglobin 0.9 % (0.4-1.5) 01/11/23 11:50 Total Hemoglobin 10.8 g/dL (12-16) L 01/11/23 11:50 Total Hemoglobin 10.8 g/dL (12-16) L 01/11/23 11:50 Sodium 138.0 mmol/L (131-143) 01/10/23 12:04 Potassium 3.8 mmol/L (3.5-5.0) 01/10/23 12:04 Glucose 179.0 mg/dL (70-115) H 01/10/23 12:04 Ionized Calcium 1.1 mmol/L (1.1-1.4) 01/10/23 12:04 O2 Delivery Device Room air 01/11/23 11:50 O2 Delivery Device Room air 01/11/23 11:50 O2 Liters/Min 15.0 % 01/10/23 12:04 FiO2 21.0 % 01/11/23 11:50 Applications Trainer ID Ao 01/11/23 11:50 Applications Trainer ID Pa 01/11/23 11:50 Sodium 131 mmol/L (136-145) L 01/15/23 04:40 Potassium 4.3 mmol/L (3.5-5.1) 01/15/23 04:40 Chloride 106 mmol/L (98-107) 01/15/23 04:40 Carbon Dioxide 18 mmol/L (22-29) L 01/15/23 04:40 Anion Gap 11.3 (5-19) 01/15/23 04:40 BUN 14 mg/dL (6-20) 01/15/23 04:40 Creatinine 0.9 mg/dL (0.5-0.9) 01/15/23 04:40 GFR Calculation 65.5 mL/min (90-130) L 01/15/23 04:40 Glucose 77 mg/dL (65-115) 01/15/23 04:40 Calculated Osmolality 271 mOsm/kg (285-295) L 01/15/23 04:40 Lactate 2.3 mmol/L (0.5-2.2) H 01/11/23 14:00 Calcium 7.6 mg/dL (8.5-10.5) L 01/15/23 04:40 Magnesium 1.6 mg/dL (1.7-2.3) L 01/15/23 04:40 Total Bilirubin 0.4 mg/dL (0.15-1.2) 01/15/23 04:40 AST 32 U/L (0-32) 01/15/23 04:40 ALT 49 U/L (0-33) H 01/15/23 04:40 Alkaline Phosphatase 68 U/L (35-105) 01/15/23 04:40 Troponin T Baseline 19 ng/L (0-10) H 01/10/23 12:00 Troponin T 120 Minute 26.81 ng/L (0-10) H 01/10/23 14:17 Delta Troponin T 7.81 ABS# (0-10) 01/10/23 14:17 Troponin T Hi Sens 6Hr 30.12 ng/L (0-10) H 01/10/23 18:16 Troponin T Hi Sens 6Hr Delta 11.12 ng/L (0-12) 01/10/23 18:16 NT-Pro-B Natriuret Pep 45768 pg/mL (0-125) H 01/10/23 12:00 Total Protein 4.6 g/dL (6.6-8.7) L 01/15/23 04:40 Albumin 2.8 g/dL (3.5-5.2) L 01/15/23 04:40 Globulin 1.8 g/dL (1.3-4.6) 01/15/23 04:40 Lipase 22 U/L (13-60) 01/10/23 12:00 Urine Color Yellow (Yellow) 01/11/23 20:03 Urine Appearance Clear (CLEAR) 01/11/23 20:03 Urine pH 5 (5-7) 01/11/23 20:03 Ur Specific Diablo 1.015 (1.005-1.030) 01/11/23 20:03 Urine Protein 1+ (Negative) H 01/11/23 20:03 Urine Glucose (UA) Norm (Normal) 01/11/23 20:03 Urine Ketones Negative (Negative) 01/11/23 20:03 Urine Blood 2+ (Negative) H 01/11/23 20:03 Urine Nitrate Negative (Negative) 01/11/23 20:03 Urine Bilirubin 1+ (Negative) H 01/11/23 20:03 Urine Urobilinogen Norm mg/dL (Negative) 01/11/23 20:03 Ur Leukocyte Esterase Trace (Negative) H 01/11/23 20:03 Urine RBC 0-4 /hpf (0-2) H 01/11/23 20:03 Urine WBC 25-40 /hpf (0-5) H 01/11/23 20:03 Ur Squamous Epith Cells 0-4 /hpf (0-5) H 01/11/23 20:03 Amorphous Sediment 1+ /hpf 01/11/23 20:03 Urine Bacteria Trace /hpf (NONE) 01/11/23 20:03 A&P Assessment and plan (1) Chest pain: Patient may have occasional chest pain. Overall her status is stable. No significant coronary disease by angiogram. (2) Encounter for testing following appropriate discharge of implantable cardioverter-defibrillator (ICD): Patient seems to be tolerating amiodarone so far well. She need to be on amiodarone 400 mg p.o. twice daily for a total of 10 days followed by 400 mg daily. (3) Nonischemic cardiomyopathy: Patient was restarted on a lower dose of carvedilol and Entresto. She seems to be tolerating the medication so far well. Continue on the current medications. I am continue on the current dose for the time being. (4) Chronic systolic (congestive) heart failure: I may add Lasix 20 mg p.o. daily and spironolactone 25 mg p.o. daily to the current regimen (5) GERRI (acute kidney injury): Currently the kidney function is normal. Current related to the arrhythmia/low output state. The kidney function has improved. May continue on the current management (6) Anemia: Could be multifactorial. Evaluation and management as per Dr. Rizzo Plan Disposition as per Dr. Rizzo he is a patient continues remain stable, may be discharged home. Amiodarone does need to be tapered down as mentioned above Patient need to be seen in the office in a week by the nurse practitioner I will make the arrange for her to be seen by Dr. Basilio at the [facility] to consider PALEOBOTANIST-D Attestations Medical Necessity Statement*: Deferred to the primary Coding Level of Care Code 40354 Diagnoses Chest pain R07.9 Encounter for testing following appropriate discharge of implantable cardioverter-defibrillator (ICD) Z45.02 Nonischemic cardiomyopathy I42.8 Chronic systolic (congestive) heart failure I50.22 GERRI (acute kidney injury) N17.9 Anemia D64.9
[2023-01-15] MEDS: ALPRAZolam 0.5 mg Tablet PO (15:18)
--- NOTE | 2023-01-15 15:26 | USR_ITS ---
PROCEDURE INFORMATION: Exam: US Retroperitoneal; Complete; Kidneys and Bladder Exam date and time: 01/15/2023 4:49 PM Age: 53 years old Clinical indication: Abnormal findings; Abnormal lab test; Abnormal kidney function lab tests; Additional info: Oliguria TECHNIQUE: Imaging protocol: Real-time ultrasound of the retroperitoneum with image documentation. Complete exam focused on the kidneys and bladder. COMPARISON: CT abdomen pelvis wo con [id number] 12/30/2022 2:55 PM FINDINGS: Right kidney: Normal. No stones. No hydronephrosis. Left kidney: Normal. No stones. No hydronephrosis. Intraperitoneal space: Small amount of free fluid in the pelvis. Urinary bladder: Leger catheter in the urinary bladder. US/US renal BI* [id number] IMPRESSION: 1. Negative for hydronephrosis or renal calculus. 2. Small amount of free fluid in the pelvis. 3. Leger catheter in the urinary bladder.
--- NOTE | 2023-01-15 15:45 | PC.NURSE ---
Transfer Note Patient transferred to CSU room 107 from ICU via bed. Handoff report given to BLADE Vicente. Patient oriented to environment and equipment. Covering service notified. Orders reviewed and will continue to monitor. Patient alert/oriented x4 on 2LNC at time of transfer. No wounds noted at this time. All patient belongings transferred with patient to CSU and placed at bedside.
--- NOTE | 2023-01-15 16:34 | PC.NURSE ---
Patient arrived via bed from ICU at 1558. All vitals stable. Patient requesting morphine for 8/10 pain. Nurse gave 2mg. Patient now resting in bed comfortably. Report taken from Allison Tan RN
[2023-01-15] MEDS: citalopram 20 mg Tablet 40 MG PO (17:51)
[2023-01-15] MEDS: enoxaparin 40 mg/0.4 mL Syringe SUBCUT (17:52)
[2023-01-15] MEDS: metoclopramide 5 mg/mL SDV 2 mL IVP (18:15)
[2023-01-15] MEDS: ondansetron 2 mg/ML SDV 2 mL 4 MG IVP (19:19)
[2023-01-15] MEDS: zolpidem 5 mg Tablet 10 MG PO (21:01)
[2023-01-15] MEDS: acetaminophen 325 mg Tablet 650 MG PO (23:34)
[2023-01-16] VITALS (15 sets, daily range): BP systolic 100–121; BP diastolic 64–85; PULSE 66–76; RESP 15–25; TEMP 36.4–36.8; O2SAT 95–100
[2023-01-16] MEDS: sodium chloride 0.9% 1,000 ML 125 ML IV ×2 (02:03→10:55)
[2023-01-16] MEDS: HYDROcodone-acetaminophen 5-325 mg Tablet 1 TAB PO ×4 (03:18→23:19)
[2023-01-16 03:28] LABS: Basophils % 0.6 %; Eosinophils % 0.2 %; Hematocrit 28.9 % (37.0-47.0); Hemoglobin 8.9 g/dL (11.5-15.3); Lymphocytes # 1.6 10^3/uL (0.8-4.8); Lymphocytes % 24.5 %; Mean Corpuscular HGB Conc 30.8 g/dL (30.0-36.0); Mean Corpuscular Hemoglobin 34.4 pg (28.0-34.0); Mean Corpuscular Volume 111.6 fl (81-99); Monocytes # 0.4 10^3/uL (0.2-0.9); Monocytes % 6.6 %; Neutrophils # 4.36 10^3/uL (1.8-7.7); Neutrophils % 66.9 %; Nucleated Red Blood Cells % 0 %; Platelet Count 144 10^3/cmm (130-400); Red Blood Count 2.59 10^6/uL (4.1-5.3); Red Cell Distribution Width 16.1 % (12.1-15.1); White Blood Count 6.5 10^3/uL (4.0-10.0)
[2023-01-16 03:29] LABS: Reticulocyte % 4.9 % (0.5-2.0)
[2023-01-16 04:09] LABS: Folate Level 10.4 ng/mL (4.8-37.3)
[2023-01-16 04:11] LABS: Alanine Aminotransferase 67 U/L (0-33); Albumin Level 2.9 g/dL (3.5-5.2); Alkaline Phosphatase 71 U/L (35-105); Aspartate Amino Transferase 68 U/L (0-32); Blood Urea Nitrogen 15 mg/dL (6-20); Calcium 7.6 mg/dL (8.5-10.5); Carbon Dioxide 18 mmol/L (22-29); Chloride 105 mmol/L (98-107); Globulin 1.8 g/dL (1.3-4.6); Glomerular Filtration Rate 65.5 mL/min (90-130); Glucose 83 mg/dL (65-115); Osmolality Calculated 268 mOsm/kg (285-295); Sodium 129 mmol/L (136-145); Thyroid Stimulating Hormone 6.61 uIU/mL (0.27-4.20); Total Bilirubin 0.4 mg/dL (0.15-1.2); Total Protein 4.7 g/dL (6.6-8.7); Vitamin B12 1922 pg/mL (232-1245)
[2023-01-16 04:16] LABS: Anion Gap 10.8 (5-19); Potassium 4.8 mmol/L (3.5-5.1)
[2023-01-16] MEDS: potassium chloride ER 20 mEq Tablet PO (05:28)
[2023-01-16] MEDS: magnesium oxide 400 mg tablet 200 MG PO (05:28)
[2023-01-16] MEDS: aspirin 81 mg EC Tablet 162 MG PO (05:28)
[2023-01-16] MEDS: montelukast sodium 10 mg Tablet PO (05:28)
[2023-01-16] MEDS: polyethylene glycol 3350 Pkt 17 gm PO (08:13)
[2023-01-16] MEDS: FUROsemide 20 mg Tablet PO (08:13)
[2023-01-16] MEDS: amiodarone 200 mg Tablet 400 MG PO ×2 (08:13→18:00)
[2023-01-16] MEDS: carvedilol 3.125 mg Tablet PO ×2 (08:13→18:01)
[2023-01-16] MEDS: sacubitril/valsartan 24-26 mg Tablet 1 EACH PO ×2 (08:14→18:00)
[2023-01-16] MEDS: pantoprazole DR 40 mg Tablet PO (08:14)
[2023-01-16] MEDS: spironolactone 25 mg Tablet PO (08:15)
--- NOTE | 2023-01-16 12:53 | XR_ITS ---
WS: [id number] EXAMINATION: XR chest 1V portable [id number] REASON FOR EXAM: SOB COMPARISON: 01/12/2023 ORDER DATE: 01/16/2023 1:06 PM TECHNIQUE: A single, portable frontal chest x-ray was obtained. XR chest 1V portable [id number] FINDINGS: There is been a right arm PICC line placement. The tip is in good position at the cavoatrial junction . There is groundglass airspace opacities in the right lung base with right perihilum and peribronchial cuffing bilaterally. Small right pleural effusion. ICD noted on the left probable cardiomegaly. XR/XR chest 1V portable [id number] IMPRESSION: Suspect early CHF with small right effusion.
[2023-01-16] MEDS: FUROsemide 10 mg/mL SDV 4mL 40 MG IVP ×2 (12:55→23:18)
[2023-01-16] MEDS: ALPRAZolam 0.5 mg Tablet PO ×2 (12:56→23:19)
[2023-01-16] MEDS: ipratropium-albuterol 3 mL Neb INHALATION (13:03)
--- NOTE | 2023-01-16 13:33 | PM.PN ---
Subjective Subjective: Patient was seen and examined this morning she was complaining of significant shortness of breath, She has poor urine output, total length of stay so far has been: Positive 17ls, x-ray chest is showing: will stop IV fluids. Started on Lasix 40 IV twice daily, DuoNebs. She is also complaining of constipation, will start her on lactulose. Renal ultrasound has shown no hydronephrosis,?or renal calculus. Medications: Reviewed: Yes Medication Review Details: Generic Name Dose Route Start Last Admin Trade Name Freq PRN Reason Stop Dose Admin Acetaminophen 650 mg 01/10/23 17:34 01/15/23 23:34 Acetaminophen 32 5 Mg Tablet PO 650 mg Q6H PRN Administration Mild/Mod Pain Or Temp >/= 101 Hydrocodone Bitart /Acetaminophen 1 tab 01/15/23 19:17 01/16/23 03:18 Hydrocodone-Acet aminophen 5-325 Mg Tablet PO 1 tab Q4H PRN Administration MODERATE PAIN Albuterol/Ipratrop ium 3 ml 01/16/23 14:00 01/16/23 13:03 Ipratropium-Albu terol 3 Ml Neb INHALATION 3 ml Q6H.RESP AURE Administration Alprazolam 0.5 mg 01/13/23 08:29 01/16/23 12:56 Alprazolam 0.5 M g Tablet PO 0.5 mg TID PRN Administration ANXIETY Amiodarone HCl 400 mg 01/12/23 18:00 01/16/23 08:13 Amiodarone 200 M g Tablet PO 400 mg BID AURE Administration Aspirin 162 mg 01/11/23 06:00 01/16/23 05:28 Aspirin 81 Mg Ec Tablet PO 162 mg QAM AURE Administration Carvedilol 6.25 mg 01/10/23 21:00 01/11/23 08:20 Carvedilol 6.25 Mg Tablet PO Not Given BID@0900,2100 [facility] Carvedilol 3.125 mg 01/12/23 21:55 01/16/23 08:13 Carvedilol 3.125 Mg Tablet PO 3.125 mg BID AURE Administration Citalopram Hydrobr omide 40 mg 01/10/23 18:00 01/15/23 17:51 Citalopram 20 Mg Tablet PO 40 mg QPM AURE Administration Enoxaparin Sodium 40 mg 01/10/23 18:30 01/15/23 17:52 Enoxaparin 40 Mg /0.4 Ml Syringe SUBCUT 40 mg Q24H AURE Administration Furosemide 40 mg 01/16/23 12:45 01/16/23 12:55 Furosemide 10 Mg /Ml Sdv 4ml IVP 40 mg Q12H AURE Administration Magnesium Oxide 200 mg 01/11/23 06:00 01/16/23 05:28 Magnesium Oxide 400 Mg Tablet PO 200 mg QAM AURE Administration Metoclopramide HCl 5 mg 01/10/23 20:14 01/15/23 18:15 Metoclopramide 5 Mg/Ml Sdv 2 Ml IVP 5 mg Q6H PRN Administration NAUSEA AND VOMITI NG Montelukast Sodium 10 mg 01/11/23 06:00 01/16/23 05:28 Montelukast Sodi um 10 Mg Tablet PO 10 mg QAM AURE Administration Morphine Sulfate 2 mg 01/14/23 19:45 01/15/23 22:25 Morphine 4 Mg/Ml Sdv 1 Ml IVP 2 mg Q4H PRN Administration SEVERE PAIN Nitroglycerin 0.4 mg 01/10/23 17:55 01/12/23 15:11 Nitroglycerin 0. 4 Mg Sublingual Ta blet SUBLINGUAL 0.4 mg Q5M PRN Administration Chest Pain Ondansetron HCl 4 mg 01/10/23 17:34 01/15/23 19:19 Ondansetron 2 Mg /Ml Sdv 2 Ml IVP 4 mg Q8H PRN Administration vomiting, or N/V if npo Pantoprazole Sodiu m 40 mg 01/11/23 09:00 01/16/23 08:[address] 40 Mg Tablet PO 40 mg DAILY AURE Administration Polyethylene Glyco l 17 gm 01/11/23 09:00 01/16/23 08:13 Polyethylene Gly col 3350 Pkt 17 Gm PO 17 gm DAILY AURE Administration Potassium Chloride 20 meq 01/11/23 06:00 01/16/23 05:28 Potassium Chlori de Er 20 Meq Table t PO 20 meq QAM AURE Administration Sacubitril/Valsart an 4 each 01/10/23 21:00 01/11/23 08:21 Sacubitril/Valsa rtan 24-26 Mg Tabl et PO Not Given BID@0900,2100 AURE Sacubitril/Valsart an 1 each 01/13/23 09:00 01/16/23 08:14 Sacubitril/Valsa rtan 24-26 Mg Tabl et PO 1 each BID AURE Administration Spironolactone 25 mg 01/16/23 09:00 01/16/23 08:15 Spironolactone 2 5 Mg Tablet PO 25 mg DAILY AURE Administration Zolpidem Tartrate 10 mg 01/15/23 21:00 01/15/23 21:01 Zolpidem 5 Mg Ta blet PO 10 mg BEDTIME PRN Administration INSOMNIA Vitals/I&O/Wt Last Vital Signs Temp 97.7 F 01/16/23 12:35 Pulse 71 01/16/23 13:08 Resp 22 H 01/16/23 13:03 BP 100/73 01/16/23 12:35 Pulse Ox 100 01/16/23 13:03 O2 Del Method 01/16/23 13:03 O2 Flow Rate 2 01/16/23 13:03 01/15/23 01/16/23 01/16/23 22:59 06:59 14:59 Intake Total 1425.833 / 2725.833 975 / 3700.833 1499.25 / 1499.25 Output Total 300 / 300 210 / 510 190 / 190 Balance 1125.833 / 2425.833 765 / 3190.833 1309.25 / 1309.25 Physical Exam Const: COMMON NORMALS: patient oriented x3 HENMT: COMMON NORMALS: normocephalic and atraumatic HEAD & SCALP: normocephalic and atraumatic Resp: OTHER: Bilateral diminished air entry, bilateral wheezing in both lungs Cardio: COMMON NORMALS: regular rate, regular rhythm, S1 normal heart sound present, S2 normal heart sound present, No gallops present (Cardio), No murmurs present (Cardio), No rub (Cardio) and Peripheral pulses 2+ throughout RATE: regular rate RHYTHM: regular rhythm HEART SOUNDS: S1 normal heart sound present and S2 normal heart sound present PERIPHERAL PULSES: Peripheral pulses 2+ throughout GI: COMMON NORMALS: Normal to inspection, nondistended, normoactive bowel sounds present, Soft to palpation, non-tender, No hepatosplenomegaly present and no masses AUSCULTATION: Yes normoactive bowel sounds PALPATION: Yes Soft to palpation and Yes No hepatosplenomegaly present RECTAL EXAM: deferred Extremity: COMMON NORMALS: no clubbing, cyanosis or edema and no pedal edema Neuro: COMMON NORMALS: patient oriented x3 Urinary Catheter Management: Leger: Cath Placed During This Visit: yes Reason for Continuing Indwelling Catheter: Accurate Measurement of Urinary Output in Critically Ill Patients Urinary Catheter Date of Insertion: 01/10/23 Urinary Catheter Time of Insertion: 15:48 Data 01/16/23 03:09 01/16/23 03:09 A&P Assessment and plan (1) Idiopathic ventricular fibrillation: (2) Defibrillator discharge: (3) Nonischemic cardiomyopathy: (4) CHF (congestive heart failure): (5) Cardiogenic shock: (6) Chronic systolic (congestive) heart failure: (7) Macrocytic anemia: (8) Oliguria: Plan 53-year-old lady with known ischemic cardiomyopathy, admitted for chest pain and multiple firings from her ICD. Continue close inpatient monitoring. Urine output has fallen off over the last 24 hours. She has a indwelling catheter currently and only about 500 mils out through the night and this morning. Her BUN and creatinine did improve however, with her creatinine at 0.9 at this time. She did have a very small amount of urine in her left nephrostomy tube. She is drinking well and her fluids were restarted yesterday. I am uncertain as to reason for her oliguria, with improvement in her labs. She is not complaining of any abdominal pain or fullness. Leger was checked and positioning was okay. Bladder scan showed only about 250 mils present. Will order renal ultrasound and evaluate for placement of the nephrostomy tube. In addition she has macrocytic anemia with an MCV of 111. We will get a B12 and folate. Her platelets did drop to 129 from 135. Cardiology is following for her cardiac medications. She had recent cardiac cath with no concerning lesions present. Echocardiogram was performed which showed her ejection fraction has not dropped to 15 to 20%. Left ventricular wall was hypokinetic. She is currently on amiodarone, cards has recommended starting Entresto once patient is stable. VQ scan was performed yesterday and was low probability for pulmonary embolism. Continue other home medications for chronic illnesses. Code Status: Full DVT PPx: Lovenox GI PPx: Protonix ABx: None Diet: Cardiac Discharge plan: TBD Attestations Medical Necessity Statement*: Patient is in hospital for IV diuresis. Coding Level of Care Code 01182 Diagnoses Idiopathic ventricular fibrillation I49.01 Defibrillator discharge Z45.02 Nonischemic cardiomyopathy I42.8 CHF (congestive heart failure) I50.9 Cardiogenic shock R57.0 Chronic systolic (congestive) heart failure I50.22 Macrocytic anemia D53.9 Oliguria R34
[2023-01-16] MEDS: metoclopramide 5 mg/mL SDV 2 mL IVP ×2 (14:40→23:18)
[2023-01-16] MEDS: lactulose oral liq 20 gm/30 mL UDC 30 GM PO (14:41)
--- NOTE | 2023-01-16 15:03 | ECG_ITS ---
[facility] Test Date: 2023-01-16 Pat Name: Elena Pulliam Department: Room: 107 Gender: Female [employer]: : 1970 Requested By: Aj Mendoza Order Number: [id number] Arlette MD: Michael Hill M.D. Measurements Intervals [place] Rate: 72 P: 47 KS: 176 QRS: -25 QRSD: 139 T: 147 QT: 381 QTc: 419 Interpretive Statements SINUS RHYTHM INTRAVENTRICULAR CONDUCTION DELAY [130+ ms QRS DURATION] POSSIBLE ANTERIOR MYOCARDIAL INFARCTION , OF INDETERMINATE AGE [30 ms Q WAVE IN V3/V4, OR R < 0.2 mV IN V4] Compared to ECG 01/12/2023 04:16:15 Left-axis deviation no longer present Myocardial infarct finding still present Electronically Signed On 01-16-2023 23:50:41 CDT by Michael Hill M.D. [id number]
[2023-01-16] MEDS: citalopram 20 mg Tablet 40 MG PO (18:01)
[2023-01-16] MEDS: enoxaparin 40 mg/0.4 mL Syringe SUBCUT (18:01)
[2023-01-16] MEDS: ondansetron 2 mg/ML SDV 2 mL 4 MG IVP (19:18)
[2023-01-16] MEDS: zolpidem 5 mg Tablet 10 MG PO (20:36)
[2023-01-16] MEDS: morphine 4 mg/mL SDV 1 mL 2 MG IVP (20:37)
[2023-01-17] VITALS (15 sets, daily range): BP systolic 87–110; BP diastolic 53–78; PULSE 63–83; RESP 13–19; TEMP 36.1–37.2; O2SAT 92–98
[2023-01-17 02:41] LABS: Basophils % 0.6 %; Eosinophils # 0.1 10^3/uL (0.0-0.8); Eosinophils % 1.5 %; Hematocrit 29.5 % (37.0-47.0); Hemoglobin 9.2 g/dL (11.5-15.3); Lymphocytes # 1.9 10^3/uL (0.8-4.8); Lymphocytes % 28.8 %; Mean Corpuscular HGB Conc 31.2 g/dL (30.0-36.0); Mean Corpuscular Hemoglobin 33.1 pg (28.0-34.0); Mean Corpuscular Volume 106.1 fl (81-99); Mean Platelet Volume 11.8 fL (7.4-10.4); Monocytes # 0.5 10^3/uL (0.2-0.9); Monocytes % 7.7 %; Neutrophils # 4.05 10^3/uL (1.8-7.7); Neutrophils % 60.9 %; Nucleated Red Blood Cells % 0 %; Platelet Count 148 10^3/cmm (130-400); Red Blood Count 2.78 10^6/uL (4.1-5.3); White Blood Count 6.6 10^3/uL (4.0-10.0)
[2023-01-17 03:31] LABS: Alanine Aminotransferase 52 U/L (0-33); Albumin Level 2.9 g/dL (3.5-5.2); Alkaline Phosphatase 75 U/L (35-105); Aspartate Amino Transferase 41 U/L (0-32); Blood Urea Nitrogen 11 mg/dL (6-20); Calcium 7.9 mg/dL (8.5-10.5); Carbon Dioxide 21 mmol/L (22-29); Chloride 106 mmol/L (98-107); Globulin 2.3 g/dL (1.3-4.6); Glucose 78 mg/dL (65-115); Magnesium 1.6 mg/dL (1.7-2.3); Osmolality Calculated 284 mOsm/kg (285-295); Sodium 138 mmol/L (136-145); Total Bilirubin 0.4 mg/dL (0.15-1.2); Total Protein 5.2 g/dL (6.6-8.7)
[2023-01-17 03:34] LABS: Anion Gap 14.7 (5-19); Potassium 3.7 mmol/L (3.5-5.1)
[2023-01-17] MEDS: potassium chloride ER 20 mEq Tablet PO ×2 (05:38→08:51)
[2023-01-17] MEDS: aspirin 81 mg EC Tablet 162 MG PO (05:38)
[2023-01-17] MEDS: montelukast sodium 10 mg Tablet PO (05:38)
[2023-01-17] MEDS: magnesium oxide 400 mg tablet 200 MG PO (05:38)
[2023-01-17] MEDS: ipratropium-albuterol 3 mL Neb INHALATION ×3 (08:07→20:45)
--- NOTE | 2023-01-17 08:50 | PC.SOCIAL ---
IMM update IMM Updated with patient and family at bedside. Verbalized an understanding. Copy Pg 2 provided. Initialled, dated, timed, and placed in chart.
[2023-01-17] MEDS: spironolactone 25 mg Tablet PO (08:51)
[2023-01-17] MEDS: pantoprazole DR 40 mg Tablet PO (08:51)
[2023-01-17] MEDS: amiodarone 200 mg Tablet 400 MG PO ×2 (08:51→17:03)
[2023-01-17] MEDS: sacubitril/valsartan 24-26 mg Tablet 1 EACH PO ×2 (08:51→17:03)
[2023-01-17] MEDS: carvedilol 3.125 mg Tablet PO ×2 (08:51→17:03)
[2023-01-17] MEDS: FUROsemide 10 mg/mL SDV 4mL 40 MG IVP (12:07)
[2023-01-17] MEDS: HYDROcodone-acetaminophen 5-325 mg Tablet 1 TAB PO ×2 (12:58→21:32)
--- NOTE | 2023-01-17 14:23 | PM.PN ---
Subjective Subjective: Patient was seen and examined this morning, shortness of breath is significantly improved, robust urine output with Lasix, currently saturating well on room air. Medications: Reviewed: Yes Medication Review Details: Generic Name Dose Route Start Last Admin Trade Name Freq PRN Reason Stop Dose Admin Acetaminophen 650 mg 01/10/23 17:34 01/15/23 23:34 Acetaminophen 32 5 Mg Tablet PO 650 mg Q6H PRN Administration Mild/Mod Pain Or Temp >/= 101 Hydrocodone Bitart /Acetaminophen 1 tab 01/15/23 19:17 01/17/23 12:58 Hydrocodone-Acet aminophen 5-325 Mg Tablet PO 1 tab Q4H PRN Administration MODERATE PAIN Albuterol/Ipratrop ium 3 ml 01/16/23 14:00 01/17/23 13:35 Ipratropium-Albu terol 3 Ml Neb INHALATION 3 ml Q6H.RESP AURE Administration Amiodarone HCl 400 mg 01/12/23 18:00 01/17/23 08:51 Amiodarone 200 M g Tablet PO 400 mg BID AURE Administration Aspirin 162 mg 01/11/23 06:00 01/17/23 05:38 Aspirin 81 Mg Ec Tablet PO 162 mg QAM AURE Administration Carvedilol 6.25 mg 01/10/23 21:00 01/11/23 08:20 Carvedilol 6.25 Mg Tablet PO Not Given BID@0900,2100 AURE Carvedilol 3.125 mg 01/12/23 21:55 01/17/23 08:51 Carvedilol 3.125 Mg Tablet PO 3.125 mg BID AURE Administration Citalopram Hydrobr omide 40 mg 01/10/23 18:00 01/16/23 18:01 Citalopram 20 Mg Tablet PO 40 mg QPM AURE Administration Enoxaparin Sodium 40 mg 01/10/23 18:30 01/16/23 18:01 Enoxaparin 40 Mg /0.4 Ml Syringe SUBCUT 40 mg Q24H AURE Administration Furosemide 40 mg 01/16/23 12:45 01/17/23 12:07 Furosemide 10 Mg /Ml Sdv 4ml IVP 40 mg Q12H AURE Administration Magnesium Oxide 200 mg 01/11/23 06:00 01/17/23 05:38 Magnesium Oxide 400 Mg Tablet PO 200 mg QAM AURE Administration Metoclopramide HCl 5 mg 01/10/23 20:14 01/16/23 23:18 Metoclopramide 5 Mg/Ml Sdv 2 Ml IVP 5 mg Q6H PRN Administration NAUSEA AND VOMITI NG Montelukast Sodium 10 mg 01/11/23 06:00 01/17/23 05:38 Montelukast Sodi um 10 Mg Tablet PO 10 mg QAM AURE Administration Morphine Sulfate 2 mg 01/14/23 19:45 01/16/23 20:37 Morphine 4 Mg/Ml Sdv 1 Ml IVP 2 mg Q4H PRN Administration SEVERE PAIN Nitroglycerin 0.4 mg 01/10/23 17:55 01/12/23 15:11 Nitroglycerin 0. 4 Mg Sublingual Ta blet SUBLINGUAL 0.4 mg Q5M PRN Administration Chest Pain Ondansetron HCl 4 mg 01/10/23 17:34 01/16/23 19:18 Ondansetron 2 Mg /Ml Sdv 2 Ml IVP 4 mg Q8H PRN Administration vomiting, or N/V if npo Pantoprazole Sodiu m 40 mg 01/11/23 09:00 01/17/23 08:[address] 40 Mg Tablet PO 40 mg DAILY AURE Administration Polyethylene Glyco l 17 gm 01/11/23 09:00 01/17/23 08:52 Polyethylene Gly col 3350 Pkt 17 Gm PO Not Given DAILY AURE Potassium Chloride 20 meq 01/11/23 06:00 01/17/23 05:38 Potassium Chlori de Er 20 Meq Table t PO 20 meq QAM AURE Administration Sacubitril/Valsart an 4 each 01/10/23 21:00 01/11/23 08:21 Sacubitril/Valsa rtan 24-26 Mg Tabl et PO Not Given BID@0900,2100 AURE Sacubitril/Valsart an 1 each 01/13/23 09:00 01/17/23 08:51 Sacubitril/Valsa rtan 24-26 Mg Tabl et PO 1 each BID AURE Administration Spironolactone 25 mg 01/16/23 09:00 01/17/23 08:51 Spironolactone 2 5 Mg Tablet PO 25 mg DAILY AURE Administration Zolpidem Tartrate 10 mg 01/15/23 21:00 01/16/23 20:36 Zolpidem 5 Mg Ta blet PO 10 mg BEDTIME PRN Administration INSOMNIA Vitals/I&O/Wt Last Vital Signs Temp 97.8 F 01/17/23 08:00 Pulse 79 01/17/23 13:37 Resp 16 01/17/23 13:37 BP 99/78 01/17/23 13:01 Pulse Ox 96 01/17/23 13:37 O2 Del Method 01/17/23 13:37 O2 Flow Rate 2 01/16/23 21:25 01/16/23 01/17/23 01/17/23 22:59 06:59 14:59 Intake Total 796 / 2295.25 436 / 436 Output Total 2700 / 2890 2850 / 5740 430 / 430 Balance -1904 / -594.75 -2850 / -3444.75 Physical Exam Const: COMMON NORMALS: patient oriented x3 HENMT: COMMON NORMALS: normocephalic and atraumatic HEAD & SCALP: normocephalic and atraumatic Resp: OTHER: Bilateral diminished air entry Cardio: COMMON NORMALS: regular rate, regular rhythm, S1 normal heart sound present, S2 normal heart sound present, No gallops present (Cardio), No murmurs present (Cardio), No rub (Cardio) and Peripheral pulses 2+ throughout RATE: regular rate RHYTHM: regular rhythm HEART SOUNDS: S1 normal heart sound present and S2 normal heart sound present PERIPHERAL PULSES: Peripheral pulses 2+ throughout GI: COMMON NORMALS: Normal to inspection, nondistended, normoactive bowel sounds present, Soft to palpation, non-tender, No hepatosplenomegaly present and no masses AUSCULTATION: Yes normoactive bowel sounds PALPATION: Yes Soft to palpation and Yes No hepatosplenomegaly present RECTAL EXAM: deferred Extremity: COMMON NORMALS: no clubbing, cyanosis or edema and no pedal edema Neuro: COMMON NORMALS: patient oriented x3 Urinary Catheter Management: Leger: Cath Placed During This Visit: yes Reason for Continuing Indwelling Catheter: Accurate Measurement of Urinary Output in Critically Ill Patients Urinary Catheter Date of Insertion: 01/10/23 Urinary Catheter Time of Insertion: 15:48 Data 01/17/23 02:27 01/17/23 02:27 A&P Assessment and plan (1) Idiopathic ventricular fibrillation: (2) Defibrillator discharge: (3) Nonischemic cardiomyopathy: (4) CHF (congestive heart failure): (5) Cardiogenic shock: (6) Chronic systolic (congestive) heart failure: (7) Macrocytic anemia: (8) Oliguria: Plan 53-year-old lady with known ischemic cardiomyopathy, admitted for chest pain and multiple firings from her ICD. Continue close inpatient monitoring. Urine output has fallen off over the last 24 hours. She has a indwelling catheter currently and only about 500 mils out through the night and this morning. Her BUN and creatinine did improve however, with her creatinine at 0.9 at this time. She did have a very small amount of urine in her left nephrostomy tube. She is drinking well and her fluids were restarted yesterday. I am uncertain as to reason for her oliguria, with improvement in her labs. She is not complaining of any abdominal pain or fullness. Leger was checked and positioning was okay. Bladder scan showed only about 250 mils present. Will order renal ultrasound and evaluate for placement of the nephrostomy tube. In addition she has macrocytic anemia with an MCV of 111. We will get a B12 and folate. Her platelets did drop to 129 from 135. Cardiology is following for her cardiac medications. She had recent cardiac cath with no concerning lesions present. Echocardiogram was performed which showed her ejection fraction has not dropped to 15 to 20%. Left ventricular wall was hypokinetic. She is currently on amiodarone, cards has recommended starting Entresto once patient is stable. VQ scan was performed yesterday and was low probability for pulmonary embolism. Continue other home medications for chronic illnesses. Code Status: Full DVT PPx: Lovenox GI PPx: Protonix ABx: None Diet: Cardiac Discharge plan: TBD Attestations Medical Necessity Statement*: Patient is in hospital for IV diuresis. Coding Level of Care Code 73634 Diagnoses Idiopathic ventricular fibrillation I49.01 Defibrillator discharge Z45.02 Nonischemic cardiomyopathy I42.8 CHF (congestive heart failure) I50.9 Cardiogenic shock R57.0 Chronic systolic (congestive) heart failure I50.22 Macrocytic anemia D53.9 Oliguria R34
[2023-01-17] MEDS: morphine 4 mg/mL SDV 1 mL 2 MG IVP ×2 (15:05→20:10)
[2023-01-17] MEDS: citalopram 20 mg Tablet 40 MG PO (17:03)
[2023-01-17] MEDS: enoxaparin 40 mg/0.4 mL Syringe SUBCUT (17:03)
--- NOTE | 2023-01-17 18:38 | PC.NURSE ---
Applied ice pack on the previous infiltrated IV site on right wrist area. redness noted. no increase swelling and redness noted. pt had tenderness and soreness sensation upon palpation. will monitor for worsening.
--- NOTE | 2023-01-17 20:05 | PC.NURSE ---
Spoke with regarding patient complaints of right forearm pain, previous IV site. Site is hard and red and very painful. ordered ultrasound of right arm.
--- NOTE | 2023-01-17 21:55 | USR_ITS ---
PROCEDURE INFORMATION: Exam: US Duplex Right Upper Extremity Veins, Limited Exam date and time: 01/17/2023 10:16 PM Age: 53 years old Clinical indication: Pain; Arm, lower; Right; Additional info: Redness, swelling, pain, right forearm TECHNIQUE: Imaging protocol: Real-time duplex ultrasound of the right Upper Extremity with 2-D taylor scale, color Doppler flow and spectral waveform analysis with image documentation. Limited exam focused on the right upper extremity veins. COMPARISON: CT angio chest PE protcl [id number] 01/02/2023 9:13 PM FINDINGS: Right deep veins: Partially obstructive thrombosis seen in the right subclavian vein and right axillary vein with a PICC line seen in place. Right superficial veins: Superficial venous thrombosis seen in portions of the basilic vein, cephalic vein and interosseous vein. Soft tissues: Unremarkable. US/[place] [id number] IMPRESSION: Partially obstructive thrombosis seen in the right subclavian vein and right axillary vein with a PICC line seen in place. Superficial venous thrombosis seen in portions of the basilic vein, cephalic vein and interosseous vein.
[2023-01-17] MEDS: zolpidem 5 mg Tablet 10 MG PO (22:34)
[2023-01-17] MEDS: ALPRAZolam 0.5 mg Tablet PO (22:34)
--- NOTE | 2023-01-17 23:11 | P.PN_ITS ---
Subjective Subjective: Current Medications Acetaminophen (Acetaminophen 325 Mg Tablet) 650 mg PO Q6H PRN PRN Reason: Mild/Mod Pain Or Temp >/= 101 Last Admin: 01/15/23 23:34 Dose: 650 mg Hydrocodone Bitart/Acetaminophen (Hydrocodone-Acetaminophen 5-325 Mg Tablet) 1 tab PO Q4H PRN PRN Reason: MODERATE PAIN Last Admin: 01/17/23 21:32 Dose: 1 tab This patient apparently went into heart failure yesterday. For that reason the might have discharge was held. She was treated with IV Lasix. Seems to be feel ing better today. Denies any chest pain or palpitations. Medications: Medication Review Details: Current Medications Acetaminophen (Acetaminophen 325 Mg Tablet) 650 mg PO Q6H PRN PRN Reason: Mild/Mod Pain Or Temp >/= 101 Last Admin: 01/15/23 23:34 Dose: 650 mg Hydrocodone Bitart/Acetaminophen (Hydrocodone-Acetaminophen 5-325 Mg Tablet) 1 tab PO Q4H PRN PRN Reason: MODERATE PAIN Last Admin: 01/17/23 21:32 Dose: 1 tab Albuterol/Ipratropium (Ipratropium-Albuterol 3 Ml Neb) 3 ml INHALATION Q6H.RESP [facility] Last Admin: 01/17/23 20:45 Dose: 3 ml Alprazolam (Alprazolam 0.5 Mg Tablet) 0.5 mg PO TID PRN PRN Reason: ANXIETY Last Admin: 01/17/23 22:34 Dose: 0.5 mg Amiodarone HCl (Amiodarone 200 Mg Tablet) 400 mg PO BID [facility] Last Admin: 01/17/23 17:03 Dose: 400 mg Aspirin (Aspirin 81 Mg Ec Tablet) 162 mg PO QAM [facility] Last Admin: 01/17/23 05:38 Dose: 162 mg Carvedilol (Carvedilol 6.25 Mg Tablet) 6.25 mg PO BID@0900,2100 [facility] Last Admin: 01/11/23 08:20 Dose: Not Given Carvedilol (Carvedilol 3.125 Mg Tablet) 3.125 mg PO BID [facility] Last Admin: 01/17/23 17:03 Dose: 3.125 mg Citalopram Hydrobromide (Citalopram 20 Mg Tablet) 40 mg PO QPM [facility] Last Admin: 01/17/23 17:03 Dose: 40 mg Enoxaparin Sodium (Enoxaparin 40 Mg/0.4 Ml Syringe) 40 mg SUBCUT Q24H [facility] Last Admin: 01/17/23 17:03 Dose: 40 mg Furosemide (Furosemide 10 Mg/Ml Sdv 4ml) 40 mg IVP Q24H AURE Magnesium Oxide (Magnesium Oxide 400 Mg Tablet) 200 mg PO QAM [facility] Last Admin: 01/17/23 05:38 Dose: 200 mg Metoclopramide HCl (Metoclopramide 5 Mg/Ml Sdv 2 Ml) 5 mg IVP Q6H PRN PRN Reason: NAUSEA AND VOMITING Last Admin: 01/16/23 23:18 Dose: 5 mg Montelukast Sodium (Montelukast Sodium 10 Mg Tablet) 10 mg PO QAM [facility] Last Admin: 01/17/23 05:38 Dose: 10 mg Morphine Sulfate (Morphine 4 Mg/Ml Sdv 1 Ml) 2 mg IVP Q4H PRN PRN Reason: SEVERE PAIN Last Admin: 01/17/23 20:10 Dose: 2 mg Naloxone HCl (Naloxone 0.4 Mg/Ml Sdv) 0.1 mg IVP Q2M PRN PRN Reason: OPIATERV Nitroglycerin (Nitroglycerin 0.4 Mg Sublingual Tablet) 0.4 mg SUBLINGUAL Q5M PRN PRN Reason: Chest Pain Last Admin: 01/12/23 15:11 Dose: 0.4 mg Ondansetron HCl (Ondansetron 2 Mg/Ml Sdv 2 Ml) 4 mg IVP Q8H PRN PRN Reason: vomiting, or N/V if npo Last Admin: 01/16/23 19:18 Dose: 4 mg Pantoprazole Sodium (Pantoprazole Dr 40 Mg Tablet) 40 mg PO DAILY [facility] Last Admin: 01/17/23 08:51 Dose: 40 mg Polyethylene Glycol (Polyethylene Glycol 3350 Pkt 17 Gm) 17 gm PO DAILY [facility] Last Admin: 01/17/23 08:52 Dose: Not Given Potassium Chloride (Potassium Chloride Er 20 Meq Tablet) 20 meq PO QAM [facility] Last Admin: 01/17/23 05:38 Dose: 20 meq Sacubitril/Valsartan (Sacubitril/Valsartan 24-26 Mg Tablet) 4 each PO BID@0900,2100 [facility] Last Admin: 01/11/23 08:21 Dose: Not Given Sacubitril/Valsartan (Sacubitril/Valsartan 24-26 Mg Tablet) 1 each PO BID [facility] Last Admin: 01/17/23 17:03 Dose: 1 each Spironolactone (Spironolactone 25 Mg Tablet) 25 mg PO DAILY [facility] Last Admin: 01/17/23 08:51 Dose: 25 mg Zolpidem Tartrate (Zolpidem 5 Mg Tablet) 10 mg PO BEDTIME PRN PRN Reason: INSOMNIA Last Admin: 01/17/23 22:34 Dose: 10 mg Vitals/I&O/Wt Last Vital Signs Temp 97.0 F L 01/17/23 20:00 Pulse 81 01/17/23 20:46 Resp 16 01/17/23 20:46 BP 105/59 01/17/23 20:00 Pulse Ox 94 01/17/23 20:46 O2 Del Method 01/17/23 20:46 O2 Flow Rate 2 01/16/23 21:25 01/17/23 01/17/23 01/18/23 14:59 22:59 06:59 Intake Total 436 / 436 400 / 836 Output Total 430 / 430 2150 / 2580 Balance / -1750 / -1744 Physical Exam Narrative: GENERAL: The patient is alert and oriented times three. Not in any acute distress. HEENT: No significant pallor, icterus or lymphadenopathy.Oral cavity: There are no mucous membrane lesions. NECK: Trachea appears to be central. No masses noted. No JVD or thyromegaly appreciated. RESPIRATORY: Chest is symmetrical. No intercostals muscle retraction or any accessory muscle activation. There is no chest wall tenderness. Breath sounds are heard bilaterally. No rales or rhonchi heard. No evidence of any consolidation. BREASTS: Deferred. HEART: The heart sounds are normal. No S3 or S4. Short systolic murmur in the lower sternal border. No pericardial rub ABDOMEN: No vessel pulsations or distention. No tenderness. No organomegaly appreciated. Bowel sounds are normally heard. : Deferred. RECTAL: Deferred. LYMPHATIC: No lymphadenopathy noted in the neck. EXTREMITIES: No edema or cyanosis. No clubbing. MUSCULOSKELETAL: No acute joint deformities or swelling SKIN: There are no significant rashes or ecchymosis NEUROPSYCHIATRIC: The patient is alert and oriented x3. Appears to be in a good mood. No tremors or rigidity noted. Urinary Catheter Management: Leger: Cath Placed During This Visit: yes Reason for Continuing Indwelling Catheter: Accurate Measurement of Urinary Output in Critically Ill Patients Urinary Catheter Date of Insertion: 01/10/23 Urinary Catheter Time of Insertion: 15:48 Data 01/17/23 02:27 01/17/23 02:27 Other Labs: Laboratory Last Values WBC 6.6 10^3/uL (4.0-10.0) 01/17/23 02:27 RBC 2.78 10^6/uL (4.1-5.3) L 01/17/23 02:27 Hgb 9.2 g/dL (11.5-15.3) L 01/17/23 02:27 Hct 29.5 % (37.0-47.0) L 01/17/23 02:27 MCV 106.1 fl (81-99) H 01/17/23 02:27 MCH 33.1 pg (28.0-34.0) 01/17/23 02:27 MCHC 31.2 g/dL (30.0-36.0) 01/17/23 02:27 RDW 16.0 % (12.1-15.1) H 01/17/23 02:27 Plt Count 148 10^3/cmm (130-400) 01/17/23 02:27 MPV 11.8 fL (7.4-10.4) H 01/17/23 02:27 Neut % (Auto) 60.9 % 01/17/23 02:27 Lymph % (Auto) 28.8 % 01/17/23 02:27 Kimble % (Auto) 7.7 % 01/17/23 02:27 Eos % (Auto) 1.5 % 01/17/23 02:27 Baso % (Auto) 0.6 % 01/17/23 02:27 Reticulocyte % (Auto) 4.9 % (0.5-2.0) H 01/16/23 03:09 Neut # (Auto) 4.05 10^3/uL (1.8-7.7) 01/17/23 02:27 Lymph # (Auto) 1.9 10^3/uL (0.8-4.8) 01/17/23 02:27 Kimble # (Auto) 0.5 10^3/uL (0.2-0.9) 01/17/23 02:27 Eos # (Auto) 0.1 10^3/uL (0.0-0.8) 01/17/23 02:27 Baso # (Auto) 0.0 10^3/uL (0.0-0.1) 01/17/23 02:27 Nucleated RBC % (auto) 0 % 01/17/23 02:27 Nucleated RBCs # 0.0 /100WBC 01/17/23 02:27 PT 16.10 SECONDS (12.1-14.9) H 01/10/23 12:00 INR 1.25 (0.8-1.2) H 01/10/23 12:00 Specimen Type Arterial 01/11/23 11:50 Specimen Type Arterial 01/11/23 11:50 Sample Site Not specified 01/11/23 11:50 Sample Site Not specified 01/11/23 11:50 ABG pH 7.51 (7.35-7.45) H 01/10/23 12:04 ABG pCO2 24.3 mmHg (35-45) L 01/10/23 12:04 ABG pO2 251.0 mmHg (80.0-100.0) H 01/10/23 12:04 ABG HCO3 19.5 mmol/L (22-26) L 01/10/23 12:04 ABG O2 Saturation 99.4 01/10/23 12:04 ABG Base Excess -2.2 mmol/L (-2.0-2.0) L 01/10/23 12:04 Michi Test N/a 01/11/23 11:50 Michi Test N/a 01/11/23 11:50 A-a O2 Gradient 5.7 mmHg (5-10) 01/11/23 11:50 A-a O2 Gradient 9.3 mmHg (5-10) 01/11/23 11:50 Hematocrit 33.0 % (37-47) L 01/11/23 11:50 Hematocrit 33.2 % (37-47) L 01/11/23 11:50 Hgb O2 Saturation 22.0 % (95-100) L 01/11/23 11:50 Hgb O2 Saturation 89.1 % (95-100) L 01/11/23 11:50 Carboxyhemoglobin 1.2 %THgb (0.4-20.1) 01/11/23 11:50 Carboxyhemoglobin 1.3 %THgb (0.4-20.1) 01/11/23 11:50 Methemoglobin 0.2 % (0.4-1.5) L 01/11/23 11:50 Methemoglobin 0.9 % (0.4-1.5) 01/11/23 11:50 Total Hemoglobin 10.8 g/dL (12-16) L 01/11/23 11:50 Total Hemoglobin 10.8 g/dL (12-16) L 01/11/23 11:50 Sodium 138.0 mmol/L (131-143) 01/10/23 12:04 Potassium 3.8 mmol/L (3.5-5.0) 01/10/23 12:04 Glucose 179.0 mg/dL (70-115) H 01/10/23 12:04 Ionized Calcium 1.1 mmol/L (1.1-1.4) 01/10/23 12:04 O2 Delivery Device Room air 01/11/23 11:50 O2 Delivery Device Room air 01/11/23 11:50 O2 Liters/Min 15.0 % 01/10/23 12:04 FiO2 21.0 % 01/11/23 11:50 Rn Transitional ID Ao 01/11/23 11:50 Rn Transitional ID Pa 01/11/23 11:50 Sodium 138 mmol/L (136-145) 01/17/23 02:27 Potassium 3.7 mmol/L (3.5-5.1) 01/17/23 02:27 Chloride 106 mmol/L (98-107) 01/17/23 02:27 Carbon Dioxide 21 mmol/L (22-29) L 01/17/23 02:27 Anion Gap 14.7 (5-19) 01/17/23 02:27 BUN 11 mg/dL (6-20) 01/17/23 02:27 Creatinine 1.0 mg/dL (0.5-0.9) H 01/17/23 02:27 GFR Calculation 58.0 mL/min (90-130) L 01/17/23 02:27 Glucose 78 mg/dL (65-115) 01/17/23 02:27 Calculated Osmolality 284 mOsm/kg (285-295) L 01/17/23 02:27 Lactate 2.3 mmol/L (0.5-2.2) H 01/11/23 14:00 Calcium 7.9 mg/dL (8.5-10.5) L 01/17/23 02:27 Magnesium 1.6 mg/dL (1.7-2.3) L 01/17/23 02:27 Total Bilirubin 0.4 mg/dL (0.15-1.2) 01/17/23 02:27 AST 41 U/L (0-32) H 01/17/23 02:27 ALT 52 U/L (0-33) H 01/17/23 02:27 Alkaline Phosphatase 75 U/L (35-105) 01/17/23 02:27 Troponin T Baseline 19 ng/L (0-10) H 01/10/23 12:00 Troponin T 120 Minute 26.81 ng/L (0-10) H 01/10/23 14:17 Delta Troponin T 7.81 ABS# (0-10) 01/10/23 14:17 Troponin T Hi Sens 6Hr 30.12 ng/L (0-10) H 01/10/23 18:16 Troponin T Hi Sens 6Hr Delta 11.12 ng/L (0-12) 01/10/23 18:16 NT-Pro-B Natriuret Pep 45625 pg/mL (0-125) H 01/10/23 12:00 Total Protein 5.2 g/dL (6.6-8.7) L 01/17/23 02:27 Albumin 2.9 g/dL (3.5-5.2) L 01/17/23 02:27 Globulin 2.3 g/dL (1.3-4.6) 01/17/23 02:27 Lipase 22 U/L (13-60) 01/10/23 12:00 Vitamin B12 1922 pg/mL (232-1245) H 01/16/23 03:09 Folate 10.4 ng/mL (4.8-37.3) 01/16/23 03:09 TSH 6.61 uIU/mL (0.27-4.20) H 01/16/23 03:09 Urine Color Yellow (Yellow) 01/11/23 20:03 Urine Appearance Clear (CLEAR) 01/11/23 20:03 Urine pH 5 (5-7) 01/11/23 20:03 Ur Specific [place] 1.015 (1.005-1.030) 01/11/23 20:03 Urine Protein 1+ (Negative) H 01/11/23 20:03 Urine Glucose (UA) Norm (Normal) 01/11/23 20: Urine Ketones Negative (Negative) 01/11/23 20: Urine Blood 2+ (Negative) H 01/11/23 20: Urine Nitrate Negative (Negative) 01/11/23 20: Urine Bilirubin 1+ (Negative) H 01/11/23 20: Urine Urobilinogen Norm mg/dL (Negative) 01/11/23 20: Ur Leukocyte Esterase Trace (Negative) H 01/11/23 20:03 Urine RBC 0-4 /hpf (0-2) H 01/11/23 20:03 Urine WBC 25-40 /hpf (0-5) H 01/11/23 20: Ur Squamous Epith Cells 0-4 /hpf (0-5) H 01/11/23 20: Amorphous Sediment 1+ /hpf 01/11/23 20:03 Urine Bacteria Trace /hpf (NONE) 01/11/23 20:03 A&P Assessment and plan (1) Acute on chronic systolic heart failure: Patient may be continued on the diuretic therapy. May be switched to p.o. Lasix in the morning. (2) Chest pain: Patient may have occasional chest pain. Has not had a recurrence since yesterday. (3) Encounter for testing following appropriate discharge of implantable cardioverter-defibrillator (ICD): Patient seems to be tolerating amiodarone so far well. She need to be on amiodarone 400 mg p.o. twice daily for a total of 10 days followed by 400 mg daily. (4) Nonischemic cardiomyopathy: Patient was restarted on a lower dose of carvedilol and Entresto. She seems to be tolerating the medication so far well. Continue on the current medications. Because of the relatively low blood pressure, may continue on the current dose of the medication. (5) GERRI (acute kidney injury): The BUN and creatinine seems to be stable. (6) Anemia: The H&H seems to be stable. Plan Disposition as per Dr. Mendoza If she continues to think remain stable, may be discharged home. Amiodarone does need to be tapered down as mentioned above Please make an appointment to be seen in the office next week by the nurse practitioner I will make the arrange for her to be seen by Dr. Basilio at the [facility] to consider CLIENT SERVICE CONSULTANT-D Attestations Medical Necessity Statement*: Deferred to the primary attending. Coding Level of Care Code 12893 Diagnoses Acute on chronic systolic heart failure I50.23 Chest pain R07.9 Encounter for testing following appropriate discharge of implantable cardioverter-defibrillator (ICD) Z45.02 Nonischemic cardiomyopathy I42.8 GERRI (acute kidney injury) N17.9 Anemia D64.9
--- NOTE | 2023-01-17 23:15 | PC.NURSE ---
Spoke with Dr Mancilla regarding Ultrasound results. Right PICC not to be used, start new peripheral IV in left arm. right arm precautions. Warm compresses for comfort. will not anticoagulate at this time due to history of gi bleed.
[2023-01-17] MEDS: metoclopramide 5 mg/mL SDV 2 mL IVP (23:18)
[2023-01-18] VITALS (9 sets, daily range): BP systolic 102–110; BP diastolic 53–68; PULSE 75–79; RESP 15–18; TEMP 36.8; O2SAT 90–99
[2023-01-18] MEDS: heparin drip 25,000 UNIT/500 ML PREMIX 22 UNIT IV (00:53)
[2023-01-18] MEDS: heparin 5,000 unit/mL INJ 1 mL IV (00:54)
[2023-01-18] MEDS: ipratropium-albuterol 3 mL Neb INHALATION ×2 (02:44→08:41)
[2023-01-18] MEDS: morphine 4 mg/mL SDV 1 mL 2 MG IVP ×2 (04:52→11:36)
[2023-01-18] MEDS: potassium chloride ER 20 mEq Tablet PO (06:28)
[2023-01-18] MEDS: aspirin 81 mg EC Tablet 162 MG PO (06:28)
[2023-01-18] MEDS: magnesium oxide 400 mg tablet 200 MG PO (06:28)
[2023-01-18] MEDS: montelukast sodium 10 mg Tablet PO (06:28)
[2023-01-18] MEDS: FUROsemide 10 mg/mL SDV 4mL 40 MG IVP (06:29)
[2023-01-18 07:49] LABS: Basophils # 0.1 10^3/uL (0.0-0.1); Basophils % 1.1 %; Eosinophils # 0.1 10^3/uL (0.0-0.8); Eosinophils % 1.9 %; Hematocrit 33.6 % (37.0-47.0); Hemoglobin 10.5 g/dL (11.5-15.3); Lymphocytes # 1.8 10^3/uL (0.8-4.8); Lymphocytes % 25.1 %; Mean Corpuscular HGB Conc 31.3 g/dL (30.0-36.0); Mean Corpuscular Volume 105.7 fl (81-99); Mean Platelet Volume 11.8 fL (7.4-10.4); Monocytes # 0.7 10^3/uL (0.2-0.9); Neutrophils # 4.37 10^3/uL (1.8-7.7); Neutrophils % 60.9 %; Nucleated Red Blood Cells % 0 %; Platelet Count 164 10^3/cmm (130-400); Red Blood Count 3.18 10^6/uL (4.1-5.3); Red Cell Distribution Width 16.2 % (12.1-15.1); White Blood Count 7.2 10^3/uL (4.0-10.0)
[2023-01-18 08:11] LABS: Alanine Aminotransferase 40 U/L (0-33); Albumin Level 3.1 g/dL (3.5-5.2); Alkaline Phosphatase 79 U/L (35-105); Aspartate Amino Transferase 26 U/L (0-32); Blood Urea Nitrogen 11 mg/dL (6-20); Calcium 8.3 mg/dL (8.5-10.5); Carbon Dioxide 24 mmol/L (22-29); Chloride 106 mmol/L (98-107); Globulin 2.6 g/dL (1.3-4.6); Glucose 86 mg/dL (65-115); Osmolality Calculated 289 mOsm/kg (285-295); Sodium 140 mmol/L (136-145); Total Bilirubin 0.4 mg/dL (0.15-1.2); Total Protein 5.7 g/dL (6.6-8.7)
[2023-01-18] MEDS: spironolactone 25 mg Tablet PO (08:25)
[2023-01-18] MEDS: HYDROcodone-acetaminophen 5-325 mg Tablet 1 TAB PO (08:25)
[2023-01-18] MEDS: carvedilol 3.125 mg Tablet PO (08:25)
[2023-01-18] MEDS: amiodarone 200 mg Tablet 400 MG PO (08:26)
[2023-01-18] MEDS: pantoprazole DR 40 mg Tablet PO (08:26)
[2023-01-18] MEDS: sacubitril/valsartan 24-26 mg Tablet 1 EACH PO (08:26)
[2023-01-18 08:27] LABS: Partial Thromboplastin Time 117.2 SECONDS (23.9-36.7)
--- NOTE | 2023-01-18 10:10 | PM.DCS ---
Discharge Providers Date of Admission: 01/10/23 17:34 Date of Discharge: January 18, 2023 Attending Provider at Admission: Beryl Dejesus MD Attending Provider at Discharge: Aj Mendoza MD Primary Care Provider: Mavis Peterson Diagnoses at Discharge Discharge Diagnosis (1) Acute on chronic systolic heart failure: Status: Acute (2) Chest pain: Status: Inactive (3) Encounter for testing following appropriate discharge of implantable cardioverter-defibrillator (ICD): Status: Acute (4) Nonischemic cardiomyopathy: Status: Acute (5) GERRI (acute kidney injury): Status: Acute (6) Anemia: Status: Acute Reason for Visit Reason for Visit: [id number] defib went off 5 times Hospital Course Hospital Course 53-year-old lady with known ischemic cardiomyopathy, admitted for chest pain and multiple firings from her ICD secondary to V-fib. Patient had cardiac cath with no concerning lesion,2D echo, which showed her ejection fraction has not dropped to 15 to 20%.Left ventricular wall was hypokinetic. Patient was started on amiodarone during the hospital stay with no reoccurrence of ICD firing thereafter, she is currently being discharged on p.o. amiodarone. She will continue to follow cardiology as outpatient.Cardiology intend to refer the patient as outpatient for HOME HEALTH PROVIDER-D placement to [facility]. During the hospital stay a VQ scan was also performed, which was low probability for pulmonary embolism. During the hospital stay patient was Also diagnosed with DVT:Ultrasound venous duplex right upper extremity showed:Partially obstructive thrombosis seen in the right subclavian vein and right axillary vein with a PICC line seen in place. Superficial venous thrombosis seen in portions of the basilic vein, cephalic vein and interosseous vein.She was started on therapeutic anticoagulation with heparin, and was later transitioned to p.o. Eliquis. Patient also underwent renal ultrasound during the hospital stay, as she was having low urine output renal ultrasound was unremarkable, urine output picked up robustly after giving Lasix. Patient has a left nephrostomy tube in place, for which she is following at [place], she has a recent appointment for the same.Overall patient responded well to above medical management and she is being discharged in stable condition to home, she will continue to follow cardiology as outpatient. Physical Exam Const: COMMON NORMALS: patient oriented x3 HENMT: COMMON NORMALS: normocephalic and atraumatic HEAD & SCALP: normocephalic and atraumatic Resp: OTHER: AEBE, B/L Clear Cardio: COMMON NORMALS: regular rate, regular rhythm, S1 normal heart sound present, S2 normal heart sound present, No gallops present (Cardio), No murmurs present (Cardio), No rub (Cardio) and Peripheral pulses 2+ throughout RATE: regular rate RHYTHM: regular rhythm HEART SOUNDS: S1 normal heart sound present and S2 normal heart sound present PERIPHERAL PULSES: Peripheral pulses 2+ throughout GI: COMMON NORMALS: Normal to inspection, nondistended, normoactive bowel sounds present, Soft to palpation, non-tender, No hepatosplenomegaly present and no masses AUSCULTATION: Yes normoactive bowel sounds PALPATION: Yes Soft to palpation and Yes No hepatosplenomegaly present RECTAL EXAM: deferred Extremity: COMMON NORMALS: no clubbing, cyanosis or edema and no pedal edema Neuro: COMMON NORMALS: patient oriented x3 Urinary Catheter Management: Leger: Cath Placed During This Visit: yes Reason for Continuing Indwelling Catheter: Accurate Measurement of Urinary Output in Critically Ill Patients Urinary Catheter Date of Insertion: 01/10/23 Urinary Catheter Time of Insertion: 15:48 Discharge Data Studies Completed and Pending Completed Studies During Hospitalization Category Date Time Status CXRP [XR chest 1V portable [id number]] Routine Exams 01/12/23 13:23 Completed XR chest 1V portable [id number] Stat Exams 01/16/23 12:53 Completed NM pul vent and perfus* [id number] Routine Nuc Med 01/13/23 16:57 [place] [id number] Stat Ultrasound 01/17/23 21:55 Completed CV. echo limited 42812 Routine Ultrasound 01/11/23 06:38 Completed US renal BI* [id number] Routine Ultrasound 01/15/23 15:26 Completed Pending at discharge Category Date Time Status SEISMIC PROSPECTING OBSERVER request for service Routine Exams 01/11/23 11:21 Taken CBC Auto Diff [Complete Blood Count w/Auto] AM LABS Lab 01/19/23 04:00 Ordered CMP [Comprehensive Metabolic Panel] AM LABS Lab 01/19/23 04:00 Ordered PTT [Partial Thromboplastin Time] Stat Lab 01/18/23 12:00 Ordered Radiology Impressions Pulmonary Perfusion Imaging 01/13/23 16:57 IMPRESSION: Low probability pulmonary embolism. Renal Ultrasound 01/15/23 15:26 IMPRESSION: 1. Negative for hydronephrosis or renal calculus. 2. Small amount of free fluid in the pelvis. 3. Leger catheter in the urinary bladder. Chest X-Ray 01/16/23 12:53 IMPRESSION: Suspect early CHF with small right effusion. Venous Duplex 01/17/23 21:55 IMPRESSION: Partially obstructive thrombosis seen in the right subclavian vein and right axillary vein with a PICC line seen in place. Superficial venous thrombosis seen in portions of the basilic vein, cephalic vein and interosseous vein. ADDENDUM: 01/17/23 0559 THIS REPORT CONTAINS FINDINGS THAT MAY BE CRITICAL TO PATIENT CARE. The findings were verbally communicated via telephone conference with Natacha Mancilla at 11:49 PM ADAMT on 01/17/2023. The findings were acknowledged and understood. Laboratory Results WBC 7.2 10^3/uL (4.0-10.0) 01/18/23 07:29 RBC 3.18 10^6/uL (4.1-5.3) L 01/18/23 07:29 Hgb 10.5 g/dL (11.5-15.3) L 01/18/23 07:29 Hct 33.6 % (37.0-47.0) L 01/18/23 07:29 MCV 105.7 fl (81-99) H 01/18/23 07:29 MCH 33.0 pg (28.0-34.0) 01/18/23 07: MCHC 31.3 g/dL (30.0-36.0) 01/18/23 07:29 RDW 16.2 % (12.1-15.1) H 01/18/23 07:29 Plt Count 164 10^3/cmm (130-400) 01/18/23 07:29 MPV 11.8 fL (7.4-10.4) H 01/18/23 07:29 Neut % (Auto) 60.9 % 01/18/23 07:29 Lymph % (Auto) 25.1 % 01/18/23 07:29 [place] % (Auto) 10.0 % 01/18/23 07: Eos % (Auto) 1.9 % 01/18/23 07:29 Baso % (Auto) 1.1 % 01/18/23 07: Reticulocyte % (Auto) 4.9 % (0.5-2.0) H 01/16/23 03:09 Neut # (Auto) 4.37 10^3/uL (1.8-7.7) 01/18/23 07:29 Lymph # (Auto) 1.8 10^3/uL (0.8-4.8) 01/18/23 07: [place] # (Auto) 0.7 10^3/uL (0.2-0.9) 01/18/23 07: Eos # (Auto) 0.1 10^3/uL (0.0-0.8) 01/18/23 07: Baso # (Auto) 0.1 10^3/uL (0.0-0.1) 01/18/23 07: Nucleated RBC % (auto) 0 % 01/18/23 07: Nucleated RBCs # 0.0 /100WBC 01/18/23 07: PT 16.10 SECONDS (12.1-14.9) H 01/10/23 12:00 INR 1.25 (0.8-1.2) H 01/10/23 12:00 APTT 117.2 SECONDS (23.9-36.7) H 01/18/23 07:29 Specimen Type Arterial 01/11/23 11:50 Specimen Type Arterial 01/11/23 11:50 Sample Site Not specified 01/11/23 11:50 Sample Site Not specified 01/11/23 11:50 ABG pH 7.51 (7.35-7.45) H 01/10/23 12:04 ABG pCO2 24.3 mmHg (35-45) L 01/10/23 12:04 ABG pO2 251.0 mmHg (80.0-100.0) H 01/10/23 12:04 ABG HCO3 19.5 mmol/L (22-26) L 01/10/23 12:04 ABG O2 Saturation 99.4 01/10/23 12:04 ABG Base Excess -2.2 mmol/L (-2.0-2.0) L 01/10/23 12:04 Michi Test N/a 01/11/23 11:50 Michi Test N/a 01/11/23 11:50 A-a O2 Gradient 5.7 mmHg (5-10) 01/11/23 11:50 A-a O2 Gradient 9.3 mmHg (5-10) 01/11/23 11:50 Hematocrit 33.0 % (37-47) L 01/11/23 11:50 Hematocrit 33.2 % (37-47) L 01/11/23 11:50 Hgb O2 Saturation 22.0 % (95-100) L 01/11/23 11:50 Hgb O2 Saturation 89.1 % (95-100) L 01/11/23 11:50 Carboxyhemoglobin 1.2 %THgb (0.4-20.1) 01/11/23 11:50 Carboxyhemoglobin 1.3 %THgb (0.4-20.1) 01/11/23 11:50 Methemoglobin 0.2 % (0.4-1.5) L 01/11/23 11:50 Methemoglobin 0.9 % (0.4-1.5) 01/11/23 11:50 Total Hemoglobin 10.8 g/dL (12-16) L 01/11/23 11:50 Total Hemoglobin 10.8 g/dL (12-16) L 01/11/23 11:50 Sodium 138.0 mmol/L (131-143) 01/10/23 12:04 Potassium 3.8 mmol/L (3.5-5.0) 01/10/23 12:04 Glucose 179.0 mg/dL (70-115) H 01/10/23 12:04 Ionized Calcium 1.1 mmol/L (1.1-1.4) 01/10/23 12:04 O2 Delivery Device Room air 01/11/23 11:50 O2 Delivery Device Room air 01/11/23 11:50 O2 Liters/Min 15.0 % 01/10/23 12:04 FiO2 21.0 % 01/11/23 11:50 Mechanical Ordnance Assembler ID Ao 01/11/23 11:50 Mechanical Ordnance Assembler ID Pa 01/11/23 11:50 Sodium 140 mmol/L (136-145) 01/18/23 07:29 Potassium 4.0 mmol/L (3.5-5.1) 01/18/23 07:29 Chloride 106 mmol/L (98-107) 01/18/23 07:29 Carbon Dioxide 24 mmol/L (22-29) 01/18/23 07:29 Anion Gap 14.0 (5-19) 01/18/23 07:29 BUN 11 mg/dL (6-20) 01/18/23 07:29 Creatinine 1.1 mg/dL (0.5-0.9) H 01/18/23 07:29 GFR Calculation 52.0 mL/min (90-130) L 01/18/23 07:29 Glucose 86 mg/dL (65-115) 01/18/23 07:29 Calculated Osmolality 289 mOsm/kg (285-295) 01/18/23 07:29 Lactate 2.3 mmol/L (0.5-2.2) H 01/11/23 14:00 Calcium 8.3 mg/dL (8.5-10.5) L 01/18/23 07:29 Magnesium 1.6 mg/dL (1.7-2.3) L 01/17/23 02:27 Total Bilirubin 0.4 mg/dL (0.15-1.2) 01/18/23 07:29 AST 26 U/L (0-32) 01/18/23 07:29 ALT 40 U/L (0-33) H 01/18/23 07:29 Alkaline Phosphatase 79 U/L (35-105) 01/18/23 07:29 Troponin T Baseline 19 ng/L (0-10) H 01/10/23 12:00 Troponin T 120 Minute 26.81 ng/L (0-10) H 01/10/23 14:17 Delta Troponin T 7.81 ABS# (0-10) 01/10/23 14:17 Troponin T Hi Sens 6Hr 30.12 ng/L (0-10) H 01/10/23 18:16 Troponin T Hi Sens 6Hr Delta 11.12 ng/L (0-12) 01/10/23 18:16 NT-Pro-B Natriuret Pep 92422 pg/mL (0-125) H 01/10/23 12:00 Total Protein 5.7 g/dL (6.6-8.7) L 01/18/23 07:29 Albumin 3.1 g/dL (3.5-5.2) L 01/18/23 07:29 Globulin 2.6 g/dL (1.3-4.6) 01/18/23 07:29 Lipase 22 U/L (13-60) 01/10/23 12:00 Vitamin B12 1922 pg/mL (232-1245) H 01/16/23 03:09 Folate 10.4 ng/mL (4.8-37.3) 01/16/23 03:09 TSH 6.61 uIU/mL (0.27-4.20) H 01/16/23 03:09 Urine Color Yellow (Yellow) 01/11/23 20:03 Urine Appearance Clear (CLEAR) 01/11/23 20:03 Urine pH 5 (5-7) 01/11/23 20:03 Ur Specific [place] 1.015 (1.005-1.030) 01/11/23 20:03 Urine Protein 1+ (Negative) H 01/11/23 20:03 Urine Glucose (UA) Norm (Normal) 01/11/23 20:03 Urine Ketones Negative (Negative) 01/11/23 20:03 Urine Blood 2+ (Negative) H 01/11/23 20:03 Urine Nitrate Negative (Negative) 01/11/23 20:03 Urine Bilirubin 1+ (Negative) H 01/11/23 20:03 Urine Urobilinogen Norm mg/dL (Negative) 01/11/23 20:03 Ur Leukocyte Esterase Trace (Negative) H 01/11/23 20:03 Urine RBC 0-4 /hpf (0-2) H 01/11/23 20:03 Urine WBC 25-40 /hpf (0-5) H 01/11/23 20:03 Ur Squamous Epith Cells 0-4 /hpf (0-5) H 01/11/23 20:03 Amorphous Sediment 1+ /hpf 01/11/23 20:03 Urine Bacteria Trace /hpf (NONE) 01/11/23 20:03 Vitals Last Vital Signs Temp 98.2 F 01/18/23 00:00 Pulse 77 01/18/23 08:00 Resp 15 01/18/23 08:00 BP 102/53 01/18/23 08:00 Pulse Ox 90 01/18/23 08:00 O2 Del Method Room Air 01/18/23 08:00 O2 Flow Rate 2 01/16/23 21:25 Discharge Plan Discharge Patient Disposition: Home Health Service Condition: Stable Prescriptions: New Eliquis 5 mg tablet 5 mg PO BID Qty: 90 1RF Rx Instructions: take 10 mg po bid for next 7 days and thereafter 5 mg po BID. amiodarone 400 mg tablet 400 mg PO BID 5 Days Qty: 10 0RF Rx Instructions: FORM 12 TO 16 amiodarone 400 mg tablet 400 mg PO DAILY 30 Days Qty: 30 3RF Rx Instructions: START FROM 01/23 Continued citalopram [Celexa] 40 mg tablet 40 mg PO QPM zolpidem 10 mg tablet 10 mg PO BEDTIME aspirin [Adult Low Dose Aspirin] 81 mg tablet,delayed release (DR/EC) 162 mg PO QAM Hold Instructions: Resume on 10/19/22. Until after percutaneous tube placed in the left kidney carvedilol 6.25 mg tablet 6.25 mg PO BID Qty: 180 2RF Hold Instructions: Resume on 01/12/23. Rx Instructions: must administer with a meal/food Vitamin B-12 50 mcg Tablet 50 mcg PO QAM montelukast 10 mg tablet 10 mg PO QAM furosemide [Lasix] 40 mg tablet 40 mg PO QAM potassium chloride 10 mEq tablet extended release 20 meq PO QAM Rx Instructions: Only take with Lasix spironolactone 25 mg tablet 25 mg PO QAM magnesium 200 mg tablet 200 mg PO QAM Miralax 17 gram/dose powder 17 g PO DAILY Entresto 97-103 mg Tablet 1 tab PO BID acetaminophen 500 mg Tablet 1,000 mg PO Q6H PRN (Reason: Pain) omeprazole 20 mg capsule,delayed release(DR/EC) 20 mg PO BID nitroglycerin [Nitrostat] 0.4 mg Tablet, Sublingual 0.4 mg SUBLINGUAL Q5M PRN (Reason: Chest Pain) Rx Instructions: do not exceed 3 doses per episode albuterol sulfate 90 mcg/actuation HFA aerosol inhaler 2 puff INHALATION QID PRN (Reason: Shortness Of Breath) midodrine 5 mg Tablet 5 mg PO BID PRN (Reason: Sbp less than 100) Qty: 20 0RF ondansetron 4 mg tablet,disintegrating 4 mg PO Q6H PRN (Reason: nausea and vomiting) Qty: 14 0RF Discontinued sodium bicarbonate 650 mg Tablet 650 mg PO TID Qty: 30 0RF Discharge Orders: Discharge Order (Routine); Ordered 01/18/23 Ordered By: Aj Mendoza Referrals: [facility] ([facility]) [Outside] Desire Callahan FNP [Nurse Practitioner] - 1 week Mavis Peterson PA [Primary Care Provider] - Patient Instructions: Heart Failure (DC), CHF Stoplight, Opioid Safety Discharge Attestations Time Spent in Discharge Care*: less than 30 min Status at Discharge: Cognitive status at discharge: cognitively intact, Behavioral status at discharge: cooperative, Quality Metrics Clinical Quality Measures [ No reported AMI, CVA or VTE this stay] Coding Level of Care Code Acute Code for Chg Fwd Diagnoses Acute on chronic systolic heart failure I50.23 Chest pain R07.9 Encounter for testing following appropriate discharge of implantable cardioverter-defibrillator (ICD) Z45.02 Nonischemic cardiomyopathy I42.8 GERRI (acute kidney injury) N17.9 Anemia D64.9
[2023-01-18 11:59] LABS: Partial Thromboplastin Time 34.9 SECONDS (23.9-36.7)
[2023-01-18] MEDS: apixaban 5 mg Tablet 10 MG PO (12:52)
--- NOTE | 2023-01-18 14:30 | PC.NURSE ---
received order to remove picc line from dr nunez.picc line removed using aseptic technique at 1400.catheter intact.pressure held x 5 min and drsg applied.pt tolerated procedure well.
--- NOTE | 2023-01-18 14:48 | PC.NURSE ---
discharge instructions given and explained.pt verb understanding of instructions.discharged via w/c to exit at 1430.friend to drive pt home.
== END 2023-01-18 14:30 | disposition home health service (06) | DRG 286 ==
LOC: ER 14:24 → ICU 14:48 → CSU 01-15 15:53
PROVIDERS: Family Medicine; Internal Medicine; Internal Medicine Cardiovascular Disease; Admitting Provider Student in an Organized Health Care Education/Training Program; Emergency Provider Emergency Medicine; PCP Physician Assistant; Visit Provider Internal Medicine
PROC: 4A023N8 Measurement of Cardiac Sampling and Pressure, Bilateral, Percutaneous Approach (ICD-10-PCS; principal; 2023-01-11 11:00)
DX: I49.01 Ventricular fibrillation (principal); R57.0 Cardiogenic shock; I13.0 Hypertensive heart and chronic kidney disease with heart failure and stage 1 through stage 4 chronic kidney disease, or unspecified chronic kidney disease; I50.22 Chronic systolic (congestive) heart failure; I82.621 Acute embolism and thrombosis of deep veins of right upper extremity; N17.9 Acute kidney failure, unspecified; N18.9 Chronic kidney disease, unspecified; I42.8 Other cardiomyopathies; Z95.810 Presence of automatic (implantable) cardiac defibrillator; Z93.6 Other artificial openings of urinary tract status; Z79.82 Long term (current) use of aspirin; Z79.51 Long term (current) use of inhaled steroids; Z87.440 Personal history of urinary (tract) infections; F41.9 Anxiety disorder, unspecified; D63.1 Anemia in chronic kidney disease; Z96.0 Presence of urogenital implants; F17.210 Nicotine dependence, cigarettes, uncomplicated; R16.0 Hepatomegaly, not elsewhere classified; E83.42 Hypomagnesemia; E87.6 Hypokalemia; Z86.73 Personal history of transient ischemic attack (TIA), and cerebral infarction without residual deficits
CPT/HCPCS: 36415; 36569; 36592; 36600; 51702; 71045; 76770; 78014; 80051; 80053; 81001; 82330; 82607; 82746; 82805; 82810; 83605; 83690; 83735; 83880; 84443; 84484; 85025; 85045; 85610; 85730; 87086; 93005; 93308; 93460; 93971; 94640; 96372; 96374; 96375; 96376; 97116; 97161; 97166; 97530; 97535; 99152; 99153; 99284; 99285; 99291; A9540; A9567; C1751; C1760; C1769; C1887; C1894; G0269; J0282; J1250; J1644; J1650; J1940; J2250; J2270; J2405; J2765; J3010; J7030; J7060; Q9967

== ENCOUNTER 2023-01-19 08:11 | Emergency (ER) | payer MEDICARE, MEDICAID, SELFPAY ==
[2023-01-19 08:19] VITALS: BMI 26.6
[2023-01-19 08:22] VITALS: PULSE 85; O2SAT 97
--- NOTE | 2023-01-19 08:23 | ED_ITS ---
HPI - SOB/Dyspnea General: Chief Complaint: Shortness of Breath/Dyspnea Stated Complaint: chest pain Time Seen by Provider: 01/19/23 08:19 Source: patient Mode of arrival: ambulatory History of Present Illness: HPI Narrative: 53-year-old female presents emergency room with complaint of chest pain. She h as a clot in the right arm from a PICC line she has been on anticoagulation she was discharged from the hospital yesterday she was initially started on heparin and then converted to Eliquis she is complaining of shortness of breath is related to pain when she takes a deep breath he has pain in the right upper chest wall is reproducible with palpation no vomiting or no diarrhea she has a history of ischemic cardiomyopathy was discharged home on amiodarone was admitted most recently for V-fib. Not had any more arrhythmias recently. MD elicited complaint: shortness of breath and chest pain Pertinent past history: congestive heart failure Onset (ago): hour(s) Timing: constant Severity: moderate Exacerbating factors: movement, coughing, inspiration and other (Palpation) Known history of: congestive heart failure Associated symptoms: Reports chest pain; Deny abdominal pain, chest congestion, cough, diaphoresis, dizziness, extremity pain, fever(s), hemoptysis, lightheadedness, myalgias, nausea, orthopnea, palpitations, paresthesias, polydipsia, polyuria, rash, sense of impending doom, syncope or vomiting Treatment prior to arrival: none Review of Systems Const: Reports: fatigue and malaise; Denies: fever(s), chills or diaphoresis ENMT: Denies: throat pain, ear or mastoid pain, nasal discharge or nasal congestion Card: Reports: chest pain; Denies: palpitations, lightheadedness, syncope or orthopnea Resp: Denies: dyspnea, non-productive cough, wheezing, hemoptysis or chest congestion GI: Denies: abdominal pain, nausea or vomiting : Denies: flank pain, difficulty voiding, dysuria, urinary frequency or urinary urgency Musc: Denies: extremity pain Skin/Breast: Denies: rash or pruritus Neuro: Denies: dizziness Endo: Denies: polyuria or polydipsia PFSH ED PFSH: Medical History Acute hypokalemia Acute on chronic systolic heart failure AICD discharge GERRI (acute kidney injury) Anemia Cardiogenic shock Chest pain Chest pain CHF (congestive heart failure) Chronic systolic (congestive) heart failure CKD (chronic kidney disease) Closed intertrochanteric fracture of left hip Defibrillator discharge Encounter for testing following appropriate discharge of implantable cardioverter-defibrillator (ICD) History of recurrent UTIs History of TIA (transient ischemic attack) HTN (hypertension) Hydronephrosis, left Hypertension Hypokalemia Hypokalemia ICD (implantable cardioverter-defibrillator) in place Idiopathic ventricular fibrillation Liver mass Macrocytic anemia Mass of right lobe of liver ~3.5 x 4 cm, indeterminant, hypodense, first noted 11/2021 Nicotine dependence, cigarettes, uncomplicated Non-ischemic cardiomyopathy Nonischemic cardiomyopathy Obstructive pyelonephritis (~11/2021) Oliguria Renal atrophy, left Syncope Urolithiasis Multi stone former. Complicated by at least 1 episode of obstructive pyelonephritis. Multiple procedures required to treat Ventricular tachycardia Weakness Surgical History Nephrostomy status S/P ureteral stent placement (~11/2021) Status post cholecystectomy Status post placement of cardiac pacemaker Family History Father , AT AGE 77 CAD (coronary artery disease) Cancer lung cancer Mother , AT AGE 60 Cancer OVARIAN Denies family history of Clotting disorder Anesthesia complication Bleeding disorder Social History Smoking and tobacco status: current every day smoker cigarettes Packs smoked per day: 0.5 Years cigarettes smoked: 45 Second hand smoke exposure: Yes Alcohol intake: current Lives independently: Yes Marital status: service: No Current occupational status: disabled Current gender identity: Female Physical Exam Const: COMMON NORMALS: no acute distress GENERAL APPEARANCE: cooperative and comfortable ORIENTATION/CONSCIOUSNESS: Yes awake, Yes oriented to person, Yes oriented to place and Yes oriented to time HENMT: COMMON NORMALS: normocephalic, atraumatic and hearing grossly normal bilaterally HEAD & SCALP: normocephalic and atraumatic Resp: COMMON NORMALS: normal respiratory effort, No retractions, No use of accessory muscles and clear to auscultation bilaterally AUSCULTATION: clear to auscultation bilaterally Cardio: COMMON NORMALS: regular rate, regular rhythm and No murmurs present (Cardio) RATE: regular rate RHYTHM: regular rhythm GI: COMMON NORMALS: Soft to palpation and No hepatosplenomegaly present AUSCULTATION: Yes normoactive bowel sounds PALPATION: Yes Soft to palpation, No Tenderness to palpation present (GI), No Guarding due to palpation present (GI) and Yes No hepatosplenomegaly present Extremity: COMMON NORMALS: normal to inspection, capillary refill normal, no clubbing, cyanosis or edema, no calf tenderness and no pedal edema Neuro: SENSORIUM/ORIENTATION: Yes oriented to person, Yes oriented to place and Yes oriented to time Skin: COMMON NORMALS: no rashes or lesions noted GENERAL SKIN EXAM: no rashes or lesions noted Course Vital Signs: Vital signs: Vital Signs Pulse Rate 78 01/19/23 10:30 Blood Pressure 124/90 01/19/23 09:30 Pulse Oximetry 98 01/19/23 10:30 MDM - SOB/Dyspnea Medical Decision Making Patient stable at this time no difficulty breathing. He exam is normal at her baseline. She not particularly tachycardic or hypotensive or hypoxic at this time no evidence of pulmonary embolism. She is mildly anemic which is chronic. She is not having any further chest pain she does not report any discharges from her AICD. At this point think we can discharge patient home she is already being treated with the Eliquis. Did not do CTA of her chest because she does not have any symptoms at this time she has had issues with kidneys in the past some concern that that could cause contrast-induced kidney injury which would exacerbate her other underlying issues. She does have known significant ischemic cardiomyopathy however she has no signs of being clinically decompensated at this time. Medical Records I reviewed the patient's medical records. Lab Data I reviewed the patient's lab results. 01/19/23 09:22 01/19/23 09:22 Labs/Radiology: Radiology Impressions Chest X-Ray 01/19/23 09:12 IMPRESSION: Clearing of earlier pulmonary changes of CHF Left base obscured from view by the ICD. Indeterminate size of a small right pleural effusion Laboratory Results WBC 7.1 10^3/uL (4.0-10.0) 01/19/23 09:22 RBC 3.35 10^6/uL (4.1-5.3) L 01/19/23 09:22 Hgb 10.9 g/dL (11.5-15.3) L 01/19/23 09: Hct 35.8 % (37.0-47.0) L 01/19/23 09: MCV 106.9 fl (81-99) H 01/19/23 09:22 MCH 32.5 pg (28.0-34.0) 01/19/23 09: MCHC 30.4 g/dL (30.0-36.0) 01/19/23 09: RDW 16.0 % (12.1-15.1) H 01/19/23 09:22 Plt Count 240 10^3/cmm (130-400) D 01/19/23 09: MPV 11.2 fL (7.4-10.4) H 01/19/23 09:22 Neut % (Auto) 68.9 % 01/19/23 09:22 Lymph % (Auto) 19.6 % 01/19/23 09: [place] % (Auto) 8.3 % 01/19/23 09:22 Eos % (Auto) 1.3 % 01/19/23 09:22 Baso % (Auto) 1.3 % 01/19/23 09:22 Neut # (Auto) 4.89 10^3/uL (1.8-7.7) 01/19/23 09: Lymph # (Auto) 1.4 10^3/uL (0.8-4.8) 01/19/23 09:22 [place] # (Auto) 0.6 10^3/uL (0.2-0.9) 01/19/23 09: Eos # (Auto) 0.1 10^3/uL (0.0-0.8) 01/19/23 09: Baso # (Auto) 0.1 10^3/uL (0.0-0.1) 01/19/23 09: Nucleated RBC % (auto) 0 % 01/19/23 09: Nucleated RBCs # 0.0 /100WBC 01/19/23 09:22 Sodium 139 mmol/L (136-145) 01/19/23 09:22 Potassium 4.1 mmol/L (3.5-5.1) 01/19/23 09:22 Chloride 101 mmol/L (98-107) 01/19/23 09:22 Carbon Dioxide 25 mmol/L (22-29) 01/19/23 09:22 Anion Gap 17.1 (5-19) 01/19/23 09:22 BUN 14 mg/dL (6-20) 01/19/23 09:22 Creatinine 1.0 mg/dL (0.5-0.9) H 01/19/23 09:22 GFR Calculation 58.0 mL/min (90-130) L 01/19/23 09:22 Glucose 85 mg/dL (65-115) 01/19/23 09:22 Calculated Osmolality 288 mOsm/kg (285-295) 01/19/23 09:22 Calcium 8.6 mg/dL (8.5-10.5) 01/19/23 09:22 Troponin T Baseline 10 ng/L (0-10) 01/19/23 09:22 Discharge Plan Discharge Patient Disposition: Home Clinical Impression: Chest wall pain, Chronic thrombosis of right upper extremity Condition: Stable Prescriptions: No Action citalopram [Celexa] 40 mg tablet 40 mg PO QPM zolpidem 10 mg tablet 10 mg PO BEDTIME aspirin [Adult Low Dose Aspirin] 81 mg tablet,delayed release (DR/EC) 162 mg PO QAM Hold Instructions: Resume on 10/19/22. Until after percutaneous tube placed in the left kidney carvedilol 6.25 mg tablet 6.25 mg PO BID Qty: 180 2RF Hold Instructions: Resume on 01/12/23. Rx Instructions: must administer with a meal/food Vitamin B-12 50 mcg Tablet 50 mcg PO QAM montelukast 10 mg tablet 10 mg PO QAM furosemide [Lasix] 40 mg tablet 40 mg PO QAM potassium chloride 10 mEq tablet extended release 20 meq PO QAM Rx Instructions: Only take with Lasix spironolactone 25 mg tablet 25 mg PO QAM magnesium 200 mg tablet 200 mg PO QAM polyethylene glycol 3350 [Miralax] 17 gram/dose powder 17 g PO DAILY Entresto 97-103 mg Tablet 1 tab PO BID amiodarone 400 mg tablet 400 mg PO BID 5 Days Qty: 10 0RF Rx Instructions: FROM 4-12 TO 4-16 (STARTED 01/20/23) amiodarone 400 mg tablet 400 mg PO DAILY 30 Days Qty: 30 3RF Rx Instructions: START FROM 01/23 (not started as of 01/20/23 HAS TO FINISHED BID DOSE) hydrocodone-acetaminophen 5-325 mg tablet 1 tab PO Q8H PRN (Reason: pain) Qty: 7 0RF ondansetron 4 mg tablet,disintegrating 4 mg PO Q6H PRN (Reason: nausea and vomiting) Qty: 14 0RF acetaminophen 500 mg Tablet 1,000 mg PO Q6H PRN (Reason: Pain) omeprazole 20 mg capsule,delayed release(DR/EC) 20 mg PO BID nitroglycerin [Nitrostat] 0.4 mg Tablet, Sublingual 0.4 mg SUBLINGUAL Q5M PRN (Reason: Chest Pain) Rx Instructions: do not exceed 3 doses per episode albuterol sulfate 90 mcg/actuation HFA aerosol inhaler 2 puff INHALATION QID PRN (Reason: Shortness Of Breath) midodrine 5 mg Tablet 5 mg PO BID PRN (Reason: Sbp less than 100) Qty: 20 0RF Eliquis 5 mg tablet See Rx Instructions .ROUTE .COMPLEX Rx Instructions: take 10 mg po bid for next 7 days and thereafter 5 mg po BID. (STARTED 01/20/23 PER PT) levofloxacin 500 mg tablet 500 mg PO DAILY 7 Days Qty: 7 0RF Discharge Orders: Discharge ED (Routine); Ordered 01/19/23 Ordered By: Abiodun Stone Referrals: Mavis Peterson PA [Primary Care Provider] - Discharge Diet: Usual diet Discharge Activity: Limit activity as instructed Patient Instructions: Opioid Safety, Pain Management Activity Restrictions/Additional Instructions: You were seen today for chest pain. The pain is musculoskeletal in nature reproducible with deep inspiration and palpation on the chest wall. Continue to take your anticoagulants. Your heart rate and your oxygen saturations were normal. Follow-up with your doctor as previously scheduled. Coding Level of Care Code ED Ob Gyn Physician Assistant for Wesley Herrera
[2023-01-19 08:30] VITALS: BP 117/87; PULSE 84; O2SAT 98
--- NOTE | 2023-01-19 08:38 | ECG_ITS ---
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 Measurements Intervals [place] Rate: 81 P: 35 HI: 153 QRS: -42 QRSD: 141 T: 113 QT: 452 QTc: 527 Interpretive Statements SINUS RHYTHM LEFT AXIS DEVIATION [QRS AXIS < -30] LEFT BUNDLE BRANCH BLOCK [120+ ms QRS DURATION, 80+ ms Q/S IN V1/V2, 85+ ms R IN I/aVL/V5/V6] Compared to ECG 01/16/2023 15:25:41 Left-axis deviation now present Left bundle-branch block now present Intraventricular conduction delay no longer present Myocardial infarct finding no longer present Electronically Signed On 01-19-2023 21:04:30 CDT by Michael Hill M.D. [id number]
[2023-01-19 09:00] VITALS: BP 124/90; PULSE 89; O2SAT 100
--- NOTE | 2023-01-19 09:12 | XR_ITS ---
WS: [id number] EXAMINATION: XR chest 1V portable [id number] REASON FOR EXAM: dyspnea/cough COMPARISON: 01/16/2023 ORDER DATE: 01/19/2023 9:28 AM TECHNIQUE: A single, portable frontal chest x-ray was obtained. The PICC line is been removed. ICD is noted with the battery superimposing the left lung base. Signif icant reduction in the groundglass airspace opacities in the right lung base diaphragm outline partia lly obscured in part due to possible small effusion. XR/XR chest 1V portable [id number] IMPRESSION: Clearing of earlier pulmonary changes of CHF Left base obscured from view by the ICD. Indeterminate size of a small right pleural effusion
[2023-01-19] MEDS: ondansetron 2 mg/ML SDV 2 mL 4 MG IM (09:20)
[2023-01-19] MEDS: morphine 4 mg/mL SDV 1 mL IM (09:20)
[2023-01-19 09:27] LABS: Basophils # 0.1 10^3/uL (0.0-0.1); Basophils % 1.3 %; Eosinophils # 0.1 10^3/uL (0.0-0.8); Eosinophils % 1.3 %; Hematocrit 35.8 % (37.0-47.0); Hemoglobin 10.9 g/dL (11.5-15.3); Lymphocytes # 1.4 10^3/uL (0.8-4.8); Lymphocytes % 19.6 %; Mean Corpuscular HGB Conc 30.4 g/dL (30.0-36.0); Mean Corpuscular Hemoglobin 32.5 pg (28.0-34.0); Mean Corpuscular Volume 106.9 fl (81-99); Mean Platelet Volume 11.2 fL (7.4-10.4); Monocytes # 0.6 10^3/uL (0.2-0.9); Monocytes % 8.3 %; Neutrophils # 4.89 10^3/uL (1.8-7.7); Neutrophils % 68.9 %; Nucleated Red Blood Cells % 0 %; Platelet Count 240 10^3/cmm (130-400); Red Blood Count 3.35 10^6/uL (4.1-5.3); White Blood Count 7.1 10^3/uL (4.0-10.0)
[2023-01-19 09:30] VITALS: BP 124/90; PULSE 89; O2SAT 98
[2023-01-19 09:45] LABS: Anion Gap 17.1 (5-19); Blood Urea Nitrogen 14 mg/dL (6-20); Calcium 8.6 mg/dL (8.5-10.5); Carbon Dioxide 25 mmol/L (22-29); Chloride 101 mmol/L (98-107); Glucose 85 mg/dL (65-115); Osmolality Calculated 288 mOsm/kg (285-295); Potassium 4.1 mmol/L (3.5-5.1); Sodium 139 mmol/L (136-145)
[2023-01-19 10:00] VITALS: PULSE 80; O2SAT 95
--- NOTE | 2023-01-19 10:04 | PC.PHAR ---
pt and pts family verified pts medications-states the pt hasnt started taking the amiodarone or eliquis as of 01/19/23-pt states still taking entresto 97-103 bid ext med history shows last filled 11/18/22 15d/s pt states had a build up of the medication
[2023-01-19 10:30] VITALS: PULSE 78; O2SAT 98
[2023-01-19 10:46] LABS: Troponin(5th) Baseline 10 ng/L (0-10)
== END 2023-01-19 11:24 | disposition home or self-care (01) ==
PROVIDERS: Emergency Provider Family Medicine; PCP Physician Assistant
DX: R07.89 Other chest pain (principal); I82.701 Chronic embolism and thrombosis of unspecified veins of right upper extremity; Z79.01 Long term (current) use of anticoagulants
CPT/HCPCS: 36415; 71045; 80048; 84484; 85025; 93005; 96372; 99285; J2270; J2405

== ENCOUNTER 2023-01-20 06:02 | Emergency (ER) | payer MEDICARE, MEDICAID, SELFPAY ==
[2023-01-20 06:01] VITALS: BP 109/76; PULSE 86; RESP 16; TEMP 36.6; O2SAT 99; BMI 25.0
--- NOTE | 2023-01-20 06:08 | XRR_ITS ---
PROCEDURE INFORMATION: Exam: XR Chest Exam date and time: 01/20/2023 6:21 AM Age: 53 years old Clinical indication: Cough and dyspnea; Sternal or substernal pain; Prior surgery; Additional info: Dyspnea/cough TECHNIQUE: Imaging protocol: Radiologic exam of the chest. Views: 1 view. COMPARISON: CR (CHEST, ) 01/10/2023 12:11 AM FINDINGS: Tubes, catheters and devices: Stable pacemaker. Lungs: There is now focal right lower base laterally infiltrate. Pleural spaces: There is a new small right pleural effusion. There is no left pleural effusion. There is no pneumothorax. Heart/Mediastinum: Unremarkable. No cardiomegaly. Bones/joints: Unremarkable. XR/XR chest 1V portable [id number] IMPRESSION: New right lateral base infiltrate with right pleural fluid.
--- NOTE | 2023-01-20 06:09 | ED_ITS ---
HPI - Chest Pain General: Chief Complaint: Chest Pain Stated Complaint: chest pain Time Seen by Provider: 01/20/23 06:07 Source: patient Mode of arrival: EMS History of Present Illness: 53-year-old female returns to the emergency room with complaints of chest pain. Patient has been to the emergency room or hospitalized frequently. She presents today with similar symptoms that she has had in the past.. She has a upper extremity venous thrombosis on the right secondary to line placement she is on Eliquis she was hospitalized and initially started on heparin for that and then converted to Eliquis. She was here yesterday concerned that she had a pulmonary embolism her heart rate was normal and there was no signs of hypoxia. She returns today she is again complaining of chest pain. She does have a known history of coronary artery disease. Echocardiogram earlier this month showed severe diffuse hypokinesis with an EF of 15 to 20%. Today she is complaining again of recurring chest pain radiating to her back. She was at rest when it began. MD complaint: chest pain Pertinent past history: coronary artery disease Timing of current episode: episodic Prior episodes: Yes Onset: during rest Pain location: substernal Severity: mild Quality: aching and heaviness Relieving factors: nothing Exacerbating factors: nothing Associated symptoms: Deny abdominal pain, diaphoresis, dyspnea, fever(s), leg edema, nausea, palpitations, sense of impending doom, syncope, vomiting or other Review of Systems Const: Denies: fever(s), chills, fatigue, malaise or diaphoresis ENMT: Denies: throat pain, ear or mastoid pain, nasal discharge or nasal congestion Card: Denies: palpitations or syncope Resp: Denies: dyspnea GI: Denies: abdominal pain, nausea or vomiting : Denies: flank pain, difficulty voiding, dysuria, urinary frequency or urinary urgency Skin/Breast: Denies: rash or pruritus PFSH ED PFSH: Medical History Acute hypokalemia Acute on chronic systolic heart failure AICD discharge GERRI (acute kidney injury) Anemia Cardiogenic shock Chest pain Chest pain CHF (congestive heart failure) Chronic systolic (congestive) heart failure CKD (chronic kidney disease) Closed intertrochanteric fracture of left hip Defibrillator discharge Encounter for testing following appropriate discharge of implantable cardioverter-defibrillator (ICD) History of recurrent UTIs History of TIA (transient ischemic attack) HTN (hypertension) Hydronephrosis, left Hypertension Hypokalemia Hypokalemia ICD (implantable cardioverter-defibrillator) in place Idiopathic ventricular fibrillation Liver mass Macrocytic anemia Mass of right lobe of liver ~3.5 x 4 cm, indeterminant, hypodense, first noted 11/2021 Nicotine dependence, cigarettes, uncomplicated Non-ischemic cardiomyopathy Nonischemic cardiomyopathy Obstructive pyelonephritis (~11/2021) Oliguria Renal atrophy, left Syncope Urolithiasis Multi stone former. Complicated by at least 1 episode of obstructive pyelonephritis. Multiple procedures required to treat Ventricular tachycardia Weakness Surgical History Nephrostomy status S/P ureteral stent placement (~11/2021) Status post cholecystectomy Status post placement of cardiac pacemaker Family History Father , AT AGE 77 CAD (coronary artery disease) Cancer lung cancer Mother , AT AGE 60 Cancer OVARIAN Denies family history of Clotting disorder Anesthesia complication Bleeding disorder Social History Smoking and tobacco status: current every day smoker cigarettes Packs smoked per day: 0.5 Years cigarettes smoked: 45 Second hand smoke exposure: Yes Alcohol intake: current Lives independently: Yes Marital status: service: No Current occupational status: disabled Current gender identity: Female Physical Exam Const: GENERAL APPEARANCE: cooperative and comfortable ORIENTA TION/CONSCIOUSNESS: Yes awake, Yes oriented to person, Yes oriented to place and Yes oriented to time HENMT: COMMON NORMALS: normocephalic, atraumatic and hearing grossly normal bilaterally HEAD & SCALP: normocephalic and atraumatic Resp: COMMON NORMALS: normal respiratory effort, No retractions, No use of accessory muscles and clear to auscultation bilaterally AUSCULTATION: clear to auscultation bilaterally Cardio: COMMON NORMALS: regular rate, regular rhythm and No murmurs present (Cardio) RATE: regular rate RHYTHM: regular rhythm GI: COMMON NORMALS: Soft to palpation and No hepatosplenomegaly present AUSCULTATION: Yes normoactive bowel sounds PALPATION: Yes Soft to palpation, No Tenderness to palpation present (GI), No Guarding due to palpation present (GI) and Yes No hepatosplenomegaly present Extremity: COMMON NORMALS: normal to inspection, capillary refill normal, no clubbing, cyanosis or edema, no calf tenderness and no pedal edema Neuro: SENSORIUM/ORIENTATION: Yes oriented to person, Yes oriented to place and Yes oriented to time Skin: COMMON NORMALS: no rashes or lesions noted GENERAL SKIN EXAM: no rashes or lesions noted Course Vital Signs: Vital signs: Vital Signs Temperature 97.8 F 01/20/23 06:16 Pulse Rate 85 01/20/23 11:10 Respiratory Rate 16 01/20/23 06:16 Blood Pressure 104/77 01/20/23 11:10 Pulse Oximetry 92 01/20/23 11:10 Oxygen Delivery Me thod Room Air 01/20/23 09:58 MDM - Chest Pain Medical Decision Making Troponins negative white count normal. Chest x-ray shows a new right base infiltrate. Her vital signs are stable. At this point I think she can be treated as an outpatient we will start her on oral Levaquin. If she has any worsening or change symptoms return. Medical Records I reviewed the patient's medical records. Lab Data I reviewed the patient's lab results. 01/20/23 06:55 01/20/23 06:55 Radiology Impressions Chest X-Ray 01/20/23 06:08 IMPRESSION: New right lateral base infiltrate with right pleural fluid. Laboratory Results WBC 7.5 10^3/uL (4.0-10.0) 01/20/23 06:55 RBC 3.41 10^6/uL (4.1-5.3) L 01/20/23 06:55 Hgb 11.5 g/dL (11.5-15.3) 01/20/23 06:55 Hct 36.0 % (37.0-47.0) L 01/20/23 06:55 MCV 105.6 fl (81-99) H 01/20/23 06:55 MCH 33.7 pg (28.0-34.0) 01/20/23 06:55 MCHC 31.9 g/dL (30.0-36.0) 01/20/23 06:55 RDW 16.2 % (12.1-15.1) H 01/20/23 06:55 Plt Count 260 10^3/cmm (130-400) 01/20/23 06:55 MPV 11.8 fL (7.4-10.4) H 01/20/23 06:55 Neut % (Auto) 65.2 % 01/20/23 06:55 Lymph % (Auto) 24.5 % 01/20/23 06:55 [place] % (Auto) 7.2 % 01/20/23 06:55 Eos % (Auto) 1.2 % 01/20/23 06:55 Baso % (Auto) 1.1 % 01/20/23 06:55 Neut # (Auto) 4.89 10^3/uL (1.8-7.7) 01/20/23 06:55 Lymph # (Auto) 1.8 10^3/uL (0.8-4.8) 01/20/23 06:55 [place] # (Auto) 0.5 10^3/uL (0.2-0.9) 01/20/23 06:55 Eos # (Auto) 0.1 10^3/uL (0.0-0.8) 01/20/23 06:55 Baso # (Auto) 0.1 10^3/uL (0.0-0.1) 01/20/23 06:55 Nucleated RBC % (auto) 0 % 01/20/23 06:55 Nucleated RBCs # 0.0 /100WBC 01/20/23 06:55 Sodium 138 mmol/L (136-145) 01/20/23 06:55 Potassium 5.2 mmol/L (3.5-5.1) H 01/20/23 06:55 Chloride 101 mmol/L (98-107) 01/20/23 06:55 Carbon Dioxide 21 mmol/L (22-29) L 01/20/23 06:55 Anion Gap 21.2 (5-19) H 01/20/23 06:55 BUN 17 mg/dL (6-20) 01/20/23 06:55 Creatinine 1.1 mg/dL (0.5-0.9) H 01/20/23 06:55 GFR Calculation 52.0 mL/min (90-130) L 01/20/23 06:55 Glucose 102 mg/dL (65-115) 01/20/23 06:55 Calculated Osmolality 288 mOsm/kg (285-295) 01/20/23 06:55 Calcium 8.8 mg/dL (8.5-10.5) 01/20/23 06:55 Troponin T Baseline 13 ng/L (0-10) H 01/20/23 07:23 Troponin T 120 Minute 9.78 ng/L (0-10) 01/20/23 09:23 Delta Troponin T -3.22 ABS# (0-10) L 01/20/23 09:23 NT-Pro-B Natriuret Pep 17417 pg/mL (0-125) H 01/20/23 06:55 Discharge Plan Discharge Patient Disposition: Home Clinical Impression: Pneumonia Condition: Stable Prescriptions: New levofloxacin 500 mg tablet 500 mg PO DAILY 7 Days Qty: 7 0RF No Action citalopram [Celexa] 40 mg tablet 40 mg PO QPM zolpidem 10 mg tablet 10 mg PO BEDTIME aspirin [Adult Low Dose Aspirin] 81 mg tablet,delayed release (DR/EC) 162 mg PO QAM Hold Instructions: Resume on 10/19/22. Until after percutaneous tube placed in the left kidney carvedilol 6.25 mg tablet 6.25 mg PO BID Qty: 180 2RF Hold Instructions: Resume on 01/12/23. Rx Instructions: must administer with a meal/food Vitamin B-12 50 mcg Tablet 50 mcg PO QAM montelukast 10 mg tablet 10 mg PO QAM furosemide [Lasix] 40 mg tablet 40 mg PO QAM potassium chloride 10 mEq tablet extended release 20 meq PO QAM Rx Instructions: Only take with Lasix spironolactone 25 mg tablet 25 mg PO QAM magnesium 200 mg tablet 200 mg PO QAM polyethylene glycol 3350 [Miralax] 17 gram/dose powder 17 g PO DAILY Entresto 97-103 mg Tablet 1 tab PO BID amiodarone 400 mg tablet 400 mg PO DAILY 30 Days Qty: 30 3RF Rx Instructions: START FROM 01/23 (not started as of 01/20/23 HAS TO FINISHED BID DOSE) hydrocodone-acetaminophen 5-325 mg tablet 1 tab PO Q8H PRN (Reason: pain) Qty: 7 0RF ondansetron 4 mg tablet,disintegrating 4 mg PO Q6H PRN (Reason: nausea and vomiting) Qty: 14 0RF acetaminophen 500 mg Tablet 1,000 mg PO Q6H PRN (Reason: Pain) omeprazole 20 mg capsule,delayed release(DR/EC) 20 mg PO BID nitroglycerin [Nitrostat] 0.4 mg Tablet, Sublingual 0.4 mg SUBLINGUAL Q5M PRN (Reason: Chest Pain) Rx Instructions: do not exceed 3 doses per episode albuterol sulfate 90 mcg/actuation HFA aerosol inhaler 2 puff INHALATION QID PRN (Reason: Shortness Of Breath) midodrine 5 mg Tablet 5 mg PO BID PRN (Reason: Sbp less than 100) Qty: 20 0RF Eliquis 5 mg tablet See Rx Instructions .ROUTE .COMPLEX Rx Instructions: take 10 mg po bid for next 7 days and thereafter 5 mg po BID. (STARTED 01/20/23 PER PT) Discharge Orders: Discharge ED (Routine); Ordered 01/20/23 Ordered By: Abiodun Stone Referrals: Mavis Peterson PA [Primary Care Provider] - Discharge Diet: Usual diet Discharge Activity: Increase activity as tolerated Patient Instructions: Opioid Safety, Pain Management Activity Restrictions/Additional Instructions: You are seen today in the emergency room for chest discomfort. Your cardiac enzymes and EKG did not show any significant abnormality your chest x-ray showed what appears to be an early new pneumonia compared to the chest x-ray done yesterday. Laboratory work that monitors congestive heart failure continues to show improvement. Recommend you start Levaquin 500 once daily for 7 days. Follow-up with your primary care doctor. Coding Level of Care Code ED Poolroom/Poolhall Manager for Wesley Herrera
--- NOTE | 2023-01-20 06:14 | ECG_ITS ---
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 Measurements Intervals [place] Rate: 85 P: 82 LA: 170 QRS: 111 QRSD: 140 T: 68 QT: 442 QTc: 526 Interpretive Statements SINUS RHYTHM INDETERMINATE AXIS INTRAVENTRICULAR CONDUCTION DELAY [130+ ms QRS DURATION] Compared to ECG 01/19/2023 08:38:04 Indeterminate axis now present Intraventricular conduction delay now present Left-axis deviation no longer present Left bundle-branch block no longer present Electronically Signed On 01-20-2023 13:51:02 CDT by Pola Ferrera M.D. [email or web address] CompanyPreztolouis [email or web address] [id number] f
[2023-01-20 06:16] VITALS: BP 109/76; PULSE 87; RESP 16; TEMP 36.6; O2SAT 99
[2023-01-20 07:04] LABS: Basophils # 0.1 10^3/uL (0.0-0.1); Basophils % 1.1 %; Eosinophils # 0.1 10^3/uL (0.0-0.8); Eosinophils % 1.2 %; Hemoglobin 11.5 g/dL (11.5-15.3); Lymphocytes # 1.8 10^3/uL (0.8-4.8); Lymphocytes % 24.5 %; Mean Corpuscular HGB Conc 31.9 g/dL (30.0-36.0); Mean Corpuscular Hemoglobin 33.7 pg (28.0-34.0); Mean Corpuscular Volume 105.6 fl (81-99); Mean Platelet Volume 11.8 fL (7.4-10.4); Monocytes # 0.5 10^3/uL (0.2-0.9); Monocytes % 7.2 %; Neutrophils # 4.89 10^3/uL (1.8-7.7); Neutrophils % 65.2 %; Nucleated Red Blood Cells % 0 %; Platelet Count 260 10^3/cmm (130-400); Red Blood Count 3.41 10^6/uL (4.1-5.3); Red Cell Distribution Width 16.2 % (12.1-15.1); White Blood Count 7.5 10^3/uL (4.0-10.0)
[2023-01-20 07:07] VITALS: BP 92/70; PULSE 88; O2SAT 98
[2023-01-20 07:24] LABS: Blood Urea Nitrogen 17 mg/dL (6-20); Calcium 8.8 mg/dL (8.5-10.5); Carbon Dioxide 21 mmol/L (22-29); Chloride 101 mmol/L (98-107); Glucose 102 mg/dL (65-115); Osmolality Calculated 288 mOsm/kg (285-295); Sodium 138 mmol/L (136-145)
[2023-01-20 07:25] LABS: Anion Gap 21.2 (5-19); Potassium 5.2 mmol/L (3.5-5.1)
[2023-01-20 07:53] LABS: Troponin(5th) Baseline 13 ng/L (0-10)
[2023-01-20 07:55] LABS: NT Pro B Type Natriuretic Pept 11100 pg/mL (0-125)
--- NOTE | 2023-01-20 08:14 | ECG_ITS ---
[facility] Test Date: 2023-01-20 Pat Name: Elena Pulliam Department: Room: Gender: Female Plant Manager: : 1970 Requested By: Abiodun Johnson Order Number: [id number] Arlette MD: Pola Ferrera M.D. Measurements Intervals [place] Rate: 88 P: 56 [place]: 175 QRS: -48 QRSD: 145 T: 112 QT: 448 QTc: 543 Interpretive Statements SINUS RHYTHM LEFT AXIS DEVIATION [QRS AXIS < -30] LEFT BUNDLE BRANCH BLOCK [120+ ms QRS DURATION, 80+ ms Q/S IN V1/V2, 85+ ms R IN I/aVL/V5/V6] Compared to ECG 01/20/2023 06:14:22 Left-axis deviation now present Left bundle-branch block now present Indeterminate axis no longer present Intraventricular conduction delay no longer present Electronically Signed On 01-20-2023 13:53:40 CDT by Pola Ferrera M.D. [id number]
[2023-01-20] MEDS: promethazine 25 mg/mL SDV 1 mL IM (08:38)
[2023-01-20] MEDS: acetaminophen 1,000 MG/100 ML PIGGYBACK 400 MG IV (08:39)
[2023-01-20 09:23] VITALS: BP 121/73; PULSE 87; O2SAT 95
[2023-01-20 09:49] LABS: Troponin 5 2HR 9.78 ng/L (0-10)
[2023-01-20 09:53] LABS: Troponin 5 2HR Delta -3.22 ABS# (0-10)
[2023-01-20 09:58] VITALS: BP 108/67; O2SAT 95
--- NOTE | 2023-01-20 10:21 | PC.PHAR ---
PT STATES SHE STARTED TAKING HER AMIODARONE 40MG BID DOSE TODAY AND ELIQUIS STARTER PACK PT STATES TOOK BOTH THOSE MEDS TODAY-PT STATES THOSE ARE THE ONLY MEDICATIONS SHE TOOK TODAY-PT STATES SHE STILL TAKES ENTRESTO 97-103MG BID EXT SHOWS LAST FILLED 11/18/21 15D/S-PT STATES ALL HER MEDS ARE THE SAME YESTERDAY
[2023-01-20 11:10] VITALS: BP 104/77; PULSE 85; O2SAT 92
== END 2023-01-20 11:11 | disposition home or self-care (01) ==
PROVIDERS: Emergency Provider Family Medicine; PCP Physician Assistant
DX: J18.9 Pneumonia, unspecified organism (principal); Z79.82 Long term (current) use of aspirin; Z79.01 Long term (current) use of anticoagulants; F17.210 Nicotine dependence, cigarettes, uncomplicated; Z95.0 Presence of cardiac pacemaker; I13.0 Hypertensive heart and chronic kidney disease with heart failure and stage 1 through stage 4 chronic kidney disease, or unspecified chronic kidney disease; N18.9 Chronic kidney disease, unspecified; I50.23 Acute on chronic systolic (congestive) heart failure; Z94.0 Kidney transplant status; Z86.73 Personal history of transient ischemic attack (TIA), and cerebral infarction without residual deficits
CPT/HCPCS: 36415; 71045; 80048; 83880; 84484; 85025; 93005; 96365; 96372; 99285; J0131; J2550

== ENCOUNTER 2023-01-20 18:15 | Emergency (ER) | payer MEDICARE, MEDICAID, SELFPAY ==
[2023-01-20 18:22] VITALS: BP 139/86; PULSE 92; RESP 14; TEMP 36.7; O2SAT 98
--- NOTE | 2023-01-20 18:39 | XRR_ITS ---
PROCEDURE INFORMATION: Exam: XR Chest Exam date and time: 01/20/2023 6:45 PM Age: 53 years old Clinical indication: Shortness of breath and other: Chest pains, HX of heart attack; Prior surgery; Surgery date: 1-6 months; Additional info: SOB TECHNIQUE: Imaging protocol: Radiologic exam of the chest. Views: 1 view. COMPARISON: CR (CHEST, ) 01/20/2023 6:21 AM FINDINGS: Tubes, catheters and devices: Single lead pacemaker on the left. Lungs: See Pleural spaces finding. Pleural spaces: Mild ill-defined right basilar infiltrate again noted, with suggestion mild blunting right costophrenic angle suggesting small effusion. Remainder of the lungs are clear. Findings are similar in appearance to exam earlier same date. No pneumothorax. Heart/Mediastinum: Mild cardiomegaly. Bones/joints: No acute osseous abnormality. XR/XR chest 1V portable [id number] IMPRESSION: Mild ill-defined right basilar infiltrate with small effusion at the right costophrenic angle, as noted with previous exam. Single lead pacemaker and mild cardiomegaly.
--- NOTE | 2023-01-20 18:39 | ED_ITS ---
HPI - Extremity Problem General: Chief complaint: Extremity Injury, Lower Stated complaint: leg pain Time Seen by Provider: 01/20/23 18:20 Source: patient History of Present Illness: 53-year-old female who was here this morning. She presents now with multiple complaints including continued chest discomfort, shortness of breath, especially when trying to walk, instability on her feet, and bilateral leg pain. She also says that her chronic left nephrostomy tube was pulled earlier creating some left flank pain and blood in her tube. She said she has had fever today as well. MD Complaint: extremity pain and other Onset (ago): hour(s) Pain Consistency: constant Location: left, right and lower extremity Quality: stabbing and aching Exacerbating factors: weight bearing Associated symptoms: Reports chest pain, fever(s), myalgias and short of breath; Deny rash Review of Systems Const: Reports: fever(s) Card: Reports: chest pain Resp: Reports: dyspnea; Denies: productive cough or non-productive cough GI: Reports: nausea; Denies: vomiting : Reports: flank pain Musc: Reports: back pain and extremity pain Skin/Breast: Denies: rash Neuro: Reports: difficulty walking and dizziness; Denies: numbness in extremities PFSH ED PFSH: Medical History Acute hypokalemia Acute on chronic systolic heart failure AICD discharge GERRI (acute kidney injury) Anemia Cardiogenic shock Chest pain Chest pain CHF (congestive heart failure) Chronic systolic (congestive) heart failure CKD (chronic kidney disease) Closed intertrochanteric fracture of left hip Defibrillator discharge Encounter for testing following appropriate discharge of implantable cardioverter-defibrillator (ICD) History of recurrent UTIs History of TIA (transient ischemic attack) HTN (hypertension) Hydronephrosis, left Hypertension Hypokalemia Hypokalemia ICD (implantable cardioverter-defibrillator) in place Idiopathic ventricular fibrillation Liver mass Macrocytic anemia Mass of right lobe of liver ~3.5 x 4 cm, indeterminant, hypodense, first noted 11/2021 Nicotine dependence, cigarettes, uncomplicated Non-ischemic cardiomyopathy Nonischemic cardiomyopathy Obstructive pyelonephritis (~11/2021) Oliguria Renal atrophy, left Syncope Urolithiasis Multi stone former. Complicated by at least 1 episode of obstructive pyelonephritis. Multiple procedures required to treat Ventricular tachycardia Weakness Surgical History Nephrostomy status S/P ureteral stent placement (~11/2021) Status post cholecystectomy Status post placement of cardiac pacemaker Family History Father , AT AGE 77 CAD (coronary artery disease) Cancer lung cancer Mother , AT AGE 60 Cancer OVARIAN Denies family history of Clotting disorder Anesthesia complication Bleeding disorder Social History Smoking and tobacco status: current every day smoker cigarettes Packs smoked per day: 0.5 Years cigarettes smoked: 45 Second hand smoke exposure: Yes Alcohol intake: current Lives independently: Yes Marital status: service: No Current occupational status: disabled Current gender identity: Female Physical Exam HENMT: COMMON NORMALS: normocephalic, atraumatic and Normal external nose present HEAD & SCALP: normocephalic and atraumatic FACE & SINUS: face symmetric NOSE: Normal external nose present Eye: COMMON NORMALS: Equal, round and reactive pupils present and EOMs intact bilaterally PUPIL: Yes Equal, round and reactive pupils present Neck/C-Spine: GENERAL: Yes trachea midline Chest: CHEST: Yes Symmetrical chest wall rise Resp: COMMON NORMALS: normal respiratory effort, No use of accessory muscles and clear to auscultation bilaterally AUSCULTATION: clear to auscultation bilaterally Cardio: COMMON NORMALS: regular rate and regular rhythm RATE: regular rate RHYTHM: regular rhythm GI: COMMON NORMALS: Normal to inspection, nondistended, normoactive bowel sounds present and Soft to palpation PALPATION: Yes Soft to palpation and Yes Tenderness to palpation present (GI) (diffuse) Back/Pelvis: OTHER: No pain on straight leg raise testing bilaterally Extremity: GENERAL: No edema Neuro: GRETA COMA SCALE: document GCS findings Rockledge coma scale eye opening: Spontaneous Greta coma scale verbal response: Orientated Rockledge coma scale motor response: Obey commands Rockledge coma scale total score: 15 Psych: COMMON NORMALS: cooperative Course Vital Signs: Vital signs: Vital Signs Temperature 98.1 F 01/20/23 18:22 Pulse Rate 91 01/20/23 22:40 Respiratory Rate 16 01/20/23 20:59 Blood Pressure 112/78 01/20/23 22:40 Pulse Oximetry 93 01/20/23 22:40 Oxygen Delivery Me thod Nasal Cannula 01/20/23 20:59 Fraction of Inspir ed Oxygen 2 01/20/23 20:59 MDM - Extremity (Nontraumatic) Medical Decision Making In [id number] female with multiple comorbid conditions such as chronic left nephrostomy tube, systolic CHF with a EF of 15 to 20%, and a new diagnosis of pneumonia from chest x-ray this morning. She has been taking her Eliquis faithfully she says. She is nontachycardic and not on hypoxic on exam. She has some scant bleeding at her nephrostomy tube site. It is KUB, and draining urine. It is flushed. Urine does appear somewhat infected potentially. she is on Levaquin now which should cover adequately. She does not appear to have any history of resistant bacteria on urine culture. Chest x-ray is stable from this morning. Laboratory is essentially stable since this morning. Her pain is more well controlled now. She will be allowed discharge. Lab Data 01/20/23 19:00 01/20/23 19:00 Radiology Impressions Chest X-Ray 01/20/23 18:39 IMPRESSION: Mild ill-defined right basilar infiltrate with small effusion at the right costophrenic angle, as noted with previous exam. Single lead pacemaker and mild cardiomegaly. KUB X-Ray 01/20/23 18:45 IMPRESSION: Left-sided nephrostomy catheter. Nonspecific nonobstructive bowel gas pattern. Laboratory Results WBC 8.0 10^3/uL (4.0-10.0) 01/20/23 19:00 RBC 3.48 10^6/uL (4.1-5.3) L 01/20/23 19:00 Hgb 11.4 g/dL (11.5-15.3) L 01/20/23 19:00 Hct 36.5 % (37.0-47.0) L 01/20/23 19:00 MCV 104.9 fl (81-99) H 01/20/23 19:00 MCH 32.8 pg (28.0-34.0) 01/20/23 19:00 MCHC 31.2 g/dL (30.0-36.0) 01/20/23 19:00 RDW 16.3 % (12.1-15.1) H 01/20/23 19:00 Plt Count 283 10^3/cmm (130-400) 01/20/23 19:00 MPV 11.2 fL (7.4-10.4) H 01/20/23 19:00 Neut % (Auto) 56.6 % 01/20/23 19:00 Lymph % (Auto) 33.8 % 01/20/23 19:00 [place] % (Auto) 7.7 % 01/20/23 19:00 Eos % (Auto) 0.3 % 01/20/23 19:00 Baso % (Auto) 1.1 % 01/20/23 19:00 Neut # (Auto) 4.50 10^3/uL (1.8-7.7) 01/20/23 19:00 Lymph # (Auto) 2.7 10^3/uL (0.8-4.8) 01/20/23 19:00 [place] # (Auto) 0.6 10^3/uL (0.2-0.9) 01/20/23 19:00 Eos # (Auto) 0.0 10^3/uL (0.0-0.8) 01/20/23 19:00 Baso # (Auto) 0.1 10^3/uL (0.0-0.1) 01/20/23 19:00 Nucleated RBC % (auto) 0 % 01/20/23 19:00 Nucleated RBCs # 0.0 /100WBC 01/20/23 19:00 PT 16.80 SECONDS (12.1-14.9) H 01/20/23 19:14 INR 1.31 (0.8-1.2) H 01/20/23 19:14 APTT 35.0 SECONDS (23.9-36.7) 01/20/23 19:14 Sodium 136 mmol/L (136-145) 01/20/23 19:00 Potassium 4.4 mmol/L (3.5-5.1) 01/20/23 19:00 Chloride 98 mmol/L (98-107) 01/20/23 19:00 Carbon Dioxide 21 mmol/L (22-29) L 01/20/23 19:00 Anion Gap 21.4 (5-19) H 04/14/23 19:00 BUN 17 mg/dL (6-20) 01/20/23 19:00 Creatinine 1.1 mg/dL (0.5-0.9) H 01/20/23 19:00 GFR Calculation 52.0 mL/min (90-130) L 01/20/23 19:00 Glucose 93 mg/dL (65-115) 01/20/23 19:00 Calculated Osmolality 283 mOsm/kg (285-295) L 01/20/23 19:00 Lactate 3.7 mmol/L (0.5-2.2) H 01/20/23 19:14 Calcium 8.7 mg/dL (8.5-10.5) 01/20/23 19:00 Magnesium 1.7 mg/dL (1.7-2.3) 01/20/23 19:00 Total Bilirubin 0.6 mg/dL (0.15-1.2) 01/20/23 19:00 AST 22 U/L (0-32) 01/20/23 19:00 ALT 27 U/L (0-33) 01/20/23 19:00 Alkaline Phosphatase 93 U/L (35-105) 01/20/23 19:00 Troponin T Baseline 13 ng/L (0-10) H 01/20/23 19:00 Troponin T 120 Minute 12.96 ng/L (0-10) H 01/20/23 20:40 Delta Troponin T -0.04 ABS# (0-10) L 01/20/23 20:40 C-Reactive Protein 6.9 mg/L (0.0-4.9) H 01/20/23 19:00 NT-Pro-B Natriuret Pep 33209 pg/mL (0-125) H 01/20/23 19:00 Total Protein 6.3 g/dL (6.6-8.7) L 01/20/23 19:00 Albumin 3.9 g/dL (3.5-5.2) 01/20/23 19:00 Globulin 2.4 g/dL (1.3-4.6) 01/20/23 19:00 Urine Color Yellow (Yellow) 01/20/23 20:56 Urine Appearance Hazy (CLEAR) A 01/20/23 20:56 Urine pH 9 (5-7) H 01/20/23 20:56 Ur Specific [place] 1.010 (1.005-1.030) 01/20/23 20:56 Urine Protein 3+ (Negative) H 01/20/23 20:56 Urine Glucose (UA) Norm (Normal) 01/20/23 20:56 Urine Ketones Negative (Negative) 01/20/23 20:56 Urine Blood 3+ (Negative) H 01/20/23 20:56 Urine Nitrate Negative (Negative) 01/20/23 20:56 Urine Bilirubin Neg (Negative) 01/20/23 20:56 Prot Sulfosalicylic Acd Positive (Negative) 01/20/23 20:56 Urine Urobilinogen Norm mg/dL (Negative) 01/20/23 20:56 Ur Leukocyte Esterase 2+ (Negative) H 01/20/23 20:56 Urine RBC 25-40 /hpf (0-2) H 01/20/23 20:56 Urine WBC 10-15 /hpf (0-5) H 01/20/23 20:56 Ur Squamous Epith Cells 0-4 /hpf (0-5) H 01/20/23 20:56 Amorphous Sediment Not Reportable 01/20/23 20:56 Urine Bacteria 3+ /hpf (NONE) H 01/20/23 20:56 Discharge Plan Discharge Patient Disposition: Home Clinical Impression: Nephrostomy status, Complicated UTI (urinary tract infection), Pneumonia Condition: Stable Prescriptions: New hydrocodone-acetaminophen 5-325 mg tablet 1 tab PO Q8H PRN (Reason: pain) Qty: 7 0RF Continued ondansetron 4 mg tablet,disintegrating 4 mg PO Q6H PRN (Reason: nausea and vomiting) Qty: 14 0RF No Action citalopram [Celexa] 40 mg tablet 40 mg PO QPM zolpidem 10 mg tablet 10 mg PO BEDTIME aspirin [Adult Low Dose Aspirin] 81 mg tablet,delayed release (DR/EC) 162 mg PO QAM Hold Instructions: Resume on 10/19/22. Until after percutaneous tube placed in the left kidney carvedilol 6.25 mg tablet 6.25 mg PO BID Qty: 180 2RF Hold Instructions: Resume on 01/12/23. Rx Instructions: must administer with a meal/food Vitamin B-12 50 mcg Tablet 50 mcg PO QAM montelukast 10 mg tablet 10 mg PO QAM furosemide [Lasix] 40 mg tablet 40 mg PO QAM potassium chloride 10 mEq tablet extended release 20 meq PO QAM Rx Instructions: Only take with Lasix spironolactone 25 mg tablet 25 mg PO QAM magnesium 200 mg tablet 200 mg PO QAM polyethylene glycol 3350 [Miralax] 17 gram/dose powder 17 g PO DAILY Entresto 97-103 mg Tablet 1 tab PO BID amiodarone 400 mg tablet 400 mg PO BID 5 Days Qty: 10 0RF Rx Instructions: FROM 01-18 TO -16 (STARTED 01/20/23) amiodarone 400 mg tablet 400 mg PO DAILY 30 Days Qty: 30 3RF Rx Instructions: START FROM 01/23 (not started as of 01/20/23 HAS TO FINISHED BID DOSE) acetaminophen 500 mg Tablet 1,000 mg PO Q6H PRN (Reason: Pain) omeprazole 20 mg capsule,delayed release(DR/EC) 20 mg PO BID nitroglycerin [Nitrostat] 0.4 mg Tablet, Sublingual 0.4 mg SUBLINGUAL Q5M PRN (Reason: Chest Pain) Rx Instructions: do not exceed 3 doses per episode albuterol sulfate 90 mcg/actuation HFA aerosol inhaler 2 puff INHALATION QID PRN (Reason: Shortness Of Breath) midodrine 5 mg Tablet 5 mg PO BID PRN (Reason: Sbp less than 100) Qty: 20 0RF Eliquis 5 mg tablet See Rx Instructions .ROUTE .COMPLEX Rx Instructions: take 10 mg po bid for next 7 days and thereafter 5 mg po BID. (STARTED 01/20/23 PER PT) levofloxacin 500 mg tablet 500 mg PO DAILY 7 Days Qty: 7 0RF Discharge Orders: Discharge ED (Routine); Ordered 01/20/23 Ordered By: Jad Muniz Referrals: Mavis Peterson PA [Primary Care Provider] - Patient Instructions: Urinary Tract Infection in Women (ED), Pneumonia (ED), Opioid Safety, Pain Management Activity Restrictions/Additional Instructions: Continue your antibiotic as directed. That should cover both of your problems (pneumonia and urinary tract infection) very readily. Call your urologist on Mo nday, they may wish to see you. Return for continued fevers despite 3 more doses of antibiotics, vomiting liquids or medications, other concerning symptoms. Use pain medication sparingly. Coding Level of Care Code ED Enrober Tender for Wesley Herrera
--- NOTE | 2023-01-20 18:45 | XRR_ITS ---
PROCEDURE INFORMATION: Exam: XR Abdomen Exam date and time: 01/20/2023 7:22 PM Age: 53 years old Clinical indication: Other: SOB; Prior surgery; Surgery date: 6+ months; Additional info: Nephrostomy tube TECHNIQUE: Imaging protocol: Radiologic exam of the abdomen. Views: Frontal supine view of the abdomen. 1 View. COMPARISON: CT abdomen pelvis con [id number] 12/30/2022 2:55 PM FINDINGS: Tubes, catheters and devices: A left-sided nephrostomy tube is seen. Surgical clips right upper quadrant. Gastrointestinal tract: Nonspecific nonobstructive bowel gas pattern. Intraperitoneal space: No indication of free air. Vasculature: Nonspecific pelvic calcifications, which could represent phleboliths. No abnormal calcifications are seen otherwise. Bones/joints: Prior internal fixation left hip. Mild spondylotic change of the spine. XR/XR KUB portable [id number] IMPRESSION: Left-sided nephrostomy catheter. Nonspecific nonobstructive bowel gas pattern.
--- NOTE | 2023-01-20 18:51 | ECG_ITS ---
[facility] Test Date: 2023-01-20 Pat Name: Elena Pulliam Department: Room: Gender: Female Sloop Captain: : 1970 Requested By: Jad Eagle Order Number: [id number] Arlette MD: Pola Ferrera M.D. Measurements Intervals [place] Rate: 93 P: 27 IN: 152 QRS: -36 QRSD: 145 T: 112 QT: 429 QTc: 536 Interpretive Statements SINUS RHYTHM LEFT AXIS DEVIATION [QRS AXIS < -30] LEFT BUNDLE BRANCH BLOCK [120+ ms QRS DURATION, 80+ ms Q/S IN V1/V2, 85+ ms R IN I/aVL/V5/V6] Compared to ECG 01/20/2023 08:12:20 No significant changes Electronically Signed On 01-21-2023 10:29:46 CDT by Pola Ferrera M.D. [id number]
[2023-01-20] MEDS: morphine 4 mg/mL SDV 1 mL IVP ×2 (19:08→19:51)
[2023-01-20] MEDS: ondansetron 2 mg/ML SDV 2 mL 4 MG IVP ×2 (19:08→20:56)
[2023-01-20 19:12] LABS: Basophils # 0.1 10^3/uL (0.0-0.1); Basophils % 1.1 %; Eosinophils % 0.3 %; Hematocrit 36.5 % (37.0-47.0); Hemoglobin 11.4 g/dL (11.5-15.3); Lymphocytes # 2.7 10^3/uL (0.8-4.8); Lymphocytes % 33.8 %; Mean Corpuscular HGB Conc 31.2 g/dL (30.0-36.0); Mean Corpuscular Hemoglobin 32.8 pg (28.0-34.0); Mean Corpuscular Volume 104.9 fl (81-99); Mean Platelet Volume 11.2 fL (7.4-10.4); Monocytes # 0.6 10^3/uL (0.2-0.9); Monocytes % 7.7 %; Neutrophils % 56.6 %; Nucleated Red Blood Cells % 0 %; Platelet Count 283 10^3/cmm (130-400); Red Blood Count 3.48 10^6/uL (4.1-5.3); Red Cell Distribution Width 16.3 % (12.1-15.1)
[2023-01-20 19:35] LABS: Troponin(5th) Baseline 13 ng/L (0-10)
[2023-01-20 19:42] LABS: Alanine Aminotransferase 27 U/L (0-33); Albumin Level 3.9 g/dL (3.5-5.2); Alkaline Phosphatase 93 U/L (35-105); Anion Gap 21.4 (5-19); Aspartate Amino Transferase 22 U/L (0-32); Blood Urea Nitrogen 17 mg/dL (6-20); C Reactive Protein 6.9 mg/L (0.0-4.9); Calcium 8.7 mg/dL (8.5-10.5); Carbon Dioxide 21 mmol/L (22-29); Chloride 98 mmol/L (98-107); Globulin 2.4 g/dL (1.3-4.6); Glucose 93 mg/dL (65-115); Magnesium 1.7 mg/dL (1.7-2.3); NT Pro B Type Natriuretic Pept 21101 pg/mL (0-125); Osmolality Calculated 283 mOsm/kg (285-295); Potassium 4.4 mmol/L (3.5-5.1); Sodium 136 mmol/L (136-145); Total Bilirubin 0.6 mg/dL (0.15-1.2); Total Protein 6.3 g/dL (6.6-8.7)
[2023-01-20 19:50] LABS: INR 1.31 (0.8-1.2)
[2023-01-20 19:51] VITALS: RESP 14; O2SAT 94
[2023-01-20 19:55] VITALS: PULSE 91; RESP 16; O2SAT 94
[2023-01-20 19:57] LABS: Lactate (Lactic Acid level) 3.7 mmol/L (0.5-2.2)
[2023-01-20 20:59] VITALS: BP 120/83; PULSE 94; RESP 16; O2SAT 96
[2023-01-20 21:05] LABS: Troponin 5 2HR 12.96 ng/L (0-10)
[2023-01-20 21:11] LABS: Troponin 5 2HR Delta -0.04 ABS# (0-10)
[2023-01-20 21:16] LABS: Blood Urine 3+ (Negative); Glucose Urine UA Norm (Normal); Ketones Urine Negative (Negative); Protein Urine 3+ (Negative); Urine Appearance Hazy (CLEAR); Urine Color Yellow (Yellow); pH Urine 9 (5-7)
[2023-01-20 21:17] LABS: Add Urine Microscopic? YES; Bilirubin Urine Neg (Negative); Leukocyte Esterase Urine 2+ (Negative); Nitrate Urine Negative (Negative); Sulfosalicylic Acid Urine Positive (Negative); Urobilinogen Urine Norm (Negative)
[2023-01-20 21:19] LABS: Bacteria Urine 3+ /hpf; Squamous Epithelial Cell Urine 0-4 /hpf (0-5)
[2023-01-20 21:20] LABS: Add Urine Culture? Yes; RBC Urine 25-40 /hpf (0-2)
--- NOTE | 2023-01-20 21:22 | ECG_ITS ---
[facility] Test Date: 2023-01-20 Pat Name: Elena Pulliam Department: Room: Gender: Female Relationship Specialist: : 1970 Requested By: Jad Eagle Order Number: [id number] Arlette MD: Pola Ferrera M.D. Measurements Intervals [place] Rate: 89 P: 20 CA: 152 QRS: -25 QRSD: 142 T: 86 QT: 427 QTc: 522 Interpretive Statements SINUS RHYTHM LEFT BUNDLE BRANCH BLOCK [120+ ms QRS DURATION, 80+ ms Q/S IN V1/V2, 85+ ms R IN I/aVL/V5/V6] Compared to ECG 01/20/2023 18:51:12 Left-axis deviation no longer present Electronically Signed On 01-21-2023 10:33:40 CDT by Pola Ferrera M.D. [email or web address].[employer]/store/[id number]
[2023-01-20 22:40] VITALS: BP 112/78; PULSE 91; O2SAT 93
== END 2023-01-20 22:11 | disposition home or self-care (01) ==
PROVIDERS: Emergency Provider Emergency Medicine; PCP Physician Assistant
DX: N39.0 Urinary tract infection, site not specified (principal); J18.9 Pneumonia, unspecified organism; F17.210 Nicotine dependence, cigarettes, uncomplicated; Z93.6 Other artificial openings of urinary tract status; I13.0 Hypertensive heart and chronic kidney disease with heart failure and stage 1 through stage 4 chronic kidney disease, or unspecified chronic kidney disease; I50.22 Chronic systolic (congestive) heart failure; N18.9 Chronic kidney disease, unspecified
CPT/HCPCS: 36415; 71045; 74018; 80053; 81001; 83605; 83735; 83880; 84484; 85025; 85610; 85730; 86140; 87086; 93005; 96374; 96375; 96376; 99285; J2270; J2405

== ENCOUNTER 2023-01-22 14:08 | Inpatient (IN) | payer MEDICARE, MEDICAID, SELFPAY ==
[2023-01-22] VITALS (111 sets, daily range): BP systolic 61–139; BP diastolic 29–93; PULSE 52–83; RESP 14–34; TEMP 35.8–36.6; O2SAT 82–100; BMI 25.0; BMI 26.6
--- NOTE | 2023-01-22 14:16 | ED_ITS ---
HPI - Weakness General: Chief complaint: Weakness Stated complaint: WEAKNESS; BRADYCARDIA; HYPOTENSION Time Seen by Provider: 01/22/23 14:16 History of Present Illness: Ms. Pulliam is a 53-year-old lady with complex past medical history including heart failure, nonischemic cardiomyopathy presenting to the emergency department for generalized weakness, pain, low blood pressure. She reports no recent changes in her medications or significant changes from baseline health until today. She began having weakness and extremity pain as well as back pain and presyncope with exertion starting today. Intensity symptoms is severe. Course has worsened. No other specific changes in health, exacerbating, or alleviating factors identified. Onset (ago): hour(s) Duration: progressively worsening Location: generalized Severity: severe Quality: aching and sharp Relieving factors: none Exacerbating factors: none Review of Systems General: Reports: 10 or more systems reviewed and unremarkable except in HPI and below PFSH ED PFSH: Medical History (Updated 01/25/23 @ 20:41 by Michael Hill MD) Acute hypokalemia Acute on chronic systolic heart failure AICD discharge GERRI (acute kidney injury) Anemia Cardiogenic shock Chest pain Chest pain CHF (congestive heart failure) Chronic systolic (congestive) heart failure CKD (chronic kidney disease) Closed intertrochanteric fracture of left hip Defibrillator discharge Encounter for testing following appropriate discharge of implantable cardioverter-defibrillator (ICD) History of recurrent UTIs History of TIA (transient ischemic attack) HTN (hypertension) Hydronephrosis, left Hypertension Hypokalemia Hypokalemia ICD (implantable cardioverter-defibrillator) in place Idiopathic ventricular fibrillation Liver mass Macrocytic anemia Mass of right lobe of liver ~3.5 x 4 cm, indeterminant, hypodense, first noted 11/2021 Nicotine dependence, cigarettes, uncomplicated Non-ischemic cardiomyopathy Nonischemic cardiomyopathy Severe diffuse hypokinesia of the left ventricle with an ejection fraction of 15 to 20%. Right ventricular appears to be normal size and ejection fraction. Mild biatrial enlargement. Thickened mitral valve. Moderately severe mitral regurgitation. [id number] tricuspid valve regurgitation. Thickened aortic valve. Compared to the study from 10/31/2022, ejection fraction appears to be declining Obstructive pyelonephritis (~11/2021) Oliguria Renal atrophy, left Syncope Urolithiasis Multi stone former. Complicated by at least 1 episode of obstructive pyelonephritis. Multiple procedures required to treat Ventricular tachycardia Weakness Surgical History Nephrostomy status S/P ureteral stent placement (~11/2021) Status post cholecystectomy Status post placement of cardiac pacemaker Family History Father , AT AGE 77 CAD (coronary artery disease) Cancer lung cancer Mother , AT AGE 60 Cancer OVARIAN Denies family history of Clotting disorder Anesthesia complication Bleeding disorder Social History Smoking and tobacco status: current every day smoker cigarettes Packs smoked per day: 0.5 Years cigarettes smoked: 45 Second hand smoke exposure: Yes Alcohol intake: current Substance/Drug Use: never Lives independently: Yes Marital status: service: No Current occupational status: disabled Current gender identity: Female Physical Exam Const: COMMON NORMALS: alert GENERAL APPEARANCE: cooperative, well developed and ill appearing HENMT: COMMON NORMALS: normocephalic and atraumatic HEAD & SCALP: normocephalic and atraumatic Eye: COMMON NORMALS: conjunctivae normal CONJUNCTIVA: Yes conjunctivae normal SCLERA: sclerae normal Neck/C-Spine: COMMON NORMALS: supple GENERAL: Yes trachea midline Resp: COMMON NORMALS: clear to auscultation bilaterally EFFORT & INSPECTION: Yes able to speak in complete sentences AUSCULTATION: clear to auscultation bilaterally Cardio: COMMON NORMALS: regular rhythm RATE: bradycardic RHYTHM: regular rhythm OTHER: Pallor, diminished peripheral perfusion. GI: COMMON NORMALS: Soft to palpation PALPATION: Yes Soft to palpation and No Tenderness to palpation present (GI) Extremity: GENERAL: Yes normal exam except as noted and No edema Neuro: COMMON NORMALS: moves all extremities SENSORIUM/ORIENTATION: Yes alert and No Orientation impaired Psych: COMMON NORMALS: mental status grossly normal and Normal thought process present THOUGHT PROCESS: Normal thought process present Course Vital Signs: Vital signs: Vital Signs Temperature 98.7 F 01/25/23 20:00 Pulse Rate 91 01/25/23 20:00 Respiratory Rate 20 H 01/25/23 20:00 Blood Pressure 124/71 01/25/23 20:30 Pulse Oximetry 94 01/25/23 20:00 Oxygen Delivery Me thod Nasal Cannula 01/25/23 10:00 Oxygen Flow Rate 2 01/25/23 10:00 MDM - Weakness Medical Decision Making 53-year-old lady presenting with bradycardia, weakness, hypotension. She is quite bradycardic and hypotensive on initial exam and appears symptomatic. This appears to be sinus rhythm. Atropine ordered without significant improvement. Vasopressors with dobutamine ordered with some improvement. Discussed with cardiology who will consult. EKG with no evidence of STEMI. Labs with no leukocytosis, somewhat baseline macrocytic anemia, normal platelet count. Viral panel with evidence of intravascular dehydration and mild elevation in creatinine. Lactic acid is elevated with improvement on repeat. Negative range normal troponin, BNP is improved from prior though still elevated. Chest x-ray with mild cardiomegaly and pulm vascular congestion, overall improved from prior, no lobar consolidation or pneumothorax. On serial reassessment patient improved with improvement in blood pressure. Patient also treated with antiemetic, calcium, fluids, analgesia, magnesium. Most likely etiology of patient symptoms is cardiogenic shock requiring v asopressors. She has a history of nonischemic cardiomyopathy. The results of ED evaluation were discussed with the patient including plan for admission due to requirement for level of care not available if discharged to prevent significant worsening/deterioration. Patient agreeable with plan. Discussed with hospitalist service who was agreeable to admit patient. Medical Records I reviewed the patient's medical records. Lab Data I reviewed the patient's lab results. 01/25/23 03:13 01/25/23 03:13 Radiology Impressions Chest X-Ray 01/22/23 14:19 IMPRESSION: 1. Single lead pacemaker on the left and mild cardiomegaly. 2. Mild pulmonary vascular congestion. No focal infiltrate or consolidation. 3. Interval improvement right costophrenic angle is suggested from prior exam. Laboratory Results WBC 7.0 10^3/uL (4.0-10.0) 01/22/23 16:15 RBC 2.79 10^6/uL (4.1-5.3) L 01/22/23 16:15 Hgb 9.0 g/dL (11.5-15.3) L 01/22/23 16:15 Hct 29.7 % (37.0-47.0) L 01/22/23 16:15 MCV 106.5 fl (81-99) H 01/22/23 16:15 MCH 32.3 pg (28.0-34.0) 01/22/23 16:15 MCHC 30.3 g/dL (30.0-36.0) 01/22/23 16:15 RDW 16.3 % (12.1-15.1) H 01/22/23 16:15 Plt Count 214 10^3/cmm (130-400) 01/22/23 16:15 MPV 11.6 fL (7.4-10.4) H 01/22/23 16:15 Neut % (Auto) 53.2 % 01/22/23 16:15 Lymph % (Auto) 35.6 % 01/22/23 16:15 [place] % (Auto) 8.7 % 01/22/23 16:15 Eos % (Auto) 0.9 % 01/22/23 16:15 Baso % (Auto) 1.0 % 01/22/23 16:15 Neut # (Auto) 3.72 10^3/uL (1.8-7.7) 01/22/23 16:15 Lymph # (Auto) 2.5 10^3/uL (0.8-4.8) 01/22/23 16:15 [place] # (Auto) 0.6 10^3/uL (0.2-0.9) 01/22/23 16:15 Eos # (Auto) 0.1 10^3/uL (0.0-0.8) 01/22/23 16:15 Baso # (Auto) 0.1 10^3/uL (0.0-0.1) 01/22/23 16:15 Nucleated RBC % (auto) 0 % 01/22/23 16:15 Nucleated RBCs # 0.0 /100WBC 01/22/23 16:15 Sodium 127 mmol/L (136-145) L 01/22/23 16:15 Potassium 3.9 mmol/L (3.5-5.1) 01/22/23 16:15 Chloride 93 mmol/L (98-107) L 01/22/23 16:15 Carbon Dioxide 21 mmol/L (22-29) L 01/22/23 16:15 Anion Gap 16.9 (5-19) 01/22/23 16:15 BUN 18 mg/dL (6-20) 01/22/23 16:15 Creatinine 1.4 mg/dL (0.5-0.9) H 01/22/23 16:15 GFR Calculation 39.3 mL/min (90-130) L 01/22/23 16:15 Glucose 107 mg/dL (65-115) 01/22/23 16:15 Calculated Osmolality 266 mOsm/kg (285-295) L 01/22/23 16:15 Lactic Acid (Sepsis) 1.8 mmol/L (0.5-2.2) 01/22/23 01:12 Lactate 2.7 mmol/L (0.5-2.2) H 01/22/23 16:15 Calcium 8.4 mg/dL (8.5-10.5) L 01/22/23 16:15 Magnesium 1.6 mg/dL (1.7-2.3) L 01/22/23 16:15 Total Bilirubin 0.5 mg/dL (0.15-1.2) 01/22/23 16:15 AST 26 U/L (0-32) 01/22/23 16:15 ALT 22 U/L (0-33) 01/22/23 16:15 Alkaline Phosphatase 86 U/L (35-105) 01/22/23 16:15 Troponin T Baseline 18 ng/L (0-10) H 01/22/23 16:15 Troponin T 120 Minute 14.50 ng/L (0-10) H 01/22/23 18:09 Delta Troponin T -3.50 ABS# (0-10) L 01/22/23 18:09 C-Reactive Protein 8.8 mg/L (0.0-4.9) H 01/22/23 16:15 NT-Pro-B Natriuret Pep 60299 pg/mL (0-125) H 01/22/23 16:15 Total Protein 5.0 g/dL (6.6-8.7) L 01/22/23 16:15 Albumin 3.3 g/dL (3.5-5.2) L 01/22/23 16:15 Globulin 1.7 g/dL (1.3-4.6) 01/22/23 16:15 Procalcitonin 0.11 ng/mL (0-0.5) 01/22/23 16:15 TSH 20.64 uIU/mL (0.27-4.20) H 01/22/23 16:15 Critical Care Time Critical Care Time: Critical Care Time: Yes Total Critical Care Time: 45 Attestation: Due to a high probability of clinically significant, possibly life threatening deterioration, the patient required my highest level of attention and preparedness to intervene emergently and I personally spent this critical care time directly and personally managing the patient. This critical care time included obtaining a history; examining the patient; pulse oximetry; ordering and review of laboratory and imaging studies; arranging urgent treatment with development of a management plan; evaluation of patient's response to treatment; frequent reassessment; and, discussions with other providers as applicable. It was exclusive of separately billable procedures. Primary system involved is cardiac Discharge Plan Discharge Patient Disposition: Admitted As Inpatient Admit Provider: Aj Mendoza Clinical Impression: Cardiogenic shock, Anemia, Dehydration, Acidosis, lactic, Hypomagnesemia Condition: Stable Coding Level of Care Code ED Fire Alarm Mechanic for Wesley Herrera
--- NOTE | 2023-01-22 14:19 | XRR_ITS ---
PROCEDURE INFORMATION: Exam: XR Chest Exam date and time: 01/22/2023 2:56 PM Age: 53 years old Clinical indication: Pain; Chest pressure; Prior surgery; Additional info: Weakness, bradycardia TECHNIQUE: Imaging protocol: Radiologic exam of the chest. Views: 1 view. COMPARISON: CR (CHEST, ) 01/20/2023 6:45 PM FINDINGS: Tubes, catheters and devices: Single lead pacemaker on the left. Lungs: Mild pulmonary vascular congestion. No focal infiltrate or consolidation. Pleural spaces: Interval improvement small effusion right costophrenic angle is suggested from previous exam. Heart/Mediastinum: Mild cardiomegaly. Bones/joints: Visualized osseous structures show no acute abnormality. XR/XR chest 1V portable [id number] IMPRESSION: 1. Single lead pacemaker on the left and mild cardiomegaly. 2. Mild pulmonary vascular congestion. No focal infiltrate or consolidation. 3. Interval improvement right costophrenic angle is suggested from prior exam.
--- NOTE | 2023-01-22 14:20 | ECG_ITS ---
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 Measurements Intervals [place] Rate: 65 P: 42 MS: 176 QRS: -52 QRSD: 146 T: 130 QT: 471 QTc: 490 Interpretive Statements SINUS RHYTHM WITH OCCASIONAL VENTRICULAR PREMATURE COMPLEXES LEFT AXIS DEVIATION [QRS AXIS < -30] LEFT BUNDLE BRANCH BLOCK [120+ ms QRS DURATION, 80+ ms Q/S IN V1/V2, 85+ ms R IN I/aVL/V5/V6] Compared to ECG 01/20/2023 21:22:04 Ventricular premature complex(es) now present Left-axis deviation now present Electronically Signed On 01-22-2023 21:26:50 CDT by Pola Ferrera M.D. [id number]
[2023-01-22] MEDS: sodium chloride 0.9% 1,000 ML 999 ML IV (14:36)
[2023-01-22] MEDS: atropine 0.1 mg/mL Syr 10 mL 0.5 MG IVP (14:37)
[2023-01-22] MEDS: calcium gluconate 0.9% NaCL 1 GM/50 ML PREMIX IV (15:05)
--- NOTE | 2023-01-22 15:05 | PC.NURSE ---
assumed care of pt at this time.
[2023-01-22] MEDS: DOBUTamine drip 500 MG/250 ML PREMIX 10.21 MG IV (15:06)
[2023-01-22] MEDS: ondansetron 2 mg/ML SDV 2 mL 4 MG IVP ×2 (15:37→17:11)
--- NOTE | 2023-01-22 16:20 | ECG_ITS ---
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 Measurements Intervals [place] Rate: 72 P: 34 [place]: 178 QRS: -45 QRSD: 150 T: 110 QT: 473 QTc: 519 Interpretive Statements SINUS RHYTHM WITH OCCASIONAL VENTRICULAR PREMATURE COMPLEXES LEFT AXIS DEVIATION [QRS AXIS < -30] LEFT BUNDLE BRANCH BLOCK [120+ ms QRS DURATION, 80+ ms Q/S IN V1/V2, 85+ ms R IN I/aVL/V5/V6] Compared to ECG 01/22/2023 15:21:26 No significant changes Electronically Signed On 01-22-2023 21:27:42 CDT by Pola Ferrera M.D. [id number]
[2023-01-22 16:26] LABS: Basophils # 0.1 10^3/uL (0.0-0.1); Eosinophils # 0.1 10^3/uL (0.0-0.8); Eosinophils % 0.9 %; Hematocrit 29.7 % (37.0-47.0); Lymphocytes # 2.5 10^3/uL (0.8-4.8); Lymphocytes % 35.6 %; Mean Corpuscular HGB Conc 30.3 g/dL (30.0-36.0); Mean Corpuscular Hemoglobin 32.3 pg (28.0-34.0); Mean Corpuscular Volume 106.5 fl (81-99); Mean Platelet Volume 11.6 fL (7.4-10.4); Monocytes # 0.6 10^3/uL (0.2-0.9); Monocytes % 8.7 %; Neutrophils # 3.72 10^3/uL (1.8-7.7); Neutrophils % 53.2 %; Nucleated Red Blood Cells % 0 %; Platelet Count 214 10^3/cmm (130-400); Red Blood Count 2.79 10^6/uL (4.1-5.3); Red Cell Distribution Width 16.3 % (12.1-15.1)
[2023-01-22 16:44] LABS: Lactate (Lactic Acid level) 2.7 mmol/L (0.5-2.2)
[2023-01-22 16:46] LABS: Troponin(5th) Baseline 18 ng/L (0-10)
[2023-01-22 16:56] LABS: NT Pro B Type Natriuretic Pept 17866 pg/mL (0-125); Procalcitonin 0.11 ng/mL (0-0.5); Thyroid Stimulating Hormone 20.64 uIU/mL (0.27-4.20)
[2023-01-22 17:07] LABS: Alanine Aminotransferase 22 U/L (0-33); Albumin Level 3.3 g/dL (3.5-5.2); Alkaline Phosphatase 86 U/L (35-105); Anion Gap 16.9 (5-19); Aspartate Amino Transferase 26 U/L (0-32); Blood Urea Nitrogen 18 mg/dL (6-20); C Reactive Protein 8.8 mg/L (0.0-4.9); Calcium 8.4 mg/dL (8.5-10.5); Carbon Dioxide 21 mmol/L (22-29); Chloride 93 mmol/L (98-107); Globulin 1.7 g/dL (1.3-4.6); Glomerular Filtration Rate 39.3 mL/min (90-130); Glucose 107 mg/dL (65-115); Magnesium 1.6 mg/dL (1.7-2.3); Osmolality Calculated 266 mOsm/kg (285-295); Potassium 3.9 mmol/L (3.5-5.1); Sodium 127 mmol/L (136-145); Total Bilirubin 0.5 mg/dL (0.15-1.2)
[2023-01-22] MEDS: fentaNYL 50 mcg/mL INJ 2mL IVP ×3 (17:14→21:05)
[2023-01-22] MEDS: magnesium sulfate premix 2 GM/50 ML PIGGYBACK IV (17:37)
--- NOTE | 2023-01-22 17:41 | PM.HP ---
Providers/Chief Complaint Admitting Physician: Aj Mendoza MD Primary Care Provider: Mavis Peterson Chief Complaint: WEAKNESS; BRADYCARDIA; HYPOTENSION History of Present Illness Elena Pulliam is a 53 year old female with known ischemic cardiomyopathy,recent Rt upper extremity dvt, discharged on elquis, s/p left nephrostomy tube in place,HFrEF S/P AICD she was recently discharged from the hospital after being managed for multiple AICD discharge for V.Fib on po amidarone came in today with c/o generalized weakness as well as abnormal sensations in both the lower and upper extremities, felt pain like sensations, started today this morning, she attributed it to possible hypokalemia, she was also complaining of some epigastric discomfort When she arrived in the ER she was found to be severely hypotensive, for which she had to be started on dobutamine as well as Levophed, x-ray chest has shown: Mild pulmonary vascular congestion, patient is complaining of mild shortness of breath with exertion, denied any PND orthopnea, has denied any fever, cough, nausea vomiting. Pertinent labs: WBC 7, H&H 07/07 ,PLT : 214 , serum sodium 127, potassium 3.9, BUN 18 serum creatinine 1.4, serum lactic acid 2.7, serum magnesium 1.6, proBNP 91677, baseline troponin 18, TSH 20.04, procalcitonin 0.11 Review of Systems General: Reports: 10 or more systems reviewed and unremarkable except in HPI and below Const: Denies: fever(s), chills, body aches, change in appetite or diaphoresis Card: Reports: dyspnea on exertion; Denies: palpitations, edema, swelling of feet/ankles, orthopnea or leg pain with exertion Resp: Denies: dyspnea, productive cough, wheezing or pain on inspiration GI: Reports: abdominal pain; Denies: nausea, vomiting, diarrhea or constipation : Denies: flank pain Musc: Denies: back pain, extremity pain or extremity swelling Neuro: Denies: headache(s), difficulty walking or confusion Medications/Allergies Home Medications Medication Instructions Recorded Confirmed Last Taken Type citalopram 40 mg tablet (Celexa) 40 mg PO QPM 01/31/20 01/20/23 01/09/23 History zolpidem 10 mg tablet 10 mg PO BEDTIME 01/31/20 01/20/23 01/09/23 History aspirin 81 mg tablet,delayed 162 mg PO QAM 01/20/21 01/20/23 01/09/23 History release (Adult Low Dose Aspirin) cyanocobalamin (vitamin B-12) 50 50 mcg PO QAM 11/30/21 01/20/23 01/09/23 History mcg tablet (Vitamin B-12) montelukast 10 mg tablet 10 mg PO QAM 11/30/21 01/20/23 01/09/23 History acetaminophen 500 mg tablet 1,000 mg PO Q6H PRN Pain 10/26/22 01/20/23 Unknown History omeprazole 20 mg capsule,delayed 20 mg PO BID 10/26/22 01/20/23 01/09/23 History release carvedilol 6.25 mg tablet 6.25 mg PO BID #180 tabs 10/28/22 01/20/23 01/09/23 Rx albuterol sulfate 90 mcg/actuation 2 puff inhalation QID PRN 11/10/22 01/20/23 Unknown History aerosol inhaler Shortness Of Breath nitroglycerin 0.4 mg sublingual 0.4 mg sublingual Q5M PRN Chest 11/10/22 01/20/23 01/08/23 History tablet (Nitrostat) Pain midodrine 5 mg tablet 5 mg PO BID PRN Sbp less than 100 01/02/23 01/20/23 Unknown Rx #20 tabs furosemide 40 mg tablet (Lasix) 40 mg PO QAM 01/08/23 01/20/23 01/09/23 History magnesium 200 mg tablet 200 mg PO QAM 01/08/23 01/20/23 01/09/23 History potassium chloride 10 mEq 20 meq PO QAM 01/08/23 01/20/23 01/09/23 History tablet,extended release spironolactone 25 mg tablet 25 mg PO QAM 01/08/23 01/20/23 01/09/23 History polyethylene glycol 3350 17 17 g PO DAILY 01/10/23 01/20/23 01/09/23 History gram/dose oral powder (Miralax) sacubitril 97 mg-valsartan 103 mg 1 tab PO BID 01/10/23 01/20/23 Unknown History tablet (Entresto) amiodarone 400 mg tablet 400 mg PO BID 5 days #10 tabs 01/18/23 01/20/23 01/20/23 Rx amiodarone 400 mg tablet 400 mg PO DAILY 30 days #30 tabs 01/18/23 01/20/23 Unknown Rx apixaban 5 mg tablet (Eliquis) See Rx Instructions .Route .COMPLEX 01/19/23 01/20/23 01/20/23 History hydrocodone 5 mg-acetaminophen 325 1 tab PO Q8H PRN pain #7 tabs 01/20/23 Unknown Rx mg tablet levofloxacin 500 mg tablet 500 mg PO DAILY 7 days #7 tabs 01/20/23 Unknown Rx ondansetron 4 mg disintegrating 4 mg PO Q6H PRN nausea and 01/20/23 Unknown Rx tablet vomiting #14 tabs Allergies Allergy/AdvReac Type Severity Reaction Status Date / Time egg Allergy unknown Verified 01/22/23 14:25 PFSH Acute PFSH: Medical History Acute hypokalemia Acute on chronic systolic heart failure AICD discharge GERRI (acute kidney injury) Anemia Cardiogenic shock Chest pain Chest pain CHF (congestive heart failure) Chronic systolic (congestive) heart failure CKD (chronic kidney disease) Closed intertrochanteric fracture of left hip Defibrillator discharge Encounter for testing following appropriate discharge of implantable cardioverter-defibrillator (ICD) History of recurrent UTIs History of TIA (transient ischemic attack) HTN (hypertension) Hydronephrosis, left Hypertension Hypokalemia Hypokalemia ICD (implantable cardioverter-defibrillator) in place Idiopathic ventricular fibrillation Liver mass Macrocytic anemia Mass of right lobe of liver ~3.5 x 4 cm, indeterminant, hypodense, first noted 11/2021 Nicotine dependence, cigarettes, uncomplicated Non-ischemic cardiomyopathy Nonischemic cardiomyopathy Obstructive pyelonephritis (~11/2021) Oliguria Renal atrophy, left Syncope Urolithiasis Multi stone former. Complicated by at least 1 episode of obstructive pyelonephritis. Multiple procedures required to treat Ventricular tachycardia Weakness Surgical History Nephrostomy status S/P ureteral stent placement (~11/2021) Status post cholecystectomy Status post placement of cardiac pacemaker Family History Father , AT AGE 77 CAD (coronary artery disease) Cancer lung cancer Mother , AT AGE 60 Cancer OVARIAN Denies family history of Clotting disorder Anesthesia complication Bleeding disorder Social History Smoking and tobacco status: current every day smoker cigarettes Packs smoked per day: 0.5 Years cigarettes smoked: 45 Second hand smoke exposure: Yes Alcohol intake: current Lives independently: Yes Marital status: service: No Current occupational status: disabled Current gender identity: Female Vitals/I&O/Wt Last Vital Signs Temp 96.8 F L 01/22/23 15:39 Pulse 53 L 01/22/23 15:05 Resp 20 H 01/22/23 17:14 BP 72/55 01/22/23 15:05 Pulse Ox 99 01/22/23 17:14 O2 Del Method Room Air 01/22/23 14:10 Weight last 48 hrs Weight 68.039 kg Physical Exam Const: COMMON NORMALS: patient oriented x3 HENMT: COMMON NORMALS: normocephalic and atraumatic HEAD & SCALP: normocephalic and atraumatic Resp: COMMON NORMALS: normal respiratory effort, No retractions, No use of accessory muscles and clear to auscultation bilaterally EFFORT & INSPECTION: Yes symmetric chest movement AUSCULTATION: clear to auscultation bilaterally Cardio: COMMON NORMALS: regular rate, regular rhythm, S1 normal heart sound present, S2 normal heart sound present, No gallops present (Cardio), No murmurs present (Cardio), No rub (Cardio) and Peripheral pulses 2+ throughout RATE: regular rate RHYTHM: regular rhythm HEART SOUNDS: S1 normal heart sound present and S2 normal heart sound present PERIPHERAL PULSES: Peripheral pulses 2+ throughout GI: COMMON NORMALS: Normal to inspection, nondistended, normoactive bowel sounds present, Soft to palpation, non-tender, No hepatosplenomegaly present and no masses AUSCULTATION: Yes normoactive bowel sounds PALPATION: Yes Soft to palpation and Yes No hepatosplenomegaly present RECTAL EXAM: deferred Extremity: COMMON NORMALS: no clubbing, cyanosis or edema and no pedal edema Neuro: COMMON NORMALS: patient oriented x3 Data 01/22/23 16:15 01/22/23 16:15 A&P Assessment and plan (1) Cardiogenic shock: (2) Hypomagnesemia: (3) Urolithiasis: (4) Left nephrolithiasis: (5) Nephrostomy status: Plan 53 year old female with known ischemic cardiomyopathy,recent Rt upper extremity dvt, discharged on elquis, s/p left nephrostomy tube in place,HFrEF S/P AICD she was recently discharged from the hospital after being managed for multiple AICD discharge for V.Fib on po amidarone came in today with c/o generalized weakness as well as abnormal sensations in both the lower and upper extremities, felt pin like sensations, started today this morning, she attributed it to possible hypokalemia, likely secondary to hyponatremia she was also complaining of some epigastric discomfort,When she arrived in the ER she was found to be severely hypotensive, for which she had to be started on dobutamine as well as Levophed. Assessment: Shock: Possibly cardiogenic: Patient has known history of ischemic cardiomyopathy, recent cardiac cath, with no new concerning lesion, most recent 2D echo done during last hospital stay, had shown an EF of 15 to 20%With LV wall hypokinesis. Currently she is on dobutamine as well as Levophed, and is maintaining a decent MAP.Will titrate to maintain a MAP greater than 60. Follow blood culture, urine culture.Repeat lactic acid: Currently slightly elevated lactic acid is likely secondary to acute hypotension.Continue telemetry monitoring, monitor electrolytes, keep potassium above 4 and magnesium of 2, IV magnesium replacement has been done in the ER. Cardiology on board. Recent history of V-fib with AICD discharge: Currently on amiodarone PO 400 mg daily HFrEF: Plan is 1 Recent history of right upper extremity DVT: Was discharged home on Eliquis Continue Lovenox subcu therapeutic for now S/p left nephrostomy tube: For left nephrolithiasis/urolithiasis; follow urologist at [facility]. Has a recent appointment, according to the patient the nephrostomy tube was snagged little recently, and since then she is noticing some hematuria in the bag which is now clearing. Hypomagnesemia: Monitor and replace magnesium Hyponatremia: Serum sodium on admission is 127 Monitor and replace serum potassium CODE STATUS: Full code DVT prophylaxis: Therapeutic anticoagulation with Lovenox will suffice for that. Attestations Medical Necessity Statement*: Patient is in hospital for management of shock.Anticipated length of stay greater than 2 midnights. Coding Level of Care Code Critical Care >/= 30 minutes Diagnoses Cardiogenic shock R57.0 Hypomagnesemia E83.42 Urolithiasis N20.9 Left nephrolithiasis N20.0 Nephrostomy status Z93.6
--- NOTE | 2023-01-22 17:58 | PC.NURSE ---
Report called to BLADE Valencia in ICU
[2023-01-22] MEDS: enoxaparin 80 mg/0.8 mL Syringe 70 MG SUBCUT (18:32)
[2023-01-22] MEDS: sodium chloride 0.9% 500 ML IV (18:32)
[2023-01-22] MEDS: diphenhydrAMINE 50 mg/mL SDV 1mL 12.5 MG IVP (19:43)
--- NOTE | 2023-01-22 20:20 | ECG_ITS ---
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 Measurements Intervals [place] Rate: 52 P: 23 [place]: 176 QRS: -44 QRSD: 142 T: 209 QT: 498 QTc: 467 Interpretive Statements SINUS BRADYCARDIA WITH OCCASIONAL VENTRICULAR PREMATURE COMPLEXES LEFT AXIS DEVIATION [QRS AXIS < -30] LEFT BUNDLE BRANCH BLOCK [120+ ms QRS DURATION, 80+ ms Q/S IN V1/V2, 85+ ms R IN I/aVL/V5/V6] INTERPRETATION BASED ON A DEFAULT AGE OF 40 YEARS Compared to ECG 01/20/2023 21:22:04 Ventricular premature complex(es) now present Left-axis deviation now present Sinus rhythm no longer present Electronically Signed On 01-22-2023 21:28:10 CDT by Pola Ferrera M.D. [id number]
[2023-01-22] MEDS: zolpidem 5 mg Tablet 10 MG PO (21:03)
[2023-01-22] MEDS: citalopram 20 mg Tablet 40 MG PO (21:03)
[2023-01-22 22:31] LABS: Lactic Sepsis W/Reflex 2.2 mmol/L (0.5-2.2)
[2023-01-22 23:38] LABS: Reflex Lactate Order REFLEX LACTIC ORDERD
[2023-01-23] VITALS (273 sets, daily range): BP systolic 88–144; BP diastolic 52–91; PULSE 55–110; RESP 12–32; TEMP 36.5; O2SAT 77–100
[2023-01-23] MEDS: fentaNYL 50 mcg/mL INJ 2mL IVP ×5 (01:16→13:36)
[2023-01-23 01:43] LABS: Basophils # 0.1 10^3/uL (0.0-0.1); Basophils % 1.4 %; Eosinophils # 0.1 10^3/uL (0.0-0.8); Eosinophils % 1.1 %; Hematocrit 29.4 % (37.0-47.0); Hemoglobin 9.1 g/dL (11.5-15.3); Lymphocytes # 2.2 10^3/uL (0.8-4.8); Lymphocytes % 30.3 %; Mean Corpuscular Hemoglobin 32.9 pg (28.0-34.0); Mean Corpuscular Volume 106.1 fl (81-99); Mean Platelet Volume 11.5 fL (7.4-10.4); Monocytes # 0.7 10^3/uL (0.2-0.9); Monocytes % 9.4 %; Neutrophils # 4.12 10^3/uL (1.8-7.7); Neutrophils % 57.1 %; Nucleated Red Blood Cells % 0 %; Platelet Count 201 10^3/cmm (130-400); Red Blood Count 2.77 10^6/uL (4.1-5.3); Red Cell Distribution Width 16.2 % (12.1-15.1); White Blood Count 7.2 10^3/uL (4.0-10.0)
[2023-01-23 01:56] LABS: Lactic Acid level (Lactate) 1.8 mmol/L (0.5-2.2)
[2023-01-23 02:10] LABS: Procalcitonin 0.12 ng/mL (0-0.5)
[2023-01-23 02:21] LABS: Alanine Aminotransferase 22 U/L (0-33); Albumin Level 3.1 g/dL (3.5-5.2); Alkaline Phosphatase 77 U/L (35-105); Anion Gap 16.5 (5-19); Aspartate Amino Transferase 24 U/L (0-32); Blood Urea Nitrogen 16 mg/dL (6-20); Calcium 8.4 mg/dL (8.5-10.5); Carbon Dioxide 24 mmol/L (22-29); Chloride 97 mmol/L (98-107); Glomerular Filtration Rate 33.7 mL/min (90-130); Glucose 74 mg/dL (65-115); Magnesium 1.9 mg/dL (1.7-2.3); Osmolality Calculated 278 mOsm/kg (285-295); Potassium 3.5 mmol/L (3.5-5.1); Sodium 134 mmol/L (136-145); Total Bilirubin 0.5 mg/dL (0.15-1.2); Total Protein 5.1 g/dL (6.6-8.7)
[2023-01-23 02:33] LABS: Thyroid Stimulating Hormone 18.28 uIU/mL (0.27-4.20)
[2023-01-23] MEDS: HYDROcodone-acetaminophen 5-325 mg Tablet 1 TAB PO ×2 (02:38→09:03)
[2023-01-23] MEDS: enoxaparin 80 mg/0.8 mL Syringe 70 MG SUBCUT ×2 (05:13→17:37)
[2023-01-23] MEDS: montelukast sodium 10 mg Tablet PO (05:13)
--- NOTE | 2023-01-23 06:57 | P.CONIM_ITS ---
Providers/Reason For Consult Consulting Physician/Specialty*: Pola Ferrera MD/ Cardiology Reason for Consult*: Cardiogenic shock Requesting Physician: Dr Borden Attending Physician: Beryl Dejesus MD Primary Care Provider: Mavis Peterson History of Present Illness History of Present Illness Elena Pulliam is a 53 year old female with past medical history of nonischemic cardiomyopathy, recent right upper extremity DVT, recent admission for cardiogenic shock, HFrEF, who has multiple recurrent admissions with hyperte nsion, chest pain. She came to the hospital again as was feeling very weak and had tingling sensation extremities. EKG showed sinus bradycardia with a heart rate of 54 bpm and no ischemic changes. She was very hypotensive and was started on dobutamine and Levophed. This morning she is feeling better. She is on dobutamine drip. Blood pressure is normal. Her presentation lactate level was 2.7. She has GERRI with creatinine of 1.6. Review of Systems General: Reports: 10 or more systems reviewed and unremarkable except in HPI and below Const: Denies: fever(s), chills, body aches, change in appetite or diaphoresis Card: Reports: dyspnea on exertion; Denies: palpitations, edema, swelling of feet/ankles, orthopnea or leg pain with exertion Resp: Denies: dyspnea, productive cough, wheezing or pain on inspiration GI: Reports: abdominal pain; Denies: nausea, vomiting, diarrhea or constipation : Denies: flank pain Musc: Denies: back pain, extremity pain or extremity swelling Neuro: Denies: headache(s), difficulty walking or confusion Medications/Allergies Home Medications Medication Instructions Recorded Confirmed Last Taken Type citalopram 40 mg tablet (Celexa) 40 mg PO QPM 01/31/20 01/23/23 01/09/23 History zolpidem 10 mg tablet 10 mg PO BEDTIME 01/31/20 01/23/23 01/09/23 History aspirin 81 mg tablet,delayed 162 mg PO QAM 01/20/21 01/23/23 01/09/23 History release (Adult Low Dose Aspirin) cyanocobalamin (vitamin B-12) 50 50 mcg PO QAM 11/30/21 01/23/23 01/09/23 History mcg tablet (Vitamin B-12) montelukast 10 mg tablet 10 mg PO QAM 11/30/21 01/23/23 01/09/23 History acetaminophen 500 mg tablet 1,000 mg PO Q6H PRN Pain 10/26/22 01/23/23 Unknown History omeprazole 20 mg capsule,delayed 20 mg PO BID 10/26/22 01/23/23 01/09/23 History release carvedilol 6.25 mg tablet 6.25 mg PO BID #180 tabs 10/28/22 01/23/23 01/09/23 Rx albuterol sulfate 90 mcg/actuation 2 puff inhalation QID PRN 11/10/22 01/23/23 Unknown History aerosol inhaler Shortness Of Breath nitroglycerin 0.4 mg sublingual 0.4 mg sublingual Q5M PRN Chest 11/10/22 01/23/23 01/08/23 History tablet (Nitrostat) Pain midodrine 5 mg tablet 5 mg PO BID PRN Sbp less than 100 01/02/23 01/23/23 Unknown Rx #20 tabs furosemide 40 mg tablet (Lasix) 40 mg PO QAM 01/08/23 01/23/23 01/09/23 History magnesium 200 mg tablet 200 mg PO QAM 01/08/23 01/23/23 01/09/23 History potassium chloride 10 mEq 20 meq PO QAM 01/08/23 01/23/23 01/09/23 History tablet,extended release spironolactone 25 mg tablet 25 mg PO QAM 01/08/23 01/23/23 01/09/23 History polyethylene glycol 3350 17 17 g PO DAILY 01/10/23 01/23/23 01/09/23 History gram/dose oral powder (Miralax) sacubitril 97 mg-valsartan 103 mg 1 tab PO BID 01/10/23 01/23/23 Unknown History tablet (Entresto) amiodarone 400 mg tablet 400 mg PO DAILY 30 days #30 tabs 01/18/23 01/23/23 Unknown Rx apixaban 5 mg tablet (Eliquis) See Rx Instructions .Route .COMPLEX 01/19/23 01/23/23 01/20/23 History hydrocodone 5 mg-acetaminophen 325 1 tab PO Q8H PRN pain #7 tabs 01/20/23 01/23/23 Unknown Rx mg tablet levofloxacin 500 mg tablet 500 mg PO DAILY 7 days #7 tabs 01/20/23 01/23/23 Unknown Rx ondansetron 4 mg disintegrating 4 mg PO Q6H PRN nausea and 01/20/23 01/23/23 Unknown Rx tablet vomiting #14 tabs Allergies Allergy/AdvReac Type Severity Reaction Status Date / Time egg Allergy unknown Verified 01/22/23 14:25 Current Medications Generic Name Dose Route Start Last Admin Trade Name Freq PRN Reason Stop Dose Admin Hydrocodone Bitart/Acetaminophen 1 tab 01/22/23 17:38 01/23/23 02:38 Hydrocodone-Acetaminophen 5-325 Mg Tablet PO 1 tab Q8H PRN Administration pain Citalopram Hydrobromide 40 mg 01/22/23 21:00 01/22/23 21:03 Citalopram 20 Mg Tablet PO 40 mg BEDTIME AURE Administration Enoxaparin Sodium 70 mg 01/22/23 18:00 01/23/23 05:13 Enoxaparin 80 Mg/0.8 Ml Syringe SUBCUT 70 mg Q12H AURE Administration Fentanyl 50 mcg 01/22/23 16:55 01/23/23 02:38 Fentanyl 50 Mcg/Ml Inj 2ml IVP 50 mcg Q30M PRN Administration pain Norepinephrine Bitartrate 4 mg 254 mls @ 0 mls/hr 01/22/23 14:45 01/23/23 03:05 / Dextrose IV 0 mcg/min .Q0M AURE 0 mls/hr Titration Protocol Per Protocol Dobutamine HCl/Dextrose 500 mg in 250 mls @ 0 mls/hr 01/22/23 14:45 01/22/23 15:06 Dobutamine Drip IV 5 mcg/kg/min .Q0M AURE 10.21 mls/hr Administration Protocol Per Protocol Montelukast Sodium 10 mg 01/23/23 06:00 01/23/23 05:13 Montelukast Sodium 10 Mg Tablet PO 10 mg QAM AURE Administration Zolpidem Tartrate 10 mg 01/22/23 21:00 01/22/23 21:03 Zolpidem 5 Mg Tablet PO 10 mg BEDTIME AURE Administration PFSH Acute PFSH: Medical History (Updated 01/24/23 @ 07:50 by Pola Ferrera M.D) Acute hypokalemia Acute on chronic systolic heart failure AICD discharge GERRI (acute kidney injury) Anemia Cardiogenic shock Chest pain Chest pain CHF (congestive heart failure) Chronic systolic (congestive) heart failure CKD (chronic kidney disease) Closed intertrochanteric fracture of left hip Defibrillator discharge Encounter for testing following appropriate discharge of implantable cardioverter-defibrillator (ICD) History of recurrent UTIs History of TIA (transient ischemic attack) HTN (hypertension) Hydronephrosis, left Hypertension Hypokalemia Hypokalemia ICD (implantable cardioverter-defibrillator) in place Idiopathic ventricular fibrillation Liver mass Macrocytic anemia Mass of right lobe of liver ~3.5 x 4 cm, indeterminant, hypodense, first noted 11/2021 Nicotine dependence, cigarettes, uncomplicated Non-ischemic cardiomyopathy Nonischemic cardiomyopathy Obstructive pyelonephritis (~11/2021) Oliguria Renal atrophy, left Syncope Urolithiasis Multi stone former. Complicated by at least 1 episode of obstructive pyelonephritis. Multiple procedures required to treat Ventricular tachycardia Weakness Surgical History Nephrostomy status S/P ureteral stent placement (~11/2021) Status post cholecystectomy Status post placement of cardiac pacemaker Family History Father , AT AGE 77 CAD (coronary artery disease) Cancer lung cancer Mother , AT AGE 60 Cancer OVARIAN Denies family history of Clotting disorder Anesthesia complication Bleeding disorder Social History Smoking and tobacco status: current every day smoker cigarettes Packs smoked per day: 0.5 Years cigarettes smoked: 45 Second hand smoke exposure: Yes Alcohol intake: current Lives independently: Yes Marital status: service: No Current occupational status: disabled Current gender identity: Female Vitals/I&O/Wt Last Vital Signs Temp 97.8 F 01/22/23 18:32 Pulse 78 01/23/23 05:32 Resp 16 01/23/23 04:10 BP 115/52 01/23/23 04:10 Pulse Ox 96 01/23/23 04:10 O2 Del Method Room Air 01/22/23 19:00 04/16/23 04/16/23 04/17/23 14:59 22:59 06:59 Intake Total 1839 90.551 / 1930.551 Balance 1839 90.551 / 1930.551 Weight last 48 hrs Weight 160 lb Weight 150 lb Physical Exam Narrative: GENERAL: Patient is alert, awake and oriented x3. [] NECK: No jugular vein distension. [] HEENT: No cyanosis. No icterus. No pallor. [] HEART: Regular S1 and S2. No murmur, rub or gallop. [] LUNGS: Clear to auscultate bilaterally. [] CENTRAL NERVOUS SYSTEM: Grossly nonfocal. [] EXTREMITIES: Lower extremities with 1+ edema bilaterally. Data 01/24/23 02:46 01/24/23 02:46 Micro: Microbiology 01/22/23 21:34 Blood Culture - Preliminary Blood SPECIMEN COLLECTED 01/22/23 21:30 Blood Culture - Preliminary Blood SPECIMEN COLLECTED A&P Assessment and plan (1) Cardiogenic shock: (2) Anemia: (3) GERRI (acute kidney injury): (4) Non-ischemic cardiomyopathy: Plan Patient has nonischemic cardiomyopathy and had a recent cardiac cath. She has multiple ER visits and admissions recently. Had cardiogenic shock earlier this month. Again coming in with cardiogenic shock. Continue dobutamine drip. Levophed as needed for maintaining MAP above 65. Given multiple admissions to hospital with recurrent cardiogenic shock, may transfer to tertiary care center for advanced heart failure assessment as she may need home inotropes vs transplant/lvad assessment. Close monitoring of renal function. Continue amiodarone. Thank you for involving us with care of this patient. We will continue to follow. Please call with questions. Consult Attestations Medical Necessity Statement: Care expected to cross 2 midnights. Coding Level of Care Code Acute Code for [facility] Fwd Diagnoses Cardiogenic shock R57.0 Anemia D64.9 GERRI (acute kidney injury) N17.9 Non-ischemic cardiomyopathy I42.8
[2023-01-23] MEDS: amiodarone 200 mg Tablet 400 MG PO (08:45)
[2023-01-23] MEDS: diphenhydrAMINE 25 mg Capsule PO (10:52)
[2023-01-23] MEDS: ALPRAZolam 0.5 mg Tablet PO ×2 (15:43→20:59)
[2023-01-23] MEDS: fentaNYL 25 mcg Patch 1 PATCH TRANSDERMA (15:43)
[2023-01-23] MEDS: DOBUTamine drip 500 MG/250 ML PREMIX 10.21 MG IV (15:44)
[2023-01-23] MEDS: morphine 4 mg/mL SDV 1 mL 2 MG IVP ×2 (17:24→20:59)
[2023-01-23 17:57] LABS: Glucose Point of Care 105 mg/dL (70-110)
--- NOTE | 2023-01-23 18:52 | P.PN_ITS ---
Subjective Subjective: Continues to be on dobutamine infusion at 5 mics. Creatinine stable. Clinically euvolemic. Continues to complain of chest pain, tearful, crying as she hurts all over particularly in the chest. Medications: Reviewed: Yes Vitals/I&O/Wt Last Vital Signs Temp 97.7 F 01/23/23 08:45 Pulse 110 H 01/23/23 16:25 Resp 18 01/23/23 17:24 BP 130/83 01/23/23 16:25 Pulse Ox 93 01/23/23 16:25 O2 Del Method Room Air 01/23/23 13:53 01/23/23 01/23/23 01/23/23 06:59 14:59 22:59 Intake Total 90.551 / 1930.551 250 / 250 Balance 90.551 / 1930.551 250 / 250 Weight last 48 hrs Weight 72.575 kg Weight 68.039 kg Physical Exam Narrative: General: No acute distress, AO x3 HEENT: PERRLA, pupils bilaterally equal and reactive, pallors not present Chest: Normal vesicular breath sounds, no added sounds, equal good air entry bilaterally CVS: S1-S2 regular, no murmurs, no tachycardia, no gallops, no rubs Abdomen: Soft, nontender, no organomegaly, bowel sounds present Neuro: No focal deficits, no facial deformity, AO x3, power 5/5 in all limbs Data 01/23/23 01:12 01/23/23 01:12 Micro: Microbiology 01/22/23 21:34 Blood Culture - Preliminary Blood SPECIMEN COLLECTED 01/22/23 21:30 Blood Culture - Preliminary Blood SPECIMEN COLLECTED A&P Assessment and plan (1) Cardiogenic shock: (2) Hypomagnesemia: (3) Urolithiasis: (4) Left nephrolithiasis: (5) Nephrostomy status: Plan 53 year old female with known ischemic cardiomyopathy,recent Rt upper extremity dvt, discharged on elquis, s/p left nephrostomy tube in place,HFrEF S/P AICD she was recently discharged from the hospital after being managed for multiple AICD discharge for V.Fib on po amidarone came in today with c/o generalized weakness as well as abnormal sensations in both the lower and upper extremities, felt pin like sensations, started today this morning, she attributed it to possible hypokalemia, likely secondary to hyponatremia she was also complaining of some epigastric discomfort,When she arrived in the ER she was found to be severely hypotensive, for which she had to be started on dobutamine as well as Levophed. Assessment: Cardiogenic shock: Patient has known history of ischemic cardiomyopathy, recent cardiac cath, with no new concerning lesion, most recent 2D echo done during last hospital stay, had shown an EF of 15 to 20%With LV wall hypokinesis. Currently she is on [facility] at [facility] This is patient's third hospital admission apart from the ER visits in close succession for cardiogenic shock, ongoing chest pain. At this point in time patient would likely benefit from transfer to a higher center with heart failure focus to assess for possibility of being on milrinone, dobutamine drips, possible LVAD. Patient is currently established at [facility] for other specialties, will attempt to call [facility] first for transfer Recent history of V-fib with AICD discharge: Currently on amiodarone PO 400 mg daily, no active issues HFrEF: Currently euvolemic. # Complains of persistent ongoing chest pain: As needed morphine 2 mg every 6 hours, discontinue fentanyl currently ordered at 50 mics every 30 minutes. Add fentanyl patch of 25 mark. Closely monitor GCS. Recent history of right upper extremity DVT: Was discharged home on Eliquis Continue Lovenox subcu therapeutic for now S/p left nephrostomy tube: For left nephrolithiasis/urolithiasis; follow urologist at [facility]. Has a recent appointment, according to the patient the nephrostomy tube was snagged little recently, and since then she is noticing some hematuria in the bag which is now clearing. Hypomagnesemia: Monitor and replace magnesium Hyponatremia: Serum sodium on admission is 127 Monitor and replace serum potassium CODE STATUS: Full code DVT prophylaxis: Therapeutic anticoagulation with Lovenox will suffice for that. Attestations Medical Necessity Statement*: Heart failure with cardiogenic shock, currently on dobutamine infusion, need to continue the same, likely transfer to higher center with heart failure focus given recurrent admissions for the same. Coding Level of Care Code Critical Care >/= 30 minutes Diagnoses Cardiogenic shock R57.0 Hypomagnesemia E83.42 Urolithiasis N20.9 Left nephrolithiasis N20.0 Nephrostomy status Z93.6
[2023-01-23] MEDS: zolpidem 5 mg Tablet 10 MG PO (20:59)
[2023-01-23] MEDS: citalopram 20 mg Tablet 40 MG PO (20:59)
[2023-01-23] MEDS: ondansetron 2 mg/ML SDV 2 mL 4 MG IVP (22:12)
[2023-01-24] VITALS (250 sets, daily range): BP systolic 111–145; BP diastolic 50–102; PULSE 60–127; RESP 9–29; TEMP 36.6–37.1; O2SAT 81–100
[2023-01-24] MEDS: morphine 4 mg/mL SDV 1 mL 2 MG IVP ×4 (01:36→20:44)
[2023-01-24 04:05] LABS: Basophils # 0.1 10^3/uL (0.0-0.1); Basophils % 0.8 %; Eosinophils # 0.1 10^3/uL (0.0-0.8); Eosinophils % 1.6 %; Hematocrit 30.9 % (37.0-47.0); Lymphocytes # 1.7 10^3/uL (0.8-4.8); Lymphocytes % 26.5 %; Mean Corpuscular HGB Conc 29.1 g/dL (30.0-36.0); Mean Corpuscular Hemoglobin 32.3 pg (28.0-34.0); Mean Corpuscular Volume 110.8 fl (81-99); Mean Platelet Volume 11.9 fL (7.4-10.4); Monocytes # 0.6 10^3/uL (0.2-0.9); Monocytes % 9.9 %; Neutrophils # 3.92 10^3/uL (1.8-7.7); Neutrophils % 60.7 %; Nucleated Red Blood Cells % 0 %; Platelet Count 207 10^3/cmm (130-400); Red Blood Count 2.79 10^6/uL (4.1-5.3); Red Cell Distribution Width 16.3 % (12.1-15.1); White Blood Count 6.5 10^3/uL (4.0-10.0)
[2023-01-24 04:26] LABS: Alanine Aminotransferase 22 U/L (0-33); Albumin Level 3.2 g/dL (3.5-5.2); Alkaline Phosphatase 76 U/L (35-105); Anion Gap 15.8 (5-19); Aspartate Amino Transferase 25 U/L (0-32); Blood Urea Nitrogen 15 mg/dL (6-20); Calcium 8.4 mg/dL (8.5-10.5); Carbon Dioxide 25 mmol/L (22-29); Chloride 99 mmol/L (98-107); Globulin 2.1 g/dL (1.3-4.6); Glomerular Filtration Rate 36.3 mL/min (90-130); Glucose 61 mg/dL (65-115); Osmolality Calculated 281 mOsm/kg (285-295); Potassium 3.8 mmol/L (3.5-5.1); Sodium 136 mmol/L (136-145); Total Bilirubin 0.5 mg/dL (0.15-1.2); Total Protein 5.3 g/dL (6.6-8.7)
[2023-01-24] MEDS: montelukast sodium 10 mg Tablet PO (05:30)
[2023-01-24] MEDS: enoxaparin 80 mg/0.8 mL Syringe 70 MG SUBCUT ×2 (05:30→17:19)
[2023-01-24] MEDS: amiodarone 200 mg Tablet 400 MG PO (09:01)
[2023-01-24] MEDS: HYDROcodone-acetaminophen 5-325 mg Tablet 1 TAB PO (09:12)
[2023-01-24] MEDS: ALPRAZolam 0.5 mg Tablet PO ×2 (09:12→18:52)
[2023-01-24] MEDS: ondansetron 2 mg/ML SDV 2 mL 4 MG IVP ×2 (11:01→20:50)
[2023-01-24 11:29] LABS: Glucose Point of Care 121 mg/dL (70-110)
[2023-01-24] MEDS: DOBUTamine drip 500 MG/250 ML PREMIX 10.21 MG IV (15:23)
--- NOTE | 2023-01-24 19:38 | PM.PN ---
Subjective Subjective: The patient he is admitted to the hospital with the hypotension and CHF. She was on Levophed and is currently off. She was started on Dobutrex. Vital signs are currently stable. Medications: Medication Review Details: Current Medications Acetaminophen (Acetaminophen 325 Mg Tablet) 650 mg PO Q6H PRN PRN Reason: Mild/Mod Pain Or Temp >/= 101 Hydrocodone Bitart/Acetaminophen (Hydrocodone-Acetaminophen 5-325 Mg Tablet) 1 tab PO Q8H PRN PRN Reason: pain Last Admin: 01/24/23 09:12 Dose: 1 tab Alprazolam (Alprazolam 0.5 Mg Tablet) 0.5 mg PO TID PRN PRN Reason: ANXIETY Last Admin: 01/24/23 18:52 Dose: 0.5 mg Amiodarone HCl (Amiodarone 200 Mg Tablet) 400 mg PO DAILY AURE Last Admin: 01/24/23 09:01 Dose: 400 mg Bisacodyl (Bisacodyl 5 Mg Tablet) 10 mg PO DAILY PRN; Protocol PRN Reason: Constipation (see protocol) Citalopram Hydrobromide (Citalopram 20 Mg Tablet) 40 mg PO BEDTIME AURE Last Admin: 01/23/23 20:59 Dose: 40 mg Diphenhydramine HCl (Diphenhydramine 25 Mg Capsule) 25 mg PO Q6H PRN PRN Reason: ITCHING Last Admin: 01/23/23 10:52 Dose: 25 mg Enoxaparin Sodium (Enoxaparin 80 Mg/0.8 Ml Syringe) 70 mg SUBCUT Q12H AURE Last Admin: 01/24/23 17:19 Dose: 70 mg Fentanyl (Fentanyl 25 Mcg Patch) 1 patch TRANSDERMA Q72H AURE Last Admin: 01/23/23 15:43 Dose: 1 patch Norepinephrine Bitartrate 4 mg (/ Dextrose) 254 mls @ 0 mls/hr IV .Q0M AURE; Protocol Last Titration: 01/23/23 03:05 Dose: 0 mcg/min, 0 mls/hr Dobutamine HCl/Dextrose (Dobutamine Drip) 500 mg in 250 mls @ 0 mls/hr IV .Q0M AURE; Protocol Last Admin: 01/24/23 15:23 Dose: 5 mcg/kg/min, 10.21 mls/hr Montelukast Sodium (Montelukast Sodium 10 Mg Tablet) 10 mg PO QAM [facility] Last Admin: 01/24/23 05:30 Dose: 10 mg Morphine Sulfate (Morphine 4 Mg/Ml Sdv 1 Ml) 2 mg IVP Q4H PRN PRN Reason: SEVERE PAIN Last Admin: 01/24/23 15:29 Dose: 2 mg Ondansetron HCl (Ondansetron 2 Mg/Ml Sdv 2 Ml) 4 mg IVP Q8H PRN PRN Reason: vomiting, or N/V if npo Last Admin: 01/24/23 11:01 Dose: 4 mg Zolpidem Tartrate (Zolpidem 5 Mg Tablet) 10 mg PO BEDTIME [facility] Last Admin: 01/23/23 20:59 Dose: 10 mg Vitals/I&O/Wt Last Vital Signs Temp 97.8 F 01/24/23 15:35 Pulse 82 01/24/23 16:10 Resp 19 H 01/24/23 16:10 BP 125/97 01/24/23 16:10 Pulse Ox 99 01/24/23 16:10 O2 Del Method Nasal Cannula 01/24/23 16:10 O2 Flow Rate 1 01/24/23 16:10 01/24/23 01/24/23 01/24/23 06:59 14:59 22:59 Intake Total 240 / 490 360 / 360 721.467 / 1081.467 Output Total 195 / 195 Balance 240 / 490 360 / 360 526.467 / 886.467 Physical Exam Narrative: GENERAL: The patient is alert and oriented times three. Not in any acute distress. HEENT: No significant pallor, icterus or lymphadenopathy.Oral cavity: There are no mucous membrane lesions. NECK: Trachea appears to be central. No masses noted. No JVD or thyromegaly appreciated. RESPIRATORY: Chest is symmetrical. No intercostals muscle retraction or any accessory muscle activation. There is no chest wall tenderness. Breath sounds are heard bilaterally. No rales or rhonchi heard. No evidence of any consolidation. BREASTS: Deferred. HEART: The heart sounds are normal. No S3 or S4. Murmur grade 3 or 6 in the mitral area. No diastolic murmurs. No pericardial rub ABDOMEN: No vessel pulsations or distention. No tenderness. No organomegaly appreciated. Bowel sounds are normally heard. : Deferred. RECTAL: Deferred. LYMPHATIC: No lymphadenopathy noted in the neck. EXTREMITIES: No edema or cyanosis. No clubbing. MUSCULOSKELETAL: No acute joint deformities or swelling SKIN: There are no significant rashes or ecchymosis NEUROPSYCHIATRIC: The patient is alert and oriented x3. Appears to be in a good mood. No tremors or rigidity noted. Data 01/24/23 02:46 01/24/23 02:46 Other Labs: Laboratory Last Values WBC 6.5 10^3/uL (4.0-10.0) 01/24/23 02:46 RBC 2.79 10^6/uL (4.1-5.3) L 01/24/23 02:46 Hgb 9.0 g/dL (11.5-15.3) L 01/24/23 02:46 Hct 30.9 % (37.0-47.0) L 01/24/23 02:46 MCV 110.8 fl (81-99) H 01/24/23 02:46 MCH 32.3 pg (28.0-34.0) 01/24/23 02:46 MCHC 29.1 g/dL (30.0-36.0) L D 01/24/23 02:46 RDW 16.3 % (12.1-15.1) H 01/24/23 02:46 Plt Count 207 10^3/cmm (130-400) 01/24/23 02:46 MPV 11.9 fL (7.4-10.4) H 01/24/23 02:46 Neut % (Auto) 60.7 % 01/24/23 02:46 Lymph % (Auto) 26.5 % 01/24/23 02:46 [place] % (Auto) 9.9 % 01/24/23 02:46 Eos % (Auto) 1.6 % 01/24/23 02:46 Baso % (Auto) 0.8 % 01/24/23 02:46 Neut # (Auto) 3.92 10^3/uL (1.8-7.7) 01/24/23 02:46 Lymph # (Auto) 1.7 10^3/uL (0.8-4.8) 01/24/23 02:46 [place] # (Auto) 0.6 10^3/uL (0.2-0.9) 01/24/23 02:46 Eos # (Auto) 0.1 10^3/uL (0.0-0.8) 01/24/23 02:46 Baso # (Auto) 0.1 10^3/uL (0.0-0.1) 01/24/23 02:46 Nucleated RBC % (auto) 0 % 01/24/23 02:46 Nucleated RBCs # 0.0 /100WBC 01/24/23 02:46 Sodium 136 mmol/L (136-145) 01/24/23 02:46 Potassium 3.8 mmol/L (3.5-5.1) 01/24/23 02:46 Chloride 99 mmol/L (98-107) 01/24/23 02:46 Carbon Dioxide 25 mmol/L (22-29) 01/24/23 02:46 Anion Gap 15.8 (5-19) 01/24/23 02:46 BUN 15 mg/dL (6-20) 01/24/23 02:46 Creatinine 1.5 mg/dL (0.5-0.9) H 01/24/23 02:46 GFR Calculation 36.3 mL/min (90-130) L 01/24/23 02:46 Glucose 61 mg/dL (65-115) L 01/24/23 02:46 POC Glucose 121 mg/dL (70-110) H 01/24/23 11:12 Calculated Osmolality 281 mOsm/kg (285-295) L 01/24/23 02:46 Lactic Acid 2.2 mmol/L (0.5-2.2) 01/22/23 21:30 Lactic Acid (Sepsis) 1.8 mmol/L (0.5-2.2) 01/22/23 01:12 Lactate 2.7 mmol/L (0.5-2.2) H 01/22/23 16:15 Calcium 8.4 mg/dL (8.5-10.5) L 01/24/23 02:46 Magnesium 1.9 mg/dL (1.7-2.3) 01/23/23 01:12 Total Bilirubin 0.5 mg/dL (0.15-1.2) 01/24/23 02:46 AST 25 U/L (0-32) 01/24/23 02:46 ALT 22 U/L (0-33) 01/24/23 02:46 Alkaline Phosphatase 76 U/L (35-105) 01/24/23 02:46 Troponin T Baseline 18 ng/L (0-10) H 01/22/23 16:15 Troponin T 120 Minute 14.50 ng/L (0-10) H 01/22/23 18:09 Delta Troponin T -3.50 ABS# (0-10) L 01/22/23 18:09 Troponin T Hi Sens 6Hr 16.30 ng/L (0-10) H 01/22/23 21:30 Troponin T Hi Sens 6Hr Delta -1.70 ng/L (0-12) L 01/22/23 21:30 C-Reactive Protein 8.8 mg/L (0.0-4.9) H 01/22/23 16:15 NT-Pro-B Natriuret Pep 06815 pg/mL (0-125) H 01/22/23 16:15 Total Protein 5.3 g/dL (6.6-8.7) L 01/24/23 02:46 Albumin 3.2 g/dL (3.5-5.2) L 01/24/23 02:46 Globulin 2.1 g/dL (1.3-4.6) 01/24/23 02:46 Procalcitonin 0.12 ng/mL (0-0.5) 01/23/23 01:12 TSH 18.28 uIU/mL (0.27-4.20) H 01/23/23 01:12 Micro: Microbiology 01/22/23 21:30 Blood Culture - Preliminary Blood NEGATIVE TO DATE 01/22/23 21:34 Blood Culture - Preliminary Blood NEGATIVE TO DATE Other data: Echocardiogram on 01/11/2023 severe diffuse hypokinesia of the left ventricle with an ?ejection fraction of 15 to 20%. ?Right ventricular appears to be normal size and ejection ?fraction. ?Mild biatrial enlargement. ?Thickened mitral valve.? Moderately severe mitral regurgitation. ?Nxsu-[id number] tricuspid valve regurgitation. ?Thickened aortic valve. ?Compared to the study from 10/31/2022, ejection fraction appears ?to be declining A&P Assessment and plan (1) Cardiogenic shock: Patient apparently has been having recurrent episodes of hypotension and congestive heart failure with a features of cardiogenic shock. Currently she is off the vasopressor. Vital signs seems to be stable. Still on IV Dobutrex for improved cardiac output. (2) Chest pain: Patient has a history of chronic chest pain. Cardiac arrhythmia during the most recent hospital admission revealed no significant obstructive lesions. (3) Nonischemic cardiomyopathy: Patient was discharged home on a low-dose of Entresto and carvedilol. Apparently she was taken off this medication because of the hypotension. At this point, we may hold onto this. (4) Chronic systolic (congestive) heart failure: Patient may be started on a low-dose of Lasix and spironolactone. (5) GERRI (acute kidney injury): The kidney function seems to be improving. (6) Anemia: Could be multifactorial. The hemoglobin seems to be stable Plan The patient is being considered for transfer to a facility for possible LVAD/[employer]OR OF [employer]OUS[employer]-D Attestations Medical Necessity Statement*: Patient requires continued hospital stay for close monitoring and further management Coding Level of Care Code 03092 Diagnoses Cardiogenic shock R57.0 Chest pain R07.9 Nonischemic cardiomyopathy I42.8 Chronic systolic (congestive) heart failure I50.22 GERRI (acute kidney injury) N17.9 Anemia D64.9
[2023-01-24] MEDS: zolpidem 5 mg Tablet 10 MG PO (20:44)
[2023-01-24] MEDS: citalopram 20 mg Tablet 40 MG PO (20:44)
--- NOTE | 2023-01-24 22:40 | P.PN_ITS ---
Subjective Subjective: No acute interim events. Pain is currently better controlled. She continues to be on dobutamine at 5. Medications: Reviewed: Yes Medication Review Details: Current Medications Acetaminophen (Acetaminophen 325 Mg Tablet) 650 mg PO Q6H PRN PRN Reason: Mild/Mod Pain Or Temp >/= 101 Hydrocodone Bitart/Acetaminophen (Hydrocodone-Acetaminophen 5-325 Mg Tablet) 1 tab PO Q8H PRN PRN Reason: pain Last Admin: 01/24/23 09:12 Dose: 1 tab Alprazolam (Alprazolam 0.5 Mg Tablet) 0.5 mg PO TID PRN PRN Reason: ANXIETY Last Admin: 01/24/23 18:52 Dose: 0.5 mg Amiodarone HCl (Amiodarone 200 Mg Tablet) 400 mg PO DAILY AURE Last Admin: 01/24/23 09:01 Dose: 400 mg Bisacodyl (Bisacodyl 5 Mg Tablet) 10 mg PO DAILY PRN; Protocol PRN Reason: Constipation (see protocol) Citalopram Hydrobromide (Citalopram 20 Mg Tablet) 40 mg PO BEDTIME AURE Last Admin: 01/23/23 20:59 Dose: 40 mg Diphenhydramine HCl (Diphenhydramine 25 Mg Capsule) 25 mg PO Q6H PRN PRN Reason: ITCHING Last Admin: 01/23/23 10:52 Dose: 25 mg Enoxaparin Sodium (Enoxaparin 80 Mg/0.8 Ml Syringe) 70 mg SUBCUT Q12H AURE Last Admin: 01/24/23 17:19 Dose: 70 mg Fentanyl (Fentanyl 25 Mcg Patch) 1 patch TRANSDERMA Q72H AURE Last Admin: 01/23/23 15:43 Dose: 1 patch Norepinephrine Bitartrate 4 mg (/ Dextrose) 254 mls @ 0 mls/hr IV .Q0M AURE; Protocol Last Titration: 01/23/23 03:05 Dose: 0 mcg/min, 0 mls/hr Dobutamine HCl/Dextrose (Dobutamine Drip) 500 mg in 250 mls @ 0 mls/hr IV .Q0M AURE; Protocol Last Admin: 01/24/23 15:23 Dose: 5 mcg/kg/min, 10.21 mls/hr Montelukast Sodium (Montelukast Sodium 10 Mg Tablet) 10 mg PO QAM AURE Last Admin: 01/24/23 05:30 Dose: 10 mg Morphine Sulfate (Morphine 4 Mg/Ml Sdv 1 Ml) 2 mg IVP Q4H PRN PRN Reason: SEVERE PAIN Last Admin: 01/24/23 15:29 Dose: 2 mg Ondansetron HCl (Ondansetron 2 Mg/Ml Sdv 2 Ml) 4 mg IVP Q8H PRN PRN Reason: vomiting, or N/V if npo Last Admin: 01/24/23 11:01 Dose: 4 mg Zolpidem Tartrate (Zolpidem 5 Mg Tablet) 10 mg PO BEDTIME [facility] Last Admin: 01/23/23 20:59 Dose: 10 mg Vitals/I&O/Wt Last Vital Signs Temp 97.8 F 01/24/23 15:35 Pulse 83 01/24/23 21:50 Resp 18 01/24/23 21:50 BP 122/63 01/24/23 21:50 Pulse Ox 84 L 01/24/23 21:05 O2 Del Method Nasal Cannula 01/24/23 16:10 O2 Flow Rate 1 01/24/23 16:10 01/24/23 01/24/23 01/24/23 06:59 14:59 22:59 Intake Total 240 / 490 360 / 360 721.467 / 1081.467 Output Total 195 / 195 Balance 240 / 490 360 / 360 526.467 / 886.467 Physical Exam Narrative: General: No acute distress, AO x3 HEENT: PERRLA, pupils bilaterally equal and reactive, pallors not present Chest: Normal vesicular breath sounds, no added sounds, equal good air entry bilaterally CVS: S1-S2 regular, no murmurs, no tachycardia, no gallops, no rubs Abdomen: Soft, nontender, no organomegaly, bowel sounds present Neuro: No focal deficits, no facial deformity, AO x3, power 5/5 in all limbs Data 01/25/23 03:13 01/25/23 03:13 Micro: Microbiology 01/22/23 21:30 Blood Culture - Preliminary Blood NEGATIVE TO DATE 01/22/23 21:34 Blood Culture - Preliminary Blood NEGATIVE TO DATE A&P Assessment and plan (1) Cardiogenic shock: (2) Hypomagnesemia: (3) Urolithiasis: (4) Left nephrolithiasis: (5) Nephrostomy status: Plan 53 year old female with known ischemic cardiomyopathy,recent Rt upper extremity dvt, discharged on elquis, s/p left nephrostomy tube in place,HFrEF S/P AICD she was recently discharged from the hospital after being managed for multiple AICD discharge for V.Fib on po amidarone came in today with c/o generalized weakness as well as abnormal sensations in both the lower and upper extremities, felt pin like sensations, started today this morning, she attributed it to possible hypokalemia, likely secondary to hyponatremia she was also complaining of some epigastric discomfort,When she arrived in the ER she was found to be severely hypotensive, for which she had to be started on dobutamine as well as Levophed. Assessment: Cardiogenic shock: Patient has known history of ischemic cardiomyopathy, recent cardiac cath, with no new concerning lesion, most recent 2D echo done during last hospital stay, had shown an EF of 15 to 20%With LV wall hypokinesis. Currently she [facility] [place] This is patient's third hospital admission apart from the ER visits in close succession for cardiogenic shock, ongoing chest pain. At this point in time patient would likely benefit from transfer to a higher center with heart failure focus to assess for possibility of being on milrinone, dobutamine drips, possible MEDIA ARTS PROFESSOR-D versus LVAD. Attempting to transfer patient to higher center for recurrent admissions for cardiogenic shock, persistent hypotension. Currently there are no availabilities at [facility]. Attempting to contact [facility] and [facility]. Recent history of V-fib with AICD discharge: Currently on amiodarone PO 400 mg daily, no active issues HFrEF: Currently euvolemic. # Complains of persistent ongoing chest pain: This is much better controlled after addition of fentanyl patch yesterday. As needed morphine to continue. Recent history of right upper extremity DVT: Was discharged home on Eliquis Continue Lovenox subcu therapeutic for now S/p left nephrostomy tube: For left nephrolithiasis/urolithiasis; follows urologist at [place]. Due for an exchange soon. Current tube has been in place since September 2022. Hypomagnesemia: Monitor and replace magnesium Hyponatremia: Serum sodium on admission is 127, now improved to 137 today. Monitor and replace serum potassium CODE STATUS: Full code DVT prophylaxis: Therapeutic anticoagulation with Lovenox will suffice for that. Attestations Medical Necessity Statement*: Continued need for dobutamine infusion, currently at 5, attempting transfer to higher facility with heart failure focus Coding Level of Care Code Acute Code for Chg Fwd Diagnoses Cardiogenic shock R57.0 Hypomagnesemia E83.42 Urolithiasis N20.9 Left nephrolithiasis N20.0 Nephrostomy status Z93.6
[2023-01-25] VITALS (73 sets, daily range): BP systolic 100–156; BP diastolic 71–117; PULSE 0–96; RESP 10–29; TEMP 36.8–37.1; O2SAT 76–100
[2023-01-25] MEDS: ALPRAZolam 0.5 mg Tablet PO ×2 (01:05→17:59)
[2023-01-25] MEDS: HYDROcodone-acetaminophen 5-325 mg Tablet 1 TAB PO ×3 (01:05→17:59)
[2023-01-25 03:59] LABS: Basophils # 0.1 10^3/uL (0.0-0.1); Eosinophils # 0.2 10^3/uL (0.0-0.8); Eosinophils % 2.5 %; Hematocrit 29.7 % (37.0-47.0); Hemoglobin 8.8 g/dL (11.5-15.3); Lymphocytes # 1.4 10^3/uL (0.8-4.8); Lymphocytes % 22.4 %; Mean Corpuscular HGB Conc 29.6 g/dL (30.0-36.0); Mean Corpuscular Hemoglobin 31.1 pg (28.0-34.0); Mean Corpuscular Volume 104.9 fl (81-99); Mean Platelet Volume 11.6 fL (7.4-10.4); Monocytes # 0.5 10^3/uL (0.2-0.9); Monocytes % 8.3 %; Neutrophils # 3.98 10^3/uL (1.8-7.7); Neutrophils % 65.1 %; Nucleated Red Blood Cells % 0 %; Platelet Count 176 10^3/cmm (130-400); Red Blood Count 2.83 10^6/uL (4.1-5.3); Red Cell Distribution Width 16.1 % (12.1-15.1); White Blood Count 6.1 10^3/uL (4.0-10.0)
[2023-01-25] MEDS: morphine 4 mg/mL SDV 1 mL 2 MG IVP ×3 (03:59→18:39)
[2023-01-25 04:29] LABS: Alanine Aminotransferase 18 U/L (0-33); Albumin Level 3.5 g/dL (3.5-5.2); Alkaline Phosphatase 82 U/L (35-105); Anion Gap 13.9 (5-19); Aspartate Amino Transferase 19 U/L (0-32); Blood Urea Nitrogen 14 mg/dL (6-20); Calcium 8.3 mg/dL (8.5-10.5); Carbon Dioxide 27 mmol/L (22-29); Chloride 100 mmol/L (98-107); Globulin 2.1 g/dL (1.3-4.6); Glomerular Filtration Rate 42.8 mL/min (90-130); Glucose 82 mg/dL (65-115); Osmolality Calculated 284 mOsm/kg (285-295); Potassium 3.9 mmol/L (3.5-5.1); Sodium 137 mmol/L (136-145); Total Bilirubin 0.4 mg/dL (0.15-1.2); Total Protein 5.6 g/dL (6.6-8.7)
[2023-01-25] MEDS: enoxaparin 80 mg/0.8 mL Syringe 70 MG SUBCUT ×2 (05:41→17:56)
[2023-01-25] MEDS: montelukast sodium 10 mg Tablet PO (05:41)
[2023-01-25] MEDS: amiodarone 200 mg Tablet 400 MG PO (08:33)
[2023-01-25] MEDS: diphenhydrAMINE 25 mg Capsule PO (15:59)
[2023-01-25] MEDS: DOBUTamine drip 500 MG/250 ML PREMIX 10.21 MG IV (15:59)
--- NOTE | 2023-01-25 19:26 | PC.NURSE ---
report Anupama Diaz LPN 01/25/20231920
[2023-01-25] MEDS: zolpidem 5 mg Tablet 10 MG PO (20:10)
[2023-01-25] MEDS: citalopram 20 mg Tablet 40 MG PO (20:10)
--- NOTE | 2023-01-25 20:30 | PM.PN ---
Subjective Subjective: The patient is feeling okay. Still on the Dobutrex 5 mics per KG per minute. Has a feeling of tightness in the chest. No fever or chills. No cough Medications: Medication Review Details: Current Medications Acetaminophen (Acetaminophen 325 Mg Tablet) 650 mg PO Q6H PRN PRN Reason: Mild/Mod Pain Or Temp >/= 101 Hydrocodone Bitart/Acetaminophen (Hydrocodone-Acetaminophen 5-325 Mg Tablet) 1 tab PO Q8H PRN PRN Reason: pain Last Admin: 01/25/23 17:59 Dose: 1 tab Alprazolam (Alprazolam 0.5 Mg Tablet) 0.5 mg PO TID PRN PRN Reason: ANXIETY Last Admin: 01/25/23 17:59 Dose: 0.5 mg Amiodarone HCl (Amiodarone 200 Mg Tablet) 400 mg PO DAILY AURE Last Admin: 01/25/23 08:33 Dose: 400 mg Bisacodyl (Bisacodyl 5 Mg Tablet) 10 mg PO DAILY PRN; Protocol PRN Reason: Constipation (see protocol) Citalopram Hydrobromide (Citalopram 20 Mg Tablet) 40 mg PO BEDTIME AURE Last Admin: 01/25/23 20:10 Dose: 40 mg Diphenhydramine HCl (Diphenhydramine 25 Mg Capsule) 25 mg PO Q6H PRN PRN Reason: ITCHING Last Admin: 01/25/23 15:59 Dose: 25 mg Enoxaparin Sodium (Enoxaparin 80 Mg/0.8 Ml Syringe) 70 mg SUBCUT Q12H AURE Last Admin: 01/25/23 17:56 Dose: 70 mg Fentanyl (Fentanyl 25 Mcg Patch) 1 patch TRANSDERMA Q72H AURE Last Admin: 01/23/23 15:43 Dose: 1 patch Norepinephrine Bitartrate 4 mg (/ Dextrose) 254 mls @ 0 mls/hr IV .Q0M AURE; Protocol Last Titration: 01/23/23 03:05 Dose: 0 mcg/min, 0 mls/hr Dobutamine HCl/Dextrose (Dobutamine Drip) 500 mg in 250 mls @ 0 mls/hr IV .Q0M AURE; Protocol Last Admin: 01/25/23 15:59 Dose: 5 mcg/kg/min, 10.21 mls/hr Montelukast Sodium (Montelukast Sodium 10 Mg Tablet) 10 mg PO QAM [facility] Last Admin: 01/25/23 05:41 Dose: 10 mg Morphine Sulfate (Morphine 4 Mg/Ml Sdv 1 Ml) 2 mg IVP Q4H PRN PRN Reason: SEVERE PAIN Last Admin: 01/25/23 18:39 Dose: 2 mg Ondansetron HCl (Ondansetron 2 Mg/Ml Sdv 2 Ml) 4 mg IVP Q8H PRN PRN Reason: vomiting, or N/V if npo Last Admin: 01/24/23 20:50 Dose: 4 mg Zolpidem Tartrate (Zolpidem 5 Mg Tablet) 10 mg PO BEDTIME [facility] Last Admin: 01/25/23 20:10 Dose: 10 mg Vitals/I&O/Wt Last Vital Signs Temp 98.2 F 01/25/23 10:00 Pulse 92 01/25/23 17:00 Resp 20 H 01/25/23 18:39 BP 129/85 01/25/23 17:00 Pulse Ox 91 01/25/23 18:39 O2 Del Method Nasal Cannula 01/25/23 10:00 O2 Flow Rate 2 01/25/23 10:00 01/25/23 01/25/23 01/25/23 06:59 14:59 22:59 Intake Total 240 / 240 250 / 490 Output Total 220 / 220 Balance 250 / 270 Physical Exam Narrative: GENERAL: The patient is alert and oriented times three. Not in any acute distress. HEENT: No significant pallor, icterus or lymphadenopathy.Oral cavity: There are no mucous membrane lesions. NECK: Trachea appears to be central. No masses noted. No JVD or thyromegaly appreciated. RESPIRATORY: Chest is symmetrical. No intercostals muscle retraction or any accessory muscle activation. There is no chest wall tenderness. Breath sounds are heard bilaterally. No rales or rhonchi heard. No evidence of any consolidation. BREASTS: Deferred. HEART: The heart sounds are normal. No S3 or S4. Murmur grade 3 or 6 in the mitral area. No diastolic murmurs. No pericardial rub ABDOMEN: No vessel pulsations or distention. No tenderness. No organomegaly appreciated. Bowel sounds are normally heard. : Deferred. RECTAL: Deferred. LYMPHATIC: No lymphadenopathy noted in the neck. EXTREMITIES: No edema or cyanosis. No clubbing. MUSCULOSKELETAL: No acute joint deformities or swelling SKIN: There are no significant rashes or ecchymosis NEUROPSYCHIATRIC: The patient is alert and oriented x3. Appears to be in a good mood. No tremors or rigidity noted. Data 01/25/23 03:13 01/25/23 03:13 Other Labs: Laboratory Last Values WBC 6.1 10^3/uL (4.0-10.0) 01/25/23 03:13 RBC 2.83 10^6/uL (4.1-5.3) L 01/25/23 03:13 Hgb 8.8 g/dL (11.5-15.3) L 01/25/23 03:13 Hct 29.7 % (37.0-47.0) L 01/25/23 03:13 MCV 104.9 fl (81-99) H D 01/25/23 03:13 MCH 31.1 pg (28.0-34.0) 01/25/23 03:13 MCHC 29.6 g/dL (30.0-36.0) L 01/25/23 03:13 RDW 16.1 % (12.1-15.1) H 01/25/23 03:13 Plt Count 176 10^3/cmm (130-400) 01/25/23 03:13 MPV 11.6 fL (7.4-10.4) H 01/25/23 03:13 Neut % (Auto) 65.1 % 01/25/23 03:13 Lymph % (Auto) 22.4 % 01/25/23 03:13 [place] % (Auto) 8.3 % 01/25/23 03:13 Eos % (Auto) 2.5 % 01/25/23 03:13 Baso % (Auto) 1.0 % 01/25/23 03:13 Neut # (Auto) 3.98 10^3/uL (1.8-7.7) 01/25/23 03:13 Lymph # (Auto) 1.4 10^3/uL (0.8-4.8) 01/25/23 03:13 [place] # (Auto) 0.5 10^3/uL (0.2-0.9) 01/25/23 03:13 Eos # (Auto) 0.2 10^3/uL (0.0-0.8) 01/25/23 03:13 Baso # (Auto) 0.1 10^3/uL (0.0-0.1) 01/25/23 03:13 Nucleated RBC % (auto) 0 % 01/25/23 03:13 Nucleated RBCs # 0.0 /100WBC 01/25/23 03:13 Sodium 137 mmol/L (136-145) 01/25/23 03:13 Potassium 3.9 mmol/L (3.5-5.1) 01/25/23 03:13 Chloride 100 mmol/L (98-107) 01/25/23 03:13 Carbon Dioxide 27 mmol/L (22-29) 01/25/23 03:13 Anion Gap 13.9 (5-19) 01/25/23 03:13 BUN 14 mg/dL (6-20) 01/25/23 03:13 Creatinine 1.3 mg/dL (0.5-0.9) H 01/25/23 03:13 GFR Calculation 42.8 mL/min (90-130) L 01/25/23 03:13 Glucose 82 mg/dL (65-115) 01/25/23 03:13 POC Glucose 121 mg/dL (70-110) H 01/24/23 11:12 Calculated Osmolality 284 mOsm/kg (285-295) L 01/25/23 03:13 Lactic Acid 2.2 mmol/L (0.5-2.2) 01/22/23 21:30 Lactic Acid (Sepsis) 1.8 mmol/L (0.5-2.2) 01/22/23 01:12 Lactate 2.7 mmol/L (0.5-2.2) H 01/22/23 16:15 Calcium 8.3 mg/dL (8.5-10.5) L 01/25/23 03:13 Magnesium 1.9 mg/dL (1.7-2.3) 01/23/23 01:12 Total Bilirubin 0.4 mg/dL (0.15-1.2) 01/25/23 03:13 AST 19 U/L (0-32) 01/25/23 03:13 ALT 18 U/L (0-33) 01/25/23 03:13 Alkaline Phosphatase 82 U/L (35-105) 01/25/23 03:13 Troponin T Baseline 18 ng/L (0-10) H 01/22/23 16:15 Troponin T 120 Minute 14.50 ng/L (0-10) H 01/22/23 18:09 Delta Troponin T -3.50 ABS# (0-10) L 01/22/23 18:09 Troponin T Hi Sens 6Hr 16.30 ng/L (0-10) H 01/22/23 21:30 Troponin T Hi Sens 6Hr Delta -1.70 ng/L (0-12) L 01/22/23 21:30 C-Reactive Protein 8.8 mg/L (0.0-4.9) H 01/22/23 16:15 NT-Pro-B Natriuret Pep 20755 pg/mL (0-125) H 01/22/23 16:15 Total Protein 5.6 g/dL (6.6-8.7) L 01/25/23 03:13 Albumin 3.5 g/dL (3.5-5.2) 01/25/23 03:13 Globulin 2.1 g/dL (1.3-4.6) 01/25/23 03:13 Procalcitonin 0.12 ng/mL (0-0.5) 01/23/23 01:12 TSH 18.28 uIU/mL (0.27-4.20) H 01/23/23 01:12 Micro: Microbiology 01/22/23 21:34 Blood Culture - Preliminary Blood 01/22/23 21:30 Blood Culture - Preliminary Blood A&P Assessment and plan (1) Cardiogenic shock: Patient is currently on Dobutrex drip of 5 mics per KG per minute. The blood pressure seems to be stable. Urine output seems to be improving. (2) Ventricular fibrillation: Patient has multiple ICD discharges for ventricular fibrillation in the recent past. Has not had any recurrence since we started her on the amiodarone. We will continue on the current medication. (3) Nonischemic cardiomyopathy: The LV ejection fraction was 15 to 20%. Patient may benefit from SERVICE CREW LEADER-D/LVAD (4) Chest pain: Patient has a history of chronic chest pain. Cardiac catheterization during the most recent hospital admission revealed no significant obstructive lesions. (5) Chronic systolic (congestive) heart failure: Patient is on Lasix and spironolactone. This may be continued. (6) GERRI (acute kidney injury): The kidney function seems to be improving. (7) Anemia: Could be multifactorial. The hemoglobin seems to be stable Plan I contacted Dr. Basilio the take up supervisor at the [facility]. In view of the patient's recurrent episodes of heart failure/cardiogenic shock requiring multiple hospital admissions, she would benefit from a SERVICE CREW LEADER-D/LVAD. Dr. Basilio advised to contact the CCU admitting physician at the [facility] for possible transfer and further management. In the meanwhile we will continue the IV Dobutrex. Other symptomatic measures may be continued. Attestations Medical Necessity Statement*: Patient requires continued hospital stay for close monitoring and further management Coding Level of Care Code Acute Code for Chg Fwd Diagnoses Cardiogenic shock R57.0 Ventricular fibrillation I49.01 Nonischemic cardiomyopathy I42.8 Chest pain R07.9 Chronic systolic (congestive) heart failure I50.22 GERRI (acute kidney injury) N17.9 Anemia D64.9
--- NOTE | 2023-01-25 20:37 | PC.NURSE ---
[facility] came to get pt at this time. Pt was alert and oriented and understand she was getting transferred out. VSS at this time. Pt left with cell phone, cell phone manager management, black bookbag, and clothings in her bag. Doubtamine was transferred with patient at [facility] [place] [facility]. Night time meds were given celexa and Ambien. Updated pain med list with times was given to paramedics. Pt was in no distress. NSR and on Room Air. Nephrostomy tube was noted to left side of back at this time. PT had no requests or needs during transport.
--- NOTE | 2023-01-25 20:40 | PC.NURSE ---
Addendum entered by Nayely Koch RN 01/25/23 20:50: Skin assessment was completed with BLADE Butler. No fentanyl patch was on patient's body at time of assessment. Original Note: Upon arrival to this shift and upon assessment pt did not have fentanyl 25mcg patch not noted to upper extremity or noted to any region of body at this time. Called Nayely, Charge Nurse, into room to do assessment with me and confirmed no patch is present.
--- NOTE | 2023-01-25 22:19 | PM.TDS ---
Transfer Summary Providers Date of Admission: 01/22/23 18:29 Date of Discharge/Transfer: 01/25/23 Attending Provider at Admission: Aj Mendoza MD Attending Provider at Transfer: Beryl Dejesus MD Primary Care Provider: Mavis Peterson Transfer Plans: Anticipated date of transfer: 01/25/23. Diagnoses at Discharge Discharge Diagnosis (1) Cardiogenic shock: Status: Acute (2) Ventricular fibrillation: Status: Acute (3) Nonischemic cardiomyopathy: Status: Inactive Permanent problem details: Severe diffuse hypokinesia of the left ventricle with an ejection fraction of 15 to 20%. Right ventricular appears to be normal size and ejection fraction. Mild biatrial enlargement. Thickened mitral valve. Moderately severe mitral regurgitation. [id number] tricuspid valve regurgitation. Thickened aortic valve. Compared to the study from 10/31/2022, ejection fraction appears to be declining (4) Chest pain: Status: Inactive (5) Chronic systolic (congestive) heart failure: Status: Inactive (6) GERRI (acute kidney injury): Status: Acute (7) Anemia: Status: Inactive Reason for Visit Reason for Visit WEAKNESS; BRADYCARDIA; HYPOTENSION Hospital Course Hospital Course Ms. Pulliam is a 53 year old lady with known non ischemic cardiomyopathy, presumed viral, who has had recurrent admissions at [facility] for cardiogenic shock, heart failure and arrhythmias. Most recently she is admitted here since 01/20 with genralized weakness, hypotension, cardiogenic shock for which she needed to be started on pressor support with levophed and dobutamine initially , now only on dobutamine at 5mcg. She was recently also admitted here between 01/10-01/22 after her AICD shocked her multiple times for recurrent V fib which was controlled with starting amiodarone. On this last admission she had also been in cardiogenic shock needing pressor support, had undergone LHC on 01/11 given ongoing chest pain and recurrent vifb, no obstructive lesions were found. echo showed EF 15-20%. She has had recurrent admissions and ER visits since early december for similar presentations. She usually returns to the hospital within few days of being discharged and being taken off pressors. She was recently started on outpatient midodrine without any improvement. Currently she continued to be on dobutamine 5mcg. She has been evaluated by cardiology. Given advanced heart failure, consideration needs to be given to outpatient pressors, [employer] BALER-D and possibly LVAD. She is being transferred to higher center ( [facility]) today for EP and heart failure specialized needs. Her case was discussed by Dr. Hill with Dr. Basilio at [facility]. We have contacted the transfer center to facilitate transfer to [facility] unit. Her other major comorbidities are left nephrostomy tube in place since Sep 2022 and right arm DVT for which she is on therapeutic a/c. Physical Exam Narrative: General: No acute distress, AO x3 HEENT: PERRLA, pupils bilaterally equal and reactive, pallors not present Chest: Normal vesicular breath sounds, no added sounds, equal good air entry bilaterally CVS: S1-S2 regular, no murmurs, no tachycardia, no gallops, no rubs Abdomen: Soft, nontender, no organomegaly, bowel sounds present Neuro: No focal deficits, no facial deformity, AO x3, power 5/5 in all limbs TS Data Studies Completed and Pending Pending at discharge Category Date Time Status Blood Culture Stat Lab 01/22/23 21:34 Results Blood Cultures ([facility]) Routine Lab 01/22/23 21:30 Results Blood Cultures ([facility]) Routine Lab 01/22/23 21:34 Results Labs from last 24 hours 01/25/23 01/25/23 03:13 03:13 WBC 6.1 RBC 2.83 L Hgb 8.8 L Hct 29.7 L MCV 104.9 H D MCH 31.1 MCHC 29.6 L RDW 16.1 H Plt Count 176 MPV 11.6 H Neut % (Auto) 65.1 Lymph % (Auto) 22.4 [place] % (Auto) 8.3 Eos % (Auto) 2.5 Baso % (Auto) 1.0 Neut # (Auto) 3.98 Lymph # (Auto) 1.4 [place] # (Auto) 0.5 Eos # (Auto) 0.2 Baso # (Auto) 0.1 Nucleated RBC % (auto) 0 Nucleated RBCs # 0.0 Sodium 137 Potassium 3.9 Chloride 100 Carbon Dioxide 27 Anion Gap 13.9 BUN 14 Creatinine 1.3 H GFR Calculation 42.8 L Glucose 82 Calculated Osmolality 284 L Calcium 8.3 L Total Bilirubin 0.4 AST 19 ALT 18 Alkaline Phosphatase 82 Total Protein 5.6 L Albumin 3.5 Globulin 2.1 Completed Studies During Hospitalization Category Date Time Status XR chest 1V portable [id number] Stat Exams 01/22/23 14:19 Completed Laboratory Last Values WBC 6.1 10^3/uL (4.0-10.0) 01/25/23 03:13 RBC 2.83 10^6/uL (4.1-5.3) L 01/25/23 03:13 Hgb 8.8 g/dL (11.5-15.3) L 01/25/23 03:13 Hct 29.7 % (37.0-47.0) L 01/25/23 03:13 MCV 104.9 fl (81-99) H D 01/25/23 03:13 MCH 31.1 pg (28.0-34.0) 01/25/23 03:13 MCHC 29.6 g/dL (30.0-36.0) L 01/25/23 03:13 RDW 16.1 % (12.1-15.1) H 01/25/23 03:13 Plt Count 176 10^3/cmm (130-400) 01/25/23 03:13 MPV 11.6 fL (7.4-10.4) H 01/25/23 03:13 Neut % (Auto) 65.1 % 01/25/23 03:13 Lymph % (Auto) 22.4 % 01/25/23 03:13 [place] % (Auto) 8.3 % 01/25/23 03:13 Eos % (Auto) 2.5 % 01/25/23 03:13 Baso % (Auto) 1.0 % 01/25/23 03:13 Neut # (Auto) 3.98 10^3/uL (1.8-7.7) 01/25/23 03:13 Lymph # (Auto) 1.4 10^3/uL (0.8-4.8) 01/25/23 03:13 [place] # (Auto) 0.5 10^3/uL (0.2-0.9) 01/25/23 03:13 Eos # (Auto) 0.2 10^3/uL (0.0-0.8) 01/25/23 03:13 Baso # (Auto) 0.1 10^3/uL (0.0-0.1) 01/25/23 03:13 Nucleated RBC % (auto) 0 % 01/25/23 03:13 Nucleated RBCs # 0.0 /100WBC 01/25/23 03:13 Sodium 137 mmol/L (136-145) 01/25/23 03:13 Potassium 3.9 mmol/L (3.5-5.1) 01/25/23 03:13 Chloride 100 mmol/L (98-107) 01/25/23 03:13 Carbon Dioxide 27 mmol/L (22-29) 01/25/23 03:13 Anion Gap 13.9 (5-19) 01/25/23 03:13 BUN 14 mg/dL (6-20) 01/25/23 03:13 Creatinine 1.3 mg/dL (0.5-0.9) H 01/25/23 03:13 GFR Calculation 42.8 mL/min (90-130) L 01/25/23 03:13 Glucose 82 mg/dL (65-115) 01/25/23 03:13 POC Glucose 121 mg/dL (70-110) H 01/24/23 11:12 Calculated Osmolality 284 mOsm/kg (285-295) L 01/25/23 03:13 Lactic Acid 2.2 mmol/L (0.5-2.2) 01/22/23 21:30 Lactic Acid (Sepsis) 1.8 mmol/L (0.5-2.2) 01/22/23 01:12 Lactate 2.7 mmol/L (0.5-2.2) H 01/22/23 16:15 Calcium 8.3 mg/dL (8.5-10.5) L 01/25/23 03:13 Magnesium 1.9 mg/dL (1.7-2.3) 01/23/23 01:12 Total Bilirubin 0.4 mg/dL (0.15-1.2) 01/25/23 03:13 AST 19 U/L (0-32) 01/25/23 03:13 ALT 18 U/L (0-33) 01/25/23 03:13 Alkaline Phosphatase 82 U/L (35-105) 01/25/23 03:13 Troponin T Baseline 18 ng/L (0-10) H 01/22/23 16:15 Troponin T 120 Minute 14.50 ng/L (0-10) H 01/22/23 18:09 Delta Troponin T -3.50 ABS# (0-10) L 01/22/23 18:09 Troponin T Hi Sens 6Hr 16.30 ng/L (0-10) H 01/22/23 21:30 Troponin T Hi Sens 6Hr Delta -1.70 ng/L (0-12) L 01/22/23 21:30 C-Reactive Protein 8.8 mg/L (0.0-4.9) H 01/22/23 16:15 NT-Pro-B Natriuret Pep 77992 pg/mL (0-125) H 01/22/23 16:15 Total Protein 5.6 g/dL (6.6-8.7) L 01/25/23 03:13 Albumin 3.5 g/dL (3.5-5.2) 01/25/23 03:13 Globulin 2.1 g/dL (1.3-4.6) 01/25/23 03:13 Procalcitonin 0.12 ng/mL (0-0.5) 01/23/23 01:12 TSH 18.28 uIU/mL (0.27-4.20) H 01/23/23 01:12 Radiology Impressions Chest X-Ray 01/22/23 14:19 IMPRESSION: 1. Single lead pacemaker on the left and mild cardiomegaly. 2. Mild pulmonary vascular congestion. No focal infiltrate or consolidation. 3. Interval improvement right costophrenic angle is suggested from prior exam. Recent Clincial Data Last Vital Signs Temp 98.7 F 01/25/23 20:00 Pulse 91 01/25/23 20:00 Resp 20 H 01/25/23 20:00 BP 124/71 01/25/23 20:30 Pulse Ox 94 01/25/23 20:00 O2 Del Method Nasal Cannula 01/25/23 10:00 O2 Flow Rate 2 01/25/23 10:00 Vital Signs Temp Pulse Resp BP Pulse Ox 01/25/23 20:30 124/71 01/25/23 20:00 98.7 F 91 20 H 121/79 94 01/25/23 19:30 87 16 130/77 88 L 01/25/23 19:00 89 20 H 116/84 86 L 01/25/23 18:30 93 16 94 01/25/23 18:39 20 H 91 01/25/23 17:00 92 23 H 129/85 90 01/25/23 16:30 85 18 131/85 96 01/25/23 15:30 84 17 141/79 100 01/25/23 15:00 83 21 H 100/78 01/25/23 14:30 84 14 118/87 100 01/25/23 14:00 84 14 118/87 01/25/23 13:30 90 17 130/81 91 01/25/23 13:00 87 19 H 94 01/25/23 12:30 89 22 H 131/83 93 01/25/23 12:00 92 18 131/83 100 01/25/23 11:00 87 15 132/86 99 01/25/23 11:05 18 99 Intake & Output/Weight 01/23/23 01/24/23 01/25/23 01/26/23 06:59 06:59 06:59 06:59 Intake Total 1930.551 / 1930.551 490 / 490 1081.467 / 1081.467 490 / 490 Output Total 195 / 195 220 / 220 Balance 1930.551 / 1930.551 490 / 490 886.467 / 886.467 270 / 270 Weight 72.575 kg Vitals Last Vital Signs Temp 98.7 F 01/25/23 20:00 Pulse 91 01/25/23 20:00 Resp 20 H 01/25/23 20:00 BP 124/71 01/25/23 20:30 Pulse Ox 94 01/25/23 20:00 O2 Del Method Nasal Cannula 01/25/23 10:00 O2 Flow Rate 2 01/25/23 10:00 TS Medications Medications Discontinued Medications Acetaminophen (Acetaminophen 325 Mg Tablet) 650 mg PO Q6H PRN PRN Reason: Mild/Mod Pain Or Temp >/= 101 Hydrocodone Bitart/Acetaminophen (Hydrocodone-Acetaminophen 5-325 Mg Tablet) 1 tab PO Q8H PRN PRN Reason: pain Last Admin: 01/25/23 17:59 Dose: 1 tab Alprazolam (Alprazolam 0.5 Mg Tablet) 0.5 mg PO TID PRN PRN Reason: ANXIETY Last Admin: 01/25/23 17:59 Dose: 0.5 mg Amiodarone HCl (Amiodarone 200 Mg Tablet) 400 mg PO DAILY [facility] Last Admin: 01/25/23 08:33 Dose: 400 mg Atropine Sulfate (Atropine 0.1 Mg/Ml Syr 10 Ml) 0.5 mg IVP ONCE ONE Stop: 01/22/23 14:32 Last Admin: 01/22/23 14:37 Dose: 0.5 mg Bisacodyl (Bisacodyl 5 Mg Tablet) 10 mg PO DAILY PRN; Protocol PRN Reason: Constipation (see protocol) Citalopram Hydrobromide (Citalopram 20 Mg Tablet) 40 mg PO QPM AURE Citalopram Hydrobromide (Citalopram 20 Mg Tablet) 40 mg PO BEDTIME [facility] Last Admin: 01/25/23 20:10 Dose: 40 mg Diphenhydramine HCl (Diphenhydramine 50 Mg/Ml Sdv 1ml) 12.5 mg IVP ONCE ONE Stop: 01/22/23 19:32 Last Admin: 01/22/23 19:43 Dose: 12.5 mg Diphenhydramine HCl (Diphenhydramine 25 Mg Capsule) 25 mg PO Q6H PRN PRN Reason: ITCHING Last Admin: 01/25/23 15:59 Dose: 25 mg Enoxaparin Sodium (Enoxaparin 80 Mg/0.8 Ml Syringe) 70 mg SUBCUT Q12H [facility] Last Admin: 01/25/23 17:56 Dose: 70 mg Fentanyl (Fentanyl 50 Mcg/Ml Inj 2ml) 50 mcg IVP ONCE ONE Stop: 01/22/23 15:46 Last Admin: 01/22/23 17:14 Dose: 50 mcg Fentanyl (Fentanyl 50 Mcg/Ml Inj 2ml) 50 mcg IVP Q30M PRN PRN Reason: pain Last Admin: 01/23/23 13:36 Dose: 50 mcg Fentanyl (Fentanyl 25 Mcg Patch) 1 patch TRANSDERMA Q72H [facility] Last Admin: 01/23/23 15:43 Dose: 1 patch Furosemide (Furosemide 20 Mg Tablet) 20 mg PO DAILY@0800 [facility] Sodium Chloride (Sodium Chloride 0.9%) 1,000 mls @ 999 mls/hr IV .Q1H1M ONE Stop: 01/22/23 15:31 Last Infusion: 01/22/23 17:52 Dose: Infused Norepinephrine Bitartrate 4 mg (/ Dextrose) 254 mls @ 0 mls/hr IV .Q0M AURE; Protocol Last Titration: 01/23/23 03:05 Dose: 0 mcg/min, 0 mls/hr Dobutamine HCl/Dextrose (Dobutamine Drip) 500 mg in 250 mls @ 0 mls/hr IV .Q0M AURE; Protocol Last Admin: 01/25/23 15:59 Dose: 5 mcg/kg/min, 10.21 mls/hr Calcium Gluconate/Sodium Chloride (Calcium Gluconate 0.9% Nacl) 1 gm in 50 mls @ 50 mls/hr IV ONCE ONE Stop: 01/22/23 15:59 Last Infusion: 01/22/23 16:05 Dose: Infused Magnesium Sulfate (Magnesium Sulfate Premix) 2 gm in 50 mls @ 50 mls/hr IV ONCE ONE Stop: 01/22/23 18:14 Last Infusion: 01/22/23 18:37 Dose: Infused Sodium Chloride (Sodium Chloride 0.9%) 500 mls @ 500 mls/hr IV ONCE ONE Stop: 01/22/23 19:12 Last Infusion: 01/22/23 19:32 Dose: Infused Montelukast Sodium (Montelukast Sodium 10 Mg Tablet) 10 mg PO QAM [facility] Last Admin: 01/25/23 05:41 Dose: 10 mg Morphine Sulfate (Morphine 4 Mg/Ml Sdv 1 Ml) 2 mg IVP Q4H PRN PRN Reason: SEVERE PAIN Last Admin: 01/25/23 18:39 Dose: 2 mg Ondansetron HCl (Ondansetron 2 Mg/Ml Sdv 2 Ml) 4 mg IVP ONCE ONE Stop: 01/22/23 14:45 Last Admin: 01/22/23 15:37 Dose: 4 mg Ondansetron HCl (Ondansetron 2 Mg/Ml Sdv 2 Ml) 4 mg IVP ONCE ONE Stop: 01/22/23 16:56 Last Admin: 01/22/23 17:11 Dose: 4 mg Ondansetron HCl (Ondansetron 2 Mg/Ml Sdv 2 Ml) 4 mg IVP Q8H PRN PRN Reason: vomiting, or N/V if npo Last Admin: 01/24/23 20:50 Dose: 4 mg Spironolactone (Spironolactone 25 Mg Tablet) 25 mg PO DAILY [facility] Zolpidem Tartrate (Zolpidem 5 Mg Tablet) 10 mg PO BEDTIME [facility] Last Admin: 01/25/23 20:10 Dose: 10 mg Allergies egg Allergy (Verified 01/22/23 14:25) unknown Home Medications citalopram 40 mg tablet (Celexa) 40 mg PO QPM 01/31/20 [History Confirmed 01/23/23] zolpidem 10 mg tablet 10 mg PO BEDTIME 01/31/20 [History Confirmed 01/23/23] aspirin 81 mg tablet,delayed release (Adult Low Dose Aspirin) 162 mg PO QAM 01/20/21 [History Confirmed 01/23/23] cyanocobalamin (vitamin B-12) 50 mcg tablet (Vitamin B-12) 50 mcg PO QAM 11/30/21 [History Confirmed 01/23/23] montelukast 10 mg tablet 10 mg PO QAM 11/30/21 [History Confirmed 01/23/23] acetaminophen 500 mg tablet 1,000 mg PO Q6H PRN Pain 10/26/22 [History Confirmed 01/23/23] omeprazole 20 mg capsule,delayed release 20 mg PO BID 10/26/22 [History Confirmed 01/23/23] carvedilol 6.25 mg tablet 6.25 mg PO BID #180 tabs 10/28/22 [Rx Confirmed 01/23/23] albuterol sulfate 90 mcg/actuation aerosol inhaler 2 puff inhalation QID PRN Shortness Of Breath 11/10/22 [History Confirmed 01/23/23] nitroglycerin 0.4 mg sublingual tablet (Nitrostat) 0.4 mg sublingual Q5M PRN Chest Pain 11/10/22 [History Confirmed 01/23/23] midodrine 5 mg tablet 5 mg PO BID PRN Sbp less than 100 #20 tabs 01/02/23 [Rx Confirmed 01/23/23] furosemide 40 mg tablet (Lasix) 40 mg PO QAM 01/08/23 [History Confirmed 01/23/23] magnesium 200 mg tablet 200 mg PO QAM 01/08/23 [History Confirmed 01/23/23] potassium chloride 10 mEq tablet,extended release 20 meq PO QAM 01/08/23 [History Confirmed 01/23/23] spironolactone 25 mg tablet 25 mg PO QAM 01/08/23 [History Confirmed 01/23/23] polyethylene glycol 3350 17 gram/dose oral powder (Miralax) 17 g PO DAILY 01/10/23 [History Confirmed 01/23/23] sacubitril 97 mg-valsartan 103 mg tablet (Entresto) 1 tab PO BID 01/10/23 [History Confirmed 01/23/23] amiodarone 400 mg tablet 400 mg PO DAILY 30 days #30 tabs 01/18/23 [Rx Confirmed 01/23/23] apixaban 5 mg tablet (Eliquis) See Rx Instructions .Route .COMPLEX 01/19/23 [History Confirmed 01/23/23] hydrocodone 5 mg-acetaminophen 325 mg tablet 1 tab PO Q8H PRN pain #7 tabs 01/20/23 [Rx Confirmed 01/23/23] levofloxacin 500 mg tablet 500 mg PO DAILY 7 days #7 tabs 01/20/23 [Rx Confirmed 01/23/23] ondansetron 4 mg disintegrating tablet 4 mg PO Q6H PRN nausea and vomiting #14 tabs 01/20/23 [Rx Confirmed 01/23/23] Discharge Plan Discharge Patient Disposition: Xfer Short-Term Hosp Condition: Stable Prescriptions: No Action citalopram [Celexa] 40 mg tablet 40 mg PO QPM zolpidem 10 mg tablet 10 mg PO BEDTIME aspirin [Adult Low Dose Aspirin] 81 mg tablet,delayed release (DR/EC) 162 mg PO QAM Hold Instructions: Resume on 10/19/22. Until after percutaneous tube placed in the left kidney carvedilol 6.25 mg tablet 6.25 mg PO BID Qty: 180 2RF Hold Instructions: Resume on 01/12/23. Rx Instructions: must administer with a meal/food Vitamin B-12 50 mcg Tablet 50 mcg PO QAM montelukast 10 mg tablet 10 mg PO QAM furosemide [Lasix] 40 mg tablet 40 mg PO QAM potassium chloride 10 mEq tablet extended release 20 meq PO QAM Rx Instructions: Only take with Lasix spironolactone 25 mg tablet 25 mg PO QAM magnesium 200 mg tablet 200 mg PO QAM polyethylene glycol 3350 [Miralax] 17 gram/dose powder 17 g PO DAILY Entresto 97-103 mg Tablet 1 tab PO BID amiodarone 400 mg tablet 400 mg PO DAILY 30 Days Qty: 30 3RF Rx Instructions: START FROM 01/23 (not started as of 01/20/23 HAS TO FINISHED BID DOSE) hydrocodone-acetaminophen 5-325 mg tablet 1 tab PO Q8H PRN (Reason: pain) Qty: 7 0RF ondansetron 4 mg tablet,disintegrating 4 mg PO Q6H PRN (Reason: nausea and vomiting) Qty: 14 0RF acetaminophen 500 mg Tablet 1,000 mg PO Q6H PRN (Reason: Pain) omeprazole 20 mg capsule,delayed release(DR/EC) 20 mg PO BID nitroglycerin [Nitrostat] 0.4 mg Tablet, Sublingual 0.4 mg SUBLINGUAL Q5M PRN (Reason: Chest Pain) Rx Instructions: do not exceed 3 doses per episode albuterol sulfate 90 mcg/actuation HFA aerosol inhaler 2 puff INHALATION QID PRN (Reason: Shortness Of Breath) midodrine 5 mg Tablet 5 mg PO BID PRN (Reason: Sbp less than 100) Qty: 20 0RF Eliquis 5 mg tablet See Rx Instructions .ROUTE .COMPLEX Rx Instructions: take 10 mg po bid for next 7 days and thereafter 5 mg po BID. (STARTED 01/20/23 PER PT) levofloxacin 500 mg tablet 500 mg PO DAILY 7 Days Qty: 7 0RF Discharge Orders: Transfer Out of Facility (Order); Ordered 01/25/23 Ordered By: Beryl Dejesus Referrals: Mavis Peterson PA [Primary Care Provider] - Patient Instructions: Opioid Safety Transfer Attestations Time Spent in Transfer Care: greater than 30 min Status at Transfer: Cognitive status at transfer: cognitively intact; Behavioral status at transfer: cooperative; Quality Metrics Clinical Quality Measures [ No reported AMI, CVA or VTE this stay] Coding Level of Care Code Acute Code for g Fwd Diagnoses Cardiogenic shock R57.0 Ventricular fibrillation I49.01 Nonischemic cardiomyopathy I42.8 Chest pain R07.9 Chronic systolic (congestive) heart failure I50.22 GERRI (acute kidney injury) N17.9 Anemia D64.9
== END 2023-01-25 20:34 | disposition short-term general hospital (02) | DRG 314 ==
LOC: ER 17:19 → ICU 17:36
PROVIDERS: Admitting Provider Internal Medicine; Emergency Provider Emergency Medicine; PCP Physician Assistant; Visit Provider Student in an Organized Health Care Education/Training Program
DX: I95.9 Hypotension, unspecified (principal); I49.01 Ventricular fibrillation; R57.0 Cardiogenic shock; I42.8 Other cardiomyopathies; I13.0 Hypertensive heart and chronic kidney disease with heart failure and stage 1 through stage 4 chronic kidney disease, or unspecified chronic kidney disease; N17.9 Acute kidney failure, unspecified; E87.1 Hypo-osmolality and hyponatremia; I50.22 Chronic systolic (congestive) heart failure; N18.9 Chronic kidney disease, unspecified; I08.1 Rheumatic disorders of both mitral and tricuspid valves; D63.1 Anemia in chronic kidney disease; Z95.810 Presence of automatic (implantable) cardiac defibrillator; Z93.6 Other artificial openings of urinary tract status; Z86.718 Personal history of other venous thrombosis and embolism; Z79.82 Long term (current) use of aspirin; Z79.51 Long term (current) use of inhaled steroids; Z79.891 Long term (current) use of opiate analgesic; E87.6 Hypokalemia; Z87.442 Personal history of urinary calculi; E83.42 Hypomagnesemia; Z96.0 Presence of urogenital implants; F17.210 Nicotine dependence, cigarettes, uncomplicated; Z86.73 Personal history of transient ischemic attack (TIA), and cerebral infarction without residual deficits
CPT/HCPCS: 36415; 36416; 71045; 74018; 80048; 80053; 81001; 82962; 83605; 83735; 83880; 84145; 84443; 84484; 85025; 85610; 85730; 86140; 87040; 87086; 93005; 96365; 96367; 96372; 96374; 96375; 96376; 99285; 99291; J0131; J0461; J0610; J1200; J1250; J1650; J2270; J2405; J2550; J3010; J3475; J7030; J7040; J7060

== ENCOUNTER 2023-02-13 05:44 | Emergency (ER) | payer MEDICARE, MEDICAID, SELFPAY ==
[2023-02-13 05:45] VITALS: BP 95/54; PULSE 78; RESP 16; TEMP 36.6; O2SAT 99; BMI 23.3
--- NOTE | 2023-02-13 05:57 | ECG_ITS ---
Test Date: 2023-02-13 Pat Name: Elena Pulliam Department: Room: Gender: Female Specialty Cook: : 1970 Requested By: Jad Eagle Order Number: [id number] Arlette MD: Homer Canas M.D. Measurements Intervals [place] Rate: 75 P: 67 VT: 158 QRS: -49 QRSD: 137 T: 76 QT: 445 QTc: 500 Interpretive Statements ELECTRONIC VENTRICULAR PACEMAKER ABNORMAL RHYTHM ECG Compared to ECG 01/22/2023 16:25:41 Sinus rhythm no longer present Ventricular premature complex(es) no longer present Left-axis deviation no longer present Left bundle-branch block no longer present Electronically Signed On 02-13-2023 17:08:11 CDT by Homer Canas M.D. [email or web address]
[2023-02-13 06:08] VITALS: BP 111/80; PULSE 74; RESP 16; O2SAT 98
[2023-02-13 06:17] LABS: Basophils # 0.1 10^3/uL (0.0-0.1); Basophils % 1.4 %; Eosinophils # 0.1 10^3/uL (0.0-0.8); Eosinophils % 1.7 %; Hematocrit 37.3 % (37.0-47.0); Hemoglobin 11.7 g/dL (11.5-15.3); Lymphocytes # 1.7 10^3/uL (0.8-4.8); Lymphocytes % 20.7 %; Mean Corpuscular HGB Conc 31.4 g/dL (30.0-36.0); Mean Corpuscular Hemoglobin 30.5 pg (28.0-34.0); Mean Corpuscular Volume 97.1 fl (81-99); Mean Platelet Volume 10.6 fL (7.4-10.4); Monocytes # 0.7 10^3/uL (0.2-0.9); Monocytes % 8.6 %; Neutrophils # 5.37 10^3/uL (1.8-7.7); Neutrophils % 66.9 %; Nucleated Red Blood Cells % 0 %; Platelet Count 260 10^3/cmm (130-400); Red Blood Count 3.84 10^6/uL (4.1-5.3)
[2023-02-13] MEDS: lidocaine 2% viscous 15 ML, aluminum-mag hydrox-simethicon 30 ML, sucralfate oral liq 1 GM PO (06:26)
[2023-02-13 06:29] LABS: Alanine Aminotransferase 25 U/L (0-33); Albumin Level 3.9 g/dL (3.5-5.2); Alkaline Phosphatase 122 U/L (35-105); Aspartate Amino Transferase 30 U/L (0-32); Blood Urea Nitrogen 19 mg/dL (6-20); Calcium 9.3 mg/dL (8.5-10.5); Carbon Dioxide 21 mmol/L (22-29); Chloride 94 mmol/L (98-107); Glucose 83 mg/dL (65-115); Lipase 138 U/L (13-60); Osmolality Calculated 273 mOsm/kg (285-295); Sodium 131 mmol/L (136-145); Total Bilirubin 0.4 mg/dL (0.15-1.2); Total Protein 6.9 g/dL (6.6-8.7)
--- NOTE | 2023-02-13 06:29 | ED_ITS ---
HPI - Abdominal Pain General: Chief Complaint: Abdominal Pain Stated Complaint: Abdominal pain Time Seen by Provider: 02/13/23 05:56 Source: patient Mode of arrival: ambulatory History of Present Illness: 53-year-old female history of severe cardiomyopathy. Recently was hospitalized here transfer to an ICD placed. She comes in today complaining of epigastric abdominal pain she been very nauseated no vomiting denies any hematemesis coffee-ground emesis black tarry stools or hematochezia. She was previously on Eliquis states she was taken off of the during her recent hospitalization after she was transferred to [place] she is currently just taking 2 baby aspirin daily. She is not having any chest pain orthopnea or increased swelling. Most of her abdominal discomfort is epigastric and left upper quadrant. MD elicited complaint: abdominal pain Onset (ago): hour(s) Pain Consistency: constant Location: Epigastric and LUQ Severity: moderate Quality: cramping Exacerbating factors: nothing Relieving factors: nothing Associated Symptoms: Reports bloating and GI cramping; Denies anorexia, belching, change in bowel habits, change in stool character, chills, coffee ground emesis, constipation, diarrhea, dyspepsia, dysuria, excessive flatus, fever(s), heartburn, hematochezia, hematuria, hematemesis, fecal incontinence, loose stools, melena, nausea, poor appetite, syncope and vomiting Review of Systems Const: Denies: fever(s), chills, fatigue or malaise ENMT: Denies: throat pain, ear or mastoid pain, nasal discharge or nasal congestion Card: Denies: chest pain, palpitations, irregular heart rhythm, edema, swelling of feet/ankles or syncope Resp: Denies: dyspnea, productive cough, non-productive cough or wheezing GI: Reports: abdominal pain, bloating and GI cramping; Denies: nausea, vomiting, hematemesis, coffee ground emesis, heartburn, diarrhea, constipation, belching, excessive flatus, fecal incontinence, change in bowel habits, change in stool character, hematochezia or melena : Denies: flank pain, dysuria, urinary frequency, urinary urgency or hematuria Skin/Breast: Denies: rash or pruritus PFSH ED PFSH: Medical History Acute hypokalemia Acute on chronic systolic heart failure AICD discharge GERRI (acute kidney injury) Anemia Cardiogenic shock Chest pain Chest pain CHF (congestive heart failure) Chronic systolic (congestive) heart failure CKD (chronic kidney disease) Closed intertrochanteric fracture of left hip Defibrillator discharge Encounter for testing following appropriate discharge of implantable cardiover ter-defibrillator (ICD) History of recurrent UTIs History of TIA (transient ischemic attack) HTN (hypertension) Hydronephrosis, left Hypertension Hypokalemia Hypokalemia ICD (implantable cardioverter-defibrillator) in place Idiopathic ventricular fibrillation Liver mass Macrocytic anemia Mass of right lobe of liver ~3.5 x 4 cm, indeterminant, hypodense, first noted 11/2021 Nicotine dependence, cigarettes, uncomplicated Non-ischemic cardiomyopathy Nonischemic cardiomyopathy Severe diffuse hypokinesia of the left ventricle with an ejection fraction of 15 to 20%. Right ventricular appears to be normal size and ejection fraction. Mild biatrial enlargement. Thickened mitral valve. Moderately severe mitral regurgitation. [id number] tricuspid valve regurgitation. Thickened aortic valve. Compared to the study from 10/31/2022, ejection fraction appears to be declining Obstructive pyelonephritis (~11/2021) Oliguria Renal atrophy, left Syncope Urolithiasis Multi stone former. Complicated by at least 1 episode of obstructive pyelonephritis. Multiple procedures required to treat Ventricular tachycardia Weakness Surgical History Nephrostomy status S/P ureteral stent placement (~11/2021) Status post cholecystectomy Status post placement of cardiac pacemaker Family History Father , AT AGE 77 CAD (coronary artery disease) Cancer lung cancer Mother , AT AGE 60 Cancer OVARIAN Denies family history of Clotting disorder Anesthesia complication Bleeding disorder Social History Smoking and tobacco status: current every day smoker cigarettes Packs smoked per day: 0.5 Years cigarettes smoked: 45 Second hand smoke exposure: Yes Alcohol intake: current Substance/Drug Use: never Lives independently: Yes Marital status: service: No Current occupational status: disabled Current gender identity: Female Physical Exam Const: GENERAL APPEARANCE: cooperative and comfortable ORIENTATION/CONSCIOUSNESS: Yes awake, Yes oriented to person, Yes oriented to place and Yes oriented to time HENMT: COMMON NORMALS: normocephalic, atraumatic and hearing grossly normal bilaterally HEAD & SCALP: normocephalic and atraumatic Resp: COMMON NORMALS: normal respiratory effort, No retractions, No use of accessory muscles and clear to auscultation bilaterally AUSCULTATION: clear to auscultation bilaterally Cardio: COMMON NORMALS: regular rate, regular rhythm and No murmurs present (Cardio) RATE: regular rate RHYTHM: regular rhythm GI: COMMON NORMALS: No hepatosplenomegaly present AUSCULTATION: Yes normoactive bowel sounds PALPATION: Yes Tenderness to palpation present (GI) (Epigastric left upper quadrant), No Guarding due to palpation present (GI) and Yes No hepatosplenomegaly present Extremity: COMMON NORMALS: normal to inspection, capillary refill normal, no clubbing, cyanosis or edema, no calf tenderness and no pedal edema Neuro: SENSORIUM/ORIENTATION: Yes oriented to person, Yes oriented to place and Yes oriented to time Skin: COMMON NORMALS: no rashes or lesions noted GENERAL SKIN EXAM: no rashes or lesions noted Course Vital Signs: Vital signs: Vital Signs Temperature 97.9 F 02/13/23 05:45 Pulse Rate 69 02/13/23 08:56 Respiratory Rate 16 02/13/23 08:56 Blood Pressure 105/56 02/13/23 08:56 Pulse Oximetry 97 02/13/23 08:56 Oxygen Delivery Me thod Nasal Cannula 02/13/23 08:56 Oxygen Flow Rate 2 02/13/23 08:56 MDM - Abdominal Pain Medical Decision Making Labs and imaging reviewed with the patient. Lipase elevated but there is no s ignificant pancreatic changes on the CT. Reviewed case discussed with the patient we will treat her as an outpatient clear liquid diet for the next 48 to 72 hours. Antiemetics as needed return to the emergency room or follow-up with primary care for any worsening or changes symptoms. Continue all of her other current medications. Medical Records I reviewed the patient's medical records. Lab Data I reviewed the patient's lab results. 02/13/23 06:05 02/13/23 06:05 Labs/Radiology: Radiology Impressions Abdomen/Pelvis CT 02/13/23 06:37 IMPRESSION: 1. No significant change from prior exams to explain left lower quadrant pain. 2. Left-sided PCN remains in appropriate position. 3. Indeterminate mass in the right lobe of the liver again noted, concerning for malignancy. Recommend follow-up evaluation. COMMENTS: Evaluation of solid organs and vascular structures is limited as no IV contrast was administered. Laboratory Results WBC 8.0 10^3/uL (4.0-10.0) 02/13/23 06:05 RBC 3.84 10^6/uL (4.1-5.3) L 02/13/23 06:05 Hgb 11.7 g/dL (11.5-15.3) 02/13/23 06:05 Hct 37.3 % (37.0-47.0) 02/13/23 06:05 MCV 97.1 fl (81-99) 02/13/23 06:05 MCH 30.5 pg (28.0-34.0) 02/13/23 06:05 MCHC 31.4 g/dL (30.0-36.0) 02/13/23 06:05 RDW 15.0 % (12.1-15.1) 02/13/23 06:05 Plt Count 260 10^3/cmm (130-400) 02/13/23 06:05 MPV 10.6 fL (7.4-10.4) H 02/13/23 06:05 Neut % (Auto) 66.9 % 02/13/23 06:05 Lymph % (Auto) 20.7 % 02/13/23 06:05 Gibson % (Auto) 8.6 % 02/13/23 06:05 Eos % (Auto) 1.7 % 02/13/23 06:05 Baso % (Auto) 1.4 % 02/13/23 06:05 Neut # (Auto) 5.37 10^3/uL (1.8-7.7) 02/13/23 06:05 Lymph # (Auto) 1.7 10^3/uL (0.8-4.8) 02/13/23 06:05 Gibson # (Auto) 0.7 10^3/uL (0.2-0.9) 02/13/23 06:05 Eos # (Auto) 0.1 10^3/uL (0.0-0.8) 02/13/23 06:05 Baso # (Auto) 0.1 10^3/uL (0.0-0.1) 02/13/23 06:05 Nucleated RBC % (auto) 0 % 02/13/23 06:05 Nucleated RBCs # 0.0 /100WBC 02/13/23 06:05 Sodium 131 mmol/L (136-145) L 02/13/23 06:05 Potassium 4.0 mmol/L (3.5-5.1) 02/13/23 06:05 Chloride 94 mmol/L (98-107) L 02/13/23 06:05 Carbon Dioxide 21 mmol/L (22-29) L 02/13/23 06:05 Anion Gap 20.0 (5-19) H 02/13/23 06:05 BUN 19 mg/dL (6-20) 02/13/23 06:05 Creatinine 1.1 mg/dL (0.5-0.9) H 02/13/23 06:05 GFR Calculation 52.0 mL/min (90-130) L 02/13/23 06:05 Glucose 83 mg/dL (65-115) 02/13/23 06:05 Calculated Osmolality 273 mOsm/kg (285-295) L 02/13/23 06:05 Calcium 9.3 mg/dL (8.5-10.5) 02/13/23 06:05 Total Bilirubin 0.4 mg/dL (0.15-1.2) 02/13/23 06:05 AST 30 U/L (0-32) 02/13/23 06:05 ALT 25 U/L (0-33) 02/13/23 06:05 Alkaline Phosphatase 122 U/L (35-105) H 02/13/23 06:05 C-Reactive Protein 3.0 mg/L (0.0-4.9) 02/13/23 06:05 Total Protein 6.9 g/dL (6.6-8.7) 02/13/23 06:05 Albumin 3.9 g/dL (3.5-5.2) 02/13/23 06:05 Globulin 3.0 g/dL (1.3-4.6) 02/13/23 06:05 Lipase 138 U/L (13-60) H 02/13/23 06:05 Urine Color Yellow (Yellow) 02/13/23 06:24 Urine Appearance Cloudy (CLEAR) A 02/13/23 06:24 Urine pH 9 (5-7) H 02/13/23 06:24 Ur Specific [place] 1.010 (1.005-1.030) 02/13/23 06:24 Urine Protein 3+ (Negative) H 02/13/23 06:24 Urine Glucose (UA) Norm (Normal) 02/13/23 06:24 Urine Ketones Negative (Negative) 02/13/23 06:24 Urine Blood 3+ (Negative) H 02/13/23 06:24 Urine Nitrate Positive (Negative) H 02/13/23 06:24 Urine Bilirubin Neg (Negative) 02/13/23 06:24 Prot Sulfosalicylic Acd Positive (Negative) 02/13/23 06:24 Urine Urobilinogen Norm mg/dL (Negative) 02/13/23 06:24 Ur Leukocyte Esterase 2+ (Negative) H 02/13/23 06:24 Urine RBC 15-25 /hpf (0-2) H 02/13/23 06:24 Urine WBC 10-15 /hpf (0-5) H 02/13/23 06:24 Ur Squamous Epith Cells None /hpf (0-5) 02/13/23 06:24 Amorphous Sediment Not Reportable 02/13/23 06:24 Urine Bacteria 2+ /hpf (NONE) H 02/13/23 06:24 Discharge Plan Discharge Patient Disposition: Home Clinical Impression: Abdominal pain, Pancreatitis Condition: Stable Prescriptions: No Action citalopram [Celexa] 40 mg tablet 40 mg PO QPM zolpidem 10 mg tablet 10 mg PO BEDTIME aspirin [Adult Low Dose Aspirin] 81 mg tablet,delayed release (DR/EC) 162 mg PO QAM Hold Instructions: Resume on 10/19/22. Until after percutaneous tube placed in the left kidney carvedilol 6.25 mg tablet 6.25 mg PO BID Qty: 180 2RF Hold Instructions: Resume on 01/12/23. Rx Instructions: must administer with a meal/food Vitamin B-12 50 mcg Tablet 50 mcg PO QAM montelukast 10 mg tablet 10 mg PO QAM furosemide [Lasix] 40 mg tablet 40 mg PO BID potassium chloride 10 mEq tablet extended release 20 meq PO BID Rx Instructions: Only take with Lasix spironolactone 25 mg tablet 25 mg PO QAM magnesium 200 mg tablet 200 mg PO QAM polyethylene glycol 3350 [Miralax] 17 gram/dose powder 17 g PO DAILY Entresto 97-103 mg Tablet 1 tab PO BID amiodarone 400 mg tablet 400 mg PO DAILY 30 Days Qty: 30 3RF Rx Instructions: START FROM 01/23 (not started as of 01/20/23 HAS TO FINISHED BID DOSE) ondansetron 4 mg tablet,disintegrating 4 mg PO Q6H PRN (Reason: nausea and vomiting) Qty: 14 0RF acetaminophen 500 mg Tablet 1,000 mg PO Q6H PRN (Reason: Pain) omeprazole 20 mg capsule,delayed release(DR/EC) 20 mg PO BID nitroglycerin [Nitrostat] 0.4 mg Tablet, Sublingual 0.4 mg SUBLINGUAL Q5M PRN (Reason: Chest Pain) Rx Instructions: do not exceed 3 doses per episode albuterol sulfate 90 mcg/actuation HFA aerosol inhaler 2 puff INHALATION QID PRN (Reason: Shortness Of Breath) midodrine 5 mg Tablet 5 mg PO BID PRN (Reason: Sbp less than 100) Qty: 20 0RF lisinopril 5 mg tablet 5 mg PO DAILY Discharge Orders: Discharge ED (Routine); Ordered 02/13/23 Ordered By: Abiodun Stone Referrals: Mavis Peterson PA [Primary Care Provider] - Discharge Diet: Clear Liquid Discharge Activity: Limit activity as instructed Patient Instructions: Pancreatitis (ED), Abdominal Pain (ED), Opioid Safety, Pain Management Activity Restrictions/Additional Instructions: You are seen today for abdominal pain. CT was negative your laboratory studies showed a mild increase in your pancreatic enzyme recommend clear liquid diet for the next Evoxil series of 3 days. In the next 24 to 48 hours you should follow- up with your primary care doctor for repeat pancreatic enzymes. If your symptoms significantly worsen return to the emergency room. 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
--- NOTE | 2023-02-13 06:37 | CTR_ITS ---
PROCEDURE INFORMATION: Exam: CT Abdomen And Pelvis Without Contrast Exam date and time: 02/13/2023 6:49 AM Age: 53 years old Clinical indication: Abdominal pain; Localized; Left lower quadrant (llq); Prior surgery; Surgery date: 3-7 days post-operative; Surgery type: Pacemaker and left kidney port. Gb TECHNIQUE: Imaging protocol: Computed tomography of the abdomen and pelvis without contrast. Radiation optimization: All CT scans at this facility use at least one of these dose optimization techniques: automated exposure control; mA and/or kV adjustment per patient size (includes targeted exams where dose is matched to clinical indication); or iterative reconstruction. REPORTING DATA: Count of CT and Cardiac NM exams in prior 12 months: This patient has received 14 known CTs and 0 known cardiac nuclear medicine studies in the 12 months prior to the current study. COMPARISON: 1. CT abdomen pelvis wo con [id number] 12/30/2022 2:[address] angio chest PE protcl [id number] 01/02/2023 9:[address] kidney stone [id number] 12/26/2022 10:25 AM RADIATION DOSE METRICS: Total DLP (mGy-cm): 468.17 FINDINGS: Tubes, catheters and devices: Distal cardiac lead wires noted. Liver: Masslike area of hypoattenuation in hepatic segment 7 measuring 4.1 x 3.3 x 4.1 cm with possible lobular exophytic extension along the posterior margin of the liver. This is overall similar to prior exams. Gallbladder and bile ducts: The gallbladder is surgically absent. Pancreas: The pancreas appears normal. Spleen: Small splenule noted. The spleen appears unremarkable. Adrenal glands: The adrenals appear normal. Kidneys and ureters: Punctate right-sided nephrolithiasis. Mild prominence of the right-sided renal collecting system, similar to prior exams. No significant perinephric or periureteral fat stranding. No ureteral stones identified. Left-sided percutaneous nephrostomy noted in place. 4 mm stone again noted in the proximal right ureter unchanged from prior exams. Stomach and bowel: The stomach is unremarkable. The small bowel loops are not abnormally dilated. The large bowel loops are not abnormally dilated. Appendix: The appendix appears normal. Intraperitoneal space: No ascites or significant fluid collection. Vasculature: The aorta is nonaneurysmal. The IVC appears normal. Lymph nodes: There are no enlarged lymph nodes. Urinary bladder: The bladder is distended and demonstrates no focal contour abnormality. Reproductive: Unremarkable as visualized. Bones/joints: Left proximal femoral fixation hardware noted. Soft tissues: Multiple small focal areas of increased density in the superficial/subcutaneous fat overlying the abdominopelvic wall likely consistent with subcutaneous injection sites. CT/CT abdomen pelvis wo con [id number] IMPRESSION: 1. No significant change from prior exams to explain left lower quadrant pain. 2. Left-sided PCN remains in appropriate position. 3. Indeterminate mass in the right lobe of the liver again noted, concerning for malignancy. Recommend follow-up evaluation. COMMENTS: Evaluation of solid organs and vascular structures is limited as no IV contrast was administered.
[2023-02-13] MEDS: morphine 4 mg/mL SDV 1 mL 2 MG IVP ×2 (07:04→08:13)
[2023-02-13] MEDS: promethazine 25 mg/mL SDV 1 mL IM (07:04)
[2023-02-13] MEDS: sodium chloride 0.9% 250 ML IV (07:04)
[2023-02-13 07:11] LABS: Glucose Urine UA Norm (Normal); Protein Urine 3+ (Negative); Urine Appearance Cloudy (CLEAR); Urine Color Yellow (Yellow); pH Urine 9 (5-7)
[2023-02-13 07:12] LABS: Add Urine Microscopic? YES; Bilirubin Urine Neg (Negative); Blood Urine 3+ (Negative); Ketones Urine Negative (Negative); Leukocyte Esterase Urine 2+ (Negative); Nitrate Urine Positive (Negative); RBC Urine 15-25 /hpf (0-2); Sulfosalicylic Acid Urine Positive (Negative); Urobilinogen Urine Norm (Negative)
[2023-02-13 07:13] LABS: Add Urine Culture? Yes; Bacteria Urine 2+ /hpf
[2023-02-13] MEDS: cefTRIAXone 1,000 MG in sodium chloride 0.9% (plus) 50 ML 100 MG IV (07:44)
[2023-02-13 08:13] VITALS: RESP 14; O2SAT 97
[2023-02-13 08:56] VITALS: BP 105/56; PULSE 69; RESP 16; O2SAT 97
--- NOTE | 2023-02-13 09:46 | PC.PHAR ---
pts partner/ Jazmin takes care of pts meds- Jzamin sts pt is no longer taking eliquis 5 mg bib- instead takes two 81 mg asp. a day
== END 2023-02-13 10:12 | disposition home or self-care (01) ==
PROVIDERS: Emergency Medicine; Emergency Provider Family Medicine; PCP Physician Assistant
DX: K85.90 Acute pancreatitis without necrosis or infection, unspecified (principal); Z79.82 Long term (current) use of aspirin; I13.0 Hypertensive heart and chronic kidney disease with heart failure and stage 1 through stage 4 chronic kidney disease, or unspecified chronic kidney disease; N18.9 Chronic kidney disease, unspecified; I50.9 Heart failure, unspecified; Z86.73 Personal history of transient ischemic attack (TIA), and cerebral infarction without residual deficits; Z95.810 Presence of automatic (implantable) cardiac defibrillator; Z95.0 Presence of cardiac pacemaker; F17.210 Nicotine dependence, cigarettes, uncomplicated
CPT/HCPCS: 74176; 80053; 81001; 83690; 85025; 86140; 87086; 93005; 96365; 96372; 96375; 96376; 99285; J0696; J2270; J2550; J7050

== ENCOUNTER 2023-02-15 19:39 | Emergency (ER) | payer MEDICARE, MEDICAID, SELFPAY ==
[2023-02-15 19:47] VITALS: BP 115/79; PULSE 79; RESP 22; TEMP 36.9; O2SAT 99; BMI 24.1
--- NOTE | 2023-02-15 19:50 | ECG_ITS ---
[facility] Test Date: 2023-02-15 Pat Name: Elena Pulliam Department: Room: Gender: Female Licensed Clinical Psychologist: : 1970 Requested By: Marc Mora Order Number: [id number] Arlette MD: Michael Hill M.D. Measurements Intervals [place] Rate: 77 P: 50 OR: 163 QRS: -34 QRSD: 139 T: 48 QT: 438 QTc: 499 Interpretive Statements ELECTRONIC VENTRICULAR PACEMAKER ABNORMAL RHYTHM ECG Compared to ECG 02/13/2023 06:04:04 No significant changes Electronically Signed On 02-15-2023 21:03:39 CDT by Michael Hill M.D. [id number]
[2023-02-15 19:57] VITALS: O2SAT 98
--- NOTE | 2023-02-15 20:00 | ED_ITS ---
HPI - Abdominal Pain General: Chief Complaint: Abdominal Pain Stated Complaint: ABD PAIN Time Seen by Provider: 02/15/23 19:51 Source: EMS Mode of arrival: EMS Limitations: no limitations History of Present Illness: 53-year-old female well-known to ER she has history of chronic abdominal pain she states she seen here on the eighth she had a normal CT states she is continue to have abdominal pain since then its diffuse in nature without worse in her left lower quadrant she denies any fevers denies any vomiting she denies any worsening improving factors. She rates her pain a 9 out of 10 currently Associated Symptoms: Denies chills, diarrhea, dysuria, fever(s), nausea and vomiting Review of Systems Const: Denies: fever(s), chills, body aches or change in appetite Eyes: Denies: blurry vision or eye discomfort ENMT: Denies: throat pain or dental pain Card: Denies: chest pain Resp: Denies: dyspnea GI: Reports: abdominal pain; Denies: nausea, vomiting or diarrhea : Denies: dysuria Musc: Denies: neck pain or back pain Skin/Breast: Denies: rash Neuro: Denies: headache(s) PFSH ED PFSH: Medical History Acute hypokalemia Acute on chronic systolic heart failure AICD discharge GERRI (acute kidney injury) Anemia Cardiogenic shock Chest pain Chest pain CHF (congestive heart failure) Chronic systolic (congestive) heart failure CKD (chronic kidney disease) Closed intertrochanteric fracture of left hip Defibrillator discharge Encounter for testing following appropriate discharge of implantable cardioverter-defibrillator (ICD) History of recurrent UTIs History of TIA (transient ischemic attack) HTN (hypertension) Hydronephrosis, left Hypertension Hypokalemia Hypokalemia ICD (implantable cardioverter-defibrillator) in place Idiopathic ventricular fibrillation Liver mass Macrocytic anemia Mass of right lobe of liver ~3.5 x 4 cm, indeterminant, hypodense, first noted 11/2021 Nicotine dependence, cigarettes, uncomplicated Non-ischemic cardiomyopathy Nonischemic cardiomyopathy Severe diffuse hypokinesia of the left ventricle with an ejection fraction of 15 to 20%. Right ventricular appears to be normal size and ejection fraction. Mild biatrial enlargement. Thickened mitral valve. Moderately severe mitral regurgitation. [id number] tricuspid valve regurgitation. Thickened aortic valve. Compared to the study from 10/31/2022, ejection fraction appears to be declining Obstructive pyelonephritis (~11/2021) Oliguria Renal atrophy, left Syncope Urolithiasis Multi stone former. Complicated by at least 1 episode of obstructive py elonephritis. Multiple procedures required to treat Ventricular tachycardia Weakness Surgical History Nephrostomy status S/P ureteral stent placement (~11/2021) Status post cholecystectomy Status post placement of cardiac pacemaker Family History Father , AT AGE 77 CAD (coronary artery disease) Cancer lung cancer Mother , AT AGE 60 Cancer OVARIAN Denies family history of Clotting disorder Anesthesia complication Bleeding disorder Social History Smoking and tobacco status: current every day smoker cigarettes Packs smoked per day: 0.5 Years cigarettes smoked: 45 Second hand smoke exposure: Yes Alcohol intake: current Substance/Drug Use: never Lives independently: Yes Marital status: service: No Current occupational status: disabled Current gender identity: Female Physical Exam Const: COMMON NORMALS: no acute distress, patient oriented x3 and healthy appearing HENMT: COMMON NORMALS: normocephalic and atraumatic HEAD & SCALP: normocephalic and atraumatic Eye: COMMON NORMALS: conjunctivae normal CONJUNCTIVA: Yes conjunctivae normal Neck/C-Spine: COMMON NORMALS: full ROM and supple Chest: COMMONS NORMALS: normal inspection of the chest and normal palpation of entire chest wall Resp: COMMON NORMALS: normal respiratory effort, No retractions, No use of accessory muscles and clear to auscultation bilaterally AUSCULTATION: clear to auscultation bilaterally Cardio: COMMON NORMALS: regular rate, regular rhythm and No murmurs present (Cardio) RATE: regular rate RHYTHM: regular rhythm GI: COMMON NORMALS: Normal to inspection, nondistended, normoactive bowel sounds present, Soft to palpation, non-tender and no masses PALPATION: Yes Soft to palpation Extremity: COMMON NORMALS: normal to inspection and full ROM Neuro: COMMON NORMALS: patient oriented x3, moves all extremities and no focal motor deficits Psych: COMMON NORMALS: mental status grossly normal, Normal thought process present and cooperative THOUGHT PROCESS: Normal thought process present Skin: COMMON NORMALS: no rashes or lesions noted and no wounds GENERAL SKIN EXAM: no rashes or lesions noted Course Vital Signs: Vital signs: Vital Signs Temperature 98.5 F 02/15/23 19:47 Pulse Rate 70 02/15/23 22:55 Respiratory Rate 18 02/15/23 22:55 Blood Pressure 101/55 02/15/23 22:55 Pulse Oximetry 96 02/15/23 22:55 Oxygen Delivery Me thod Room Air 02/15/23 22:50 MDM - Abdominal Pain Medical Decision Making Patient presents with abdominal pain along with a UTI blood work is normal with normal white counts just had a CT done a few days ago she has no signs of acute surgical abdomen we will start her on Keflex she is to follow-up with PCP and return if worsening. Differential Diagnosis Likely abdominal pain; Unlikely acute appendicitis, diverticulitis, pancreatitis or small bowel obstruction Medical Records I reviewed the patient's medical records. Lab Data I reviewed the patient's lab results. 02/15/23 19:55 02/15/23 19:55 Labs/Radiology: Laboratory Results WBC 7.8 10^3/uL (4.0-10.0) 02/15/23 19:55 RBC 3.61 10^6/uL (4.1-5.3) L 02/15/23 19:55 Hgb 11.1 g/dL (11.5-15.3) L 02/15/23 19:55 Hct 35.3 % (37.0-47.0) L 02/15/23 19:55 MCV 97.8 fl (81-99) 02/15/23 19:55 MCH 30.7 pg (28.0-34.0) 02/15/23 19:55 MCHC 31.4 g/dL (30.0-36.0) 02/15/23 19:55 RDW 15.2 % (12.1-15.1) H 02/15/23 19:55 Plt Count 246 10^3/cmm (130-400) 02/15/23 19:55 MPV 10.7 fL (7.4-10.4) H 02/15/23 19:55 Neut % (Auto) 67.3 % 02/15/23 19:55 Lymph % (Auto) 22.2 % 02/15/23 19:55 [place] % (Auto) 7.2 % 02/15/23 19:55 Eos % (Auto) 1.9 % 02/15/23 19:55 Baso % (Auto) 0.9 % 02/15/23 19:55 Neut # (Auto) 5.27 10^3/uL (1.8-7.7) 02/15/23 19:55 Lymph # (Auto) 1.7 10^3/uL (0.8-4.8) 02/15/23 19:55 [place] # (Auto) 0.6 10^3/uL (0.2-0.9) 02/15/23 19:55 Eos # (Auto) 0.2 10^3/uL (0.0-0.8) 02/15/23 19:55 Baso # (Auto) 0.1 10^3/uL (0.0-0.1) 02/15/23 19:55 Nucleated RBC % (auto) 0 % 02/15/23 19:55 Nucleated RBCs # 0.0 /100WBC 02/15/23 19:55 Sodium 135 mmol/L (136-145) L 02/15/23 19:55 Potassium 3.5 mmol/L (3.5-5.1) 02/15/23 19:55 Chloride 97 mmol/L (98-107) L 02/15/23 19:55 Carbon Dioxide 25 mmol/L (22-29) 02/15/23 19:55 Anion Gap 16.5 (5-19) 02/15/23 19:55 BUN 21 mg/dL (6-20) H 02/15/23 19:55 Creatinine 1.1 mg/dL (0.5-0.9) H 02/15/23 19:55 GFR Calculation 52.0 mL/min (90-130) L 02/15/23 19:55 Glucose 81 mg/dL (65-115) 02/15/23 19:55 Calculated Osmolality 282 mOsm/kg (285-295) L 02/15/23 19:55 Calcium 8.7 mg/dL (8.5-10.5) 02/15/23 19:55 Total Bilirubin 0.3 mg/dL (0.15-1.2) 02/15/23 19:55 AST 30 U/L (0-32) 02/15/23 19:55 ALT 23 U/L (0-33) 02/15/23 19:55 Alkaline Phosphatase 119 U/L (35-105) H 02/15/23 19:55 Total Protein 6.5 g/dL (6.6-8.7) L 02/15/23 19:55 Albumin 3.8 g/dL (3.5-5.2) 02/15/23 19:55 Globulin 2.7 g/dL (1.3-4.6) 02/15/23 19:55 Lipase 104 U/L (13-60) H 02/15/23 19:55 Urine Color Yellow (Yellow) 02/15/23 20:14 Urine Appearance Cloudy (CLEAR) A 02/15/23 20:14 Urine pH 9 (5-7) H 02/15/23 20:14 Ur Specific [place] 1.015 (1.005-1.030) 02/15/23 20:14 Urine Protein 3+ (Negative) H 02/15/23 20:14 Urine Glucose (UA) Trace (Normal) H 02/15/23 20:14 Urine Ketones Negative (Negative) 02/15/23 20:14 Urine Blood 3+ (Negative) H 02/15/23 20:14 Urine Nitrate Positive (Negative) H 02/15/23 20:14 Urine Bilirubin Neg (Negative) 02/15/23 20:14 Prot Sulfosalicylic Acd Positive (Negative) 02/15/23 20:14 Urine Urobilinogen Neg mg/dL (Negative) 02/15/23 20:14 Ur Leukocyte Esterase 2+ (Negative) H 02/15/23 20:14 Urine RBC 80-100 /hpf (0-2) H 02/15/23 20:14 Urine WBC 25-40 /hpf (0-5) H 02/15/23 20:14 Ur Squamous Epith Cells 0-4 /hpf (0-5) H 02/15/23 20:14 Amorphous Sediment Not Reportable 02/15/23 20:14 Urine Bacteria 3+ /hpf (NONE) H 02/15/23 20:14 Urine Mucus 2+ /hpf 02/15/23 20:14 EKG Data EKG 1: I personally reviewed and interpreted this EKG as follows: EKG interpretation date: 02/15/23 EKG interpretation time: 19:59 Interpretation: paced hr [address] or t wave abnormalities qrs 139 qtc 470 Discharge Plan Discharge Patient Disposition: Home Clinical Impression: Acute cystitis Condition: Stable Prescriptions: New hydrocodone-acetaminophen 5-325 mg tablet 1 tab PO Q6H PRN (Reason: pain) Qty: 14 0RF cephalexin 500 mg capsule 500 mg PO TID 7 Days Qty: 21 0RF ondansetron 4 mg tablet,disintegrating 4 mg PO Q6H PRN (Reason: nausea and vomiting) Qty: 14 0RF No Action citalopram [Celexa] 40 mg tablet 40 mg PO QPM zolpidem 10 mg tablet 10 mg PO BEDTIME aspirin [Adult Low Dose Aspirin] 81 mg tablet,delayed release (DR/EC) 162 mg PO QAM Hold Instructions: Resume on 10/19/22. Until after percutaneous tube placed in the left kidney carvedilol 6.25 mg tablet 6.25 mg PO BID Qty: 180 2RF Hold Instructions: Resume on 01/12/23. Rx Instructions: must administer with a meal/food Vitamin B-12 50 mcg Tablet 50 mcg PO QAM montelukast 10 mg tablet 10 mg PO QAM furosemide [Lasix] 40 mg tablet 40 mg PO BID potassium chloride 10 mEq tablet extended release 20 meq PO BID Rx Instructions: Only take with Lasix spironolactone 25 mg tablet 25 mg PO QAM magnesium 200 mg tablet 200 mg PO QAM polyethylene glycol 3350 [Miralax] 17 gram/dose powder 17 g PO DAILY Entresto 97-103 mg Tablet 1 tab PO BID amiodarone 400 mg tablet 400 mg PO DAILY 30 Days Qty: 30 3RF Rx Instructions: START FROM 01/23 (not started as of 01/20/23 HAS TO FINISHED BID DOSE) ondansetron 4 mg tablet,disintegrating 4 mg PO Q6H PRN (Reason: nausea and vomiting) Qty: 14 0RF acetaminophen 500 mg Tablet 1,000 mg PO Q6H PRN (Reason: Pain) omeprazole 20 mg capsule,delayed release(DR/EC) 20 mg PO BID nitroglycerin [Nitrostat] 0.4 mg Tablet, Sublingual 0.4 mg SUBLINGUAL Q5M PRN (Reason: Chest Pain) Rx Instructions: do not exceed 3 doses per episode albuterol sulfate 90 mcg/actuation HFA aerosol inhaler 2 puff INHALATION QID PRN (Reason: Shortness Of Breath) midodrine 5 mg Tablet 5 mg PO BID PRN (Reason: Sbp less than 100) Qty: 20 0RF lisinopril 5 mg tablet 5 mg PO DAILY Discharge Orders: Discharge ED (Routine); Ordered 02/15/23 Ordered By: Marc Mora Referrals: Mavis Peterson PA [Primary Care Provider] - 1-3 days Discharge Diet: Advance as tolerated Discharge Activity: Resume usual activity Patient Instructions: Urinary Tract Infection in Women (ED) Coding Level of Care Code ED Marshmallow Machine Operator for Wesley Herrera
[2023-02-15] MEDS: LORazepam 2 mg/mL INJ 1 mL 1 MG IVP (20:01)
[2023-02-15] MEDS: sodium chloride 0.9% 1,000 ML 999 ML IV ×2 (20:01→21:10)
[2023-02-15] MEDS: haloperidol inj 5 mg/mL INJ 1 mL IVP (20:01)
[2023-02-15 20:03] VITALS: BP 114/71; PULSE 75; RESP 18; O2SAT 99
[2023-02-15 20:11] LABS: Basophils # 0.1 10^3/uL (0.0-0.1); Basophils % 0.9 %; Eosinophils # 0.2 10^3/uL (0.0-0.8); Eosinophils % 1.9 %; Hematocrit 35.3 % (37.0-47.0); Hemoglobin 11.1 g/dL (11.5-15.3); Lymphocytes # 1.7 10^3/uL (0.8-4.8); Lymphocytes % 22.2 %; Mean Corpuscular HGB Conc 31.4 g/dL (30.0-36.0); Mean Corpuscular Hemoglobin 30.7 pg (28.0-34.0); Mean Corpuscular Volume 97.8 fl (81-99); Mean Platelet Volume 10.7 fL (7.4-10.4); Monocytes # 0.6 10^3/uL (0.2-0.9); Monocytes % 7.2 %; Neutrophils # 5.27 10^3/uL (1.8-7.7); Neutrophils % 67.3 %; Nucleated Red Blood Cells % 0 %; Platelet Count 246 10^3/cmm (130-400); Red Blood Count 3.61 10^6/uL (4.1-5.3); Red Cell Distribution Width 15.2 % (12.1-15.1); White Blood Count 7.8 10^3/uL (4.0-10.0)
[2023-02-15 20:30] LABS: Alanine Aminotransferase 23 U/L (0-33); Albumin Level 3.8 g/dL (3.5-5.2); Alkaline Phosphatase 119 U/L (35-105); Anion Gap 16.5 (5-19); Aspartate Amino Transferase 30 U/L (0-32); Blood Urea Nitrogen 21 mg/dL (6-20); Calcium 8.7 mg/dL (8.5-10.5); Carbon Dioxide 25 mmol/L (22-29); Chloride 97 mmol/L (98-107); Globulin 2.7 g/dL (1.3-4.6); Glucose 81 mg/dL (65-115); Lipase 104 U/L (13-60); Osmolality Calculated 282 mOsm/kg (285-295); Potassium 3.5 mmol/L (3.5-5.1); Sodium 135 mmol/L (136-145); Total Bilirubin 0.3 mg/dL (0.15-1.2); Total Protein 6.5 g/dL (6.6-8.7)
[2023-02-15 20:32] LABS: Creatinine Clr Calc Pharmacy 56.4974
[2023-02-15 20:39] LABS: Specific Gravity, Urine 1.015 (1.005-1.030); Urine Appearance Cloudy (CLEAR); Urine Color Yellow (Yellow); pH Urine 9 (5-7)
[2023-02-15 20:40] LABS: Blood Urine 3+ (Negative); Glucose Urine UA Trace (Normal); Ketones Urine Negative (Negative); Nitrate Urine Positive (Negative); Protein Urine 3+ (Negative)
[2023-02-15 20:41] LABS: Add Urine Culture? Yes; Add Urine Microscopic? YES; Bacteria Urine 3+ /hpf; Bilirubin Urine Neg (Negative); Leukocyte Esterase Urine 2+ (Negative); Mucus Urine 2+ /hpf; RBC Urine 80-100 /hpf (0-2); Squamous Epithelial Cell Urine 0-4 /hpf (0-5); Sulfosalicylic Acid Urine Positive (Negative); Urobilinogen Urine Neg (Negative); WBC Urine 25-40 /hpf (0-5)
[2023-02-15] MEDS: cefTRIAXone 1,000 MG in sodium chloride 0.9% (plus) 50 ML 100 MG IV (20:59)
[2023-02-15 21:08] VITALS: BP 88/48; PULSE 67; RESP 18; O2SAT 90
[2023-02-15 22:50] VITALS: BP 101/55; PULSE 67; RESP 18; O2SAT 92
[2023-02-15 22:55] VITALS: BP 101/55; PULSE 70; RESP 18; O2SAT 96
== END 2023-02-15 23:04 | disposition home or self-care (01) ==
PROVIDERS: Emergency Provider Emergency Medicine; PCP Physician Assistant
DX: N30.00 Acute cystitis without hematuria (principal); Z79.82 Long term (current) use of aspirin; F17.210 Nicotine dependence, cigarettes, uncomplicated; Z95.0 Presence of cardiac pacemaker; E11.22 Type 2 diabetes mellitus with diabetic chronic kidney disease; I13.0 Hypertensive heart and chronic kidney disease with heart failure and stage 1 through stage 4 chronic kidney disease, or unspecified chronic kidney disease; N18.9 Chronic kidney disease, unspecified; I50.9 Heart failure, unspecified; Z86.73 Personal history of transient ischemic attack (TIA), and cerebral infarction without residual deficits
CPT/HCPCS: 80053; 81001; 83690; 85025; 87086; 93005; 96361; 96365; 96366; 96375; 99284; J0696; J1630; J2060; J7030

== ENCOUNTER 2023-02-19 16:31 | Emergency (ER) | payer MEDICARE, MEDICAID, SELFPAY ==
[2023-02-19 16:32] VITALS: BP 124/78; PULSE 83; RESP 22; O2SAT 100
--- NOTE | 2023-02-19 16:33 | XRR_ITS ---
PROCEDURE INFORMATION: Exam: XR Chest Exam date and time: 02/19/2023 4:42 PM Age: 53 years old Clinical indication: Pain; Chest pressure; Prior surgery; Surgery date: 6+ months; Surgery type: Pacemaker; Additional info: Cp TECHNIQUE: Imaging protocol: Radiologic exam of the chest. Views: 1 view. COMPARISON: CR XR chest 1V portable [id number] 01/22/2023 2:56 PM FINDINGS: Tubes, catheters and devices: AICD/pacer device noted in the left chest wall. Lungs: No consolidation. Pleural spaces: No pleural effusion. No pneumothorax. Heart/Mediastinum: No cardiomegaly. Bones/joints: Visualized osseous structures are intact. XR/XR chest 1V portable [id number] IMPRESSION: No acute findings.
--- NOTE | 2023-02-19 16:33 | ECG_ITS ---
[facility] Test Date: 2023-02-19 Pat Name: Elena Pulliam Department: Room: Gender: Female Oncology Specialist: : 1970 Requested By: Marc Mora Order Number: [id number] Arlette MD: Michael Hill M.D. Measurements Intervals [place] Rate: 81 P: 68 SD: 167 QRS: -46 QRSD: 134 T: 65 QT: 429 QTc: 499 Interpretive Statements ELECTRONIC VENTRICULAR PACEMAKER ABNORMAL RHYTHM ECG Compared to ECG 02/15/2023 19:59:08 No significant changes Electronically Signed On 02-19-2023 21:11:47 CDT by Michael Hill M.D. [id number]
--- NOTE | 2023-02-19 16:36 | ED_ITS ---
HPI - Chest Pain General: Chief Complaint: Chest Pain Stated Complaint: CHEST PAIN Time Seen by Provider: 02/19/23 16:32 Source: patient and EMS Mode of arrival: EMS Limitations: no limitations History of Present Illness: 53-year-old female who is very well-known to the ER has been seen here multiple times over the month states she woke up this morning at 4 AM with chest pain states the very sharp pain in the center of her chest she rates her pain a 7 out of 10 currently. She denies any fever or cough. She had a recent cardiac cath showed no blockage but does had severe heart failure and did have an AICD placed. Associated symptoms: Deny abdominal pain, dyspnea, fever(s), nausea or vomiting Review of Systems Const: Denies: fever(s), chills or change in appetite Eyes: Denies: eye discomfort ENMT: Denies: throat pain or dental pain Card: Reports: chest pain Resp: Denies: dyspnea GI: Denies: abdominal pain, nausea, vomiting or diarrhea : Denies: dysuria Musc: Denies: neck pain or back pain Skin/Breast: Denies: rash Neuro: Denies: headache(s) PFSH ED PFSH: Medical History Acute hypokalemia Acute on chronic systolic heart failure AICD discharge GERRI (acute kidney injury) Anemia Cardiogenic shock Chest pain Chest pain CHF (congestive heart failure) Chronic systolic (congestive) heart failure CKD (chronic kidney disease) Closed intertrochanteric fracture of left hip Defibrillator discharge Encounter for testing following appropriate discharge of implantable cardioverter-defibrillator (ICD) History of recurrent UTIs History of TIA (transient ischemic attack) HTN (hypertension) Hydronephrosis, left Hypertension Hypokalemia Hypokalemia ICD (implantable cardioverter-defibrillator) in place Idiopathic ventricular fibrillation Liver mass Macrocytic anemia Mass of right lobe of liver ~3.5 x 4 cm, indeterminant, hypodense, first noted 11/2021 Nicotine dependence, cigarettes, uncomplicated Non-ischemic cardiomyopathy Nonischemic cardiomyopathy Severe diffuse hypokinesia of the left ventricle with an ejection fraction of 15 to 20%. Right ventricular appears to be normal size and ejection fraction. Mild biatrial enlargement. Thickened mitral valve. Moderately severe mitral regurgitation. [id number] tricuspid valve regurgitation. Thickened aortic valve. Compared to the study from 10/31/2022, ejection fraction appears to be declining Obstructive pyelonephritis (~11/2021) Oliguria Renal atrophy, left Syncope Urolithiasis Multi stone former. Complicated by at least 1 episode of obstructive pyelonephritis. Multiple procedures required to treat Ventricular tachycardia Weakness Surgical History Nephrostomy status S/P ureteral stent placement (~11/2021) Status post cholecystectomy Status post placement of cardiac pacemaker Family History Father , AT AGE 77 CAD (coronary artery disease) Cancer lung cancer Mother , AT AGE 60 Cancer OVARIAN Denies family history of Clotting disorder Anesthesia complication Bleeding disorder Social History Smoking and tobacco status: current every day smoker cigarettes Packs smoked per day: 0.5 Years cigarettes smoked: 45 Second hand smoke exposure: Yes Alcohol intake: current Substance/Drug Use: never Lives independently: Yes Marital status: service: No Current occupational status: disabled Current gender identity: Female Physical Exam Const: COMMON NORMALS: no acute distress, patient oriented x3 and healthy appearing HENMT: COMMON NORMALS: normocephalic and atraumatic HEAD & SCALP: normocephalic and atraumatic Eye: COMMON NORMALS: conjunctivae normal CONJUNCTIVA: Yes conjunctivae nor mal Neck/C-Spine: COMMON NORMALS: full ROM and supple Chest: COMMONS NORMALS: normal inspection of the chest and normal palpation of entire chest wall Resp: COMMON NORMALS: normal respiratory effort, No retractions, No use of accessory muscles and clear to auscultation bilaterally AUSCULTATION: clear to auscultation bilaterally Cardio: COMMON NORMALS: regular rate, regular rhythm and No murmurs present (Cardio) RATE: regular rate RHYTHM: regular rhythm GI: COMMON NORMALS: Normal to inspection, nondistended, normoactive bowel sounds present, Soft to palpation, non-tender and no masses PALPATION: Yes Soft to palpation Extremity: COMMON NORMALS: normal to inspection and full ROM Neuro: COMMON NORMALS: patient oriented x3, moves all extremities and no focal motor deficits Psych: COMMON NORMALS: mental status grossly normal, Normal thought process present and cooperative THOUGHT PROCESS: Normal thought process present Skin: COMMON NORMALS: no rashes or lesions noted and no wounds GENERAL SKIN EXAM: no rashes or lesions noted Course Vital Signs: Vital signs: Vital Signs Pulse Rate 83 02/19/23 16:32 Respiratory Rate 22 H 02/19/23 16:32 Blood Pressure 102/63 02/19/23 17:30 Pulse Oximetry 95 02/19/23 16:55 Oxygen Delivery Me thod Room Air 02/19/23 16:55 MDM - Chest Pain Medical Decision Making Patient presents here with chest pains atypical in nature pain has been since 4 AM her troponin here is at her baseline she is pain-free now she had a cath just 2 months ago I feel she is stable for discharge she is no signs of acute coronary syndrome or dissection her pain is a 0 out of 10 currently she is to follow-up with her email campaign manager and return if worsening she understands agrees to plan. Medical Records I reviewed the patient's medical records. Lab Data I reviewed the patient's lab results. 02/19/23 16:48 02/19/23 16:48 Radiology Impressions Chest X-Ray 02/19/23 16:33 IMPRESSION: No acute findings. Laboratory Results WBC 7.3 10^3/uL (4.0-10.0) 02/19/23 16:48 RBC 3.37 10^6/uL (4.1-5.3) L 02/19/23 16:48 Hgb 10.5 g/dL (11.5-15.3) L 02/19/23 16:48 Hct 33.6 % (37.0-47.0) L 02/19/23 16:48 MCV 99.7 fl (81-99) H 02/19/23 16:48 MCH 31.2 pg (28.0-34.0) 02/19/23 16:48 MCHC 31.3 g/dL (30.0-36.0) 02/19/23 16:48 RDW 15.5 % (12.1-15.1) H 02/19/23 16:48 Plt Count 199 10^3/cmm (130-400) 02/19/23 16:48 MPV 10.8 fL (7.4-10.4) H 02/19/23 16:48 Neut % (Auto) 62.3 % 02/19/23 16:48 Lymph % (Auto) 26.9 % 02/19/23 16:48 [place] % (Auto) 6.2 % 02/19/23 16:48 Eos % (Auto) 3.0 % 02/19/23 16:48 Baso % (Auto) 1.1 % 02/19/23 16:48 Neut # (Auto) 4.54 10^3/uL (1.8-7.7) 02/19/23 16:48 Lymph # (Auto) 2.0 10^3/uL (0.8-4.8) 02/19/23 16:48 [place] # (Auto) 0.5 10^3/uL (0.2-0.9) 02/19/23 16:48 Eos # (Auto) 0.2 10^3/uL (0.0-0.8) 02/19/23 16:48 Baso # (Auto) 0.1 10^3/uL (0.0-0.1) 02/19/23 16:48 Nucleated RBC % (auto) 0 % 02/19/23 16:48 Nucleated RBCs # 0.0 /100WBC 02/19/23 16:48 Sodium 139 mmol/L (136-145) 02/19/23 16:48 Potassium 3.9 mmol/L (3.5-5.1) 02/19/23 16:48 Chloride 99 mmol/L (98-107) 02/19/23 16:48 Carbon Dioxide 25 mmol/L (22-29) 02/19/23 16:48 Anion Gap 18.9 (5-19) 02/19/23 16:48 BUN 18 mg/dL (6-20) 02/19/23 16:48 Creatinine 1.1 mg/dL (0.5-0.9) H 02/19/23 16:48 GFR Calculation 52.0 mL/min (90-130) L 02/19/23 16:48 Glucose 93 mg/dL (65-115) 02/19/23 16:48 Calculated Osmolality 290 mOsm/kg (285-295) 02/19/23 16:48 Calcium 8.9 mg/dL (8.5-10.5) 02/19/23 16:48 Total Bilirubin 0.4 mg/dL (0.15-1.2) 02/19/23 16:48 AST 23 U/L (0-32) 02/19/23 16:48 ALT 18 U/L (0-33) 02/19/23 16:48 Alkaline Phosphatase 117 U/L (35-105) H 02/19/23 16:48 Troponin T Baseline 12 ng/L (0-10) H 02/19/23 16:48 Total Protein 6.4 g/dL (6.6-8.7) L 02/19/23 16:48 Albumin 3.6 g/dL (3.5-5.2) 02/19/23 16:48 Globulin 2.8 g/dL (1.3-4.6) 02/19/23 16:48 EKG Data EKG 1: I personally reviewed and interpreted this EKG as follows: EKG interpretation date: 02/19/23 EKG interpretation time: 16:39 Interpretation: paced hr [address] r t wave abnormalities qrs 134 qtc 466 Discharge Plan Discharge Patient Disposition: Home Clinical Impression: Chest pain Condition: Stable Prescriptions: No Action citalopram [Celexa] 40 mg tablet 40 mg PO QPM zolpidem 10 mg tablet 10 mg PO BEDTIME aspirin [Adult Low Dose Aspirin] 81 mg tablet,delayed release (DR/EC) 162 mg PO QAM Hold Instructions: Resume on 10/19/22. Until after percutaneous tube placed in the left kidney carvedilol 6.25 mg tablet 6.25 mg PO BID Qty: 180 2RF Hold Instructions: Resume on 01/12/23. Rx Instructions: must administer with a meal/food Vitamin B-12 50 mcg Tablet 50 mcg PO QAM montelukast 10 mg tablet 10 mg PO QAM furosemide [Lasix] 40 mg tablet 40 mg PO BID potassium chloride 10 mEq tablet extended release 20 meq PO BID Rx Instructions: Only take with Lasix spironolactone 25 mg tablet 25 mg PO QAM magnesium 200 mg tablet 200 mg PO QAM polyethylene glycol 3350 [Miralax] 17 gram/dose powder 17 g PO DAILY Entresto 97-103 mg Tablet 1 tab PO BID amiodarone 400 mg tablet 400 mg PO DAILY 30 Days Qty: 30 3RF Rx Instructions: START FROM 01/23 (not started as of 01/20/23 HAS TO FINISHED BID DOSE) ondansetron 4 mg tablet,disintegrating 4 mg PO Q6H PRN (Reason: nausea and vomiting) Qty: 14 0RF acetaminophen 500 mg Tablet 1,000 mg PO Q6H PRN (Reason: Pain) omeprazole 20 mg capsule,delayed release(DR/EC) 20 mg PO BID nitroglycerin [Nitrostat] 0.4 mg Tablet, Sublingual 0.4 mg SUBLINGUAL Q5M PRN (Reason: Chest Pain) Rx Instructions: do not exceed 3 doses per episode albuterol sulfate 90 mcg/actuation HFA aerosol inhaler 2 puff INHALATION QID PRN (Reason: Shortness Of Breath) midodrine 5 mg Tablet 5 mg PO BID PRN (Reason: Sbp less than 100) Qty: 20 0RF lisinopril 5 mg tablet 5 mg PO DAILY hydrocodone-acetaminophen 5-325 mg tablet 1 tab PO Q6H PRN (Reason: pain) Qty: 14 0RF cephalexin 500 mg capsule 500 mg PO TID 7 Days Qty: 21 0RF ondansetron 4 mg tablet,disintegrating 4 mg PO Q6H PRN (Reason: nausea and vomiting) Qty: 14 0RF Discharge Orders: Discharge ED (Routine); Ordered 02/19/23 Ordered By: Marc Mora Referrals: Mavis Peterson PA [Primary Care Provider] - 1-3 days Discharge Diet: Advance as tolerated Discharge Activity: Resume usual activity Patient Instructions: Chest Pain (ED) Coding Level of Care Code ED Client Services Director for Wesley Herrera
[2023-02-19] MEDS: haloperidol inj 5 mg/mL INJ 1 mL IVP (16:39)
[2023-02-19] MEDS: LORazepam 2 mg/mL INJ 1 mL IVP (16:39)
[2023-02-19 16:55] VITALS: BP 124/78; O2SAT 95
[2023-02-19 17:12] LABS: Basophils # 0.1 10^3/uL (0.0-0.1); Basophils % 1.1 %; Eosinophils # 0.2 10^3/uL (0.0-0.8); Hematocrit 33.6 % (37.0-47.0); Hemoglobin 10.5 g/dL (11.5-15.3); Lymphocytes % 26.9 %; Mean Corpuscular HGB Conc 31.3 g/dL (30.0-36.0); Mean Corpuscular Hemoglobin 31.2 pg (28.0-34.0); Mean Corpuscular Volume 99.7 fl (81-99); Mean Platelet Volume 10.8 fL (7.4-10.4); Monocytes # 0.5 10^3/uL (0.2-0.9); Monocytes % 6.2 %; Neutrophils # 4.54 10^3/uL (1.8-7.7); Neutrophils % 62.3 %; Nucleated Red Blood Cells % 0 %; Platelet Count 199 10^3/cmm (130-400); Red Blood Count 3.37 10^6/uL (4.1-5.3); Red Cell Distribution Width 15.5 % (12.1-15.1); White Blood Count 7.3 10^3/uL (4.0-10.0)
[2023-02-19 17:30] VITALS: BP 102/63
[2023-02-19 17:38] LABS: Alanine Aminotransferase 18 U/L (0-33); Albumin Level 3.6 g/dL (3.5-5.2); Alkaline Phosphatase 117 U/L (35-105); Anion Gap 18.9 (5-19); Aspartate Amino Transferase 23 U/L (0-32); Blood Urea Nitrogen 18 mg/dL (6-20); Calcium 8.9 mg/dL (8.5-10.5); Carbon Dioxide 25 mmol/L (22-29); Chloride 99 mmol/L (98-107); Globulin 2.8 g/dL (1.3-4.6); Glucose 93 mg/dL (65-115); Osmolality Calculated 290 mOsm/kg (285-295); Potassium 3.9 mmol/L (3.5-5.1); Sodium 139 mmol/L (136-145); Total Bilirubin 0.4 mg/dL (0.15-1.2); Total Protein 6.4 g/dL (6.6-8.7); Troponin(5th) Baseline 12 ng/L (0-10)
== END 2023-02-19 17:54 | disposition home or self-care (01) ==
PROVIDERS: Emergency Provider Emergency Medicine; PCP Physician Assistant
DX: R07.9 Chest pain, unspecified (principal); Z79.82 Long term (current) use of aspirin; I13.0 Hypertensive heart and chronic kidney disease with heart failure and stage 1 through stage 4 chronic kidney disease, or unspecified chronic kidney disease; N18.9 Chronic kidney disease, unspecified; I50.22 Chronic systolic (congestive) heart failure; Z86.73 Personal history of transient ischemic attack (TIA), and cerebral infarction without residual deficits; Z95.810 Presence of automatic (implantable) cardiac defibrillator; F17.210 Nicotine dependence, cigarettes, uncomplicated
CPT/HCPCS: 71045; 80053; 84484; 85025; 93005; 96374; 96375; 99285; J1630; J2060

== ENCOUNTER 2023-02-27 06:31 | Emergency (ER) | payer MEDICARE, MEDICAID, SELFPAY ==
[2023-02-27] VITALS (8 sets, daily range): BP systolic 107–120; BP diastolic 62–72; PULSE 72–89; RESP 16–24; TEMP 36.3; O2SAT 93–100; BMI 23.3
--- NOTE | 2023-02-27 06:32 | ECG_ITS ---
[facility] Test Date: 2023-02-27 Pat Name: Elena Pulliam Department: Room: Gender: Female Service Order Clerk: : 1970 Requested By: Abiodun Johnson Order Number: [id number] Arlette MD: Pola Ferrera M.D. Measurements Intervals [place] Rate: 79 P: 59 UT: 158 QRS: -47 QRSD: 140 T: 4 QT: 352 QTc: 405 Interpretive Statements ELECTRONIC VENTRICULAR PACEMAKER Compared to ECG 02/19/2023 16:39:54 No significant changes Electronically Signed On 02-27-2023 16:29:42 CDT by Pola Ferrera M.D. [id number]
--- NOTE | 2023-02-27 06:36 | XRR_ITS ---
PROCEDURE INFORMATION: Exam: XR Chest Exam date and time: 02/27/2023 7:14 AM Age: 53 years old Clinical indication: Cough and dyspnea; Additional info: Dyspnea/cough/chf TECHNIQUE: Imaging protocol: Radiologic exam of the chest. Views: 1 view. COMPARISON: CR (CHEST, ) 02/19/2023 4:42 PM FINDINGS: Tubes, catheters and devices: Cardiac device projects over the left chest with multiple intracardiac leads. Lungs: Unremarkable. No consolidation. Pleural spaces: Unremarkable. No pleural effusion. No pneumothorax. Heart/Mediastinum: Cardiomediastinal silhouette is similar. Bones/joints: Degenerative change of the spine. XR/XR chest 1V portable [id number] IMPRESSION: No acute cardiopulmonary process.
--- NOTE | 2023-02-27 06:42 | W.ED.ABDPA2 ---
HPI - Abdominal Pain General: Chief Complaint: Abdominal Pain Stated Complaint: abd pain Time Seen by Provider: 02/27/23 06:32 Source: patient Mode of arrival: EMS History of Present Illness: 53-year-old female presents to the emergency room complaining of epigastric abdominal pain that began overnight. Patient has a history of nonischemic cardiomyopathy has a implantable defibrillator that was recently placed. She has not had any discharges from her ICD. She is not really having chest pain at this time but is complaining more of epigastric pain she denies dysuria urgency or frequency. She has been very nauseated. She is presented to the emergency room with similar complaints multiple times in the past last time earlier this month was associated with a cystitis. She not had any fever no diarrhea. No hematemesis or coffee-ground emesis. No particular chest pain or shortness of breath she is not having any orthopnea. Most recent ejection fraction was 15 to 20%. MD elicited complaint: abdominal pain Onset (ago): hour(s) (36) Pain Consistency: constant Location: Epigastric Quality: cramping Radiation: none Exacerbating factors: nothing Relieving factors: nothing Associated Symptoms: Reports GI cramping and nausea; Denies anorexia, belching, bloating, change in bowel habits, change in stool character, chills, coffee ground emesis, constipation, diarrhea, dyspepsia, dysuria, excessive flatus, fever(s), heartburn, hematochezia, hematuria, hematemesis, fecal incontinence, loose stools, melena, poor appetite, syncope and vomiting Review of Systems Const: Denies: fever(s), chills, fatigue or malaise Card: Denies: chest pain, palpitations, edema, swelling of feet/ankles or syncope Resp: Denies: dyspnea, productive cough or non-productive cough GI: Reports: abdominal pain, nausea and GI cramping; Denies: vomiting, hematemesis, coffee ground emesis, heartburn, diarrhea, constipation, bloating, belching, excessive flatus, fecal incontinence, change in bowel habits, change in stool character, hematochezia or melena : Denies: dysuria, urinary frequency, urinary urgency or hematuria Skin/Breast: Denies: rash or pruritus PFSH ED PFSH: Medical History Acute hypokalemia Acute on chronic systolic heart failure AICD discharge GERRI (acute kidney injury) Anemia Cardiogenic shock Chest pain Chest pain CHF (congestive heart failure) Chronic systolic (congestive) heart failure CKD (chronic kidney disease) Closed intertrochanteric fracture of left hip Defibrillator discharge Encounter for testing following appropriate discharge of implantable cardioverter-defibrillator (ICD) History of recurrent UTIs History of TIA (transient ischemic attack) HTN (hypertension) Hydronephrosis, left Hypertension Hypokalemia Hypokalemia ICD (implantable cardioverter-defibrillator) in place Idiopathic ventricular fibrillation Liver mass Macrocytic anemia Mass of right lobe of liver ~3.5 x 4 cm, indeterminant, hypodense, first noted 11/2021 Nicotine dependence, cigarettes, uncomplicated Non-ischemic cardiomyopathy Nonischemic cardiomyopathy Severe diffuse hypokinesia of the left ventricle with an ejection fraction of 15 to 20%. Right ventricular appears to be normal size and ejection fraction. Mild biatrial enlargement. Thickened mitral valve. Moderately severe mitral regurgitation. [id number] tricuspid valve regurgitation. Thickened aortic valve. Compared to the study from 10/31/2022, ejection fraction appears to be declining Obstructive pyelonephritis (~11/2021) Oliguria Renal atrophy, left Syncope Urolithiasis Multi stone former. Complicated by at least 1 episode of obstructive pyelonephritis. Multiple procedures required to treat Ventricular tachycardia Weakness Surgical History Nephrostomy status S/P ureteral stent placement (~11/2021) Status post cholecystectomy Status post placement of cardiac pacemaker Family History Father , AT AGE 77 CAD (coronary artery disease) Cancer lung cancer Mother , AT AGE 60 Cancer OVARIAN Denies family history of Clotting disorder Anesthesia complication Bleeding disorder Social History Smoking and tobacco status: current every day smoker cigarettes Packs smoked per day: 0.5 Years cigarettes smoked: 45 Second hand smoke exposure: Yes Alcohol intake: current Substance/Drug Use: never Lives independently: Yes Marital status: service: No Current occupational status: disabled Current gender identity: Female Physical Exam Const: GENERAL APPEARANCE: cooperative and comfortable ORIENTATION/CONSCIOUSNESS: Yes awake, Yes oriented to person, Yes oriented to place and Yes oriented to time HENMT: COMMON NORMALS: normocephalic, atraumatic and hearing grossly normal bilaterally HEAD & SCALP: normocephalic and atraumatic Resp: COMMON NORMALS: normal respiratory effort, No retractions, No use of accessory muscles and clear to auscultation bilaterally AUSCULTATION: clear to auscultation bilaterally Cardio: COMMON NORMALS: regular rate, regular rhythm and No murmurs present (Cardio) RATE: regular rate RHYTHM: regular rhythm GI: COMMON NORMALS: No hepatosplenomegaly present AUSCULTATION: Yes normoactive bowel sounds PALPATION: Yes Tenderness to palpation present (GI) (Epigastric), No Guarding due to palpation present (GI) and Yes No hepatosplenomegaly present : COMMON NORMALS: Yes no CVA tenderness BLADDER/KIDNEY EXAM: Yes no CVA tenderness Back/Pelvis: COMMON NORMALS: no CVA tenderness Extremity: COMMON NORMALS: normal to inspection, capillary refill normal, no clubbing, cyanosis or edema, no calf tenderness and no pedal edema Neuro: SENSORIUM/ORIENTATION: Yes oriented to person, Yes oriented to place and Yes oriented to time Skin: COMMON NORMALS: no rashes or lesions noted GENERAL SKIN EXAM: no rashes or lesions noted Course Vital Signs: Vital signs: Vital Signs Temperature 97.3 F L 02/27/23 06:38 Pulse Rate 72 02/27/23 10:18 Respiratory Rate 16 02/27/23 10:18 Blood Pressure 107/62 02/27/23 10:18 Pulse Oximetry 93 02/27/23 10:18 Oxygen Delivery Me thod Room Air 02/27/23 06:38 MDM - Abdominal Pain Medical Decision Making Patient improved after GI cocktail. Symptoms resolved cardiac enzymes and EKGs did not show anything acute she is paced on her EKGs there is no evidence of Sgarbossa's criteria. Discharge patient home switch her from omeprazole to pantoprazole 40 twice daily for 2 weeks Carafate as needed. Follow-up with her primary care return if worsens Medical Records I reviewed the patient's medical records. Lab Data I reviewed the patient's lab results. 02/27/23 06:35 02/27/23 06:35 Labs/Radiology: Radiology Impressions Chest X-Ray 02/27/23 06:36 IMPRESSION: No acute cardiopulmonary process. Laboratory Results WBC 7.2 10^3/uL (4.0-10.0) 02/27/23 06:35 RBC 3.61 10^6/uL (4.1-5.3) L 02/27/23 06:35 Hgb 11.4 g/dL (11.5-15.3) L 02/27/23 06:35 Hct 35.4 % (37.0-47.0) L 02/27/23 06:35 MCV 98.1 fl (81-99) 02/27/23 06:35 MCH 31.6 pg (28.0-34.0) 02/27/23 06:35 MCHC 32.2 g/dL (30.0-36.0) 02/27/23 06:35 RDW 15.9 % (12.1-15.1) H 02/27/23 06:35 Plt Count 168 10^3/cmm (130-400) 02/27/23 06:35 MPV 10.5 fL (7.4-10.4) H 02/27/23 06:35 Neut % (Auto) 65.2 % 02/27/23 06:35 Lymph % (Auto) 23.5 % 02/27/23 06:35 [place] % (Auto) 7.9 % 02/27/23 06:35 Eos % (Auto) 1.5 % 02/27/23 06:35 Baso % (Auto) 1.1 % 02/27/23 06:35 Neut # (Auto) 4.70 10^3/uL (1.8-7.7) 02/27/23 06:35 Lymph # (Auto) 1.7 10^3/uL (0.8-4.8) 02/27/23 06:35 [place] # (Auto) 0.6 10^3/uL (0.2-0.9) 02/27/23 06:35 Eos # (Auto) 0.1 10^3/uL (0.0-0.8) 02/27/23 06:35 Baso # (Auto) 0.1 10^3/uL (0.0-0.1) 02/27/23 06:35 Nucleated RBC % (auto) 0 % 02/27/23 06:35 Nucleated RBCs # 0.0 /100WBC 02/27/23 06:35 Sodium 138 mmol/L (136-145) 02/27/23 06:35 Potassium 3.8 mmol/L (3.5-5.1) 02/27/23 06:35 Chloride 103 mmol/L (98-107) 02/27/23 06:35 Carbon Dioxide 22 mmol/L (22-29) 02/27/23 06:35 Anion Gap 16.8 (5-19) 02/27/23 06:35 BUN 23 mg/dL (6-20) H 02/27/23 06:35 Creatinine 0.9 mg/dL (0.5-0.9) 02/27/23 06:35 GFR Calculation 65.5 mL/min (90-130) L 02/27/23 06:35 Glucose 79 mg/dL (65-115) 02/27/23 06:35 Calculated Osmolality 289 mOsm/kg (285-295) 02/27/23 06:35 Calcium 8.3 mg/dL (8.5-10.5) L 02/27/23 06:35 Total Bilirubin 0.4 mg/dL (0.15-1.2) 02/27/23 06:35 AST 19 U/L (0-32) 02/27/23 06:35 ALT 14 U/L (0-33) 02/27/23 06:35 Alkaline Phosphatase 105 U/L (35-105) 02/27/23 06:35 Troponin T Baseline 12 ng/L (0-10) H 02/27/23 06:35 Troponin T 120 Minute 11.25 ng/L (0-10) H 02/27/23 08:28 Delta Troponin T -0.75 ABS# (0-10) L 02/27/23 08:28 Total Protein 6.1 g/dL (6.6-8.7) L 02/27/23 06:35 Albumin 3.5 g/dL (3.5-5.2) 02/27/23 06:35 Globulin 2.6 g/dL (1.3-4.6) 02/27/23 06:35 Lipase 40 U/L (13-60) 02/27/23 06:35 Urine Color Straw (Yellow) 02/27/23 06:51 Urine Appearance Cloudy (CLEAR) A 02/27/23 06:51 Urine pH 9 (5-7) H 02/27/23 06:51 Ur Specific [place] 1.010 (1.005-1.030) 02/27/23 06:51 Urine Protein 3+ (Negative) H 02/27/23 06:51 Urine Glucose (UA) Norm (Normal) 02/27/23 06:51 Urine Ketones Negative (Negative) 02/27/23 06:51 Urine Blood 3+ (Negative) H 02/27/23 06:51 Urine Nitrate Negative (Negative) 02/27/23 06:51 Urine Bilirubin Neg (Negative) 02/27/23 06:51 Prot Sulfosalicylic Acd Positive (Negative) 02/27/23 06:51 Urine Urobilinogen Norm mg/dL (Negative) 02/27/23 06:51 Ur Leukocyte Esterase 2+ (Negative) H 02/27/23 06:51 Urine RBC Too numerous to cnt /hpf (0-2) H 02/27/23 06:51 Urine WBC Too numerous to cnt /hpf (0-5) H 02/27/23 06:51 Ur Squamous Epith Cells 0-4 /hpf (0-5) H 02/27/23 06:51 Amorphous Sediment Not Reportable 02/27/23 06:51 Urine Bacteria 3+ /hpf (NONE) H 02/27/23 06:51 Urine Mucus Trace /hpf 02/27/23 06:51 Discharge Plan Discharge Patient Disposition: Home Clinical Impression: Abdominal pain Condition: Stable Prescriptions: New pantoprazole 40 mg tablet,delayed release (DR/EC) 40 mg PO BID 14 Days Qty: 28 0RF Carafate 1 gram tablet 1 g PO Q6H PRN (Reason: dyspepsia) 28 Days Qty: 112 0RF Discontinued omeprazole 20 mg capsule,delayed release(DR/EC) 20 mg PO BID No Action citalopram [Celexa] 40 mg tablet 40 mg PO QPM zolpidem 10 mg tablet 10 mg PO BEDTIME aspirin [Adult Low Dose Aspirin] 81 mg tablet,delayed release (DR/EC) 162 mg PO QAM Hold Instructions: Resume on 10/19/22. Until after percutaneous tube placed in the left kidney carvedilol 6.25 mg tablet 6.25 mg PO BID Qty: 180 2RF Hold Instructions: Resume on 01/12/23. Rx Instructions: must administer with a meal/food Vitamin B-12 50 mcg Tablet 50 mcg PO QAM montelukast 10 mg tablet 10 mg PO QAM furosemide [Lasix] 40 mg tablet 40 mg PO BID potassium chloride 10 mEq tablet extended release 20 meq PO BID Rx Instructions: Only take with Lasix spironolactone 25 mg tablet 25 mg PO QAM magnesium 200 mg tablet 200 mg PO QAM polyethylene glycol 3350 [Miralax] 17 gram/dose powder 17 g PO DAILY Entresto 97-103 mg Tablet 1 tab PO BID amiodarone 400 mg tablet 400 mg PO DAILY 30 Days Qty: 30 3RF Rx Instructions: START FROM 01/23 (not started as of 01/20/23 HAS TO FINISHED BID DOSE) ondansetron 4 mg tablet,disintegrating 4 mg PO Q6H PRN (Reason: nausea and vomiting) Qty: 14 0RF acetaminophen 500 mg Tablet 1,000 mg PO Q6H PRN (Reason: Pain) nitroglycerin [Nitrostat] 0.4 mg Tablet, Sublingual 0.4 mg SUBLINGUAL Q5M PRN (Reason: Chest Pain) Rx Instructions: do not exceed 3 doses per episode albuterol sulfate 90 mcg/actuation HFA aerosol inhaler 2 puff INHALATION QID PRN (Reason: Shortness Of Breath) midodrine 5 mg Tablet 5 mg PO BID PRN (Reason: Sbp less than 100) Qty: 20 0RF lisinopril 5 mg tablet 5 mg PO DAILY hydrocodone-acetaminophen 5-325 mg tablet 1 tab PO Q6H PRN (Reason: pain) Qty: 14 0RF ondansetron 4 mg tablet,disintegrating 4 mg PO Q6H PRN (Reason: nausea and vomiting) Qty: 14 0RF Discharge Orders: Discharge ED (Routine); Ordered 02/27/23 Ordered By: Abiodun Stone Referrals: Mavis Peterson PA [Primary Care Provider] - Discharge Diet: As Directed Discharge Activity: Increase activity as tolerated Patient Instructions: Abdominal Pain (ED), Opioid Safety, Pain Management Activity Restrictions/Additional Instructions: You are seen today for abdominal discomfort. Recommend you hold the omeprazole start pantoprazole 40 mg twice daily use Carafate 1 every 6 hours as needed for stomach upset. Avoid fatty foods fried foods spicy foods any acidic foods such as tomato-based products and any carbonated beverages. Follow-up with your primary care doctor within the next 2 weeks. 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
[2023-02-27] MEDS: promethazine 25 mg/mL SDV 1 mL IM (06:43)
[2023-02-27] MEDS: morphine 4 mg/mL SDV 1 mL IVP ×2 (06:45→08:57)
[2023-02-27 06:48] LABS: Basophils # 0.1 10^3/uL (0.0-0.1); Basophils % 1.1 %; Eosinophils # 0.1 10^3/uL (0.0-0.8); Eosinophils % 1.5 %; Hematocrit 35.4 % (37.0-47.0); Hemoglobin 11.4 g/dL (11.5-15.3); Lymphocytes # 1.7 10^3/uL (0.8-4.8); Lymphocytes % 23.5 %; Mean Corpuscular HGB Conc 32.2 g/dL (30.0-36.0); Mean Corpuscular Hemoglobin 31.6 pg (28.0-34.0); Mean Corpuscular Volume 98.1 fl (81-99); Mean Platelet Volume 10.5 fL (7.4-10.4); Monocytes # 0.6 10^3/uL (0.2-0.9); Monocytes % 7.9 %; Neutrophils % 65.2 %; Nucleated Red Blood Cells % 0 %; Platelet Count 168 10^3/cmm (130-400); Red Blood Count 3.61 10^6/uL (4.1-5.3); Red Cell Distribution Width 15.9 % (12.1-15.1); White Blood Count 7.2 10^3/uL (4.0-10.0)
[2023-02-27 07:08] LABS: Alanine Aminotransferase 14 U/L (0-33); Albumin Level 3.5 g/dL (3.5-5.2); Alkaline Phosphatase 105 U/L (35-105); Anion Gap 16.8 (5-19); Aspartate Amino Transferase 19 U/L (0-32); Blood Urea Nitrogen 23 mg/dL (6-20); Calcium 8.3 mg/dL (8.5-10.5); Carbon Dioxide 22 mmol/L (22-29); Chloride 103 mmol/L (98-107); Globulin 2.6 g/dL (1.3-4.6); Glomerular Filtration Rate 65.5 mL/min (90-130); Glucose 79 mg/dL (65-115); Lipase 40 U/L (13-60); Osmolality Calculated 289 mOsm/kg (285-295); Potassium 3.8 mmol/L (3.5-5.1); Sodium 138 mmol/L (136-145); Total Bilirubin 0.4 mg/dL (0.15-1.2); Total Protein 6.1 g/dL (6.6-8.7)
[2023-02-27 07:09] LABS: Troponin(5th) Baseline 12 ng/L (0-10)
[2023-02-27 07:36] LABS: Bilirubin Urine Neg (Negative); Blood Urine 3+ (Negative); Glucose Urine UA Norm (Normal); Ketones Urine Negative (Negative); Nitrate Urine Negative (Negative); Protein Urine 3+ (Negative); Sulfosalicylic Acid Urine Positive (Negative); Urine Appearance Cloudy (CLEAR); Urine Color Straw (Yellow); Urobilinogen Urine Norm (Negative); pH Urine 9 (5-7)
[2023-02-27 07:37] LABS: Add Urine Culture? Yes; Add Urine Microscopic? YES; Bacteria Urine 3+ /hpf; Leukocyte Esterase Urine 2+ (Negative); Mucus Urine TRACE /hpf; RBC Urine TOO NUMEROUS TO CNT /hpf (0-2); Squamous Epithelial Cell Urine 0-4 /hpf (0-5); WBC Urine TOO NUMEROUS TO CNT /hpf (0-5)
--- NOTE | 2023-02-27 08:40 | ECG_ITS ---
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 Measurements Intervals [place] Rate: 74 P: 49 NE: 170 QRS: -38 QRSD: 140 T: 61 QT: 467 QTc: 520 Interpretive Statements ELECTRONIC VENTRICULAR PACEMAKER Compared to ECG 02/27/2023 06:38:06 No significant changes Electronically Signed On 02-27-2023 16:36:07 CDT by Pola Ferrera M.D. [id number]
[2023-02-27] MEDS: lidocaine 2% viscous 15 ML, aluminum-mag hydrox-simethicon 30 ML, sucralfate oral liq 1 GM PO (08:56)
[2023-02-27] MEDS: ropinirole 1 mg Tablet 2 MG PO (08:57)
[2023-02-27 09:03] LABS: Troponin 5 2HR 11.25 ng/L (0-10)
[2023-02-27 09:06] LABS: Troponin 5 2HR Delta -0.75 ABS# (0-10)
== END 2023-02-27 10:15 | disposition home or self-care (01) ==
PROVIDERS: Emergency Provider Family Medicine; PCP Physician Assistant
DX: R10.13 Epigastric pain (principal); Z79.82 Long term (current) use of aspirin; F17.210 Nicotine dependence, cigarettes, uncomplicated; Z95.0 Presence of cardiac pacemaker; I13.0 Hypertensive heart and chronic kidney disease with heart failure and stage 1 through stage 4 chronic kidney disease, or unspecified chronic kidney disease; N18.9 Chronic kidney disease, unspecified; I50.22 Chronic systolic (congestive) heart failure; Z86.73 Personal history of transient ischemic attack (TIA), and cerebral infarction without residual deficits
CPT/HCPCS: 71045; 80053; 81001; 83690; 84484; 85025; 87086; 93005; 96372; 96374; 96376; 99285; J2270; J2550

== ENCOUNTER 2023-02-28 06:58 | Emergency (ER) | payer MEDICARE, MEDICAID, SELFPAY ==
[2023-02-28 07:09] VITALS: BP 112/72; PULSE 88; RESP 20; TEMP 37.2; O2SAT 98
--- NOTE | 2023-02-28 07:23 | W.ED.ABDPA2 ---
Documented by User: JOSE MARTIN Up 02/28/23 08:39 HPI - Abdominal Pain General: Chief Complaint: Abdominal Pain Stated Complaint: abd pain N/V hasnt ate in 2 days Time Seen by Provider: 02/28/23 07:00 Source: patient Mode of arrival: wheelchair Limitations: no limitations History of Present Illness: Patient is a 53-year-old female with a very extensive past medical history and who is well-known to our emergency department here for complaints of epigastric pain. She was seen here yesterday for identical complaints. She states symptoms have been present over the past 2.5 days. She states she is not able to eat or drink anything secondary to nausea and pain. She has tried Zofran at home without much success. Patient was discharged home yesterday with Protonix and Carafate. Patient is reporting normal bowel movements and has not noticed any dark or tarry stools. She has no complaints of urinary symptoms. No fevers. She has no chest pain, shortness of breath, difficulty breathing. Patient does have an extensive cardiac history. Patient has a history of chronic abdominal pains. Just in the last year she has had 9 CT scans of her abdomen and pelvis to mention several other CT scans of her chest for work-up of her cardiac issues. She's had a total of 62 different imaging modalities performed just over the past year. MD elicited complaint: abdominal pain Onset (ago): day(s) Pain Consistency: constant Location: Epigastric Severity: severe Pain scale (0-10): 10 Quality: stabbing and aching Radiation: none Migration to: no migration Exacerbating factors: eating and other (drinking, lying down) Relieving factors: nothing Associated Symptoms: Reports nausea; Denies bloating, chills, diarrhea, dysuria, fever(s), hematochezia, melena and syncope Related Data: Patient : No Review of Systems Const: Denies: fever(s), chills, body aches, fatigue or malaise Eyes: Denies: change in vision or blurry vision Card: Denies: chest pain, palpitations, irregular heart rhythm, lightheadedness, syncope or dyspnea on exertion Resp: Denies: dyspnea, productive cough or pain on inspiration GI: Reports: abdominal pain and nausea; Denies: diarrhea, bloating, pain on defecation, rectal pain, rectal swelling, hematochezia, melena or white/light colored stool : Denies: flank pain, difficulty voiding, dysuria, urinary frequency or urinary urgency Musc: Denies: neck pain, back pain, extremity pain, extremity swelling or joint pain Skin/Breast: Denies: rash Neuro: Denies: headache(s), numbness in extremities, weakness in extremities or sensory changes PFSH ED PFSH: Medical History Acute hypokalemia Acute on chronic systolic heart failure AICD discharge GERRI (acute kidney injury) Anemia Cardiogenic shock Chest pain Chest pain CHF (congestive heart failure) Chronic systolic (congestive) heart failure CKD (chronic kidney disease) Closed intertrochanteric fracture of left hip Defibrillator discharge Encounter for testing following appropriate discharge of implantable cardioverter-defibrillator (ICD) History of recurrent UTIs History of TIA (transient ischemic attack) HTN (hypertension) Hydronephrosis, left Hypertension Hypokalemia Hypokalemia ICD (implantable cardioverter-defibrillator) in place Idiopathic ventricular fibrillation Liver mass Macrocytic anemia Mass of right lobe of liver ~3.5 x 4 cm, indeterminant, hypodense, first noted 11/2021 Nicotine dependence, cigarettes, uncomplicated Non-ischemic cardiomyopathy Nonischemic cardiomyopathy Severe diffuse hypokinesia of the left ventricle with an ejection fraction of 15 to 20%. Right ventricular appears to be normal size and ejection fraction. Mild biatrial enlargement. Thickened mitral valve. Moderately severe mitral regurgitation. [id number] tricuspid valve regurgitation. Thickened aortic valve. Compared to the study from 10/31/2022, ejection fraction appears to be declining Obstructive pyelonephritis (~11/2021) Oliguria Renal atrophy, left Syncope Urolithiasis Multi stone former. Complicated by at least 1 episode of obstructive pyelonephritis. Multiple procedures required to treat Ventricular tachycardia Weakness Surgical History Nephrostomy status S/P ureteral stent placement (~11/2021) Status post cholecystectomy Status post placement of cardiac pacemaker Family History Father , AT AGE 77 CAD (coronary artery disease) Cancer lung cancer Mother , AT AGE 60 Cancer OVARIAN Denies family history of Clotting disorder Anesthesia complication Bleeding disorder Social History Smoking and tobacco status: current every day smoker cigarettes Packs smoked per day: 0.5 Years cigarettes smoked: 45 Second hand smoke exposure: Yes Alcohol intake: current Substance/Drug Use: never Lives independently: Yes Marital status: service: No Current occupational status: disabled Current gender identity: Female Physical Exam Const: COMMON NORMALS: patient oriented x3, no limitations and alert GENERAL APPEARANCE: cooperative, in distress (tearful/crying secondary to pain) and ill appearing (chronically ill appearing) HENMT: COMMON NORMALS: normocephalic and atraumatic HEAD & SCALP: normal to inspection, normocephalic and atraumatic Eye: COMMON NORMALS: no scleral icterus Neck/C-Spine: COMMON NORMALS: no lymphadenopathy Chest: COMMONS NORMALS: normal inspection of the chest and normal palpation of entire chest wall Resp: COMMON NORMALS: normal respiratory effort and clear to auscultation bilaterally AUSCULTATION: clear to auscultation bilaterally Cardio: COMMON NORMALS: regular rate and regular rhythm RATE: regular rate RHYTHM: regular rhythm GI: COMMON NORMALS: Normal to inspection, nondistended, normoactive bowel sounds present INSPECTION: Yes normal to inspection AUSCULTATION: Yes normoactive bowel sounds PALPATION: Yes Tenderness to palpation present (GI) (mainly to epigastric region), Yes Guarding due to palpation present (GI) (diffuse guarding) and No Rigid due to palpation : COMMON NORMALS: Yes no CVA tenderness BLADDER/KIDNEY EXAM: Yes no CVA tenderness Back/Pelvis: COMMON NORMALS: no CVA tenderness Extremity: COMMON NORMALS: normal to inspection, capillary refill normal, no clubbing, cyanosis or edema, no calf tenderness and no pedal edema GENERAL: Yes normal exam except as noted Neuro: GRETA COMA SCALE: document GCS findings Greta coma scale eye opening: Spontaneous [place] coma scale verbal response: Orientated [place] coma scale motor response: Obey commands Greta coma scale total score: 15 COMMON NORMALS: patient oriented x3, moves all extremities, no focal motor deficits and no sensory deficits noted SENSORIUM/ORIENTATION: Yes alert Course Vital Signs: Vital signs: Vital Signs Temperature 99.0 F 02/28/23 07:09 Pulse Rate 88 02/28/23 07:09 Respiratory Rate 18 02/28/23 07:51 Blood Pressure 112/72 02/28/23 07:09 Pulse Oximetry 99 02/28/23 07:51 Oxygen Delivery Me thod Room Air 02/28/23 07:09 MDM - Abdominal Pain Medical Decision Making Patient reports she feels better after IV fluids/morphine and IM Phenergan. Vital signs are stable. Blood work is nonactionable and no significant changes when compared to labs yesterday. As previously mentioned just in the last 12 months patient has had 9 CT scans of her abdomen and pelvis in addition to several other CT scans of her chest and head. I feel like we need to be judicious in the use of further imaging. I think based on her repeat examination we can forego CT imaging at this time. Looking at previous CT scans she does have a known liver mass that has never been followed up with MRI imaging or biopsy. Radiology reads have mentioned the possibility of malignancy several times. I discussed with her the need to get this further evaluated. She states she has an appointment with her PCP later today and will speak to them in regards to that. I have placed a referral to get her set up with GI/general surgery for evaluation of possible endoscopy for further evaluation of her epigastric pain. Recommend she continue the medications prescribed to her yesterday (Protonix/Carafate). We will give her a prescription for Phenergan as she states her Zofran at home is not helping. Return to ED precautions given. Lab Data 02/28/23 07:30 02/28/23 07:30 Labs/Radiology: Laboratory Results WBC 7.9 10^3/uL (4.0-10.0) 02/28/23 07:30 RBC 4.14 10^6/uL (4.1-5.3) 02/28/23 07:30 Hgb 12.9 g/dL (11.5-15.3) 02/28/23 07:30 Hct 40.5 % (37.0-47.0) 02/28/23 07:30 MCV 97.8 fl (81-99) 02/28/23 07:30 MCH 31.2 pg (28.0-34.0) 02/28/23 07:30 MCHC 31.9 g/dL (30.0-36.0) 02/28/23 07:30 RDW 15.8 % (12.1-15.1) H 02/28/23 07:30 Plt Count 217 10^3/cmm (130-400) 02/28/23 07:30 MPV 10.9 fL (7.4-10.4) H 02/28/23 07:30 Neut % (Auto) 69.6 % 02/28/23 07:30 Lymph % (Auto) 21.4 % 02/28/23 07:30 [place] % (Auto) 6.5 % 02/28/23 07:30 Eos % (Auto) 1.0 % 02/28/23 07:30 Baso % (Auto) 1.1 % 02/28/23 07:30 Neut # (Auto) 5.52 10^3/uL (1.8-7.7) 02/28/23 07:30 Lymph # (Auto) 1.7 10^3/uL (0.8-4.8) 02/28/23 07:30 [place] # (Auto) 0.5 10^3/uL (0.2-0.9) 02/28/23 07:30 Eos # (Auto) 0.1 10^3/uL (0.0-0.8) 02/28/23 07:30 Baso # (Auto) 0.1 10^3/uL (0.0-0.1) 02/28/23 07:30 Nucleated RBC % (auto) 0 % 02/28/23 07:30 Nucleated RBCs # 0.0 /100WBC 02/28/23 07:30 Sodium 135 mmol/L (136-145) L 02/28/23 07:30 Potassium 4.2 mmol/L (3.5-5.1) 02/28/23 07:30 Chloride 98 mmol/L (98-107) 02/28/23 07:30 Carbon Dioxide 22 mmol/L (22-29) 02/28/23 07:30 Anion Gap 19.2 (5-19) H 02/28/23 07:30 BUN 22 mg/dL (6-20) H 02/28/23 07:30 Creatinine 1.0 mg/dL (0.5-0.9) H 02/28/23 07:30 GFR Calculation 58.0 mL/min (90-130) L 02/28/23 07:30 Glucose 95 mg/dL (65-115) 02/28/23 07:30 Calculated Osmolality 283 mOsm/kg (285-295) L 02/28/23 07:30 Calcium 10.0 mg/dL (8.5-10.5) 02/28/23 07:30 Total Bilirubin 0.6 mg/dL (0.15-1.2) 02/28/23 07:30 AST 29 U/L (0-32) 02/28/23 07:30 ALT 18 U/L (0-33) 02/28/23 07:30 Alkaline Phosphatase 135 U/L (35-105) H 02/28/23 07:30 Total Protein 7.8 g/dL (6.6-8.7) 02/28/23 07:30 Albumin 4.4 g/dL (3.5-5.2) 02/28/23 07:30 Globulin 3.4 g/dL (1.3-4.6) 02/28/23 07:30 Lipase 43 U/L (13-60) 02/28/23 07:30 Discharge Plan Discharge Patient Disposition: Home Clinical Impression: Epigastric abdominal pain Condition: Stable Prescriptions: New promethazine 25 mg tablet 25 mg PO TID PRN (Reason: nausea and vomiting) Qty: 20 0RF No Action citalopram [Celexa] 40 mg tablet 40 mg PO QPM zolpidem 10 mg tablet 10 mg PO BEDTIME aspirin [Adult Low Dose Aspirin] 81 mg tablet,delayed release (DR/EC) 162 mg PO QAM Hold Instructions: Resume on 10/19/22. Until after percutaneous tube placed in the left kidney carvedilol 6.25 mg tablet 6.25 mg PO BID Qty: 180 2RF Hold Instructions: Resume on 01/12/23. Rx Instructions: must administer with a meal/food Vitamin B-12 50 mcg Tablet 50 mcg PO QAM montelukast 10 mg tablet 10 mg PO QAM furosemide [Lasix] 40 mg tablet 40 mg PO BID potassium chloride 10 mEq tablet extended release 20 meq PO BID Rx Instructions: Only take with Lasix spironolactone 25 mg tablet 25 mg PO QAM magnesium 200 mg tablet 200 mg PO QAM polyethylene glycol 3350 [Miralax] 17 gram/dose powder 17 g PO DAILY Entresto 97-103 mg Tablet 1 tab PO BID amiodarone 400 mg tablet 400 mg PO DAILY 30 Days Qty: 30 3RF Rx Instructions: START FROM 01/23 (not started as of 01/20/23 HAS TO FINISHED BID DOSE) ondansetron 4 mg tablet,disintegrating 4 mg PO Q6H PRN (Reason: nausea and vomiting) Qty: 14 0RF acetaminophen 500 mg Tablet 1,000 mg PO Q6H PRN (Reason: Pain) nitroglycerin [Nitrostat] 0.4 mg Tablet, Sublingual 0.4 mg SUBLINGUAL Q5M PRN (Reason: Chest Pain) Rx Instructions: do not exceed 3 doses per episode albuterol sulfate 90 mcg/actuation HFA aerosol inhaler 2 puff INHALATION QID PRN (Reason: Shortness Of Breath) midodrine 5 mg Tablet 5 mg PO BID PRN (Reason: Sbp less than 100) Qty: 20 0RF lisinopril 5 mg tablet 5 mg PO DAILY hydrocodone-acetaminophen 5-325 mg tablet 1 tab PO Q6H PRN (Reason: pain) Qty: 14 0RF ondansetron 4 mg tablet,disintegrating 4 mg PO Q6H PRN (Reason: nausea and vomiting) Qty: 14 0RF pantoprazole 40 mg tablet,delayed release (DR/EC) 40 mg PO BID 14 Days Qty: 28 0RF Carafate 1 gram tablet 1 g PO Q6H PRN (Reason: dyspepsia) 28 Days Qty: 112 0RF Discharge Orders: Discharge ED (Routine); Ordered 02/28/23 Ordered By: Lynne Luis Referrals: Mavis Peterson PA [Primary Care Provider] - Patient Instructions: Abdominal Pain (ED) Activity Restrictions/Additional Instructions: As we discussed I would like you to to continue your medications that were prescribed yesterday. Avoid spicy, salty, acidic foods. I have given you prescription for Phenergan to help with your nausea as you stated the Zofran does not seem to be working. You have indicated you have an appointment with your primary care provider later today. I want you to speak to them in regards to the liver mass that has been seen over the past year on CT imaging. This needs followed up with MRI and/or biopsy. I have placed a referral to get you set up with GI/general surgery for further evaluation of your epigastric pain and possible need for endoscopy. Coding Level of Care Code ED Shotblast Equipment Operator for Chg Fwd Documented by User: Abiodun Stone DO 02/28/23 09:02 HPI - Abdominal Pain General: Chief Complaint: Abdominal Pain Stated Complaint: abd pain N/V hasnt ate in 2 days Time Seen by Provider: 02/28/23 07:00 PFSH ED PFSH: Medical History Acute hypokalemia Acute on chronic systolic heart failure AICD discharge GERRI (acute kidney injury) Anemia Cardiogenic shock Chest pain Chest pain CHF (congestive heart failure) Chronic systolic (congestive) heart failure CKD (chronic kidney disease) Closed intertrochanteric fracture of left hip Defibrillator discharge Encounter for testing following appropriate discharge of implantable cardioverter-defibrillator (ICD) History of recurrent UTIs History of TIA (transient ischemic attack) HTN (hypertension) Hydronephrosis, left Hypertension Hypokalemia Hypokalemia ICD (implantable cardioverter-defibrillator) in place Idiopathic ventricular fibrillation Liver mass Macrocytic anemia Mass of right lobe of liver ~3.5 x 4 cm, indeterminant, hypodense, first noted 11/2021 Nicotine dependence, cigarettes, uncomplicated Non-ischemic cardiomyopathy Nonischemic cardiomyopathy Severe diffuse hypokinesia of the left ventricle with an ejection fraction of 15 to 20%. Right ventricular appears to be normal size and ejection fraction. Mild biatrial enlargement. Thickened mitral valve. Moderately severe mitral regurgitation. [id number] tricuspid valve regurgitation. Thickened aortic valve. Compared to the study from 10/31/2022, ejection fraction appears to be declining Obstructive pyelonephritis (~11/2021) Oliguria Renal atrophy, left Syncope Urolithiasis Multi stone former. Complicated by at least 1 episode of obstructive pyelonephritis. Multiple procedures required to treat Ventricular tachycardia Weakness Surgical History Nephrostomy status S/P ureteral stent placement (~11/2021) Status post cholecystectomy Status post placement of cardiac pacemaker Family History Father , AT AGE 77 CAD (coronary artery disease) Cancer lung cancer Mother , AT AGE 60 Cancer OVARIAN Denies family history of Clotting disorder Anesthesia complication Bleeding disorder Social History Smoking and tobacco status: current every day smoker cigarettes Packs smoked per day: 0.5 Years cigarettes smoked: 45 Second hand smoke exposure: Yes Alcohol intake: current Substance/Drug Use: never Lives independently: Yes Marital status: service: No Current occupational status: disabled Current gender identity: Female Physical Exam Neuro: GRETA COMA SCALE: document GCS findings Gre[place] coma scale total score: 15 Course Vital Signs: Vital signs: Vital Signs Temperature 99.0 F 02/28/23 07:09 Pulse Rate 88 02/28/23 07:09 Respiratory Rate 18 02/28/23 07:51 Blood Pressure 112/72 02/28/23 07:09 Pulse Oximetry 99 02/28/23 07:51 Oxygen Delivery Me thod Room Air 02/28/23 07:09 MDM - Abdominal Pain Medical Decision Making Patient reports she feels better after IV fluids/morphine and IM Phenergan. Vital signs are stable. Blood work is nonactionable and no significant changes when compared to labs yesterday. As previously mentioned just in the last 12 months patient has had 9 CT scans of her abdomen and pelvis in addition to several other CT scans of her chest and head. I feel like we need to be judicious in the use of further imaging. I think based on her repeat examination we can forego CT imaging at this time. Looking at previous CT scans she does have a known liver mass that has never been followed up with MRI imaging or biopsy. Radiology reads have mentioned the possibility of malignancy several times. I discussed with her the need to get this further evaluated. She states she has an appointment with her PCP later today and will speak to them in regards to that. I have placed a referral to get her set up with GI/general surgery for evaluation of possible endoscopy for further evaluation of her epigastric pain. Recommend she continue the medications prescribed to her yesterday (Protonix/Carafate). We will give her a prescription for Phenergan as she states her Zofran at home is not helping. Return to ED precautions given. Chart reviewed and patient discussed with midlevel. Agree with assessment and plan. Lab Data 02/28/23 07:30 02/28/23 07:30 Labs/Radiology: Laboratory Results WBC 7.9 10^3/uL (4.0-10.0) 02/28/23 07:30 RBC 4.14 10^6/uL (4.1-5.3) 02/28/23 07:30 Hgb 12.9 g/dL (11.5-15.3) 02/28/23 07:30 Hct 40.5 % (37.0-47.0) 02/28/23 07:30 MCV 97.8 fl (81-99) 02/28/23 07:30 MCH 31.2 pg (28.0-34.0) 02/28/23 07:30 MCHC 31.9 g/dL (30.0-36.0) 02/28/23 07:30 RDW 15.8 % (12.1-15.1) H 02/28/23 07:30 Plt Count 217 10^3/cmm (130-400) 02/28/23 07:30 MPV 10.9 fL (7.4-10.4) H 02/28/23 07:30 Neut % (Auto) 69.6 % 02/28/23 07:30 Lymph % (Auto) 21.4 % 02/28/23 07:30 [place] % (Auto) 6.5 % 02/28/23 07:30 Eos % (Auto) 1.0 % 02/28/23 07:30 Baso % (Auto) 1.1 % 02/28/23 07:30 Neut # (Auto) 5.52 10^3/uL (1.8-7.7) 02/28/23 07:30 Lymph # (Auto) 1.7 10^3/uL (0.8-4.8) 02/28/23 07:30 [place] # (Auto) 0.5 10^3/uL (0.2-0.9) 02/28/23 07:30 Eos # (Auto) 0.1 10^3/uL (0.0-0.8) 02/28/23 07:30 Baso # (Auto) 0.1 10^3/uL (0.0-0.1) 02/28/23 07:30 Nucleated RBC % (auto) 0 % 02/28/23 07:30 Nucleated RBCs # 0.0 /100WBC 02/28/23 07:30 Sodium 135 mmol/L (136-145) L 02/28/23 07:30 Potassium 4.2 mmol/L (3.5-5.1) 02/28/23 07:30 Chloride 98 mmol/L (98-107) 02/28/23 07:30 Carbon Dioxide 22 mmol/L (22-29) 02/28/23 07:30 Anion Gap 19.2 (5-19) H 02/28/23 07:30 BUN 22 mg/dL (6-20) H 02/28/23 07:30 Creatinine 1.0 mg/dL (0.5-0.9) H 02/28/23 07:30 GFR Calculation 58.0 mL/min (90-130) L 02/28/23 07:30 Glucose 95 mg/dL (65-115) 02/28/23 07:30 Calculated Osmolality 283 mOsm/kg (285-295) L 02/28/23 07:30 Calcium 10.0 mg/dL (8.5-10.5) 02/28/23 07:30 Total Bilirubin 0.6 mg/dL (0.15-1.2) 02/28/23 07:30 AST 29 U/L (0-32) 02/28/23 07:30 ALT 18 U/L (0-33) 02/28/23 07:30 Alkaline Phosphatase 135 U/L (35-105) H 02/28/23 07:30 Total Protein 7.8 g/dL (6.6-8.7) 02/28/23 07:30 Albumin 4.4 g/dL (3.5-5.2) 02/28/23 07:30 Globulin 3.4 g/dL (1.3-4.6) 02/28/23 07:30 Lipase 43 U/L (13-60) 02/28/23 07:30 Discharge Plan Discharge Patient Disposition: Home Clinical Impression: Epigastric abdominal pain Condition: Stable Prescriptions: New promethazine 25 mg tablet 25 mg PO TID PRN (Reason: nausea and vomiting) Qty: 20 0RF No Action citalopram [Celexa] 40 mg tablet 40 mg PO QPM zolpidem 10 mg tablet 10 mg PO BEDTIME aspirin [Adult Low Dose Aspirin] 81 mg tablet,delayed release (DR/EC) 162 mg PO QAM Hold Instructions: Resume on 10/19/22. Until after percutaneous tube placed in the left kidney carvedilol 6.25 mg tablet 6.25 mg PO BID Qty: 180 2RF Hold Instructions: Resume on 01/12/23. Rx Instructions: must administer with a meal/food Vitamin B-12 50 mcg Tablet 50 mcg PO QAM montelukast 10 mg tablet 10 mg PO QAM furosemide [Lasix] 40 mg tablet 40 mg PO BID potassium chloride 10 mEq tablet extended release 20 meq PO BID Rx Instructions: Only take with Lasix spironolactone 25 mg tablet 25 mg PO QAM magnesium 200 mg tablet 200 mg PO QAM polyethylene glycol 3350 [Miralax] 17 gram/dose powder 17 g PO DAILY Entresto 97-103 mg Tablet 1 tab PO BID amiodarone 400 mg tablet 400 mg PO DAILY 30 Days Qty: 30 3RF Rx Instructions: START FROM 01/23 (not started as of 01/20/23 HAS TO FINISHED BID DOSE) ondansetron 4 mg tablet,disintegrating 4 mg PO Q6H PRN (Reason: nausea and vomiting) Qty: 14 0RF acetaminophen 500 mg Tablet 1,000 mg PO Q6H PRN (Reason: Pain) nitroglycerin [Nitrostat] 0.4 mg Tablet, Sublingual 0.4 mg SUBLINGUAL Q5M PRN (Reason: Chest Pain) Rx Instructions: do not exceed 3 doses per episode albuterol sulfate 90 mcg/actuation HFA aerosol inhaler 2 puff INHALATION QID PRN (Reason: Shortness Of Breath) midodrine 5 mg Tablet 5 mg PO BID PRN (Reason: Sbp less than 100) Qty: 20 0RF lisinopril 5 mg tablet 5 mg PO DAILY hydrocodone-acetaminophen 5-325 mg tablet 1 tab PO Q6H PRN (Reason: pain) Qty: 14 0RF ondansetron 4 mg tablet,disintegrating 4 mg PO Q6H PRN (Reason: nausea and vomiting) Qty: 14 0RF pantoprazole 40 mg tablet,delayed release (DR/EC) 40 mg PO BID 14 Days Qty: 28 0RF Carafate 1 gram tablet 1 g PO Q6H PRN (Reason: dyspepsia) 28 Days Qty: 112 0RF Discharge Orders: Discharge ED (Routine); Ordered 02/28/23 Ordered By: Lynne Luis Referrals: Mavis Peterson PA [Primary Care Provider] - Patient Instructions: Abdominal Pain (ED) Activity Restrictions/Additional Instructions: As we discussed I would like you to to continue your medications that were prescribed yesterday. Avoid spicy, salty, acidic foods. I have given you prescription for Phenergan to help with your nausea as you stated the Zofran does not seem to be working. You have indicated you have an appointment with your primary care provider later today. I want you to speak to them in regards to the liver mass that has been seen over the past year on CT imaging. This needs followed up with MRI and/or biopsy. I have placed a referral to get you set up with GI/general surgery for further evaluation of your epigastric pain and possible need for endoscopy. Coding Level of Care Code ED Shotblast Equipment Operator for Wesley Herrera
[2023-02-28 07:39] LABS: Basophils # 0.1 10^3/uL (0.0-0.1); Basophils % 1.1 %; Eosinophils # 0.1 10^3/uL (0.0-0.8); Hematocrit 40.5 % (37.0-47.0); Hemoglobin 12.9 g/dL (11.5-15.3); Lymphocytes # 1.7 10^3/uL (0.8-4.8); Lymphocytes % 21.4 %; Mean Corpuscular HGB Conc 31.9 g/dL (30.0-36.0); Mean Corpuscular Hemoglobin 31.2 pg (28.0-34.0); Mean Corpuscular Volume 97.8 fl (81-99); Mean Platelet Volume 10.9 fL (7.4-10.4); Monocytes # 0.5 10^3/uL (0.2-0.9); Monocytes % 6.5 %; Neutrophils # 5.52 10^3/uL (1.8-7.7); Neutrophils % 69.6 %; Nucleated Red Blood Cells % 0 %; Platelet Count 217 10^3/cmm (130-400); Red Blood Count 4.14 10^6/uL (4.1-5.3); Red Cell Distribution Width 15.8 % (12.1-15.1); White Blood Count 7.9 10^3/uL (4.0-10.0)
[2023-02-28] MEDS: lidocaine 2% viscous 15 ML, aluminum-mag hydrox-simethicon 30 ML, sucralfate oral liq 1 GM PO (07:47)
[2023-02-28] MEDS: pantoprazole 40 mg SDV IVP (07:47)
[2023-02-28 07:51] VITALS: RESP 18; O2SAT 99
[2023-02-28] MEDS: morphine 4 mg/mL SDV 1 mL IVP (07:51)
[2023-02-28] MEDS: promethazine 25 mg/mL SDV 1 mL IM (07:57)
[2023-02-28 07:58] LABS: Alanine Aminotransferase 18 U/L (0-33); Albumin Level 4.4 g/dL (3.5-5.2); Alkaline Phosphatase 135 U/L (35-105); Anion Gap 19.2 (5-19); Aspartate Amino Transferase 29 U/L (0-32); Blood Urea Nitrogen 22 mg/dL (6-20); Carbon Dioxide 22 mmol/L (22-29); Chloride 98 mmol/L (98-107); Globulin 3.4 g/dL (1.3-4.6); Glucose 95 mg/dL (65-115); Lipase 43 U/L (13-60); Osmolality Calculated 283 mOsm/kg (285-295); Potassium 4.2 mmol/L (3.5-5.1); Sodium 135 mmol/L (136-145); Total Bilirubin 0.6 mg/dL (0.15-1.2); Total Protein 7.8 g/dL (6.6-8.7)
[2023-02-28] MEDS: sodium chloride 0.9% 1,000 ML 999 ML IV (08:14)
--- NOTE | 2023-02-28 09:42 | ECG_ITS ---
[facility] Test Date: 2023-02-28 Pat Name: Elena Pulliam Department: Room: Gender: Female Compliance Project Manager: : 1970 Requested By: Lynne Luis Order Number: [id number] Arlette MD: Michael Hill M.D. Measurements Intervals [place] Rate: 84 P: 51 MN: 151 QRS: -40 QRSD: 145 T: 57 QT: 450 QTc: 534 Interpretive Statements ELECTRONIC VENTRICULAR PACEMAKER ABNORMAL RHYTHM ECG INTERPRETATION BASED ON A DEFAULT AGE OF 40 YEARS Compared to ECG 02/27/2023 09:09:55 No significant changes Electronically Signed On 03-01-2023 22:28:09 CDT by Michael Hill M.D. [id number] f
--- NOTE | 2023-02-28 14:52 | PC.NURSE ---
Addendum entered by Lluvia Baer RN 03/01/23 11:16: Spoke to patient she would like to stay local and see Dr. Elena. TCM sent referral. They will call patient with an appt. Original Note: Patient was seen in the Ed on 02/28/23 and referred for epigastric pain. Patient has to be referred to [facility] or [facility] due to Dr. Hines not being in network with patients insurance. Tcm attempted to call patient with no answer.
== END 2023-02-28 08:48 | disposition home or self-care (01) ==
PROVIDERS: Emergency Provider Physician Assistant; PCP Physician Assistant
DX: R10.13 Epigastric pain (principal); Z79.82 Long term (current) use of aspirin; F17.210 Nicotine dependence, cigarettes, uncomplicated; Z95.0 Presence of cardiac pacemaker; I13.0 Hypertensive heart and chronic kidney disease with heart failure and stage 1 through stage 4 chronic kidney disease, or unspecified chronic kidney disease; N18.9 Chronic kidney disease, unspecified; I50.22 Chronic systolic (congestive) heart failure; Z86.73 Personal history of transient ischemic attack (TIA), and cerebral infarction without residual deficits
CPT/HCPCS: 80053; 83690; 85025; 93005; 96361; 96372; 96374; 96375; 99284; C9113; J2270; J2550; J7030

== ENCOUNTER 2023-03-01 13:01 | Emergency (ER) | payer MEDICARE, MEDICAID, SELFPAY ==
[2023-03-01] VITALS (14 sets, daily range): BP systolic 95–129; BP diastolic 49–84; PULSE 67–84; RESP 15–20; TEMP 36.9; O2SAT 91–100
--- NOTE | 2023-03-01 13:03 | W.ED.CHESTPA ---
HPI - Chest Pain General: Chief Complaint: Chest Pain Stated Complaint: Chest pain Time Seen by Provider: 03/01/23 13:02 History of Present Illness: Ms. Pulliam is a 53-year-old lady with complex past medical history presenting to the emergency department due to chest pain. She reports onset of symptoms approximately 1030 today. Substernal epigastric pain with radiation to left chest. Over the past few days she has had difficulty with nausea, vomiting, epigastric pain and is unsure if this is related or not. Overall course of symptoms has persisted. Moderate to severe in intensity. No other specific changes in health, exacerbating, or alleviating factors identified. Onset (ago): day(s) Timing of current episode: constant Prior episodes: Yes Pain location: substernal Pain radiation: abdomen Severity: severe Quality: tightness and aching Associated symptoms: Reports dyspnea, nausea and vomiting Review of Systems General: Reports: 10 or more systems reviewed and unremarkable except in HPI and below Resp: Reports: dyspnea GI: Reports: nausea and vomiting PFS ED PFSH: Medical History Acute hypokalemia Acute on chronic systolic heart failure AICD discharge GERRI (acute kidney injury) Anemia Cardiogenic shock Chest pain Chest pain CHF (congestive heart failure) Chronic systolic (congestive) heart failure CKD (chronic kidney disease) Closed intertrochanteric fracture of left hip Defibrillator discharge Encounter for testing following appropriate discharge of implantable cardioverter-defibrillator (ICD) History of recurrent UTIs History of TIA (transient ischemic attack) HTN (hypertension) Hydronephrosis, left Hypertension Hypokalemia Hypokalemia ICD (implantable cardioverter-defibrillator) in place Idiopathic ventricular fibrillation Liver mass Macrocytic anemia Mass of right lobe of liver ~3.5 x 4 cm, indeterminant, hypodense, first noted 11/2021 Nicotine dependence, cigarettes, uncomplicated Non-ischemic cardiomyopathy Nonischemic cardiomyopathy Severe diffuse hypokinesia of the left ventricle with an ejection fraction of 15 to 20%. Right ventricular appears to be normal size and ejection fraction. Mild biatrial enlargement. Thickened mitral valve. Moderately severe mitral regurgitation. [id number] tricuspid valve regurgitation. Thickened aortic valve. Compared to the study from 10/31/2022, ejection fraction appears to be declining Obstructive pyelonephritis (~11/2021) Oliguria Renal atrophy, left Syncope Urolithiasis Multi stone former. Complicated by at least 1 episode of obstructive pyelonephritis. Multiple procedures required to treat Ventricular tachycardia Weakness Surgical History Nephrostomy status S/P ureteral stent placement (~11/2021) Status post cholecystectomy Status post placement of cardiac pacemaker Family History Father , AT AGE 77 CAD (coronary artery disease) Cancer lung cancer Mother , AT AGE 60 Cancer OVARIAN Denies family history of Clotting disorder Anesthesia complication Bleeding disorder Social History Smoking and tobacco status: current every day smoker cigarettes Packs smoked per day: 0.5 Years cigarettes smoked: 45 Second hand smoke exposure: Yes Alcohol intake: current Substance/Drug Use: never Lives independently: Yes Marital status: service: No Current occupational status: disabled Current gender identity: Female Physical Exam Const: COMMON NORMALS: alert GENERAL APPEARANCE: cooperative and well developed HENMT: COMMON NORMALS: normocephalic and atraumatic HEAD & SCALP: normocephalic and atraumatic Eye: COMMON NORMALS: conjunctivae normal CONJUNCTIVA: Yes conjunctivae normal SCLERA: sclerae normal Neck/C-Spine: COMMON NORMALS: supple GENERAL: Yes trachea midline Resp: COMMON NORMALS: clear to auscultation bilaterally EFFORT & INSPECTION: Yes able to speak in complete sentences AUSCULTATION: clear to auscultation bilaterally Cardio: COMMON NORMALS: regular rate and regular rhythm RATE: regular rate RHYTHM: regular rhythm GI: COMMON NORMALS: Soft to palpation PALPATION: Yes Soft to palpation, Yes Tenderness to palpation present (GI), No Guarding due to palpation present (GI) and No Rigid due to palpation Extremity: GENERAL: Yes normal exam except as noted and No edema Neuro: COMMON NORMALS: moves all extremities SENSORIUM/ORIENTATION: Yes alert and No Orientation impaired Psych: COMMON NORMALS: mental status grossly normal and Normal thought process present THOUGHT PROCESS: Normal thought process present Course Vital Signs: Vital signs: Vital Signs Temperature 98.4 F 03/01/23 13:07 Pulse Rate 67 03/01/23 22:30 Respiratory Rate 17 03/01/23 22:30 Blood Pressure 105/63 03/01/23 22:30 Pulse Oximetry 94 03/01/23 22:30 Oxygen Delivery Me thod Room Air 03/01/23 17:00 MDM - Chest Pain Medical Decision Making 53-year-old lady with severe complex medical history presented to the emergency department for evaluation of continued nausea vomiting chest and abdominal pain. Most recently symptoms have been moderate to severe over the past 3 days with recurrent presentations to the emergency department. She describes not being able to tolerate oral intake without vomiting and feeling dehydrated. She is nontoxic on exam. Abdominal tenderness without evidence of acute surgical abdomen. She is chronically ill in appearance. Hematologic panel is essentially unremarkable. Metabolic panel with dehydration and evidence of mild metabolic stress. Minimal transaminitis again noted. Negative range 2-hour delta troponin. BNP is improved from prior. D-dimer is elevated. ED demonstrates many chronic findings including new mass which appears to cause partial bowel obstruction which likely explains symptoms. Discussed with general surgery at our facility however given severe complexity including history of ventricular tachycardia/cardiogenic shock with nonischemic cardiomyopathy patient exceeds our surgical management capabilities and therefore requires transfer. Patient excepted by surgery has a transfer to [facility]. NG tube ordered. Medical Records I reviewed the patient's medical records. Lab Data I reviewed the patient's lab results. 03/01/23 13:40 03/01/23 13:40 Radiology Impressions Chest X-Ray 03/01/23 13:28 IMPRESSION: 1. No acute findings. 2. Cardiac device left chest in good position Chest/Abdomen/Pelvis CT 03/01/23 14:14 IMPRESSION: 1. Negative for pulmonary embolism. 2. Cardiomegaly, 3. Persistent enlargement left ventricle and left atrium 4. Stable small pericardial effusion. 5. Cardiac device left anterior chest IMPRESSION: 1. Mass lesion in the terminal ileum and cecum endoscopic evaluation recommended 2. Partial bowel obstruction in the region of the cecum associated with 1. 3. Right hepatic lobe mass lesion likely hematogenous metastatic lesion . 4. Circumscribed mesenteric soft tissue mass likely tumor 5. Small left kidney status post nephrostomy. 6. Benign cyst upper pole right kidney 7. cholecystectomy 8. Metallic orthopedic hardware left hip. 9. Hepatomegaly Laboratory Results WBC 9.0 10^3/uL (4.0-10.0) 03/01/23 13:40 RBC 4.12 10^6/uL (4.1-5.3) 03/01/23 13:40 Hgb 13.1 g/dL (11.5-15.3) 03/01/23 13:40 Hct 39.7 % (37.0-47.0) 03/01/23 13:40 MCV 96.4 fl (81-99) 03/01/23 13:40 MCH 31.8 pg (28.0-34.0) 03/01/23 13:40 MCHC 33.0 g/dL (30.0-36.0) 03/01/23 13:40 RDW 15.9 % (12.1-15.1) H 03/01/23 13:40 Plt Count 213 10^3/cmm (130-400) 03/01/23 13:40 MPV 11.2 fL (7.4-10.4) H 03/01/23 13:40 Neut % (Auto) 70.5 % 03/01/23 13:40 Lymph % (Auto) 20.5 % 03/01/23 13:40 [place] % (Auto) 7.0 % 03/01/23 13:40 Eos % (Auto) 0.6 % 03/01/23 13:40 Baso % (Auto) 0.8 % 03/01/23 13:40 Neut # (Auto) 6.33 10^3/uL (1.8-7.7) 03/01/23 13:40 Lymph # (Auto) 1.8 10^3/uL (0.8-4.8) 03/01/23 13:40 [place] # (Auto) 0.6 10^3/uL (0.2-0.9) 03/01/23 13:40 Eos # (Auto) 0.1 10^3/uL (0.0-0.8) 03/01/23 13:40 Baso # (Auto) 0.1 10^3/uL (0.0-0.1) 03/01/23 13:40 Nucleated RBC % (auto) 0 % 03/01/23 13:40 Nucleated RBCs # 0.0 /100WBC 03/01/23 13:40 D-Dimer 0.69 ug/mIFEU (0-0.59) H 03/01/23 13:40 Sodium 135 mmol/L (136-145) L 03/01/23 13:40 Potassium 3.9 mmol/L (3.5-5.1) 03/01/23 13:40 Chloride 96 mmol/L (98-107) L 03/01/23 13:40 Carbon Dioxide 20 mmol/L (22-29) L 03/01/23 13:40 Anion Gap 22.9 (5-19) H 03/01/23 13:40 BUN 22 mg/dL (6-20) H 03/01/23 13:40 Creatinine 1.1 mg/dL (0.5-0.9) H 03/01/23 13:40 GFR Calculation 52.0 mL/min (90-130) L 03/01/23 13:40 Glucose 91 mg/dL (65-115) 03/01/23 13:40 Calculated Osmolality 283 mOsm/kg (285-295) L 03/01/23 13:40 Calcium 9.4 mg/dL (8.5-10.5) 03/01/23 13:40 Total Bilirubin 0.7 mg/dL (0.15-1.2) 03/01/23 13:40 AST 34 U/L (0-32) H 03/01/23 13:40 ALT 23 U/L (0-33) 03/01/23 13:40 Alkaline Phosphatase 145 U/L (35-105) H 03/01/23 13:40 Troponin T Baseline 14 ng/L (0-10) H 03/01/23 13:40 Troponin T 120 Minute 15.53 ng/L (0-10) H 03/01/23 15:56 Delta Troponin T 1.53 ABS# (0-10) 03/01/23 15:56 NT-Pro-B Natriuret Pep 3396 pg/mL (0-125) H 03/01/23 13:40 Total Protein 7.4 g/dL (6.6-8.7) 03/01/23 13:40 Albumin 4.7 g/dL (3.5-5.2) 03/01/23 13:40 Globulin 2.7 g/dL (1.3-4.6) 03/01/23 13:40 Lipase 42 U/L (13-60) 03/01/23 13:40 Discharge Plan Discharge Patient Disposition: Xfer Short-Term Hosp Clinical Impression: Bowel obstruction, Intestinal mass Condition: Stable Referrals: Mavis Peterson PA [Primary Care Provider] - Coding Level of Care Code ED Layout Technician for Wesley Herrera
--- NOTE | 2023-03-01 13:28 | XRR_ITS ---
PROCEDURE INFORMATION: Exam: XR Chest Exam date and time: 03/01/2023 1:46 PM Age: 53 years old Clinical indication: Pain; Angina pectoris; Prior surgery; Surgery date: 6+ months; Surgery type: Pacer; Additional info: Cp TECHNIQUE: Imaging protocol: Radiologic exam of the chest. Views: 1 view. COMPARISON: CR XR chest 1V portable [id number] 02/27/2023 7:14 AM FINDINGS: Tubes, catheters and devices: Cardiac device left anterior chest in good position Lungs: Unremarkable. No consolidation. Pleural spaces: Unremarkable. No pleural effusion. No pneumothorax. Heart/Mediastinum: Unremarkable. No cardiomegaly. Bones/joints: Unremarkable. XR/XR chest 1V portable [id number] IMPRESSION: 1. No acute findings. 2. Cardiac device left chest in good position
--- NOTE | 2023-03-01 13:28 | ECG_ITS ---
[facility] Test Date: 2023-03-01 Pat Name: Elena Pulliam Department: Room: Gender: Female Water Quality Tester: : 1970 Requested By: Schuyler Borden Order Number: [id number] Arlette MD: Michael Hill M.D. Measurements Intervals [place] Rate: 84 P: 56 [place]: 150 QRS: -40 QRSD: 152 T: 64 QT: 444 QTc: 525 Interpretive Statements ELECTRONIC VENTRICULAR PACEMAKER ABNORMAL RHYTHM ECG Compared to ECG 02/28/2023 07:16:48 No significant changes Electronically Signed On 03-01-2023 22:23:27 CDT by Michael Hill M.D. [email or web address] medical centerTriState Capital/store/[id number]
[2023-03-01] MEDS: morphine 4 mg/mL SDV 1 mL IVP ×4 (13:49→21:48)
[2023-03-01] MEDS: ondansetron 2 mg/ML SDV 2 mL 4 MG IVP ×2 (13:49→21:48)
[2023-03-01 13:56] LABS: Basophils # 0.1 10^3/uL (0.0-0.1); Basophils % 0.8 %; Eosinophils # 0.1 10^3/uL (0.0-0.8); Eosinophils % 0.6 %; Hematocrit 39.7 % (37.0-47.0); Hemoglobin 13.1 g/dL (11.5-15.3); Lymphocytes # 1.8 10^3/uL (0.8-4.8); Lymphocytes % 20.5 %; Mean Corpuscular Hemoglobin 31.8 pg (28.0-34.0); Mean Corpuscular Volume 96.4 fl (81-99); Mean Platelet Volume 11.2 fL (7.4-10.4); Monocytes # 0.6 10^3/uL (0.2-0.9); Neutrophils # 6.33 10^3/uL (1.8-7.7); Neutrophils % 70.5 %; Nucleated Red Blood Cells % 0 %; Platelet Count 213 10^3/cmm (130-400); Red Blood Count 4.12 10^6/uL (4.1-5.3); Red Cell Distribution Width 15.9 % (12.1-15.1)
[2023-03-01] MEDS: lidocaine 2% viscous 15 ML, aluminum-mag hydrox-simethicon 30 ML, sucralfate oral liq 1 GM PO (13:56)
[2023-03-01] MEDS: pantoprazole 40 mg SDV IVP (13:56)
[2023-03-01 14:11] LABS: D Dimer 0.69 ug/mIFEU (0-0.59)
--- NOTE | 2023-03-01 14:14 | CTR_ITS ---
PROCEDURE INFORMATION: Exam: CTA Chest With Contrast Exam date and time: 03/01/2023 2:52 PM Age: 53 years old Clinical indication: Abdominal pain; Epigastric; Chest pressure; Prior surgery; Surgery date: 6+ months; Surgery type: Pacemaker, lt hip; Additional info: Chest and epigastric pain, elevated d-dimer TECHNIQUE: Imaging protocol: Computed tomographic angiography of the chest with contrast. Exam focused on the arteries. 3D rendering (Not supervised by radiologist): MIP and/or 3D reconstructed images were created by the technologist. Radiation optimization: All CT scans at this facility use at least one of these dose optimization techniques: automated exposure control; mA and/or kV adjustment per patient size (includes targeted exams where dose is matched to clinical indication); or iterative reconstruction. Contrast material: OMNI 350; Contrast volume: 100 ml; Contrast route: INTRAVENOUS (IV); REPORTING DATA: Count of CT and Cardiac NM exams in prior 12 months: This patient has received 15 known CTs and 0 known cardiac nuclear medicine studies in the 12 months prior to the current study. COMPARISON: CT angio chest PE protcl [id number] 01/02/2023 9:13 PM RADIATION DOSE METRICS: Total DLP (mGy-cm): 878 FINDINGS: Pulmonary arteries: Normal. No pulmonary emboli. Aorta: Unremarkable. No aortic aneurysm. No aortic dissection. Lungs: Unremarkable. No consolidation. No masses. Pleural spaces: Unremarkable. No pneumothorax. No pleural effusion. Heart: There is a small pericardial effusion similar to prior . There is moderate cardiomegaly. There is persistent enlargement of the left ventricle and left atrium similar to prior examination. There is associated bowing of the intraventricular septum. Decreased volume is seen in the right ventricle. Lymph nodes: Unremarkable. No enlarged lymph nodes. Bones/joints: Unremarkable. No acute fracture. Soft tissues: There is a cardiac device in the left anterior chest. PROCEDURE INFORMATION: Exam: CT Abdomen And Pelvis With Contrast Exam date and time: 03/01/2023 2:52 PM Age: 53 years old Clinical indication: Abdominal pain; Epigastric; Chest pressure; Prior surgery; Surgery date: 6+ months; Surgery type: Pacemaker, lt hip; Additional info: Chest and epigastric pain, elevated d-dimer TECHNIQUE: Imaging protocol: Computed tomography of the abdomen and pelvis with contrast. Radiation optimization: All CT scans at this facility use at least one of these dose optimization techniques: automated exposure control; mA and/or kV adjustment per patient size (includes targeted exams where dose is matched to clinical indication); or iterative reconstruction. Contrast material: OMNI 350; Contrast volume: 100 ml; Contrast route: INTRAVENOUS (IV); REPORTING DATA: Count of CT and Cardiac NM exams in prior 12 months: This patient has received 15 known CTs and 0 known cardiac nuclear medicine studies in the 12 months prior to the current study. COMPARISON: CT abdomen pelvis wo con [id number] 02/13/2023 6:49 AM RADIATION DOSE METRICS: Total DLP (mGy-cm): 878 FINDINGS: Liver: Hepatomegaly is present the liver span is 17 cm. The posterior aspect of the right hepatic lobe shows a circumscribed mass with measurements of 34 mm x 38 mm x 47 mm. This finding was not visible on prior examination and likely reflects a hematogenous metastatic malignant tumor.. Gallbladder and bile ducts: Cholecystectomy a a No ductal dilation. Pancreas: Normal. No ductal dilation. Spleen: Normal. No splenomegaly. Adrenal glands: Normal. No mass. Kidneys and ureters: Renal function is seen bilaterally. The left kidney is small measuring 7 cm. There is a of of of nephrostomy tube catheter in place extending through the abdominal wall. No hydronephrosis. The right kidney measures 10 cm. There is a 13 mm cyst in the upper pole of the right kidney Stomach and bowel: There is persistent narrowing and apparent partial obstruction of the cecum and proximal ascending colon. The normal ileocecal valve is not well visualized. The terminal ileum appears to be involved. The potential for a mass lesion in this location should be ruled out. Endoscopic evaluation is recommended . Circumscribed mass lesion is seen anteromedial to the right adrenal gland. This finding measures 34 mm x 31 mm x 27 mm. This likely reflects a primary or secondary tumor. The point of origin is of this lesion is unclear. Appendix: No evidence of appendicitis. The appendix is visualized and appears unremarkable Intraperitoneal space: Unremarkable. No free air. No significant fluid collection. Vasculature: Unremarkable. No abdominal aortic aneurysm. Lymph nodes: Unremarkable. No enlarged lymph nodes. Urinary bladder: Unremarkable as visualized. Reproductive: Unremarkable as visualized. Bones/joints: Metallic intramedullary edward and dynamic screw is present in the left hip. No acute fracture. The examination is negative for blastic or lytic bone lesions. Soft tissues: Unremarkable. CT/CT angio chest w abd pel w con IMPRESSION: 1. Negative for pulmonary embolism. 2. Cardiomegaly, 3. Persistent enlargement left ventricle and left atrium 4. Stable small pericardial effusion. 5. Cardiac device left anterior chest IMPRESSION: 1. Mass lesion in the terminal ileum and cecum endoscopic evaluation recommended 2. Partial bowel obstruction in the region of the cecum associated with 1. 3. Right hepatic lobe mass lesion likely hematogenous metastatic lesion . 4. Circumscribed mesenteric soft tissue mass likely tumor 5. Small left kidney status post nephrostomy. 6. Benign cyst upper pole right kidney 7. cholecystectomy 8. Metallic orthopedic hardware left hip. 9. Hepatomegaly
[2023-03-01 14:17] LABS: Troponin(5th) Baseline 14 ng/L (0-10)
[2023-03-01 14:27] LABS: Alanine Aminotransferase 23 U/L (0-33); Albumin Level 4.7 g/dL (3.5-5.2); Alkaline Phosphatase 145 U/L (35-105); Blood Urea Nitrogen 22 mg/dL (6-20); Calcium 9.4 mg/dL (8.5-10.5); Carbon Dioxide 20 mmol/L (22-29); Chloride 96 mmol/L (98-107); Globulin 2.7 g/dL (1.3-4.6); Glucose 91 mg/dL (65-115); Lipase 42 U/L (13-60); NT Pro B Type Natriuretic Pept 3396 pg/mL (0-125); Osmolality Calculated 283 mOsm/kg (285-295); Sodium 135 mmol/L (136-145); Total Bilirubin 0.7 mg/dL (0.15-1.2); Total Protein 7.4 g/dL (6.6-8.7)
[2023-03-01 14:31] LABS: Anion Gap 22.9 (5-19); Aspartate Amino Transferase 34 U/L (0-32); Potassium 3.9 mmol/L (3.5-5.1)
[2023-03-01] MEDS: iohexol 350 mg/mL 500 mL Btl (per mL) IV (15:12)
--- NOTE | 2023-03-01 15:32 | ECG_ITS ---
[facility] Test Date: 2023-03-01 Pat Name: Elena Pulliam Department: Room: Gender: Female Sulfonator Operator: : 1970 Requested By: Schuyler Bordne Order Number: [id number] Arlette MD: Michael Hill M.D. Measurements Intervals [place] Rate: 70 P: 56 [place]: 161 QRS: -57 QRSD: 142 T: 56 QT: 451 QTc: 489 Interpretive Statements ELECTRONIC VENTRICULAR PACEMAKER ABNORMAL RHYTHM ECG Compared to ECG 03/01/2023 13:50:25 No significant changes Electronically Signed On 03-01-2023 22:44:38 CDT by Michael Hill M.D. [id number]
[2023-03-01 16:28] LABS: Troponin 5 2HR 15.53 ng/L (0-10)
[2023-03-01 16:31] LABS: Troponin 5 2HR Delta 1.53 ABS# (0-10)
--- NOTE | 2023-03-01 19:28 | ECG_ITS ---
[facility] Test Date: 2023-03-01 Pat Name: Elena Pulliam Department: Room: Gender: Female Director Fraud: : 1970 Requested By: Shcuyler Borden Order Number: [id number] Arlette MD: Michael Hill M.D. Measurements Intervals [place] Rate: 68 P: 63 [place]: 156 QRS: -46 QRSD: 150 T: 48 QT: 463 QTc: 495 Interpretive Statements ELECTRONIC VENTRICULAR PACEMAKER ABNORMAL RHYTHM ECG Compared to ECG 03/01/2023 15:32:47 No significant changes Electronically Signed On 03-01-2023 22:56:02 CDT by Michael Hill M.D. [email or web address] Story [id number]
== END 2023-03-01 22:43 | disposition short-term general hospital (02) ==
PROVIDERS: Emergency Provider Emergency Medicine; PCP Physician Assistant
DX: K56.609 Unspecified intestinal obstruction, unspecified as to partial versus complete obstruction (principal); F17.210 Nicotine dependence, cigarettes, uncomplicated; Z95.0 Presence of cardiac pacemaker; I13.0 Hypertensive heart and chronic kidney disease with heart failure and stage 1 through stage 4 chronic kidney disease, or unspecified chronic kidney disease; N18.9 Chronic kidney disease, unspecified; I50.9 Heart failure, unspecified; Z86.73 Personal history of transient ischemic attack (TIA), and cerebral infarction without residual deficits
CPT/HCPCS: 36415; 71045; 71275; 74177; 80053; 83690; 83880; 84484; 85025; 85378; 93005; 96374; 96376; 99285; C9113; J2270; J2405; Q9967

== ENCOUNTER 2023-03-21 15:06 | Oncology outpatient (recurring) (ONCR) | payer MEDICARE, MEDICAID, SELFPAY | END 2023-04-07 23:59 | disposition home or self-care (01) | PROVIDERS: PCP Physician Assistant; Visit Provider Internal Medicine Hematology & Oncology | DX: C22.9 Malignant neoplasm of liver, not specified as primary or secondary; I13.0 Hypertensive heart and chronic kidney disease with heart failure and stage 1 through stage 4 chronic kidney disease, or unspecified chronic kidney disease; N18.9 Chronic kidney disease, unspecified; I50.9 Heart failure, unspecified | CPT/HCPCS: 99204 ==

== ENCOUNTER 2023-04-06 03:58 | Emergency (ER) | payer MEDICARE, MEDICAID, SELFPAY ==
[2023-04-06 03:59] VITALS: BP 120/86; PULSE 84; RESP 16; TEMP 36.9; O2SAT 98; BMI 21.9
--- NOTE | 2023-04-06 04:01 | ED_ITS ---
HPI - Abdominal Pain General: Chief Complaint: Abdominal Pain Stated Complaint: ABD PAIN Time Seen by Provider: 04/06/23 04:00 History of Present Illness: Ms. Pulliam is a 53-year-old lady presenting to the emergency department for evaluation of abdominal pain. She has a previous diagnosis of liver cancer and apparently has run out of her pain medication. Endorses worsening pain thr oughout the day. Does note constipation for about 6 days however still passing gas. Has dark urine. No other specific changes in health, exacerbating, or alleviating factors identified. Onset (ago): hour(s) Location: RUQ Quality: aching Exacerbating factors: movement Associated Symptoms: Reports constipation, nausea and other Review of Systems General: Reports: 10 or more systems reviewed and unremarkable except in HPI and below GI: Reports: nausea, constipation and other PFSH ED PFSH: Medical History Acute hypokalemia Acute on chronic systolic heart failure Adenocarcinoma determined by biopsy of liver AICD discharge GERRI (acute kidney injury) Anemia Cardiogenic shock Chest pain Chest pain CHF (congestive heart failure) Chronic systolic (congestive) heart failure CKD (chronic kidney disease) Closed intertrochanteric fracture of left hip Defibrillator discharge Encounter for testing following appropriate discharge of implantable cardioverter-defibrillator (ICD) History of recurrent UTIs History of TIA (transient ischemic attack) HTN (hypertension) Hydronephrosis, left Hypertension Hypokalemia Hypokalemia ICD (implantable cardioverter-defibrillator) in place Idiopathic ventricular fibrillation Liver mass Macrocytic anemia Mass of right lobe of liver ~3.5 x 4 cm, indeterminant, hypodense, first noted 11/2021 Nicotine dependence, cigarettes, uncomplicated Non-ischemic cardiomyopathy Nonischemic cardiomyopathy Severe diffuse hypokinesia of the left ventricle with an ejection fraction of 15 to 20%. Right ventricular appears to be normal size and ejection fraction. Mild biatrial enlargement. Thickened mitral valve. Moderately severe mitral regurgitation. [id number] tricuspid valve regurgitation. Thickened aortic valve. Compared to the study from 10/31/2022, ejection fraction appears to be declining Obstructive pyelonephritis (~11/2021) Oliguria Renal atrophy, left Syncope Urolithiasis Multi stone former. Complicated by at least 1 episode of obstructive pyelonephritis. Multiple procedures required to treat Ventricular tachycardia Weakness Surgical History Nephrostomy status S/P ureteral stent placement (~11/2021) Status post cholecystectomy Status post placement of cardiac pacemaker Family History Father , AT AGE 77 CAD (coronary artery disease) Cancer lung cancer Mother , AT AGE 60 Cancer OVARIAN Denies family history of Clotting disorder Anesthesia complication Bleeding disorder Social History Smoking and tobacco status: current every day smoker cigarettes Packs smoked per day: 0.5 Years cigarettes smoked: 45 Second hand smoke exposure: Yes Alcohol intake: current Substance/Drug Use: never Lives independently: Yes Marital status: service: No Current occupational status: disabled Current gender identity: Female Physical Exam Const: COMMON NORMALS: alert GENERAL APPEARANCE: cooperative and well developed HENMT: COMMON NORMALS: normocephalic and atraumatic HEAD & SCALP: normocephalic and atraumatic Eye: COMMON NORMALS: conjunctivae normal CONJUNCTIVA: Yes conjunctivae normal SCLERA: sclerae normal Neck/C-Spine: COMMON NORMALS: supple GENERAL: Yes trachea midline Resp: COMMON NORMALS: normal respiratory effort and clear to auscultation bilaterally EFFORT & INSPECTION: Yes able to speak in complete sentences AUSCULTATION: clear to auscultation bilaterally Cardio: COMMON NORMALS: regular rate and regular rhythm RATE: regular rate RHYTHM: regular rhythm GI: COMMON NORMALS: Soft to palpation PALPATION: Yes Soft to palpation, Yes Tenderness to palpation present (GI), No Guarding due to palpation present (GI) and No Rigid due to palpation Extremity: GENERAL: Yes normal exam except as noted and No edema Neuro: COMMON NORMALS: moves all extremities SENSORIUM/ORIENTATION: Yes alert and No Orientation impaired Psych: COMMON NORMALS: mental status grossly normal and Normal thought process present THOUGHT PROCESS: Normal thought process present Course Vital Signs: Vital signs: Vital Signs Temperature 98.5 F 04/06/23 03:59 Pulse Rate 87 04/06/23 06:26 Respiratory Rate 16 04/06/23 06:26 Blood Pressure 118/91 04/06/23 06:26 Pulse Oximetry 95 04/06/23 06:26 Oxygen Delivery Me thod Room Air 04/06/23 04:34 MDM - Abdominal Pain Medical Decision Making 53-year-old lady with complex history presenting due to abdominal pain. Abdominal pain has become a chronic issue and likely secondary to cancer related pain with side effect of constipation related to opioid use. There is abdominal tenderness without evidence of guarding or distention, no evidence of acute surgical abdomen. Patient currently wearing a 25 mcg/h fentanyl patch. She reports a previously being prescribed hydrocodone 10 mg 325 mg and has been out for 2 days. Being out of pain medications likely explains worsening. Mental status is adequate and vitals are satisfactory. Labs with no leukocytosis, mild macrocytic anemia, normal platelet count. Metabolic panel with hypokalemia and decreased bicarb which has been noted previously. No UTI. Recent prior imaging reviewed. Abdominal x-ray without pneumatosis/pneumoperitoneum. Constipation present likely explain symptoms. Patient given antiemetic, analgesia, potassium supplementation, fluids. She feels improved. Plan to increase bowel regimen at home. The results of ED evaluation were discussed with the patient including prescriptions and/or symptomatic cares (if applicable) including appropriate and responsible use, followup plan, and return precautions. The patient verbalized understanding and felt safe for discharge. Medical Records I reviewed the patient's medical records. Lab Data I reviewed the patient's lab results. 04/06/23 04:12 04/06/23 04:12 Labs/Radiology: Radiology Impressions Abdomen X-Ray 04/06/23 04:11 IMPRESSION: 1. Constipation. No acute abdominal finding. Laboratory Results WBC 7.7 10^3/uL (4.0-10.0) 04/06/23 04:12 RBC 3.33 10^6/uL (4.1-5.3) L 04/06/23 04:12 Hgb 10.2 g/dL (11.5-15.3) L 04/06/23 04:12 Hct 34.8 % (37.0-47.0) L 04/06/23 04:12 MCV 104.5 fl (81-99) H 04/06/23 04:12 MCH 30.6 pg (28.0-34.0) 04/06/23 04:12 MCHC 29.3 g/dL (30.0-36.0) L 04/06/23 04:12 RDW 15.9 % (12.1-15.1) H 04/06/23 04:12 Plt Count 146 10^3/cmm (130-400) 04/06/23 04:12 MPV 11.6 fL (7.4-10.4) H 04/06/23 04:12 Neut % (Auto) 68.0 % 04/06/23 04:12 Lymph % (Auto) 22.5 % 04/06/23 04:12 [place] % (Auto) 7.1 % 04/06/23 04:12 Eos % (Auto) 1.0 % 04/06/23 04:12 Baso % (Auto) 0.9 % 04/06/23 04:12 Neut # (Auto) 5.20 10^3/uL (1.8-7.7) 04/06/23 04:12 Lymph # (Auto) 1.7 10^3/uL (0.8-4.8) 04/06/23 04:12 [place]renshaw # (Auto) 0.5 10^3/uL (0.2-0.9) 04/06/23 04:12 Eos # (Auto) 0.1 10^3/uL (0.0-0.8) 04/06/23 04:12 Baso # (Auto) 0.1 10^3/uL (0.0-0.1) 04/06/23 04:12 Nucleated RBC % (auto) 0 % 04/06/23 04:12 Nucleated RBCs # 0.0 /100WBC 04/06/23 04:12 Sodium 138 mmol/L (136-145) 04/06/23 04:12 Potassium 3.0 mmol/L (3.5-5.1) L 04/06/23 04:12 Chloride 108 mmol/L (98-107) H 04/06/23 04:12 Carbon Dioxide 15 mmol/L (22-29) L 04/06/23 04:12 Anion Gap 18.0 (5-19) 04/06/23 04:12 BUN 18 mg/dL (6-20) 04/06/23 04:12 Creatinine 0.9 mg/dL (0.5-0.9) 04/06/23 04:12 GFR Calculation 65.5 mL/min (90-130) L 04/06/23 04:12 Glucose 87 mg/dL (65-115) 04/06/23 04:12 Calculated Osmolality 287 mOsm/kg (285-295) 04/06/23 04:12 Calcium 7.3 mg/dL (8.5-10.5) L 04/06/23 04:12 Urine Color Yellow (Yellow) 04/06/23 05:11 Urine Appearance Clear (CLEAR) 04/06/23 05:11 Urine pH 5 (5-7) 04/06/23 05:11 Ur Specific [place] 1.025 (1.005-1.030) 04/06/23 05:11 Urine Protein 1+ (Negative) H 04/06/23 05:11 Urine Glucose (UA) Norm (Normal) 04/06/23 05:11 Urine Ketones 1+ (Negative) H 04/06/23 05:11 Urine Blood Neg (Negative) 04/06/23 05:11 Urine Nitrate Negative (Negative) 04/06/23 05:11 Urine Bilirubin 1+ (Negative) H 04/06/23 05:11 Urine Urobilinogen 1 mg/dL (Negative) H 04/06/23 05:11 Ur Leukocyte Esterase Negative (Negative) 04/06/23 05:11 Urine RBC None /hpf (0-2) 04/06/23 05:11 Urine WBC None /hpf (0-5) 04/06/23 05:11 Ur Squamous Epith Cells 0-4 /hpf (0-5) H 04/06/23 05:11 Amorphous Sediment Not Reportable 04/06/23 05:11 Urine Bacteria 1+ /hpf (NONE) H 04/06/23 05:11 Urine Mucus 1+ /hpf 04/06/23 05:11 Discharge Plan Discharge Patient Disposition: Home Clinical Impression: Abdominal pain, Constipation, Cancer related pain Condition: Stable Prescriptions: New Miralax 17 gram/dose powder 17 g PO TID PRN (Reason: constipation) Qty: 238 0RF lactulose 20 gram/30 mL solution 20 g PO TID PRN (Reason: constipation) Qty: 1200 3RF fentanyl 25 mcg/hr patch 72 hour 1 patch transdermal Q72H Qty: 5 0RF hydrocodone-acetaminophen 10-325 mg tablet 1 tab PO Q6H PRN (Reason: pain) Qty: 20 0RF Discontinued polyethylene glycol 3350 [Miralax] 17 gram/dose powder 17 g PO DAILY No Action citalopram [Celexa] 40 mg tablet 40 mg PO QPM zolpidem 10 mg tablet 10 mg PO BEDTIME aspirin [Adult Low Dose Aspirin] 81 mg tablet,delayed release (DR/EC) 162 mg PO QAM Hold Instructions: Resume on 10/19/22. Until after percutaneous tube placed in the left kidney carvedilol 6.25 mg tablet 6.25 mg PO BID Qty: 180 2RF Hold Instructions: Resume on 01/12/23. Rx Instructions: must administer with a meal/food hydrocodone-acetaminophen 5-325 mg tablet 1 tab PO Q6H PRN (Reason: pain) 30 Days Qty: 90 0RF Vitamin B-12 50 mcg Tablet 50 mcg PO QAM montelukast 10 mg tablet 10 mg PO QAM furosemide [Lasix] 40 mg tablet 40 mg PO BID spironolactone 25 mg tablet 25 mg PO QAM magnesium 200 mg tablet 200 mg PO QAM Entresto 97-103 mg Tablet 1 tab PO BID amiodarone 400 mg tablet 400 mg PO DAILY 30 Days Qty: 30 3RF Rx Instructions: START FROM 01/23 (not started as of 01/20/23 HAS TO FINISHED BID DOSE) ondansetron 4 mg tablet,disintegrating 4 mg PO Q6H PRN (Reason: nausea and vomiting) Qty: 14 0RF acetaminophen 500 mg Tablet 1,000 mg PO Q6H PRN (Reason: Pain) nitroglycerin [Nitrostat] 0.4 mg Tablet, Sublingual 0.4 mg SUBLINGUAL Q5M PRN (Reason: Chest Pain) Rx Instructions: do not exceed 3 doses per episode albuterol sulfate 90 mcg/actuation HFA aerosol inhaler 2 puff INHALATION QID PRN (Reason: Shortness Of Breath) midodrine 5 mg Tablet 5 mg PO BID PRN (Reason: Sbp less than 100) Qty: 20 0RF lisinopril 5 mg tablet 5 mg PO DAILY promethazine 25 mg tablet 25 mg PO TID PRN (Reason: nausea and vomiting) Qty: 20 0RF Enema Disposable 19-7 gram/118 mL enema 118 ml AR DAILY PRN (Reason: constipation) Qty: 133 5RF Dulcolax (bisacodyl) 5 mg tablet,delayed release (DR/EC) 5 mg PO BID PRN (Reason: constipation) Qty: 30 0RF Discharge Orders: Discharge ED (Routine); Ordered 04/06/23 Ordered By: Schuyler Borden Referrals: Mavis Peterson PA [Primary Care Provider] - Discharge Diet: Advance as tolerated and Clear Liquid Discharge Activity: Increase activity as tolerated Patient Instructions: Constipation (ED), Abdominal Pain (ED), Opioid Safety Activity Restrictions/Additional Instructions: Thank you for visiting the emergency department. You were seen and evaluated for abdominal pain. The most likely cause of your symptoms is related to underlying liver cancer. I will prescribe pain medications in order to control your pain until you can follow-up with your oncology and primary care team. For constipation I recommend MiraLAX 1 capful 3 times a day mixed with electrolyte solution, if that is ineffective after 1 day I recommend also adding lactulose. Adjust medication dosage for multiple applesauce consistency bowel movements per day. Return for uncontrolled symptoms or anything else that you are concerned about and feel needs emergency department evaluation. Coding Level of Care Code ED Supervisor Special Education for Wesley Herrera
--- NOTE | 2023-04-06 04:11 | XR_ITS ---
WS: [id number] Exam: XR abdomen 1V* [id number] Date/Time of Exam: 04/06/2023 4:17 AM Reason For Exam: abd pain, constipation Comparison 01/20/2023. No sign of acute bowel obstruction or pneumoperitoneum. Large amount retained stool in the transverse and left colon. No sign of organ enlargement. Signs of prior cholecystectomy. Bony structures are in tact. Hardware noted in the proximal left femur. XR/XR abdomen 1V* [id number] IMPRESSION: 1. Constipation. No acute abdominal finding.
[2023-04-06] MEDS: morphine 4 mg/mL SDV 1 mL IVP (04:17)
[2023-04-06] MEDS: sodium chloride 0.9% 1,000 ML 999 ML IV (04:17)
[2023-04-06] MEDS: ondansetron 2 mg/ML SDV 2 mL 4 MG IVP (04:17)
[2023-04-06 04:19] LABS: Basophils # 0.1 10^3/uL (0.0-0.1); Basophils % 0.9 %; Eosinophils # 0.1 10^3/uL (0.0-0.8); Hematocrit 34.8 % (37.0-47.0); Hemoglobin 10.2 g/dL (11.5-15.3); Lymphocytes # 1.7 10^3/uL (0.8-4.8); Lymphocytes % 22.5 %; Mean Corpuscular HGB Conc 29.3 g/dL (30.0-36.0); Mean Corpuscular Hemoglobin 30.6 pg (28.0-34.0); Mean Corpuscular Volume 104.5 fl (81-99); Mean Platelet Volume 11.6 fL (7.4-10.4); Monocytes # 0.5 10^3/uL (0.2-0.9); Monocytes % 7.1 %; Nucleated Red Blood Cells % 0 %; Platelet Count 146 10^3/cmm (130-400); Red Blood Count 3.33 10^6/uL (4.1-5.3); Red Cell Distribution Width 15.9 % (12.1-15.1); White Blood Count 7.7 10^3/uL (4.0-10.0)
[2023-04-06 04:34] VITALS: BP 117/84; PULSE 86; RESP 17; O2SAT 97
[2023-04-06 04:41] LABS: Blood Urea Nitrogen 18 mg/dL (6-20); Calcium 7.3 mg/dL (8.5-10.5); Carbon Dioxide 15 mmol/L (22-29); Chloride 108 mmol/L (98-107); Glomerular Filtration Rate 65.5 mL/min (90-130); Glucose 87 mg/dL (65-115); Osmolality Calculated 287 mOsm/kg (285-295); Sodium 138 mmol/L (136-145)
[2023-04-06] MEDS: potassium chloride oral liq 20 mEq/15 mL UDC 40 MEQ PO (04:51)
[2023-04-06] MEDS: ketorolac 30 mg/mL INJ 15 MG IVP (04:52)
[2023-04-06] MEDS: HYDROcodone-acetaminophen 10-325 mg Tablet 1 TAB PO (05:38)
[2023-04-06 05:51] LABS: Bilirubin Urine 1+ (Negative); Blood Urine Neg (Negative); Glucose Urine UA Norm (Normal); Ketones Urine 1+ (Negative); Leukocyte Esterase Urine Negative (Negative); Nitrate Urine Negative (Negative); Protein Urine 1+ (Negative); Specific Gravity, Urine 1.025 (1.005-1.030); Urine Appearance Clear (CLEAR); Urine Color Yellow (Yellow); Urobilinogen Urine 1 mg/dL (Negative); pH Urine 5 (5-7)
[2023-04-06 05:52] LABS: Add Urine Culture? No; Add Urine Microscopic? YES; Bacteria Urine 1+ /hpf; Mucus Urine 1+ /hpf; Squamous Epithelial Cell Urine 0-4 /hpf (0-5)
[2023-04-06 06:26] VITALS: BP 118/91; PULSE 87; RESP 16; O2SAT 95
== END 2023-04-06 06:28 | disposition home or self-care (01) ==
PROVIDERS: Emergency Provider Emergency Medicine; PCP Physician Assistant
DX: K59.00 Constipation, unspecified (principal); G89.3 Neoplasm related pain (acute) (chronic); C22.9 Malignant neoplasm of liver, not specified as primary or secondary; Z79.82 Long term (current) use of aspirin; F17.210 Nicotine dependence, cigarettes, uncomplicated; Z95.0 Presence of cardiac pacemaker; I13.0 Hypertensive heart and chronic kidney disease with heart failure and stage 1 through stage 4 chronic kidney disease, or unspecified chronic kidney disease; N18.9 Chronic kidney disease, unspecified; I50.9 Heart failure, unspecified; Z86.73 Personal history of transient ischemic attack (TIA), and cerebral infarction without residual deficits
CPT/HCPCS: 74018; 80048; 81001; 85025; 96374; 96375; 99284; J1885; J2270; J2405; J7030

== ENCOUNTER 2023-04-08 06:12 | Outpatient (CLI) | payer MEDICARE, MEDICAID, SELFPAY ==
--- NOTE | 2023-04-08 12:00 | PETR_ITS ---
PROCEDURE INFORMATION: Exam: PET/CT Skull Base to Mid-thigh Exam date and time: 04/08/2023 11:58 AM Age: 53 years old Clinical indication: Abnormal findings; The posterior. Aspect of the right hepatic lobe shows a circumscribed mass with. Measurements of 34 mm x 38 mm x 47 mm. 03/01/23; Prior surgery; Surgery date: 6+ months; Surgery type: Gb, pacemaker, lt kidney port, left hip pinning; Additional info: Staging LABS AND CLINICAL REPORTS: Glucose: 117 mg/dl Treatment strategy for malignancy (PET staging): Initial Staging (PI) TECHNIQUE: Imaging protocol: Following at least four-hour fasting and following the injection of radiopharmaceutical, low dose CT images were obtained. Then, PET images were obtained. Attenuation corrected images were constructed using the CT scan. Fused images of PET and CT were reviewed. The standardized uptake values (SUV) reported below are maximum values within a region of interest, expressed in gm/ml. Exam includes orbital meatal line to mid-thigh. Radiopharmaceutical: 13.37 mCi F-18 FDG (Fluorodeoxyglucose), IV. Time of imaging post radiopharmaceutical administration: 1 hour Injection site: Right AC COMPARISON: CT abdomen pelvis wo con [id number] 02/13/2023 6:49 AM FINDINGS: Tubes, catheters and devices: Cardiac rhythm maintenance device is in place. Percutaneous nephrostomy tube is seen in the left kidney. No hydronephrosis. Brain: Visualized brain has normal physiologic uptake. Pharynx: No abnormal uptake. Larynx: No abnormal uptake. Lungs, pleura and trachea: Moderate right and small left pleural effusions are new from prior. Heart: Cardiomegaly. Mediastinal space: No abnormal uptake. Liver: Hypermetabolic posterior right hepatic lobe mass has SUV max 6.5. There appears to be some hypermetabolic uptake associated with some nodularity along the right hemidiaphragm. Gallbladder and bile ducts: Cholecystectomy. Pancreas: No abnormal uptake. Spleen: No abnormal uptake. Adrenal glands: Hypermetabolic right adrenal nodule has SUV max 8.7. Kidneys and ureters: No hydronephrosis. Stomach and bowel: Mild FDG uptake in the region of the ileocecal valve with SUV max 5.6. There is also some mild FDG uptake in the proximal transverse colon with SUV max 6.8. Intraperitoneal and retroperitoneal spaces: Small volume ascites is new from prior. Small hypermetabolic mesenteric soft tissue nodule in the left lower quadrant has SUV max 3.5 (image 120). There also appears to be some hypermetabolic nodularity in the cul-de-sac with SUV max 4.4 (image 133). Vasculature: No abnormal uptake. Lymph nodes: Hypermetabolic brunilda hepatis lymph node adjacent to the right adrenal gland has SUV max 9.2. Bones/joints: Prior ORIF of the left femur. Soft tissues: There is a focus of FDG uptake in the right axilla with SUV max 3.8. No definite lymphadenopathy is seen in this region. PET/PET skulltothigh INITIAL [id number] IMPRESSION: 1. Malignant range FDG uptake is seen within the posterior right hepatic mass as well as within the right adrenal gland and the lymph node adjacent to the right adrenal gland. There are also hypermetabolic peritoneal soft tissue nodules and new small volume ascites, concerning for peritoneal carcinomatosis as well as right hemidiaphragmatic involvement. 2. A couple areas of mild FDG uptake are seen in the right hemicolon. Recommend correlation with colonoscopy. 3. Small focus of FDG uptake in the right axilla without definite lymphadenopathy identified, possibly artifactual. Attention on follow-up is recommended. 4. Moderate right and small left pleural effusions are new from prior.
== END 2023-04-08 06:13 | disposition home or self-care (01) ==
LOC: RAD 04-10 06:12
PROVIDERS: PCP Physician Assistant; Visit Provider Internal Medicine Hematology & Oncology
DX: C22.9 Malignant neoplasm of liver, not specified as primary or secondary (principal); R18.8 Other ascites; J90 Pleural effusion, not elsewhere classified
CPT/HCPCS: 78815; A9552

== ENCOUNTER 2023-04-11 21:46 | Emergency (ER) | payer MEDICARE, MEDICAID, SELFPAY ==
[2023-04-11 21:48] VITALS: BP 121/80; PULSE 84; RESP 14; TEMP 36.6; O2SAT 98; BMI 26.6
--- NOTE | 2023-04-11 21:51 | XRR_ITS ---
PROCEDURE INFORMATION: Exam: XR Abdomen Exam date and time: 04/11/2023 10:03 PM Age: 53 years old Clinical indication: Abdominal pain; Additional info: Abd pain TECHNIQUE: Imaging protocol: Radiologic exam of the abdomen. Views: Frontal supine view of the abdomen. 1 View. COMPARISON: CR (ABDOMEN, ) 04/06/2023 4:22 AM FINDINGS: Tubes, catheters and devices: Left mid abdominal percutaneous drainage catheter remains in place, unchanged. Gastrointestinal tract: Large colonic fecal volume. Negative for small bowel dilation. Intraperitoneal space: Negative for pneumoperitoneum. Organs: Hepatomegaly redemonstrated. Vasculature: Calcified plaques of abdominal aorta redemonstrated. Bones/joints: Left proximal femur surgical hardware partially included. XR/XR abdomen 1V* [id number] IMPRESSION: 1. Negative for acute abdominal pathology. 2. No significant change from comparison.
--- NOTE | 2023-04-11 21:51 | W.ED.ABDPA2 ---
HPI - Abdominal Pain General: Chief Complaint: General Medical Stated Complaint: ABD PAIN Time Seen by Provider: 04/11/23 21:51 History of Present Illness: 53-year-old lady with complex past medical history including liver cancer and nonischemic cardiomyopathy presented to the department for evaluation of abdominal pain. She has had similar presentations in the past. She notes increased pain over the past hour despite home medications. Has had hard bowel movements, still passing gas. Pain is generalized and cramping. Denies fevers, blood in stool, hematemesis, shortness of breath, chest pain. No other specific changes in health, exacerbating, or alleviating factors identified. Onset (ago): hour(s) Severity: moderate Exacerbating factors: nothing Relieving factors: nothing Associated Symptoms: Reports constipation and nausea Review of Systems General: Reports: 10 or more systems reviewed and unremarkable except in HPI and below GI: Reports: nausea and constipation [facility] PFSH: Medical History Acute hypokalemia Acute on chronic systolic heart failure Adenocarcinoma determined by biopsy of liver AICD discharge GERRI (acute kidney injury) Anemia Cardiogenic shock Chest pain Chest pain CHF (congestive heart failure) Chronic systolic (congestive) heart failure CKD (chronic kidney disease) Closed intertrochanteric fracture of left hip Defibrillator discharge Encounter for testing following appropriate discharge of implantable cardioverter-defibrillator (ICD) History of recurrent UTIs History of TIA (transient ischemic attack) HTN (hypertension) Hydronephrosis, left Hypertension Hypokalemia Hypokalemia ICD (implantable cardioverter-defibrillator) in place Idiopathic ventricular fibrillation Liver mass Macrocytic anemia Mass of right lobe of liver ~3.5 x 4 cm, indeterminant, hypodense, first noted 11/2021 Nicotine dependence, cigarettes, uncomplicated Non-ischemic cardiomyopathy Nonischemic cardiomyopathy Severe diffuse hypokinesia of the left ventricle with an ejection fraction of 15 to 20%. Right ventricular appears to be normal size and ejection fraction. Mild biatrial enlargement. Thickened mitral valve. Moderately severe mitral regurgitation. [id number] tricuspid valve regurgitation. Thickened aortic valve. Compared to the study from 10/31/2022, ejection fraction appears to be declining Obstructive pyelonephritis (~11/2021) Oliguria Renal atrophy, left Syncope Urolithiasis Multi stone former. Complicated by at least 1 episode of obstructive pyelonephritis. Multiple procedures required to treat Ventricular tachycardia Weakness Surgical History Nephrostomy status S/P ureteral stent placement (~11/2021) Status post cholecystectomy Status post placement of cardiac pacemaker Family History Father , AT AGE 77 CAD (coronary artery disease) Cancer lung cancer Mother , AT AGE 60 Cancer OVARIAN Denies family history of Clotting disorder Anesthesia complication Bleeding disorder Social History Smoking and tobacco status: current every day smoker cigarettes Packs smoked per day: 0.5 Years cigarettes smoked: 45 Second hand smoke exposure: Yes Alcohol intake: current Substance/Drug Use: never Lives independently: Yes Marital status: service: No Current occupational status: disabled Current gender identity: Female Physical Exam Const: COMMON NORMALS: alert GENERAL APPEARANCE: cooperative and well developed HENMT: COMMON NORMALS: normocephalic and atraumatic HEAD & SCALP: normocephalic and atraumatic Eye: COMMON NORMALS: conjunctivae normal CONJUNCTIVA: Yes conjunctivae normal SCLERA: sclerae normal Neck/C-Spine: COMMON NORMALS: supple GENERAL: Yes trachea midline Resp: COMMON NORMALS: clear to auscultation bilaterally EFFORT & INSPECTION: Yes able to speak in complete sentences AUSCULTATION: clear to auscultation bilaterally Cardio: COMMON NORMALS: regular rate and regular rhythm RATE: regular rate RHYTHM: regular rhythm GI: COMMON NORMALS: Soft to palpation PALPATION: Yes Soft to palpation, Yes Tenderness to palpation present (GI) and No Rigid due to palpation Extremity: GENERAL: Yes normal exam except as noted and No edema Neuro: COMMON NORMALS: moves all extremities SENSORIUM/ORIENTATION: Yes alert and No Orientation impaired Psych: COMMON NORMALS: mental status grossly normal and Normal thought process present THOUGHT PROCESS: Normal thought process present Course Vital Signs: Vital signs: Vital Signs Temperature 97.8 F 04/11/23 21:48 Pulse Rate 83 04/12/23 02:30 Respiratory Rate 18 04/12/23 02:30 Blood Pressure 113/90 04/12/23 02:30 Pulse Oximetry 97 04/12/23 02:30 Oxygen Delivery Me thod Room Air 04/12/23 02:09 MDM - Abdominal Pain Medical Decision Making 53-year-old lady with complex history including likely metastatic liver cancer presenting from her department for evaluation of abdominal pain. She reports similar symptoms to prior with generalized abdominal pain associate with constipation. She has been taking home medications without significant relief. She still is having flatus. Patient is chronically ill however nontoxic in appearance. Abdominal exam with tenderness however no evidence of acute surgical abdomen. Labs notable for no leukocytosis, normal hemoglobin and platelet count. Metabolic panel without acute electrolyte derangements. Perhaps mild dehydration compared to baseline. Mild transaminitis. Lactic acid is elevated of uncertain cause. Patient is mentating adequately and extremities are warm and well-perfused without volume overload. Vitals are satisfactory. Clinical history provided is not consistent with sepsis (no infectious symptoms reported) and abdominal exam is not consistent with bowel ischemia. No urinary symptoms reported. Recent imaging reviewed. Abdominal x-ray negative for acute pathology or significant change compared to prior. She continues to have evidence of constipation. No evidence of obstructive gas pattern. No pneumatosis or free air. Patient treated with analgesia, antiemetic, medications for constipation and IV fluids. Some improvement on reassessment. Plan to increase outpatient bowel regimen. Likely cause of pain is multifactorial. No indication for hospitalization at this time. The results of ED evaluation were given to the patient including prescriptions and/or symptomatic cares (if applicable) including appropriate and responsible use, followup plan, and return precautions. The patient verbalized understanding and felt safe for discharge. Medical Records I reviewed the patient's medical records. Lab Data I reviewed the patient's lab results. 04/11/23 23:04 04/11/23 23:04 Labs/Radiology: Radiology Impressions Abdomen X-Ray 04/11/23 21:51 IMPRESSION: 1. Negative for acute abdominal pathology. 2. No significant change from comparison. Laboratory Results WBC 8.7 10^3/uL (4.0-10.0) 04/11/23 23: RBC 3.87 10^6/uL (4.1-5.3) L 04/11/23 23:04 Hgb 11.7 g/dL (11.5-15.3) 04/11/23 23: Hct 38.6 % (37.0-47.0) 04/11/23 23: MCV 99.7 fl (81-99) H 04/11/23 23:04 MCH 30.2 pg (28.0-34.0) 04/11/23 23: MCHC 30.3 g/dL (30.0-36.0) 04/11/23 23:04 RDW 16.8 % (12.1-15.1) H 04/11/23 23:04 Plt Count 172 10^3/cmm (130-400) 04/11/23 23:04 MPV 11.6 fL (7.4-10.4) H 04/11/23 23:04 Neut % (Auto) 76.7 % 04/11/23 23: Lymph % (Auto) 17.6 % 04/11/23 23: Jackson % (Auto) 4.5 % 04/11/23 23: Eos % (Auto) 0.2 % 04/11/23 23:04 Baso % (Auto) 0.2 % 04/11/23 23: Neut # (Auto) 6.69 10^3/uL (1.8-7.7) 04/11/23 23: Lymph # (Auto) 1.5 10^3/uL (0.8-4.8) 04/11/23 23:04 Jackson # (Auto) 0.4 10^3/uL (0.2-0.9) 04/11/23 23: Eos # (Auto) 0.0 10^3/uL (0.0-0.8) 04/11/23 23: Baso # (Auto) 0.0 10^3/uL (0.0-0.1) 04/11/23 23: Nucleated RBC % (auto) 0.2 % 04/11/23 23: Nucleated RBCs # 0.0 /100WBC 04/11/23 23:04 Sodium 136 mmol/L (136-145) 04/11/23 23: Potassium 4.5 mmol/L (3.5-5.1) 04/11/23 23:04 Chloride 103 mmol/L (98-107) 04/11/23 23:04 Carbon Dioxide 17 mmol/L (22-29) L 04/11/23 23:04 Anion Gap 20.5 (5-19) H 04/11/23 23:04 BUN 17 mg/dL (6-20) 04/11/23 23:04 Creatinine 1.1 mg/dL (0.5-0.9) H 04/11/23 23:04 GFR Calculation 52.0 mL/min (90-130) L 04/11/23 23:04 Glucose 106 mg/dL (65-115) 04/11/23 23:04 Calculated Osmolality 284 mOsm/kg (285-295) L 04/11/23 23:04 Lactic Acid 3.8 mmol/L (0.5-2.2) H 04/11/23 23:04 Calcium 8.3 mg/dL (8.5-10.5) L 04/11/23 23:04 Total Bilirubin 1.0 mg/dL (0.15-1.2) 04/11/23 23:04 AST 56 U/L (0-32) H 04/11/23 23:04 ALT 37 U/L (0-33) H 04/11/23 23:04 Alkaline Phosphatase 103 U/L (35-105) 04/11/23 23:04 Total Protein 5.5 g/dL (6.6-8.7) L 04/11/23 23:04 Albumin 3.4 g/dL (3.5-5.2) L 04/11/23 23:04 Globulin 2.1 g/dL (1.3-4.6) 04/11/23 23:04 Lipase 19 U/L (13-60) 04/11/23 23:04 Discharge Plan Discharge Patient Disposition: Home Clinical Impression: Constipation, Abdominal pain Condition: Stable Prescriptions: New Enema Disposable 19-7 gram/118 mL enema 118 ml PA DAILY PRN (Reason: constipation) Qty: 133 5RF Dulcolax (bisacodyl) 5 mg tablet,delayed release (DR/EC) 5 mg PO BID PRN (Reason: constipation) Qty: 30 0RF No Action citalopram [Celexa] 40 mg tablet 40 mg PO QPM zolpidem 10 mg tablet 10 mg PO BEDTIME aspirin [Adult Low Dose Aspirin] 81 mg tablet,delayed release (DR/EC) 162 mg PO QAM Hold Instructions: Resume on 10/19/22. Until after percutaneous tube placed in the left kidney carvedilol 6.25 mg tablet 6.25 mg PO BID Qty: 180 2RF Hold Instructions: Resume on 01/12/23. Rx Instructions: must administer with a meal/food hydrocodone-acetaminophen 5-325 mg tablet 1 tab PO Q6H PRN (Reason: pain) 30 Days Qty: 90 0RF Vitamin B-12 50 mcg Tablet 50 mcg PO QAM montelukast 10 mg tablet 10 mg PO QAM furosemide [Lasix] 40 mg tablet 40 mg PO BID spironolactone 25 mg tablet 25 mg PO QAM magnesium 200 mg tablet 200 mg PO QAM Entresto 97-103 mg Tablet 1 tab PO BID amiodarone 400 mg tablet 400 mg PO DAILY 30 Days Qty: 30 3RF Rx Instructions: START FROM 01/23 (not started as of 01/20/23 HAS TO FINISHED BID DOSE) ondansetron 4 mg tablet,disintegrating 4 mg PO Q6H PRN (Reason: nausea and vomiting) Qty: 14 0RF Miralax 17 gram/dose powder 17 g PO TID PRN (Reason: constipation) Qty: 238 0RF lactulose 20 gram/30 mL solution 20 g PO TID PRN (Reason: constipation) Qty: 1200 3RF fentanyl 25 mcg/hr patch 72 hour 1 patch transdermal Q72H Qty: 5 0RF hydrocodone-acetaminophen 10-325 mg tablet 1 tab PO Q6H PRN (Reason: pain) Qty: 20 0RF acetaminophen 500 mg Tablet 1,000 mg PO Q6H PRN (Reason: Pain) nitroglycerin [Nitrostat] 0.4 mg Tablet, Sublingual 0.4 mg SUBLINGUAL Q5M PRN (Reason: Chest Pain) Rx Instructions: do not exceed 3 doses per episode albuterol sulfate 90 mcg/actuation HFA aerosol inhaler 2 puff INHALATION QID PRN (Reason: Shortness Of Breath) midodrine 5 mg Tablet 5 mg PO BID PRN (Reason: Sbp less than 100) Qty: 20 0RF lisinopril 5 mg tablet 5 mg PO DAILY promethazine 25 mg tablet 25 mg PO TID PRN (Reason: nausea and vomiting) Qty: 20 0RF Discharge Orders: Discharge ED (Routine); Ordered 04/12/23 Ordered By: Schuyler Borden Referrals: Peterson,Mavis L, PA [Primary Care Provider] - Discharge Diet: Clear Liquid Discharge Activity: Increase activity as tolerated Patient Instructions: Constipation (ED), Abdominal Pain (ED), Opioid Safety Activity Restrictions/Additional Instructions: Thank you for visiting the emergency department. You were seen and evaluated for continued abdominal pain. The exact cause of your pain is likely multifactorial. You do have continued evidence of constipation. Otherwise labs are generally similar to prior. Please continue your MiraLAX and lactulose. I will add a prescription for enema and also Dulcolax. The goal is to have multiple applesauce consistency stools per day. Please ensure that you are staying hydrated. Follow-up with your oncology and primary care team. Return for severe uncontrolled symptoms Coding Level of Care Code ED Special Loan Officer for Wesley Herrera
[2023-04-11 21:57] VITALS: RESP 18
[2023-04-11] MEDS: morphine 4 mg/mL SDV 1 mL IVP (21:57)
[2023-04-11] MEDS: ondansetron 2 mg/ML SDV 2 mL 4 MG IVP (21:58)
[2023-04-11 22:05] VITALS: BP 125/82; O2SAT 100
[2023-04-11 23:14] LABS: Basophils % 0.2 %; Eosinophils % 0.2 %; Hematocrit 38.6 % (37.0-47.0); Hemoglobin 11.7 g/dL (11.5-15.3); Lymphocytes # 1.5 10^3/uL (0.8-4.8); Lymphocytes % 17.6 %; Mean Corpuscular HGB Conc 30.3 g/dL (30.0-36.0); Mean Corpuscular Hemoglobin 30.2 pg (28.0-34.0); Mean Corpuscular Volume 99.7 fl (81-99); Mean Platelet Volume 11.6 fL (7.4-10.4); Monocytes # 0.4 10^3/uL (0.2-0.9); Monocytes % 4.5 %; Neutrophils # 6.69 10^3/uL (1.8-7.7); Neutrophils % 76.7 %; Nucleated Red Blood Cells % 0.2 %; Platelet Count 172 10^3/cmm (130-400); Red Blood Count 3.87 10^6/uL (4.1-5.3); Red Cell Distribution Width 16.8 % (12.1-15.1); White Blood Count 8.7 10^3/uL (4.0-10.0)
[2023-04-11 23:17] VITALS: BP 113/81; PULSE 80; O2SAT 91
[2023-04-11 23:43] LABS: Alanine Aminotransferase 37 U/L (0-33); Albumin Level 3.4 g/dL (3.5-5.2); Alkaline Phosphatase 103 U/L (35-105); Blood Urea Nitrogen 17 mg/dL (6-20); Calcium 8.3 mg/dL (8.5-10.5); Carbon Dioxide 17 mmol/L (22-29); Chloride 103 mmol/L (98-107); Globulin 2.1 g/dL (1.3-4.6); Glucose 106 mg/dL (65-115); Lactic Sepsis W/Reflex 3.8 mmol/L (0.5-2.2); Lipase 19 U/L (13-60); Osmolality Calculated 284 mOsm/kg (285-295); Sodium 136 mmol/L (136-145); Total Protein 5.5 g/dL (6.6-8.7)
[2023-04-11 23:45] LABS: Anion Gap 20.5 (5-19); Aspartate Amino Transferase 56 U/L (0-32); Potassium 4.5 mmol/L (3.5-5.1)
[2023-04-12] MEDS: mineral oil 30 mL UDC PO (00:31)
[2023-04-12] MEDS: magnesium hydroxide 30 mL UDC PO (00:31)
[2023-04-12] MEDS: lactulose oral liq 20 gm/30 mL UDC PO (00:31)
[2023-04-12 00:35] VITALS: BP 122/88; PULSE 81; RESP 18; O2SAT 100
[2023-04-12 00:58] LABS: Reflex Lactate Order REFLEX LACTIC ORDERD
[2023-04-12] MEDS: Fleet Enema 133 mL Enema PR (01:02)
[2023-04-12] MEDS: sodium chloride 0.9% 1,000 ML 999 ML IV (01:20)
[2023-04-12] MEDS: metoclopramide 5 mg/mL SDV 2 mL 10 MG IVP (02:04)
[2023-04-12] MEDS: acetaminophen 325 mg Tablet 650 MG PO (02:05)
[2023-04-12 02:09] VITALS: BP 105/78; PULSE 83; RESP 20; O2SAT 100
[2023-04-12 02:30] VITALS: BP 113/90; PULSE 83; RESP 18; O2SAT 97
== END 2023-04-12 02:47 | disposition home or self-care (01) ==
PROVIDERS: Emergency Provider Emergency Medicine; PCP Physician Assistant
DX: R10.84 Generalized abdominal pain (principal); K59.00 Constipation, unspecified; E86.0 Dehydration; R74.01 Elevation of levels of liver transaminase levels; R74.02 Elevation of levels of lactic acid dehydrogenase [LDH]
CPT/HCPCS: 36415; 74018; 80053; 83605; 83690; 85025; 96361; 96374; 96375; 99284; J2270; J2405; J2765; J7030

== ENCOUNTER 2023-04-12 19:30 | Emergency (ER) | payer MEDICARE, MEDICAID, SELFPAY ==
[2023-04-12] VITALS (14 sets, daily range): BP systolic 73–157; BP diastolic 44–101; PULSE 72–120; RESP 14; TEMP 36.3; O2SAT 69–99; BMI 25.7
[2023-04-12] MEDS: EPINEPHrine 0.1 mg/mL SYR 10 mL 1 MG IVP ×3 (19:39→20:35)
[2023-04-12] MEDS: sodium bicarbonate 1 mEq/mL SDV 50mL 100 MEQ IVP (19:40)
[2023-04-12] MEDS: calcium chloride 10% Syr 10 mL 1 GM IVP ×2 (19:40→19:45)
[2023-04-12] MEDS: naloxone 0.4 mg/ml SDV IVP (19:43)
[2023-04-12] MEDS: vecuronium 10 mg SDV 7 MG IVP (19:45)
[2023-04-12 19:48] LABS: Basophils % 0.2 %; Eosinophils % 0.2 %; Hematocrit 37.2 % (37.0-47.0); Hemoglobin 10.5 g/dL (11.5-15.3); Lymphocytes # 4.3 10^3/uL (0.8-4.8); Lymphocytes % 35.2 %; Mean Corpuscular HGB Conc 28.2 g/dL (30.0-36.0); Mean Corpuscular Hemoglobin 30.3 pg (28.0-34.0); Mean Corpuscular Volume 107.5 fl (81-99); Mean Platelet Volume 11.8 fL (7.4-10.4); Monocytes # 0.8 10^3/uL (0.2-0.9); Monocytes % 6.4 %; Neutrophils # 6.88 10^3/uL (1.8-7.7); Neutrophils % 56.9 %; Nucleated Red Blood Cells % 0.2 %; Platelet Count 158 10^3/cmm (130-400); Red Blood Count 3.46 10^6/uL (4.1-5.3); Red Cell Distribution Width 16.6 % (12.1-15.1); White Blood Count 12.1 10^3/uL (4.0-10.0)
--- NOTE | 2023-04-12 19:48 | XRR_ITS ---
PROCEDURE INFORMATION: Exam: XR Chest Exam date and time: 04/12/2023 7:53 PM Age: 53 years old Clinical indication: Other: Post code TECHNIQUE: Imaging protocol: Radiologic exam of the chest. Views: 1 view. COMPARISON: 1. CR XR chest 1V portable [id number] 03/01/2023 1:46 PM 2. PT [facility] INIT[facility] [id number] 04/08/2023 11:58 AM FINDINGS: Tubes, catheters and devices: There is a three-lead cardiac AICD via left subclavian approach. Findings are stable. External defibrillator patches overlie the chest. Interval placement of an endotracheal tube with the tip 4.0 cm above the jigar. Lungs: Interval development of mild interstitial pulmonary edema with left lower lobe atelectasis. Pleural spaces: Haziness of the right and left hemithoraces, worse on the right. Findings are likely due to layering of bilateral pleural effusions as noted on the prior PET/CT scan. No pneumothorax. Heart/Mediastinum: Moderate enlargement of the cardiac silhouette, stable compared with PET/CT scan dated 04/08/2023. Mediastinal contours are unremarkable. Bones/joints: Unremarkable for age. XR/XR chest 1V portable [id number] IMPRESSION: 1. Interval development of mild interstitial pulmonary edema with left lower lobe atelectasis. 2. Haziness of the right and left hemithoraces, worse on the right. Findings are likely due to layering of bilateral pleural effusions as noted on the prior PET/CT scan. 3. Interval placement of an endotracheal tube with the tip 4.0 cm above the jigar. 4. Incidental/nonacute findings are listed in the report.
--- NOTE | 2023-04-12 19:49 | ECG_ITS ---
[facility] Test Date: 2023-04-12 Pat Name: Elena Pulliam Department: Room: Gender: Female [place]: : 1970 Requested By: Schuyler Borden Order Number: [id number] Arlette MD: Pola Ferrera M.D. Measurements Intervals [place] Rate: 79 P: -37 MD: 136 QRS: -89 QRSD: 278 T: 89 QT: 603 QTc: 692 Interpretive Statements ELECTRONIC VENTRICULAR PACEMAKER PROLONGED QT INTERVAL Compared to ECG 03/01/2023 19:31:15 Prolonged QT interval now present Electronically Signed On 04-13-2023 12:16:33 CDT by Pola Ferrera M.D. [id number]
[2023-04-12 20:08] LABS: Alanine Aminotransferase 38 U/L (0-33); Albumin Level 3.2 g/dL (3.5-5.2); Alkaline Phosphatase 98 U/L (35-105); Anion Gap 28.6 (5-19); Aspartate Amino Transferase 53 U/L (0-32); Blood Urea Nitrogen 17 mg/dL (6-20); Carbon Dioxide 11 mmol/L (22-29); Chloride 101 mmol/L (98-107); Globulin 2.2 g/dL (1.3-4.6); Glucose 147 mg/dL (65-115); Osmolality Calculated 286 mOsm/kg (285-295); Potassium 4.6 mmol/L (3.5-5.1); Sodium 136 mmol/L (136-145); Total Bilirubin 0.6 mg/dL (0.15-1.2); Total Protein 5.4 g/dL (6.6-8.7)
[2023-04-12 20:11] LABS: Arterial Blood Gas Hematocrit 31.1 % (37-47); Base Excess ABG -19.5 mmol/L (-2.0-2.0); Blood Gas Allen Test Pos; Blood Gas Sample Site Radial, right; Blood Gas Sample Type Arterial; HCO3 ABG 9.3 mmol/L (22-26); Oxygen Device VENT
[2023-04-12 20:12] LABS: ABG PH Result 7.07 (7.35-7.45)
[2023-04-12] MEDS: sodium bicarbonate 1 mEq/mL SDV 50mL 50 MEQ IVP (20:35)
[2023-04-12] MEDS: DOBUTamine drip 500 MG/250 ML PREMIX 21.09 MG IV (20:43)
[2023-04-12] MEDS: EPINEPHrine 2.5 MG in sodium chloride 0.9% 250 ML 6.06 MG IV (20:49)
--- NOTE | 2023-04-12 20:52 | ED_ITS ---
HPI - CPR General: Chief Complaint: Shortness of Breath/Dyspnea Stated Complaint: RESP. DISTRESS Time Seen by Provider: 04/12/23 19:47 Limitations: altered mental status History of Present Illness: Ms Pulliam is a 53-year-old lady with complex past medical history well-known to the emergency department presenting to the emergency department for altered mental status and respiratory failure. History is limited by patient's mental state, she is unresponsive. Apparently patient has been short of breath and became unresponsive prior to arrival. Possible downtime up to 1 hour. EMS found the patient to be satting in the 60s on room air. They apparently had a normal blood pressure and normal glucose. Patient was ventilated with bag valve mask ventilations and a nasopharyngeal airway with oxygen sats to the 80s. Upon arrival patient is unresponsive in extremis and significantly ill appearing with abnormal respirations. History is limited by such. Review of Systems General: Reports: ROS unobtainable due to medical condition and ROS unobtainable due to mental status PFS ED PFSH: Medical History Acute hypokalemia Acute on chronic systolic heart failure Adenocarcinoma determined by biopsy of liver AICD discharge GERRI (acute kidney injury) Anemia Cardiogenic shock Chest pain Chest pain CHF (congestive heart failure) Chronic systolic (congestive) heart failure CKD (chronic kidney disease) Closed intertrochanteric fracture of left hip Defibrillator discharge Encounter for testing following appropriate discharge of implantable cardioverter-defibrillator (ICD) History of recurrent UTIs History of TIA (transient ischemic attack) HTN (hypertension) Hydronephrosis, left Hypertension Hypokalemia Hypokalemia ICD (implantable cardioverter-defibrillator) in place Idiopathic ventricular fibrillation Liver mass Macrocytic anemia Mass of right lobe of liver ~3.5 x 4 cm, indeterminant, hypodense, first noted 11/2021 Nicotine dependence, cigarettes, uncomplicated Non-ischemic cardiomyopathy Nonischemic cardiomyopathy Severe diffuse hypokinesia of the left ventricle with an ejection fraction of 15 to 20%. Right ventricular appears to be normal size and ejection fraction. Mild biatrial enlargement. Thickened mitral valve. Moderately severe mitral regurgitation. Mnlj-bf-[id number] tricuspid valve regurgitation. Thickened aortic valve. Compared to the study from 10/31/2022, ejection fraction appears to be declining Obstructive pyelonephritis (~11/2021) Oliguria Renal atrophy, left Syncope Urolithiasis Multi stone former. Complicated by at least 1 episode of obstructive pyelonephritis. Multiple procedures required to treat Ventricular tachycardia Weakness Surgical History Nephrostomy status S/P ureteral stent placement (~11/2021) Status post cholecystectomy Status post placement of cardiac pacemaker Family History Father , AT AGE 77 CAD (coronary artery disease) Cancer lung cancer Mother , AT AGE 60 Cancer OVARIAN Denies family history of Clotting disorder Anesthesia complication Bleeding disorder Social History Smoking and tobacco status: current every day smoker cigarettes Packs smoked per day: 0.5 Years cigarettes smoked: 45 Second hand smoke exposure: Yes Alcohol intake: current Substance/Drug Use: never Lives independently: Yes Marital status: service: No Current occupational status: disabled Current gender identity: Female Physical Exam Const: GENERAL APPEARANCE: ill appearing ORIENTATION/CONSCIOUSNESS: Yes pat ient obtunded HENMT: COMMON NORMALS: normocephalic and atraumatic HEAD & SCALP: normocephalic and atraumatic THROAT: posterior oropharynx normal OTHER: Nasopharyngeal airway in place Eye: COMMON NORMALS: conjunctivae normal CONJUNCTIVA: Yes conjunctivae normal SCLERA: sclerae normal OTHER: Abnormal lateral tracking eye movements. Neck/C-Spine: COMMON NORMALS: supple GENERAL: Yes trachea midline Resp: AUSCULTATION: rhonchi OTHER: Agonal respirations. Cardio: COMMON NORMALS: regular rhythm RATE: tachycardic RHYTHM: regular rhythm OTHER: Weak thready central pulses GI: COMMON NORMALS: Soft to palpation PALPATION: Yes Soft to palpation and No Tenderness to palpation present (GI) Extremity: GENERAL: Yes normal exam except as noted and No edema Neuro: SENSORIUM/ORIENTATION: Yes Orientation impaired and Yes obtunded (Unresponsive) Procedures Arterial Line Size (Gauge): 20 Technique Used: guide wire technique Post-Procedure: line sutured into place and dry sterile dressing placed Patient Tolerated Procedure: well and no complications Site: right and radial Intubation Laryngoscope: fiber optic video scope ET Tube Size: 8 ET Tube Uncuffed: No Tube Secured Depth (cm): 22 Tube Secured Location: teeth Tube Placement Confirmation: visualized tube passing through cords, equal breath sounds bilaterally and confirmation by capnometry Patient Tolerated Procedure: no complications Course Vital Signs: Vital signs: Vital Signs Temperature 97.3 F L 04/12/23 19:55 Pulse Rate 77 04/12/23 21:15 Respiratory Rate 14 04/12/23 20:17 Blood Pressure 85/61 04/12/23 21:15 Pulse Oximetry 99 04/12/23 21:15 Fraction of Inspir ed Oxygen 80 04/12/23 20:17 MDM - Cardiac Arrest/CPR Medical Decision Making 53-year-old lady with extensive past medical history involving multiple systems presenting in extremis with altered mental status and respiratory failure. Patient was not intubated prehospital and room air oxygen saturations in the 60s initially with only mild improvement with [id number] ventilations prior to arrival. Upon arrival patient is ill-appearing, irregular respiration pattern with no purposeful movements or response to stimuli. Bdn-[id number] ventilations were resumed and we attempted to obtain vital signs on the patient. Patient has thready central pulse correlating with telemetry. Unable to obtain blood pressure and peripheral oxygen saturation. Patient emergently intubated given likely contributing component of respiratory failure despite inability to optimize situation. She did not have a gag reflex and tolerated procedure without complication without response or medication. Patient subsequently developed loss of palpable pulses and CPR was started. Obyvn-mr-[id number] ultrasound demonstrates extremely poor ejection fraction though cardiac activity is organized. See crusher supervisor for medication details. Patient remained in PEA until resumption of palpable pulses. Norepinephrine ordered. Chest x-ray with satisfactory ET tube positioning. Arterial line inserted for accurate blood pressure monitoring. Peripheral IVs adequate at this time with consideration for later placement of central line if needed. Despite up titration of vasopressors patient subsequently developed hypotension and hypotensive loss of pulses with maintained PEA/cardiac activity. CPR resumed until palpable pulses achieved. See nursing documentation for medications. Dobutamine and epinephrine ordered. Labs notable for nonspecific leukocytosis, near baseline anemia. Metabolic panel with evidence of metabolic acidosis likely secondary to lactic acidosis. Minimal transaminitis similar to prior. ABG consistent with metabolic acidosis. Titrate FiO2 for SPO2. Patient remains critically ill with increasing pressor requirement. I updated the patient's family in a separate room. Previously patient had apparently expressed that she would not want extraordinary measures however this was not available to me at time of initial presentation. I discussed options. They desire to have patient admitted and reassess over the next 24 to 48 hours. I discussed the probable grave prognosis. The results of ED evaluation were discussed with the patient including plan for admission due to requirement for level of care not available if discharged to prevent significant worsening/deterioration. Patient agreeable with plan. Discussed with hospitalist service who was agreeable to admit patient. Subsequently hospitalist came to evaluate the patient. He had further discussion at bedside with the family seeing the patient in her current state and they desired cessation of supportive measures. Sadly I believe that this is completely reasonable. The likelihood of meaningful recovery is almost certainly none and would not address the profound underlying medical conditions of the patient. Report time of 2152. Most likely cause of is cardiogenic shock with respiratory failure and acute mental status change. The exact precipitating event remains unclear however patient has numerous comorbidities that could be contributing. Medical Records I reviewed the patient's medical records. Lab Data I reviewed the patient's lab results. 04/12/23 19:30 04/12/23 19:30 Radiology Impressions Chest X-Ray 04/12/23 19:48 IMPRESSION: 1. Interval development of mild interstitial pulmonary edema with left lower lobe atelectasis. 2. Haziness of the right and left hemithoraces, worse on the right. Findings are likely due to layering of bilateral pleural effusions as noted on the prior PET/CT scan. 3. Interval placement of an endotracheal tube with the tip 4.0 cm above the jigar. 4. Incidental/nonacute findings are listed in the report. Laboratory Results WBC 12.1 10^3/uL (4.0-10.0) H 04/12/23 19: RBC 3.46 10^6/uL (4.1-5.3) L 04/12/23 19: Hgb 10.5 g/dL (11.5-15.3) L 04/12/23 19: Hct 37.2 % (37.0-47.0) 04/12/23 19: MCV 107.5 fl (81-99) H D 04/12/23 19: MCH 30.3 pg (28.0-34.0) 04/12/23 19: MCHC 28.2 g/dL (30.0-36.0) L D 04/12/23 19: RDW 16.6 % (12.1-15.1) H 04/12/23 19:30 Plt Count 158 10^3/cmm (130-400) 04/12/23 19: MPV 11.8 fL (7.4-10.4) H 04/12/23 19:30 Neut % (Auto) 56.9 % 04/12/23 19: Lymph % (Auto) 35.2 % 04/12/23 19:30 [place] % (Auto) 6.4 % 04/12/23 19: Eos % (Auto) 0.2 % 04/12/23 19: Baso % (Auto) 0.2 % 04/12/23 19: Neut # (Auto) 6.88 10^3/uL (1.8-7.7) 04/12/23 19: Lymph # (Auto) 4.3 10^3/uL (0.8-4.8) 04/12/23 19: [place] # (Auto) 0.8 10^3/uL (0.2-0.9) 04/12/23 19: Eos # (Auto) 0.0 10^3/uL (0.0-0.8) 04/12/23 19: Baso # (Auto) 0.0 10^3/uL (0.0-0.1) 04/12/23 19: Nucleated RBC % (auto) 0.2 % 04/12/23 19: Nucleated RBCs # 0.0 /100WBC 04/12/23 19:30 Specimen Type Arterial 04/12/23 20:00 Sample Site Radial, right 04/12/23 20:00 ABG pH 7.07 (7.35-7.45) L* 04/12/23 20:00 ABG pCO2 32.0 mmHg (35-45) L 04/12/23 20:00 ABG pO2 211.0 mmHg (80.0-100.0) H 04/12/23 20:00 ABG HCO3 9.3 mmol/L (22-26) L 04/12/23 20:00 ABG Base Excess -19.5 mmol/L (-2.0-2.0) L 04/12/23 20:00 Michi Test Pos 04/12/23 20:00 Hematocrit 31.1 % (37-47) L 04/12/23 20:00 O2 Delivery Device Vent 04/12/23 20:00 FiO2 100.0 % 04/12/23 20:00 PEEP 8.0 cmH20 04/12/23 20:00 Linen Supervisor ID Rubin 04/12/23 20:00 Sodium 136 mmol/L (136-145) 04/12/23 19:30 Potassium 4.6 mmol/L (3.5-5.1) 04/12/23 19:30 Chloride 101 mmol/L (98-107) 04/12/23 19:30 Carbon Dioxide 11 mmol/L (22-29) L 04/12/23 19:30 Anion Gap 28.6 (5-19) H 04/12/23 19:30 BUN 17 mg/dL (6-20) 04/12/23 19:30 Creatinine 1.2 mg/dL (0.5-0.9) H 04/12/23 19:30 GFR Calculation 47.0 mL/min (90-130) L 04/12/23 19:30 Glucose 147 mg/dL (65-115) H 04/12/23 19:30 POC Glucose 137 mg/dL (70-110) H 04/12/23 19:34 Calculated Osmolality 286 mOsm/kg (285-295) 04/12/23 19:30 Calcium 8.0 mg/dL (8.5-10.5) L 04/12/23 19:30 Magnesium 2.0 mg/dL (1.7-2.3) 04/12/23 19:30 Total Bilirubin 0.6 mg/dL (0.15-1.2) 04/12/23 19:30 AST 53 U/L (0-32) H 04/12/23 19:30 ALT 38 U/L (0-33) H 04/12/23 19:30 Alkaline Phosphatase 98 U/L (35-105) 04/12/23 19:30 Creatine Kinase 102 U/L (26-192) 04/12/23 19:30 Troponin T Baseline 150 ng/L (0-10) H* 04/12/23 19:30 Total Protein 5.4 g/dL (6.6-8.7) L 04/12/23 19:30 Albumin 3.2 g/dL (3.5-5.2) L 04/12/23 19:30 Globulin 2.2 g/dL (1.3-4.6) 04/12/23 19:30 Critical Care Time Critical Care Time: Critical Care Time: Yes Total Critical Care Time: 115 Attestation: Due to a high probability of clinically significant, possibly life threatening deterioration, the patient required my highest level of attention and preparedness to intervene emergently and I personally spent this critical care time directly and personally managing the patient. This critical care time included obtaining a history; examining the patient; pulse oximetry; ordering and review of laboratory and imaging studies; arranging urgent treatment with development of a management plan; evaluation of patient's response to treatment; frequent reassessment; and, discussions with other providers as applicable. It was exclusive of separately billable procedures. Primary system involved is cardiac. Discharge Plan Discharge Patient Disposition: Admitted As Inpatient Clinical Impression: Cardiogenic shock, Cardiac arrest, Respiratory failure, Acute alteration in mental status, Metabolic acidosis, Leukocytosis, Chronic anemia, Creatinine elevation, Transaminitis Condition: Critical Coding Level of Care Code ED Fitness Studies Teacher for Wesley Herrera
[2023-04-12 21:02] LABS: Glucose Point of Care 137 mg/dL (70-110)
[2023-04-12 21:38] LABS: Creatine Phosphokinase 102 U/L (26-192)
--- NOTE | 2023-04-12 21:41 | PC.NURSE ---
Dr. Gonzales at bedside with family. Family decided to terminally extubate patient at this time and provide comfort measures. ET tube removed by RT at 2137. Pacemaker/Defibrillator magnet applied to patient at 2137 to shut device down per Dr. Gonzales.
[2023-04-12 21:45] LABS: Troponin(5th) Baseline 150 ng/L (0-10)
[2023-04-12] MEDS: morphine 4 mg/mL SDV 1 mL IVP (21:47)
--- NOTE | 2023-04-12 21:59 | PC.NURSE ---
BLADE Mohamud and Anselmo Hinojosa RN listened to cardiac sounds which were absent and patient pulseless @ 2153. Time of called at 2153.
--- NOTE | 2023-04-12 22:00 | PC.NURSE ---
Patient sister (next of kin), Jana Avalos, requested [facility] home for patient body. Release form signed @ [id number].
--- NOTE | 2023-04-12 22:10 | PC.NURSE ---
1934 - Patient pulseless, CPR started, POC glucose 137, epinephrine 1 mg IVP given. 1938 - pulse check found PEA, CPR resumed, epinephrine 1 mg IVP given 1939 - calcium chloride 1 gram IVP given, 2 amps of bicarb 50 mEq IVP given 1940 - pulse check found PEA, CPR resumed, epinephrine 1 mg IVP given 1942 - Narcan 0.4 mg IVP given 1943 - Pulse check found weak pulse, paced rhythm BP 157/98 1944 - Norepinephrine drip started @ 8 mcg, calcium chloride 1 gram IVP given, normal saline 0.9% 1000mL bolus given, vecoronium 7 mg IVP given
--- NOTE | 2023-04-12 22:25 | PC.NURSE ---
2033 - Patient pulseless, CPR started 2034 - epinephrine 1 mg IVP given, 1 amp bicarb ivp given 2035 - Pulse check, no pulse detected 2037 - pulse check, weak pulse, paced rhythm, BP 98/69 2039 - dobutamine drip started at 10 mcg/kg/min
--- NOTE | 2023-04-12 22:30 | PC.NURSE ---
2032 - push dose epi [address] Borden 2033 - push dose epi [address] by [address]. Borden
--- NOTE | 2023-04-12 23:32 | PC.NURSE ---
body taken to [facility] with Machelle Bryant RN.
--- NOTE | 2023-04-13 00:06 | PC.NURSE ---
Mary Ann from [facility] called and the patient is not a candidate for donation but am still waiting to hear from [facility]. [facility] called and the patient is a candidate and the pt has consented to donation. They will be here at 0230 to pick up operator patient and asked for saline drops to be instilled in her eye and head propped up and close eyes.
--- NOTE | 2023-04-13 05:49 | W.PM.EVENTAC ---
Event Note Event Note: Hospice team was requested to admit the patient, patient was examined in the ICU, she was on 3 vasopressors, intubated, she was off sedation Pupils were dilated and fixed Patient was not showing meaningful neurological response to painful stimuli Family meeting was conducted, family was brought in the room, they decided to continue with hospice care and terminally extubate her and turn off her pacemaker this was conveyed to the ER physician and the nurse, patient was terminally extubated patient within few minutes of extubation, in the ER room 11
--- NOTE | 2023-04-13 05:53 | PC.NURSE ---
Body has been released to [facility], they came to pick her up at 0545.
== END 2023-04-12 23:34 | disposition admitted as inpatient to this hospital (09) ==
PROVIDERS: Emergency Provider Emergency Medicine; PCP Physician Assistant
DX: R41.82 Altered mental status, unspecified (principal); J96.90 Respiratory failure, unspecified, unspecified whether with hypoxia or hypercapnia; I46.9 Cardiac arrest, cause unspecified; R57.0 Cardiogenic shock; F17.210 Nicotine dependence, cigarettes, uncomplicated; E87.20 Acidosis, unspecified; D64.9 Anemia, unspecified; D72.829 Elevated white blood cell count, unspecified; R79.89 Other specified abnormal findings of blood chemistry; R74.01 Elevation of levels of liver transaminase levels
CPT/HCPCS: 31500; 36416; 36600; 36620; 71045; 80053; 82550; 82803; 82962; 83735; 84484; 85025; 93005; 96365; 96366; 96367; 96375; 99291; J0171; J1250; J2270; J2310; J3490; J7050; J7060